=== PATIENT | female | born 1960 | race Caucasian/White ===

== ENCOUNTER 2016-05-14 16:23 | Emergency (ER) | payer OTHER ==
[~2016-05-14] VITALS: Ht 154.9 cm; Wt 83.1 kg
[~2016-05-14 16:23] MED LIST: ALBUAER3 INH; AMLO2.5T PO; CARV12.52 PO; HYDR-3533 PO; LORA-373 PO; MACR100C2 PO; METH750T PO; NAPR220T95 PO; PROZ20CA11 PO
[2016-05-14 16:29] VITALS: BP 173/110; PULSE 90; RESP 16; TEMP 98.1; O2SAT 99
--- NOTE | 2016-05-14 17:26 | PD ---
HPI Chief Complaint: Nosebleed Time Seen by Provider: 16:37 Travel History International Travel<30 days: No Contact w/Intl Traveler<30days: No Traveled to known affect area: No History of Present Illness HPI The patient is a 56-year-old female who presents to the emergency department for nose bleed. The patient states her nose started bleeding earlier today out of the right naris. The patient was unable to control her bleeding with direct pressure and presents emergency department for persistent bleeding. The patient does have a prior history of epistaxis with one previous episode of nasal packing. She also has a history of thrombocytopenia and was followed by a manager furniture, but was never placed on medications. Her last platelet count was approximately 100,000. She denies any bruising elsewhere or bleeding from the gums. She denies any direct trauma to the nose and denies picking the nose prior to the bleeding. She denies any dizziness, lightheadedness, but does note mild anxiety. She also states that elevated blood pressure tends to be a precipitating factor for her nosebleeds. PFSH Past Medical History Hx Anticoagulant Therapy: No Anemia: Yes (Required platelet tx) Arthritis: Yes Asthma: Yes Anxiety: Yes Cancer: Yes (Cervical) Cardiac Catheterization: Yes (2016) Cardiovascular Problems: Yes (htn on meds) High Cholesterol: Yes Chest Pain: Yes COPD: Yes Coronary Artery Disease: Yes Diminished Hearing: No Gastrointestinal Disorders: Yes (recent colonoscopy and endoscopy) GERD: Yes Genitourinary: Yes (hx of kidney infection) Hypertension: Yes Respiratory: Yes (COPD) Immunizations Current: Yes Pneumonia: Yes Sleep Apnea: Yes (NO CPAP USE) Menopausal: Yes : 2 Para: 2 Dilation and Curettage (D&C): Yes Tubal Ligation: Yes Past Surgical History Section: Yes (X's 2) Cholecystectomy: Yes Eye Surgery: Yes (BILATERAL LASIK: 2016) Gynecologic Surgery: Yes (Cervical CA) Hysterectomy: Yes (Partial) Oral Surgery: Yes (fess surgery of the nose) Tonsillectomy: Yes Other Surgery: Yes (Cyst on neck, bone marrow bx, FESS SURGERY OF NOSE) Social History Alcohol Use: Yes (RARELY) Tobacco Use: No (QUIT: 2006) Substance Use: No Allergies-Medications (Allergen,Severity, Reaction): Coded Allergies: Amlodipine (Verified Allergy, Severe, Hives, 05/14/16) Latex (Verified Allergy, Severe, Rash, 05/14/16) Sulfa (Verified Adverse Reaction, Severe, Vomiting, cramps, 05/14/16) Reported Meds & Prescriptions Reported Meds & Active Scripts Active Reported Methocarbamol 750 Mg Tab 750 Mg PO TID Aleve (Naproxen Sodium) 220 Mg Tab 220 Mg PO BID PRN Amlodipine (Amlodipine Besylate) 2.5 Mg Tab 2.5 Mg PO DAILY Proair Hfa 8.5 GM Inh (Albuterol Sulfate) 90 Mcg/Act Aer 2 Puff INH Q4HR PRN 108 mcg/actuation Lortab (Hydrocodone-Acetaminophen) 5-325 Mg Tab 1 Tab PO Q6H PRN Prozac (Fluoxetine HCl) 20 Mg Cap 20 Mg PO DAILY Lorazepam 0.5 Mg Tab 0.5 Mg PO Q6H PRN Carvedilol 12.5 Mg Tab 12.5 Mg PO DAILY Review of Systems Except as stated in HPI: all other systems reviewed are Neg HENT: Positive: Nosebleed, No: Lightheadedness Cardiovascular: No: Palpitations, Tachycardia Respiratory: No: Shortness of Breath Gastrointestinal: No: Nausea, Vomiting Neurologic: No: Dizziness Physical Exam Narrative GENERAL: Awake, alert, nontoxic-appearing 56-year-old female who appears her stated age and is in no acute respiratory distress. SKIN: Warm and dry. HEAD: Atraumatic. Normocephalic. EYES: Pupils equal and round. No scleral icterus. No injection or drainage. ENT: There is bleeding out of the right nostril, unable to identify the area of bleeding. Visible dry blood in the posterior oropharynx but no visible active bleeding in the posterior oropharynx. NECK: Trachea midline. No JVD. CARDIOVASCULAR: Regular rate and rhythm. No murmur appreciated. RESPIRATORY: No accessory muscle use. Clear to auscultation. Breath sounds equal bilaterally. MUSCULOSKELETAL: No obvious deformities. No clubbing. No cyanosis. No edema. NEUROLOGICAL: Awake and alert. No obvious cranial nerve deficits. Motor grossly within normal limits. Normal speech. PSYCHIATRIC: Appropriate mood and affect; insight and judgment normal. Data Data Last Documented VS Vital Signs Date Time Temp Pulse Resp B/P Pulse Ox O2 Delivery O2 Flow Rate FiO2 05/14/16 18:17 78 20 127/78 96 05/14/16 16:29 98.1 Orders Clonidine (Catapres) (05/14/16 17:30) Phenylephrine 1% Diaz Spr (Neosynephrine (05/14/16 17:45) Phenylephrine 0.5% Diaz Spr (Neosynephrin (05/14/16 17:45) MDM Medical Decision Making Medical Screen Exam Complete: Yes Emergency Medical Condition: Yes Medical Record Reviewed: Yes Differential Diagnosis Differential diagnosis includes epistaxis, anterior nosebleed, posterior nosebleed, hypertension, thrombocytopenia, septal perforation, coagulopathy. Narrative Course The patient was advised to blow her nose and then direct pressure was applied for 20 minutes using 2 tongue depressors that were taped together. The patient' s nosebleed was reevaluated 20 minutes later, she had mild bleeding prior to the 20 minutes, however, after the initial pressure 20 minutes, there is no visible bleeding. The patient was then monitored once again in the emergency department. She was advised to apply ice to the roof of the mouth. The patient 's blood pressure was elevated, 170s over 100s, therefore, patient was administered clonidine 0.1 mg orally. The patient's blood pressure came down 127/81. The patient continued to have bleeding, therefore, she blew her nose once again, Jeff-Synephrine was sprayed into the right nostril, direct pressure was held for another 20 minutes. Upon reevaluation there is no further bleeding. The patient was then evaluated for another 20 minutes and there is no further bleeding. The patient be discharged home. She is advised to hold direct pressure for 20 minutes apply ice to the affected area. Bleeding returns and if that is unable to stop the bleeding, to return to the emergency department. The patient agrees and understands. Diagnosis Primary Impression: Anterior epistaxis Patient Instructions: General Instructions Additional Instructions: If bleeding recurs, apply direct pressure for 20 minutes, if that does not stop the bleeding, return to the emergency department. Follow-up with her primary physician. Continue current medications at home as previously directed. Med/Other Pt SpecificInfo: No Change to Meds Disposition: 01 DISCHARGE HOME Condition: Stable Boni Loya MD May 14, 2016 17:26
[2016-05-14 17:29] VITALS: BP 171/112; PULSE 96; RESP 20; O2SAT 96
[2016-05-14] MEDS ORDERED: cloNIDine HCL 0.1 MG TAB PO ONE (17:30)
[2016-05-14] MEDS ORDERED: PHENYLEPHRINE HCL 1% NASAL SPRAY 15 ML BTL NASAL ONE (17:45)
[2016-05-14] MEDS ORDERED: PHENYLEPHRINE HCL 0.5% NASAL SPRAY 15 ML BTL NASAL ONE (17:45)
[2016-05-14 18:17] VITALS: BP 127/78; PULSE 78; RESP 20; O2SAT 96
== END 2016-05-14 18:42 | disposition home or self-care (01) ==
LOC: PHED 16:23
DX: R04.0 Epistaxis (principal); I10 Essential (primary) hypertension; E78.00 Pure hypercholesterolemia, unspecified; J44.9 Chronic obstructive pulmonary disease, unspecified
CPT/HCPCS: 99283

== ENCOUNTER 2016-07-30 02:11 | Emergency (ER) | payer OTHER ==
[~2016-07-30] VITALS: Ht 154.9 cm; Wt 85.3 kg
[~2016-07-30 02:11] MED LIST changes: -MACR100C2 PO
[2016-07-30 02:16] VITALS: BP 142/97; PULSE 82; TEMP 98.3; O2SAT 98
[2016-07-30 03:00] VITALS: BP 138/79; PULSE 65; RESP 20; O2SAT 98
[2016-07-30] MEDS ORDERED: ASPIRIN 81 MG CHEW TAB PO ONE (03:30)
[2016-07-30] MEDS ORDERED: SODIUM CHLORIDE 0.9% FLUSH 10 ML FLUSH IVF PRN (03:30)
[2016-07-30] MEDS ORDERED: PANTOPRAZOLE SODIUM 40 MG VIAL IV PUSH ONE (03:30)
[2016-07-30 03:53] LABS: BASOPHIL % 0.2 % (0.0-2.0); EOSINOPHIL % 0.3 % (0.0-4.0); HEMATOCRIT 28.5 % (35.0-46.0); HEMO FLAGS DIFF FINAL; LYMPH % 30.3 % (9.0-44.0); LYMPHOCYTE # 1.6 TH/MM3 (1.0-4.8); MEAN CELL VOLUME 91.2 FL (80.0-100.0); MEAN CORPUSCULAR HEMOGLOBIN 30.2 PG (27.0-34.0); MEAN CORPUSCULAR HGB CONC 33.1 % (32.0-36.0); MONO % 15.7 % (0.0-8.0); NEUT % 53.5 % (16.0-70.0); PLATELET COUNT 179 TH/MM3 (150-450); RED BLOOD COUNT 3.12 MIL/MM3 (4.00-5.30); RED CELL DISTRIBUTION WIDTH 22.3 % (11.6-17.2); WHITE BLOOD COUNT 5.4 TH/MM3 (4.0-11.0)
--- NOTE | 2016-07-30 03:56 | RADHPO ---
EXAM DATE/TIME: 07/30/2016 03:48 [facility] COMPARISON: CHEST SINGLE AP, April 16, 2016, 6:09. INDICATIONS : Chest pain for 5 hours MEDICAL HISTORY : Chronic obstructive pulmonary disease. SURGICAL HISTORY : None. ENCOUNTER: Initial ACUITY: 1 day PAIN SCORE: 7/10 LOCATION: Left chest FINDINGS: A single view of the chest demonstrates the lungs to be symmetrically aerated without evidence of mas s, infiltrate or effusion. The cardiomediastinal contours are unremarkable. Osseous structures are intact. CONCLUSION: No acute disease. Mt Vance MD on July 30, 2016 at 3:55 Board Certified Radiologist. This report was verified electronically.
[2016-07-30 04:00] VITALS: BP 140/77; PULSE 66; RESP 20; O2SAT 98
[2016-07-30 04:00] LABS: CHLORIDE 104 MEQ/L (98-107); POTASSIUM 3.9 MEQ/L (3.5-5.1); SODIUM (NA) 141 MEQ/L (136-145)
[2016-07-30 04:01] VITALS: BP_SYST 140; BP_DIAS 76; BP_DIAS 77; BP_DIAS 82; PULSE 59; PULSE 82; RESP 20; O2SAT 98
--- NOTE | 2016-07-30 04:01 | PD ---
HPI Chief Complaint: Chest Pain Time Seen by Provider: 03:28 Travel History International Travel<30 days: No Contact w/Intl Traveler<30days: No Traveled to known affect area: No History of Present Illness HPI 56-year-old female presents to the emergency department by private transportation for complaint of 3 hours of chest pain prior to arrival to the emergency department. Patient states at home her pain was 7-8/10 in intensity currently is 5/8 intensity. Patient also noted some referred pain to her left hand. Patient reportedly had an abnormal 12/2015 and underwent cardiac catheterization by Dr. Tello. With reportedly normal coronary vessels. Patient does have hypertension and dyslipidemia as well as history of lupus and thrombocytopenia. Patient is a nonsmoker. No report of diabetes. No report of family history of premature onset heart disease. Patient took no medications prior to arrival to the emergency department. Patient unable to identify exacerbating or alleviating factors. PFSH Past Medical History Narrative Medical Anemia arthritis asthma hypertension dyslipidemia thrombocytopenia and lupus cervical cancer status post cervical ablation sleep apnea tube ligation Hx Anticoagulant Therapy: No Anemia: Yes (Required platelet tx) Arthritis: Yes Asthma: Yes Anxiety: Yes Cancer: Yes (Cervical) Cardiac Catheterization: Yes (2015) Cardiovascular Problems: Yes (htn on meds) High Cholesterol: Yes Chest Pain: Yes COPD: Yes Coronary Artery Disease: Yes Diminished Hearing: No Gastrointestinal Disorders: Yes (recent colonoscopy and endoscopy) GERD: Yes Genitourinary: Yes (hx of kidney infection) Hypertension: Yes Respiratory: Yes (COPD) Immunizations Current: Yes Pneumonia: Yes Sleep Apnea: Yes (NO CPAP USE) Menopausal: Yes : 2 Para: 2 Dilation and Curettage (D&C): Yes Tubal Ligation: Yes Past Surgical History Section: Yes (X's 2) Cholecystectomy: Yes Eye Surgery: Yes (BILATERAL LASIK: 2016) Gynecologic Surgery: Yes (Cervical CA) Hysterectomy: Yes (Partial) Oral Surgery: Yes (fess surgery of the nose) Tonsillectomy: Yes Other Surgery: Yes (Cyst on neck, bone marrow bx, FESS SURGERY OF NOSE) Social History Alcohol Use: Yes (RARELY) Tobacco Use: No (QUIT: 2005) Substance Use: No Allergies-Medications (Allergen,Severity, Reaction): Coded Allergies: Amlodipine (Verified Allergy, Severe, Hives, 07/30/16) PATIENT STATES SHE IS NOT ALLERGIC-TAKES THIS MED DAILY Latex (Verified Allergy, Severe, Rash, 07/30/16) Sulfa (Verified Adverse Reaction, Severe, Vomiting, cramps, 07/30/16) Reported Meds & Prescriptions Reported Meds & Active Scripts Active Reported Melatonin 5 Mg Tab 5 Mg PO HS Folate (Folic Acid) 1 Mg Tab 1 Mg PO DAILY Methotrexate 2.5 Mg Tab 2.5 Mg PO 6 DAYS A WEEK Prednisone 2.5 Mg Tab 2.5 Mg PO BID Losartan-Hydrochlorothiazide 100-25 Mg Tab 1 Tab PO DAILY Methocarbamol 750 Mg Tab 750 Mg PO TID Aleve (Naproxen Sodium) 220 Mg Tab 220 Mg PO BID PRN Amlodipine (Amlodipine Besylate) 2.5 Mg Tab 2.5 Mg PO DAILY Proair Hfa 8.5 GM Inh (Albuterol Sulfate) 90 Mcg/Act Aer 2 Puff INH Q4HR PRN 108 mcg/actuation Carvedilol 12.5 Mg Tab 3.125 Mg PO DAILY Review of Systems Except as stated in HPI: all other systems reviewed are Neg Eyes: No: Visual changes HENT: No: Headaches, Neck Pain Cardiovascular: Positive: Chest Pain or Discomfort Respiratory: No: Shortness of Breath Gastrointestinal: No: Vomiting, Abdominal Pain Genitourinary: No: Dysuria, Flank Pain Musculoskeletal: No: Myalgias, Arthralgias Skin: No Rash Neurologic: No: Weakness Psychiatric: No: Anxiety Hematologic/Lymphatic: No: Easy Bruising Physical Exam Narrative GENERAL: Well-developed well-nourished female in no acute distress no respiratory distress SKIN: Warm and dry. HEAD: Normocephalic. EYES: No scleral icterus. No injection or drainage. NECK: Supple, trachea midline. No JVD or lymphadenopathy. CARDIOVASCULAR: Regular rate and rhythm without murmurs, gallops, or rubs. Chest wall: Tender to palpation, no ecchymosis no induration no erythema no increased warmth no rib point tenderness no vesicular rash. RESPIRATORY: Breath sounds equal bilaterally. No accessory muscle use. GASTROINTESTINAL: Abdomen soft, non-tender, nondistended. MUSCULOSKELETAL: No cyanosis, or edema. BACK: Nontender without obvious deformity. No CVA tenderness. Data Data Last Documented VS Vital Signs Date Time Temp Pulse Resp B/P Pulse Ox O2 Delivery O2 Flow Rate FiO2 07/30/16 04:39 59 20 98 07/30/16 04:01 140/76 2 07/30/16 04:01 Nasal Cannula 07/30/16 02:16 98.3 Orders Basic Metabolic Panel (Bmp) (07/30/16 03:28) Ckmb (Isoenzyme) Profile (07/30/16 03:28) Complete Blood Count With Diff (07/30/16 03:28) Magnesium (Mg) (07/30/16 03:28) Prothrombin Time / Inr (Pt) (07/30/16 03:28) Act Partial Throm Time (Ptt) (07/30/16 03:28) Troponin I (07/30/16 03:28) Chest, Single Ap (07/30/16 03:28) Ecg Monitoring (07/30/16 03:28) Bilateral Bp Monitoring (07/30/16 03:28) Iv Access Insert/Monitor (07/30/16 03:28) Oximetry (07/30/16 03:28) Oxygen Administration (07/30/16 03:28) Aspirin Chew (Aspirin Chew) (07/30/16 03:30) Sodium Chloride 0.9% Flush (Ns Flush) (07/30/16 03:30) Pantoprazole Inj (Protonix Inj) (07/30/16 03:30) D-Dimer (07/30/16 03:45) Ct Pulmonary Angiogram (07/30/16 ) Iohexol 350 Inj (Omnipaque 350 Inj) (07/30/16 05:18) Labs Laboratory Tests Test 07/30/16 03:45 White Blood Count 5.4 TH/MM3 Red Blood Count 3.12 MIL/MM3 Hemoglobin 9.4 GM/DL Hematocrit 28.5 % Mean Corpuscular Volume 91.2 FL Mean Corpuscular Hemoglobin 30.2 PG Mean Corpuscular Hemoglobin 33.1 % Concent Red Cell Distribution Width 22.3 % Platelet Count 179 TH/MM3 Mean Platelet Volume 7.8 FL Neutrophils (%) (Auto) 53.5 % Lymphocytes (%) (Auto) 30.3 % Monocytes (%) (Auto) 15.7 % Eosinophils (%) (Auto) 0.3 % Basophils (%) (Auto) 0.2 % Neutrophils # (Auto) 3.0 TH/MM3 Lymphocytes # (Auto) 1.6 TH/MM3 Monocytes # (Auto) 0.8 TH/MM3 Eosinophils # (Auto) 0.0 TH/MM3 Basophils # (Auto) 0.0 TH/MM3 CBC Comment DIFF FINAL Differential Comment Prothrombin Time 9.7 SEC Prothromb Time International 0.9 RATIO Ratio Activated Partial 22.2 SEC Thromboplast Time D-Dimer Quantitative (PE/DVT) 3.43 MG/L FEU Sodium Level 141 MEQ/L Potassium Level 3.9 MEQ/L Chloride Level 104 MEQ/L Carbon Dioxide Level 29.2 MEQ/L Anion Gap 8 MEQ/L Blood Urea Nitrogen 20 MG/DL Creatinine 0.71 MG/DL Estimat Glomerular Filtration 85 ML/MIN Rate Random Glucose 111 MG/DL Calcium Level 8.6 MG/DL Magnesium Level 2.4 MG/DL Total Creatine Kinase 33 U/L Troponin I LESS THAN 0.02 NG/ML MDM Medical Decision Making Medical Screen Exam Complete: Yes Emergency Medical Condition: Yes Medical Record Reviewed: Yes Interpretation(s) Last Impressions Chest X-Ray 07/30/16 0328 Signed Impressions: Service Date/Time: July 03:48 - CONCLUSION: No acute disease. Mt Vance MD EKG: Normal sinus rhythm rate 67 incomplete right bundle branch block nonspecific anterior septal/septal T wave changes; no ST elevation; EKG unchanged from 04/16/16 Vital Signs Date Time Temp Pulse Resp B/P Pulse Ox O2 Delivery O2 Flow Rate FiO2 07/30/16 04:01 59 20 140/77 98 Nasal Cannula 2 140/82 07/30/16 02:16 98.3 82 142/97 98 CK: 33, not elevated; troponin I: less than 0.02, not elevated CT Pulmonary angiogram: no PE FINDINGS: PULMONARY ARTERIES: No filling defects are seen in the pulmonary arteries through the segmental level. LUNGS: There is no consolidation or pneumothorax . No concerning pulmonary nodule is visualized. PLEURAE: There is no pleural thickening or pleural effusion. MEDIASTINUM: There is good visualization of the great vessels of the middle mediastinum. No evidence of mediastinal or hilar adenopathy/mass. MUSCULOSKELETAL: Within normal limits for patient age. MISCELLANEOUS: The visualized upper abdominal organs demonstrate no acute abnormality. CONCLUSION: Normal examination. Mt Vance MD on July 30, 2016 at 5:41 Board Certified Radiologist. This report was verified electronically. Differential Diagnosis Chest pain, atypical chest pain, ACS, myocardial infarction, esophageal spasm, PE, biliary colic Narrative Course IV access obtained EKG performed which reveals incomplete right bundle branch block no acute ST elevation nonspecific T-wave inversion septally; review of medical records indicates patient underwent 12/16/[address] Tello which revealed no coronary vessel disease. Patient did receive aspirin 162 mg by mouth as well as Protonix 40 mg. Specimens collected and sent for resulting. EKG shows no acute injury pattern change; CBC with automated differential shows anemia hemoglobin 9.4 however patient with history of thrombocytopenia, platelet count is in normal range and total white cell count is also within normal limits; Coagulation studies also within normal limits. At 5:20 AM patient has returned from CT; results pending At 5:56 AM patient feels she feels clinically improved his pain is resolved patient has been ambulatory to the bathroom without symptoms; CT pulmonary injury gram is negative for acute process and negative for pulmonary embolism. Patient is stable at this time for outpatient management and is desirous of being discharged to home. Critical Care Narrative Aggregate critical care time was 35 minutes. Time to perform other separately billable procedures was not included in the critical care time. My time did not include minutes spent treating any other patients simultaneously or on activities that did not directly contribute to the patient's treatment. The services I provided to this patient were to treat and/or prevent clinically significant deterioration that could result in: Myocardial infarction, arrhythmia, cardiogenic shock, failure I provided critical care services requiring my management, as noted below: Chart data review, documentation time, medication orders and management, vital sign assessments/reviewing monitor data, ordering and reviewing lab tests, ordering and interpreting/reviewing x-rays and diagnostic studies, care of the patient and discussion of the patient with the admitting physicians. Diagnosis Primary Impression: Atypical chest pain Referrals: Primary Care Physician call for appointment Patient Instructions: General Instructions Additional Instructions: Increase fluid hydration Take acetaminophen/Tylenol as needed for fever 100.4F or greater or for pain Follow-up with your primary care provider call office in a.m. to schedule follow -up appointment Return to the emergency department for any concerns or change in condition Med/Other Pt SpecificInfo: No Change to Meds Disposition: 01 DISCHARGE HOME Condition: Stable Smitha Leigh MD Jul 30, 2016 04:01
[2016-07-30 04:04] LABS: ANION GAP 8 MEQ/L (5-15); BICARBONATE 29.2 MEQ/L (21.0-32.0); BLOOD UREA NITROGEN 20 MG/DL (7-18); MAGNESIUM 2.4 MG/DL (1.5-2.5)
[2016-07-30 04:05] LABS: APTT (PATIENT) 22.2 SEC (24.3-30.1); INTERNATIONAL NORMALIZED RATIO 0.9 RATIO; PROTHROMBIN TIME - PATIENT 9.7 SEC (9.8-11.6)
[2016-07-30 04:07] LABS: GLOMERULAR FILTRATION RATE 85 ML/MIN (>89)
[2016-07-30 04:17] LABS: CREATINE KINASE 33 U/L (26-192)
[2016-07-30] MEDS ORDERED: METH2.5T PO (04:19)
[2016-07-30] MEDS ORDERED: PRED2.5T PO (04:19)
[2016-07-30] MEDS ORDERED: LOSA100T2 PO (04:19)
[2016-07-30] MEDS ORDERED: MELA5TAB15 PO (04:37)
[2016-07-30] MEDS ORDERED: FOLI1TAB4 PO (04:37)
[2016-07-30 05:00] VITALS: BP 140/81; PULSE 68; RESP 20
[2016-07-30] MEDS ORDERED: IOHEXOL 350 MG/ML 10 ML VIAL (for RAD DIAG) IV ONE (05:18)
--- NOTE | 2016-07-30 05:43 | RADHPO ---
EXAM DATE/TIME: 07/30/2016 05:03 [facility] COMPARISON: CT PULMONARY ANGIOGRAM, December 15, 2015, 18:52. INDICATIONS : Left side chest pain. IV CONTRAST: 65 cc Omnipaque 350 (iohexol) IV RADIATION DOSE: 20.98 CTDIvol (mGy) MEDICAL HISTORY : Hypertension. Chronic obstructive pulmonary disease. Coronary artery disease. SURGICAL HISTORY : None. ENCOUNTER: Initial ACUITY: 1 day PAIN SCALE: 7/10 LOCATION: Left chest TECHNIQUE: Volumetric scanning of the chest was performed using a pulmonary embolism protocol MIP images were re constructed. Using automated exposure control and adjustment of the mA and/or kV according to patien t size, radiation dose was kept as low as reasonably achievable to obtain optimal diagnostic quality images. FINDINGS: PULMONARY ARTERIES: No filling defects are seen in the pulmonary arteries through the segmental level. LUNGS: There is no consolidation or pneumothorax . No concerning pulmonary nodule is visualized. PLEURAE: There is no pleural thickening or pleural effusion. MEDIASTINUM: There is good visualization of the great vessels of the middle mediastinum. No evidence of mediastin al or hilar adenopathy/mass. MUSCULOSKELETAL: Within normal limits for patient age. MISCELLANEOUS: The visualized upper abdominal organs demonstrate no acute abnormality. CONCLUSION: Normal examination. Mt Vance MD on July 30, 2016 at 5:41 Board Certified Radiologist. This report was verified electronically.
[2016-07-30 06:43] VITALS: BP 124/73
--- NOTE | 2016-07-30 14:40 | EKG ---
Date Performed: 07/30/2016 Time Performed: 02:27:10 PTAGE: 56 years EKG: Sinus rhythm . Incomplete RBBB Anteroseptal T wave changes are nonspecific Borderline ECG Compared to prior tracin g no significant change PREVIOUS TRACING : 04/16/2016 05.56 DOCTOR: Al Rawls Interpretating Date/Time 07/30/2016 14:37:52
== END 2016-07-30 06:47 | disposition home or self-care (01) ==
LOC: PHED 02:11
DX: R07.89 Other chest pain (principal); I10 Essential (primary) hypertension; E78.00 Pure hypercholesterolemia, unspecified; J44.9 Chronic obstructive pulmonary disease, unspecified; Z85.41 Personal history of malignant neoplasm of cervix uteri; J45.909 Unspecified asthma, uncomplicated; M19.90 Unspecified osteoarthritis, unspecified site; M32.9 Systemic lupus erythematosus, unspecified
CPT/HCPCS: 71010; 71275; 80048; 82550; 83735; 84484; 85025; 85379; 85610; 85730; 93005; 96374; 99291; C9113; Q9967

== ENCOUNTER 2016-08-15 12:22 | Emergency (ER) | payer OTHER ==
[~2016-08-15] VITALS: Ht 154.9 cm; Wt 84.5 kg
[~2016-08-15 12:22] MED LIST changes: +FOLI1TAB4 PO; -HYDR-3533 PO; -LORA-373 PO; +LOSA100T2 PO; +MELA5TAB15 PO; +METH2.5T PO; +PRED2.5T PO; -PROZ20CA11 PO
[2016-08-15 12:26] VITALS: BP 156/102; PULSE 95; RESP 18; TEMP 97.8; O2SAT 98
[2016-08-15] MEDS ORDERED: AMLO5TAB2 PO (12:44)
[2016-08-15] MEDS ORDERED: DOXY100C PO (12:44)
[2016-08-15] MEDS ORDERED: METH4TAB6 PO (12:44)
[2016-08-15] MEDS ORDERED: [UNRECOGNIZED DRUG - CODE] (12:44)
[2016-08-15] MEDS ORDERED: [UNRECOGNIZED DRUG - OTHER] CHEW (12:44)
--- NOTE | 2016-08-15 12:57 | PD ---
HPI Chief Complaint: Respiratory Symptoms Time Seen by Provider: 12:45 Travel History International Travel<30 days: No Contact w/Intl Traveler<30days: No Traveled to known affect area: No History of Present Illness HPI This patient complains of cough and congestion and wheezing. She has history of COPD and uses inhalers at home. Quit smoking 12 years ago. She has a mild chronic cough but this cough is now producing yellow phlegm. She saw her doctor on Wednesday and is chcf through her doxycycline prescription. She takes prednisone 10 mg chronically for her rheumatoid arthritis. Severity is moderate. No alleviating factors. Duration one week PFSH Past Medical History Hx Anticoagulant Therapy: No Anemia: Yes Arthritis: Yes Asthma: Yes Anxiety: Yes Cancer: Yes Cardiac Catheterization: Yes (2015) Cardiovascular Problems: Yes High Cholesterol: Yes Chest Pain: Yes COPD: Yes Coronary Artery Disease: Yes Diminished Hearing: No Gastrointestinal Disorders: Yes GERD: Yes Genitourinary: Yes Hypertension: Yes Respiratory: Yes (COPD) Immunizations Current: Yes Pneumonia: Yes Sleep Apnea: Yes (NO CPAP USE) Tetanus Vaccination: < 5 Years ?: Not Menopausal: Yes : 2 Para: 2 Dilation and Curettage (D&C): Yes Tubal Ligation: Yes Past Surgical History Section: Yes (X's 2) Cholecystectomy: Yes Eye Surgery: Yes (BILATERAL LASIK: 2015) Gynecologic Surgery: Yes (CERVICAL CA) Hysterectomy: Yes (Partial) Oral Surgery: Yes (NASAL SURGERY) Tonsillectomy: Yes Other Surgery: Yes (CYST ON NECK) Social History Alcohol Use: No Tobacco Use: No (QUIT: 2005) Substance Use: No Allergies-Medications (Allergen,Severity, Reaction): Coded Allergies: Amlodipine (Verified Allergy, Severe, Hives, 08/15/16) PATIENT STATES SHE IS NOT ALLERGIC-TAKES THIS MED DAILY Latex (Verified Allergy, Severe, Rash, 08/15/16) Sulfa (Verified Adverse Reaction, Severe, Vomiting, cramps, 08/15/16) Reported Meds & Prescriptions Reported Meds & Active Scripts Active Reported C 1000 (Ascorbic Acid) 1,000 Mg Tab D3 Kids (Cholecalciferol) 400 Unit Chew 400 Units CHEW DAILY Methylprednisolone 4 Mg Tab 4 Mg PO DAILY Amlodipine (Amlodipine Besylate) 5 Mg Tab 5 Mg PO DAILY Doxycycline Hyclate 100 Mg Cap 100 Mg PO DAILY Melatonin 5 Mg Tab 5 Mg PO HS Folate (Folic Acid) 1 Mg Tab 1 Mg PO DAILY Methotrexate 2.5 Mg Tab 2.5 Mg PO 6 DAYS A WEEK Prednisone 2.5 Mg Tab 2.5 Mg PO BID Losartan-Hydrochlorothiazide 100-25 Mg Tab 1 Tab PO DAILY Aleve (Naproxen Sodium) 220 Mg Tab 220 Mg PO BID PRN Proair Hfa 8.5 GM Inh (Albuterol Sulfate) 90 Mcg/Act Aer 2 Puff INH Q4HR PRN 108 mcg/actuation Carvedilol 12.5 Mg Tab 3.125 Mg PO DAILY Review of Systems General / Constitutional: No: Fever Eyes: No: Visual changes HENT: No: Headaches Cardiovascular: No: Chest Pain or Discomfort Respiratory: Positive: Cough, Wheezing Gastrointestinal: No: Abdominal Pain Genitourinary: No: Dysuria Musculoskeletal: Positive: Arthralgias, No: Pain Skin: No Rash Neurologic: No: Weakness Psychiatric: No: Depression Endocrine: No: Polydipsia Hematologic/Lymphatic: No: Easy Bruising Physical Exam Narrative GENERAL: Well-nourished, well-developed patient in no apparent distress. SKIN: Focused skin assessment reveals no rash and nodules. Skin is Warm and dry. HEAD: Atraumatic. Normocephalic. EYES: Pupils equal and round. No scleral icterus. No injection or drainage. ENT: No nasal bleeding or discharge. Mucous membranes pink and moist. NECK: Trachea midline. No JVD. CARDIOVASCULAR: Regular rate and rhythm. No murmur appreciated. RESPIRATORY: No accessory muscle use. Diffuse expiratory wheezing and rhonchi. Breath sounds equal bilaterally. GASTROINTESTINAL: Abdomen soft, non-tender, nondistended. Hepatic and splenic margins not palpable. MUSCULOSKELETAL: No obvious deformities. No clubbing. No cyanosis. No edema. NEUROLOGICAL: Awake and alert. No obvious cranial nerve deficits. Motor grossly within normal limits. Normal speech. PSYCHIATRIC: Appropriate mood and affect; insight and judgment normal. Data Data Last Documented VS Vital Signs Date Time Temp Pulse Resp B/P Pulse Ox O2 Delivery O2 Flow Rate FiO2 08/15/16 13:05 98 21 08/15/16 12:26 97.8 95 18 156/102 Orders Albuterol-Ipratropium Neb (Duoneb Neb) (08/15/16 13:00) Albuterol-Ipratropium Neb (Duoneb Neb) (08/15/16 13:00) MDM Medical Decision Making Medical Screen Exam Complete: Yes Emergency Medical Condition: Yes Medical Record Reviewed: Yes Differential Diagnosis COPD, bronchitis, pneumonia Narrative Course I have reviewed the patient's electronic medical record. Patient was seen here 2 weeks ago for atypical chest pain This patient's presentation is consistent with an acute viral bronchitis or exacerbation of COPD I gave her 2 nebulizer treatments She is currently on antibiotics and daily prednisone She has inhalers to use and she has quit smoking Her saturations are excellent, 98% on room air. On recheck she feels improved Diagnosis Primary Impression: COPD with exacerbation Additional Instructions: The patient was advised to follow up with their physician and return if they worsen. Med/Other Pt SpecificInfo: Other Disposition: 01 DISCHARGE HOME Condition: Stable Lane Porter MD Aug 15, 2016 12:57
[2016-08-15] MEDS ORDERED: RESP: ALBUTEROL 2.5 MG/IPRATROPIUM 0.5 MG NEB (SCH) NEB ONE ×2 (13:00)
[2016-08-15 13:05] VITALS: O2SAT 98
== END 2016-08-15 13:55 | disposition home or self-care (01) ==
LOC: PHED 12:22
DX: J44.1 Chronic obstructive pulmonary disease with (acute) exacerbation (principal); J45.909 Unspecified asthma, uncomplicated; D64.9 Anemia, unspecified; I25.10 Atherosclerotic heart disease of native coronary artery without angina pectoris; K21.9 Gastro-esophageal reflux disease without esophagitis; M06.9 Rheumatoid arthritis, unspecified; I10 Essential (primary) hypertension; F41.9 Anxiety disorder, unspecified; E78.00 Pure hypercholesterolemia, unspecified
CPT/HCPCS: 94640; 94664; 99283

== ENCOUNTER 2016-11-16 06:51 | Inpatient (IN) | payer OTHER, MEDICARE ==
[~2016-11-16] VITALS: Ht 154.9 cm; Wt 86.5 kg
[~2016-11-16 06:51] MED LIST changes: -AMLO2.5T PO; +AMLO5TAB2 PO; +DOXY100C PO; +METH4TAB6 PO; -METH750T PO; +[UNRECOGNIZED DRUG - CODE]; +[UNRECOGNIZED DRUG - OTHER] CHEW
[2016-11-16 08:00] VITALS: BP 137/84; PULSE 68; RESP 18; TEMP 96.1; O2SAT 97
[2016-11-16] MEDS ORDERED: SODIUM CHLORIDE 0.9% FLUSH 10 ML FLUSH IVF PRN (08:00)
[2016-11-16] MEDS ORDERED: ALTEPLASE RECOMBINANT 2 MG VIAL IVF PRN (08:00)
[2016-11-16] MEDS ORDERED: ONDANSETRON INJ 8 MG in DEXTROSE 5% IN WATER INJ 50 ML IV PRN ×2 (09:00)
[2016-11-16] MEDS ORDERED: FOLI1TAB6 PO (09:04)
[2016-11-16 10:17] LABS: HEMATOCRIT 25.8 % (35.0-46.0); MEAN CELL VOLUME 89.5 FL (80.0-100.0); MEAN CORPUSCULAR HEMOGLOBIN 30.1 PG (27.0-34.0); MEAN CORPUSCULAR HGB CONC 33.7 % (32.0-36.0); PLATELET COUNT 67 TH/MM3 (150-450); RED BLOOD COUNT 2.88 MIL/MM3 (4.00-5.30); RED CELL DISTRIBUTION WIDTH 25.1 % (11.6-17.2); WHITE BLOOD COUNT 5.5 TH/MM3 (4.0-11.0)
[2016-11-16 10:25] LABS: HEMO FLAGS AUTO DIFF
[2016-11-16 10:26] LABS: ANION GAP 9 MEQ/L (5-15); AST (GOT) 39 U/L (15-37); BICARBONATE 26.6 MEQ/L (21.0-32.0); BLOOD UREA NITROGEN 13 MG/DL (7-18); CHLORIDE 104 MEQ/L (98-107); GLOMERULAR FILTRATION RATE 87 ML/MIN (>89); POTASSIUM 3.5 MEQ/L (3.5-5.1); SODIUM (NA) 140 MEQ/L (136-145)
[2016-11-16 10:28] LABS: ALT (GPT) 86 U/L (10-53)
[2016-11-16 10:31] LABS: ALKALINE PHOSPHATASE 75 U/L (45-117); TOTAL BILIRUBIN ADULT 1.2 MG/DL (0.2-1.0)
[2016-11-16 11:03] LABS: BANDS 4 % (0-6); BASOPHILS 1 % (0-2); EOSINOPHILS 2 % (0-4); NEUTROPHIL # MANUAL DIFF 4.7 TH/MM3 (1.8-7.7); POLYS (SEG NEUTROPHILS) 82 % (16-70); WBC DIFF SAMPLE 100
[2016-11-16 11:04] LABS: OVALOCYTES 1+ (NORMAL); PLATELET ESTIMATE SMEAR LOW (NORMAL); PLATELET MORPHOLOGY NORMAL (NORMAL); POLYCHROMASIA 2.7 % (0.0-1.9); SCAN/DIFF FINAL DIFF MANUAL; TEARDROP RBCS 1+ (NORMAL)
[2016-11-16 12:00] VITALS: BP 119/89; PULSE 73; RESP 18; TEMP 97; O2SAT 95
[2016-11-16] MEDS: GRANISETRON INJ 1 MG, DEXAMETHASONE INJ 20 MG in SODIUM CHLORIDE 0.9% INJ 50 ML IV SCH (14:11)
[2016-11-16] MEDS: DEXAMETHASONE SOD PHOS 0.1% OPHT SOLN 5 ML BTL EACH EYE SCH ×3 (14:11→20:42)
[2016-11-16] MEDS: SODIUM CHLORID 0.9% IV SCH (15:57)
[2016-11-16] MEDS: CYTARABINE IV SCH (15:57)
[2016-11-16 16:00] VITALS: BP_SYST 117; BP_SYST 95; BP_DIAS 58; BP_DIAS 62; PULSE 57; PULSE 64; RESP 14; RESP 18; TEMP 96.8; TEMP 97.4; O2SAT 94; O2SAT 96
[2016-11-16 20:00] VITALS: BP 130/71; PULSE 85; RESP 17; TEMP 97.2; O2SAT 95
[2016-11-16] MEDS: ACETAMINOPHEN 325 MG TAB PO PRN (21:56)
--- NOTE | 2016-11-16 22:38 | MH ---
cc: MIKAYLA CASTANEDA M.D. 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 HISTORY OF THE PRESENT ILLNESS Ashley is a pleasant 56-year-old female. In August she was admitted to [facility] for pneumonia. The blood workup showed pancytopenia and she had a bone marrow biopsy. She was diagnosed with acute myeloid leukemia with normal chromosomes. 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 She underwent induction chemotherapy 7+3 with daunorubicin and Zuleyka-C. The patient failed to go into remission. Then she was treated with CLAG and Rydapt. She completed her treatment on October 16 and day 30 bone marrow on October 26 showed that she went into remission. The patient was discharged from [facility] on October 30 after spending 71 days. I recently saw her in the office. I have recommended high-dose Zuleyka-C consolidation chemotherapy. The patient has been referred to [facility] for evaluation of a bone marrow transplant. The patient is complaining of weakness and fatigue. She denies any fever, night sweats or weight loss. Appetite is good. The rest of the review of systems is negative. PAST MEDICAL HISTORY 1. Acute myeloid leukemia. 2. Anxiety disorder. 3. COPD. 4. Depression. 5. Hypercholesterolemia. 6. Hypertension. 7. Irregular heartbeat. 8. Rheumatoid arthritis. PAST SURGICAL HISTORY 1. . 2. Cholecystectomy. 3. Colon resection. 4. Complete hysterectomy. 5. Lsryps-S-Ccva placement. 6. Right foot surgery. 7. Colonoscopy. ALLERGIES ROBAXIN AND SULFA. MEDICATIONS Please see EMR. FAMILY HISTORY Noncontributory. SOCIAL HISTORY Does not smoke cigarettes, does not drink alcohol. PHYSICAL EXAMINATION GENERAL: A well-developed, well-nourished white female in no apparent distress. VITAL SIGNS: Temperature 96.1, heart rate 68, blood pressure 137/84, O2 saturation 97% on room air. HEENT: PERRLA, EOMI, anicteric. No oral lesions are noted. NECK: Is supple. LYMPHATICS: There is no cervical, supraclavicular or axillary lymphadenopathy noted. LUNGS: Clear. No wheezing, rhonchi or rales. CARDIOVASCULAR: Heart is regular rate and rhythm. ABDOMEN: Soft, nontender. No hepatosplenomegaly. EXTREMITIES: No pedal edema. NEUROLOGIC: Awake, alert, oriented times threes. SKIN: No significant lesions are noted. LABORATORY DATA CBC showed white count 5.5, hemoglobin 8.7, hematocrit 25.8, platelet count 67. The comprehensive metabolic profile is normal except GFR is 87, glucose is 111 and total bilirubin is 1.2. AST is 39, ALT is 86. ASSESSMENT Acute myeloid leukemia with a normal chromosome 46XX. FLT3 was positive. NPM was negative. The patient required reinduction chemotherapy with CLAG and Rydapt. Currently she is FLT3 negative and in molecular remission. PLAN I have discussed with the patient regarding the concept of high-dose Zuleyka-C consolidation chemotherapy. She had a bone marrow biopsy a couple of weeks ago which showed no evidence of residual leukemia. The molecular tests also came back negative. We will start her on high-dose Zuleyka-C consolidation chemotherapy today. She will get 3 grams per meter square of high-dose Zuleyka-C every 12 hours on day one, day three and day five. Risks, benefit and alternatives of the chemotherapy were explained to the patient. The patient has agreed and wants to proceed with that. Informed consent has been obtained. Will monitor her CBC daily and give her transfusion support as needed. After completion of five days of chemotherapy she will be discharged to home and follow up in the office very closely. The patient has been referred to [facility] for evaluation of bone marrow transplant. The patient has not received the call for the appointment as yet. Further recommendations based on the hospital stay. MD ABEL Mcginnis/NIRANJAN /9:52 PM /10:27 PM VENKATESH
[2016-11-17] VITALS: BP 111/58; PULSE 67; RESP 17; TEMP 97.2; O2SAT 96
[2016-11-17] MEDS: GRANISETRON INJ 1 MG, DEXAMETHASONE INJ 20 MG in SODIUM CHLORIDE 0.9% INJ 50 ML IV SCH (01:43)
[2016-11-17] MEDS: SODIUM CHLORID 0.9% IV SCH (02:34)
[2016-11-17] MEDS: CYTARABINE IV SCH (02:34)
[2016-11-17 04:00] VITALS: BP 114/60; PULSE 65; RESP 17; TEMP 97.1; O2SAT 96
[2016-11-17 07:30] VITALS: BP 129/65; PULSE 67; RESP 20; TEMP 97.1; O2SAT 97
[2016-11-17 07:42] LABS: AUTOMATED NEUTROPHIL # 3.8 TH/MM3 (1.8-7.7); BASOPHIL % 0.3 % (0.0-2.0); HEMATOCRIT 24.5 % (35.0-46.0); LYMPH % 3.4 % (9.0-44.0); LYMPHOCYTE # 0.1 TH/MM3 (1.0-4.8); MEAN CELL VOLUME 91.1 FL (80.0-100.0); MEAN CORPUSCULAR HEMOGLOBIN 29.8 PG (27.0-34.0); MEAN CORPUSCULAR HGB CONC 32.7 % (32.0-36.0); MONO % 0.7 % (0.0-8.0); NEUT % 95.6 % (16.0-70.0); PLATELET COUNT 60 TH/MM3 (150-450); RED BLOOD COUNT 2.69 MIL/MM3 (4.00-5.30); RED CELL DISTRIBUTION WIDTH 24.3 % (11.6-17.2)
[2016-11-17 07:47] LABS: HEMO FLAGS AUTO DIFF
[2016-11-17 08:02] LABS: POTASSIUM 3.9 MEQ/L (3.5-5.1)
[2016-11-17 08:42] LABS: PLATELET ESTIMATE SMEAR LOW (NORMAL); PLATELET MORPHOLOGY NORMAL (NORMAL); SCAN/DIFF AUTO DIFF CONFIRMED
[2016-11-17] MEDS: HYDROCHLOROTHIAZIDE 25 MG TAB PO SCH (09:15)
[2016-11-17] MEDS: CARVEDILOL 3.125 MG TAB PO SCH (09:15)
[2016-11-17] MEDS: LOSARTAN 50 MG TAB PO SCH (09:15)
[2016-11-17] MEDS: amLODIPine BESYLATE 5 MG TAB PO SCH (09:15)
[2016-11-17] MEDS: DEXAMETHASONE SOD PHOS 0.1% OPHT SOLN 5 ML BTL EACH EYE SCH ×4 (09:15→20:51)
[2016-11-17] MEDS: ACETAMINOPHEN 325 MG TAB PO PRN (09:21)
[2016-11-17 12:00] VITALS: BP 118/67; PULSE 74; RESP 18; TEMP 97.3; O2SAT 96
--- NOTE | 2016-11-17 13:44 | PD.ONC.PN ---
Subjective Subjective Remarks Afebrile overnight. Patient resting in room. tolerated first day of chemo yesterday without difficulty. No side effects. Objective Data Date Time Temp Pulse Resp B/P Pulse Ox O2 Delivery O2 Flow Rate FiO2 11/17/16 12:00 97.3 74 18 118/67 96 11/17/16 10:33 16 11/17/16 07:30 97.1 67 20 129/65 97 11/17/16 04:00 97.1 65 17 114/60 96 11/17/16 00:00 97.2 67 17 111/58 96 11/16/16 20:00 97.2 85 17 130/71 95 11/16/16 16:00 97.4 57 18 117/62 94 11/16/16 16:00 96.8 64 14 95/58 96 Result Diagram: 11/17/16 0645 11/17/16 0645 Laboratory Results Laboratory Tests Test 11/17/16 06:45 White Blood Count 4.0 TH/MM3 Red Blood Count 2.69 MIL/MM3 Hemoglobin 8.0 GM/DL Hematocrit 24.5 % Mean Corpuscular Volume 91.1 FL Mean Corpuscular Hemoglobin 29.8 PG Mean Corpuscular Hemoglobin 32.7 % Concent Red Cell Distribution Width 24.3 % Platelet Count 60 TH/MM3 Mean Platelet Volume 8.7 FL Neutrophils (%) (Auto) 95.6 % Lymphocytes (%) (Auto) 3.4 % Monocytes (%) (Auto) 0.7 % Eosinophils (%) (Auto) 0.0 % Basophils (%) (Auto) 0.3 % Neutrophils # (Auto) 3.8 TH/MM3 Lymphocytes # (Auto) 0.1 TH/MM3 Monocytes # (Auto) 0.0 TH/MM3 Eosinophils # (Auto) 0.0 TH/MM3 Basophils # (Auto) 0.0 TH/MM3 CBC Comment AUTO DIFF Differential Comment AUTO DIFF CONFIRMED Platelet Estimate LOW Platelet Morphology Comment NORMAL Sodium Level 142 MEQ/L Potassium Level 3.9 MEQ/L Chloride Level 109 MEQ/L Carbon Dioxide Level 24.0 MEQ/L Anion Gap 9 MEQ/L Blood Urea Nitrogen 15 MG/DL Creatinine 0.62 MG/DL Estimat Glomerular Filtration 99 ML/MIN Rate Random Glucose 190 MG/DL Calcium Level 9.1 MG/DL Administered Medications Medications (Trade) Dose Ordered Sig/Zeynep Route PRN Reason Start Time Stop Time Status Last Admin Dose Admin Acetaminophen (Tylenol) 650 mg Q4H PRN PO PAIN SCALE 0-3 OR TEMP> 100.5F 11/16/16 08:00 11/17/16 09:21 Dexamethasone Sodium Phosphate (Decadron Opth 0.1% Soln) 2 drop QID EACH EYE 11/16/16 13:00 11/23/16 09:01 11/17/16 09:15 Losartan Potassium (Cozaar) 100 mg DAILY PO 11/17/16 09:00 11/17/16 09:15 Hydrochlorothiazide (Hydrodiuril) 25 mg DAILY PO 11/17/16 09:00 11/17/16 09:15 Carvedilol (Coreg) 3.125 mg DAILY PO 11/17/16 09:00 11/17/16 09:15 Amlodipine Besylate (Norvasc) 5 mg DAILY PO 11/17/16 09:00 11/17/16 09:15 Objective Remarks GENERAL: Middle aged female upright in room in nad. SKIN: Warm and dry. port in place, site clean HEAD: Normocephalic. EYES: No injection or drainage. NECK: Supple, trachea midline. CARDIOVASCULAR: Regular rate and rhythm RESPIRATORY: Breath sounds equal bilaterally. No accessory muscle use. GASTROINTESTINAL: Abdomen soft, non-tender, nondistended. EXTREMITIES: No cyanosis NEUROLOGICAL: No obvious focal deficit. Awake, alert, and oriented x3. Assessment/Plan Problem List: (1) Acute myeloid leukemia Status: Acute Plan: 11/16: D1 HiDAC. 11/17: off day. monitor counts. --FLT3 molecular positive. --underwent induction chemotherapy 7+3 with daunorubicin and Zuleyka-C-->failed to go into remission. Then she was treated with CLAG and Rydapt and went into remission. -- has been referred to [facility] for evaluation of a bone marrow transplant. (2) Normocytic anemia Status: Acute Plan: --d/t leukemia/chemotherapy --monitor and transfuse for hgb<7.5mg/dL (3) Hypertension Status: Acute Plan: --home medications resumed. (4) Thrombocytopenia Status: Acute Plan: --d/t leukemia + chemotherapy --monitor and transfuse if bleeding or platelet count less than 10K Assessment 56y/o female with high-dose Zuleyka-C consolidation chemotherapy for acute myeloid leukemia. h/o Acute myeloid leukemia. Anxiety disorder. COPD. Depression. Hypercholesterolemia. Hypertension. Irregular heartbeat. Rheumatoid arthritis. Attending Statement Denies any nausea and vomiting Tolerating chemotherapy very well Continued the present plan Problem Qualifiers (1) Acute myeloid leukemia: Qualified Code: C92.01 - Acute myeloid leukemia in remission Julianna Mcdaniel Nov 17, 2016 13:44 April Fonseca MD Nov 17, 2016 22:07
[2016-11-17 16:29] VITALS: BP 124/68; PULSE 67; RESP 20; TEMP 97.2; O2SAT 96
[2016-11-17 20:00] VITALS: BP 113/70; PULSE 77; RESP 16; TEMP 96.5; O2SAT 94
[2016-11-18] VITALS (8 sets, daily range): BP systolic 98–160; BP diastolic 55–77; PULSE 54–71; RESP 14–18; TEMP 96–98.1; O2SAT 94–98
[2016-11-18 07:23] LABS: AUTOMATED NEUTROPHIL # 3.6 TH/MM3 (1.8-7.7); BASOPHIL % 0.1 % (0.0-2.0); HEMATOCRIT 22.1 % (35.0-46.0); LYMPH % 3.9 % (9.0-44.0); LYMPHOCYTE # 0.2 TH/MM3 (1.0-4.8); MEAN CELL VOLUME 90.9 FL (80.0-100.0); MEAN CORPUSCULAR HEMOGLOBIN 29.9 PG (27.0-34.0); MEAN CORPUSCULAR HGB CONC 32.9 % (32.0-36.0); MONO % 6.8 % (0.0-8.0); NEUT % 89.2 % (16.0-70.0); PLATELET COUNT 54 TH/MM3 (150-450); RED BLOOD COUNT 2.43 MIL/MM3 (4.00-5.30); RED CELL DISTRIBUTION WIDTH 25.5 % (11.6-17.2)
[2016-11-18 07:30] LABS: HEMO FLAGS AUTO DIFF
[2016-11-18 07:46] LABS: BICARBONATE 29.7 MEQ/L (21.0-32.0); POTASSIUM 3.7 MEQ/L (3.5-5.1)
[2016-11-18] MEDS ORDERED: diphenhydrAMINE HCL 25 MG CAP PO PRN (09:15)
[2016-11-18] MEDS ORDERED: ACETAMINOPHEN 325 MG TAB PO PRN (09:15)
[2016-11-18] MEDS ORDERED: SODIUM CHLOR 0.9% 250 ML INJ 250 ML IV ONE (09:15)
[2016-11-18 09:23] LABS: PLATELET ESTIMATE SMEAR LOW (NORMAL); PLATELET MORPHOLOGY NORMAL (NORMAL); SCAN/DIFF AUTO DIFF CONFIRMED
[2016-11-18] MEDS: DEXAMETHASONE SOD PHOS 0.1% OPHT SOLN 5 ML BTL EACH EYE SCH ×4 (09:57→21:24)
[2016-11-18] MEDS: amLODIPine BESYLATE 5 MG TAB PO SCH (09:57)
[2016-11-18] MEDS: LOSARTAN 50 MG TAB PO SCH (09:57)
[2016-11-18] MEDS: CARVEDILOL 3.125 MG TAB PO SCH (09:57)
[2016-11-18] MEDS: HYDROCHLOROTHIAZIDE 25 MG TAB PO SCH (09:57)
[2016-11-18] MEDS: GRANISETRON INJ 1 MG, DEXAMETHASONE INJ 20 MG in SODIUM CHLORIDE 0.9% INJ 50 ML IV SCH ×2 (11:53→21:25)
--- NOTE | 2016-11-18 12:03 | PD.ONC.PN ---
Subjective Subjective Remarks Afebrile overnight. Patient resting in chair next to bed in [facility]. She is about to receive her chemotherapy infusion. Denies nausea or diarrhea. Had BM this morning. Objective Data Date Time Temp Pulse Resp B/P Pulse Ox O2 Delivery O2 Flow Rate FiO2 11/18/16 11:52 98.0 63 18 110/66 97 11/18/16 08:00 98.1 54 14 111/56 98 11/18/16 06:25 114/61 11/18/16 04:00 96.3 58 16 160/77 94 11/18/16 00:00 96.0 68 16 105/55 98 11/17/16 20:00 96.5 77 16 113/70 94 11/17/16 16:29 97.2 67 20 124/68 96 11/18/16 11/18/16 11/18/16 07:00 15:00 23:00 Intake Total 250 ml Balance 250 ml Result Diagram: 11/18/16 0600 11/18/16 0600 Laboratory Results Laboratory Tests Test 11/18/16 11/18/16 06:00 10:07 White Blood Count 4.0 TH/MM3 Red Blood Count 2.43 MIL/MM3 Hemoglobin 7.3 GM/DL Hematocrit 22.1 % Mean Corpuscular Volume 90.9 FL Mean Corpuscular Hemoglobin 29.9 PG Mean Corpuscular Hemoglobin 32.9 % Concent Red Cell Distribution Width 25.5 % Platelet Count 54 TH/MM3 Mean Platelet Volume 8.7 FL Neutrophils (%) (Auto) 89.2 % Lymphocytes (%) (Auto) 3.9 % Monocytes (%) (Auto) 6.8 % Eosinophils (%) (Auto) 0.0 % Basophils (%) (Auto) 0.1 % Neutrophils # (Auto) 3.6 TH/MM3 Lymphocytes # (Auto) 0.2 TH/MM3 Monocytes # (Auto) 0.3 TH/MM3 Eosinophils # (Auto) 0.0 TH/MM3 Basophils # (Auto) 0.0 TH/MM3 CBC Comment AUTO DIFF Differential Comment AUTO DIFF CONFIRMED Platelet Estimate LOW Platelet Morphology Comment NORMAL Sodium Level 145 MEQ/L Potassium Level 3.7 MEQ/L Chloride Level 109 MEQ/L Carbon Dioxide Level 29.7 MEQ/L Anion Gap 6 MEQ/L Blood Urea Nitrogen 17 MG/DL Creatinine 0.58 MG/DL Estimat Glomerular Filtration 107 ML/MIN Rate Random Glucose 122 MG/DL Calcium Level 8.6 MG/DL Blood Type A POSITIVE Antibody Screen NEGATIVE Crossmatch Leukocyte-Reduced Red Blood Cells Blood Bank Comment Administered Medications Medications (Trade) Dose Ordered Sig/Zeynep Route PRN Reason Start Time Stop Time Status Last Admin Dose Admin Acetaminophen (Tylenol) 650 mg Q4H PRN PO PAIN SCALE 0-3 OR TEMP> 100.5F 11/16/16 08:00 11/17/16 09:21 Dexamethasone Sodium Phosphate (Decadron Opth 0.1% Soln) 2 drop QID EACH EYE 11/16/16 13:00 11/23/16 09:01 11/18/16 09:57 Losartan Potassium (Cozaar) 100 mg DAILY PO 11/17/16 09:00 11/18/16 09:57 Hydrochlorothiazide (Hydrodiuril) 25 mg DAILY PO 11/17/16 09:00 11/18/16 09:57 Carvedilol (Coreg) 3.125 mg DAILY PO 11/17/16 09:00 11/18/16 09:57 Amlodipine Besylate 5 mg 5 mg DAILY PO 11/17/16 09:00 11/18/16 09:57 Granisetron HCl/ Dexamethasone Sodium Phosphate/ Sodium Chloride (Kytril Inj/ Decadron Inj/NS Inj) 56 ml @ 336 mls/hr Q12H IV 11/18/16 09:30 11/18/16 21:39 11/18/16 11:53 Objective Remarks GENERAL: Middle aged female sitting up in chair in nad. SKIN: Warm and dry. port in place, accessed and without bleeding. HEAD: Normocephalic. EYES: No injection or drainage. NECK: Supple, trachea midline. CARDIOVASCULAR: +S1/S2, regular RESPIRATORY: Breath sounds equal bilaterally. No accessory muscle use. GASTROINTESTINAL: Abdomen soft, non-tender, nondistended. EXTREMITIES: No cyanosis NEUROLOGICAL: No obvious focal deficit. Awake, alert, and oriented x3. Assessment/Plan Problem List: (1) Acute myeloid leukemia Status: Acute Plan: 11/16: D1 HiDAC. 11/17: off day. monitor counts. 11/18: D3 HiDAC. give 1 unit pRBC --FLT3 molecular positive. --underwent induction chemotherapy 7+3 with daunorubicin and Zuleyka-C-->failed to go into remission. Then she was treated with CLAG and Rydapt and went into remission. -- has been referred to [facility] for evaluation of a bone marrow transplant. (2) Normocytic anemia Status: Acute Plan: --d/t leukemia/chemotherapy --monitor and transfuse for hgb<7.5mg/dL (3) Hypertension Status: Acute Plan: --home medications resumed. (4) Thrombocytopenia Status: Acute Plan: --d/t leukemia + chemotherapy --monitor and transfuse if bleeding or platelet count less than 10K Assessment 56y/o female with high-dose Zuleyka-C consolidation chemotherapy for acute myeloid leukemia. h/o Acute myeloid leukemia. Anxiety disorder. COPD. Depression. Hypercholesterolemia. Hypertension. Irregular heartbeat. Rheumatoid arthritis. Attending Statement no N/V no c/o offer chemo today d/w RN D/W back up scan coordinator at [facility] Problem Qualifiers (1) Acute myeloid leukemia: Qualified Code: C92.01 - Acute myeloid leukemia in remission Julianna Mcdaniel Nov 18, 2016 12:03 April Fonseca MD Nov 18, 2016 15:27
[2016-11-18] MEDS: SODIUM CHLORID 0.9% IV SCH ×2 (12:56→22:07)
[2016-11-18] MEDS: CYTARABINE IV SCH ×2 (12:56→22:07)
[2016-11-18] MEDS ORDERED: CYTARABINE IV SCH (14:00)
[2016-11-18] MEDS ORDERED: SODIUM CHLORID 0.9% IV SCH (14:00)
[2016-11-19] VITALS (7 sets, daily range): BP systolic 106–140; BP diastolic 53–70; PULSE 53–73; RESP 16–20; TEMP 96.4–97.9; O2SAT 97–98
[2016-11-19 05:55] LABS: AUTOMATED NEUTROPHIL # 3.5 TH/MM3 (1.8-7.7); BASOPHIL % 0.1 % (0.0-2.0); HEMATOCRIT 25.2 % (35.0-46.0); LYMPH % 1.2 % (9.0-44.0); MEAN CORPUSCULAR HEMOGLOBIN 30.6 PG (27.0-34.0); MEAN CORPUSCULAR HGB CONC 34.4 % (32.0-36.0); MONO % 0.3 % (0.0-8.0); NEUT % 98.4 % (16.0-70.0); PLATELET COUNT 51 TH/MM3 (150-450); RED BLOOD COUNT 2.83 MIL/MM3 (4.00-5.30); WHITE BLOOD COUNT 3.6 TH/MM3 (4.0-11.0)
[2016-11-19 06:11] LABS: HEMO FLAGS AUTO DIFF
[2016-11-19 06:15] LABS: BICARBONATE 27.7 MEQ/L (21.0-32.0); POTASSIUM 4.5 MEQ/L (3.5-5.1)
[2016-11-19 08:39] LABS: SCAN/DIFF AUTO DIFF CONFIRMED
[2016-11-19] MEDS: CARVEDILOL 3.125 MG TAB PO SCH (09:15)
[2016-11-19] MEDS: DEXAMETHASONE SOD PHOS 0.1% OPHT SOLN 5 ML BTL EACH EYE SCH ×4 (09:15→20:57)
[2016-11-19] MEDS: LOSARTAN 50 MG TAB PO SCH (09:15)
[2016-11-19] MEDS: amLODIPine BESYLATE 5 MG TAB PO SCH (09:16)
[2016-11-19] MEDS: HYDROCHLOROTHIAZIDE 25 MG TAB PO SCH (09:16)
--- NOTE | 2016-11-19 14:00 | PD.ONC.PN ---
Subjective Subjective Remarks Afebrile overnight. Patient resting in room. Tolerated infusions last night. No nausea or vomiting. No diarrhea. Objective Data Date Time Temp Pulse Resp B/P Pulse Ox O2 Delivery O2 Flow Rate FiO2 11/19/16 12:18 97.9 67 18 111/70 97 11/19/16 09:17 65 11/19/16 08:00 96.6 55 20 115/62 98 11/19/16 04:00 96.6 53 18 140/67 97 11/19/16 00:00 96.4 73 17 119/53 97 11/18/16 20:00 97.3 61 18 98/57 98 11/18/16 17:30 97.8 71 16 106/55 96 11/18/16 16:00 97.9 63 14 113/58 96 11/19/16 11/19/16 11/19/16 07:00 15:00 23:00 Intake Total 500 ml 120 ml Balance 500 ml 120 ml Result Diagram: 11/19/16 0420 11/19/16 0420 Laboratory Results Laboratory Tests Test 11/19/16 04:20 White Blood Count 3.6 TH/MM3 Red Blood Count 2.83 MIL/MM3 Hemoglobin 8.7 GM/DL Hematocrit 25.2 % Mean Corpuscular Volume 89.0 FL Mean Corpuscular Hemoglobin 30.6 PG Mean Corpuscular Hemoglobin 34.4 % Concent Red Cell Distribution Width 23.0 % Platelet Count 51 TH/MM3 Mean Platelet Volume 8.4 FL Neutrophils (%) (Auto) 98.4 % Lymphocytes (%) (Auto) 1.2 % Monocytes (%) (Auto) 0.3 % Eosinophils (%) (Auto) 0.0 % Basophils (%) (Auto) 0.1 % Neutrophils # (Auto) 3.5 TH/MM3 Lymphocytes # (Auto) 0.0 TH/MM3 Monocytes # (Auto) 0.0 TH/MM3 Eosinophils # (Auto) 0.0 TH/MM3 Basophils # (Auto) 0.0 TH/MM3 CBC Comment AUTO DIFF Differential Comment AUTO DIFF CONFIRMED Sodium Level 141 MEQ/L Potassium Level 4.5 MEQ/L Chloride Level 108 MEQ/L Carbon Dioxide Level 27.7 MEQ/L Anion Gap 5 MEQ/L Blood Urea Nitrogen 19 MG/DL Creatinine 0.57 MG/DL Estimat Glomerular Filtration 109 ML/MIN Rate Random Glucose 186 MG/DL Calcium Level 8.8 MG/DL Administered Medications Medications (Trade) Dose Ordered Sig/Zeynep Route PRN Reason Start Time Stop Time Status Last Admin Dose Admin Acetaminophen (Tylenol) 650 mg Q4H PRN PO PAIN SCALE 0-3 OR TEMP> 100.5F 11/16/16 08:00 11/17/16 09:21 Dexamethasone Sodium Phosphate (Decadron Opth 0.1% Soln) 2 drop QID EACH EYE 11/16/16 13:00 11/23/16 09:01 11/19/16 12:31 Losartan Potassium (Cozaar) 100 mg DAILY PO 11/17/16 09:00 11/19/16 09:15 Hydrochlorothiazide (Hydrodiuril) 25 mg DAILY PO 11/17/16 09:00 11/19/16 09:16 Carvedilol (Coreg) 3.125 mg DAILY PO 11/17/16 09:00 11/19/16 09:15 Amlodipine Besylate (Norvasc) 5 mg DAILY PO 11/17/16 09:00 11/19/16 09:16 Objective Remarks GENERAL: Middle aged female sitting up in chair in room in [facility]. SKIN: Warm and dry. port site clean. HEAD: Normocephalic. EYES: No injection or drainage. NECK: Supple, trachea midline. CARDIOVASCULAR: +S1/S2, regular RESPIRATORY: Breath sounds equal bilaterally. No accessory muscle use. GASTROINTESTINAL: Abdomen soft, non-tender, nondistended. EXTREMITIES: No cyanosis NEUROLOGICAL: no focal deficit. Assessment/Plan Problem List: (1) Acute myeloid leukemia Status: Acute Plan: 11/16: D1 HiDAC. 11/17: off day. monitor counts. 11/18: D3 HiDAC. give 1 unit pRBC 11/19: off day. monitor blood counts. --FLT3 molecular positive. --underwent induction chemotherapy 7+3 with daunorubicin and Zuleyka-C-->failed to go into remission. Then she was treated with CLAG and Rydapt and went into remission. -- has been referred to [facility] for evaluation of a bone marrow transplant. (2) Normocytic anemia Status: Acute Plan: --d/t leukemia/chemotherapy --monitor and transfuse for hgb<7.5mg/dL (3) Hypertension Status: Acute Plan: --home medications resumed. (4) Thrombocytopenia Status: Acute Plan: --d/t leukemia + chemotherapy --monitor and transfuse if bleeding or platelet count less than 10K Assessment 56y/o female with high-dose Zuleyka-C consolidation chemotherapy for acute myeloid leukemia. h/o Acute myeloid leukemia. Anxiety disorder. COPD. Depression. Hypercholesterolemia. Hypertension. Irregular heartbeat. Rheumatoid arthritis. Attending Statement no c/o offer No problems with chemo so far. home tomorrow. Problem Qualifiers (1) Acute myeloid leukemia: Qualified Code: C92.01 - Acute myeloid leukemia in remission Julianna Mcdaniel Nov 19, 2016 14:00 April Fonseca MD Nov 19, 2016 22:49
[2016-11-20] VITALS: BP 117/64; PULSE 61; RESP 16; TEMP 96.7; O2SAT 99
[2016-11-20] MEDS: GRANISETRON INJ 1 MG, DEXAMETHASONE INJ 20 MG in SODIUM CHLORIDE 0.9% INJ 50 ML IV SCH ×2 (02:38→14:27)
[2016-11-20] MEDS: SODIUM CHLORID 0.9% IV SCH ×2 (02:56→15:13)
[2016-11-20] MEDS: CYTARABINE IV SCH ×2 (02:56→15:13)
[2016-11-20 04:00] VITALS: BP 127/74; PULSE 51; RESP 15; TEMP 96; O2SAT 98
[2016-11-20 08:00] VITALS: BP 103/59; PULSE 55; RESP 16; TEMP 96.5; O2SAT 97
[2016-11-20] MEDS: LOSARTAN 50 MG TAB PO SCH (09:00)
[2016-11-20] MEDS: HYDROCHLOROTHIAZIDE 25 MG TAB PO SCH (09:00)
[2016-11-20] MEDS: amLODIPine BESYLATE 5 MG TAB PO SCH (09:00)
--- NOTE | 2016-11-20 09:00 | PD.ONC.PN ---
Subjective Subjective Remarks Afebrile overnight. Patient resting in bed. She had a hard time sleeping last night, due to the chemotherapy and a fire alarm. She is glad to be going home today. Objective Data Date Time Temp Pulse Resp B/P Pulse Ox O2 Delivery O2 Flow Rate FiO2 11/20/16 08:00 96.5 55 16 103/59 97 11/20/16 04:00 96.0 51 15 127/74 98 11/20/16 00:00 96.7 61 16 117/64 99 11/19/16 20:00 97.6 60 16 112/66 97 11/19/16 16:00 97.8 55 20 106/65 97 11/19/16 12:18 97.9 67 18 111/70 97 11/19/16 09:17 65 11/20/16 11/20/16 11/20/16 07:00 15:00 23:00 Intake Total 240 ml Balance 240 ml Result Diagram: 11/19/160 11/19/16419 Administered Medications Medications (Trade) Dose Ordered Sig/Zeynep Route PRN Reason Start Time Stop Time Status Last Admin Dose Admin Acetaminophen (Tylenol) 650 mg Q4H PRN PO PAIN SCALE 0-3 OR TEMP> 100.5F 11/16/16 08:00 11/17/16 09:21 Dexamethasone Sodium Phosphate (Decadron Opth 0.1% Soln) 2 drop QID EACH EYE 11/16/16 13:00 11/23/16 09:01 11/19/16 20:57 Losartan Potassium (Cozaar) 100 mg DAILY PO 11/17/16 09:00 11/19/16 09:15 Hydrochlorothiazide (Hydrodiuril) 25 mg DAILY PO 11/17/16 09:00 11/19/16 09:16 Carvedilol (Coreg) 3.125 mg DAILY PO 11/17/16 09:00 11/19/16 09:15 Amlodipine Besylate 5 mg 5 mg DAILY PO 11/17/16 09:00 11/19/16 09:16 Cytarabine 5550 mg/Sodium Chloride 500 ml @ 166.667 mls/hr Q12H IV 11/20/16 03:00 11/20/16 17:59 11/20/16 02:56 Granisetron HCl/ Dexamethasone Sodium Phosphate/ Sodium Chloride (Kytril Inj/ Decadron Inj/NS Inj) 56 ml @ 336 mls/hr Q12H IV 11/20/16 02:30 11/20/16 14:39 11/20/16 02:38 Objective Remarks GENERAL: Chronically ill female upright in bed SKIN: Warm and dry. port in place HEAD: Normocephalic. EYES: No scleral icterus. No injection or drainage. NECK: Supple, trachea midline. CARDIOVASCULAR: Regular rate and rhythm RESPIRATORY: Breath sounds equal bilaterally. No accessory muscle use. GASTROINTESTINAL: Abdomen soft, non-tender, nondistended. EXTREMITIES: No cyanosis NEUROLOGICAL: No obvious focal deficit. Awake, alert, and oriented x3. Assessment/Plan Problem List: (1) Acute myeloid leukemia Status: Acute Plan: 11/16: D1 HiDAC. 11/17: off day. monitor counts. 11/18: D3 HiDAC. give 1 unit pRBC 11/19: off day. monitor blood counts. 11/20: last day of chemotherapy, d/c home today. follow up in clinic on Wednesday --FLT3 molecular positive. --underwent induction chemotherapy 7+3 with daunorubicin and Zuleyka-C-->failed to go into remission. Then she was treated with CLAG and Rydapt and went into remission. -- has been referred to [facility] for evaluation of a bone marrow transplant. (2) Normocytic anemia Status: Acute Plan: --d/t leukemia/chemotherapy --monitor and transfuse for hgb<7.5mg/dL (3) Hypertension Status: Acute Plan: --home medications resumed. (4) Thrombocytopenia Status: Acute Plan: --d/t leukemia + chemotherapy --monitor and transfuse if bleeding or platelet count less than 10K Assessment 56y/o female with high-dose Zuleyka-C consolidation chemotherapy for acute myeloid leukemia. h/o Acute myeloid leukemia. Anxiety disorder. COPD. Depression. Hypercholesterolemia. Hypertension. Irregular heartbeat. Rheumatoid arthritis. Attending Statement no n/v feels better D/C home today after the chemo FU on wednesday Problem Qualifiers (1) Acute myeloid leukemia: Qualified Code: C92.01 - Acute myeloid leukemia in remission Julianna Mcdaniel Nov 20, 2016 09:00 April Fonseca MD Nov 20, 2016 10:30
--- NOTE | 2016-11-20 09:02 | HHI.DCPOC ---
Discharge Care Plan Diagnosis: (1) Acute myeloid leukemia Goals to Promote Your Health * To prevent worsening of your condition and complications * To maintain your health at the optimal level Directions to Meet Your Goals Take your medications as prescribed Follow your dietary instruction Follow activity as directed Keep your appointments as scheduled Take your immunizations and boosters as scheduled If your symptoms worsen call your PCP, if no PCP go to Urgent Care Center or Emergency Room Smoking is Dangerous to Your Health. Avoid second hand smoke Call the 24-hour hour crisis hotline for domestic abuse at Julianna Mcdaniel Nov 20, 2016 09:02
[2016-11-20] MEDS: DEXAMETHASONE SOD PHOS 0.1% OPHT SOLN 5 ML BTL EACH EYE SCH ×3 (09:30→17:16)
[2016-11-20] MEDS ORDERED: GRANISETRON INJ 1 MG, DEXAMETHASONE INJ 20 MG in SODIUM CHLORIDE 0.9% INJ 50 ML IV SCH (09:30)
[2016-11-20] MEDS: CARVEDILOL 3.125 MG TAB PO SCH (09:30)
[2016-11-20] MEDS ORDERED: SODIUM CHLORID 0.9% IV SCH (10:00)
[2016-11-20] MEDS ORDERED: CYTARABINE IV SCH (10:00)
[2016-11-20 10:59] LABS: AUTOMATED NEUTROPHIL # 2.9 TH/MM3 (1.8-7.7); BASOPHIL % 0.1 % (0.0-2.0); EOSINOPHIL % 0.1 % (0.0-4.0); HEMATOCRIT 25.1 % (35.0-46.0); LYMPH % 0.9 % (9.0-44.0); MEAN CELL VOLUME 90.3 FL (80.0-100.0); MEAN CORPUSCULAR HEMOGLOBIN 29.3 PG (27.0-34.0); MEAN CORPUSCULAR HGB CONC 32.5 % (32.0-36.0); MONO % 0.4 % (0.0-8.0); NEUT % 98.5 % (16.0-70.0); PLATELET COUNT 49 TH/MM3 (150-450); RED BLOOD COUNT 2.78 MIL/MM3 (4.00-5.30); RED CELL DISTRIBUTION WIDTH 23.1 % (11.6-17.2); WHITE BLOOD COUNT 2.9 TH/MM3 (4.0-11.0)
[2016-11-20 11:03] LABS: HEMO FLAGS AUTO DIFF
[2016-11-20 12:00] VITALS: BP 114/65; PULSE 57; RESP 16; TEMP 96.5; O2SAT 96
[2016-11-20 12:41] LABS: PLATELET ESTIMATE SMEAR LOW (NORMAL)
[2016-11-20 12:42] LABS: PLATELET MORPHOLOGY NORMAL (NORMAL); SCAN/DIFF AUTO DIFF CONFIRMED
--- NOTE | 2016-11-20 12:52 | HHI.DS ---
Discharge Summary Admission Date Nov 16, 2016 at 07:51 Admitting Diagnosis AML, admitted for consolidation chemotherapy (1) Acute myeloid leukemia Diagnosis: Principal Brief History Ms. Arroyo is a 57y/o female with recent diagnosis of AML. She completed induction therapy and entered into a remission. She is being admitted for her first cycle of consolidation chemotherapy. CBC/BMP: 11/20/16 0640 11/19/16 0420 Significant Findings Laboratory Tests Test 11/18/16 11/19/16 11/20/16 06:00 04:20 06:40 Red Blood Count 2.43 MIL/MM3 2.83 MIL/MM3 2.78 MIL/MM3 (4.00-5.30) (4.00-5.30) (4.00-5.30) Hemoglobin 7.3 GM/DL 8.7 GM/DL 8.2 GM/DL (11.6-15.3) (11.6-15.3) (11.6-15.3) Hematocrit 22.1 % 25.2 % 25.1 % (35.0-46.0) (35.0-46.0) (35.0-46.0) Red Cell Distribution Width 25.5 % 23.0 % 23.1 % (11.6-17.2) (11.6-17.2) (11.6-17.2) Platelet Count 54 TH/MM3 51 TH/MM3 49 TH/MM3 (150-450) (150-450) (150-450) Neutrophils (%) (Auto) 89.2 % 98.4 % 98.5 % (16.0-70.0) (16.0-70.0) (16.0-70.0) Lymphocytes (%) (Auto) 3.9 % 1.2 % 0.9 % (9.0-44.0) (9.0-44.0) (9.0-44.0) Lymphocytes # (Auto) 0.2 TH/MM3 0.0 TH/MM3 0.0 TH/MM3 (1.0-4.8) (1.0-4.8) (1.0-4.8) Platelet Estimate LOW (NORMAL) LOW (NORMAL) Chloride Level 109 MEQ/L 108 MEQ/L (98-107) (98-107) Random Glucose 122 MG/DL 186 MG/DL (74-106) (74-106) White Blood Count 3.6 TH/MM3 2.9 TH/MM3 (4.0-11.0) (4.0-11.0) Blood Urea Nitrogen 19 MG/DL (7-18) Hospital Course 56y/o female was admitted on November 16, 2016 for consolidation chemotherapy. Her home medications were resumed. she was given high dose Zuleyka-C consolidation chemotherapy on days 1, 3, and 5 according to the chemotherapy protocol. She was given a blood transfusion of pRBC on 11/18. She is being discharged in stable condition with instructions for follow up. Discharge Disposition: Discharge Home Discharge Instructions DIET: Follow Instructions for: As Tolerated, No Restrictions Activities you can perform: Regular-No Restrictions Julianna Mcdaniel Nov 20, 2016 12:52
[2016-11-20 16:00] VITALS: BP_SYST 116; BP_SYST 97; BP_DIAS 55; BP_DIAS 72; PULSE 53; PULSE 79; RESP 16; RESP 18; TEMP 97.5; TEMP 97.6; O2SAT 96; O2SAT 99
== END 2016-11-20 19:25 | disposition home or self-care (01) | DRG 839 ==
LOC: HOCA 06:51 → OBSVTOIN 07:51
PROVIDERS: ADMIT Internal Medicine Hematology & Oncology; ATTEND Internal Medicine Hematology & Oncology
PROC: 3E03305 Introduction of Other Antineoplastic into Peripheral Vein, Percutaneous Approach (ICD-10-PCS; principal; 2016-11-16)
PROC: 30233N1 Transfusion of Nonautologous Red Blood Cells into Peripheral Vein, Percutaneous Approach (ICD-10-PCS; 2016-11-18)
DX: Z51.11 Encounter for antineoplastic chemotherapy (principal); C92.01 Acute myeloblastic leukemia, in remission; D69.6 Thrombocytopenia, unspecified; I10 Essential (primary) hypertension; J44.9 Chronic obstructive pulmonary disease, unspecified; E78.00 Pure hypercholesterolemia, unspecified; M06.9 Rheumatoid arthritis, unspecified; I49.9 Cardiac arrhythmia, unspecified
CPT/HCPCS: 36430; 80048; 80053; 85007; 85025; 85027; 86850; 86900; 86901; 86920; J1100; J1626; J7040; J7050; J9100; P9016

== ENCOUNTER 2016-11-28 18:25 | Inpatient (IN) | payer OTHER, MEDICARE ==
[~2016-11-28] VITALS: Ht 154.9 cm; Wt 84.5 kg
[2016-11-28] VITALS (7 sets, daily range): BP systolic 103–148; BP diastolic 58–85; PULSE 93–118; RESP 14–23; TEMP 99.5–99.7; O2SAT 97–100
[~2016-11-28 18:25] MED LIST changes: -ALBUAER3 INH; -AMLO5TAB2 PO; -DOXY100C PO; -FOLI1TAB4 PO; -MELA5TAB15 PO; -METH2.5T PO; -METH4TAB6 PO; -NAPR220T95 PO; -[UNRECOGNIZED DRUG - CODE]; -[UNRECOGNIZED DRUG - OTHER] CHEW
--- NOTE | 2016-11-28 18:43 | PD ---
HPI Chief Complaint: Respiratory Symptoms Time Seen by Provider: 18:33 Travel History International Travel<30 days: No Contact w/Intl Traveler<30days: No History of Present Illness HPI Patient is a 56-year-old female with a history of acute leukemia presents the emergency department for evaluation of fever and cough. States symptoms been going on for 2 days gradually worsening. She states nonproductive cough. Endorses some mild shortness of breath. She is on daily oral chemotherapy at home. She is followed by Dr. Rogers. Patient states her temperature was mildly elevated 99.7. She denies any skin changes diarrhea abdominal pain chest pain nausea or vomiting. PFSH Past Medical History Hx Anticoagulant Therapy: No Anemia: Yes Arthritis: Yes (RA) Asthma: Yes Autoimmune Disease: Yes Anxiety: Yes Depression: No Cancer: Yes Cardiac Catheterization: Yes (2016) Cardiovascular Problems: Yes High Cholesterol: Yes Chemotherapy: Yes (INDUCTION FOR AML) Chest Pain: Yes COPD: Yes Coronary Artery Disease: Yes Diabetes: No Diminished Hearing: No Endocrine: No Gastrointestinal Disorders: Yes GERD: Yes Genitourinary: Yes Hypertension: Yes Immune Disorder: Yes (LUPUS /RA) Psychiatric: Yes Respiratory: Yes (COPD) Immunizations Current: Yes Pneumonia: Yes Sickle Cell Disease: No Sleep Apnea: Yes (NO CPAP USE) Thyroid Disease: No Menopausal: Yes : 2 Para: 2 Dilation and Curettage (D&C): Yes Tubal Ligation: Yes Past Surgical History Section: Yes (X's 2) Cholecystectomy: Yes Eye Surgery: Yes (BILATERAL LASIK: 2016) Gynecologic Surgery: Yes (CERVICAL CA) Hysterectomy: Yes (Partial) Oral Surgery: Yes (NASAL SURGERY) Tonsillectomy: Yes Other Surgery: Yes (CYST ON NECK) Social History Alcohol Use: No Tobacco Use: No (QUIT: 2005) Substance Use: No Allergies-Medications (Allergen,Severity, Reaction): Coded Allergies: Amlodipine (Verified Allergy, Severe, Hives, 08/15/16) PATIENT STATES SHE IS NOT ALLERGIC-TAKES THIS MED DAILY Latex (Verified Allergy, Severe, Rash, 08/15/16) Sulfa (Verified Adverse Reaction, Severe, Vomiting, cramps, 08/15/16) Reported Meds & Prescriptions Reported Meds & Active Scripts Active Reported Prochlorperazine Edisylate 5 Mg/1 Ml Vial 5 Mg PO PRN [Rydapt] 50 Mg PO BID Levofloxacin 500 Mg Tablet 500 Mg PO DAILY Prednisone 2.5 Mg Tab 2.5 Mg PO BID Losartan-Hydrochlorothiazide 100-25 Mg Tab 1 Tab PO DAILY Carvedilol 12.5 Mg Tab 3.125 Mg PO DAILY Review of Systems Except as stated in HPI: all other systems reviewed are Neg Physical Exam Narrative GENERAL: Well-developed well-nourished, scant hair and scalp, quite pleasant in no obvious distress. SKIN: Focused skin assessment warm/dry. HEAD: Atraumatic. Normocephalic. EYES: Pupils equal and round. No scleral icterus. No injection or drainage. ENT: No nasal bleeding or discharge. Mucous membranes pink and moist. NECK: Trachea midline. No JVD. CARDIOVASCULAR: Regular rate and rhythm. No murmur appreciated. 2+ bilateral equal pulses in all 4 extremities. RESPIRATORY: No accessory muscle use. Clear to auscultation. Breath sounds equal bilaterally. No rales no rhonchi appreciated. GASTROINTESTINAL: Abdomen soft, non-tender, nondistended. Hepatic and splenic margins not palpable. MUSCULOSKELETAL: No obvious deformities. No clubbing. No cyanosis. No edema. NEUROLOGICAL: Awake and alert. No obvious cranial nerve deficits. Motor grossly within normal limits. Normal speech. PSYCHIATRIC: Appropriate mood and affect; insight and judgment normal. Data Data Last Documented VS Vital Signs Date Time Temp Pulse Resp B/P Pulse Ox O2 Delivery O2 Flow Rate FiO2 11/28/16 18:47 111 14 99 Room Air 11/28/16 18:42 99.7 148/85 Orders Complete Blood Count With Diff (11/28/16 18:33) Comprehensive Metabolic Panel (11/28/16 18:33) Lipase (11/28/16 18:33) Lactic Acid (11/28/16 18:33) Prothrombin Time / Inr (Pt) (11/28/16 18:33) Act Partial Throm Time (Ptt) (11/28/16 18:33) Iv Access Insert/Monitor (11/28/16 18:33) Ecg Monitoring (11/28/16 18:33) Oximetry (11/28/16 18:33) Sodium Chloride 0.9% Flush (Ns Flush) (11/28/16 18:45) Chest, Pa & Lat (11/28/16 ) Electrocardiogram (11/28/16 18:33) Blood Culture (11/28/16 19:24) Cefepime Inj (Maxipime Inj) (11/28/16 19:30) Labs Laboratory Tests Test 11/28/16 18:40 White Blood Count 0.2 TH/MM3 Red Blood Count 2.08 MIL/MM3 Hemoglobin 6.3 GM/DL Hematocrit 17.7 % Mean Corpuscular Volume 85.5 FL Mean Corpuscular Hemoglobin 30.4 PG Mean Corpuscular Hemoglobin 35.6 % Concent Red Cell Distribution Width 19.0 % Platelet Count 2 TH/MM3 Mean Platelet Volume 11.1 FL Neutrophils (%) (Auto) % Lymphocytes (%) (Auto) % Monocytes (%) (Auto) % Eosinophils (%) (Auto) % Basophils (%) (Auto) % Neutrophils # (Auto) TH/MM3 Lymphocytes # (Auto) TH/MM3 Monocytes # (Auto) TH/MM3 Eosinophils # (Auto) TH/MM3 Basophils # (Auto) TH/MM3 CBC Comment AUTO DIFF MDM Medical Decision Making Medical Screen Exam Complete: Yes Emergency Medical Condition: Yes Differential Diagnosis Fever, neutropenia, pneumonia, sepsis. Narrative Course Patient roomed in the emergency department, laboratory and radiologic workup has been ordered. The patient vital signs are reassuring. Patient was discussed with Dr. Leigh at 1900 shift change to follow-up patient labs and chest x-ray and disposition appropriate. Malcolm Cavanaugh MD Nov 28, 2016 18:43
[2016-11-28] MEDS ORDERED: PROC5INJ PO (18:51)
[2016-11-28] MEDS ORDERED: [UNRECOGNIZED DRUG - OTHER] PO (18:51)
[2016-11-28] MEDS ORDERED: LEVO500T8 PO (18:51)
--- NOTE | 2016-11-28 19:17 | RADRPT ---
EXAM DATE/TIME: 11/28/2016 18:58 [facility] COMPARISON: CHEST SINGLE AP, July 30, 2016, 3:48. INDICATIONS : Cough MEDICAL HISTORY : Hypertension. Chronic obstructive pulmonary disease. Leukemia. Cardiovascular disease SURGICAL HISTORY : Infuse-a port ENCOUNTER: Initial ACUITY: 1 day PAIN SCORE: 3/10 LOCATION: Bilateral chest FINDINGS: PA and lateral views of the chest demonstrate the lungs to be symmetrically aerated without evidence of mass, infiltrate or effusion. Minimal fissural thickening only seen on lateral view. Right-sided portacatheter with tip in the SVC. Mild cardiomegaly. The cardiomediastinal contours are unremarkable . Osseous structures are intact. CONCLUSION: 1. Mild cardiomegaly. 2. No infiltrate. Barrera Turner MD on November 28, 2016 at 19:14 Board Certified Radiologist. This report was verified electronically.
--- NOTE | 2016-11-28 19:24 | PD ---
Physical Exam Date Seen by Provider: Nov 28, 2016 Time Seen by Provider: 19:11 Narrative accepted transfer of care from Dr. Cavanaugh GENERAL: Well-developed well-nourished female in no acute distress or respiratory distress; GCS 15 SKIN: Warm and dry. Multiple isolated petechia no purpura. HEAD: Normocephalic. EYES: No scleral icterus. No injection or drainage. Pupils equal round reactive to light; extraocular muscles intact. ENT: Mucous membranes moist few petechia to soft palate. NECK: Supple, trachea midline. No JVD or lymphadenopathy. No meningismus no nuchal rigidity. CARDIOVASCULAR: Regular rate and rhythm without murmurs, gallops, or rubs. RESPIRATORY: Breath sounds equal bilaterally. No accessory muscle use. Lungs sounds clear to auscultation in all malhotra. GASTROINTESTINAL: Abdomen soft, non-tender, nondistended. MUSCULOSKELETAL: No cyanosis, or edema. Radial and dorsalis pedis pulses 2+ to palpation bilaterally. BACK: Nontender without obvious deformity. No CVA tenderness. Data Data Last Documented VS Vital Signs Date Time Temp Pulse Resp B/P Pulse Ox O2 Delivery O2 Flow Rate FiO2 11/28/16 18:47 111 14 99 Room Air 11/28/16 18:42 99.7 148/85 Orders Complete Blood Count With Diff (11/28/16 18:33) Comprehensive Metabolic Panel (11/28/16 18:33) Lipase (11/28/16 18:33) Lactic Acid (11/28/16 18:33) Prothrombin Time / Inr (Pt) (11/28/16 18:33) Act Partial Throm Time (Ptt) (11/28/16 18:33) Iv Access Insert/Monitor (11/28/16 18:33) Ecg Monitoring (11/28/16 18:33) Oximetry (11/28/16 18:33) Sodium Chloride 0.9% Flush (Ns Flush) (11/28/16 18:45) Chest, Pa & Lat (11/28/16 ) Electrocardiogram (11/28/16 18:33) Blood Culture (11/28/16 19:24) Cefepime Inj (Maxipime Inj) (11/28/16 19:30) Sodium Chlor 0.9% 250 Ml Inj (Ns 250 Ml (11/28/16 19:45) Vancomycin Inj (Vancomycin Inj) (11/28/16 19:45) Red Blood Cells Irradiated (11/28/16 19:53) Platelet Pheresis Irradiated (11/28/16 19:53) Blood Product Administration .UPON TRANSFUSION (11/28/16 19:53) Sodium Chlor 0.9% 250 Ml Inj (Ns 250 Ml (11/28/16 20:00) Isolation 08,20 (11/28/16 19:53) Admit Order (Ed Use Only) (11/28/16 ) ^ Saline Lock (11/28/16 19:55) Resp Oxygen Diaz C Titrat 1-4 L (11/28/16 ) Notify Dr: Other (11/28/16 19:55) Sodium Chloride 0.9% Flush (Ns Flush) (11/28/16 21:00) Sodium Chloride 0.9% Flush (Ns Flush) (11/28/16 20:00) Labs Laboratory Tests Test 11/28/16 11/28/16 18:40 19:56 White Blood Count 0.2 TH/MM3 Red Blood Count 2.08 MIL/MM3 Hemoglobin 6.3 GM/DL Hematocrit 17.7 % Mean Corpuscular Volume 85.5 FL Mean Corpuscular Hemoglobin 30.4 PG Mean Corpuscular Hemoglobin 35.6 % Concent Red Cell Distribution Width 19.0 % Platelet Count 2 TH/MM3 Mean Platelet Volume 11.1 FL Neutrophils (%) (Auto) % Lymphocytes (%) (Auto) % Monocytes (%) (Auto) % Eosinophils (%) (Auto) % Basophils (%) (Auto) % Neutrophils # (Auto) TH/MM3 Lymphocytes # (Auto) TH/MM3 Monocytes # (Auto) TH/MM3 Eosinophils # (Auto) TH/MM3 Basophils # (Auto) TH/MM3 CBC Comment AUTO DIFF Prothrombin Time 9.3 SEC Prothromb Time International 0.8 RATIO Ratio Activated Partial 35.9 SEC Thromboplast Time Sodium Level 138 MEQ/L Potassium Level 3.5 MEQ/L Chloride Level 101 MEQ/L Carbon Dioxide Level 27.8 MEQ/L Anion Gap 9 MEQ/L Blood Urea Nitrogen 18 MG/DL Creatinine 0.75 MG/DL Estimat Glomerular Filtration 79 ML/MIN Rate Random Glucose 137 MG/DL Lactic Acid Level 2.3 mmol/L Calcium Level 9.3 MG/DL Total Bilirubin 2.0 MG/DL Aspartate Amino Transf 34 U/L (AST/SGOT) Alanine Aminotransferase 83 U/L (ALT/SGPT) Alkaline Phosphatase 79 U/L Total Protein 7.0 GM/DL Albumin 3.4 GM/DL Lipase 62 U/L Blood Bank Comment [facility] Medical Record Reviewed: Yes Supervised Visit with RICARDO: No Interpretation(s) lactic: 2.3, elevated Last Impressions Chest X-Ray 11/28/16 0000 Signed Impressions: Service Date/Time: Monday, November 28, 2016 18:58 - CONCLUSION: 1. Mild cardiomegaly. 2. No infiltrate. Barrera Turner MD CBC & BMP Diagram 11/28/16 18:40 Vital Signs Date Time Temp Pulse Resp B/P Pulse Ox O2 Delivery O2 Flow Rate FiO2 11/28/16 18:47 111 14 99 Room Air 11/28/16 18:42 99.7 111 14 148/85 98 11/28/16 18:39 16 100 Room Air EKG sinus tachycardia rate 109 incomplete right bundle branch block and no acute ST elevation or injury pattern Differential Diagnosis accepted transfer of care from Dr. Cavanaugh; please refer to his dictation Narrative Course accepted transfer of care from Dr. Cavanaugh; follow up of pending labs and admission Lab called with marked abnormalities of patient's CBC with anemia hemoglobin 6.3 , platelet count of 2000 and neutropenia white count 200 (ANC 0); blood cultures are retained and patient presumptively placed on cefepime in anticipation of neutropenia however addition of vancomycin for pancytopenia on chemotherapy Case discussed with patient's oncologist who knows the patient well limit patient to his service to the oncology floor Patient informed of plan for admission Critical Care Narrative Aggregate critical care time was 35 minutes. Time to perform other separately billable procedures was not included in the critical care time. My time did not include minutes spent treating any other patients simultaneously or on activities that did not directly contribute to the patient's treatment. The services I provided to this patient were to treat and/or prevent clinically significant deterioration that could result in: Septic shock, I provided critical care services requiring my management, as noted below: Chart data review, documentation time, medication orders and management, vital sign assessments/reviewing monitor data, ordering and reviewing lab tests, ordering and interpreting/reviewing x-rays and diagnostic studies, care of the patient and discussion of the patient with the admitting physicians. Sepsis Criteria SIRS Criteria (2 or more): Heart rate over 90, WBC > 44779, < 4000 or > 10% bands Physician Communication Physician Communication Case discussed with Dr. Pierre regarding pancytopenia and neutropenia on chemotherapy with previous bone marrow transplant with marked thrombocytopenia; patient has had blood cultures obtained and received presumptively cefepime while add vancomycin as well as 2 units packed cells and [address] Fonseca will admit the patient to his service to the oncology floor. Neutropenic isolation precautions have been placed on patient. Diagnosis Primary Impression: Neutropenia Qualified Code: D70.1 - Chemotherapy-induced neutropenia Additional Impressions: Pancytopenia SIRS (systemic inflammatory response syndrome) Admitting Information Admitting Physician Requests: Admit Smitha Leigh MD Nov 28, 2016 19:24
[2016-11-28 19:27] LABS: MEAN CELL VOLUME 85.5 FL (80.0-100.0); MEAN CORPUSCULAR HEMOGLOBIN 30.4 PG (27.0-34.0); MEAN CORPUSCULAR HGB CONC 35.6 % (32.0-36.0); RED BLOOD COUNT 2.08 MIL/MM3 (4.00-5.30); WHITE BLOOD COUNT 0.2 TH/MM3 (4.0-11.0)
[2016-11-28] MEDS ORDERED: CEFEPIME INJ 2,000 MG in SODIUM CHLORIDE 0.9% INJ 100 ML IV ONE (19:30)
[2016-11-28 19:38] LABS: APTT (PATIENT) 35.9 SEC (24.3-30.1); INTERNATIONAL NORMALIZED RATIO 0.8 RATIO; PROTHROMBIN TIME - PATIENT 9.3 SEC (9.8-11.6)
[2016-11-28 19:40] LABS: HEMATOCRIT 17.7 % (35.0-46.0); HEMO FLAGS AUTO DIFF; PLATELET COUNT 2 TH/MM3 (150-450)
[2016-11-28 19:45] LABS: ANION GAP 9 MEQ/L (5-15); AST (GOT) 34 U/L (15-37); BICARBONATE 27.8 MEQ/L (21.0-32.0); BLOOD UREA NITROGEN 18 MG/DL (7-18); CHLORIDE 101 MEQ/L (98-107); GLOMERULAR FILTRATION RATE 79 ML/MIN (>89); POTASSIUM 3.5 MEQ/L (3.5-5.1); SODIUM (NA) 138 MEQ/L (136-145)
[2016-11-28] MEDS ORDERED: VANCOMYCIN INJ 1,250 MG in SODIUM CHLOR 0.9% 250 ML INJ 250 ML IV ONE (19:45)
[2016-11-28] MEDS ORDERED: SODIUM CHLOR 0.9% 250 ML INJ 250 ML IV ONE ×3 (19:45→20:15)
[2016-11-28 19:47] LABS: ALT (GPT) 83 U/L (10-53)
[2016-11-28 19:49] LABS: ALKALINE PHOSPHATASE 79 U/L (45-117)
[2016-11-28] MEDS ORDERED: diphenhydrAMINE HCL 50 MG/ML VIAL IV PRN (20:15)
[2016-11-28] MEDS ORDERED: diphenhydrAMINE HCL 50 MG/ML VIAL IV ONE (20:15)
[2016-11-28 20:58] LABS: POLYS (SEG NEUTROPHILS) 2 % (16-70); WBC DIFF SAMPLE 50
[2016-11-28] MEDS: SODIUM CHLORIDE 0.9% FLUSH 10 ML FLUSH IV FLUSH SCH (21:00)
[2016-11-28 21:02] LABS: OVALOCYTES 1+ (NORMAL); PLATELET ESTIMATE SMEAR RARE (NORMAL); PLATELET MORPHOLOGY NORMAL (NORMAL); SCAN/DIFF FINAL DIFF MANUAL; SPHEROCYTES 1+ (NORMAL)
[2016-11-29] VITALS (15 sets, daily range): BP systolic 114–176; BP diastolic 56–97; PULSE 68–113; RESP 16–20; TEMP 97.2–101.7; O2SAT 20–99
[2016-11-29] MEDS: NYSTAT/DIPHENHY/LIDO MOUTHWASH (Adult) 120ML PO SCH ×5 (01:21→21:00)
[2016-11-29] MEDS: ACETAMINOPHEN 325 MG TAB PO PRN ×4 (01:23→21:15)
--- NOTE | 2016-11-29 06:04 | MH ---
cc: MIKAYLA FONSECA M.D. DATE OF ADMISSION: 11/28/2016 REASON FOR ADMISSION Severe pancytopenia with neutropenic fever in a patient who has acute myeloid leukemia. HISTORY OF PRESENT ILLNESS Ashley is a pleasant 56-year-old female. She was diagnosed with acute myeloid leukemia with normal chromosome and FLT3 positive in August of this year. The patient had CLAG reinduction chemotherapy with Rydapt in September and the patient went into remission. She recently had high-dose Zuleyka-C consolidation chemotherapy first cycle on November 16. The patient tolerated the treatment well and she was discharged to home. I saw her in the office on Wednesday. The patient was started on Levaquin for neutropenia but she did not have any fevers. She was recently evaluated at [facility] for allogeneic bone marrow transplant. She was found to be a suitable candidate and they have started the transplant process. The patient has not been feeling well since yesterday. She has been feeling weak, tired, fatigue, dyspnea on exertion. Today she developed a fever and decided to come to the emergency room. In the emergency room her CBC was 0.2, hemoglobin 6.3, hematocrit 17.7, platelet count is only 2000. ER physician, Dr. Leigh, had called me and we discussed that the patient needs to be admitted for severe myelosuppression and neutropenic fever. I am seeing the patient in the emergency room and she is not feeling well. She is complaining of weakness, fatigue. She denies any bleeding episodes. Her temperature at home was 101.5 and in the ER it is 99.7 when she came in. PAST MEDICAL HISTORY 1. Acute myeloid leukemia, FLT3 positive. 2. Anxiety disorder. 3. COPD. 4. Depression. 5. Hypercholesterolemia. 6. Hypertension. PAST SURGICAL HISTORY 1. 2. Cholecystectomy 3. Colon resection. 4. Complete hysterectomy. 5. Jhdhxn-[id number]-Dsmo placement 6. Right foot surgery. ALLERGIES ROBAXIN AND SULFA. MEDICATIONS: 1. Carvedilol. 2. Amlodipine 3. Losartan 4. Hydrochlorothiazide 5. Prednisone FAMILY HISTORY: Patient's mother at the age of 52 from a stroke. Father at the age of 63 from brain aneurysm. The patient does not have any siblings or any sons. She has two daughters. SOCIAL HISTORY: The patient is , lives by herself. She used to smoke cigarettes. She quit 12 years ago. She used to smoke one pack a day for at least 35 years. She does not drink alcohol. PHYSICAL EXAMINATION: Physical examination reveals a well-developed, well-nourished white female in no apparent distress. Vital signs: Temperature 99.7, heart rate is 100, blood pressure 116/58. O2 saturation 100% on room air. HEENT: PERRLA, EOMI. Facial swelling noted. No oral lesions noted. Neck: No lymphadenopathy. Lungs: Clear. No wheezing, rhonchi or rales. Heart: Tachycardia with no murmur. Abdomen: Soft, nontender. No hepatosplenomegaly. Extremities: No pedal edema. Neurology: Awake, alert, oriented times three. Skin: No significant lesions noted. ASSESSMENT 1. Acute myeloid leukemia status post first cycle of high-dose Zuleyka-C chemotherapy a week ago. 2. Severe myelosuppression from the chemotherapy. 3. Neutropenic fever. 4. Hypertension PLAN: The patient has been admitted to the hospital. She has severe myelosuppression. Severe anemia with hemoglobin 6.3 and severe thrombocytopenia with a platelet count of 2000. We will give her blood and platelet transfusion today. All blood products will be radiated as she is a bone marrow transplant candidate. We will stop the Levaquin and treat her with vancomycin and cefepime. Blood cultures and urine culture have been obtained, chest x-ray has also been done. The patient is on Rydapt. This is non-formulary but the patient does have it at home and I have advised her that she needs to ask her friend to bring in the medication. She is on Rydapt 50 milligrams twice a day. We will monitor her CBC and support her with blood and platelet transfusion. The patient has asked questions and these were answered to her satisfaction. I have discussed the case with ER physician, Dr. Leigh. I have discussed the case with the patient's nurse as well. We will continue her home medications. Sandy Fonseca MD /STEVE /1:06 AM /5:[address] [facility]
[2016-11-29] MEDS: CEFEPIME INJ 2,000 MG in SODIUM CHLORIDE 0.9% INJ 100 ML IV SCH ×3 (06:21→21:14)
[2016-11-29] MEDS: HYDROCHLOROTHIAZIDE 12.5 MG CAP PO SCH (09:00)
[2016-11-29] MEDS: LOSARTAN 50 MG TAB PO SCH (09:00)
--- NOTE | 2016-11-29 10:07 | PD.ONC.PN ---
Subjective Subjective Remarks Tmax 100.9 overnight. "I feel awful." She states she feels very tired, had difficulty sleeping last night due to the interventions of blood draws, abx infusions. +mild cough. + sore throat. Objective Data Date Time Temp Pulse Resp B/P Pulse Ox O2 Delivery O2 Flow Rate FiO2 11/29/16 04:34 98.7 95 19 121/56 98 11/29/16 04:09 99.4 98 20 118/57 97 11/29/16 03:00 19 11/29/16 01:38 101.0 113 20 134/71 97 11/29/16 01:36 100.9 107 20 132/66 20 11/29/16 00:31 100.0 108 20 138/78 97 11/29/16 00:15 100.5 103 20 143/68 98 11/28/16 22:40 99.6 118 23 136/68 97 11/28/16 21:15 99.5 100 16 116/58 100 Room Air 11/28/16 21:00 93 14 133/62 97 Room Air 11/28/16 20:44 98 11/28/16 20:00 98 23 103/61 99 Room Air 11/28/16 18:47 111 14 99 Room Air 11/28/16 18:42 99.7 111 14 148/85 98 11/28/16 18:39 16 100 Room Air Result Diagram: 11/28/16 1840 11/28/16 1840 Laboratory Results Laboratory Tests Test 11/28/16 11/28/16 18:40 19:56 White Blood Count 0.2 TH/MM3 Red Blood Count 2.08 MIL/MM3 Hemoglobin 6.3 GM/DL Hematocrit 17.7 % Mean Corpuscular Volume 85.5 FL Mean Corpuscular Hemoglobin 30.4 PG Mean Corpuscular Hemoglobin 35.6 % Concent Red Cell Distribution Width 19.0 % Platelet Count 2 TH/MM3 Mean Platelet Volume 11.1 FL Neutrophils (%) (Auto) % Lymphocytes (%) (Auto) % Monocytes (%) (Auto) % Eosinophils (%) (Auto) % Basophils (%) (Auto) % Neutrophils # (Auto) TH/MM3 Lymphocytes # (Auto) TH/MM3 Monocytes # (Auto) TH/MM3 Eosinophils # (Auto) TH/MM3 Basophils # (Auto) TH/MM3 CBC Comment AUTO DIFF Differential Total Cells 50 Counted Neutrophils % (Manual) 2 % Lymphocytes % 98 % Neutrophils # (Manual) 0.0 TH/MM3 Differential Comment FINAL DIFF MANUAL Platelet Estimate RARE Platelet Morphology Comment NORMAL Spherocytes 1+ Ovalocytes 1+ Prothrombin Time 9.3 SEC Prothromb Time International 0.8 RATIO Ratio Activated Partial 35.9 SEC Thromboplast Time Sodium Level 138 MEQ/L Potassium Level 3.5 MEQ/L Chloride Level 101 MEQ/L Carbon Dioxide Level 27.8 MEQ/L Anion Gap 9 MEQ/L Blood Urea Nitrogen 18 MG/DL Creatinine 0.75 MG/DL Estimat Glomerular Filtration 79 ML/MIN Rate Random Glucose 137 MG/DL Lactic Acid Level 2.3 mmol/L Calcium Level 9.3 MG/DL Total Bilirubin 2.0 MG/DL Aspartate Amino Transf 34 U/L (AST/SGOT) Alanine Aminotransferase 83 U/L (ALT/SGPT) Alkaline Phosphatase 79 U/L Total Protein 7.0 GM/DL Albumin 3.4 GM/DL Lipase 62 U/L Blood Type A POSITIVE Antibody Screen NEGATIVE Crossmatch Irradiated/Leukocyte-Reduced RBC Blood Bank Comment Culture Results Microbiology Date/Time Procedure Status Source Growth 11/28/16 19:30 Aerobic Blood Culture Received Blood Peripheral Pending 11/28/16 19:30 Anaerobic Blood Culture Received Blood Peripheral Pending 11/28/16 19:40 Aerobic Blood Culture Received Blood Peripheral Pending 11/28/16 19:40 Anaerobic Blood Culture Received Blood Peripheral Pending Administered Medications Medications (Trade) Dose Ordered Sig/Zeynep Route PRN Reason Start Time Stop Time Status Last Admin Dose Admin Sodium Chloride (NS Flush) 2 ml BID IV FLUSH 11/28/16 21:00 11/28/16 21:00 Multi-Ingredient Mouthwash/Gargle 5 ml 5 ml QID PO 11/29/16 01:00 11/29/16 06:38 Cefepime HCl/ Sodium Chloride (Maxipime Inj/NS Inj) 100 ml @ 200 mls/hr Q8H IV 11/29/16 04:00 11/29/16 06:21 Acetaminophen (Tylenol) 650 mg Q4H PRN PO FEVER > 100.5 OR HEADACHE 11/29/16 01:30 11/29/16 06:27 Objective Remarks GENERAL: Middle aged female supine in bed, fatigued appearing. SKIN: Warm and dry. HEAD: Normocephalic. EYES: No injection or drainage. NECK: Supple, trachea midline. CARDIOVASCULAR: Regular rate and rhythm RESPIRATORY: Breath sounds equal bilaterally. No accessory muscle use. GASTROINTESTINAL: Abdomen soft, non-tender, nondistended. EXTREMITIES: No cyanosis NEUROLOGICAL: No obvious focal deficit. Awake, alert, and oriented x3. Assessment/Plan Problem List: (1) Neutropenic fever Status: Acute Plan: --on vancomycin and cefepime. --BC no growth. --CXR: mild cardiomegaly --U/A-pending (2) Acute myeloid leukemia Status: Acute Plan: --in remission, status post C1 consolidation with high-dose Zuleyka-C one week ago. --being evaluated at [facility] for transplant --patient's home medication, Rydapt to be resumed. (3) Hypertension Status: Acute Plan: --on Losartan, HCTZ, Coreg (4) Pancytopenia Status: Acute Plan: --due to chemotherapy --transfuse 2units pRBC for hgb less than 8 --transfuse 1 unit platelets for platelet count less than 15 Assessment 56y/o with severe pancytopenia, neutropenic fever in a patient who has acute myeloid leukemia. h/o Acute myeloid leukemia, FLT3 positive. Anxiety disorder. COPD. Depression. Hypercholesterolemia. Hypertension. Attending Statement Complaining of fever and fatigue cultures are pending Continue antibiotics Continued trans fusion support The exam, history, and the medical decision-making described in the above note were completed with the assistance of the mid-level provider. I reviewed and agree with the findings presented. I attest that I had a [id number] encounter with the patient on the same day, and personally performed and documented my assessment and findings in the medical record. Julianna Mcdaniel Nov 29, 2016 10:07 April Fonseca MD Nov 29, 2016 22:22
[2016-11-29 10:23] LABS: MEAN CELL VOLUME 87.1 FL (80.0-100.0); MEAN CORPUSCULAR HEMOGLOBIN 30.4 PG (27.0-34.0); MEAN CORPUSCULAR HGB CONC 34.9 % (32.0-36.0); PLATELET COUNT 23 TH/MM3 (150-450); RED CELL DISTRIBUTION WIDTH 17.1 % (11.6-17.2); WHITE BLOOD COUNT 0.1 TH/MM3 (4.0-11.0)
[2016-11-29 10:33] LABS: HEMO FLAGS AUTO DIFF
[2016-11-29 10:43] LABS: BICARBONATE 28.6 MEQ/L (21.0-32.0); POTASSIUM 3.5 MEQ/L (3.5-5.1)
[2016-11-29] MEDS: VANCOMYCIN INJ 1,350 MG in SODIUM CHLORID 0.9% 500 ML INJ 500 ML IV SCH ×2 (10:54→22:16)
[2016-11-29] MEDS: SODIUM CHLORIDE 0.9% FLUSH 10 ML FLUSH IV FLUSH SCH ×2 (10:55→22:16)
[2016-11-29 11:32] LABS: PLATELET ESTIMATE SMEAR LOW (NORMAL); PLATELET MORPHOLOGY NORMAL (NORMAL); WBC DIFF SAMPLE 10
[2016-11-29 11:33] LABS: SCAN/DIFF FINAL DIFF MANUAL
[2016-11-29] MEDS ORDERED: FUROSEMIDE 20 MG/2 ML VIAL IV ONE (12:45)
[2016-11-29] MEDS: CARVEDILOL 3.125 MG TAB PO SCH (13:16)
--- NOTE | 2016-11-29 18:29 | EKG ---
Date Performed: 11/28/2016 Time Performed: 18:33:39 PTAGE: 56 years EKG: SINUS TACHYCARDIA INCOMPLETE RIGHT BUNDLE BRANCH BLOCK ST DEVIATION AND MODERATE T-WAVE ABN ORMALITY, CONSIDER ANTERIOR ISCHEMIA ABNORMAL ECG PREVIOUS TRACING : 07/30/2016 02.27 Compared to prior tracing no significant change DOCTOR: Yovanny Odell Interpretating Date/Time 11/29/2016 18:27:25
[2016-11-29 21:09] LABS: MEAN CORPUSCULAR HGB CONC 36.5 % (32.0-36.0)
[2016-11-29] MEDS: RYDAPT 25 MG PO SCH (22:15)
[2016-11-29] MEDS ORDERED: LOSARTAN 50 MG TAB PO ONE (23:15)
[2016-11-29] MEDS ORDERED: HYDROCHLOROTHIAZIDE 12.5 MG CAP PO ONE (23:15)
[2016-11-29] MEDS: PROCHLORPERAZINE MALEATE 10 MG TAB PO SCH (23:15)
[2016-11-29 23:51] LABS: BLOOD, URINE NEG (NEG); COMMENT (UR) CULT NOT INDICATED; CULTURE IF INDICATED CULT NOT INDICATED; GLUCOSE,URINE NEG (NEG); KETONE, URINE NEG (NEG); NITRITE,URINE NEG (NEG); PH, URINE 6.5 (5.0-8.5); RENAL EPITHELIAL CELLS <1 /hpf; SQUAMOUS EPITHELIAL CELL URINE <1 /hpf (0-5); TRANSITIONAL EPI CELLS, URINE <1 /hpf; URINE COLOR YELLOW (YELLW/STRAW)
[2016-11-30] VITALS (7 sets, daily range): BP systolic 114–184; BP diastolic 74–95; PULSE 74–100; RESP 16–18; TEMP 96.2–100.1; O2SAT 95–99
[2016-11-30] MEDS: SODIUM CHLORIDE 0.9% FLUSH 10 ML FLUSH IV FLUSH PRN ×2 (03:55→06:33)
[2016-11-30] MEDS: CEFEPIME INJ 2,000 MG in SODIUM CHLORIDE 0.9% INJ 100 ML IV SCH ×3 (03:55→20:35)
[2016-11-30] MEDS: SODIUM CHLORIDE 0.9% FLUSH 10 ML FLUSH IVF PRN ×2 (03:55→06:33)
[2016-11-30] MEDS: ACETAMINOPHEN 325 MG TAB PO PRN ×3 (04:08→22:25)
[2016-11-30 05:40] LABS: EOSINOPHIL % 0.2 % (0.0-4.0); HEMATOCRIT 27.3 % (35.0-46.0); LYMPHOCYTE # 0.2 TH/MM3 (1.0-4.8); MEAN CELL VOLUME 84.5 FL (80.0-100.0); MEAN CORPUSCULAR HEMOGLOBIN 30.9 PG (27.0-34.0); MONO % 0.7 % (0.0-8.0); NEUT % 1.1 % (16.0-70.0); RED BLOOD COUNT 3.23 MIL/MM3 (4.00-5.30); RED CELL DISTRIBUTION WIDTH 15.9 % (11.6-17.2); WHITE BLOOD COUNT 0.2 TH/MM3 (4.0-11.0)
[2016-11-30 05:48] LABS: HEMO FLAGS AUTO DIFF
[2016-11-30 05:50] LABS: PLATELET COUNT 16 TH/MM3 (150-450)
[2016-11-30 06:05] LABS: POTASSIUM 3.4 MEQ/L (3.5-5.1)
[2016-11-30] MEDS ORDERED: SODIUM CHLORIDE 0.9% FLUSH 10 ML FLUSH IV FLUSH PRN (06:45)
[2016-11-30 06:46] LABS: OVALOCYTES 1+ (NORMAL); TEARDROP RBCS 1+ (NORMAL); WBC DIFF SAMPLE 25
[2016-11-30 06:47] LABS: PLATELET ESTIMATE SMEAR LOW (NORMAL); PLATELET MORPHOLOGY NORMAL (NORMAL); SCAN/DIFF FINAL DIFF MANUAL
[2016-11-30] MEDS: RYDAPT 25 MG PO SCH ×2 (08:27→22:17)
[2016-11-30] MEDS: NYSTAT/DIPHENHY/LIDO MOUTHWASH (Adult) 120ML PO SCH ×4 (08:28→22:25)
[2016-11-30] MEDS: CARVEDILOL 3.125 MG TAB PO SCH (08:29)
[2016-11-30] MEDS: HYDROCHLOROTHIAZIDE 12.5 MG CAP PO SCH (08:29)
[2016-11-30] MEDS: VANCOMYCIN INJ 1,350 MG in SODIUM CHLORID 0.9% 500 ML INJ 500 ML IV SCH ×2 (08:29→22:20)
[2016-11-30] MEDS: SODIUM CHLORIDE 0.9% FLUSH 10 ML FLUSH IV FLUSH SCH ×2 (08:29→21:00)
[2016-11-30] MEDS: LOSARTAN 50 MG TAB PO SCH (08:30)
[2016-11-30] MEDS: PROCHLORPERAZINE MALEATE 10 MG TAB PO SCH ×4 (08:30→22:17)
--- NOTE | 2016-11-30 12:42 | PD.ONC.PN ---
Subjective Subjective Remarks Tmax 101.7 overnight. No chills with fever last night and has not had any fever today. No new symptoms. Difficulty sleeping last night d/t multiple transfusions/infusions. Objective Data Date Time Temp Pulse Resp B/P Pulse Ox O2 Delivery O2 Flow Rate FiO2 11/30/16 12:00 97.7 78 16 114/74 98 11/30/16 08:00 97.7 98 18 145/95 99 11/30/16 04:55 164/78 11/30/16 04:00 96.2 74 18 184/94 95 11/30/16 00:00 98.2 81 16 141/85 95 11/29/16 20:10 101.7 108 16 161/85 96 11/29/16 20:00 99.6 82 16 170/97 98 11/29/16 17:00 98.7 80 16 147/78 99 11/29/16 16:42 99.2 79 16 118/68 95 11/29/16 16:00 98.9 68 18 114/69 96 11/29/16 13:27 99.6 91 16 176/87 98 11/29/16 13:07 98.8 87 16 155/89 99 11/30/16 11/30/16 11/30/16 06:59 14:59 22:59 Intake Total 2140 ml Output Total 300 ml Balance 1840 ml Result Diagram: 11/30/16 0400 11/30/16 0400 Laboratory Results Laboratory Tests Test 11/29/16 11/30/16 22:00 04:00 Urine Color YELLOW Urine Turbidity CLEAR Urine pH 6.5 Urine Specific Mayo 1.016 Urine Protein TRACE mg/dL Urine Glucose (UA) NEG mg/dL Urine Ketones NEG mg/dL Urine Occult Blood NEG Urine Nitrite NEG Urine Bilirubin NEG Urine Urobilinogen LESS THAN 2.0 MG/DL Urine Leukocyte Esterase NEG Urine RBC LESS THAN 1 /hpf Urine WBC 1 /hpf Urine Squamous Epithelial <1 /hpf Cells Urine Transitional Epithelial <1 /hpf Cells Urine Renal Epithelial Cells <1 /hpf Microscopic Urinalysis Comment CULT NOT INDICATED White Blood Count 0.2 TH/MM3 Red Blood Count 3.23 MIL/MM3 Hemoglobin 10.0 GM/DL Hematocrit 27.3 % Mean Corpuscular Volume 84.5 FL Mean Corpuscular Hemoglobin 30.9 PG Mean Corpuscular Hemoglobin 36.5 % Concent Red Cell Distribution Width 15.9 % Platelet Count 16 TH/MM3 Mean Platelet Volume 8.2 FL Neutrophils (%) (Auto) 1.1 % Lymphocytes (%) (Auto) 98.0 % Monocytes (%) (Auto) 0.7 % Eosinophils (%) (Auto) 0.2 % Basophils (%) (Auto) 0.0 % Neutrophils # (Auto) 0.0 TH/MM3 Lymphocytes # (Auto) 0.2 TH/MM3 Monocytes # (Auto) 0.0 TH/MM3 Eosinophils # (Auto) 0.0 TH/MM3 Basophils # (Auto) 0.0 TH/MM3 CBC Comment AUTO DIFF Differential Total Cells 25 Counted Lymphocytes % 100 % Differential Comment FINAL DIFF MANUAL Platelet Estimate LOW Platelet Morphology Comment NORMAL Tear Drop Cells 1+ Ovalocytes 1+ Sodium Level 140 MEQ/L Potassium Level 3.4 MEQ/L Chloride Level 104 MEQ/L Carbon Dioxide Level 29.0 MEQ/L Anion Gap 7 MEQ/L Blood Urea Nitrogen 14 MG/DL Creatinine 0.67 MG/DL Estimat Glomerular Filtration 90 ML/MIN Rate Random Glucose 102 MG/DL Calcium Level 9.0 MG/DL Culture Results Microbiology Date/Time Procedure Status Source Growth 11/28/16 19:30 Aerobic Blood Culture - Preliminary Resulted Blood Peripheral NO GROWTH IN 2 DAYS 11/28/16 19:30 Anaerobic Blood Culture - Preliminary Resulted Blood Peripheral NO GROWTH IN 2 DAYS 11/28/16 19:40 Aerobic Blood Culture - Preliminary Resulted Blood Peripheral NO GROWTH IN 2 DAYS 11/28/16 19:40 Anaerobic Blood Culture - Preliminary Resulted Blood Peripheral NO GROWTH IN 2 DAYS 11/29/16 21:05 Aerobic Blood Culture - Preliminary Resulted Blood Peripheral NO GROWTH IN 1 DAY 11/29/16 21:05 Anaerobic Blood Culture - Preliminary Resulted Blood Peripheral NO GROWTH IN 1 DAY 11/30/16 00:12 Aerobic Blood Culture Received Blood Peripheral Pending 11/30/16 00:12 Anaerobic Blood Culture Received Blood Peripheral Pending Administered Medications Medications (Trade) Dose Ordered Sig/Zeynep Route PRN Reason Start Time Stop Time Status Last Admin Dose Admin Sodium Chloride (NS Flush) 2 ml UNSCH PRN IV FLUSH FLUSH AFTER USING IV ACCESS 11/28/16 18:45 11/30/16 06:33 Sodium Chloride (NS Flush) 2 ml BID IV FLUSH 11/28/16 21:00 11/30/16 08:29 Sodium Chloride (NS Flush) 2 ml UNSCH PRN IVF FLUSH AFTER USING IV ACCESS 11/28/16 20:00 11/30/16 06:33 Multi-Ingredient Mouthwash/Gargle 5 ml 5 ml QID PO 11/29/16 01:00 11/30/16 08:28 Vancomycin HCl 1350 mg/Sodium Chloride 513.5 ml @ 250 mls/hr Q12H IV 11/29/16 09:00 11/30/16 08:29 Cefepime HCl/ Sodium Chloride (Maxipime Inj/NS Inj) 100 ml @ 200 mls/hr Q8H IV 11/29/16 04:00 11/30/16 03:55 Acetaminophen (Tylenol) 650 mg Q4H PRN PO FEVER > 100.5 OR HEADACHE 11/29/16 01:30 11/30/16 08:29 Carvedilol (Coreg) 3.125 mg DAILY PO 11/29/16 09:00 11/30/16 08:29 Losartan Potassium (Cozaar) 50 mg DAILY PO 11/29/16 09:00 11/30/16 08:30 Hydrochlorothiazide (Microzide) 12.5 mg DAILY PO 11/29/16 09:00 11/30/16 08:29 Patient Own Medication PT OWN MED: RYD... BID PO 11/29/16 21:00 11/30/16 08:27 Prochlorperazine Maleate (Compazine) 10 mg QID PO 11/29/16 23:15 11/30/16 08:30 Objective Remarks GENERAL: Middle aged female upright in bed, in nad SKIN: Warm and dry. port in place, right chest wall. HEAD: Normocephalic. EYES: No injection or drainage. NECK: Supple, trachea midline. CARDIOVASCULAR: Regular rate and rhythm RESPIRATORY: Breath sounds equal bilaterally. No accessory muscle use. GASTROINTESTINAL: Abdomen soft, non-tender, nondistended. EXTREMITIES: No cyanosis NEUROLOGICAL: awake and alert, normal speech. Assessment/Plan Problem List: (1) Neutropenic fever Status: Acute Plan: 11/30: spiked another fever last night. blood cultures showing no growth thus far. continue abx. will consult ID if spiking fevers persist. --on vancomycin and cefepime. --BC 7: no growth/pending --BC, 7. no growth. --CXR: mild cardiomegaly --U/A--neg (2) Hypertension Status: Acute Plan: 11/30: increase htn meds back to home doses, blood pressure rising again. --on Losartan, HCTZ, Coreg (3) Pancytopenia Status: Acute Plan: --due to chemotherapy --transfuse 2units pRBC for hgb less than 8 --transfuse 1 unit platelets for platelet count less than 15 (4) Acute myeloid leukemia Status: Acute Plan: --in remission, status post C1 consolidation with high-dose Zuleyka-C one week ago. --being evaluated at [facility] for transplant --patient's home medication, Rydapt to be resumed. Assessment 56y/o with severe pancytopenia, neutropenic fever in a patient who has acute myeloid leukemia. h/o Acute myeloid leukemia, FLT3 positive. Anxiety disorder. COPD. Depression. Hypercholesterolemia. Hypertension. Attending Statement Had fever last night She's a febrile now She's feeling better Continue present Plan The exam, history, and the medical decision-making described in the above note were completed with the assistance of the mid-level provider. I reviewed and agree with the findings presented. I attest that I had a [id number] encounter with the patient on the same day, and personally performed and documented my assessment and findings in the medical record. Julianna Mcdaniel Nov 30, 2016 12:42 April Fonseca MD Nov 30, 2016 23:39
[2016-11-30] MEDS ORDERED: POTASSIUM CHLORIDE 10 MEQ CONTROLLED RELEASE TAB PO ONE (13:00)
[2016-12-01] VITALS (7 sets, daily range): BP systolic 131–171; BP diastolic 70–99; PULSE 77–90; RESP 16–20; TEMP 97.4–103; O2SAT 96–98
[2016-12-01] MEDS: ACETAMINOPHEN 325 MG TAB PO PRN ×3 (04:01→20:36)
[2016-12-01] MEDS: CEFEPIME INJ 2,000 MG in SODIUM CHLORIDE 0.9% INJ 100 ML IV SCH ×3 (04:06→20:37)
[2016-12-01] MEDS: SODIUM CHLORIDE 0.9% FLUSH 10 ML FLUSH IV FLUSH PRN ×2 (04:11→05:46)
[2016-12-01 05:34] LABS: HEMATOCRIT 29.4 % (35.0-46.0); MEAN CELL VOLUME 85.8 FL (80.0-100.0); MEAN CORPUSCULAR HEMOGLOBIN 30.1 PG (27.0-34.0); MEAN CORPUSCULAR HGB CONC 35.1 % (32.0-36.0); RED BLOOD COUNT 3.43 MIL/MM3 (4.00-5.30); RED CELL DISTRIBUTION WIDTH 15.3 % (11.6-17.2); WHITE BLOOD COUNT 0.2 TH/MM3 (4.0-11.0)
[2016-12-01 05:42] LABS: HEMO FLAGS AUTO DIFF
[2016-12-01 05:44] LABS: PLATELET COUNT 14 TH/MM3 (150-450)
[2016-12-01 05:59] LABS: POTASSIUM 3.5 MEQ/L (3.5-5.1)
[2016-12-01 07:07] LABS: WBC DIFF SAMPLE 30
[2016-12-01 07:08] LABS: OVALOCYTES 1+ (NORMAL); PLATELET ESTIMATE SMEAR LOW (NORMAL); PLATELET MORPHOLOGY NORMAL (NORMAL); SCAN/DIFF FINAL DIFF MANUAL
[2016-12-01] MEDS: VANCOMYCIN INJ 1,350 MG in SODIUM CHLORID 0.9% 500 ML INJ 500 ML IV SCH ×2 (08:01→22:27)
[2016-12-01] MEDS: PROCHLORPERAZINE MALEATE 10 MG TAB PO SCH ×2 (08:01→13:51)
[2016-12-01] MEDS: NYSTAT/DIPHENHY/LIDO MOUTHWASH (Adult) 120ML PO SCH (08:01)
[2016-12-01] MEDS: CARVEDILOL 3.125 MG TAB PO SCH (08:01)
[2016-12-01] MEDS: RYDAPT 25 MG PO SCH ×2 (08:02→22:28)
[2016-12-01] MEDS: HYDROCHLOROTHIAZIDE 25 MG TAB PO SCH (08:02)
[2016-12-01] MEDS: LOSARTAN 50 MG TAB PO SCH (08:02)
[2016-12-01] MEDS: SODIUM CHLORIDE 0.9% FLUSH 10 ML FLUSH IV FLUSH SCH ×2 (08:03→22:28)
[2016-12-01] MEDS ORDERED: hydrALAZINE HCL 20 MG/ML VIAL IV PRN (10:30)
[2016-12-01] MEDS ORDERED: Vancomycin Consult Pharmacy 1 EA OTHER SCH (10:45)
--- NOTE | 2016-12-01 10:52 | PD.ONC.PN ---
Subjective Subjective Remarks Tmax 100.1 overnight. Patient complaining of frontal headache present since this morning. No nausea or vomiting. No bleeding. +mouth sore. Objective Data Date Time Temp Pulse Resp B/P Pulse Ox O2 Delivery O2 Flow Rate FiO2 12/01/16 07:50 98.1 84 20 160/81 96 12/01/16 03:55 97.4 85 16 171/99 98 12/01/16 00:00 99.1 90 18 134/79 97 11/30/16 20:30 100.1 100 18 134/83 96 11/30/16 16:00 99.6 83 157/88 96 11/30/16 12:00 97.7 78 16 114/74 98 Result Diagram: 12/01/16 0400 12/01/16 0400 Laboratory Results Laboratory Tests Test 12/01/16 12/01/16 04:00 06:12 White Blood Count 0.2 TH/MM3 Red Blood Count 3.43 MIL/MM3 Hemoglobin 10.3 GM/DL Hematocrit 29.4 % Mean Corpuscular Volume 85.8 FL Mean Corpuscular Hemoglobin 30.1 PG Mean Corpuscular Hemoglobin 35.1 % Concent Red Cell Distribution Width 15.3 % Platelet Count 14 TH/MM3 Mean Platelet Volume 7.9 FL Neutrophils (%) (Auto) % Lymphocytes (%) (Auto) % Monocytes (%) (Auto) % Eosinophils (%) (Auto) % Basophils (%) (Auto) % Neutrophils # (Auto) TH/MM3 Lymphocytes # (Auto) TH/MM3 Monocytes # (Auto) TH/MM3 Eosinophils # (Auto) TH/MM3 Basophils # (Auto) TH/MM3 CBC Comment AUTO DIFF Differential Total Cells 30 Counted Lymphocytes % 100 % Neutrophils # (Manual) 0.0 TH/MM3 Differential Comment FINAL DIFF MANUAL Platelet Estimate LOW Platelet Morphology Comment NORMAL Ovalocytes 1+ Sodium Level 140 MEQ/L Potassium Level 3.5 MEQ/L Chloride Level 105 MEQ/L Carbon Dioxide Level 25.0 MEQ/L Anion Gap 10 MEQ/L Blood Urea Nitrogen 13 MG/DL Creatinine 0.70 MG/DL Estimat Glomerular Filtration 86 ML/MIN Rate Random Glucose 106 MG/DL Calcium Level 9.3 MG/DL Blood Bank Comment Culture Results Microbiology Date/Time Procedure Status Source Growth 11/28/16 19:30 Aerobic Blood Culture - Preliminary Resulted Blood Peripheral NO GROWTH IN 2 DAYS 11/28/16 19:30 Anaerobic Blood Culture - Preliminary Resulted Blood Peripheral NO GROWTH IN 2 DAYS 11/28/16 19:40 Aerobic Blood Culture - Preliminary Resulted Blood Peripheral NO GROWTH IN 2 DAYS 11/28/16 19:40 Anaerobic Blood Culture - Preliminary Resulted Blood Peripheral NO GROWTH IN 2 DAYS 11/29/16 21:05 Aerobic Blood Culture - Preliminary Resulted Blood Peripheral NO GROWTH IN 1 DAY 11/29/16 21:05 Anaerobic Blood Culture - Preliminary Resulted Blood Peripheral NO GROWTH IN 1 DAY 11/30/16 00:12 Aerobic Blood Culture Received Blood Peripheral Pending 11/30/16 00:12 Anaerobic Blood Culture Received Blood Peripheral Pending Administered Medications Medications (Trade) Dose Ordered Sig/Zeynep Route PRN Reason Start Time Stop Time Status Last Admin Dose Admin Sodium Chloride (NS Flush) 2 ml UNSCH PRN IV FLUSH FLUSH AFTER USING IV ACCESS 11/28/16 18:45 11/30/16 06:33 Sodium Chloride (NS Flush) 2 ml BID IV FLUSH 11/28/16 21:00 12/01/16 08:03 Sodium Chloride (NS Flush) 2 ml UNSCH PRN IVF FLUSH AFTER USING IV ACCESS 11/28/16 20:00 11/30/16 06:33 Multi-Ingredient Mouthwash/Gargle 5 ml 5 ml QID PO 11/29/16 01:00 12/01/16 08:01 Vancomycin HCl 1350 mg/Sodium Chloride 513.5 ml @ 250 mls/hr Q12H IV 11/29/16 09:00 12/01/16 08:01 Cefepime HCl/ Sodium Chloride (Maxipime Inj/NS Inj) 100 ml @ 200 mls/hr Q8H IV 11/29/16 04:00 12/01/16 04:06 Acetaminophen (Tylenol) 650 mg Q4H PRN PO FEVER > 100.5 OR HEADACHE 11/29/16 01:30 12/01/16 08:02 Carvedilol (Coreg) 3.125 mg DAILY PO 11/29/16 09:00 12/01/16 08:01 Patient Own Medication PT OWN MED: RYD... BID PO 11/29/16 21:00 12/01/16 08:02 Prochlorperazine Maleate (Compazine) 10 mg QID PO 11/29/16 23:15 12/01/16 08:01 Sodium Chloride (NS Flush) 5 ml UNSCH PRN IV FLUSH SEE PROTOCOL TABLE 11/30/16 06:45 12/01/16 05:46 Sodium Chloride (NS Flush) 5 ml UNSCH PRN IV FLUSH NEEDED 11/30/16 06:45 12/01/16 04:11 Hydrochlorothiazide (Hydrodiuril) 25 mg DAILY PO 12/01/16 09:00 12/01/16 08:02 Losartan Potassium (Cozaar) 100 mg DAILY PO 12/01/16 09:00 12/01/16 08:02 Objective Remarks GENERAL: Middle aged female sitting up in room in [facility]. SKIN: Warm and dry. port in place, right chest wall. HEAD: Normocephalic. EYES: No injection or drainage. MOUTH: herpetic lip lesion, left lip. NECK: Supple, trachea midline. CARDIOVASCULAR: Regular rate and rhythm RESPIRATORY: Breath sounds equal bilaterally. No accessory muscle use. GASTROINTESTINAL: Abdomen soft, non-tender, nondistended. EXTREMITIES: No cyanosis NEUROLOGICAL: awake and alert, normal speech. moving all extremities. no obvious focal deficit. Assessment/Plan Problem List: (1) Neutropenic fever Status: Acute Plan: 12/01: bc no growth. continue Vanco and Cefepime. add valtrex for mouth sore. patient has been receiving tylenol for headache which may have been masking fever. i have changed indication to fever only and will add roxicodone for headache. 11/30: spiked another fever last night. blood cultures showing no growth thus far. continue abx. will consult ID if spiking fevers persist. --on vancomycin and cefepime. --BC : no growth/pending --BC, 11.28 no growth. --CXR: mild cardiomegaly --U/A--neg (2) Hypertension Status: Acute Plan: --on Losartan, HCTZ, Coreg --PRN hydralazine (3) Pancytopenia Status: Acute Plan: --due to chemotherapy --transfuse 2units pRBC for hgb less than 8 --transfuse 1 unit platelets for platelet count less than 15 (4) Acute myeloid leukemia Status: Acute Plan: --in remission, status post C1 consolidation with high-dose Zuleyka-C one week ago. --being evaluated at [facility] for transplant --patient's home medication, Rydapt to be resumed. (5) Headache Status: Acute Plan: --CT brain pending --likely tension headache. Assessment 56y/o with severe pancytopenia, neutropenic fever in a patient who has acute myeloid leukemia. h/o Acute myeloid leukemia, FLT3 positive. Anxiety disorder. COPD. Depression. Hypercholesterolemia. Hypertension. Attending Statement Complaining of Mouth sores Denies any fever Wait for bone marrow recovery Continue present support The exam, history, and the medical decision-making described in the above note were completed with the assistance of the mid-level provider. I reviewed and agree with the findings presented. I attest that I had a [id number] encounter with the patient on the same day, and personally performed and documented my assessment and findings in the medical record. Problem Qualifiers (1) Headache: Qualified Code: G44.209 - Acute non intractable tension-type headache Julianna Mcdaniel Dec 01, 2016 10:52 April Fonseca MD Dec 02, 2016 00:41
[2016-12-01] MEDS: ACYCLOVIR 5% CREAM 5 GM TUBE TOPICAL SCH ×3 (13:51→22:31)
[2016-12-01] MEDS: valACYclovir HCL 500 MG TAB PO SCH ×2 (13:51→22:31)
--- NOTE | 2016-12-01 14:44 | RADRPT ---
EXAM DATE/TIME: 12/01/2016 13:17 [facility] COMPARISON: No previous studies available for comparison. INDICATIONS : Headaches for three days in frontal region. RADIATION DOSE: 56.35 CTDIvol (mGy) MEDICAL HISTORY : Cardiovascular disease. Hypertension. Cervical cancer, Lupus, RA SURGICAL HISTORY : Tubal ligation. Hysterectomy.Recent colonoscopy/endoscopy. ENCOUNTER: Initial ACUITY: 3 days PAIN SCALE: 10/10 LOCATION: Bilateral cranial Frontal and Superior region. TECHNIQUE: Multiple contiguous axial images were obtained of the head. Using automated exposure control and adj ustment of the mA and/or kV according to patient size, radiation dose was kept as low as reasonably a chievable to obtain optimal diagnostic quality images. DICOM format image data is available electro nically for review and comparison. FINDINGS: CEREBRUM: The ventricles are normal for age. No evidence of midline shift, mass lesion, hemorrhage or acute in farction. No extra-axial fluid collections are seen. POSTERIOR FOSSA: The cerebellum and brainstem are intact. The 4th ventricle is midline. The cerebellopontine angle i s unremarkable. EXTRACRANIAL: The visualized portion of the orbits is intact. SKULL: The calvaria is intact. No evidence of skull fracture. CONCLUSION: Negative exam. Cristo Hughes MD on December 01, 2016 at 14:40 Board Certified Radiologist. This report was verified electronically.
--- NOTE | 2016-12-01 20:24 | RADRPT ---
EXAM DATE/TIME: 12/01/2016 19:28 [facility] COMPARISON: CHEST SINGLE AP, July 30, 2016, 3:48. INDICATIONS : Fever, cough. MEDICAL HISTORY : Hypertension. Leukemia. SURGICAL HISTORY : Port placement. ENCOUNTER: Subsequent ACUITY: 2 days PAIN SCORE: 0/10 LOCATION: Bilateral chest FINDINGS: A single view of the chest demonstrates the lungs to be symmetrically aerated without evidence of mas s, infiltrate or effusion. Right sided zoila catheter with tip in the SVC. The cardiomediastinal cont ours are unremarkable. Osseous structures are intact. CONCLUSION: Cardiomegaly. No consolidation. Barrera Turner MD on December 01, 2016 at 20:22 Board Certified Radiologist. This report was verified electronically.
[2016-12-01] MEDS ORDERED: PHARMACY ORDERED LAB ONE (20:45)
[2016-12-01] MEDS: PROCHLORPERAZINE MALEATE 10 MG TAB PO PRN (22:29)
[2016-12-01] MEDS: NYSTAT/DIPHENHY/LIDO MOUTHWASH (Adult) 120ML PO PRN (22:36)
[2016-12-01 23:49] LABS: BLOOD, URINE NEG (NEG); GLUCOSE,URINE NEG (NEG); KETONE, URINE NEG (NEG); MUCUS URINE FEW /lpf (OCC); NITRITE,URINE NEG (NEG); PH, URINE 5.5 (5.0-8.5); SQUAMOUS EPITHELIAL CELL URINE 1 /hpf (0-5); URINE COLOR YELLOW (YELLW/STRAW)
[2016-12-01 23:52] LABS: COMMENT (UR) CULT NOT INDICATED; CULTURE IF INDICATED CULT NOT INDICATED
[2016-12-02] VITALS (7 sets, daily range): BP systolic 117–160; BP diastolic 61–98; PULSE 84–108; RESP 16–20; TEMP 96.8–102.6; O2SAT 93–98
[2016-12-02] MEDS: SODIUM CHLORIDE 0.9% FLUSH 10 ML FLUSH IV FLUSH PRN (01:16)
[2016-12-02] MEDS: ACETAMINOPHEN 325 MG TAB PO PRN ×4 (02:15→22:38)
[2016-12-02] MEDS: CEFEPIME INJ 2,000 MG in SODIUM CHLORIDE 0.9% INJ 100 ML IV SCH (04:44)
[2016-12-02 05:46] LABS: HEMATOCRIT 23.3 % (35.0-46.0); MEAN CELL VOLUME 84.8 FL (80.0-100.0); MEAN CORPUSCULAR HEMOGLOBIN 29.9 PG (27.0-34.0); MEAN CORPUSCULAR HGB CONC 35.3 % (32.0-36.0); PLATELET COUNT 21 TH/MM3 (150-450); RED BLOOD COUNT 2.75 MIL/MM3 (4.00-5.30); RED CELL DISTRIBUTION WIDTH 15.4 % (11.6-17.2); WHITE BLOOD COUNT 0.2 TH/MM3 (4.0-11.0)
[2016-12-02 06:02] LABS: HEMO FLAGS AUTO DIFF
[2016-12-02 06:05] LABS: BICARBONATE 25.9 MEQ/L (21.0-32.0); POTASSIUM 3.4 MEQ/L (3.5-5.1)
[2016-12-02] MEDS: valACYclovir HCL 500 MG TAB PO SCH ×3 (06:45→22:33)
[2016-12-02] MEDS: ACYCLOVIR 5% CREAM 5 GM TUBE TOPICAL SCH ×5 (06:50→22:33)
[2016-12-02] MEDS ORDERED: PHARMACY ORDERED LAB ONE (08:45)
[2016-12-02] MEDS: RYDAPT 25 MG PO SCH ×2 (08:51→22:30)
[2016-12-02] MEDS: CARVEDILOL 3.125 MG TAB PO SCH (08:52)
[2016-12-02] MEDS: HYDROCHLOROTHIAZIDE 25 MG TAB PO SCH (08:52)
[2016-12-02] MEDS: LOSARTAN 50 MG TAB PO SCH (08:52)
[2016-12-02] MEDS: SODIUM CHLORIDE 0.9% FLUSH 10 ML FLUSH IV FLUSH SCH ×2 (08:53→22:32)
[2016-12-02] MEDS ORDERED: VANCOMYCIN INJ 1,200 MG in SODIUM CHLOR 0.9% 250 ML INJ 250 ML IV SCH (09:00)
[2016-12-02 09:05] LABS: WBC DIFF SAMPLE 20
[2016-12-02 09:07] LABS: PLATELET ESTIMATE SMEAR LOW (NORMAL); PLATELET MORPHOLOGY NORMAL (NORMAL); SCAN/DIFF FINAL DIFF MANUAL
--- NOTE | 2016-12-02 12:26 | PD.ONC.PN ---
Subjective Subjective Remarks Tmax 103F overnight. Patient continuing to complain of headache. Objective Data Date Time Temp Pulse Resp B/P Pulse Ox O2 Delivery O2 Flow Rate FiO2 12/02/16 07:50 96.8 88 20 159/98 96 12/02/16 04:00 99.2 92 16 156/74 93 12/02/16 00:00 99.0 96 16 128/89 93 12/01/16 18:56 103.0 12/01/16 15:53 100.1 90 20 163/89 98 12/02/16 12/02/16 12/02/16 07:00 15:00 23:00 Intake Total 1060 ml Balance 1060 ml Result Diagram: 12/02/16 0440 [id number]/16439 Laboratory Results Laboratory Tests Test 12/01/16 12/01/16 12/02/16 12/02/16 20:35 22:25 04:40 09:00 Vancomycin Level Trough 17.4 MCG/ML 16.2 MCG/ML Urine Color YELLOW Urine Turbidity CLEAR Urine pH 5.5 Urine Specific [place] 1.022 Urine Protein 30 mg/dL Urine Glucose (UA) NEG mg/dL Urine Ketones NEG mg/dL Urine Occult Blood NEG Urine Nitrite NEG Urine Bilirubin NEG Urine Urobilinogen LESS THAN 2.0 MG/DL Urine Leukocyte Esterase NEG Urine RBC 1 /hpf Urine WBC 1 /hpf Urine Squamous Epithelial 1 /hpf Cells Urine Mucus FEW /lpf Microscopic Urinalysis Comment CULT NOT INDICATED White Blood Count 0.2 TH/MM3 Red Blood Count 2.75 MIL/MM3 Hemoglobin 8.2 GM/DL Hematocrit 23.3 % Mean Corpuscular Volume 84.8 FL Mean Corpuscular Hemoglobin 29.9 PG Mean Corpuscular Hemoglobin 35.3 % Concent Red Cell Distribution Width 15.4 % Platelet Count 21 TH/MM3 Mean Platelet Volume 7.7 FL Neutrophils (%) (Auto) % Lymphocytes (%) (Auto) % Monocytes (%) (Auto) % Eosinophils (%) (Auto) % Basophils (%) (Auto) % Neutrophils # (Auto) TH/MM3 Lymphocytes # (Auto) TH/MM3 Monocytes # (Auto) TH/MM3 Eosinophils # (Auto) TH/MM3 Basophils # (Auto) TH/MM3 CBC Comment AUTO DIFF Differential Total Cells 20 Counted Lymphocytes % 100 % Neutrophils # (Manual) 0.0 TH/MM3 Differential Comment FINAL DIFF MANUAL Platelet Estimate LOW Platelet Morphology Comment NORMAL Sodium Level 139 MEQ/L Potassium Level 3.4 MEQ/L Chloride Level 104 MEQ/L Carbon Dioxide Level 25.9 MEQ/L Anion Gap 9 MEQ/L Blood Urea Nitrogen 16 MG/DL Creatinine 0.64 MG/DL Estimat Glomerular Filtration 95 ML/MIN Rate Random Glucose 117 MG/DL Calcium Level 8.9 MG/DL Culture Results Microbiology Date/Time Procedure Status Source Growth 11/29/16 21:05 Aerobic Blood Culture - Preliminary Resulted Blood Peripheral NO GROWTH IN 3 DAYS 11/29/16 21:05 Anaerobic Blood Culture - Preliminary Resulted Blood Peripheral NO GROWTH IN 3 DAYS 11/30/16 00:12 Aerobic Blood Culture - Preliminary Resulted Blood Peripheral NO GROWTH IN 2 DAYS 11/30/16 00:12 Anaerobic Blood Culture - Preliminary Resulted Blood Peripheral NO GROWTH IN 2 DAYS 12/01/16 19:10 Aerobic Blood Culture - Preliminary Resulted Blood Other NO GROWTH IN 1 DAY 12/01/16 19:10 Anaerobic Blood Culture - Preliminary Resulted Blood Other NO GROWTH IN 1 DAY 12/01/16 20:09 Aerobic Blood Culture - Preliminary Resulted Blood Peripheral NO GROWTH IN 1 DAY 12/01/16 20:09 Anaerobic Blood Culture - Preliminary Resulted Blood Peripheral NO GROWTH IN 1 DAY Administered Medications Medications (Trade) Dose Ordered Sig/Zeynep Route PRN Reason Start Time Stop Time Status Last Admin Dose Admin Sodium Chloride (NS Flush) 2 ml BID IV FLUSH 11/28/16 21:00 12/02/16 08:53 Sodium Chloride (NS Flush) 2 ml UNSCH PRN IVF FLUSH AFTER USING IV ACCESS 11/28/16 20:00 11/30/16 06:33 Acetaminophen (Tylenol) 650 mg Q4H PRN PO FEVER>100.4 11/29/16 01:30 12/02/16 06:45 Carvedilol (Coreg) 3.125 mg DAILY PO 11/29/16 09:00 12/02/16 08:52 Patient Own Medication PT OWN MED: RYD... BID PO 11/29/16 21:00 12/02/16 08:51 Sodium Chloride (NS Flush) 5 ml UNSCH PRN IV FLUSH SEE PROTOCOL TABLE 11/30/16 06:45 12/02/16 01:16 Sodium Chloride (NS Flush) 5 ml UNSCH PRN IV FLUSH NEEDED 11/30/16 06:45 12/01/16 04:11 Hydrochlorothiazide (Hydrodiuril) 25 mg DAILY PO 12/01/16 09:00 12/02/16 08:52 Losartan Potassium (Cozaar) 100 mg DAILY PO 12/01/16 09:00 12/02/16 08:52 Valacyclovir HCl (Valtrex) 1,000 mg Q8HR PO 12/01/16 14:00 12/02/16 06:45 Multi-Ingredient Mouthwash/Gargle (Magic Mouthwash Adult Liq) 5 ml QID PRN PO sore throat 12/01/16 10:45 12/01/16 22:36 Oxycodone HCl (Roxicodone) 5 mg Q6H PRN PO pain 1-10 12/01/16 11:00 12/02/16 02:15 Prochlorperazine Maleate (Compazine) 10 mg QID PRN PO nausea 12/01/16 14:45 12/01/16 22:29 Objective Remarks GENERAL: Middle aged female lying in bed, complaining of headache. SKIN: Warm and dry. port in place, right chest wall. HEAD: Normocephalic. EYES: No injection or drainage. MOUTH: herpetic lip lesion, left lip. NECK: Supple, trachea midline. CARDIOVASCULAR: Regular rate and rhythm RESPIRATORY: Breath sounds equal bilaterally. No accessory muscle use. GASTROINTESTINAL: Abdomen soft, non-tender, nondistended. EXTREMITIES: No cyanosis NEUROLOGICAL: aox3. normal speech. moving extremities. no obvious focal deficit. Assessment/Plan Problem List: (1) Neutropenic fever Status: Acute Plan: 12/02: stop Cefepime,start Azactam. patient believes cefepime is causing her headache. will also add diflucan and consult infectious disease for recurrent fevers while on abx. 12/01: bc no growth. continue Vanco and Cefepime. add valtrex for mouth sore. patient has been receiving tylenol for headache which may have been masking fever. i have changed indication to fever only and will add roxicodone for headache. 11/30: spiked another fever last night. blood cultures showing no growth thus far. continue abx. will consult ID if spiking fevers persist. --on vancomycin and cefepime. --BC .: no growth/pending --BC, 7.22 no growth. --CXR: mild cardiomegaly --U/A--neg (2) Hypertension Status: Acute Plan: --on Losartan, HCTZ, Coreg (3) Pancytopenia Status: Acute Plan: --due to chemotherapy --transfuse 2units pRBC for hgb less than 8 --transfuse 1 unit platelets for platelet count less than 15 (4) Acute myeloid leukemia Status: Acute Plan: --in remission, status post C1 consolidation with high-dose Zuleyka-C one week ago. --being evaluated at [facility] for transplant --patient's home medication, Rydapt was resumed (5) Headache Status: Acute Plan: --CT brain negative --likely tension headache vs medication side effect, other diff include, infectious etiology, CVA, hematoma, other Assessment 56y/o with severe pancytopenia, neutropenic fever in a patient who has acute myeloid leukemia. h/o Acute myeloid leukemia, FLT3 positive. Anxiety disorder. COPD. Depression. Hypercholesterolemia. Hypertension. Attending Statement Complaining of severe headaches, Patient States that is due to the antibiotic cefepime. Change antibiotic Tx support The exam, history, and the medical decision-making described in the above note were completed with the assistance of the mid-level provider. I reviewed and agree with the findings presented. I attest that I had a [id number] encounter with the patient on the same day, and personally performed and documented my assessment and findings in the medical record. Problem Qualifiers (1) Headache: Qualified Code: G44.209 - Acute non intractable tension-type headache Julianna Mcdaniel Dec 02, 2016 12:26 April Fonseca MD Dec 03, 2016 00:12
--- NOTE | 2016-12-02 13:48 | PD.CONS ---
History of Present Illness Service Infectious disease Consult Requested By Warner Dudley Reason for Consult Evaluate patient with fever and neutropenia Primary Care Physician Non-Staff Diagnoses: History of Present Illness Patient seen and examined. Records reviewed. Patient is a pleasant 56-year-old female diagnosed with acute myeloid leukemia August of this year. She received induction chemotherapy with good response. Recently she was started on consolidation chemotherapy. She tolerated the procedure well, and she was seen in follow-up. At that time she was neutropenic and she was started on Levaquin. Patient also went to [facility] for transplant evaluation. She was found to be suitable candidate. Her problems started about the day prior to admission when she started not feeling well. She has had generalized weakness, fatigue, and was having some dyspnea on exertion. On day of admission she had a fever, and was seen in the emergency room. Her white count was 0.2 and her platelet count was only 2000. Patient has been in the hospital since, and has been running some fevers. Patient has no COPD, and has a chronic dry cough which is no change. Her chest x-ray here have been normal. She developed some sores on her lip on the day she came in, and she had noticed a sore in her palate. Patient denies having any prior history of fever blister. She did have a similar sore in her palate when she had her first chemotherapy. She has not had any nausea or vomiting. Today she had 1 episode of diarrhea. She is voiding okay without any problem. She denies any back pain. She has not had any swallowing difficulty. She's had blood cultures done and they have all been negative. Chest x-ray were negative. She had a CT of the head and I was also negative. She had a headache last night and this morning. It is improving currently. Patient was initially on Vanco and cefepime, and so on Diflucan and Valtrex. Cefepime was stopped and she is now on Azactam. Infectious disease consultation requested to evaluate the patient. Review of Systems Constitutional: COMPLAINS OF: Fever, Chills Eyes: DENIES: Eye pain Ears, nose, mouth, throat: COMPLAINS OF: Oral lesions, Throat pain, DENIES: Nasal discharge, Sinus Pain, Toothache Respiratory: COMPLAINS OF: Shortness of breath, DENIES: Sputum production Cardiovascular: COMPLAINS OF: Dyspnea on Exertion, DENIES: Chest pain, Palpitations Gastrointestinal: COMPLAINS OF: Diarrhea, DENIES: Abdominal pain, Nausea, Vomiting, Difficulty Swallowing Genitourinary: DENIES: Urgency, Dysuria Musculoskeletal: COMPLAINS OF: Muscle aches, DENIES: Joint pain, Joint Swelling, Back pain Integumentary: DENIES: Pruritus Hematologic/lymphatic: COMPLAINS OF: Bruising Neurologic: COMPLAINS OF: Headache, DENIES: Localized weakness Psychiatric: DENIES: Hallucinations Past Family Social History Allergies: Coded Allergies: Amlodipine (Verified Allergy, Severe, Hives, 08/15/16) PATIENT STATES SHE IS NOT ALLERGIC-TAKES THIS MED DAILY Latex (Verified Allergy, Severe, Rash, 08/15/16) Sulfa (Verified Adverse Reaction, Severe, Vomiting, cramps, 08/15/16) Past Medical History Acute myeloid leukemia Anxiety disorder. COPD. Depression. Hypercholesterolemia. Hypertension. Past Surgical History Cholecystectomy ?hysterectomy. Eflams-K-Vxbu placement Right foot surgery. Active Ordered Medications Tylenol Azactam Coreg Benadryl Diflucan Heparin Hydrochlorothiazide Cozaar Oxycodone Magic mouthwash Compazine Valtrex Vancomycin Family History Family history of CVA and brain aneurysm Social History , lives by herself Ex-smoker used to smoke more than one pack per day, quit 12 years ago Denies alcohol abuse Denies illicit drugs Physical Exam Vital Signs Vital Signs Date Time Temp Pulse Resp B/P Pulse Ox O2 Delivery O2 Flow Rate FiO2 12/02/16 11:00 98.6 84 20 143/74 96 12/02/16 07:50 96.8 88 20 159/98 96 12/02/16 04:00 99.2 92 16 156/74 93 12/02/16 00:00 99.0 96 16 128/89 93 12/01/16 18:56 103.0 12/01/16 15:53 100.1 90 20 163/89 98 Physical Exam GENERAL: Patient is an obese, well-developed CF, awake and alert, not in respiratory distress. SKIN: Warm and dry. Has some petechial rash in both legs, some ecchymoses in anterior abdominal wall HEAD: Atraumatic. Normocephalic. No temporal wasting, or tenderness. EYES: Leonard conjunctiva. No petechia or hemorrhage. Pupils equal, round and reactive to light. Extraocular movements full and intact. No scleral icterus. No injection or drainage. EARS, NOSE AND THROAT: Nose without bleeding or purulent nasal discharge. No sinus tenderness. Mucous membranes pink and moist. No oral lesions noted. No exudate. No oral thrush. NECK: Trachea midline. Supple and not tender, no meningeal signs CARDIOVASCULAR: Regular rate and rhythm. No murmurs, rubs or gallops heard RESPIRATORY: Clear to auscultation. Breath sounds equal bilaterally. No rales , wheezing or rhonchi ABDOMEN: Soft, globular, non-tender, nondistended. Bowel sounds present and normoactive. No guarding. No rebound. Scars compatible with surgery. EXTREMITIES: No clubbing, cyanosis, or edema.No joint effusion, has good ROM. No calf tenderness. Well perfused and warm. NEUROLOGICAL: Awake and alert. Cranial nerves grossly intact. Motor grossly within normal limits. PSYCHIATRIC: Normal affect, calm and cooperative. LINE: Port with no evidence of infection Laboratory Laboratory Tests Test 12/01/16 12/01/16 12/02/16 12/02/16 20:35 22:25 04:40 09:00 Vancomycin Level Trough 17.4 16.2 Urine Color YELLOW Urine Turbidity CLEAR Urine pH 5.5 Urine Specific [place] 1.022 Urine Protein 30 Urine Glucose (UA) NEG Urine Ketones NEG Urine Occult Blood NEG Urine Nitrite NEG Urine Bilirubin NEG Urine Urobilinogen LESS THAN 2.0 Urine Leukocyte Esterase NEG Urine RBC 1 Urine WBC 1 Urine Squamous Epithelial 1 Cells Urine Mucus FEW Microscopic Urinalysis Comment CULT NOT INDICATED White Blood Count 0.2 Red Blood Count 2.75 Hemoglobin 8.2 Hematocrit 23.3 Mean Corpuscular Volume 84.8 Mean Corpuscular Hemoglobin 29.9 Mean Corpuscular Hemoglobin 35.3 Concent Red Cell Distribution Width 15.4 Platelet Count 21 Mean Platelet Volume 7.7 Neutrophils (%) (Auto) Lymphocytes (%) (Auto) Monocytes (%) (Auto) Eosinophils (%) (Auto) Basophils (%) (Auto) Neutrophils # (Auto) Lymphocytes # (Auto) Monocytes # (Auto) Eosinophils # (Auto) Basophils # (Auto) CBC Comment AUTO DIFF Differential Total Cells 20 Counted Lymphocytes % 100 Neutrophils # (Manual) 0.0 Differential Comment FINAL DIFF MANUAL Platelet Estimate LOW Platelet Morphology Comment NORMAL Sodium Level 139 Potassium Level 3.4 Chloride Level 104 Carbon Dioxide Level 25.9 Anion Gap 9 Blood Urea Nitrogen 16 Creatinine 0.64 Estimat Glomerular Filtration 95 Rate Random Glucose 117 Calcium Level 8.9 Date/Time Procedure Status Source Growth 12/01/16 20:09 Aerobic Blood Culture - Preliminary Resulted Blood Peripheral NO GROWTH IN 1 DAY 12/01/16 20:09 Anaerobic Blood Culture - Preliminary Resulted Blood Peripheral NO GROWTH IN 1 DAY Result Diagram: 12/02/16 0440 12/02/16 0440 Imaging RADIOLOGY STUDIES/FILMS REVIEWED Last Impressions Head CT 12/01/16 0000 Signed Impressions: Service Date/Time: Thursday, December 01, 2016 13:17 - CONCLUSION: Negative exam. Cristo Hughes MD Chest X-Ray 12/01/16 0000 Signed Impressions: Service Date/Time: Thursday, December 01, 2016 19:28 - CONCLUSION: Cardiomegaly. No consolidation. 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
[2016-12-02] MEDS: FLUCONAZOLE 200 MG PREMIX BAG 100 ML IV SCH (14:10)
[2016-12-02] MEDS: SODIUM CHLOR 0.9% 1000 ML INJ 1,000 ML IV SCH ×2 (14:11→22:34)
[2016-12-02] MEDS: AZTREONAM INJ 1,000 MG in SODIUM CHLORIDE 0.9% INJ 100 ML IV SCH ×2 (15:11→22:31)
[2016-12-02] MEDS: diphenhydrAMINE HCL 50 MG/ML VIAL IV PUSH PRN ×2 (15:16→22:31)
[2016-12-02] MEDS: metroNIDAZOLE 500 MG TAB PO SCH ×2 (16:53→22:33)
[2016-12-02] MEDS: MICAFUNGIN INJ 150 MG in SODIUM CHLORIDE 0.9% INJ 100 ML IV SCH (16:53)
[2016-12-02 17:06] LABS: INDIRECT BILIRUBIN 2.7 MG/DL (0.0-0.8); TOTAL BILIRUBIN ADULT 3.1 MG/DL (0.2-1.0)
[2016-12-02 17:47] LABS: C. DIFF EPI 027 PRESUMPTIVE NEGATIVE (NEGATIVE)
[2016-12-02 18:54] LABS: C. DIFF TOXIN PCR POSITIVE (NEGATIVE)
[2016-12-02 21:10] LABS: MEAN CORPUSCULAR HGB CONC 36.8 % (32.0-36.0)
[2016-12-02] MEDS: VANCOMYCIN INJ 1,250 MG in SODIUM CHLOR 0.9% 250 ML INJ 250 ML IV SCH (22:32)
[2016-12-03] VITALS (8 sets, daily range): BP systolic 109–161; BP diastolic 63–97; PULSE 89–108; RESP 16–20; TEMP 99–101.3; O2SAT 93–98
[2016-12-03 00:02] LABS: BLOOD, URINE NEG (NEG); COMMENT (UR) CULT NOT INDICATED; CULTURE IF INDICATED CULT NOT INDICATED; GLUCOSE,URINE NEG (NEG); KETONE, URINE NEG (NEG); MUCUS URINE FEW /lpf (OCC); NITRITE,URINE NEG (NEG); URINE COLOR YELLOW (YELLW/STRAW)
[2016-12-03] MEDS: NYSTAT/DIPHENHY/LIDO MOUTHWASH (Adult) 120ML PO PRN ×4 (01:15→22:24)
[2016-12-03] MEDS: AZTREONAM INJ 1,000 MG in SODIUM CHLORIDE 0.9% INJ 100 ML IV SCH ×3 (05:44→21:49)
[2016-12-03] MEDS: ACYCLOVIR 5% CREAM 5 GM TUBE TOPICAL SCH ×5 (05:50→22:10)
[2016-12-03] MEDS: valACYclovir HCL 500 MG TAB PO SCH ×3 (05:50→22:00)
[2016-12-03] MEDS: metroNIDAZOLE 500 MG TAB PO SCH ×3 (05:50→21:48)
[2016-12-03 07:33] LABS: MEAN CELL VOLUME 83.1 FL (80.0-100.0); MEAN CORPUSCULAR HEMOGLOBIN 30.6 PG (27.0-34.0); RED BLOOD COUNT 2.29 MIL/MM3 (4.00-5.30); WHITE BLOOD COUNT 0.2 TH/MM3 (4.0-11.0)
[2016-12-03 07:38] LABS: BICARBONATE 26.4 MEQ/L (21.0-32.0); POTASSIUM 3.2 MEQ/L (3.5-5.1)
[2016-12-03 07:40] LABS: INDIRECT BILIRUBIN 2.1 MG/DL (0.0-0.8); TOTAL BILIRUBIN ADULT 2.5 MG/DL (0.2-1.0)
[2016-12-03 08:05] LABS: HEMO FLAGS AUTO DIFF
[2016-12-03 08:10] LABS: PLATELET COUNT 14 TH/MM3 (150-450)
[2016-12-03] MEDS ORDERED: POTASSIUM CHLORIDE 10 MEQ CONTROLLED RELEASE TAB PO ONE (08:15)
[2016-12-03] MEDS ORDERED: diphenhydrAMINE HCL 25 MG CAP PO PRN (08:30)
[2016-12-03] MEDS ORDERED: ACETAMINOPHEN 325 MG TAB PO PRN (08:30)
[2016-12-03] MEDS ORDERED: SODIUM CHLOR 0.9% 250 ML INJ 250 ML IV ONE (08:30)
[2016-12-03] MEDS: PROCHLORPERAZINE MALEATE 10 MG TAB PO PRN (08:43)
[2016-12-03] MEDS: RYDAPT 25 MG PO SCH ×2 (08:43→21:00)
[2016-12-03] MEDS: HYDROCHLOROTHIAZIDE 25 MG TAB PO SCH (08:44)
[2016-12-03] MEDS: LOSARTAN 50 MG TAB PO SCH (08:44)
[2016-12-03] MEDS: CARVEDILOL 3.125 MG TAB PO SCH (08:44)
[2016-12-03] MEDS: SODIUM CHLORIDE 0.9% FLUSH 10 ML FLUSH IV FLUSH SCH ×2 (08:45→21:00)
[2016-12-03] MEDS: amLODIPine BESYLATE 5 MG TAB PO SCH (08:45)
[2016-12-03] MEDS: FLUCONAZOLE 200 MG PREMIX BAG 100 ML IV SCH (08:45)
[2016-12-03] MEDS: VANCOMYCIN INJ 1,250 MG in SODIUM CHLOR 0.9% 250 ML INJ 250 ML IV SCH ×2 (08:54→21:49)
[2016-12-03 10:23] LABS: WBC DIFF SAMPLE 50
[2016-12-03 10:28] LABS: PLATELET ESTIMATE SMEAR RARE (NORMAL); PLATELET MORPHOLOGY NORMAL (NORMAL); SCAN/DIFF FINAL DIFF MANUAL
[2016-12-03] MEDS: SODIUM CHLOR 0.9% 1000 ML INJ 1,000 ML IV SCH (12:20)
[2016-12-03 13:57] LABS: APTT (PATIENT) 29.9 SEC (24.3-30.1); PROTHROMBIN TIME - PATIENT 10.5 SEC (9.8-11.6)
--- NOTE | 2016-12-03 13:58 | PD.ONC.PN ---
Subjective Subjective Remarks Tmax 102.6 yesterday afternoon. Complaining of congestion, headache and LLQ abdominal pain. No diarrhea. c/o nausea but no vomiting. Objective Data Date Time Temp Pulse Resp B/P Pulse Ox O2 Delivery O2 Flow Rate FiO2 12/03/16 12:43 99.2 89 20 143/85 95 12/03/16 08:42 100.2 108 20 150/97 95 12/03/16 04:00 99.4 98 16 145/87 95 12/03/16 00:00 105 18 161/95 98 12/02/16 22:30 100.5 12/02/16 20:00 100.3 101 18 138/86 95 12/02/16 15:50 102.6 108 20 160/78 93 12/03/16 12/03/16 12/03/16 07:00 15:00 23:00 Intake Total 250 ml 1358 ml Output Total 500 ml Balance -250 ml 1358 ml Result Diagram: 12/03/16 0600 12/03/16 0600 Laboratory Results Laboratory Tests Test 12/02/16 12/03/16 17:00 06:00 Urine Color YELLOW Urine Turbidity CLEAR Urine pH 6.0 Urine Specific [place] 1.011 Urine Protein TRACE mg/dL Urine Glucose (UA) NEG mg/dL Urine Ketones NEG mg/dL Urine Occult Blood NEG Urine Nitrite NEG Urine Bilirubin NEG Urine Urobilinogen LESS THAN 2.0 MG/DL Urine Leukocyte Esterase NEG Urine RBC 1 /hpf Urine WBC LESS THAN 1 /hpf Urine Mucus FEW /lpf Microscopic Urinalysis Comment CULT NOT INDICATED White Blood Count 0.2 TH/MM3 Red Blood Count 2.29 MIL/MM3 Hemoglobin 7.0 GM/DL Hematocrit 19.0 % Mean Corpuscular Volume 83.1 FL Mean Corpuscular Hemoglobin 30.6 PG Mean Corpuscular Hemoglobin 36.8 % Concent Red Cell Distribution Width 15.0 % Platelet Count 14 TH/MM3 Mean Platelet Volume 7.3 FL Neutrophils (%) (Auto) % Lymphocytes (%) (Auto) % Monocytes (%) (Auto) % Eosinophils (%) (Auto) % Basophils (%) (Auto) % Neutrophils # (Auto) TH/MM3 Lymphocytes # (Auto) TH/MM3 Monocytes # (Auto) TH/MM3 Eosinophils # (Auto) TH/MM3 Basophils # (Auto) TH/MM3 CBC Comment AUTO DIFF Differential Total Cells 50 Counted Lymphocytes % 80 % Monocytes % 20 % Neutrophils # (Manual) 0.0 TH/MM3 Differential Comment FINAL DIFF MANUAL Platelet Estimate RARE Platelet Morphology Comment NORMAL Haptoglobin 270 MG/DL Sodium Level 139 MEQ/L Potassium Level 3.2 MEQ/L Chloride Level 103 MEQ/L Carbon Dioxide Level 26.4 MEQ/L Anion Gap 10 MEQ/L Blood Urea Nitrogen 11 MG/DL Creatinine 0.62 MG/DL Estimat Glomerular Filtration 99 ML/MIN Rate Random Glucose 115 MG/DL Calcium Level 9.0 MG/DL Total Bilirubin 2.5 MG/DL Direct Bilirubin 0.4 MG/DL Indirect Bilirubin 2.1 MG/DL Aspartate Amino Transf 16 U/L (AST/SGOT) Alanine Aminotransferase 46 U/L (ALT/SGPT) Alkaline Phosphatase 68 U/L Lactate Dehydrogenase 198 U/L Total Protein 6.9 GM/DL Albumin 3.1 GM/DL Culture Results Microbiology Date/Time Procedure Status Source Growth 12/01/16 19:10 Aerobic Blood Culture - Preliminary Resulted Blood Other NO GROWTH IN 2 DAYS 12/01/16 19:10 Anaerobic Blood Culture - Preliminary Resulted Blood Other NO GROWTH IN 2 DAYS 12/01/16 20:09 Aerobic Blood Culture - Preliminary Resulted Blood Peripheral NO GROWTH IN 2 DAYS 12/01/16 20:09 Anaerobic Blood Culture - Preliminary Resulted Blood Peripheral NO GROWTH IN 2 DAYS Administered Medications Medications (Trade) Dose Ordered Sig/Zeynep Route PRN Reason Start Time Stop Time Status Last Admin Dose Admin Sodium Chloride (NS Flush) 2 ml BID IV FLUSH 11/28/16 21:00 12/02/16 22:32 Sodium Chloride (NS Flush) 2 ml UNSCH PRN IVF FLUSH AFTER USING IV ACCESS 11/28/16 20:00 11/30/16 06:33 Acetaminophen (Tylenol) 650 mg Q4H PRN PO FEVER>100.4 11/29/16 01:30 12/02/16 22:38 Carvedilol (Coreg) 3.125 mg DAILY PO 11/29/16 09:00 12/03/16 08:44 Patient Own Medication PT OWN MED: RYD... BID PO 11/29/16 21:00 12/03/16 08:43 Sodium Chloride (NS Flush) 5 ml UNSCH PRN IV FLUSH SEE PROTOCOL TABLE 11/30/16 06:45 12/02/16 01:16 Sodium Chloride (NS Flush) 5 ml UNSCH PRN IV FLUSH NEEDED 11/30/16 06:45 12/01/16 04:11 Hydrochlorothiazide (Hydrodiuril) 25 mg DAILY PO 12/01/16 09:00 12/03/16 08:44 Losartan Potassium (Cozaar) 100 mg DAILY PO 12/01/16 09:00 12/03/16 08:44 Valacyclovir HCl (Valtrex) 1,000 mg Q8HR PO 12/01/16 14:00 12/03/16 12:58 Multi-Ingredient Mouthwash/Gargle (Magic Mouthwash Adult Liq) 5 ml QID PRN PO sore throat 12/01/16 10:45 12/03/16 11:00 Oxycodone HCl (Roxicodone) 5 mg Q6H PRN PO pain 1-10 12/01/16 11:00 12/02/16 02:15 Prochlorperazine Maleate 10 mg 10 mg QID PRN PO nausea 12/01/16 14:45 12/03/16 08:43 Fluconazole/ Sodium Chloride 100 ml @ 100 mls/hr Q24H IV 12/02/16 09:00 12/03/16 08:45 Aztreonam 1000 mg/ Sodium Chloride 100 ml @ 200 mls/hr Q8H IV 12/02/16 13:00 12/03/16 12:01 Vancomycin HCl/ Sodium Chloride (Vancomycin Inj/ NS 250 ml Inj) 262.5 ml @ 250 mls/hr Q12H IV 12/02/16 21:00 12/03/16 08:54 Diphenhydramine HCl 25 mg 25 mg Q4H PRN IV PUSH pre-medicate or itching 12/02/16 12:30 12/02/16 22:31 Sodium Chloride (NS 1000 ml Inj) 1,000 ml @ 84 mls/hr [id number] IV 12/02/16 12:30 12/03/16 12:20 Metronidazole 500 mg 500 mg Q8HR PO 12/02/16 15:00 12/03/16 12:58 Micafungin Sodium/ Sodium Chloride (Mycamine Inj/NS Inj) 100 ml @ 100 mls/hr Q24H IV 12/02/16 18:00 12/02/16 16:53 Amlodipine Besylate (Norvasc) 5 mg DAILY PO 12/03/16 09:00 12/03/16 08:45 Objective Remarks GENERAL: Middle aged female supine in bed, in nad. SKIN: Warm and dry. port in place, right chest wall. HEAD: Normocephalic. EYES: No injection or drainage. MOUTH: left lip with herpetic lesion NECK: Supple, trachea midline. CARDIOVASCULAR: Regular rate and rhythm RESPIRATORY: Breath sounds equal bilaterally. No accessory muscle use. GASTROINTESTINAL: Abdomen soft, non-tender, nondistended. EXTREMITIES: No cyanosis NEUROLOGICAL: awake and alert, normal speech. moving all extremities. Assessment/Plan Problem List: (1) Neutropenic fever Status: Acute Plan: 12/03: ID following. d/w Dr. Haney patient's headache, congestion and abdominal pain. will obtain CT ab/pelvis. 12/02: stop Cefepime,start Azactam. patient believes cefepime is causing her headache. will also add diflucan and consult infectious disease for recurrent fevers while on abx. 12/01: bc no growth. continue Vanco and Cefepime. add valtrex for mouth sore. patient has been receiving tylenol for headache which may have been masking fever. i have changed indication to fever only and will add roxicodone for headache. 11/30: spiked another fever last night. blood cultures showing no growth thus far. continue abx. will consult ID if spiking fevers persist. --on Vancomycin, Azactam, Flagyl, Valtrex, Micafungin --C. Diff positive --BC : no growth/pending --BC, 11.28 no growth. --CXR: mild cardiomegaly --U/A--neg (2) Hypertension Status: Acute Plan: --on Losartan, HCTZ, Coreg, Amlodipine (3) Pancytopenia Status: Acute Plan: --due to chemotherapy --transfuse 2units pRBC for hgb less than 8 --transfuse 1 unit platelets for platelet count less than 15 (4) Acute myeloid leukemia Status: Acute Plan: --in remission, status post C1 consolidation with high-dose Zuleyka-C one week ago. --being evaluated at [facility] for transplant --patient's home medication, Rydapt was resumed (5) Headache Status: Acute Plan: --CT brain negative --also with nasal congestion, ?sinusitis --likely tension headache vs medication side effect, other diff include, infectious etiology, CVA, hematoma, other (6) Abdominal pain Status: Acute Plan: --start Zofran for nausea --C. diff positive --check CT ab/pelvis Assessment 56y/o with severe pancytopenia, neutropenic fever in a patient who has acute myeloid leukemia. h/o Acute myeloid leukemia, FLT3 positive. Anxiety disorder. COPD. Depression. Hypercholesterolemia. Hypertension. Attending Statement Complaining of abdominal pain And fever I D note reviewed Await bone marrow recovery Monitor CBC The exam, history, and the medical decision-making described in the above note were completed with the assistance of the mid-level provider. I reviewed and agree with the findings presented. I attest that I had a [id number] encounter with the patient on the same day, and personally performed and documented my assessment and findings in the medical record. Problem Qualifiers (1) Headache: Qualified Code: G44.209 - Acute non intractable tension-type headache Julianna Mcdaniel Dec 03, 2016 13:58 April Fonseca MD Dec 03, 2016 22:13
[2016-12-03] MEDS ORDERED: IOHEXOL 350 MG/ML 10 ML VIAL (for RAD DIAG) IV ONE (14:15)
--- NOTE | 2016-12-03 14:49 | RADRPT ---
EXAM DATE/TIME: 12/03/2016 14:15 [place] COMPARISON: CT PULMONARY ANGIOGRAM, December 15, 2015, 18:52. CT ABDOMEN & PELVIS W/O CONTRAST, September 01, 2015, 10 :03. INDICATIONS : Left lower quadrant pain. IV CONTRAST: 91 cc Omnipaque 350 (iohexol) IV ORAL CONTRAST: No oral contrast ingested. RADIATION DOSE: 22.11 CTDIvol (mGy) MEDICAL HISTORY : Leukemia. Cardiovascular disease Hypertension. SURGICAL HISTORY : Cholecystectomy. ENCOUNTER: Initial ACUITY: 2 days PAIN SCALE: 6/10 LOCATION: Left lower quadrant TECHNIQUE: Volumetric scanning of the abdomen and pelvis was performed. Using automated exposure control and ad justment of the mA and/or kV according to patient size, radiation dose was kept as low as reasonably achievable to obtain optimal diagnostic quality images. DICOM format image data is available electro nically for review and comparison. FINDINGS: There are 6 and 4 mm noncalcified indeterminate pulmonary nodules within the right lung base. Follow -up CT of the chest in six months is recommended. The liver is enlarged and demonstrates diffuse fat ty infiltration. No focal hepatic mass is noted. No biliary ductal dilatation is noted. The gallbla dder has been resected. The spleen is normal. The pancreas is also normal. the adrenal glands are n ormal bilaterally. There is a large left renal cyst measuring 7.4 cm. There is no solid renal mass or hydronephrosis. The abdominal aorta and inferior vena cava are unremarkable. There is no paraaorti c, retroperitoneal or mesenteric lymphadenopathy. A few scattered uncomplicated colonic diverticula are noted. There is no acute diverticulitis. The appendix is normal. The uterus is unremarkable. T he urinary bladder is unremarkable. No pelvic lymphadenopathy is noted. Degenerative changes and sc oliosis of the thoracolumbar spine are noted. CONCLUSION: 1. 6 and 4 mm noncalcified indeterminate pulmonary nodules within the right lung base. Follow-up CT o f the chest in six months is recommended. 2. Enlarged fatty liver. 3. Few uncomplicated colonic diverticula. 4. 7.4 cm left renal cyst. 5. Degenerative changes and scoliosis of the thoracolumbar spine. Malcolm Coker MD on December 03, 2016 at 14:37 Board Certified Radiologist. This report was verified electronically.
[2016-12-03] MEDS: ACETAMINOPHEN 325 MG TAB PO PRN ×2 (14:59→22:09)
[2016-12-03] MEDS: diphenhydrAMINE HCL 50 MG/ML VIAL IV PUSH PRN ×2 (14:59→22:08)
--- NOTE | 2016-12-03 16:13 | HHI.IDPN ---
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 She received induction chemotherapy with good response. Recently she was started on consolidation chemotherapy. She tolerated the procedure well, and she was seen in follow-up. At that time she was neutropenic and she was started on Levaquin. Patient also went to [facility] [place] for transplant evaluation. She was found to be suitable candidate. Her problems started about the day prior to admission when she started not feeling well. She has had generalized weakness, fatigue, and was having some dyspnea on exertion. On day of admission she had a fever, and was seen in the emergency room. Her white count was 0.2 and her platelet count was only 2000. Patient has been in the hospital since, and has been running some fevers. Patient has no COPD, and has a chronic dry cough which is no change. Her chest x-ray here have been normal. She developed some sores on her lip on the day she came in, and she had noticed a sore in her palate. Patient denies having any prior history of fever blister. She did have a similar sore in her palate when she had her first chemotherapy. She has not had any nausea or vomiting. Today she had 1 episode of diarrhea. She is voiding okay without any problem. She denies any back pain. She has not had any swallowing difficulty. She's had blood cultures done and they have all been negative. Chest x-ray were negative. She had a CT of the head and I was also negative. She had a headache last night and this morning. It is improving currently. Patient was initially on Vanco and cefepime, and so on Diflucan and Valtrex. Cefepime was stopped and she is now on Azactam. Notes reviewed Still with fevers Having diarrhea C diff (+) CT A/P no abscess Nothing on BC Pancytopenic Has some abdominal pain L side Antibiotics Vanco Azactam Micafungin Flagyl Lines Port Past Medical History Acute myeloid leukemia Anxiety disorder. COPD. Depression. Hypercholesterolemia. Hypertension. Past Surgical History Cholecystectomy ?hysterectomy. [id number] placement Right foot surgery. Allergies: Coded Allergies: Latex (Verified Allergy, Severe, Rash, 08/15/16) Sulfa (Verified Adverse Reaction, Severe, Vomiting, cramps, 08/15/16) Objective . Vital Signs Date Time Temp Pulse Resp B/P Pulse Ox O2 Delivery O2 Flow Rate FiO2 12/03/16 15:07 101.3 94 18 121/71 94 12/03/16 12:43 99.2 89 20 143/85 95 12/03/16 08:42 100.2 108 20 150/97 95 12/03/16 04:00 99.4 98 16 145/87 95 12/03/16 00:00 105 18 161/95 98 12/02/16 22:30 100.5 12/02/16 20:00 100.3 101 18 138/86 95 12/02/16 12/02/16 12/03/16 15:00 23:00 07:00 Intake Total 720 ml 1075 ml 250 ml Output Total 700 ml 200 ml 500 ml Balance 20 ml 875 ml -250 ml Intake Oral 720 ml 450 ml 250 ml IV Total 625 ml Output Urine Total 700 ml 200 ml 500 ml # Voids 2 # Bowel Movements 1 0 0 . Laboratory Tests Test 12/02/16 12/03/16 04:40 06:00 White Blood Count 0.2 TH/MM3 0.2 TH/MM3 Red Blood Count 2.75 MIL/MM3 2.29 MIL/MM3 Hemoglobin 8.2 GM/DL 7.0 GM/DL Hematocrit 23.3 % 19.0 % Mean Corpuscular Volume 84.8 FL 83.1 FL Mean Corpuscular Hemoglobin 29.9 PG 30.6 PG Mean Corpuscular Hemoglobin 35.3 % 36.8 % Concent Red Cell Distribution Width 15.4 % 15.0 % Platelet Count 21 TH/MM3 14 TH/MM3 Mean Platelet Volume 7.7 FL 7.3 FL Neutrophils (%) (Auto) % % Lymphocytes (%) (Auto) % % Monocytes (%) (Auto) % % Eosinophils (%) (Auto) % % Basophils (%) (Auto) % % Neutrophils # (Auto) TH/MM3 TH/MM3 Lymphocytes # (Auto) TH/MM3 TH/MM3 Monocytes # (Auto) TH/MM3 TH/MM3 Eosinophils # (Auto) TH/MM3 TH/MM3 Basophils # (Auto) TH/MM3 TH/MM3 CBC Comment AUTO DIFF AUTO DIFF Differential Total Cells 20 50 Counted Lymphocytes % 100 % 80 % Neutrophils # (Manual) 0.0 TH/MM3 0.0 TH/MM3 Differential Comment FINAL DIFF FINAL DIFF MANUAL MANUAL Platelet Estimate LOW RARE Platelet Morphology Comment NORMAL NORMAL Monocytes % 20 % Haptoglobin 270 MG/DL Laboratory Tests Test 12/02/16 12/02/16 12/03/16 04:40 09:00 06:00 Sodium Level 139 MEQ/L 139 MEQ/L Potassium Level 3.4 MEQ/L 3.2 MEQ/L Chloride Level 104 MEQ/L 103 MEQ/L Carbon Dioxide Level 25.9 MEQ/L 26.4 MEQ/L Anion Gap 9 MEQ/L 10 MEQ/L Blood Urea Nitrogen 16 MG/DL 11 MG/DL Creatinine 0.64 MG/DL 0.62 MG/DL Estimat Glomerular Filtration 95 ML/MIN 99 ML/MIN Rate Random Glucose 117 MG/DL 115 MG/DL Calcium Level 8.9 MG/DL 9.0 MG/DL Total Bilirubin 3.1 MG/DL 2.5 MG/DL Direct Bilirubin 0.4 MG/DL 0.4 MG/DL Indirect Bilirubin 2.7 MG/DL 2.1 MG/DL Aspartate Amino Transf 19 U/L 16 U/L (AST/SGOT) Alanine Aminotransferase 54 U/L 46 U/L (ALT/SGPT) Alkaline Phosphatase 67 U/L 68 U/L Total Protein 6.8 GM/DL 6.9 GM/DL Albumin 3.1 GM/DL 3.1 GM/DL Lactate Dehydrogenase 198 U/L Microbiology Date/Time Procedure Status Source Growth 12/01/16 19:10 Aerobic Blood Culture - Preliminary Resulted Blood Other NO GROWTH IN 2 DAYS 12/01/16 19:10 Anaerobic Blood Culture - Preliminary Resulted Blood Other NO GROWTH IN 2 DAYS 12/01/16 20:09 Aerobic Blood Culture - Preliminary Resulted Blood Peripheral NO GROWTH IN 2 DAYS 12/01/16 20:09 Anaerobic Blood Culture - Preliminary Resulted Blood Peripheral NO GROWTH IN 2 DAYS Imaging Abdomen/Pelvis CT 12/03/16 0000 Signed Impressions: Service Date/Time: November 14:15 - CONCLUSION: 1. 6 and 4 mm noncalcified indeterminate pulmonary nodules within the right lung base. Follow-up CT of the chest in six months is recommended. 2. Enlarged fatty liver. 3. Few uncomplicated colonic diverticula. 4. 7.4 cm left renal cyst. 5. Degenerative changes and scoliosis of the thoracolumbar spine. Malcolm Coker MD Head CT 12/01/16 0000 Signed Impressions: Service Date/Time: Thursday, December 01, 2016 13:17 - CONCLUSION: Negative exam. Cristo Hughes MD Chest X-Ray 12/01/16 0000 Signed Impressions: Service Date/Time: Thursday, December 01, 2016 19:28 - CONCLUSION: Cardiomegaly. No consolidation. Barrera Turner MD Physical Exam GENERAL: Awakens easily, NAD SKIN: Warm and dry. Has some petechial rash in both legs, some ecchymoses in anterior abdominal wall HEAD: Atraumatic. Normocephalic. No temporal wasting, or tenderness. EYES: [place] conjunctiva. No petechia or hemorrhage. Pupils equal, round and reactive to light. Extraocular movements full and intact. No scleral icterus. No injection or drainage. EARS, NOSE AND THROAT: Nose without bleeding or purulent nasal discharge. No sinus tenderness. Mucous membranes pink and moist. has HSV lesions on L side of lower lip, and there is an ulcer in her L upper palate. No exudate. No oral thrush. NECK: Trachea midline. Supple and not tender, no meningeal signs CARDIOVASCULAR: Regular rate and rhythm. No murmurs, rubs or gallops heard RESPIRATORY: Clear to auscultation. Breath sounds equal bilaterally. No rales , wheezing or rhonchi ABDOMEN: Soft, globular, nondistended. Bowel sounds present and normoactive. Mild tenderness L side. No guarding. No rebound. Scars compatible with surgery. EXTREMITIES: No clubbing, cyanosis, or edema.No joint effusion, has good ROM. No calf tenderness. Well perfused and warm. NEUROLOGICAL: NOn-focal PSYCHIATRIC: Normal affect, calm and cooperative. 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
[2016-12-03] MEDS: MICAFUNGIN INJ 150 MG in SODIUM CHLORIDE 0.9% INJ 100 ML IV SCH (17:30)
[2016-12-03] MEDS: ONDANSETRON HCL 4 MG/2 ML VIAL IV PUSH PRN (22:24)
[2016-12-04] VITALS (11 sets, daily range): BP systolic 118–180; BP diastolic 70–95; PULSE 76–102; RESP 14–18; TEMP 97–100.3; O2SAT 94–99
[2016-12-04] MEDS: ACETAMINOPHEN 325 MG TAB PO PRN (01:28)
[2016-12-04] MEDS: diphenhydrAMINE HCL 50 MG/ML VIAL IV PUSH PRN ×2 (01:29→12:23)
[2016-12-04] MEDS: SODIUM CHLOR 0.9% 1000 ML INJ 1,000 ML IV SCH ×2 (01:29→11:26)
[2016-12-04] MEDS: ACYCLOVIR 5% CREAM 5 GM TUBE TOPICAL SCH ×5 (05:16→20:57)
[2016-12-04] MEDS: metroNIDAZOLE 500 MG TAB PO SCH ×3 (05:16→20:56)
[2016-12-04] MEDS: AZTREONAM INJ 1,000 MG in SODIUM CHLORIDE 0.9% INJ 100 ML IV SCH ×3 (05:16→20:52)
[2016-12-04] MEDS: valACYclovir HCL 500 MG TAB PO SCH ×3 (05:25→20:56)
[2016-12-04] MEDS: NYSTAT/DIPHENHY/LIDO MOUTHWASH (Adult) 120ML PO PRN ×2 (05:30→20:59)
[2016-12-04 07:53] LABS: HEMATOCRIT 27.6 % (35.0-46.0); MEAN CELL VOLUME 84.1 FL (80.0-100.0); MEAN CORPUSCULAR HEMOGLOBIN 29.6 PG (27.0-34.0); MEAN CORPUSCULAR HGB CONC 35.2 % (32.0-36.0); RED BLOOD COUNT 3.29 MIL/MM3 (4.00-5.30); RED CELL DISTRIBUTION WIDTH 14.4 % (11.6-17.2); WHITE BLOOD COUNT 0.3 TH/MM3 (4.0-11.0)
[2016-12-04 07:58] LABS: HEMO FLAGS AUTO DIFF
[2016-12-04 08:04] LABS: PLATELET COUNT 8 TH/MM3 (150-450)
[2016-12-04 08:10] LABS: POTASSIUM 3.1 MEQ/L (3.5-5.1)
[2016-12-04] MEDS ORDERED: PHARMACY ORDERED LAB ONE ×2 (08:45→20:45)
[2016-12-04] MEDS ORDERED: ACETAMINOPHEN 325 MG TAB PO PRN (08:45)
[2016-12-04] MEDS ORDERED: diphenhydrAMINE HCL 25 MG CAP PO PRN (08:45)
[2016-12-04] MEDS ORDERED: SODIUM CHLOR 0.9% 250 ML INJ 250 ML IV ONE (08:45)
[2016-12-04] MEDS ORDERED: POTASSIUM CHLORIDE 10 MEQ CONTROLLED RELEASE TAB PO ONE (08:45)
[2016-12-04] MEDS: SODIUM CHLORIDE 0.9% FLUSH 10 ML FLUSH IV FLUSH SCH ×2 (09:00→20:57)
[2016-12-04] MEDS: RYDAPT 25 MG PO SCH ×2 (09:00→20:55)
[2016-12-04 09:12] LABS: BANDS 2 % (0-6); POLYS (SEG NEUTROPHILS) 10 % (16-70); WBC DIFF SAMPLE 50
[2016-12-04 09:20] LABS: OVALOCYTES 1+ (NORMAL); PLATELET ESTIMATE SMEAR RARE (NORMAL); PLATELET MORPHOLOGY NORMAL (NORMAL); SCAN/DIFF FINAL DIFF MANUAL; SPHEROCYTES 1+ (NORMAL)
[2016-12-04] MEDS: CARVEDILOL 3.125 MG TAB PO SCH (09:23)
[2016-12-04] MEDS: HYDROCHLOROTHIAZIDE 25 MG TAB PO SCH (09:23)
[2016-12-04] MEDS: amLODIPine BESYLATE 5 MG TAB PO SCH (09:23)
[2016-12-04] MEDS: VANCOMYCIN INJ 1,250 MG in SODIUM CHLOR 0.9% 250 ML INJ 250 ML IV SCH ×2 (09:24→22:28)
[2016-12-04] MEDS: LOSARTAN 50 MG TAB PO SCH (09:24)
[2016-12-04] MEDS: ONDANSETRON HCL 4 MG/2 ML VIAL IV PUSH PRN ×2 (10:42→21:06)
[2016-12-04] MEDS ORDERED: LORATADINE 10 MG TAB PO SCH (12:00)
[2016-12-04] MEDS ORDERED: PILL SPLITTER OTHER PRN (12:00)
[2016-12-04 13:15] LABS: INDIRECT BILIRUBIN 2.3 MG/DL (0.0-0.8); TOTAL BILIRUBIN ADULT 2.7 MG/DL (0.2-1.0)
--- NOTE | 2016-12-04 13:17 | PD.ONC.PN ---
Subjective Subjective Remarks tMAX 100.3 overnight. Patient had hives during platelet transfusion reaction this AM. Hives resolved after IV benadryl was given. she states she had the same rxn when given platelets previously in ED. She is congested and feels miserable. Had about 9 episodes of diarrhea in the last 24 hours. Objective Data Date Time Temp Pulse Resp B/P Pulse Ox O2 Delivery O2 Flow Rate FiO2 12/04/16 11:58 97.7 81 16 158/95 96 12/04/16 11:04 97.0 81 16 158/95 96 12/04/16 08:00 98.1 82 14 151/95 95 12/04/16 03:20 97.6 76 16 149/80 96 12/04/16 01:05 98.2 89 18 142/80 95 12/04/16 00:50 99.3 100 16 145/91 94 12/04/16 00:00 100.3 102 18 118/70 94 12/03/16 20:00 99.0 90 18 160/83 96 12/03/16 16:23 100.6 92 20 109/63 94 12/03/16 15:20 100.1 97 18 112/72 93 12/03/16 15:07 101.3 94 18 121/71 94 12/04/16 12/04/16 12/04/16 07:00 15:00 23:00 Intake Total 150 ml Output Total 300 ml Balance -150 ml Result Diagram: 12/04/16 0530 12/04/16 0530 Laboratory Results Laboratory Tests Test 12/03/16 12/04/16 12/04/16 13:10 05:30 08:43 Prothrombin Time 10.5 SEC Prothromb Time International 1.0 RATIO Ratio Activated Partial 29.9 SEC Thromboplast Time Fibrinogen 600 mg/dL Direct Antiglobulin Test WEAKLY (Iraj) POSITIVE Blood Type A POSITIVE Antibody Screen NEGATIVE Crossmatch Irradiated/Leukocyte-Reduced RBC Blood Bank Comment White Blood Count 0.3 TH/MM3 Red Blood Count 3.29 MIL/MM3 Hemoglobin 9.7 GM/DL Hematocrit 27.6 % Mean Corpuscular Volume 84.1 FL Mean Corpuscular Hemoglobin 29.6 PG Mean Corpuscular Hemoglobin 35.2 % Concent Red Cell Distribution Width 14.4 % Platelet Count 8 TH/MM3 Mean Platelet Volume 7.6 FL Neutrophils (%) (Auto) % Lymphocytes (%) (Auto) % Monocytes (%) (Auto) % Eosinophils (%) (Auto) % Basophils (%) (Auto) % Neutrophils # (Auto) TH/MM3 Lymphocytes # (Auto) TH/MM3 Monocytes # (Auto) TH/MM3 Eosinophils # (Auto) TH/MM3 Basophils # (Auto) TH/MM3 CBC Comment AUTO DIFF Differential Total Cells 50 Counted Neutrophils % (Manual) 10 % Band Neutrophils % 2 % Lymphocytes % 76 % Monocytes % 12 % Neutrophils # (Manual) 0.0 TH/MM3 Differential Comment FINAL DIFF MANUAL Atypical Lymphocytes % Platelet Estimate RARE Platelet Morphology Comment NORMAL Spherocytes 1+ Ovalocytes 1+ Sodium Level 139 MEQ/L Potassium Level 3.1 MEQ/L Chloride Level 104 MEQ/L Carbon Dioxide Level 27.0 MEQ/L Anion Gap 8 MEQ/L Blood Urea Nitrogen 9 MG/DL Creatinine 0.50 MG/DL Estimat Glomerular Filtration 127 ML/MIN Rate Random Glucose 111 MG/DL Calcium Level 9.3 MG/DL Lactate Dehydrogenase 194 U/L Culture Results Microbiology Date/Time Procedure Status Source Growth 12/01/16 19:10 Aerobic Blood Culture - Preliminary Resulted Blood Other NO GROWTH IN 3 DAYS 12/01/16 19:10 Anaerobic Blood Culture - Preliminary Resulted Blood Other NO GROWTH IN 3 DAYS 12/01/16 20:09 Aerobic Blood Culture - Preliminary Resulted Blood Peripheral NO GROWTH IN 3 DAYS 12/01/16 20:09 Anaerobic Blood Culture - Preliminary Resulted Blood Peripheral NO GROWTH IN 3 DAYS 12/03/16 16:08 Aerobic Blood Culture - Preliminary Resulted Blood Peripheral NO GROWTH IN 1 DAY 12/03/16 16:08 Anaerobic Blood Culture - Preliminary Resulted Blood Peripheral NO GROWTH IN 1 DAY 12/03/16 16:10 Aerobic Blood Culture - Preliminary Resulted Blood Line NO GROWTH IN 1 DAY 12/03/16 16:10 Anaerobic Blood Culture - Preliminary Resulted Blood Line NO GROWTH IN 1 DAY Administered Medications Medications (Trade) Dose Ordered Sig/Zeynep Route PRN Reason Start Time Stop Time Status Last Admin Dose Admin Sodium Chloride (NS Flush) 2 ml BID IV FLUSH 11/28/16 21:00 12/02/16 22:32 Sodium Chloride (NS Flush) 2 ml UNSCH PRN IVF FLUSH AFTER USING IV ACCESS 11/28/16 20:00 11/30/16 06:33 Acetaminophen (Tylenol) 650 mg Q4H PRN PO FEVER>100.4 11/29/16 01:30 12/04/16 01:28 Carvedilol (Coreg) 3.125 mg DAILY PO 11/29/16 09:00 12/04/16 09:23 Patient Own Medication PT OWN MED: RYD... BID PO 11/29/16 21:00 12/04/16 09:00 Sodium Chloride (NS Flush) 5 ml UNSCH PRN IV FLUSH SEE PROTOCOL TABLE 11/30/16 06:45 12/02/16 01:16 Sodium Chloride (NS Flush) 5 ml UNSCH PRN IV FLUSH NEEDED 11/30/16 06:45 12/01/16 04:11 Hydrochlorothiazide (Hydrodiuril) 25 mg DAILY PO 12/01/16 09:00 12/04/16 09:23 Losartan Potassium (Cozaar) 100 mg DAILY PO 12/01/16 09:00 12/04/16 09:24 Valacyclovir HCl (Valtrex) 1,000 mg Q8HR PO 12/01/16 14:00 12/04/16 05:25 Multi-Ingredient Mouthwash/Gargle (Magic Mouthwash Adult Liq) 5 ml QID PRN PO sore throat 12/01/16 10:45 12/04/16 05:30 Oxycodone HCl (Roxicodone) 5 mg Q6H PRN PO pain 1-10 12/01/16 11:00 12/02/16 02:15 Prochlorperazine Maleate 10 mg 10 mg QID PRN PO nausea 12/01/16 14:45 12/03/16 08:43 Aztreonam 1000 mg/ Sodium Chloride 100 ml @ 200 mls/hr Q8H IV 12/02/16 13:00 12/04/16 05:16 Vancomycin HCl/ Sodium Chloride (Vancomycin Inj/ NS 250 ml Inj) 262.5 ml @ 250 mls/hr Q12H IV 12/02/16 21:00 12/04/16 09:24 Diphenhydramine HCl 25 mg 25 mg Q4H PRN IV PUSH pre-medicate or itching 12/02/16 12:30 12/04/16 12:23 Sodium Chloride (NS 1000 ml Inj) 1,000 ml @ 84 mls/hr [id number] IV 12/02/16 12:30 12/04/16 11:26 Metronidazole 500 mg 500 mg Q8HR PO 12/02/16 15:00 12/04/16 05:16 Micafungin Sodium/ Sodium Chloride (Mycamine Inj/NS Inj) 100 ml @ 100 mls/hr Q24H IV 12/02/16 18:00 12/03/16 17:30 Amlodipine Besylate (Norvasc) 5 mg DAILY PO 12/03/16 09:00 12/04/16 09:23 Ondansetron HCl 4 mg 4 mg Q6H PRN IV PUSH NAUSEA OR VOMITING 12/03/16 13:15 12/04/16 10:42 Sodium Chloride (NS 250 ml Inj) 250 ml @ 15 mls/hr ONCE ONCE IV 12/04/16 08:45 12/05/16 01:24 12/04/16 08:45 Objective Remarks GENERAL: chronically ill female sitting lying in bed, resting. SKIN: Warm and dry. port in place, right chest wall. HEAD: Normocephalic. EYES: No injection or drainage. MOUTH: herpetic lesion, left lip NECK: Supple, trachea midline. CARDIOVASCULAR: Regular rate and rhythm RESPIRATORY: Breath sounds equal bilaterally. No accessory muscle use. GASTROINTESTINAL: Abdomen soft, non-tender, nondistended. EXTREMITIES: No cyanosis NEUROLOGICAL: awake and alert, normal speech. moving all extremities. Assessment/Plan Problem List: (1) Neutropenic fever Status: Acute Plan: 12/04: having persistent nasal congestion. continue abx per ID. 9 episodes of diarrhea overnight d/t C. diff. continue supportive care. 12/03: ID following. d/w Dr. Haney patient's headache, congestion and abdominal pain. CT ab/pelvis shows no acute diverticulitis. C. diff positive 12/02: stop Cefepime,start Azactam. patient believes cefepime is causing her headache. will also add diflucan and consult infectious disease for recurrent fevers while on abx. 12/01: bc no growth. continue Vanco and Cefepime. add valtrex for mouth sore. patient has been receiving tylenol for headache which may have been masking fever. i have changed indication to fever only and will add roxicodone for headache. 11/30: spiked another fever last night. blood cultures showing no growth thus far. continue abx. will consult ID if spiking fevers persist. --on Vancomycin, Azactam, Flagyl, Valtrex, Micafungin --C. Diff positive --BC 7.27: no growth --BC 7.23/24: no growth/pending --BC, 7.22 no growth. --CXR: mild cardiomegaly --U/A--neg (2) Hypertension Status: Acute Plan: --on Losartan, HCTZ, Coreg, Amlodipine (3) Pancytopenia Status: Acute Plan: 12/04: while receiving 1 unit platelets, she developed hives. Benadryl given, hives resolved and blood bank notified. --due to chemotherapy --transfuse 2units pRBC for hgb less than 8 --transfuse 1 unit platelets for platelet count less than 15 (4) Acute myeloid leukemia Status: Acute Plan: --in remission, status post C1 consolidation with high-dose Zuleyka-C one week ago. --being evaluated at [facility] for transplant --patient's home medication, Rydapt was resumed (5) Headache Status: Acute Plan: --CT brain negative --also with nasal congestion, ?sinusitis --likely tension headache vs medication side effect, other diff include, infectious etiology, CVA, hematoma, other Assessment 56y/o with severe pancytopenia, neutropenic fever in a patient who has acute myeloid leukemia. h/o Acute myeloid leukemia, FLT3 positive. Anxiety disorder. COPD. Depression. Hypercholesterolemia. Hypertension. Attending Statement c/o sinus HOOPER benadryl not working for sinuses try claritin await BM recovery . The exam, history, and the medical decision-making described in the above note were completed with the assistance of the mid-level provider. I reviewed and agree with the findings presented. I attest that I had a [id number] encounter with the patient on the same day, and personally performed and documented my assessment and findings in the medical record. Problem Qualifiers (1) Headache: Qualified Code: G44.209 - Acute non intractable tension-type headache Julianna Mcdaniel Dec 04, 2016 13:17 April Fonseca MD Dec 04, 2016 15:11
[2016-12-04] MEDS: MICAFUNGIN INJ 150 MG in SODIUM CHLORIDE 0.9% INJ 100 ML IV SCH (17:38)
--- NOTE | 2016-12-04 18:56 | HHI.IDPN ---
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 She received induction chemotherapy with good response. Recently she was started on consolidation chemotherapy. She tolerated the procedure well, and she was seen in follow-up. At that time she was neutropenic and she was started on Levaquin. Patient also went to [facility] for transplant evaluation. She was found to be suitable candidate. Her problems started about the day prior to admission when she started not feeling well. She has had generalized weakness, fatigue, and was having some dyspnea on exertion. On day of admission she had a fever, and was seen in the emergency room. Her white count was 0.2 and her platelet count was only 2000. Patient has been in the hospital since, and has been running some fevers. Patient has no COPD, and has a chronic dry cough which is no change. Her chest x-ray here have been normal. She developed some sores on her lip on the day she came in, and she had noticed a sore in her palate. Patient denies having any prior history of fever blister. She did have a similar sore in her palate when she had her first chemotherapy. She has not had any nausea or vomiting. Today she had 1 episode of diarrhea. She is voiding okay without any problem. She denies any back pain. She has not had any swallowing difficulty. She's had blood cultures done and they have all been negative. Chest x-ray were negative. She had a CT of the head and I was also negative. She had a headache last night and this morning. It is improving currently. Patient was initially on Vanco and cefepime, and so on Diflucan and Valtrex. Cefepime was stopped and she is now on Azactam. Notes reviewed Temps better Still having diarrhea LLQ pain is better When her port needle access was changed this afternoon, it had brownish drainage at the site, and has ecchymotic color; also very tender. Port was placed 4 months ago at [facility] Sore in the mouth same Platelets down to 8K today Antibiotics Vanco Azactam Micafungin Flagyl Lines Port Past Medical History Acute myeloid leukemia Anxiety disorder. COPD. Depression. Hypercholesterolemia. Hypertension. Past Surgical History Cholecystectomy ?hysterectomy. [id number] placement Right foot surgery. Allergies: Coded Allergies: Latex (Verified Allergy, Severe, Rash, 08/15/16) Sulfa (Verified Adverse Reaction, Severe, Vomiting, cramps, 08/15/16) Objective . Vital Signs Date Time Temp Pulse Resp B/P Pulse Ox O2 Delivery O2 Flow Rate FiO2 12/04/16 16:00 98.6 84 14 129/93 96 12/04/16 11:58 97.7 81 16 158/95 96 12/04/16 11:30 97.3 85 16 140/88 96 12/04/16 11:04 97.0 81 16 158/95 96 12/04/16 08:00 98.1 82 14 151/95 95 12/04/16 03:20 97.6 76 16 149/80 96 12/04/16 01:05 98.2 89 18 142/80 95 12/04/16 00:50 99.3 100 16 145/91 94 12/04/16 00:00 100.3 102 18 118/70 94 12/03/16 20:00 99.0 90 18 160/83 96 12/03/16 12/03/16 12/04/16 15:00 23:00 07:00 Intake Total 1958 ml 260 ml 150 ml Output Total 400 ml 300 ml Balance 1958 ml -140 ml -150 ml Intake Oral 600 ml 260 ml 150 ml IV Total 1358 ml Output Urine Total 400 ml 300 ml # Voids 4 # Bowel Movements 3 0 0 . Laboratory Tests Test 12/03/16 12/04/16 06:00 05:30 White Blood Count 0.2 TH/MM3 0.3 TH/MM3 Red Blood Count 2.29 MIL/MM3 3.29 MIL/MM3 Hemoglobin 7.0 GM/DL 9.7 GM/DL Hematocrit 19.0 % 27.6 % Mean Corpuscular Volume 83.1 FL 84.1 FL Mean Corpuscular Hemoglobin 30.6 PG 29.6 PG Mean Corpuscular Hemoglobin 36.8 % 35.2 % Concent Red Cell Distribution Width 15.0 % 14.4 % Platelet Count 14 TH/MM3 8 TH/MM3 Mean Platelet Volume 7.3 FL 7.6 FL Neutrophils (%) (Auto) % % Lymphocytes (%) (Auto) % % Monocytes (%) (Auto) % % Eosinophils (%) (Auto) % % Basophils (%) (Auto) % % Neutrophils # (Auto) TH/MM3 TH/MM3 Lymphocytes # (Auto) TH/MM3 TH/MM3 Monocytes # (Auto) TH/MM3 TH/MM3 Eosinophils # (Auto) TH/MM3 TH/MM3 Basophils # (Auto) TH/MM3 TH/MM3 CBC Comment AUTO DIFF AUTO DIFF Differential Total Cells 50 50 Counted Lymphocytes % 80 % 76 % Monocytes % 20 % 12 % Neutrophils # (Manual) 0.0 TH/MM3 0.0 TH/MM3 Differential Comment FINAL DIFF FINAL DIFF MANUAL MANUAL Platelet Estimate RARE RARE Platelet Morphology Comment NORMAL NORMAL Haptoglobin 270 MG/DL Neutrophils % (Manual) 10 % Band Neutrophils % 2 % Atypical Lymphocytes % Spherocytes 1+ Ovalocytes 1+ Laboratory Tests Test 12/03/16 12/04/16 06:00 05:30 Sodium Level 139 MEQ/L 139 MEQ/L Potassium Level 3.2 MEQ/L 3.1 MEQ/L Chloride Level 103 MEQ/L 104 MEQ/L Carbon Dioxide Level 26.4 MEQ/L 27.0 MEQ/L Anion Gap 10 MEQ/L 8 MEQ/L Blood Urea Nitrogen 11 MG/DL 9 MG/DL Creatinine 0.62 MG/DL 0.50 MG/DL Estimat Glomerular Filtration 99 ML/MIN 127 ML/MIN Rate Random Glucose 115 MG/DL 111 MG/DL Calcium Level 9.0 MG/DL 9.3 MG/DL Total Bilirubin 2.5 MG/DL 2.7 MG/DL Direct Bilirubin 0.4 MG/DL 0.4 MG/DL Indirect Bilirubin 2.1 MG/DL 2.3 MG/DL Aspartate Amino Transf 16 U/L 16 U/L (AST/SGOT) Alanine Aminotransferase 46 U/L 38 U/L (ALT/SGPT) Alkaline Phosphatase 68 U/L 67 U/L Lactate Dehydrogenase 198 U/L 194 U/L Total Protein 6.9 GM/DL 6.8 GM/DL Albumin 3.1 GM/DL 3.1 GM/DL Microbiology Date/Time Procedure Status Source Growth 12/01/16 19:10 Aerobic Blood Culture - Preliminary Resulted Blood Other NO GROWTH IN 3 DAYS 12/01/16 19:10 Anaerobic Blood Culture - Preliminary Resulted Blood Other NO GROWTH IN 3 DAYS 12/01/16 20:09 Aerobic Blood Culture - Preliminary Resulted Blood Peripheral NO GROWTH IN 3 DAYS 12/01/16 20:09 Anaerobic Blood Culture - Preliminary Resulted Blood Peripheral NO GROWTH IN 3 DAYS 12/03/16 16:08 Aerobic Blood Culture - Preliminary Resulted Blood Peripheral NO GROWTH IN 1 DAY 12/03/16 16:08 Anaerobic Blood Culture - Preliminary Resulted Blood Peripheral NO GROWTH IN 1 DAY 12/03/16 16:10 Aerobic Blood Culture - Preliminary Resulted Blood Line NO GROWTH IN 1 DAY 12/03/16 16:10 Anaerobic Blood Culture - Preliminary Resulted Blood Line NO GROWTH IN 1 DAY Imaging Abdomen/Pelvis CT 12/03/16 0000 Signed Impressions: Service Date/Time: November 14:15 - CONCLUSION: 1. 6 and 4 mm noncalcified indeterminate pulmonary nodules within the right lung base. Follow-up CT of the chest in six months is recommended. 2. Enlarged fatty liver. 3. Few uncomplicated colonic diverticula. 4. 7.4 cm left renal cyst. 5. Degenerative changes and scoliosis of the thoracolumbar spine. Malcolm Coker MD Head CT 12/01/16 0000 Signed Impressions: Service Date/Time: Thursday, December 01, 2016 13:17 - CONCLUSION: Negative exam. Cristo Hughes MD Chest X-Ray 12/01/16 0000 Signed Impressions: Service Date/Time: Thursday, December 01, 2016 19:28 - CONCLUSION: Cardiomegaly. No consolidation. Barrera Turner MD Physical Exam GENERAL: Awake and alert, NAD SKIN: Warm and dry. Has some petechial rash in both legs stable; improving ecchymoses in anterior abdominal wall HEAD: Atraumatic. Normocephalic. No temporal wasting, or tenderness. EYES: Carson conjunctiva. No petechia or hemorrhage. Pupils equal, round and reactive to light. Extraocular movements full and intact. No scleral icterus. No injection or drainage. EARS, NOSE AND THROAT: Nose without bleeding or purulent nasal discharge. No sinus tenderness. Mucous membranes pink and moist. has HSV lesions on L side of lower lip, and there is an ulcer in her L upper palate. No exudate. No oral thrush. NECK: Trachea midline. Supple and not tender, no meningeal signs CARDIOVASCULAR: Regular rate and rhythm. No murmurs, rubs or gallops heard RESPIRATORY: Clear to auscultation. Breath sounds equal bilaterally. No rales , wheezing or rhonchi ABDOMEN: Soft, globular, nondistended. Bowel sounds present and normoactive. Mild tenderness L side. No guarding. No rebound. Scars compatible with surgery. EXTREMITIES: No clubbing, cyanosis, or edema.No joint effusion, has good ROM. No calf tenderness. Well perfused and warm. NEUROLOGICAL: Non-focal PSYCHIATRIC: Normal affect, calm and cooperative. LINE: Port tender on palpation and ecchymotic with dark bloody drainage at site of needle access. 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
[2016-12-04] MEDS: VANCOMYCIN 500 MG VIAL (FOR ORAL USE ONLY) PO SCH (20:52)
[2016-12-04 21:10] LABS: MEAN CORPUSCULAR HGB CONC 36.7 % (32.0-36.0)
[2016-12-05] VITALS: BP 157/96; PULSE 105; RESP 18; TEMP 100.1; O2SAT 97
[2016-12-05] MEDS: AZTREONAM INJ 1,000 MG in SODIUM CHLORIDE 0.9% INJ 100 ML IV SCH ×3 (05:20→20:39)
[2016-12-05] MEDS: metroNIDAZOLE 500 MG TAB PO SCH ×3 (05:20→20:39)
[2016-12-05] MEDS: valACYclovir HCL 500 MG TAB PO SCH ×3 (05:21→20:40)
[2016-12-05] MEDS: ACYCLOVIR 5% CREAM 5 GM TUBE TOPICAL SCH ×5 (05:22→20:45)
[2016-12-05] MEDS: NYSTAT/DIPHENHY/LIDO MOUTHWASH (Adult) 120ML PO PRN ×3 (05:27→21:00)
[2016-12-05 05:37] VITALS: BP 145/88; PULSE 92; RESP 18; TEMP 97.7; O2SAT 97
[2016-12-05 08:00] VITALS: BP 137/89; PULSE 100; RESP 20; TEMP 99.7; O2SAT 95
[2016-12-05 08:02] LABS: HEMATOCRIT 24.5 % (35.0-46.0); MEAN CELL VOLUME 82.9 FL (80.0-100.0); MEAN CORPUSCULAR HEMOGLOBIN 30.4 PG (27.0-34.0); PLATELET COUNT 23 TH/MM3 (150-450); RED BLOOD COUNT 2.95 MIL/MM3 (4.00-5.30); WHITE BLOOD COUNT 0.5 TH/MM3 (4.0-11.0)
[2016-12-05 08:06] LABS: HEMO FLAGS AUTO DIFF
[2016-12-05 08:17] LABS: ALT (GPT) 30 U/L (10-53); ANION GAP 7 MEQ/L (5-15); AST (GOT) 10 U/L (15-37); BICARBONATE 28.7 MEQ/L (21.0-32.0); BLOOD UREA NITROGEN 10 MG/DL (7-18); CHLORIDE 105 MEQ/L (98-107); GLOMERULAR FILTRATION RATE 101 ML/MIN (>89); POTASSIUM 3.6 MEQ/L (3.5-5.1); SODIUM (NA) 141 MEQ/L (136-145)
[2016-12-05 08:20] LABS: ALKALINE PHOSPHATASE 65 U/L (45-117); TOTAL BILIRUBIN ADULT 1.6 MG/DL (0.2-1.0)
[2016-12-05] MEDS: amLODIPine BESYLATE 5 MG TAB PO SCH (08:37)
[2016-12-05] MEDS: RYDAPT 25 MG PO SCH ×2 (08:37→21:02)
[2016-12-05] MEDS: VANCOMYCIN 500 MG VIAL (FOR ORAL USE ONLY) PO SCH ×4 (08:37→20:39)
[2016-12-05] MEDS: CARVEDILOL 3.125 MG TAB PO SCH (08:37)
[2016-12-05] MEDS: LOSARTAN 50 MG TAB PO SCH (08:38)
[2016-12-05] MEDS: SODIUM CHLORIDE 0.9% FLUSH 10 ML FLUSH IV FLUSH SCH ×2 (08:38→20:41)
[2016-12-05] MEDS: HYDROCHLOROTHIAZIDE 25 MG TAB PO SCH (08:43)
[2016-12-05] MEDS: VANCOMYCIN INJ 1,250 MG in SODIUM CHLOR 0.9% 250 ML INJ 250 ML IV SCH ×2 (08:43→21:29)
[2016-12-05 09:53] LABS: BANDS 7 % (0-6); NEUTROPHIL # MANUAL DIFF 0.1 TH/MM3 (1.8-7.7); POLYS (SEG NEUTROPHILS) 22 % (16-70); WBC DIFF SAMPLE 60
[2016-12-05 09:54] LABS: PLATELET ESTIMATE SMEAR LOW (NORMAL); PLATELET MORPHOLOGY NORMAL (NORMAL); SCAN/DIFF FINAL DIFF MANUAL
[2016-12-05] MEDS ORDERED: NAPHAZOLINE HCL 0.012% OPHT SOLN 15 ML BOTTLE EACH EYE PRN (11:00)
--- NOTE | 2016-12-05 11:14 | PD.ONC.PN ---
Subjective Subjective Remarks MAXIMUM TEMPERATURE 100.1 overnight. Stools are becoming firmer She is having less nasal and sinus congestion when she was yesterday. C/o dry eyes Objective Data Date Time Temp Pulse Resp B/P Pulse Ox O2 Delivery O2 Flow Rate FiO2 12/05/16 08:00 99.7 100 20 137/89 95 12/05/16 05:37 97.7 92 18 145/88 97 12/05/16 00:00 100.1 105 18 157/96 97 12/04/16 21:22 87 160/88 12/04/16 20:00 99.7 94 18 180/92 99 12/04/16 16:00 98.6 84 14 129/93 96 12/04/16 11:58 97.7 81 16 158/95 96 12/04/16 11:30 97.3 85 16 140/88 96 12/04/16 11:04 97.0 81 16 158/95 96 12/05/16 12/05/16 12/05/16 06:59 14:59 22:59 Intake Total 400 ml Balance 400 ml Result Diagram: 12/05/16 0701 12/05/16 07 Laboratory Results Laboratory Tests Test 12/04/16 12/04/16 12/04/16 12/05/16 12:40 18:15 21:00 07:01 Blood Type A POSITIVE Pre-Transfusion Antibody Screen Pre-Transfusion YOLANDA (Direct WEAKLY Iraj) POSITIVE Post-Transfusion Antibody Screen Post-Transfusion YOLANDA (Direct WEAKLY Iraj POSITIVE Nasal Screen MRSA (PCR) MRSA NOT DETECTED Vancomycin Level Trough 13.1 MCG/ML White Blood Count 0.5 TH/MM3 Red Blood Count 2.95 MIL/MM3 Hemoglobin 9.0 GM/DL Hematocrit 24.5 % Mean Corpuscular Volume 82.9 FL Mean Corpuscular Hemoglobin 30.4 PG Mean Corpuscular Hemoglobin 36.7 % Concent Red Cell Distribution Width 14.0 % Platelet Count 23 TH/MM3 Mean Platelet Volume 7.9 FL Neutrophils (%) (Auto) % Lymphocytes (%) (Auto) % Monocytes (%) (Auto) % Eosinophils (%) (Auto) % Basophils (%) (Auto) % Neutrophils # (Auto) TH/MM3 Lymphocytes # (Auto) TH/MM3 Monocytes # (Auto) TH/MM3 Eosinophils # (Auto) TH/MM3 Basophils # (Auto) TH/MM3 CBC Comment AUTO DIFF Differential Total Cells 60 Counted Neutrophils % (Manual) 22 % Band Neutrophils % 7 % Lymphocytes % 58 % Monocytes % 13 % Neutrophils # (Manual) 0.1 TH/MM3 Differential Comment FINAL DIFF MANUAL Platelet Estimate LOW Platelet Morphology Comment NORMAL Sodium Level 141 MEQ/L Potassium Level 3.6 MEQ/L Chloride Level 105 MEQ/L Carbon Dioxide Level 28.7 MEQ/L Anion Gap 7 MEQ/L Blood Urea Nitrogen 10 MG/DL Creatinine 0.61 MG/DL Estimat Glomerular Filtration 101 ML/MIN Rate Random Glucose 110 MG/DL Calcium Level 9.0 MG/DL Total Bilirubin 1.6 MG/DL Aspartate Amino Transf 10 U/L (AST/SGOT) Alanine Aminotransferase 30 U/L (ALT/SGPT) Alkaline Phosphatase 65 U/L Total Protein 6.6 GM/DL Albumin 3.0 GM/DL Culture Results Microbiology Date/Time Procedure Status Source Growth 12/03/16 16:08 Aerobic Blood Culture - Preliminary Resulted Blood Peripheral NO GROWTH IN 1 DAY 12/03/16 16:08 Anaerobic Blood Culture - Preliminary Resulted Blood Peripheral NO GROWTH IN 1 DAY 12/03/16 16:10 Aerobic Blood Culture - Preliminary Resulted Blood Line NO GROWTH IN 1 DAY 12/03/16 16:10 Anaerobic Blood Culture - Preliminary Resulted Blood Line NO GROWTH IN 1 DAY 12/04/16 18:15 Gram Stain - Final Resulted Wound Other 12/04/16 18:15 Wound Culture Resulted Wound Other Pending Administered Medications Medications (Trade) Dose Ordered Sig/Zeynep Route PRN Reason Start Time Stop Time Status Last Admin Dose Admin Sodium Chloride (NS Flush) 2 ml BID IV FLUSH 11/28/16 21:00 12/05/16 08:38 Sodium Chloride (NS Flush) 2 ml UNSCH PRN IVF FLUSH AFTER USING IV ACCESS 11/28/16 20:00 11/30/16 06:33 Acetaminophen (Tylenol) 650 mg Q4H PRN PO FEVER>100.4 11/29/16 01:30 12/04/16 01:28 Carvedilol (Coreg) 3.125 mg DAILY PO 11/29/16 09:00 12/05/16 08:37 Patient Own Medication PT OWN MED: RYD... BID PO 11/29/16 21:00 12/05/16 08:37 Sodium Chloride (NS Flush) 5 ml UNSCH PRN IV FLUSH SEE PROTOCOL TABLE 11/30/16 06:45 12/02/16 01:16 Sodium Chloride (NS Flush) 5 ml UNSCH PRN IV FLUSH NEEDED 11/30/16 06:45 12/01/16 04:11 Hydrochlorothiazide (Hydrodiuril) 25 mg DAILY PO 12/01/16 09:00 12/05/16 08:43 Losartan Potassium (Cozaar) 100 mg DAILY PO 12/01/16 09:00 12/05/16 08:38 Valacyclovir HCl (Valtrex) 1,000 mg Q8HR PO 12/01/16 14:00 12/05/16 05:21 Multi-Ingredient Mouthwash/Gargle (Magic Mouthwash Adult Liq) 5 ml QID PRN PO sore throat 12/01/16 10:45 12/05/16 05:27 Oxycodone HCl (Roxicodone) 5 mg Q6H PRN PO pain 1-10 12/01/16 11:00 12/05/16 00:06 Prochlorperazine Maleate 10 mg 10 mg QID PRN PO nausea 12/01/16 14:45 12/03/16 08:43 Aztreonam 1000 mg/ Sodium Chloride 100 ml @ 200 mls/hr Q8H IV 12/02/16 13:00 12/05/16 05:20 Vancomycin HCl/ Sodium Chloride (Vancomycin Inj/ NS 250 ml Inj) 262.5 ml @ 250 mls/hr Q12H IV 12/02/16 21:00 12/05/16 08:43 Diphenhydramine HCl (Benadryl Inj) 25 mg Q4H PRN IV PUSH pre-medicate or itching 12/02/16 12:30 12/04/16 12:23 Metronidazole 500 mg 500 mg Q8HR PO 12/02/16 15:00 12/05/16 05:20 Micafungin Sodium/ Sodium Chloride (Mycamine Inj/NS Inj) 100 ml @ 100 mls/hr Q24H IV 12/02/16 18:00 12/04/16 17:38 Amlodipine Besylate (Norvasc) 5 mg DAILY PO 12/03/16 09:00 12/05/16 08:37 Ondansetron HCl (Zofran Inj) 4 mg Q6H PRN IV PUSH NAUSEA OR VOMITING 12/03/16 13:15 12/04/16 21:06 Miscellaneous (Pill Splitter) 1 ea UNSCH PRN OTHER SEE LABEL COMMENTS 12/04/16 12:00 12/04/16 20:59 Vancomycin HCl (VANCOMYCIN for oral use only) 500 mg QID PO 12/04/16 21:00 12/05/16 08:37 Objective Remarks GENERAL: Chronically ill appearing female sitting up in chair at bedside watching TV. She does not appear to be in any acute distress. SKIN: Warm and dry. Dressing to right chest wall. Skin appears dark. HEAD: Normocephalic. + Alopecia EYES: No injection or drainage. MOUTH: Small herpetic lesion to the left lip NECK: Supple, trachea midline. CARDIOVASCULAR: + S1/S2 RESPIRATORY: Clear posteriorly. Breathing unlabored. GASTROINTESTINAL: Abdomen soft, non-tender, nondistended. EXTREMITIES: No cyanosis NEUROLOGICAL: Awake and alert, normal speech. Moving all extremities. Assessment/Plan Problem List: (1) Neutropenic fever Status: Acute (2) Hypertension Status: Acute Plan: --on Losartan, Coreg, Amlodipine (3) Pancytopenia Status: Acute Plan: --due to chemotherapy --transfuse 2units pRBC for hgb less than 8 --transfuse 1 unit platelets for platelet count less than 15 (4) Acute myeloid leukemia Status: Acute Plan: --in remission, status post C1 consolidation with high-dose Zuleyka-C one week ago. --being evaluated at [facility] for transplant --patient's home medication, Rydapt was resumed (5) Headache Status: Resolved Plan: -- Improved Assessment 56y/o with severe pancytopenia, neutropenic fever in a patient who has acute myeloid leukemia. h/o Acute myeloid leukemia, FLT3 positive. Anxiety disorder. COPD. Depression. Hypercholesterolemia. Hypertension. Plan 1. Patient continues to have low-grade fevers. She is being followed by infectious disease. 2. We will plan to continue current antibiotics recommended by ID. The patient was recently started vancomycin by mouth for C. difficile. She states that her stools have been somewhat more firm lately. 3. We will continue to monitor her CBC it is noted that her counts look like they are starting to recover. She does not need blood transfusion today. 4. CBC in the a.m. Attending Statement The exam, history, and the medical decision-making described in the above note were completed with the assistance of the mid-level provider. I reviewed and agree with the findings presented. I attest that I had a [id number] encounter with the patient on the same day, and personally performed and documented my assessment and findings in the medical record. she is doing well. sore on lips beginning to heal and will continue supportive care waiting for return of counts. Problem Qualifiers (1) Headache: Qualified Code: G44.209 - Acute non intractable tension-type headache Amina Castellanos Dec 05, 2016 11:13 Jarocho Knight MD Dec 05, 2016 18:04
[2016-12-05 12:00] VITALS: BP 149/84; PULSE 77; RESP 18; TEMP 98.8; O2SAT 97
[2016-12-05 16:00] VITALS: BP 138/88; PULSE 83; RESP 18; TEMP 99.1; O2SAT 94
[2016-12-05] MEDS: MICAFUNGIN INJ 150 MG in SODIUM CHLORIDE 0.9% INJ 100 ML IV SCH (17:38)
[2016-12-05 20:00] VITALS: BP 133/89; PULSE 91; RESP 17; TEMP 99.3; O2SAT 93
[2016-12-05] MEDS: ONDANSETRON HCL 4 MG/2 ML VIAL IV PUSH PRN (21:29)
[2016-12-06] VITALS: BP 132/89; PULSE 95; RESP 17; TEMP 98.6; O2SAT 97
[2016-12-06] MEDS: NYSTAT/DIPHENHY/LIDO MOUTHWASH (Adult) 120ML PO PRN ×2 (02:36→22:00)
[2016-12-06 04:00] VITALS: BP 129/72; PULSE 88; RESP 18; TEMP 97.6; O2SAT 97
[2016-12-06] MEDS: AZTREONAM INJ 1,000 MG in SODIUM CHLORIDE 0.9% INJ 100 ML IV SCH ×3 (05:40→21:09)
[2016-12-06] MEDS: valACYclovir HCL 500 MG TAB PO SCH ×3 (05:41→21:08)
[2016-12-06] MEDS: metroNIDAZOLE 500 MG TAB PO SCH ×3 (05:41→21:08)
[2016-12-06] MEDS: ONDANSETRON HCL 4 MG/2 ML VIAL IV PUSH PRN ×2 (05:46→21:19)
[2016-12-06] MEDS: ACYCLOVIR 5% CREAM 5 GM TUBE TOPICAL SCH ×5 (05:46→21:09)
[2016-12-06 06:51] LABS: AUTOMATED NEUTROPHIL # 0.2 TH/MM3 (1.8-7.7); BASOPHIL % 0.3 % (0.0-2.0); EOSINOPHIL % 0.3 % (0.0-4.0); HEMATOCRIT 25.7 % (35.0-46.0); LYMPH % 32.6 % (9.0-44.0); LYMPHOCYTE # 0.2 TH/MM3 (1.0-4.8); MEAN CELL VOLUME 83.3 FL (80.0-100.0); MEAN CORPUSCULAR HEMOGLOBIN 29.5 PG (27.0-34.0); MEAN CORPUSCULAR HGB CONC 35.4 % (32.0-36.0); MONO % 37.9 % (0.0-8.0); NEUT % 28.9 % (16.0-70.0); PLATELET COUNT 22 TH/MM3 (150-450); RED BLOOD COUNT 3.08 MIL/MM3 (4.00-5.30); RED CELL DISTRIBUTION WIDTH 13.9 % (11.6-17.2); WHITE BLOOD COUNT 0.8 TH/MM3 (4.0-11.0)
[2016-12-06 07:00] LABS: HEMO FLAGS AUTO DIFF
[2016-12-06 07:13] LABS: ALT (GPT) 26 U/L (10-53); ANION GAP 8 MEQ/L (5-15); AST (GOT) 15 U/L (15-37); BICARBONATE 27.8 MEQ/L (21.0-32.0); CHLORIDE 101 MEQ/L (98-107); GLOMERULAR FILTRATION RATE 99 ML/MIN (>89); POTASSIUM 3.2 MEQ/L (3.5-5.1); SODIUM (NA) 137 MEQ/L (136-145)
[2016-12-06 07:20] LABS: ALKALINE PHOSPHATASE 70 U/L (45-117); BLOOD UREA NITROGEN 9 MG/DL (7-18); TOTAL BILIRUBIN ADULT 1.3 MG/DL (0.2-1.0)
[2016-12-06 08:39] LABS: BANDS 1 % (0-6); EOSINOPHILS 6 % (0-4); NEUTROPHIL # MANUAL DIFF 0.2 TH/MM3 (1.8-7.7); POLYS (SEG NEUTROPHILS) 29 % (16-70); WBC DIFF SAMPLE 70
[2016-12-06 08:40] LABS: PLATELET ESTIMATE SMEAR LOW (NORMAL); PLATELET MORPHOLOGY NORMAL (NORMAL); SCAN/DIFF FINAL DIFF MANUAL
[2016-12-06 08:54] VITALS: BP 162/98; PULSE 101; RESP 18; TEMP 97.1; O2SAT 98
[2016-12-06] MEDS: VANCOMYCIN INJ 1,250 MG in SODIUM CHLOR 0.9% 250 ML INJ 250 ML IV SCH ×2 (08:54→21:24)
[2016-12-06] MEDS: VANCOMYCIN 500 MG VIAL (FOR ORAL USE ONLY) PO SCH ×4 (08:54→21:08)
[2016-12-06] MEDS: HYDROCHLOROTHIAZIDE 25 MG TAB PO SCH (08:54)
[2016-12-06] MEDS: amLODIPine BESYLATE 5 MG TAB PO SCH (08:54)
[2016-12-06] MEDS: CARVEDILOL 3.125 MG TAB PO SCH (08:54)
[2016-12-06] MEDS: LOSARTAN 50 MG TAB PO SCH (08:54)
[2016-12-06] MEDS: RYDAPT 25 MG PO SCH ×2 (08:55→21:00)
[2016-12-06] MEDS: SODIUM CHLORIDE 0.9% FLUSH 10 ML FLUSH IV FLUSH SCH ×2 (08:55→21:08)
--- NOTE | 2016-12-06 09:34 | PD.ONC.PN ---
Subjective Subjective Remarks Afebrile overnight Complains of a mild headache Overall feeling much better Objective Data Date Time Temp Pulse Resp B/P Pulse Ox O2 Delivery O2 Flow Rate FiO2 12/06/16 08:54 97.1 101 18 162/98 98 12/06/16 04:00 97.6 88 18 129/72 97 12/06/16 03:27 16 12/06/16 00:00 98.6 95 17 132/89 97 12/05/16 20:00 99.3 91 17 133/89 93 12/05/16 16:00 99.1 83 18 138/88 94 12/05/16 12:00 98.8 77 18 149/84 97 12/06/16 12/06/16 12/06/16 07:00 15:00 23:00 Intake Total 240 ml Balance 240 ml Result Diagram: 12/06/1614 12/06/1614 Laboratory Results Laboratory Tests Test 12/06/16 06:14 White Blood Count 0.8 TH/MM3 Red Blood Count 3.08 MIL/MM3 Hemoglobin 9.1 GM/DL Hematocrit 25.7 % Mean Corpuscular Volume 83.3 FL Mean Corpuscular Hemoglobin 29.5 PG Mean Corpuscular Hemoglobin 35.4 % Concent Red Cell Distribution Width 13.9 % Platelet Count 22 TH/MM3 Mean Platelet Volume 7.2 FL Neutrophils (%) (Auto) 28.9 % Lymphocytes (%) (Auto) 32.6 % Monocytes (%) (Auto) 37.9 % Eosinophils (%) (Auto) 0.3 % Basophils (%) (Auto) 0.3 % Neutrophils # (Auto) 0.2 TH/MM3 Lymphocytes # (Auto) 0.2 TH/MM3 Monocytes # (Auto) 0.3 TH/MM3 Eosinophils # (Auto) 0.0 TH/MM3 Basophils # (Auto) 0.0 TH/MM3 CBC Comment AUTO DIFF Differential Total Cells 70 Counted Neutrophils % (Manual) 29 % Band Neutrophils % 1 % Lymphocytes % 36 % Monocytes % 28 % Eosinophils % 6 % Neutrophils # (Manual) 0.2 TH/MM3 Differential Comment FINAL DIFF MANUAL Platelet Estimate LOW Platelet Morphology Comment NORMAL Red Cell Morphology Comment NORMAL Sodium Level 137 MEQ/L Potassium Level 3.2 MEQ/L Chloride Level 101 MEQ/L Carbon Dioxide Level 27.8 MEQ/L Anion Gap 8 MEQ/L Blood Urea Nitrogen 9 MG/DL Creatinine 0.62 MG/DL Estimat Glomerular Filtration 99 ML/MIN Rate Random Glucose 121 MG/DL Calcium Level 9.3 MG/DL Total Bilirubin 1.3 MG/DL Aspartate Amino Transf 15 U/L (AST/SGOT) Alanine Aminotransferase 26 U/L (ALT/SGPT) Alkaline Phosphatase 70 U/L Total Protein 6.7 GM/DL Albumin 3.0 GM/DL Culture Results Microbiology Date/Time Procedure Status Source Growth 12/03/16 16:08 Aerobic Blood Culture - Preliminary Resulted Blood Peripheral NO GROWTH IN 2 DAYS 12/03/16 16:08 Anaerobic Blood Culture - Preliminary Resulted Blood Peripheral NO GROWTH IN 2 DAYS 12/03/16 16:10 Aerobic Blood Culture - Preliminary Resulted Blood Line NO GROWTH IN 2 DAYS 12/03/16 16:10 Anaerobic Blood Culture - Preliminary Resulted Blood Line NO GROWTH IN 2 DAYS 12/04/16 18:15 Gram Stain - Final Resulted Wound Other 12/04/16 18:15 Wound Culture - Preliminary Resulted Wound Other NO GROWTH IN 24 HOURS. Administered Medications Medications (Trade) Dose Ordered Sig/Zeynep Route PRN Reason Start Time Stop Time Status Last Admin Dose Admin Sodium Chloride (NS Flush) 2 ml BID IV FLUSH 11/28/16 21:00 12/06/16 08:55 Sodium Chloride (NS Flush) 2 ml UNSCH PRN IVF FLUSH AFTER USING IV ACCESS 11/28/16 20:00 11/30/16 06:33 Acetaminophen (Tylenol) 650 mg Q4H PRN PO FEVER>100.4 11/29/16 01:30 12/04/16 01:28 Carvedilol (Coreg) 3.125 mg DAILY PO 11/29/16 09:00 12/06/16 08:54 Patient Own Medication PT OWN MED: RYD... BID PO 11/29/16 21:00 12/06/16 08:55 Sodium Chloride (NS Flush) 5 ml UNSCH PRN IV FLUSH SEE PROTOCOL TABLE 11/30/16 06:45 12/02/16 01:16 Sodium Chloride (NS Flush) 5 ml UNSCH PRN IV FLUSH NEEDED 11/30/16 06:45 12/01/16 04:11 Hydrochlorothiazide (Hydrodiuril) 25 mg DAILY PO 12/01/16 09:00 12/06/16 08:54 Losartan Potassium (Cozaar) 100 mg DAILY PO 12/01/16 09:00 12/06/16 08:54 Valacyclovir HCl (Valtrex) 1,000 mg Q8HR PO 12/01/16 14:00 12/06/16 05:41 Multi-Ingredient Mouthwash/Gargle (Magic Mouthwash Adult Liq) 5 ml QID PRN PO sore throat 12/01/16 10:45 12/06/16 02:36 Oxycodone HCl (Roxicodone) 5 mg Q6H PRN PO pain 1-10 12/01/16 11:00 12/06/16 08:53 Prochlorperazine Maleate 10 mg 10 mg QID PRN PO nausea 12/01/16 14:45 12/03/16 08:43 Aztreonam 1000 mg/ Sodium Chloride 100 ml @ 200 mls/hr Q8H IV 12/02/16 13:00 12/06/16 05:40 Vancomycin HCl/ Sodium Chloride (Vancomycin Inj/ NS 250 ml Inj) 262.5 ml @ 250 mls/hr Q12H IV 12/02/16 21:00 12/06/16 08:54 Diphenhydramine HCl (Benadryl Inj) 25 mg Q4H PRN IV PUSH pre-medicate or itching 12/02/16 12:30 12/04/16 12:23 Metronidazole 500 mg 500 mg Q8HR PO 12/02/16 15:00 12/06/16 05:41 Micafungin Sodium/ Sodium Chloride (Mycamine Inj/NS Inj) 100 ml @ 100 mls/hr Q24H IV 12/02/16 18:00 12/05/16 17:38 Amlodipine Besylate (Norvasc) 5 mg DAILY PO 12/03/16 09:00 12/06/16 08:54 Ondansetron HCl (Zofran Inj) 4 mg Q6H PRN IV PUSH NAUSEA OR VOMITING 12/03/16 13:15 12/06/16 05:46 Miscellaneous (Pill Splitter) 1 ea UNSCH PRN OTHER SEE LABEL COMMENTS 12/04/16 12:00 12/04/16 20:59 Vancomycin HCl (VANCOMYCIN for oral use only) 500 mg QID PO 12/04/16 21:00 12/06/16 08:54 Naphazoline HCl (Clear Eyes Redness Relief 0.012% Opth Soln) 1 drop QID PRN EACH EYE dry eyes 12/05/16 11:00 12/05/16 16:47 Objective Remarks GENERAL: Chronically ill appearing female sitting up on side of bed eating breakfast in no distress. SKIN: Warm and dry. Dressing to right chest wall. Skin appears dark. HEAD: Normocephalic. + Alopecia EYES: No injection or drainage. MOUTH: Small herpetic lesion to the left lip NECK: Supple, trachea midline. CARDIOVASCULAR: + S1/S2 RESPIRATORY: Clear posteriorly. Breathing unlabored. GASTROINTESTINAL: Abdomen soft, non-tender, nondistended. EXTREMITIES: No cyanosis NEUROLOGICAL: Awake and alert, normal speech. Moving all extremities. Assessment/Plan Problem List: (1) Headache Status: Chronic Plan: -- Improved Assessment 56y/o with severe pancytopenia, neutropenic fever in a patient who has acute myeloid leukemia. h/o Acute myeloid leukemia, FLT3 positive. Anxiety disorder. COPD. Depression. Hypercholesterolemia. Hypertension. Plan 1. The patient does not require any blood transfusion today. It appears as though her counts are beginning to recover 2. Continue antibiotics per infectious disease 3. Monitor for fevers 4. CBC in the a.m. Attending Statement The exam, history, and the medical decision-making described in the above note were completed with the assistance of the mid-level provider. I reviewed and agree with the findings presented. I attest that I had a [id number] encounter with the patient on the same day, and personally performed and documented my assessment and findings in the medical record. doing well with negative cultures and afebrile . exam unremarkable and counts improving . nothing further to do and expect count to recover in several days. Problem Qualifiers (1) Headache: Qualified Code: G44.209 - Acute non intractable tension-type headache Amina Castellanos Dec 06, 2016 09:34 Jaorcho Knight MD Dec 06, 2016 15:21
[2016-12-06 12:55] VITALS: BP 122/80; PULSE 86; RESP 18; TEMP 96.7; O2SAT 92
[2016-12-06] MEDS: MICAFUNGIN INJ 150 MG in SODIUM CHLORIDE 0.9% INJ 100 ML IV SCH (17:15)
[2016-12-06 17:21] VITALS: BP 125/80; PULSE 90; RESP 16; TEMP 97.4; O2SAT 98
[2016-12-06 20:00] VITALS: BP 142/79; PULSE 80; RESP 17; TEMP 99.1; O2SAT 98
[2016-12-06 21:08] LABS: MEAN CORPUSCULAR HGB CONC 36.3 % (32.0-36.0)
[2016-12-07] VITALS: BP 138/89; PULSE 94; RESP 17; TEMP 100.6; O2SAT 97
[2016-12-07 04:00] VITALS: BP 139/71; PULSE 88; RESP 17; TEMP 97.7; O2SAT 93
[2016-12-07] MEDS: metroNIDAZOLE 500 MG TAB PO SCH ×2 (04:50→13:12)
[2016-12-07] MEDS: valACYclovir HCL 500 MG TAB PO SCH ×3 (04:50→20:58)
[2016-12-07] MEDS: AZTREONAM INJ 1,000 MG in SODIUM CHLORIDE 0.9% INJ 100 ML IV SCH ×3 (04:51→20:54)
[2016-12-07] MEDS: SODIUM CHLORIDE 0.9% FLUSH 10 ML FLUSH IV FLUSH PRN (04:51)
[2016-12-07] MEDS: ONDANSETRON HCL 4 MG/2 ML VIAL IV PUSH PRN ×3 (04:51→20:58)
[2016-12-07] MEDS: ACYCLOVIR 5% CREAM 5 GM TUBE TOPICAL SCH ×5 (04:52→21:05)
[2016-12-07 08:00] VITALS: BP 123/71; PULSE 85; RESP 12; TEMP 98.3; O2SAT 85
[2016-12-07] MEDS: RYDAPT 25 MG PO SCH ×2 (09:00→21:04)
[2016-12-07] MEDS: VANCOMYCIN 500 MG VIAL (FOR ORAL USE ONLY) PO SCH ×4 (09:07→20:58)
[2016-12-07] MEDS: SODIUM CHLORIDE 0.9% FLUSH 10 ML FLUSH IV FLUSH SCH ×2 (10:12→20:48)
[2016-12-07] MEDS: VANCOMYCIN INJ 1,250 MG in SODIUM CHLOR 0.9% 250 ML INJ 250 ML IV SCH ×2 (10:12→22:05)
[2016-12-07 11:16] LABS: AUTOMATED NEUTROPHIL # 0.6 TH/MM3 (1.8-7.7); BASOPHIL % 0.1 % (0.0-2.0); EOSINOPHIL % 0.1 % (0.0-4.0); HEMATOCRIT 26.8 % (35.0-46.0); LYMPH % 17.8 % (9.0-44.0); LYMPHOCYTE # 0.2 TH/MM3 (1.0-4.8); MEAN CELL VOLUME 82.3 FL (80.0-100.0); MEAN CORPUSCULAR HEMOGLOBIN 29.9 PG (27.0-34.0); RED BLOOD COUNT 3.25 MIL/MM3 (4.00-5.30); RED CELL DISTRIBUTION WIDTH 13.7 % (11.6-17.2); WHITE BLOOD COUNT 1.1 TH/MM3 (4.0-11.0)
[2016-12-07 11:27] LABS: HEMO FLAGS AUTO DIFF
[2016-12-07 11:29] LABS: PLATELET COUNT 17 TH/MM3 (150-450)
[2016-12-07 11:45] LABS: ALT (GPT) 27 U/L (10-53); ANION GAP 12 MEQ/L (5-15); AST (GOT) 19 U/L (15-37); BICARBONATE 26.3 MEQ/L (21.0-32.0); BLOOD UREA NITROGEN 8 MG/DL (7-18); CHLORIDE 97 MEQ/L (98-107); GLOMERULAR FILTRATION RATE 82 ML/MIN (>89); SODIUM (NA) 135 MEQ/L (136-145)
[2016-12-07 11:48] LABS: ALKALINE PHOSPHATASE 76 U/L (45-117); TOTAL BILIRUBIN ADULT 1.3 MG/DL (0.2-1.0)
[2016-12-07 12:00] VITALS: BP 127/89; PULSE 99; RESP 14; TEMP 98.4; O2SAT 93
[2016-12-07] MEDS ORDERED: POTASSIUM CHLORIDE INJ 40 MEQ in SODIUM CHLOR 0.9% 1000 ML INJ 1,000 ML IV SCH (12:00)
[2016-12-07] MEDS ORDERED: POTASSIUM CHLORIDE 10 MEQ CONTROLLED RELEASE TAB PO ONE (12:00)
[2016-12-07] MEDS ORDERED: NS + KCL 40 MEQ INJ 1,000 ML IV SCH (12:30)
--- NOTE | 2016-12-07 12:33 | PD.ONC.PN ---
Subjective Subjective Remarks Tmax 100.6 overnight. Headache and nasal congestion improved. Excited about her visitors today. No new complaints. Objective Data Date Time Temp Pulse Resp B/P Pulse Ox O2 Delivery O2 Flow Rate FiO2 12/07/16 12:00 98.4 99 14 127/89 93 12/07/16 08:00 98.3 85 12 123/71 85 12/07/16 04:00 97.7 88 17 139/71 93 12/07/16 02:22 20 12/07/16 00:00 100.6 94 17 138/89 97 12/06/16 20:00 99.1 80 17 142/79 98 12/06/16 17:21 97.4 90 16 125/80 98 12/06/16 12:55 96.7 86 18 122/80 92 12/07/16 12/07/16 12/07/16 07:00 15:00 23:00 Intake Total 520 ml Balance 520 ml Result Diagram: 12/07/16 1012 12/07/16 1012 Laboratory Results Laboratory Tests Test 12/07/16 10:12 White Blood Count 1.1 TH/MM3 Red Blood Count 3.25 MIL/MM3 Hemoglobin 9.7 GM/DL Hematocrit 26.8 % Mean Corpuscular Volume 82.3 FL Mean Corpuscular Hemoglobin 29.9 PG Mean Corpuscular Hemoglobin 36.3 % Concent Red Cell Distribution Width 13.7 % Platelet Count 17 TH/MM3 Mean Platelet Volume 7.8 FL Neutrophils (%) (Auto) 51.0 % Lymphocytes (%) (Auto) 17.8 % Monocytes (%) (Auto) 31.0 % Eosinophils (%) (Auto) 0.1 % Basophils (%) (Auto) 0.1 % Neutrophils # (Auto) 0.6 TH/MM3 Lymphocytes # (Auto) 0.2 TH/MM3 Monocytes # (Auto) 0.3 TH/MM3 Eosinophils # (Auto) 0.0 TH/MM3 Basophils # (Auto) 0.0 TH/MM3 CBC Comment AUTO DIFF Sodium Level 135 MEQ/L Potassium Level 3.0 MEQ/L Chloride Level 97 MEQ/L Carbon Dioxide Level 26.3 MEQ/L Anion Gap 12 MEQ/L Blood Urea Nitrogen 8 MG/DL Creatinine 0.73 MG/DL Estimat Glomerular Filtration 82 ML/MIN Rate Random Glucose 195 MG/DL Calcium Level 9.4 MG/DL Total Bilirubin 1.3 MG/DL Aspartate Amino Transf 19 U/L (AST/SGOT) Alanine Aminotransferase 27 U/L (ALT/SGPT) Alkaline Phosphatase 76 U/L Total Protein 7.2 GM/DL Albumin 3.1 GM/DL Culture Results Microbiology Date/Time Procedure Status Source Growth 12/04/16 18:15 Gram Stain - Final Complete Wound Other 12/04/16 18:15 Wound Culture - Final Complete Wound Other NO GROWTH IN 72 HRS.--AEROBICALLY OR ... Administered Medications Medications (Trade) Dose Ordered Sig/Zeynep Route PRN Reason Start Time Stop Time Status Last Admin Dose Admin Sodium Chloride (NS Flush) 2 ml BID IV FLUSH 11/28/16 21:00 12/07/16 10:12 Sodium Chloride (NS Flush) 2 ml UNSCH PRN IVF FLUSH AFTER USING IV ACCESS 11/28/16 20:00 11/30/16 06:33 Acetaminophen (Tylenol) 650 mg Q4H PRN PO FEVER>100.4 11/29/16 01:30 12/04/16 01:28 Carvedilol (Coreg) 3.125 mg DAILY PO 11/29/16 09:00 12/06/16 08:54 Patient Own Medication PT OWN MED: RYD... BID PO 11/29/16 21:00 12/07/16 09:00 Sodium Chloride (NS Flush) 5 ml UNSCH PRN IV FLUSH SEE PROTOCOL TABLE 11/30/16 06:45 12/07/16 04:51 Sodium Chloride (NS Flush) 5 ml UNSCH PRN IV FLUSH NEEDED 11/30/16 06:45 12/01/16 04:11 Hydrochlorothiazide (Hydrodiuril) 25 mg DAILY PO 12/01/16 09:00 12/06/16 08:54 Losartan Potassium (Cozaar) 100 mg DAILY PO 12/01/16 09:00 12/06/16 08:54 Valacyclovir HCl (Valtrex) 1,000 mg Q8HR PO 12/01/16 14:00 12/07/16 04:50 Multi-Ingredient Mouthwash/Gargle (Magic Mouthwash Adult Liq) 5 ml QID PRN PO sore throat 12/01/16 10:45 12/06/16 22:00 Oxycodone HCl (Roxicodone) 5 mg Q6H PRN PO pain 1-10 12/01/16 11:00 12/07/16 01:22 Prochlorperazine Maleate 10 mg 10 mg QID PRN PO nausea 12/01/16 14:45 12/03/16 08:43 Aztreonam 1000 mg/ Sodium Chloride 100 ml @ 200 mls/hr Q8H IV 12/02/16 13:00 12/07/16 04:51 Vancomycin HCl/ Sodium Chloride (Vancomycin Inj/ NS 250 ml Inj) 262.5 ml @ 250 mls/hr Q12H IV 12/02/16 21:00 12/07/16 10:12 Diphenhydramine HCl (Benadryl Inj) 25 mg Q4H PRN IV PUSH pre-medicate or itching 12/02/16 12:30 12/04/16 12:23 Metronidazole 500 mg 500 mg Q8HR PO 12/02/16 15:00 12/07/16 04:50 Micafungin Sodium/ Sodium Chloride (Mycamine Inj/NS Inj) 100 ml @ 100 mls/hr Q24H IV 12/02/16 18:00 12/06/16 17:15 Amlodipine Besylate (Norvasc) 5 mg DAILY PO 12/03/16 09:00 12/06/16 08:54 Ondansetron HCl (Zofran Inj) 4 mg Q6H PRN IV PUSH NAUSEA OR VOMITING 12/03/16 13:15 12/07/16 10:24 Miscellaneous (Pill Splitter) 1 ea UNSCH PRN OTHER SEE LABEL COMMENTS 12/04/16 12:00 12/04/16 20:59 Vancomycin HCl (VANCOMYCIN for oral use only) 500 mg QID PO 12/04/16 21:00 12/07/16 09:07 Naphazoline HCl (Clear Eyes Redness Relief 0.012% Opth Soln) 1 drop QID PRN EACH EYE dry eyes 12/05/16 11:00 12/05/16 16:47 Objective Remarks GENERAL: chronically ill female upright in chair next to bed in [facility]. SKIN: Warm and dry. port de-accessed, right chest wall. HEAD: Normocephalic. EYES: No injection or drainage. MOUTH: herpetic lesion, left lip resolving. NECK: Supple, trachea midline. CARDIOVASCULAR: Regular rate and rhythm RESPIRATORY: Breath sounds equal bilaterally. No accessory muscle use. GASTROINTESTINAL: Abdomen soft, non-tender, nondistended. EXTREMITIES: No cyanosis NEUROLOGICAL: aox3. normal speech. moving all extremities. Assessment/Plan Problem List: (1) Neutropenic fever Status: Acute Plan: 12/07: neutrophil count improved to 600 today. line culture came back negative. will have nurse re-access port if another line is needed. continue abx 12/04: having persistent nasal congestion. continue abx per ID. 9 episodes of diarrhea overnight d/t C. diff. continue supportive care. 12/03: ID following. d/w Dr. Haney patient's headache, congestion and abdominal pain. CT ab/pelvis shows no acute diverticulitis. C. diff positive 12/02: stop Cefepime,start Azactam. patient believes cefepime is causing her headache. will also add diflucan and consult infectious disease for recurrent fevers while on abx. 12/01: bc no growth. continue Vanco and Cefepime. add valtrex for mouth sore. patient has been receiving tylenol for headache which may have been masking fever. i have changed indication to fever only and will add roxicodone for headache. 11/30: spiked another fever last night. blood cultures showing no growth thus far. continue abx. will consult ID if spiking fevers persist. --on Vancomycin, Azactam, Flagyl, Valtrex, Micafungin --C. Diff positive --BC 12.03: no growth --BC .: no growth/pending --BC, 7. no growth. --CXR: mild cardiomegaly --U/A--neg (2) Pancytopenia Status: Acute Plan: --due to chemotherapy --transfuse 2units pRBC for hgb less than 8 --transfuse 1 unit platelets for platelet count less than 15 (3) Acute myeloid leukemia Status: Acute Plan: --in remission, status post C1 consolidation with high-dose Zuleyka-C one week ago. --being evaluated at [facility] for transplant --patient's home medication, Rydapt was resumed (4) Hypertension Status: Acute Plan: --on Losartan, Coreg, Amlodipine (5) Headache Status: Chronic Plan: -- Improved Assessment 56y/o with severe pancytopenia, neutropenic fever in a patient who has acute myeloid leukemia. h/o Acute myeloid leukemia, FLT3 positive. Anxiety disorder. COPD. Depression. Hypercholesterolemia. Hypertension. Attending Statement Eating lunch, State she's overall feeling better No more fever ANC is coming up >500 Continue present anabiotic Expect to be discharged by this Wednesday The exam, history, and the medical decision-making described in the above note were completed with the assistance of the mid-level provider. I reviewed and agree with the findings presented. I attest that I had a [id number] encounter with the patient on the same day, and personally performed and documented my assessment and findings in the medical record. Problem Qualifiers (1) Headache: Qualified Code: G44.209 - Acute non intractable tension-type headache Julianna Mcdaniel Dec 07, 2016 12:33 April Fonseca MD Dec 07, 2016 22:41
[2016-12-07 12:36] LABS: BANDS 4 % (0-6); NEUTROPHIL # MANUAL DIFF 0.6 TH/MM3 (1.8-7.7); PLATELET ESTIMATE SMEAR LOW (NORMAL); PLATELET MORPHOLOGY NORMAL (NORMAL); POLYS (SEG NEUTROPHILS) 46 % (16-70); SCAN/DIFF FINAL DIFF MANUAL; WBC DIFF SAMPLE 100
[2016-12-07] MEDS: CARVEDILOL 3.125 MG TAB PO SCH (13:12)
[2016-12-07] MEDS: amLODIPine BESYLATE 5 MG TAB PO SCH (13:13)
[2016-12-07] MEDS: HYDROCHLOROTHIAZIDE 25 MG TAB PO SCH (13:13)
[2016-12-07] MEDS: LOSARTAN 50 MG TAB PO SCH (13:13)
--- NOTE | 2016-12-07 14:20 | HHI.IDPN ---
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 She received induction chemotherapy with good response. Recently she was started on consolidation chemotherapy. She tolerated the procedure well, and she was seen in follow-up. At that time she was neutropenic and she was started on Levaquin. Patient also went to [facility] for transplant evaluation. She was found to be suitable candidate. Her problems started about the day prior to admission when she started not feeling well. She has had generalized weakness, fatigue, and was having some dyspnea on exertion. On day of admission she had a fever, and was seen in the emergency room. Her white count was 0.2 and her platelet count was only 2000. Patient has been in the hospital since, and has been running some fevers. Patient has no COPD, and has a chronic dry cough which is no change. Her chest x-ray here have been normal. She developed some sores on her lip on the day she came in, and she had noticed a sore in her palate. Patient denies having any prior history of fever blister. She did have a similar sore in her palate when she had her first chemotherapy. She has not had any nausea or vomiting. Today she had 1 episode of diarrhea. She is voiding okay without any problem. She denies any back pain. She has not had any swallowing difficulty. She's had blood cultures done and they have all been negative. Chest x-ray were negative. She had a CT of the head and I was also negative. She had a headache last night and this morning. It is improving currently. Patient was initially on Vanco and cefepime, and so on Diflucan and Valtrex. Cefepime was stopped and she is now on Azactam. Notes reviewed Temps occ low grade Stools better, becoming more formed Port stie feel better C/S from port negative WBC up to 1.1 Antibiotics Vanco IV and PO Azactam Micafungin Flagyl Lines Port Past Medical History Acute myeloid leukemia Anxiety disorder. COPD. Depression. Hypercholesterolemia. Hypertension. Past Surgical History Cholecystectomy ?hysterectomy. [id number]-[id number] placement Right foot surgery. Allergies: Coded Allergies: Latex (Verified Allergy, Severe, Rash, 08/15/16) Sulfa (Verified Adverse Reaction, Severe, Vomiting, cramps, 08/15/16) Objective . Vital Signs Date Time Temp Pulse Resp B/P Pulse Ox O2 Delivery O2 Flow Rate FiO2 12/07/16 12:00 98.4 99 14 127/89 93 12/07/16 08:00 98.3 85 12 123/71 85 12/07/16 04:00 97.7 88 17 139/71 93 12/07/16 02:22 20 12/07/16 00:00 100.6 94 17 138/89 97 12/06/16 20:00 99.1 80 17 142/79 98 12/06/16 17:21 97.4 90 16 125/80 98 12/06/16 12/06/16 12/07/16 14:59 22:59 06:59 Intake Total 375 ml 480 ml 520 ml Balance 375 ml 480 ml 520 ml Intake Oral 480 ml 120 ml IV Total 375 ml 400 ml # Voids 2 1 # Bowel Movements 0 0 . Laboratory Tests Test 12/06/16 12/07/16 06:14 10:12 White Blood Count 0.8 TH/MM3 1.1 TH/MM3 Red Blood Count 3.08 MIL/MM3 3.25 MIL/MM3 Hemoglobin 9.1 GM/DL 9.7 GM/DL Hematocrit 25.7 % 26.8 % Mean Corpuscular Volume 83.3 FL 82.3 FL Mean Corpuscular Hemoglobin 29.5 PG 29.9 PG Mean Corpuscular Hemoglobin 35.4 % 36.3 % Concent Red Cell Distribution Width 13.9 % 13.7 % Platelet Count 22 TH/MM3 17 TH/MM3 Mean Platelet Volume 7.2 FL 7.8 FL Neutrophils (%) (Auto) 28.9 % 51.0 % Lymphocytes (%) (Auto) 32.6 % 17.8 % Monocytes (%) (Auto) 37.9 % 31.0 % Eosinophils (%) (Auto) 0.3 % 0.1 % Basophils (%) (Auto) 0.3 % 0.1 % Neutrophils # (Auto) 0.2 TH/MM3 0.6 TH/MM3 Lymphocytes # (Auto) 0.2 TH/MM3 0.2 TH/MM3 Monocytes # (Auto) 0.3 TH/MM3 0.3 TH/MM3 Eosinophils # (Auto) 0.0 TH/MM3 0.0 TH/MM3 Basophils # (Auto) 0.0 TH/MM3 0.0 TH/MM3 CBC Comment AUTO DIFF AUTO DIFF Differential Total Cells 70 100 Counted Neutrophils % (Manual) 29 % 46 % Band Neutrophils % 1 % 4 % Lymphocytes % 36 % 19 % Monocytes % 28 % 31 % Eosinophils % 6 % Neutrophils # (Manual) 0.2 TH/MM3 0.6 TH/MM3 Differential Comment FINAL DIFF FINAL DIFF MANUAL MANUAL Platelet Estimate LOW LOW Platelet Morphology Comment NORMAL NORMAL Red Cell Morphology Comment NORMAL NORMAL Laboratory Tests Test 12/06/16 12/07/16 06:14 10:12 Sodium Level 137 MEQ/L 135 MEQ/L Potassium Level 3.2 MEQ/L 3.0 MEQ/L Chloride Level 101 MEQ/L 97 MEQ/L Carbon Dioxide Level 27.8 MEQ/L 26.3 MEQ/L Anion Gap 8 MEQ/L 12 MEQ/L Blood Urea Nitrogen 9 MG/DL 8 MG/DL Creatinine 0.62 MG/DL 0.73 MG/DL Estimat Glomerular Filtration 99 ML/MIN 82 ML/MIN Rate Random Glucose 121 MG/DL 195 MG/DL Calcium Level 9.3 MG/DL 9.4 MG/DL Total Bilirubin 1.3 MG/DL 1.3 MG/DL Aspartate Amino Transf 15 U/L 19 U/L (AST/SGOT) Alanine Aminotransferase 26 U/L 27 U/L (ALT/SGPT) Alkaline Phosphatase 70 U/L 76 U/L Total Protein 6.7 GM/DL 7.2 GM/DL Albumin 3.0 GM/DL 3.1 GM/DL Microbiology Date/Time Procedure Status Source Growth 12/04/16 18:15 Gram Stain - Final Complete Wound Other 12/04/16 18:15 Wound Culture - Final Complete Wound Other NO GROWTH IN 72 HRS.--AEROBICALLY OR ... 12/07/16 13:19 Aerobic Blood Culture Received Blood Peripheral Pending 12/07/16 13:19 Anaerobic Blood Culture Received Blood Peripheral Pending Imaging Abdomen/Pelvis CT 12/03/16 0000 Signed Impressions: Service Date/Time: November 14:15 - CONCLUSION: 1. 6 and 4 mm noncalcified indeterminate pulmonary nodules within the right lung base. Follow-up CT of the chest in six months is recommended. 2. Enlarged fatty liver. 3. Few uncomplicated colonic diverticula. 4. 7.4 cm left renal cyst. 5. Degenerative changes and scoliosis of the thoracolumbar spine. Malcolm Coker MD Head CT 12/01/16 0000 Signed Impressions: Service Date/Time: Thursday, December 01, 2016 13:17 - CONCLUSION: Negative exam. Cristo Hughes MD Chest X-Ray 12/01/16 0000 Signed Impressions: Service Date/Time: Thursday, December 01, 2016 19:28 - CONCLUSION: Cardiomegaly. No consolidation. Barrera Turner MD Physical Exam GENERAL: Awake and alert, NAD SKIN: Warm and dry. Has some petechial rash in both legs stable; improving ecchymoses in anterior abdominal wall HEAD: Atraumatic. Normocephalic. No temporal wasting, or tenderness. EYES: [place] conjunctiva. No petechia or hemorrhage. Pupils equal, round and reactive to light. Extraocular movements full and intact. No scleral icterus. No injection or drainage. EARS, NOSE AND THROAT: Nose without bleeding or purulent nasal discharge. No sinus tenderness. Mucous membranes pink and moist. 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 No exudate. No oral thrush. NECK: Trachea midline. Supple and not tender, no meningeal signs CARDIOVASCULAR: Regular rate and rhythm. No murmurs, rubs or gallops heard RESPIRATORY: Clear to auscultation. Breath sounds equal bilaterally. No rales , wheezing or rhonchi ABDOMEN: Soft, globular, nondistended. Bowel sounds present and normoactive. Mild tenderness L side. No guarding. No rebound. Scars compatible with surgery. EXTREMITIES: No clubbing, cyanosis, or edema.No joint effusion, has good ROM. No calf tenderness. Well perfused and warm. NEUROLOGICAL: Non-focal PSYCHIATRIC: Normal affect, calm and cooperative. LINE: Port has bluish discoloration, not tender now. Assessment & Plan Remarks IMPRESSION Neutropenic fevers, S/P consolidation chemo for AML - C/S negative - chronic cough related to COPD, CXR ok - no complaints, initial UA ok - has diarrhea now, C diff (+), better - some elevation of LFT on admission, bilirubin elevated - has healing HSV on lip; has lesions also in her palate, ?etiology AML S/P chemo, has pancytopenia COPD LLQ pain, prob related to C diff; CT no abscess, no bowel wall thickening - stool better ?Bled in port site due to very low platelets RECOMMENDATION Continue Vanco Continue Azactam for GNR coverage Also on Valtrex Stop Flagyl for C diff Continue po Vancomycin - she got better quickly when this was added Continue Micafungin for empiric antifungal Follow port site physician oral ulcers Monitor temps Monitor progress D/W H Vijaya Chatterjee MD Dec 07, 2016 14:20
[2016-12-07 16:00] VITALS: BP 139/100; PULSE 101; RESP 14; TEMP 98.4; O2SAT 94
[2016-12-07] MEDS: MICAFUNGIN INJ 150 MG in SODIUM CHLORIDE 0.9% INJ 100 ML IV SCH (17:39)
[2016-12-07 20:00] VITALS: BP 156/95; PULSE 107; RESP 20; TEMP 99.5; O2SAT 94
[2016-12-08] VITALS: BP 100/62; PULSE 93; RESP 17; TEMP 98.8; O2SAT 94
[2016-12-08 04:00] VITALS: BP 105/64; PULSE 98; RESP 17; TEMP 99.1; O2SAT 96
[2016-12-08] MEDS: AZTREONAM INJ 1,000 MG in SODIUM CHLORIDE 0.9% INJ 100 ML IV SCH ×3 (04:20→20:39)
[2016-12-08] MEDS: valACYclovir HCL 500 MG TAB PO SCH ×3 (05:01→21:57)
[2016-12-08] MEDS: ACYCLOVIR 5% CREAM 5 GM TUBE TOPICAL SCH ×5 (05:01→21:58)
[2016-12-08 08:00] VITALS: BP 124/61; PULSE 108; RESP 18; TEMP 100; O2SAT 95
[2016-12-08 08:01] LABS: MEAN CORPUSCULAR HGB CONC 36.5 % (32.0-36.0)
[2016-12-08] MEDS: SODIUM CHLORIDE 0.9% FLUSH 10 ML FLUSH IV FLUSH SCH ×2 (08:55→20:39)
[2016-12-08] MEDS: LOSARTAN 50 MG TAB PO SCH (08:56)
[2016-12-08] MEDS: CARVEDILOL 3.125 MG TAB PO SCH (08:56)
[2016-12-08] MEDS: HYDROCHLOROTHIAZIDE 25 MG TAB PO SCH (08:56)
[2016-12-08] MEDS: amLODIPine BESYLATE 5 MG TAB PO SCH (08:57)
[2016-12-08] MEDS: VANCOMYCIN 500 MG VIAL (FOR ORAL USE ONLY) PO SCH ×4 (08:57→20:38)
[2016-12-08] MEDS: RYDAPT 25 MG PO SCH ×2 (08:57→20:39)
[2016-12-08] MEDS: VANCOMYCIN INJ 1,250 MG in SODIUM CHLOR 0.9% 250 ML INJ 250 ML IV SCH ×2 (08:58→21:57)
[2016-12-08] MEDS: ONDANSETRON HCL 4 MG/2 ML VIAL IV PUSH PRN ×3 (09:57→18:32)
[2016-12-08 12:00] VITALS: BP 134/80; PULSE 86; RESP 18; TEMP 98.4; O2SAT 96
--- NOTE | 2016-12-08 12:07 | PD.ONC.PN ---
Subjective Subjective Remarks Afebrile overnight. Diarrhea improving. Had some nausea from antibiotic this morning and one episode of vomiting. Feeling better now. Objective Data Date Time Temp Pulse Resp B/P Pulse Ox O2 Delivery O2 Flow Rate FiO2 12/08/16 08:00 100.0 108 18 124/61 95 12/08/16 04:00 99.1 98 17 105/64 96 12/08/16 00:00 98.8 93 17 100/62 94 12/07/16 20:00 99.5 107 20 156/95 94 12/07/16 16:00 98.4 101 14 139/100 94 Result Diagram: 12/07/16 1012 12/07/16 1012 Culture Results Microbiology Date/Time Procedure Status Source Growth 12/07/16 13:19 Aerobic Blood Culture - Preliminary Resulted Blood Peripheral NO GROWTH IN 1 DAY 12/07/16 13:19 Anaerobic Blood Culture - Preliminary Resulted Blood Peripheral NO GROWTH IN 1 DAY Administered Medications Medications (Trade) Dose Ordered Sig/Zeynep Route PRN Reason Start Time Stop Time Status Last Admin Dose Admin Sodium Chloride (NS Flush) 2 ml BID IV FLUSH 11/28/16 21:00 12/08/16 08:55 Sodium Chloride (NS Flush) 2 ml UNSCH PRN IVF FLUSH AFTER USING IV ACCESS 11/28/16 20:00 11/30/16 06:33 Acetaminophen (Tylenol) 650 mg Q4H PRN PO FEVER>100.4 11/29/16 01:30 12/04/16 01:28 Carvedilol (Coreg) 3.125 mg DAILY PO 11/29/16 09:00 12/08/16 08:56 Patient Own Medication PT OWN MED: RYD... BID PO 11/29/16 21:00 12/08/16 08:57 Sodium Chloride (NS Flush) 5 ml UNSCH PRN IV FLUSH SEE PROTOCOL TABLE 11/30/16 06:45 12/07/16 04:51 Sodium Chloride (NS Flush) 5 ml UNSCH PRN IV FLUSH NEEDED 11/30/16 06:45 12/01/16 04:11 Hydrochlorothiazide (Hydrodiuril) 25 mg DAILY PO 12/01/16 09:00 12/08/16 08:56 Losartan Potassium (Cozaar) 100 mg DAILY PO 12/01/16 09:00 12/08/16 08:56 Valacyclovir HCl (Valtrex) 1,000 mg Q8HR PO 12/01/16 14:00 12/08/16 05:01 Multi-Ingredient Mouthwash/Gargle (Magic Mouthwash Adult Liq) 5 ml QID PRN PO sore throat 12/01/16 10:45 12/06/16 22:00 Oxycodone HCl (Roxicodone) 5 mg Q6H PRN PO pain 1-10 12/01/16 11:00 12/07/16 22:05 Prochlorperazine Maleate 10 mg 10 mg QID PRN PO nausea 12/01/16 14:45 12/03/16 08:43 Aztreonam 1000 mg/ Sodium Chloride 100 ml @ 200 mls/hr Q8H IV 12/02/16 13:00 12/08/16 04:20 Vancomycin HCl/ Sodium Chloride (Vancomycin Inj/ NS 250 ml Inj) 262.5 ml @ 250 mls/hr Q12H IV 12/02/16 21:00 12/08/16 08:58 Diphenhydramine HCl 25 mg 25 mg Q4H PRN IV PUSH pre-medicate or itching 12/02/16 12:30 12/04/16 12:23 Micafungin Sodium/ Sodium Chloride (Mycamine Inj/NS Inj) 100 ml @ 100 mls/hr Q24H IV 12/02/16 18:00 12/07/16 17:39 Amlodipine Besylate (Norvasc) 5 mg DAILY PO 12/03/16 09:00 12/08/16 08:57 Ondansetron HCl (Zofran Inj) 4 mg Q6H PRN IV PUSH NAUSEA OR VOMITING 12/03/16 13:15 12/08/16 09:57 Miscellaneous (Pill Splitter) 1 ea UNSCH PRN OTHER SEE LABEL COMMENTS 12/04/16 12:00 12/04/16 20:59 Vancomycin HCl (VANCOMYCIN for oral use only) 500 mg QID PO 12/04/16 21:00 12/08/16 08:57 Naphazoline HCl (Clear Eyes Redness Relief 0.012% Opth Soln) 1 drop QID PRN EACH EYE dry eyes 12/05/16 11:00 12/05/16 16:47 Objective Remarks GENERAL: chronically ill female lying in bed in [place]. SKIN: Warm and dry. HEAD: Normocephalic. EYES: No injection or drainage. MOUTH: herpetic lesion, left lip resolving. NECK: Supple, trachea midline. CARDIOVASCULAR: Regular rate and rhythm RESPIRATORY: Breath sounds equal bilaterally. No accessory muscle use. GASTROINTESTINAL: Abdomen soft, non-tender, nondistended. EXTREMITIES: No cyanosis NEUROLOGICAL: awake and alert, normal speech. Assessment/Plan Problem List: (1) Neutropenic fever Status: Acute Plan: 12/08: d/c neutropenic precautions. continue abx per ID. 12/07: neutrophil count improved to 600 today. line culture came back negative. will have nurse re-access port if another line is needed. continue abx 12/04: having persistent nasal congestion. continue abx per ID. 9 episodes of diarrhea overnight d/t C. diff. continue supportive care. 12/03: ID following. d/w Dr. Haney patient's headache, congestion and abdominal pain. CT ab/pelvis shows no acute diverticulitis. C. diff positive 12/02: stop Cefepime,start Azactam. patient believes cefepime is causing her headache. will also add diflucan and consult infectious disease for recurrent fevers while on abx. 12/01: bc no growth. continue Vanco and Cefepime. add valtrex for mouth sore. patient has been receiving tylenol for headache which may have been masking fever. i have changed indication to fever only and will add roxicodone for headache. 11/30: spiked another fever last night. blood cultures showing no growth thus far. continue abx. will consult ID if spiking fevers persist. --on Vancomycin, Azactam, Flagyl, Valtrex, Micafungin --C. Diff positive --BC 12.03: no growth --BC : no growth/pending --BC, 7. no growth. --CXR: mild cardiomegaly --U/A--neg (2) Pancytopenia Status: Acute Plan: --due to chemotherapy --transfuse 2units pRBC for hgb less than 8 --transfuse 1 unit platelets for platelet count less than 15 (3) Acute myeloid leukemia Status: Acute Plan: --in remission, status post C1 consolidation with high-dose Zuleyka-C one week ago. --being evaluated at [facility] for transplant --patient's home medication, Rydapt was resumed (4) Hypertension Status: Acute Plan: --on Losartan, Coreg, Amlodipine (5) Headache Status: Chronic Plan: -- Improved Assessment 56y/o with severe pancytopenia, neutropenic fever in a patient who has acute myeloid leukemia. h/o Acute myeloid leukemia, FLT3 positive. Anxiety disorder. COPD. Depression. Hypercholesterolemia. Hypertension. Attending Statement c/o N/Vno more fevers. ANC 1,000. D/c Neutropenic precautions. The exam, history, and the medical decision-making described in the above note were completed with the assistance of the mid-level provider. I reviewed and agree with the findings presented. I attest that I had a [id number] encounter with the patient on the same day, and personally performed and documented my assessment and findings in the medical record. Problem Qualifiers (1) Headache: Qualified Code: G44.209 - Acute non intractable tension-type headache Julianna Mcdaniel Dec 08, 2016 12:07 April Fonseca MD Dec 08, 2016 21:26
[2016-12-08 13:39] LABS: AUTOMATED NEUTROPHIL # 0.8 TH/MM3 (1.8-7.7); BASOPHIL % 0.1 % (0.0-2.0); HEMATOCRIT 22.5 % (35.0-46.0); LYMPH % 15.3 % (9.0-44.0); LYMPHOCYTE # 0.2 TH/MM3 (1.0-4.8); MEAN CELL VOLUME 82.7 FL (80.0-100.0); MEAN CORPUSCULAR HEMOGLOBIN 30.1 PG (27.0-34.0); MONO % 32.3 % (0.0-8.0); NEUT % 52.3 % (16.0-70.0); RED BLOOD COUNT 2.72 MIL/MM3 (4.00-5.30); RED CELL DISTRIBUTION WIDTH 13.5 % (11.6-17.2); WHITE BLOOD COUNT 1.6 TH/MM3 (4.0-11.0)
[2016-12-08 13:44] LABS: HEMO FLAGS AUTO DIFF
[2016-12-08 13:46] LABS: PLATELET COUNT 14 TH/MM3 (150-450)
[2016-12-08 14:01] LABS: BICARBONATE 31.7 MEQ/L (21.0-32.0); POTASSIUM 3.8 MEQ/L (3.5-5.1)
[2016-12-08 14:04] LABS: INDIRECT BILIRUBIN 0.9 MG/DL (0.0-0.8); TOTAL BILIRUBIN ADULT 1.1 MG/DL (0.2-1.0)
[2016-12-08] MEDS ORDERED: AMLO5 PO (14:09)
[2016-12-08 14:40] LABS: BANDS 2 % (0-6); POLYS (SEG NEUTROPHILS) 61 % (16-70); WBC DIFF SAMPLE 100
[2016-12-08 14:41] LABS: PLATELET ESTIMATE SMEAR LOW (NORMAL); PLATELET MORPHOLOGY NORMAL (NORMAL); SCAN/DIFF FINAL DIFF MANUAL
[2016-12-08 16:00] VITALS: BP 137/76; PULSE 94; RESP 18; TEMP 98.8; O2SAT 94
[2016-12-08] MEDS: MICAFUNGIN INJ 150 MG in SODIUM CHLORIDE 0.9% INJ 100 ML IV SCH (19:10)
[2016-12-08 20:00] VITALS: BP 134/83; PULSE 96; RESP 18; TEMP 98.8; O2SAT 93
[2016-12-08] MEDS: PROCHLORPERAZINE MALEATE 10 MG TAB PO PRN (20:38)
[2016-12-08 21:12] LABS: MEAN CORPUSCULAR HGB CONC 36.7 % (32.0-36.0)
[2016-12-09] VITALS (10 sets, daily range): BP systolic 110–150; BP diastolic 65–93; PULSE 84–104; RESP 17–20; TEMP 97.4–100.4; O2SAT 93–99
[2016-12-09] MEDS: ACYCLOVIR 5% CREAM 5 GM TUBE TOPICAL SCH ×5 (05:12→22:56)
[2016-12-09] MEDS: AZTREONAM INJ 1,000 MG in SODIUM CHLORIDE 0.9% INJ 100 ML IV SCH ×3 (05:13→21:49)
[2016-12-09] MEDS: valACYclovir HCL 500 MG TAB PO SCH ×3 (05:13→22:49)
[2016-12-09 08:01] LABS: HEMATOCRIT 21.1 % (35.0-46.0); MEAN CELL VOLUME 81.7 FL (80.0-100.0); RED BLOOD COUNT 2.58 MIL/MM3 (4.00-5.30); RED CELL DISTRIBUTION WIDTH 13.4 % (11.6-17.2); WHITE BLOOD COUNT 1.9 TH/MM3 (4.0-11.0)
[2016-12-09 08:14] LABS: HEMO FLAGS AUTO DIFF
[2016-12-09 08:16] LABS: BICARBONATE 30.9 MEQ/L (21.0-32.0); POTASSIUM 3.5 MEQ/L (3.5-5.1)
[2016-12-09 08:18] LABS: PLATELET COUNT 12 TH/MM3 (150-450)
[2016-12-09] MEDS: SODIUM CHLORIDE 0.9% FLUSH 10 ML FLUSH IV FLUSH SCH ×2 (09:00→21:00)
[2016-12-09] MEDS: amLODIPine BESYLATE 5 MG TAB PO SCH (09:22)
[2016-12-09] MEDS: VANCOMYCIN 500 MG VIAL (FOR ORAL USE ONLY) PO SCH ×4 (09:22→22:49)
[2016-12-09] MEDS: CARVEDILOL 3.125 MG TAB PO SCH (09:22)
[2016-12-09] MEDS: HYDROCHLOROTHIAZIDE 25 MG TAB PO SCH (09:22)
[2016-12-09] MEDS: LOSARTAN 50 MG TAB PO SCH (09:22)
[2016-12-09] MEDS: VANCOMYCIN INJ 1,250 MG in SODIUM CHLOR 0.9% 250 ML INJ 250 ML IV SCH ×2 (09:22→22:49)
[2016-12-09] MEDS: RYDAPT 25 MG PO SCH ×2 (09:23→21:00)
[2016-12-09] MEDS: ONDANSETRON HCL 4 MG/2 ML VIAL IV PUSH PRN ×2 (09:25→16:44)
[2016-12-09 10:23] LABS: BANDS 8 % (0-6); NEUTROPHIL # MANUAL DIFF 1.2 TH/MM3 (1.8-7.7); PLATELET ESTIMATE SMEAR RARE (NORMAL); PLATELET MORPHOLOGY NORMAL (NORMAL); POLYS (SEG NEUTROPHILS) 57 % (16-70); TOXIC GRANULATION 1+ (NORMAL); WBC DIFF SAMPLE 100
[2016-12-09 10:24] LABS: SCAN/DIFF FINAL DIFF MANUAL
--- NOTE | 2016-12-09 13:25 | PD.ONC.PN ---
Subjective Subjective Remarks Afebrile overnight Patient sitting up on side of bed in no distress She states she wants to go home Diarrhea improving Objective Data Date Time Temp Pulse Resp B/P Pulse Ox O2 Delivery O2 Flow Rate FiO2 12/09/16 07:50 98.4 93 20 118/73 95 12/09/16 04:00 98.0 104 18 134/93 96 12/09/16 00:00 99.1 102 18 133/68 93 12/08/16 20:00 98.8 96 18 134/83 93 12/08/16 16:00 98.8 94 18 137/76 94 Result Diagram: 12/09/16 0643 12/09/16 0643 Laboratory Results Laboratory Tests Test 12/09/16 12/09/16 06:43 11:26 White Blood Count 1.9 TH/MM3 Red Blood Count 2.58 MIL/MM3 Hemoglobin 7.7 GM/DL Hematocrit 21.1 % Mean Corpuscular Volume 81.7 FL Mean Corpuscular Hemoglobin 30.0 PG Mean Corpuscular Hemoglobin 36.7 % Concent Red Cell Distribution Width 13.4 % Platelet Count 12 TH/MM3 Mean Platelet Volume 7.9 FL Neutrophils (%) (Auto) % Lymphocytes (%) (Auto) % Monocytes (%) (Auto) % Eosinophils (%) (Auto) % Basophils (%) (Auto) % Neutrophils # (Auto) TH/MM3 Lymphocytes # (Auto) TH/MM3 Monocytes # (Auto) TH/MM3 Eosinophils # (Auto) TH/MM3 Basophils # (Auto) TH/MM3 CBC Comment AUTO DIFF Differential Total Cells 100 Counted Neutrophils % (Manual) 57 % Band Neutrophils % 8 % Lymphocytes % 19 % Monocytes % 16 % Neutrophils # (Manual) 1.2 TH/MM3 Differential Comment FINAL DIFF MANUAL Toxic Granulation 1+ Platelet Estimate RARE Platelet Morphology Comment NORMAL Sodium Level 138 MEQ/L Potassium Level 3.5 MEQ/L Chloride Level 99 MEQ/L Carbon Dioxide Level 30.9 MEQ/L Anion Gap 8 MEQ/L Blood Urea Nitrogen 6 MG/DL Creatinine 0.52 MG/DL Estimat Glomerular Filtration 121 ML/MIN Rate Random Glucose 121 MG/DL Calcium Level 9.1 MG/DL Blood Type A POSITIVE Antibody Screen NEGATIVE Crossmatch Leukocyte-Reduced Red Blood Cells Blood Bank Comment Culture Results Microbiology Date/Time Procedure Status Source Growth 12/07/16 13:19 Aerobic Blood Culture - Preliminary Resulted Blood Peripheral NO GROWTH IN 2 DAYS 12/07/16 13:19 Anaerobic Blood Culture - Preliminary Resulted Blood Peripheral NO GROWTH IN 2 DAYS Administered Medications Medications (Trade) Dose Ordered Sig/Zeynep Route PRN Reason Start Time Stop Time Status Last Admin Dose Admin Sodium Chloride (NS Flush) 2 ml BID IV FLUSH 11/28/16 21:00 12/08/16 20:39 Sodium Chloride (NS Flush) 2 ml UNSCH PRN IVF FLUSH AFTER USING IV ACCESS 11/28/16 20:00 11/30/16 06:33 Acetaminophen (Tylenol) 650 mg Q4H PRN PO FEVER>100.4 11/29/16 01:30 12/04/16 01:28 Carvedilol (Coreg) 3.125 mg DAILY PO 11/29/16 09:00 12/09/16 09:22 Patient Own Medication PT OWN MED: RYD... BID PO 11/29/16 21:00 12/09/16 09:23 Sodium Chloride (NS Flush) 5 ml UNSCH PRN IV FLUSH SEE PROTOCOL TABLE 11/30/16 06:45 12/07/16 04:51 Sodium Chloride (NS Flush) 5 ml UNSCH PRN IV FLUSH NEEDED 11/30/16 06:45 12/01/16 04:11 Hydrochlorothiazide (Hydrodiuril) 25 mg DAILY PO 12/01/16 09:00 12/09/16 09:22 Losartan Potassium (Cozaar) 100 mg DAILY PO 12/01/16 09:00 12/09/16 09:22 Valacyclovir HCl (Valtrex) 1,000 mg Q8HR PO 12/01/16 14:00 12/09/16 05:13 Multi-Ingredient Mouthwash/Gargle (Magic Mouthwash Adult Liq) 5 ml QID PRN PO sore throat 12/01/16 10:45 12/06/16 22:00 Oxycodone HCl (Roxicodone) 5 mg Q6H PRN PO pain 1-10 12/01/16 11:00 12/08/16 23:58 Prochlorperazine Maleate 10 mg 10 mg QID PRN PO nausea 12/01/16 14:45 12/08/16 20:38 Aztreonam 1000 mg/ Sodium Chloride 100 ml @ 200 mls/hr Q8H IV 12/02/16 13:00 12/09/16 05:13 Vancomycin HCl/ Sodium Chloride (Vancomycin Inj/ NS 250 ml Inj) 262.5 ml @ 250 mls/hr Q12H IV 12/02/16 21:00 12/09/16 09:22 Diphenhydramine HCl 25 mg 25 mg Q4H PRN IV PUSH pre-medicate or itching 12/02/16 12:30 12/04/16 12:23 Micafungin Sodium/ Sodium Chloride (Mycamine Inj/NS Inj) 100 ml @ 100 mls/hr Q24H IV 12/02/16 18:00 12/08/16 19:10 Amlodipine Besylate (Norvasc) 5 mg DAILY PO 12/03/16 09:00 12/09/16 09:22 Ondansetron HCl (Zofran Inj) 4 mg Q6H PRN IV PUSH NAUSEA OR VOMITING 12/03/16 13:15 12/09/16 09:25 Miscellaneous (Pill Splitter) 1 ea UNSCH PRN OTHER SEE LABEL COMMENTS 12/04/16 12:00 12/04/16 20:59 Vancomycin HCl (VANCOMYCIN for oral use only) 500 mg QID PO 12/04/16 21:00 12/09/16 09:22 Naphazoline HCl (Clear Eyes Redness Relief 0.012% Opth Soln) 1 drop QID PRN EACH EYE dry eyes 12/05/16 11:00 12/05/16 16:47 Objective Remarks GENERAL: Chronically ill-appearing female sitting up on side of bed in no acute distress SKIN: Warm and dry. HEAD: Normocephalic. EYES: No injection or drainage. MOUTH: Left lip lesion much improved NECK: Supple, trachea midline. CARDIOVASCULAR: Regular rate and rhythm RESPIRATORY: Clear posteriorly. Breathing unlabored. GASTROINTESTINAL: Abdomen soft, non-tender, nondistended. EXTREMITIES: No cyanosis. No edema NEUROLOGICAL: Patient moving all extremities. Normal speech. No obvious focal deficit. Assessment/Plan Problem List: (1) Neutropenic fever Status: Acute Plan: 12/09: Patient remains afebrile. She will likely be able to go home later this week if her counts continue to improve 12/08: d/c neutropenic precautions. continue abx per ID. 12/07: neutrophil count improved to 600 today. line culture came back negative. will have nurse re-access port if another line is needed. continue abx 12/04: having persistent nasal congestion. continue abx per ID. 9 episodes of diarrhea overnight d/t C. diff. continue supportive care. 12/03: ID following. d/w Dr. Haney patient's headache, congestion and abdominal pain. CT ab/pelvis shows no acute diverticulitis. C. diff positive 12/02: stop Cefepime,start Azactam. patient believes cefepime is causing her headache. will also add diflucan and consult infectious disease for recurrent fevers while on abx. 12/01: bc no growth. continue Vanco and Cefepime. add valtrex for mouth sore. patient has been receiving tylenol for headache which may have been masking fever. i have changed indication to fever only and will add roxicodone for headache. 11/30: spiked another fever last night. blood cultures showing no growth thus far. continue abx. will consult ID if spiking fevers persist. --on Vancomycin, Azactam, Flagyl, Valtrex, Micafungin --C. Diff positive --BC .: no growth --BC .: no growth/pending --BC, 7. no growth. --CXR: mild cardiomegaly --U/A--neg (2) Pancytopenia Status: Acute Plan: --due to chemotherapy --transfuse 2units pRBC for hgb less than 8 --transfuse 1 unit platelets for platelet count less than 15 (3) Acute myeloid leukemia Status: Acute Plan: --in remission, status post C1 consolidation with high-dose Zuleyka-C one week ago. --being evaluated at [facility] for [facility] --patient's home medication, Rydapt was resumed (4) Hypertension Status: Acute Plan: --on Losartan, Coreg, Amlodipine (5) Headache Status: Chronic Plan: -- Improved Assessment 56y/o with severe pancytopenia, neutropenic fever in a patient who has acute myeloid leukemia. h/o Acute myeloid leukemia, FLT3 positive. Anxiety disorder. COPD. Depression. Hypercholesterolemia. Hypertension. Attending Statement Patient is feeling better Able to walk in the room I encourage to walk in the hallway with the mask on Crunchy antibiotic Home by Wednesday The exam, history, and the medical decision-making described in the above note were completed with the assistance of the mid-level provider. I reviewed and agree with the findings presented. I attest that I had a [id number] encounter with the patient on the same day, and personally performed and documented my assessment and findings in the medical record. Problem Qualifiers (1) Headache: Qualified Code: G44.209 - Acute non intractable tension-type headache Amina Castellanos Dec 09, 2016 13:24 April Fonseca MD Dec 09, 2016 21:04
[2016-12-09] MEDS: diphenhydrAMINE HCL 50 MG/ML VIAL IV PUSH PRN ×2 (13:27→17:58)
[2016-12-09] MEDS: ACETAMINOPHEN 325 MG TAB PO PRN (17:58)
[2016-12-09] MEDS: MICAFUNGIN INJ 150 MG in SODIUM CHLORIDE 0.9% INJ 100 ML IV SCH (20:22)
[2016-12-09 21:09] LABS: MEAN CORPUSCULAR HGB CONC 36.4 % (32.0-36.0)
[2016-12-10] VITALS (8 sets, daily range): BP systolic 109–147; BP diastolic 58–93; PULSE 85–108; RESP 18–20; TEMP 97.7–100; O2SAT 91–98
[2016-12-10] MEDS: diphenhydrAMINE HCL 50 MG/ML VIAL IV PUSH PRN (03:32)
[2016-12-10] MEDS: valACYclovir HCL 500 MG TAB PO SCH ×3 (06:05→21:53)
[2016-12-10] MEDS: AZTREONAM INJ 1,000 MG in SODIUM CHLORIDE 0.9% INJ 100 ML IV SCH ×3 (06:06→21:53)
[2016-12-10] MEDS: ACYCLOVIR 5% CREAM 5 GM TUBE TOPICAL SCH ×5 (06:08→21:54)
[2016-12-10] MEDS: VANCOMYCIN INJ 1,250 MG in SODIUM CHLOR 0.9% 250 ML INJ 250 ML IV SCH (08:04)
[2016-12-10] MEDS: VANCOMYCIN 500 MG VIAL (FOR ORAL USE ONLY) PO SCH ×4 (08:04→21:53)
[2016-12-10] MEDS: SODIUM CHLORIDE 0.9% FLUSH 10 ML FLUSH IV FLUSH SCH ×2 (08:05→21:53)
[2016-12-10] MEDS: RYDAPT 25 MG PO SCH ×2 (08:05→21:54)
[2016-12-10] MEDS ORDERED: PHARMACY ORDERED LAB ONE (08:45)
[2016-12-10] MEDS: ONDANSETRON HCL 4 MG/2 ML VIAL IV PUSH PRN ×2 (08:54→17:20)
[2016-12-10] MEDS: LOSARTAN 50 MG TAB PO SCH (11:59)
[2016-12-10] MEDS: CARVEDILOL 3.125 MG TAB PO SCH (11:59)
[2016-12-10] MEDS: amLODIPine BESYLATE 5 MG TAB PO SCH (11:59)
[2016-12-10] MEDS: HYDROCHLOROTHIAZIDE 25 MG TAB PO SCH (11:59)
[2016-12-10 12:09] LABS: AUTOMATED NEUTROPHIL # 1.7 TH/MM3 (1.8-7.7); BASOPHIL % 0.2 % (0.0-2.0); HEMATOCRIT 31.4 % (35.0-46.0); LYMPHOCYTE # 0.4 TH/MM3 (1.0-4.8); MEAN CORPUSCULAR HEMOGLOBIN 30.2 PG (27.0-34.0); MONO % 26.6 % (0.0-8.0); NEUT % 59.2 % (16.0-70.0); PLATELET COUNT 37 TH/MM3 (150-450); RED BLOOD COUNT 3.78 MIL/MM3 (4.00-5.30); RED CELL DISTRIBUTION WIDTH 13.7 % (11.6-17.2); WHITE BLOOD COUNT 2.8 TH/MM3 (4.0-11.0)
[2016-12-10 12:13] LABS: HEMO FLAGS AUTO DIFF
[2016-12-10 13:04] LABS: TOXIC GRANULATION 1+ (NORMAL)
[2016-12-10 13:05] LABS: PLATELET ESTIMATE SMEAR LOW (NORMAL); PLATELET MORPHOLOGY NORMAL (NORMAL); SCAN/DIFF AUTO DIFF CONFIRMED
[2016-12-10 14:44] LABS: BICARBONATE 30.8 MEQ/L (21.0-32.0); POTASSIUM 3.4 MEQ/L (3.5-5.1)
[2016-12-10 14:45] LABS: VANCOMYCIN TROUGH 31.5 MCG/ML (5.0-10.0)
--- NOTE | 2016-12-10 16:03 | HHI.IDPN ---
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 She received induction chemotherapy with good response. Recently she was started on consolidation chemotherapy. She tolerated the procedure well, and she was seen in follow-up. At that time she was neutropenic and she was started on Levaquin. Patient also went to [facility] [place] for transplant evaluation. She was found to be suitable candidate. Her problems started about the day prior to admission when she started not feeling well. She has had generalized weakness, fatigue, and was having some dyspnea on exertion. On day of admission she had a fever, and was seen in the emergency room. Her white count was 0.2 and her platelet count was only 2000. Patient has been in the hospital since, and has been running some fevers. Patient has no COPD, and has a chronic dry cough which is no change. Her chest x-ray here have been normal. She developed some sores on her lip on the day she came in, and she had noticed a sore in her palate. Patient denies having any prior history of fever blister. She did have a similar sore in her palate when she had her first chemotherapy. She has not had any nausea or vomiting. Today she had 1 episode of diarrhea. She is voiding okay without any problem. She denies any back pain. She has not had any swallowing difficulty. She's had blood cultures done and they have all been negative. Chest x-ray were negative. She had a CT of the head and I was also negative. She had a headache last night and this morning. It is improving currently. Patient was initially on Vanco and cefepime, and so on Diflucan and Valtrex. Cefepime was stopped and she is now on Azactam. Notes reviewed Temps ok. Stools better, becoming more formed Port site feel better C/O pain on her PIV L forearm WBC up to 2.8 Antibiotics Vanco IV and PO Azactam Micafungin Flagyl Lines Port Past Medical History Acute myeloid leukemia Anxiety disorder. COPD. Depression. Hypercholesterolemia. Hypertension. Past Surgical History Cholecystectomy ?hysterectomy. [id number] placement Right foot surgery. Allergies: Coded Allergies: Latex (Verified Allergy, Severe, Rash, 08/15/16) Sulfa (Verified Adverse Reaction, Severe, Vomiting, cramps, 08/15/16) Objective . Vital Signs Date Time Temp Pulse Resp B/P Pulse Ox O2 Delivery O2 Flow Rate FiO2 12/10/16 11:29 97.7 108 20 147/91 94 12/10/16 07:50 98.1 86 20 113/58 91 12/10/16 06:15 98.1 85 18 109/75 94 12/10/16 03:50 99.2 91 18 117/66 97 12/10/16 03:26 98.4 101 18 135/71 96 12/10/16 00:00 97.8 104 18 120/93 98 12/09/16 17:25 100.4 12/09/16 17:10 99.9 100 20 150/86 99 12/09/16 16:48 97.5 84 20 114/69 95 12/09/16 16:38 97.5 84 20 114/69 95 12/09/16 12/09/16 12/10/16 14:59 22:59 06:59 Intake Total 640 ml 800 ml Balance 640 ml 800 ml Intake Oral 640 ml IV Total 475 ml Packed Cells 325 ml # Voids 3 # Bowel Movements 1 . Laboratory Tests Test 12/09/16 12/10/16 06:43 10:50 White Blood Count 1.9 TH/MM3 2.8 TH/MM3 Red Blood Count 2.58 MIL/MM3 3.78 MIL/MM3 Hemoglobin 7.7 GM/DL 11.4 GM/DL Hematocrit 21.1 % 31.4 % Mean Corpuscular Volume 81.7 FL 83.0 FL Mean Corpuscular Hemoglobin 30.0 PG 30.2 PG Mean Corpuscular Hemoglobin 36.7 % 36.4 % Concent Red Cell Distribution Width 13.4 % 13.7 % Platelet Count 12 TH/MM3 37 TH/MM3 Mean Platelet Volume 7.9 FL 8.5 FL Neutrophils (%) (Auto) % 59.2 % Lymphocytes (%) (Auto) % 14.0 % Monocytes (%) (Auto) % 26.6 % Eosinophils (%) (Auto) % 0.0 % Basophils (%) (Auto) % 0.2 % Neutrophils # (Auto) TH/MM3 1.7 TH/MM3 Lymphocytes # (Auto) TH/MM3 0.4 TH/MM3 Monocytes # (Auto) TH/MM3 0.7 TH/MM3 Eosinophils # (Auto) TH/MM3 0.0 TH/MM3 Basophils # (Auto) TH/MM3 0.0 TH/MM3 CBC Comment AUTO DIFF AUTO DIFF Differential Total Cells 100 Counted Neutrophils % (Manual) 57 % Band Neutrophils % 8 % Lymphocytes % 19 % Monocytes % 16 % Neutrophils # (Manual) 1.2 TH/MM3 Differential Comment FINAL DIFF AUTO DIFF MANUAL CONFIRMED Toxic Granulation 1+ 1+ Platelet Estimate RARE LOW Platelet Morphology Comment NORMAL NORMAL Laboratory Tests Test 12/09/16 12/10/16 06:43 10:50 Sodium Level 138 MEQ/L 138 MEQ/L Potassium Level 3.5 MEQ/L 3.4 MEQ/L Chloride Level 99 MEQ/L 99 MEQ/L Carbon Dioxide Level 30.9 MEQ/L 30.8 MEQ/L Anion Gap 8 MEQ/L 8 MEQ/L Blood Urea Nitrogen 6 MG/DL 9 MG/DL Creatinine 0.52 MG/DL 0.64 MG/DL Estimat Glomerular Filtration 121 ML/MIN 95 ML/MIN Rate Random Glucose 121 MG/DL 162 MG/DL Calcium Level 9.1 MG/DL 9.4 MG/DL Imaging Abdomen/Pelvis CT 12/03/16 0000 Signed Impressions: Service Date/Time: November 14:15 - CONCLUSION: 1. 6 and 4 mm noncalcified indeterminate pulmonary nodules within the right lung base. Follow-up CT of the chest in six months is recommended. 2. Enlarged fatty liver. 3. Few uncomplicated colonic diverticula. 4. 7.4 cm left renal cyst. 5. Degenerative changes and scoliosis of the thoracolumbar spine. Malcolm Coker MD Head CT 12/01/16 0000 Signed Impressions: Service Date/Time: Thursday, December 01, 2016 13:17 - CONCLUSION: Negative exam. Cristo Hughes MD Chest X-Ray 12/01/16 0000 Signed Impressions: Service Date/Time: Thursday, December 01, 2016 19:28 - CONCLUSION: Cardiomegaly. No consolidation. Barrera Turner MD Physical Exam GENERAL: Awake and alert, NAD SKIN: Warm and dry. No generalized rash HEAD: Atraumatic. Normocephalic. No temporal wasting, or tenderness. EYES: Ayr conjunctiva. No petechia or hemorrhage. . No scleral icterus. No injection or drainage. EARS, NOSE AND THROAT: Nose without bleeding or purulent nasal discharge. No sinus tenderness. Mucous membranes pink and moist. NECK: Trachea midline. Supple and not tender, no meningeal signs CARDIOVASCULAR: Regular rate and rhythm. No murmurs, rubs or gallops heard RESPIRATORY: Clear to auscultation. Breath sounds equal bilaterally. No rales , wheezing or rhonchi ABDOMEN: Soft, globular, nondistended. Bowel sounds present and normoactive. No guarding. No rebound. Scars compatible with surgery. EXTREMITIES: No clubbing, cyanosis, or edema. PIV L forearm red and tender, no drainage. No calf tenderness. Well perfused and warm. NEUROLOGICAL: Non-focal PSYCHIATRIC: Normal affect, calm and cooperative. 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
--- NOTE | 2016-12-10 17:54 | PD.ONC.PN ---
Subjective Subjective Remarks Patient sitting up in chair at bedside She is anxious to go home States overall she feels much better Objective Data Date Time Temp Pulse Resp B/P Pulse Ox O2 Delivery O2 Flow Rate FiO2 12/10/16 11:29 97.7 108 20 147/91 94 12/10/16 07:50 98.1 86 20 113/58 91 12/10/16 06:15 98.1 85 18 109/75 94 12/10/16 03:50 99.2 91 18 117/66 97 12/10/16 03:26 98.4 101 18 135/71 96 12/10/16 00:00 97.8 104 18 120/93 98 12/10/16 12/10/16 12/10/16 07:00 15:00 23:00 Intake Total 800 ml 400 ml Balance 800 ml 400 ml Result Diagram: 12/10/16 1050 12/10/16 1050 Laboratory Results Laboratory Tests Test 12/10/16 10:50 White Blood Count 2.8 TH/MM3 Red Blood Count 3.78 MIL/MM3 Hemoglobin 11.4 GM/DL Hematocrit 31.4 % Mean Corpuscular Volume 83.0 FL Mean Corpuscular Hemoglobin 30.2 PG Mean Corpuscular Hemoglobin 36.4 % Concent Red Cell Distribution Width 13.7 % Platelet Count 37 TH/MM3 Mean Platelet Volume 8.5 FL Neutrophils (%) (Auto) 59.2 % Lymphocytes (%) (Auto) 14.0 % Monocytes (%) (Auto) 26.6 % Eosinophils (%) (Auto) 0.0 % Basophils (%) (Auto) 0.2 % Neutrophils # (Auto) 1.7 TH/MM3 Lymphocytes # (Auto) 0.4 TH/MM3 Monocytes # (Auto) 0.7 TH/MM3 Eosinophils # (Auto) 0.0 TH/MM3 Basophils # (Auto) 0.0 TH/MM3 CBC Comment AUTO DIFF Differential Comment AUTO DIFF CONFIRMED Toxic Granulation 1+ Platelet Estimate LOW Platelet Morphology Comment NORMAL Sodium Level 138 MEQ/L Potassium Level 3.4 MEQ/L Chloride Level 99 MEQ/L Carbon Dioxide Level 30.8 MEQ/L Anion Gap 8 MEQ/L Blood Urea Nitrogen 9 MG/DL Creatinine 0.64 MG/DL Estimat Glomerular Filtration 95 ML/MIN Rate Random Glucose 162 MG/DL Calcium Level 9.4 MG/DL Vancomycin Level Trough 31.5 MCG/ML Administered Medications Medications (Trade) Dose Ordered Sig/Zeynep Route PRN Reason Start Time Stop Time Status Last Admin Dose Admin Sodium Chloride (NS Flush) 2 ml BID IV FLUSH 11/28/16 21:00 12/10/16 08:05 Sodium Chloride (NS Flush) 2 ml UNSCH PRN IVF FLUSH AFTER USING IV ACCESS 11/28/16 20:00 11/30/16 06:33 Acetaminophen (Tylenol) 650 mg Q4H PRN PO FEVER>100.4 11/29/16 01:30 12/09/16 17:58 Carvedilol (Coreg) 3.125 mg DAILY PO 11/29/16 09:00 12/10/16 11:59 Patient Own Medication PT OWN MED: RYD... BID PO 11/29/16 21:00 12/10/16 08:05 Sodium Chloride (NS Flush) 5 ml UNSCH PRN IV FLUSH SEE PROTOCOL TABLE 11/30/16 06:45 12/07/16 04:51 Sodium Chloride (NS Flush) 5 ml UNSCH PRN IV FLUSH NEEDED 11/30/16 06:45 12/01/16 04:11 Hydrochlorothiazide (Hydrodiuril) 25 mg DAILY PO 12/01/16 09:00 12/10/16 11:59 Losartan Potassium (Cozaar) 100 mg DAILY PO 12/01/16 09:00 12/10/16 11:59 Valacyclovir HCl (Valtrex) 1,000 mg Q8HR PO 12/01/16 14:00 12/10/16 13:00 Multi-Ingredient Mouthwash/Gargle (Magic Mouthwash Adult Liq) 5 ml QID PRN PO sore throat 12/01/16 10:45 12/06/16 22:00 Oxycodone HCl (Roxicodone) 5 mg Q6H PRN PO pain 1-10 12/01/16 11:00 12/09/16 23:52 Prochlorperazine Maleate 10 mg 10 mg QID PRN PO nausea 12/01/16 14:45 12/08/16 20:38 Aztreonam/Sodium Chloride (Azactam Inj/NS Inj) 100 ml @ 200 mls/hr Q8H IV 12/02/16 13:00 12/10/16 13:00 Diphenhydramine HCl (Benadryl Inj) 25 mg Q4H PRN IV PUSH pre-medicate or itching 12/02/16 12:30 12/10/16 03:32 Amlodipine Besylate (Norvasc) 5 mg DAILY PO 12/03/16 09:00 12/10/16 11:59 Ondansetron HCl (Zofran Inj) 4 mg Q6H PRN IV PUSH NAUSEA OR VOMITING 12/03/16 13:15 12/10/16 17:20 Miscellaneous (Pill Splitter) 1 ea UNSCH PRN OTHER SEE LABEL COMMENTS 12/04/16 12:00 12/04/16 20:59 Vancomycin HCl (VANCOMYCIN for oral use only) 500 mg QID PO 12/04/16 21:00 12/10/16 16:56 Naphazoline HCl 1 drop 1 drop QID PRN EACH EYE dry eyes 12/05/16 11:00 12/05/16 16:47 Micafungin Sodium/ Sodium Chloride (Mycamine Inj/NS Inj) 100 ml @ 100 mls/hr Q24H IV 12/09/16 20:00 12/09/16 20:22 Objective Remarks GENERAL: Older female sitting up in chair at bedside in no distress SKIN: Warm and dry. HEAD: Normocephalic. + Alopecia EYES: No injection or drainage. NECK: Supple, trachea midline. CARDIOVASCULAR: Regular rate and rhythm RESPIRATORY: Clear posteriorly. Breathing unlabored. GASTROINTESTINAL: Abdomen soft, non-tender, nondistended. EXTREMITIES: No cyanosis. No edema NEUROLOGICAL: Patient moving all extremities. Normal speech. No obvious focal deficit. Assessment/Plan Problem List: (1) Neutropenic fever Status: Acute Plan: 12/10: Counts recovering nicely. She will likely be discharged tomorrow. CBC in a.m. 12/09: Patient remains afebrile. She will likely be able to go home later this week if her counts continue to improve 12/08: d/c neutropenic precautions. continue abx per ID. 12/07: neutrophil count improved to 600 today. line culture came back negative. will have nurse re-access port if another line is needed. continue abx 12/04: having persistent nasal congestion. continue abx per ID. 9 episodes of diarrhea overnight d/t C. diff. continue supportive care. 12/03: ID following. d/w Dr. Haney patient's headache, congestion and abdominal pain. CT ab/pelvis shows no acute diverticulitis. C. diff positive 12/02: stop Cefepime,start Azactam. patient believes cefepime is causing her headache. will also add diflucan and consult infectious disease for recurrent fevers while on abx. 12/01: bc no growth. continue Vanco and Cefepime. add valtrex for mouth sore. patient has been receiving tylenol for headache which may have been masking fever. i have changed indication to fever only and will add roxicodone for headache. 11/30: spiked another fever last night. blood cultures showing no growth thus far. continue abx. will consult ID if spiking fevers persist. --BC 12.03: no growth --BC : no growth/pending --BC, 11.28 no growth. --CXR: mild cardiomegaly --U/A--neg (2) Pancytopenia Status: Acute Plan: --due to chemotherapy --transfuse 2units pRBC for hgb less than 8 --transfuse 1 unit platelets for platelet count less than 15 (3) Acute myeloid leukemia Status: Acute Plan: --in remission, status post C1 consolidation with high-dose Zuleyka-C one week ago. --being evaluated at [facility] for transplant --patient's home medication, Rydapt was resumed (4) Hypertension Status: Acute Plan: --on Losartan, Coreg, Amlodipine (5) Headache Status: Chronic Plan: -- Improved Assessment 56y/o with severe pancytopenia, neutropenic fever in a patient who has acute myeloid leukemia. h/o Acute myeloid leukemia, FLT3 positive. Anxiety disorder. COPD. Depression. Hypercholesterolemia. Hypertension. Attending Statement Patient feels better Ambulating Blood counts are improving Home tomorrow If remains stable Problem Qualifiers (1) Headache: Qualified Code: G44.209 - Acute non intractable tension-type headache Amina Castellanos Dec 10, 2016 17:54 April Fonseca MD Dec 10, 2016 21:31
[2016-12-10] MEDS: MICAFUNGIN INJ 150 MG in SODIUM CHLORIDE 0.9% INJ 100 ML IV SCH (19:56)
[2016-12-10] MEDS ORDERED: VANCOMYCIN 1,500 MG/NS 500 ML IV SCH ×2 (21:00)
[2016-12-10] MEDS: NYSTAT/DIPHENHY/LIDO MOUTHWASH (Adult) 120ML PO PRN (21:59)
[2016-12-11] VITALS: BP 117/65; PULSE 103; RESP 18; TEMP 99.4; O2SAT 94
[2016-12-11 04:00] VITALS: BP 142/80; PULSE 97; RESP 17; TEMP 97.8; O2SAT 96
[2016-12-11] MEDS: AZTREONAM INJ 1,000 MG in SODIUM CHLORIDE 0.9% INJ 100 ML IV SCH (05:23)
[2016-12-11] MEDS: valACYclovir HCL 500 MG TAB PO SCH ×2 (05:23→13:53)
[2016-12-11] MEDS: ACYCLOVIR 5% CREAM 5 GM TUBE TOPICAL SCH ×3 (05:26→13:56)
[2016-12-11 06:23] LABS: AUTOMATED NEUTROPHIL # 1.7 TH/MM3 (1.8-7.7); BASOPHIL % 0.2 % (0.0-2.0); HEMATOCRIT 30.8 % (35.0-46.0); LYMPH % 16.3 % (9.0-44.0); LYMPHOCYTE # 0.5 TH/MM3 (1.0-4.8); MEAN CELL VOLUME 84.2 FL (80.0-100.0); MEAN CORPUSCULAR HEMOGLOBIN 29.4 PG (27.0-34.0); MEAN CORPUSCULAR HGB CONC 34.9 % (32.0-36.0); MONO % 23.2 % (0.0-8.0); NEUT % 60.3 % (16.0-70.0); PLATELET COUNT 32 TH/MM3 (150-450); RED BLOOD COUNT 3.66 MIL/MM3 (4.00-5.30); RED CELL DISTRIBUTION WIDTH 13.5 % (11.6-17.2); WHITE BLOOD COUNT 2.9 TH/MM3 (4.0-11.0)
[2016-12-11 06:26] LABS: HEMO FLAGS AUTO DIFF
[2016-12-11 06:43] LABS: BICARBONATE 32.3 MEQ/L (21.0-32.0); POTASSIUM 3.2 MEQ/L (3.5-5.1)
[2016-12-11 07:12] LABS: TOXIC GRANULATION 1+ (NORMAL)
[2016-12-11 07:13] LABS: PLATELET ESTIMATE SMEAR LOW (NORMAL); PLATELET MORPHOLOGY NORMAL (NORMAL); SCAN/DIFF AUTO DIFF CONFIRMED
[2016-12-11 08:00] VITALS: BP 121/80; PULSE 100; RESP 18; TEMP 97.6; O2SAT 97
[2016-12-11] MEDS ORDERED: POTASSIUM CHLORIDE 10 MEQ CONTROLLED RELEASE TAB PO ONE (09:00)
[2016-12-11] MEDS: HYDROCHLOROTHIAZIDE 25 MG TAB PO SCH (09:55)
[2016-12-11] MEDS: CARVEDILOL 3.125 MG TAB PO SCH (09:55)
[2016-12-11] MEDS: amLODIPine BESYLATE 5 MG TAB PO SCH (09:55)
[2016-12-11] MEDS: VANCOMYCIN 500 MG VIAL (FOR ORAL USE ONLY) PO SCH ×2 (09:55→13:53)
[2016-12-11] MEDS: SODIUM CHLORIDE 0.9% FLUSH 10 ML FLUSH IV FLUSH SCH (09:56)
[2016-12-11] MEDS: RYDAPT 25 MG PO SCH (10:01)
[2016-12-11] MEDS: ONDANSETRON HCL 4 MG/2 ML VIAL IV PUSH PRN (10:02)
[2016-12-11] MEDS ORDERED: VANC1CAP7 PO (11:00)
--- NOTE | 2016-12-11 11:00 | HHI.DCPOC ---
Discharge Care Plan Diagnosis: (1) Acute myeloid leukemia (2) Neutropenic fever Goals to Promote Your Health * To prevent worsening of your condition and complications * To maintain your health at the optimal level Directions to Meet Your Goals Take your medications as prescribed Follow your dietary instruction Follow activity as directed Keep your appointments as scheduled Take your immunizations and boosters as scheduled If your symptoms worsen call your PCP, if no PCP go to Urgent Care Center or Emergency Room Smoking is Dangerous to Your Health. Avoid second hand smoke Call the 24-hour hour crisis hotline for domestic abuse at Julianna Mcdaniel Dec 11, 2016 11:00
--- NOTE | 2016-12-11 11:08 | HHI.DS ---
Discharge Summary Admission Date Nov 28, 2016 at 19:59 Discharge Date: Dec 11, 2016 Admitting Diagnosis pancytopenia/neutropenia w/ chemo; SIRS (1) Neutropenic fever Diagnosis: Principal (2) Acute myeloid leukemia Diagnosis: Principal Brief History Ms. Arroyo is a 56 y/o female with AML in remission. She recently completed her first consolidation therapy with [facility]. She is admitted for neutropenic fever. CBC/BMP: 12/11/16 0510 12/11/16 0510 Significant Findings Laboratory Tests Test 12/08/16 12/08/16 12/09/16 12/10/16 12:32 12:33 06:43 10:50 Random Glucose 154 MG/DL 121 MG/DL 162 MG/DL (74-106) (74-106) (74-106) Total Bilirubin 1.1 MG/DL (0.2-1.0) Indirect Bilirubin 0.9 MG/DL (0.0-0.8) Aspartate Amino Transf 12 U/L (15-37) (AST/SGOT) Albumin 2.8 GM/DL (3.4-5.0) White Blood Count 1.6 TH/MM3 1.9 TH/MM3 2.8 TH/MM3 (4.0-11.0) (4.0-11.0) (4.0-11.0) Red Blood Count 2.72 MIL/MM3 2.58 MIL/MM3 3.78 MIL/MM3 (4.00-5.30) (4.00-5.30) (4.00-5.30) Hemoglobin 8.2 GM/DL 7.7 GM/DL 11.4 GM/DL (11.6-15.3) (11.6-15.3) (11.6-15.3) Hematocrit 22.5 % 21.1 % 31.4 % (35.0-46.0) (35.0-46.0) (35.0-46.0) Mean Corpuscular Hemoglobin 36.5 % 36.7 % 36.4 % Concent (32.0-36.0) (32.0-36.0) (32.0-36.0) Platelet Count 14 TH/MM3 12 TH/MM3 37 TH/MM3 (150-450) (150-450) (150-450) Monocytes (%) (Auto) 32.3 % 26.6 % (0.0-8.0) (0.0-8.0) Neutrophils # (Auto) 0.8 TH/MM3 1.7 TH/MM3 (1.8-7.7) (1.8-7.7) Lymphocytes # (Auto) 0.2 TH/MM3 0.4 TH/MM3 (1.0-4.8) (1.0-4.8) Monocytes % 21 % (0-8) 16 % (0-8) Neutrophils # (Manual) 1.0 TH/MM3 1.2 TH/MM3 (1.8-7.7) (1.8-7.7) Platelet Estimate LOW (NORMAL) RARE (NORMAL) LOW (NORMAL) Band Neutrophils % 8 % (0-6) Toxic Granulation 1+ (NORMAL) 1+ (NORMAL) Blood Urea Nitrogen 6 MG/DL (7-18) Potassium Level 3.4 MEQ/L (3.5-5.1) Vancomycin Level Trough 31.5 MCG/ML (5.0-10.0) Test 12/11/16 05:10 White Blood Count 2.9 TH/MM3 (4.0-11.0) Red Blood Count 3.66 MIL/MM3 (4.00-5.30) Hemoglobin 10.7 GM/DL (11.6-15.3) Hematocrit 30.8 % (35.0-46.0) Platelet Count 32 TH/MM3 (150-450) Monocytes (%) (Auto) 23.2 % (0.0-8.0) Neutrophils # (Auto) 1.7 TH/MM3 (1.8-7.7) Lymphocytes # (Auto) 0.5 TH/MM3 (1.0-4.8) Toxic Granulation 1+ (NORMAL) Platelet Estimate LOW (NORMAL) Potassium Level 3.2 MEQ/L (3.5-5.1) Carbon Dioxide Level 32.3 MEQ/L (21.0-32.0) Imaging Last Impressions Abdomen/Pelvis CT 12/03/16 0000 Signed Impressions: Service Date/Time: November 14:15 - CONCLUSION: 1. 6 and 4 mm noncalcified indeterminate pulmonary nodules within the right lung base. Follow-up CT of the chest in six months is recommended. 2. Enlarged fatty liver. 3. Few uncomplicated colonic diverticula. 4. 7.4 cm left renal cyst. 5. Degenerative changes and scoliosis of the thoracolumbar spine. Malcolm Coker MD Head CT 12/01/16 0000 Signed Impressions: Service Date/Time: Thursday, December 01, 2016 13:17 - CONCLUSION: Negative exam. Cristo Hughes MD Chest X-Ray 12/01/16 0000 Signed Impressions: Service Date/Time: Thursday, December 01, 2016 19:28 - CONCLUSION: Cardiomegaly. No consolidation. Barrera Turner MD PE at Discharge please see physical exam from progress note on date of discharge Hospital Course Ms. Arroyo was admitted on 11/28/16 after presenting to the ED with fever, cough and neutropenia. Blood cultures were obtained, routine chest x-ray and urinalysis were also obtained and the patient was started on broad-spectrum antibiotics. The patient's home medications were resumed. The patient's blood cultures returned with no growth. On 12/02 infectious disease was consulted as the patient was continuing to spike fevers while on antibiotics. During the course of her hospitalization Ms. Arroyo received irradiated pRBC and platelets. On 12/09/16 Ms. Arroyo's neutrophil counts recovered to greater than 1K. She is being discharged in good condition with instructions for follow up in clinic next week. Pt Condition on Discharge: Good Discharge Disposition: Discharge Home Discharge Instructions DIET: Follow Instructions for: As Tolerated, No Restrictions Activities you can perform: Regular-No Restrictions Julianna Mcdaniel Dec 11, 2016 11:08
[2016-12-11 12:00] VITALS: BP 127/85; PULSE 89; RESP 16; TEMP 98.7; O2SAT 95
--- NOTE | 2016-12-11 12:05 | PD.ONC.PN ---
Subjective Subjective Remarks Tmax 100F. Patient resting in bed in nad. Eager to go home. Objective Data Date Time Temp Pulse Resp B/P Pulse Ox O2 Delivery O2 Flow Rate FiO2 12/11/16 08:00 97.6 100 18 121/80 97 12/11/16 04:00 97.8 97 17 142/80 96 12/11/16 00:00 99.4 103 18 117/65 94 12/10/16 20:00 100.0 101 18 125/66 96 12/10/16 15:00 99.3 98 20 133/87 94 Result Diagram: 12/11/16 0510 12/11/16 0510 Laboratory Results Laboratory Tests Test 12/11/16 05:10 White Blood Count 2.9 TH/MM3 Red Blood Count 3.66 MIL/MM3 Hemoglobin 10.7 GM/DL Hematocrit 30.8 % Mean Corpuscular Volume 84.2 FL Mean Corpuscular Hemoglobin 29.4 PG Mean Corpuscular Hemoglobin 34.9 % Concent Red Cell Distribution Width 13.5 % Platelet Count 32 TH/MM3 Mean Platelet Volume 7.6 FL Neutrophils (%) (Auto) 60.3 % Lymphocytes (%) (Auto) 16.3 % Monocytes (%) (Auto) 23.2 % Eosinophils (%) (Auto) 0.0 % Basophils (%) (Auto) 0.2 % Neutrophils # (Auto) 1.7 TH/MM3 Lymphocytes # (Auto) 0.5 TH/MM3 Monocytes # (Auto) 0.7 TH/MM3 Eosinophils # (Auto) 0.0 TH/MM3 Basophils # (Auto) 0.0 TH/MM3 CBC Comment AUTO DIFF Differential Comment AUTO DIFF CONFIRMED Toxic Granulation 1+ Platelet Estimate LOW Platelet Morphology Comment NORMAL Red Cell Morphology Comment NORMAL Sodium Level 139 MEQ/L Potassium Level 3.2 MEQ/L Chloride Level 98 MEQ/L Carbon Dioxide Level 32.3 MEQ/L Anion Gap 9 MEQ/L Blood Urea Nitrogen 7 MG/DL Creatinine 0.58 MG/DL Estimat Glomerular Filtration 107 ML/MIN Rate Random Glucose 106 MG/DL Calcium Level 9.3 MG/DL Administered Medications Medications (Trade) Dose Ordered Sig/Zeynep Route PRN Reason Start Time Stop Time Status Last Admin Dose Admin Sodium Chloride (NS Flush) 2 ml BID IV FLUSH 11/28/16 21:00 12/11/16 09:56 Sodium Chloride (NS Flush) 2 ml UNSCH PRN IVF FLUSH AFTER USING IV ACCESS 11/28/16 20:00 11/30/16 06:33 Acetaminophen (Tylenol) 650 mg Q4H PRN PO FEVER>100.4 11/29/16 01:30 12/09/16 17:58 Carvedilol (Coreg) 3.125 mg DAILY PO 11/29/16 09:00 12/11/16 09:55 Patient Own Medication PT OWN MED: RYD... BID PO 11/29/16 21:00 12/10/16 08:05 Sodium Chloride (NS Flush) 5 ml UNSCH PRN IV FLUSH SEE PROTOCOL TABLE 11/30/16 06:45 12/07/16 04:51 Sodium Chloride (NS Flush) 5 ml UNSCH PRN IV FLUSH NEEDED 11/30/16 06:45 12/01/16 04:11 Hydrochlorothiazide (Hydrodiuril) 25 mg DAILY PO 12/01/16 09:00 12/11/16 09:55 Losartan Potassium (Cozaar) 100 mg DAILY PO 12/01/16 09:00 12/10/16 11:59 Valacyclovir HCl (Valtrex) 1,000 mg Q8HR PO 12/01/16 14:00 12/11/16 05:23 Multi-Ingredient Mouthwash/Gargle (Magic Mouthwash Adult Liq) 5 ml QID PRN PO sore throat 12/01/16 10:45 12/10/16 21:59 Oxycodone HCl (Roxicodone) 5 mg Q6H PRN PO pain 1-10 12/01/16 11:00 12/11/16 00:14 Prochlorperazine Maleate (Compazine) 10 mg QID PRN PO nausea 12/01/16 14:45 12/08/16 20:38 Diphenhydramine HCl (Benadryl Inj) 25 mg Q4H PRN IV PUSH pre-medicate or itching 12/02/16 12:30 12/10/16 03:32 Amlodipine Besylate (Norvasc) 5 mg DAILY PO 12/03/16 09:00 12/11/16 09:55 Ondansetron HCl (Zofran Inj) 4 mg Q6H PRN IV PUSH NAUSEA OR VOMITING 12/03/16 13:15 12/11/16 10:02 Miscellaneous (Pill Splitter) 1 ea UNSCH PRN OTHER SEE LABEL COMMENTS 12/04/16 12:00 12/04/16 20:59 Vancomycin HCl (VANCOMYCIN for oral use only) 500 mg QID PO 12/04/16 21:00 12/11/16 09:55 Naphazoline HCl (Clear Eyes Redness Relief 0.012% Opth Soln) 1 drop QID PRN EACH EYE dry eyes 12/05/16 11:00 12/05/16 16:47 Objective Remarks GENERAL: pleasant female upright in bed in nad. SKIN: Warm and dry. HEAD: Normocephalic. EYES: No injection or drainage. NECK: Supple, trachea midline. CARDIOVASCULAR: Regular rate and rhythm RESPIRATORY: Breath sounds equal bilaterally. No accessory muscle use. GASTROINTESTINAL: Abdomen soft, non-tender, nondistended. EXTREMITIES: No cyanosis NEUROLOGICAL: awake and alert, normal speech. moving all extremities. Assessment/Plan Problem List: (1) Neutropenic fever Status: Acute Plan: 12/11: WBC improved. will d/c today. advised to present to clinic Wednesday and Wednesday for CBC. has appointment with MD on 12.18: Counts recovering nicely. She will likely be discharged tomorrow. CBC in a.m. 12/09: Patient remains afebrile. She will likely be able to go home later this week if her counts continue to improve 12/08: d/c neutropenic precautions. continue abx per ID. 12/07: neutrophil count improved to 600 today. line culture came back negative. will have nurse re-access port if another line is needed. continue abx 12/04: having persistent nasal congestion. continue abx per ID. 9 episodes of diarrhea overnight d/t C. diff. continue supportive care. 12/03: ID following. d/w Dr. Haney patient's headache, congestion and abdominal pain. CT ab/pelvis shows no acute diverticulitis. C. diff positive 12/02: stop Cefepime,start Azactam. patient believes cefepime is causing her headache. will also add diflucan and consult infectious disease for recurrent fevers while on abx. 12/01: bc no growth. continue Vanco and Cefepime. add valtrex for mouth sore. patient has been receiving tylenol for headache which may have been masking fever. i have changed indication to fever only and will add roxicodone for headache. 11/30: spiked another fever last night. blood cultures showing no growth thus far. continue abx. will consult ID if spiking fevers persist. --BC 7.: no growth --BC 7.: no growth/pending --BC, 7. no growth. --CXR: mild cardiomegaly --U/A--neg (2) Pancytopenia Status: Acute Plan: --due to chemotherapy --transfuse 2units pRBC for hgb less than 8 --transfuse 1 unit platelets for platelet count less than 15 (3) Acute myeloid leukemia Status: Acute Plan: --in remission, status post C1 consolidation with high-dose Zuleyka-C one week ago. --being evaluated at [facility] for transplant --patient's home medication, Rydapt was resumed (4) Hypertension Status: Acute Plan: --on Losartan, Coreg, Amlodipine, HCTZ Assessment 56y/o with severe pancytopenia, neutropenic fever in a patient who has acute myeloid leukemia. h/o Acute myeloid leukemia, FLT3 positive. Anxiety disorder. COPD. Depression. Hypercholesterolemia. Hypertension. Attending Statement feels better stable no tx d/c home fu next week Julianna Mcdaniel Dec 11, 2016 12:05 April Fonseca MD Dec 11, 2016 16:03
[2016-12-11] MEDS: PROCHLORPERAZINE MALEATE 10 MG TAB PO PRN (13:53)
== END 2016-12-11 15:39 | disposition home or self-care (01) | DRG 809 ==
LOC: NEPC 18:25 → NEDA 19:59 → HOCA 22:22
PROVIDERS: ADMIT Internal Medicine Hematology & Oncology; ATTEND Internal Medicine Hematology & Oncology
PROC: 30233N1 Transfusion of Nonautologous Red Blood Cells into Peripheral Vein, Percutaneous Approach (ICD-10-PCS; principal; 2016-11-28)
PROC: 6A551Z2 Pheresis of Platelets, Multiple (ICD-10-PCS; 2016-11-28)
DX: D70.1 Agranulocytosis secondary to cancer chemotherapy (principal); Z94.81 Bone marrow transplant status; B00.9 Herpesviral infection, unspecified; A04.7 Enterocolitis due to Clostridium difficile; C92.01 Acute myeloblastic leukemia, in remission; I11.9 Hypertensive heart disease without heart failure; T45.1X5A Adverse effect of antineoplastic and immunosuppressive drugs, initial encounter; F41.9 Anxiety disorder, unspecified; M06.9 Rheumatoid arthritis, unspecified; J44.9 Chronic obstructive pulmonary disease, unspecified; I51.7 Cardiomegaly; G47.30 Sleep apnea, unspecified; Z85.41 Personal history of malignant neoplasm of cervix uteri; I45.10 Unspecified right bundle-branch block; R50.81 Fever presenting with conditions classified elsewhere; E78.00 Pure hypercholesterolemia, unspecified; F32.9 Major depressive disorder, single episode, unspecified; Z87.891 Personal history of nicotine dependence; Z82.3 Family history of stroke; G44.209 Tension-type headache, unspecified, not intractable; T80.92XA Unspecified transfusion reaction, initial encounter; Y84.8 Other medical procedures as the cause of abnormal reaction of the patient, or of later complication, without mention of misadventure at the time of the procedure; R09.81 Nasal congestion
CPT/HCPCS: 36430; 70450; 71010; 71020; 74177; 76937; 80048; 80053; 80076; 80202; 81001; 83010; 83605; 83615; 83690; 85007; 85025; 85027; 85384; 85610; 85730; 86078; 86850; 86880; 86900; 86901; 86920; 87040; 87070; 87205; 87493; 87641; 93005; J0692; J1200; J1450; J1940; J2248; J2405; J3370; J3480; J7030; J7040; J7050; P9037; P9040; Q0164; Q9967

== ENCOUNTER 2017-04-18 15:52 | Inpatient (IN) | payer OTHER, MEDICARE ==
[~2017-04-18] VITALS: Ht 154.9 cm; Wt 90.0 kg
[~2017-04-18 15:52] MED LIST changes: +AMLO5 PO; +LEVO500T8 PO; +PROC5INJ PO; +VANC1CAP7 PO; +[UNRECOGNIZED DRUG - OTHER] PO
[2017-04-18 16:02] VITALS: BP 185/114; PULSE 106; RESP 19; TEMP 99.3; O2SAT 100
[2017-04-18 16:08] VITALS: BP 185/114; PULSE 106; RESP 19; TEMP 99.9; O2SAT 100
[2017-04-18] MEDS ORDERED: ZOFR4TAB PO (16:13)
--- NOTE | 2017-04-18 16:23 | PD ---
HPI . Fever, neutropenic Chief Complaint: Fever Time Seen by Provider: 16:02 Travel History International Travel<30 days: No Contact w/Intl Traveler<30days: No Traveled to known affect area: No History of Present Illness HPI 56-year-old female presents emergency department via EMS for evaluation of a fever that initially started today. Her fever was 101.3 per EMS. PIV and and is bolus given prior to arrival. Upon arrival her fever had decreased to 99.9. Patient has leukemia that she was initially diagnosed with last August. She is currently on chemotherapy treatments. Her last IV chemotherapy treatment was last week. She is now on oral chemotherapy. Patient has a history of COPD and is stating she is short of breath associated with activity. She denies chest pain, abdominal pain, nausea, vomiting, diarrhea, lightheadedness. PFSH Past Medical History Hx Anticoagulant Therapy: No Anemia: Yes Arthritis: Yes (RA) Asthma: Yes Autoimmune Disease: Yes Anxiety: Yes Depression: No Heart Rhythm Problems: No Cancer: Yes Cardiac Catheterization: Yes (2016) Cardiovascular Problems: Yes High Cholesterol: Yes Chemotherapy: Yes Chest Pain: Yes Congestive Heart Failure: No COPD: Yes Coronary Artery Disease: Yes Diabetes: No Diminished Hearing: No Endocrine: No Gastrointestinal Disorders: Yes GERD: Yes Genitourinary: Yes Hypertension: Yes Immune Disorder: Yes (LUPUS /RA) Implanted Vascular Access Dvce: Yes Neurologic: No Psychiatric: Yes Respiratory: Yes Immunizations Current: Yes Pneumonia: Yes Seizures: No Sickle Cell Disease: No Sleep Apnea: Yes Thyroid Disease: No Influenza Vaccination: No Menopausal: Yes : 2 Para: 2 Dilation and Curettage (D&C): Yes Tubal Ligation: Yes Past Surgical History Section: Yes (X's 2) Cholecystectomy: Yes Eye Surgery: Yes (BILATERAL LASIK: 2016) Gynecologic Surgery: Yes (CERVICAL CA) Hysterectomy: Yes (Partial) Oral Surgery: Yes (NASAL SURGERY) Tonsillectomy: Yes Other Surgery: Yes (CYST ON NECK) Social History Alcohol Use: Yes (OCC) Tobacco Use: No (QUIT: 2005) Substance Use: No Allergies-Medications (Allergen,Severity, Reaction): Coded Allergies: cefepime (Verified Allergy, Severe, HIVES, 04/18/17) latex (Unverified Allergy, Severe, Rash, 04/18/17) Sulfa (Sulfonamide Antibiotics) (Unverified Adverse Reaction, Severe, Vomiting, cramps, 04/18/17) Reported Meds & Prescriptions Reported Meds & Active Scripts Active Vancocin (Vancomycin HCl) 250 Mg Cap 250 Mg PO QID 10 Days Norvasc (Amlodipine Besylate) 5 Mg Tab 5 Mg PO DAILY Reported Zofran (Ondansetron HCl) 4 Mg Tab 4 Mg PO Q6HR PRN Prochlorperazine Edisylate 5 Mg/1 Ml Vial 5 Mg PO PRN [Rydapt] 50 Mg PO BID Levofloxacin 500 Mg Tablet 500 Mg PO DAILY Prednisone 2.5 Mg Tab 2.5 Mg PO BID Losartan-Hydrochlorothiazide 100-25 Mg Tab 1 Tab PO DAILY Carvedilol 12.5 Mg Tab 3.125 Mg PO DAILY Review of Systems Except as stated in HPI: all other systems reviewed are Neg Physical Exam Narrative GENERAL: 56-year-old female patient that appears older than stated age wearing mask. No acute distress noted. SKIN: Focused skin assessment warm/dry. HEAD: Normocephalic. Atraumatic. EYES: No scleral icterus. No injection or drainage. MOUTH: Mucous membranes moist, very small lesion noted to the right lateral aspect of the mouth of the lower gums, tongue appears normal. NECK: Supple, trachea midline. No JVD or lymphadenopathy. CARDIOVASCULAR: Regular rate and rhythm, murmur appreciated. No gallops or rubs noted. RESPIRATORY: Breath sounds equal bilaterally. No accessory muscle use. GASTROINTESTINAL: Abdomen soft, non-tender, nondistended. MUSCULOSKELETAL: No cyanosis, or edema. BACK: Nontender without obvious deformity. No CVA tenderness. Data Data Last Documented VS Vital Signs Date Time Temp Pulse Resp B/P (MAP) Pulse Ox O2 Delivery O2 Flow Rate FiO2 04/18/17 17:23 103 21 161/89 (113) 97 Room Air 04/18/17 16:08 99.9 2.00 Orders Orders Electrocardiogram (04/18/17 16:14) Complete Blood Count With Diff (04/18/17 16:14) Comprehensive Metabolic Panel (04/18/17 16:14) Prothrombin Time / Inr (Pt) (04/18/17 16:14) Act Partial Throm Time (Ptt) (04/18/17 16:14) Lactic Acid Sepsis Protocol (04/18/17 16:14) Magnesium (Mg) (04/18/17 16:14) Ckmb (Isoenzyme) Profile (04/18/17 16:14) Troponin I (04/18/17 16:14) Urinalysis - C+S If Indicated (04/18/17 16:14) Influenzae A/B Antigen (04/18/17 16:14) Blood Culture (04/18/17 16:14) Chest, Single Ap (04/18/17 16:14) Cefepime Inj (Maxipime Inj) (04/18/17 16:52) Vancomycin Inj (Vancomycin Inj) (04/18/17 16:52) Diphenhydramine Inj (Benadryl Inj) (04/18/17 17:30) Methylprednisolone So Succ Inj (Solumedr (04/18/17 17:45) Piperacil-Tazo 4.5 Gm Premix (Zosyn 4.5 (04/18/17 17:35) Admit Order (Ed Use Only) (04/18/17 ) [employer]er / Telemetry PETER.Q8H (04/18/17 18:11) Vital Signs (Adult) Q4H (04/18/17 18:11) Diet Heart Healthy (04/18/17 Dinner) Activity Bed Rest (04/18/17 18:11) Labs Laboratory Tests Test 04/18/17 16:20 White Blood Count 0.8 TH/MM3 Red Blood Count 2.65 MIL/MM3 Hemoglobin 8.5 GM/DL Hematocrit 25.2 % Mean Corpuscular Volume 95.2 FL Mean Corpuscular Hemoglobin 32.0 PG Mean Corpuscular Hemoglobin Concent 33.6 % Red Cell Distribution Width 17.6 % Platelet Count 57 TH/MM3 Mean Platelet Volume 10.2 FL Neutrophils (%) (Auto) 23.8 % Lymphocytes (%) (Auto) 52.9 % Monocytes (%) (Auto) 8.9 % Eosinophils (%) (Auto) 13.5 % Basophils (%) (Auto) 0.9 % Neutrophils # (Auto) 0.2 TH/MM3 Lymphocytes # (Auto) 0.4 TH/MM3 Monocytes # (Auto) 0.1 TH/MM3 Eosinophils # (Auto) 0.1 TH/MM3 Basophils # (Auto) 0.0 TH/MM3 CBC Comment AUTO DIFF Differential Total Cells Counted 100 Neutrophils % (Manual) 24 % Band Neutrophils % 3 % Lymphocytes % 63 % Monocytes % 4 % Eosinophils % 2 % Neutrophils # (Manual) 0.2 TH/MM3 Nucleated Red Blood Cells 3 /100 WBC Differential Comment FINAL DIFF MANUAL Blastocytes 4 % Platelet Estimate LOW Platelet Morphology Comment NORMAL Prothrombin Time 9.8 SEC Prothromb Time International Ratio 1.0 RATIO Activated Partial Thromboplast Time 26.2 SEC Urine Color YELLOW Urine Turbidity CLEAR Urine pH 7.0 Urine Specific [place] 1.015 Urine Protein TRACE mg/dL Urine Glucose (UA) NEG mg/dL Urine Ketones NEG mg/dL Urine Occult Blood NEG Urine Nitrite NEG Urine Bilirubin NEG Urine Urobilinogen 2.0 MG/DL Urine Leukocyte Esterase NEG Urine RBC 1 /hpf Urine WBC 3 /hpf Urine Squamous Epithelial Cells 1 /hpf Urine Transitional Epithelial Cells 1 /hpf Microscopic Urinalysis Comment CATH-CULT NOT IND Blood Urea Nitrogen 10 MG/DL Creatinine 0.80 MG/DL Random Glucose 107 MG/DL Total Protein 6.5 GM/DL Albumin 3.2 GM/DL Calcium Level 8.3 MG/DL Magnesium Level 1.9 MG/DL Alkaline Phosphatase 65 U/L Aspartate Amino Transf (AST/SGOT) 11 U/L Alanine Aminotransferase (ALT/SGPT) 28 U/L Total Bilirubin 1.1 MG/DL Sodium Level 142 MEQ/L Potassium Level 3.6 MEQ/L Chloride Level 107 MEQ/L Carbon Dioxide Level 27.4 MEQ/L Anion Gap 8 MEQ/L Estimat Glomerular Filtration Rate 74 ML/MIN Lactic Acid Level 1.4 mmol/L Total Creatine Kinase 48 U/L Troponin I LESS THAN 0.02 NG/ML MDM Medical Decision Making Medical Screen Exam Complete: Yes Emergency Medical Condition: Yes Differential Diagnosis Different diagnosis includes but not limited to sepsis, pneumonia, influenza, opportunistic infection, neutropenic fever Narrative Course 56 year old female presents to emergency room for evaluation of fever. Patient is neutropenic and chemotherapy. Last IV chemotherapy was week ago. Patient is on oral chemotherapy now. Patient's fever was 101.3 per EMS by the time she arrived after the IV saline bolus was 99.9. Chest x-ray ordered and pending. Patient placed on a monitor and IV obtained. Blood works in the lab. CBC, CMP , PT/INR, lactic acid, magnesium, troponin and CK, urinalysis, influenza, blood cultures ordered and pending. EKG ordered and pending. IV cefepime and vancomycin given. Patient developed hives. Benadryl and Solu-Medrol ordered. IV antibiotics is discontinued and changed to Zosyn per Dr. Reynaga's suggestion. Patient received IV Zosyn. Patient admitted to the hospital for neutropenic fever and sepsis. Patient case discussed with Dr Hinojosa. Dr. Reynaga documented admission details. Maria A Wells Apr 18, 2017 16:23
[2017-04-18 16:50] LABS: BLOOD, URINE NEG (NEG); COMMENT (UR) CATH-CULT NOT IND; CULTURE IF INDICATED CATH CULTURE NOT IND; GLUCOSE,URINE NEG (NEG); KETONE, URINE NEG (NEG); NITRITE,URINE NEG (NEG); SQUAMOUS EPITHELIAL CELL URINE 1 /hpf (0-5); TRANSITIONAL EPI CELLS, URINE 1 /hpf; URINE COLOR YELLOW (YELLW/STRAW)
[2017-04-18] MEDS ORDERED: VANCOMYCIN INJ 1,000 MG in SODIUM CHLOR 0.9% 250 ML INJ 250 ML IV STA (16:52)
[2017-04-18] MEDS ORDERED: CEFEPIME INJ 2,000 MG in SODIUM CHLORIDE 0.9% INJ 100 ML IV STA (16:52)
--- NOTE | 2017-04-18 17:05 | RADRPT ---
EXAM DATE/TIME: 04/18/2017 16:38 [facility] COMPARISON: CHEST SINGLE AP, December 01, 2016, 19:28. INDICATIONS : Fever. Weakness. MEDICAL HISTORY : Leukemia. SURGICAL HISTORY : None. ENCOUNTER: Initial ACUITY: 2 days PAIN SCORE: 5/10 LOCATION: Bilateral chest FINDINGS: A single view of the chest demonstrates the lungs to be symmetrically aerated without evidence of mas s, infiltrate or effusion. The cardiomediastinal contours are unremarkable. Osseous structures are intact. There is a right-sided central line in place. There is no pneumothorax. No significant change s compared to the prior study. CONCLUSION: No acute disease. No significant change has occurred. Alcides Longoria MD on April 18, 2017 at 17:03 Board Certified Radiologist. This report was verified electronically.
[2017-04-18 17:15] LABS: BASOPHIL % 0.9 % (0.0-2.0); EOSINOPHIL # 0.1 TH/MM3 (0-0.4); EOSINOPHIL % 13.5 % (0.0-4.0); HEMATOCRIT 25.2 % (35.0-46.0); LYMPH % 52.9 % (9.0-44.0); LYMPHOCYTE # 0.4 TH/MM3 (1.0-4.8); MEAN CELL VOLUME 95.2 FL (80.0-100.0); MEAN CORPUSCULAR HGB CONC 33.6 % (32.0-36.0); MONO % 8.9 % (0.0-8.0); NEUT % 23.8 % (16.0-70.0); PLATELET COUNT 57 TH/MM3 (150-450); RED BLOOD COUNT 2.65 MIL/MM3 (4.00-5.30); RED CELL DISTRIBUTION WIDTH 17.6 % (11.6-17.2); WHITE BLOOD COUNT 0.8 TH/MM3 (4.0-11.0)
[2017-04-18 17:23] VITALS: BP 161/89; PULSE 103; RESP 21; O2SAT 97
[2017-04-18 17:23] LABS: HEMO FLAGS AUTO DIFF
[2017-04-18 17:25] LABS: AUTOMATED NEUTROPHIL # 0.2 TH/MM3 (1.8-7.7)
[2017-04-18 17:27] LABS: APTT (PATIENT) 26.2 SEC (24.3-30.1); PROTHROMBIN TIME - PATIENT 9.8 SEC (9.8-11.6)
[2017-04-18] MEDS ORDERED: diphenhydrAMINE HCL 50 MG/ML VIAL IV PUSH ONE (17:30)
[2017-04-18] MEDS ORDERED: PIPERACIL-TAZO 4.5 GM PREMIX 100 ML IV STA (17:35)
--- NOTE | 2017-04-18 17:39 | PD ---
Data Data Last Documented VS Vital Signs Date Time Temp Pulse Resp B/P (MAP) Pulse Ox O2 Delivery O2 Flow Rate FiO2 04/18/17 17:23 103 21 161/89 (113) 97 Room Air 04/18/17 16:08 99.9 2.00 Orders Orders Electrocardiogram (04/18/17 16:14) Complete Blood Count With Diff (04/18/17 16:14) Comprehensive Metabolic Panel (04/18/17 16:14) Prothrombin Time / Inr (Pt) (04/18/17 16:14) Act Partial Throm Time (Ptt) (04/18/17 16:14) Lactic Acid Sepsis Protocol (04/18/17 16:14) Magnesium (Mg) (04/18/17 16:14) Ckmb (Isoenzyme) Profile (04/18/17 16:14) Troponin I (04/18/17 16:14) Urinalysis - C+S If Indicated (04/18/17 16:14) Influenzae A/B Antigen (04/18/17 16:14) Blood Culture (04/18/17 16:14) Chest, Single Ap (04/18/17 16:14) Cefepime Inj (Maxipime Inj) (04/18/17 16:52) Vancomycin Inj (Vancomycin Inj) (04/18/17 16:52) Diphenhydramine Inj (Benadryl Inj) (04/18/17 17:30) Methylprednisolone So Succ Inj (Solumedr (04/18/17 17:45) Piperacil-Tazo 4.5 Gm Premix (Zosyn 4.5 (04/18/17 17:35) Labs Laboratory Tests Test 04/18/17 16:20 White Blood Count 0.8 TH/MM3 Red Blood Count 2.65 MIL/MM3 Hemoglobin 8.5 GM/DL Hematocrit 25.2 % Mean Corpuscular Volume 95.2 FL Mean Corpuscular Hemoglobin 32.0 PG Mean Corpuscular Hemoglobin Concent 33.6 % Red Cell Distribution Width 17.6 % Platelet Count 57 TH/MM3 Mean Platelet Volume 10.2 FL Neutrophils (%) (Auto) 23.8 % Lymphocytes (%) (Auto) 52.9 % Monocytes (%) (Auto) 8.9 % Eosinophils (%) (Auto) 13.5 % Basophils (%) (Auto) 0.9 % Neutrophils # (Auto) 0.2 TH/MM3 Lymphocytes # (Auto) 0.4 TH/MM3 Monocytes # (Auto) 0.1 TH/MM3 Eosinophils # (Auto) 0.1 TH/MM3 Basophils # (Auto) 0.0 TH/MM3 CBC Comment AUTO DIFF Differential Total Cells Counted 100 Neutrophils % (Manual) 24 % Band Neutrophils % 3 % Lymphocytes % 63 % Monocytes % 4 % Eosinophils % 2 % Neutrophils # (Manual) 0.2 TH/MM3 Nucleated Red Blood Cells 3 /100 WBC Differential Comment FINAL DIFF MANUAL Blastocytes 4 % Platelet Estimate LOW Platelet Morphology Comment NORMAL Prothrombin Time 9.8 SEC Prothromb Time International Ratio 1.0 RATIO Activated Partial Thromboplast Time 26.2 SEC Urine Color YELLOW Urine Turbidity CLEAR Urine pH 7.0 Urine Specific [place] 1.015 Urine Protein TRACE mg/dL Urine Glucose (UA) NEG mg/dL Urine Ketones NEG mg/dL Urine Occult Blood NEG Urine Nitrite NEG Urine Bilirubin NEG Urine Urobilinogen 2.0 MG/DL Urine Leukocyte Esterase NEG Urine RBC 1 /hpf Urine WBC 3 /hpf Urine Squamous Epithelial Cells 1 /hpf Urine Transitional Epithelial Cells 1 /hpf Microscopic Urinalysis Comment CATH-CULT NOT IND Blood Urea Nitrogen 10 MG/DL Creatinine 0.80 MG/DL Random Glucose 107 MG/DL Total Protein 6.5 GM/DL Albumin 3.2 GM/DL Calcium Level 8.3 MG/DL Magnesium Level 1.9 MG/DL Alkaline Phosphatase 65 U/L Aspartate Amino Transf (AST/SGOT) 11 U/L Alanine Aminotransferase (ALT/SGPT) 28 U/L Total Bilirubin 1.1 MG/DL Sodium Level 142 MEQ/L Potassium Level 3.6 MEQ/L Chloride Level 107 MEQ/L Carbon Dioxide Level 27.4 MEQ/L Anion Gap 8 MEQ/L Estimat Glomerular Filtration Rate 74 ML/MIN Lactic Acid Level 1.4 mmol/L Total Creatine Kinase 48 U/L Troponin I LESS THAN 0.02 NG/ML MDM Medical Record Reviewed: Yes Supervised Visit with RICARDO: Yes Narrative Course I, Dr. Reynaga, have reviewed the advance practice practitioner's documentation and am in agreement, met with the patient face to face, made the diagnosis, and the medical decision making was done by me. *My assessment and Findings: Patient has neutropenic fever. She'll be admitted for IV antibiotics. Urticaria after IV abx, cefepime or Vanco. They were discontinued and the patient was started on Zosyn. Etiology unclear at time of admission. case d/w Dr Armijo by BRETT Wells. Diagnosis Primary Impression: Neutropenic fever Reinier Reynaga MD Apr 18, 2017 17:39
[2017-04-18 17:44] LABS: ALT (GPT) 28 U/L (10-53); ANION GAP 8 MEQ/L (5-15); AST (GOT) 11 U/L (15-37); BICARBONATE 27.4 MEQ/L (21.0-32.0); BLOOD UREA NITROGEN 10 MG/DL (7-18); CHLORIDE 107 MEQ/L (98-107); GLOMERULAR FILTRATION RATE 74 ML/MIN (>89); MAGNESIUM 1.9 MG/DL (1.5-2.5); POTASSIUM 3.6 MEQ/L (3.5-5.1); SODIUM (NA) 142 MEQ/L (136-145)
[2017-04-18] MEDS ORDERED: methylPREDNISolone SOD SUCC 125 MG/2 ML VIAL IV PUSH ONE (17:45)
[2017-04-18 17:48] LABS: ALKALINE PHOSPHATASE 65 U/L (45-117); TOTAL BILIRUBIN ADULT 1.1 MG/DL (0.2-1.0)
[2017-04-18 17:51] LABS: BANDS 3 % (0-6); BLASTS 4 % (0-0); CORRECTED NUCLEATED RBC 3 /100 WBC (0-0); EOSINOPHILS 2 % (0-4); NEUTROPHIL # MANUAL DIFF 0.2 TH/MM3 (1.8-7.7); POLYS (SEG NEUTROPHILS) 24 % (16-70); WBC DIFF SAMPLE 100
[2017-04-18 17:52] LABS: PLATELET ESTIMATE SMEAR LOW (NORMAL); PLATELET MORPHOLOGY NORMAL (NORMAL); SCAN/DIFF FINAL DIFF MANUAL
[2017-04-18 17:55] LABS: CREATINE KINASE 48 U/L (26-192)
[2017-04-18 18:58] VITALS: BP 137/71; PULSE 98; RESP 20; TEMP 100.3; O2SAT 96
[2017-04-18] MEDS ORDERED: Vancomycin Consult Pharmacy 1 EA OTHER SCH (19:00)
[2017-04-18] MEDS ORDERED: diphenhydrAMINE HCL 50 MG/ML VIAL IM PRN (19:00)
[2017-04-18] MEDS ORDERED: LACTULOSE SYRUP 20 GM/30 ML CUP PO PRN (19:00)
[2017-04-18] MEDS ORDERED: SODIUM CHLORIDE 0.9% FLUSH 10 ML FLUSH IV FLUSH PRN (19:00)
[2017-04-18] MEDS ORDERED: SENNOSIDES 8.6 MG TAB PO PRN (19:00)
[2017-04-18] MEDS ORDERED: BISACODYL 10 MG SUPP RECTAL PRN (19:00)
[2017-04-18] MEDS ORDERED: ENOXAPARIN SODIUM 40 MG/0.4 ML SYRINGE SQ SCH (19:00)
[2017-04-18] MEDS ORDERED: MAGNESIUM HYDROXIDE SUSP 30 ML CUP PO PRN (19:00)
[2017-04-18] MEDS ORDERED: NALOXONE HCL 0.4 MG/ML AMP IV PUSH PRN (19:00)
[2017-04-18] MEDS ORDERED: RESP: ALBUTEROL 2.5 MG/IPRATROPIUM 0.5 MG NEB (PRN) NEB (20:00)
--- NOTE | 2017-04-18 20:04 | HHI.HP ---
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 Per EMS, her fever was 101.3. She complains of associated shortness of breath with exertion 3 days. Denies cough or other systemic symptoms. WBC count is 0.8. Oncologist is Dr. Fonseca. Review of Systems Denies fever or chills Denies blurry vision, otorrhea, rhinorrhea Denies sore throat and cough No chest pain, palpitations, positive shortness of breath No abdominal pain Denies constipation/diarrhea/nausea/vomiting Denies muscle pain/weakness No rashes Past Family Social History Past Medical History AML Lupus RA COPD Past Surgical History Cholecystectomy Tonsillectomy Right bunion surgery Unspecified nasal surgery Reported Medications Reported Meds & Active Scripts Active Vancocin (Vancomycin HCl) 250 Mg Cap 250 Mg PO QID 10 Days Norvasc (Amlodipine Besylate) 5 Mg Tab 5 Mg PO DAILY Reported Zofran (Ondansetron HCl) 4 Mg Tab 4 Mg PO Q6HR PRN Prochlorperazine Edisylate 5 Mg/1 Ml Vial 5 Mg PO PRN [Rydapt] 50 Mg PO BID Levofloxacin 500 Mg Tablet 500 Mg PO DAILY Prednisone 2.5 Mg Tab 2.5 Mg PO BID Losartan-Hydrochlorothiazide 100-25 Mg Tab 1 Tab PO DAILY Carvedilol 12.5 Mg Tab 3.125 Mg PO DAILY Allergies: Coded Allergies: cefepime (Verified Allergy, Severe, HIVES, 04/18/17) latex (Unverified Allergy, Severe, Rash, 04/18/17) Sulfa (Sulfonamide Antibiotics) (Unverified Adverse Reaction, Severe, Vomiting, cramps, 04/18/17) Family History No family history of CAD or DM Social History Quit tobacco 13 years ago. Rare alcohol. Denies marijuana or illicit drugs. Physical Exam Vital Signs Vital Signs Date Time Temp Pulse Resp B/P (MAP) Pulse Ox O2 Delivery O2 Flow Rate FiO2 04/18/17 19:02 98 17 98 Room Air 04/18/17 18:58 100.3 98 20 137/71 (93) 96 Room Air 04/18/17 17:23 103 21 161/89 (113) 97 Room Air 04/18/17 16:10 112 19 98 Room Air 04/18/17 16:08 99.9 106 19 185/114 (137) 100 Nasal Cannula 2.00 04/18/17 16:02 99.3 106 19 185/114 (137) 100 Physical Exam GENERAL: female lying in bed SKIN: No rashes, ecchymoses or lesions. Cool and dry. HEAD: Atraumatic. Normocephalic. No temporal or scalp tenderness. EYES: Pupils equal round and reactive. Extraocular motions intact. No scleral icterus. No injection or drainage. ENT: Nose without bleeding, purulent drainage or septal hematoma. Throat without erythema, tonsillar hypertrophy or exudate. Uvula midline. Airway patent. NECK: Trachea midline. No JVD or lymphadenopathy. Supple, nontender, no meningeal signs. CARDIOVASCULAR: Regular rate and rhythm without murmurs, gallops, or rubs. RESPIRATORY: Clear to auscultation. Breath sounds equal bilaterally. No wheezes , rales, or rhonchi. GASTROINTESTINAL: Abdomen soft, non-tender, nondistended. No hepato-splenomegaly , or palpable masses. No guarding. MUSCULOSKELETAL: Extremities without clubbing, cyanosis, or edema. No joint tenderness, effusion, or edema noted. No calf tenderness. NEUROLOGICAL: Awake and alert. Cranial nerves II through XII intact. Motor and sensory grossly within normal limits. Normal speech. Laboratory Laboratory Tests Test 04/18/17 16:20 White Blood Count 0.8 Red Blood Count 2.65 Hemoglobin 8.5 Hematocrit 25.2 Mean Corpuscular Volume 95.2 Mean Corpuscular Hemoglobin 32.0 Mean Corpuscular Hemoglobin Concent 33.6 Red Cell Distribution Width 17.6 Platelet Count 57 Mean Platelet Volume 10.2 Neutrophils (%) (Auto) 23.8 Lymphocytes (%) (Auto) 52.9 Monocytes (%) (Auto) 8.9 Eosinophils (%) (Auto) 13.5 Basophils (%) (Auto) 0.9 Neutrophils # (Auto) 0.2 Lymphocytes # (Auto) 0.4 Monocytes # (Auto) 0.1 Eosinophils # (Auto) 0.1 Basophils # (Auto) 0.0 CBC Comment AUTO DIFF Differential Total Cells Counted 100 Neutrophils % (Manual) 24 Band Neutrophils % 3 Lymphocytes % 63 Monocytes % 4 Eosinophils % 2 Neutrophils # (Manual) 0.2 Nucleated Red Blood Cells 3 Differential Comment FINAL DIFF MANUAL Blastocytes 4 Platelet Estimate LOW Platelet Morphology Comment NORMAL Prothrombin Time 9.8 Prothromb Time International Ratio 1.0 Activated Partial Thromboplast Time 26.2 Urine Color YELLOW Urine Turbidity CLEAR Urine pH 7.0 Urine Specific [place] 1.015 Urine Protein TRACE Urine Glucose (UA) NEG Urine Ketones NEG Urine Occult Blood NEG Urine Nitrite NEG Urine Bilirubin NEG Urine Urobilinogen 2.0 Urine Leukocyte Esterase NEG Urine RBC 1 Urine WBC 3 Urine Squamous Epithelial Cells 1 Urine Transitional Epithelial Cells 1 Microscopic Urinalysis Comment CATH-CULT NOT IND Blood Urea Nitrogen 10 Creatinine 0.80 Random Glucose 107 Total Protein 6.5 Albumin 3.2 Calcium Level 8.3 Magnesium Level 1.9 Alkaline Phosphatase 65 Aspartate Amino Transf (AST/SGOT) 11 Alanine Aminotransferase (ALT/SGPT) 28 Total Bilirubin 1.1 Sodium Level 142 Potassium Level 3.6 Chloride Level 107 Carbon Dioxide Level 27.4 Anion Gap 8 Estimat Glomerular Filtration Rate 74 Lactic Acid Level 1.4 Total Creatine Kinase 48 Troponin I LESS THAN 0.02 Date/Time Source Procedure Growth Status 04/18/17 16:30 Blood Peripheral Aerobic Blood Culture Pending Received 04/18/17 16:30 Blood Peripheral Anaerobic Blood Culture Pending Received 04/18/17 16:20 Nasal Washing Influenza Types A,B Antigen (LAMAR) - Final NEGATIVE FOR FLU A AND B ANTIGEN.... Complete Result Diagram: 04/18/17 1620 04/18/17 1620 Caprini VTE Risk Assessment Caprini VTE Risk Assessment: Mod/High Risk (score >= 2) Caprini Risk Assessment Model Point Value = 1 Point Value = 2 Point Value = 3 Point Value = 5 Age 41-60 Minor surgery BMI > 25 kg/m2 Swollen legs Varicose veins or History of unexplained or recurrent spontaneous Oral contraceptives or hormone replacement Sepsis (< 1 month) Serious lung disease, including pneumonia (< 1 month) Abnormal pulmonary function Acute myocardial infarction Congestive heart failure (< 1 month) History of inflammatory bowel disease Medical patient at bed rest Age 61-74 Arthroscopic surgery Major open surgery (> 45 min) Laparoscopic surgery (> 45 min) Malignancy Confined to bed (> 72 hours) Immobilizing plaster cast Central venous access Age >= 75 History of VTE Family history of VTE Factor V Leiden Prothrombin [id number] Lupus anticoagulant Anticardiolipin antibodies Elevated serum homocysteine Heparin-induced thrombocytopenia Other congenital or acquired thrombophilia Stroke (< 1 month) Elective arthroplasty Hip, pelvis, or leg fracture Acute spinal cord injury (< 1 month) Prophylaxis Regimen Total Risk Factor Score Risk Level Prophylaxis Regimen 0-1 Low Early ambulation 2 Moderate Order ONE of the following: *Sequential Compression Device (SCD) *Heparin 5000 units SQ BID 3-4 Higher Order ONE of the following medications: *Heparin 5000 units SQ TID *Enoxaparin/Lovenox 40 mg SQ daily (WT < 150 kg, CrCl > 30 mL/min) *Enoxaparin/Lovenox 30 mg SQ daily (WT < 150 kg, CrCl > 10-29 mL/min) *Enoxaparin/Lovenox 30 mg SQ BID (WT < 150 kg, CrCl > 30 mL/min) AND/OR *Sequential Compression Device (SCD) 5 or more Highest Order ONE of the following medications: *Heparin 5000 units SQ TID (Preferred with Epidurals) *Enoxaparin/Lovenox 40 mg SQ daily (WT < 150 kg, CrCl > 30 mL/min) *Enoxaparin/Lovenox 30 mg SQ daily (WT < 150 kg, CrCl > 10-29 mL/min) *Enoxaparin/Lovenox 30 mg SQ BID (WT < 150 kg, CrCl > 30 mL/min) AND *Sequential Compression Device (SCD) Assessment and Plan Assessment and Plan Assessment/plan: 1. Neutropenic fever/Tachycardia MAXIMUM TEMPERATURE 101.3, WBC 0.8 Pulse 106 Cefepime and vancomycin with Benadryl for premedication prior to vancomycin administration as patient developed hives with previous dosing (now resolved) IVFs Consults oncology, appreciate recommendations Consult infectious disease, appreciate recommendations Monitor for signs of sepsis 2. AML Continue Rydapt Per Oncology recommendations 3. COPD Duo nebs when necessary FEN Heart healthy diet Electrolytes: monitor and replete prn NS at 100 cc/hr Lovenox Physician Certification 2 Midnight Certification Type: Admission for Inpatient Services Order for Inpatient Services The services are ordered in accordance with Medicare regulations or non- Medicare payer requirements, as applicable. In the case of services not specified as inpatient-only, they are appropriately provided as inpatient services in accordance with the 2-midnight benchmark. Estimated LOS (days): 2 2 days is the estimated time the patient will need to remain in the hospital, assuming treatment plan goals are met and no additional complications. Post-Hospital Plan: Not yet determined Ivis Junior MD Apr 18, 2017 20:04
[2017-04-18 20:55] VITALS: BP 118/78; PULSE 107; RESP 17; TEMP 99.3; O2SAT 97
[2017-04-18] MEDS ORDERED: MIDOSTAURIN 50 MG PO SCH (21:00)
[2017-04-18] MEDS ORDERED: DOCUSATE SODIUM 50 MG/SENNA 8.6 MG TAB PO SCH (21:00)
[2017-04-18] MEDS ORDERED: VANCOMYCIN INJ 1,000 MG in SODIUM CHLOR 0.9% 250 ML INJ 250 ML IV ONE (21:17)
[2017-04-18 22:02] VITALS: PULSE 90
[2017-04-18] MEDS ORDERED: diphenhydrAMINE HCL 50 MG/ML VIAL IM SCH (22:15)
[2017-04-19] VITALS (9 sets, daily range): BP systolic 100–127; BP diastolic 65–86; PULSE 68–98; RESP 17–18; TEMP 95.9–98.4; O2SAT 93–99
[2017-04-19] MEDS ORDERED: CEFEPIME INJ 2,000 MG in SODIUM CHLORIDE 0.9% INJ 100 ML IV SCH (01:00)
[2017-04-19] MEDS: CEFEPIME INJ 2,000 MG in SODIUM CHLORIDE 0.9% INJ 100 ML IV SCH ×3 (01:02→17:00)
[2017-04-19] MEDS: SODIUM CHLOR 0.9% 1000 ML INJ 1,000 ML IV SCH ×3 (01:02→17:08)
[2017-04-19] MEDS ORDERED: diphenhydrAMINE HCL 50 MG/ML VIAL IM SCH (06:00)
[2017-04-19] MEDS ORDERED: VANCOMYCIN 1,000 MG/NS 250 ML IV SCH ×2 (06:00)
[2017-04-19 07:12] LABS: AUTOMATED NEUTROPHIL # 0.1 TH/MM3 (1.8-7.7); BASOPHIL % 1.6 % (0.0-2.0); EOSINOPHIL % 7.5 % (0.0-4.0); HEMATOCRIT 25.3 % (35.0-46.0); LYMPH % 57.1 % (9.0-44.0); LYMPHOCYTE # 0.2 TH/MM3 (1.0-4.8); MEAN CELL VOLUME 95.4 FL (80.0-100.0); MEAN CORPUSCULAR HEMOGLOBIN 31.7 PG (27.0-34.0); MEAN CORPUSCULAR HGB CONC 33.2 % (32.0-36.0); MONO % 1.3 % (0.0-8.0); NEUT % 32.5 % (16.0-70.0); PLATELET COUNT 51 TH/MM3 (150-450); RED BLOOD COUNT 2.65 MIL/MM3 (4.00-5.30); RED CELL DISTRIBUTION WIDTH 17.5 % (11.6-17.2); WHITE BLOOD COUNT 0.4 TH/MM3 (4.0-11.0)
[2017-04-19 07:13] LABS: HEMO FLAGS AUTO DIFF
[2017-04-19 07:27] LABS: BICARBONATE 24.3 MEQ/L (21.0-32.0); POTASSIUM 4.1 MEQ/L (3.5-5.1)
[2017-04-19 08:13] LABS: BANDS 2 % (0-6); BLASTS 5 % (0-0); EOSINOPHILS 2 % (0-4); POLYS (SEG NEUTROPHILS) 29 % (16-70); WBC DIFF SAMPLE 42
[2017-04-19 08:15] LABS: NEUTROPHIL # MANUAL DIFF 0.1 TH/MM3 (1.8-7.7); PLATELET ESTIMATE SMEAR LOW (NORMAL)
[2017-04-19 08:16] LABS: PLATELET MORPHOLOGY ENLARGED (NORMAL); SCAN/DIFF FINAL DIFF MANUAL
[2017-04-19] MEDS ORDERED: NON-FORMULARY DRUG (Losartan-Hydrochlorothiazide 1 TAB) PO SCH (09:00)
--- NOTE | 2017-04-19 09:40 | HHI.PR ---
Subjective Remarks Follow-up neutropenic fever 04/19/17-patient seen and examined, currently afebrile and denies any chest pain or shortness of breath. No acute event overnight. Tolerated by mouth without any complication of nausea and vomiting. Objective Vitals Vital Signs Date Time Temp Pulse Resp B/P (MAP) Pulse Ox O2 Delivery O2 Flow Rate FiO2 04/19/17 08:00 95.9 68 18 114/77 (89) 96 04/19/17 04:13 98.4 72 17 100/72 (81) 99 04/19/17 00:23 98.0 98 17 127/83 (98) 97 04/18/17 22:02 90 04/18/17 21:03 04/18/17 20:55 99.3 107 17 118/78 (91) 97 04/18/17 19:02 98 17 98 Room Air 04/18/17 18:58 100.3 98 20 137/71 (93) 96 Room Air 04/18/17 17:23 103 21 161/89 (113) 97 Room Air 04/18/17 16:10 112 19 98 Room Air 04/18/17 16:08 99.9 106 19 185/114 (137) 100 Nasal Cannula 2.00 04/18/17 16:02 99.3 106 19 185/114 (137) 100 I/O 04/18/17 04/18/17 04/18/17 04/19/17 04/19/17 04/19/17 07:00 15:00 23:00 07:00 15:00 23:00 Intake Total 515 ml 590 ml Balance 515 ml 590 ml Intake Oral 240 ml 240 ml IV Total 275 ml 350 ml # Voids 1 2 # Bowel Movements 0 0 Result Diagram: 04/19/17 0457 04/19/17 0457 Imaging Last Impressions Chest X-Ray 04/18/17 1614 Signed Impressions: Service Date/Time: Tuesday, April 18, 2017 16:38 - CONCLUSION: No acute disease. No significant change has occurred. Alcides Longoria MD Objective Remarks GENERAL: NAD SKIN: Warm and dry. HEAD: Normocephalic. EYES: No scleral icterus. No injection or drainage. NECK: Supple, trachea midline. No JVD or lymphadenopathy. CARDIOVASCULAR: Regular rate and rhythm without murmurs, gallops, or rubs. RESPIRATORY: Breath sounds equal bilaterally. No accessory muscle use. GASTROINTESTINAL: Abdomen soft, non-tender, nondistended. MUSCULOSKELETAL: No cyanosis, or edema. BACK: Nontender without obvious deformity. No CVA tenderness. A/P Problem List: (1) Neutropenic fever ICD Code: D70.9 - Neutropenia, unspecified; R50.81 - Fever presenting with conditions classified elsewhere Status: Acute (2) Acute myeloid leukemia ICD Code: C92.00 - Acute myeloblastic leukemia, not having achieved remission Status: Acute (3) Pancytopenia ICD Code: D61.818 - Other pancytopenia Status: Acute Assessment and Plan 56-year-old female with 1. Neutropenic fever Consultation pending for oncology and infectious disease specialist Currently on Cefepime and vancomycin pending culture reports Continue with neutropenic precautions 2. AML Continue Rydapt Per Oncology recommendations 3. Pancytopenia Management per oncology 4. COPD No current exacerbation Duo nebs when necessary 5. History of hypertension Currently normotensive on Coreg, Norvasc, hydrochlorothiazide, Cozaar DVT prophylaxis: Bilateral SCDs Barrera Wren MD Apr 19, 2017 09:40
[2017-04-19] MEDS: CARVEDILOL 3.125 MG TAB PO SCH (09:54)
[2017-04-19] MEDS: amLODIPine BESYLATE 5 MG TAB PO SCH (09:54)
[2017-04-19] MEDS: HYDROCHLOROTHIAZIDE 25 MG TAB PO SCH (09:55)
[2017-04-19] MEDS: LOSARTAN 50 MG TAB PO SCH (10:03)
[2017-04-19] MEDS: SODIUM CHLORIDE 0.9% FLUSH 10 ML FLUSH IV FLUSH SCH ×2 (10:07→21:00)
--- NOTE | 2017-04-19 13:07 | MB ---
cc: MARELY HASSAN MD DATE OF CONSULTATION 04/19/[address] Junior REASON Neutropenic fever. HISTORY OF PRESENT ILLNESS This is a 56-year-old white female who has a history of AML. The patient was diagnosed with AML in August of 2016. She underwent chemotherapy treatment and she was found to be in remission and then subsequently had relapse. She is followed by the oncologist, Dr. Fonseca. The patient was started on chemotherapy in the form of RYDAPT one week ago. She noted that she started to get nausea one week ago and subsequently she felt decreased energy and some dyspnea with exertion and later on she developed low-grade fever which she felt was minor but the fever recurred two days ago and she was also having some chills and alerted medical services and she was brought to the emergency department for evaluation. In the emergency room she was noted to have a temperature of 99.9. EMS reported the temperature before that was 101.3 with the heart rate mildly elevated at 103 and the white count was decreased at 0.8 and platelet count decreased at 57. The patient was admitted. She received IV antibiotics. Blood cultures were taken and there was no growth in one day. Urinalysis was unremarkable. Chest x-ray was performed and showed no acute disease. The patient has no cough or sputum production. The white blood cell count today is lower. It is 0.4. PAST MEDICAL HISTORY 1. Acute myelogenous leukemia. 2. Lupus. 3. Rheumatoid arthritis. 4. COPD. 5. Port placement. 6. Cholecystectomy. 7. Tonsillectomy. 8. Cervical cancer. 9. Bunion of the right foot. 10. History of C. Difficile in November 2016. ALLERGIES CEFEPIME. SULFA. MEDICATIONS 1. Cefepime. 2. Vancomycin. 3. Coreg. 4. Norvasc. 5. Cozaar. 6. Hydrochlorothiazide. 7. Albuterol nebs. SOCIAL HISTORY No tobacco. The patient is a former smoker. No alcohol. No illicit drugs. FAMILY HISTORY Non-contributory. REVIEW OF SYSTEMS CONSTITUTIONAL: Significant for fever and chills. HEENT: No visual blurring or diplopia. No difficult swallowing. No soreness of the throat. NECK: No neck pain or selling. CARDIOVASCULAR: No chest pain or palpitation. RESPIRATORY: Complains of dyspnea on exertion. Denies cough or sputum production. GASTROINTESTINAL: Complains of nausea. No vomiting or abdominal pain or diarrhea. GENITOURINARY: Denies urgency, frequency or dysuria. HEMATOPOIETIC: Denies any bruising or bleeding. ENDOCRINE: Denies polyuria or polydipsia. INTEGUMENTARY: Denies skin rash or itching. NEUROLOGIC: Denies problems with coordination. PSYCHIATRIC: Denies mood changes. PHYSICAL EXAMINATION GENERAL: This is a moderately obese female in no acute distress. She is awake, alert and oriented. VITAL SIGNS: Temperature 97.9, BP 112/77, respirations 18, heart rate 68. HEENT: Head atraumatic. Extraocular movements grossly intact. Pupils reactive to light. No icterus. No conjunctival erythema. Oropharynx reveals moist mucosa without lesions. NECK: Supple. No adenopathy. LUNGS: Clear breath sounds bilaterally. HEART: Regular S1 and S2. No murmurs, no rubs, no gallops. ABDOMEN: Bowel sounds present. Soft. No tenderness appreciated. RECTAL: Not performed. EXTREMITIES: No clubbing, cyanosis or edema. SKIN: No rash. NEUROLOGIC: No gross focal findings. PSYCHIATRIC: Patient calm and cooperative. LABS WBCs 0.4, platelets 51, hemoglobin 8.4, 57% lymphocytes, 32% neutrophils. Creatinine 0.65, BUN 10. Estimated GFR was 94. Sodium 141. IMPRESSION 1. Neutropenic fever. 2. Pancytopenia. 3. AML. ASSESSMENT The patient's fever and neutropenia could be related to the chemotherapeutic agent that she is receiving. However, given her underlying severe neutropenia we definitely need to keep her on broad spectrum antibiotics and follow cultures to make sure she does not have underlying sepsis or infection causing the fevers. RECOMMENDATIONS 1. Continue cefepime. The patient's complaint about reaction to cefepime was a headache which appeared back in November. I do not think that was true allergy. 2. Continue vancomycin for gram-positive coverage. 3. Monitor her cultures. Thank you for this consultation. The patient's progress will be monitored and further recommendations will be given upon followup if necessary. Marely Hassan MD FD/JENNIFER /12:22 PM /12:38 PM
[2017-04-19] MEDS: VANCOMYCIN INJ 1,250 MG in SODIUM CHLOR 0.9% 250 ML INJ 250 ML IV SCH (13:10)
--- NOTE | 2017-04-19 18:18 | EKG ---
Date Performed: 04/18/2017 Time Performed: 16:46:54 PTAGE: 56 years EKG: Sinus rhythm INCOMPLETE RIGHT BUNDLE BRANCH BLOCK NONSPECIFIC T-WAVE ABNORMALITY Compared to previous tracing, si nus rate is slower BORDERLINE ECG PREVIOUS TRACING : 11/28/2016 18.33 DOCTOR: Al Rawls Interpretating Date/Time 04/19/2017 18:16:00
--- NOTE | 2017-04-19 19:49 | MB ---
cc: MIKAYLA CASTANEDA M.D. DATE OF CONSULTATION 04/19/2017 REASON FOR CONSULTATION Consult requested by hospitalist for evaluation of severe pancytopenia with profound neutropenia and associated fever. HISTORY OF PRESENT ILLNESS Ashley is a pleasant 56-year-old female. She was diagnosed with acute myeloid leukemia last August. She was treated with two induction chemotherapy and she went into remission. The first induction was idarubicin and tonio-C and the second induction was CLAG chemotherapy. The patient then had high-dose Tonio-C consolidation chemotherapy with RYDAPT on November 16. She was referred to [facility] for a bone marrow transplant. Prior to the transplant the bone marrow biopsy showed that she has a relapse of the leukemia. Now she is on Dacogen plus RYDAPT therapy. She so far had two cycles. The second cycle was 2 weeks ago and she on the second week of RYDAPT. The patient noticed low grade fever on . She did not feel good on Wednesday and an over the weekend. She decided to come to the emergency room for fever. The CBC showed severe pancytopenia with a white count is 0.8, hemoglobin 8.5, platelet count 57. Absolute neutrophil count is only 200. The patient is now admitted to the hospital. She was started on antibiotics and I have been asked to see her for further evaluation. The patient has been complaining of extreme weakness, fatigue. She does not have any more fevers since she has been in the hospital. In the emergency room her temperature was 100.3 and now her temperature is 97.7. Blood cultures have been done. She denies any headaches. She has been complaining of nausea and abdominal discomfort. She denies any diarrhea or constipation. The rest of the review of systems is negative. PAST MEDICAL HISTORY 1. Anxiety disorder. 2. COPD. 3. Depression. 4. Hypercholesterolemia. 5. Hypertension. 6. Irregular heartbeat. PAST SURGICAL HISTORY 1. C section. 2. Cholecystectomy. 3. Colon resection. 4. Complete hysterectomy. 5. [id number] placement. 6. Right foot surgery. 7. Colonoscopy. ALLERGIES ROBAXIN AND SULFA. MEDICATIONS 1. Amlodipine. 2. Carvedilol. 3. Hydrochlorothiazide. 4. Losartan. 5. RYDAPT. FAMILY HISTORY No history of malignancy. SOCIAL HISTORY The patient does not smoke cigarettes, does not drink alcohol. PHYSICAL EXAMINATION GENERAL: This is a well-developed, well-nourished white female in no apparent distress. VITAL SIGNS: Temperature 97.7, heart rate 77, blood pressure 112/72, O2 saturation 97% on room air. HEENT: PERRLA, EOMI, anicteric. No oral lesions are noted. NECK: No lymphadenopathy noted. LUNGS: Lungs are clear. No wheezing, rhonchi or rales. CARDIOVASCULAR: Heart is regular rate and rhythm. ABDOMEN: Soft, nontender. No hepatosplenomegaly. EXTREMITIES: No pedal edema. NEUROLOGIC: Awake, alert, oriented times three. SKIN: No significant lesions noted. ASSESSMENT 1. Profound neutropenia with fever and possible sepsis. 2. Severe pancytopenia from the chemotherapy. 3. Acute myeloid leukemia in relapse on Dacogen and RYDAPT therapy. PLAN I have reviewed her available records and I have discussed with the patient regarding the severe pancytopenia with profound neutropenia and fever. She is at a very high risk for sepsis and its complications. She was started on vancomycin and cefepime. The patient's fever has resolved. The blood cultures have been done. Results of that are still pending. Chest x-ray does not show any acute findings. The urinalysis is negative. Culture is not indicated. ID has been consulted for antibiotic management. The patient does not require any blood or platelet transfusion today. My recommendation is to monitor her CBC daily and if the hemoglobin is less than 8 then will give her blood transfusion and if the platelet count is less than 15, then we will give her platelet transfusion. My recommendation is to continue with the RYDAPT. Thank you for asking my opinion. MD ABEL Mcginnis/NIRANJAN /6:20 PM /7:23 PM VENKATESH
[2017-04-19] MEDS ORDERED: PATIENT OWN MEDICATION PO SCH (21:00)
[2017-04-20] VITALS (15 sets, daily range): BP systolic 95–145; BP diastolic 58–76; PULSE 62–77; RESP 16–18; TEMP 97.8–99.3; O2SAT 95–100
[2017-04-20] MEDS: diphenhydrAMINE HCL 50 MG/ML VIAL IM SCH ×2 (00:20→11:00)
[2017-04-20] MEDS: VANCOMYCIN INJ 1,250 MG in SODIUM CHLOR 0.9% 250 ML INJ 250 ML IV SCH ×3 (00:27→23:21)
[2017-04-20] MEDS: CEFEPIME INJ 2,000 MG in SODIUM CHLORIDE 0.9% INJ 100 ML IV SCH ×3 (01:55→17:57)
[2017-04-20] MEDS: SODIUM CHLOR 0.9% 1000 ML INJ 1,000 ML IV SCH ×2 (06:26→22:54)
[2017-04-20 06:54] LABS: HEMATOCRIT 22.8 % (35.0-46.0); MEAN CELL VOLUME 95.7 FL (80.0-100.0); MEAN CORPUSCULAR HEMOGLOBIN 32.4 PG (27.0-34.0); MEAN CORPUSCULAR HGB CONC 33.8 % (32.0-36.0); PLATELET COUNT 45 TH/MM3 (150-450); RED BLOOD COUNT 2.38 MIL/MM3 (4.00-5.30); RED CELL DISTRIBUTION WIDTH 17.8 % (11.6-17.2); WHITE BLOOD COUNT 0.8 TH/MM3 (4.0-11.0)
[2017-04-20 07:00] LABS: HEMO FLAGS AUTO DIFF
[2017-04-20 07:22] LABS: BICARBONATE 27.8 MEQ/L (21.0-32.0); POTASSIUM 3.7 MEQ/L (3.5-5.1)
[2017-04-20 08:17] LABS: BANDS 2 % (0-6); BASOPHILS 1 % (0-2); BLASTS 4 % (0-0); CORRECTED NUCLEATED RBC 1 /100 WBC (0-0); EOSINOPHILS 3 % (0-4); NEUTROPHIL # MANUAL DIFF 0.1 TH/MM3 (1.8-7.7); POLYS (SEG NEUTROPHILS) 7 % (16-70); WBC DIFF SAMPLE 100
[2017-04-20 08:18] LABS: PLATELET ESTIMATE SMEAR LOW (NORMAL); PLATELET MORPHOLOGY NORMAL (NORMAL); SCAN/DIFF FINAL DIFF MANUAL
[2017-04-20] MEDS: LOSARTAN 50 MG TAB PO SCH (08:18)
[2017-04-20] MEDS: amLODIPine BESYLATE 5 MG TAB PO SCH (08:18)
[2017-04-20] MEDS: HYDROCHLOROTHIAZIDE 25 MG TAB PO SCH (08:19)
[2017-04-20] MEDS: CARVEDILOL 3.125 MG TAB PO SCH (08:21)
[2017-04-20] MEDS ORDERED: SODIUM CHLOR 0.9% 250 ML INJ 250 ML IV ONE (09:00)
[2017-04-20] MEDS ORDERED: ACETAMINOPHEN 325 MG TAB PO PRN (09:00)
--- NOTE | 2017-04-20 10:57 | PD.ONC.PN ---
Subjective Subjective Remarks Afebrile overnight. Patient resting in room. No overnight events. Denies cough, sore throat. Denies chest pain. Denies diarrhea. Objective Data Date Time Temp Pulse Resp B/P (MAP) Pulse Ox O2 Delivery O2 Flow Rate FiO2 04/20/17 07:51 69 04/20/17 07:45 98.1 70 18 104/72 (83) 98 04/20/17 04:38 98.0 63 16 95/58 (70) 99 04/20/17 00:27 98.3 62 122/75 (91) 100 04/20/17 00:07 62 04/19/17 23:00 98.2 69 18 127/86 (100) 96 04/19/17 22:40 82 04/19/17 16:00 97.5 73 18 111/65 (80) 96 04/19/17 15:00 73 04/19/17 12:00 97.7 77 18 112/72 (85) 97 04/20/17 04/20/17 04/20/17 07:00 15:00 23:00 Intake Total 365 ml Balance 365 ml Result Diagram: 04/20/17 0625 04/20/17 0625 Laboratory Results Laboratory Tests Test 04/20/17 06:25 White Blood Count 0.8 TH/MM3 Red Blood Count 2.38 MIL/MM3 Hemoglobin 7.7 GM/DL Hematocrit 22.8 % Mean Corpuscular Volume 95.7 FL Mean Corpuscular Hemoglobin 32.4 PG Mean Corpuscular Hemoglobin Concent 33.8 % Red Cell Distribution Width 17.8 % Platelet Count 45 TH/MM3 Mean Platelet Volume 10.1 FL CBC Comment AUTO DIFF Differential Total Cells Counted 100 Neutrophils % (Manual) 7 % Band Neutrophils % 2 % Lymphocytes % 81 % Monocytes % 2 % Eosinophils % 3 % Basophils % 1 % Neutrophils # (Manual) 0.1 TH/MM3 Nucleated Red Blood Cells 1 /100 WBC Differential Comment FINAL DIFF MANUAL Blastocytes 4 % Platelet Estimate LOW Platelet Morphology Comment NORMAL Blood Urea Nitrogen 14 MG/DL Creatinine 0.62 MG/DL Random Glucose 89 MG/DL Calcium Level 8.6 MG/DL Sodium Level 144 MEQ/L Potassium Level 3.7 MEQ/L Chloride Level 109 MEQ/L Carbon Dioxide Level 27.8 MEQ/L Anion Gap 7 MEQ/L Estimat Glomerular Filtration Rate 99 ML/MIN Culture Results Microbiology Date/Time Source Procedure Growth Status 04/18/17 16:30 Blood Peripheral Aerobic Blood Culture - Preliminary NO GROWTH IN 1 DAY Resulted 04/18/17 16:30 Blood Peripheral Anaerobic Blood Culture - Preliminary NO GROWTH IN 1 DAY Resulted 04/18/17 16:20 Blood Peripheral Aerobic Blood Culture - Preliminary NO GROWTH IN 1 DAY Resulted 04/18/17 16:20 Blood Peripheral Anaerobic Blood Culture - Preliminary NO GROWTH IN 1 DAY Resulted 04/18/17 16:20 Nasal Washing Influenza Types A,B Antigen (LAMAR) - Final NEGATIVE FOR FLU A AND B ANTIGEN.... Complete Administered Medications Medications (Trade) Dose Ordered Sig/Zeynep Route PRN Reason Start Time Stop Time Status Last Admin Dose Admin Sodium Chloride 1,000 ml @ 70 mls/hr [id number] IV 04/18/17 18:55 04/20/17 06:26 Sodium Chloride (NS Flush) 2 ml BID IV FLUSH 04/18/17 21:00 04/19/17 10:07 Amlodipine Besylate (Norvasc) 5 mg DAILY PO 04/19/17 09:00 04/20/17 08:18 Carvedilol (Coreg) 3.125 mg DAILY PO 04/19/17 09:00 04/20/17 08:21 Losartan Potassium (Cozaar) 100 mg DAILY PO 04/19/17 09:00 04/20/17 08:18 Hydrochlorothiazide (Hydrodiuril) 25 mg DAILY PO 04/19/17 09:00 04/20/17 08:19 Cefepime HCl 2000 mg/Sodium Chloride 100 ml @ 200 mls/hr Q8H IV 04/19/17 01:00 04/20/17 08:18 Vancomycin HCl 1250 mg/Sodium Chloride 262.5 ml @ 250 mls/hr Q12H IV 04/19/17 11:00 04/20/17 00:27 Diphenhydramine HCl (Benadryl Inj) 25 mg Q12H IM 04/19/17 23:00 04/20/17 00:20 Objective Remarks GENERAL: Pleasant middle aged female sitting up in bed in nad. SKIN: Warm and dry. HEAD: Normocephalic. EYES: No injection or drainage. NECK: Supple, trachea midline. CARDIOVASCULAR: Regular rate and rhythm RESPIRATORY: Breath sounds equal bilaterally. No accessory muscle use. GASTROINTESTINAL: Abdomen soft, non-tender, nondistended. EXTREMITIES: No cyanosis NEUROLOGICAL: awake and alert, normal speech. moving all extremities. Assessment/Plan Problem List: (1) Neutropenic fever ICD Codes: D70.9 - Neutropenia, unspecified; R50.81 - Fever presenting with conditions classified elsewhere Status: Acute Plan: 04/20: monitor blood cultures. continue antibiotics. give 1 unit pRBC --BC no growth --U/A negative --CXR no acute findings --on Cefepime + Vanco (2) Acute myeloid leukemia ICD Codes: C92.00 - Acute myeloblastic leukemia, not having achieved remission Status: Acute Plan: --on Dacogen + Rydapt. Disease course: August 2016: diagnosed with AML. induction chemo with Lary/Zuleyka-C, then CLAG chemo , then entered remission November 2016: consolidation chemotherapy with hidac and Rydapt. Fall 2016: referred to [facility] for bone marrow transplant. Prior to the transplant the bone marrow biopsy showed that she has a relapse of the leukemia. Now she is on Dacogen plus RYDAPT therapy. She so far had two cycles. The second cycle was 2 weeks ago and she on the second week of RYDAPT. (3) Pancytopenia ICD Codes: D61.818 - Other pancytopenia Status: Acute Plan: --transfuse if the hemoglobin is less than 8 and if the platelet count is less than 15 Assessment 56y/o female with relapsed AML, currently on Dacogen + Rydapt therapy, admitted for neutropenic fever. h/o COPD. Hypercholesterolemia. Hypertension. Irregular heartbeat. Cholecystectomy. Colon resection. Complete hysterectomy. Zocozu-W-Aoso placement. Right foot surgery.. Colonoscopy. Attending Statement The exam, history, and the medical decision-making described in the above note were completed with the assistance of the mid-level provider. I reviewed and agree with the findings presented. I attest that I had a [id number] encounter with the patient on the same day, and personally performed and documented my assessment and findings in the medical record. No more fever PRBC today as hg <8 bc are neg so far. continue A/B and Rydapt Problem Qualifiers (1) Acute myeloid leukemia: Qualified Codes: C92.02 - Acute myeloblastic leukemia, in relapse Julianna Mcdaniel Apr 20, 2017 10:57 April Fonseca MD Apr 20, 2017 19:51
[2017-04-20] MEDS: SODIUM CHLORIDE 0.9% FLUSH 10 ML FLUSH IV FLUSH SCH ×2 (11:50→20:06)
--- NOTE | 2017-04-20 12:52 | HHI.IDPN ---
Note Infectious Disease Note Patient says she feels tired. No other complaints. Afebrile. Denies chills, cough, SOB. Patient noted that she started to get nausea one week ago and subsequently she felt decreased energy and some dyspnea with exertion and later on she developed low-grade fever. PAST MEDICAL HISTORY 1. Acute myelogenous leukemia. 2. Lupus. 3. Rheumatoid arthritis. 4. COPD. 5. Port placement. 6. Cholecystectomy. 7. Tonsillectomy. 8. Cervical cancer. 9. Bunion of the right foot. 10. History of C. Difficile in November 2016. ALLERGIES CEFEPIME. SULFA. MEDICATIONS 1. Cefepime. 2. Vancomycin. Current Medications Medications (Trade) Dose Ordered Sig/Zeynep Route PRN Reason Start Time Stop Time Status Last Admin Dose Admin Sodium Chloride 1,000 ml @ 70 mls/hr [id number] IV 04/18/17 18:55 04/20/17 06:26 Sodium Chloride (NS Flush) 2 ml UNSCH PRN IV FLUSH FLUSH AFTER USING IV ACCESS 04/18/17 19:00 Sodium Chloride (NS Flush) 2 ml BID IV FLUSH 04/18/17 21:00 04/20/17 11:50 Acetaminophen (Tylenol) 650 mg Q4H PRN PO TEMP > 100.4 04/18/17 19:00 Ondansetron HCl (Zofran Inj) 4 mg Q6H PRN IVP NAUSEA OR VOMITING 04/18/17 19:00 Naloxone HCl (Narcan Inj) 0.4 mg UNSCH PRN IV PUSH SEE LABEL COMMENTS 04/18/17 19:00 Magnesium Hydroxide (Milk Of Tia Liwei) 30 ml Q12H PRN PO Mild constipation 04/18/17 19:00 Pharmacy Profile Note 0 ml @ 0 mls/hr UNSCH OTHER 04/18/17 19:00 Amlodipine Besylate (Norvasc) 5 mg DAILY PO 04/19/17 09:00 04/20/17 08:18 Carvedilol (Coreg) 3.125 mg DAILY PO 04/19/17 09:00 04/20/17 08:21 Patient Own Medication PATIENT OWN MED: [place]... BID PO 04/18/17 21:00 Future Hold Albuterol/ Ipratropium (Duoneb Neb) 1 ampule Q4HR NEB PRN NEB SOB/Wheezing 04/18/17 20:00 Losartan Potassium (Cozaar) 100 mg DAILY PO 04/19/17 09:00 04/20/17 08:18 Hydrochlorothiazide (Hydrodiuril) 25 mg DAILY PO 04/19/17 09:00 04/20/17 08:19 Miscellaneous Information SPECIFIC LAB TO BE LASHAY... ONCE ONCE .XX 04/20/17 22:45 04/20/17 22:46 Cefepime HCl 2000 mg/Sodium Chloride 100 ml @ 200 mls/hr Q8H IV 04/19/17 01:00 04/20/17 08:18 Vancomycin HCl 1250 mg/Sodium Chloride 262.5 ml @ 250 mls/hr Q12H IV 04/19/17 11:00 04/20/17 11:43 Miscellaneous Information SPECIFIC LAB TO BE LASHAY... ONCE ONCE .XX 04/20/17 22:45 04/20/17 22:46 Diphenhydramine HCl (Benadryl Inj) 25 mg Q12H IM 04/19/17 23:00 04/20/17 11:00 Sodium Chloride 250 ml @ 15 mls/hr ONCE ONCE IV 04/20/17 09:00 04/21/17 01:39 Acetaminophen (Tylenol) 650 mg Q4H PRN PO SEE LABEL COMMENTS 04/20/17 09:00 Diphenhydramine HCl (Benadryl) 25 mg Q4H PRN PO SEE LABEL COMMENTS 04/20/17 09:00 OBJECTIVE: Vital Signs Date Time Temp Pulse Resp B/P (MAP) Pulse Ox O2 Delivery O2 Flow Rate FiO2 04/20/17 11:51 98.6 76 18 105/58 (74) 96 04/20/17 07:51 69 04/20/17 07:45 98.1 70 18 104/72 (83) 98 04/20/17 04:38 98.0 63 16 95/58 (70) 99 04/20/17 00:27 98.3 62 122/75 (91) 100 04/20/17 00:07 62 04/19/17 23:00 98.2 69 18 127/86 (100) 96 04/19/17 22:40 82 04/19/17 16:00 97.5 73 18 111/65 (80) 96 04/19/17 15:00 73 Laboratory Tests Test 04/18/17 16:20 04/19/17 04:57 04/20/17 06:25 White Blood Count 0.8 TH/MM3 0.4 TH/MM3 0.8 TH/MM3 Red Blood Count 2.65 MIL/MM3 2.65 MIL/MM3 2.38 MIL/MM3 Hemoglobin 8.5 GM/DL 8.4 GM/DL 7.7 GM/DL Hematocrit 25.2 % 25.3 % 22.8 % Mean Corpuscular Volume 95.2 FL 95.4 FL 95.7 FL Mean Corpuscular Hemoglobin 32.0 PG 31.7 PG 32.4 PG Mean Corpuscular Hemoglobin Concent 33.6 % 33.2 % 33.8 % Red Cell Distribution Width 17.6 % 17.5 % 17.8 % Platelet Count 57 TH/MM3 51 TH/MM3 45 TH/MM3 Mean Platelet Volume 10.2 FL 10.2 FL 10.1 FL Neutrophils (%) (Auto) 23.8 % 32.5 % Lymphocytes (%) (Auto) 52.9 % 57.1 % Monocytes (%) (Auto) 8.9 % 1.3 % Eosinophils (%) (Auto) 13.5 % 7.5 % Basophils (%) (Auto) 0.9 % 1.6 % Neutrophils # (Auto) 0.2 TH/MM3 0.1 TH/MM3 Lymphocytes # (Auto) 0.4 TH/MM3 0.2 TH/MM3 Monocytes # (Auto) 0.1 TH/MM3 0.0 TH/MM3 Eosinophils # (Auto) 0.1 TH/MM3 0.0 TH/MM3 Basophils # (Auto) 0.0 TH/MM3 0.0 TH/MM3 CBC Comment AUTO DIFF AUTO DIFF AUTO DIFF Differential Total Cells Counted 100 42 100 Neutrophils % (Manual) 24 % 29 % 7 % Band Neutrophils % 3 % 2 % 2 % Lymphocytes % 63 % 60 % 81 % Monocytes % 4 % 2 % 2 % Eosinophils % 2 % 2 % 3 % Neutrophils # (Manual) 0.2 TH/MM3 0.1 TH/MM3 0.1 TH/MM3 Nucleated Red Blood Cells 3 /100 WBC 1 /100 WBC Differential Comment FINAL DIFF MANUAL FINAL DIFF MANUAL FINAL DIFF MANUAL Blastocytes 4 % 5 % 4 % Platelet Estimate LOW LOW LOW Platelet Morphology Comment NORMAL ENLARGED NORMAL Basophils % 1 % Laboratory Tests Test 04/18/17 16:20 04/19/17 04:57 04/20/17 06:25 Blood Urea Nitrogen 10 MG/DL 10 MG/DL 14 MG/DL Creatinine 0.80 MG/DL 0.65 MG/DL 0.62 MG/DL Random Glucose 107 MG/DL 196 MG/DL 89 MG/DL Total Protein 6.5 GM/DL Albumin 3.2 GM/DL Calcium Level 8.3 MG/DL 8.7 MG/DL 8.6 MG/DL Magnesium Level 1.9 MG/DL Alkaline Phosphatase 65 U/L Aspartate Amino Transf (AST/SGOT) 11 U/L Alanine Aminotransferase (ALT/SGPT) 28 U/L Total Bilirubin 1.1 MG/DL Sodium Level 142 MEQ/L 141 MEQ/L 144 MEQ/L Potassium Level 3.6 MEQ/L 4.1 MEQ/L 3.7 MEQ/L Chloride Level 107 MEQ/L 108 MEQ/L 109 MEQ/L Carbon Dioxide Level 27.4 MEQ/L 24.3 MEQ/L 27.8 MEQ/L Anion Gap 8 MEQ/L 9 MEQ/L 7 MEQ/L Estimat Glomerular Filtration Rate 74 ML/MIN 94 ML/MIN 99 ML/MIN Lactic Acid Level 1.4 mmol/L Total Creatine Kinase 48 U/L Troponin I LESS THAN 0.02 NG/ML Microbiology Date/Time Source Procedure Growth Status 04/18/17 16:30 Blood Peripheral Aerobic Blood Culture - Preliminary NO GROWTH IN 2 DAYS Resulted 04/18/17 16:30 Blood Peripheral Anaerobic Blood Culture - Preliminary NO GROWTH IN 2 DAYS Resulted 04/18/17 16:20 Blood Peripheral Aerobic Blood Culture - Preliminary NO GROWTH IN 2 DAYS Resulted 04/18/17 16:20 Blood Peripheral Anaerobic Blood Culture - Preliminary NO GROWTH IN 2 DAYS Resulted 04/18/17 16:20 Nasal Washing Influenza Types A,B Antigen (LAMAR) - Final NEGATIVE FOR FLU A AND B ANTIGEN.... Complete PHYSICAL EXAMINATION GENERAL: No acute distress. She is awake, alert and oriented. HEENT: No icterus. No conjunctival erythema. Oropharynx reveals moist mucosa without lesions. NECK: Supple. No adenopathy. LUNGS: Clear breath sounds. HEART: Regular S1 and S2. No murmurs, no rubs, no gallops. ABDOMEN: Bowel sounds present. Soft. No tenderness appreciated. EXTREMITIES: No clubbing, cyanosis or edema. SKIN: No rash. NEUROLOGIC: No gross focal findings. PSYCHIATRIC: Patient calm and cooperative. IMPRESSION 1. Neutropenic fever. Cultures negative. 2. Pancytopenia. 3. AML. RECOMMENDATIONS 1. Continue cefepime. The patient's complaint about reaction to cefepime was a headache which appeared back in November. I do not think that was true allergy. 2. Continue vancomycin for gram-positive coverage. 3. Monitor cultures. 4. Monitor clinical status. Jim Grande MD Apr 20, 2017 12:52
[2017-04-20] MEDS: diphenhydrAMINE HCL 25 MG CAP PO PRN (15:40)
[2017-04-20] MEDS: MIDOSTAURIN 25 MG PO SCH (18:25)
[2017-04-20] MEDS: ONDANSETRON HCL 4 MG/2 ML VIAL IVP PRN (18:28)
--- NOTE | 2017-04-20 20:03 | HHI.PR ---
Subjective Remarks No complaints today. No fevers overnight. No nausea, no vomiting, no chest pain. No cough or dyspnea. Objective Vital Signs Date Time Temp Pulse Resp B/P (MAP) Pulse Ox O2 Delivery O2 Flow Rate FiO2 04/20/17 16:06 97.8 73 18 97 04/20/17 15:46 98.1 77 18 107/60 97 04/20/17 14:16 98.6 04/20/17 11:51 98.6 76 18 105/58 (74) 96 04/20/17 07:51 69 04/20/17 07:45 98.1 70 18 104/72 (83) 98 04/20/17 04:38 98.0 63 16 95/58 (70) 99 04/20/17 00:27 98.3 62 122/75 (91) 100 04/20/17 00:07 62 04/19/17 23:00 98.2 69 18 127/86 (100) 96 04/19/17 22:40 82 I/O 04/19/17 04/19/17 04/19/17 04/20/17 04/20/17 04/20/17 07:00 15:00 23:00 07:00 15:00 23:00 Intake Total 590 ml 600 ml 365 ml 1440 ml Balance 590 ml 600 ml 365 ml 1440 ml Intake Oral 240 ml 600 ml 1440 ml IV Total 350 ml 365 ml # Voids 2 4 4 # Bowel Movements 0 2 Result Diagram: 04/20/1762404/20/17 0625 Objective Remarks GENERAL: A&Ox3 SKIN: Warm and dry. HEAD: Normocephalic. EYES: No scleral icterus. No injection or drainage. NECK: Supple, trachea midline. No JVD or lymphadenopathy. CARDIOVASCULAR: Regular rate and rhythm without murmurs, gallops, or rubs. RESPIRATORY: Breath sounds equal bilaterally. No accessory muscle use. GASTROINTESTINAL: Abdomen soft, non-tender, nondistended. MUSCULOSKELETAL: No cyanosis, or edema. BACK: Nontender without obvious deformity. No CVA tenderness. A/P Problem List: (1) Pancytopenia ICD Code: D61.818 - Other pancytopenia Status: Acute (2) Acute myeloid leukemia ICD Code: C92.00 - Acute myeloblastic leukemia, not having achieved remission Status: Acute (3) Neutropenic fever ICD Code: D70.9 - Neutropenia, unspecified; R50.81 - Fever presenting with conditions classified elsewhere Status: Acute Assessment and Plan Assessment and Plan 56-year-old female admitted due to neutropenic fevers and pancytopenia related to AML and Chemotherapy. Neutropenic fever Pancytopenia ID and Oncology following Continue cefepime Continue vancomycin Follow for fever pattern Thus far she has improvement in her fevers on antibiotics Neutropenic precautions Anemia Transfussion of 1 unit PRBC 04/20/17 Follow H/H AML Continue Rydapt Oncology following COPD No exacerbation PRN DuoNebs continued HTN Continue Norvasc Continue Coreg Continue Cozaar Continue Hydrochlorothiazide DVT Prophylaxis SCDs (due to degree of anemia, no anticoagulation at this time) Problem Qualifiers (1) Acute myeloid leukemia: Qualified Codes: C92.02 - Acute myeloblastic leukemia, in relapse Reinier Campos MD Apr 20, 2017 20:03
[2017-04-20] MEDS ORDERED: PHARMACY ORDERED LAB ONE ×2 (22:45)
[2017-04-20] MEDS: diphenhydrAMINE HCL 50 MG/ML VIAL IV PUSH SCH (23:18)
[2017-04-20 23:45] LABS: ALT (GPT) 27 U/L (10-53); ANION GAP 6 MEQ/L (5-15); AST (GOT) 12 U/L (15-37); BICARBONATE 28.1 MEQ/L (21.0-32.0); BLOOD UREA NITROGEN 15 MG/DL (7-18); CHLORIDE 107 MEQ/L (98-107); GLOMERULAR FILTRATION RATE 97 ML/MIN (>89); POTASSIUM 3.8 MEQ/L (3.5-5.1); SODIUM (NA) 141 MEQ/L (136-145)
[2017-04-20 23:50] LABS: ALKALINE PHOSPHATASE 50 U/L (45-117); TOTAL BILIRUBIN ADULT 1.3 MG/DL (0.2-1.0)
[2017-04-21] VITALS (8 sets, daily range): BP systolic 112–135; BP diastolic 71–82; PULSE 77–102; RESP 16–20; TEMP 97.8–99.4; O2SAT 92–97
[2017-04-21] MEDS: CEFEPIME INJ 2,000 MG in SODIUM CHLORIDE 0.9% INJ 100 ML IV SCH ×3 (01:11→16:17)
[2017-04-21 05:11] LABS: MEAN CELL VOLUME 91.7 FL (80.0-100.0); MEAN CORPUSCULAR HGB CONC 33.8 % (32.0-36.0); PLATELET COUNT 38 TH/MM3 (150-450); RED BLOOD COUNT 2.72 MIL/MM3 (4.00-5.30); RED CELL DISTRIBUTION WIDTH 20.9 % (11.6-17.2); WHITE BLOOD COUNT 0.5 TH/MM3 (4.0-11.0)
[2017-04-21 05:20] LABS: HEMO FLAGS AUTO DIFF
[2017-04-21 07:49] LABS: EOSINOPHILS 6 % (0-4); POLYS (SEG NEUTROPHILS) 7 % (16-70); WBC DIFF SAMPLE 100
[2017-04-21 07:51] LABS: PLATELET ESTIMATE SMEAR LOW (NORMAL); PLATELET MORPHOLOGY ENLARGED (NORMAL); SCAN/DIFF FINAL DIFF MANUAL
[2017-04-21] MEDS: MIDOSTAURIN 25 MG PO SCH ×2 (08:57→21:00)
[2017-04-21] MEDS: LOSARTAN 50 MG TAB PO SCH (08:57)
[2017-04-21] MEDS: CARVEDILOL 3.125 MG TAB PO SCH (08:57)
[2017-04-21] MEDS: HYDROCHLOROTHIAZIDE 25 MG TAB PO SCH (08:57)
[2017-04-21] MEDS: amLODIPine BESYLATE 5 MG TAB PO SCH (08:57)
[2017-04-21] MEDS: SODIUM CHLORIDE 0.9% FLUSH 10 ML FLUSH IV FLUSH SCH ×2 (09:00→21:38)
[2017-04-21] MEDS: ONDANSETRON HCL 4 MG/2 ML VIAL IVP PRN ×2 (09:05→21:36)
[2017-04-21] MEDS: VANCOMYCIN INJ 1,250 MG in SODIUM CHLOR 0.9% 250 ML INJ 250 ML IV SCH ×2 (11:10→21:38)
[2017-04-21] MEDS: SODIUM CHLOR 0.9% 1000 ML INJ 1,000 ML IV SCH (11:11)
[2017-04-21] MEDS: diphenhydrAMINE HCL 50 MG/ML VIAL IV PUSH SCH ×2 (11:11→21:36)
--- NOTE | 2017-04-21 14:21 | HHI.IDPN ---
Note Infectious Disease Note Patient says she feels better and not as tired as yesterday. No other complaints. Afebrile. Denies chills, cough, SOB. Tolerating Cefepime without difficulty. Patient noted that she started to get nausea one week ago and subsequently she felt decreased energy and some dyspnea with exertion and later on she developed low-grade fever. PAST MEDICAL HISTORY 1. Acute myelogenous leukemia. 2. Lupus. 3. Rheumatoid arthritis. 4. COPD. 5. Port placement. 6. Cholecystectomy. 7. Tonsillectomy. 8. Cervical cancer. 9. Bunion of the right foot. 10. History of C. Difficile in November 2016. ALLERGIES CEFEPIME. SULFA. MEDICATIONS 1. Cefepime. 2. Vancomycin. Current Medications Medications (Trade) Dose Ordered Sig/Zeynep Route PRN Reason Start Time Stop Time Status Last Admin Dose Admin Sodium Chloride 1,000 ml @ 70 mls/hr [id number] IV 04/18/17 18:55 04/21/17 11:11 Sodium Chloride (NS Flush) 2 ml UNSCH PRN IV FLUSH FLUSH AFTER USING IV ACCESS 04/18/17 19:00 04/20/17 23:21 Sodium Chloride (NS Flush) 2 ml BID IV FLUSH 04/18/17 21:00 04/20/17 11:50 Acetaminophen (Tylenol) 650 mg Q4H PRN PO TEMP > 100.4 04/18/17 19:00 Ondansetron HCl (Zofran Inj) 4 mg Q6H PRN IVP NAUSEA OR VOMITING 04/18/17 19:00 04/21/17 09:05 Naloxone HCl (Narcan Inj) 0.4 mg UNSCH PRN IV PUSH SEE LABEL COMMENTS 04/18/17 19:00 Magnesium Hydroxide (Milk Of Magnesia Liq) 30 ml Q12H PRN PO Mild constipation 04/18/17 19:00 Pharmacy Profile Note 0 ml @ 0 mls/hr UNSCH OTHER 04/18/17 19:00 Amlodipine Besylate (Norvasc) 5 mg DAILY PO 04/19/17 09:00 04/21/17 08:57 Carvedilol (Coreg) 3.125 mg DAILY PO 04/19/17 09:00 04/21/17 08:57 Albuterol/ Ipratropium (Duoneb Neb) 1 ampule Q4HR NEB PRN NEB SOB/Wheezing 04/18/17 20:00 Losartan Potassium (Cozaar) 100 mg DAILY PO 04/19/17 09:00 04/21/17 08:57 Hydrochlorothiazide (Hydrodiuril) 25 mg DAILY PO 04/19/17 09:00 04/21/17 08:57 Cefepime HCl 2000 mg/Sodium Chloride 100 ml @ 200 mls/hr Q8H IV 04/19/17 01:00 04/21/17 09:22 Vancomycin HCl 1250 mg/Sodium Chloride 262.5 ml @ 250 mls/hr Q12H IV 04/19/17 11:00 04/21/17 11:10 Acetaminophen (Tylenol) 650 mg Q4H PRN PO SEE LABEL COMMENTS 04/20/17 09:00 04/20/17 14:15 Diphenhydramine HCl (Benadryl) 25 mg Q4H PRN PO SEE LABEL COMMENTS 04/20/17 09:00 04/20/17 15:40 Patient Own Medication PATIENT OWN MED: Riteshau... BID PO 04/20/17 21:00 04/21/17 08:57 Diphenhydramine HCl (Benadryl Inj) 25 mg Q12H IV PUSH 04/20/17 23:00 04/21/17 11:11 OBJECTIVE: Vital Signs Date Time Temp Pulse Resp B/P (MAP) Pulse Ox O2 Delivery O2 Flow Rate FiO2 04/21/17 11:37 98.6 77 18 135/72 (93) 96 04/21/17 08:00 99.1 96 20 126/71 (89) 97 04/21/17 04:46 99.2 89 18 125/81 (96) 94 04/21/17 04:44 97.8 04/21/17 00:13 81 04/20/17 23:46 98.5 04/20/17 23:43 98.7 76 16 145/76 (99) 99 04/20/17 20:43 76 04/20/17 20:06 99.3 73 16 105/63 (77) 95 04/20/17 20:06 98.7 04/20/17 18:30 98.6 75 18 107/68 98 04/20/17 16:06 97.8 73 18 97 04/20/17 15:46 98.1 77 18 107/60 97 Laboratory Tests Test 04/20/17 06:25 04/21/17 04:50 White Blood Count 0.8 TH/MM3 0.5 TH/MM3 Red Blood Count 2.38 MIL/MM3 2.72 MIL/MM3 Hemoglobin 7.7 GM/DL 8.5 GM/DL Hematocrit 22.8 % 25.0 % Mean Corpuscular Volume 95.7 FL 91.7 FL Mean Corpuscular Hemoglobin 32.4 PG 31.0 PG Mean Corpuscular Hemoglobin Concent 33.8 % 33.8 % Red Cell Distribution Width 17.8 % 20.9 % Platelet Count 45 TH/MM3 38 TH/MM3 Mean Platelet Volume 10.1 FL 8.3 FL CBC Comment AUTO DIFF AUTO DIFF Differential Total Cells Counted 100 100 Neutrophils % (Manual) 7 % 7 % Band Neutrophils % 2 % Lymphocytes % 81 % 73 % Monocytes % 2 % 14 % Eosinophils % 3 % 6 % Basophils % 1 % Neutrophils # (Manual) 0.1 TH/MM3 0.0 TH/MM3 Nucleated Red Blood Cells 1 /100 WBC Differential Comment FINAL DIFF MANUAL FINAL DIFF MANUAL Blastocytes 4 % Platelet Estimate LOW LOW Platelet Morphology Comment NORMAL ENLARGED Basophilic Stippling FAINT Laboratory Tests Test 04/20/17 06:25 04/20/17 22:50 Blood Urea Nitrogen 14 MG/DL 15 MG/DL Creatinine 0.62 MG/DL 0.63 MG/DL Random Glucose 89 MG/DL 80 MG/DL Calcium Level 8.6 MG/DL 8.2 MG/DL Sodium Level 144 MEQ/L 141 MEQ/L Potassium Level 3.7 MEQ/L 3.8 MEQ/L Chloride Level 109 MEQ/L 107 MEQ/L Carbon Dioxide Level 27.8 MEQ/L 28.1 MEQ/L Anion Gap 7 MEQ/L 6 MEQ/L Estimat Glomerular Filtration Rate 99 ML/MIN 97 ML/MIN Total Protein 5.9 GM/DL Albumin 2.8 GM/DL Alkaline Phosphatase 50 U/L Aspartate Amino Transf (AST/SGOT) 12 U/L Alanine Aminotransferase (ALT/SGPT) 27 U/L Total Bilirubin 1.3 MG/DL Microbiology Date/Time Source Procedure Growth Status 04/18/17 16:30 Blood Peripheral Aerobic Blood Culture - Preliminary NO GROWTH IN 3 DAYS Resulted 04/18/17 16:30 Blood Peripheral Anaerobic Blood Culture - Preliminary NO GROWTH IN 3 DAYS Resulted 04/18/17 16:20 Blood Peripheral Aerobic Blood Culture - Preliminary NO GROWTH IN 3 DAYS Resulted 04/18/17 16:20 Blood Peripheral Anaerobic Blood Culture - Preliminary NO GROWTH IN 3 DAYS Resulted 04/18/17 16:20 Nasal Washing Influenza Types A,B Antigen (LAMAR) - Final NEGATIVE FOR FLU A AND B ANTIGEN.... Complete PHYSICAL EXAMINATION GENERAL: No acute distress. Awake, alert and oriented. HEENT: No icterus. No conjunctival erythema. Oropharynx reveals moist mucosa without lesions. NECK: Supple. No adenopathy. LUNGS: Clear breath sounds. HEART: Regular S1 and S2. No murmurs, no rubs, no gallops. ABDOMEN: Bowel sounds present. Soft. No tenderness. EXTREMITIES: No clubbing, cyanosis or edema. SKIN: No rash. NEUROLOGIC: No gross focal findings. PSYCHIATRIC: Calm and cooperative. IMPRESSION 1. Neutropenic fever. Cultures negative. 2. Pancytopenia. 3. AML. RECOMMENDATIONS 1. Continue cefepime. The patient's complaint about reaction to cefepime was a headache which appeared back in November. I do not think that was true allergy. 2. Continue vancomycin for gram-positive coverage. 3. Monitor temperature. 4. Monitor clinical status. Jim Grande MD Apr 21, 2017 14:21
--- NOTE | 2017-04-21 14:39 | HHI.PR ---
Subjective Remarks Patient remains fever free. She does have a downward trending white blood cell count and platelets. Hemoglobin has an upper trend but she did have a transfusion yesterday. Pancytopenia not yet stable. Objective Vital Signs Date Time Temp Pulse Resp B/P (MAP) Pulse Ox O2 Delivery O2 Flow Rate FiO2 04/21/17 11:37 98.6 77 18 135/72 (93) 96 04/21/17 08:00 99.1 96 20 126/71 (89) 97 04/21/17 04:46 99.2 89 18 125/81 (96) 94 04/21/17 04:44 97.8 04/21/17 00:13 81 04/20/17 23:46 98.5 04/20/17 23:43 98.7 76 16 145/76 (99) 99 04/20/17 20:43 76 04/20/17 20:06 99.3 73 16 105/63 (77) 95 04/20/17 20:06 98.7 04/20/17 18:30 98.6 75 18 107/68 98 04/20/17 16:06 97.8 73 18 97 04/20/17 15:46 98.1 77 18 107/60 97 I/O 04/20/17 04/20/17 04/20/17 04/21/17 04/21/17 04/21/17 07:00 15:00 23:00 07:00 15:00 23:00 Intake Total 365 ml 2860 ml 620 ml Balance 365 ml 2860 ml 620 ml Intake Oral 1440 ml 240 ml IV Total 365 ml 1000 ml 380 ml Packed Cells 400 ml Blood Product IV Normal Saline Flush 20 ml # Voids 4 2 Result Diagram: 04/21/17 0450 04/20/17 2250 Objective Remarks GENERAL: A&Ox3 SKIN: Warm and dry. HEAD: Normocephalic. EYES: No scleral icterus. No injection or drainage. NECK: Supple, trachea midline. No JVD or lymphadenopathy. CARDIOVASCULAR: Regular rate and rhythm without murmurs, gallops, or rubs. RESPIRATORY: Breath sounds equal bilaterally. No accessory muscle use. GASTROINTESTINAL: Abdomen soft, non-tender, nondistended. MUSCULOSKELETAL: No cyanosis, or edema. BACK: Nontender without obvious deformity. No CVA tenderness. A/P Problem List: (1) Pancytopenia ICD Code: D61.818 - Other pancytopenia Status: Acute (2) Acute myeloid leukemia ICD Code: C92.00 - Acute myeloblastic leukemia, not having achieved remission Status: Acute (3) Neutropenic fever ICD Code: D70.9 - Neutropenia, unspecified; R50.81 - Fever presenting with conditions classified elsewhere Status: Acute Assessment and Plan Assessment and Plan 56-year-old female admitted due to neutropenic fevers and pancytopenia related to AML and Chemotherapy. She needs improvement of the degree of her pancytopenia and needs to demonstrate stability of pancytopenia prior to consideration for discharge. Labs reviewed Currently pancytopenia is her primary problem. Continue to monitor labs. Labs ordered for further monitoring. Neutropenic fever Pancytopenia ID and Oncology following Continue cefepime Continue vancomycin Follow for fever pattern Thus far she has improvement in her fevers on antibiotics Neutropenic precautions Anemia Transfussion of 1 unit PRBC 04/20/17 Follow H/H AML Continue Rydapt Oncology following COPD No exacerbation PRN DuoNebs continued HTN Continue Norvasc Continue Coreg Continue Cozaar Continue Hydrochlorothiazide DVT Prophylaxis SCDs (due to degree of anemia, no anticoagulation at this time) Problem Qualifiers (1) Acute myeloid leukemia: Qualified Codes: C92.02 - Acute myeloblastic leukemia, in relapse Reinier Campos MD Apr 21, 2017 14:39
--- NOTE | 2017-04-21 15:04 | PD.ONC.PN ---
Subjective Subjective Remarks Afebrile overnight. patient resting in bed in nad. No complaints. Rested well overnight. Objective Data Date Time Temp Pulse Resp B/P (MAP) Pulse Ox O2 Delivery O2 Flow Rate FiO2 04/21/17 11:37 98.6 77 18 135/72 (93) 96 04/21/17 08:00 99.1 96 20 126/71 (89) 97 04/21/17 04:46 99.2 89 18 125/81 (96) 94 04/21/17 04:44 97.8 04/21/17 00:13 81 04/20/17 23:46 98.5 04/20/17 23:43 98.7 76 16 145/76 (99) 99 04/20/17 20:43 76 04/20/17 20:06 99.3 73 16 105/63 (77) 95 04/20/17 20:06 98.7 04/20/17 18:30 98.6 75 18 107/68 98 04/20/17 16:06 97.8 73 18 97 04/20/17 15:46 98.1 77 18 107/60 97 04/21/17 04/21/17 04/21/17 07:00 15:00 23:00 Intake Total 620 ml Balance 620 ml Result Diagram: 04/21/17 0450 04/20/17 2130 Laboratory Results Laboratory Tests Test 04/20/17 22:50 04/21/17 04:50 Blood Urea Nitrogen 15 MG/DL Creatinine 0.63 MG/DL Random Glucose 80 MG/DL Total Protein 5.9 GM/DL Albumin 2.8 GM/DL Calcium Level 8.2 MG/DL Alkaline Phosphatase 50 U/L Aspartate Amino Transf (AST/SGOT) 12 U/L Alanine Aminotransferase (ALT/SGPT) 27 U/L Total Bilirubin 1.3 MG/DL Sodium Level 141 MEQ/L Potassium Level 3.8 MEQ/L Chloride Level 107 MEQ/L Carbon Dioxide Level 28.1 MEQ/L Anion Gap 6 MEQ/L Estimat Glomerular Filtration Rate 97 ML/MIN Vancomycin Level Trough 17.0 MCG/ML White Blood Count 0.5 TH/MM3 Red Blood Count 2.72 MIL/MM3 Hemoglobin 8.5 GM/DL Hematocrit 25.0 % Mean Corpuscular Volume 91.7 FL Mean Corpuscular Hemoglobin 31.0 PG Mean Corpuscular Hemoglobin Concent 33.8 % Red Cell Distribution Width 20.9 % Platelet Count 38 TH/MM3 Mean Platelet Volume 8.3 FL CBC Comment AUTO DIFF Differential Total Cells Counted 100 Neutrophils % (Manual) 7 % Lymphocytes % 73 % Monocytes % 14 % Eosinophils % 6 % Neutrophils # (Manual) 0.0 TH/MM3 Differential Comment FINAL DIFF MANUAL Platelet Estimate LOW Platelet Morphology Comment ENLARGED Basophilic Stippling FAINT Culture Results Microbiology Date/Time Source Procedure Growth Status 04/18/17 16:30 Blood Peripheral Aerobic Blood Culture - Preliminary NO GROWTH IN 3 DAYS Resulted 04/18/17 16:30 Blood Peripheral Anaerobic Blood Culture - Preliminary NO GROWTH IN 3 DAYS Resulted 04/18/17 16:20 Blood Peripheral Aerobic Blood Culture - Preliminary NO GROWTH IN 3 DAYS Resulted 04/18/17 16:20 Blood Peripheral Anaerobic Blood Culture - Preliminary NO GROWTH IN 3 DAYS Resulted 04/18/17 16:20 Nasal Washing Influenza Types A,B Antigen (LAMAR) - Final NEGATIVE FOR FLU A AND B ANTIGEN.... Complete Administered Medications Medications (Trade) Dose Ordered Sig/Zeynep Route PRN Reason Start Time Stop Time Status Last Admin Dose Admin Sodium Chloride 1,000 ml @ 70 mls/hr [id number] IV 04/18/17 18:55 04/21/17 11:11 Sodium Chloride (NS Flush) 2 ml UNSCH PRN IV FLUSH FLUSH AFTER USING IV ACCESS 04/18/17 19:00 04/20/17 23:21 Sodium Chloride (NS Flush) 2 ml BID IV FLUSH 04/18/17 21:00 04/20/17 11:50 Ondansetron HCl (Zofran Inj) 4 mg Q6H PRN IVP NAUSEA OR VOMITING 04/18/17 19:00 04/21/17 09:05 Amlodipine Besylate (Norvasc) 5 mg DAILY PO 04/19/17 09:00 04/21/17 08:57 Carvedilol (Coreg) 3.125 mg DAILY PO 04/19/17 09:00 04/21/17 08:57 Losartan Potassium (Cozaar) 100 mg DAILY PO 04/19/17 09:00 04/21/17 08:57 Hydrochlorothiazide (Hydrodiuril) 25 mg DAILY PO 04/19/17 09:00 04/21/17 08:57 Cefepime HCl 2000 mg/Sodium Chloride 100 ml @ 200 mls/hr Q8H IV 04/19/17 01:00 04/21/17 09:22 Vancomycin HCl 1250 mg/Sodium Chloride 262.5 ml @ 250 mls/hr Q12H IV 04/19/17 11:00 04/21/17 11:10 Acetaminophen (Tylenol) 650 mg Q4H PRN PO SEE LABEL COMMENTS 04/20/17 09:00 04/20/17 14:15 Diphenhydramine HCl (Benadryl) 25 mg Q4H PRN PO SEE LABEL COMMENTS 04/20/17 09:00 04/20/17 15:40 Patient Own Medication PATIENT OWN MED: Midostau... BID PO 04/20/17 21:00 04/21/17 08:57 Diphenhydramine HCl (Benadryl Inj) 25 mg Q12H IV PUSH 04/20/17 23:00 04/21/17 11:11 Objective Remarks GENERAL: Pleasant middle aged female lying in bed resting. SKIN: Warm and dry. HEAD: Normocephalic. EYES: No injection or drainage. NECK: Supple, trachea midline. CARDIOVASCULAR: Regular rate and rhythm RESPIRATORY: Breath sounds equal bilaterally. No accessory muscle use. GASTROINTESTINAL: Abdomen soft, non-tender, nondistended. EXTREMITIES: No cyanosis NEUROLOGICAL: aox3. normal speech. moving all extremities. Assessment/Plan Problem List: (1) Neutropenic fever ICD Codes: D70.9 - Neutropenia, unspecified; R50.81 - Fever presenting with conditions classified elsewhere Status: Acute Plan: 04/21: continue antibiotics. await improvement of blood counts. --BC no growth --U/A negative --CXR no acute findings --on Cefepime + Vanco (2) Acute myeloid leukemia ICD Codes: C92.00 - Acute myeloblastic leukemia, not having achieved remission Status: Acute Plan: --on Dacogen + Rydapt. Disease course: August 2016: diagnosed with AML. induction chemo with Lary/Zuleyka-C, then CLAG chemo , then entered remission November 2016: consolidation chemotherapy with hidac and Rydapt. Fall 2016: referred to [facility] for bone marrow transplant. Prior to the transplant the bone marrow biopsy showed that she has a relapse of the leukemia. Now she is on Dacogen plus RYDAPT therapy. She so far had two cycles. The second cycle was 2 weeks ago and she on the second week of RYDAPT. (3) Pancytopenia ICD Codes: D61.818 - Other pancytopenia Status: Acute Plan: --transfuse if the hemoglobin is less than 8 and if the platelet count is less than 15 Assessment 56y/o female with relapsed AML, currently on Dacogen + Rydapt therapy, admitted for neutropenic fever. h/o COPD. Hypercholesterolemia. Hypertension. Irregular heartbeat. Cholecystectomy. Colon resection. Complete hysterectomy. Mzfcxa-G-Byer placement. Right foot surgery.. Colonoscopy. Attending Statement The exam, history, and the medical decision-making described in the above note were completed with the assistance of the mid-level provider. I reviewed and agree with the findings presented. I attest that I had a [id number] encounter with the patient on the same day, and personally performed and documented my assessment and findings in the medical record. No more fevers feels very tired BC neg home by wednesday Problem Qualifiers (1) Acute myeloid leukemia: Qualified Codes: C92.02 - Acute myeloblastic leukemia, in relapse Julianna Mcdaniel Apr 21, 2017 15:04 April Fonseca MD Apr 21, 2017 17:39
[2017-04-21] MEDS: ACETAMINOPHEN 325 MG TAB PO PRN (21:37)
[2017-04-22] VITALS (11 sets, daily range): BP systolic 97–140; BP diastolic 60–84; PULSE 68–105; RESP 16–18; TEMP 97.8–99.4; O2SAT 95–97
[2017-04-22] MEDS: CEFEPIME INJ 2,000 MG in SODIUM CHLORIDE 0.9% INJ 100 ML IV SCH ×3 (02:11→17:35)
[2017-04-22] MEDS: SODIUM CHLOR 0.9% 1000 ML INJ 1,000 ML IV SCH ×2 (02:11→17:35)
[2017-04-22 04:56] LABS: MEAN CELL VOLUME 91.6 FL (80.0-100.0); MEAN CORPUSCULAR HEMOGLOBIN 30.4 PG (27.0-34.0); MEAN CORPUSCULAR HGB CONC 33.2 % (32.0-36.0); PLATELET COUNT 41 TH/MM3 (150-450); RED BLOOD COUNT 2.84 MIL/MM3 (4.00-5.30); RED CELL DISTRIBUTION WIDTH 20.3 % (11.6-17.2); WHITE BLOOD COUNT 0.6 TH/MM3 (4.0-11.0)
[2017-04-22 05:00] LABS: HEMO FLAGS AUTO DIFF
[2017-04-22 05:17] LABS: ANION GAP 7 MEQ/L (5-15); AST (GOT) 11 U/L (15-37); BICARBONATE 28.8 MEQ/L (21.0-32.0); BLOOD UREA NITROGEN 11 MG/DL (7-18); CHLORIDE 105 MEQ/L (98-107); GLOMERULAR FILTRATION RATE 99 ML/MIN (>89); POTASSIUM 3.4 MEQ/L (3.5-5.1); SODIUM (NA) 141 MEQ/L (136-145)
[2017-04-22 05:20] LABS: ALKALINE PHOSPHATASE 54 U/L (45-117); ALT (GPT) 24 U/L (10-53); TOTAL BILIRUBIN ADULT 1.6 MG/DL (0.2-1.0)
[2017-04-22 08:04] LABS: POLYS (SEG NEUTROPHILS) 6 % (16-70); SCAN/DIFF FINAL DIFF MANUAL; WBC DIFF SAMPLE 33
[2017-04-22 08:05] LABS: PLATELET ESTIMATE SMEAR LOW (NORMAL); PLATELET MORPHOLOGY NORMAL (NORMAL)
[2017-04-22] MEDS: MIDOSTAURIN 25 MG PO SCH ×2 (08:43→21:05)
[2017-04-22] MEDS: SODIUM CHLORIDE 0.9% FLUSH 10 ML FLUSH IV FLUSH SCH ×2 (08:44→20:27)
[2017-04-22] MEDS: HYDROCHLOROTHIAZIDE 25 MG TAB PO SCH (08:44)
[2017-04-22] MEDS: CARVEDILOL 3.125 MG TAB PO SCH (08:44)
[2017-04-22] MEDS: amLODIPine BESYLATE 5 MG TAB PO SCH (08:45)
[2017-04-22] MEDS: LOSARTAN 50 MG TAB PO SCH (08:45)
[2017-04-22] MEDS: ONDANSETRON HCL 4 MG/2 ML VIAL IVP PRN ×2 (08:45→20:27)
[2017-04-22] MEDS ORDERED: ACETAMINOPHEN 325 MG TAB PO ONE (09:30)
--- NOTE | 2017-04-22 10:20 | PD.ONC.PN ---
Subjective Subjective Remarks Tmax 99.4 overnight. Patient resting in bed. Had headache last night and feels generally unwell today. Mild nausea Objective Data Date Time Temp Pulse Resp B/P (MAP) Pulse Ox O2 Delivery O2 Flow Rate FiO2 04/22/17 08:30 98.7 04/22/17 08:00 99.4 84 16 138/84 (102) 96 04/22/17 05:10 99.2 04/22/17 04:00 79 04/22/17 00:09 16 04/22/17 00:00 105 04/21/17 22:46 16 04/21/17 21:38 93 04/21/17 21:00 99.4 102 20 131/71 (91) 92 04/21/17 16:19 98.3 88 16 112/82 (92) 92 04/21/17 11:37 98.6 77 18 135/72 (93) 96 04/22/17 04/22/17 04/22/17 07:00 15:00 23:00 Intake Total 976 ml Balance 976 ml Result Diagram: 04/22/17 0433 04/22/17 0433 Laboratory Results Laboratory Tests Test 04/22/17 04:33 White Blood Count 0.6 TH/MM3 Red Blood Count 2.84 MIL/MM3 Hemoglobin 8.6 GM/DL Hematocrit 26.0 % Mean Corpuscular Volume 91.6 FL Mean Corpuscular Hemoglobin 30.4 PG Mean Corpuscular Hemoglobin Concent 33.2 % Red Cell Distribution Width 20.3 % Platelet Count 41 TH/MM3 Mean Platelet Volume 9.6 FL CBC Comment AUTO DIFF Differential Total Cells Counted 33 Neutrophils % (Manual) 6 % Lymphocytes % 91 % Monocytes % 3 % Neutrophils # (Manual) 0.0 TH/MM3 Differential Comment FINAL DIFF MANUAL Platelet Estimate LOW Platelet Morphology Comment NORMAL Blood Urea Nitrogen 11 MG/DL Creatinine 0.62 MG/DL Random Glucose 94 MG/DL Total Protein 6.3 GM/DL Albumin 3.0 GM/DL Calcium Level 8.8 MG/DL Alkaline Phosphatase 54 U/L Aspartate Amino Transf (AST/SGOT) 11 U/L Alanine Aminotransferase (ALT/SGPT) 24 U/L Total Bilirubin 1.6 MG/DL Sodium Level 141 MEQ/L Potassium Level 3.4 MEQ/L Chloride Level 105 MEQ/L Carbon Dioxide Level 28.8 MEQ/L Anion Gap 7 MEQ/L Estimat Glomerular Filtration Rate 99 ML/MIN Administered Medications Medications (Trade) Dose Ordered Sig/Zeynep Route PRN Reason Start Time Stop Time Status Last Admin Dose Admin Sodium Chloride 1,000 ml @ 70 mls/hr [id number] IV 04/18/17 18:55 04/21/17 11:11 Sodium Chloride (NS Flush) 2 ml UNSCH PRN IV FLUSH FLUSH AFTER USING IV ACCESS 04/18/17 19:00 04/20/17 23:21 Sodium Chloride (NS Flush) 2 ml BID IV FLUSH 04/18/17 21:00 04/21/17 21:38 Acetaminophen (Tylenol) 650 mg Q4H PRN PO TEMP > 100.4 04/18/17 19:00 04/21/17 21:37 Ondansetron HCl (Zofran Inj) 4 mg Q6H PRN IVP NAUSEA OR VOMITING 04/18/17 19:00 04/22/17 08:45 Amlodipine Besylate (Norvasc) 5 mg DAILY PO 04/19/17 09:00 04/22/17 08:45 Carvedilol (Coreg) 3.125 mg DAILY PO 04/19/17 09:00 04/22/17 08:44 Losartan Potassium (Cozaar) 100 mg DAILY PO 04/19/17 09:00 04/22/17 08:45 Hydrochlorothiazide (Hydrodiuril) 25 mg DAILY PO 04/19/17 09:00 04/22/17 08:44 Cefepime HCl 2000 mg/Sodium Chloride 100 ml @ 200 mls/hr Q8H IV 04/19/17 01:00 04/22/17 08:44 Vancomycin HCl 1250 mg/Sodium Chloride 262.5 ml @ 250 mls/hr Q12H IV 04/19/17 11:00 04/21/17 21:38 Acetaminophen (Tylenol) 650 mg Q4H PRN PO SEE LABEL COMMENTS 04/20/17 09:00 04/20/17 14:15 Diphenhydramine HCl (Benadryl) 25 mg Q4H PRN PO SEE LABEL COMMENTS 04/20/17 09:00 04/20/17 15:40 Patient Own Medication PATIENT OWN MED: Riteshau... BID PO 04/20/17 21:00 04/22/17 08:43 Diphenhydramine HCl (Benadryl Inj) 25 mg Q12H IV PUSH 04/20/17 23:00 04/21/17 21:36 Objective Remarks GENERAL: Middle aged female lying in bed in nad. SKIN: Warm and dry. HEAD: Normocephalic. EYES: No injection or drainage. NECK: Supple, trachea midline. CARDIOVASCULAR: Regular rate and rhythm RESPIRATORY: Breath sounds equal bilaterally. No accessory muscle use. GASTROINTESTINAL: Abdomen soft, non-tender, nondistended. EXTREMITIES: No cyanosis NEUROLOGICAL: awake and alert, normal speech Assessment/Plan Problem List: (1) Neutropenic fever ICD Codes: D70.9 - Neutropenia, unspecified; R50.81 - Fever presenting with conditions classified elsewhere Status: Acute Plan: 04/22: obtain repeat blood cultures for fever. give Tylenol. obtain u/a. --BC no growth --U/A negative --CXR no acute findings --on Cefepime + Vanco (2) Acute myeloid leukemia ICD Codes: C92.00 - Acute myeloblastic leukemia, not having achieved remission Status: Acute Plan: --on Dacogen + Rydapt. Disease course: August 2016: diagnosed with AML. induction chemo with Lary/Zuleyka-C, then CLAG chemo , then entered remission November 2016: consolidation chemotherapy with hidac and Rydapt. Fall 2016: referred to [facility] for bone marrow transplant. Prior to the transplant the bone marrow biopsy showed that she has a relapse of the leukemia. Now she is on Dacogen plus RYDAPT therapy. She so far had two cycles. The second cycle was 2 weeks ago and she on the second week of RYDAPT. (3) Pancytopenia ICD Codes: D61.818 - Other pancytopenia Status: Acute Plan: --transfuse if the hemoglobin is less than 8 and if the platelet count is less than 15 Assessment 56y/o female with relapsed AML, currently on Dacogen + Rydapt therapy, admitted for neutropenic fever. h/o COPD. Hypercholesterolemia. Hypertension. Irregular heartbeat. Cholecystectomy. Colon resection. Complete hysterectomy. Lubsyq-X-Naox placement. Right foot surgery.. Colonoscopy. Attending Statement The exam, history, and the medical decision-making described in the above note were completed with the assistance of the mid-level provider. I reviewed and agree with the findings presented. I attest that I had a [id number] encounter with the patient on the same day, and personally performed and documented my assessment and findings in the medical record. c/o low grade fever , nausea and fatigue. ANC 0 continue a/b Problem Qualifiers (1) Acute myeloid leukemia: Qualified Codes: C92.02 - Acute myeloblastic leukemia, in relapse Julianna Mcdaniel Apr 22, 2017 10:20 April Fonseca MD Apr 22, 2017 19:51
[2017-04-22] MEDS: VANCOMYCIN INJ 1,250 MG in SODIUM CHLOR 0.9% 250 ML INJ 250 ML IV SCH ×2 (10:30→22:05)
[2017-04-22] MEDS: diphenhydrAMINE HCL 50 MG/ML VIAL IV PUSH SCH ×2 (10:30→22:57)
[2017-04-22 11:58] LABS: BACTERIA, URINE RARE /hpf; BLOOD, URINE NEG (NEG); COMMENT (UR) CULT NOT INDICATED; CULTURE IF INDICATED CULT NOT INDICATED; GLUCOSE,URINE NEG (NEG); KETONE, URINE NEG (NEG); MUCUS URINE FEW /lpf (OCC); NITRITE,URINE NEG (NEG); PH, URINE 6.5 (5.0-8.5); SQUAMOUS EPITHELIAL CELL URINE <1 /hpf (0-5); URINE COLOR YELLOW (YELLW/STRAW)
--- NOTE | 2017-04-22 12:06 | HHI.IDPN ---
Note Infectious Disease Note Patient notes HOOPER and nausea last evening. Says she feels better now. sitting on side of the bed. Afebrile. Denies chills, cough, SOB. No visual changes. No throat soreness. Patient noted that she started to get nausea one week ago and subsequently she felt decreased energy and some dyspnea with exertion and later on she developed low-grade fever. PAST MEDICAL HISTORY 1. Acute myelogenous leukemia. 2. Lupus. 3. Rheumatoid arthritis. 4. COPD. 5. Port placement. 6. Cholecystectomy. 7. Tonsillectomy. 8. Cervical cancer. 9. Bunion of the right foot. 10. History of C. Difficile in November 2016. ALLERGIES CEFEPIME. SULFA. MEDICATIONS 1. Cefepime. 2. Vancomycin. Current Medications Medications (Trade) Dose Ordered Sig/Zeynep Route PRN Reason Start Time Stop Time Status Last Admin Dose Admin Sodium Chloride 1,000 ml @ 70 mls/hr [id number] IV 04/18/17 18:55 04/21/17 11:11 Sodium Chloride (NS Flush) 2 ml UNSCH PRN IV FLUSH FLUSH AFTER USING IV ACCESS 04/18/17 19:00 04/20/17 23:21 Sodium Chloride (NS Flush) 2 ml BID IV FLUSH 04/18/17 21:00 04/21/17 21:38 Acetaminophen (Tylenol) 650 mg Q4H PRN PO TEMP > 100.4 04/18/17 19:00 04/21/17 21:37 Ondansetron HCl (Zofran Inj) 4 mg Q6H PRN IVP NAUSEA OR VOMITING 04/18/17 19:00 04/22/17 08:45 Naloxone HCl (Narcan Inj) 0.4 mg UNSCH PRN IV PUSH SEE LABEL COMMENTS 04/18/17 19:00 Magnesium Hydroxide (Milk Of Magnesia Liq) 30 ml Q12H PRN PO Mild constipation 04/18/17 19:00 Pharmacy Profile Note 0 ml @ 0 mls/hr UNSCH OTHER 04/18/17 19:00 Amlodipine Besylate (Norvasc) 5 mg DAILY PO 04/19/17 09:00 04/22/17 08:45 Carvedilol (Coreg) 3.125 mg DAILY PO 04/19/17 09:00 04/22/17 08:44 Albuterol/ Ipratropium (Duoneb Neb) 1 ampule Q4HR NEB PRN NEB SOB/Wheezing 04/18/17 20:00 Losartan Potassium (Cozaar) 100 mg DAILY PO 04/19/17 09:00 04/22/17 08:45 Hydrochlorothiazide (Hydrodiuril) 25 mg DAILY PO 04/19/17 09:00 04/22/17 08:44 Cefepime HCl 2000 mg/Sodium Chloride 100 ml @ 200 mls/hr Q8H IV 04/19/17 01:00 04/22/17 08:44 Vancomycin HCl 1250 mg/Sodium Chloride 262.5 ml @ 250 mls/hr Q12H IV 04/19/17 11:00 04/22/17 10:30 Acetaminophen (Tylenol) 650 mg Q4H PRN PO SEE LABEL COMMENTS 04/20/17 09:00 04/20/17 14:15 Diphenhydramine HCl (Benadryl) 25 mg Q4H PRN PO SEE LABEL COMMENTS 04/20/17 09:00 04/20/17 15:40 Patient Own Medication PATIENT OWN MED: Midostau... BID PO 04/20/17 21:00 04/22/17 08:43 Diphenhydramine HCl (Benadryl Inj) 25 mg Q12H IV PUSH 04/20/17 23:00 04/22/17 10:30 OBJECTIVE: Vital Signs Date Time Temp Pulse Resp B/P (MAP) Pulse Ox O2 Delivery O2 Flow Rate FiO2 04/22/17 08:30 98.7 04/22/17 08:00 99.4 84 16 138/84 (102) 96 04/22/17 05:10 99.2 04/22/17 04:00 79 04/22/17 00:09 16 04/22/17 00:00 105 04/21/17 22:46 16 04/21/17 21:38 93 04/21/17 21:00 99.4 102 20 131/71 (91) 92 04/21/17 16:19 98.3 88 16 112/82 (92) 92 Laboratory Tests Test 04/21/17 04:50 04/22/17 04:33 White Blood Count 0.5 TH/MM3 0.6 TH/MM3 Red Blood Count 2.72 MIL/MM3 2.84 MIL/MM3 Hemoglobin 8.5 GM/DL 8.6 GM/DL Hematocrit 25.0 % 26.0 % Mean Corpuscular Volume 91.7 FL 91.6 FL Mean Corpuscular Hemoglobin 31.0 PG 30.4 PG Mean Corpuscular Hemoglobin Concent 33.8 % 33.2 % Red Cell Distribution Width 20.9 % 20.3 % Platelet Count 38 TH/MM3 41 TH/MM3 Mean Platelet Volume 8.3 FL 9.6 FL CBC Comment AUTO DIFF AUTO DIFF Differential Total Cells Counted 100 33 Neutrophils % (Manual) 7 % 6 % Lymphocytes % 73 % 91 % Monocytes % 14 % 3 % Eosinophils % 6 % Neutrophils # (Manual) 0.0 TH/MM3 0.0 TH/MM3 Differential Comment FINAL DIFF MANUAL FINAL DIFF MANUAL Platelet Estimate LOW LOW Platelet Morphology Comment ENLARGED NORMAL Basophilic Stippling FAINT Laboratory Tests Test 04/20/17 22:50 04/22/17 04:33 Blood Urea Nitrogen 15 MG/DL 11 MG/DL Creatinine 0.63 MG/DL 0.62 MG/DL Random Glucose 80 MG/DL 94 MG/DL Total Protein 5.9 GM/DL 6.3 GM/DL Albumin 2.8 GM/DL 3.0 GM/DL Calcium Level 8.2 MG/DL 8.8 MG/DL Alkaline Phosphatase 50 U/L 54 U/L Aspartate Amino Transf (AST/SGOT) 12 U/L 11 U/L Alanine Aminotransferase (ALT/SGPT) 27 U/L 24 U/L Total Bilirubin 1.3 MG/DL 1.6 MG/DL Sodium Level 141 MEQ/L 141 MEQ/L Potassium Level 3.8 MEQ/L 3.4 MEQ/L Chloride Level 107 MEQ/L 105 MEQ/L Carbon Dioxide Level 28.1 MEQ/L 28.8 MEQ/L Anion Gap 6 MEQ/L 7 MEQ/L Estimat Glomerular Filtration Rate 97 ML/MIN 99 ML/MIN Microbiology Date/Time Source Procedure Growth Status 04/22/17 10:50 Blood Peripheral Aerobic Blood Culture Pending Received 04/22/17 10:50 Blood Peripheral Anaerobic Blood Culture Pending Received 04/22/17 10:45 Blood Line Aerobic Blood Culture Pending Received 04/22/17 10:45 Blood Line Anaerobic Blood Culture Pending Received PHYSICAL EXAMINATION GENERAL: No acute distress. Awake, alert and oriented. HEENT: No icterus. No conjunctival erythema. Oropharynx: moist mucosa without lesions. NECK: Supple. No adenopathy. LUNGS: Clear. HEART: Regular S1 and S2. No murmurs, no rubs, no gallops. ABDOMEN: Bowel sounds present. Soft. No tenderness. EXTREMITIES: No clubbing, cyanosis or edema. SKIN: No rash. NEUROLOGIC: No gross focal findings. PSYCHIATRIC: Calm and cooperative. IMPRESSION 1. Neutropenic fever. Cultures negative. 2. Pancytopenia persistent. 3. AML. RECOMMENDATIONS 1. Continue cefepime. 2. Continue vancomycin. 3. Monitor temperature and blood counts. 4. Monitor clinical status. Jim Grande MD Apr 22, 2017 12:06
--- NOTE | 2017-04-22 16:42 | HHI.PR ---
Subjective Remarks Patient continues to have fevers. However she denies cough, shortness of breath , dysuria. She states she feels at her baseline "my normal feisty self." Objective Vitals Vital Signs Date Time Temp Pulse Resp B/P (MAP) Pulse Ox O2 Delivery O2 Flow Rate FiO2 04/22/17 12:00 97.8 79 16 97/64 (75) 96 04/22/17 08:30 98.7 04/22/17 08:00 99.4 84 16 138/84 (102) 96 04/22/17 05:10 99.2 04/22/17 04:00 79 04/22/17 00:09 16 04/22/17 00:00 105 04/21/17 22:46 16 04/21/17 21:38 93 04/21/17 21:00 99.4 102 20 131/71 (91) 92 I/O 04/21/17 04/21/17 04/21/17 04/22/17 04/22/17 04/22/17 07:00 15:00 23:00 07:00 15:00 23:00 Intake Total 620 ml 1200 ml 976 ml Balance 620 ml 1200 ml 976 ml Intake Oral 240 ml 1200 ml IV Total 380 ml 976 ml # Voids 2 7 # Bowel Movements 2 Result Diagram: 04/22/17 04304/22/17 0433 A/P Problem List: (1) Neutropenic fever ICD Code: D70.9 - Neutropenia, unspecified; R50.81 - Fever presenting with conditions classified elsewhere Status: Acute (2) Acute myeloid leukemia ICD Code: C92.00 - Acute myeloblastic leukemia, not having achieved remission Status: Acute (3) Pancytopenia ICD Code: D61.818 - Other pancytopenia Status: Acute Assessment and Plan 56-year-old female admitted due to neutropenic fevers and pancytopenia related to AML and Chemotherapy. She needs improvement of the degree of her pancytopenia and needs to demonstrate stability of pancytopenia prior to consideration for discharge. Labs reviewed Currently pancytopenia is her primary problem. Continue to monitor labs. Labs ordered for further monitoring. Neutropenic fever Pancytopenia ID and Oncology following Continue cefepime Continue vancomycin Follow for fever pattern Neutropenic precautions Anemia Transfussion of 1 unit PRBC 04/20/17 Follow H/H AML Continue Rydapt Oncology following COPD No exacerbation PRN DuoNebs continued HTN Continue Norvasc Continue Coreg Continue Cozaar Continue Hydrochlorothiazide DVT Prophylaxis SCDs Problem Qualifiers (1) Acute myeloid leukemia: Qualified Codes: C92.02 - Acute myeloblastic leukemia, in relapse Maggie Whitney MD Apr 22, 2017 16:42
[2017-04-22] MEDS: ACETAMINOPHEN 325 MG TAB PO PRN (22:04)
[2017-04-22] MEDS: diphenhydrAMINE HCL 25 MG CAP PO PRN (22:05)
[2017-04-23] VITALS: PULSE 87
[2017-04-23 01:43] VITALS: TEMP 98.6
[2017-04-23] MEDS: CEFEPIME INJ 2,000 MG in SODIUM CHLORIDE 0.9% INJ 100 ML IV SCH ×2 (01:44→09:34)
[2017-04-23] MEDS: SODIUM CHLOR 0.9% 1000 ML INJ 1,000 ML IV SCH (03:11)
[2017-04-23 04:26] VITALS: BP 121/73; PULSE 88; RESP 20; TEMP 99.1; O2SAT 94
[2017-04-23 06:15] LABS: HEMATOCRIT 24.9 % (35.0-46.0); MEAN CELL VOLUME 91.4 FL (80.0-100.0); MEAN CORPUSCULAR HEMOGLOBIN 30.4 PG (27.0-34.0); MEAN CORPUSCULAR HGB CONC 33.2 % (32.0-36.0); PLATELET COUNT 39 TH/MM3 (150-450); RED BLOOD COUNT 2.73 MIL/MM3 (4.00-5.30); RED CELL DISTRIBUTION WIDTH 19.8 % (11.6-17.2); WHITE BLOOD COUNT 0.7 TH/MM3 (4.0-11.0)
[2017-04-23 06:20] LABS: HEMO FLAGS AUTO DIFF
[2017-04-23 06:29] LABS: BICARBONATE 27.9 MEQ/L (21.0-32.0); POTASSIUM 3.3 MEQ/L (3.5-5.1)
[2017-04-23 07:18] LABS: BASOPHILS 1 % (0-2); BLASTS 2 % (0-0); CORRECTED NUCLEATED RBC 2 /100 WBC (0-0); EOSINOPHILS 7 % (0-4); NEUTROPHIL # MANUAL DIFF 0.1 TH/MM3 (1.8-7.7); PLATELET ESTIMATE SMEAR LOW (NORMAL); PLATELET MORPHOLOGY NORMAL (NORMAL); POLYS (SEG NEUTROPHILS) 9 % (16-70); SCAN/DIFF FINAL DIFF MANUAL; WBC DIFF SAMPLE 100
[2017-04-23] MEDS: SODIUM CHLORIDE 0.9% FLUSH 10 ML FLUSH IV FLUSH SCH (09:00)
[2017-04-23 09:15] VITALS: BP 132/87; PULSE 87; RESP 18; TEMP 98.5; O2SAT 99
[2017-04-23] MEDS: HYDROCHLOROTHIAZIDE 25 MG TAB PO SCH (09:30)
[2017-04-23] MEDS: MIDOSTAURIN 25 MG PO SCH (09:30)
[2017-04-23] MEDS: CARVEDILOL 3.125 MG TAB PO SCH (09:30)
[2017-04-23] MEDS: LOSARTAN 50 MG TAB PO SCH (09:30)
--- NOTE | 2017-04-23 09:33 | PD.ONC.PN ---
Subjective Subjective Remarks Afebrile overnight. Patient resting in bed. Eager to go home. Feels much better today. Objective Data Date Time Temp Pulse Resp B/P (MAP) Pulse Ox O2 Delivery O2 Flow Rate FiO2 04/23/17 09:15 98.5 87 18 132/87 (102) 99 04/23/17 04:26 99.1 88 20 121/73 (89) 94 04/23/17 01:43 98.6 04/23/17 00:00 87 04/22/17 23:53 16 04/22/17 20:38 97.9 68 16 121/74 (90) 95 04/22/17 20:27 88 04/22/17 20:26 99.2 87 16 134/60 (84) 95 04/22/17 17:33 98.8 84 18 140/73 (95) 97 04/22/17 12:00 97.8 79 16 97/64 (75) 96 04/23/17 04/23/17 04/23/17 07:00 15:00 23:00 Intake Total 1580 ml Balance 1580 ml Result Diagram: 04/23/17 0440 04/23/17 0440 Laboratory Results Laboratory Tests Test 04/22/17 11:47 04/23/17 04:40 Urine Color YELLOW Urine Turbidity CLEAR Urine pH 6.5 Urine Specific [place] 1.011 Urine Protein NEG mg/dL Urine Glucose (UA) NEG mg/dL Urine Ketones NEG mg/dL Urine Occult Blood NEG Urine Nitrite NEG Urine Bilirubin NEG Urine Urobilinogen LESS THAN 2.0 MG/DL Urine Leukocyte Esterase NEG Urine RBC LESS THAN 1 /hpf Urine WBC 3 /hpf Urine Squamous Epithelial Cells <1 /hpf Urine Bacteria RARE /hpf Urine Mucus FEW /lpf Microscopic Urinalysis Comment CULT NOT INDICATED White Blood Count 0.7 TH/MM3 Red Blood Count 2.73 MIL/MM3 Hemoglobin 8.3 GM/DL Hematocrit 24.9 % Mean Corpuscular Volume 91.4 FL Mean Corpuscular Hemoglobin 30.4 PG Mean Corpuscular Hemoglobin Concent 33.2 % Red Cell Distribution Width 19.8 % Platelet Count 39 TH/MM3 Mean Platelet Volume 9.1 FL CBC Comment AUTO DIFF Differential Total Cells Counted 100 Neutrophils % (Manual) 9 % Lymphocytes % 72 % Monocytes % 9 % Eosinophils % 7 % Basophils % 1 % Neutrophils # (Manual) 0.1 TH/MM3 Nucleated Red Blood Cells 2 /100 WBC Differential Comment FINAL DIFF MANUAL Blastocytes 2 % Platelet Estimate LOW Platelet Morphology Comment NORMAL Blood Urea Nitrogen 9 MG/DL Creatinine 0.57 MG/DL Random Glucose 93 MG/DL Calcium Level 8.8 MG/DL Sodium Level 140 MEQ/L Potassium Level 3.3 MEQ/L Chloride Level 105 MEQ/L Carbon Dioxide Level 27.9 MEQ/L Anion Gap 7 MEQ/L Estimat Glomerular Filtration Rate 109 ML/MIN Culture Results Microbiology Date/Time Source Procedure Growth Status 04/22/17 10:50 Blood Peripheral Aerobic Blood Culture Pending Received 04/22/17 10:50 Blood Peripheral Anaerobic Blood Culture Pending Received 04/22/17 10:45 Blood Line Aerobic Blood Culture Pending Received 04/22/17 10:45 Blood Line Anaerobic Blood Culture Pending Received Administered Medications Medications (Trade) Dose Ordered Sig/Zeynep Route PRN Reason Start Time Stop Time Status Last Admin Dose Admin Sodium Chloride 1,000 ml @ 70 mls/hr [id number] IV 04/18/17 18:55 04/23/17 03:11 Sodium Chloride (NS Flush) 2 ml UNSCH PRN IV FLUSH FLUSH AFTER USING IV ACCESS 04/18/17 19:00 04/20/17 23:21 Sodium Chloride (NS Flush) 2 ml BID IV FLUSH 04/18/17 21:00 04/22/17 20:27 Acetaminophen (Tylenol) 650 mg Q4H PRN PO TEMP > 100.4 04/18/17 19:00 04/22/17 22:04 Ondansetron HCl (Zofran Inj) 4 mg Q6H PRN IVP NAUSEA OR VOMITING 04/18/17 19:00 04/22/17 20:27 Amlodipine Besylate (Norvasc) 5 mg DAILY PO 04/19/17 09:00 04/22/17 08:45 Carvedilol (Coreg) 3.125 mg DAILY PO 04/19/17 09:00 04/22/17 08:44 Losartan Potassium (Cozaar) 100 mg DAILY PO 04/19/17 09:00 04/22/17 08:45 Hydrochlorothiazide (Hydrodiuril) 25 mg DAILY PO 04/19/17 09:00 04/22/17 08:44 Cefepime HCl 2000 mg/Sodium Chloride 100 ml @ 200 mls/hr Q8H IV 04/19/17 01:00 04/23/17 01:44 Vancomycin HCl 1250 mg/Sodium Chloride 262.5 ml @ 250 mls/hr Q12H IV 04/19/17 11:00 04/22/17 22:05 Acetaminophen (Tylenol) 650 mg Q4H PRN PO SEE LABEL COMMENTS 04/20/17 09:00 04/20/17 14:15 Patient Own Medication PATIENT OWN MED: Midostau... BID PO 04/20/17 21:00 04/22/17 21:05 Diphenhydramine HCl (Benadryl Inj) 25 mg Q12H IV PUSH 04/20/17 23:00 04/22/17 10:30 Objective Remarks GENERAL: Middle aged female sitting up in chair next to bed in [facility]. SKIN: Warm and dry. HEAD: Normocephalic. EYES: No injection or drainage. NECK: Supple, trachea midline. CARDIOVASCULAR: Regular rate and rhythm RESPIRATORY: Breath sounds equal bilaterally. No accessory muscle use. GASTROINTESTINAL: Abdomen soft, non-tender, nondistended. EXTREMITIES: No cyanosis NEUROLOGICAL: awake and alert, normal speech. moving all extremities. Assessment/Plan Problem List: (1) Neutropenic fever ICD Codes: D70.9 - Neutropenia, unspecified; R50.81 - Fever presenting with conditions classified elsewhere Status: Acute Plan: 04/23: patient neutrophil count remains zero and we do not expect this to recover. patient would like to go home for [place]. would recommend discharging on Levaquin. She will return to the hospital immediately for fever. we will obtain weekly CBC on outpatient basis. --BC no growth --U/A negative --CXR no acute findings --on Cefepime + Vanco (2) Acute myeloid leukemia ICD Codes: C92.00 - Acute myeloblastic leukemia, not having achieved remission Status: Acute Plan: --on Dacogen + Rydapt. Disease course: August 2016: diagnosed with AML. induction chemo with Lary/Zuleyka-C, then CLAG chemo , then entered remission November 2016: consolidation chemotherapy with hidac and Rydapt. Fall 2016: referred to [facility] for bone marrow transplant. Prior to the transplant the bone marrow biopsy showed that she has a relapse of the leukemia. Now she is on Dacogen plus RYDAPT therapy. She so far had two cycles. The second cycle was 2 weeks ago and she on the second week of RYDAPT. (3) Pancytopenia ICD Codes: D61.818 - Other pancytopenia Status: Acute Plan: --transfuse if the hemoglobin is less than 8 and if the platelet count is less than 15 Assessment 56y/o female with relapsed AML, currently on Dacogen + Rydapt therapy, admitted for neutropenic fever. h/o COPD. Hypercholesterolemia. Hypertension. Irregular heartbeat. Cholecystectomy. Colon resection. Complete hysterectomy. Wulytm-M-Leka placement. Right foot surgery.. Colonoscopy. Attending Statement The exam, history, and the medical decision-making described in the above note were completed with the assistance of the mid-level provider. I reviewed and agree with the findings presented. I attest that I had a [id number] encounter with the patient on the same day, and personally performed and documented my assessment and findings in the medical record. Feels better wants to go home afebrile. BC neg ok to d/c monitor labs weekly at office. pt will have repeat [facility] at [facility] after sudha. If she is in remission then will have BMT otherwise will need reinduction chemo CLAG-M / Rydapt Problem Qualifiers (1) Acute myeloid leukemia: Qualified Codes: C92.02 - Acute myeloblastic leukemia, in relapse Julianna Mcdaniel Apr 23, 2017 09:33 April Fonseca MD Apr 23, 2017 10:12
[2017-04-23] MEDS: amLODIPine BESYLATE 5 MG TAB PO SCH (09:34)
[2017-04-23] MEDS: ONDANSETRON HCL 4 MG/2 ML VIAL IVP PRN (09:46)
--- NOTE | 2017-04-23 10:34 | HHI.IDPN ---
Note Infectious Disease Note Patient says she feels well. No complaints. Afebrile. Denies chills, cough, SOB. Patient noted that she started to get nausea one week ago and subsequently she felt decreased energy and some dyspnea with exertion and later on she developed low-grade fever. PAST MEDICAL HISTORY 1. Acute myelogenous leukemia. 2. Lupus. 3. Rheumatoid arthritis. 4. COPD. 5. Port placement. 6. Cholecystectomy. 7. Tonsillectomy. 8. Cervical cancer. 9. Bunion of the right foot. 10. History of C. Difficile in November 2016. ALLERGIES CEFEPIME. caused HOOPER. SULFA. MEDICATIONS 1. Cefepime. 2. Vancomycin. Current Medications Medications (Trade) Dose Ordered Sig/Zeynep Route PRN Reason Start Time Stop Time Status Last Admin Dose Admin Sodium Chloride 1,000 ml @ 70 mls/hr [id number] IV 04/18/17 18:55 04/23/17 03:11 Sodium Chloride (NS Flush) 2 ml UNSCH PRN IV FLUSH FLUSH AFTER USING IV ACCESS 04/18/17 19:00 04/20/17 23:21 Sodium Chloride (NS Flush) 2 ml BID IV FLUSH 04/18/17 21:00 04/22/17 20:27 Acetaminophen (Tylenol) 650 mg Q4H PRN PO TEMP > 100.4 04/18/17 19:00 04/22/17 22:04 Ondansetron HCl (Zofran Inj) 4 mg Q6H PRN IVP NAUSEA OR VOMITING 04/18/17 19:00 04/23/17 09:46 Naloxone HCl (Narcan Inj) 0.4 mg UNSCH PRN IV PUSH SEE LABEL COMMENTS 04/18/17 19:00 Magnesium Hydroxide (Milk Of Magnjamie Liq) 30 ml Q12H PRN PO Mild constipation 04/18/17 19:00 Pharmacy Profile Note 0 ml @ 0 mls/hr UNSCH OTHER 04/18/17 19:00 Amlodipine Besylate (Norvasc) 5 mg DAILY PO 04/19/17 09:00 04/23/17 09:34 Carvedilol (Coreg) 3.125 mg DAILY PO 04/19/17 09:00 04/23/17 09:30 Albuterol/ Ipratropium (Duoneb Neb) 1 ampule Q4HR NEB PRN NEB SOB/Wheezing 04/18/17 20:00 Losartan Potassium (Cozaar) 100 mg DAILY PO 04/19/17 09:00 04/23/17 09:30 Hydrochlorothiazide (Hydrodiuril) 25 mg DAILY PO 04/19/17 09:00 04/23/17 09:30 Cefepime HCl 2000 mg/Sodium Chloride 100 ml @ 200 mls/hr Q8H IV 04/19/17 01:00 04/23/17 09:34 Vancomycin HCl 1250 mg/Sodium Chloride 262.5 ml @ 250 mls/hr Q12H IV 04/19/17 11:00 04/22/17 22:05 Acetaminophen (Tylenol) 650 mg Q4H PRN PO SEE LABEL COMMENTS 04/20/17 09:00 04/20/17 14:15 Patient Own Medication PATIENT OWN MED: Midostau... BID PO 04/20/17 21:00 04/23/17 09:30 Diphenhydramine HCl (Benadryl Inj) 25 mg Q12H IV PUSH 04/20/17 23:00 04/22/17 10:30 OBJECTIVE: Vital Signs Date Time Temp Pulse Resp B/P (MAP) Pulse Ox O2 Delivery O2 Flow Rate FiO2 04/23/17 09:15 98.5 87 18 132/87 (102) 99 04/23/17 04:26 99.1 88 20 121/73 (89) 94 04/23/17 01:43 98.6 04/23/17 00:00 87 04/22/17 23:53 16 04/22/17 20:38 97.9 68 16 121/74 (90) 95 04/22/17 20:27 88 04/22/17 20:26 99.2 87 16 134/60 (84) 95 04/22/17 17:33 98.8 84 18 140/73 (95) 97 04/22/17 12:00 97.8 79 16 97/64 (75) 96 Laboratory Tests Test 04/22/17 04:33 04/23/17 04:40 White Blood Count 0.6 TH/MM3 0.7 TH/MM3 Red Blood Count 2.84 MIL/MM3 2.73 MIL/MM3 Hemoglobin 8.6 GM/DL 8.3 GM/DL Hematocrit 26.0 % 24.9 % Mean Corpuscular Volume 91.6 FL 91.4 FL Mean Corpuscular Hemoglobin 30.4 PG 30.4 PG Mean Corpuscular Hemoglobin Concent 33.2 % 33.2 % Red Cell Distribution Width 20.3 % 19.8 % Platelet Count 41 TH/MM3 39 TH/MM3 Mean Platelet Volume 9.6 FL 9.1 FL CBC Comment AUTO DIFF AUTO DIFF Differential Total Cells Counted 33 100 Neutrophils % (Manual) 6 % 9 % Lymphocytes % 91 % 72 % Monocytes % 3 % 9 % Neutrophils # (Manual) 0.0 TH/MM3 0.1 TH/MM3 Differential Comment FINAL DIFF MANUAL FINAL DIFF MANUAL Platelet Estimate LOW LOW Platelet Morphology Comment NORMAL NORMAL Eosinophils % 7 % Basophils % 1 % Nucleated Red Blood Cells 2 /100 WBC Blastocytes 2 % Laboratory Tests Test 04/22/17 04:33 04/23/17 04:40 Blood Urea Nitrogen 11 MG/DL 9 MG/DL Creatinine 0.62 MG/DL 0.57 MG/DL Random Glucose 94 MG/DL 93 MG/DL Total Protein 6.3 GM/DL Albumin 3.0 GM/DL Calcium Level 8.8 MG/DL 8.8 MG/DL Alkaline Phosphatase 54 U/L Aspartate Amino Transf (AST/SGOT) 11 U/L Alanine Aminotransferase (ALT/SGPT) 24 U/L Total Bilirubin 1.6 MG/DL Sodium Level 141 MEQ/L 140 MEQ/L Potassium Level 3.4 MEQ/L 3.3 MEQ/L Chloride Level 105 MEQ/L 105 MEQ/L Carbon Dioxide Level 28.8 MEQ/L 27.9 MEQ/L Anion Gap 7 MEQ/L 7 MEQ/L Estimat Glomerular Filtration Rate 99 ML/MIN 109 ML/MIN Microbiology Date/Time Source Procedure Growth Status 04/22/17 10:50 Blood Peripheral Aerobic Blood Culture Pending Received 04/22/17 10:50 Blood Peripheral Anaerobic Blood Culture Pending Received 04/22/17 10:45 Blood Line Aerobic Blood Culture Pending Received 04/22/17 10:45 Blood Line Anaerobic Blood Culture Pending Received IMAGING: Chest X-Ray 04/18/17 1614 Signed Impressions: Service Date/Time: Tuesday, April 18, 2017 16:38 - CONCLUSION: No acute disease. No significant change has occurred. Alcides Longoria MD PHYSICAL EXAMINATION GENERAL: Awake, alert and oriented. HEENT: No icterus. No conjunctival erythema. Oropharynx reveals moist mucosa. No lesions. NECK: Supple. No adenopathy. LUNGS: Clear breath sounds. HEART: Regular S1 and S2. No murmurs, no rubs, no gallops. ABDOMEN: Bowel sounds present. Soft. No tenderness. EXTREMITIES: No clubbing, cyanosis or edema. SKIN: No rash. NEUROLOGIC: No gross focal findings. PSYCHIATRIC: Calm and cooperative. IMPRESSION 1. Neutropenic fever. Cultures negative. 2. Pancytopenia. 3. AML. RECOMMENDATIONS Patient is clinically stable and cultures are negative. Okay to discharge on PO Levaquin from ID standpoint. Jim Grande MD Apr 23, 2017 10:34
[2017-04-23 10:36] VITALS: PULSE 58
[2017-04-23] MEDS ORDERED: LACTCHW3 CHEW (11:12)
[2017-04-23] MEDS ORDERED: LEVO500T8 PO (11:12)
--- NOTE | 2017-04-23 11:13 | HHI.DS ---
Discharge Summary Admission Date Apr 18, 2017 at 18:13 Discharge Date: Apr 23, 2017 Admitting Diagnosis Neutropenic Fever (1) Neutropenic fever ICD Code: D70.9 - Neutropenia, unspecified; R50.81 - Fever presenting with conditions classified elsewhere Status: Acute (2) Acute myeloid leukemia ICD Code: C92.00 - Acute myeloblastic leukemia, not having achieved remission Status: Acute (3) Pancytopenia ICD Code: D61.818 - Other pancytopenia Status: Acute Procedures None Brief History - From Admission 56-year-old female with a past medical history significant for AML, currently on Rydapt, lupus, rheumatoid arthritis and COPD presents with a 1 day history of a fever to 100.3 at home. Per EMS, her fever was 101.3. She complains of associated shortness of breath with exertion 3 days. Denies cough or other systemic symptoms. WBC count is 0.8. Oncologist is Dr. Fonseca. CBC/BMP: 04/23/17 0440 04/23/17 0440 Significant Findings Laboratory Tests Test 04/20/17 22:50 04/21/17 04:50 04/22/17 04:33 04/22/17 11:47 Total Protein 5.9 GM/DL (6.4-8.2) 6.3 GM/DL (6.4-8.2) Albumin 2.8 GM/DL (3.4-5.0) 3.0 GM/DL (3.4-5.0) Calcium Level 8.2 MG/DL (8.5-10.1) Aspartate Amino Transf (AST/SGOT) 12 U/L (15-37) 11 U/L (15-37) Total Bilirubin 1.3 MG/DL (0.2-1.0) 1.6 MG/DL (0.2-1.0) Vancomycin Level Trough 17.0 MCG/ML (5.0-10.0) White Blood Count 0.5 TH/MM3 (4.0-11.0) 0.6 TH/MM3 (4.0-11.0) Red Blood Count 2.72 MIL/MM3 (4.00-5.30) 2.84 MIL/MM3 (4.00-5.30) Hemoglobin 8.5 GM/DL (11.6-15.3) 8.6 GM/DL (11.6-15.3) Hematocrit 25.0 % (35.0-46.0) 26.0 % (35.0-46.0) Red Cell Distribution Width 20.9 % (11.6-17.2) 20.3 % (11.6-17.2) Platelet Count 38 TH/MM3 (150-450) 41 TH/MM3 (150-450) Neutrophils % (Manual) 7 % (16-70) 6 % (16-70) Lymphocytes % 73 % (9-44) 91 % (9-44) Monocytes % 14 % (0-8) Eosinophils % 6 % (0-4) Neutrophils # (Manual) 0.0 TH/MM3 (1.8-7.7) 0.0 TH/MM3 (1.8-7.7) Platelet Estimate LOW (NORMAL) LOW (NORMAL) Platelet Morphology Comment ENLARGED (NORMAL) Basophilic Stippling FAINT (NORMAL) Potassium Level 3.4 MEQ/L (3.5-5.1) Urine Bacteria RARE /hpf (NONE) Urine Mucus FEW /lpf (OCC) Test 04/23/17 04:40 White Blood Count 0.7 TH/MM3 (4.0-11.0) Red Blood Count 2.73 MIL/MM3 (4.00-5.30) Hemoglobin 8.3 GM/DL (11.6-15.3) Hematocrit 24.9 % (35.0-46.0) Red Cell Distribution Width 19.8 % (11.6-17.2) Platelet Count 39 TH/MM3 (150-450) Neutrophils % (Manual) 9 % (16-70) Lymphocytes % 72 % (9-44) Monocytes % 9 % (0-8) Eosinophils % 7 % (0-4) Neutrophils # (Manual) 0.1 TH/MM3 (1.8-7.7) Nucleated Red Blood Cells 2 /100 WBC (0-0) Blastocytes 2 % (0-0) Platelet Estimate LOW (NORMAL) Potassium Level 3.3 MEQ/L (3.5-5.1) Imaging Last Impressions Chest X-Ray 04/18/17 1614 Signed Impressions: Service Date/Time: Tuesday, April 18, 2017 16:38 - CONCLUSION: No acute disease. No significant change has occurred. Alcides Longoria MD PE at Discharge GENERAL: NAD SKIN: Warm and dry. HEAD: Normocephalic. EYES: No scleral icterus. No injection or drainage. NECK: Supple, trachea midline. No JVD or lymphadenopathy. CARDIOVASCULAR: Regular rate and rhythm without murmurs, gallops, or rubs. RESPIRATORY: Breath sounds equal bilaterally. No accessory muscle use. GASTROINTESTINAL: Abdomen soft, non-tender, nondistended. MUSCULOSKELETAL: No cyanosis, or edema. BACK: Nontender without obvious deformity. No CVA tenderness. Hospital Course Patient was admitted to the hospital and treated with broad-spectrum antibiotics for neutropenic fever. Oncology and infectious disease were consulted. Fortunately all of her cultures returned back negative. Patient has not had fever overnight. I discussed with Dr. Grande of infectious disease and he'll require a of oncology. Patient is cleared for discharge home. She will be discharged on Levaquin by mouth. I've also prescribed her lactic neck. Patient will follow-up with oncology next week and will have weekly CBCs. Pt Condition on Discharge: Stable Discharge Disposition: Discharge Home Discharge Time: > 30 minutes Discharge Instructions DIET: Follow Instructions for: Heart Healthy Diet Activities you can perform: Regular-No Restrictions Follow up Referrals: Oncology New Medications: Lactobacillus Acidophilus (Lactinex) 1 Chew 1 TAB CHEW BID for Nutritional Supplement, #60 TAB 0 Refills Continued Medications: Amlodipine (Norvasc) 5 Mg Tab 5 MG PO DAILY for hypertension, #30 TAB Carvedilol (Carvedilol) 12.5 Mg Tab 3.125 MG PO DAILY, #60 TAB 0 Refills Levofloxacin (Levofloxacin) 500 Mg Tablet 500 MG PO DAILY for Infection, #30 TAB 0 Refills (This prescription has been renewed) Losartan-Hydrochlorothiazide (Losartan-Hydrochlorothiazide) 100-25 Mg Tab 1 TAB PO DAILY for Blood Pressure Management, #30 TAB 0 Refills Ondansetron (Zofran) 4 Mg Tab 4 MG PO Q6HR PRN for NAUSEA OR VOMITING, TAB 0 Refills Prednisone (Prednisone) 2.5 Mg Tab 2.5 MG PO BID, TAB 0 Refills Prochlorperazine Edisylate (Prochlorperazine Edisylate) 5 Mg/1 Ml Vial 5 MG PO PRN for NAUSEA [Rydapt] () 50 MG PO BID Discontinued Medications: Vancomycin (Vancocin) 250 Mg Cap 250 MG PO QID for Infection for 10 Days, CAP 0 Refills Maggie Whitney MD Apr 23, 2017 11:13
[2017-04-23] MEDS ORDERED: POTASSIUM CHLORIDE 10 MEQ CONTROLLED RELEASE TAB PO ONE (12:15)
[2017-04-24] MEDS ORDERED: PHARMACY ORDERED LAB ONE (10:45)
== END 2017-04-23 12:10 | disposition home or self-care (01) | DRG 809 ==
LOC: NEPC 15:52 → NEDA 18:13 → N06B 21:00 → HCIN 04-19 22:35
PROVIDERS: ADMIT Family Medicine; ATTEND Family Medicine
PROC: 30233N1 Transfusion of Nonautologous Red Blood Cells into Peripheral Vein, Percutaneous Approach (ICD-10-PCS; principal; 2017-04-20)
DX: D70.1 Agranulocytosis secondary to cancer chemotherapy (principal); C92.02 Acute myeloblastic leukemia, in relapse; D69.59 Other secondary thrombocytopenia; M32.9 Systemic lupus erythematosus, unspecified; D64.81 Anemia due to antineoplastic chemotherapy; R50.81 Fever presenting with conditions classified elsewhere; I25.10 Atherosclerotic heart disease of native coronary artery without angina pectoris; J44.9 Chronic obstructive pulmonary disease, unspecified; K21.9 Gastro-esophageal reflux disease without esophagitis; I10 Essential (primary) hypertension; L50.0 Allergic urticaria; T45.1X5A Adverse effect of antineoplastic and immunosuppressive drugs, initial encounter; T36.1X5A Adverse effect of cephalosporins and other beta-lactam antibiotics, initial encounter; M06.9 Rheumatoid arthritis, unspecified; G47.30 Sleep apnea, unspecified; F32.9 Major depressive disorder, single episode, unspecified; F41.9 Anxiety disorder, unspecified; E78.00 Pure hypercholesterolemia, unspecified; Y92.238 Other place in hospital as the place of occurrence of the external cause; Z85.41 Personal history of malignant neoplasm of cervix uteri; Z87.891 Personal history of nicotine dependence; Z88.1 Allergy status to other antibiotic agents; Z88.2 Allergy status to sulfonamides; Z91.040 Latex allergy status
CPT/HCPCS: 36430; 71010; 80048; 80053; 80202; 81001; 82550; 82948; 83605; 83735; 84484; 85007; 85027; 85610; 85730; 86850; 86900; 86901; 86920; 87040; 87804; 93005; 96374; 96375; J0692; J1200; J1650; J2405; J2543; J2930; J3370; J7030; J7050; P9040

== ENCOUNTER 2017-04-28 11:08 | Inpatient (IN) | payer OTHER, MEDICARE ==
[~2017-04-28] VITALS: Ht 154.9 cm; Wt 84.4 kg
[~2017-04-28 11:08] MED LIST changes: +LACTCHW3 CHEW; -VANC1CAP7 PO; +ZOFR4TAB PO
[2017-04-28 14:40] VITALS: BP 146/96; PULSE 112; RESP 20; TEMP 102; O2SAT 96
[2017-04-28] MEDS: ACETAMINOPHEN 325 MG TAB PO PRN ×2 (14:55→21:58)
[2017-04-28] MEDS ORDERED: ALUMINUM/MAGNESIUM/SIMETH 30 ML CUP PO PRN (15:00)
[2017-04-28] MEDS ORDERED: LOPERAMIDE HCL 2 MG CAP PO PRN (15:00)
[2017-04-28] MEDS ORDERED: PROCHLORPERAZINE INJ 10 MG/2 ML VIAL IV PUSH PRN (15:00)
[2017-04-28] MEDS ORDERED: MAGNESIUM HYDROXIDE SUSP 30 ML CUP PO PRN (15:00)
[2017-04-28] MEDS ORDERED: ALTEPLASE RECOMBINANT 2 MG VIAL IVF PRN (15:00)
[2017-04-28 16:56] LABS: BILIRUBIN, URINE NEG (NEG); BLOOD, URINE NEG (NEG); GLUCOSE,URINE NEG (NEG); HYALINE CAST, URINE 1 /lpf (RARE); KETONE, URINE NEG (NEG); NITRITE,URINE NEG (NEG); SQUAMOUS EPITHELIAL CELL URINE <1 /hpf (0-5); URINE COLOR YELLOW (YELLW/STRAW); URINE LEUKOCYTE ESTERASE NEG (NEG)
[2017-04-28 17:16] VITALS: BP 123/80; PULSE 104; RESP 18; TEMP 98.7; O2SAT 96
[2017-04-28] MEDS ORDERED: DIAZEPAM 5 MG TAB PO ONE ×2 (17:45→19:30)
[2017-04-28] MEDS: metroNIDAZOLE 500 MG TAB PO SCH ×2 (18:19→21:58)
[2017-04-28] MEDS: AZTREONAM INJ 2,000 MG in SODIUM CHLORIDE 0.9% INJ 100 ML IV SCH (18:21)
[2017-04-28] MEDS: SODIUM CHLOR 0.9% 1000 ML INJ 1,000 ML IV SCH (18:21)
--- NOTE | 2017-04-28 19:19 | MB ---
cc: MARELY HASSAN MD DATE OF CONSULTATION 04/28/[address] Levin REASON FOR CONSULTATION Neutropenic fever. HISTORY OF THE PRESENT ILLNESS This is a 57-year-old white female who has AML which is refractory. The patient was just discharged from the hospital on April 23 after she was managed for neutropenic fever. During this hospitalization cultures were negative. She was discharged home because she felt a little better. She was sent home on p.o. Levaquin. The patient awakened earlier today with high fever and shaking chills. She went for her oncology appointment and was also noted to have fever at the office and she was sent here to [place] to be admitted for further management. Her temperature was 102 degrees after she arrived at [place] and heart rate was elevated at 112. Her white count remains low at 0.6 and also platelet count is low at 14. Blood cultures have been taken. The patient notes that she has very poor appetite. She notes feeling extremely fatigued and she also states that she has mild headache and right-sided jaw pain. 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 She denies sputum production but does note that she has cough which is dry. She denies dysuria or back pain. During the last hospitalization the patient had negative cultures upon workup. The patient has been receiving chemotherapy in the form of RYDAPT. PAST MEDICAL HISTORY 1. Acute myelogenous leukemia. 2. Rheumatoid arthritis. 3. Lupus. 4. Chronic obstructive pulmonary disease. 5. Cholecystectomy. 6. Tonsillectomy. 7. Cervical cancer. 8. Port placement. 9. History of C-difficile in November 2016. ALLERGIES CEFEPIME, SULFA, LATEX. MEDICATIONS 1. Neupogen. 2. Vancomycin. SOCIAL HISTORY No tobacco. Occasional alcohol. No illicit drugs. FAMILY HISTORY Noncontributory. REVIEW OF SYSTEMS CONSTITUTIONAL: Positive for fever and chills. Decreased appetite. HEENT: Positive for headache. No blurring or diplopia. No soreness of the throat. NECK: No pain or swelling. CARDIOVASCULAR: Denies palpitation or chest pain. RESPIRATORY: Notes coughs. No dyspnea. No sputum production. GASTROINTESTINAL: Denies nausea, vomiting, abdominal pain or diarrhea. GENITOURINARY: Denies urgency or frequency. HEMATOPOETIC: Denies easy bruising or bleeding. ENDOCRINE: Denies polyuria or polydipsia. INTEGUMENTARY: Denies skin rash or itching. NEUROLOGIC: Denies problems with coordination or tremors. PSYCHIATRIC: Denies depression or mood changes. PHYSICAL EXAMINATION GENERAL: This is a moderately obese female who is in no acute distress but appears chronically ill. VITAL SIGNS: Includes temperature of 102, BP 146/96, respirations 20, heart rate 112. HEENT: Right side of the face has swelling and is mildly warm but has no significant erythema. There is tenderness on palpation of the lower aspect of the jaw. Extraocular movements grossly intact. Pupils reactive to light. No icterus. Oropharynx moist mucosa without lesion. NECK: Supple without adenopathy. LUNGS: Decreased. Clear breath sounds. HEART: Regular S1-S2 without murmurs, rubs, or gallops. ABDOMEN: Bowel sounds present. Soft. Obese. Nontender. RECTAL: Not performed. EXTREMITIES: No clubbing, cyanosis or edema. SKIN: No rash. NEUROLOGIC: No gross focal findings. PSYCHIATRIC: The patient is calm and cooperative. LABORATORY DATA WBC 0.6, platelets 40, hemoglobin 9.0. Differential includes 15% neutrophils and 2% bands. IMPRESSION 1. Neutropenic fever. Patient with profound neutropenia. 2. Acute myeloblastic leukemia. The patient has been receiving chemotherapy. 3. Right jaw pain. RECOMMENDATIONS 1. Continue vancomycin. 2. Begin aztreonam. 3. Add metronidazole. 4. Add micafungin. 5. Obtain MRI of the face to evaluate the right jaw pain. Rule out abscess. 6. Obtain blood cultures. 7. Monitor temperature and white blood cell count and cultures and also results of the MRI. Thank you this consultation. The patient's progress will be monitored and further recommendations will be given upon followup. Marely Hassan MD FD/NIRANJAN /3:48 PM /6:40 PM MTDD
[2017-04-28] MEDS: MICAFUNGIN INJ 150 MG in SODIUM CHLORIDE 0.9% INJ 100 ML IV SCH (19:37)
--- NOTE | 2017-04-28 19:47 | MH ---
cc: CEE MCCULLOUGH M.D. DATE OF ADMISSION 04/28/2017 New patient consultative summary DATE OF 1960 ADMISSION DIAGNOSIS Neutropenic fever. SECONDARY DIAGNOSIS Acute myeloid leukemia. CHIEF COMPLAINT I do not feel good. HISTORY OF THE PRESENT ILLNESS Ms. Arroyo is a 57-year-old woman, well-known patient to Dr. 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 She was given her last dose of Dacogen about 2 weeks ago. Course was complicated by neutropenic fever for which she was admitted to the hospital on April 18, 2017. Evaluation for infectious etiology was negative. She was ultimately discharged home on April 23, 2017. She was sent home on antibiotic therapy Levaquin once a day. She reports being afebrile at home but feeling weak and tired. She developed fever 102 the night prior. She was advised to come into the clinic the following morning. During her clinic evaluation she was neutropenic with ANC of 100. Her white blood cell count is 0.6, hemoglobin of 9, platelet count of 40,000. She was being transfused per parameters for Dr. Fonseca. Because of fever which was documented in clinic of 102 she was offered admission to the hospital. REVIEW OF SYSTEMS She denies any sore throat. She has generalized achiness. She is tearful and upset. She apparently has no family in the area. Denies any bleeding. No headaches. No vision changes. No urinary complaints. No diarrhea. Admission was coordinated from the clinic to the hospital because of the febrile neutropenia. PAST MEDICAL HISTORY 1. Thrombocytopenia. 2. Acute myeloid leukemia. 3. Epistaxis. 4. Anxiety. 5. COPD. 6. Depression. 7. Hypercholesterolemia. 8. Hypertension. 9. Irregular heart beat. 10. Rheumatoid arthritis. 11. History of cervical cancer. PAST SURGICAL HISTORY 1. section x2. 2. Cholecystectomy. 3. Colon resection. 4. Hysterectomy. 5. Port placement. 6. Right foot surgery. 7. Colonoscopy. FAMILY HISTORY Mother of stroke. Father of aneurysm age 63. SOCIAL HISTORY She is , retired. She never drank. Denies any illicit drug use. Quit smoking 12 years ago but has a 35 pack-year smoking history. ALLERGIES SULFA, CEFEPIME AND LATEX. RECENTLY EXPOSED TO CEFEPIME AND DEVELOPED A RASH. PHYSICAL EXAMINATION VITAL SIGNS: Temperature 102.0, heart rate 104, respiratory rate 18, blood pressure 123/80, saturation 96%. GENERAL: Ms. Arroyo is a well-developed, well-nourished woman who is anxious. HEENT: She has a roundish face. She has pallor. Her conjunctivae is pale. Oropharynx is clear. NECK: Supple. LUNGS: Are clear. CARDIOVASCULAR: Exam reveals tachycardia. ABDOMEN: Benign. EXTREMITIES: Lower extremity with no edema. NEUROLOGIC: Exam is nonfocal. LABORATORY DATA As described above. ASSESSMENT/PLAN Mrs. Arroyo is a 57-year-old woman well-known patient to Dr. Sandy Fonseca with multiple medical problems. She has a history of AML initially diagnosed in August of 2016. 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 She had induction with 7 + 3 and went in to remission ultimately in October of 2016. She had a high-dose Zuleyka-C with RYDAPT. She was evaluated at [facility] for a bone marrow transplant. 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 She was started on Dacogen and RYDAPT. She continues on Dacogen and is requiring transfusion support. Her last dose of Dacogen was April 09, 2017. She is due for another cycle next week. She is readmitted to the hospital because of neutropenic fever. She is having fever despite Levaquin. There is no overt source of fever. In light of the recurrent fever and chronic neutropenia she is being admitted and evaluated. Infectious disease will be consulted. Furthermore she has a complex antibiotic regimen in light of her multiple allergies. The case was discussed with Dr. Grande who is coordinating her antibiotic therapy. Transfusion support is offered. Her questions were answered to his satisfaction. Treatment for AML continued with Dacogen on an outpatient basis. MD GEOFF Enriquez/NIRANJAN /6:36 PM /7:10 PM
[2017-04-28 19:54] VITALS: BP 149/80; PULSE 96; RESP 20; TEMP 100; O2SAT 95
[2017-04-28 20:01] VITALS: PULSE 98
[2017-04-28] MEDS ORDERED: GADODIAMIDE PF 287 MG/ML 5 ML VIAL (for RAD MRI) IVCONTRAST ONE (21:31)
[2017-04-28] MEDS: VANCOMYCIN INJ 1,000 MG in SODIUM CHLOR 0.9% 250 ML INJ 250 ML IV SCH (21:59)
[2017-04-28] MEDS: ONDANSETRON HCL 4 MG/2 ML VIAL IV PUSH PRN (21:59)
[2017-04-28 23:15] VITALS: BP 117/66; PULSE 99; RESP 17; TEMP 100.7; O2SAT 95
--- NOTE | 2017-04-28 23:44 | RADRPT ---
EXAM DATE/TIME: 04/28/2017 21:04 [facility] COMPARISON: No previous studies available for comparison. INDICATIONS : Right sided upper and lower jaw pain. CONTRAST: 17 cc Omniscan (gadodiamide) IV MEDICAL HISTORY : Leukemia. Hypertension. Cervical cancer SURGICAL HISTORY : Cholecystectomy. Tonsillectomy. section. Leep procedure on nose. ENCOUNTER: Initial ACUITY: 3 day PAIN SCORE: 8/10 LOCATION: Right upper and lower jaw. TECHNIQUE: Multi-weighted, multi-axial MR images of the facial soft tissue both before and after the administrat ion of intravenous contrast. FINDINGS: Examination demonstrates enhancing soft tissue along the right lateral body of the mandible which ext ends along the posterior inferior margin into the right submandibular space. There is also enhancing soft tissue tracking along the medial and lateral right mandibular ramus. The signal within the rig ht body and ramus of the mandible is similar to the contralateral side and no definite abnormal marro w enhancement seen. There is some extension of enhancing soft tissue along the inner curvature of th e right mandible as well. There is a focal fluid collection located inferior to the posterior body o f the mandible which measures 1.4 x 1.2 cm. This fluid collection also demonstrate enhancement.. Th ere is some thickening of the platysmas muscle and some induration of the subcutaneous soft tissues s uperficial to the vertebral body. The submandibular glands are symmetric in size. CONCLUSION: Evidence of right perimandibular cellulitis and abscess with enhancement both medial and lateral to t he body and ramus of the mandible. Focal 1.4 cm fluid collection inferior to the posterior body of t he mandible. No abnormal enhancement with the marrow of the mandible. Troy Clarke MD on April 28, 2017 at 23:34 Board Certified Radiologist. This report was verified electronically.
[2017-04-29] VITALS (11 sets, daily range): BP systolic 106–159; BP diastolic 54–90; PULSE 86–126; RESP 12–23; TEMP 98.4–99.8; O2SAT 92–98
[2017-04-29] MEDS: AZTREONAM INJ 2,000 MG in SODIUM CHLORIDE 0.9% INJ 100 ML IV SCH ×3 (00:55→16:44)
[2017-04-29] MEDS: metroNIDAZOLE 500 MG TAB PO SCH ×3 (04:45→21:23)
[2017-04-29] MEDS: ACETAMINOPHEN 325 MG TAB PO PRN ×3 (04:46→18:56)
[2017-04-29] MEDS: SODIUM CHLOR 0.9% 1000 ML INJ 1,000 ML IV SCH ×2 (05:40→14:42)
[2017-04-29] MEDS: VANCOMYCIN INJ 1,000 MG in SODIUM CHLOR 0.9% 250 ML INJ 250 ML IV SCH ×2 (08:38→21:22)
[2017-04-29] MEDS ORDERED: IOHEXOL 350 MG/ML 10 ML VIAL (for RAD DIAG) IVCONTRAST ONE (10:49)
--- NOTE | 2017-04-29 11:12 | PD.CONS ---
HPI Service [facility] Hospitalists Consult Requested By Primary Care Physician Unknown Diagnoses: History of Present Illness fever of 102 on wednesday night small cough, but is getting worse , no sputum no nausea. no vomiting , no diarrhea only last night after MRI had vomiting once right madibular swelling and pain- which started wednesday night a little bit but now getting worse gurgled with salt water at home, but got worse had trouble swallowing food had 2 teeth taken out from this right lower teeth in february- did not have complication- had it done with Dr Wyatt oral surgeon no burnign or pain or freq urination does have headaches when she had fever at home- but now getting worse, NO photophobia, NO neck pain no skin tears or sores no other symptoms Review of Systems Except as stated in HPI: all other systems reviewed are Neg Past Family Social History Allergies: Coded Allergies: cefepime (Verified Allergy, Severe, HIVES, 04/18/17) latex (Unverified Allergy, Severe, Rash, 04/18/17) Sulfa (Sulfonamide Antibiotics) (Unverified Adverse Reaction, Severe, Vomiting, cramps, 04/18/17) Past Medical History AML- decogen last dose 04/09/17; no radiation- diagnosed in August 2016 Lupus RA chronic immunosuppessant therapy with prednisone 2.5mg po bid for long time- by certified pharmacist assistant - Dr Sinclair htn was told she had heart murmur by ER provider last admission- but thinks it happened once or twice copd - not on oxygen at home cervical cancer- 6 yrs ago, s/p LEEP procedure , no chemo no radiation Past Surgical History 2 c section bunionectomy cholecystectomy tonsilectomy LEEP procedure Family History mother- stroke dad- aneursym rupture, brain Social History quit smoking 15yrs ago drink etoh once every blue wilkes no drugs lives with your boyfriend, still driving, drove here yesterday Physical Exam Vital Signs Vital Signs Date Time Temp Pulse Resp B/P (MAP) Pulse Ox O2 Delivery O2 Flow Rate FiO2 04/29/17 08:48 98.4 94 16 129/82 (98) 95 04/29/17 05:46 16 04/29/17 04:41 99.6 111 23 159/90 (113) 95 04/29/17 04:06 86 04/29/17 00:12 96 04/28/17 23:15 100.7 99 17 117/66 (83) 95 04/28/17 20:01 98 04/28/17 19:54 100.0 96 20 149/80 (103) 95 04/28/17 17:16 98.7 104 18 123/80 (94) 96 04/28/17 14:40 102.0 112 20 146/96 (113) 96 Physical Exam GENERAL: This is a well-nourished, well-developed patient, in mild distress from fever and chills at the time of exam. SKIN: No rashes, ecchymoses or lesions. Cool and dry. Tactile fever HEAD: Atraumatic. Normocephalic. No temporal or scalp tenderness. EYES: No scleral icterus. No injection or drainage. ENT: Nose without bleeding, purulent drainage or septal hematoma. Airway patent. right mandibular area swelling and pain NECK: Trachea midline. No JVD. Supple, nontender, no meningeal signs. CARDIOVASCULAR: Regular rate and rhythm without murmurs, gallops, or rubs. RESPIRATORY: Clear to auscultation. Breath sounds equal bilaterally. No wheezes , rales, or rhonchi. GASTROINTESTINAL: Abdomen soft, non-tender, nondistended. . No guarding. MUSCULOSKELETAL: Extremities without clubbing, cyanosis, or edema. No calf tenderness. NEUROLOGICAL: Awake and alert. Motor and sensory grossly within normal limits. Normal speech. Laboratory Laboratory Tests Test 04/28/17 14:45 Urine Color YELLOW Urine Turbidity CLEAR Urine pH 7.0 Urine Specific [place] 1.018 Urine Protein TRACE Urine Glucose (UA) NEG Urine Ketones NEG Urine Occult Blood NEG Urine Nitrite NEG Urine Bilirubin NEG Urine Urobilinogen 2.0 Urine Leukocyte Esterase NEG Urine RBC 1 Urine WBC 1 Urine Squamous Epithelial Cells <1 Urine Hyaline Casts 1 Microscopic Urinalysis Comment CULT NOT INDICATED Date/Time Source Procedure Growth Status 04/28/17 17:57 Blood Peripheral Aerobic Blood Culture - Preliminary NO GROWTH IN 1 DAY Resulted 04/28/17 17:57 Blood Peripheral Anaerobic Blood Culture - Preliminary NO GROWTH IN 1 DAY Resulted Imaging Last 48 hours Impressions Face MRI 04/28/17 0000 Signed Impressions: Service Date/Time: Friday, April 28, 2017 21:04 - CONCLUSION: Evidence of right perimandibular cellulitis and abscess with enhancement both medial and lateral to the body and ramus of the mandible. Focal 1.4 cm fluid collection inferior to the posterior body of the mandible. No abnormal enhancement with the marrow of the mandible. Troy Clarke MD Assessment and Plan Assessment and Plan Impression: neutropenic fever right mandibular abscess recent tooth extraction in february 2017 report of heart murmur recent negative workup for fever and was on levofloxacin outpatient family hx of cerebal aneurysm in dad with rupture - pt with headaches at present - however, likely from fever. AML- decogen last dose 04/09/17; no radiation- diagnosed in August 2016 Lupus RA chronic immunosuppessant therapy with prednisone 2.5mg po bid for long time- by certified pharmacist assistant - Dr Sinclair htn was told she had heart murmur by ER provider last admission- but thinks it happened once or twice copd - not on oxygen at home cervical cancer- 6 yrs ago, s/p LEEP procedure , no chemo no radiation Plan: echo MRA of brain to r/o cerebral aneursym ID following - antibotics per ID Maxilofacial on the case MRI face reviewed Neck CT pending resume home meds for htn dvt prophylaxis with lovenox Discussed Condition With patient , nursing staff Brisa Glasgow MD Apr 29, 2017 11:12
--- NOTE | 2017-04-29 11:38 | RADRPT ---
EXAM DATE/TIME: 04/29/2017 10:31 [facility] COMPARISON: MRI FACIAL SOFT TISSUE W & W/O CONTRAST, April 28, 2017, 21:04. INDICATIONS : Evaluate possible abscess right face/mandible. IV CONTRAST: 75 cc Omnipaque 350 (iohexol) IV RADIATION DOSE: 23.03 CTDIvol (mGy) MEDICAL HISTORY : Cardiovascular disease. Hypertension. Chronic obstructive pulmonary disease.Cervical cancer, lupus SURGICAL HISTORY : Hysterectomy. ENCOUNTER: Initial ACUITY: 2 days PAIN SCALE: 3/10 LOCATION: Right facial TECHNIQUE: Volumetric scanning of the neck was performed. Using automated exposure control and adjustment of th e mA and/or kV according to patient size, radiation dose was kept as low as reasonably achievable to obtain optimal diagnostic quality images. DICOM format image data is available electronically for r eview and comparison. FINDINGS: There is a 1.3 x 1.0 cm enhancing nodule consistent with a lymph node just inferior to the body of th e mandible on the right. This is just anterior to the facial vein. No other adenopathy observed. No m ass appreciated within the visualized portions of the upper aerodigestive tract. There is mild strand ing of the fat adjacent to the body of the mandible along its lateral margin. This correlates to the abnormal signal seen on MRI. No abscess. No fluid collection. Several right mandibular teeth are abse nt. Orthodontic hardware is seen involving several maxillary teeth bilaterally generating beam harden ing artifact. No cortical destruction or lucency observed. Major vascular structures are unremarkable . Incidental note is made of an azygos lobe within the right apex. Right-sided Port-A-Cath observed. CONCLUSION: 1. Solitary mildly enlarged right submandibular lymph node. Mild inflammatory change seen directly ad jacent to the body of the mandible. This would suggest an infectious or inflammatory process with amanda ctive adenopathy. No abscess or CT evidence to suggest osteomyelitis. No mass. Troy Pacheco Jr., MD on April 29, 2017 at 11:22 Board Certified Radiologist. This report was verified electronically.
[2017-04-29] MEDS ORDERED: LORazepam 2 MG/ML VIAL IV PUSH PRN (11:45)
[2017-04-29] MEDS ORDERED: Vancomycin Consult Pharmacy 1 EA OTHER SCH (13:00)
--- NOTE | 2017-04-29 13:00 | RADRPT ---
EXAM DATE/TIME: 04/29/2017 12:31 [facility] COMPARISON: No previous studies available for comparison. INDICATIONS : Aneurysm. Cephalgia and family history of aneurysm. MEDICAL HISTORY : Hypertension. Leukemia. SURGICAL HISTORY : section. Cholecystectomy. Tonsillectomy. ENCOUNTER: Subsequent ACUITY: 2 day PAIN SCORE: 2/10 LOCATION: head. Please note a normal MRA of the brain does not entirely exclude the possibility of a small aneurysm, nor the possibility of distal intracranial vessel disease. TECHNIQUE: 3D time of flight MRA was performed. Source images, multiplanar STS MIP, and 3D volume MIP reconstru ctions were reviewed. FINDINGS: There is excellent visualization of the major intracranial arteries out to the second-order branch ve ssels. There is no evidence for aneurysm, vessel truncation or stenosis, and no evidence for vascula r malformation. CONCLUSION: Normal examination for a patient of this age. Jacinto Tello MD on April 29, 2017 at 12:56 Board Certified Radiologist. This report was verified electronically.
--- NOTE | 2017-04-29 13:02 | HHI.IDPN ---
Note Infectious Disease Note Patient has HOOPER and right jaw pain. febrile. No SOB. Going for MRI of the head. PAST MEDICAL HISTORY 1. Acute myelogenous leukemia. 2. Rheumatoid arthritis. 3. Lupus. 4. Chronic obstructive pulmonary disease. 5. Cholecystectomy. 6. Tonsillectomy. 7. Cervical cancer. 8. Port placement. 9. History of C-difficile in November 2016. ALLERGIES CEFEPIME, SULFA, LATEX. MEDICATIONS Current Medications Medications (Trade) Dose Ordered Sig/Zeynep Route PRN Reason Start Time Stop Time Status Last Admin Dose Admin Magnesium Hydroxide (Milk Of Magnesia Liq) 15 ml DAILY PRN PO CONSTIPATION 04/28/17 15:00 Prochlorperazine Edisylate (Compazine Inj) 10 mg Q4H PRN IV PUSH NAUSEA OR VOMITING 04/28/17 15:00 Loperamide HCl (Imodium) 2 mg UNSCH PRN PO DIARRHEA 04/28/17 15:00 Al Hydrox/Mg Hydrox/Simethicone (Mag-Al Plus Susp Liq) 30 ml Q4H PRN PO INDIGESTION 04/28/17 15:00 Alteplase, Recombinant (Cathflo Activase Inj) 2 mg UNSCH PRN IVF SEE LABEL COMMENTS 04/28/17 15:00 Acetaminophen (Tylenol) 650 mg Q4H PRN PO PAIN SCALE 1-3 OR TEMP> 100.5F 04/28/17 15:00 04/29/17 11:39 Ondansetron HCl (Zofran Inj) 4 mg Q6H PRN IV PUSH nausea 04/28/17 15:00 04/28/17 21:59 Filgrastim (Neupogen Inj) 300 mcg DAILY@14 SQ 04/29/17 14:00 Vancomycin HCl 1000 mg/Sodium Chloride 250 ml @ 250 mls/hr Q12H IV 04/28/17 20:00 04/29/17 08:38 Aztreonam 2000 mg/ Sodium Chloride 100 ml @ 200 mls/hr Q8H IV 04/28/17 17:00 04/29/17 12:17 Metronidazole (Flagyl) 500 mg Q8HR PO 04/28/17 17:00 04/29/17 04:45 Micafungin Sodium 150 mg/Sodium Chloride 100 ml @ 100 mls/hr Q24H IV 04/28/17 18:00 04/28/17 19:37 Sodium Chloride 1,000 ml @ 84 mls/hr [id number] IV 04/28/17 17:45 04/28/17 18:21 Amlodipine Besylate (Norvasc) 5 mg DAILY PO 04/30/17 09:00 Carvedilol (Coreg) 3.125 mg DAILY PO 04/30/17 09:00 Lactobacillus Acidophilus (Lactinex) 1 tab BID PO 04/29/17 21:00 Prednisone (Deltasone) 2.5 mg BID PO 04/29/17 21:00 Morphine Sulfate (Morphine Inj) 2 mg Q3H PRN IV PUSH pain>5 04/29/17 11:30 Lorazepam (Ativan Inj) 1 mg UNSCH X1 PRN IV PUSH claustrophobia with morphine 04/29/17 11:45 04/29/17 23:59 04/29/17 12:10 Losartan Potassium (Cozaar) 100 mg DAILY PO 04/30/17 09:00 Hydrochlorothiazide (Hydrodiuril) 25 mg DAILY PO 04/30/17 09:00 SOCIAL HISTORY No tobacco. Occasional alcohol. No illicit drugs. OBJECTIVE: Vital Signs Date Time Temp Pulse Resp B/P (MAP) Pulse Ox O2 Delivery O2 Flow Rate FiO2 04/29/17 08:48 98.4 94 16 129/82 (98) 95 04/29/17 05:46 16 04/29/17 04:41 99.6 111 23 159/90 (113) 95 04/29/17 04:06 86 04/29/17 00:12 96 04/28/17 23:15 100.7 99 17 117/66 (83) 95 04/28/17 20:01 98 04/28/17 19:54 100.0 96 20 149/80 (103) 95 04/28/17 17:16 98.7 104 18 123/80 (94) 96 04/28/17 14:40 102.0 112 20 146/96 (113) 96 Microbiology Date/Time Source Procedure Growth Status 04/28/17 17:57 Blood Peripheral Aerobic Blood Culture - Preliminary NO GROWTH IN 1 DAY Resulted 04/28/17 17:57 Blood Peripheral Anaerobic Blood Culture - Preliminary NO GROWTH IN 1 DAY Resulted 04/28/17 16:35 Blood Peripheral Aerobic Blood Culture - Preliminary NO GROWTH IN 1 DAY Resulted 04/28/17 16:35 Blood Peripheral Anaerobic Blood Culture - Preliminary NO GROWTH IN 1 DAY Resulted IMAGING: Neck CT 04/29/17 0000 Signed Impressions: Service Date/Time: April 10:31 - CONCLUSION: 1. Solitary mildly enlarged right submandibular lymph node. Mild inflammatory change seen directly adjacent to the body of the mandible. This would suggest an infectious or inflammatory process with reactive adenopathy. No abscess or CT evidence to suggest osteomyelitis. No mass. Troy Pacheco Jr., MD Face MRI 04/28/17 0000 Signed Impressions: Service Date/Time: Friday, April 28, 2017 21:04 - CONCLUSION: Evidence of right perimandibular cellulitis and abscess with enhancement both medial and lateral to the body and ramus of the mandible. Focal 1.4 cm fluid collection inferior to the posterior body of the mandible. No abnormal enhancement with the marrow of the mandible. Troy Calrke MD OBJECTIVE: Vital Signs Date Time Temp Pulse Resp B/P (MAP) Pulse Ox O2 Delivery O2 Flow Rate FiO2 04/29/17 08:48 98.4 94 16 129/82 (98) 95 04/29/17 05:46 16 04/29/17 04:41 99.6 111 23 159/90 (113) 95 04/29/17 04:06 86 04/29/17 00:12 96 04/28/17 23:15 100.7 99 17 117/66 (83) 95 04/28/17 20:01 98 04/28/17 19:54 100.0 96 20 149/80 (103) 95 04/28/17 17:16 98.7 104 18 123/80 (94) 96 04/28/17 14:40 102.0 112 20 146/96 (113) 96 Microbiology Date/Time Source Procedure Growth Status 04/28/17 17:57 Blood Peripheral Aerobic Blood Culture - Preliminary NO GROWTH IN 1 DAY Resulted 04/28/17 17:57 Blood Peripheral Anaerobic Blood Culture - Preliminary NO GROWTH IN 1 DAY Resulted 04/28/17 16:35 Blood Peripheral Aerobic Blood Culture - Preliminary NO GROWTH IN 1 DAY Resulted 04/28/17 16:35 Blood Peripheral Anaerobic Blood Culture - Preliminary NO GROWTH IN 1 DAY Resulted IMAGING: Neck CT 04/29/17 0000 Signed Impressions: Service Date/Time: April 10:31 - CONCLUSION: 1. Solitary mildly enlarged right submandibular lymph node. Mild inflammatory change seen directly adjacent to the body of the mandible. This would suggest an infectious or inflammatory process with reactive adenopathy. No abscess or CT evidence to suggest osteomyelitis. No mass. Troy Pacheco Jr., MD Face MRI 04/28/17 0000 Signed Impressions: Service Date/Time: Friday, April 28, 2017 21:04 - CONCLUSION: Evidence of right perimandibular cellulitis and abscess with enhancement both medial and lateral to the body and ramus of the mandible. Focal 1.4 cm fluid collection inferior to the posterior body of the mandible. No abnormal enhancement with the marrow of the mandible. Troy Clarke MD PHYSICAL EXAMINATION GENERAL: No acute distress but appears chronically ill. HEENT: Right side of the face has swelling and is warm. Mild erythema at both cheeks. There is tenderness on palpation of the right face. Extraocular movements grossly intact. Pupils reactive to light. No icterus. Oropharynx moist mucosa without lesion. NECK: Supple without adenopathy. LUNGS: Clear breath sounds. HEART: Regular S1-S2 without murmurs, rubs, or gallops. ABDOMEN: Bowel sounds present. Soft. Obese. Nontender. EXTREMITIES: No clubbing, cyanosis or edema. SKIN: No rash. NEUROLOGIC: No gross focal findings. PSYCHIATRIC: Calm and cooperative. IMPRESSION 1. Neutropenic fever. Patient with profound neutropenia. 2. Acute myeloblastic leukemia. 3. Perimandibular cellulitis and abscess. RECOMMENDATIONS 1. Continue vancomycin. 2. Cont aztreonam. 3. Cont metronidazole. 4. Cont micafungin. 5. Monitor blood cultures. 6. Monitor temperature. Jim Grande MD Apr 29, 2017 13:02
[2017-04-29 13:30] LABS: AUTOMATED NEUTROPHIL # 0.8 TH/MM3 (1.8-7.7); BASOPHIL % 1.4 % (0.0-2.0); EOSINOPHIL % 2.2 % (0.0-4.0); HEMATOCRIT 25.1 % (35.0-46.0); HEMOGLOBIN 8.5 GM/DL (11.6-15.3); LYMPH % 32.8 % (9.0-44.0); LYMPHOCYTE # 0.5 TH/MM3 (1.0-4.8); MEAN CELL VOLUME 90.7 FL (80.0-100.0); MEAN CORPUSCULAR HEMOGLOBIN 30.6 PG (27.0-34.0); MEAN CORPUSCULAR HGB CONC 33.7 % (32.0-36.0); MEAN PLATELET VOLUME 9.1 FL (7.0-11.0); MONO % 5.9 % (0.0-8.0); MONOCYTE # 0.1 TH/MM3 (0-0.9); NEUT % 57.7 % (16.0-70.0); PLATELET COUNT 36 TH/MM3 (150-450); RED BLOOD COUNT 2.76 MIL/MM3 (4.00-5.30); RED CELL DISTRIBUTION WIDTH 20.3 % (11.6-17.2); WHITE BLOOD COUNT 1.5 TH/MM3 (4.0-11.0)
--- NOTE | 2017-04-29 13:35 | PD.ONC.PN ---
Subjective Subjective Remarks My jaw still hurts. Objective Data Date Time Temp Pulse Resp B/P (MAP) Pulse Ox O2 Delivery O2 Flow Rate FiO2 04/29/17 08:48 98.4 94 16 129/82 (98) 95 04/29/17 05:46 16 04/29/17 04:41 99.6 111 23 159/90 (113) 95 04/29/17 04:06 86 04/29/17 00:12 96 04/28/17 23:15 100.7 99 17 117/66 (83) 95 04/28/17 20:01 98 04/28/17 19:54 100.0 96 20 149/80 (103) 95 04/28/17 17:16 98.7 104 18 123/80 (94) 96 04/28/17 14:40 102.0 112 20 146/96 (113) 96 04/29/17 04/29/17 04/29/17 07:00 15:00 23:00 Intake Total 456 ml Balance 456 ml Laboratory Results Laboratory Tests Test 04/28/17 14:45 04/29/17 13:04 Urine Color YELLOW Urine Turbidity CLEAR Urine pH 7.0 Urine Specific [place] 1.018 Urine Protein TRACE mg/dL Urine Glucose (UA) NEG mg/dL Urine Ketones NEG mg/dL Urine Occult Blood NEG Urine Nitrite NEG Urine Bilirubin NEG Urine Urobilinogen 2.0 MG/DL Urine Leukocyte Esterase NEG Urine RBC 1 /hpf Urine WBC 1 /hpf Urine Squamous Epithelial Cells <1 /hpf Urine Hyaline Casts 1 /lpf Microscopic Urinalysis Comment CULT NOT INDICATED Culture Results Microbiology Date/Time Source Procedure Growth Status 04/28/17 17:57 Blood Peripheral Aerobic Blood Culture - Preliminary NO GROWTH IN 1 DAY Resulted 04/28/17 17:57 Blood Peripheral Anaerobic Blood Culture - Preliminary NO GROWTH IN 1 DAY Resulted 04/28/17 16:35 Blood Peripheral Aerobic Blood Culture - Preliminary NO GROWTH IN 1 DAY Resulted 04/28/17 16:35 Blood Peripheral Anaerobic Blood Culture - Preliminary NO GROWTH IN 1 DAY Resulted Imaging Studies Last [address] 04/29/17 0000 Signed Impressions: Service Date/Time: April 10:31 - CONCLUSION: 1. Solitary mildly enlarged right submandibular lymph node. Mild inflammatory change seen directly adjacent to the body of the mandible. This would suggest an infectious or inflammatory process with reactive adenopathy. No abscess or CT evidence to suggest osteomyelitis. No mass. Troy Pacheco Jr., MD Head Magnetic Resonance Angiography 04/29/17 0000 Signed Impressions: Service Date/Time: April 12:31 - CONCLUSION: Normal examination for a patient of this age. Jacinto Tello MD Administered Medications Medications (Trade) Dose Ordered Sig/Zeynep Route PRN Reason Start Time Stop Time Status Last Admin Dose Admin Acetaminophen (Tylenol) 650 mg Q4H PRN PO PAIN SCALE 1-3 OR TEMP> 100.5F 04/28/17 15:00 04/29/17 11:39 Ondansetron HCl (Zofran Inj) 4 mg Q6H PRN IV PUSH nausea 04/28/17 15:00 04/28/17 21:59 Vancomycin HCl 1000 mg/Sodium Chloride 250 ml @ 250 mls/hr Q12H IV 04/28/17 20:00 04/29/17 08:38 Aztreonam 2000 mg/ Sodium Chloride 100 ml @ 200 mls/hr Q8H IV 04/28/17 17:00 04/29/17 12:17 Metronidazole (Flagyl) 500 mg Q8HR PO 04/28/17 17:00 04/29/17 04:45 Micafungin Sodium 150 mg/Sodium Chloride 100 ml @ 100 mls/hr Q24H IV 04/28/17 18:00 04/28/17 19:37 Sodium Chloride 1,000 ml @ 84 mls/hr [id number] IV 04/28/17 17:45 04/28/17 18:21 Lorazepam (Ativan Inj) 1 mg UNSCH X1 PRN IV PUSH claustrophobia with morphine 04/29/17 11:45 04/29/17 23:59 04/29/17 12:10 Objective Remarks GENERAL: Round faced, well-developed patient. Anxious. SKIN: Soft palate with mild erythema on the right. HEAD: Normocephalic. EYES: No scleral icterus. No injection or drainage. NECK: Supple, trachea midline. No JVD or lymphadenopathy. LYMPHATIC: No adenopathy. CARDIOVASCULAR: Regular rate and rhythm without murmurs. RESPIRATORY: Breath sounds equal bilaterally. No accessory muscle use. GASTROINTESTINAL: Abdomen soft, non-tender, nondistended. EXTREMITIES: No cyanosis, or edema. MUSCULOSKELETAL: Adequate muscle tone. NEUROLOGICAL: No obvious focal deficit. Awake, alert, and oriented x3. Assessment/Plan Problem List: (1) Acute myeloid leukemia ICD Codes: C92.00 - Acute myeloblastic leukemia, not having achieved remission Status: Acute Plan: h/o AML went into remission, recurred pending BMT. Current on Dacogen and Rydapt (d8-21) Admitted with neutropenic fever and pancytopenia. Noted R jaw swelling, MRI reveal abscess/fluid collection. ID consulted pt on abx therapy. 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 Plan 1. Consult Oral surgery 2. Consult Hepas to assist in medical management 3. Cont Ab per ID 4. Supportive transfusion. Problem Qualifiers (1) Acute myeloid leukemia: Qualified Codes: C92.02 - Acute myeloblastic leukemia, in relapse Elsi Levin MD Apr 29, 2017 13:35
[2017-04-29 13:54] LABS: AST (GOT) 12 U/L (15-37); BICARBONATE 27.2 MEQ/L (21.0-32.0); BLOOD UREA NITROGEN 8 MG/DL (7-18); CALCIUM 8.8 MG/DL (8.5-10.1); CHLORIDE 104 MEQ/L (98-107); CREATININE 0.68 MG/DL (0.50-1.00); GLOMERULAR FILTRATION RATE 89 ML/MIN (>89); GLUCOSE,RANDOM 109 MG/DL (74-106); SODIUM (NA) 140 MEQ/L (136-145)
[2017-04-29 13:55] LABS: ALT (GPT) 19 U/L (10-53)
[2017-04-29 13:57] LABS: ALKALINE PHOSPHATASE 59 U/L (45-117); TOTAL PROTEIN 7.1 GM/DL (6.4-8.2)
[2017-04-29 14:26] LABS: BANDS 2 % (0-6); BASOPHILS 1 % (0-2); CORRECTED NUCLEATED RBC 5 /100 WBC (0-0); LYMPHOCYTES 33 % (9-44); MONOCYTES 4 % (0-8); NEUTROPHIL # MANUAL DIFF 0.9 TH/MM3 (1.8-7.7); NUCLEATED RED BLOOD CELL 5 (0-0); POLYS (SEG NEUTROPHILS) 56 % (16-70)
[2017-04-29] MEDS: FILGRASTIM 300 MCG/ML VIAL SQ SCH (14:35)
--- NOTE | 2017-04-29 15:50 | ECHRPT ---
Indication: R/O vegetations CONCLUSIONS The left ventricular systolic function is normal with an estimated ejection fraction in the range of 60-65% Normal left ventricular size. Mild concentric LVH No regional wall motion abnormalities are present. Moderate thickening of the mitral valve leaflets. BP: 129 / 82 HR: 94 Rhythm: MEASUREMENTS (Male / Female) Normal Values Technical Quality: 2D ECHO LV Diastolic Diameter PLAX 4.1 cm 4.2 - 5.9 / 3.9 - 5.3 cm LV Systolic Diameter PLAX 2.7 cm IVS Diastolic Thickness 1.3 cm 0.6 - 1.0 / 0.6 - 0.9 cm LVPW Diastolic Thickness 1.3 cm 0.6 - 1.0 / 0.6 - 0.9 cm LV Relative Wall Thickness 0.6 RV Internal Dim ED PLAX 2.7 cm LVOT Diameter 1.7 cm M-MODE Aortic Root Diameter MM 4.0 cm AV Cusp Separation MM 2.0 cm DOPPLER AV Peak Velocity 240.0 cm/s AV Peak Gradient 23.0 mmHg AV Mean Gradient 9.5 mmHg AV Velocity Time Integral 31.6 cm LVOT Peak Velocity 186.0 cm/s LVOT Peak Gradient 13.8 mmHg LVOT Velocity Time Integral 23.4 cm AV Area Cont Eq vti 1.7 cm AV Area Cont Eq pk 1.8 cm MV Area PHT 3.3 cm Mitral E Point Velocity 117.0 cm/s Mitral A Point Velocity 115.0 cm/s Mitral E to A Ratio 1.0 LV E' Lateral Velocity 9.0 cm/s Mitral E to LV E' Lateral Ratio 13.0 LV E' Septal Velocity 8.4 cm/s Mitral E to LV E' Septal Ratio 14.0 PV Peak Velocity 129.0 cm/s PV Peak Gradient 6.7 mmHg FINDINGS LEFT VENTRICLE The left ventricular systolic function is normal with an estimated ejection fraction in the range of 60-65%. Normal left ventricular size. Mild concentric left ventricular hypertrophy. No regional wall motion abnormalities are present. RIGHT VENTRICLE Normal right ventricular size and systolic function. LEFT ATRIUM The left atrial size is normal. RIGHT ATRIUM The right atrial size is normal. ATRIAL SEPTUM Normal atrial septal thickness without atrial level shunting by limited color doppler interrogation. AORTA The aortic root and proximal ascending aorta are normal in size on limited imaging. MITRAL VALVE Moderate thickening of the mitral valve leaflets. AORTIC VALVE Trileaflet aortic valve. No aortic valve stenosis or regurgitation. TRICUSPID VALVE Structurally normal tricuspid valve. No tricuspid valve stenosis or regurgitation. PULMONARY VALVE The pulmonary valve is not well visualized. VESSELS The inferior vena cava is normal in size. PERICARDIUM No pericardial effusion. Al Rawls MD (Electronically Signed) Final Date:29 April 2017 15:49
[2017-04-29] MEDS ORDERED: POTASSIUM CHLORIDE 20 MEQ CONTROLLED RELEASE TAB PO ONE (17:45)
[2017-04-29] MEDS ORDERED: CODEINE SULFATE 15 MG TAB PO ONE (17:45)
[2017-04-29] MEDS: MICAFUNGIN INJ 150 MG in SODIUM CHLORIDE 0.9% INJ 100 ML IV SCH (18:00)
[2017-04-29] MEDS: ONDANSETRON HCL 4 MG/2 ML VIAL IV PUSH PRN (18:55)
[2017-04-29] MEDS ORDERED: RESP: ALBUTEROL 2.5 MG/IPRATROPIUM 0.5 MG NEB (SCH) NEB ONE (20:00)
[2017-04-29] MEDS: predniSONE 5 MG TAB PO SCH (21:23)
[2017-04-29] MEDS: LACTOBACILLUS ACIDOPHILUS TAB PO SCH (21:23)
[2017-04-29] MEDS: MORPHINE SULFATE 2 MG/ML INJ IV PUSH PRN (22:51)
[2017-04-30] VITALS (10 sets, daily range): BP systolic 114–161; BP diastolic 63–89; PULSE 78–105; RESP 18–23; TEMP 98.8–102; O2SAT 94–97
[2017-04-30] MEDS: guaiFENesin/DEXTROMETHORPHAN 200 MG/20 MG/10 ML CUP PO PRN ×5 (00:48→21:30)
[2017-04-30] MEDS: AZTREONAM INJ 2,000 MG in SODIUM CHLORIDE 0.9% INJ 100 ML IV SCH ×3 (00:48→17:00)
[2017-04-30] MEDS ORDERED: RESP: ALBUTEROL 2.5 MG/IPRATROPIUM 0.5 MG NEB (PRN) NEB (02:00)
[2017-04-30] MEDS: ACETAMINOPHEN 325 MG TAB PO PRN ×3 (04:06→22:50)
[2017-04-30] MEDS: metroNIDAZOLE 500 MG TAB PO SCH ×3 (04:07→21:21)
--- NOTE | 2017-04-30 06:35 | HHI.PR ---
Subjective Remarks pt seen and examined this morning reports feeling better, less pain right face tolerating po, Objective Vital Signs Date Time Temp Pulse Resp B/P (MAP) Pulse Ox O2 Delivery O2 Flow Rate FiO2 04/30/17 05:05 18 04/30/17 04:09 99.0 105 23 161/81 (107) 95 04/30/17 04:01 103 04/30/17 00:10 92 04/29/17 22:56 16 04/29/17 22:46 99.1 105 17 106/54 (71) 98 04/29/17 21:20 99.2 98 21 126/78 (94) 96 04/29/17 20:34 104 04/29/17 17:15 126 04/29/17 16:53 99.8 104 16 142/85 (104) 92 04/29/17 14:41 99.5 97 12 130/82 (98) 04/29/17 08:48 98.4 94 16 129/82 (98) 95 04/29/17 08:00 92 I/O 04/29/17 04/29/17 04/29/17 04/30/17 04/30/17 04/30/17 07:00 15:00 23:00 07:00 15:00 23:00 Intake Total 456 ml 250 ml 1500 ml 838 ml Balance 456 ml 250 ml 1500 ml 838 ml Intake Oral 1400 ml IV Total 456 ml 250 ml 100 ml 838 ml # Voids 6 Result Diagram: 04/29/17 1304 04/29/17 1304 Objective Remarks right facial edema - no erythema, soft mild tenderness to palpation no neck edema opening wide, no elevation fom/tongue, no deviation of uvula no dental complaints, no edema right mandible/maxilla - areas involving dentition no palpable/drainable collection noted Assessment and Plan Assessment and Plan AML,neutropenic,fevers low wbc/plt/neutrophil counts right facial edema mri/ct scan reviewed no drainable collection noted clinically continue antibiotics warm compress c/w xerostomia --> right parotid duct blockage - sialadenitis monitor if drainable collection occurs or if symptomatic dentally Adair Fortune DMD Apr 30, 2017 06:35
[2017-04-30] MEDS: SODIUM CHLOR 0.9% 1000 ML INJ 1,000 ML IV SCH ×2 (06:48→17:25)
--- NOTE | 2017-04-30 07:04 | MB ---
cc: SAMM FORTUNE DMD DATE OF CONSULTATION April 30, 2017. REASON FOR CONSULTATION The patient has right facial edema. HISTORY OF PRESENT ILLNESS This is a 57-year-old female with a past history of thrombocytopenia, neutropenia with acute myelogenous leukemia who was admitted with fever and cough. OMFS is consulted for right facial edema. I have seen and examined the patient this afternoon. The nurse is at bedside. She is alert, awake and oriented x3, in no acute distress, tolerating p.o. Denies any fever, chills, nausea, vomiting, any shortness of breath or any difficulty breathing now. PAST MEDICAL HISTORY 1. Acute myelogenous leukemia. 2. Rheumatoid arthritis. 3. Cervical cancer. 4. C. difficile. 5. COPD. PAST SURGICAL HISTORY 1. Tonsillectomy. 2. Cholecystectomy. 3. Port placement. ALLERGIES CEFEPIME. LATEX. SULFA. SOCIAL HISTORY Denies alcohol, tobacco and any illicit drug use. She quit smoking 15 years ago. PHYSICAL EXAMINATION VITAL SIGNS: Temperature 99.8, pulse is 97, respiratory rate 12, blood pressure 130/82. GENERAL: A well-groomed female in no acute distress. HEENT: Palpation of the right side of the face lateral to the right side of the mandible has some tenderness but no erythema that is noted. It is soft. No drainable collection that is noted there. No neck edema that is noted. NECK: Trachea is midline. INTRAORAL EXAM: No trismus noted. The patient opens up wide. No elevation of floor of the mouth or the tongue. There is no deviation of the uvula. Palpation of the floor of the mandible going all the down to the posterior medial aspect of the mandible - no tenderness. No collection noted. Palpation on the buccal vestibule of the mandible on the lateral aspect again with no edema that is noted. No tenderness to palpation or percussion on the two remaining molar teeth in the back, #30 and 31. She has got some tenderness to palpation of the right soft tissue lateral on the mandible/cheek region. I tried to milk the parotid duct. I get some minimal amount of saliva but not a lot. She has some tenderness on trying to milk the parotid gland. IMAGING STUDIES CT scan of the facial bones shows some edema on the right side of the soft tissue of the mandible but I do not see any drainable collection noted. A large lymph node is noted. LABORATORY DATA White count is 1.5 with an H&H of 8.5, 25.1 with platelets of 36. IMPRESSION AND PLAN This is a 57-year female admitted for neutropenia management fever, acute myelogenous leukemia and now with right-sided facial swelling lateral to the right side of the mandible on the soft tissue. At this point I do not see any drainable collection. The CT scan of the neck/face does not appear to have any dental origin at this point. Would suspect sialadenitis as she has some dry mouth. The dry mouth could be secondary to decreased salivary function of the right parotid gland versus parotiditis. So possible infection/inflammation of the right parotid Stensen's duct secondary to xerostomia. We will recommend to continue the antibiotics, warm compress, sugar-free lemon candy if it is available. We ill continue to follow. She is already on vancomycin, azithromycin, metronidazole, Micafungin. Samm Fortune DMD FLOOR COVERING INSTALLER/SSB /4:41 PM /6:37 AM
[2017-04-30] MEDS ORDERED: PHARMACY ORDERED LAB ONE (07:45)
[2017-04-30] MEDS: HYDROCHLOROTHIAZIDE 25 MG TAB PO SCH (08:27)
[2017-04-30] MEDS: amLODIPine BESYLATE 5 MG TAB PO SCH (08:27)
[2017-04-30] MEDS: CARVEDILOL 3.125 MG TAB PO SCH (08:27)
[2017-04-30] MEDS: predniSONE 5 MG TAB PO SCH ×2 (08:28→21:21)
[2017-04-30] MEDS: VANCOMYCIN INJ 1,000 MG in SODIUM CHLOR 0.9% 250 ML INJ 250 ML IV SCH (08:28)
[2017-04-30] MEDS: LACTOBACILLUS ACIDOPHILUS TAB PO SCH ×2 (08:28→21:22)
[2017-04-30] MEDS: LOSARTAN 50 MG TAB PO SCH (08:28)
[2017-04-30] MEDS ORDERED: NON-FORMULARY DRUG (Losartan-Hydrochlorothiazide 1 TAB) PO SCH (09:00)
--- NOTE | 2017-04-30 09:10 | RADRPT ---
EXAM DATE/TIME: 04/30/2017 08:41 [facility] COMPARISON: CT ABDOMEN & PELVIS W CONTRAST, December 03, 2016, 14:15. CHEST SINGLE AP, December 01, 2016, 19:28. CHEST SINGLE AP, April 18, 2017, 16:38. INDICATIONS : Fever and cough. MEDICAL HISTORY : Leukemia. SURGICAL HISTORY : Infusaport ENCOUNTER: Initial ACUITY: 1 week PAIN SCORE: 3/10 LOCATION: Right chest FINDINGS: Stable right IJ [id number]. No new focal pleural-parenchymal opacities. Cardiomediastinal contours are stable. Bony thorax is intact. CONCLUSION: 1. No acute abnormality or significant interval change. Jim Pink MD on April 30, 2017 at 9:06 Board Certified Radiologist. This report was verified electronically.
[2017-04-30] MEDS: MORPHINE SULFATE 2 MG/ML INJ IV PUSH PRN ×4 (10:37→21:21)
[2017-04-30 13:25] LABS: HEMATOCRIT 24.1 % (35.0-46.0); HEMOGLOBIN 7.9 GM/DL (11.6-15.3); MEAN CORPUSCULAR HEMOGLOBIN 30.2 PG (27.0-34.0); MEAN CORPUSCULAR HGB CONC 32.8 % (32.0-36.0); MEAN PLATELET VOLUME 9.3 FL (7.0-11.0); PLATELET COUNT 41 TH/MM3 (150-450); RED BLOOD COUNT 2.62 MIL/MM3 (4.00-5.30); RED CELL DISTRIBUTION WIDTH 20.3 % (11.6-17.2); WHITE BLOOD COUNT 2.3 TH/MM3 (4.0-11.0)
--- NOTE | 2017-04-30 13:37 | PD.ONC.PN ---
Subjective Subjective Remarks Tmax 99.7 overnight. Patient continuing to have pain in her right jaw. She bit down on a cracker earlier today and had a sharp pain which quickly subsided. She has been trying the lemon drops suggested by Dr. Fortune. She reports, "yeah , I guess they've helped a little." Reports she has a worsening cough. Objective Data Date Time Temp Pulse Resp B/P (MAP) Pulse Ox O2 Delivery O2 Flow Rate FiO2 04/30/17 13:02 98.8 86 18 119/73 (88) 94 04/30/17 08:01 99.7 81 18 119/76 (90) 97 04/30/17 07:45 78 04/30/17 05:05 18 04/30/17 04:09 99.0 105 23 161/81 (107) 95 04/30/17 04:01 103 04/30/17 00:10 92 04/29/17 22:56 16 04/29/17 22:46 99.1 105 17 106/54 (71) 98 04/29/17 21:20 99.2 98 21 126/78 (94) 96 04/29/17 20:34 104 04/29/17 17:15 126 04/29/17 16:53 99.8 104 16 142/85 (104) 92 04/29/17 14:41 99.5 97 12 130/82 (98) 04/30/17 04/30/17 04/30/17 07:00 15:00 23:00 Intake Total 1318 ml Output Total 500 ml Balance 818 ml Result Diagram: 04/30/17 1300 04/29/17 1304 Laboratory Results Laboratory Tests Test 04/30/17 08:00 04/30/17 13:00 Vancomycin Level Trough 7.4 MCG/ML White Blood Count 2.3 TH/MM3 Red Blood Count 2.62 MIL/MM3 Hemoglobin 7.9 GM/DL Hematocrit 24.1 % Mean Corpuscular Volume 92.0 FL Mean Corpuscular Hemoglobin 30.2 PG Mean Corpuscular Hemoglobin Concent 32.8 % Red Cell Distribution Width 20.3 % Platelet Count 41 TH/MM3 Mean Platelet Volume 9.3 FL CBC Comment AUTO DIFF Culture Results Microbiology Date/Time Source Procedure Growth Status 04/28/17 17:57 Blood Peripheral Aerobic Blood Culture - Preliminary NO GROWTH IN 2 DAYS Resulted 04/28/17 17:57 Blood Peripheral Anaerobic Blood Culture - Preliminary NO GROWTH IN 2 DAYS Resulted 04/28/17 16:35 Blood Peripheral Aerobic Blood Culture - Preliminary NO GROWTH IN 2 DAYS Resulted 04/28/17 16:35 Blood Peripheral Anaerobic Blood Culture - Preliminary NO GROWTH IN 2 DAYS Resulted Imaging Studies Last 24 hours Impressions Chest X-Ray 04/30/17 0000 Signed Impressions: Service Date/Time: Sunday, April 30, 2017 08:41 - CONCLUSION: 1. No acute abnormality or significant interval change. Jim Pink MD Administered Medications Medications (Trade) Dose Ordered Sig/Zeynep Route PRN Reason Start Time Stop Time Status Last Admin Dose Admin Al Hydrox/Mg Hydrox/Simethicone (Mag-Al Plus Susp Liq) 30 ml Q4H PRN PO INDIGESTION 04/28/17 15:00 04/30/17 08:38 Acetaminophen (Tylenol) 650 mg Q4H PRN PO TEMP> 100.5F 04/28/17 15:00 04/30/17 04:06 Ondansetron HCl (Zofran Inj) 4 mg Q6H PRN IV PUSH nausea 04/28/17 15:00 04/29/17 18:55 Filgrastim (Neupogen Inj) 300 mcg DAILY@14 SQ 04/29/17 14:00 04/29/17 14:35 Aztreonam 2000 mg/ Sodium Chloride 100 ml @ 200 mls/hr Q8H IV 04/28/17 17:00 04/30/17 10:37 Metronidazole (Flagyl) 500 mg Q8HR PO 04/28/17 17:00 04/30/17 04:07 Micafungin Sodium 150 mg/Sodium Chloride 100 ml @ 100 mls/hr Q24H IV 04/28/17 18:00 04/29/17 18:00 Sodium Chloride 1,000 ml @ 84 mls/hr [id number] IV 04/28/17 17:45 04/30/17 06:48 Amlodipine Besylate (Norvasc) 5 mg DAILY PO 04/30/17 09:00 04/30/17 08:27 Carvedilol (Coreg) 3.125 mg DAILY PO 04/30/17 09:00 04/30/17 08:27 Lactobacillus Acidophilus (Lactinex) 1 tab BID PO 04/29/17 21:00 04/30/17 08:28 Prednisone (Deltasone) 2.5 mg BID PO 04/29/17 21:00 04/30/17 08:28 Morphine Sulfate (Morphine Inj) 2 mg Q3H PRN IV PUSH pain>5 04/29/17 11:30 04/30/17 10:37 Losartan Potassium (Cozaar) 100 mg DAILY PO 04/30/17 09:00 04/30/17 08:28 Hydrochlorothiazide (Hydrodiuril) 25 mg DAILY PO 04/30/17 09:00 04/30/17 08:27 Guaifenesin/ Dextromethorphan (Robitussin Dm 200-20 Mg/10 ml Liq) 10 ml Q4H PRN PO COUGH 04/30/17 00:45 04/30/17 08:38 Objective Remarks GENERAL: Middle aged female sitting up in bed in [facility]. SKIN: Warm and dry. HEAD: Normocephalic. EYES: No injection or drainage. NECK: Supple, trachea midline. CARDIOVASCULAR: Regular rate and rhythm. RESPIRATORY: Breath sounds equal bilaterally. No accessory muscle use. GASTROINTESTINAL: Abdomen soft, non-tender, nondistended. EXTREMITIES: No cyanosis NEUROLOGICAL: awake and alert, normal speech. moving all extremities. Assessment/Plan Problem List: (1) Acute myeloid leukemia ICD Codes: C92.00 - Acute myeloblastic leukemia, not having achieved remission Status: Acute Plan: h/o AML went into remission, recurred pending BMT. Current on Dacogen and Rydapt (d8-21) Admitted with neutropenic fever and pancytopenia. (2) Neutropenic fever ICD Codes: D70.9 - Neutropenia, unspecified; R50.81 - Fever presenting with conditions classified elsewhere Status: Acute Plan: -- R jaw swelling, MRI reveal abscess/fluid collection. --on Azactam, Flagyl, Micafungin Assessment 57y/o woman with relapse AML on Dacogen and Rydapt with pancytopenia admitted w / neutropenic fever, jaw source of fever. Plan 1. consult ENT re: pain right jaw, d/t ?abscess 2. continue antibiotics per infectious disease. 3. continue supportive care. Attending Statement The exam, history, and the medical decision-making described in the above note were completed with the assistance of the mid-level provider. I reviewed and agree with the findings presented. I attest that I had a [id number] encounter with the patient on the same day, and personally performed and documented my assessment and findings in the medical record. Pt seen and examined. Discussed w/Dr. Fortune, appreciate consult from Dr. Lopes. Needed help to determine source of fever/infection. Pt using sugar free lemon drop candy and is helping. Continue to monitor fever and cultures. Hopes to DC with a plan once ANC recover for next cycle Dacogen as out pt. Problem Qualifiers (1) Acute myeloid leukemia: Qualified Codes: C92.02 - Acute myeloblastic leukemia, in relapse Julianna Mcdaniel Apr 30, 2017 13:37 Elsi Levin MD Apr 30, 2017 18:12
[2017-04-30] MEDS ORDERED: SODIUM CHLOR 0.9% 250 ML INJ 250 ML IV ONE (13:45)
[2017-04-30 13:51] LABS: ALBUMIN 2.8 GM/DL (3.4-5.0); ALT (GPT) 17 U/L (10-53); AST (GOT) 11 U/L (15-37); BICARBONATE 27.6 MEQ/L (21.0-32.0); BLOOD UREA NITROGEN 8 MG/DL (7-18); CALCIUM 8.6 MG/DL (8.5-10.1); CHLORIDE 107 MEQ/L (98-107); CREATININE 0.67 MG/DL (0.50-1.00); GLOMERULAR FILTRATION RATE 90 ML/MIN (>89); GLUCOSE,RANDOM 140 MG/DL (74-106); SODIUM (NA) 142 MEQ/L (136-145)
[2017-04-30 13:54] LABS: ALKALINE PHOSPHATASE 60 U/L (45-117); TOTAL BILIRUBIN ADULT 0.9 MG/DL (0.2-1.0); TOTAL PROTEIN 6.4 GM/DL (6.4-8.2)
[2017-04-30] MEDS ORDERED: diphenhydrAMINE HCL 25 MG CAP PO PRN (14:00)
[2017-04-30 14:02] LABS: BANDS 12 % (0-6); BLASTS 2 % (0-0); CORRECTED NUCLEATED RBC 3 /100 WBC (0-0); DOHLE BODIES PRESENT (NONE SEEN); LYMPHOCYTES 26 % (9-44); METAMYELOCYTES 12 % (0-1); MONOCYTES 3 % (0-8); NEUTROPHIL # MANUAL DIFF 1.5 TH/MM3 (1.8-7.7); NUCLEATED RED BLOOD CELL 3 (0-0); POLYS (SEG NEUTROPHILS) 42 % (16-70); TOXIC GRANULATION 1+ (NORMAL); TOXIC VACUOLATION PRESENT (NONE SEEN)
[2017-04-30] MEDS: FILGRASTIM 300 MCG/ML VIAL SQ SCH (14:02)
--- NOTE | 2017-04-30 15:46 | HHI.IDPN ---
Note Infectious Disease Note Patient still has pain in the r. jaw. Afebrile. No HOOPER currently. No SOB. PAST MEDICAL HISTORY 1. Acute myelogenous leukemia. 2. Rheumatoid arthritis. 3. Lupus. 4. Chronic obstructive pulmonary disease. 5. Cholecystectomy. 6. Tonsillectomy. 7. Cervical cancer. 8. Port placement. 9. History of C-difficile in November 2016. ALLERGIES CEFEPIME, SULFA, LATEX. MEDICATIONS Current Medications Medications (Trade) Dose Ordered Sig/Zeynep Route PRN Reason Start Time Stop Time Status Last Admin Dose Admin Magnesium Hydroxide (Milk Of Magnesia Liq) 15 ml DAILY PRN PO CONSTIPATION 04/28/17 15:00 Prochlorperazine Edisylate (Compazine Inj) 10 mg Q4H PRN IV PUSH NAUSEA OR VOMITING 04/28/17 15:00 Loperamide HCl (Imodium) 2 mg UNSCH PRN PO DIARRHEA 04/28/17 15:00 Al Hydrox/Mg Hydrox/Simethicone (Mag-Al Plus Susp Liq) 30 ml Q4H PRN PO INDIGESTION 04/28/17 15:00 Alteplase, Recombinant (Cathflo Activase Inj) 2 mg UNSCH PRN IVF SEE LABEL COMMENTS 04/28/17 15:00 Acetaminophen (Tylenol) 650 mg Q4H PRN PO PAIN SCALE 1-3 OR TEMP> 100.5F 04/28/17 15:00 04/29/17 11:39 Ondansetron HCl (Zofran Inj) 4 mg Q6H PRN IV PUSH nausea 04/28/17 15:00 04/28/17 21:59 Filgrastim (Neupogen Inj) 300 mcg DAILY@14 SQ 04/29/17 14:00 Vancomycin HCl 1000 mg/Sodium Chloride 250 ml @ 250 mls/hr Q12H IV 04/28/17 20:00 04/29/17 08:38 Aztreonam 2000 mg/ Sodium Chloride 100 ml @ 200 mls/hr Q8H IV 04/28/17 17:00 04/29/17 12:17 Metronidazole (Flagyl) 500 mg Q8HR PO 04/28/17 17:00 04/29/17 04:45 Micafungin Sodium 150 mg/Sodium Chloride 100 ml @ 100 mls/hr Q24H IV 04/28/17 18:00 04/28/17 19:37 Sodium Chloride 1,000 ml @ 84 mls/hr [id number] IV 04/28/17 17:45 04/28/17 18:21 Amlodipine Besylate (Norvasc) 5 mg DAILY PO 04/30/17 09:00 Carvedilol (Coreg) 3.125 mg DAILY PO 04/30/17 09:00 Lactobacillus Acidophilus (Lactinex) 1 tab BID PO 04/29/17 21:00 Prednisone (Deltasone) 2.5 mg BID PO 04/29/17 21:00 Morphine Sulfate (Morphine Inj) 2 mg Q3H PRN IV PUSH pain>5 04/29/17 11:30 Lorazepam (Ativan Inj) 1 mg UNSCH X1 PRN IV PUSH claustrophobia with morphine 04/29/17 11:45 04/29/17 23:59 04/29/17 12:10 Losartan Potassium (Cozaar) 100 mg DAILY PO 04/30/17 09:00 Hydrochlorothiazide (Hydrodiuril) 25 mg DAILY PO 04/30/17 09:00 SOCIAL HISTORY No tobacco. Occasional alcohol. No illicit drugs. OBJECTIVE: Vital Signs Date Time Temp Pulse Resp B/P (MAP) Pulse Ox O2 Delivery O2 Flow Rate FiO2 04/29/17 08:48 98.4 94 16 129/82 (98) 95 04/29/17 05:46 16 04/29/17 04:41 99.6 111 23 159/90 (113) 95 04/29/17 04:06 86 04/29/17 00:12 96 04/28/17 23:15 100.7 99 17 117/66 (83) 95 04/28/17 20:01 98 04/28/17 19:54 100.0 96 20 149/80 (103) 95 04/28/17 17:16 98.7 104 18 123/80 (94) 96 04/28/17 14:40 102.0 112 20 146/96 (113) 96 Microbiology Date/Time Source Procedure Growth Status 04/28/17 17:57 Blood Peripheral Aerobic Blood Culture - Preliminary NO GROWTH IN 1 DAY Resulted 04/28/17 17:57 Blood Peripheral Anaerobic Blood Culture - Preliminary NO GROWTH IN 1 DAY Resulted 04/28/17 16:35 Blood Peripheral Aerobic Blood Culture - Preliminary NO GROWTH IN 1 DAY Resulted 04/28/17 16:35 Blood Peripheral Anaerobic Blood Culture - Preliminary NO GROWTH IN 1 DAY Resulted IMAGING: Neck CT 04/29/17 0000 Signed Impressions: Service Date/Time: April 10:31 - CONCLUSION: 1. Solitary mildly enlarged right submandibular lymph node. Mild inflammatory change seen directly adjacent to the body of the mandible. This would suggest an infectious or inflammatory process with reactive adenopathy. No abscess or CT evidence to suggest osteomyelitis. No mass. Troy Pacheco Jr., MD Face MRI 04/28/17 0000 Signed Impressions: Service Date/Time: Friday, April 28, 2017 21:04 - CONCLUSION: Evidence of right perimandibular cellulitis and abscess with enhancement both medial and lateral to the body and ramus of the mandible. Focal 1.4 cm fluid collection inferior to the posterior body of the mandible. No abnormal enhancement with the marrow of the mandible. Troy Clarke MD OBJECTIVE: Vital Signs Date Time Temp Pulse Resp B/P (MAP) Pulse Ox O2 Delivery O2 Flow Rate FiO2 04/29/17 08:48 98.4 94 16 129/82 (98) 95 04/29/17 05:46 16 04/29/17 04:41 99.6 111 23 159/90 (113) 95 04/29/17 04:06 86 04/29/17 00:12 96 04/28/17 23:15 100.7 99 17 117/66 (83) 95 04/28/17 20:01 98 04/28/17 19:54 100.0 96 20 149/80 (103) 95 04/28/17 17:16 98.7 104 18 123/80 (94) 96 04/28/17 14:40 102.0 112 20 146/96 (113) 96 Microbiology Date/Time Source Procedure Growth Status 04/28/17 17:57 Blood Peripheral Aerobic Blood Culture - Preliminary NO GROWTH IN 1 DAY Resulted 04/28/17 17:57 Blood Peripheral Anaerobic Blood Culture - Preliminary NO GROWTH IN 1 DAY Resulted 04/28/17 16:35 Blood Peripheral Aerobic Blood Culture - Preliminary NO GROWTH IN 1 DAY Resulted 04/28/17 16:35 Blood Peripheral Anaerobic Blood Culture - Preliminary NO GROWTH IN 1 DAY Resulted IMAGING: Neck CT 04/29/17 0000 Signed Impressions: Service Date/Time: April 10:31 - CONCLUSION: 1. Solitary mildly enlarged right submandibular lymph node. Mild inflammatory change seen directly adjacent to the body of the mandible. This would suggest an infectious or inflammatory process with reactive adenopathy. No abscess or CT evidence to suggest osteomyelitis. No mass. Troy Pacheco Jr., MD Face MRI 04/28/17 0000 Signed Impressions: Service Date/Time: Friday, April 28, 2017 21:04 - CONCLUSION: Evidence of right perimandibular cellulitis and abscess with enhancement both medial and lateral to the body and ramus of the mandible. Focal 1.4 cm fluid collection inferior to the posterior body of the mandible. No abnormal enhancement with the marrow of the mandible. Troy Clarke MD PHYSICAL EXAMINATION GENERAL: No acute distress but appears chronically ill. HEENT: Right side of the face has swelling and is warm. Mild erythema at both cheeks. There is tenderness on palpation of the right face. Extraocular movements grossly intact. Pupils reactive to light. No icterus. Oropharynx moist mucosa without lesion. NECK: Supple without adenopathy. LUNGS: Clear breath sounds. HEART: Regular S1-S2 without murmurs, rubs, or gallops. ABDOMEN: Bowel sounds present. Soft. Obese. Nontender. EXTREMITIES: No clubbing, cyanosis or edema. SKIN: No rash. NEUROLOGIC: No gross focal findings. PSYCHIATRIC: Calm and cooperative. IMPRESSION 1. Neutropenic fever. Patient with profound neutropenia. 2. Acute myeloblastic leukemia. 3. Perimandibular cellulitis. RECOMMENDATIONS 1. Continue vancomycin. 2. Cont aztreonam. 3. Cont metronidazole. 4. Cont micafungin. 5. Monitor blood cultures. 6. Monitor temperature. Jim Grande MD Apr 30, 2017 15:46
--- NOTE | 2017-04-30 16:00 | HHI.IDPN ---
Note Infectious Disease Note Patient still has pain in the r. jaw. No other complaints. Afebrile. No HOOPER currently. No SOB. PAST MEDICAL HISTORY 1. Acute myelogenous leukemia. 2. Rheumatoid arthritis. 3. Lupus. 4. Chronic obstructive pulmonary disease. 5. Cholecystectomy. 6. Tonsillectomy. 7. Cervical cancer. 8. Port placement. 9. History of C-difficile in November 2016. ALLERGIES CEFEPIME, SULFA, LATEX. OBJECTIVE: Vital Signs Date Time Temp Pulse Resp B/P (MAP) Pulse Ox O2 Delivery O2 Flow Rate FiO2 04/30/17 13:02 98.8 86 18 119/73 (88) 94 04/30/17 08:01 99.7 81 18 119/76 (90) 97 04/30/17 07:45 78 04/30/17 05:05 18 04/30/17 04:09 99.0 105 23 161/81 (107) 95 04/30/17 04:01 103 04/30/17 00:10 92 04/29/17 22:56 16 04/29/17 22:46 99.1 105 17 106/54 (71) 98 04/29/17 21:20 99.2 98 21 126/78 (94) 96 04/29/17 20:34 104 04/29/17 17:15 126 04/29/17 16:53 99.8 104 16 142/85 (104) 92 Laboratory Tests Test 04/29/17 13:04 04/30/17 13:00 White Blood Count 1.5 TH/MM3 2.3 TH/MM3 Red Blood Count 2.76 MIL/MM3 2.62 MIL/MM3 Hemoglobin 8.5 GM/DL 7.9 GM/DL Hematocrit 25.1 % 24.1 % Mean Corpuscular Volume 90.7 FL 92.0 FL Mean Corpuscular Hemoglobin 30.6 PG 30.2 PG Mean Corpuscular Hemoglobin Concent 33.7 % 32.8 % Red Cell Distribution Width 20.3 % 20.3 % Platelet Count 36 TH/MM3 41 TH/MM3 Mean Platelet Volume 9.1 FL 9.3 FL Neutrophils (%) (Auto) 57.7 % Lymphocytes (%) (Auto) 32.8 % Monocytes (%) (Auto) 5.9 % Eosinophils (%) (Auto) 2.2 % Basophils (%) (Auto) 1.4 % Neutrophils # (Auto) 0.8 TH/MM3 Lymphocytes # (Auto) 0.5 TH/MM3 Monocytes # (Auto) 0.1 TH/MM3 Eosinophils # (Auto) 0.0 TH/MM3 Basophils # (Auto) 0.0 TH/MM3 CBC Comment AUTO DIFF AUTO DIFF Differential Total Cells Counted 100 100 Neutrophils % (Manual) 56 % 42 % Band Neutrophils % 2 % 12 % Lymphocytes % 33 % 26 % Monocytes % 4 % 3 % Eosinophils % 4 % 3 % Basophils % 1 % Neutrophils # (Manual) 0.9 TH/MM3 1.5 TH/MM3 Nucleated Red Blood Cells 5 /100 WBC 3 /100 WBC Differential Comment FINAL DIFF MANUAL FINAL DIFF MANUAL Platelet Estimate LOW LOW Platelet Morphology Comment NORMAL ENLARGED Basophilic Stippling FAINT Metamyelocytes 12 % Blastocytes 2 % Toxic Granulation 1+ Toxic Vacuolation PRESENT Dohle Bodies PRESENT Laboratory Tests Test 04/29/17 13:04 04/30/17 13:00 Blood Urea Nitrogen 8 MG/DL 8 MG/DL Creatinine 0.68 MG/DL 0.67 MG/DL Random Glucose 109 MG/DL 140 MG/DL Total Protein 7.1 GM/DL 6.4 GM/DL Albumin 3.0 GM/DL 2.8 GM/DL Calcium Level 8.8 MG/DL 8.6 MG/DL Alkaline Phosphatase 59 U/L 60 U/L Aspartate Amino Transf (AST/SGOT) 12 U/L 11 U/L Alanine Aminotransferase (ALT/SGPT) 19 U/L 17 U/L Total Bilirubin 1.0 MG/DL 0.9 MG/DL Sodium Level 140 MEQ/L 142 MEQ/L Potassium Level 3.7 MEQ/L 3.7 MEQ/L Chloride Level 104 MEQ/L 107 MEQ/L Carbon Dioxide Level 27.2 MEQ/L 27.6 MEQ/L Anion Gap 9 MEQ/L 7 MEQ/L Estimat Glomerular Filtration Rate 89 ML/MIN 90 ML/MIN Microbiology Date/Time Source Procedure Growth Status 04/28/17 17:57 Blood Peripheral Aerobic Blood Culture - Preliminary NO GROWTH IN 2 DAYS Resulted 04/28/17 17:57 Blood Peripheral Anaerobic Blood Culture - Preliminary NO GROWTH IN 2 DAYS Resulted 04/28/17 16:35 Blood Peripheral Aerobic Blood Culture - Preliminary NO GROWTH IN 2 DAYS Resulted 04/28/17 16:35 Blood Peripheral Anaerobic Blood Culture - Preliminary NO GROWTH IN 2 DAYS Resulted IMAGING: Neck CT 04/29/17 0000 Signed Impressions: Service Date/Time: April 10:31 - CONCLUSION: 1. Solitary mildly enlarged right submandibular lymph node. Mild inflammatory change seen directly adjacent to the body of the mandible. This would suggest an infectious or inflammatory process with reactive adenopathy. No abscess or CT evidence to suggest osteomyelitis. No mass. Troy Pacheco Jr., MD Face MRI 04/28/17 0000 Signed Impressions: Service Date/Time: Friday, April 28, 2017 21:04 - CONCLUSION: Evidence of right perimandibular cellulitis and abscess with enhancement both medial and lateral to the body and ramus of the mandible. Focal 1.4 cm fluid collection inferior to the posterior body of the mandible. No abnormal enhancement with the marrow of the mandible. Troy Clarke MD PHYSICAL EXAMINATION GENERAL: No acute distress. HEENT: Right side of the face has swelling and is warm. Mild erythema at both cheeks. There is tenderness on palpation of the right face. Extraocular movements grossly intact. Pupils reactive to light. No icterus. Oropharynx moist mucosa without lesion. NECK: Supple without adenopathy. LUNGS: Clear breath sounds. HEART: Regular S1-S2 without murmurs, rubs, or gallops. ABDOMEN: Bowel sounds present. Soft. Obese. Nontender. EXTREMITIES: No clubbing, cyanosis or edema. SKIN: No rash. NEUROLOGIC: No gross focal findings. PSYCHIATRIC: Calm and cooperative. IMPRESSION 1. Neutropenic fever. Neutropenia improved. Cultures negative. 2. Acute myeloblastic leukemia. 3. Perimandibular cellulitis. ? sialoadenitis. No drainable abscess per MFS. RECOMMENDATIONS 1. Continue vancomycin. 2. Cont aztreonam. 3. Cont metronidazole. 4. Cont micafungin. 5. Monitor blood cultures. 6. Monitor temperature. If blood culture remain negative and she remains afebrile, can transition to PO Augmentin 825mg bid x 7 days and Diflucan 100 mg PO daily X 7 DAYS. I will be off next 2 days. Please call ID if input needed in next 2 days. Jim Grande MD Apr 30, 2017 16:00
[2017-04-30] MEDS: MICAFUNGIN INJ 150 MG in SODIUM CHLORIDE 0.9% INJ 100 ML IV SCH (17:30)
--- NOTE | 2017-04-30 19:24 | HHI.PR ---
Subjective Remarks c/o pain in the right jaw. Afebrile. Objective Vitals Vital Signs Date Time Temp Pulse Resp B/P (MAP) Pulse Ox O2 Delivery O2 Flow Rate FiO2 04/30/17 19:04 99.4 92 18 123/71 94 04/30/17 18:17 99.4 96 18 114/63 94 04/30/17 13:02 98.8 86 18 119/73 (88) 94 04/30/17 08:01 99.7 81 18 119/76 (90) 97 04/30/17 07:45 78 04/30/17 05:05 18 04/30/17 04:09 99.0 105 23 161/81 (107) 95 04/30/17 04:01 103 04/30/17 00:10 92 04/29/17 22:56 16 04/29/17 22:46 99.1 105 17 106/54 (71) 98 04/29/17 21:20 99.2 98 21 126/78 (94) 96 04/29/17 20:34 104 I/O 04/29/17 04/29/17 04/29/17 04/30/17 04/30/17 04/30/17 07:00 15:00 23:00 07:00 15:00 23:00 Intake Total 456 ml 250 ml 1500 ml 1318 ml 350 ml Output Total 500 ml Balance 456 ml 250 ml 1500 ml 818 ml 350 ml Intake Oral 1400 ml 480 ml IV Total 456 ml 250 ml 100 ml 838 ml 350 ml Output Urine Total 500 ml # Voids 6 Result Diagram: 04/30/17 1300 04/30/17 1300 Imaging Last Impressions Chest X-Ray 04/30/17 0000 Signed Impressions: Service Date/Time: Sunday, April 30, 2017 08:41 - CONCLUSION: 1. No acute abnormality or significant interval change. Jim Pink MD Neck CT 04/29/17 0000 Signed Impressions: Service Date/Time: April 10:31 - CONCLUSION: 1. Solitary mildly enlarged right submandibular lymph node. Mild inflammatory change seen directly adjacent to the body of the mandible. This would suggest an infectious or inflammatory process with reactive adenopathy. No abscess or CT evidence to suggest osteomyelitis. No mass. Troy Pacheco Jr., MD Head Magnetic Resonance Angiography 04/29/17 0000 Signed Impressions: Service Date/Time: April 12:31 - CONCLUSION: Normal examination for a patient of this age. Jacinto Tello MD Face MRI 04/28/17 0000 Signed Impressions: Service Date/Time: Friday, April 28, 2017 21:04 - CONCLUSION: Evidence of right perimandibular cellulitis and abscess with enhancement both medial and lateral to the body and ramus of the mandible. Focal 1.4 cm fluid collection inferior to the posterior body of the mandible. No abnormal enhancement with the marrow of the mandible. Troy Clarke MD Objective Remarks GENERAL: This is a well-nourished, well-developed patient, nad.. SKIN: No rashes, ecchymoses or lesions. Cool and dry. Tactile fever HEAD: Atraumatic. Normocephalic. No temporal or scalp tenderness. EYES: No scleral icterus. No injection or drainage. ENT: Nose without bleeding, purulent drainage or septal hematoma. Airway patent. right mandibular area swelling and pain NECK: Trachea midline. No JVD. Supple, nontender, no meningeal signs. CARDIOVASCULAR: Regular rate and rhythm without murmurs, gallops, or rubs. RESPIRATORY: Clear to auscultation. Breath sounds equal bilaterally. No wheezes , rales, or rhonchi. GASTROINTESTINAL: Abdomen soft, non-tender, nondistended. . No guarding. MUSCULOSKELETAL: Extremities without clubbing, cyanosis, or edema. No calf tenderness. NEUROLOGICAL: Awake and alert. Motor and sensory grossly within normal limits. Normal speech. Medications and IVs Current Medications Medications (Trade) Dose Ordered Sig/Zeynep Route Start Time Stop Time Status Last Admin (Milk Of Magnesia Liq) 15 ml DAILY PRN PO 04/28/17 15:00 (Compazine Inj) 10 mg Q4H PRN IV PUSH 04/28/17 15:00 (Imodium) 2 mg UNSCH PRN PO 04/28/17 15:00 (Mag-Al Plus Susp Liq) 30 ml Q4H PRN PO 04/28/17 15:00 04/30/17 08:38 (Cathflo Activase Inj) 2 mg UNSCH PRN IVF 04/28/17 15:00 (Tylenol) 650 mg Q4H PRN PO 04/28/17 15:00 04/30/17 22:50 (Zofran Inj) 4 mg Q6H PRN IV PUSH 04/28/17 15:00 04/29/17 18:55 (Neupogen Inj) 300 mcg DAILY@14 SQ 04/29/17 14:00 04/30/17 14:02 Aztreonam 2000 mg/ Sodium Chloride 100 ml @ 200 mls/hr Q8H IV 04/28/17 17:00 04/30/17 17:00 (Flagyl) 500 mg Q8HR PO 04/28/17 17:00 04/30/17 21:21 Micafungin Sodium 150 mg/Sodium Chloride 100 ml @ 100 mls/hr Q24H IV 04/28/17 18:00 04/30/17 17:30 Sodium Chloride 1,000 ml @ 84 mls/hr [id number] IV 04/28/17 17:45 04/30/17 06:48 (Norvasc) 5 mg DAILY PO 04/30/17 09:00 04/30/17 08:27 (Coreg) 3.125 mg DAILY PO 04/30/17 09:00 04/30/17 08:27 (Lactinex) 1 tab BID PO 04/29/17 21:00 04/30/17 08:28 (Deltasone) 2.5 mg BID PO 04/29/17 21:00 04/30/17 21:21 (Morphine Inj) 2 mg Q3H PRN IV PUSH 04/29/17 11:30 04/30/17 21:21 (Cozaar) 100 mg DAILY PO 04/30/17 09:00 04/30/17 08:28 (Hydrodiuril) 25 mg DAILY PO 04/30/17 09:00 04/30/17 08:27 Pharmacy Profile Note 0 ml @ 0 mls/hr UNSCH OTHER 04/29/17 13:00 (Duoneb Neb) 1 ampule Q6HR NEB PRN NEB 04/30/17 02:00 (Robitussin Dm 200-20 Mg/10 ml Liq) 10 ml Q4H PRN PO 04/30/17 00:45 04/30/17 21:30 Vancomycin HCl 1250 mg/Sodium Chloride 262.5 ml @ 250 mls/hr Q12H IV 04/30/17 20:00 04/30/17 21:20 Miscellaneous Information SPECIFIC LAB TO BE LASH[facility]... ONCE ONCE .XX 05/02/17 07:45 05/02/17 07:46 Sodium Chloride 250 ml @ 15 mls/hr ONCE ONCE IV 04/30/17 13:45 05/01/17 06:24 (Tylenol) 650 mg Q4H PRN PO 04/30/17 14:00 05/01/17 13:59 04/30/17 16:51 (Benadryl) 25 mg Q4H PRN PO 04/30/17 14:00 05/01/17 13:59 04/30/17 16:51 A/P Problem List: (1) Sepsis ICD Code: A41.9 - Sepsis, unspecified organism Plan: Present on admission. Patient with fever and tachycardia. Due to neutropenic fevers. Mandibular abscess vs cellulitis, ? sialadenitis. Continue IV antibiotics as per ID - Currently on IV Vancomycin, Atreonam, Metronidazole and Micafungin. Blood cultures negative x 2 days. CXR negative, UA negative. (2) Neutropenic fever ICD Code: D70.9 - Neutropenia, unspecified; R50.81 - Fever presenting with conditions classified elsewhere Status: Acute Plan: IV antibiotics as above. ID following. CT of the neck shows solitary mildly enlarged right submandibular lymph node. Face MRI shows evidence of right submandibular cellulitis and absces. As per OMF no drainable collection and likely not abscess. As per OMFS patient has sialadenitis. (3) Acute myeloid leukemia ICD Code: C92.00 - Acute myeloblastic leukemia, not having achieved remission Status: Acute Plan: Medical oncology consulted. PAtient is pancytopenic currently on neupogen. Monitor cbc. (4) Pancytopenia ICD Code: D61.818 - Other pancytopenia Status: Acute Plan: On neupogen. counts trending up. monitor cbc. (5) Hypertension ICD Code: I10 - Essential (primary) hypertension Status: Chronic Plan: BP seems to be stable. Continue antihypertensive medications. (6) Hyperglycemia ICD Code: R73.9 - Hyperglycemia, unspecified Plan: Possibly steroid induced - patient is on prednisone. Check hemoglobin A1c. Problem Qualifiers (1) Acute myeloid leukemia: Qualified Codes: C92.02 - Acute myeloblastic leukemia, in relapse (2) Hypertension: Qualified Codes: I10 - Essential (primary) hypertension Devon Cain MD Apr 30, 2017 19:24
[2017-04-30] MEDS: VANCOMYCIN INJ 1,250 MG in SODIUM CHLOR 0.9% 250 ML INJ 250 ML IV SCH (21:20)
[2017-05-01] VITALS (10 sets, daily range): BP systolic 131–138; BP diastolic 72–89; PULSE 74–105; RESP 14–20; TEMP 97.3–101.7; O2SAT 95–98
[2017-05-01] MEDS: AZTREONAM INJ 2,000 MG in SODIUM CHLORIDE 0.9% INJ 100 ML IV SCH ×4 (01:00→23:50)
[2017-05-01 04:08] LABS: HEMATOCRIT 25.1 % (35.0-46.0); HEMOGLOBIN 8.2 GM/DL (11.6-15.3); MEAN CORPUSCULAR HGB CONC 32.6 % (32.0-36.0); MEAN PLATELET VOLUME 8.9 FL (7.0-11.0); PLATELET COUNT 41 TH/MM3 (150-450); RED BLOOD COUNT 2.82 MIL/MM3 (4.00-5.30); RED CELL DISTRIBUTION WIDTH 20.5 % (11.6-17.2); WHITE BLOOD COUNT 4.1 TH/MM3 (4.0-11.0)
[2017-05-01 04:38] LABS: BICARBONATE 26.2 MEQ/L (21.0-32.0); CALCIUM 8.4 MG/DL (8.5-10.1); CREATININE 0.7 MG/DL (0.50-1.00)
[2017-05-01 04:40] LABS: BANDS 7 % (0-6); BASOPHILS 2 % (0-2); CORRECTED NUCLEATED RBC 3 /100 WBC (0-0); DOHLE BODIES PRESENT (NONE SEEN); LYMPHOCYTES 27 % (9-44); METAMYELOCYTES 3 % (0-1); MONOCYTES 7 % (0-8); MYELOCYTES 1 % (0-0); NEUTROPHIL # MANUAL DIFF 2.4 TH/MM3 (1.8-7.7); NUCLEATED RED BLOOD CELL 3 (0-0); POLYS (SEG NEUTROPHILS) 48 % (16-70); TOXIC VACUOLATION PRESENT (NONE SEEN)
[2017-05-01] MEDS: metroNIDAZOLE 500 MG TAB PO SCH ×3 (05:44→21:03)
[2017-05-01] MEDS: SODIUM CHLOR 0.9% 1000 ML INJ 1,000 ML IV SCH ×3 (05:44→23:41)
[2017-05-01] MEDS: ACETAMINOPHEN 325 MG TAB PO PRN ×2 (05:45→21:03)
[2017-05-01] MEDS: VANCOMYCIN INJ 1,250 MG in SODIUM CHLOR 0.9% 250 ML INJ 250 ML IV SCH ×2 (08:00→21:04)
--- NOTE | 2017-05-01 08:11 | HHI.PR ---
Subjective Remarks pt seen and examined this morning reports feeling much better, no pain right face tolerating po well reports feeling better after chewing lemon candy smiling today Objective Vital Signs Date Time Temp Pulse Resp B/P (MAP) Pulse Ox O2 Delivery O2 Flow Rate FiO2 05/01/17 04:36 81 05/01/17 00:36 104 04/30/17 23:55 16 04/30/17 22:49 102.0 104 20 157/89 (111) 94 04/30/17 20:05 85 04/30/17 19:04 99.4 92 18 123/71 94 04/30/17 18:17 99.4 96 18 114/63 94 04/30/17 13:02 98.8 86 18 119/73 (88) 94 04/30/17 08:01 99.7 81 18 119/76 (90) 97 I/O 04/30/17 04/30/17 04/30/17 05/01/17 05/01/17 05/01/17 07:00 15:00 23:00 07:00 15:00 23:00 Intake Total 1318 ml 350 ml 400 ml 502.5 ml Output Total 500 ml 900 ml Balance 818 ml 350 ml 400 ml -397.5 ml Intake Oral 480 ml 240 ml IV Total 838 ml 350 ml 262.5 ml Packed Cells 400 ml Output Urine Total 500 ml 900 ml Result Diagram: 05/01/17 0354 05/01/17 0354 Objective Remarks right facial edema - significantly decreased, softer, no erythema no tenderness to palpation to right face/neck/parotid gland no neck edema opening wide, no elevation fom/tongue, no deviation of uvula no dental complaints, no edema right mandible/maxilla - areas involving dentition no palpable/drainable collection noted neutrophils/wbc count increased to normal levels no dental discomfort reviewed pt's dental panorex xray when seen in our office jan 2017 no decay/ abscess noted on remaining teeth in pt's mouth, bad dentition extracted Assessment and Plan Assessment and Plan AML,neutropenic,fevers low wbc/neutrophil counts - normalizing right facial edema significantly decreased, no tenderness no drainable collection noted clinically continue antibiotics warm compress c/w xerostomia --> right parotid duct blockage - sialadenitis/ verses parotiditis due to low wbc/neutrophiles/ aml d/w dr deveras yesterday appears resolving with abx/lemon drops pt much more comfortable.happier today no surgical intervention form oms standpoint f/up dr fortune when discharged - [phone] OMS signing off, recall as required Adair Fortune DMD May 01, 2017 08:11
--- NOTE | 2017-05-01 10:03 | PD.ONC.PN ---
Subjective Subjective Remarks 102F overnight. Patient feels much better today. states her swelling in her face has improved and her pain has improved. continues to have persistent cough. Objective Data Date Time Temp Pulse Resp B/P (MAP) Pulse Ox O2 Delivery O2 Flow Rate FiO2 05/01/17 08:00 79 05/01/17 07:15 97.3 89 14 131/74 (93) 96 05/01/17 04:36 81 05/01/17 00:36 104 04/30/17 23:55 16 04/30/17 22:49 102.0 104 20 157/89 (111) 94 04/30/17 20:05 85 04/30/17 19:04 99.4 92 18 123/71 94 04/30/17 18:17 99.4 96 18 114/63 94 04/30/17 13:02 98.8 86 18 119/73 (88) 94 05/01/17 05/01/17 05/01/17 07:00 15:00 23:00 Intake Total 502.5 ml Output Total 900 ml Balance -397.5 ml Result Diagram: 05/01/17 0354 05/01/17 0354 Laboratory Results Laboratory Tests Test 04/30/17 13:00 05/01/17 03:54 White Blood Count 2.3 TH/MM3 4.1 TH/MM3 Red Blood Count 2.62 MIL/MM3 2.82 MIL/MM3 Hemoglobin 7.9 GM/DL 8.2 GM/DL Hematocrit 24.1 % 25.1 % Mean Corpuscular Volume 92.0 FL 89.0 FL Mean Corpuscular Hemoglobin 30.2 PG 29.0 PG Mean Corpuscular Hemoglobin Concent 32.8 % 32.6 % Red Cell Distribution Width 20.3 % 20.5 % Platelet Count 41 TH/MM3 41 TH/MM3 Mean Platelet Volume 9.3 FL 8.9 FL CBC Comment AUTO DIFF AUTO DIFF Differential Total Cells Counted 100 100 Neutrophils % (Manual) 42 % 48 % Band Neutrophils % 12 % 7 % Lymphocytes % 26 % 27 % Monocytes % 3 % 7 % Eosinophils % 3 % 5 % Neutrophils # (Manual) 1.5 TH/MM3 2.4 TH/MM3 Metamyelocytes 12 % 3 % Nucleated Red Blood Cells 3 /100 WBC 3 /100 WBC Differential Comment FINAL DIFF MANUAL FINAL DIFF MANUAL Blastocytes 2 % Toxic Granulation 1+ Toxic Vacuolation PRESENT PRESENT Dohle Bodies PRESENT PRESENT Platelet Estimate LOW LOW Platelet Morphology Comment ENLARGED NORMAL Blood Urea Nitrogen 8 MG/DL 8 MG/DL Creatinine 0.67 MG/DL 0.70 MG/DL Random Glucose 140 MG/DL 130 MG/DL Total Protein 6.4 GM/DL Albumin 2.8 GM/DL Calcium Level 8.6 MG/DL 8.4 MG/DL Alkaline Phosphatase 60 U/L Aspartate Amino Transf (AST/SGOT) 11 U/L Alanine Aminotransferase (ALT/SGPT) 17 U/L Total Bilirubin 0.9 MG/DL Sodium Level 142 MEQ/L 141 MEQ/L Potassium Level 3.7 MEQ/L 3.7 MEQ/L Chloride Level 107 MEQ/L 106 MEQ/L Carbon Dioxide Level 27.6 MEQ/L 26.2 MEQ/L Anion Gap 7 MEQ/L 9 MEQ/L Estimat Glomerular Filtration Rate 90 ML/MIN 86 ML/MIN Basophils % 2 % Myelocytes 1 % Basophilic Stippling FAINT Culture Results Microbiology Date/Time Source Procedure Growth Status 05/01/17 03:54 Blood Peripheral Aerobic Blood Culture Pending Received 05/01/17 03:54 Blood Peripheral Anaerobic Blood Culture Pending Received 04/30/17 23:39 Blood Peripheral Aerobic Blood Culture Pending Received 04/30/17 23:39 Blood Peripheral Anaerobic Blood Culture Pending Received 04/28/17 17:57 Blood Peripheral Aerobic Blood Culture - Preliminary NO GROWTH IN 2 DAYS Resulted 04/28/17 17:57 Blood Peripheral Anaerobic Blood Culture - Preliminary NO GROWTH IN 2 DAYS Resulted 04/28/17 16:35 Blood Peripheral Aerobic Blood Culture - Preliminary NO GROWTH IN 2 DAYS Resulted 04/28/17 16:35 Blood Peripheral Anaerobic Blood Culture - Preliminary NO GROWTH IN 2 DAYS Resulted Administered Medications Medications (Trade) Dose Ordered Sig/Zeynep Route PRN Reason Start Time Stop Time Status Last Admin Dose Admin Al Hydrox/Mg Hydrox/Simethicone (Mag-Al Plus Susp Liq) 30 ml Q4H PRN PO INDIGESTION 04/28/17 15:00 04/30/17 08:38 Acetaminophen (Tylenol) 650 mg Q4H PRN PO TEMP> 100.5F 04/28/17 15:00 04/30/17 22:50 Ondansetron HCl (Zofran Inj) 4 mg Q6H PRN IV PUSH nausea 04/28/17 15:00 04/29/17 18:55 Filgrastim (Neupogen Inj) 300 mcg DAILY@14 SQ 04/29/17 14:00 04/30/17 14:02 Aztreonam 2000 mg/ Sodium Chloride 100 ml @ 200 mls/hr Q8H IV 04/28/17 17:00 05/01/17 01:00 Metronidazole (Flagyl) 500 mg Q8HR PO 04/28/17 17:00 05/01/17 05:44 Micafungin Sodium 150 mg/Sodium Chloride 100 ml @ 100 mls/hr Q24H IV 04/28/17 18:00 04/30/17 17:30 Sodium Chloride 1,000 ml @ 84 mls/hr [id number] IV 04/28/17 17:45 05/01/17 05:44 Amlodipine Besylate (Norvasc) 5 mg DAILY PO 04/30/17 09:00 04/30/17 08:27 Carvedilol (Coreg) 3.125 mg DAILY PO 04/30/17 09:00 04/30/17 08:27 Lactobacillus Acidophilus (Lactinex) 1 tab BID PO 04/29/17 21:00 04/30/17 08:28 Prednisone (Deltasone) 2.5 mg BID PO 04/29/17 21:00 04/30/17 21:21 Morphine Sulfate (Morphine Inj) 2 mg Q3H PRN IV PUSH pain>5 04/29/17 11:30 04/30/17 21:21 Losartan Potassium (Cozaar) 100 mg DAILY PO 04/30/17 09:00 04/30/17 08:28 Hydrochlorothiazide (Hydrodiuril) 25 mg DAILY PO 04/30/17 09:00 04/30/17 08:27 Guaifenesin/ Dextromethorphan (Robitussin Dm 200-20 Mg/10 ml Liq) 10 ml Q4H PRN PO COUGH 04/30/17 00:45 04/30/17 21:30 Vancomycin HCl 1250 mg/Sodium Chloride 262.5 ml @ 250 mls/hr Q12H IV 04/30/17 20:00 04/30/17 21:20 Diphenhydramine HCl (Benadryl) 25 mg Q4H PRN PO SEE LABEL COMMENTS 04/30/17 14:00 05/01/17 13:59 04/30/17 16:51 Objective Remarks GENERAL: Middle aged female sitting up in bed in nad. SKIN: Warm and dry. HEAD: Normocephalic. EYES: No injection or drainage. NECK: Supple, trachea midline. CARDIOVASCULAR: Regular rate and rhythm. RESPIRATORY: Breath sounds equal bilaterally. No accessory muscle use. GASTROINTESTINAL: Abdomen soft, non-tender, nondistended. EXTREMITIES: No cyanosis NEUROLOGICAL: aox3. normal speech. moving all extremities. Assessment/Plan Problem List: (1) Acute myeloid leukemia ICD Codes: C92.00 - Acute myeloblastic leukemia, not having achieved remission Status: Acute Plan: h/o AML went into remission, then recurred. awaiting repeat bone marrow biopsy Current on Dacogen and Rydapt (d8-21) Admitted with neutropenic fever and pancytopenia. (2) Neutropenic fever ICD Codes: D70.9 - Neutropenia, unspecified; R50.81 - Fever presenting with conditions classified elsewhere Status: Acute Plan: -- R jaw swelling, MRI reveal abscess/fluid collection. 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 Plan 1. continue antibiotics 2. monitor cbc Attending Statement The exam, history, and the medical decision-making described in the above note were completed with the assistance of the mid-level provider. I reviewed and agree with the findings presented. I attest that I had a [id number] encounter with the patient on the same day, and personally performed and documented my assessment and findings in the medical record. patient having worsening cough and continued fevers. lungs are clear. No obvious source for fever. will do ct of thorax without contrast as more sensitive then chest film. Problem Qualifiers (1) Acute myeloid leukemia: Qualified Codes: C92.02 - Acute myeloblastic leukemia, in relapse Julianna Mcdaniel May 01, 2017 10:02 Jarocho Knight MD May 01, 2017 11:59
[2017-05-01] MEDS: HYDROCHLOROTHIAZIDE 25 MG TAB PO SCH (10:13)
[2017-05-01] MEDS: CARVEDILOL 3.125 MG TAB PO SCH (10:13)
[2017-05-01] MEDS: amLODIPine BESYLATE 5 MG TAB PO SCH (10:13)
[2017-05-01] MEDS: LACTOBACILLUS ACIDOPHILUS TAB PO SCH ×2 (10:13→21:03)
[2017-05-01] MEDS: LOSARTAN 50 MG TAB PO SCH (10:13)
[2017-05-01] MEDS: predniSONE 5 MG TAB PO SCH ×2 (10:14→21:03)
--- NOTE | 2017-05-01 14:57 | HHI.PR ---
Subjective Remarks Follow-up neutropenic fever/AML/right parotid duct blockage 05/01/17-patient seen and examined, Tmax 102 however currently afebrile. Patient denies any more right jaw/facial pain however not much of an appetite Objective Vitals Vital Signs Date Time Temp Pulse Resp B/P (MAP) Pulse Ox O2 Delivery O2 Flow Rate FiO2 05/01/17 14:31 97.3 85 16 133/85 (101) 96 05/01/17 11:00 98.3 74 16 136/72 (93) 98 05/01/17 08:00 79 05/01/17 07:15 97.3 89 14 131/74 (93) 96 05/01/17 04:36 81 05/01/17 00:36 104 04/30/17 23:55 16 04/30/17 22:49 102.0 104 20 157/89 (111) 94 04/30/17 20:05 85 04/30/17 19:04 99.4 92 18 123/71 94 04/30/17 18:17 99.4 96 18 114/63 94 I/O 04/30/17 04/30/17 04/30/17 05/01/17 05/01/17 05/01/17 07:00 15:00 23:00 07:00 15:00 23:00 Intake Total 1318 ml 350 ml 400 ml 502.5 ml Output Total 500 ml 900 ml Balance 818 ml 350 ml 400 ml -397.5 ml Intake Oral 480 ml 240 ml IV Total 838 ml 350 ml 262.5 ml Packed Cells 400 ml Output Urine Total 500 ml 900 ml Result Diagram: 05/01/17 0354 05/01/17 0354 Imaging Last Impressions Chest X-Ray 04/30/17 0000 Signed Impressions: Service Date/Time: Sunday, April 30, 2017 08:41 - CONCLUSION: 1. No acute abnormality or significant interval change. Jim Pink MD Neck CT 04/29/17 0000 Signed Impressions: Service Date/Time: April 10:31 - CONCLUSION: 1. Solitary mildly enlarged right submandibular lymph node. Mild inflammatory change seen directly adjacent to the body of the mandible. This would suggest an infectious or inflammatory process with reactive adenopathy. No abscess or CT evidence to suggest osteomyelitis. No mass. Troy Pacheco Jr., MD Head Magnetic Resonance Angiography 04/29/17 0000 Signed Impressions: Service Date/Time: April 12:31 - CONCLUSION: Normal examination for a patient of this age. Jacinto Tello MD Face MRI 04/28/17 0000 Signed Impressions: Service Date/Time: Friday, April 28, 2017 21:04 - CONCLUSION: Evidence of right perimandibular cellulitis and abscess with enhancement both medial and lateral to the body and ramus of the mandible. Focal 1.4 cm fluid collection inferior to the posterior body of the mandible. No abnormal enhancement with the marrow of the mandible. Troy Clarke MD Objective Remarks GENERAL: NAD SKIN: Warm and dry. HEAD: Normocephalic. EYES: No scleral icterus. No injection or drainage. NECK: Supple, trachea midline. No JVD or lymphadenopathy. CARDIOVASCULAR: Regular rate and rhythm without murmurs, gallops, or rubs. RESPIRATORY: Breath sounds equal bilaterally. No accessory muscle use. GASTROINTESTINAL: Abdomen soft, non-tender, nondistended. MUSCULOSKELETAL: No cyanosis, or edema. BACK: Nontender without obvious deformity. No CVA tenderness. A/P Problem List: (1) Sepsis ICD Code: A41.9 - Sepsis, unspecified organism (2) Neutropenic fever ICD Code: D70.9 - Neutropenia, unspecified; R50.81 - Fever presenting with conditions classified elsewhere Status: Acute (3) Acute myeloid leukemia ICD Code: C92.00 - Acute myeloblastic leukemia, not having achieved remission Status: Acute (4) Pancytopenia ICD Code: D61.818 - Other pancytopenia Status: Acute (5) Hypertension ICD Code: I10 - Essential (primary) hypertension Status: Chronic (6) Hyperglycemia ICD Code: R73.9 - Hyperglycemia, unspecified Assessment and Plan 57 year-old female with Sepsis Currently on IV Vancomycin, Atreonam, Metronidazole and Micafungin. Management per infectious disease specialist Although repeat blood culture negative to date, blood culture 05/01/17 pending secondary to fever Neutropenic fever Currently on IV Vancomycin, Atreonam, Metronidazole and Micafungin. Management per infectious disease specialist Acute myeloid leukemia Currently on Dacogen and Rydapt Management per oncology Pancytopenia On Neupogen. Management per oncology, continue to monitor WBC Hypertension Continue antihypertensive medications. Hyperglycemia 2/2 steroid induced - patient is on prednisone. Right artery duct blockage Appreciate input from OMS will sign off Problem Qualifiers (1) Acute myeloid leukemia: Qualified Codes: C92.02 - Acute myeloblastic leukemia, in relapse (2) Hypertension: Qualified Codes: I10 - Essential (primary) hypertension Barrera Wren MD May 01, 2017 14:57
[2017-05-01] MEDS: guaiFENesin/DEXTROMETHORPHAN 200 MG/20 MG/10 ML CUP PO PRN (21:05)
[2017-05-01] MEDS: diphenhydrAMINE HCL 25 MG CAP PO PRN (23:41)
[2017-05-02] VITALS (12 sets, daily range): BP systolic 98–130; BP diastolic 18–92; PULSE 69–92; RESP 16–18; TEMP 98–100.4; O2SAT 93–96
[2017-05-02] MEDS: metroNIDAZOLE 500 MG TAB PO SCH ×3 (04:33→20:29)
[2017-05-02] MEDS ORDERED: PHARMACY ORDERED LAB ONE (07:45)
[2017-05-02] MEDS: VANCOMYCIN INJ 1,250 MG in SODIUM CHLOR 0.9% 250 ML INJ 250 ML IV SCH ×2 (08:50→20:29)
[2017-05-02] MEDS: predniSONE 5 MG TAB PO SCH ×2 (08:50→20:29)
[2017-05-02] MEDS: HYDROCHLOROTHIAZIDE 25 MG TAB PO SCH (08:50)
[2017-05-02] MEDS: LOSARTAN 50 MG TAB PO SCH (08:50)
[2017-05-02] MEDS: CARVEDILOL 3.125 MG TAB PO SCH (08:50)
[2017-05-02] MEDS: amLODIPine BESYLATE 5 MG TAB PO SCH (08:50)
[2017-05-02] MEDS: AZTREONAM INJ 2,000 MG in SODIUM CHLORIDE 0.9% INJ 100 ML IV SCH ×2 (08:51→17:26)
[2017-05-02] MEDS: LACTOBACILLUS ACIDOPHILUS TAB PO SCH ×2 (09:04→20:29)
--- NOTE | 2017-05-02 10:27 | PD.ONC.PN ---
Subjective Subjective Remarks Tmax 101.7 overnight. Continues to have persistent cough. Resting in bed in nad. Pain in right jaw improved. Objective Data Date Time Temp Pulse Resp B/P (MAP) Pulse Ox O2 Delivery O2 Flow Rate FiO2 05/02/17 06:00 88 05/02/17 05:00 76 05/02/17 04:00 98.0 83 18 128/92 (104) 93 05/02/17 04:00 69 05/02/17 03:00 76 05/02/17 02:00 78 05/02/17 01:00 88 05/02/17 00:00 86 05/02/17 00:00 98.5 85 18 117/18 (51) 95 05/01/17 23:00 86 05/01/17 22:00 92 05/01/17 21:00 102 05/01/17 20:00 95 05/01/17 20:00 101.7 105 20 138/89 (105) 95 05/01/17 14:31 97.3 85 16 133/85 (101) 96 05/01/17 11:00 98.3 74 16 136/72 (93) 98 05/02/17 05/02/17 05/02/17 07:00 15:00 23:00 Intake Total 480 ml Balance 480 ml Result Diagram: 05/01/17 0354 05/01/17 0354 Laboratory Results Laboratory Tests Test 05/02/17 04:30 Vancomycin Level Trough 13.1 MCG/ML Culture Results Microbiology Date/Time Source Procedure Growth Status 05/01/17 03:54 Blood Peripheral Aerobic Blood Culture Pending Received 05/01/17 03:54 Blood Peripheral Anaerobic Blood Culture Pending Received 04/30/17 23:39 Blood Peripheral Aerobic Blood Culture Pending Received 04/30/17 23:39 Blood Peripheral Anaerobic Blood Culture Pending Received Administered Medications Medications (Trade) Dose Ordered Sig/Zeynep Route PRN Reason Start Time Stop Time Status Last Admin Dose Admin Al Hydrox/Mg Hydrox/Simethicone (Mag-Al Plus Susp Liq) 30 ml Q4H PRN PO INDIGESTION 04/28/17 15:00 04/30/17 08:38 Acetaminophen (Tylenol) 650 mg Q4H PRN PO TEMP> 100.5F 04/28/17 15:00 05/01/17 21:03 Ondansetron HCl (Zofran Inj) 4 mg Q6H PRN IV PUSH nausea 04/28/17 15:00 04/29/17 18:55 Aztreonam 2000 mg/ Sodium Chloride 100 ml @ 200 mls/hr Q8H IV 04/28/17 17:00 05/02/17 08:51 Metronidazole (Flagyl) 500 mg Q8HR PO 04/28/17 17:00 05/02/17 04:33 Micafungin Sodium 150 mg/Sodium Chloride 100 ml @ 100 mls/hr Q24H IV 04/28/17 18:00 04/30/17 17:30 Sodium Chloride 1,000 ml @ 84 mls/hr [id number] IV 04/28/17 17:45 05/01/17 23:41 Amlodipine Besylate (Norvasc) 5 mg DAILY PO 04/30/17 09:00 05/02/17 08:50 Carvedilol (Coreg) 3.125 mg DAILY PO 04/30/17 09:00 05/02/17 08:50 Lactobacillus Acidophilus (Lactinex) 1 tab BID PO 04/29/17 21:00 05/02/17 09:04 Prednisone (Deltasone) 2.5 mg BID PO 04/29/17 21:00 05/02/17 08:50 Morphine Sulfate (Morphine Inj) 2 mg Q3H PRN IV PUSH pain>5 04/29/17 11:30 04/30/17 21:21 Losartan Potassium (Cozaar) 100 mg DAILY PO 04/30/17 09:00 05/02/17 08:50 Hydrochlorothiazide (Hydrodiuril) 25 mg DAILY PO 04/30/17 09:00 05/02/17 08:50 Guaifenesin/ Dextromethorphan (Robitussin Dm 200-20 Mg/10 ml Liq) 10 ml Q4H PRN PO COUGH 04/30/17 00:45 05/01/17 21:05 Vancomycin HCl 1250 mg/Sodium Chloride 262.5 ml @ 250 mls/hr Q12H IV 04/30/17 20:00 05/02/17 08:50 Diphenhydramine HCl (Benadryl) 25 mg Q6H PRN PO ALLERGIC REACTION 05/01/17 23:45 05/01/17 23:41 Objective Remarks GENERAL: Middle aged female lying in bed in nad SKIN: Warm and dry. HEAD: Normocephalic. mild swelling right jaw. EYES: No injection or drainage. NECK: Supple, trachea midline. CARDIOVASCULAR: Regular rate and rhythm. RESPIRATORY: Breath sounds equal bilaterally. No accessory muscle use. GASTROINTESTINAL: Abdomen soft, non-tender, nondistended. EXTREMITIES: No cyanosis NEUROLOGICAL: awake and alert, normal speech. moving all extremities. Assessment/Plan Problem List: (1) Neutropenic fever ICD Codes: D70.9 - Neutropenia, unspecified; R50.81 - Fever presenting with conditions classified elsewhere Status: Acute Plan: -- R jaw swelling, MRI reveal abscess/fluid collection. 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 Plan 1. continue abx per ID 2. monitor CBC 3. monitor blood cultures. 4. await CT thorax today. Attending Statement The exam, history, and the medical decision-making described in the above note were completed with the assistance of the mid-level provider. I reviewed and agree with the findings presented. I attest that I had a [id number] encounter with the patient on the same day, and personally performed and documented my assessment and findings in the medical record. ct of thorax- no evidence of pneumonia or infiltrate. fever persistent and exam is unrevealing. Unusual to see tumor related fever in AML with low volume of disease but this may be a possibilty. ? a trial of a NSAID for several day. Julianna Mcdaniel May 02, 2017 10:27 Jarocho Knight MD May 02, 2017 11:21
--- NOTE | 2017-05-02 10:59 | RADRPT ---
EXAM DATE/TIME: 05/02/2017 10:33 [facility] COMPARISON: No previous studies available for comparison. INDICATIONS : Shortness of breath. RADIATION DOSE: 9.59 CTDIvol (mGy) MEDICAL HISTORY : Cardiovascular disease. Hernia. Carcinoma, not otherwise specified. RA. Lupus. SURGICAL HISTORY : Cholecystectomy. ENCOUNTER: Initial ACUITY: 1 day PAIN SCALE: 0/10 LOCATION: chest TECHNIQUE: Volumetric scanning of the chest was performed. Using automated exposure control and adjustment of t he mA and/or kV according to patient size, radiation dose was kept as low as reasonably achievable to obtain optimal diagnostic quality images. DICOM format image data is available electronically for r eview and comparison. Follow-up recommendations for detected pulmonary nodules are based at a minimum on nodule size and pa tient risk factors according to Fleischner Society Guidelines. FINDINGS: LUNGS: There is no consolidation or pneumothorax. No concerning pulmonary nodule is visualized. PLEURAE: There is no pleural thickening or pleural effusion. MEDIASTINUM: The heart and great vessels demonstrate no acute abnormality. There is no mediastinal or hilar lymph adenopathy. Prominent azygos lobe. AXILLAE: Within normal limits. No lymphadenopathy. MUSCULOSKELETAL: Within normal limits for patient age. MISCELLANEOUS: The visualized upper abdominal organs demonstrate no acute abnormality. CONCLUSION: Negative for failure or parenchymal inflammatory process. Charles Castro MD FACR on May 02, 2017 at 10:57 Board Certified Radiologist. This report was verified electronically.
--- NOTE | 2017-05-02 12:13 | HHI.PR ---
Subjective Remarks Follow-up neutropenic fever/AML/right parotid duct blockage 05/01/17-patient seen and examined, Tmax 102 however currently afebrile. Patient denies any more right jaw/facial pain however not much of an appetite 05/02/17-patient seen and examined, Tmax of 101.7@8PM however currently afebrile.complains of dry cough Objective Vitals Vital Signs Date Time Temp Pulse Resp B/P (MAP) Pulse Ox O2 Delivery O2 Flow Rate FiO2 05/02/17 06:00 88 05/02/17 05:00 76 05/02/17 04:00 98.0 83 18 128/92 (104) 93 05/02/17 04:00 69 05/02/17 03:00 76 05/02/17 02:00 78 05/02/17 01:00 88 05/02/17 00:00 86 05/02/17 00:00 98.5 85 18 117/18 (51) 95 05/01/17 23:00 86 05/01/17 22:00 92 05/01/17 21:00 102 05/01/17 20:00 95 05/01/17 20:00 101.7 105 20 138/89 (105) 95 05/01/17 14:31 97.3 85 16 133/85 (101) 96 I/O 05/01/17 05/01/17 05/01/17 05/02/17 05/02/17 05/02/17 07:00 15:00 23:00 07:00 15:00 23:00 Intake Total 502.5 ml 540 ml 480 ml Output Total 900 ml Balance -397.5 ml 540 ml 480 ml Intake Oral 240 ml 540 ml 480 ml IV Total 262.5 ml Output Urine Total 900 ml # Voids 6 5 Result Diagram: 05/01/17 0354 05/01/17 0354 Imaging Last Impressions Chest CT 05/01/17 0000 Signed Impressions: Service Date/Time: Tuesday, May 02, 2017 10:33 - CONCLUSION: Negative for failure or parenchymal inflammatory process. Charles Castro MD FACR Chest X-Ray 04/30/17 0000 Signed Impressions: Service Date/Time: Sunday, April 30, 2017 08:41 - CONCLUSION: 1. No acute abnormality or significant interval change. Jim Pink MD Neck CT 04/29/17 0000 Signed Impressions: Service Date/Time: April 10:31 - CONCLUSION: 1. Solitary mildly enlarged right submandibular lymph node. Mild inflammatory change seen directly adjacent to the body of the mandible. This would suggest an infectious or inflammatory process with reactive adenopathy. No abscess or CT evidence to suggest osteomyelitis. No mass. Troy Pacheco Jr., MD Head Magnetic Resonance Angiography 04/29/17 0000 Signed Impressions: Service Date/Time: April 12:31 - CONCLUSION: Normal examination for a patient of this age. Jacinto Tello MD Face MRI 04/28/17 0000 Signed Impressions: Service Date/Time: Friday, April 28, 2017 21:04 - CONCLUSION: Evidence of right perimandibular cellulitis and abscess with enhancement both medial and lateral to the body and ramus of the mandible. Focal 1.4 cm fluid collection inferior to the posterior body of the mandible. No abnormal enhancement with the marrow of the mandible. Troy Clarke MD Objective Remarks GENERAL: NAD SKIN: Warm and dry. HEAD: Normocephalic. EYES: No scleral icterus. No injection or drainage. NECK: Supple, trachea midline. No JVD or lymphadenopathy. CARDIOVASCULAR: Regular rate and rhythm without murmurs, gallops, or rubs. RESPIRATORY: Breath sounds equal bilaterally. No accessory muscle use. GASTROINTESTINAL: Abdomen soft, non-tender, nondistended. MUSCULOSKELETAL: No cyanosis, or edema. BACK: Nontender without obvious deformity. No CVA tenderness. A/P Problem List: (1) Sepsis ICD Code: A41.9 - Sepsis, unspecified organism (2) Neutropenic fever ICD Code: D70.9 - Neutropenia, unspecified; R50.81 - Fever presenting with conditions classified elsewhere Status: Acute (3) Acute myeloid leukemia ICD Code: C92.00 - Acute myeloblastic leukemia, not having achieved remission Status: Acute (4) Pancytopenia ICD Code: D61.818 - Other pancytopenia Status: Acute (5) Hypertension ICD Code: I10 - Essential (primary) hypertension Status: Chronic (6) Hyperglycemia ICD Code: R73.9 - Hyperglycemia, unspecified Assessment and Plan 57 year-old female with Sepsis Currently on IV Vancomycin, Atreonam, Metronidazole and Micafungin. Management per infectious disease specialist Repeat blood culture negative to date Neutropenic fever Currently on IV Vancomycin, Atreonam, Metronidazole and Micafungin. Management per infectious disease specialist Per ID, if patient remains afebrile and repeat blood culture negative can transition to PO Augmentin 825mg bid x 7 days and Diflucan 100 mg PO daily X 7 DAYS. Acute myeloid leukemia Currently on Dacogen and Rydapt Management per oncology Pancytopenia On Neupogen. Management per oncology, continue to monitor WBC Hypertension Continue antihypertensive medications. Hyperglycemia 2/2 steroid induced - patient is on prednisone. Right artery duct blockage Appreciate input from OMS will sign off Problem Qualifiers (1) Acute myeloid leukemia: Qualified Codes: C92.02 - Acute myeloblastic leukemia, in relapse (2) Hypertension: Qualified Codes: I10 - Essential (primary) hypertension Barrera Wren MD May 02, 2017 12:13
[2017-05-02 12:30] LABS: HEMATOCRIT 28.7 % (35.0-46.0); HEMOGLOBIN 9.4 GM/DL (11.6-15.3); MEAN CELL VOLUME 89.5 FL (80.0-100.0); MEAN CORPUSCULAR HEMOGLOBIN 29.3 PG (27.0-34.0); MEAN CORPUSCULAR HGB CONC 32.8 % (32.0-36.0); MEAN PLATELET VOLUME 9.7 FL (7.0-11.0); PLATELET COUNT 52 TH/MM3 (150-450); RED CELL DISTRIBUTION WIDTH 20.6 % (11.6-17.2)
[2017-05-02 12:41] LABS: BICARBONATE 27.2 MEQ/L (21.0-32.0); BLOOD UREA NITROGEN 7 MG/DL (7-18); CALCIUM 8.7 MG/DL (8.5-10.1); CHLORIDE 102 MEQ/L (98-107); CREATININE 0.63 MG/DL (0.50-1.00); GLOMERULAR FILTRATION RATE 97 ML/MIN (>89); GLUCOSE,RANDOM 122 MG/DL (74-106); SODIUM (NA) 138 MEQ/L (136-145)
[2017-05-02 13:01] LABS: BANDS 6 % (0-6); BASOPHILS 2 % (0-2); BLASTS 16 % (0-0); CORRECTED NUCLEATED RBC 9 /100 WBC (0-0); LYMPHOCYTES 16 % (9-44); METAMYELOCYTES 1 % (0-1); MONOCYTES 7 % (0-8); MYELOCYTES 1 % (0-0); NEUTROPHIL # MANUAL DIFF 1.2 TH/MM3 (1.8-7.7); NUCLEATED RED BLOOD CELL 9 (0-0); POLYS (SEG NEUTROPHILS) 51 % (16-70)
[2017-05-02 13:02] LABS: TOXIC GRANULATION 1+ (NORMAL); TOXIC VACUOLATION PRESENT (NONE SEEN)
[2017-05-02] MEDS: SODIUM CHLOR 0.9% 1000 ML INJ 1,000 ML IV SCH (17:05)
[2017-05-02] MEDS: MICAFUNGIN INJ 150 MG in SODIUM CHLORIDE 0.9% INJ 100 ML IV SCH (17:31)
[2017-05-02] MEDS: ACETAMINOPHEN 325 MG TAB PO PRN (20:45)
[2017-05-02] MEDS: diphenhydrAMINE HCL 25 MG CAP PO PRN (20:45)
[2017-05-03] MEDS: AZTREONAM INJ 2,000 MG in SODIUM CHLORIDE 0.9% INJ 100 ML IV SCH ×3 (01:08→17:11)
[2017-05-03 01:09] VITALS: TEMP 98.7
[2017-05-03] MEDS: guaiFENesin/DEXTROMETHORPHAN 200 MG/20 MG/10 ML CUP PO PRN ×3 (03:56→21:17)
[2017-05-03] MEDS: metroNIDAZOLE 500 MG TAB PO SCH ×3 (04:03→22:26)
[2017-05-03] MEDS: SODIUM CHLOR 0.9% 1000 ML INJ 1,000 ML IV SCH ×2 (04:04→16:55)
[2017-05-03 04:07] VITALS: BP 132/85; PULSE 84; RESP 18; TEMP 98.8; O2SAT 97
[2017-05-03 05:12] LABS: HEMATOCRIT 27.9 % (35.0-46.0); MEAN CELL VOLUME 89.4 FL (80.0-100.0); MEAN CORPUSCULAR HEMOGLOBIN 28.8 PG (27.0-34.0); MEAN CORPUSCULAR HGB CONC 32.3 % (32.0-36.0); MEAN PLATELET VOLUME 9.7 FL (7.0-11.0); PLATELET COUNT 53 TH/MM3 (150-450); RED BLOOD COUNT 3.12 MIL/MM3 (4.00-5.30); RED CELL DISTRIBUTION WIDTH 20.3 % (11.6-17.2); WHITE BLOOD COUNT 1.5 TH/MM3 (4.0-11.0)
[2017-05-03 05:42] LABS: BICARBONATE 29.9 MEQ/L (21.0-32.0); CREATININE 0.59 MG/DL (0.50-1.00)
[2017-05-03 07:25] LABS: BANDS 3 % (0-6); BASOPHILS 1 % (0-2); BLASTS 10 % (0-0); CORRECTED NUCLEATED RBC 9 /100 WBC (0-0); LYMPHOCYTES 39 % (9-44); METAMYELOCYTES 3 % (0-1); MONOCYTES 9 % (0-8); MYELOCYTES 4 % (0-0); NEUTROPHIL # MANUAL DIFF 0.6 TH/MM3 (1.8-7.7); NUCLEATED RED BLOOD CELL 9 (0-0); POLYS (SEG NEUTROPHILS) 28 % (16-70)
[2017-05-03 08:05] VITALS: BP 126/75; PULSE 86; RESP 18; TEMP 99.9; O2SAT 94
[2017-05-03] MEDS: VANCOMYCIN INJ 1,250 MG in SODIUM CHLOR 0.9% 250 ML INJ 250 ML IV SCH ×2 (08:08→20:07)
[2017-05-03] MEDS: diphenhydrAMINE HCL 25 MG CAP PO PRN ×2 (08:22→22:26)
[2017-05-03] MEDS: LACTOBACILLUS ACIDOPHILUS TAB PO SCH ×2 (09:26→20:07)
[2017-05-03] MEDS: amLODIPine BESYLATE 5 MG TAB PO SCH (09:26)
[2017-05-03] MEDS: CARVEDILOL 3.125 MG TAB PO SCH (09:26)
[2017-05-03] MEDS: predniSONE 5 MG TAB PO SCH ×2 (09:27→20:07)
[2017-05-03] MEDS: LOSARTAN 50 MG TAB PO SCH (09:27)
[2017-05-03] MEDS: HYDROCHLOROTHIAZIDE 25 MG TAB PO SCH (09:27)
[2017-05-03 11:30] VITALS: BP 129/86; PULSE 91; RESP 18; TEMP 99.2; O2SAT 92
--- NOTE | 2017-05-03 11:31 | PD.ONC.PN ---
Subjective Subjective Remarks Patient seen and examined, vital signs, labs and medications reviewed. Subjectively; she tells me she continues to have fevers albeit lower grade, she currently feels as if a fever is breaking. She denies other localizing symptoms other than a dry cough. Objective Data Date Time Temp Pulse Resp B/P (MAP) Pulse Ox O2 Delivery O2 Flow Rate FiO2 05/03/17 08:05 99.9 86 18 126/75 (92) 94 05/03/17 04:07 98.8 84 18 132/85 (101) 97 05/03/17 01:09 98.7 05/02/17 20:22 100.4 88 16 129/91 (104) 94 05/02/17 15:16 99.5 84 16 98/58 (71) 93 05/02/17 11:38 100.3 92 16 122/78 (93) 96 05/03/17 05/03/17 05/03/17 07:00 15:00 23:00 Intake Total 720 ml Balance 720 ml Result Diagram: 05/03/17 0419 05/03/17 0419 Laboratory Results Laboratory Tests Test 05/02/17 12:15 05/03/17 04:19 White Blood Count 2.0 TH/MM3 1.5 TH/MM3 Red Blood Count 3.20 MIL/MM3 3.12 MIL/MM3 Hemoglobin 9.4 GM/DL 9.0 GM/DL Hematocrit 28.7 % 27.9 % Mean Corpuscular Volume 89.5 FL 89.4 FL Mean Corpuscular Hemoglobin 29.3 PG 28.8 PG Mean Corpuscular Hemoglobin Concent 32.8 % 32.3 % Red Cell Distribution Width 20.6 % 20.3 % Platelet Count 52 TH/MM3 53 TH/MM3 Mean Platelet Volume 9.7 FL 9.7 FL CBC Comment AUTO DIFF AUTO DIFF Differential Total Cells Counted 100 100 Neutrophils % (Manual) 51 % 28 % Band Neutrophils % 6 % 3 % Lymphocytes % 16 % 39 % Monocytes % 7 % 9 % Basophils % 2 % 1 % Neutrophils # (Manual) 1.2 TH/MM3 0.6 TH/MM3 Metamyelocytes 1 % 3 % Myelocytes 1 % 4 % Nucleated Red Blood Cells 9 /100 WBC 9 /100 WBC Differential Comment FINAL DIFF MANUAL FINAL DIFF MANUAL Blastocytes 16 % 10 % Toxic Granulation 1+ Toxic Vacuolation PRESENT Platelet Estimate LOW LOW Platelet Morphology Comment NORMAL NORMAL Basophilic Stippling MOD Blood Urea Nitrogen 7 MG/DL 9 MG/DL Creatinine 0.63 MG/DL 0.59 MG/DL Random Glucose 122 MG/DL 145 MG/DL Calcium Level 8.7 MG/DL 9.0 MG/DL Sodium Level 138 MEQ/L 141 MEQ/L Potassium Level 3.4 MEQ/L 3.0 MEQ/L Chloride Level 102 MEQ/L 103 MEQ/L Carbon Dioxide Level 27.2 MEQ/L 29.9 MEQ/L Anion Gap 9 MEQ/L 8 MEQ/L Estimat Glomerular Filtration Rate 97 ML/MIN 104 ML/MIN Eosinophils % 3 % Culture Results Microbiology Date/Time Source Procedure Growth Status 05/01/17 03:54 Blood Peripheral Aerobic Blood Culture - Preliminary NO GROWTH IN 2 DAYS Resulted 05/01/17 03:54 Blood Peripheral Anaerobic Blood Culture - Preliminary NO GROWTH IN 2 DAYS Resulted 04/30/17 23:39 Blood Peripheral Aerobic Blood Culture - Preliminary NO GROWTH IN 2 DAYS Resulted 04/30/17 23:39 Blood Peripheral Anaerobic Blood Culture - Preliminary NO GROWTH IN 2 DAYS Resulted Administered Medications Medications (Trade) Dose Ordered Sig/Zeynep Route PRN Reason Start Time Stop Time Status Last Admin Dose Admin Al Hydrox/Mg Hydrox/Simethicone (Mag-Al Plus Susp Liq) 30 ml Q4H PRN PO INDIGESTION 04/28/17 15:00 04/30/17 08:38 Acetaminophen (Tylenol) 650 mg Q4H PRN PO TEMP> 100.5F 04/28/17 15:00 05/02/17 20:45 Ondansetron HCl (Zofran Inj) 4 mg Q6H PRN IV PUSH nausea 04/28/17 15:00 04/29/17 18:55 Aztreonam 2000 mg/ Sodium Chloride 100 ml @ 200 mls/hr Q8H IV 04/28/17 17:00 05/03/17 09:27 Metronidazole (Flagyl) 500 mg Q8HR PO 04/28/17 17:00 05/03/17 04:03 Micafungin Sodium 150 mg/Sodium Chloride 100 ml @ 100 mls/hr Q24H IV 04/28/17 18:00 05/02/17 17:31 Sodium Chloride 1,000 ml @ 84 mls/hr [id number] IV 04/28/17 17:45 05/02/17 17:05 Amlodipine Besylate (Norvasc) 5 mg DAILY PO 04/30/17 09:00 05/03/17 09:26 Carvedilol (Coreg) 3.125 mg DAILY PO 04/30/17 09:00 05/03/17 09:26 Lactobacillus Acidophilus (Lactinex) 1 tab BID PO 04/29/17 21:00 05/03/17 09:26 Prednisone (Deltasone) 2.5 mg BID PO 04/29/17 21:00 05/03/17 09:27 Morphine Sulfate (Morphine Inj) 2 mg Q3H PRN IV PUSH pain>5 04/29/17 11:30 04/30/17 21:21 Losartan Potassium (Cozaar) 100 mg DAILY PO 04/30/17 09:00 05/03/17 09:27 Hydrochlorothiazide (Hydrodiuril) 25 mg DAILY PO 04/30/17 09:00 05/03/17 09:27 Guaifenesin/ Dextromethorphan (Robitussin Dm 200-20 Mg/10 ml Liq) 10 ml Q4H PRN PO COUGH 04/30/17 00:45 05/03/17 10:26 Vancomycin HCl 1250 mg/Sodium Chloride 262.5 ml @ 250 mls/hr Q12H IV 04/30/17 20:00 05/03/17 08:08 Diphenhydramine HCl (Benadryl) 25 mg Q6H PRN PO ALLERGIC REACTION 05/01/17 23:45 05/03/17 08:22 Objective Remarks GENERAL: Middle aged female lying in bed in [facility]. SKIN: Warm and dry. HEAD: Normocephalic. mild swelling right jaw. EYES: No injection or drainage. NECK: Supple, trachea midline. CARDIOVASCULAR: Regular rate and rhythm. RESPIRATORY: Breath sounds equal bilaterally. No accessory muscle use. GASTROINTESTINAL: Abdomen soft, non-tender, nondistended. EXTREMITIES: No cyanosis NEUROLOGICAL: awake and alert, normal speech. moving all extremities. Assessment/Plan Problem List: (1) Neutropenic fever ICD Codes: D70.9 - Neutropenia, unspecified; R50.81 - Fever presenting with conditions classified elsewhere Status: Acute Plan: -- R jaw swelling, MRI reveal abscess/fluid collection. 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 She has been on systemic therapy with Midostaurin and Dacogen. Currently in the hospital with fevers. Blood cultures drawn on 04/28/2017, and 05/01/2017 are all negative for growth. She is on empiric antibiotic therapy with vancomycin, micafungin, aztreonam. Tumor fever was suspected i.e. related to AML and she was initiated on low-dose prednisone 2.5 mg twice daily on 04/29/2017. She is no longer having high spiking fevers which she was 3 days ago, MAXIMUM TEMPERATURE with a past 24 hours was 100.4F. Continue ongoing care with empiric antibiotic therapy. Continue best supportive care. Oncology will continue following. Appreciate infectious diseases input. Gordon Edmond MD May 03, 2017 11:31
--- NOTE | 2017-05-03 11:37 | HHI.PR ---
Subjective Remarks Follow-up neutropenic fever/AML/right parotid duct blockage 05/01/17-patient seen and examined, Tmax 102 however currently afebrile. Patient denies any more right jaw/facial pain however not much of an appetite 05/02/17-patient seen and examined, Tmax of 101.7@8PM however currently afebrile.complains of dry cough 05/03/17-patient seen and examined, continue to spike fevers. Complains of dry cough Objective Vitals Vital Signs Date Time Temp Pulse Resp B/P (MAP) Pulse Ox O2 Delivery O2 Flow Rate FiO2 05/03/17 11:30 99.2 91 18 129/86 (100) 92 05/03/17 08:05 99.9 86 18 126/75 (92) 94 05/03/17 04:07 98.8 84 18 132/85 (101) 97 05/03/17 01:09 98.7 05/02/17 20:22 100.4 88 16 129/91 (104) 94 05/02/17 15:16 99.5 84 16 98/58 (71) 93 05/02/17 11:38 100.3 92 16 122/78 (93) 96 I/O 05/02/17 05/02/17 05/02/17 05/03/17 05/03/17 05/03/17 07:00 15:00 23:00 07:00 15:00 23:00 Intake Total 480 ml 840 ml 720 ml Balance 480 ml 840 ml 720 ml Intake Oral 480 ml 840 ml 720 ml # Voids 5 4 3 Result Diagram: 05/03/17 0419 05/03/17 0419 Imaging Last Impressions Chest CT 05/01/17 0000 Signed Impressions: Service Date/Time: Tuesday, May 02, 2017 10:33 - CONCLUSION: Negative for failure or parenchymal inflammatory process. Charles Castro MD FACR Chest X-Ray 04/30/17 0000 Signed Impressions: Service Date/Time: Sunday, April 30, 2017 08:41 - CONCLUSION: 1. No acute abnormality or significant interval change. Jim Pink MD Neck CT 04/29/17 0000 Signed Impressions: Service Date/Time: April 10:31 - CONCLUSION: 1. Solitary mildly enlarged right submandibular lymph node. Mild inflammatory change seen directly adjacent to the body of the mandible. This would suggest an infectious or inflammatory process with reactive adenopathy. No abscess or CT evidence to suggest osteomyelitis. No mass. Troy Pacheco Jr., MD Head Magnetic Resonance Angiography 04/29/17 0000 Signed Impressions: Service Date/Time: April 12:31 - CONCLUSION: Normal examination for a patient of this age. Jacinto Tello MD Face MRI 04/28/17 0000 Signed Impressions: Service Date/Time: Friday, April 28, 2017 21:04 - CONCLUSION: Evidence of right perimandibular cellulitis and abscess with enhancement both medial and lateral to the body and ramus of the mandible. Focal 1.4 cm fluid collection inferior to the posterior body of the mandible. No abnormal enhancement with the marrow of the mandible. Troy Clarke MD Objective Remarks GENERAL: NAD SKIN: Warm and dry. HEAD: Normocephalic. EYES: No scleral icterus. No injection or drainage. NECK: Supple, trachea midline. No JVD or lymphadenopathy. CARDIOVASCULAR: Regular rate and rhythm without murmurs, gallops, or rubs. RESPIRATORY: Breath sounds equal bilaterally. No accessory muscle use. GASTROINTESTINAL: Abdomen soft, non-tender, nondistended. MUSCULOSKELETAL: No cyanosis, or edema. BACK: Nontender without obvious deformity. No CVA tenderness. A/P Problem List: (1) Sepsis ICD Code: A41.9 - Sepsis, unspecified organism (2) Neutropenic fever ICD Code: D70.9 - Neutropenia, unspecified; R50.81 - Fever presenting with conditions classified elsewhere Status: Acute (3) Acute myeloid leukemia ICD Code: C92.00 - Acute myeloblastic leukemia, not having achieved remission Status: Acute (4) Pancytopenia ICD Code: D61.818 - Other pancytopenia Status: Acute (5) Hypertension ICD Code: I10 - Essential (primary) hypertension Status: Chronic (6) Hyperglycemia ICD Code: R73.9 - Hyperglycemia, unspecified Assessment and Plan 57 year-old female with Sepsis Currently on IV Vancomycin, Atreonam, Metronidazole and Micafungin. Management per infectious disease specialist Repeat blood culture negative to date Neutropenic fever Currently on IV Vancomycin, Atreonam, Metronidazole and Micafungin. Management per infectious disease specialist Per ID, if patient remains afebrile and repeat blood culture negative can transition to PO Augmentin 825mg bid x 7 days and Diflucan 100 mg PO daily X 7 DAYS. Acute myeloid leukemia Currently on Dacogen and Rydapt Management per oncology Pancytopenia On Neupogen. Management per oncology, continue to monitor WBC Hypertension Continue antihypertensive medications. Hyperglycemia 2/2 steroid induced - patient is on prednisone. Right artery duct blockage Appreciate input from OMS who signed off Problem Qualifiers (1) Acute myeloid leukemia: Qualified Codes: C92.02 - Acute myeloblastic leukemia, in relapse (2) Hypertension: Qualified Codes: I10 - Essential (primary) hypertension Barrera Wren MD May 03, 2017 11:37
[2017-05-03] MEDS ORDERED: POTASSIUM CHLORIDE 10 MEQ CAP PO ONE (11:45)
[2017-05-03 14:06] LABS: HEMOGLOBIN A1C 5.2 % (4.3-6.0)
--- NOTE | 2017-05-03 15:37 | HHI.IDPN ---
Note Infectious Disease Note Patient has less pain in the r. jaw. Low grade fever. Non productive cough. No HOOPER. No SOB. PAST MEDICAL HISTORY 1. Acute myelogenous leukemia. 2. Rheumatoid arthritis. 3. Lupus. 4. Chronic obstructive pulmonary disease. 5. Cholecystectomy. 6. Tonsillectomy. 7. Cervical cancer. 8. Port placement. 9. History of C-difficile in November 2016. ALLERGIES CEFEPIME, SULFA, LATEX. OBJECTIVE: Vital Signs Date Time Temp Pulse Resp B/P (MAP) Pulse Ox O2 Delivery O2 Flow Rate FiO2 05/03/17 11:30 99.2 91 18 129/86 (100) 92 05/03/17 08:05 99.9 86 18 126/75 (92) 94 05/03/17 04:07 98.8 84 18 132/85 (101) 97 05/03/17 01:09 98.7 05/02/17 20:22 100.4 88 16 129/91 (104) 94 Laboratory Tests Test 05/02/17 12:15 05/03/17 04:19 White Blood Count 2.0 TH/MM3 1.5 TH/MM3 Red Blood Count 3.20 MIL/MM3 3.12 MIL/MM3 Hemoglobin 9.4 GM/DL 9.0 GM/DL Hematocrit 28.7 % 27.9 % Mean Corpuscular Volume 89.5 FL 89.4 FL Mean Corpuscular Hemoglobin 29.3 PG 28.8 PG Mean Corpuscular Hemoglobin Concent 32.8 % 32.3 % Red Cell Distribution Width 20.6 % 20.3 % Platelet Count 52 TH/MM3 53 TH/MM3 Mean Platelet Volume 9.7 FL 9.7 FL CBC Comment AUTO DIFF AUTO DIFF Differential Total Cells Counted 100 100 Neutrophils % (Manual) 51 % 28 % Band Neutrophils % 6 % 3 % Lymphocytes % 16 % 39 % Monocytes % 7 % 9 % Basophils % 2 % 1 % Neutrophils # (Manual) 1.2 TH/MM3 0.6 TH/MM3 Metamyelocytes 1 % 3 % Myelocytes 1 % 4 % Nucleated Red Blood Cells 9 /100 WBC 9 /100 WBC Differential Comment FINAL DIFF MANUAL FINAL DIFF MANUAL Blastocytes 16 % 10 % Toxic Granulation 1+ Toxic Vacuolation PRESENT Platelet Estimate LOW LOW Platelet Morphology Comment NORMAL NORMAL Basophilic Stippling MOD Eosinophils % 3 % Laboratory Tests Test 05/02/17 12:15 05/03/17 04:19 Blood Urea Nitrogen 7 MG/DL 9 MG/DL Creatinine 0.63 MG/DL 0.59 MG/DL Random Glucose 122 MG/DL 145 MG/DL Calcium Level 8.7 MG/DL 9.0 MG/DL Sodium Level 138 MEQ/L 141 MEQ/L Potassium Level 3.4 MEQ/L 3.0 MEQ/L Chloride Level 102 MEQ/L 103 MEQ/L Carbon Dioxide Level 27.2 MEQ/L 29.9 MEQ/L Anion Gap 9 MEQ/L 8 MEQ/L Estimat Glomerular Filtration Rate 97 ML/MIN 104 ML/MIN Hemoglobin A1c 5.2 % Microbiology Date/Time Source Procedure Growth Status 05/01/17 03:54 Blood Peripheral Aerobic Blood Culture - Preliminary NO GROWTH IN 2 DAYS Resulted 05/01/17 03:54 Blood Peripheral Anaerobic Blood Culture - Preliminary NO GROWTH IN 2 DAYS Resulted 04/30/17 23:39 Blood Peripheral Aerobic Blood Culture - Preliminary NO GROWTH IN 2 DAYS Resulted 04/30/17 23:39 Blood Peripheral Anaerobic Blood Culture - Preliminary NO GROWTH IN 2 DAYS Resulted IMAGING: Chest CT 05/01/17 0000 Signed Impressions: Service Date/Time: Tuesday, May 02, 2017 10:33 - CONCLUSION: Negative for failure or parenchymal inflammatory process. Charles Castro MD FACR Neck CT 04/29/17 0000 Signed Impressions: Service Date/Time: April 10:31 - CONCLUSION: 1. Solitary mildly enlarged right submandibular lymph node. Mild inflammatory change seen directly adjacent to the body of the mandible. This would suggest an infectious or inflammatory process with reactive adenopathy. No abscess or CT evidence to suggest osteomyelitis. No mass. Troy Pacheco Jr., MD Face MRI 04/28/17 0000 Signed Impressions: Service Date/Time: Friday, April 28, 2017 21:04 - CONCLUSION: Evidence of right perimandibular cellulitis and abscess with enhancement both medial and lateral to the body and ramus of the mandible. Focal 1.4 cm fluid collection inferior to the posterior body of the mandible. No abnormal enhancement with the marrow of the mandible. Troy Clarke MD PHYSICAL EXAMINATION GENERAL: No acute distress. HEENT: Right side of the face swelling has decreased and now mildly tender. Extraocular movements grossly intact. Pupils reactive to light. No icterus. Oropharynx moist mucosa without lesion. NECK: Supple without adenopathy. LUNGS: Clear breath sounds. HEART: Regular S1-S2 without murmurs, rubs, or gallops. ABDOMEN: Bowel sounds present. Soft. Obese. Nontender. EXTREMITIES: No clubbing, cyanosis or edema. SKIN: No rash. NEUROLOGIC: No gross focal findings. PSYCHIATRIC: Calm and cooperative. IMPRESSION 1. Neutropenic fever. 2. Acute myeloblastic leukemia. 3. Perimandibular cellulitis. ? sialoadenitis. RECOMMENDATIONS 1. Continue vancomycin. 2. Cont aztreonam. 3. Cont metronidazole. 4. Cont micafungin. 5. Monitor temperature. Jim Grande MD May 03, 2017 15:37
[2017-05-03 16:02] VITALS: BP 126/82; PULSE 89; RESP 18; TEMP 98.5; O2SAT 92
[2017-05-03] MEDS: MICAFUNGIN INJ 150 MG in SODIUM CHLORIDE 0.9% INJ 100 ML IV SCH (18:16)
[2017-05-03] MEDS ORDERED: PHARMACY ORDERED LAB ONE (19:45)
[2017-05-03 20:04] VITALS: BP 128/89; PULSE 94; RESP 18; TEMP 99.1; O2SAT 95
[2017-05-04 01:21] VITALS: BP 114/73; PULSE 91; RESP 18; TEMP 99.5; O2SAT 96
[2017-05-04] MEDS: AZTREONAM INJ 2,000 MG in SODIUM CHLORIDE 0.9% INJ 100 ML IV SCH ×2 (01:24→12:31)
[2017-05-04] MEDS: ACETAMINOPHEN 325 MG TAB PO PRN (03:32)
[2017-05-04 05:42] VITALS: BP 126/72; PULSE 84; RESP 19; TEMP 98.2; O2SAT 93
[2017-05-04] MEDS: diphenhydrAMINE HCL 25 MG CAP PO PRN (05:46)
[2017-05-04] MEDS: SODIUM CHLOR 0.9% 1000 ML INJ 1,000 ML IV SCH (05:46)
[2017-05-04] MEDS: metroNIDAZOLE 500 MG TAB PO SCH ×2 (05:46→14:09)
[2017-05-04] MEDS ORDERED: VANCOMYCIN INJ 1,500 MG in SODIUM CHLORID 0.9% 500 ML INJ 500 ML IV SCH (08:00)
[2017-05-04 08:54] VITALS: BP 124/77; PULSE 77; RESP 18; TEMP 98.3; O2SAT 94
[2017-05-04] MEDS: LOSARTAN 50 MG TAB PO SCH (09:55)
[2017-05-04] MEDS: amLODIPine BESYLATE 5 MG TAB PO SCH (09:56)
[2017-05-04] MEDS: LACTOBACILLUS ACIDOPHILUS TAB PO SCH (09:56)
[2017-05-04] MEDS: HYDROCHLOROTHIAZIDE 25 MG TAB PO SCH (09:56)
[2017-05-04] MEDS: CARVEDILOL 3.125 MG TAB PO SCH (09:56)
[2017-05-04] MEDS: predniSONE 5 MG TAB PO SCH (09:57)
--- NOTE | 2017-05-04 10:01 | HHI.PR ---
Subjective Remarks Follow-up neutropenic fever/AML/right parotid duct blockage 05/01/17-patient seen and examined, Tmax 102 however currently afebrile. Patient denies any more right jaw/facial pain however not much of an appetite 05/02/17-patient seen and examined, Tmax of 101.7@8PM however currently afebrile.complains of dry cough 05/03/17-patient seen and examined, continue to spike fevers. Complains of dry cough 05/04/17-patient seen and examined, currently afebrile 24 hours. Reported improvement of for cough. No acute event overnight. Daughter by the bedside. Objective Vitals Vital Signs Date Time Temp Pulse Resp B/P (MAP) Pulse Ox O2 Delivery O2 Flow Rate FiO2 05/04/17 08:54 98.3 77 18 124/77 (93) 94 05/04/17 05:42 98.2 84 19 126/72 (90) 93 05/04/17 04:32 16 05/04/17 01:21 99.5 91 18 114/73 (87) 96 05/03/17 20:04 99.1 94 18 128/89 (102) 95 05/03/17 16:02 98.5 89 18 126/82 (97) 92 05/03/17 11:30 99.2 91 18 129/86 (100) 92 I/O 05/03/17 05/03/17 05/03/17 05/04/17 05/04/17 05/04/17 07:00 15:00 23:00 07:00 15:00 23:00 Intake Total 720 ml 362.5 ml 2800 ml 480 ml Balance 720 ml 362.5 ml 2800 ml 480 ml Intake Oral 720 ml 1800 ml 480 ml IV Total 362.5 ml 1000 ml # Voids 3 5 2 # Bowel Movements 1 Result Diagram: 05/03/17 0419 05/03/17418 Objective Remarks GENERAL: NAD SKIN: Warm and dry. HEAD: Normocephalic. EYES: No scleral icterus. No injection or drainage. NECK: Supple, trachea midline. No JVD or lymphadenopathy. CARDIOVASCULAR: Regular rate and rhythm without murmurs, gallops, or rubs. RESPIRATORY: Breath sounds equal bilaterally. No accessory muscle use. GASTROINTESTINAL: Abdomen soft, non-tender, nondistended. MUSCULOSKELETAL: No cyanosis, or edema. BACK: Nontender without obvious deformity. No CVA tenderness. A/P Problem List: (1) Sepsis ICD Code: A41.9 - Sepsis, unspecified organism (2) Neutropenic fever ICD Code: D70.9 - Neutropenia, unspecified; R50.81 - Fever presenting with conditions classified elsewhere Status: Acute (3) Acute myeloid leukemia ICD Code: C92.00 - Acute myeloblastic leukemia, not having achieved remission Status: Acute (4) Pancytopenia ICD Code: D61.818 - Other pancytopenia Status: Acute (5) Hypertension ICD Code: I10 - Essential (primary) hypertension Status: Chronic (6) Hyperglycemia ICD Code: R73.9 - Hyperglycemia, unspecified Assessment and Plan 57 year-old female with Sepsis Currently on IV Vancomycin, Atreonam, Metronidazole and Micafungin. Management per infectious disease specialist Repeat blood culture negative to date Neutropenic fever Currently on IV Vancomycin, Atreonam, Metronidazole and Micafungin. Management per infectious disease specialist Acute myeloid leukemia Currently on Dacogen and Rydapt Management per oncology Pancytopenia On Neupogen. Management per oncology, continue to monitor WBC Hypertension Continue antihypertensive medications. Hyperglycemia 2/2 steroid induced - patient is on prednisone. Right artery duct blockage Appreciate input from OMS who signed off Problem Qualifiers (1) Acute myeloid leukemia: Qualified Codes: C92.02 - Acute myeloblastic leukemia, in relapse (2) Hypertension: Qualified Codes: I10 - Essential (primary) hypertension Barrera Wren MD May 04, 2017 10:01
--- NOTE | 2017-05-04 10:03 | PD.ONC.PN ---
Subjective Subjective Remarks Afebrile overnight. Patient resting in bed in nad. Wants to go home. Feeling well. Objective Data Date Time Temp Pulse Resp B/P (MAP) Pulse Ox O2 Delivery O2 Flow Rate FiO2 05/04/17 08:54 98.3 77 18 124/77 (93) 94 05/04/17 05:42 98.2 84 19 126/72 (90) 93 05/04/17 04:32 16 05/04/17 01:21 99.5 91 18 114/73 (87) 96 05/03/17 20:04 99.1 94 18 128/89 (102) 95 05/03/17 16:02 98.5 89 18 126/82 (97) 92 05/03/17 11:30 99.2 91 18 129/86 (100) 92 05/04/17 05/04/17 05/04/17 07:00 15:00 23:00 Intake Total 480 ml Balance 480 ml Result Diagram: 05/03/17 0419 05/03/17 0419 Laboratory Results Laboratory Tests Test 05/03/17 19:52 Vancomycin Level Trough 9.6 MCG/ML Administered Medications Medications (Trade) Dose Ordered Sig/Zeynep Route PRN Reason Start Time Stop Time Status Last Admin Dose Admin Al Hydrox/Mg Hydrox/Simethicone (Mag-Al Plus Susp Liq) 30 ml Q4H PRN PO INDIGESTION 04/28/17 15:00 04/30/17 08:38 Acetaminophen (Tylenol) 650 mg Q4H PRN PO TEMP> 100.5F 04/28/17 15:00 05/04/17 03:32 Ondansetron HCl (Zofran Inj) 4 mg Q6H PRN IV PUSH nausea 04/28/17 15:00 04/29/17 18:55 Aztreonam 2000 mg/ Sodium Chloride 100 ml @ 200 mls/hr Q8H IV 04/28/17 17:00 05/04/17 01:24 Metronidazole (Flagyl) 500 mg Q8HR PO 04/28/17 17:00 05/04/17 05:46 Micafungin Sodium 150 mg/Sodium Chloride 100 ml @ 100 mls/hr Q24H IV 04/28/17 18:00 05/03/17 18:16 Sodium Chloride 1,000 ml @ 84 mls/hr [id number] IV 04/28/17 17:45 05/04/17 05:46 Amlodipine Besylate (Norvasc) 5 mg DAILY PO 04/30/17 09:00 05/03/17 09:26 Carvedilol (Coreg) 3.125 mg DAILY PO 04/30/17 09:00 05/03/17 09:26 Lactobacillus Acidophilus (Lactinex) 1 tab BID PO 04/29/17 21:00 05/03/17 20:07 Prednisone (Deltasone) 2.5 mg BID PO 04/29/17 21:00 05/03/17 20:07 Morphine Sulfate (Morphine Inj) 2 mg Q3H PRN IV PUSH pain>5 04/29/17 11:30 04/30/17 21:21 Losartan Potassium (Cozaar) 100 mg DAILY PO 04/30/17 09:00 05/03/17 09:27 Hydrochlorothiazide (Hydrodiuril) 25 mg DAILY PO 04/30/17 09:00 05/03/17 09:27 Guaifenesin/ Dextromethorphan (Robitussin Dm 200-20 Mg/10 ml Liq) 10 ml Q4H PRN PO COUGH 04/30/17 00:45 05/03/17 21:17 Diphenhydramine HCl (Benadryl) 25 mg Q6H PRN PO ALLERGIC REACTION 05/01/17 23:45 05/04/17 05:46 Objective Remarks GENERAL: Middle aged female sitting up in bed in [facility]. SKIN: Warm and dry. HEAD: Normocephalic. EYES: No injection or drainage. NECK: Supple, trachea midline. CARDIOVASCULAR: Regular rate and rhythm RESPIRATORY: Breath sounds equal bilaterally. No accessory muscle use. GASTROINTESTINAL: Abdomen soft, non-tender, nondistended. EXTREMITIES: No cyanosis NEUROLOGICAL: awake and alert, normal speech. moving all extremities. Assessment/Plan Problem List: (1) Neutropenic fever ICD Codes: D70.9 - Neutropenia, unspecified; R50.81 - Fever presenting with conditions classified elsewhere Status: Acute Plan: --on empiric antibiotic therapy with vancomycin, micafungin, aztreonam. --Tumor fever was suspected i.e. related to AML and she was initiated on low- dose prednisone 2.5 mg twice daily on 04/29/2017. --She is no longer having high spiking fevers which she was 3 days ago, MAXIMUM TEMPERATURE with a past 48 hours was 100.4F. 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 Plan 1. will ask ID to make home antibiotic recommendations. patient's blood cultures have remained negative and she has remained afebrile for 48 hours. 2. once discharged, will arrange follow up in clinic. Julianna Mcdaniel May 04, 2017 10:02
[2017-05-04 12:31] VITALS: BP 125/88; PULSE 87; RESP 18; TEMP 98.6; O2SAT 98
--- NOTE | 2017-05-04 13:04 | HHI.IDPN ---
Note Infectious Disease Note Patient has no pain in r. jaw. Afebrile. feels fine. Cough is less. No HOOPER, chills, SOB. PAST MEDICAL HISTORY 1. Acute myelogenous leukemia. 2. Rheumatoid arthritis. 3. Lupus. 4. Chronic obstructive pulmonary disease. 5. Cholecystectomy. 6. Tonsillectomy. 7. Cervical cancer. 8. Port placement. 9. History of C-difficile in November 2016. ALLERGIES CEFEPIME, SULFA, LATEX. OBJECTIVE: Vital Signs Date Time Temp Pulse Resp B/P (MAP) Pulse Ox O2 Delivery O2 Flow Rate FiO2 05/04/17 12:31 98.6 87 18 125/88 (100) 98 05/04/17 08:54 98.3 77 18 124/77 (93) 94 05/04/17 05:42 98.2 84 19 126/72 (90) 93 05/04/17 04:32 16 05/04/17 01:21 99.5 91 18 114/73 (87) 96 05/03/17 20:04 99.1 94 18 128/89 (102) 95 05/03/17 16:02 98.5 89 18 126/82 (97) 92 Laboratory Tests Test 05/03/17 04:19 White Blood Count 1.5 TH/MM3 Red Blood Count 3.12 MIL/MM3 Hemoglobin 9.0 GM/DL Hematocrit 27.9 % Mean Corpuscular Volume 89.4 FL Mean Corpuscular Hemoglobin 28.8 PG Mean Corpuscular Hemoglobin Concent 32.3 % Red Cell Distribution Width 20.3 % Platelet Count 53 TH/MM3 Mean Platelet Volume 9.7 FL CBC Comment AUTO DIFF Differential Total Cells Counted 100 Neutrophils % (Manual) 28 % Band Neutrophils % 3 % Lymphocytes % 39 % Monocytes % 9 % Eosinophils % 3 % Basophils % 1 % Neutrophils # (Manual) 0.6 TH/MM3 Metamyelocytes 3 % Myelocytes 4 % Nucleated Red Blood Cells 9 /100 WBC Differential Comment FINAL DIFF MANUAL Blastocytes 10 % Platelet Estimate LOW Platelet Morphology Comment NORMAL Laboratory Tests Test 05/03/17 04:19 Blood Urea Nitrogen 9 MG/DL Creatinine 0.59 MG/DL Random Glucose 145 MG/DL Calcium Level 9.0 MG/DL Sodium Level 141 MEQ/L Potassium Level 3.0 MEQ/L Chloride Level 103 MEQ/L Carbon Dioxide Level 29.9 MEQ/L Anion Gap 8 MEQ/L Estimat Glomerular Filtration Rate 104 ML/MIN IMAGING: Chest CT 05/01/17 0000 Signed Impressions: Service Date/Time: Tuesday, May 02, 2017 10:33 - CONCLUSION: Negative for failure or parenchymal inflammatory process. Charles Castro MD FACR Neck CT 04/29/17 0000 Signed Impressions: Service Date/Time: April 10:31 - CONCLUSION: 1. Solitary mildly enlarged right submandibular lymph node. Mild inflammatory change seen directly adjacent to the body of the mandible. This would suggest an infectious or inflammatory process with reactive adenopathy. No abscess or CT evidence to suggest osteomyelitis. No mass. Troy Pacheco Jr., MD Face MRI 04/28/17 0000 Signed Impressions: Service Date/Time: Friday, April 28, 2017 21:04 - CONCLUSION: Evidence of right perimandibular cellulitis and abscess with enhancement both medial and lateral to the body and ramus of the mandible. Focal 1.4 cm fluid collection inferior to the posterior body of the mandible. No abnormal enhancement with the marrow of the mandible. Troy Clarke MD PHYSICAL EXAMINATION GENERAL: No acute distress. HEENT: Right side of the face swelling has decreased significantly. No pain. Extraocular movements grossly intact. Pupils reactive to light. No icterus. Oropharynx moist mucosa without lesion. NECK: Supple without adenopathy. LUNGS: Clear breath sounds. HEART: Regular S1-S2 without murmurs, rubs, or gallops. ABDOMEN: Bowel sounds present. Soft. Nontender. EXTREMITIES: No clubbing, cyanosis or edema. SKIN: No rash. NEUROLOGIC: No gross focal findings. PSYCHIATRIC: Calm and cooperative. IMPRESSION 1. Neutropenic fever. Negative culture. Fever improved. 2. Acute myeloblastic leukemia. 3. Perimandibular cellulitis/Small fluid collection on MRI not seen on CT scan. ? sialoadenitis. Clinically stable. RECOMMENDATIONS 1. Stop vancomycin. 2. Stop aztreonam. 3. Stop metronidazole. 4. Stop micafungin. Okay to discharge on PO Doxycycline 100mg x 7 days. D/W RN and PA. Jim Grande MD May 04, 2017 13:04
[2017-05-04] MEDS ORDERED: DOXY100C PO (13:12)
--- NOTE | 2017-05-04 13:13 | HHI.DCPOC ---
Discharge Care Plan Diagnosis: (1) Pancytopenia (2) Acute myeloid leukemia Goals to Promote Your Health * To prevent worsening of your condition and complications * To maintain your health at the optimal level Directions to Meet Your Goals Take your medications as prescribed Follow your dietary instruction Follow activity as directed Keep your appointments as scheduled Take your immunizations and boosters as scheduled If your symptoms worsen call your PCP, if no PCP go to Urgent Care Center or Emergency Room Smoking is Dangerous to Your Health. Avoid second hand smoke Call the 24-hour hour crisis hotline for domestic abuse at Julianna Mcdaniel May 04, 2017 13:13
--- NOTE | 2017-05-04 13:21 | HHI.DS ---
Discharge Summary Admission Date Apr 28, 2017 at 14:18 Discharge Date: May 04, 2017 Admitting Diagnosis Neutropenic fever. AML (1) Acute myeloid leukemia Diagnosis: Principal ICD Codes: C92.00 - Acute myeloblastic leukemia, not having achieved remission Status: Acute (2) Pancytopenia Diagnosis: Principal ICD Codes: D61.818 - Other pancytopenia Status: Acute (3) Hypertension Diagnosis: Principal ICD Codes: I10 - Essential (primary) hypertension Status: Chronic Brief History 57-year-old woman with replased acute myeloid leukemia on Dacogen plus RYDAPT therapy. She came to the clinic on April 28, 2017 and was complaining of weakness fatigue and fever. She was admitted for neutropenic fever. CBC/BMP: 05/03/17 0419 05/03/17 0419 Significant Findings Laboratory Tests Test 05/02/17 04:30 05/02/17 12:15 05/03/17 04:19 05/03/17 19:52 Vancomycin Level Trough 13.1 MCG/ML (5.0-10.0) White Blood Count 2.0 TH/MM3 (4.0-11.0) 1.5 TH/MM3 (4.0-11.0) Red Blood Count 3.20 MIL/MM3 (4.00-5.30) 3.12 MIL/MM3 (4.00-5.30) Hemoglobin 9.4 GM/DL (11.6-15.3) 9.0 GM/DL (11.6-15.3) Hematocrit 28.7 % (35.0-46.0) 27.9 % (35.0-46.0) Red Cell Distribution Width 20.6 % (11.6-17.2) 20.3 % (11.6-17.2) Platelet Count 52 TH/MM3 (150-450) 53 TH/MM3 (150-450) Neutrophils # (Manual) 1.2 TH/MM3 (1.8-7.7) 0.6 TH/MM3 (1.8-7.7) Myelocytes 1 % (0-0) 4 % (0-0) Nucleated Red Blood Cells 9 /100 WBC (0-0) 9 /100 WBC (0-0) Blastocytes 16 % (0-0) 10 % (0-0) Toxic Granulation 1+ (NORMAL) Toxic Vacuolation PRESENT (NONE SEEN) Platelet Estimate LOW (NORMAL) LOW (NORMAL) Basophilic Stippling MOD (NORMAL) Random Glucose 122 MG/DL (74-106) 145 MG/DL (74-106) Potassium Level 3.4 MEQ/L (3.5-5.1) 3.0 MEQ/L (3.5-5.1) Monocytes % 9 % (0-8) Metamyelocytes 3 % (0-1) Imaging Last Impressions Chest CT 05/01/17 0000 Signed Impressions: Service Date/Time: Tuesday, May 02, 2017 10:33 - CONCLUSION: Negative for failure or parenchymal inflammatory process. Charles Castro MD FACR Chest X-Ray 04/30/17 0000 Signed Impressions: Service Date/Time: Sunday, April 30, 2017 08:41 - CONCLUSION: 1. No acute abnormality or significant interval change. Jim Pink MD Neck CT 04/29/17 0000 Signed Impressions: Service Date/Time: April 10:31 - CONCLUSION: 1. Solitary mildly enlarged right submandibular lymph node. Mild inflammatory change seen directly adjacent to the body of the mandible. This would suggest an infectious or inflammatory process with reactive adenopathy. No abscess or CT evidence to suggest osteomyelitis. No mass. Troy Pacheco Jr., MD Head Magnetic Resonance Angiography 04/29/17 0000 Signed Impressions: Service Date/Time: , April 29, 2017 12:31 - CONCLUSION: Normal examination for a patient of this age. Jacinto Tello MD Face MRI 04/28/17 0000 Signed Impressions: Service Date/Time: Friday, April 28, 2017 21:04 - CONCLUSION: Evidence of right perimandibular cellulitis and abscess with enhancement both medial and lateral to the body and ramus of the mandible. Focal 1.4 cm fluid collection inferior to the posterior body of the mandible. No abnormal enhancement with the marrow of the mandible. Troy Clarke MD PE at Discharge please see physical exam from progress note on date of discharge Hospital Course Ms. Arroyo was admitted on April 28, 2017 for neutropenic fever. Blood cultures were obtained, home medications were resumed and antibiotics started. Infectious disease was consulted for antibiotic recommendations. Maxillofacial surgery and ENT were consulted for recommendations as well. The patient had blood cultures drawn on 04/28/17, 04/30/17 and 05/01/17. All blood cultures remained negative. On 05/04/17 she was discharged on Doxycycline 100mg PO BID x 7 days with instructions for follow up tomorrow with Dr. Levin. Pt Condition on Discharge: Good Discharge Disposition: Discharge Home Discharge Instructions DIET: Follow Instructions for: As Tolerated, No Restrictions Activities you can perform: Regular-No Restrictions Julianna Mcdaniel May 04, 2017 13:21
[2017-05-04] MEDS ORDERED: PRED2.5T PO (13:24)
[2017-05-05] MEDS ORDERED: PHARMACY ORDERED LAB ONE ×2 (07:45→19:45)
== END 2017-05-04 15:28 | disposition home or self-care (01) | DRG 809 ==
LOC: HCIN 14:18
PROVIDERS: ADMIT Internal Medicine Hematology & Oncology; ATTEND Internal Medicine Hematology & Oncology
PROC: 30233N1 Transfusion of Nonautologous Red Blood Cells into Peripheral Vein, Percutaneous Approach (ICD-10-PCS; principal; 2017-04-30)
DX: D70.9 Neutropenia, unspecified (principal); C92.02 Acute myeloblastic leukemia, in relapse; R50.81 Fever presenting with conditions classified elsewhere; I10 Essential (primary) hypertension; J44.9 Chronic obstructive pulmonary disease, unspecified; F32.9 Major depressive disorder, single episode, unspecified; F41.9 Anxiety disorder, unspecified; E78.00 Pure hypercholesterolemia, unspecified; M06.9 Rheumatoid arthritis, unspecified; R01.1 Cardiac murmur, unspecified; K11.20 Sialoadenitis, unspecified; T38.0X5A Adverse effect of glucocorticoids and synthetic analogues, initial encounter; R73.9 Hyperglycemia, unspecified; R51 Headache; R00.0 Tachycardia, unspecified; Z87.891 Personal history of nicotine dependence; Z85.41 Personal history of malignant neoplasm of cervix uteri
CPT/HCPCS: 36430; 70492; 70543; 70544; 71010; 71250; 80048; 80053; 80202; 81001; 83036; 85007; 85027; 86850; 86900; 86901; 86920; 87040; 93306; 94664; 96365; 96372; A9579; J1442; J1642; J2060; J2248; J2270; J2405; J3370; J7030; J7040; J7050; J7512; P9040; Q9967

== ENCOUNTER 2017-05-14 09:38 | Day surgery (SDC) | payer OTHER ==
[~2017-05-14] VITALS: Ht 154.9 cm; Wt 83.6 kg
[~2017-05-14 09:38] MED LIST changes: +DOXY100C PO; -LEVO500T8 PO
[2017-05-14 09:57] VITALS: BP 142/95; PULSE 96; RESP 20; TEMP 98.2; O2SAT 94
[2017-05-14 10:27] LABS: HEMATOCRIT 28.6 % (35.0-46.0); HEMOGLOBIN 9.3 GM/DL (11.6-15.3); MEAN CELL VOLUME 88.3 FL (80.0-100.0); MEAN CORPUSCULAR HEMOGLOBIN 28.6 PG (27.0-34.0); MEAN CORPUSCULAR HGB CONC 32.4 % (32.0-36.0); MEAN PLATELET VOLUME 9.4 FL (7.0-11.0); PLATELET COUNT 67 TH/MM3 (150-450); RED BLOOD COUNT 3.24 MIL/MM3 (4.00-5.30); RED CELL DISTRIBUTION WIDTH 20.2 % (11.6-17.2); WHITE BLOOD COUNT 0.5 TH/MM3 (4.0-11.0)
[2017-05-14] MEDS ORDERED: SODIUM CHLOR 0.9% 1000 ML IV SCH (10:30)
[2017-05-14] MEDS ORDERED: IMPLANTED VASCULAR ACCESS DEVICE/PORT - SODIUM CHLORIDE FLUSH PRN IV FLUSH (11:00)
[2017-05-14] MEDS ORDERED: IMPLANTED VASCULAR ACCESS DEVICE/PORT - SODIUM CHLORIDE FLUSH IV FLUSH SCH (11:00)
[2017-05-14 11:26] LABS: BASOPHILS 1 % (0-2); BLASTS 4 % (0-0); LYMPHOCYTES 59 % (9-44); MONOCYTES 21 % (0-8); POLYS (SEG NEUTROPHILS) 2 % (16-70)
[2017-05-14] MEDS ORDERED: LIDOCAINE HCL 1% 20 ML VIAL ONE (11:54)
[2017-05-14] MEDS ORDERED: MIDAZOLAM HCL 2 MG/2 ML VIAL ONE (11:58)
[2017-05-14 12:55] VITALS: BP 135/87; PULSE 89; RESP 20; TEMP 98.8; O2SAT 94
[2017-05-14 13:15] VITALS: BP 136/92; PULSE 94; RESP 20; O2SAT 93
[2017-05-14 14:00] VITALS: BP 127/78; PULSE 96; RESP 20; O2SAT 95
--- NOTE | 2017-05-14 16:01 | RADRPT ---
EXAM DATE/TIME: 05/14/2017 12:16 [place] COMPARISON: No previous studies available for comparison. INDICATIONS : Acute myeloid leukemia. SEDATION TIME: 15 minutes BIOPSY SITE: Right ilium MEDICATION(S): 1.) 3 mg midazolam (Versed) IV 2.) 175 mcg fentanyl (Sublimaze) IV DEVICE(S): 1.) 11 gauge Bone marrow biopsy needle MEDICAL HISTORY : Chronic obstructive pulmonary disease. Hypertension. Lupus. Cervical cancer, rheumatoid arthritis. SURGICAL HISTORY : Hysterectomy. Cholecystectomy. Colon resection. ENCOUNTER: Initial ACUITY: 1 day PAIN SCORE: 0/10 LOCATION: Right iliac bone A total of one core specimen(s) were obtained and sent to the laboratory for pathologic evaluation. PROCEDURE: 1. CT guided bone marrow biopsy. Prior to the procedure informed consent was obtained. Any appropriate prior imaging studies were rev iewed. Using automated exposure control and adjustment of the mA and/or kV according to patient size , radiation dose was kept as low as reasonably achievable to obtain optimal diagnostic quality images . DICOM format image data is available electronically for review and comparison. The site was prepped in a sterile fashion. Full sterile technique was used, including cap, mask, darren rile gloves and gown and a large sterile sheet. Hand hygiene and 2% chlorhexidine and/or betadine/al cohol prep was utilized per protocol for cutaneous antisepsis. The skin and subcutaneous tissues wer e infiltrated with local anesthetic solution. With CT guidance the previously identified target was localized. Biopsy was performed using the presc ribed needle as above. Following biopsy marrow aspiration was performed with repeat puncture. Adequa te hemostasis was obtained with compression at the puncture site. Follow-up CT scan reveals no hemorrhage. Conscious sedation was performed with the prescribed dosages and duration as above in the presence of an independent trained radiology nurse to assist in the monitoring of the patient. EKG and oximetry remained stable throughout the procedure. The patient tolerated the procedure well and there were no complications. The patient was sent to Radiology Outpatient Unit in stable condition. CONCLUSION: 1. Uncomplicated CT guided bone marrow aspirate. 2. Uncomplicated CT guided bone marrow biopsy. Malcolm Coker MD on May 14, 2017 at 15:58 Board Certified Radiologist. This report was verified electronically.
== END 2017-05-14 15:00 | disposition home or self-care (01) ==
LOC: HRAD 09:38 → HRIP 09:44 → HRAD 15:00
PROVIDERS: ATTEND Internal Medicine Hematology & Oncology
DX: C92.00 Acute myeloblastic leukemia, not having achieved remission (principal); D61.818 Other pancytopenia
CPT/HCPCS: 38222; 77012; 85007; 85027; 85097; 88184; 88185; 88237; 88264; 88305; 88311; 88313; 99152; C1830; J2250; J3010; J7030; 38221

== ENCOUNTER 2017-05-24 06:30 | Inpatient (IN) | payer OTHER, MEDICARE ==
[~2017-05-24] VITALS: Ht 154.9 cm; Wt 80.2 kg
[2017-05-24 08:01] VITALS: BP 123/85; PULSE 77; RESP 16; TEMP 98.8; O2SAT 96
[2017-05-24] MEDS ORDERED: MELA5 PO (08:12)
[2017-05-24 08:47] LABS: HEMATOCRIT 27.9 % (35.0-46.0); HEMOGLOBIN 9.1 GM/DL (11.6-15.3); MEAN CELL VOLUME 88.9 FL (80.0-100.0); MEAN CORPUSCULAR HEMOGLOBIN 29.2 PG (27.0-34.0); MEAN CORPUSCULAR HGB CONC 32.8 % (32.0-36.0); MEAN PLATELET VOLUME 9.3 FL (7.0-11.0); PLATELET COUNT 165 TH/MM3 (150-450); RED BLOOD COUNT 3.13 MIL/MM3 (4.00-5.30); RED CELL DISTRIBUTION WIDTH 20.8 % (11.6-17.2)
[2017-05-24 09:00] LABS: ALBUMIN 3.4 GM/DL (3.4-5.0); ALT (GPT) 43 U/L (10-53); AST (GOT) 18 U/L (15-37); BLOOD UREA NITROGEN 11 MG/DL (7-18); CALCIUM 9.2 MG/DL (8.5-10.1); CHLORIDE 105 MEQ/L (98-107); CREATININE 0.57 MG/DL (0.50-1.00); GLOMERULAR FILTRATION RATE 109 ML/MIN (>89); GLUCOSE,RANDOM 96 MG/DL (74-106); SODIUM (NA) 139 MEQ/L (136-145)
[2017-05-24 09:02] LABS: ALKALINE PHOSPHATASE 69 U/L (45-117); TOTAL BILIRUBIN ADULT 0.9 MG/DL (0.2-1.0)
[2017-05-24] MEDS: CARVEDILOL 3.125 MG TAB PO SCH (10:03)
[2017-05-24] MEDS: amLODIPine BESYLATE 5 MG TAB PO SCH (10:03)
[2017-05-24] MEDS: LOSARTAN 50 MG TAB PO SCH (10:03)
[2017-05-24] MEDS: HYDROCHLOROTHIAZIDE 25 MG TAB PO SCH (10:03)
[2017-05-24 10:43] LABS: BLASTS 22 % (0-0); CORRECTED NUCLEATED RBC 3 /100 WBC (0-0); LYMPHOCYTES 44 % (9-44); METAMYELOCYTES 1 % (0-1); MONOCYTES 31 % (0-8); NUCLEATED RED BLOOD CELL 3 (0-0); POLYS (SEG NEUTROPHILS) 1 % (16-70)
[2017-05-24 12:40] VITALS: BP 129/84; PULSE 77; RESP 16; TEMP 98.1; O2SAT 94
[2017-05-24] MEDS: NYSTAT/DIPHENHY/LIDO MOUTHWASH (Adult) 120ML SWISH-SWAL SCH ×3 (13:00→20:18)
[2017-05-24] MEDS: GRANISETRON HCL 1 MG/ML VIAL IV PUSH SCH (15:30)
[2017-05-24] MEDS: DEXAMETHASONE INJ 20 MG in SODIUM CHLORIDE 0.9% INJ 50 ML IV SCH (15:43)
[2017-05-24 15:48] VITALS: BP 121/80; PULSE 76; RESP 16; TEMP 98.5; O2SAT 99
[2017-05-24] MEDS: CLADRIBINE IV SCH (16:52)
[2017-05-24] MEDS: SODIUM CHLORID 0.9% IV SCH ×2 (16:52→21:44)
[2017-05-24 20:12] VITALS: BP 127/80; PULSE 92; RESP 16; TEMP 99.6; O2SAT 97
[2017-05-24] MEDS: FILGRASTIM 300 MCG/ML VIAL SQ SCH (20:18)
[2017-05-24] MEDS: CYTARABINE IV SCH (21:44)
--- NOTE | 2017-05-24 21:53 | MH ---
cc: MIKAYLA CASTANEDA M.D. 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 HISTORY OF PRESENT ILLNESS Ashley is a pleasant unfortunate 57 year-old female. She was diagnosed with acute myeloid leukemia in August of last year. She had a normal chromosome 46 XX, but the FLT3 was positive and NPM1 was negative. She was treated with induction chemotherapy with cytarabine and daunorubicin 7+3, which failed to put her into remission. Subsequently she was treated with CLAG chemotherapy with Rydapt and she finally went into remission. The patient subsequently had first dose of high dose Zuleyka-C consolidation chemotherapy last November. She was referred to [facility] for bone marrow transplant. Prior to the transplant, she had a repeat bone marrow biopsy in February. This showed that she had relapse. It was recommended for the patient to have Dacogen chemotherapy for two cycles and repeat the bone marrow biopsy. The patient had the repeat bone marrow biopsy on May 14 which showed persistent leukemia with 37% blasts. The chromosomes came back normal at 46 XX but the FLT3 is still positive. I have discussed with the patient regarding the salvage chemotherapy with CLAG-M chemotherapy. The patient has agreed. She wanted to have one week off before coming in today for the salvage chemotherapy. The patient is overall feeling better. She does not have any fevers. She denies any nausea or vomiting. She had shaved her head in preparation for the chemotherapy as she knows that she will lose her hair. She denies any fever. She denies any shortness of breath. Her appetite is good. PAST MEDICAL HISTORY: 1. Rheumatoid arthritis. 2. Anxiety disorder. 3. COPD. 4. Depression. 5. Hypercholesterolemia. 6. Hypertension. 7. Irregular heart beat. PAST SURGICAL HISTORY: 1. . 2. Cholecystectomy. 3. Colon resection. 4. Complete hysterectomy. 5. [id number]-[id number] placement. 6. Right foot surgery. 7. Colonoscopy. ALLERGIES: CEFEPIME ROBAXIN SULFA MEDICATIONS: 1. Amlodipine. 2. Carvedilol. 3. Hydrochlorothiazide. 4. Losartan. FAMILY HISTORY: Mother from a stroke. Father from aneurysm. The patient does not have any siblings or any sons. She has two daughters both are alive and well. SOCIAL HISTORY: The patient is . She quit smoking 12 years ago. She used to smoke one pack a day for 35 years. She does not drink alcohol. PHYSICAL EXAMINATION: The patient is a well-developed, well-nourished white female in no apparent distress. Vital signs: Temperature 98.8, heart rate 77, blood pressure 123/85, O2 saturation 96% on room air. HEENT: PERRLA, EOMI, anicteric. No oral lesions are noted. Neck: No lymphadenopathy noted. Lungs: Lungs are clear. No wheezing, rhonchi or rales. Heart: Heart is regular rate and rhythm. Abdomen: Soft, nontender. No hepatosplenomegaly. Extremities: No pedal edema. Neurology: Awake, alert, oriented times three. Skin: No significant lesions noted. ASSESSMENT 1. Relapse acute myeloid leukemia with normal chromosome 46 XX but FLT3 is still positive. 2. Hypertension. 3. Depression. PLAN I have discussed with the patient regarding further treatment plan for her relapsed acute myeloid leukemia. The recent bone marrow biopsy showed that she still has significant blasts of 37% in the bone marrow. The CBC today showed white count of 1, hemoglobin 9.1, platelet count is 165. The differential count is significant for 22% peripheral blasts. I have recommended salvage chemotherapy with CLAG-M. The risks, benefits and alternatives of the chemotherapy were discussed with the patient. I have discussed the side effects of the CLAG-M and chemotherapy as well. The patient has agreed and wants to proceed with that. She will have cladribine, Zuleyka-C and G-CSF for five days. She will also get mitoxantrone chemotherapy for three days. She will be on right Rydapt 50 mg twice a day starting the 8th and then she will take it for 14 days. Will monitor her blood count daily and will give her transfusion support as needed. If the hemoglobin is less than 7, then she will get two units of blood transfusion. If the platelet count is less than 15, then will give her platelet transfusion. All blood products would be irradiated as she is a candidate for bone marrow transplant. She had a comprehensive metabolic profile today which came back normal except that the potassium is mildly low at 3.4 and she does not need any supplement for that. The patient has asked questions and these were answered to her satisfaction. MD ABEL Mcginnis/STEVE /8:45 PM /9:25 PM
[2017-05-24 22:30] VITALS: PULSE 80
[2017-05-25] VITALS (7 sets, daily range): BP systolic 116–165; BP diastolic 68–92; PULSE 77–95; RESP 16–20; TEMP 97.6–98.1; O2SAT 96–99
[2017-05-25] MEDS: [UNRECOGNIZED DRUG - OTHER] IV SCH (02:39)
[2017-05-25] MEDS: SODIUM CHLORIDE 0.9% IV SCH (02:39)
[2017-05-25 05:20] LABS: HEMATOCRIT 27.3 % (35.0-46.0); HEMOGLOBIN 8.7 GM/DL (11.6-15.3); MEAN CELL VOLUME 89.7 FL (80.0-100.0); MEAN CORPUSCULAR HEMOGLOBIN 28.7 PG (27.0-34.0); MEAN PLATELET VOLUME 9.7 FL (7.0-11.0); PLATELET COUNT 166 TH/MM3 (150-450); RED BLOOD COUNT 3.04 MIL/MM3 (4.00-5.30); RED CELL DISTRIBUTION WIDTH 21.6 % (11.6-17.2); WHITE BLOOD COUNT 1.1 TH/MM3 (4.0-11.0)
[2017-05-25 05:43] LABS: BICARBONATE 27.7 MEQ/L (21.0-32.0); CALCIUM 9.1 MG/DL (8.5-10.1); CREATININE 0.54 MG/DL (0.50-1.00)
[2017-05-25 07:07] LABS: BANDS 4 % (0-6); BLASTS 12 % (0-0); CORRECTED NUCLEATED RBC 6 /100 WBC (0-0); LYMPHOCYTES 37 % (9-44); MONOCYTES 3 % (0-8); NEUTROPHIL # MANUAL DIFF 0.5 TH/MM3 (1.8-7.7); NUCLEATED RED BLOOD CELL 6 (0-0); POLYS (SEG NEUTROPHILS) 44 % (16-70)
[2017-05-25 07:09] LABS: OVALOCYTES 1+ (NORMAL)
[2017-05-25] MEDS: NYSTAT/DIPHENHY/LIDO MOUTHWASH (Adult) 120ML SWISH-SWAL SCH ×4 (08:47→20:43)
[2017-05-25] MEDS: CARVEDILOL 3.125 MG TAB PO SCH (08:48)
[2017-05-25] MEDS: HYDROCHLOROTHIAZIDE 25 MG TAB PO SCH (08:48)
[2017-05-25] MEDS: LOSARTAN 50 MG TAB PO SCH (08:48)
[2017-05-25] MEDS: amLODIPine BESYLATE 5 MG TAB PO SCH (08:48)
--- NOTE | 2017-05-25 09:10 | PD.ONC.PN ---
Subjective Subjective Remarks Afebrile overnight. Patient resting in bed in nad. Jaw feeling a bit better today. Patient feels the magic mouthwash is helping. Tolerated day one of chemotherapy without difficulty yesterday. Objective Data Date Time Temp Pulse Resp B/P (MAP) Pulse Ox O2 Delivery O2 Flow Rate FiO2 05/25/17 04:21 97.9 82 16 118/78 (91) 97 05/25/17 00:50 97.6 77 17 123/92 (102) 97 05/24/17 22:30 80 05/24/17 20:12 99.6 92 16 127/80 (96) 97 05/24/17 15:48 98.5 76 16 121/80 (94) 99 05/24/17 12:40 98.1 77 16 129/84 (99) 94 05/25/17 05/25/17 05/25/17 07:00 15:00 23:00 Output Total 1200 ml Balance -1200 ml Result Diagram: 05/25/17 0425 05/25/17 0425 Laboratory Results Laboratory Tests Test 05/25/17 04:25 White Blood Count 1.1 TH/MM3 Red Blood Count 3.04 MIL/MM3 Hemoglobin 8.7 GM/DL Hematocrit 27.3 % Mean Corpuscular Volume 89.7 FL Mean Corpuscular Hemoglobin 28.7 PG Mean Corpuscular Hemoglobin Concent 32.0 % Red Cell Distribution Width 21.6 % Platelet Count 166 TH/MM3 Mean Platelet Volume 9.7 FL CBC Comment AUTO DIFF Differential Total Cells Counted 100 Neutrophils % (Manual) 44 % Band Neutrophils % 4 % Lymphocytes % 37 % Monocytes % 3 % Neutrophils # (Manual) 0.5 TH/MM3 Nucleated Red Blood Cells 6 /100 WBC Differential Comment FINAL DIFF MANUAL Blastocytes 12 % Platelet Estimate NORMAL Platelet Morphology Comment ENLARGED Basophilic Stippling MOD Tear Drop Cells Ovalocytes 1+ Prothrombin Time 10.0 SEC Prothromb Time International Ratio 1.0 RATIO Activated Partial Thromboplast Time 23.1 SEC Blood Urea Nitrogen 10 MG/DL Creatinine 0.54 MG/DL Random Glucose 156 MG/DL Calcium Level 9.1 MG/DL Sodium Level 140 MEQ/L Potassium Level 4.1 MEQ/L Chloride Level 106 MEQ/L Carbon Dioxide Level 27.7 MEQ/L Anion Gap 6 MEQ/L Estimat Glomerular Filtration Rate 116 ML/MIN Administered Medications Medications (Trade) Dose Ordered Sig/Zeynep Route PRN Reason Start Time Stop Time Status Last Admin Dose Admin Carvedilol (Coreg) 3.125 mg DAILY PO 05/24/17 09:00 05/25/17 08:48 Amlodipine Besylate (Norvasc) 5 mg DAILY PO 05/24/17 09:00 05/25/17 08:48 Losartan Potassium (Cozaar) 100 mg DAILY PO 05/24/17 09:00 05/25/17 08:48 Hydrochlorothiazide (Hydrodiuril) 25 mg DAILY PO 05/24/17 09:00 05/25/17 08:48 Oxycodone HCl (Roxicodone) 5 mg Q4H PRN PO pain>5 05/24/17 12:15 05/24/17 20:34 Granisetron HCl (Kytril Inj) 1 mg DAILY@1530 IV PUSH 05/24/17 15:30 05/28/17 15:31 05/24/17 15:30 Dexamethasone Sodium Phosphate 20 mg/Sodium Chloride 55 ml @ 330 mls/hr DAILY@1530 IV 05/24/17 15:30 05/28/17 15:39 05/24/17 15:43 Cladribine 9.2 mg/ Sodium Chloride 509.2 ml @ 254.6 mls/ hr DAILY@1600 IV 05/24/17 16:00 05/28/17 17:59 05/24/17 16:52 Cytarabine 3680 mg/Sodium Chloride 500 ml @ 125 mls/hr DAILY@1800 IV 05/24/17 18:00 05/28/17 21:59 05/24/17 21:44 Filgrastim (Neupogen Inj) 300 mcg DAILY@2200 SQ 05/24/17 22:00 05/28/17 22:01 05/24/17 20:18 Mitoxantrone HCl 18.4 mg/Sodium Chloride 109.2 ml @ 655.2 mls/ hr DAILY@2200 IV 05/24/17 22:00 05/26/17 22:09 05/25/17 02:39 Multi-Ingredient Mouthwash/Gargle (Magic Mouthwash Adult Liq) 5 ml QID SWISH-SWAL 05/24/17 13:00 05/25/17 08:47 Objective Remarks GENERAL: Pleasant chronically ill appearing female, sitting up in bed eating breakfast. SKIN: Warm and dry. HEAD: Normocephalic. mild swelling, left jaw. EYES: No injection or drainage. NECK: Supple, trachea midline. CARDIOVASCULAR: Regular rate and rhythm RESPIRATORY: Breath sounds equal bilaterally. No accessory muscle use. GASTROINTESTINAL: Abdomen soft, non-tender, nondistended. EXTREMITIES: No cyanosis, NEUROLOGICAL: No obvious focal deficit. Awake, alert, and oriented x3. 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 tolerated D1 05/25: D2. monitor CBC, bilirubin. (2) Hypertension ICD Codes: I10 - Essential (primary) hypertension Status: Chronic Plan: --on home medications. Assessment 57y/o female admitted for salvage chemotherapy for relapse of acute myeloid leukemia, FLT3 positive. h/o Rheumatoid arthritis. Anxiety disorder. COPD. Depression. Hypercholesterolemia. Hypertension. Irregular heart beat. History of AML (brought forward from initial consult for continuity of care): diagnosed with acute myeloid leukemia in August of last year. She had a normal chromosome 46 XX, but the FLT3 was positive and NPM1 was negative. She was treated with induction chemotherapy with cytarabine and daunorubicin 7+3, which failed to put her into remission. Subsequently she was treated with CLAG chemotherapy with Rydapt and she finally went into remission. The patient subsequently had first dose of high dose Zuleyka-C consolidation chemotherapy last November. She was referred to [facility] for bone marrow transplant. Prior to the transplant, she had a repeat bone marrow biopsy in February. This showed that she had relapsed. It was recommended for the patient to have Dacogen chemotherapy for two cycles and repeat the bone marrow biopsy. The patient had the repeat bone marrow biopsy on May 14 which showed persistent leukemia with 37% blasts. The chromosomes came back normal at 46 XX but the FLT3 is still positive Attending Statement The exam, history, and the medical decision-making described in the above note were completed with the assistance of the mid-level provider. I reviewed and agree with the findings presented. I attest that I had a [id number] encounter with the patient on the same day, and personally performed and documented my assessment and findings in the medical record. No N/V Feels better day 2 of CLAG-M chemo. Tolerating well. Monitor labs with tx support Problem Qualifiers (1) Hypertension: Qualified Codes: I10 - Essential (primary) hypertension Julianna Mcdaniel May 25, 2017 09:09 April Fonseca MD May 25, 2017 18:28
[2017-05-25] MEDS: PANTOPRAZOLE SOD 40 MG DELAYED RELEASE TAB PO SCH (10:59)
[2017-05-25] MEDS: DEXAMETHASONE INJ 20 MG in SODIUM CHLORIDE 0.9% INJ 50 ML IV SCH (15:54)
[2017-05-25] MEDS: GRANISETRON HCL 1 MG/ML VIAL IV PUSH SCH (15:54)
[2017-05-25] MEDS: CLADRIBINE IV SCH (17:04)
[2017-05-25] MEDS: SODIUM CHLORID 0.9% IV SCH ×2 (17:04→21:22)
[2017-05-25] MEDS: FILGRASTIM 300 MCG/ML VIAL SQ SCH (20:43)
[2017-05-25] MEDS: CYTARABINE IV SCH (21:22)
[2017-05-26] VITALS (7 sets, daily range): BP systolic 105–144; BP diastolic 69–91; PULSE 49–98; RESP 16–20; TEMP 97.9–98.4; O2SAT 95–98
[2017-05-26] MEDS: SODIUM CHLORIDE 0.9% IV SCH (02:38)
[2017-05-26] MEDS: [UNRECOGNIZED DRUG - OTHER] IV SCH (02:38)
[2017-05-26 05:45] LABS: HEMATOCRIT 25.9 % (35.0-46.0); HEMOGLOBIN 8.3 GM/DL (11.6-15.3); MEAN CELL VOLUME 88.9 FL (80.0-100.0); MEAN CORPUSCULAR HEMOGLOBIN 28.5 PG (27.0-34.0); MEAN PLATELET VOLUME 9.7 FL (7.0-11.0); PLATELET COUNT 158 TH/MM3 (150-450); RED BLOOD COUNT 2.91 MIL/MM3 (4.00-5.30); RED CELL DISTRIBUTION WIDTH 21.2 % (11.6-17.2); WHITE BLOOD COUNT 1.3 TH/MM3 (4.0-11.0)
[2017-05-26 06:01] LABS: BICARBONATE 27.5 MEQ/L (21.0-32.0); CALCIUM 8.4 MG/DL (8.5-10.1); CREATININE 0.64 MG/DL (0.50-1.00); DIRECT BILIRUBIN ADULT 0.1 MG/DL (0.0-0.2)
[2017-05-26 06:03] LABS: INDIRECT BILIRUBIN 0.2 MG/DL (0.0-0.8); TOTAL BILIRUBIN ADULT 0.3 MG/DL (0.2-1.0); TOTAL PROTEIN 6.3 GM/DL (6.4-8.2)
[2017-05-26 07:07] LABS: BANDS 2 % (0-6); BLASTS 3 % (0-0); LYMPHOCYTES 15 % (9-44); MONOCYTES 17 % (0-8); NEUTROPHIL # MANUAL DIFF 0.8 TH/MM3 (1.8-7.7); POLYS (SEG NEUTROPHILS) 63 % (16-70)
--- NOTE | 2017-05-26 09:58 | PD.ONC.PN ---
Subjective Subjective Remarks Afebrile VITAL signs stable Patient reports she has not had a bowel movement in 3 days and feels somewhat bloated Otherwise no acute complaints Objective Data Date Time Temp Pulse Resp B/P (MAP) Pulse Ox O2 Delivery O2 Flow Rate FiO2 05/26/17 05:20 49 05/26/17 04:00 98.2 60 17 116/75 (89) 96 05/26/17 00:31 98.4 66 16 113/69 (84) 98 05/25/17 21:25 125/71 (89) 05/25/17 20:00 83 05/25/17 20:00 98.1 84 16 165/84 (111) 98 05/25/17 15:53 97.8 82 20 135/79 (97) 97 05/25/17 12:14 97.9 85 16 119/68 (85) 99 05/26/17 05/26/17 05/26/17 07:00 15:00 23:00 Output Total 1200 ml Balance -1200 ml Result Diagram: 05/26/17 0520 05/26/17 0520 Laboratory Results Laboratory Tests Test 05/26/17 05:20 White Blood Count 1.3 TH/MM3 Red Blood Count 2.91 MIL/MM3 Hemoglobin 8.3 GM/DL Hematocrit 25.9 % Mean Corpuscular Volume 88.9 FL Mean Corpuscular Hemoglobin 28.5 PG Mean Corpuscular Hemoglobin Concent 32.0 % Red Cell Distribution Width 21.2 % Platelet Count 158 TH/MM3 Mean Platelet Volume 9.7 FL CBC Comment AUTO DIFF Differential Total Cells Counted 100 Neutrophils % (Manual) 63 % Band Neutrophils % 2 % Lymphocytes % 15 % Monocytes % 17 % Neutrophils # (Manual) 0.8 TH/MM3 Differential Comment FINAL DIFF MANUAL Blastocytes 3 % Platelet Estimate NORMAL Platelet Morphology Comment ENLARGED Blood Urea Nitrogen 17 MG/DL Creatinine 0.64 MG/DL Random Glucose 145 MG/DL Total Protein 6.3 GM/DL Albumin 3.0 GM/DL Calcium Level 8.4 MG/DL Alkaline Phosphatase 62 U/L Aspartate Amino Transf (AST/SGOT) 10 U/L Alanine Aminotransferase (ALT/SGPT) 36 U/L Total Bilirubin 0.3 MG/DL Direct Bilirubin 0.1 MG/DL Sodium Level 142 MEQ/L Potassium Level 4.3 MEQ/L Chloride Level 108 MEQ/L Carbon Dioxide Level 27.5 MEQ/L Anion Gap 7 MEQ/L Estimat Glomerular Filtration Rate 95 ML/MIN Indirect Bilirubin 0.2 MG/DL Administered Medications Medications (Trade) Dose Ordered Sig/Zeynep Route PRN Reason Start Time Stop Time Status Last Admin Dose Admin Carvedilol (Coreg) 3.125 mg DAILY PO 05/24/17 09:00 05/25/17 08:48 Amlodipine Besylate (Norvasc) 5 mg DAILY PO 05/24/17 09:00 05/25/17 08:48 Losartan Potassium (Cozaar) 100 mg DAILY PO 05/24/17 09:00 05/25/17 08:48 Hydrochlorothiazide (Hydrodiuril) 25 mg DAILY PO 05/24/17 09:00 05/25/17 08:48 Oxycodone HCl (Roxicodone) 5 mg Q4H PRN PO pain>5 05/24/17 12:15 05/24/17 20:34 Granisetron HCl (Kytril Inj) 1 mg DAILY@1530 IV PUSH 05/24/17 15:30 05/28/17 15:31 05/25/17 15:54 Dexamethasone Sodium Phosphate 20 mg/Sodium Chloride 55 ml @ 330 mls/hr DAILY@1530 IV 05/24/17 15:30 05/28/17 15:39 05/25/17 15:54 Cladribine 9.2 mg/ Sodium Chloride 509.2 ml @ 254.6 mls/ hr DAILY@1600 IV 05/24/17 16:00 05/28/17 17:59 05/25/17 17:04 Cytarabine 3680 mg/Sodium Chloride 500 ml @ 125 mls/hr DAILY@1800 IV 05/24/17 18:00 05/28/17 21:59 05/25/17 21:22 Filgrastim (Neupogen Inj) 300 mcg DAILY@2200 SQ 05/24/17 22:00 05/28/17 22:01 05/25/17 20:43 Mitoxantrone HCl 18.4 mg/Sodium Chloride 109.2 ml @ 655.2 mls/ hr DAILY@2200 IV 05/24/17 22:00 05/26/17 22:09 05/26/17 02:38 Multi-Ingredient Mouthwash/Gargle (Magic Mouthwash Adult Liq) 5 ml QID SWISH-SWAL 05/24/17 13:00 05/25/17 20:43 Pantoprazole Sodium (Protonix) 40 mg DAILY PO 05/25/17 09:15 05/29/17 09:01 05/25/17 10:59 Objective Remarks GENERAL: Older female sitting up in chair eating breakfast in no acute distress SKIN: Warm and dry. Few scattered bruises noted to arms HEAD: Normocephalic. EYES: No injection or drainage. NECK: Supple, trachea midline. CARDIOVASCULAR: Regular rate and rhythm without murmurs. RESPIRATORY: Clear posteriorly. Breathing unlabored at rest. GASTROINTESTINAL: Abdomen soft, non-tender, nondistended. EXTREMITIES: No cyanosis, or edema. MUSCULOSKELETAL: Adequate muscle tone. NEUROLOGICAL: No obvious focal deficit. Awake, alert, and oriented x3. 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 tolerated D1 05/25: D2. monitor CBC, bilirubin. 05/26: D3. Tolerating chemotherapy. Add on daily stool softener with prn milk of magnesia for constipation. Monitor CBC. (2) Hypertension ICD Codes: I10 - Essential (primary) hypertension Status: Chronic Plan: --on home medications. -- Stable Assessment 57y/o female admitted for salvage chemotherapy for relapse of acute myeloid leukemia, FLT3 positive. h/o Rheumatoid arthritis. Anxiety disorder. COPD. Depression. Hypercholesterolemia. Hypertension. Irregular heart beat. History of AML (brought forward from initial consult for continuity of care): diagnosed with acute myeloid leukemia in August of last year. She had a normal chromosome 46 XX, but the FLT3 was positive and NPM1 was negative. She was treated with induction chemotherapy with cytarabine and daunorubicin 7+3, which failed to put her into remission. Subsequently she was treated with CLAG chemotherapy with Rydapt and she finally went into remission. The patient subsequently had first dose of high dose Zuleyka-C consolidation chemotherapy last November. She was referred to [facility] for bone marrow transplant. Prior to the transplant, she had a repeat bone marrow biopsy in February. This showed that she had relapsed. It was recommended for the patient to have Dacogen chemotherapy for two cycles and repeat the bone marrow biopsy. The patient had the repeat bone marrow biopsy on May 14 which showed persistent leukemia with 37% blasts. The chromosomes came back normal at 46 XX but the FLT3 is still positive Attending Statement The exam, history, and the medical decision-making described in the above note were completed with the assistance of the mid-level provider. I reviewed and agree with the findings presented. I attest that I had a [id number] encounter with the patient on the same day, and personally performed and documented my assessment and findings in the medical record. No c/o Feels fine. day 3 of chemo CLAG-M Tolerating chemo well. monitor cbc Problem Qualifiers (1) Hypertension: Qualified Codes: I10 - Essential (primary) hypertension Amina Castellanos May 26, 2017 09:58 April Fonseca MD May 26, 2017 11:53
[2017-05-26] MEDS: NYSTAT/DIPHENHY/LIDO MOUTHWASH (Adult) 120ML SWISH-SWAL SCH ×4 (10:28→20:49)
[2017-05-26] MEDS: PANTOPRAZOLE SOD 40 MG DELAYED RELEASE TAB PO SCH (10:29)
[2017-05-26] MEDS: CARVEDILOL 3.125 MG TAB PO SCH (10:29)
[2017-05-26] MEDS: LOSARTAN 50 MG TAB PO SCH (10:29)
[2017-05-26] MEDS: HYDROCHLOROTHIAZIDE 25 MG TAB PO SCH (10:29)
[2017-05-26] MEDS: amLODIPine BESYLATE 5 MG TAB PO SCH (10:29)
[2017-05-26] MEDS ORDERED: MAGNESIUM HYDROXIDE SUSP 30 ML CUP PO PRN (11:00)
[2017-05-26] MEDS: DOCUSATE SODIUM 100 MG CAP PO SCH (11:23)
[2017-05-26] MEDS: DEXAMETHASONE INJ 20 MG in SODIUM CHLORIDE 0.9% INJ 50 ML IV SCH (16:54)
[2017-05-26] MEDS: GRANISETRON HCL 1 MG/ML VIAL IV PUSH SCH (16:54)
[2017-05-26] MEDS: CLADRIBINE IV SCH (17:41)
[2017-05-26] MEDS: SODIUM CHLORID 0.9% IV SCH ×2 (17:41→20:35)
[2017-05-26] MEDS: CYTARABINE IV SCH (20:35)
[2017-05-26] MEDS: FILGRASTIM 300 MCG/ML VIAL SQ SCH (20:52)
[2017-05-27] VITALS (8 sets, daily range): BP systolic 100–137; BP diastolic 52–81; PULSE 58–83; RESP 16–18; TEMP 97.7–98.4; O2SAT 97–100
[2017-05-27] MEDS: SODIUM CHLORIDE 0.9% IV SCH (01:23)
[2017-05-27] MEDS: [UNRECOGNIZED DRUG - OTHER] IV SCH (01:23)
[2017-05-27 06:10] LABS: HEMATOCRIT 22.9 % (35.0-46.0); HEMOGLOBIN 7.5 GM/DL (11.6-15.3); MEAN CELL VOLUME 89.2 FL (80.0-100.0); MEAN CORPUSCULAR HEMOGLOBIN 29.2 PG (27.0-34.0); MEAN CORPUSCULAR HGB CONC 32.7 % (32.0-36.0); MEAN PLATELET VOLUME 10.8 FL (7.0-11.0); PLATELET COUNT 130 TH/MM3 (150-450); RED BLOOD COUNT 2.57 MIL/MM3 (4.00-5.30); RED CELL DISTRIBUTION WIDTH 20.8 % (11.6-17.2); WHITE BLOOD COUNT 0.8 TH/MM3 (4.0-11.0)
[2017-05-27 06:32] LABS: BICARBONATE 27.2 MEQ/L (21.0-32.0); CALCIUM 8.3 MG/DL (8.5-10.1); CREATININE 0.46 MG/DL (0.50-1.00)
[2017-05-27 08:22] LABS: BANDS 4 % (0-6); LYMPHOCYTES 8 % (9-44); METAMYELOCYTES 2 % (0-1); MONOCYTES 8 % (0-8); NEUTROPHIL # MANUAL DIFF 0.7 TH/MM3 (1.8-7.7)
[2017-05-27 08:25] LABS: BLASTS 1 % (0-0); POLYS (SEG NEUTROPHILS) 77 % (16-70)
[2017-05-27] MEDS ORDERED: diphenhydrAMINE HCL 25 MG CAP PO PRN (09:45)
[2017-05-27] MEDS ORDERED: ACETAMINOPHEN 325 MG TAB PO PRN (09:45)
[2017-05-27] MEDS ORDERED: SODIUM CHLOR 0.9% 250 ML INJ 250 ML IV ONE (09:45)
--- NOTE | 2017-05-27 09:50 | PD.ONC.PN ---
Subjective Subjective Remarks Afebrile Patient tolerating chemotherapy Denies nausea Requesting to shower Reports she had a bowel movement last night and feels less bloated No other acute complaints Objective Data Date Time Temp Pulse Resp B/P (MAP) Pulse Ox O2 Delivery O2 Flow Rate FiO2 05/27/17 05:45 97.7 58 16 111/64 (80) 100 05/27/17 00:00 97.7 82 16 137/81 (99) 97 05/26/17 20:05 97.9 84 16 105/77 (86) 98 05/26/17 20:05 78 05/26/17 18:03 98.2 77 20 117/74 (88) 98 05/26/17 12:38 98.0 86 18 144/91 (108) 97 05/27/17 05/27/17 05/27/17 06:59 14:59 22:59 Intake Total 625 ml Output Total 900 ml Balance -275 ml Result Diagram: 05/27/17 0550 05/27/17 0550 Laboratory Results Laboratory Tests Test 05/27/17 05:50 White Blood Count 0.8 TH/MM3 Red Blood Count 2.57 MIL/MM3 Hemoglobin 7.5 GM/DL Hematocrit 22.9 % Mean Corpuscular Volume 89.2 FL Mean Corpuscular Hemoglobin 29.2 PG Mean Corpuscular Hemoglobin Concent 32.7 % Red Cell Distribution Width 20.8 % Platelet Count 130 TH/MM3 Mean Platelet Volume 10.8 FL CBC Comment AUTO DIFF Differential Total Cells Counted 50 Neutrophils % (Manual) 77 % Band Neutrophils % 4 % Lymphocytes % 8 % Monocytes % 8 % Neutrophils # (Manual) 0.7 TH/MM3 Metamyelocytes 2 % Differential Comment FINAL DIFF MANUAL Blastocytes 1 % Platelet Estimate LOW Platelet Morphology Comment ENLARGED Basophilic Stippling FAINT Blood Urea Nitrogen 17 MG/DL Creatinine 0.46 MG/DL Random Glucose 155 MG/DL Calcium Level 8.3 MG/DL Sodium Level 141 MEQ/L Potassium Level 4.2 MEQ/L Chloride Level 108 MEQ/L Carbon Dioxide Level 27.2 MEQ/L Anion Gap 6 MEQ/L Estimat Glomerular Filtration Rate 139 ML/MIN Administered Medications Medications (Trade) Dose Ordered Sig/Zeynep Route PRN Reason Start Time Stop Time Status Last Admin Dose Admin Carvedilol (Coreg) 3.125 mg DAILY PO 05/24/17 09:00 05/26/17 10:29 Amlodipine Besylate (Norvasc) 5 mg DAILY PO 05/24/17 09:00 05/26/17 10:29 Losartan Potassium (Cozaar) 100 mg DAILY PO 05/24/17 09:00 05/26/17 10:29 Hydrochlorothiazide (Hydrodiuril) 25 mg DAILY PO 05/24/17 09:00 05/26/17 10:29 Oxycodone HCl (Roxicodone) 5 mg Q4H PRN PO pain>5 05/24/17 12:15 05/24/17 20:34 Granisetron HCl (Kytril Inj) 1 mg DAILY@1530 IV PUSH 05/24/17 15:30 05/28/17 15:31 05/26/17 16:54 Dexamethasone Sodium Phosphate 20 mg/Sodium Chloride 55 ml @ 330 mls/hr DAILY@1530 IV 05/24/17 15:30 05/28/17 15:39 05/26/17 16:54 Cladribine 9.2 mg/ Sodium Chloride 509.2 ml @ 254.6 mls/ hr DAILY@1600 IV 05/24/17 16:00 05/28/17 17:59 05/26/17 17:41 Cytarabine 3680 mg/Sodium Chloride 500 ml @ 125 mls/hr DAILY@1800 IV 05/24/17 18:00 05/28/17 21:59 05/26/17 20:35 Filgrastim (Neupogen Inj) 300 mcg DAILY@2200 SQ 05/24/17 22:00 05/28/17 22:01 05/26/17 20:52 Multi-Ingredient Mouthwash/Gargle (Magic Mouthwash Adult Liq) 5 ml QID SWISH-SWAL 05/24/17 13:00 05/26/17 20:49 Pantoprazole Sodium (Protonix) 40 mg DAILY PO 05/25/17 09:15 05/29/17 09:01 05/26/17 10:29 Docusate Sodium (Colace) 100 mg DAILY PO 05/26/17 11:00 05/26/17 11:23 Magnesium Hydroxide (Milk Of Magnesia Liq) 30 ml DAILY PRN PO MILD - MODERATE CONSTIPATION 05/26/17 11:00 05/26/17 11:22 Objective Remarks GENERAL: Older female sitting up in chair watching TV. She appears comfortable SKIN: Warm and dry. Few scattered bruises noted to arms. HEAD: Normocephalic. EYES: No injection or drainage. NECK: Supple, trachea midline. CARDIOVASCULAR: Regular rate and rhythm without murmurs. RESPIRATORY: Clear posteriorly. Breathing unlabored at rest. GASTROINTESTINAL: Abdomen soft, non-tender, nondistended. EXTREMITIES: No cyanosis, or edema. MUSCULOSKELETAL: Adequate muscle tone. NEUROLOGICAL: No obvious focal deficit. Awake, alert, and oriented x3. 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 tolerated D1 05/25: D2. monitor CBC, bilirubin. 05/26: D3. Tolerating chemotherapy. Add on daily stool softener with prn milk of magnesia for constipation. Monitor CBC. 05/27: D4. Continue chemotherapy. Transfuse 1 unit irradiated packed red blood cells for hemoglobin of 7.5 as her counts are trending down. Monitor CBC, CMP. (2) Hypertension ICD Codes: I10 - Essential (primary) hypertension Status: Chronic Plan: --on home medications. -- Stable Assessment 57y/o female admitted for salvage chemotherapy for relapse of acute myeloid leukemia, FLT3 positive. h/o Rheumatoid arthritis. Anxiety disorder. COPD. Depression. Hypercholesterolemia. Hypertension. Irregular heart beat. History of AML (brought forward from initial consult for continuity of care): diagnosed with acute myeloid leukemia in August of last year. She had a normal chromosome 46 XX, but the FLT3 was positive and NPM1 was negative. She was treated with induction chemotherapy with cytarabine and daunorubicin 7+3, which failed to put her into remission. Subsequently she was treated with CLAG chemotherapy with Rydapt and she finally went into remission. The patient subsequently had first dose of high dose Zuleyka-C consolidation chemotherapy last November. She was referred to [facility] [place] for bone marrow transplant. Prior to the transplant, she had a repeat bone marrow biopsy in February. This showed that she had relapsed. It was recommended for the patient to have Dacogen chemotherapy for two cycles and repeat the bone marrow biopsy. The patient had the repeat bone marrow biopsy on May 14 which showed persistent leukemia with 37% blasts. The chromosomes came back normal at 46 XX but the FLT3 is still positive Attending Statement The exam, history, and the medical decision-making described in the above note were completed with the assistance of the mid-level provider. I reviewed and agree with the findings presented. I attest that I had a [id number] encounter with the patient on the same day, and personally performed and documented my assessment and findings in the medical record. No c/o offer No N/V/D No abd pain day 4 of chemo Tolerating well. continue present plan Prbc today. Problem Qualifiers (1) Hypertension: Qualified Codes: I10 - Essential (primary) hypertension Amina Castellanos May 27, 2017 09:50 April Fonseca MD May 27, 2017 23:30
[2017-05-27] MEDS: CARVEDILOL 3.125 MG TAB PO SCH (09:53)
[2017-05-27] MEDS: DOCUSATE SODIUM 100 MG CAP PO SCH (09:53)
[2017-05-27] MEDS: NYSTAT/DIPHENHY/LIDO MOUTHWASH (Adult) 120ML SWISH-SWAL SCH ×4 (09:53→20:12)
[2017-05-27] MEDS: PANTOPRAZOLE SOD 40 MG DELAYED RELEASE TAB PO SCH (09:54)
[2017-05-27] MEDS: amLODIPine BESYLATE 5 MG TAB PO SCH (09:54)
[2017-05-27] MEDS: HYDROCHLOROTHIAZIDE 25 MG TAB PO SCH (09:54)
[2017-05-27] MEDS: LOSARTAN 50 MG TAB PO SCH (09:54)
[2017-05-27] MEDS: ACETAMINOPHEN 325 MG TAB PO PRN (14:01)
[2017-05-27] MEDS: DEXAMETHASONE INJ 20 MG in SODIUM CHLORIDE 0.9% INJ 50 ML IV SCH (16:58)
[2017-05-27] MEDS: GRANISETRON HCL 1 MG/ML VIAL IV PUSH SCH (16:59)
[2017-05-27] MEDS: CLADRIBINE IV SCH (18:28)
[2017-05-27] MEDS: SODIUM CHLORID 0.9% IV SCH ×2 (18:28→20:50)
[2017-05-27] MEDS: CYTARABINE IV SCH (20:50)
[2017-05-27] MEDS: FILGRASTIM 300 MCG/ML VIAL SQ SCH (20:57)
[2017-05-28] VITALS (9 sets, daily range): BP systolic 102–135; BP diastolic 57–85; PULSE 55–88; RESP 16–18; TEMP 97.7–98.3; O2SAT 95–100
[2017-05-28 06:31] LABS: HEMATOCRIT 27.5 % (35.0-46.0); MEAN CELL VOLUME 88.7 FL (80.0-100.0); MEAN CORPUSCULAR HEMOGLOBIN 29.2 PG (27.0-34.0); MEAN CORPUSCULAR HGB CONC 32.9 % (32.0-36.0); MEAN PLATELET VOLUME 10.8 FL (7.0-11.0); PLATELET COUNT 118 TH/MM3 (150-450); RED CELL DISTRIBUTION WIDTH 20.3 % (11.6-17.2); WHITE BLOOD COUNT 0.6 TH/MM3 (4.0-11.0)
[2017-05-28 06:57] LABS: ALBUMIN 3.1 GM/DL (3.4-5.0); ALT (GPT) 40 U/L (10-53); AST (GOT) 11 U/L (15-37); BICARBONATE 29.4 MEQ/L (21.0-32.0); BLOOD UREA NITROGEN 15 MG/DL (7-18); CALCIUM 8.2 MG/DL (8.5-10.1); CHLORIDE 108 MEQ/L (98-107); CREATININE 0.53 MG/DL (0.50-1.00); GLOMERULAR FILTRATION RATE 118 ML/MIN (>89); GLUCOSE,RANDOM 144 MG/DL (74-106); SODIUM (NA) 142 MEQ/L (136-145)
[2017-05-28 07:00] LABS: ALKALINE PHOSPHATASE 52 U/L (45-117); TOTAL BILIRUBIN ADULT 1.7 MG/DL (0.2-1.0); TOTAL PROTEIN 5.9 GM/DL (6.4-8.2)
[2017-05-28 07:52] LABS: BANDS 9 % (0-6); BLASTS 5 % (0-0); LYMPHOCYTES 9 % (9-44); MONOCYTES 2 % (0-8); MYELOCYTES 2 % (0-0); NEUTROPHIL # MANUAL DIFF 0.5 TH/MM3 (1.8-7.7); POLYS (SEG NEUTROPHILS) 73 % (16-70)
--- NOTE | 2017-05-28 09:10 | PD.ONC.PN ---
Subjective Subjective Remarks Afebrile overnight. Patient feeling good. She states she slept well overnight. Tolerating chemotherapy. No complaints. Objective Data Date Time Temp Pulse Resp B/P (MAP) Pulse Ox O2 Delivery O2 Flow Rate FiO2 05/28/17 06:05 97.9 70 16 128/85 (99) 100 05/28/17 01:00 76 05/28/17 01:00 98.2 55 16 116/62 (80) 95 05/27/17 20:09 97.9 63 18 117/69 (85) 97 05/27/17 16:00 97.9 72 18 110/59 (76) 99 05/27/17 15:04 97.7 59 18 100/52 99 05/27/17 14:47 97.9 72 18 110/59 99 05/27/17 12:00 97.9 62 18 108/67 (81) 98 05/27/17 09:49 98.4 83 18 123/75 (91) 97 05/28/17 05/28/17 05/28/17 06:59 14:59 22:59 Intake Total 600 ml Output Total 2100 ml Balance -1500 ml Result Diagram: 05/28/17 0550 05/28/17 0550 Laboratory Results Laboratory Tests Test 05/28/17 05:50 White Blood Count 0.6 TH/MM3 Red Blood Count 3.10 MIL/MM3 Hemoglobin 9.0 GM/DL Hematocrit 27.5 % Mean Corpuscular Volume 88.7 FL Mean Corpuscular Hemoglobin 29.2 PG Mean Corpuscular Hemoglobin Concent 32.9 % Red Cell Distribution Width 20.3 % Platelet Count 118 TH/MM3 Mean Platelet Volume 10.8 FL CBC Comment AUTO DIFF Differential Total Cells Counted 44 Neutrophils % (Manual) 73 % Band Neutrophils % 9 % Lymphocytes % 9 % Monocytes % 2 % Neutrophils # (Manual) 0.5 TH/MM3 Myelocytes 2 % Differential Comment FINAL DIFF MANUAL Blastocytes 5 % Platelet Estimate LOW Platelet Morphology Comment ENLARGED Blood Urea Nitrogen 15 MG/DL Creatinine 0.53 MG/DL Random Glucose 144 MG/DL Total Protein 5.9 GM/DL Albumin 3.1 GM/DL Calcium Level 8.2 MG/DL Alkaline Phosphatase 52 U/L Aspartate Amino Transf (AST/SGOT) 11 U/L Alanine Aminotransferase (ALT/SGPT) 40 U/L Total Bilirubin 1.7 MG/DL Sodium Level 142 MEQ/L Potassium Level 4.0 MEQ/L Chloride Level 108 MEQ/L Carbon Dioxide Level 29.4 MEQ/L Anion Gap 5 MEQ/L Estimat Glomerular Filtration Rate 118 ML/MIN Administered Medications Medications (Trade) Dose Ordered Sig/Zeynep Route PRN Reason Start Time Stop Time Status Last Admin Dose Admin Carvedilol (Coreg) 3.125 mg DAILY PO 05/24/17 09:00 05/27/17 09:53 Amlodipine Besylate (Norvasc) 5 mg DAILY PO 05/24/17 09:00 05/27/17 09:54 Losartan Potassium (Cozaar) 100 mg DAILY PO 05/24/17 09:00 05/27/17 09:54 Hydrochlorothiazide (Hydrodiuril) 25 mg DAILY PO 05/24/17 09:00 05/27/17 09:54 Acetaminophen (Tylenol) 650 mg Q4H PRN PO fever>100.4 05/24/17 08:45 05/27/17 14:01 Oxycodone HCl (Roxicodone) 5 mg Q4H PRN PO pain>5 05/24/17 12:15 05/24/17 20:34 Granisetron HCl (Kytril Inj) 1 mg DAILY@1530 IV PUSH 05/24/17 15:30 05/28/17 15:31 05/27/17 16:59 Dexamethasone Sodium Phosphate 20 mg/Sodium Chloride 55 ml @ 330 mls/hr DAILY@1530 IV 05/24/17 15:30 05/28/17 15:39 05/27/17 16:58 Cladribine 9.2 mg/ Sodium Chloride 509.2 ml @ 254.6 mls/ hr DAILY@1600 IV 05/24/17 16:00 05/28/17 17:59 05/27/17 18:28 Cytarabine 3680 mg/Sodium Chloride 500 ml @ 125 mls/hr DAILY@1800 IV 05/24/17 18:00 05/28/17 21:59 05/27/17 20:50 Filgrastim (Neupogen Inj) 300 mcg DAILY@2200 SQ 05/24/17 22:00 05/28/17 22:01 05/27/17 20:57 Multi-Ingredient Mouthwash/Gargle (Magic Mouthwash Adult Liq) 5 ml QID SWISH-SWAL 05/24/17 13:00 05/27/17 20:12 Pantoprazole Sodium (Protonix) 40 mg DAILY PO 05/25/17 09:15 05/29/17 09:01 05/27/17 09:54 Docusate Sodium (Colace) 100 mg DAILY PO 05/26/17 11:00 05/27/17 09:53 Magnesium Hydroxide (Milk Of Magnesia Liq) 30 ml DAILY PRN PO MILD - MODERATE CONSTIPATION 05/26/17 11:00 05/26/17 11:22 Objective Remarks GENERAL: Middle aged female, sitting up in bed in [facility]. SKIN: Warm and dry. HEAD: Normocephalic. EYES: No injection or drainage. NECK: Supple, trachea midline. CARDIOVASCULAR: Regular rate and rhythm RESPIRATORY: clear to auscultation all lung malhotra GASTROINTESTINAL: Abdomen soft, non-tender, nondistended. EXTREMITIES: No cyanosis NEUROLOGICAL: awake and alert, normal speech. moving all extremities. 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 tolerated D1 05/25: D2. monitor CBC, bilirubin. 05/26: D3. Tolerating chemotherapy. Add on daily stool softener with prn milk of magnesia for constipation. Monitor CBC. 05/27: D4. Continue chemotherapy. Transfuse 1 unit irradiated packed red blood cells for hemoglobin of 7.5 as her counts are trending down. Monitor CBC, CMP. .19: D5. tolerating chemo. no transfusion needed at present. (2) Hypertension ICD Codes: I10 - Essential (primary) hypertension Status: Chronic Plan: --on home medications. -- Stable Assessment 57y/o female admitted for salvage chemotherapy for relapse of acute myeloid leukemia, FLT3 positive. h/o Rheumatoid arthritis. Anxiety disorder. COPD. Depression. Hypercholesterolemia. Hypertension. Irregular heart beat. History of AML (brought forward from initial consult for continuity of care): diagnosed with acute myeloid leukemia in August of last year. She had a normal chromosome 46 XX, but the FLT3 was positive and NPM1 was negative. She was treated with induction chemotherapy with cytarabine and daunorubicin 7+3, which failed to put her into remission. Subsequently she was treated with CLAG chemotherapy with Rydapt and she finally went into remission. The patient subsequently had first dose of high dose Zuleyka-C consolidation chemotherapy last November. She was referred to [facility] for bone marrow transplant. Prior to the transplant, she had a repeat bone marrow biopsy in February. This showed that she had relapsed. It was recommended for the patient to have Dacogen chemotherapy for two cycles and repeat the bone marrow biopsy. The patient had the repeat bone marrow biopsy on May 14 which showed persistent leukemia with 37% blasts. The chromosomes came back normal at 46 XX but the FLT3 is still positive Attending Statement The exam, history, and the medical decision-making described in the above note were completed with the assistance of the mid-level provider. I reviewed and agree with the findings presented. I attest that I had a [id number] encounter with the patient on the same day, and personally performed and documented my assessment and findings in the medical record. No c/o susu no more constipation. No N/V No fever/chills No rash/ itching day 5 of chemo. Last day of chemo. start Rydapt on wednesday (Day8) for 2 weeks I will be OOT starting tomorrow and will be back on 06/07. Dr Levin will follow the pt in my absence. D/W Pt Problem Qualifiers (1) Hypertension: Qualified Codes: I10 - Essential (primary) hypertension Julianna Mcdaniel May 28, 2017 09:10 April Fonseca MD May 28, 2017 10:08
[2017-05-28] MEDS: NYSTAT/DIPHENHY/LIDO MOUTHWASH (Adult) 120ML SWISH-SWAL SCH ×4 (09:39→21:53)
[2017-05-28] MEDS: PANTOPRAZOLE SOD 40 MG DELAYED RELEASE TAB PO SCH (09:41)
[2017-05-28] MEDS: LOSARTAN 50 MG TAB PO SCH (09:41)
[2017-05-28] MEDS: HYDROCHLOROTHIAZIDE 25 MG TAB PO SCH (09:42)
[2017-05-28] MEDS: CARVEDILOL 3.125 MG TAB PO SCH (09:42)
[2017-05-28] MEDS: amLODIPine BESYLATE 5 MG TAB PO SCH (09:42)
[2017-05-28] MEDS: DOCUSATE SODIUM 100 MG CAP PO SCH (09:43)
[2017-05-28] MEDS: DEXAMETHASONE INJ 20 MG in SODIUM CHLORIDE 0.9% INJ 50 ML IV SCH (17:27)
[2017-05-28] MEDS: SODIUM CHLORIDE 0.9% FLUSH 10 ML FLUSH IV FLUSH PRN (17:28)
[2017-05-28] MEDS: GRANISETRON HCL 1 MG/ML VIAL IV PUSH SCH (17:28)
[2017-05-28] MEDS: SODIUM CHLORID 0.9% IV SCH ×2 (18:37→21:52)
[2017-05-28] MEDS: CLADRIBINE IV SCH (18:37)
[2017-05-28] MEDS: CYTARABINE IV SCH (21:52)
[2017-05-28] MEDS: FILGRASTIM 300 MCG/ML VIAL SQ SCH (23:27)
[2017-05-29] VITALS (10 sets, daily range): BP systolic 101–144; BP diastolic 56–91; PULSE 56–79; RESP 16–18; TEMP 97.9–98.8; O2SAT 97–100
[2017-05-29 05:13] LABS: AUTOMATED NEUTROPHIL # 0.1 TH/MM3 (1.8-7.7); EOSINOPHIL % 11.9 % (0.0-4.0); HEMATOCRIT 23.3 % (35.0-46.0); HEMOGLOBIN 7.8 GM/DL (11.6-15.3); LYMPH % 18.2 % (9.0-44.0); MEAN CELL VOLUME 87.5 FL (80.0-100.0); MEAN CORPUSCULAR HEMOGLOBIN 29.2 PG (27.0-34.0); MEAN CORPUSCULAR HGB CONC 33.4 % (32.0-36.0); MEAN PLATELET VOLUME 10.5 FL (7.0-11.0); MONO % 41.9 % (0.0-8.0); MONOCYTE # 0.1 TH/MM3 (0-0.9); PLATELET COUNT 78 TH/MM3 (150-450); RED BLOOD COUNT 2.66 MIL/MM3 (4.00-5.30); RED CELL DISTRIBUTION WIDTH 19.4 % (11.6-17.2); WHITE BLOOD COUNT 0.2 TH/MM3 (4.0-11.0)
[2017-05-29 05:30] LABS: ALT (GPT) 37 U/L (10-53); AST (GOT) 10 U/L (15-37); BICARBONATE 30.3 MEQ/L (21.0-32.0); BLOOD UREA NITROGEN 14 MG/DL (7-18); CALCIUM 8.3 MG/DL (8.5-10.1); CHLORIDE 106 MEQ/L (98-107); CREATININE 0.57 MG/DL (0.50-1.00); GLOMERULAR FILTRATION RATE 109 ML/MIN (>89); GLUCOSE,RANDOM 198 MG/DL (74-106); SODIUM (NA) 142 MEQ/L (136-145)
[2017-05-29 05:32] LABS: ALKALINE PHOSPHATASE 49 U/L (45-117); TOTAL BILIRUBIN ADULT 1.1 MG/DL (0.2-1.0); TOTAL PROTEIN 5.6 GM/DL (6.4-8.2)
[2017-05-29 07:20] LABS: BANDS 10 % (0-6); LYMPHOCYTES 20 % (9-44); MONOCYTES 5 % (0-8); POLYS (SEG NEUTROPHILS) 65 % (16-70)
[2017-05-29 07:21] LABS: NEUTROPHIL # MANUAL DIFF 0.2 TH/MM3 (1.8-7.7); OVALOCYTES 1+ (NORMAL)
[2017-05-29] MEDS ORDERED: SODIUM CHLOR 0.9% 250 ML INJ 250 ML IV ONE (07:45)
[2017-05-29] MEDS: NYSTAT/DIPHENHY/LIDO MOUTHWASH (Adult) 120ML SWISH-SWAL SCH ×4 (08:58→20:06)
[2017-05-29] MEDS: HYDROCHLOROTHIAZIDE 25 MG TAB PO SCH (08:59)
[2017-05-29] MEDS: LOSARTAN 50 MG TAB PO SCH (08:59)
[2017-05-29] MEDS: amLODIPine BESYLATE 5 MG TAB PO SCH (08:59)
[2017-05-29] MEDS: CARVEDILOL 3.125 MG TAB PO SCH (09:00)
[2017-05-29] MEDS: PANTOPRAZOLE SOD 40 MG DELAYED RELEASE TAB PO SCH (09:00)
[2017-05-29] MEDS: DOCUSATE SODIUM 100 MG CAP PO SCH (09:00)
[2017-05-29] MEDS: SODIUM CHLORIDE 0.9% FLUSH 10 ML FLUSH IV FLUSH PRN (09:00)
--- NOTE | 2017-05-29 09:08 | PD.ONC.PN ---
Subjective Subjective Remarks Afebrile overnight. Patient finished chemotherapy yesterday and has had no adverse effects. She denies any fever or chills. Eating well. No diarrhea. Objective Data Date Time Temp Pulse Resp B/P (MAP) Pulse Ox O2 Delivery O2 Flow Rate FiO2 05/29/17 04:46 98.0 63 16 115/69 (84) 97 05/28/17 23:30 98.1 70 16 102/57 (72) 97 05/28/17 20:07 63 05/28/17 20:00 98.1 75 18 135/78 (97) 98 05/28/17 17:45 98.3 73 18 110/74 (86) 99 05/28/17 13:05 97.9 66 16 126/79 (95) 99 05/28/17 10:46 88 05/29/17 05/29/17 05/29/17 07:00 15:00 23:00 Intake Total 980 ml Balance 980 ml Result Diagram: 05/29/17 0450 05/29/17 0450 Laboratory Results Laboratory Tests Test 05/29/17 04:50 White Blood Count 0.2 TH/MM3 Red Blood Count 2.66 MIL/MM3 Hemoglobin 7.8 GM/DL Hematocrit 23.3 % Mean Corpuscular Volume 87.5 FL Mean Corpuscular Hemoglobin 29.2 PG Mean Corpuscular Hemoglobin Concent 33.4 % Red Cell Distribution Width 19.4 % Platelet Count 78 TH/MM3 Mean Platelet Volume 10.5 FL Neutrophils (%) (Auto) 28.0 % Lymphocytes (%) (Auto) 18.2 % Monocytes (%) (Auto) 41.9 % Eosinophils (%) (Auto) 11.9 % Basophils (%) (Auto) 0.0 % Neutrophils # (Auto) 0.1 TH/MM3 Lymphocytes # (Auto) 0.0 TH/MM3 Monocytes # (Auto) 0.1 TH/MM3 Eosinophils # (Auto) 0.0 TH/MM3 Basophils # (Auto) 0.0 TH/MM3 CBC Comment AUTO DIFF Differential Total Cells Counted 20 Neutrophils % (Manual) 65 % Band Neutrophils % 10 % Lymphocytes % 20 % Monocytes % 5 % Neutrophils # (Manual) 0.2 TH/MM3 Differential Comment FINAL DIFF MANUAL Platelet Estimate LOW Platelet Morphology Comment NORMAL Ovalocytes 1+ Blood Urea Nitrogen 14 MG/DL Creatinine 0.57 MG/DL Random Glucose 198 MG/DL Total Protein 5.6 GM/DL Albumin 3.0 GM/DL Calcium Level 8.3 MG/DL Alkaline Phosphatase 49 U/L Aspartate Amino Transf (AST/SGOT) 10 U/L Alanine Aminotransferase (ALT/SGPT) 37 U/L Total Bilirubin 1.1 MG/DL Sodium Level 142 MEQ/L Potassium Level 4.3 MEQ/L Chloride Level 106 MEQ/L Carbon Dioxide Level 30.3 MEQ/L Anion Gap 6 MEQ/L Estimat Glomerular Filtration Rate 109 ML/MIN Administered Medications Medications (Trade) Dose Ordered Sig/Zeynep Route PRN Reason Start Time Stop Time Status Last Admin Dose Admin Carvedilol (Coreg) 3.125 mg DAILY PO 05/24/17 09:00 05/28/17 09:42 Amlodipine Besylate (Norvasc) 5 mg DAILY PO 05/24/17 09:00 05/28/17 09:42 Losartan Potassium (Cozaar) 100 mg DAILY PO 05/24/17 09:00 05/28/17 09:41 Hydrochlorothiazide (Hydrodiuril) 25 mg DAILY PO 05/24/17 09:00 05/28/17 09:42 Acetaminophen (Tylenol) 650 mg Q4H PRN PO fever>100.4 05/24/17 08:45 05/27/17 14:01 Oxycodone HCl (Roxicodone) 5 mg Q4H PRN PO pain>5 05/24/17 12:15 05/24/17 20:34 Multi-Ingredient Mouthwash/Gargle (Magic Mouthwash Adult Liq) 5 ml QID SWISH-SWAL 05/24/17 13:00 05/28/17 21:53 Docusate Sodium (Colace) 100 mg DAILY PO 05/26/17 11:00 05/28/17 09:43 Magnesium Hydroxide (Milk Of Magnesia Liq) 30 ml DAILY PRN PO MILD - MODERATE CONSTIPATION 05/26/17 11:00 05/26/17 11:22 Sodium Chloride (NS Flush) 5 ml UNSCH PRN IV FLUSH SEE PROTOCOL TABLE 05/28/17 14:00 05/28/17 17:28 Heparin Sodium (Porcine) (Heparin Central Flush) 250 units UNSCH PRN IV FLUSH SEE PROTOCOL TABLE 05/28/17 14:00 05/29/17 04:51 Objective Remarks GENERAL: Middle aged female, sitting up in bed in nad. SKIN: Warm and dry. port in place, right chest wall. HEAD: Normocephalic. EYES: No injection or drainage. NECK: Supple, trachea midline. CARDIOVASCULAR: Regular rate and rhythm RESPIRATORY: Breath sounds equal bilaterally. No accessory muscle use. GASTROINTESTINAL: Abdomen soft, non-tender, nondistended. EXTREMITIES: No cyanosis, or edema. NEUROLOGICAL: awake and alert, normal speech. 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 tolerated D1 05/25: D2. monitor CBC, bilirubin. 05/26: D3. Tolerating chemotherapy. Add on daily stool softener with prn milk of magnesia for constipation. Monitor CBC. 05/27: D4. Continue chemotherapy. Transfuse 1 unit irradiated packed red blood cells for hemoglobin of 7.5 as her counts are trending down. Monitor CBC, CMP. .: D5. tolerating chemo. no transfusion needed at present. 05/29: D6 chemo complete yesterday. give 2 units pRBC today (2) Hypertension ICD Codes: I10 - Essential (primary) hypertension Status: Chronic Plan: --on home medications. -- Stable Assessment 57y/o female admitted for salvage chemotherapy for relapse of acute myeloid leukemia, FLT3 positive. h/o Rheumatoid arthritis. Anxiety disorder. COPD. Depression. Hypercholesterolemia. Hypertension. Irregular heart beat. History of AML (brought forward from initial consult for continuity of care): diagnosed with acute myeloid leukemia in August of last year. She had a normal chromosome 46 XX, but the FLT3 was positive and NPM1 was negative. She was treated with induction chemotherapy with cytarabine and daunorubicin 7+3, which failed to put her into remission. Subsequently she was treated with CLAG chemotherapy with Rydapt and she finally went into remission. The patient subsequently had first dose of high dose Zuleyka-C consolidation chemotherapy last November. She was referred to [facility] [place] for bone marrow transplant. Prior to the transplant, she had a repeat bone marrow biopsy in February. This showed that she had relapsed. It was recommended for the patient to have Dacogen chemotherapy for two cycles and repeat the bone marrow biopsy. The patient had the repeat bone marrow biopsy on May 14 which showed persistent leukemia with 37% blasts. The chromosomes came back normal at 46 XX but the FLT3 is still positive Plan 1. monitor CBC, CMP 2. monitor closely for fever. 3. give 2 units pRBC Attending Statement The exam, history, and the medical decision-making described in the above note were completed with the assistance of the mid-level provider. I reviewed and agree with the findings presented. I attest that I had a [id number] encounter with the patient on the same day, and personally performed and documented my assessment and findings in the medical record. 57 yoF with AML admiteed for CLAG-M chemotherapy for reinduction after relapse. She is doing well, has completed chemothearpy and tolerated well. Continue to monitor counts transfuse as needed. Will montior vital signs and temperature. Afebrile currently. Problem Qualifiers (1) Hypertension: Qualified Codes: I10 - Essential (primary) hypertension Julianna Mcdaniel May 29, 2017 09:08 Valeria Emmanuel MD May 29, 2017 12:33
[2017-05-29] MEDS: ACETAMINOPHEN 325 MG TAB PO PRN ×3 (11:34→16:09)
[2017-05-29] MEDS: diphenhydrAMINE HCL 25 MG CAP PO PRN ×2 (11:34→16:09)
[2017-05-30] VITALS (7 sets, daily range): BP systolic 92–121; BP diastolic 51–80; PULSE 57–96; RESP 16; TEMP 97.4–99; O2SAT 96–99
[2017-05-30 05:30] LABS: HEMOGLOBIN 9.2 GM/DL (11.6-15.3); MEAN CORPUSCULAR HEMOGLOBIN 29.4 PG (27.0-34.0); MEAN CORPUSCULAR HGB CONC 34.2 % (32.0-36.0); MEAN PLATELET VOLUME 10.3 FL (7.0-11.0); PLATELET COUNT 45 TH/MM3 (150-450); RED BLOOD COUNT 3.14 MIL/MM3 (4.00-5.30); WHITE BLOOD COUNT 0.1 TH/MM3 (4.0-11.0)
[2017-05-30 05:46] LABS: ALBUMIN 2.9 GM/DL (3.4-5.0); AST (GOT) 8 U/L (15-37); BICARBONATE 31.4 MEQ/L (21.0-32.0); BLOOD UREA NITROGEN 19 MG/DL (7-18); CALCIUM 8.2 MG/DL (8.5-10.1); CHLORIDE 103 MEQ/L (98-107); CREATININE 0.55 MG/DL (0.50-1.00); GLOMERULAR FILTRATION RATE 113 ML/MIN (>89); GLUCOSE,RANDOM 107 MG/DL (74-106); SODIUM (NA) 140 MEQ/L (136-145)
[2017-05-30 05:48] LABS: ALT (GPT) 35 U/L (10-53)
[2017-05-30 05:50] LABS: ALKALINE PHOSPHATASE 46 U/L (45-117); TOTAL BILIRUBIN ADULT 3.5 MG/DL (0.2-1.0); TOTAL PROTEIN 5.4 GM/DL (6.4-8.2)
[2017-05-30] MEDS: DOCUSATE SODIUM 100 MG CAP PO SCH (08:30)
[2017-05-30] MEDS: LOSARTAN 50 MG TAB PO SCH (08:30)
[2017-05-30] MEDS: NYSTAT/DIPHENHY/LIDO MOUTHWASH (Adult) 120ML SWISH-SWAL SCH ×4 (08:30→20:43)
[2017-05-30] MEDS: HYDROCHLOROTHIAZIDE 25 MG TAB PO SCH (08:30)
[2017-05-30] MEDS: amLODIPine BESYLATE 5 MG TAB PO SCH (08:30)
--- NOTE | 2017-05-30 09:12 | PD.ONC.PN ---
Subjective Subjective Remarks Afebrile overnight. Patient states she is feeling bored. Denies abdominal pain. Still having mouth pain d/t sores. Magic mouthwash helps. No chills or fever. Objective Data Date Time Temp Pulse Resp B/P (MAP) Pulse Ox O2 Delivery O2 Flow Rate FiO2 05/30/17 08:30 97.4 87 16 121/80 (94) 96 05/30/17 05:02 97.9 57 16 105/62 (76) 98 05/30/17 00:20 98.2 57 16 104/60 (75) 99 05/29/17 21:25 59 05/29/17 20:00 98.1 69 16 144/83 (103) 99 05/29/17 17:52 97.9 79 16 123/70 98 05/29/17 17:25 97.9 61 18 136/83 99 05/29/17 16:16 98.8 62 16 124/82 (96) 100 05/29/17 13:02 98.5 56 16 111/63 99 05/29/17 12:39 98.4 62 18 101/56 100 05/29/17 11:36 98.7 59 16 106/63 (77) 98 05/30/17 05/30/17 05/30/17 07:00 15:00 23:00 Intake Total 480 ml Balance 480 ml Result Diagram: 05/30/17 0430 05/30/17 0450 Laboratory Results Laboratory Tests Test 05/30/17 04:30 05/30/17 04:50 White Blood Count 0.1 TH/MM3 Red Blood Count 3.14 MIL/MM3 Hemoglobin 9.2 GM/DL Hematocrit 27.0 % Mean Corpuscular Volume 86.0 FL Mean Corpuscular Hemoglobin 29.4 PG Mean Corpuscular Hemoglobin Concent 34.2 % Red Cell Distribution Width 19.0 % Platelet Count 45 TH/MM3 Mean Platelet Volume 10.3 FL CBC Comment AUTO DIFF Blood Urea Nitrogen 19 MG/DL Creatinine 0.55 MG/DL Random Glucose 107 MG/DL Total Protein 5.4 GM/DL Albumin 2.9 GM/DL Calcium Level 8.2 MG/DL Alkaline Phosphatase 46 U/L Aspartate Amino Transf (AST/SGOT) 8 U/L Alanine Aminotransferase (ALT/SGPT) 35 U/L Total Bilirubin 3.5 MG/DL Sodium Level 140 MEQ/L Potassium Level 3.8 MEQ/L Chloride Level 103 MEQ/L Carbon Dioxide Level 31.4 MEQ/L Anion Gap 6 MEQ/L Estimat Glomerular Filtration Rate 113 ML/MIN Administered Medications Medications (Trade) Dose Ordered Sig/Zeynep Route PRN Reason Start Time Stop Time Status Last Admin Dose Admin Carvedilol (Coreg) 3.125 mg DAILY PO 05/24/17 09:00 Future Hold 05/29/17 09:00 Amlodipine Besylate (Norvasc) 5 mg DAILY PO 05/24/17 09:00 05/30/17 08:30 Losartan Potassium (Cozaar) 100 mg DAILY PO 05/24/17 09:00 05/30/17 08:30 Hydrochlorothiazide (Hydrodiuril) 25 mg DAILY PO 05/24/17 09:00 05/30/17 08:30 Acetaminophen (Tylenol) 650 mg Q4H PRN PO fever>100.4 05/24/17 08:45 05/27/17 14:01 Oxycodone HCl (Roxicodone) 5 mg Q4H PRN PO pain>5 05/24/17 12:15 05/24/17 20:34 Multi-Ingredient Mouthwash/Gargle (Magic Mouthwash Adult Liq) 5 ml QID SWISH-SWAL 05/24/17 13:00 05/30/17 08:30 Docusate Sodium (Colace) 100 mg DAILY PO 05/26/17 11:00 05/30/17 08:30 Magnesium Hydroxide (Milk Of Magnesia Liq) 30 ml DAILY PRN PO MILD - MODERATE CONSTIPATION 05/26/17 11:00 05/26/17 11:22 Sodium Chloride (NS Flush) 5 ml UNSCH PRN IV FLUSH SEE PROTOCOL TABLE 05/28/17 14:00 05/29/17 09:00 Heparin Sodium (Porcine) (Heparin Central Flush) 250 units UNSCH PRN IV FLUSH SEE PROTOCOL TABLE 05/28/17 14:00 05/29/17 04:51 Objective Remarks GENERAL: Middle aged female, sitting up in chair in nad. SKIN: Warm and dry. no rash. port in place, right chest wall. HEAD: Normocephalic. EYES: No injection or drainage. NECK: Supple, trachea midline. CARDIOVASCULAR: Regular rate and rhythm. a few extra beats heard. RESPIRATORY: Breath sounds equal bilaterally. No accessory muscle use. GASTROINTESTINAL: Abdomen soft, non-tender, nondistended. EXTREMITIES: No cyanosis NEUROLOGICAL: awake and alert, normal speech. 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 tolerated D1 05/25: D2. monitor CBC, bilirubin. 05/26: D3. Tolerating chemotherapy. Add on daily stool softener with prn milk of magnesia for constipation. Monitor CBC. 05/27: D4. Continue chemotherapy. Transfuse 1 unit irradiated packed red blood cells for hemoglobin of 7.5 as her counts are trending down. Monitor CBC, CMP. .: D5. tolerating chemo. no transfusion needed at present. 05/29: D6. chemo complete yesterday. give 2 units pRBC today 05/30. D7. no blood transfusion. monitor. (2) Hypertension ICD Codes: I10 - Essential (primary) hypertension Status: Chronic Plan: --on home medications. -- Stable Assessment 57y/o female admitted for salvage chemotherapy for relapse of acute myeloid leukemia, FLT3 positive. h/o Rheumatoid arthritis. Anxiety disorder. COPD. Depression. Hypercholesterolemia. Hypertension. Irregular heart beat. History of AML (brought forward from initial consult for continuity of care): diagnosed with acute myeloid leukemia in August of last year. She had a normal chromosome 46 XX, but the FLT3 was positive and NPM1 was negative. She was treated with induction chemotherapy with cytarabine and daunorubicin 7+3, which failed to put her into remission. Subsequently she was treated with CLAG chemotherapy with Rydapt and she finally went into remission. The patient subsequently had first dose of high dose Zuleyka-C consolidation chemotherapy last November. She was referred to [facility] [place] for bone marrow transplant. Prior to the transplant, she had a repeat bone marrow biopsy in February. This showed that she had relapsed. It was recommended for the patient to have Dacogen chemotherapy for two cycles and repeat the bone marrow biopsy. The patient had the repeat bone marrow biopsy on May 14 which showed persistent leukemia with 37% blasts. The chromosomes came back normal at 46 XX but the FLT3 is still positive Plan 1. monitor CBC, CMP 2. hold Coreg. 3. obtain EKG for extra beats heard on exam. Attending Statement The exam, history, and the medical decision-making described in the above note were completed with the assistance of the mid-level provider. I reviewed and agree with the findings presented. I attest that I had a [id number] encounter with the patient on the same day, and personally performed and documented my assessment and findings in the medical record. The exam, history, and the medical decision-making described in the above note were completed with the assistance of the mid-level provider. I reviewed and agree with the findings presented. I attest that I had a [id number] encounter with the patient on the same day, and personally performed and documented my assessment and findings in the medical record. 57 yoF with relapsed AML s/p reinduction with CLAG. Counts falling as expected. Labs significant for indirect bilirubinemia. Hemoglobin stable after transfusion. Will continue to trend. Possibly due to mild hemolysis after transfusion. Problem Qualifiers (1) Hypertension: Qualified Codes: I10 - Essential (primary) hypertension Julianna Mcdaniel May 30, 2017 09:12 Valeria Emmanuel MD May 30, 2017 12:54
[2017-05-30 09:55] LABS: LYMPHOCYTES 70 % (9-44); MONOCYTES 10 % (0-8); POLYS (SEG NEUTROPHILS) 20 % (16-70)
[2017-05-30 10:11] LABS: DIRECT BILIRUBIN ADULT 0.2 MG/DL (0.0-0.2); INDIRECT BILIRUBIN 3.3 MG/DL (0.0-0.8); TOTAL BILIRUBIN ADULT 3.5 MG/DL (0.2-1.0)
--- NOTE | 2017-05-30 12:39 | EKG ---
Date Performed: 05/30/2017 Time Performed: 10:45:00 PTAGE: 57 years EKG: Sinus rhythm INCOMPLETE RIGHT BUNDLE BRANCH BLOCK NONSPECIFIC ST & T-WAVE ABNORMALITY BORDERLINE ECG Since PREVIOUS TRACING , no significant change noted PREVIOUS TRACIN04/18/2017 16.46 DOCTOR: Al Rawls Interpretating Date/Time 05/30/2017 12:38:44
[2017-05-30] MEDS: MELATONIN 5 MG TAB PO PRN (20:48)
[2017-05-31] VITALS (18 sets, daily range): BP systolic 91–146; BP diastolic 52–83; PULSE 80–128; RESP 18; TEMP 98.4–102.6; O2SAT 93–99
[2017-05-31] MEDS: ONDANSETRON HCL 4 MG/2 ML VIAL IV PUSH PRN ×3 (00:17→14:24)
[2017-05-31 04:44] LABS: HEMATOCRIT 30.9 % (35.0-46.0); HEMOGLOBIN 10.5 GM/DL (11.6-15.3); MEAN CELL VOLUME 85.3 FL (80.0-100.0); MEAN CORPUSCULAR HEMOGLOBIN 28.9 PG (27.0-34.0); MEAN CORPUSCULAR HGB CONC 33.9 % (32.0-36.0); MEAN PLATELET VOLUME 11.1 FL (7.0-11.0); PLATELET COUNT 40 TH/MM3 (150-450); RED BLOOD COUNT 3.62 MIL/MM3 (4.00-5.30); RED CELL DISTRIBUTION WIDTH 19.2 % (11.6-17.2); WHITE BLOOD COUNT 0.1 TH/MM3 (4.0-11.0)
[2017-05-31 05:11] LABS: ALBUMIN 3.3 GM/DL (3.4-5.0); AST (GOT) 11 U/L (15-37); BICARBONATE 30.2 MEQ/L (21.0-32.0); BLOOD UREA NITROGEN 18 MG/DL (7-18); CALCIUM 8.6 MG/DL (8.5-10.1); CHLORIDE 98 MEQ/L (98-107); GLOMERULAR FILTRATION RATE 86 ML/MIN (>89); GLUCOSE,RANDOM 148 MG/DL (74-106); SODIUM (NA) 135 MEQ/L (136-145)
[2017-05-31 05:15] LABS: ALKALINE PHOSPHATASE 56 U/L (45-117); ALT (GPT) 40 U/L (10-53); TOTAL PROTEIN 6.4 GM/DL (6.4-8.2)
[2017-05-31 05:18] LABS: BILIRUBIN, URINE NEG (NEG); BLOOD, URINE NEG (NEG); GLUCOSE,URINE NEG (NEG); KETONE, URINE NEG (NEG); NITRITE,URINE NEG (NEG); URINE COLOR YELLOW (YELLW/STRAW); URINE LEUKOCYTE ESTERASE NEG (NEG)
[2017-05-31] MEDS ORDERED: VANCOMYCIN 1,000 MG/NS 250 ML IV SCH ×2 (05:45)
--- NOTE | 2017-05-31 05:45 | RADRPT ---
EXAM DATE/TIME: 05/31/2017 05:09 [place] COMPARISON: CHEST SINGLE AP, April 30, 2017, 8:41. INDICATIONS : Fever. MEDICAL HISTORY : Leukemia. SURGICAL HISTORY : [id number] ENCOUNTER: Initial ACUITY: 1 day PAIN SCORE: 0/10 LOCATION: Bilateral chest FINDINGS: A single view of the chest demonstrates the lungs to be symmetrically aerated without evidence of mas s, infiltrate or effusion. The cardiomediastinal contours are unremarkable. Osseous structures are intact. Right central line tip projects over the distal superior vena cava. CONCLUSION: The lungs are clear. Troy Clarke MD on May 31, 2017 at 5:43 Board Certified Radiologist. This report was verified electronically.
[2017-05-31] MEDS: ACETAMINOPHEN 325 MG TAB PO PRN ×2 (05:52→18:19)
[2017-05-31] MEDS: AZTREONAM 1,000 MG/NS 100 ML IV SCH ×6 (05:53→23:51)
[2017-05-31 07:13] LABS: LYMPHOCYTES 100 % (9-44)
[2017-05-31] MEDS: VANCOMYCIN 1,000 MG/NS 250 ML IV SCH ×4 (07:28→20:38)
[2017-05-31] MEDS: HYDROCHLOROTHIAZIDE 25 MG TAB PO SCH (08:07)
[2017-05-31] MEDS: amLODIPine BESYLATE 5 MG TAB PO SCH (08:07)
[2017-05-31] MEDS: LOSARTAN 50 MG TAB PO SCH (08:07)
[2017-05-31] MEDS: SODIUM CHLORIDE 0.9% FLUSH 10 ML FLUSH IV FLUSH PRN (08:07)
[2017-05-31] MEDS: [UNRECOGNIZED DRUG - OTHER] PO SCH ×2 (08:08→20:52)
[2017-05-31] MEDS: NYSTAT/DIPHENHY/LIDO MOUTHWASH (Adult) 120ML SWISH-SWAL SCH ×4 (08:08→20:38)
[2017-05-31] MEDS: DOCUSATE SODIUM 100 MG CAP PO SCH (08:08)
--- NOTE | 2017-05-31 09:26 | PD.ONC.PN ---
Subjective Subjective Remarks Tmax 100.4 overnight. Patient resting in bed. She vomited once this morning. She feels achy and nauseated. Has no appetite for breakfast this AM. Denies abdominal pain at present. Had abdominal pain earlier which improved after a bowel movement. Objective Data Date Time Temp Pulse Resp B/P (MAP) Pulse Ox O2 Delivery O2 Flow Rate FiO2 05/31/17 08:04 99.0 84 18 112/72 (85) 98 05/31/17 04:33 101 05/31/17 04:00 100.4 100 18 110/72 (85) 97 05/31/17 00:20 99.3 94 18 118/76 (90) 95 05/31/17 00:02 89 05/30/17 20:43 99.0 96 16 107/69 (82) 98 05/30/17 20:10 84 05/30/17 16:12 98.9 80 16 102/51 (68) 96 05/30/17 11:51 98.8 76 16 92/53 (66) 97 05/31/17 05/31/17 05/31/17 07:00 15:00 23:00 Intake Total 540 ml Output Total 100 ml Balance 440 ml Result Diagram: 05/31/17 0415 05/31/17 0415 Laboratory Results Laboratory Tests Test 05/31/17 04:15 05/31/17 04:50 White Blood Count 0.1 TH/MM3 Red Blood Count 3.62 MIL/MM3 Hemoglobin 10.5 GM/DL Hematocrit 30.9 % Mean Corpuscular Volume 85.3 FL Mean Corpuscular Hemoglobin 28.9 PG Mean Corpuscular Hemoglobin Concent 33.9 % Red Cell Distribution Width 19.2 % Platelet Count 40 TH/MM3 Mean Platelet Volume 11.1 FL CBC Comment AUTO DIFF Differential Total Cells Counted 3 Lymphocytes % 100 % Neutrophils # (Manual) 0.0 TH/MM3 Differential Comment FINAL DIFF MANUAL Platelet Estimate LOW Platelet Morphology Comment NORMAL Blood Urea Nitrogen 18 MG/DL Creatinine 0.70 MG/DL Random Glucose 148 MG/DL Total Protein 6.4 GM/DL Albumin 3.3 GM/DL Calcium Level 8.6 MG/DL Alkaline Phosphatase 56 U/L Aspartate Amino Transf (AST/SGOT) 11 U/L Alanine Aminotransferase (ALT/SGPT) 40 U/L Total Bilirubin 3.0 MG/DL Sodium Level 135 MEQ/L Potassium Level 3.9 MEQ/L Chloride Level 98 MEQ/L Carbon Dioxide Level 30.2 MEQ/L Anion Gap 7 MEQ/L Estimat Glomerular Filtration Rate 86 ML/MIN Urine Color YELLOW Urine Turbidity CLEAR Urine pH 8.0 Urine Specific [place] 1.019 Urine Protein TRACE mg/dL Urine Glucose (UA) NEG mg/dL Urine Ketones NEG mg/dL Urine Occult Blood NEG Urine Nitrite NEG Urine Bilirubin NEG Urine Urobilinogen LESS THAN 2.0 MG/DL Urine Leukocyte Esterase NEG Culture Results Microbiology Date/Time Source Procedure Growth Status 05/31/17 05:20 Blood Peripheral Aerobic Blood Culture Pending Received 05/31/17 05:20 Blood Peripheral Anaerobic Blood Culture Pending Received 05/31/17 04:15 Blood Line Aerobic Blood Culture Pending Received 05/31/17 04:15 Blood Line Anaerobic Blood Culture Pending Received 05/31/17 04:50 Urine Clean Catch Urine Culture Pending Received Imaging Studies Last 24 hours Impressions Chest X-Ray 05/31/17 0441 Signed Impressions: Service Date/Time: Wednesday, May 31, 2017 05:09 - CONCLUSION: The lungs are clear. Troy Clarke MD Administered Medications Medications (Trade) Dose Ordered Sig/Zeynep Route PRN Reason Start Time Stop Time Status Last Admin Dose Admin Amlodipine Besylate (Norvasc) 5 mg DAILY PO 05/24/17 09:00 05/31/17 08:07 Losartan Potassium (Cozaar) 100 mg DAILY PO 05/24/17 09:00 05/31/17 08:07 Ondansetron HCl (Zofran Inj) 4 mg Q6HR PRN IV PUSH nausea 05/24/17 08:30 05/31/17 08:11 Melatonin (Melatonin) 5 mg HS PRN PO insomnia 05/24/17 08:30 05/30/17 20:48 Hydrochlorothiazide (Hydrodiuril) 25 mg DAILY PO 05/24/17 09:00 05/31/17 08:07 Acetaminophen (Tylenol) 650 mg Q4H PRN PO fever>100.4 05/24/17 08:45 05/31/17 05:52 Oxycodone HCl (Roxicodone) 5 mg Q4H PRN PO pain>5 05/24/17 12:15 05/24/17 20:34 Patient Own Medication PT OWN MED: RYDAPT (MIDOSTAUR... BID PO 05/31/17 09:00 06/13/17 21:01 05/31/17 08:08 Multi-Ingredient Mouthwash/Gargle (Magic Mouthwash Adult Liq) 5 ml QID SWISH-SWAL 05/24/17 13:00 05/31/17 08:08 Docusate Sodium (Colace) 100 mg DAILY PO 05/26/17 11:00 05/30/17 08:30 Magnesium Hydroxide (Milk Of Magnesia Liq) 30 ml DAILY PRN PO MILD - MODERATE CONSTIPATION 05/26/17 11:00 05/26/17 11:22 Sodium Chloride (NS Flush) 5 ml UNSCH PRN IV FLUSH SEE PROTOCOL TABLE 05/28/17 14:00 05/31/17 08:07 Heparin Sodium (Porcine) (Heparin Central Flush) 250 units UNSCH PRN IV FLUSH SEE PROTOCOL TABLE 05/28/17 14:00 05/29/17 04:51 Aztreonam 1000 mg/ Sodium Chloride 100 ml @ 200 mls/hr Q8H IV 05/31/17 06:00 05/31/17 05:53 Vancomycin HCl 1000 mg/Sodium Chloride 250 ml @ 250 mls/hr Q12H IV 05/31/17 08:00 05/31/17 07:28 Objective Remarks GENERAL: Middle aged female, lying in bed, appears fatigued, but non-toxic. SKIN: Warm and dry. HEAD: Normocephalic. EYES: No injection or drainage. NECK: Supple, trachea midline. CARDIOVASCULAR: Regular rate and rhythm RESPIRATORY: Breath sounds equal bilaterally. No accessory muscle use. GASTROINTESTINAL: Abdomen soft, non-tender, nondistended. +TTP, RUQ EXTREMITIES: No cyanosis NEUROLOGICAL: awake and alert. normal speech. moving all extremities. Assessment/Plan Problem List: (1) Neutropenic fever ICD Codes: D70.9 - Neutropenia, unspecified; R50.81 - Fever presenting with conditions classified elsewhere Status: Acute Plan: --On Vanco + Cefepime. --BC pending --obtain CT chest for cough --obtain CT ab/pelvis for abdominal pain. 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 tolerated D1 116: D2. monitor CBC, bilirubin. 05/26: D3. Tolerating chemotherapy. Add on daily stool softener with prn milk of magnesia for constipation. Monitor CBC. 05/27: D4. Continue chemotherapy. Transfuse 1 unit irradiated packed red blood cells for hemoglobin of 7.5 as her counts are trending down. Monitor CBC, CMP. 05.28: D5. tolerating chemo. no transfusion needed at present. 05/29: D6. chemo complete yesterday. give 2 units pRBC today 05/30. D7. no blood transfusion. monitor. 05/31. D8. +fever. start Vanco/Azactam. obtain BC. obtain CT. (3) Hypertension ICD Codes: I10 - Essential (primary) hypertension Status: Chronic Plan: --on home medications. -- Stable Assessment 57y/o female admitted for salvage chemotherapy for relapse of acute myeloid leukemia, FLT3 positive. h/o Rheumatoid arthritis. Anxiety disorder. COPD. Depression. Hypercholesterolemia. Hypertension. Irregular heart beat. History of AML (brought forward from initial consult for continuity of care): diagnosed with acute myeloid leukemia in August of last year. She had a normal chromosome 46 XX, but the FLT3 was positive and NPM1 was negative. She was treated with induction chemotherapy with cytarabine and daunorubicin 7+3, which failed to put her into remission. Subsequently she was treated with CLAG chemotherapy with Rydapt and she finally went into remission. The patient subsequently had first dose of high dose Zuleyka-C consolidation chemotherapy last November. She was referred to [facility] for [facility] marrow [facility]. Prior to the transplant, she had a repeat bone marrow biopsy in February. This showed that she had relapsed. It was recommended for the patient to have Dacogen chemotherapy for two cycles and repeat the bone marrow biopsy. The patient had the repeat bone marrow biopsy on May 14 which showed persistent leukemia with 37% blasts. The chromosomes came back normal at 46 XX but the FLT3 is still positive Plan 1. continue antibiotics. 2. hold Coreg d/t hypotension 3. obtain CT Chest for neutropenic fever + cough. obtain CT ab/pelvis for abdominal pain in neutropenic fever. Attending Statement The exam, history, and the medical decision-making described in the above note were completed with the assistance of the mid-level provider. I reviewed and agree with the findings presented. I attest that I had a [id number] encounter with the patient on the same day, and personally performed and documented my assessment and findings in the medical record. Neutropenic fever, chills and rigors. Started Vancomycin and Aztreonam. Abx continue- still fevers throughout the day, cultures neg. Consult infectious disease. No localizing symptoms, bone pain with chills. s/p induction cont support during the cytopenia. Problem Qualifiers (1) Hypertension: Qualified Codes: I10 - Essential (primary) hypertension Julianna Mcdaniel May 31, 2017 09:26 Elsi Levin MD May 31, 2017 18:33
[2017-05-31] MEDS ORDERED: MEPERIDINE HCL 25 MG/ML VIAL IV PUSH ONE ×2 (09:30→18:45)
[2017-05-31] MEDS ORDERED: ACETAMINOPHEN 1000 MG/100 ML 65 ML IV ONE (10:00)
[2017-05-31] MEDS ORDERED: SODIUM CHLORID 0.9% 500 ML INJ 500 ML IV ONE (10:00)
[2017-05-31] MEDS: PROMETHAZINE INJ 25 MG/ML VIAL IV-CENTRAL PRN ×2 (10:06→20:42)
[2017-05-31] MEDS: SODIUM CHLOR 0.9% 1000 ML INJ 1,000 ML IV SCH ×2 (10:07→18:19)
[2017-05-31] MEDS ORDERED: DIATRIZOATE MEGLUM/DIATRIZOATE SOD 9 ML CUP PO ONE (11:30)
[2017-05-31] MEDS ORDERED: IOHEXOL 350 MG/ML 10 ML VIAL (for RAD DIAG) IVCONTRAST ONE (17:48)
--- NOTE | 2017-05-31 18:34 | RADRPT ---
EXAM DATE/TIME: 05/31/2017 17:30 [facility] COMPARISON: No previous studies available for comparison. INDICATIONS : Patient has history of leukemia, patient has fever. IV CONTRAST: cc Omnipaque 350 (iohexol) IV ; Cumulative dose for multiple exams. RADIATION DOSE: CTDIvol (mGy) ; Combined studies - Thorax/Abdomen/Pelvis MEDICAL HISTORY : Cardiovascular disease. Chronic obstructive pulmonary disease. Leukemia. SURGICAL HISTORY : Cholecystectomy. Hysterectomy. ENCOUNTER: Initial ACUITY: 1 day PAIN SCALE: 0/10 LOCATION: chest TECHNIQUE: Volumetric scanning of the chest was performed. Using automated exposure control and adjustment of t he mA and/or kV according to patient size, radiation dose was kept as low as reasonably achievable to obtain optimal diagnostic quality images. DICOM format image data is available electronically for review and comparison. Follow-up recommendations for detected pulmonary nodules are based at a minimum on nodule size and pa tient risk factors according to Fleischner Society Guidelines. FINDINGS: There is no focal consolidation in the lungs to suggest pneumonia. No pleural pericardial effusion. T here is no hilar, mediastinal axillary adenopathy. See abdomen CT for findings in the upper abdomen. Right [id number]-[id number] in superior vena cava. Incident al azygos vein. CONCLUSION: 1. No focal consolidation or effusion to suggest infection. No adenopathy. [id number] in superior vena cava. Jacinto Tello MD on May 31, 2017 at 18:27 Board Certified Radiologist. This report was verified electronically.
[2017-05-31] MEDS ORDERED: MEPERIDINE HCL 25 MG/ML VIAL IV PUSH PRN (18:45)
--- NOTE | 2017-05-31 20:57 | RADRPT ---
EXAM DATE/TIME: 05/31/2017 17:30 [facility] COMPARISON: CT ABDOMEN & PELVIS W CONTRAST, December 03, 2016, 14:15. INDICATIONS : Patient has history of leukemia, fever. IV CONTRAST: 80 cc Omnipaque 350 (iohexol) IV ; Cumulative dose for multiple exams. ORAL CONTRAST: No oral contrast ingested. RADIATION DOSE: 5.64 CTDIvol (mGy) ; Combined studies - Thorax/Abdomen/Pelvis MEDICAL HISTORY : Cardiovascular disease. Chronic obstructive pulmonary disease. Leukemia. SURGICAL HISTORY : Cholecystectomy. Hysterectomy. ENCOUNTER: Initial ACUITY: 1 day PAIN SCALE: 0/10 LOCATION: abdomen TECHNIQUE: Volumetric scanning of the abdomen and pelvis was performed. Using automated exposure control and ad justment of the mA and/or kV according to patient size, radiation dose was kept as low as reasonably achievable to obtain optimal diagnostic quality images. DICOM format image data is available electro nically for review and comparison. FINDINGS: LOWER LUNGS: The visualized lower lungs are clear. LIVER: Homogeneous, but decreased density without lesion. There is no dilation of the biliary tree. Patient is status post cholecystectomy. SPLEEN: Normal size without lesion. PANCREAS: Diffuse pancreatic atrophy/fatty infiltration, unchanged. KIDNEYS: Normal in size and shape. There is no mass, stone or hydronephrosis. Large, 7.6 cm cyst laterally in the left kidney. ADRENAL GLANDS: Within normal limits. VASCULAR: There is no aortic aneurysm. BOWEL/MESENTERY: The stomach, small bowel, and colon demonstrate no acute abnormality. There is no free intraperitone al air or fluid. ABDOMINAL WALL: Within normal limits. RETROPERITONEUM: There is no lymphadenopathy. BLADDER: No wall thickening or mass. REPRODUCTIVE: Within normal limits. INGUINAL: There is no lymphadenopathy or hernia. MUSCULOSKELETAL: Within normal limits for patient age. CONCLUSION: 1. Diffuse hepatic fatty infiltration. 2. Similarly, diffuse fatty infiltration/atrophy of the pancreas. 3. 7.6 cm cyst laterally in the left renal cortex. 4. No acute intraperitoneal or pelvic process to explain current clinical symptoms. No significant ch codie from prior. Cristo Hughes MD on May 31, 2017 at 20:46 Board Certified Radiologist. This report was verified electronically.
[2017-06-01] VITALS (33 sets, daily range): BP systolic 95–122; BP diastolic 59–76; PULSE 76–100; RESP 16–20; TEMP 98.3–99.8; O2SAT 96–99
[2017-06-01 06:08] LABS: CREATININE 0.55 MG/DL (0.50-1.00)
[2017-06-01] MEDS: SODIUM CHLOR 0.9% 1000 ML INJ 1,000 ML IV SCH ×2 (06:43→21:00)
[2017-06-01] MEDS: AZTREONAM 1,000 MG/NS 100 ML IV SCH ×2 (06:43)
[2017-06-01] MEDS: VANCOMYCIN 1,000 MG/NS 250 ML IV SCH ×4 (08:02→20:50)
[2017-06-01] MEDS: DOCUSATE SODIUM 100 MG CAP PO SCH (08:03)
[2017-06-01] MEDS: HYDROCHLOROTHIAZIDE 25 MG TAB PO SCH (08:03)
[2017-06-01] MEDS: amLODIPine BESYLATE 5 MG TAB PO SCH (08:03)
[2017-06-01] MEDS: LOSARTAN 50 MG TAB PO SCH (08:03)
[2017-06-01] MEDS: NYSTAT/DIPHENHY/LIDO MOUTHWASH (Adult) 120ML SWISH-SWAL SCH ×4 (08:03→21:09)
[2017-06-01] MEDS: [UNRECOGNIZED DRUG - OTHER] PO SCH ×2 (08:04→21:09)
[2017-06-01 09:05] LABS: HEMATOCRIT 23.8 % (35.0-46.0); HEMOGLOBIN 7.9 GM/DL (11.6-15.3); MEAN CELL VOLUME 86.3 FL (80.0-100.0); MEAN CORPUSCULAR HEMOGLOBIN 28.6 PG (27.0-34.0); MEAN CORPUSCULAR HGB CONC 33.2 % (32.0-36.0); MEAN PLATELET VOLUME 9.6 FL (7.0-11.0); RED BLOOD COUNT 2.76 MIL/MM3 (4.00-5.30); RED CELL DISTRIBUTION WIDTH 18.5 % (11.6-17.2); WHITE BLOOD COUNT 0.1 TH/MM3 (4.0-11.0)
--- NOTE | 2017-06-01 09:09 | PD.ONC.PN ---
Subjective Subjective Remarks Tmax 99.8 overnight. Patient resting in bed in nad. Feeling much better today then she did yesterday. No further abdominal pain, nausea or vomiting. Objective Data Date Time Temp Pulse Resp B/P (MAP) Pulse Ox O2 Delivery O2 Flow Rate FiO2 06/01/17 08:07 99.3 95 20 122/76 (91) 98 06/01/17 07:03 86 06/01/17 05:06 84 06/01/17 04:25 99.8 06/01/17 04:25 99.5 84 16 115/73 (87) 96 06/01/17 04:02 83 06/01/17 03:02 92 06/01/17 02:03 91 06/01/17 01:16 99.4 06/01/17 01:00 82 06/01/17 00:01 77 06/01/17 00:00 98.3 79 16 95/64 (74) 98 06/01/17 00:00 98.6 05/31/17 23:06 90 05/31/17 22:05 80 05/31/17 21:00 110 05/31/17 20:26 99.4 105 18 101/70 (80) 99 05/31/17 20:26 99.4 05/31/17 20:06 97 05/31/17 19:08 112 05/31/17 16:01 100.0 90 18 91/52 (65) 99 05/31/17 11:34 100.1 109 18 114/75 (88) 97 05/31/17 10:45 102.5 116 18 91/56 (68) 93 05/31/17 10:10 102.6 05/31/17 09:45 128 146/83 (104) 05/31/17 09:35 98.4 06/01/17 06/01/17 06/01/17 07:00 15:00 23:00 Intake Total 1800 ml Output Total 1100 ml Balance 700 ml Result Diagram: 05/31/17 0415 06/01/17 0410 Laboratory Results Laboratory Tests Test 06/01/17 04:10 Creatinine 0.55 MG/DL Estimat Glomerular Filtration Rate 113 ML/MIN Culture Results Microbiology Date/Time Source Procedure Growth Status 05/31/17 05:20 Blood Peripheral Aerobic Blood Culture Pending Received 05/31/17 05:20 Blood Peripheral Anaerobic Blood Culture Pending Received 05/31/17 04:15 Blood Line Aerobic Blood Culture Pending Received 05/31/17 04:15 Blood Line Anaerobic Blood Culture Pending Received 05/31/17 04:50 Urine Clean Catch Urine Culture Pending Received Administered Medications Medications (Trade) Dose Ordered Sig/Zeynep Route PRN Reason Start Time Stop Time Status Last Admin Dose Admin Amlodipine Besylate (Norvasc) 5 mg DAILY PO 05/24/17 09:00 06/01/17 08:03 Losartan Potassium (Cozaar) 100 mg DAILY PO 05/24/17 09:00 06/01/17 08:03 Ondansetron HCl (Zofran Inj) 4 mg Q6HR PRN IV PUSH nausea 05/24/17 08:30 05/31/17 14:24 Melatonin (Melatonin) 5 mg HS PRN PO insomnia 05/24/17 08:30 05/30/17 20:48 Hydrochlorothiazide (Hydrodiuril) 25 mg DAILY PO 05/24/17 09:00 06/01/17 08:03 Acetaminophen (Tylenol) 650 mg Q4H PRN PO fever>100.4 05/24/17 08:45 05/31/17 18:19 Oxycodone HCl (Roxicodone) 5 mg Q4H PRN PO pain>5 05/24/17 12:15 05/24/17 20:34 Patient Own Medication PT OWN MED: RYDAPT (MIDOSTAUR... BID PO 05/31/17 09:00 06/13/17 21:01 06/01/17 08:04 Multi-Ingredient Mouthwash/Gargle (Magic Mouthwash Adult Liq) 5 ml QID SWISH-SWAL 05/24/17 13:00 05/31/17 20:38 Docusate Sodium (Colace) 100 mg DAILY PO 05/26/17 11:00 05/30/17 08:30 Magnesium Hydroxide (Milk Of Magnesia Liq) 30 ml DAILY PRN PO MILD - MODERATE CONSTIPATION 05/26/17 11:00 05/26/17 11:22 Sodium Chloride (NS Flush) 5 ml UNSCH PRN IV FLUSH SEE PROTOCOL TABLE 05/28/17 14:00 05/31/17 08:07 Heparin Sodium (Porcine) (Heparin Central Flush) 250 units UNSCH PRN IV FLUSH SEE PROTOCOL TABLE 05/28/17 14:00 05/29/17 04:51 Aztreonam 1000 mg/ Sodium Chloride 100 ml @ 200 mls/hr Q8H IV 05/31/17 06:00 06/01/17 06:43 Vancomycin HCl 1000 mg/Sodium Chloride 250 ml @ 250 mls/hr Q12H IV 05/31/17 08:00 06/01/17 08:02 Sodium Chloride 1,000 ml @ 84 mls/hr [id number] IV 05/31/17 09:15 06/01/17 06:43 Promethazine HCl (Phenergan Inj) 12.5 mg Q4H PRN IV-CENTRAL nausea/vomiting 05/31/17 09:30 05/31/17 20:42 Meperidine HCl (Demerol Inj) 12.5 mg Q6H PRN IV PUSH RIGORS 05/31/17 18:45 06/01/17 18:44 06/01/17 01:37 Objective Remarks GENERAL: Middle aged female, sitting up in bed in nad. SKIN: Warm and dry. HEAD: Normocephalic. EYES: No injection or drainage. NECK: Supple, trachea midline. CARDIOVASCULAR: Regular rate and rhythm RESPIRATORY: Breath sounds equal bilaterally. No accessory muscle use. GASTROINTESTINAL: Abdomen soft, non-tender, nondistended. EXTREMITIES: No cyanosis NEUROLOGICAL: awake and alert, normal speech. moving all extremities. Assessment/Plan Problem List: (1) Neutropenic fever ICD Codes: D70.9 - Neutropenia, unspecified; R50.81 - Fever presenting with conditions classified elsewhere Status: Acute Plan: --On Vanco + Azactam --BC +GNR CT chest/abdomen pelvis show no nidus for infection. 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 tolerated D1 05/25: D2. monitor CBC, bilirubin. 05/26: D3. Tolerating chemotherapy. Add on daily stool softener with prn milk of magnesia for constipation. Monitor CBC. 05/27: D4. Continue chemotherapy. Transfuse 1 unit irradiated packed red blood cells for hemoglobin of 7.5 as her counts are trending down. Monitor CBC, CMP. 1.19: D5. tolerating chemo. no transfusion needed at present. 05/29: D6. chemo complete yesterday. give 2 units pRBC today 05/30. D7. no blood transfusion. monitor. 05/31. D8. +fever. start Vanco/Azactam. obtain BC. obtain CT. 06/01: D9. continue Vanco/Azactam. resume Coreg. (3) Hypertension ICD Codes: I10 - Essential (primary) hypertension Status: Chronic Plan: --on home medications. -- Stable Assessment 57y/o female admitted for salvage chemotherapy for relapse of acute myeloid leukemia, FLT3 positive. h/o Rheumatoid arthritis. Anxiety disorder. COPD. Depression. Hypercholesterolemia. Hypertension. Irregular heart beat. History of AML (brought forward from initial consult for continuity of care): diagnosed with acute myeloid leukemia in August of last year. She had a normal chromosome 46 XX, but the FLT3 was positive and NPM1 was negative. She was treated with induction chemotherapy with cytarabine and daunorubicin 7+3, which failed to put her into remission. Subsequently she was treated with CLAG chemotherapy with Rydapt and she finally went into remission. The patient subsequently had first dose of high dose Zuleyka-C consolidation chemotherapy last November. She was referred to [facility] for bone marrow transplant. Prior to the transplant, she had a repeat bone marrow biopsy in February. This showed that she had relapsed. It was recommended for the patient to have Dacogen chemotherapy for two cycles and repeat the bone marrow biopsy. The patient had the repeat bone marrow biopsy on May 14 which showed persistent leukemia with 37% blasts. The chromosomes came back normal at 46 XX but the FLT3 is still positive Plan 1. continue antibiotics. 2. resume coreg 3. ok to shower today Attending Statement The exam, history, and the medical decision-making described in the above note were completed with the assistance of the mid-level provider. I reviewed and agree with the findings presented. I attest that I had a [id number] encounter with the patient on the same day, and personally performed and documented my assessment and findings in the medical record. Discussed w/ pt during nursing rounds. Events during day noted, appreciate ID consult, however developed diarrhea late in evening. Discussed check C-diff if positive plan to initiate tx live, oral Vancomycin. Monitor for fevers, repeat culture if fever over night. Cont abx support. Tucks for anal care. Problem Qualifiers (1) Hypertension: Qualified Codes: I10 - Essential (primary) hypertension Julianna Mcdaniel Jun 01, 2017 09:09 Elsi Levin MD Jun 01, 2017 19:17
[2017-06-01 09:10] LABS: PLATELET COUNT 16 TH/MM3 (150-450)
[2017-06-01] MEDS ORDERED: diphenhydrAMINE HCL 25 MG CAP PO PRN (09:15)
[2017-06-01] MEDS ORDERED: ACETAMINOPHEN 325 MG TAB PO PRN (09:15)
[2017-06-01] MEDS ORDERED: SODIUM CHLOR 0.9% 250 ML INJ 250 ML IV ONE (09:15)
[2017-06-01 09:43] LABS: LYMPHOCYTES 100 % (9-44)
[2017-06-01] MEDS: PROMETHAZINE INJ 25 MG/ML VIAL IV-CENTRAL PRN ×2 (10:31→21:05)
[2017-06-01] MEDS: CARVEDILOL 3.125 MG TAB PO SCH (10:32)
--- NOTE | 2017-06-01 12:01 | MB ---
cc: MARELY HASSAN MD,MARICEL Chun M.D. DATE OF CONSULTATION 06/01/[address] Fonseca. REASON FOR CONSULTATION Febrile neutropenia. HISTORY OF PRESENT ILLNESS This is a 57-year-old white female who has a history of acute myeloid leukemia, FLT3 positive. She was admitted for salvage chemotherapy on 05/24/2017. Her admission white count was 1.0. She has received the chemotherapy and today her white count is 0.1. She has had intermittent fevers beginning yesterday when she spiked up to 102.6 degrees. Blood cultures were drawn and the blood culture has gram-negative pola in three of four bottles. Urinalysis was unremarkable. Chest x-ray showed no acute infiltrates. A CT scan of the abdomen showed diffuse hepatic fatty infiltration and diffuse fatty infiltration/atrophy of the pancreas. A 7.6 cm cyst was seen laterally in the left renal cortex. The patient at one point had abdominal pain prior to the abdomen CT scan. Currently she denies abdominal pain. She denies diarrhea. She notes that she had chills last evening. She is currently sitting up in a chair. She reports to me that she received Phenergan prior to her chemotherapy this morning and this has made her drowsy. She also has a low platelet count. She has been started on aztreonam. PAST MEDICAL HISTORY 1. Hypertension. 2. Hypercholesteremia. 3. COPD. 4. Rheumatoid arthritis. 5. Depression. 6. Anxiety disorder. PAST SURGICAL HISTORY 1. Cholecystectomy. 2. Rusevx-X-Zfdw placement. 3. Complete hysterectomy. 4. Colon resection. ALLERGIES 1. SULFA. 2. CEFEPIME. 3. LATEX. MEDICATIONS 1. Aztreonam. 2. Vancomycin. 3. Coreg. 4. Colace. 5. Milk of magnesia. 6. Oxycodone 5 mg. 7. Norvasc. 8. Cozaar. 9. Hydrochlorothiazide. 10.Melatonin 5 mg p.o. at night. 11.Tylenol p.r.n. SOCIAL HISTORY No tobacco. Occasional alcohol. No substance abuse. FAMILY HISTORY Noncontributory. REVIEW OF SYSTEMS CONSTITUTIONAL: No fever or chills. HEAD, EYES, EARS, NOSE, AND THROAT: No visual problems. Denies difficulty swallowing. CARDIOVASCULAR: Denies chest pain or palpitations. RESPIRATORY: Denies shortness of breath or cough. GASTROINTESTINAL: Denies abdominal pain. Admits to nausea. Denies diarrhea. GENITOURINARY: Denies dysuria. HEMOPOIETIC: Denies easy bruising or bleeding. INTEGUMENTARY: Denies itching. No skin rash. ENDOCRINE: No polyuria or polydipsia. NEUROLOGIC: No problems with coordination. PSYCHIATRIC: Significant for depressed mood. PHYSICAL EXAMINATION GENERAL: This is a well-developed female in no acute distress. She is awake and alert but drowsy. VITAL SIGNS: Temperature 99.3, BP 122/76, respirations 20, heart rate 93. HEENT: The head is atraumatic. Extraocular movements grossly intact. Pupils reactive to light. No icterus. No lesions. The mucosa is moist. NECK: Supple without adenopathy or swelling. LUNGS: Clear breath sounds bilateral. HEART: Regular S1 and S2 without murmurs, rubs or gallops. ABDOMEN: Bowel sounds present. Soft, obese, nontender. No masses palpable. RECTAL: Not performed. EXTREMITIES: No clubbing, cyanosis or edema. SKIN: No rash. NEUROLOGIC: No gross focal findings. PSYCHIATRIC: Patient is calm and cooperative. LABORATORY WBCs 0.1, platelet count 16, hemoglobin 7.9, 100% lymphocytes. Creatinine 0.55, estimated GFR 113. Liver function tests normal. IMPRESSION 1. Gram-negative bacteremia. 2. Febrile neutropenia/pancytopenia. 3. Acute myeloid leukemia. The patient has received cytarabine, mitoxantrone and cladribine. She has an Hphevb-A-Ykic in place. Currently no clear source of the gram-negative sepsis at this time. RECOMMENDATIONS 1. Continue the aztreonam but increase the dose to 2 grams IV every 8 hours. 2. Continue vancomycin. 3. Monitor the blood culture identity and sensitivity. 4. Monitor the temperature. 5. Monitor blood counts. 6. Monitor clinical status. Thank you for this consultation. The patient's progress will be monitored and further recommendations depending on the clinical status and culture results. Marely Hassan MD FD/RANDEE /11:03 AM /11:37 AM
[2017-06-01] MEDS: AZTREONAM INJ 2,000 MG in SODIUM CHLORIDE 0.9% INJ 100 ML IV SCH ×2 (13:17→22:37)
[2017-06-01] MEDS ORDERED: WITCH HAZEL 50%/GLYCERIN 12.5% 40 PAD JAR TOPICAL PRN (19:30)
[2017-06-01] MEDS: SODIUM CHLORIDE 0.9% FLUSH 10 ML FLUSH IV FLUSH PRN (20:51)
[2017-06-01 21:28] LABS: ALBUMIN 2.9 GM/DL (3.4-5.0); BICARBONATE 26.8 MEQ/L (21.0-32.0); CALCIUM 8.7 MG/DL (8.5-10.1); CREATININE 0.63 MG/DL (0.50-1.00)
[2017-06-01 21:30] LABS: DIRECT BILIRUBIN ADULT 0.4 MG/DL (0.0-0.2)
[2017-06-01 21:33] LABS: INDIRECT BILIRUBIN 2.8 MG/DL (0.0-0.8); TOTAL BILIRUBIN ADULT 3.2 MG/DL (0.2-1.0); TOTAL PROTEIN 6.5 GM/DL (6.4-8.2); VANCOMYCIN TROUGH 7.7 MCG/ML (5.0-10.0)
[2017-06-02] VITALS (27 sets, daily range): BP systolic 92–139; BP diastolic 45–94; PULSE 71–112; RESP 16–20; TEMP 98.4–100.9; O2SAT 95–100
[2017-06-02] MEDS: SODIUM CHLOR 0.9% 1000 ML INJ 1,000 ML IV SCH ×2 (03:15→17:01)
[2017-06-02 04:05] LABS: HEMATOCRIT 27.3 % (35.0-46.0); MEAN CELL VOLUME 85.9 FL (80.0-100.0); MEAN CORPUSCULAR HEMOGLOBIN 28.4 PG (27.0-34.0); MEAN CORPUSCULAR HGB CONC 33.1 % (32.0-36.0); MEAN PLATELET VOLUME 9.2 FL (7.0-11.0); RED BLOOD COUNT 3.18 MIL/MM3 (4.00-5.30); RED CELL DISTRIBUTION WIDTH 17.3 % (11.6-17.2); WHITE BLOOD COUNT 0.1 TH/MM3 (4.0-11.0)
[2017-06-02 04:21] LABS: PLATELET COUNT 13 TH/MM3 (150-450)
[2017-06-02 04:37] LABS: ALT (GPT) 27 U/L (10-53); AST (GOT) 5 U/L (15-37); BLOOD UREA NITROGEN 12 MG/DL (7-18); CALCIUM 8.1 MG/DL (8.5-10.1); CHLORIDE 105 MEQ/L (98-107); CREATININE 0.59 MG/DL (0.50-1.00); GLOMERULAR FILTRATION RATE 104 ML/MIN (>89); GLUCOSE,RANDOM 146 MG/DL (74-106); SODIUM (NA) 140 MEQ/L (136-145)
[2017-06-02 04:39] LABS: ALKALINE PHOSPHATASE 51 U/L (45-117); TOTAL BILIRUBIN ADULT 1.8 MG/DL (0.2-1.0); TOTAL PROTEIN 6.5 GM/DL (6.4-8.2)
[2017-06-02 05:12] LABS: LYMPHOCYTES 100 % (9-44)
[2017-06-02] MEDS: AZTREONAM INJ 2,000 MG in SODIUM CHLORIDE 0.9% INJ 100 ML IV SCH ×3 (05:29→21:30)
[2017-06-02] MEDS: DOCUSATE SODIUM 100 MG CAP PO SCH (09:00)
[2017-06-02] MEDS: [UNRECOGNIZED DRUG - OTHER] PO SCH ×2 (09:30→19:54)
[2017-06-02] MEDS: amLODIPine BESYLATE 5 MG TAB PO SCH (09:31)
[2017-06-02] MEDS: PROMETHAZINE INJ 25 MG/ML VIAL IV-CENTRAL PRN ×2 (09:31→19:56)
[2017-06-02] MEDS: CARVEDILOL 3.125 MG TAB PO SCH (09:32)
[2017-06-02] MEDS: LOSARTAN 50 MG TAB PO SCH (09:32)
[2017-06-02] MEDS: HYDROCHLOROTHIAZIDE 25 MG TAB PO SCH (09:32)
[2017-06-02] MEDS: NYSTAT/DIPHENHY/LIDO MOUTHWASH (Adult) 120ML SWISH-SWAL SCH ×4 (09:44→20:00)
[2017-06-02] MEDS ORDERED: POTASSIUM CHLORIDE 10 MEQ CONTROLLED RELEASE TAB PO ONE (09:45)
[2017-06-02] MEDS: VANCOMYCIN 1,000 MG/NS 250 ML IV SCH ×4 (09:45→19:54)
--- NOTE | 2017-06-02 09:56 | PD.ONC.PN ---
Subjective Subjective Remarks Afebrile overnight. Resting in bed in nad. No complaints. Tired of being in the hospital. Has nausea with Rydapt, but no vomiting. Tolerating a regular diet again. No no symptoms. Objective Data Date Time Temp Pulse Resp B/P (MAP) Pulse Ox O2 Delivery O2 Flow Rate FiO2 06/02/17 08:00 99.2 103 20 120/80 (93) 98 06/02/17 08:00 86 06/02/17 07:04 88 06/02/17 06:03 97 06/02/17 05:00 82 06/02/17 04:32 99 06/02/17 03:44 99.6 06/02/17 03:40 99.7 97 122/77 (92) 98 06/02/17 03:00 104 06/02/17 02:00 91 06/02/17 01:07 94 06/02/17 00:30 99.4 90 16 103/60 (74) 97 06/01/17 23:39 93 06/01/17 23:07 95 06/01/17 22:03 76 06/01/17 21:07 84 06/01/17 20:45 98.8 85 18 105/71 (82) 97 06/01/17 20:12 97 06/01/17 19:05 84 06/01/17 18:00 88 06/01/17 17:10 98.4 89 20 107/75 97 06/01/17 17:00 81 06/01/17 15:55 82 06/01/17 15:00 76 06/01/17 14:10 99.0 80 20 103/60 98 06/01/17 14:00 93 06/01/17 13:59 99.0 90 18 97/59 98 06/01/17 13:00 96 06/01/17 12:54 99.5 88 20 112/71 (85) 99 06/01/17 12:00 81 06/01/17 11:00 100 06/01/17 10:00 99 06/02/17 06/02/17 06/02/17 07:00 15:00 23:00 Intake Total 915 ml Output Total 1250 ml Balance -335 ml Result Diagram: 06/02/17 0340 06/02/17 0340 Laboratory Results Laboratory Tests Test 06/01/17 17:42 06/01/17 20:40 06/02/17 03:40 Stool C. difficile Toxin (PCR) NEGATIVE Stl C. difficile Toxin Epiderm 027 PRESUMPTIVE NEGATIVE Blood Urea Nitrogen 15 MG/DL 12 MG/DL Creatinine 0.63 MG/DL 0.59 MG/DL Random Glucose 106 MG/DL 146 MG/DL Total Protein 6.5 GM/DL 6.5 GM/DL Albumin 2.9 GM/DL 3.0 GM/DL Calcium Level 8.7 MG/DL 8.1 MG/DL Alkaline Phosphatase 54 U/L 51 U/L Aspartate Amino Transf (AST/SGOT) 6 U/L 5 U/L Alanine Aminotransferase (ALT/SGPT) 28 U/L 27 U/L Total Bilirubin 3.2 MG/DL 1.8 MG/DL Direct Bilirubin 0.4 MG/DL Sodium Level 137 MEQ/L 140 MEQ/L Potassium Level 3.5 MEQ/L 3.2 MEQ/L Chloride Level 103 MEQ/L 105 MEQ/L Carbon Dioxide Level 26.8 MEQ/L 26.0 MEQ/L Anion Gap 7 MEQ/L 9 MEQ/L Estimat Glomerular Filtration Rate 97 ML/MIN 104 ML/MIN Indirect Bilirubin 2.8 MG/DL Vancomycin Level Trough 7.7 MCG/ML White Blood Count 0.1 TH/MM3 Red Blood Count 3.18 MIL/MM3 Hemoglobin 9.0 GM/DL Hematocrit 27.3 % Mean Corpuscular Volume 85.9 FL Mean Corpuscular Hemoglobin 28.4 PG Mean Corpuscular Hemoglobin Concent 33.1 % Red Cell Distribution Width 17.3 % Platelet Count 13 TH/MM3 Mean Platelet Volume 9.2 FL CBC Comment AUTO DIFF Differential Total Cells Counted 25 Lymphocytes % 100 % Differential Comment FINAL DIFF MANUAL Platelet Estimate RARE Platelet Morphology Comment NORMAL Red Cell Morphology Comment NORMAL Culture Results Microbiology Date/Time Source Procedure Growth Status 05/31/17 05:20 Blood Peripheral Aerobic Blood Culture - Preliminary Gram Negative Taz Resulted 05/31/17 05:20 Blood Peripheral Anaerobic Blood Culture - Preliminary NO GROWTH IN 1 DAY Resulted 05/31/17 04:15 Blood Line Aerobic Blood Culture - Preliminary Gram Negative Taz Resulted 05/31/17 04:15 Anaerobic Blood Culture - Preliminary Gram Negative Taz Resulted 05/31/17 04:50 Urine Clean Catch Urine Culture - Final 50-100,000 CFU/ML MIXED SHANTE... Complete Administered Medications Medications (Trade) Dose Ordered Sig/Zeynep Route PRN Reason Start Time Stop Time Status Last Admin Dose Admin Amlodipine Besylate (Norvasc) 5 mg DAILY PO 05/24/17 09:00 06/02/17 09:31 Losartan Potassium (Cozaar) 100 mg DAILY PO 05/24/17 09:00 06/02/17 09:32 Ondansetron HCl (Zofran Inj) 4 mg Q6HR PRN IV PUSH nausea 05/24/17 08:30 05/31/17 14:24 Melatonin (Melatonin) 5 mg HS PRN PO insomnia 05/24/17 08:30 05/30/17 20:48 Hydrochlorothiazide (Hydrodiuril) 25 mg DAILY PO 05/24/17 09:00 06/02/17 09:32 Acetaminophen (Tylenol) 650 mg Q4H PRN PO fever>100.4 05/24/17 08:45 05/31/17 18:19 Oxycodone HCl (Roxicodone) 5 mg Q4H PRN PO pain>5 05/24/17 12:15 06/02/17 06:53 Patient Own Medication PT OWN MED: RYDAPT (MIDOSTAUR... BID PO 05/31/17 09:00 06/13/17 21:01 06/02/17 09:30 Multi-Ingredient Mouthwash/Gargle (Magic Mouthwash Adult Liq) 5 ml QID SWISH-SWAL 05/24/17 13:00 06/02/17 09:44 Docusate Sodium (Colace) 100 mg DAILY PO 05/26/17 11:00 05/30/17 08:30 Magnesium Hydroxide (Milk Of Magnesia Liq) 30 ml DAILY PRN PO MILD - MODERATE CONSTIPATION 05/26/17 11:00 05/26/17 11:22 Sodium Chloride (NS Flush) 5 ml UNSCH PRN IV FLUSH SEE PROTOCOL TABLE 05/28/17 14:00 06/01/17 20:51 Heparin Sodium (Porcine) (Heparin Central Flush) 250 units UNSCH PRN IV FLUSH SEE PROTOCOL TABLE 05/28/17 14:00 05/29/17 04:51 Vancomycin HCl 1000 mg/Sodium Chloride 250 ml @ 250 mls/hr Q12H IV 05/31/17 08:00 06/02/17 09:45 Sodium Chloride 1,000 ml @ 84 mls/hr [id number] IV 05/31/17 09:15 06/02/17 03:15 Promethazine HCl (Phenergan Inj) 12.5 mg Q4H PRN IV-CENTRAL nausea/vomiting 05/31/17 09:30 06/02/17 09:31 Carvedilol (Coreg) 3.125 mg DAILY PO 06/01/17 09:00 06/02/17 09:32 Aztreonam 2000 mg/ Sodium Chloride 100 ml @ 200 mls/hr Q8H IV 06/01/17 14:00 06/02/17 05:29 Objective Remarks GENERAL: Middle aged female, sitting up in chair, relaxing. SKIN: Warm and dry. HEAD: Normocephalic. EYES: No injection or drainage. NECK: Supple, trachea midline. CARDIOVASCULAR: Regular rate and rhythm RESPIRATORY: Breath sounds equal bilaterally. No accessory muscle use. GASTROINTESTINAL: Abdomen soft, non-tender, nondistended. EXTREMITIES: No cyanosis NEUROLOGICAL: aox3. normal speech. no obvious focal deficit. Assessment/Plan Problem List: (1) Neutropenic fever ICD Codes: D70.9 - Neutropenia, unspecified; R50.81 - Fever presenting with conditions classified elsewhere Status: Acute Plan: --On Vanco + Azactam --BC +GNR CT chest/abdomen pelvis show no nidus for infection. 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 tolerated D1 05/25: D2. monitor CBC, bilirubin. 05/26: D3. Tolerating chemotherapy. Add on daily stool softener with prn milk of magnesia for constipation. Monitor CBC. 05/27: D4. Continue chemotherapy. Transfuse 1 unit irradiated packed red blood cells for hemoglobin of 7.5 as her counts are trending down. Monitor CBC, CMP. .: D5. tolerating chemo. no transfusion needed at present. 05/29: D6. chemo complete yesterday. give 2 units pRBC today 05/30. D7. no blood transfusion. monitor. 05/31. D8. +fever. start Vanco/Azactam. obtain BC. obtain CT. 06/01: D9. continue Vanco/Azactam. resume Coreg. (3) Hypertension ICD Codes: I10 - Essential (primary) hypertension Status: Chronic Plan: --on home medications. -- Stable (4) Stomatitis ICD Codes: K12.1 - Other forms of stomatitis Plan: --d/t chemotherapy --on magic mouthwash. Assessment 57y/o female admitted for salvage chemotherapy for relapse of acute myeloid leukemia, FLT3 positive. h/o Rheumatoid arthritis. Anxiety disorder. COPD. Depression. Hypercholesterolemia. Hypertension. Irregular heart beat. History of AML (brought forward from initial consult for continuity of care): diagnosed with acute myeloid leukemia in August of last year. She had a normal chromosome 46 XX, but the FLT3 was positive and NPM1 was negative. She was treated with induction chemotherapy with cytarabine and daunorubicin 7+3, which failed to put her into remission. Subsequently she was treated with CLAG chemotherapy with Rydapt and she finally went into remission. The patient subsequently had first dose of high dose Zuleyka-C consolidation chemotherapy last November. She was referred to [facility] for bone marrow transplant. Prior to the transplant, she had a repeat bone marrow biopsy in February. This showed that she had relapsed. It was recommended for the patient to have Dacogen chemotherapy for two cycles and repeat the bone marrow biopsy. The patient had the repeat bone marrow biopsy on May 14 which showed persistent leukemia with 37% blasts. The chromosomes came back normal at 46 XX but the FLT3 is still positive Plan 1. continue antibiotics. 2. ok to shower if desired. 3. d/c zofran, patient states only phenergan works. Attending Statement The exam, history, and the medical decision-making described in the above note were completed with the assistance of the mid-level provider. I reviewed and agree with the findings presented. I attest that I had a [id number] encounter with the patient on the same day, and personally performed and documented my assessment and findings in the medical record. PT seen and examined, sitting up in bed, tired from eating and walking to BR. Denies any bleeding. Noted C-diff neg. Fever improve. Cont empiric abx. Will likely need platelet transfusion tomorrow. Continue support. Emotional support provided. Rydapt cont. Problem Qualifiers (1) Hypertension: Qualified Codes: I10 - Essential (primary) hypertension Julianna Mcdaniel Jun 02, 2017 09:55 Elsi Levin MD Jun 02, 2017 18:42
--- NOTE | 2017-06-02 12:12 | HHI.IDPN ---
Note Infectious Disease Note Patient feels drowsy. Otherwise she says she feels okay. Just received Phenergan. Low grade fever overnight. Blood culture has Klebsiella. Had diarrhea yesterday. C. dif negative. Patient with acute myeloid leukemia, FLT3 positive. She was admitted for salvage chemotherapy on 05/24/2017. PAST MEDICAL HISTORY 1. Hypertension. 2. Hypercholesteremia. 3. COPD. 4. Rheumatoid arthritis. 5. Depression. 6. Anxiety disorder. PAST SURGICAL HISTORY 1. Cholecystectomy. 2. [id number] placement. 3. Complete hysterectomy. 4. Colon resection. ALLERGIES 1. SULFA. 2. CEFEPIME. 3. LATEX. ANTIBIOTICS 1. Aztreonam. 2. Vancomycin. Current Medications Medications (Trade) Dose Ordered Sig/Zeynep Route PRN Reason Start Time Stop Time Status Last Admin Dose Admin Amlodipine Besylate (Norvasc) 5 mg DAILY PO 05/24/17 09:00 06/02/17 09:31 Losartan Potassium (Cozaar) 100 mg DAILY PO 05/24/17 09:00 06/02/17 09:32 Melatonin (Melatonin) 5 mg HS PRN PO insomnia 05/24/17 08:30 05/30/17 20:48 Hydrochlorothiazide (Hydrodiuril) 25 mg DAILY PO 05/24/17 09:00 06/02/17 09:32 Acetaminophen (Tylenol) 650 mg Q4H PRN PO fever>100.4 05/24/17 08:45 05/31/17 18:19 Oxycodone HCl (Roxicodone) 5 mg Q4H PRN PO pain>5 05/24/17 12:15 06/02/17 06:53 Patient Own Medication PT OWN MED: RYDAPT (MIDOSTAUR... BID PO 05/31/17 09:00 06/13/17 21:01 06/02/17 09:30 Multi-Ingredient Mouthwash/Gargle (Magic Mouthwash Adult Liq) 5 ml QID SWISH-SWAL 05/24/17 13:00 06/02/17 09:44 Docusate Sodium (Colace) 100 mg DAILY PO 05/26/17 11:00 05/30/17 08:30 Magnesium Hydroxide (Milk Of Magnesia Liq) 30 ml DAILY PRN PO MILD - MODERATE CONSTIPATION 05/26/17 11:00 05/26/17 11:22 Sodium Chloride (NS Flush) 5 ml UNSCH PRN IV FLUSH SEE PROTOCOL TABLE 05/28/17 14:00 06/01/17 20:51 Heparin Sodium (Porcine) (Heparin Central Flush) 250 units UNSCH PRN IV FLUSH SEE PROTOCOL TABLE 05/28/17 14:00 05/29/17 04:51 Heparin Sodium (Porcine) (Heparin Central Flush) 500 units UNSCH IV FLUSH 05/28/17 14:00 Vancomycin HCl 1000 mg/Sodium Chloride 250 ml @ 250 mls/hr Q12H IV 05/31/17 08:00 06/02/17 09:45 Sodium Chloride 1,000 ml @ 84 mls/hr [id number] IV 05/31/17 09:15 06/02/17 03:15 Promethazine HCl (Phenergan Inj) 12.5 mg Q4H PRN IV-CENTRAL nausea/vomiting 05/31/17 09:30 06/02/17 09:31 Carvedilol (Coreg) 3.125 mg DAILY PO 06/01/17 09:00 06/02/17 09:32 Aztreonam 2000 mg/ Sodium Chloride 100 ml @ 200 mls/hr Q8H IV 06/01/17 14:00 06/02/17 05:29 Witch [place]/ Glycerin (Tucks Pads) 1 applic UNSCH PRN TOPICAL HEMORRHOIDS 06/01/17 19:30 OBJECTIVE: Vital Signs Date Time Temp Pulse Resp B/P (MAP) Pulse Ox O2 Delivery O2 Flow Rate FiO2 06/02/17 11:53 98.4 71 18 92/45 (61) 99 06/02/17 11:00 74 06/02/17 10:00 104 06/02/17 09:00 112 06/02/17 08:00 99.2 103 20 120/80 (93) 98 06/02/17 08:00 86 06/02/17 07:04 88 06/02/17 06:03 97 06/02/17 05:00 82 06/02/17 04:32 99 06/02/17 03:44 99.6 06/02/17 03:40 99.7 97 122/77 (92) 98 06/02/17 03:00 104 06/02/17 02:00 91 06/02/17 01:07 94 06/02/17 00:30 99.4 90 16 103/60 (74) 97 06/01/17 23:39 93 06/01/17 23:07 95 06/01/17 22:03 76 06/01/17 21:07 84 06/01/17 20:45 98.8 85 18 105/71 (82) 97 06/01/17 20:12 97 06/01/17 19:05 84 06/01/17 18:00 88 06/01/17 17:10 98.4 89 20 107/75 97 06/01/17 17:00 81 06/01/17 15:55 82 06/01/17 15:00 76 06/01/17 14:10 99.0 80 20 103/60 98 06/01/17 14:00 93 06/01/17 13:59 99.0 90 18 97/59 98 06/01/17 13:00 96 06/01/17 12:54 99.5 88 20 112/71 (85) 99 Laboratory Tests Test 06/01/17 04:10 06/02/17 03:40 White Blood Count 0.1 TH/MM3 0.1 TH/MM3 Red Blood Count 2.76 MIL/MM3 3.18 MIL/MM3 Hemoglobin 7.9 GM/DL 9.0 GM/DL Hematocrit 23.8 % 27.3 % Mean Corpuscular Volume 86.3 FL 85.9 FL Mean Corpuscular Hemoglobin 28.6 PG 28.4 PG Mean Corpuscular Hemoglobin Concent 33.2 % 33.1 % Red Cell Distribution Width 18.5 % 17.3 % Platelet Count 16 TH/MM3 13 TH/MM3 Mean Platelet Volume 9.6 FL 9.2 FL CBC Comment AUTO DIFF AUTO DIFF Differential Total Cells Counted 10 25 Lymphocytes % 100 % 100 % Neutrophils # (Manual) 0.0 TH/MM3 Differential Comment FINAL DIFF MANUAL FINAL DIFF MANUAL Platelet Estimate RARE RARE Platelet Morphology Comment NORMAL NORMAL Red Cell Morphology Comment NORMAL Laboratory Tests Test 06/01/17 04:10 06/01/17 20:40 06/02/17 03:40 Creatinine 0.55 MG/DL 0.63 MG/DL 0.59 MG/DL Estimat Glomerular Filtration Rate 113 ML/MIN 97 ML/MIN 104 ML/MIN Blood Urea Nitrogen 15 MG/DL 12 MG/DL Random Glucose 106 MG/DL 146 MG/DL Total Protein 6.5 GM/DL 6.5 GM/DL Albumin 2.9 GM/DL 3.0 GM/DL Calcium Level 8.7 MG/DL 8.1 MG/DL Alkaline Phosphatase 54 U/L 51 U/L Aspartate Amino Transf (AST/SGOT) 6 U/L 5 U/L Alanine Aminotransferase (ALT/SGPT) 28 U/L 27 U/L Total Bilirubin 3.2 MG/DL 1.8 MG/DL Direct Bilirubin 0.4 MG/DL Sodium Level 137 MEQ/L 140 MEQ/L Potassium Level 3.5 MEQ/L 3.2 MEQ/L Chloride Level 103 MEQ/L 105 MEQ/L Carbon Dioxide Level 26.8 MEQ/L 26.0 MEQ/L Anion Gap 7 MEQ/L 9 MEQ/L Indirect Bilirubin 2.8 MG/DL Microbiology Date/Time Source Procedure Growth Status 05/31/17 05:20 Blood Peripheral Aerobic Blood Culture - Final Klebsiella Pneumoniae Resulted 05/31/17 05:20 Blood Peripheral Anaerobic Blood Culture - Preliminary NO GROWTH IN 2 DAYS Resulted 05/31/17 04:15 Blood Line Aerobic Blood Culture - Final Citrobacter Youngae Complete 05/31/17 04:15 Anaerobic Blood Culture - Final Klebsiella Pneumoniae Complete 05/31/17 04:50 Urine Clean Catch Urine Culture - Final 50-100,000 CFU/ML MIXED SHANTE... Complete PHYSICAL EXAMINATION GENERAL: No acute distress. She is awake and alert but drowsy. HEENT: The head is atraumatic. Extraocular movements grossly intact. Pupils reactive to light. No icterus. No lesions. The mucosa is moist. NECK: Supple without adenopathy or swelling. LUNGS: Clear breath sounds. HEART: Regular S1 and S2 without murmurs, rubs or gallops. ABDOMEN: Bowel sounds present. Soft, obese, nontender. EXTREMITIES: No clubbing, cyanosis or edema. SKIN: No rash. NEUROLOGIC: No gross focal findings. PSYCHIATRIC: Calm and cooperative. IMPRESSION 1. Gram-negative bacteremia. Klebsiella. 2. Febrile neutropenia/pancytopenia. 3. Acute myeloid leukemia. RECOMMENDATIONS 1. Continue Aztreonam. 2. Continue vancomycin. 3. Monitor temperature. 4. Repeat blood culture. Ordered. 5. Monitor blood counts. 6. Monitor clinical status. Jim Grande MD Jun 02, 2017 12:12
[2017-06-02] MEDS ORDERED: POTASSIUM CHLOR 40 MEQ PREMIX 100 ML IV ONE (18:15)
[2017-06-02] MEDS: ACETAMINOPHEN 325 MG TAB PO PRN (21:30)
[2017-06-03] VITALS (8 sets, daily range): BP systolic 99–173; BP diastolic 52–87; PULSE 86–110; RESP 16–18; TEMP 98.2–101.2; O2SAT 95–99
[2017-06-03] MEDS ORDERED: MEPERIDINE HCL 25 MG/ML VIAL IV ONE (05:15)
[2017-06-03] MEDS: AZTREONAM INJ 2,000 MG in SODIUM CHLORIDE 0.9% INJ 100 ML IV SCH ×3 (05:39→23:04)
[2017-06-03] MEDS ORDERED: SODIUM CHLOR 0.9% 250 ML INJ 250 ML IV ONE (06:00)
[2017-06-03] MEDS ORDERED: ACETAMINOPHEN 325 MG TAB PO PRN (06:00)
[2017-06-03] MEDS ORDERED: diphenhydrAMINE HCL 25 MG CAP PO PRN (06:00)
[2017-06-03 06:13] LABS: HEMATOCRIT 24.6 % (35.0-46.0); HEMOGLOBIN 8.2 GM/DL (11.6-15.3); MEAN CELL VOLUME 85.2 FL (80.0-100.0); MEAN CORPUSCULAR HEMOGLOBIN 28.5 PG (27.0-34.0); MEAN CORPUSCULAR HGB CONC 33.4 % (32.0-36.0); MEAN PLATELET VOLUME 9.9 FL (7.0-11.0); RED BLOOD COUNT 2.88 MIL/MM3 (4.00-5.30); RED CELL DISTRIBUTION WIDTH 16.5 % (11.6-17.2); WHITE BLOOD COUNT 0.1 TH/MM3 (4.0-11.0)
[2017-06-03 06:28] LABS: PLATELET COUNT 6 TH/MM3 (150-450)
[2017-06-03 06:29] LABS: ALBUMIN 2.7 GM/DL (3.4-5.0); ALKALINE PHOSPHATASE 52 U/L (45-117); ALT (GPT) 24 U/L (10-53); AST (GOT) 7 U/L (15-37); BICARBONATE 23.8 MEQ/L (21.0-32.0); BLOOD UREA NITROGEN 8 MG/DL (7-18); CALCIUM 8.6 MG/DL (8.5-10.1); CHLORIDE 106 MEQ/L (98-107); GLOMERULAR FILTRATION RATE 126 ML/MIN (>89); GLUCOSE,RANDOM 88 MG/DL (74-106); SODIUM (NA) 139 MEQ/L (136-145); TOTAL PROTEIN 6.4 GM/DL (6.4-8.2)
[2017-06-03] MEDS: VANCOMYCIN 1,000 MG/NS 250 ML IV SCH ×4 (08:00→20:00)
[2017-06-03] MEDS: SODIUM CHLOR 0.9% 1000 ML INJ 1,000 ML IV SCH ×2 (08:00→23:06)
[2017-06-03] MEDS: NYSTAT/DIPHENHY/LIDO MOUTHWASH (Adult) 120ML SWISH-SWAL SCH ×4 (08:46→20:20)
[2017-06-03] MEDS: SODIUM CHLORIDE 0.9% FLUSH 10 ML FLUSH IV FLUSH PRN (08:47)
[2017-06-03] MEDS: PROMETHAZINE INJ 25 MG/ML VIAL IV-CENTRAL PRN ×2 (08:47→20:20)
[2017-06-03] MEDS: diphenhydrAMINE HCL 50 MG/ML VIAL IV PUSH PRN (08:47)
[2017-06-03] MEDS: [UNRECOGNIZED DRUG - OTHER] PO SCH ×2 (08:48→20:22)
[2017-06-03] MEDS: LOSARTAN 50 MG TAB PO SCH (08:48)
[2017-06-03] MEDS: CARVEDILOL 3.125 MG TAB PO SCH (08:48)
[2017-06-03] MEDS: HYDROCHLOROTHIAZIDE 25 MG TAB PO SCH (08:48)
[2017-06-03] MEDS: amLODIPine BESYLATE 5 MG TAB PO SCH (08:48)
[2017-06-03 08:51] LABS: LYMPHOCYTES 100 % (9-44)
[2017-06-03] MEDS: DOCUSATE SODIUM 100 MG CAP PO SCH (08:57)
--- NOTE | 2017-06-03 10:06 | PD.ONC.PN ---
Subjective Subjective Remarks Tmax 100.9 overnight. Patient resting in bed. Complaining of sore throat and overall malaise. Ate a little breakfast this morning. Objective Data Date Time Temp Pulse Resp B/P (MAP) Pulse Ox O2 Delivery O2 Flow Rate FiO2 06/03/17 04:45 100.1 110 18 173/87 (115) 96 06/02/17 22:33 99.5 76 16 108/57 (74) 95 06/02/17 21:32 100.5 89 18 139/94 (109) 98 06/02/17 21:15 100.9 06/02/17 20:00 84 06/02/17 19:40 100.4 92 16 129/78 (95) 100 06/02/17 17:58 97 06/02/17 17:00 93 06/02/17 16:00 94 06/02/17 16:00 99.4 97 18 116/77 (90) 99 06/02/17 15:00 89 06/02/17 14:00 97 06/02/17 13:00 88 06/02/17 12:00 72 06/02/17 11:53 98.4 71 18 92/45 (61) 99 06/02/17 11:00 74 06/02/17 10:00 104 06/03/17 06/03/17 06/03/17 07:00 15:00 23:00 Intake Total 400 ml Output Total 900 ml Balance -500 ml Result Diagram: 06/03/17 0550 06/03/17 0550 Laboratory Results Laboratory Tests Test 06/03/17 05:50 White Blood Count 0.1 TH/MM3 Red Blood Count 2.88 MIL/MM3 Hemoglobin 8.2 GM/DL Hematocrit 24.6 % Mean Corpuscular Volume 85.2 FL Mean Corpuscular Hemoglobin 28.5 PG Mean Corpuscular Hemoglobin Concent 33.4 % Red Cell Distribution Width 16.5 % Platelet Count 6 TH/MM3 Mean Platelet Volume 9.9 FL CBC Comment AUTO DIFF Differential Total Cells Counted 10 Lymphocytes % 100 % Neutrophils # (Manual) 0.0 TH/MM3 Differential Comment FINAL DIFF MANUAL Platelet Estimate RARE Platelet Morphology Comment NORMAL Red Cell Morphology Comment NORMAL Blood Urea Nitrogen 8 MG/DL Creatinine 0.50 MG/DL Random Glucose 88 MG/DL Total Protein 6.4 GM/DL Albumin 2.7 GM/DL Calcium Level 8.6 MG/DL Alkaline Phosphatase 52 U/L Aspartate Amino Transf (AST/SGOT) 7 U/L Alanine Aminotransferase (ALT/SGPT) 24 U/L Total Bilirubin 1.0 MG/DL Sodium Level 139 MEQ/L Potassium Level 4.4 MEQ/L Chloride Level 106 MEQ/L Carbon Dioxide Level 23.8 MEQ/L Anion Gap 9 MEQ/L Estimat Glomerular Filtration Rate 126 ML/MIN Culture Results Microbiology Date/Time Source Procedure Growth Status 06/02/17 21:47 Blood Peripheral Aerobic Blood Culture Pending Received 06/02/17 21:47 Blood Peripheral Anaerobic Blood Culture Pending Received 06/02/17 21:44 Blood Peripheral Aerobic Blood Culture Pending Received 06/02/17 21:44 Blood Peripheral Anaerobic Blood Culture Pending Received Administered Medications Medications (Trade) Dose Ordered Sig/Zeynep Route PRN Reason Start Time Stop Time Status Last Admin Dose Admin Amlodipine Besylate (Norvasc) 5 mg DAILY PO 05/24/17 09:00 06/03/17 08:48 Losartan Potassium (Cozaar) 100 mg DAILY PO 05/24/17 09:00 06/03/17 08:48 Melatonin (Melatonin) 5 mg HS PRN PO insomnia 05/24/17 08:30 05/30/17 20:48 Hydrochlorothiazide (Hydrodiuril) 25 mg DAILY PO 05/24/17 09:00 06/03/17 08:48 Acetaminophen (Tylenol) 650 mg Q4H PRN PO fever>100.4 05/24/17 08:45 06/02/17 21:30 Oxycodone HCl (Roxicodone) 5 mg Q4H PRN PO pain>5 05/24/17 12:15 06/02/17 19:52 Patient Own Medication PT OWN MED: RYDAPT (MIDOSTAUR... BID PO 05/31/17 09:00 06/13/17 21:01 06/03/17 08:48 Multi-Ingredient Mouthwash/Gargle (Magic Mouthwash Adult Liq) 5 ml QID SWISH-SWAL 05/24/17 13:00 06/03/17 08:46 Docusate Sodium (Colace) 100 mg DAILY PO 05/26/17 11:00 05/30/17 08:30 Magnesium Hydroxide (Milk Of Magnesia Liq) 30 ml DAILY PRN PO MILD - MODERATE CONSTIPATION 05/26/17 11:00 05/26/17 11:22 Sodium Chloride (NS Flush) 5 ml UNSCH PRN IV FLUSH SEE PROTOCOL TABLE 05/28/17 14:00 06/03/17 08:47 Heparin Sodium (Porcine) (Heparin Central Flush) 250 units UNSCH PRN IV FLUSH SEE PROTOCOL TABLE 05/28/17 14:00 05/29/17 04:51 Vancomycin HCl 1000 mg/Sodium Chloride 250 ml @ 250 mls/hr Q12H IV 05/31/17 08:00 06/02/17 19:54 Sodium Chloride 1,000 ml @ 84 mls/hr [id number] IV 05/31/17 09:15 06/02/17 17:01 Promethazine HCl (Phenergan Inj) 12.5 mg Q4H PRN IV-CENTRAL nausea/vomiting 05/31/17 09:30 06/03/17 08:47 Carvedilol (Coreg) 3.125 mg DAILY PO 06/01/17 09:00 06/03/17 08:48 Aztreonam 2000 mg/ Sodium Chloride 100 ml @ 200 mls/hr Q8H IV 06/01/17 14:00 06/03/17 05:39 Acetaminophen (Tylenol) 650 mg Q4H PRN PO SEE LABEL COMMENTS 06/03/17 06:00 06/03/17 08:48 Diphenhydramine HCl (Benadryl Inj) 25 mg Q4H PRN IV PUSH SEE LABEL COMMENTS 06/02/17 22:30 06/03/17 08:47 Objective Remarks GENERAL: Fatigued, chronically ill appearing female, lying in bed on right side in [facility]. SKIN: Warm and dry. HEAD: Normocephalic. EYES: No injection or drainage. NECK: Supple, trachea midline. CARDIOVASCULAR: Regular rate and rhythm RESPIRATORY: Breath sounds equal bilaterally. No accessory muscle use. GASTROINTESTINAL: Abdomen soft, non-tender, nondistended. EXTREMITIES: No cyanosis NEUROLOGICAL: awake and alert, normal speech. moving all extremities. Assessment/Plan Problem List: (1) Neutropenic fever ICD Codes: D70.9 - Neutropenia, unspecified; R50.81 - Fever presenting with conditions classified elsewhere Status: Acute Plan: --On Vanco + Azactam --BC + Klebsiella pneumoniae CT chest/abdomen pelvis show no nidus for infection. 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 tolerated D1 16: D2. monitor CBC, bilirubin. 05/26: D3. Tolerating chemotherapy. Add on daily stool softener with prn milk of magnesia for constipation. Monitor CBC. 05/27: D4. Continue chemotherapy. Transfuse 1 unit irradiated packed red blood cells for hemoglobin of 7.5 as her counts are trending down. Monitor CBC, CMP. .: D5. tolerating chemo. no transfusion needed at present. 05/29: D6. chemo complete yesterday. give 2 units pRBC today 05/30. D7. no blood transfusion. monitor. 05/31. D8. +fever. start Vanco/Azactam. obtain BC. obtain CT. 06/01: D9. continue Vanco/Azactam. resume Coreg. 06/03: D11: continue antibiotics. supportive care (3) Hypertension ICD Codes: I10 - Essential (primary) hypertension Status: Chronic Plan: --on home medications. -- Stable (4) Stomatitis ICD Codes: K12.1 - Other forms of stomatitis Plan: --d/t chemotherapy --on magic mouthwash. Assessment 57y/o female admitted for salvage chemotherapy for relapse of acute myeloid leukemia, FLT3 positive. h/o Rheumatoid arthritis. Anxiety disorder. COPD. Depression. Hypercholesterolemia. Hypertension. Irregular heart beat. History of AML (brought forward from initial consult for continuity of care): diagnosed with acute myeloid leukemia in August of last year. She had a normal chromosome 46 XX, but the FLT3 was positive and NPM1 was negative. She was treated with induction chemotherapy with cytarabine and daunorubicin 7+3, which failed to put her into remission. Subsequently she was treated with CLAG chemotherapy with Rydapt and she finally went into remission. The patient subsequently had first dose of high dose Zuleyka-C consolidation chemotherapy last November. She was referred to [facility] for bone marrow transplant. Prior to the transplant, she had a repeat bone marrow biopsy in February. This showed that she had relapsed. It was recommended for the patient to have Dacogen chemotherapy for two cycles and repeat the bone marrow biopsy. The patient had the repeat bone marrow biopsy on May 14 which showed persistent leukemia with 37% blasts. The chromosomes came back normal at 46 XX but the FLT3 is still positive Plan 1. continue antibiotics. add Acyclovir for throat/mouth sores. add PRN viscous lidocaine. 2. continue supportive care 3. start IVF, monitor fevers, blood pressure. Attending Statement The exam, history, and the medical decision-making described in the above note were completed with the assistance of the mid-level provider. I reviewed and agree with the findings presented. I attest that I had a [id number] encounter with the patient on the same day, and personally performed and documented my assessment and findings in the medical record. Tired early in evening. Epistaxis this AM before platelet transfusion. Currently no wet purpura, no other bleeding. Temp resume, plan repeat culture. Cont support, transfusion continue, anticipate continue cytopenia until next week. Abx continue. Problem Qualifiers (1) Hypertension: Qualified Codes: I10 - Essential (primary) hypertension Julianna Mcdaniel Jun 03, 2017 10:06 Elsi Levin MD Jun 03, 2017 18:55
--- NOTE | 2017-06-03 12:46 | HHI.IDPN ---
Note Infectious Disease Note Patient having elevated temps. Notes chills and sore throat this am. Did not sleep well. Poor appetite. No diarrhea. No SOB. Received chemo yesterday. pill form. Patient with acute myeloid leukemia, FLT3 positive. She was admitted for salvage chemotherapy on 05/24/2017. PAST MEDICAL HISTORY 1. Hypertension. 2. Hypercholesteremia. 3. COPD. 4. Rheumatoid arthritis. 5. Depression. 6. Anxiety disorder. PAST SURGICAL HISTORY 1. Cholecystectomy. 2. Fgarbz-F-Cfat placement. 3. Complete hysterectomy. 4. Colon resection. ALLERGIES 1. SULFA. 2. CEFEPIME. 3. LATEX. ANTIBIOTICS 1. Aztreonam. 2. Vancomycin. Current Medications Medications (Trade) Dose Ordered Sig/Zeynep Route PRN Reason Start Time Stop Time Status Last Admin Dose Admin Amlodipine Besylate (Norvasc) 5 mg DAILY PO 05/24/17 09:00 06/03/17 08:48 Losartan Potassium (Cozaar) 100 mg DAILY PO 05/24/17 09:00 06/03/17 08:48 Melatonin (Melatonin) 5 mg HS PRN PO insomnia 05/24/17 08:30 05/30/17 20:48 Hydrochlorothiazide (Hydrodiuril) 25 mg DAILY PO 05/24/17 09:00 06/03/17 08:48 Acetaminophen (Tylenol) 650 mg Q4H PRN PO fever>100.4 05/24/17 08:45 06/02/17 21:30 Oxycodone HCl (Roxicodone) 5 mg Q4H PRN PO pain>5 05/24/17 12:15 06/02/17 19:52 Patient Own Medication PT OWN MED: RYDAPT (MIDOSTAUR... BID PO 05/31/17 09:00 06/13/17 21:01 06/03/17 08:48 Multi-Ingredient Mouthwash/Gargle (Magic Mouthwash Adult Liq) 5 ml QID SWISH-SWAL 05/24/17 13:00 06/03/17 08:46 Docusate Sodium (Colace) 100 mg DAILY PO 05/26/17 11:00 05/30/17 08:30 Magnesium Hydroxide (Milk Of Magnesia Liq) 30 ml DAILY PRN PO MILD - MODERATE CONSTIPATION 05/26/17 11:00 05/26/17 11:22 Sodium Chloride (NS Flush) 5 ml UNSCH PRN IV FLUSH SEE PROTOCOL TABLE 05/28/17 14:00 06/03/17 08:47 Heparin Sodium (Porcine) (Heparin Central Flush) 250 units UNSCH PRN IV FLUSH SEE PROTOCOL TABLE 05/28/17 14:00 05/29/17 04:51 Heparin Sodium (Porcine) (Heparin Central Flush) 500 units UNSCH IV FLUSH 05/28/17 14:00 Vancomycin HCl 1000 mg/Sodium Chloride 250 ml @ 250 mls/hr Q12H IV 05/31/17 08:00 06/03/17 08:00 Promethazine HCl (Phenergan Inj) 12.5 mg Q4H PRN IV-CENTRAL nausea/vomiting 05/31/17 09:30 06/03/17 08:47 Carvedilol (Coreg) 3.125 mg DAILY PO 06/01/17 09:00 06/03/17 08:48 Aztreonam 2000 mg/ Sodium Chloride 100 ml @ 200 mls/hr Q8H IV 06/01/17 14:00 06/03/17 05:39 Witch [place]/ Glycerin (Tucks Pads) 1 applic UNSCH PRN TOPICAL HEMORRHOIDS 06/01/17 19:30 Sodium Chloride 250 ml @ 15 mls/hr ONCE ONCE IV 06/03/17 06:00 06/03/17 22:39 06/03/17 11:00 Acetaminophen (Tylenol) 650 mg Q4H PRN PO SEE LABEL COMMENTS 06/03/17 06:00 06/03/17 08:48 Diphenhydramine HCl (Benadryl) 25 mg Q4H PRN PO SEE LABEL COMMENTS 06/03/17 06:00 Diphenhydramine HCl (Benadryl Inj) 25 mg Q4H PRN IV PUSH SEE LABEL COMMENTS 06/02/17 22:30 06/03/17 08:47 Sodium Chloride 1,000 ml @ 84 mls/hr [id number] IV 06/03/17 10:00 06/03/17 08:00 OBJECTIVE: Vital Signs Date Time Temp Pulse Resp B/P (MAP) Pulse Ox O2 Delivery O2 Flow Rate FiO2 06/03/17 11:11 98.8 95 16 99/52 95 06/03/17 10:46 98.2 86 16 112/75 95 06/03/17 08:40 101.0 101 16 117/75 (89) 96 06/03/17 04:45 100.1 110 18 173/87 (115) 96 06/02/17 22:33 99.5 76 16 108/57 (74) 95 06/02/17 21:32 100.5 89 18 139/94 (109) 98 06/02/17 21:15 100.9 06/02/17 20:00 84 06/02/17 19:40 100.4 92 16 129/78 (95) 100 06/02/17 17:58 97 06/02/17 17:00 93 06/02/17 16:00 94 06/02/17 16:00 99.4 97 18 116/77 (90) 99 06/02/17 15:00 89 06/02/17 14:00 97 06/02/17 13:00 88 Laboratory Tests Test 06/02/17 03:40 06/03/17 05:50 White Blood Count 0.1 TH/MM3 0.1 TH/MM3 Red Blood Count 3.18 MIL/MM3 2.88 MIL/MM3 Hemoglobin 9.0 GM/DL 8.2 GM/DL Hematocrit 27.3 % 24.6 % Mean Corpuscular Volume 85.9 FL 85.2 FL Mean Corpuscular Hemoglobin 28.4 PG 28.5 PG Mean Corpuscular Hemoglobin Concent 33.1 % 33.4 % Red Cell Distribution Width 17.3 % 16.5 % Platelet Count 13 TH/MM3 6 TH/MM3 Mean Platelet Volume 9.2 FL 9.9 FL CBC Comment AUTO DIFF AUTO DIFF Differential Total Cells Counted 25 10 Lymphocytes % 100 % 100 % Differential Comment FINAL DIFF MANUAL FINAL DIFF MANUAL Platelet Estimate RARE RARE Platelet Morphology Comment NORMAL NORMAL Red Cell Morphology Comment NORMAL NORMAL Neutrophils # (Manual) 0.0 TH/MM3 Laboratory Tests Test 06/01/17 20:40 06/02/17 03:40 06/03/17 05:50 Blood Urea Nitrogen 15 MG/DL 12 MG/DL 8 MG/DL Creatinine 0.63 MG/DL 0.59 MG/DL 0.50 MG/DL Random Glucose 106 MG/DL 146 MG/DL 88 MG/DL Total Protein 6.5 GM/DL 6.5 GM/DL 6.4 GM/DL Albumin 2.9 GM/DL 3.0 GM/DL 2.7 GM/DL Calcium Level 8.7 MG/DL 8.1 MG/DL 8.6 MG/DL Alkaline Phosphatase 54 U/L 51 U/L 52 U/L Aspartate Amino Transf (AST/SGOT) 6 U/L 5 U/L 7 U/L Alanine Aminotransferase (ALT/SGPT) 28 U/L 27 U/L 24 U/L Total Bilirubin 3.2 MG/DL 1.8 MG/DL 1.0 MG/DL Direct Bilirubin 0.4 MG/DL Sodium Level 137 MEQ/L 140 MEQ/L 139 MEQ/L Potassium Level 3.5 MEQ/L 3.2 MEQ/L 4.4 MEQ/L Chloride Level 103 MEQ/L 105 MEQ/L 106 MEQ/L Carbon Dioxide Level 26.8 MEQ/L 26.0 MEQ/L 23.8 MEQ/L Anion Gap 7 MEQ/L 9 MEQ/L 9 MEQ/L Estimat Glomerular Filtration Rate 97 ML/MIN 104 ML/MIN 126 ML/MIN Indirect Bilirubin 2.8 MG/DL Microbiology Date/Time Source Procedure Growth Status 06/02/17 21:47 Blood Peripheral Aerobic Blood Culture - Preliminary NO GROWTH IN 1 DAY Resulted 06/02/17 21:47 Blood Peripheral Anaerobic Blood Culture - Preliminary NO GROWTH IN 1 DAY Resulted 06/02/17 21:44 Blood Peripheral Aerobic Blood Culture - Preliminary NO GROWTH IN 1 DAY Resulted 06/02/17 21:44 Blood Peripheral Anaerobic Blood Culture - Preliminary NO GROWTH IN 1 DAY Resulted Microbiology Date/Time Source Procedure Growth Status 05/31/17 05:20 Blood Peripheral Aerobic Blood Culture - Final Klebsiella Pneumoniae Resulted 05/31/17 05:20 Blood Peripheral Anaerobic Blood Culture - Preliminary NO GROWTH IN 2 DAYS Resulted 05/31/17 04:15 Blood Line Aerobic Blood Culture - Final Citrobacter Youngae Complete 05/31/17 04:15 Anaerobic Blood Culture - Final Klebsiella Pneumoniae Complete 05/31/17 04:50 Urine Clean Catch Urine Culture - Final 50-100,000 CFU/ML MIXED SHANTE... Complete Last Impressions Chest X-Ray 05/31/17 0441 Signed Impressions: Service Date/Time: Wednesday, May 31, 2017 05:09 - CONCLUSION: The lungs are clear. Troy Clarke MD Chest CT 05/31/17 0000 Signed Impressions: Service Date/Time: Wednesday, May 31, 2017 17:30 - CONCLUSION: 1. No focal consolidation or effusion to suggest infection. No adenopathy. [id number] in superior vena cava. Jacinto Tello MD Abdomen/Pelvis CT 05/31/17 0000 Signed Impressions: Service Date/Time: Wednesday, May 31, 2017 17:30 - CONCLUSION: 1. Diffuse hepatic fatty infiltration. 2. Similarly, diffuse fatty infiltration/atrophy of the pancreas. 3. 7.6 cm cyst laterally in the left renal cortex. 4. No acute intraperitoneal or pelvic process to explain current clinical symptoms. No significant change from prior. Cristo Hughes MD PHYSICAL EXAMINATION GENERAL: No acute distress. Looks a little lethargic. HEENT: The head is atraumatic. Extraocular movements grossly intact. Pupils reactive to light. No icterus. No lesions. The mucosa is moist. No thrush. NECK: Supple without adenopathy or swelling. LUNGS: Clear. HEART: Regular S1 and S2 without murmurs, rubs or gallops. ABDOMEN: Bowel sounds present. Soft, obese, nontender. EXTREMITIES: No clubbing, cyanosis or edema. SKIN: No rash. NEUROLOGIC: No gross focal findings. PSYCHIATRIC: Calm and cooperative. IMPRESSION 1. Gram-negative bacteremia. Klebsiella. 2. Febrile neutropenia/pancytopenia. Recurring fever. 3. Acute myeloid leukemia. RECOMMENDATIONS 1. Continue Aztreonam. 2. Continue vancomycin. 3. Add Diflucan in light of persistent fever. 4. Monitor temperature. 5. Monitor blood counts. 6. Monitor clinical status. Jim Grande MD Jun 03, 2017 12:46
[2017-06-03] MEDS: ACETAMINOPHEN 325 MG TAB PO PRN ×2 (14:39→20:21)
[2017-06-03] MEDS ORDERED: ACETAMINOPHEN 325 MG TAB PO ONE (14:45)
[2017-06-03] MEDS: ACYCLOVIR 200 MG CAP PO SCH ×2 (15:15→20:21)
[2017-06-03] MEDS: FLUCONAZOLE 400 MG PREMIX BAG 200 ML IV SCH (17:20)
[2017-06-03] MEDS: LIDOCAINE VISCOUS 2% SOLN 15 ML UDC SWISH-SPIT PRN (20:21)
[2017-06-03] MEDS: MELATONIN 5 MG TAB PO PRN (23:04)
[2017-06-04] VITALS (13 sets, daily range): BP systolic 109–165; BP diastolic 45–94; PULSE 61–110; RESP 16–20; TEMP 97.3–99.5; O2SAT 93–98
[2017-06-04] MEDS: ACETAMINOPHEN 325 MG TAB PO PRN ×4 (03:24→19:19)
[2017-06-04 04:12] LABS: HEMATOCRIT 22.1 % (35.0-46.0); HEMOGLOBIN 7.6 GM/DL (11.6-15.3); MEAN CELL VOLUME 84.7 FL (80.0-100.0); MEAN CORPUSCULAR HGB CONC 34.2 % (32.0-36.0); MEAN PLATELET VOLUME 7.5 FL (7.0-11.0); RED BLOOD COUNT 2.61 MIL/MM3 (4.00-5.30); RED CELL DISTRIBUTION WIDTH 16.1 % (11.6-17.2); WHITE BLOOD COUNT 0.1 TH/MM3 (4.0-11.0)
[2017-06-04 04:20] LABS: PLATELET COUNT 9 TH/MM3 (150-450)
[2017-06-04 04:39] LABS: ALBUMIN 2.8 GM/DL (3.4-5.0); ALT (GPT) 21 U/L (10-53); AST (GOT) 7 U/L (15-37); BICARBONATE 25.8 MEQ/L (21.0-32.0); BLOOD UREA NITROGEN 8 MG/DL (7-18); CALCIUM 8.4 MG/DL (8.5-10.1); CHLORIDE 103 MEQ/L (98-107); CREATININE 0.48 MG/DL (0.50-1.00); GLOMERULAR FILTRATION RATE 132 ML/MIN (>89); GLUCOSE,RANDOM 114 MG/DL (74-106); SODIUM (NA) 137 MEQ/L (136-145)
[2017-06-04 04:40] LABS: ALKALINE PHOSPHATASE 56 U/L (45-117); TOTAL BILIRUBIN ADULT 1.1 MG/DL (0.2-1.0); TOTAL PROTEIN 6.5 GM/DL (6.4-8.2)
[2017-06-04] MEDS: diphenhydrAMINE HCL 50 MG/ML VIAL IV PUSH PRN ×2 (05:39→09:33)
[2017-06-04] MEDS: AZTREONAM INJ 2,000 MG in SODIUM CHLORIDE 0.9% INJ 100 ML IV SCH ×3 (05:39→23:03)
[2017-06-04] MEDS: ACYCLOVIR 200 MG CAP PO SCH ×3 (05:39→22:55)
[2017-06-04] MEDS ORDERED: diphenhydrAMINE HCL 25 MG CAP PO PRN (07:30)
[2017-06-04] MEDS ORDERED: SODIUM CHLOR 0.9% 250 ML INJ 250 ML IV ONE (07:30)
[2017-06-04 07:51] LABS: LYMPHOCYTES 90 % (9-44); MONOCYTES 10 % (0-8)
[2017-06-04] MEDS: NYSTAT/DIPHENHY/LIDO MOUTHWASH (Adult) 120ML SWISH-SWAL SCH ×4 (08:04→20:50)
[2017-06-04] MEDS: LOSARTAN 50 MG TAB PO SCH (08:05)
[2017-06-04] MEDS: CARVEDILOL 3.125 MG TAB PO SCH (08:05)
[2017-06-04] MEDS: [UNRECOGNIZED DRUG - OTHER] PO SCH ×2 (08:05→21:00)
[2017-06-04] MEDS: amLODIPine BESYLATE 5 MG TAB PO SCH (08:05)
[2017-06-04] MEDS: HYDROCHLOROTHIAZIDE 25 MG TAB PO SCH (08:05)
[2017-06-04] MEDS: SODIUM CHLORIDE 0.9% FLUSH 10 ML FLUSH IV FLUSH PRN (08:09)
[2017-06-04] MEDS: DOCUSATE SODIUM 100 MG CAP PO SCH (09:00)
--- NOTE | 2017-06-04 09:29 | PD.ONC.PN ---
Subjective Subjective Remarks Tmax 101.2 overnight. Patient resting in bed. Complaining of headache since taking benadryl this AM. still has sore throat. Objective Data Date Time Temp Pulse Resp B/P (MAP) Pulse Ox O2 Delivery O2 Flow Rate FiO2 06/04/17 09:16 98.4 86 16 111/72 (85) 94 06/04/17 06:00 98.6 06/04/17 03:19 99.0 110 18 165/94 (117) 95 06/03/17 23:03 98.2 88 16 108/66 (80) 96 06/03/17 20:25 94 06/03/17 19:45 101.2 92 16 115/66 (82) 99 06/03/17 16:13 99.3 90 16 112/72 (85) 96 06/03/17 11:11 98.8 95 16 99/52 95 06/03/17 10:46 98.2 86 16 112/75 95 06/04/17 06/04/17 06/04/17 07:00 15:00 23:00 Intake Total 1251 ml Output Total 2000 ml Balance -749 ml Result Diagram: 06/04/17 0320 06/04/17 0320 Laboratory Results Laboratory Tests Test 06/04/17 03:20 White Blood Count 0.1 TH/MM3 Red Blood Count 2.61 MIL/MM3 Hemoglobin 7.6 GM/DL Hematocrit 22.1 % Mean Corpuscular Volume 84.7 FL Mean Corpuscular Hemoglobin 29.0 PG Mean Corpuscular Hemoglobin Concent 34.2 % Red Cell Distribution Width 16.1 % Platelet Count 9 TH/MM3 Mean Platelet Volume 7.5 FL CBC Comment AUTO DIFF Differential Total Cells Counted 10 Lymphocytes % 90 % Monocytes % 10 % Neutrophils # (Manual) 0.0 TH/MM3 Differential Comment FINAL DIFF MANUAL Platelet Estimate RARE Platelet Morphology Comment NORMAL Blood Urea Nitrogen 8 MG/DL Creatinine 0.48 MG/DL Random Glucose 114 MG/DL Total Protein 6.5 GM/DL Albumin 2.8 GM/DL Calcium Level 8.4 MG/DL Alkaline Phosphatase 56 U/L Aspartate Amino Transf (AST/SGOT) 7 U/L Alanine Aminotransferase (ALT/SGPT) 21 U/L Total Bilirubin 1.1 MG/DL Sodium Level 137 MEQ/L Potassium Level 3.8 MEQ/L Chloride Level 103 MEQ/L Carbon Dioxide Level 25.8 MEQ/L Anion Gap 8 MEQ/L Estimat Glomerular Filtration Rate 132 ML/MIN Culture Results Microbiology Date/Time Source Procedure Growth Status 06/02/17 21:47 Blood Peripheral Aerobic Blood Culture - Preliminary NO GROWTH IN 1 DAY Resulted 06/02/17 21:47 Blood Peripheral Anaerobic Blood Culture - Preliminary NO GROWTH IN 1 DAY Resulted 06/02/17 21:44 Blood Peripheral Aerobic Blood Culture - Preliminary NO GROWTH IN 1 DAY Resulted 06/02/17 21:44 Blood Peripheral Anaerobic Blood Culture - Preliminary NO GROWTH IN 1 DAY Resulted Administered Medications Medications (Trade) Dose Ordered Sig/Zeynep Route PRN Reason Start Time Stop Time Status Last Admin Dose Admin Amlodipine Besylate (Norvasc) 5 mg DAILY PO 05/24/17 09:00 06/04/17 08:05 Losartan Potassium (Cozaar) 100 mg DAILY PO 05/24/17 09:00 06/04/17 08:05 Melatonin (Melatonin) 5 mg HS PRN PO insomnia 05/24/17 08:30 06/03/17 23:04 Hydrochlorothiazide (Hydrodiuril) 25 mg DAILY PO 05/24/17 09:00 06/04/17 08:05 Acetaminophen (Tylenol) 650 mg Q4H PRN PO fever>100.4 05/24/17 08:45 06/04/17 03:24 Oxycodone HCl (Roxicodone) 5 mg Q4H PRN PO pain>5 05/24/17 12:15 06/03/17 20:41 Patient Own Medication PT OWN MED: RYDAPT (MIDOSTAUR... BID PO 05/31/17 09:00 06/13/17 21:01 06/04/17 08:05 Multi-Ingredient Mouthwash/Gargle (Magic Mouthwash Adult Liq) 5 ml QID SWISH-SWAL 05/24/17 13:00 06/04/17 08:04 Docusate Sodium (Colace) 100 mg DAILY PO 05/26/17 11:00 05/30/17 08:30 Magnesium Hydroxide (Milk Of Magnesia Liq) 30 ml DAILY PRN PO MILD - MODERATE CONSTIPATION 05/26/17 11:00 05/26/17 11:22 Sodium Chloride (NS Flush) 5 ml UNSCH PRN IV FLUSH SEE PROTOCOL TABLE 05/28/17 14:00 06/04/17 08:09 Heparin Sodium (Porcine) (Heparin Central Flush) 250 units UNSCH PRN IV FLUSH SEE PROTOCOL TABLE 05/28/17 14:00 05/29/17 04:51 Vancomycin HCl 1000 mg/Sodium Chloride 250 ml @ 250 mls/hr Q12H IV 05/31/17 08:00 06/03/17 20:00 Promethazine HCl (Phenergan Inj) 12.5 mg Q4H PRN IV-CENTRAL nausea/vomiting 05/31/17 09:30 06/03/17 20:20 Carvedilol (Coreg) 3.125 mg DAILY PO 06/01/17 09:00 06/04/17 08:05 Aztreonam 2000 mg/ Sodium Chloride 100 ml @ 200 mls/hr Q8H IV 06/01/17 14:00 06/04/17 05:39 Diphenhydramine HCl (Benadryl Inj) 25 mg Q4H PRN IV PUSH SEE LABEL COMMENTS 06/02/17 22:30 06/04/17 05:39 Sodium Chloride 1,000 ml @ 100 mls/hr Q10H IV 06/03/17 10:00 06/03/17 23:06 Fluconazole/ Sodium Chloride 200 ml @ 100 mls/hr Q24H IV 06/03/17 15:00 06/03/17 17:20 Lidocaine HCl (Xylocaine 2% Viscous) 15 ml Q4H PRN SWISH-SPIT mouth pain 06/03/17 15:00 06/03/17 20:21 Acyclovir (Zovirax) 400 mg Q8HR PO 06/03/17 15:15 06/04/17 05:39 Sodium Chloride 250 ml @ 15 mls/hr ONCE ONCE IV 06/04/17 07:30 06/05/17 00:09 06/04/17 08:09 Objective Remarks GENERAL: Fatigued, ill female, lying supine in bed with eyes closed. SKIN: Warm and dry. HEAD: Normocephalic. EYES: No injection or drainage. MOUTH: multiple oral ulcers. NECK: Supple, trachea midline. CARDIOVASCULAR: Regular rate and rhythm RESPIRATORY: Breath sounds equal bilaterally. No accessory muscle use. GASTROINTESTINAL: Abdomen soft, non-tender, nondistended. EXTREMITIES: No cyanosis. no edema. NEUROLOGICAL: awake and alert. able to move all extremities. normal speech. Assessment/Plan Problem List: (1) Neutropenic fever ICD Codes: D70.9 - Neutropenia, unspecified; R50.81 - Fever presenting with conditions classified elsewhere Status: Acute Plan: --On Vanco + Azactam + Diflucan + Acyclovir. --BC + Klebsiella pneumoniae CT chest/abdomen pelvis show no nidus for infection. 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 tolerated D1 05/25: D2. monitor CBC, bilirubin. 05/26: D3. Tolerating chemotherapy. Add on daily stool softener with prn milk of magnesia for constipation. Monitor CBC. 05/27: D4. Continue chemotherapy. Transfuse 1 unit irradiated packed red blood cells for hemoglobin of 7.5 as her counts are trending down. Monitor CBC, CMP. 05.28: D5. tolerating chemo. no transfusion needed at present. 05/29: D6. chemo complete yesterday. give 2 units pRBC today 05/30. D7. no blood transfusion. monitor. 05/31. D8. +fever. start Vanco/Azactam. obtain BC. obtain CT. 06/01: D9. continue Vanco/Azactam. resume Coreg. 06/03: D11: continue antibiotics. supportive care (3) Hypertension ICD Codes: I10 - Essential (primary) hypertension Status: Chronic Plan: --on home medications. -- Stable (4) Stomatitis ICD Codes: K12.1 - Other forms of stomatitis Plan: --d/t chemotherapy --on magic mouthwash. Assessment 57y/o female admitted for salvage chemotherapy for relapse of acute myeloid leukemia, FLT3 positive. h/o Rheumatoid arthritis. Anxiety disorder. COPD. Depression. Hypercholesterolemia. Hypertension. Irregular heart beat. History of AML (brought forward from initial consult for continuity of care): diagnosed with acute myeloid leukemia in August of last year. She had a normal chromosome 46 XX, but the FLT3 was positive and NPM1 was negative. She was treated with induction chemotherapy with cytarabine and daunorubicin 7+3, which failed to put her into remission. Subsequently she was treated with CLAG chemotherapy with Rydapt and she finally went into remission. The patient subsequently had first dose of high dose Zuleyka-C consolidation chemotherapy last November. She was referred to [facility] for bone marrow transplant. Prior to the transplant, she had a repeat bone marrow biopsy in February. This showed that she had relapsed. It was recommended for the patient to have Dacogen chemotherapy for two cycles and repeat the bone marrow biopsy. The patient had the repeat bone marrow biopsy on May 14 which showed persistent leukemia with 37% blasts. The chromosomes came back normal at 46 XX but the FLT3 is still positive Plan 1. continue antibiotics + diflucan and acyclovir 2. continue IV fluids, tylenol, anti-emetics, oxycodone for pain. Attending Statement The exam, history, and the medical decision-making described in the above note were completed with the assistance of the mid-level provider. I reviewed and agree with the findings presented. I attest that I had a [id number] encounter with the patient on the same day, and personally performed and documented my assessment and findings in the medical record. Pancytopenic, febrile over night. Feels tired this AM. Denies any bleeding. Transfuse RBC and platelets. Cont Rydapt. Continue support expect cytopenia until next week. Problem Qualifiers (1) Hypertension: Qualified Codes: I10 - Essential (primary) hypertension Julianna Mcdaniel Jun 04, 2017 09:29 Elsi Levin MD Jun 04, 2017 22:19
[2017-06-04] MEDS: PROMETHAZINE INJ 25 MG/ML VIAL IV-CENTRAL PRN ×2 (09:33→20:50)
[2017-06-04] MEDS: VANCOMYCIN 1,000 MG/NS 250 ML IV SCH ×4 (11:19→23:00)
--- NOTE | 2017-06-04 12:40 | HHI.IDPN ---
Note Infectious Disease Note Patient states that she has severe HOOPER at the top of the head. Also notes nausea. No appetite. No diarrhea. No SOB. Low grade temps. Repeat blood culture has no growth in 2 days. Patient with acute myeloid leukemia, FLT3 positive. She was admitted for salvage chemotherapy on 05/24/2017. PAST MEDICAL HISTORY 1. Hypertension. 2. Hypercholesteremia. 3. COPD. 4. Rheumatoid arthritis. 5. Depression. 6. Anxiety disorder. PAST SURGICAL HISTORY 1. Cholecystectomy. 2. Nvajvr-H-Hnvj placement. 3. Complete hysterectomy. 4. Colon resection. ALLERGIES 1. SULFA. 2. CEFEPIME. 3. LATEX. ANTIBIOTICS 1. Aztreonam. 2. Vancomycin. 3. Diflucan. Current Medications Medications (Trade) Dose Ordered Sig/Zeynep Route PRN Reason Start Time Stop Time Status Last Admin Dose Admin Amlodipine Besylate (Norvasc) 5 mg DAILY PO 05/24/17 09:00 06/04/17 08:05 Losartan Potassium (Cozaar) 100 mg DAILY PO 05/24/17 09:00 06/04/17 08:05 Melatonin (Melatonin) 5 mg HS PRN PO insomnia 05/24/17 08:30 06/03/17 23:04 Hydrochlorothiazide (Hydrodiuril) 25 mg DAILY PO 05/24/17 09:00 06/04/17 08:05 Acetaminophen (Tylenol) 650 mg Q4H PRN PO fever>100.4 05/24/17 08:45 06/04/17 03:24 Oxycodone HCl (Roxicodone) 5 mg Q4H PRN PO pain>5 05/24/17 12:15 06/03/17 20:41 Patient Own Medication PT OWN MED: RYDAPT (MIDOSTAUR... BID PO 05/31/17 09:00 06/13/17 21:01 06/04/17 08:05 Multi-Ingredient Mouthwash/Gargle (Magic Mouthwash Adult Liq) 5 ml QID SWISH-SWAL 05/24/17 13:00 06/04/17 08:04 Docusate Sodium (Colace) 100 mg DAILY PO 05/26/17 11:00 05/30/17 08:30 Magnesium Hydroxide (Milk Of Magnesia Liq) 30 ml DAILY PRN PO MILD - MODERATE CONSTIPATION 05/26/17 11:00 05/26/17 11:22 Sodium Chloride (NS Flush) 5 ml UNSCH PRN IV FLUSH SEE PROTOCOL TABLE 05/28/17 14:00 06/04/17 08:09 Heparin Sodium (Porcine) (Heparin Central Flush) 250 units UNSCH PRN IV FLUSH SEE PROTOCOL TABLE 05/28/17 14:00 05/29/17 04:51 Heparin Sodium (Porcine) (Heparin Central Flush) 500 units UNSCH IV FLUSH 05/28/17 14:00 Vancomycin HCl 1000 mg/Sodium Chloride 250 ml @ 250 mls/hr Q12H IV 05/31/17 08:00 06/04/17 11:19 Promethazine HCl (Phenergan Inj) 12.5 mg Q4H PRN IV-CENTRAL nausea/vomiting 05/31/17 09:30 06/04/17 09:33 Carvedilol (Coreg) 3.125 mg DAILY PO 06/01/17 09:00 06/04/17 08:05 Aztreonam 2000 mg/ Sodium Chloride 100 ml @ 200 mls/hr Q8H IV 06/01/17 14:00 06/04/17 05:39 [place]/ Glycerin (Tucks Pads) 1 applic UNSCH PRN TOPICAL HEMORRHOIDS 06/01/17 19:30 Diphenhydramine HCl (Benadryl Inj) 25 mg Q4H PRN IV PUSH SEE LABEL COMMENTS 06/02/17 22:30 06/04/17 09:33 Sodium Chloride 1,000 ml @ 100 mls/hr Q10H IV 06/03/17 10:00 06/03/17 23:06 Fluconazole/ Sodium Chloride 200 ml @ 100 mls/hr Q24H IV 06/03/17 15:00 06/03/17 17:20 Lidocaine HCl (Xylocaine 2% Viscous) 15 ml Q4H PRN SWISH-SPIT mouth pain 06/03/17 15:00 06/03/17 20:21 Acyclovir (Zovirax) 400 mg Q8HR PO 06/03/17 15:15 06/04/17 05:39 Sodium Chloride 250 ml @ 15 mls/hr ONCE ONCE IV 06/04/17 07:30 06/05/17 00:09 06/04/17 08:09 Acetaminophen (Tylenol) 650 mg Q4H PRN PO SEE LABEL COMMENTS 06/04/17 07:30 06/04/17 23:59 06/04/17 09:34 Diphenhydramine HCl (Benadryl) 25 mg Q4H PRN PO SEE LABEL COMMENTS 06/04/17 07:30 06/04/17 23:59 OBJECTIVE: Vital Signs Date Time Temp Pulse Resp B/P (MAP) Pulse Ox O2 Delivery O2 Flow Rate FiO2 06/04/17 10:30 99.4 88 16 113/59 93 06/04/17 10:08 99.5 91 16 142/81 96 06/04/17 09:16 98.4 86 16 111/72 (85) 94 06/04/17 07:58 98.4 86 16 111/72 (85) 94 06/04/17 06:00 98.6 06/04/17 03:19 99.0 110 18 165/94 (117) 95 06/03/17 23:03 98.2 88 16 108/66 (80) 96 06/03/17 20:25 94 06/03/17 19:45 101.2 92 16 115/66 (82) 99 06/03/17 16:13 99.3 90 16 112/72 (85) 96 Laboratory Tests Test 06/03/17 05:50 06/04/17 03:20 White Blood Count 0.1 TH/MM3 0.1 TH/MM3 Red Blood Count 2.88 MIL/MM3 2.61 MIL/MM3 Hemoglobin 8.2 GM/DL 7.6 GM/DL Hematocrit 24.6 % 22.1 % Mean Corpuscular Volume 85.2 FL 84.7 FL Mean Corpuscular Hemoglobin 28.5 PG 29.0 PG Mean Corpuscular Hemoglobin Concent 33.4 % 34.2 % Red Cell Distribution Width 16.5 % 16.1 % Platelet Count 6 TH/MM3 9 TH/MM3 Mean Platelet Volume 9.9 FL 7.5 FL CBC Comment AUTO DIFF AUTO DIFF Differential Total Cells Counted 10 10 Lymphocytes % 100 % 90 % Neutrophils # (Manual) 0.0 TH/MM3 0.0 TH/MM3 Differential Comment FINAL DIFF MANUAL FINAL DIFF MANUAL Platelet Estimate RARE RARE Platelet Morphology Comment NORMAL NORMAL Red Cell Morphology Comment NORMAL Monocytes % 10 % Laboratory Tests Test 06/03/17 05:50 06/04/17 03:20 Blood Urea Nitrogen 8 MG/DL 8 MG/DL Creatinine 0.50 MG/DL 0.48 MG/DL Random Glucose 88 MG/DL 114 MG/DL Total Protein 6.4 GM/DL 6.5 GM/DL Albumin 2.7 GM/DL 2.8 GM/DL Calcium Level 8.6 MG/DL 8.4 MG/DL Alkaline Phosphatase 52 U/L 56 U/L Aspartate Amino Transf (AST/SGOT) 7 U/L 7 U/L Alanine Aminotransferase (ALT/SGPT) 24 U/L 21 U/L Total Bilirubin 1.0 MG/DL 1.1 MG/DL Sodium Level 139 MEQ/L 137 MEQ/L Potassium Level 4.4 MEQ/L 3.8 MEQ/L Chloride Level 106 MEQ/L 103 MEQ/L Carbon Dioxide Level 23.8 MEQ/L 25.8 MEQ/L Anion Gap 9 MEQ/L 8 MEQ/L Estimat Glomerular Filtration Rate 126 ML/MIN 132 ML/MIN Microbiology Date/Time Source Procedure Growth Status 06/02/17 21:47 Blood Peripheral Aerobic Blood Culture - Preliminary NO GROWTH IN 2 DAYS Resulted 06/02/17 21:47 Blood Peripheral Anaerobic Blood Culture - Preliminary NO GROWTH IN 2 DAYS Resulted 06/02/17 21:44 Blood Peripheral Aerobic Blood Culture - Preliminary NO GROWTH IN 2 DAYS Resulted 06/02/17 21:44 Blood Peripheral Anaerobic Blood Culture - Preliminary NO GROWTH IN 2 DAYS Resulted Microbiology Date/Time Source Procedure Growth Status 05/31/17 05:20 Blood Peripheral Aerobic Blood Culture - Final Klebsiella Pneumoniae Resulted 05/31/17 05:20 Blood Peripheral Anaerobic Blood Culture - Preliminary NO GROWTH IN 2 DAYS Resulted 05/31/17 04:15 Blood Line Aerobic Blood Culture - Final Citrobacter Youngae Complete 05/31/17 04:15 Anaerobic Blood Culture - Final Klebsiella Pneumoniae Complete 05/31/17 04:50 Urine Clean Catch Urine Culture - Final 50-100,000 CFU/ML MIXED SHANTE... Complete IMAGING: Chest X-Ray 05/31/17 0441 Signed Impressions: Service Date/Time: Wednesday, May 31, 2017 05:09 - CONCLUSION: The lungs are clear. Troy Clarke MD Chest CT 05/31/17 0000 Signed Impressions: Service Date/Time: Wednesday, May 31, 2017 17:30 - CONCLUSION: 1. No focal consolidation or effusion to suggest infection. No adenopathy. [id number] in superior vena cava. Jacinto Tello MD Abdomen/Pelvis CT 05/31/17 0000 Signed Impressions: Service Date/Time: Wednesday, May 31, 2017 17:30 - CONCLUSION: 1. Diffuse hepatic fatty infiltration. 2. Similarly, diffuse fatty infiltration/atrophy of the pancreas. 3. 7.6 cm cyst laterally in the left renal cortex. 4. No acute intraperitoneal or pelvic process to explain current clinical symptoms. No significant change from prior. Cristo Hughes MD PHYSICAL EXAMINATION GENERAL: Distressed by HOOPER. Looks a little lethargic. HEENT: The head is atraumatic. Extraocular movements grossly intact. Pupils reactive to light. No icterus. No lesions. The mucosa is moist. No thrush. NECK: Supple without adenopathy or swelling. LUNGS: Clear. HEART: Regular S1 and S2 without murmurs, rubs or gallops. ABDOMEN: Bowel sounds present. Soft, obese, nontender. EXTREMITIES: No clubbing, cyanosis or edema. SKIN: No rash. NEUROLOGIC: Non focal. PSYCHIATRIC: Calm and cooperative. IMPRESSION 1. Bacteremia. Klebsiella. 2. Febrile neutropenia/pancytopenia. Recurring fever. 3. Acute myeloid leukemia. Receiving chemo yesterday. pill form. RECOMMENDATIONS 1. Continue Aztreonam. 2. Continue vancomycin. 3. Continue Diflucan in light of persistent fever. 4. Monitor temperature and the repeat blood cultures. 5. Monitor blood counts. 6. Monitor clinical status. Jim Grande MD Jun 04, 2017 12:40
[2017-06-04] MEDS: SODIUM CHLOR 0.9% 1000 ML INJ 1,000 ML IV SCH ×2 (12:47→19:03)
[2017-06-04] MEDS: FLUCONAZOLE 400 MG PREMIX BAG 200 ML IV SCH (15:19)
[2017-06-04] MEDS ORDERED: CARVEDILOL 3.125 MG TAB PO ONE (15:45)
--- NOTE | 2017-06-04 16:14 | RADRPT ---
EXAM DATE/TIME: 06/04/2017 16:02 [facility] COMPARISON: CT BRAIN W/O CONTRAST, December 01, 2016, 13:17. INDICATIONS : Headache with thrombocytopenia. RADIATION DOSE: 41.26 CTDIvol (mGy) ; Tabletop CT Head MEDICAL HISTORY : Cardiovascular disease. Hypertension. Gastroesophageal reflux disease.Lupus, RA,Leukenia, on chemo SURGICAL HISTORY : Cholecystectomy. Tubal ligation.Hysterectomy. ENCOUNTER: Initial ACUITY: 1 day PAIN SCALE: 9/10 LOCATION: Bilateral cranial TECHNIQUE: Multiple contiguous axial images were obtained of the head. Using automated exposure control and adj ustment of the mA and/or kV according to patient size, radiation dose was kept as low as reasonably a chievable to obtain optimal diagnostic quality images. DICOM format image data is available electro nically for review and comparison. FINDINGS: CEREBRUM: The ventricles are normal for age. No evidence of midline shift, mass lesion, hemorrhage or acute in farction. No extra-axial fluid collections are seen. POSTERIOR FOSSA: The cerebellum and brainstem are intact. The 4th ventricle is midline. The cerebellopontine angle i s unremarkable. EXTRACRANIAL: The visualized portion of the orbits is intact. SKULL: The calvaria is intact. No evidence of skull fracture. CONCLUSION: Normal examination for a patient of this age. No significant change has occurred. Alcides Longoria MD on June 04, 2017 at 16:11 Board Certified Radiologist. This report was verified electronically.
[2017-06-04] MEDS: diphenhydrAMINE HCL 25 MG CAP PO PRN (17:57)
[2017-06-05] VITALS (9 sets, daily range): BP systolic 104–148; BP diastolic 63–85; PULSE 85–100; RESP 16–20; TEMP 98.4–101.8; O2SAT 96–99
[2017-06-05] MEDS: ACETAMINOPHEN 325 MG TAB PO PRN ×5 (00:05→23:11)
[2017-06-05] MEDS: NYSTAT/DIPHENHY/LIDO MOUTHWASH (Adult) 120ML SWISH-SWAL SCH ×4 (04:31→20:23)
[2017-06-05] MEDS: SODIUM CHLOR 0.9% 1000 ML INJ 1,000 ML IV SCH ×3 (05:03→23:11)
[2017-06-05] MEDS: AZTREONAM INJ 2,000 MG in SODIUM CHLORIDE 0.9% INJ 100 ML IV SCH ×3 (05:28→21:39)
[2017-06-05] MEDS: ACYCLOVIR 200 MG CAP PO SCH ×3 (05:28→21:38)
[2017-06-05 07:11] LABS: HEMATOCRIT 22.5 % (35.0-46.0); HEMOGLOBIN 7.8 GM/DL (11.6-15.3); MEAN CELL VOLUME 83.5 FL (80.0-100.0); MEAN CORPUSCULAR HEMOGLOBIN 28.9 PG (27.0-34.0); MEAN CORPUSCULAR HGB CONC 34.6 % (32.0-36.0); MEAN PLATELET VOLUME 8.1 FL (7.0-11.0); PLATELET COUNT 22 TH/MM3 (150-450); RED CELL DISTRIBUTION WIDTH 15.7 % (11.6-17.2); WHITE BLOOD COUNT 0.1 TH/MM3 (4.0-11.0)
[2017-06-05 07:37] LABS: ALBUMIN 2.8 GM/DL (3.4-5.0); AST (GOT) 8 U/L (15-37); BICARBONATE 26.8 MEQ/L (21.0-32.0); BLOOD UREA NITROGEN 8 MG/DL (7-18); CALCIUM 9.2 MG/DL (8.5-10.1); CHLORIDE 102 MEQ/L (98-107); CREATININE 0.37 MG/DL (0.50-1.00); GLOMERULAR FILTRATION RATE 179 ML/MIN (>89); GLUCOSE,RANDOM 110 MG/DL (74-106); SODIUM (NA) 138 MEQ/L (136-145)
[2017-06-05 07:38] LABS: ALT (GPT) 22 U/L (10-53)
[2017-06-05 07:40] LABS: ALKALINE PHOSPHATASE 61 U/L (45-117); TOTAL BILIRUBIN ADULT 2.2 MG/DL (0.2-1.0); TOTAL PROTEIN 6.5 GM/DL (6.4-8.2)
[2017-06-05 08:07] LABS: LYMPHOCYTES 90 % (9-44); POLYS (SEG NEUTROPHILS) 10 % (16-70)
[2017-06-05] MEDS: LIDOCAINE VISCOUS 2% SOLN 15 ML UDC SWISH-SPIT PRN (09:09)
[2017-06-05] MEDS: DOCUSATE SODIUM 100 MG CAP PO SCH (09:10)
[2017-06-05] MEDS: VANCOMYCIN 1,000 MG/NS 250 ML IV SCH ×4 (09:11→20:24)
[2017-06-05] MEDS: CARVEDILOL 6.25 MG TAB PO SCH (09:13)
[2017-06-05] MEDS: amLODIPine BESYLATE 5 MG TAB PO SCH (09:13)
[2017-06-05] MEDS: LOSARTAN 50 MG TAB PO SCH (09:13)
[2017-06-05] MEDS: HYDROCHLOROTHIAZIDE 25 MG TAB PO SCH (09:13)
[2017-06-05] MEDS: [UNRECOGNIZED DRUG - OTHER] PO SCH ×2 (09:14→20:23)
--- NOTE | 2017-06-05 10:02 | PD.ONC.PN ---
Subjective Subjective Remarks Tmax 100.1 overnight Patient reports her headache is mildly improved Reports that she had horrible nausea last night Asking for a salve to put on her lip lesion Objective Data Date Time Temp Pulse Resp B/P (MAP) Pulse Ox O2 Delivery O2 Flow Rate FiO2 06/05/17 06:28 16 06/05/17 05:00 100.1 98 20 146/75 (98) 96 06/05/17 04:01 85 06/05/17 00:08 91 06/04/17 23:13 98.5 94 17 131/93 (106) 96 06/04/17 20:45 98.5 87 20 132/94 (107) 98 06/04/17 20:09 83 06/04/17 19:15 99.1 85 16 118/ 97 06/04/17 18:56 99.1 85 16 109/65 96 06/04/17 17:00 97.3 88 18 116/66 (83) 95 06/04/17 15:38 98.2 61 20 113/45 (67) 96 06/04/17 10:30 99.4 88 16 113/59 93 06/04/17 10:08 99.5 91 16 142/81 96 06/05/17 06/05/17 06/05/17 07:00 15:00 23:00 Intake Total 720 ml Output Total 725 ml Balance -5 ml Result Diagram: 06/05/1745 06/05/17 0645 Laboratory Results Laboratory Tests Test 06/05/17 06:45 White Blood Count 0.1 TH/MM3 Red Blood Count 2.70 MIL/MM3 Hemoglobin 7.8 GM/DL Hematocrit 22.5 % Mean Corpuscular Volume 83.5 FL Mean Corpuscular Hemoglobin 28.9 PG Mean Corpuscular Hemoglobin Concent 34.6 % Red Cell Distribution Width 15.7 % Platelet Count 22 TH/MM3 Mean Platelet Volume 8.1 FL CBC Comment AUTO DIFF Differential Total Cells Counted 10 Neutrophils % (Manual) 10 % Lymphocytes % 90 % Neutrophils # (Manual) 0.0 TH/MM3 Differential Comment FINAL DIFF MANUAL Platelet Estimate LOW Platelet Morphology Comment NORMAL Blood Urea Nitrogen 8 MG/DL Creatinine 0.37 MG/DL Random Glucose 110 MG/DL Total Protein 6.5 GM/DL Albumin 2.8 GM/DL Calcium Level 9.2 MG/DL Alkaline Phosphatase 61 U/L Aspartate Amino Transf (AST/SGOT) 8 U/L Alanine Aminotransferase (ALT/SGPT) 22 U/L Total Bilirubin 2.2 MG/DL Sodium Level 138 MEQ/L Potassium Level 3.2 MEQ/L Chloride Level 102 MEQ/L Carbon Dioxide Level 26.8 MEQ/L Anion Gap 9 MEQ/L Estimat Glomerular Filtration Rate 179 ML/MIN Culture Results Microbiology Date/Time Source Procedure Growth Status 06/02/17 21:47 Blood Peripheral Aerobic Blood Culture - Preliminary NO GROWTH IN 2 DAYS Resulted 06/02/17 21:47 Blood Peripheral Anaerobic Blood Culture - Preliminary NO GROWTH IN 2 DAYS Resulted 06/02/17 21:44 Blood Peripheral Aerobic Blood Culture - Preliminary NO GROWTH IN 2 DAYS Resulted 06/02/17 21:44 Blood Peripheral Anaerobic Blood Culture - Preliminary NO GROWTH IN 2 DAYS Resulted Administered Medications Medications (Trade) Dose Ordered Sig/Zeynep Route PRN Reason Start Time Stop Time Status Last Admin Dose Admin Amlodipine Besylate (Norvasc) 5 mg DAILY PO 05/24/17 09:00 06/05/17 09:13 Losartan Potassium (Cozaar) 100 mg DAILY PO 05/24/17 09:00 06/05/17 09:13 Melatonin (Melatonin) 5 mg HS PRN PO insomnia 05/24/17 08:30 06/03/17 23:04 Hydrochlorothiazide (Hydrodiuril) 25 mg DAILY PO 05/24/17 09:00 06/05/17 09:13 Acetaminophen (Tylenol) 650 mg Q4H PRN PO fever>100.4 or premedication 05/24/17 08:45 06/05/17 05:28 Oxycodone HCl (Roxicodone) 5 mg Q4H PRN PO pain>5 05/24/17 12:15 06/03/17 20:41 Patient Own Medication PT OWN MED: RYDAPT (MIDOSTAUR... BID PO 05/31/17 09:00 06/13/17 21:01 06/05/17 09:14 Multi-Ingredient Mouthwash/Gargle (Magic Mouthwash Adult Liq) 5 ml QID SWISH-SWAL 05/24/17 13:00 06/05/17 09:09 Docusate Sodium (Colace) 100 mg DAILY PO 05/26/17 11:00 06/05/17 09:10 Magnesium Hydroxide (Milk Of Magnesia Liq) 30 ml DAILY PRN PO MILD - MODERATE CONSTIPATION 05/26/17 11:00 05/26/17 11:22 Sodium Chloride (NS Flush) 5 ml UNSCH PRN IV FLUSH SEE PROTOCOL TABLE 05/28/17 14:00 06/04/17 08:09 Heparin Sodium (Porcine) (Heparin Central Flush) 250 units UNSCH PRN IV FLUSH SEE PROTOCOL TABLE 05/28/17 14:00 05/29/17 04:51 Vancomycin HCl 1000 mg/Sodium Chloride 250 ml @ 250 mls/hr Q12H IV 05/31/17 08:00 06/05/17 09:11 Promethazine HCl (Phenergan Inj) 12.5 mg Q4H PRN IV-CENTRAL nausea/vomiting 05/31/17 09:30 06/04/17 20:50 Aztreonam 2000 mg/ Sodium Chloride 100 ml @ 200 mls/hr Q8H IV 06/01/17 14:00 06/05/17 05:28 Sodium Chloride 1,000 ml @ 100 mls/hr Q10H IV 06/03/17 10:00 06/04/17 12:47 Fluconazole/ Sodium Chloride 200 ml @ 100 mls/hr Q24H IV 06/03/17 15:00 06/04/17 15:19 Lidocaine HCl (Xylocaine 2% Viscous) 15 ml Q4H PRN SWISH-SPIT mouth pain 06/03/17 15:00 06/05/17 09:09 Acyclovir (Zovirax) 400 mg Q8HR PO 06/03/17 15:15 06/04/17 22:55 Carvedilol (Coreg) 6.25 mg DAILY PO 06/05/17 09:00 06/05/17 09:13 Diphenhydramine HCl (Benadryl) 25 mg Q4H PRN PO premedication for blood produc 06/04/17 16:00 06/04/17 17:57 Objective Remarks GENERAL: Older ill appearing female resting in bed. She has a wash rag over her head. SKIN: Warm and dry. HEAD: Normocephalic. EYES: No injection or drainage. MOUTH: Multiple oral ulcers. NECK: Supple, trachea midline. CARDIOVASCULAR: Regular rate and rhythm RESPIRATORY: Breath sounds equal bilaterally. No accessory muscle use. GASTROINTESTINAL: Abdomen soft, non-tender, nondistended. EXTREMITIES: No cyanosis. no edema. NEUROLOGICAL: Awake and alert. Able to move all extremities. Normal speech. Assessment/Plan Assessment 57y/o female admitted for salvage chemotherapy for relapse of acute myeloid leukemia, FLT3 positive. Plan 1. Patient is status post completion of chemotherapy on 05/28. 2. CT of the brain ordered yesterday for complaints of headache negative for bleed 3. Add on IV Compazine for persistent nausea and vomiting 4. Continue Rydapt 5. Most recent blood cultures show no growth 2 days. Continue antibiotics per infectious disease 6. Monitor CBC and transfuse as needed Attending Statement The exam, history, and the medical decision-making described in the above note were completed with the assistance of the mid-level provider. I reviewed and agree with the findings presented. I attest that I had a [id number] encounter with the patient on the same day, and personally performed and documented my assessment and findings in the medical record. currently afebrile and tired. exam is unremarkable and awaiting for recovery of counts. situation discussed with patient and there is little she does not understand. Amina Castellanos Jun 05, 2017 10:02 Jarocho Knight MD Jun 05, 2017 16:59
[2017-06-05] MEDS ORDERED: OXYMETAZOLINE HCL 0.05% 15 ML NASAL SPRAY NASAL PRN (11:00)
--- NOTE | 2017-06-05 11:01 | HHI.IDPN ---
Note Infectious Disease Note Patient no longer has HOOPER at the top of the head but notes pain at left maxilla sinus area. Left eye tears. Vomited x 1. No appetite. No diarrhea. No SOB. Low grade temps. Repeat blood culture negative. Patient with acute myeloid leukemia, FLT3 positive. She was admitted for salvage chemotherapy on 05/24/2017. PAST MEDICAL HISTORY 1. Hypertension. 2. Hypercholesteremia. 3. COPD. 4. Rheumatoid arthritis. 5. Depression. 6. Anxiety disorder. PAST SURGICAL HISTORY 1. Cholecystectomy. 2. Xoqfyi-X-Ravl placement. 3. Complete hysterectomy. 4. Colon resection. ALLERGIES 1. SULFA. 2. CEFEPIME. 3. LATEX. ANTIBIOTICS 1. Aztreonam. 2. Vancomycin. 3. Diflucan. Current Medications Medications (Trade) Dose Ordered Sig/Zeynep Route PRN Reason Start Time Stop Time Status Last Admin Dose Admin Amlodipine Besylate (Norvasc) 5 mg DAILY PO 05/24/17 09:00 06/05/17 09:13 Losartan Potassium (Cozaar) 100 mg DAILY PO 05/24/17 09:00 06/05/17 09:13 Melatonin (Melatonin) 5 mg HS PRN PO insomnia 05/24/17 08:30 06/03/17 23:04 Hydrochlorothiazide (Hydrodiuril) 25 mg DAILY PO 05/24/17 09:00 06/05/17 09:13 Acetaminophen (Tylenol) 650 mg Q4H PRN PO fever>100.4 or premedication 05/24/17 08:45 06/05/17 05:28 Oxycodone HCl (Roxicodone) 5 mg Q4H PRN PO pain>5 05/24/17 12:15 06/03/17 20:41 Patient Own Medication PT OWN MED: RYDAPT (MIDOSTAUR... BID PO 05/31/17 09:00 06/13/17 21:01 06/05/17 09:14 Multi-Ingredient Mouthwash/Gargle (Magic Mouthwash Adult Liq) 5 ml QID SWISH-SWAL 05/24/17 13:00 06/05/17 09:09 Docusate Sodium (Colace) 100 mg DAILY PO 05/26/17 11:00 06/05/17 09:10 Magnesium Hydroxide (Milk Of Magnesia Liq) 30 ml DAILY PRN PO MILD - MODERATE CONSTIPATION 05/26/17 11:00 05/26/17 11:22 Sodium Chloride (NS Flush) 5 ml UNSCH PRN IV FLUSH SEE PROTOCOL TABLE 05/28/17 14:00 06/04/17 08:09 Heparin Sodium (Porcine) (Heparin Central Flush) 250 units UNSCH PRN IV FLUSH SEE PROTOCOL TABLE 05/28/17 14:00 05/29/17 04:51 Heparin Sodium (Porcine) (Heparin Central Flush) 500 units UNSCH IV FLUSH 05/28/17 14:00 Vancomycin HCl 1000 mg/Sodium Chloride 250 ml @ 250 mls/hr Q12H IV 05/31/17 08:00 06/05/17 09:11 Promethazine HCl (Phenergan Inj) 12.5 mg Q4H PRN IV-CENTRAL nausea/vomiting 05/31/17 09:30 06/04/17 20:50 Aztreonam 2000 mg/ Sodium Chloride 100 ml @ 200 mls/hr Q8H IV 06/01/17 14:00 06/05/17 05:28 [place]/ Glycerin (Tucks Pads) 1 applic UNSCH PRN TOPICAL HEMORRHOIDS 06/01/17 19:30 Sodium Chloride 1,000 ml @ 100 mls/hr Q10H IV 06/03/17 10:00 06/04/17 12:47 Fluconazole/ Sodium Chloride 200 ml @ 100 mls/hr Q24H IV 06/03/17 15:00 06/04/17 15:19 Lidocaine HCl (Xylocaine 2% Viscous) 15 ml Q4H PRN SWISH-SPIT mouth pain 06/03/17 15:00 06/05/17 09:09 Acyclovir (Zovirax) 400 mg Q8HR PO 06/03/17 15:15 06/04/17 22:55 Carvedilol (Coreg) 6.25 mg DAILY PO 06/05/17 09:00 06/05/17 09:13 Diphenhydramine HCl (Benadryl) 25 mg Q4H PRN PO premedication for blood produc 06/04/17 16:00 06/04/17 17:57 Prochlorperazine Edisylate (Compazine Inj) 10 mg Q8H PRN IV PUSH nausea 06/05/17 10:00 OBJECTIVE: Vital Signs Date Time Temp Pulse Resp B/P (MAP) Pulse Ox O2 Delivery O2 Flow Rate FiO2 06/05/17 06:28 16 06/05/17 05:00 100.1 98 20 146/75 (98) 96 06/05/17 04:01 85 06/05/17 00:08 91 06/04/17 23:13 98.5 94 17 131/93 (106) 96 06/04/17 20:45 98.5 87 20 132/94 (107) 98 06/04/17 20:09 83 06/04/17 19:15 99.1 85 16 118/ 97 06/04/17 18:56 99.1 85 16 109/65 96 06/04/17 17:00 97.3 88 18 116/66 (83) 95 06/04/17 15:38 98.2 61 20 113/45 (67) 96 Laboratory Tests Test 06/04/17 03:20 06/05/17 06:45 White Blood Count 0.1 TH/MM3 0.1 TH/MM3 Red Blood Count 2.61 MIL/MM3 2.70 MIL/MM3 Hemoglobin 7.6 GM/DL 7.8 GM/DL Hematocrit 22.1 % 22.5 % Mean Corpuscular Volume 84.7 FL 83.5 FL Mean Corpuscular Hemoglobin 29.0 PG 28.9 PG Mean Corpuscular Hemoglobin Concent 34.2 % 34.6 % Red Cell Distribution Width 16.1 % 15.7 % Platelet Count 9 TH/MM3 22 TH/MM3 Mean Platelet Volume 7.5 FL 8.1 FL CBC Comment AUTO DIFF AUTO DIFF Differential Total Cells Counted 10 10 Lymphocytes % 90 % 90 % Monocytes % 10 % Neutrophils # (Manual) 0.0 TH/MM3 0.0 TH/MM3 Differential Comment FINAL DIFF MANUAL FINAL DIFF MANUAL Platelet Estimate RARE LOW Platelet Morphology Comment NORMAL NORMAL Neutrophils % (Manual) 10 % Laboratory Tests Test 06/04/17 03:20 06/05/17 06:45 Blood Urea Nitrogen 8 MG/DL 8 MG/DL Creatinine 0.48 MG/DL 0.37 MG/DL Random Glucose 114 MG/DL 110 MG/DL Total Protein 6.5 GM/DL 6.5 GM/DL Albumin 2.8 GM/DL 2.8 GM/DL Calcium Level 8.4 MG/DL 9.2 MG/DL Alkaline Phosphatase 56 U/L 61 U/L Aspartate Amino Transf (AST/SGOT) 7 U/L 8 U/L Alanine Aminotransferase (ALT/SGPT) 21 U/L 22 U/L Total Bilirubin 1.1 MG/DL 2.2 MG/DL Sodium Level 137 MEQ/L 138 MEQ/L Potassium Level 3.8 MEQ/L 3.2 MEQ/L Chloride Level 103 MEQ/L 102 MEQ/L Carbon Dioxide Level 25.8 MEQ/L 26.8 MEQ/L Anion Gap 8 MEQ/L 9 MEQ/L Estimat Glomerular Filtration Rate 132 ML/MIN 179 ML/MIN Microbiology Date/Time Source Procedure Growth Status 06/02/17 21:47 Blood Peripheral Aerobic Blood Culture - Preliminary NO GROWTH IN 2 DAYS Resulted 06/02/17 21:47 Blood Peripheral Anaerobic Blood Culture - Preliminary NO GROWTH IN 2 DAYS Resulted 06/02/17 21:44 Blood Peripheral Aerobic Blood Culture - Preliminary NO GROWTH IN 2 DAYS Resulted 06/02/17 21:44 Blood Peripheral Anaerobic Blood Culture - Preliminary NO GROWTH IN 2 DAYS Resulted IMAGING: Head CT 06/04/17 0000 Signed Impressions: Service Date/Time: Sunday, June 04, 2017 16:02 - CONCLUSION: Normal examination for a patient of this age. No significant change has occurred. Alcides Longoria MD Chest X-Ray 05/31/17 0441 Signed Impressions: Service Date/Time: Wednesday, May 31, 2017 05:09 - CONCLUSION: The lungs are clear. Troy Clarke MD Chest CT 05/31/17 0000 Signed Impressions: Service Date/Time: Wednesday, May 31, 2017 17:30 - CONCLUSION: 1. No focal consolidation or effusion to suggest infection. No adenopathy. [id number] in superior vena cava. Jacinto Tello MD Abdomen/Pelvis CT 05/31/17 0000 Signed Impressions: Service Date/Time: Wednesday, May 31, 2017 17:30 - CONCLUSION: 1. Diffuse hepatic fatty infiltration. 2. Similarly, diffuse fatty infiltration/atrophy of the pancreas. 3. 7.6 cm cyst laterally in the left renal cortex. 4. No acute intraperitoneal or pelvic process to explain current clinical symptoms. No significant change from prior. Cristo Hughes MD PHYSICAL EXAMINATION GENERAL: No acute distress. Alert HEENT: The head is atraumatic. Extraocular movements grossly intact. Pupils reactive to light. No icterus. No erythema. No lesions. The mucosa is moist. Tenderness at the left submaxilla and left submandibular. NECK: Supple without adenopathy or swelling. LUNGS: Clear. HEART: Regular S1 and S2 without murmurs, rubs or gallops. ABDOMEN: Bowel sounds present. Soft, obese, nontender. EXTREMITIES: No clubbing, cyanosis or edema. SKIN: No rash. NEUROLOGIC: Non focal. PSYCHIATRIC: Calm and cooperative. IMPRESSION 1. Bacteremia. Klebsiella. 2. Febrile neutropenia/pancytopenia. Recurring fever. 3. Acute myeloid leukemia. Receiving Rydapt. 4. ? sinusitis. RECOMMENDATIONS 1. Continue Aztreonam. 2. Continue vancomycin. 3. Continue Diflucan. 4. Afrin nasal decongestant spray. 5. Monitor blood counts. 6. Monitor temp and clinical status. Jim Grande MD Jun 05, 2017 11:01
[2017-06-05] MEDS: PROCHLORPERAZINE INJ 10 MG/2 ML VIAL IV PUSH PRN ×2 (11:14→20:23)
[2017-06-05] MEDS: FLUCONAZOLE 400 MG PREMIX BAG 200 ML IV SCH (14:55)
[2017-06-06] VITALS (10 sets, daily range): BP systolic 118–136; BP diastolic 70–88; PULSE 84–103; RESP 16–18; TEMP 98.1–101.4; O2SAT 95–98
[2017-06-06] MEDS: MELATONIN 5 MG TAB PO PRN (00:07)
[2017-06-06] MEDS: AZTREONAM INJ 2,000 MG in SODIUM CHLORIDE 0.9% INJ 100 ML IV SCH ×3 (04:52→21:50)
[2017-06-06] MEDS: ACETAMINOPHEN 325 MG TAB PO PRN ×4 (04:52→23:42)
[2017-06-06] MEDS: ACYCLOVIR 200 MG CAP PO SCH ×3 (04:59→21:50)
[2017-06-06 05:39] LABS: HEMATOCRIT 22.5 % (35.0-46.0); HEMOGLOBIN 7.7 GM/DL (11.6-15.3); MEAN CELL VOLUME 84.9 FL (80.0-100.0); MEAN CORPUSCULAR HEMOGLOBIN 28.9 PG (27.0-34.0); MEAN CORPUSCULAR HGB CONC 34.1 % (32.0-36.0); MEAN PLATELET VOLUME 7.9 FL (7.0-11.0); RED BLOOD COUNT 2.65 MIL/MM3 (4.00-5.30); RED CELL DISTRIBUTION WIDTH 15.7 % (11.6-17.2); WHITE BLOOD COUNT 0.1 TH/MM3 (4.0-11.0)
[2017-06-06 05:46] LABS: BICARBONATE 26.5 MEQ/L (21.0-32.0); CALCIUM 8.5 MG/DL (8.5-10.1); CREATININE 0.41 MG/DL (0.50-1.00)
[2017-06-06 05:56] LABS: PLATELET COUNT 15 TH/MM3 (150-450)
[2017-06-06 07:10] LABS: LYMPHOCYTES 100 % (9-44)
[2017-06-06] MEDS: PROCHLORPERAZINE INJ 10 MG/2 ML VIAL IV PUSH PRN ×2 (08:38→20:39)
[2017-06-06] MEDS: SODIUM CHLORIDE 0.9% FLUSH 10 ML FLUSH IV FLUSH PRN (08:38)
[2017-06-06] MEDS: VANCOMYCIN 1,000 MG/NS 250 ML IV SCH ×4 (08:38→20:39)
[2017-06-06] MEDS: DOCUSATE SODIUM 100 MG CAP PO SCH (09:00)
[2017-06-06] MEDS: NYSTAT/DIPHENHY/LIDO MOUTHWASH (Adult) 120ML SWISH-SWAL SCH ×4 (09:29→20:39)
[2017-06-06] MEDS: LOSARTAN 50 MG TAB PO SCH (09:29)
[2017-06-06] MEDS: CARVEDILOL 6.25 MG TAB PO SCH (09:29)
[2017-06-06] MEDS: amLODIPine BESYLATE 5 MG TAB PO SCH (09:29)
[2017-06-06] MEDS: LIDOCAINE VISCOUS 2% SOLN 15 ML UDC SWISH-SPIT PRN (09:29)
[2017-06-06] MEDS: HYDROCHLOROTHIAZIDE 25 MG TAB PO SCH (09:30)
[2017-06-06] MEDS: [UNRECOGNIZED DRUG - OTHER] PO SCH ×2 (09:31→20:39)
--- NOTE | 2017-06-06 09:37 | PD.ONC.PN ---
Subjective Subjective Remarks Tmax 101.8 overnight Reports she has a mild headache that is improved with Tylenol Overall feeling better today No bleeding Objective Data Date Time Temp Pulse Resp B/P (MAP) Pulse Ox O2 Delivery O2 Flow Rate FiO2 06/06/17 05:05 99.3 84 16 136/73 (94) 98 06/06/17 00:00 99.5 06/05/17 23:12 101.8 100 16 148/77 (100) 98 06/05/17 20:16 99.9 98 16 136/85 (102) 98 06/05/17 20:05 99 06/05/17 17:07 100.0 89 16 104/63 (77) 97 06/05/17 14:04 98.4 85 18 148/83 (104) 99 06/06/17 06/06/17 06/06/17 07:00 15:00 23:00 Intake Total 1480 ml Output Total 1500 ml Balance -20 ml Result Diagram: 06/06/17 0500 06/06/17 0500 Laboratory Results Laboratory Tests Test 06/06/17 05:00 White Blood Count 0.1 TH/MM3 Red Blood Count 2.65 MIL/MM3 Hemoglobin 7.7 GM/DL Hematocrit 22.5 % Mean Corpuscular Volume 84.9 FL Mean Corpuscular Hemoglobin 28.9 PG Mean Corpuscular Hemoglobin Concent 34.1 % Red Cell Distribution Width 15.7 % Platelet Count 15 TH/MM3 Mean Platelet Volume 7.9 FL CBC Comment AUTO DIFF Differential Total Cells Counted 8 Lymphocytes % 100 % Neutrophils # (Manual) 0.0 TH/MM3 Differential Comment FINAL DIFF MANUAL Platelet Estimate RARE Platelet Morphology Comment NORMAL Red Cell Morphology Comment NORMAL Blood Urea Nitrogen 8 MG/DL Creatinine 0.41 MG/DL Random Glucose 111 MG/DL Calcium Level 8.5 MG/DL Sodium Level 139 MEQ/L Potassium Level 3.0 MEQ/L Chloride Level 105 MEQ/L Carbon Dioxide Level 26.5 MEQ/L Anion Gap 8 MEQ/L Estimat Glomerular Filtration Rate 159 ML/MIN Culture Results Microbiology Date/Time Source Procedure Growth Status 06/06/17 00:45 Blood Peripheral Aerobic Blood Culture Pending Received 06/06/17 00:45 Blood Peripheral Anaerobic Blood Culture Pending Received 06/05/17 23:55 Blood Line Aerobic Blood Culture Pending Received 06/05/17 23:55 Blood Line Anaerobic Blood Culture Pending Received Administered Medications Medications (Trade) Dose Ordered Sig/Zeynep Route PRN Reason Start Time Stop Time Status Last Admin Dose Admin Amlodipine Besylate (Norvasc) 5 mg DAILY PO 05/24/17 09:00 06/05/17 09:13 Losartan Potassium (Cozaar) 100 mg DAILY PO 05/24/17 09:00 06/05/17 09:13 Melatonin (Melatonin) 5 mg HS PRN PO insomnia 05/24/17 08:30 06/06/17 00:07 Hydrochlorothiazide (Hydrodiuril) 25 mg DAILY PO 05/24/17 09:00 06/05/17 09:13 Acetaminophen (Tylenol) 650 mg Q4H PRN PO fever>100.4 or premedication 05/24/17 08:45 06/06/17 04:52 Oxycodone HCl (Roxicodone) 5 mg Q4H PRN PO pain>5 05/24/17 12:15 06/03/17 20:41 Patient Own Medication PT OWN MED: RYDAPT (MIDOSTAUR... BID PO 05/31/17 09:00 06/13/17 21:01 06/05/17 20:23 Multi-Ingredient Mouthwash/Gargle (Magic Mouthwash Adult Liq) 5 ml QID SWISH-SWAL 05/24/17 13:00 06/05/17 20:23 Docusate Sodium (Colace) 100 mg DAILY PO 05/26/17 11:00 06/05/17 09:10 Magnesium Hydroxide (Milk Of Magnesia Liq) 30 ml DAILY PRN PO MILD - MODERATE CONSTIPATION 05/26/17 11:00 05/26/17 11:22 Sodium Chloride (NS Flush) 5 ml UNSCH PRN IV FLUSH SEE PROTOCOL TABLE 05/28/17 14:00 06/06/17 08:38 Heparin Sodium (Porcine) (Heparin Central Flush) 250 units UNSCH PRN IV FLUSH SEE PROTOCOL TABLE 05/28/17 14:00 05/29/17 04:51 Vancomycin HCl 1000 mg/Sodium Chloride 250 ml @ 250 mls/hr Q12H IV 05/31/17 08:00 06/06/17 08:38 Promethazine HCl (Phenergan Inj) 12.5 mg Q4H PRN IV-CENTRAL nausea/vomiting 05/31/17 09:30 06/04/17 20:50 Aztreonam 2000 mg/ Sodium Chloride 100 ml @ 200 mls/hr Q8H IV 06/01/17 14:00 06/06/17 04:52 Sodium Chloride 1,000 ml @ 100 mls/hr Q10H IV 06/03/17 10:00 06/05/17 23:11 Fluconazole/ Sodium Chloride 200 ml @ 100 mls/hr Q24H IV 06/03/17 15:00 06/05/17 14:55 Lidocaine HCl (Xylocaine 2% Viscous) 15 ml Q4H PRN SWISH-SPIT mouth pain 06/03/17 15:00 06/05/17 09:09 Acyclovir (Zovirax) 400 mg Q8HR PO 06/03/17 15:15 06/06/17 04:59 Carvedilol (Coreg) 6.25 mg DAILY PO 06/05/17 09:00 06/05/17 09:13 Diphenhydramine HCl (Benadryl) 25 mg Q4H PRN PO premedication for blood produc 06/04/17 16:00 06/04/17 17:57 Prochlorperazine Edisylate (Compazine Inj) 10 mg Q8H PRN IV PUSH nausea 06/05/17 10:00 06/06/17 08:38 Oxymetazoline HCl (Afrin 0.05% Diaz [place]) 2 spray Q12H PRN NASAL NASAL CONGESTION 06/05/17 11:00 06/05/17 14:01 Objective Remarks GENERAL: Older female sitting up on side of bed conversing with visitor in no obvious distress SKIN: Warm and dry. HEAD: Normocephalic. EYES: No injection or drainage. MOUTH: Multiple oral ulcers. Thrush improved NECK: Supple, trachea midline. CARDIOVASCULAR: Regular rate and rhythm RESPIRATORY: Breath sounds equal bilaterally. No accessory muscle use. GASTROINTESTINAL: Abdomen soft, non-tender, nondistended. EXTREMITIES: No cyanosis. no edema. NEUROLOGICAL: Awake and alert. Able to move all extremities. Normal speech. Assessment/Plan Assessment 57y/o female admitted for salvage chemotherapy for relapse of acute myeloid leukemia, FLT3 positive. Plan 1. Pt is at day 13 into [facility] salvage chemotherapy. She reports she feels overall improved today. We discussed that we will continue to monitor her blood counts and transfuse as necessary while we await bone marrow recovery. 2. Unfortunately she continues to have fevers. I have ordered a chest x-ray as well as a UA to evaluate for source of infection. Defer to infectious disease for choice of antibiotics. 3. No transfusion today. Continue to monitor CBC. Attending Statement The exam, history, and the medical decision-making described in the above note were completed with the assistance of the mid-level provider. I reviewed and agree with the findings presented. I attest that I had a [id number] encounter with the patient on the same day, and personally performed and documented my assessment and findings in the medical record. reviewed chest film and there may be effusion at left base. fluid balance positive and possibly excessive. will stop IV fluids. continue support. Amina Castellanos Jun 06, 2017 09:37 Jarocho Knight MD Jun 06, 2017 16:22
--- NOTE | 2017-06-06 09:51 | RADRPT ---
EXAM DATE/TIME: 06/06/2017 09:26 [facility] COMPARISON: CHEST SINGLE AP, May 31, 2017, 5:09. INDICATIONS : Evaluate for pneumonia. MEDICAL HISTORY : Cardiovascular disease. Chronic obstructive pulmonary disease. Leukemia. Hypertension. Asthma. Em physema. SURGICAL HISTORY : Cholecystectomy. Hysterectomy. Port. ENCOUNTER: Subsequent ACUITY: 2 days PAIN SCORE: 0/10 LOCATION: Bilateral chest FINDINGS: Stable appearance of a right-sided central line with the tip overlying the mid SVC. The heart size is normal with normal pulmonary vasculature. There is new hazy air space opacities involving the bilate ral lower lobes, left greater than right. Concern is for pleural effusion. CONCLUSION: Concern for pleural fluid bilaterally, left greater than right. Recommend repeat exam with upright PA and lateral views when clinically able. Jess Jay MD on June 06, 2017 at 9:48 Board Certified Radiologist. This report was verified electronically.
[2017-06-06] MEDS: SODIUM CHLOR 0.9% 1000 ML INJ 1,000 ML IV SCH (10:35)
--- NOTE | 2017-06-06 11:31 | HHI.IDPN ---
Note Infectious Disease Note Patient feels a little better. Had temp spike of 101. Slight chill last night. pain at left maxilla sinus area is better. No diarrhea. No SOB. Repeat blood culture negative. Patient with acute myeloid leukemia, FLT3 positive. Admitted for salvage chemotherapy on 05/24/2017. PAST MEDICAL HISTORY 1. Hypertension. 2. Hypercholesteremia. 3. COPD. 4. Rheumatoid arthritis. 5. Depression. 6. Anxiety disorder. PAST SURGICAL HISTORY 1. Cholecystectomy. 2. [id number]-O-[id number] placement. 3. Complete hysterectomy. 4. Colon resection. ALLERGIES 1. SULFA. 2. CEFEPIME. 3. LATEX. ANTIBIOTICS 1. Aztreonam. 2. Vancomycin. 3. Diflucan. Current Medications Medications (Trade) Dose Ordered Sig/Zeynep Route PRN Reason Start Time Stop Time Status Last Admin Dose Admin Amlodipine Besylate (Norvasc) 5 mg DAILY PO 05/24/17 09:00 06/06/17 09:29 Losartan Potassium (Cozaar) 100 mg DAILY PO 05/24/17 09:00 06/06/17 09:29 Melatonin (Melatonin) 5 mg HS PRN PO insomnia 05/24/17 08:30 06/06/17 00:07 Hydrochlorothiazide (Hydrodiuril) 25 mg DAILY PO 05/24/17 09:00 06/06/17 09:30 Acetaminophen (Tylenol) 650 mg Q4H PRN PO fever>100.4 or premedication 05/24/17 08:45 06/06/17 09:28 Oxycodone HCl (Roxicodone) 5 mg Q4H PRN PO pain>5 05/24/17 12:15 06/03/17 20:41 Patient Own Medication PT OWN MED: RYDAPT (MIDOSTAUR... BID PO 05/31/17 09:00 06/13/17 21:01 06/06/17 09:31 Multi-Ingredient Mouthwash/Gargle (Magic Mouthwash Adult Liq) 5 ml QID SWISH-SWAL 05/24/17 13:00 06/06/17 09:29 Docusate Sodium (Colace) 100 mg DAILY PO 05/26/17 11:00 06/05/17 09:10 Magnesium Hydroxide (Milk Of Magnesia Liq) 30 ml DAILY PRN PO MILD - MODERATE CONSTIPATION 05/26/17 11:00 05/26/17 11:22 Sodium Chloride (NS Flush) 5 ml UNSCH PRN IV FLUSH SEE PROTOCOL TABLE 05/28/17 14:00 06/06/17 08:38 Heparin Sodium (Porcine) (Heparin Central Flush) 250 units UNSCH PRN IV FLUSH SEE PROTOCOL TABLE 05/28/17 14:00 05/29/17 04:51 Heparin Sodium (Porcine) (Heparin Central Flush) 500 units UNSCH IV FLUSH 05/28/17 14:00 Vancomycin HCl 1000 mg/Sodium Chloride 250 ml @ 250 mls/hr Q12H IV 05/31/17 08:00 06/06/17 08:38 Promethazine HCl (Phenergan Inj) 12.5 mg Q4H PRN IV-CENTRAL nausea/vomiting 05/31/17 09:30 06/04/17 20:50 Aztreonam 2000 mg/ Sodium Chloride 100 ml @ 200 mls/hr Q8H IV 06/01/17 14:00 06/06/17 04:52 [place]/ Glycerin (Tucks Pads) 1 applic UNSCH PRN TOPICAL HEMORRHOIDS 06/01/17 19:30 Sodium Chloride 1,000 ml @ 100 mls/hr Q10H IV 06/03/17 10:00 06/06/17 10:35 Fluconazole/ Sodium Chloride 200 ml @ 100 mls/hr Q24H IV 06/03/17 15:00 06/05/17 14:55 Lidocaine HCl (Xylocaine 2% Viscous) 15 ml Q4H PRN SWISH-SPIT mouth pain 06/03/17 15:00 06/06/17 09:29 Acyclovir (Zovirax) 400 mg Q8HR PO 06/03/17 15:15 06/06/17 04:59 Carvedilol (Coreg) 6.25 mg DAILY PO 06/05/17 09:00 06/06/17 09:29 Diphenhydramine HCl (Benadryl) 25 mg Q4H PRN PO premedication for blood produc 06/04/17 16:00 06/04/17 17:57 Prochlorperazine Edisylate (Compazine Inj) 10 mg Q8H PRN IV PUSH nausea 06/05/17 10:00 06/06/17 08:38 Oxymetazoline HCl (Afrin 0.05% Diaz [place]) 2 spray Q12H PRN NASAL NASAL CONGESTION 06/05/17 11:00 06/05/17 14:01 OBJECTIVE: Vital Signs Date Time Temp Pulse Resp B/P (MAP) Pulse Ox O2 Delivery O2 Flow Rate FiO2 06/06/17 05:05 99.3 84 16 136/73 (94) 98 06/06/17 00:00 99.5 06/05/17 23:12 101.8 100 16 148/77 (100) 98 06/05/17 20:16 99.9 98 16 136/85 (102) 98 06/05/17 20:05 99 06/05/17 17:07 100.0 89 16 104/63 (77) 97 06/05/17 14:04 98.4 85 18 148/83 (104) 99 Laboratory Tests Test 06/05/17 06:45 06/06/17 05:00 White Blood Count 0.1 TH/MM3 0.1 TH/MM3 Red Blood Count 2.70 MIL/MM3 2.65 MIL/MM3 Hemoglobin 7.8 GM/DL 7.7 GM/DL Hematocrit 22.5 % 22.5 % Mean Corpuscular Volume 83.5 FL 84.9 FL Mean Corpuscular Hemoglobin 28.9 PG 28.9 PG Mean Corpuscular Hemoglobin Concent 34.6 % 34.1 % Red Cell Distribution Width 15.7 % 15.7 % Platelet Count 22 TH/MM3 15 TH/MM3 Mean Platelet Volume 8.1 FL 7.9 FL CBC Comment AUTO DIFF AUTO DIFF Differential Total Cells Counted 10 8 Neutrophils % (Manual) 10 % Lymphocytes % 90 % 100 % Neutrophils # (Manual) 0.0 TH/MM3 0.0 TH/MM3 Differential Comment FINAL DIFF MANUAL FINAL DIFF MANUAL Platelet Estimate LOW RARE Platelet Morphology Comment NORMAL NORMAL Red Cell Morphology Comment NORMAL Laboratory Tests Test 06/05/17 06:45 06/06/17 05:00 Blood Urea Nitrogen 8 MG/DL 8 MG/DL Creatinine 0.37 MG/DL 0.41 MG/DL Random Glucose 110 MG/DL 111 MG/DL Total Protein 6.5 GM/DL Albumin 2.8 GM/DL Calcium Level 9.2 MG/DL 8.5 MG/DL Alkaline Phosphatase 61 U/L Aspartate Amino Transf (AST/SGOT) 8 U/L Alanine Aminotransferase (ALT/SGPT) 22 U/L Total Bilirubin 2.2 MG/DL Sodium Level 138 MEQ/L 139 MEQ/L Potassium Level 3.2 MEQ/L 3.0 MEQ/L Chloride Level 102 MEQ/L 105 MEQ/L Carbon Dioxide Level 26.8 MEQ/L 26.5 MEQ/L Anion Gap 9 MEQ/L 8 MEQ/L Estimat Glomerular Filtration Rate 179 ML/MIN 159 ML/MIN Microbiology Date/Time Source Procedure Growth Status 06/06/17 00:45 Blood Peripheral Aerobic Blood Culture Pending Received 06/06/17 00:45 Blood Peripheral Anaerobic Blood Culture Pending Received 06/05/17 23:55 Blood Line Aerobic Blood Culture Pending Received 06/05/17 23:55 Blood Line Anaerobic Blood Culture Pending Received IMAGING: Chest X-Ray 06/06/17 0000 Signed Impressions: Service Date/Time: Tuesday, June 06, 2017 09:26 - CONCLUSION: Concern for pleural fluid bilaterally, left greater than right. Recommend repeat exam with upright PA and lateral views when clinically able. Jess Jay MD Head CT 06/04/17 0000 Signed Impressions: Service Date/Time: Sunday, June 04, 2017 16:02 - CONCLUSION: Normal examination for a patient of this age. No significant change has occurred. Alcides Longoria MD Chest X-Ray 05/31/17 0441 Signed Impressions: Service Date/Time: Wednesday, May 31, 2017 05:09 - CONCLUSION: The lungs are clear. Troy Clarke MD Chest CT 05/31/17 0000 Signed Impressions: Service Date/Time: Wednesday, May 31, 2017 17:30 - CONCLUSION: 1. No focal consolidation or effusion to suggest infection. No adenopathy. [id number] in superior vena cava. Jacinto Tello MD Abdomen/Pelvis CT 05/31/17 0000 Signed Impressions: Service Date/Time: Wednesday, May 31, 2017 17:30 - CONCLUSION: 1. Diffuse hepatic fatty infiltration. 2. Similarly, diffuse fatty infiltration/atrophy of the pancreas. 3. 7.6 cm cyst laterally in the left renal cortex. 4. No acute intraperitoneal or pelvic process to explain current clinical symptoms. No significant change from prior. Cristo Hughes MD PHYSICAL EXAMINATION GENERAL: No acute distress. Alert HEENT: The head is atraumatic. Extraocular movements grossly intact. Pupils reactive to light. No icterus. No erythema. No lesions. The mucosa is moist. NECK: Supple without adenopathy or swelling. LUNGS: Clear breath sounds. HEART: Regular S1 and S2 without murmurs, rubs or gallops. ABDOMEN: Bowel sounds present. Soft, obese, nontender. EXTREMITIES: No clubbing, cyanosis or edema. SKIN: No rash. NEUROLOGIC: Non focal. PSYCHIATRIC: Calm and cooperative. IMPRESSION 1. Bacteremia. Klebsiella. 2. Febrile neutropenia/pancytopenia. Recurring fever. CXR shows pleural effusions, Blood cultures has no growth. 3. Acute myeloid leukemia. Receiving Rydapt. 4. ? sinusitis. RECOMMENDATIONS 1. Continue Aztreonam. 2. Continue vancomycin. 3. Continue Diflucan. 4. Monitor blood counts. 5. Monitor temp. 6. Monitor clinical status. Jim Grande MD Jun 06, 2017 11:31
[2017-06-06] MEDS: FLUCONAZOLE 400 MG PREMIX BAG 200 ML IV SCH (15:41)
[2017-06-06 15:57] LABS: BILIRUBIN, URINE NEG (NEG); BLOOD, URINE NEG (NEG); GLUCOSE,URINE NEG (NEG); KETONE, URINE NEG (NEG); MUCUS URINE FEW /lpf (OCC); NITRITE,URINE NEG (NEG); SQUAMOUS EPITHELIAL CELL URINE 1 /hpf (0-5); TRANSITIONAL EPI CELLS, URINE 1 /hpf; URINE COLOR LIGHT-YELLOW (YELLW/STRAW); URINE LEUKOCYTE ESTERASE NEG (NEG)
[2017-06-07] VITALS (12 sets, daily range): BP systolic 95–132; BP diastolic 59–85; PULSE 77–106; RESP 16–17; TEMP 98.2–101.6; O2SAT 91–98
[2017-06-07] MEDS: MELATONIN 5 MG TAB PO PRN ×2 (00:15→20:05)
[2017-06-07] MEDS: ACETAMINOPHEN 325 MG TAB PO PRN ×4 (05:33→21:53)
[2017-06-07] MEDS: ACYCLOVIR 200 MG CAP PO SCH ×3 (05:34→21:54)
[2017-06-07] MEDS: AZTREONAM INJ 2,000 MG in SODIUM CHLORIDE 0.9% INJ 100 ML IV SCH ×3 (05:34→22:12)
[2017-06-07 06:13] LABS: EOSINOPHIL % 3.9 % (0.0-4.0); HEMATOCRIT 21.2 % (35.0-46.0); HEMOGLOBIN 7.4 GM/DL (11.6-15.3); LYMPH % 89.8 % (9.0-44.0); LYMPHOCYTE # 0.1 TH/MM3 (1.0-4.8); MEAN CELL VOLUME 83.4 FL (80.0-100.0); MEAN CORPUSCULAR HEMOGLOBIN 28.9 PG (27.0-34.0); MEAN CORPUSCULAR HGB CONC 34.7 % (32.0-36.0); MEAN PLATELET VOLUME 8.1 FL (7.0-11.0); MONO % 2.4 % (0.0-8.0); NEUT % 3.9 % (16.0-70.0); RED BLOOD COUNT 2.54 MIL/MM3 (4.00-5.30); RED CELL DISTRIBUTION WIDTH 15.5 % (11.6-17.2); WHITE BLOOD COUNT 0.1 TH/MM3 (4.0-11.0)
[2017-06-07 06:17] LABS: PLATELET COUNT 12 TH/MM3 (150-450)
[2017-06-07 06:38] LABS: BICARBONATE 28.9 MEQ/L (21.0-32.0); CREATININE 0.51 MG/DL (0.50-1.00)
[2017-06-07] MEDS ORDERED: SODIUM CHLOR 0.9% 250 ML INJ 250 ML IV ONE (07:30)
[2017-06-07] MEDS: [UNRECOGNIZED DRUG - OTHER] PO SCH ×2 (09:00→20:06)
[2017-06-07] MEDS: DOCUSATE SODIUM 100 MG CAP PO SCH (09:00)
[2017-06-07] MEDS: VANCOMYCIN 1,000 MG/NS 250 ML IV SCH ×4 (09:10→20:04)
[2017-06-07] MEDS: amLODIPine BESYLATE 5 MG TAB PO SCH (09:11)
[2017-06-07] MEDS: LOSARTAN 50 MG TAB PO SCH (09:11)
[2017-06-07] MEDS: HYDROCHLOROTHIAZIDE 25 MG TAB PO SCH (09:11)
[2017-06-07] MEDS: CARVEDILOL 6.25 MG TAB PO SCH (09:11)
[2017-06-07] MEDS: PROCHLORPERAZINE INJ 10 MG/2 ML VIAL IV PUSH PRN ×2 (09:12→20:04)
[2017-06-07] MEDS: NYSTAT/DIPHENHY/LIDO MOUTHWASH (Adult) 120ML SWISH-SWAL SCH ×4 (09:12→20:03)
--- NOTE | 2017-06-07 09:30 | PD.ONC.PN ---
Subjective Subjective Remarks Tmax 101.2 overnight. Patient resting in room. Eating breakfast. reporting she feels better. Headache improved. Mouth sores improved. overall malaise improved. Objective Data Date Time Temp Pulse Resp B/P (MAP) Pulse Ox O2 Delivery O2 Flow Rate FiO2 06/07/17 05:00 100.1 85 17 132/85 (101) 98 06/07/17 00:00 98.2 06/06/17 23:25 101.2 06/06/17 23:07 99.2 100 18 123/70 (87) 98 06/06/17 20:38 98.7 103 16 133/88 (103) 96 06/06/17 20:00 94 06/06/17 17:45 101.0 06/06/17 16:45 101.4 06/06/17 15:49 100.0 89 16 134/88 (103) 98 06/07/17 06/07/17 06/07/17 07:00 15:00 23:00 Intake Total 720 ml Output Total 2300 ml Balance -1580 ml Result Diagram: 06/07/17 0535 06/07/17 0535 Laboratory Results Laboratory Tests Test 06/06/17 15:05 06/07/17 05:35 Urine Color LIGHT-YELLOW Urine Turbidity CLEAR Urine pH 7.0 Urine Specific [place] 1.009 Urine Protein NEG mg/dL Urine Glucose (UA) NEG mg/dL Urine Ketones NEG mg/dL Urine Occult Blood NEG Urine Nitrite NEG Urine Bilirubin NEG Urine Urobilinogen LESS THAN 2.0 MG/DL Urine Leukocyte Esterase NEG Urine RBC LESS THAN 1 /hpf Urine WBC 1 /hpf Urine Squamous Epithelial Cells 1 /hpf Urine Transitional Epithelial Cells 1 /hpf Urine Mucus FEW /lpf Microscopic Urinalysis Comment CULT NOT INDICATED White Blood Count 0.1 TH/MM3 Red Blood Count 2.54 MIL/MM3 Hemoglobin 7.4 GM/DL Hematocrit 21.2 % Mean Corpuscular Volume 83.4 FL Mean Corpuscular Hemoglobin 28.9 PG Mean Corpuscular Hemoglobin Concent 34.7 % Red Cell Distribution Width 15.5 % Platelet Count 12 TH/MM3 Mean Platelet Volume 8.1 FL Neutrophils (%) (Auto) 3.9 % Lymphocytes (%) (Auto) 89.8 % Monocytes (%) (Auto) 2.4 % Eosinophils (%) (Auto) 3.9 % Basophils (%) (Auto) 0.0 % Neutrophils # (Auto) 0.0 TH/MM3 Lymphocytes # (Auto) 0.1 TH/MM3 Monocytes # (Auto) 0.0 TH/MM3 Eosinophils # (Auto) 0.0 TH/MM3 Basophils # (Auto) 0.0 TH/MM3 CBC Comment AUTO DIFF Blood Urea Nitrogen 6 MG/DL Creatinine 0.51 MG/DL Random Glucose 114 MG/DL Calcium Level 9.0 MG/DL Sodium Level 138 MEQ/L Potassium Level 2.9 MEQ/L Chloride Level 101 MEQ/L Carbon Dioxide Level 28.9 MEQ/L Anion Gap 8 MEQ/L Estimat Glomerular Filtration Rate 123 ML/MIN Culture Results Microbiology Date/Time Source Procedure Growth Status 06/06/17 00:45 Blood Peripheral Aerobic Blood Culture Pending Received 06/06/17 00:45 Blood Peripheral Anaerobic Blood Culture Pending Received 06/05/17 23:55 Blood Line Aerobic Blood Culture Pending Received 06/05/17 23:55 Blood Line Anaerobic Blood Culture Pending Received Administered Medications Medications (Trade) Dose Ordered Sig/Zeynep Route PRN Reason Start Time Stop Time Status Last Admin Dose Admin Amlodipine Besylate (Norvasc) 5 mg DAILY PO 05/24/17 09:00 06/07/17 09:11 Losartan Potassium (Cozaar) 100 mg DAILY PO 05/24/17 09:00 06/07/17 09:11 Melatonin (Melatonin) 5 mg HS PRN PO insomnia 05/24/17 08:30 06/07/17 00:15 Hydrochlorothiazide (Hydrodiuril) 25 mg DAILY PO 05/24/17 09:00 06/07/17 09:11 Acetaminophen (Tylenol) 650 mg Q4H PRN PO fever>100.4 or premedication 05/24/17 08:45 06/07/17 05:33 Oxycodone HCl (Roxicodone) 5 mg Q4H PRN PO pain>5 05/24/17 12:15 06/03/17 20:41 Patient Own Medication PT OWN MED: RYDAPT (MIDOSTAUR... BID PO 05/31/17 09:00 06/13/17 21:01 06/07/17 09:00 Multi-Ingredient Mouthwash/Gargle (Magic Mouthwash Adult Liq) 5 ml QID SWISH-SWAL 05/24/17 13:00 06/07/17 09:12 Docusate Sodium (Colace) 100 mg DAILY PO 05/26/17 11:00 06/05/17 09:10 Magnesium Hydroxide (Milk Of Magnesia Liq) 30 ml DAILY PRN PO MILD - MODERATE CONSTIPATION 05/26/17 11:00 05/26/17 11:22 Sodium Chloride (NS Flush) 5 ml UNSCH PRN IV FLUSH SEE PROTOCOL TABLE 05/28/17 14:00 06/06/17 08:38 Heparin Sodium (Porcine) (Heparin Central Flush) 250 units UNSCH PRN IV FLUSH SEE PROTOCOL TABLE 05/28/17 14:00 05/29/17 04:51 Vancomycin HCl 1000 mg/Sodium Chloride 250 ml @ 250 mls/hr Q12H IV 05/31/17 08:00 06/07/17 09:10 Promethazine HCl (Phenergan Inj) 12.5 mg Q4H PRN IV-CENTRAL nausea/vomiting 05/31/17 09:30 06/04/17 20:50 Aztreonam 2000 mg/ Sodium Chloride 100 ml @ 200 mls/hr Q8H IV 06/01/17 14:00 06/07/17 05:34 Fluconazole/ Sodium Chloride 200 ml @ 100 mls/hr Q24H IV 06/03/17 15:00 06/06/17 15:41 Lidocaine HCl (Xylocaine 2% Viscous) 15 ml Q4H PRN SWISH-SPIT mouth pain 06/03/17 15:00 06/06/17 09:29 Acyclovir (Zovirax) 400 mg Q8HR PO 06/03/17 15:15 06/07/17 05:34 Carvedilol (Coreg) 6.25 mg DAILY PO 06/05/17 09:00 06/07/17 09:11 Diphenhydramine HCl (Benadryl) 25 mg Q4H PRN PO premedication for blood produc 06/04/17 16:00 06/04/17 17:57 Prochlorperazine Edisylate (Compazine Inj) 10 mg Q8H PRN IV PUSH nausea 06/05/17 10:00 06/07/17 09:12 Oxymetazoline HCl (Afrin 0.05% Diaz [place]) 2 spray Q12H PRN NASAL NASAL CONGESTION 06/05/17 11:00 06/05/17 14:01 Objective Remarks GENERAL: Middle aged female, sitting up in bed in nad SKIN: Warm and dry. port in place, no bleeding or sign of infection. + alopecia. HEAD: Normocephalic. EYES: No injection or drainage. MOUTH: a few oral ulcers noted NECK: Supple, trachea midline. CARDIOVASCULAR: Regular rate and rhythm RESPIRATORY: Breath sounds equal bilaterally. No accessory muscle use. GASTROINTESTINAL: Abdomen soft, non-tender, nondistended. EXTREMITIES: No cyanosis NEUROLOGICAL: awake and alert, normal speech. moving all extremities. Assessment/Plan Problem List: (1) Neutropenic fever ICD Codes: D70.9 - Neutropenia, unspecified; R50.81 - Fever presenting with conditions classified elsewhere Status: Acute Plan: --On Vanco + Azactam + Diflucan + Acyclovir. --BC + Klebsiella pneumoniae --most recent blood cultures negative. CT chest/abdomen pelvis show no nidus for infection. 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 tolerated D1 16: D2. monitor CBC, bilirubin. 05/26: D3. Tolerating chemotherapy. Add on daily stool softener with prn milk of magnesia for constipation. Monitor CBC. 05/27: D4. Continue chemotherapy. Transfuse 1 unit irradiated packed red blood cells for hemoglobin of 7.5 as her counts are trending down. Monitor CBC, CMP. 05.28: D5. tolerating chemo. no transfusion needed at present. 05/29: D6. chemo complete yesterday. give 2 units pRBC today 05/30. D7. no blood transfusion. monitor. 05/31. D8. +fever. start Vanco/Azactam. obtain BC. obtain CT. 06/01: D9. continue Vanco/Azactam. resume Coreg. 06/03: D11: continue antibiotics. supportive care 06/07: D15: feeling a bit improved. continue antibiotics. 1 unit pRBC (3) Hypertension ICD Codes: I10 - Essential (primary) hypertension Status: Chronic Plan: --on home medications. -- Stable (4) Stomatitis ICD Codes: K12.1 - Other forms of stomatitis Plan: --d/t chemotherapy --on magic mouthwash. Assessment 57y/o female admitted for salvage chemotherapy for relapse of acute myeloid leukemia, FLT3 positive. Attending Statement The exam, history, and the medical decision-making described in the above note were completed with the assistance of the mid-level provider. I reviewed and agree with the findings presented. I attest that I had a [id number] encounter with the patient on the same day, and personally performed and documented my assessment and findings in the medical record. Denies any fevre/chills c/o weakness No more N/V PRBC 2 units today. continue Rydapt BMbx on coming wednesday. events of last week reviewed and d/w pt. Problem Qualifiers (1) Hypertension: Qualified Codes: I10 - Essential (primary) hypertension Julianna Mcdaniel Jun 07, 2017 09:30 April Fonseca MD Jun 07, 2017 18:21
[2017-06-07 10:12] LABS: LYMPHOCYTES 100 % (9-44)
[2017-06-07] MEDS: diphenhydrAMINE HCL 25 MG CAP PO PRN (12:05)
--- NOTE | 2017-06-07 15:06 | HHI.IDPN ---
Note Infectious Disease Note Patient feels well. Had temp spike of 101 last evening. No pain currently. Receiving blood transfusion. Moving bowels. No diarrhea. No SOB. Repeat blood cultures negative. Patient with acute myeloid leukemia, FLT3 positive. Admitted for salvage chemotherapy on 05/24/2017. PAST MEDICAL HISTORY 1. Hypertension. 2. Hypercholesteremia. 3. COPD. 4. Rheumatoid arthritis. 5. Depression. 6. Anxiety disorder. PAST SURGICAL HISTORY 1. Cholecystectomy. 2. [id number] placement. 3. Complete hysterectomy. 4. Colon resection. ALLERGIES 1. SULFA. 2. CEFEPIME. 3. LATEX. ANTIBIOTICS 1. Aztreonam. 2. Vancomycin. 3. Diflucan. Current Medications Medications (Trade) Dose Ordered Sig/Zeynep Route PRN Reason Start Time Stop Time Status Last Admin Dose Admin Amlodipine Besylate (Norvasc) 5 mg DAILY PO 05/24/17 09:00 06/07/17 09:11 Losartan Potassium (Cozaar) 100 mg DAILY PO 05/24/17 09:00 06/07/17 09:11 Melatonin (Melatonin) 5 mg HS PRN PO insomnia 05/24/17 08:30 06/07/17 00:15 Hydrochlorothiazide (Hydrodiuril) 25 mg DAILY PO 05/24/17 09:00 06/07/17 09:11 Acetaminophen (Tylenol) 650 mg Q4H PRN PO fever>100.4 or premedication 05/24/17 08:45 06/07/17 12:05 Oxycodone HCl (Roxicodone) 5 mg Q4H PRN PO pain>5 05/24/17 12:15 06/03/17 20:41 Patient Own Medication PT OWN MED: RYDAPT (MIDOSTAUR... BID PO 05/31/17 09:00 06/13/17 21:01 06/07/17 09:00 Multi-Ingredient Mouthwash/Gargle (Magic Mouthwash Adult Liq) 5 ml QID SWISH-SWAL 05/24/17 13:00 06/07/17 09:12 Docusate Sodium (Colace) 100 mg DAILY PO 05/26/17 11:00 06/05/17 09:10 Magnesium Hydroxide (Milk Of Magnesia Liq) 30 ml DAILY PRN PO MILD - MODERATE CONSTIPATION 05/26/17 11:00 05/26/17 11:22 Sodium Chloride (NS Flush) 5 ml UNSCH PRN IV FLUSH SEE PROTOCOL TABLE 05/28/17 14:00 06/06/17 08:38 Heparin Sodium (Porcine) (Heparin Central Flush) 250 units UNSCH PRN IV FLUSH SEE PROTOCOL TABLE 05/28/17 14:00 05/29/17 04:51 Heparin Sodium (Porcine) (Heparin Central Flush) 500 units UNSCH IV FLUSH 05/28/17 14:00 Vancomycin HCl 1000 mg/Sodium Chloride 250 ml @ 250 mls/hr Q12H IV 05/31/17 08:00 06/07/17 09:10 Promethazine HCl (Phenergan Inj) 12.5 mg Q4H PRN IV-CENTRAL nausea/vomiting 05/31/17 09:30 06/04/17 20:50 Aztreonam 2000 mg/ Sodium Chloride 100 ml @ 200 mls/hr Q8H IV 06/01/17 14:00 06/07/17 05:34 [place]/ Glycerin (Tucks Pads) 1 applic UNSCH PRN TOPICAL HEMORRHOIDS 06/01/17 19:30 Fluconazole/ Sodium Chloride 200 ml @ 100 mls/hr Q24H IV 06/03/17 15:00 06/06/17 15:41 Lidocaine HCl (Xylocaine 2% Viscous) 15 ml Q4H PRN SWISH-SPIT mouth pain 06/03/17 15:00 06/06/17 09:29 Acyclovir (Zovirax) 400 mg Q8HR PO 06/03/17 15:15 06/07/17 05:34 Carvedilol (Coreg) 6.25 mg DAILY PO 06/05/17 09:00 06/07/17 09:11 Diphenhydramine HCl (Benadryl) 25 mg Q4H PRN PO premedication for blood produc 06/04/17 16:00 06/07/17 12:05 Prochlorperazine Edisylate (Compazine Inj) 10 mg Q8H PRN IV PUSH nausea 06/05/17 10:00 06/07/17 09:12 Oxymetazoline HCl (Afrin 0.05% Diaz [place]) 2 spray Q12H PRN NASAL NASAL CONGESTION 06/05/17 11:00 06/05/17 14:01 Sodium Chloride 250 ml @ 15 mls/hr ONCE ONCE IV 06/07/17 07:30 06/08/17 00:09 06/07/17 07:30 OBJECTIVE: Vital Signs Date Time Temp Pulse Resp B/P (MAP) Pulse Ox O2 Delivery O2 Flow Rate FiO2 06/07/17 13:41 99.1 77 16 95/59 92 06/07/17 13:39 99.1 77 16 95/59 92 06/07/17 13:17 99.2 89 16 96/66 95 06/07/17 13:07 99.2 89 16 96/66 (76) 95 06/07/17 09:12 98.4 96 16 127/85 (99) 93 06/07/17 05:00 100.1 85 17 132/85 (101) 98 06/07/17 00:00 98.2 06/06/17 23:25 101.2 06/06/17 23:07 99.2 100 18 123/70 (87) 98 06/06/17 20:38 98.7 103 16 133/88 (103) 96 06/06/17 20:00 94 06/06/17 17:45 101.0 06/06/17 16:45 101.4 06/06/17 15:49 100.0 89 16 134/88 (103) 98 Laboratory Tests Test 06/06/17 05:00 06/07/17 05:35 White Blood Count 0.1 TH/MM3 0.1 TH/MM3 Red Blood Count 2.65 MIL/MM3 2.54 MIL/MM3 Hemoglobin 7.7 GM/DL 7.4 GM/DL Hematocrit 22.5 % 21.2 % Mean Corpuscular Volume 84.9 FL 83.4 FL Mean Corpuscular Hemoglobin 28.9 PG 28.9 PG Mean Corpuscular Hemoglobin Concent 34.1 % 34.7 % Red Cell Distribution Width 15.7 % 15.5 % Platelet Count 15 TH/MM3 12 TH/MM3 Mean Platelet Volume 7.9 FL 8.1 FL CBC Comment AUTO DIFF AUTO DIFF Differential Total Cells Counted 8 10 Lymphocytes % 100 % 100 % Neutrophils # (Manual) 0.0 TH/MM3 0.0 TH/MM3 Differential Comment FINAL DIFF MANUAL FINAL DIFF MANUAL Platelet Estimate RARE RARE Platelet Morphology Comment NORMAL NORMAL Red Cell Morphology Comment NORMAL Neutrophils (%) (Auto) 3.9 % Lymphocytes (%) (Auto) 89.8 % Monocytes (%) (Auto) 2.4 % Eosinophils (%) (Auto) 3.9 % Basophils (%) (Auto) 0.0 % Neutrophils # (Auto) 0.0 TH/MM3 Lymphocytes # (Auto) 0.1 TH/MM3 Monocytes # (Auto) 0.0 TH/MM3 Eosinophils # (Auto) 0.0 TH/MM3 Basophils # (Auto) 0.0 TH/MM3 Laboratory Tests Test 06/06/17 05:00 06/07/17 05:35 Blood Urea Nitrogen 8 MG/DL 6 MG/DL Creatinine 0.41 MG/DL 0.51 MG/DL Random Glucose 111 MG/DL 114 MG/DL Calcium Level 8.5 MG/DL 9.0 MG/DL Sodium Level 139 MEQ/L 138 MEQ/L Potassium Level 3.0 MEQ/L 2.9 MEQ/L Chloride Level 105 MEQ/L 101 MEQ/L Carbon Dioxide Level 26.5 MEQ/L 28.9 MEQ/L Anion Gap 8 MEQ/L 8 MEQ/L Estimat Glomerular Filtration Rate 159 ML/MIN 123 ML/MIN Microbiology Date/Time Source Procedure Growth Status 06/06/17 00:45 Blood Peripheral Aerobic Blood Culture - Preliminary NO GROWTH IN 1 DAY Resulted 06/06/17 00:45 Blood Peripheral Anaerobic Blood Culture - Preliminary NO GROWTH IN 1 DAY Resulted 06/05/17 23:55 Blood Line Aerobic Blood Culture - Preliminary NO GROWTH IN 1 DAY Resulted 06/05/17 23:55 Blood Line Anaerobic Blood Culture - Preliminary NO GROWTH IN 1 DAY Resulted IMAGING: Chest X-Ray 06/06/17 0000 Signed Impressions: Service Date/Time: Tuesday, June 06, 2017 09:26 - CONCLUSION: Concern for pleural fluid bilaterally, left greater than right. Recommend repeat exam with upright PA and lateral views when clinically able. Jess Jay MD Head CT 06/04/17 0000 Signed Impressions: Service Date/Time: Sunday, June 04, 2017 16:02 - CONCLUSION: Normal examination for a patient of this age. No significant change has occurred. Alcides Longoria MD Chest X-Ray 05/31/17 0441 Signed Impressions: Service Date/Time: Wednesday, May 31, 2017 05:09 - CONCLUSION: The lungs are clear. Troy Clarke MD Chest CT 05/31/17 0000 Signed Impressions: Service Date/Time: Wednesday, May 31, 2017 17:30 - CONCLUSION: 1. No focal consolidation or effusion to suggest infection. No adenopathy. [id number] in superior vena cava. Jacinto Tello MD Abdomen/Pelvis CT 05/31/17 0000 Signed Impressions: Service Date/Time: Wednesday, May 31, 2017 17:30 - CONCLUSION: 1. Diffuse hepatic fatty infiltration. 2. Similarly, diffuse fatty infiltration/atrophy of the pancreas. 3. 7.6 cm cyst laterally in the left renal cortex. 4. No acute intraperitoneal or pelvic process to explain current clinical symptoms. No significant change from prior. Cristo Hughes MD PHYSICAL EXAMINATION GENERAL: No acute distress. Alert HEENT: The head is atraumatic. Extraocular movements grossly intact. Pupils reactive to light. No icterus. No erythema. No lesions. The mucosa is moist. NECK: Supple without adenopathy or swelling. LUNGS: Clear decreased breath sounds. HEART: Regular S1 and S2 without murmurs, rubs or gallops. ABDOMEN: Bowel sounds present. Soft, obese, nontender. EXTREMITIES: No clubbing, cyanosis or edema. SKIN: No rash. NEUROLOGIC: Non focal. PSYCHIATRIC: Calm and cooperative. IMPRESSION 1. Bacteremia. Klebsiella. 2. Febrile neutropenia/pancytopenia. Recurring fever. CXR shows pleural effusions, Blood cultures has no growth. 3. Acute myeloid leukemia. Receiving Rydapt. 4. ? sinusitis. clinically appears stable. RECOMMENDATIONS 1. Continue Aztreonam. 2. Continue vancomycin. 3. Continue Diflucan. 4. Monitor blood counts. 5. Monitor temp. 6. Monitor clinical status. Jim Grande MD Jun 07, 2017 15:06
[2017-06-07] MEDS: FLUCONAZOLE 400 MG PREMIX BAG 200 ML IV SCH (17:20)
[2017-06-08] VITALS (17 sets, daily range): BP systolic 96–134; BP diastolic 60–89; PULSE 84–124; RESP 16–18; TEMP 98.6–102.9; O2SAT 84–98
[2017-06-08] MEDS: ACETAMINOPHEN 325 MG TAB PO PRN ×5 (02:42→22:59)
[2017-06-08 05:26] LABS: HEMOGLOBIN 7.2 GM/DL (11.6-15.3); MEAN CELL VOLUME 82.6 FL (80.0-100.0); MEAN CORPUSCULAR HEMOGLOBIN 28.9 PG (27.0-34.0); MEAN PLATELET VOLUME 9.7 FL (7.0-11.0); RED CELL DISTRIBUTION WIDTH 14.7 % (11.6-17.2); WHITE BLOOD COUNT 0.1 TH/MM3 (4.0-11.0)
[2017-06-08] MEDS: AZTREONAM INJ 2,000 MG in SODIUM CHLORIDE 0.9% INJ 100 ML IV SCH (05:47)
[2017-06-08] MEDS: ACYCLOVIR 200 MG CAP PO SCH ×3 (05:47→22:05)
[2017-06-08 06:04] LABS: HEMATOCRIT 20.6 % (35.0-46.0)
[2017-06-08 06:05] LABS: PLATELET COUNT 6 TH/MM3 (150-450)
[2017-06-08 06:16] LABS: BICARBONATE 30.8 MEQ/L (21.0-32.0); CALCIUM 8.2 MG/DL (8.5-10.1); CREATININE 0.5 MG/DL (0.50-1.00)
[2017-06-08] MEDS ORDERED: SODIUM CHLOR 0.9% 250 ML INJ 250 ML IV ONE (07:45)
[2017-06-08] MEDS: NYSTAT/DIPHENHY/LIDO MOUTHWASH (Adult) 120ML SWISH-SWAL SCH ×4 (09:00→21:00)
[2017-06-08] MEDS: DOCUSATE SODIUM 100 MG CAP PO SCH (09:00)
[2017-06-08] MEDS: [UNRECOGNIZED DRUG - OTHER] PO SCH ×2 (09:00→22:04)
--- NOTE | 2017-06-08 09:30 | PD.ONC.PN ---
Subjective Subjective Remarks Tmax 101.6 overnight. Patient became hypoxic overnight, was started on O2 via NC. She is feeling better this morning. Objective Data Date Time Temp Pulse Resp B/P (MAP) Pulse Ox O2 Delivery O2 Flow Rate FiO2 06/08/17 04:08 98.6 87 16 112/70 (84) 98 06/08/17 02:43 101.1 06/08/17 00:18 93 06/08/17 00:16 96 06/08/17 00:15 99.8 85 16 121/67 (85) 88 06/07/17 21:56 101.6 06/07/17 20:03 106 06/07/17 19:56 100.0 100 16 130/80 (97) 95 06/07/17 16:07 99.1 79 16 116/70 (85) 91 06/07/17 13:39 99.1 77 16 95/59 92 06/07/17 13:17 99.2 89 16 96/66 95 06/07/17 13:07 99.2 89 16 96/66 (76) 95 06/08/17 06/08/17 06/08/17 07:00 15:00 23:00 Intake Total 800 ml Output Total 800 ml Balance 0 ml Result Diagram: 06/08/17 0440 06/08/17 0440 Laboratory Results Laboratory Tests Test 06/08/17 04:40 White Blood Count 0.1 TH/MM3 Red Blood Count 2.50 MIL/MM3 Hemoglobin 7.2 GM/DL Hematocrit 20.6 % Mean Corpuscular Volume 82.6 FL Mean Corpuscular Hemoglobin 28.9 PG Mean Corpuscular Hemoglobin Concent 35.0 % Red Cell Distribution Width 14.7 % Platelet Count 6 TH/MM3 Mean Platelet Volume 9.7 FL CBC Comment AUTO DIFF Blood Urea Nitrogen 10 MG/DL Creatinine 0.50 MG/DL Random Glucose 131 MG/DL Calcium Level 8.2 MG/DL Sodium Level 138 MEQ/L Potassium Level 2.5 MEQ/L Chloride Level 99 MEQ/L Carbon Dioxide Level 30.8 MEQ/L Anion Gap 8 MEQ/L Estimat Glomerular Filtration Rate 126 ML/MIN Magnesium Level 1.9 MG/DL Culture Results Microbiology Date/Time Source Procedure Growth Status 06/07/17 22:40 Blood Peripheral Aerobic Blood Culture Pending Received 06/07/17 22:40 Blood Peripheral Anaerobic Blood Culture Pending Received 06/07/17 22:00 Blood Line Aerobic Blood Culture Pending Received 06/07/17 22:00 Blood Line Anaerobic Blood Culture Pending Received 06/06/17 00:45 Blood Peripheral Aerobic Blood Culture - Preliminary NO GROWTH IN 1 DAY Resulted 06/06/17 00:45 Blood Peripheral Anaerobic Blood Culture - Preliminary NO GROWTH IN 1 DAY Resulted 06/05/17 23:55 Blood Line Aerobic Blood Culture - Preliminary NO GROWTH IN 1 DAY Resulted 06/05/17 23:55 Blood Line Anaerobic Blood Culture - Preliminary NO GROWTH IN 1 DAY Resulted Administered Medications Medications (Trade) Dose Ordered Sig/Zeynep Route PRN Reason Start Time Stop Time Status Last Admin Dose Admin Amlodipine Besylate (Norvasc) 5 mg DAILY PO 05/24/17 09:00 06/07/17 09:11 Losartan Potassium (Cozaar) 100 mg DAILY PO 05/24/17 09:00 06/07/17 09:11 Melatonin (Melatonin) 5 mg HS PRN PO insomnia 05/24/17 08:30 06/07/17 20:05 Hydrochlorothiazide (Hydrodiuril) 25 mg DAILY PO 05/24/17 09:00 06/07/17 09:11 Acetaminophen (Tylenol) 650 mg Q4H PRN PO fever>100.4 or premedication 05/24/17 08:45 06/08/17 02:42 Oxycodone HCl (Roxicodone) 5 mg Q4H PRN PO pain>5 05/24/17 12:15 06/03/17 20:41 Patient Own Medication PT OWN MED: RYDAPT (MIDOSTAUR... BID PO 05/31/17 09:00 06/13/17 21:01 06/07/17 20:06 Multi-Ingredient Mouthwash/Gargle (Magic Mouthwash Adult Liq) 5 ml QID SWISH-SWAL 05/24/17 13:00 06/07/17 20:03 Docusate Sodium (Colace) 100 mg DAILY PO 05/26/17 11:00 06/05/17 09:10 Magnesium Hydroxide (Milk Of Magnesia Liq) 30 ml DAILY PRN PO MILD - MODERATE CONSTIPATION 05/26/17 11:00 05/26/17 11:22 Sodium Chloride (NS Flush) 5 ml UNSCH PRN IV FLUSH SEE PROTOCOL TABLE 1/19/18 14:00 06/06/17 08:38 Heparin Sodium (Porcine) (Heparin Central Flush) 250 units UNSCH PRN IV FLUSH SEE PROTOCOL TABLE 05/28/17 14:00 05/29/17 04:51 Vancomycin HCl 1000 mg/Sodium Chloride 250 ml @ 250 mls/hr Q12H IV 05/31/17 08:00 06/07/17 20:04 Promethazine HCl (Phenergan Inj) 12.5 mg Q4H PRN IV-CENTRAL nausea/vomiting 05/31/17 09:30 06/04/17 20:50 Aztreonam 2000 mg/ Sodium Chloride 100 ml @ 200 mls/hr Q8H IV 06/01/17 14:00 06/08/17 05:47 Fluconazole/ Sodium Chloride 200 ml @ 100 mls/hr Q24H IV 06/03/17 15:00 06/07/17 17:20 Lidocaine HCl (Xylocaine 2% Viscous) 15 ml Q4H PRN SWISH-SPIT mouth pain 06/03/17 15:00 06/06/17 09:29 Acyclovir (Zovirax) 400 mg Q8HR PO 06/03/17 15:15 06/08/17 05:47 Carvedilol (Coreg) 6.25 mg DAILY PO 06/05/17 09:00 06/07/17 09:11 Diphenhydramine HCl (Benadryl) 25 mg Q4H PRN PO premedication for blood produc 06/04/17 16:00 06/07/17 12:05 Prochlorperazine Edisylate (Compazine Inj) 10 mg Q8H PRN IV PUSH nausea 06/05/17 10:00 06/07/17 20:04 Oxymetazoline HCl (Afrin 0.05% Diaz [place]) 2 spray Q12H PRN NASAL NASAL CONGESTION 06/05/17 11:00 06/05/17 14:01 Objective Remarks GENERAL: Pleasant female, lying supine in bed in nad. SKIN: Warm and dry. HEAD: Normocephalic. EYES: No injection or drainage. NECK: Supple, trachea midline. CARDIOVASCULAR: Regular rate and rhythm RESPIRATORY: diminished at bases, anterior malhotra clear. on O2 via NC GASTROINTESTINAL: Abdomen soft, non-tender, nondistended. EXTREMITIES: No cyanosis NEUROLOGICAL: awake and alert, normal speech. moving all extremities. Assessment/Plan Problem List: (1) Neutropenic fever ICD Codes: D70.9 - Neutropenia, unspecified; R50.81 - Fever presenting with conditions classified elsewhere Status: Acute Plan: --On Vanco + Azactam + Diflucan + Acyclovir. --BC + Klebsiella pneumoniae --most recent blood cultures negative. CT chest/abdomen pelvis show no nidus for infection. 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 tolerated D1 05/25: D2. monitor CBC, bilirubin. 05/26: D3. Tolerating chemotherapy. Add on daily stool softener with prn milk of magnesia for constipation. Monitor CBC. 05/27: D4. Continue chemotherapy. Transfuse 1 unit irradiated packed red blood cells for hemoglobin of 7.5 as her counts are trending down. Monitor CBC, CMP. 05.28: D5. tolerating chemo. no transfusion needed at present. 05/29: D6. chemo complete yesterday. give 2 units pRBC today 05/30. D7. no blood transfusion. monitor. 05/31. D8. +fever. start Vanco/Azactam. obtain BC. obtain CT. 06/01: D9. continue Vanco/Azactam. resume Coreg. 06/03: D11: continue antibiotics. supportive care 06/07: D15: feeling a bit improved. continue antibiotics. 1 unit pRBC 06/08: D16: continue antibiotics. 1 unit pRBC, 1 unit platelets. repeat BC (3) Hypertension ICD Codes: I10 - Essential (primary) hypertension Status: Chronic Plan: --on home medications. -- Stable (4) Stomatitis ICD Codes: K12.1 - Other forms of stomatitis Plan: --d/t chemotherapy --on magic mouthwash. Assessment 57y/o female admitted for salvage chemotherapy for relapse of acute myeloid leukemia, FLT3 positive. Attending Statement The exam, history, and the medical decision-making described in the above note were completed with the assistance of the mid-level provider. I reviewed and agree with the findings presented. I attest that I had a [id number] encounter with the patient on the same day, and personally performed and documented my assessment and findings in the medical record. fever with chills. repeat BC are negative so far A/B per ID Prbc and plat today. Problem Qualifiers (1) Hypertension: Qualified Codes: I10 - Essential (primary) hypertension Julianna Mcdaniel Jun 08, 2017 09:30 April Fonseca MD Jun 08, 2017 22:55
[2017-06-08 09:33] LABS: LYMPHOCYTES 100 % (9-44)
[2017-06-08] MEDS: amLODIPine BESYLATE 5 MG TAB PO SCH (09:37)
[2017-06-08] MEDS: POTASSIUM CHLORIDE 10 MEQ CONTROLLED RELEASE TAB PO SCH ×2 (09:37→22:05)
[2017-06-08] MEDS: PROCHLORPERAZINE INJ 10 MG/2 ML VIAL IV PUSH PRN ×2 (09:38→22:04)
[2017-06-08] MEDS: CARVEDILOL 6.25 MG TAB PO SCH (09:38)
[2017-06-08] MEDS: SODIUM CHLORIDE 0.9% FLUSH 10 ML FLUSH IV FLUSH PRN (09:38)
[2017-06-08] MEDS: LOSARTAN 50 MG TAB PO SCH (09:38)
[2017-06-08] MEDS: HYDROCHLOROTHIAZIDE 25 MG TAB PO SCH (09:38)
[2017-06-08] MEDS: POTASSIUM CHLOR 40 MEQ PREMIX 100 ML IV SCH ×2 (09:41→14:51)
--- NOTE | 2017-06-08 11:23 | HHI.IDPN ---
Note Infectious Disease Note Patient feels well. Her only complaint is tiredness and dry mouth. Having temp spikes. Coughing. No sputum production. Not SOB. No chills. Moving bowels. No diarrhea. No HOOPER. Receiving blood and platelet transfusions. Blood cultures are negative. Patient with acute myeloid leukemia, FLT3 positive. Admitted for salvage chemotherapy on 05/24/2017. PAST MEDICAL HISTORY 1. Hypertension. 2. Hypercholesteremia. 3. COPD. 4. Rheumatoid arthritis. 5. Depression. 6. Anxiety disorder. PAST SURGICAL HISTORY 1. Cholecystectomy. 2. Svqglp-E-Apth placement. 3. Complete hysterectomy. 4. Colon resection. ALLERGIES 1. SULFA. 2. CEFEPIME. 3. LATEX. ANTIBIOTICS 1. Aztreonam. 2. Vancomycin. 3. Diflucan. Current Medications Medications (Trade) Dose Ordered Sig/Zeynep Route PRN Reason Start Time Stop Time Status Last Admin Dose Admin Amlodipine Besylate (Norvasc) 5 mg DAILY PO 05/24/17 09:00 06/08/17 09:37 Losartan Potassium (Cozaar) 100 mg DAILY PO 05/24/17 09:00 06/08/17 09:38 Melatonin (Melatonin) 5 mg HS PRN PO insomnia 05/24/17 08:30 06/07/17 20:05 Hydrochlorothiazide (Hydrodiuril) 25 mg DAILY PO 05/24/17 09:00 06/08/17 09:38 Acetaminophen (Tylenol) 650 mg Q4H PRN PO fever>100.4 or premedication 05/24/17 08:45 06/08/17 09:37 Oxycodone HCl (Roxicodone) 5 mg Q4H PRN PO pain>5 05/24/17 12:15 06/03/17 20:41 Patient Own Medication PT OWN MED: RYDAPT (MIDOSTAUR... BID PO 05/31/17 09:00 06/13/17 21:01 06/08/17 09:00 Multi-Ingredient Mouthwash/Gargle (Magic Mouthwash Adult Liq) 5 ml QID SWISH-SWAL 05/24/17 13:00 06/08/17 09:00 Docusate Sodium (Colace) 100 mg DAILY PO 05/26/17 11:00 06/05/17 09:10 Magnesium Hydroxide (Milk Of Magnesia Liq) 30 ml DAILY PRN PO MILD - MODERATE CONSTIPATION 05/26/17 11:00 05/26/17 11:22 Sodium Chloride (NS Flush) 5 ml UNSCH PRN IV FLUSH SEE PROTOCOL TABLE 05/28/17 14:00 06/08/17 09:38 Heparin Sodium (Porcine) (Heparin Central Flush) 250 units UNSCH PRN IV FLUSH SEE PROTOCOL TABLE 05/28/17 14:00 05/29/17 04:51 Heparin Sodium (Porcine) (Heparin Central Flush) 500 units UNSCH IV FLUSH 05/28/17 14:00 Vancomycin HCl 1000 mg/Sodium Chloride 250 ml @ 250 mls/hr Q12H IV 05/31/17 08:00 06/07/17 20:04 Promethazine HCl (Phenergan Inj) 12.5 mg Q4H PRN IV-CENTRAL nausea/vomiting 05/31/17 09:30 06/04/17 20:50 Aztreonam 2000 mg/ Sodium Chloride 100 ml @ 200 mls/hr Q8H IV 06/01/17 14:00 06/08/17 05:47 [place]/ Glycerin (Tucks Pads) 1 applic UNSCH PRN TOPICAL HEMORRHOIDS 06/01/17 19:30 Lidocaine HCl (Xylocaine 2% Viscous) 15 ml Q4H PRN SWISH-SPIT mouth pain 06/03/17 15:00 06/06/17 09:29 Acyclovir (Zovirax) 400 mg Q8HR PO 06/03/17 15:15 06/08/17 05:47 Carvedilol (Coreg) 6.25 mg DAILY PO 06/05/17 09:00 06/08/17 09:38 Diphenhydramine HCl (Benadryl) 25 mg Q4H PRN PO premedication for blood produc 06/04/17 16:00 06/07/17 12:05 Prochlorperazine Edisylate (Compazine Inj) 10 mg Q8H PRN IV PUSH nausea 06/05/17 10:00 06/08/17 09:38 Oxymetazoline HCl (Afrin 0.05% Diaz [place]) 2 spray Q12H PRN NASAL NASAL CONGESTION 06/05/17 11:00 06/05/17 14:01 Sodium Chloride 250 ml @ 15 mls/hr ONCE ONCE IV 06/08/17 07:45 06/09/17 00:24 Potassium Chloride 100 ml @ 25 mls/hr Q4H IV 06/08/17 07:45 06/08/17 15:44 06/08/17 09:41 Potassium Chloride (KCl) 20 meq Q12HR PO 06/08/17 09:00 06/08/17 09:37 Micafungin Sodium 150 mg/Sodium Chloride 100 ml @ 100 mls/hr Q24H IV 06/08/17 11:00 OBJECTIVE: Vital Signs Date Time Temp Pulse Resp B/P (MAP) Pulse Ox O2 Delivery O2 Flow Rate FiO2 06/08/17 09:28 100.5 98 16 132/89 (103) 96 06/08/17 04:08 98.6 87 16 112/70 (84) 98 06/08/17 02:43 101.1 06/08/17 00:18 93 06/08/17 00:16 96 06/08/17 00:15 99.8 85 16 121/67 (85) 88 06/07/17 21:56 101.6 06/07/17 20:03 106 06/07/17 19:56 100.0 100 16 130/80 (97) 95 06/07/17 16:07 99.1 79 16 116/70 (85) 91 06/07/17 13:39 99.1 77 16 95/59 92 06/07/17 13:17 99.2 89 16 96/66 95 06/07/17 13:07 99.2 89 16 96/66 (76) 95 Laboratory Tests Test 06/07/17 05:35 06/08/17 04:40 White Blood Count 0.1 TH/MM3 0.1 TH/MM3 Red Blood Count 2.54 MIL/MM3 2.50 MIL/MM3 Hemoglobin 7.4 GM/DL 7.2 GM/DL Hematocrit 21.2 % 20.6 % Mean Corpuscular Volume 83.4 FL 82.6 FL Mean Corpuscular Hemoglobin 28.9 PG 28.9 PG Mean Corpuscular Hemoglobin Concent 34.7 % 35.0 % Red Cell Distribution Width 15.5 % 14.7 % Platelet Count 12 TH/MM3 6 TH/MM3 Mean Platelet Volume 8.1 FL 9.7 FL Neutrophils (%) (Auto) 3.9 % Lymphocytes (%) (Auto) 89.8 % Monocytes (%) (Auto) 2.4 % Eosinophils (%) (Auto) 3.9 % Basophils (%) (Auto) 0.0 % Neutrophils # (Auto) 0.0 TH/MM3 Lymphocytes # (Auto) 0.1 TH/MM3 Monocytes # (Auto) 0.0 TH/MM3 Eosinophils # (Auto) 0.0 TH/MM3 Basophils # (Auto) 0.0 TH/MM3 CBC Comment AUTO DIFF AUTO DIFF Differential Total Cells Counted 10 10 Lymphocytes % 100 % 100 % Neutrophils # (Manual) 0.0 TH/MM3 0.0 TH/MM3 Differential Comment FINAL DIFF MANUAL FINAL DIFF MANUAL Platelet Estimate RARE RARE Platelet Morphology Comment NORMAL NORMAL Laboratory Tests Test 06/07/17 05:35 06/08/17 04:40 Blood Urea Nitrogen 6 MG/DL 10 MG/DL Creatinine 0.51 MG/DL 0.50 MG/DL Random Glucose 114 MG/DL 131 MG/DL Calcium Level 9.0 MG/DL 8.2 MG/DL Sodium Level 138 MEQ/L 138 MEQ/L Potassium Level 2.9 MEQ/L 2.5 MEQ/L Chloride Level 101 MEQ/L 99 MEQ/L Carbon Dioxide Level 28.9 MEQ/L 30.8 MEQ/L Anion Gap 8 MEQ/L 8 MEQ/L Estimat Glomerular Filtration Rate 123 ML/MIN 126 ML/MIN Magnesium Level 1.9 MG/DL Microbiology Date/Time Source Procedure Growth Status 06/07/17 22:40 Blood Peripheral Aerobic Blood Culture - Preliminary NO GROWTH IN 1 DAY Resulted 06/07/17 22:40 Blood Peripheral Anaerobic Blood Culture - Preliminary NO GROWTH IN 1 DAY Resulted 06/07/17 22:00 Blood Line Aerobic Blood Culture - Preliminary NO GROWTH IN 1 DAY Resulted 06/07/17 22:00 Blood Line Anaerobic Blood Culture - Preliminary NO GROWTH IN 1 DAY Resulted 06/06/17 00:45 Blood Peripheral Aerobic Blood Culture - Preliminary NO GROWTH IN 2 DAYS Resulted 06/06/17 00:45 Blood Peripheral Anaerobic Blood Culture - Preliminary NO GROWTH IN 2 DAYS Resulted 06/05/17 23:55 Blood Line Aerobic Blood Culture - Preliminary NO GROWTH IN 2 DAYS Resulted 06/05/17 23:55 Blood Line Anaerobic Blood Culture - Preliminary NO GROWTH IN 2 DAYS Resulted IMAGING: Chest X-Ray 06/06/17 0000 Signed Impressions: Service Date/Time: Tuesday, June 06, 2017 09:26 - CONCLUSION: Concern for pleural fluid bilaterally, left greater than right. Recommend repeat exam with upright PA and lateral views when clinically able. Jess Jay MD Head CT 06/04/17 0000 Signed Impressions: Service Date/Time: Sunday, June 04, 2017 16:02 - CONCLUSION: Normal examination for a patient of this age. No significant change has occurred. Alcides Longoria MD Chest X-Ray 05/31/17 0441 Signed Impressions: Service Date/Time: Wednesday, May 31, 2017 05:09 - CONCLUSION: The lungs are clear. Troy Clarke MD Chest CT 05/31/17 0000 Signed Impressions: Service Date/Time: Wednesday, May 31, 2017 17:30 - CONCLUSION: 1. No focal consolidation or effusion to suggest infection. No adenopathy. Vmrfjx-b-Jfcy in superior vena cava. Jacinto Tello MD Abdomen/Pelvis CT 05/31/17 0000 Signed Impressions: Service Date/Time: Wednesday, May 31, 2017 17:30 - CONCLUSION: 1. Diffuse hepatic fatty infiltration. 2. Similarly, diffuse fatty infiltration/atrophy of the pancreas. 3. 7.6 cm cyst laterally in the left renal cortex. 4. No acute intraperitoneal or pelvic process to explain current clinical symptoms. No significant change from prior. Cristo Hughes MD PHYSICAL EXAMINATION GENERAL: No acute distress. Alert and oriented. HEENT: The head is atraumatic. Extraocular movements grossly intact. Pupils reactive to light. No icterus. No erythema. No lesions. The mucosa is moist. No thrush. NECK: Supple without adenopathy or swelling. LUNGS: Slight rhonchi diffusely. Good air movement. CHEST: Xfsxg-O-hfpt site without signs of infection. HEART: Regular S1 and S2 without murmurs, rubs or gallops. ABDOMEN: Bowel sounds present. Soft, obese, nontender. EXTREMITIES: No clubbing, cyanosis or edema. SKIN: No rash. Few ecchymoses at arms at blood draw sites. NEUROLOGIC: Non focal. PSYCHIATRIC: Calm and cooperative. IMPRESSION 1. Bacteremia. Klebsiella. Treated 2. Febrile neutropenia/pancytopenia. Recurring fever, now more persistent. Blood cultures has no growth. 3. Acute myeloid leukemia. Receiving Rydapt. 4. ? sinusitis. symptomatically better. clinically appears stable. RECOMMENDATIONS 1. Change Aztreonam to Imipenem in light of the persisting fever. 2. Continue vancomycin. 3. Change Diflucan to Micafungin. 4. Follow CXR. 5. Follow blood counts. 6. Monitor clinical status. 7. Monitor temps. Jim Grande MD Jun 08, 2017 11:23
--- NOTE | 2017-06-08 11:25 | RADRPT ---
EXAM DATE/TIME: 06/08/2017 11:10 [facility] COMPARISON: CT THORAX W CONTRAST, May 31, 2017, 17:30. CHEST SINGLE AP, June 06, 2017, 9:26. INDICATIONS : Evaluate for pleural effusion. MEDICAL HISTORY : Hypertension. Leukemia. Cardiovascular disease. Gastroesophageal reflux disease.Lupus, SURGICAL HISTORY : Infus a port. Cholecystectomy. Tubal ligation.Hysterectomy. ENCOUNTER: Subsequent ACUITY: 1 week PAIN SCORE: 0/10 LOCATION: Bilateral chest FINDINGS: PA and lateral views of the chest demonstrate the lungs to be symmetrically aerated without evidence of mass, infiltrate or effusion. The cardiomediastinal contours are unremarkable. Osseous structure s are intact. There is mild prominence of the mid and basilar pulmonary perivascular interstitium. No consolidating infiltrates. Right indwelling subclavian catheter are appreciated. CONCLUSION: Indwelling right Kgjzef-b-Kshb catheter. Minimal prominence of perivascular interstitium. No consolid ating infiltrates and no evidence of effusion. Melvin Castillo MD on June 08, 2017 at 11:21 Board Certified Radiologist. This report was verified electronically.
[2017-06-08] MEDS ORDERED: ASP: Documented allergy to Penicillins or Cephalosporins PRN (11:30)
[2017-06-08] MEDS ORDERED: MISCELLANEOUS PHARMACY INFORMATION XX PRN ×2 (11:30)
[2017-06-08] MEDS: VANCOMYCIN 1,000 MG/NS 250 ML IV SCH ×4 (12:45→13:00)
[2017-06-08] MEDS ORDERED: IMIPENEM/CILASTATIN INJ 500 MG in SODIUM CHLORIDE 0.9% INJ 100 ML IV SCH (13:00)
[2017-06-08] MEDS: MICAFUNGIN INJ 150 MG in SODIUM CHLORIDE 0.9% INJ 100 ML IV SCH (13:59)
[2017-06-08] MEDS: diphenhydrAMINE HCL 25 MG CAP PO PRN ×2 (14:51→18:51)
[2017-06-08 16:17] LABS: ALBUMIN 2.6 GM/DL (3.4-5.0); DIRECT BILIRUBIN ADULT 0.2 MG/DL (0.0-0.2)
[2017-06-08 16:19] LABS: INDIRECT BILIRUBIN 0.9 MG/DL (0.0-0.8); TOTAL BILIRUBIN ADULT 1.1 MG/DL (0.2-1.0); TOTAL PROTEIN 6.2 GM/DL (6.4-8.2)
[2017-06-08] MEDS: IMIPENEM/CILASTATIN INJ 500 MG in SODIUM CHLORIDE 0.9% INJ 100 ML IV SCH (22:06)
[2017-06-08] MEDS: guaiFENesin/DEXTROMETHORPHAN 200 MG/20 MG/10 ML CUP PO PRN (23:53)
[2017-06-09] VITALS (22 sets, daily range): BP systolic 118–130; BP diastolic 67–85; PULSE 74–117; RESP 16–20; TEMP 98.6–101.5; O2SAT 95–97
[2017-06-09] MEDS: VANCOMYCIN 1,000 MG/NS 250 ML IV SCH ×4 (01:11→13:23)
[2017-06-09] MEDS: IMIPENEM/CILASTATIN INJ 500 MG in SODIUM CHLORIDE 0.9% INJ 100 ML IV SCH ×4 (04:05→21:00)
[2017-06-09] MEDS: ACYCLOVIR 200 MG CAP PO SCH ×3 (05:54→20:59)
[2017-06-09] MEDS: ACETAMINOPHEN 325 MG TAB PO PRN ×4 (05:58→21:51)
[2017-06-09] MEDS: guaiFENesin/DEXTROMETHORPHAN 200 MG/20 MG/10 ML CUP PO PRN ×2 (05:59→17:47)
[2017-06-09 07:16] LABS: BICARBONATE 28.9 MEQ/L (21.0-32.0); CREATININE 0.56 MG/DL (0.50-1.00)
[2017-06-09 07:22] LABS: HEMATOCRIT 25.9 % (35.0-46.0); MEAN CELL VOLUME 82.5 FL (80.0-100.0); MEAN CORPUSCULAR HEMOGLOBIN 28.7 PG (27.0-34.0); MEAN CORPUSCULAR HGB CONC 34.7 % (32.0-36.0); MEAN PLATELET VOLUME 7.6 FL (7.0-11.0); RED BLOOD COUNT 3.14 MIL/MM3 (4.00-5.30); RED CELL DISTRIBUTION WIDTH 14.6 % (11.6-17.2); WHITE BLOOD COUNT 0.1 TH/MM3 (4.0-11.0)
[2017-06-09 07:28] LABS: PLATELET COUNT 13 TH/MM3 (150-450)
--- NOTE | 2017-06-09 08:42 | PD.ONC.PN ---
Subjective Subjective Remarks c/o cough, wheexing and white phlegm fever persists appetite is down no N/V Objective Data Date Time Temp Pulse Resp B/P (MAP) Pulse Ox O2 Delivery O2 Flow Rate FiO2 06/09/17 06:00 100.9 06/09/17 06:00 116 06/09/17 05:00 90 06/09/17 04:14 98 06/09/17 04:09 99.5 96 20 123/67 (85) 95 06/09/17 03:00 90 06/09/17 02:00 84 06/09/17 01:11 99.9 06/09/17 01:00 88 06/09/17 00:05 102 06/08/17 23:51 102.9 118 18 134/81 (98) 94 06/08/17 23:00 124 06/08/17 22:00 88 06/08/17 21:00 86 06/08/17 20:33 100.0 95 16 129/83 (98) 95 06/08/17 20:06 84 06/08/17 18:20 99.5 89 16 128/75 96 06/08/17 17:51 99.3 90 16 113/73 95 06/08/17 17:05 98.9 87 16 108/71 94 06/08/17 16:34 99.9 84 16 96/60 84 06/08/17 12:53 98.6 85 16 107/74 (85) 94 06/08/17 09:28 100.5 98 16 132/89 (103) 96 06/09/17 06/09/17 06/09/17 07:00 15:00 23:00 Intake Total 240 ml Output Total 400 ml Balance -160 ml Result Diagram: 06/09/17 0600 06/09/17 0600 Laboratory Results Laboratory Tests Test 06/09/17 06:00 White Blood Count 0.1 TH/MM3 Red Blood Count 3.14 MIL/MM3 Hemoglobin 9.0 GM/DL Hematocrit 25.9 % Mean Corpuscular Volume 82.5 FL Mean Corpuscular Hemoglobin 28.7 PG Mean Corpuscular Hemoglobin Concent 34.7 % Red Cell Distribution Width 14.6 % Platelet Count 13 TH/MM3 Mean Platelet Volume 7.6 FL CBC Comment AUTO DIFF Blood Urea Nitrogen 9 MG/DL Creatinine 0.56 MG/DL Random Glucose 105 MG/DL Calcium Level 9.0 MG/DL Sodium Level 137 MEQ/L Potassium Level 3.6 MEQ/L Chloride Level 102 MEQ/L Carbon Dioxide Level 28.9 MEQ/L Anion Gap 6 MEQ/L Estimat Glomerular Filtration Rate 111 ML/MIN Culture Results Microbiology Date/Time Source Procedure Growth Status 06/07/17 22:40 Blood Peripheral Aerobic Blood Culture - Preliminary NO GROWTH IN 1 DAY Resulted 06/07/17 22:40 Blood Peripheral Anaerobic Blood Culture - Preliminary NO GROWTH IN 1 DAY Resulted 06/07/17 22:00 Blood Line Aerobic Blood Culture - Preliminary NO GROWTH IN 1 DAY Resulted 06/07/17 22:00 Blood Line Anaerobic Blood Culture - Preliminary NO GROWTH IN 1 DAY Resulted Administered Medications Medications (Trade) Dose Ordered Sig/Zeynep Route PRN Reason Start Time Stop Time Status Last Admin Dose Admin Amlodipine Besylate (Norvasc) 5 mg DAILY PO 05/24/17 09:00 06/08/17 09:37 Losartan Potassium (Cozaar) 100 mg DAILY PO 05/24/17 09:00 06/08/17 09:38 Melatonin (Melatonin) 5 mg HS PRN PO insomnia 05/24/17 08:30 06/07/17 20:05 Hydrochlorothiazide (Hydrodiuril) 25 mg DAILY PO 05/24/17 09:00 06/08/17 09:38 Acetaminophen (Tylenol) 650 mg Q4H PRN PO fever>100.4 or premedication 05/24/17 08:45 06/09/17 05:58 Oxycodone HCl (Roxicodone) 5 mg Q4H PRN PO pain>5 05/24/17 12:15 06/03/17 20:41 Patient Own Medication PT OWN MED: RYDAPT (MIDOSTAUR... BID PO 05/31/17 09:00 06/13/17 21:01 06/08/17 22:04 Multi-Ingredient Mouthwash/Gargle (Magic Mouthwash Adult Liq) 5 ml QID SWISH-SWAL 05/24/17 13:00 06/08/17 18:00 Docusate Sodium (Colace) 100 mg DAILY PO 05/26/17 11:00 06/05/17 09:10 Magnesium Hydroxide (Milk Of Magnesia Liq) 30 ml DAILY PRN PO MILD - MODERATE CONSTIPATION 05/26/17 11:00 05/26/17 11:22 Sodium Chloride (NS Flush) 5 ml UNSCH PRN IV FLUSH SEE PROTOCOL TABLE 05/28/17 14:00 06/08/17 09:38 Heparin Sodium (Porcine) (Heparin Central Flush) 250 units UNSCH PRN IV FLUSH SEE PROTOCOL TABLE 05/28/17 14:00 05/29/17 04:51 Promethazine HCl (Phenergan Inj) 12.5 mg Q4H PRN IV-CENTRAL nausea/vomiting 05/31/17 09:30 06/04/17 20:50 Lidocaine HCl (Xylocaine 2% Viscous) 15 ml Q4H PRN SWISH-SPIT mouth pain 06/03/17 15:00 06/06/17 09:29 Acyclovir (Zovirax) 400 mg Q8HR PO 06/03/17 15:15 06/09/17 05:54 Carvedilol (Coreg) 6.25 mg DAILY PO 06/05/17 09:00 06/08/17 09:38 Diphenhydramine HCl (Benadryl) 25 mg Q4H PRN PO premedication for blood produc 06/04/17 16:00 06/08/17 18:51 Prochlorperazine Edisylate (Compazine Inj) 10 mg Q8H PRN IV PUSH nausea 06/05/17 10:00 06/08/17 22:04 Oxymetazoline HCl (Afrin 0.05% Diaz [place]) 2 spray Q12H PRN NASAL NASAL CONGESTION 06/05/17 11:00 06/05/17 14:01 Potassium Chloride (KCl) 20 meq Q12HR PO 06/08/17 09:00 06/08/17 22:05 Micafungin Sodium 150 mg/Sodium Chloride 100 ml @ 100 mls/hr Q24H IV 06/08/17 11:00 06/08/17 13:59 Vancomycin HCl 1000 mg/Sodium Chloride 250 ml @ 250 mls/hr Q12H IV 06/08/17 13:00 06/09/17 01:11 Imipenem/ Cilastatin Sodium 500 mg/Sodium Chloride 100 ml @ 200 mls/hr Q6H IV 06/08/17 21:00 06/09/17 04:05 Guaifenesin/ Dextromethorphan (Robitussin Dm 200-20 Mg/10 ml Liq) 10 ml Q6H PRN PO COUGH 06/08/17 23:45 06/09/17 05:59 Objective Remarks GENERAL: Well-nourished, well-developed patient. SKIN: Warm and dry. HEAD: Normocephalic. EYES: No scleral icterus. No injection or drainage. NECK: Supple, trachea midline. No JVD or lymphadenopathy. LYMPHATIC: No adenopathy. CARDIOVASCULAR: Regular rate and rhythm without murmurs. RESPIRATORY: Breath sounds equal bilaterally. No accessory muscle use. GASTROINTESTINAL: Abdomen soft, non-tender, nondistended. EXTREMITIES: No cyanosis, or edema. MUSCULOSKELETAL: Adequate muscle tone. NEUROLOGICAL: No obvious focal deficit. Awake, alert, and oriented x3. PSYCHIATRIC: Appropriate mood and affect; insight and judgment normal. Assessment/Plan Problem List: (1) Neutropenic fever ICD Codes: D70.9 - Neutropenia, unspecified; R50.81 - Fever presenting with conditions classified elsewhere Status: Acute Plan: --On Vanco + Azactam + Diflucan + Acyclovir. --BC + Klebsiella pneumoniae --most recent blood cultures negative. CT chest/abdomen pelvis show no nidus for infection. 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 tolerated D1 16: D2. monitor CBC, bilirubin. 05/26: D3. Tolerating chemotherapy. Add on daily stool softener with prn milk of magnesia for constipation. Monitor CBC. 05/27: D4. Continue chemotherapy. Transfuse 1 unit irradiated packed red blood cells for hemoglobin of 7.5 as her counts are trending down. Monitor CBC, CMP. .: D5. tolerating chemo. no transfusion needed at present. 05/29: D6. chemo complete yesterday. give 2 units pRBC today 05/30. D7. no blood transfusion. monitor. 05/31. D8. +fever. start Vanco/Azactam. obtain BC. obtain CT. 06/01: D9. continue Vanco/Azactam. resume Coreg. 06/03: D11: continue antibiotics. supportive care 06/07: D15: feeling a bit improved. continue antibiotics. 1 unit pRBC 06/08: D16: continue antibiotics. 1 unit pRBC, 1 unit platelets. repeat BC 06/09: D 17 No Tx today. Await BM recovery. Repeat BM bx on wednesday (3) Hypertension ICD Codes: I10 - Essential (primary) hypertension Status: Chronic Plan: --on home medications. -- Stable (4) Stomatitis ICD Codes: K12.1 - Other forms of stomatitis Plan: --d/t chemotherapy --on magic mouthwash. (5) Cough ICD Codes: R05 - Cough Plan: CXR last night negative start Duoneb and hycodon Assessment 57y/o female admitted for salvage chemotherapy for relapse of acute myeloid leukemia, FLT3 positive. Problem Qualifiers (1) Hypertension: Qualified Codes: I10 - Essential (primary) hypertension April Fonseca MD Jun 09, 2017 08:42
[2017-06-09 08:43] LABS: LYMPHOCYTES 93 % (9-44); MONOCYTES 7 % (0-8)
[2017-06-09] MEDS: PROCHLORPERAZINE INJ 10 MG/2 ML VIAL IV PUSH PRN ×2 (08:56→21:00)
[2017-06-09] MEDS: DOCUSATE SODIUM 100 MG CAP PO SCH (09:00)
[2017-06-09] MEDS: CARVEDILOL 6.25 MG TAB PO SCH (09:04)
[2017-06-09] MEDS: NYSTAT/DIPHENHY/LIDO MOUTHWASH (Adult) 120ML SWISH-SWAL SCH ×4 (09:04→21:09)
[2017-06-09] MEDS: POTASSIUM CHLORIDE 10 MEQ CONTROLLED RELEASE TAB PO SCH ×2 (09:04→20:59)
[2017-06-09] MEDS: amLODIPine BESYLATE 5 MG TAB PO SCH (09:05)
[2017-06-09] MEDS: LOSARTAN 50 MG TAB PO SCH (09:05)
[2017-06-09] MEDS: HYDROCHLOROTHIAZIDE 25 MG TAB PO SCH (09:05)
[2017-06-09] MEDS: [UNRECOGNIZED DRUG - OTHER] PO SCH ×2 (09:10→21:00)
[2017-06-09] MEDS: MICAFUNGIN INJ 150 MG in SODIUM CHLORIDE 0.9% INJ 100 ML IV SCH (12:20)
[2017-06-09] MEDS: HYDROcodone 5 MG/HOMATROPINE 1.5 MG SYRUP 5 ML CUP PO SCH ×2 (12:20→21:00)
--- NOTE | 2017-06-09 12:23 | HHI.IDPN ---
Note Infectious Disease Note Patient had episode of vomiting and diarrhea this am. Feels tired. Having temp spikes. Occasional coughing. No sputum production. Not SOB. No chills. Has mild HOOPER now. Receiving blood and platelet transfusions. Blood cultures are negative. Patient with acute myeloid leukemia, FLT3 positive. Admitted for salvage chemotherapy on 05/24/2017. PAST MEDICAL HISTORY 1. Hypertension. 2. Hypercholesteremia. 3. COPD. 4. Rheumatoid arthritis. 5. Depression. 6. Anxiety disorder. PAST SURGICAL HISTORY 1. Cholecystectomy. 2. Wapjdq-S-Sbis placement. 3. Complete hysterectomy. 4. Colon resection. ALLERGIES 1. SULFA. 2. CEFEPIME. 3. LATEX. ANTIBIOTICS 1. Imipenem. 2. Vancomycin. 3. Micafungin. 4. Acyclovir. OBJECTIVE: Vital Signs Date Time Temp Pulse Resp B/P (MAP) Pulse Ox O2 Delivery O2 Flow Rate FiO2 06/09/17 10:58 74 06/09/17 08:47 98.6 92 20 122/85 (97) 96 06/09/17 08:00 84 06/09/17 06:00 100.9 06/09/17 06:00 116 06/09/17 05:00 90 06/09/17 04:14 98 06/09/17 04:09 99.5 96 20 123/67 (85) 95 06/09/17 03:00 90 06/09/17 02:00 84 06/09/17 01:11 99.9 06/09/17 01:00 88 06/09/17 00:05 102 06/08/17 23:51 102.9 118 18 134/81 (98) 94 06/08/17 23:00 124 06/08/17 22:00 88 06/08/17 21:00 86 06/08/17 20:33 100.0 95 16 129/83 (98) 95 06/08/17 20:06 84 06/08/17 18:20 99.5 89 16 128/75 96 06/08/17 17:51 99.3 90 16 113/73 95 06/08/17 17:05 98.9 87 16 108/71 94 06/08/17 16:34 99.9 84 16 96/60 84 06/08/17 12:53 98.6 85 16 107/74 (85) 94 Laboratory Tests Test 06/08/17 04:40 06/09/17 06:00 White Blood Count 0.1 TH/MM3 0.1 TH/MM3 Red Blood Count 2.50 MIL/MM3 3.14 MIL/MM3 Hemoglobin 7.2 GM/DL 9.0 GM/DL Hematocrit 20.6 % 25.9 % Mean Corpuscular Volume 82.6 FL 82.5 FL Mean Corpuscular Hemoglobin 28.9 PG 28.7 PG Mean Corpuscular Hemoglobin Concent 35.0 % 34.7 % Red Cell Distribution Width 14.7 % 14.6 % Platelet Count 6 TH/MM3 13 TH/MM3 Mean Platelet Volume 9.7 FL 7.6 FL CBC Comment AUTO DIFF AUTO DIFF Differential Total Cells Counted 10 15 Lymphocytes % 100 % 93 % Neutrophils # (Manual) 0.0 TH/MM3 0.0 TH/MM3 Differential Comment FINAL DIFF MANUAL FINAL DIFF MANUAL Platelet Estimate RARE RARE Platelet Morphology Comment NORMAL NORMAL Haptoglobin 377 MG/DL Monocytes % 7 % Laboratory Tests Test 06/08/17 04:40 06/09/17 06:00 Blood Urea Nitrogen 10 MG/DL 9 MG/DL Creatinine 0.50 MG/DL 0.56 MG/DL Random Glucose 131 MG/DL 105 MG/DL Calcium Level 8.2 MG/DL 9.0 MG/DL Sodium Level 138 MEQ/L 137 MEQ/L Potassium Level 2.5 MEQ/L 3.6 MEQ/L Chloride Level 99 MEQ/L 102 MEQ/L Carbon Dioxide Level 30.8 MEQ/L 28.9 MEQ/L Anion Gap 8 MEQ/L 6 MEQ/L Estimat Glomerular Filtration Rate 126 ML/MIN 111 ML/MIN Magnesium Level 1.9 MG/DL Total Bilirubin 1.1 MG/DL Direct Bilirubin 0.2 MG/DL Indirect Bilirubin 0.9 MG/DL Aspartate Amino Transf (AST/SGOT) 9 U/L Alanine Aminotransferase (ALT/SGPT) 16 U/L Alkaline Phosphatase 62 U/L Lactate Dehydrogenase 123 U/L Total Protein 6.2 GM/DL Albumin 2.6 GM/DL Microbiology Date/Time Source Procedure Growth Status 06/07/17 22:40 Blood Peripheral Aerobic Blood Culture - Preliminary NO GROWTH IN 2 DAYS Resulted 06/07/17 22:40 Blood Peripheral Anaerobic Blood Culture - Preliminary NO GROWTH IN 2 DAYS Resulted 06/07/17 22:00 Blood Line Aerobic Blood Culture - Preliminary NO GROWTH IN 2 DAYS Resulted 06/07/17 22:00 Blood Line Anaerobic Blood Culture - Preliminary NO GROWTH IN 2 DAYS Resulted IMAGING: Chest X-Ray 06/06/17 0000 Signed Impressions: Service Date/Time: Tuesday, June 06, 2017 09:26 - CONCLUSION: Concern for pleural fluid bilaterally, left greater than right. Recommend repeat exam with upright PA and lateral views when clinically able. Jess Jay MD Head CT 06/04/17 0000 Signed Impressions: Service Date/Time: Sunday, June 04, 2017 16:02 - CONCLUSION: Normal examination for a patient of this age. No significant change has occurred. Alcides Longoria MD Chest X-Ray 05/31/17 0441 Signed Impressions: Service Date/Time: Wednesday, May 31, 2017 05:09 - CONCLUSION: The lungs are clear. Troy Clarke MD Chest CT 05/31/17 0000 Signed Impressions: Service Date/Time: Wednesday, May 31, 2017 17:30 - CONCLUSION: 1. No focal consolidation or effusion to suggest infection. No adenopathy. Cylwug-p-Pebp in superior vena cava. Jacinto Tello MD Abdomen/Pelvis CT 05/31/17 0000 Signed Impressions: Service Date/Time: Wednesday, May 31, 2017 17:30 - CONCLUSION: 1. Diffuse hepatic fatty infiltration. 2. Similarly, diffuse fatty infiltration/atrophy of the pancreas. 3. 7.6 cm cyst laterally in the left renal cortex. 4. No acute intraperitoneal or pelvic process to explain current clinical symptoms. No significant change from prior. Cristo Hughes MD PHYSICAL EXAMINATION GENERAL: No acute distress. Alert and oriented. HEENT: The head is atraumatic. Extraocular movements grossly intact. Pupils reactive to light. No icterus. No erythema. No lesions. The mucosa is moist. No thrush. NECK: Supple without adenopathy or swelling. LUNGS: Clear. CHEST: Utkxe-I-zsdk site without signs of infection. HEART: Regular S1 and S2 without murmurs, rubs or gallops. ABDOMEN: Bowel sounds present. Soft, obese, nontender. EXTREMITIES: No clubbing, cyanosis or edema. SKIN: No rash. Few ecchymoses at arms at blood draw sites. NEUROLOGIC: Non focal. PSYCHIATRIC: Calm and cooperative. IMPRESSION 1. Bacteremia. Klebsiella. Treated 2. Febrile neutropenia/pancytopenia. Recurring fever. Blood cultures has no growth. CXR without signs of pneumonia. 3. Acute myeloid leukemia. Receiving Rydapt. 4. ? sinusitis. symptomatically better. The Rydapt also has side effects which could explain some of the symptoms. RECOMMENDATIONS 1. Continue Imipenem. 2. Continue vancomycin. 3. Continue Micafungin. 4. Follow blood counts. 5. Follow blood cultures. 6. Monitor clinical status. 7. Monitor temps. Jim Grande MD Jun 09, 2017 12:23
[2017-06-09] MEDS: RESP: ALBUTEROL 2.5 MG/IPRATROPIUM 0.5 MG NEB (SCH) NEB ×2 (13:54→19:06)
[2017-06-10] VITALS (26 sets, daily range): BP systolic 105–155; BP diastolic 66–82; PULSE 84–122; RESP 16–23; TEMP 99–102.4; O2SAT 93–97
[2017-06-10] MEDS: VANCOMYCIN 1,000 MG/NS 250 ML IV SCH ×4 (02:04→13:43)
[2017-06-10] MEDS: IMIPENEM/CILASTATIN INJ 500 MG in SODIUM CHLORIDE 0.9% INJ 100 ML IV SCH ×4 (03:27→21:09)
[2017-06-10] MEDS: ACETAMINOPHEN 325 MG TAB PO PRN ×4 (04:17→21:00)
[2017-06-10] MEDS: guaiFENesin/DEXTROMETHORPHAN 200 MG/20 MG/10 ML CUP PO PRN ×2 (04:19→14:09)
[2017-06-10] MEDS: ACYCLOVIR 200 MG CAP PO SCH ×3 (05:31→20:57)
[2017-06-10 06:23] LABS: HEMATOCRIT 23.9 % (35.0-46.0); HEMOGLOBIN 8.3 GM/DL (11.6-15.3); MEAN CELL VOLUME 82.6 FL (80.0-100.0); MEAN CORPUSCULAR HEMOGLOBIN 28.8 PG (27.0-34.0); MEAN CORPUSCULAR HGB CONC 34.9 % (32.0-36.0); RED BLOOD COUNT 2.89 MIL/MM3 (4.00-5.30); WHITE BLOOD COUNT 0.1 TH/MM3 (4.0-11.0)
[2017-06-10 06:47] LABS: BICARBONATE 28.1 MEQ/L (21.0-32.0); CALCIUM 8.8 MG/DL (8.5-10.1); CREATININE 0.5 MG/DL (0.50-1.00)
[2017-06-10 06:48] LABS: PLATELET COUNT 9 TH/MM3 (150-450)
[2017-06-10] MEDS ORDERED: POTASSIUM CHLOR 20 MEQ PREMIX 100 ML IV ONE (07:45)
[2017-06-10] MEDS: RESP: ALBUTEROL 2.5 MG/IPRATROPIUM 0.5 MG NEB (SCH) NEB ×3 (08:22→19:28)
[2017-06-10] MEDS: DOCUSATE SODIUM 100 MG CAP PO SCH (08:56)
[2017-06-10] MEDS: HYDROCHLOROTHIAZIDE 25 MG TAB PO SCH (09:01)
[2017-06-10] MEDS: POTASSIUM CHLORIDE 10 MEQ CONTROLLED RELEASE TAB PO SCH ×2 (09:01→20:56)
[2017-06-10] MEDS: diphenhydrAMINE HCL 25 MG CAP PO PRN (09:01)
[2017-06-10] MEDS: amLODIPine BESYLATE 5 MG TAB PO SCH (09:01)
[2017-06-10] MEDS: LOSARTAN 50 MG TAB PO SCH (09:02)
[2017-06-10] MEDS: HYDROcodone 5 MG/HOMATROPINE 1.5 MG SYRUP 5 ML CUP PO SCH ×2 (09:02→20:55)
[2017-06-10] MEDS: CARVEDILOL 6.25 MG TAB PO SCH (09:02)
[2017-06-10] MEDS: PROCHLORPERAZINE INJ 10 MG/2 ML VIAL IV PUSH PRN ×2 (09:03→18:51)
[2017-06-10] MEDS: NYSTAT/DIPHENHY/LIDO MOUTHWASH (Adult) 120ML SWISH-SWAL SCH ×4 (09:03→20:55)
[2017-06-10] MEDS: SODIUM CHLORIDE 0.9% FLUSH 10 ML FLUSH IV FLUSH PRN (09:03)
--- NOTE | 2017-06-10 09:28 | PD.ONC.PN ---
Subjective Subjective Remarks Tmax 101.5 overnight. Patient not feeling well today. Continues to have cough, productive of mucous. When she coughed last night she had some nosebleed which spontaneously stopped. Nausea improving. Objective Data Date Time Temp Pulse Resp B/P (MAP) Pulse Ox O2 Delivery O2 Flow Rate FiO2 06/10/17 06:00 92 06/10/17 05:00 100 06/10/17 04:26 Nasal Cannula 2.00 06/10/17 04:19 100.9 122 23 155/82 (106) 95 06/10/17 04:03 94 06/10/17 03:00 94 06/10/17 02:00 96 06/10/17 01:00 96 06/10/17 00:06 100.4 97 22 105/68 (80) 97 06/10/17 00:06 97 06/09/17 23:06 102 06/09/17 22:09 117 06/09/17 21:00 104 06/09/17 20:56 100.4 105 20 130/82 (98) 97 06/09/17 19:43 104 06/09/17 18:48 16 06/09/17 17:54 101.5 06/09/17 16:23 98.9 85 18 118/78 (91) 96 06/09/17 16:00 85 06/09/17 12:22 99.4 90 16 125/72 (89) 96 06/09/17 12:00 86 06/09/17 10:58 74 06/10/17 06/10/17 06/10/17 07:00 15:00 23:00 Output Total 600 ml Balance -600 ml Result Diagram: 06/10/17 0538 06/10/17 0538 Laboratory Results Laboratory Tests Test 06/10/17 05:38 White Blood Count 0.1 TH/MM3 Red Blood Count 2.89 MIL/MM3 Hemoglobin 8.3 GM/DL Hematocrit 23.9 % Mean Corpuscular Volume 82.6 FL Mean Corpuscular Hemoglobin 28.8 PG Mean Corpuscular Hemoglobin Concent 34.9 % Red Cell Distribution Width 14.0 % Platelet Count 9 TH/MM3 Mean Platelet Volume 8.0 FL CBC Comment AUTO DIFF Blood Urea Nitrogen 8 MG/DL Creatinine 0.50 MG/DL Random Glucose 119 MG/DL Calcium Level 8.8 MG/DL Sodium Level 137 MEQ/L Potassium Level 3.2 MEQ/L Chloride Level 101 MEQ/L Carbon Dioxide Level 28.1 MEQ/L Anion Gap 8 MEQ/L Estimat Glomerular Filtration Rate 126 ML/MIN Culture Results Microbiology Date/Time Source Procedure Growth Status 06/09/17 19:42 Blood Peripheral Aerobic Blood Culture Pending Received 06/09/17 19:42 Blood Peripheral Anaerobic Blood Culture Pending Received 06/09/17 19:37 Blood Peripheral Aerobic Blood Culture Pending Received 06/09/17 19:37 Blood Peripheral Anaerobic Blood Culture Pending Received 06/09/17 19:25 Blood Line Aerobic Blood Culture Pending Received 06/09/17 19:25 Blood Line Anaerobic Blood Culture Pending Received 06/07/17 22:40 Blood Peripheral Aerobic Blood Culture - Preliminary NO GROWTH IN 2 DAYS Resulted 06/07/17 22:40 Blood Peripheral Anaerobic Blood Culture - Preliminary NO GROWTH IN 2 DAYS Resulted 06/07/17 22:00 Blood Line Aerobic Blood Culture - Preliminary NO GROWTH IN 2 DAYS Resulted 06/07/17 22:00 Blood Line Anaerobic Blood Culture - Preliminary NO GROWTH IN 2 DAYS Resulted Administered Medications Medications (Trade) Dose Ordered Sig/Zeynep Route PRN Reason Start Time Stop Time Status Last Admin Dose Admin Amlodipine Besylate (Norvasc) 5 mg DAILY PO 05/24/17 09:00 06/10/17 09:01 Losartan Potassium (Cozaar) 100 mg DAILY PO 05/24/17 09:00 06/10/17 09:02 Melatonin (Melatonin) 5 mg HS PRN PO insomnia 05/24/17 08:30 06/07/17 20:05 Hydrochlorothiazide (Hydrodiuril) 25 mg DAILY PO 05/24/17 09:00 06/10/17 09:01 Acetaminophen (Tylenol) 650 mg Q4H PRN PO fever>100.4 or premedication 05/24/17 08:45 06/10/17 09:01 Oxycodone HCl (Roxicodone) 5 mg Q4H PRN PO pain>5 05/24/17 12:15 06/03/17 20:41 Patient Own Medication PT OWN MED: RYDAPT (MIDOSTAUR... BID PO 05/31/17 09:00 06/13/17 21:01 06/09/17 21:00 Multi-Ingredient Mouthwash/Gargle (Magic Mouthwash Adult Liq) 5 ml QID SWISH-SWAL 05/24/17 13:00 06/10/17 09:03 Docusate Sodium (Colace) 100 mg DAILY PO 05/26/17 11:00 06/05/17 09:10 Magnesium Hydroxide (Milk Of Magnesia Liq) 30 ml DAILY PRN PO MILD - MODERATE CONSTIPATION 05/26/17 11:00 05/26/17 11:22 Sodium Chloride (NS Flush) 5 ml UNSCH PRN IV FLUSH SEE PROTOCOL TABLE 05/28/17 14:00 06/10/17 09:03 Heparin Sodium (Porcine) (Heparin Central Flush) 250 units UNSCH PRN IV FLUSH SEE PROTOCOL TABLE 05/28/17 14:00 05/29/17 04:51 Promethazine HCl (Phenergan Inj) 12.5 mg Q4H PRN IV-CENTRAL nausea/vomiting 05/31/17 09:30 06/04/17 20:50 Lidocaine HCl (Xylocaine 2% Viscous) 15 ml Q4H PRN SWISH-SPIT mouth pain 06/03/17 15:00 06/06/17 09:29 Acyclovir (Zovirax) 400 mg Q8HR PO 06/03/17 15:15 06/10/17 05:31 Carvedilol (Coreg) 6.25 mg DAILY PO 06/05/17 09:00 06/10/17 09:02 Diphenhydramine HCl (Benadryl) 25 mg Q4H PRN PO premedication for blood produc 06/04/17 16:00 06/10/17 09:01 Prochlorperazine Edisylate (Compazine Inj) 10 mg Q8H PRN IV PUSH nausea 06/05/17 10:00 06/10/17 09:03 Oxymetazoline HCl (Afrin 0.05% Diaz [place]) 2 spray Q12H PRN NASAL NASAL CONGESTION 06/05/17 11:00 06/05/17 14:01 Potassium Chloride (KCl) 20 meq Q12HR PO 06/08/17 09:00 06/10/17 09:01 Micafungin Sodium 150 mg/Sodium Chloride 100 ml @ 100 mls/hr Q24H IV 06/08/17 11:00 06/09/17 12:20 Vancomycin HCl 1000 mg/Sodium Chloride 250 ml @ 250 mls/hr Q12H IV 06/08/17 13:00 06/10/17 02:04 Imipenem/ Cilastatin Sodium 500 mg/Sodium Chloride 100 ml @ 200 mls/hr Q6H IV 06/08/17 21:00 06/10/17 09:02 Guaifenesin/ Dextromethorphan (Robitussin Dm 200-20 Mg/10 ml Liq) 10 ml Q6H PRN PO COUGH 06/08/17 23:45 06/10/17 04:19 Albuterol/ Ipratropium (Duoneb Neb) 1 ampule Q6HR WHILE AWAKE NEB NEB 06/09/17 14:00 06/10/17 08:22 Hydrocodone Bit/ Homatropine Methylb (Hycodan Liq) 5 ml BID PO 06/09/17 09:00 06/10/17 09:02 Objective Remarks GENERAL: Middle aged female, lying in bed, chronically ill appearing. SKIN: Warm and dry. HEAD: Normocephalic. EYES: No injection or drainage. NECK: Supple, trachea midline. CARDIOVASCULAR: Regular rate and rhythm RESPIRATORY: Breath sounds equal bilaterally. No accessory muscle use. GASTROINTESTINAL: Abdomen soft, non-tender, nondistended. EXTREMITIES: No cyanosis NEUROLOGICAL: awake and alert, normal speech. moving all extremities. Assessment/Plan Problem List: (1) Neutropenic fever ICD Codes: D70.9 - Neutropenia, unspecified; R50.81 - Fever presenting with conditions classified elsewhere Status: Acute Plan: --On Vanco + Imipenem + Diflucan + Acyclovir. --BC + Klebsiella pneumoniae --most recent blood cultures negative. CT chest/abdomen pelvis show no nidus for infection. 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 tolerated D1 116: D2. monitor CBC, bilirubin. 05/26: D3. Tolerating chemotherapy. Add on daily stool softener with prn milk of magnesia for constipation. Monitor CBC. 18: D4. Continue chemotherapy. Transfuse 1 unit irradiated packed red blood cells for hemoglobin of 7.5 as her counts are trending down. Monitor CBC, CMP. 1.19: D5. tolerating chemo. no transfusion needed at present. 05/29: D6. chemo complete yesterday. give 2 units pRBC today 05/30. D7. no blood transfusion. monitor. 05/31. D8. +fever. start Vanco/Azactam. obtain BC. obtain CT. 06/01: D9. continue Vanco/Azactam. resume Coreg. 06/03: D11: continue antibiotics. supportive care 06/07: D15: feeling a bit improved. continue antibiotics. 1 unit pRBC 06/08: D16: continue antibiotics. 1 unit pRBC, 1 unit platelets. repeat BC 06/09: D 17 No Tx today. Await BM recovery. Repeat BM bx on saturday 06/10: D 18: 1 unit platelets. continue antibiotics. (3) Hypertension ICD Codes: I10 - Essential (primary) hypertension Status: Chronic Plan: --on home medications. -- Stable (4) Stomatitis ICD Codes: K12.1 - Other forms of stomatitis Plan: --d/t chemotherapy --on magic mouthwash. (5) Cough ICD Codes: R05 - Cough Plan: CXR last night negative continue Duoneb and hycodon Assessment 57y/o female admitted for salvage chemotherapy for relapse of acute myeloid leukemia, FLT3 positive. Problem Qualifiers (1) Hypertension: Qualified Codes: I10 - Essential (primary) hypertension Julianna Mcdaniel Jun 10, 2017 09:28 April Fonseca MD Jun 11, 2017 18:21
[2017-06-10 09:59] LABS: LYMPHOCYTES 100 % (9-44); ROULEAUX PRESENT (NORMAL)
[2017-06-10] MEDS: [UNRECOGNIZED DRUG - OTHER] PO SCH ×2 (10:18→20:56)
--- NOTE | 2017-06-10 10:53 | HHI.IDPN ---
Note Infectious Disease Note Patient continues to feel tired. Blood counts remain profoundly low. Having temp spikes. Had nosebleed earlier. Coughing. says she is bringing up stringy white phlegm. Not SOB. No chills. Stools not loose. Receiving blood and platelet transfusions. Blood cultures are negative. Patient with acute myeloid leukemia, FLT3 positive. Admitted for salvage chemotherapy on 05/24/2017. PAST MEDICAL HISTORY 1. Hypertension. 2. Hypercholesteremia. 3. COPD. 4. Rheumatoid arthritis. 5. Depression. 6. Anxiety disorder. PAST SURGICAL HISTORY 1. Cholecystectomy. 2. Exacpg-[id number]-Mwls placement. 3. Complete hysterectomy. 4. Colon resection. ALLERGIES 1. SULFA. 2. CEFEPIME. 3. LATEX. ANTIBIOTICS 1. Imipenem. 2. Vancomycin. 3. Micafungin. 4. Acyclovir. OBJECTIVE: Vital Signs Date Time Temp Pulse Resp B/P (MAP) Pulse Ox O2 Delivery O2 Flow Rate FiO2 06/10/17 10:15 99.0 104 16 127/70 93 06/10/17 08:00 99.0 98 18 136/70 (92) 97 06/10/17 08:00 95 Room Air 06/10/17 06:00 92 06/10/17 05:00 100 06/10/17 04:26 Nasal Cannula 2.00 06/10/17 04:19 100.9 122 23 155/82 (106) 95 06/10/17 04:03 94 06/10/17 03:00 94 06/10/17 02:00 96 06/10/17 01:00 96 06/10/17 00:06 100.4 97 22 105/68 (80) 97 06/10/17 00:06 97 06/09/17 23:06 102 06/09/17 22:09 117 06/09/17 21:00 104 06/09/17 20:56 100.4 105 20 130/82 (98) 97 06/09/17 19:43 104 06/09/17 18:48 16 06/09/17 17:54 101.5 06/09/17 16:23 98.9 85 18 118/78 (91) 96 06/09/17 16:00 85 06/09/17 12:22 99.4 90 16 125/72 (89) 96 06/09/17 12:00 86 06/09/17 10:58 74 Laboratory Tests Test 06/09/17 06:00 06/10/17 05:38 White Blood Count 0.1 TH/MM3 0.1 TH/MM3 Red Blood Count 3.14 MIL/MM3 2.89 MIL/MM3 Hemoglobin 9.0 GM/DL 8.3 GM/DL Hematocrit 25.9 % 23.9 % Mean Corpuscular Volume 82.5 FL 82.6 FL Mean Corpuscular Hemoglobin 28.7 PG 28.8 PG Mean Corpuscular Hemoglobin Concent 34.7 % 34.9 % Red Cell Distribution Width 14.6 % 14.0 % Platelet Count 13 TH/MM3 9 TH/MM3 Mean Platelet Volume 7.6 FL 8.0 FL CBC Comment AUTO DIFF AUTO DIFF Differential Total Cells Counted 15 10 Lymphocytes % 93 % 100 % Monocytes % 7 % Neutrophils # (Manual) 0.0 TH/MM3 0.0 TH/MM3 Differential Comment FINAL DIFF MANUAL FINAL DIFF MANUAL Platelet Estimate RARE RARE Platelet Morphology Comment NORMAL NORMAL [facility] PRESENT Laboratory Tests Test 06/09/17 06:00 06/10/17 05:38 Blood Urea Nitrogen 9 MG/DL 8 MG/DL Creatinine 0.56 MG/DL 0.50 MG/DL Random Glucose 105 MG/DL 119 MG/DL Calcium Level 9.0 MG/DL 8.8 MG/DL Sodium Level 137 MEQ/L 137 MEQ/L Potassium Level 3.6 MEQ/L 3.2 MEQ/L Chloride Level 102 MEQ/L 101 MEQ/L Carbon Dioxide Level 28.9 MEQ/L 28.1 MEQ/L Anion Gap 6 MEQ/L 8 MEQ/L Estimat Glomerular Filtration Rate 111 ML/MIN 126 ML/MIN Microbiology Date/Time Source Procedure Growth Status 06/09/17 19:42 Blood Peripheral Aerobic Blood Culture Pending Received 06/09/17 19:42 Blood Peripheral Anaerobic Blood Culture Pending Received 06/09/17 19:37 Blood Peripheral Aerobic Blood Culture Pending Received 06/09/17 19:37 Blood Peripheral Anaerobic Blood Culture Pending Received 06/09/17 19:25 Blood Line Aerobic Blood Culture Pending Received 06/09/17 19:25 Blood Line Anaerobic Blood Culture Pending Received 06/07/17 22:40 Blood Peripheral Aerobic Blood Culture - Preliminary NO GROWTH IN 2 DAYS Resulted 06/07/17 22:40 Blood Peripheral Anaerobic Blood Culture - Preliminary NO GROWTH IN 2 DAYS Resulted 06/07/17 22:00 Blood Line Aerobic Blood Culture - Preliminary NO GROWTH IN 2 DAYS Resulted 06/07/17 22:00 Blood Line Anaerobic Blood Culture - Preliminary NO GROWTH IN 2 DAYS Resulted IMAGING: Chest X-Ray 06/06/17 0000 Signed Impressions: Service Date/Time: Tuesday, June 06, 2017 09:26 - CONCLUSION: Concern for pleural fluid bilaterally, left greater than right. Recommend repeat exam with upright PA and lateral views when clinically able. Jess Jay MD Head CT 06/04/17 0000 Signed Impressions: Service Date/Time: Sunday, June 04, 2017 16:02 - CONCLUSION: Normal examination for a patient of this age. No significant change has occurred. Alcides Longoria MD Chest X-Ray 05/31/17 0441 Signed Impressions: Service Date/Time: Wednesday, May 31, 2017 05:09 - CONCLUSION: The lungs are clear. Troy Clarke MD Chest CT 05/31/17 0000 Signed Impressions: Service Date/Time: Wednesday, May 31, 2017 17:30 - CONCLUSION: 1. No focal consolidation or effusion to suggest infection. No adenopathy. Czutvb-v-Rmpw in superior vena cava. Jacinto Tello MD Abdomen/Pelvis CT 05/31/17 0000 Signed Impressions: Service Date/Time: Wednesday, May 31, 2017 17:30 - CONCLUSION: 1. Diffuse hepatic fatty infiltration. 2. Similarly, diffuse fatty infiltration/atrophy of the pancreas. 3. 7.6 cm cyst laterally in the left renal cortex. 4. No acute intraperitoneal or pelvic process to explain current clinical symptoms. No significant change from prior. Cristo Hughes MD PHYSICAL EXAMINATION GENERAL: No acute distress. Looks fatigued. HEENT: The head is atraumatic. Extraocular movements grossly intact. Pupils reactive to light. No icterus. No erythema. No lesions. The mucosa is moist. No thrush. NECK: Supple without adenopathy or swelling. LUNGS: Clear breath sounds. CHEST: Mgqeo-F-kfhg site without signs of infection. HEART: Regular S1 and S2 without murmurs, rubs or gallops. ABDOMEN: Bowel sounds present. Soft, obese, nontender. EXTREMITIES: No clubbing, cyanosis or edema. SKIN: No rash. NEUROLOGIC: Non focal. PSYCHIATRIC: Calm and cooperative. IMPRESSION 1. Bacteremia. Klebsiella. Treated 2. Febrile neutropenia/pancytopenia. Recurring fever. Blood cultures has no growth. CXR without signs of pneumonia. 3. Acute myeloid leukemia. Receiving Rydapt. 4. ? sinusitis. The Rydapt also has side effects which could explain some of the symptoms. RECOMMENDATIONS 1. Continue Imipenem. 2. Continue vancomycin. 3. Continue Micafungin. 4. Continue Acyclovir. 5. Follow blood counts. 6. Follow blood cultures. 7. Monitor temps. 8. Sputum culture. Ordered. Jim Grande MD Jun 10, 2017 10:52
[2017-06-10] MEDS: MICAFUNGIN INJ 150 MG in SODIUM CHLORIDE 0.9% INJ 100 ML IV SCH (12:26)
[2017-06-10] MEDS: MELATONIN 5 MG TAB PO PRN (20:55)
[2017-06-11] VITALS (32 sets, daily range): BP systolic 94–129; BP diastolic 49–88; PULSE 84–110; RESP 16–18; TEMP 98.2–101.7; O2SAT 93–99
[2017-06-11] MEDS: VANCOMYCIN 1,000 MG/NS 250 ML IV SCH ×2 (01:55)
[2017-06-11] MEDS: guaiFENesin/DEXTROMETHORPHAN 200 MG/20 MG/10 ML CUP PO PRN (01:56)
[2017-06-11] MEDS: ACETAMINOPHEN 325 MG TAB PO PRN ×3 (02:04→21:12)
[2017-06-11] MEDS: IMIPENEM/CILASTATIN INJ 500 MG in SODIUM CHLORIDE 0.9% INJ 100 ML IV SCH ×3 (03:43→20:59)
[2017-06-11] MEDS: ACYCLOVIR 200 MG CAP PO SCH ×3 (05:21→20:41)
[2017-06-11 05:49] LABS: HEMOGLOBIN 7.2 GM/DL (11.6-15.3); MEAN CELL VOLUME 82.3 FL (80.0-100.0); MEAN CORPUSCULAR HEMOGLOBIN 28.9 PG (27.0-34.0); MEAN CORPUSCULAR HGB CONC 35.1 % (32.0-36.0); MEAN PLATELET VOLUME 7.5 FL (7.0-11.0); RED CELL DISTRIBUTION WIDTH 13.8 % (11.6-17.2); WHITE BLOOD COUNT 0.1 TH/MM3 (4.0-11.0)
[2017-06-11 06:02] LABS: HEMATOCRIT 20.5 % (35.0-46.0)
[2017-06-11 06:03] LABS: PLATELET COUNT 18 TH/MM3 (150-450)
[2017-06-11 06:12] LABS: CALCIUM 8.6 MG/DL (8.5-10.1); CREATININE 0.43 MG/DL (0.50-1.00)
[2017-06-11] MEDS: RESP: ALBUTEROL 2.5 MG/IPRATROPIUM 0.5 MG NEB (SCH) NEB ×3 (08:00→19:19)
[2017-06-11 08:23] LABS: LYMPHOCYTES 80 % (9-44); MONOCYTES 20 % (0-8)
[2017-06-11] MEDS: DOCUSATE SODIUM 100 MG CAP PO SCH (09:00)
[2017-06-11] MEDS: PROCHLORPERAZINE INJ 10 MG/2 ML VIAL IV PUSH PRN ×2 (09:06→20:59)
[2017-06-11] MEDS: NYSTAT/DIPHENHY/LIDO MOUTHWASH (Adult) 120ML SWISH-SWAL SCH ×4 (09:06→20:43)
[2017-06-11] MEDS: HYDROCHLOROTHIAZIDE 25 MG TAB PO SCH (09:06)
[2017-06-11] MEDS: POTASSIUM CHLORIDE 10 MEQ CONTROLLED RELEASE TAB PO SCH ×2 (09:07→20:41)
[2017-06-11] MEDS: CARVEDILOL 6.25 MG TAB PO SCH (09:07)
[2017-06-11] MEDS: SODIUM CHLORIDE 0.9% FLUSH 10 ML FLUSH IV FLUSH PRN (09:07)
[2017-06-11] MEDS: HYDROcodone 5 MG/HOMATROPINE 1.5 MG SYRUP 5 ML CUP PO SCH ×2 (09:07→20:40)
[2017-06-11] MEDS: amLODIPine BESYLATE 5 MG TAB PO SCH (09:07)
[2017-06-11] MEDS: LOSARTAN 50 MG TAB PO SCH (09:07)
[2017-06-11] MEDS ORDERED: SODIUM CHLOR 0.9% 250 ML INJ 250 ML IV ONE (09:30)
[2017-06-11] MEDS: [UNRECOGNIZED DRUG - OTHER] PO SCH ×2 (10:11→20:43)
[2017-06-11] MEDS: MICAFUNGIN INJ 150 MG in SODIUM CHLORIDE 0.9% INJ 100 ML IV SCH (10:11)
--- NOTE | 2017-06-11 10:54 | HHI.IDPN ---
Note Infectious Disease Note Patient having nausea and vomiting. White better after vomiting. Denies abdominal pain. Having temp spikes. No nose bleed Coughing white phlegm. No SOB. No chills. Stools pasty not loose. Receiving blood and platelet transfusions. Blood cultures are negative. Patient with acute myeloid leukemia, FLT3 positive. Admitted for salvage chemotherapy on 05/24/2017. PAST MEDICAL HISTORY 1. Hypertension. 2. Hypercholesteremia. 3. COPD. 4. Rheumatoid arthritis. 5. Depression. 6. Anxiety disorder. PAST SURGICAL HISTORY 1. Cholecystectomy. 2. Eatslf-O-Bjyi placement. 3. Complete hysterectomy. 4. Colon resection. ALLERGIES 1. SULFA. 2. CEFEPIME. 3. LATEX. ANTIBIOTICS 1. Imipenem. 2. Vancomycin. 3. Micafungin. 4. Acyclovir. OBJECTIVE: Vital Signs Date Time Temp Pulse Resp B/P (MAP) Pulse Ox O2 Delivery O2 Flow Rate FiO2 06/11/17 09:01 99.9 108 18 129/88 (102) 93 06/11/17 04:00 92 06/11/17 03:48 99.6 98 16 121/64 (83) 97 06/11/17 03:00 86 06/11/17 02:05 100.6 06/11/17 02:00 88 06/11/17 01:00 90 06/11/17 00:16 100.2 90 16 123/69 (87) 94 06/11/17 00:01 84 06/10/17 23:00 90 06/10/17 22:00 84 06/10/17 21:09 101.4 108 18 114/78 (90) 96 06/10/17 21:00 98 06/10/17 20:57 96 Nasal Cannula 1.50 06/10/17 20:07 105 06/10/17 19:32 93 06/10/17 16:10 102.4 06/10/17 16:00 104 18 136/80 (98) 93 06/10/17 15:00 108 06/10/17 14:00 110 06/10/17 13:00 106 06/10/17 12:00 99.2 100 18 128/74 (92) 96 06/10/17 11:00 86 Laboratory Tests Test 06/10/17 05:38 06/11/17 04:00 White Blood Count 0.1 TH/MM3 0.1 TH/MM3 Red Blood Count 2.89 MIL/MM3 2.50 MIL/MM3 Hemoglobin 8.3 GM/DL 7.2 GM/DL Hematocrit 23.9 % 20.5 % Mean Corpuscular Volume 82.6 FL 82.3 FL Mean Corpuscular Hemoglobin 28.8 PG 28.9 PG Mean Corpuscular Hemoglobin Concent 34.9 % 35.1 % Red Cell Distribution Width 14.0 % 13.8 % Platelet Count 9 TH/MM3 18 TH/MM3 Mean Platelet Volume 8.0 FL 7.5 FL CBC Comment AUTO DIFF AUTO DIFF Differential Total Cells Counted 10 10 Lymphocytes % 100 % 80 % Neutrophils # (Manual) 0.0 TH/MM3 0.0 TH/MM3 Differential Comment FINAL DIFF MANUAL FINAL DIFF MANUAL Platelet Estimate RARE RARE Platelet Morphology Comment NORMAL NORMAL [place] PRESENT Monocytes % 20 % Laboratory Tests Test 06/10/17 05:38 06/11/17 04:00 Blood Urea Nitrogen 8 MG/DL 8 MG/DL Creatinine 0.50 MG/DL 0.43 MG/DL Random Glucose 119 MG/DL 132 MG/DL Calcium Level 8.8 MG/DL 8.6 MG/DL Sodium Level 137 MEQ/L 137 MEQ/L Potassium Level 3.2 MEQ/L 3.2 MEQ/L Chloride Level 101 MEQ/L 99 MEQ/L Carbon Dioxide Level 28.1 MEQ/L 29.0 MEQ/L Anion Gap 8 MEQ/L 9 MEQ/L Estimat Glomerular Filtration Rate 126 ML/MIN 150 ML/MIN Microbiology Date/Time Source Procedure Growth Status 06/11/17 03:08 Blood Peripheral Aerobic Blood Culture Pending Received 06/11/17 03:08 Blood Peripheral Anaerobic Blood Culture Pending Received 06/11/17 02:20 Blood Line Aerobic Blood Culture Pending Received 06/11/17 02:20 Blood Line Anaerobic Blood Culture Pending Received 06/09/17 19:42 Blood Peripheral Aerobic Blood Culture - Preliminary NO GROWTH IN 1 DAY Resulted 06/09/17 19:42 Blood Peripheral Anaerobic Blood Culture - Preliminary NO GROWTH IN 1 DAY Resulted 06/09/17 19:37 Blood Peripheral Aerobic Blood Culture - Preliminary NO GROWTH IN 1 DAY Resulted 06/09/17 19:37 Blood Peripheral Anaerobic Blood Culture - Preliminary NO GROWTH IN 1 DAY Resulted 06/09/17 19:25 Blood Line Aerobic Blood Culture - Preliminary NO GROWTH IN 1 DAY Resulted 06/09/17 19:25 Blood Line Anaerobic Blood Culture - Preliminary NO GROWTH IN 1 DAY Resulted IMAGING: Chest X-Ray 06/06/17 0000 Signed Impressions: Service Date/Time: Tuesday, June 06, 2017 09:26 - CONCLUSION: Concern for pleural fluid bilaterally, left greater than right. Recommend repeat exam with upright PA and lateral views when clinically able. Jess Jay MD Head CT 06/04/17 0000 Signed Impressions: Service Date/Time: Sunday, June 04, 2017 16:02 - CONCLUSION: Normal examination for a patient of this age. No significant change has occurred. Alcides Longoria MD Chest X-Ray 05/31/17 0441 Signed Impressions: Service Date/Time: Wednesday, May 31, 2017 05:09 - CONCLUSION: The lungs are clear. Troy Clarke MD Chest CT 05/31/17 0000 Signed Impressions: Service Date/Time: Wednesday, May 31, 2017 17:30 - CONCLUSION: 1. No focal consolidation or effusion to suggest infection. No adenopathy. Wyygfn-i-Byym in superior vena cava. Jacinto Tello MD Abdomen/Pelvis CT 05/31/17 0000 Signed Impressions: Service Date/Time: Wednesday, May 31, 2017 17:30 - CONCLUSION: 1. Diffuse hepatic fatty infiltration. 2. Similarly, diffuse fatty infiltration/atrophy of the pancreas. 3. 7.6 cm cyst laterally in the left renal cortex. 4. No acute intraperitoneal or pelvic process to explain current clinical symptoms. No significant change from prior. Cristo Hughes MD PHYSICAL EXAMINATION GENERAL: No acute distress. HEENT: The head is atraumatic. Extraocular movements grossly intact. Pupils reactive to light. No icterus. No erythema. ulcerative lesion at side of tongue. The mucosa is moist. No thrush. NECK: Supple without adenopathy or swelling. LUNGS: Clear breath sounds. CHEST: Nfpwd-T-wzmc site without signs of infection. HEART: Regular S1 and S2 without murmurs, rubs or gallops. ABDOMEN: Bowel sounds present. Soft, obese, nontender. EXTREMITIES: No clubbing, cyanosis or edema. SKIN: No rash. NEUROLOGIC: Non focal. PSYCHIATRIC: Calm and cooperative. IMPRESSION 1. Bacteremia. Klebsiella. Treated 2. Febrile neutropenia/pancytopenia. Recurring fever. Blood cultures has no growth. CXR without signs of pneumonia. 3. Acute myeloid leukemia. Receiving Rydapt. 4. ? sinusitis. Previous pain at the left face resolved. The Rydapt also has side effects which could explain some of the symptoms. RECOMMENDATIONS 1. Continue Imipenem. 2. Continue vancomycin. 3. Continue Micafungin. 4. Continue Acyclovir. 5. Follow blood counts. 6. Follow blood cultures. 7. Monitor temps. 8. Sputum culture. Ordered. 9. Monitor clinical status. Jim Grande MD Jun 11, 2017 10:54
[2017-06-11] MEDS ORDERED: ONDANSETRON HCL 4 MG/2 ML VIAL IV PUSH ONE (11:00)
--- NOTE | 2017-06-11 11:09 | PD.ONC.PN ---
Subjective Subjective Remarks Tmax 100.6 overnight. patient seen [id number] Patient feeling nauseated this morning. She is actively vomiting while i'm in the room. states she took compazine about an hour and a half ago but still feels nauseated. she still has cough and has post-tussive vomiting. reports the hycodan makes her cough feel better. Objective Data Date Time Temp Pulse Resp B/P (MAP) Pulse Ox O2 Delivery O2 Flow Rate FiO2 06/11/17 09:01 99.9 108 18 129/88 (102) 93 06/11/17 04:00 92 06/11/17 03:48 99.6 98 16 121/64 (83) 97 06/11/17 03:00 86 06/11/17 02:05 100.6 06/11/17 02:00 88 06/11/17 01:00 90 06/11/17 00:16 100.2 90 16 123/69 (87) 94 06/11/17 00:01 84 06/10/17 23:00 90 06/10/17 22:00 84 06/10/17 21:09 101.4 108 18 114/78 (90) 96 06/10/17 21:00 98 06/10/17 20:57 96 Nasal Cannula 1.50 06/10/17 20:07 105 06/10/17 19:32 93 06/10/17 16:10 102.4 06/10/17 16:00 104 18 136/80 (98) 93 06/10/17 15:00 108 06/10/17 14:00 110 06/10/17 13:00 106 06/10/17 12:00 99.2 100 18 128/74 (92) 96 06/11/17 06/11/17 06/11/17 07:00 15:00 23:00 Intake Total 1070 ml Output Total 700 ml Balance 370 ml Result Diagram: 06/11/17 0400 06/11/17 0400 Laboratory Results Laboratory Tests Test 06/11/17 04:00 White Blood Count 0.1 TH/MM3 Red Blood Count 2.50 MIL/MM3 Hemoglobin 7.2 GM/DL Hematocrit 20.5 % Mean Corpuscular Volume 82.3 FL Mean Corpuscular Hemoglobin 28.9 PG Mean Corpuscular Hemoglobin Concent 35.1 % Red Cell Distribution Width 13.8 % Platelet Count 18 TH/MM3 Mean Platelet Volume 7.5 FL CBC Comment AUTO DIFF Differential Total Cells Counted 10 Lymphocytes % 80 % Monocytes % 20 % Neutrophils # (Manual) 0.0 TH/MM3 Differential Comment FINAL DIFF MANUAL Platelet Estimate RARE Platelet Morphology Comment NORMAL Blood Urea Nitrogen 8 MG/DL Creatinine 0.43 MG/DL Random Glucose 132 MG/DL Calcium Level 8.6 MG/DL Sodium Level 137 MEQ/L Potassium Level 3.2 MEQ/L Chloride Level 99 MEQ/L Carbon Dioxide Level 29.0 MEQ/L Anion Gap 9 MEQ/L Estimat Glomerular Filtration Rate 150 ML/MIN Culture Results Microbiology Date/Time Source Procedure Growth Status 06/11/17 03:08 Blood Peripheral Aerobic Blood Culture Pending Received 06/11/17 03:08 Blood Peripheral Anaerobic Blood Culture Pending Received 06/11/17 02:20 Blood Line Aerobic Blood Culture Pending Received 06/11/17 02:20 Blood Line Anaerobic Blood Culture Pending Received 06/09/17 19:42 Blood Peripheral Aerobic Blood Culture - Preliminary NO GROWTH IN 1 DAY Resulted 06/09/17 19:42 Blood Peripheral Anaerobic Blood Culture - Preliminary NO GROWTH IN 1 DAY Resulted 06/09/17 19:37 Blood Peripheral Aerobic Blood Culture - Preliminary NO GROWTH IN 1 DAY Resulted 06/09/17 19:37 Blood Peripheral Anaerobic Blood Culture - Preliminary NO GROWTH IN 1 DAY Resulted 06/09/17 19:25 Blood Line Aerobic Blood Culture - Preliminary NO GROWTH IN 1 DAY Resulted 06/09/17 19:25 Blood Line Anaerobic Blood Culture - Preliminary NO GROWTH IN 1 DAY Resulted Administered Medications Medications (Trade) Dose Ordered Sig/Zeynep Route PRN Reason Start Time Stop Time Status Last Admin Dose Admin Amlodipine Besylate (Norvasc) 5 mg DAILY PO 05/24/17 09:00 06/11/17 09:07 Losartan Potassium (Cozaar) 100 mg DAILY PO 05/24/17 09:00 06/11/17 09:07 Melatonin (Melatonin) 5 mg HS PRN PO insomnia 05/24/17 08:30 06/10/17 20:55 Hydrochlorothiazide (Hydrodiuril) 25 mg DAILY PO 05/24/17 09:00 06/11/17 09:06 Acetaminophen (Tylenol) 650 mg Q4H PRN PO fever>100.4 or premedication 05/24/17 08:45 06/11/17 02:04 Oxycodone HCl (Roxicodone) 5 mg Q4H PRN PO pain>5 05/24/17 12:15 06/03/17 20:41 Patient Own Medication PT OWN MED: RYDAPT (MIDOSTAUR... BID PO 05/31/17 09:00 06/13/17 21:01 06/11/17 10:11 Multi-Ingredient Mouthwash/Gargle (Magic Mouthwash Adult Liq) 5 ml QID SWISH-SWAL 05/24/17 13:00 06/11/17 09:06 Docusate Sodium (Colace) 100 mg DAILY PO 05/26/17 11:00 06/05/17 09:10 Magnesium Hydroxide (Milk Of Magnesia Liq) 30 ml DAILY PRN PO MILD - MODERATE CONSTIPATION 05/26/17 11:00 05/26/17 11:22 Sodium Chloride (NS Flush) 5 ml UNSCH PRN IV FLUSH SEE PROTOCOL TABLE 05/28/17 14:00 06/11/17 09:07 Heparin Sodium (Porcine) (Heparin Central Flush) 250 units UNSCH PRN IV FLUSH SEE PROTOCOL TABLE 05/28/17 14:00 05/29/17 04:51 Promethazine HCl (Phenergan Inj) 12.5 mg Q4H PRN IV-CENTRAL nausea/vomiting 05/31/17 09:30 06/04/17 20:50 Lidocaine HCl (Xylocaine 2% Viscous) 15 ml Q4H PRN SWISH-SPIT mouth pain 06/03/17 15:00 06/06/17 09:29 Acyclovir (Zovirax) 400 mg Q8HR PO 06/03/17 15:15 06/11/17 05:21 Carvedilol (Coreg) 6.25 mg DAILY PO 06/05/17 09:00 06/11/17 09:07 Diphenhydramine HCl (Benadryl) 25 mg Q4H PRN PO premedication for blood produc 06/04/17 16:00 06/10/17 09:01 Prochlorperazine Edisylate (Compazine Inj) 10 mg Q8H PRN IV PUSH nausea 06/05/17 10:00 06/11/17 09:06 Oxymetazoline HCl (Afrin 0.05% Diaz [place]) 2 spray Q12H PRN NASAL NASAL CONGESTION 06/05/17 11:00 06/05/17 14:01 Potassium Chloride (KCl) 20 meq Q12HR PO 06/08/17 09:00 06/11/17 09:07 Micafungin Sodium 150 mg/Sodium Chloride 100 ml @ 100 mls/hr Q24H IV 06/08/17 11:00 06/11/17 10:11 Vancomycin HCl 1000 mg/Sodium Chloride 250 ml @ 250 mls/hr Q12H IV 06/08/17 13:00 06/11/17 01:55 Imipenem/ Cilastatin Sodium 500 mg/Sodium Chloride 100 ml @ 200 mls/hr Q6H IV 06/08/17 21:00 06/11/17 09:06 Guaifenesin/ Dextromethorphan (Robitussin Dm 200-20 Mg/10 ml Liq) 10 ml Q6H PRN PO COUGH 06/08/17 23:45 06/11/17 01:56 Albuterol/ Ipratropium (Duoneb Neb) 1 ampule Q6HR WHILE AWAKE NEB NEB 06/09/17 14:00 06/10/17 19:28 Hydrocodone Bit/ Homatropine Methylb (Hycodan Liq) 5 ml BID PO 06/09/17 09:00 06/11/17 09:07 Objective Remarks GENERAL: Middle aged female, lying in bed on approach. then sits up and starts vomiting. SKIN: Warm and dry. HEAD: Normocephalic. EYES: No injection or drainage. NECK: Supple, trachea midline. CARDIOVASCULAR: Regular rate and rhythm RESPIRATORY: Breath sounds equal bilaterally. No accessory muscle use. GASTROINTESTINAL: Abdomen soft, non-tender, nondistended. EXTREMITIES: No cyanosis NEUROLOGICAL: aox3. normal speech. moving all extremities. Assessment/Plan Problem List: (1) Neutropenic fever ICD Codes: D70.9 - Neutropenia, unspecified; R50.81 - Fever presenting with conditions classified elsewhere Status: Acute Plan: --On Vanco + Imipenem + Diflucan + Acyclovir. --BC + Klebsiella pneumoniae --most recent blood cultures negative. CT chest/abdomen pelvis show no nidus for infection. 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 tolerated D1 05/25: D2. monitor CBC, bilirubin. 05/26: D3. Tolerating chemotherapy. Add on daily stool softener with prn milk of magnesia for constipation. Monitor CBC. 05/27: D4. Continue chemotherapy. Transfuse 1 unit irradiated packed red blood cells for hemoglobin of 7.5 as her counts are trending down. Monitor CBC, CMP. 05.28: D5. tolerating chemo. no transfusion needed at present. 05/29: D6. chemo complete yesterday. give 2 units pRBC today 05/30. D7. no blood transfusion. monitor. 05/31. D8. +fever. start Vanco/Azactam. obtain BC. obtain CT. 06/01: D9. continue Vanco/Azactam. resume Coreg. 06/03: D11: continue antibiotics. supportive care 06/07: D15: feeling a bit improved. continue antibiotics. 1 unit pRBC 06/08: D16: continue antibiotics. 1 unit pRBC, 1 unit platelets. repeat BC 06/09: D 17 No Tx today. Await BM recovery. Repeat BM bx on saturday 06/10: D 18: 1 unit platelets. continue antibiotics. 06/11: D19: add zofran for nausea. give 2 units pRBC await BM Recovery. (3) Hypertension ICD Codes: I10 - Essential (primary) hypertension Status: Chronic Plan: --on home medications. -- Stable (4) Stomatitis ICD Codes: K12.1 - Other forms of stomatitis Plan: --d/t chemotherapy --on magic mouthwash. (5) Cough ICD Codes: R05 - Cough Plan: continue Duonebs, cough suppressants (6) Nausea & vomiting ICD Codes: R11.2 - Nausea with vomiting, unspecified Plan: --likely d/t Rydapt or other medications --on PRN Compazine + Zofran. --states phenergan not working, will d/c Assessment 57y/o female admitted for salvage chemotherapy for relapse of acute myeloid leukemia, FLT3 positive. Attending Statement The exam, history, and the medical decision-making described in the above note were completed with the assistance of the mid-level provider. I reviewed and agree with the findings presented. I attest that I had a [id number] encounter with the patient on the same day, and personally performed and documented my assessment and findings in the medical record. Cough is better. Just woke up from sleep. fever with no chills Decrease appetite BC are neg. continue Vanco/ primaxin / micofungin / acyclovir. PRBC today. BM bx on wednesday Problem Qualifiers (1) Hypertension: Qualified Codes: I10 - Essential (primary) hypertension (2) Nausea & vomiting: Qualified Codes: R11.2 - Nausea with vomiting, unspecified Julianna Mcdaniel Jun 11, 2017 11:09 Apirl Fonseca MD Jun 11, 2017 18:24
[2017-06-11] MEDS: diphenhydrAMINE HCL 25 MG CAP PO PRN (13:23)
[2017-06-11] MEDS: ONDANSETRON HCL 4 MG/2 ML VIAL IV PUSH SCH ×2 (14:00→20:43)
[2017-06-12] VITALS (31 sets, daily range): BP systolic 106–140; BP diastolic 68–97; PULSE 76–118; RESP 18; TEMP 98.7–100.9; O2SAT 91–96
[2017-06-12] MEDS: VANCOMYCIN 1,000 MG/NS 250 ML IV SCH ×4 (00:24→12:18)
[2017-06-12] MEDS: ACETAMINOPHEN 325 MG TAB PO PRN ×3 (02:32→19:37)
[2017-06-12] MEDS: IMIPENEM/CILASTATIN INJ 500 MG in SODIUM CHLORIDE 0.9% INJ 100 ML IV SCH ×4 (02:33→19:38)
[2017-06-12] MEDS: guaiFENesin/DEXTROMETHORPHAN 200 MG/20 MG/10 ML CUP PO PRN (02:41)
[2017-06-12] MEDS: ACYCLOVIR 200 MG CAP PO SCH ×3 (05:20→22:00)
[2017-06-12] MEDS: ONDANSETRON HCL 4 MG/2 ML VIAL IV PUSH SCH ×3 (05:23→21:44)
[2017-06-12] MEDS: RESP: ALBUTEROL 2.5 MG/IPRATROPIUM 0.5 MG NEB (SCH) NEB ×3 (08:00→19:16)
[2017-06-12 08:05] LABS: HEMOGLOBIN 9.6 GM/DL (11.6-15.3); MEAN CELL VOLUME 83.7 FL (80.0-100.0); MEAN CORPUSCULAR HEMOGLOBIN 28.9 PG (27.0-34.0); MEAN CORPUSCULAR HGB CONC 34.5 % (32.0-36.0); MEAN PLATELET VOLUME 7.9 FL (7.0-11.0); RED BLOOD COUNT 3.34 MIL/MM3 (4.00-5.30); RED CELL DISTRIBUTION WIDTH 14.3 % (11.6-17.2); WHITE BLOOD COUNT 0.1 TH/MM3 (4.0-11.0)
[2017-06-12 08:17] LABS: PLATELET COUNT 12 TH/MM3 (150-450)
[2017-06-12 08:25] LABS: BICARBONATE 30.6 MEQ/L (21.0-32.0); CALCIUM 9.1 MG/DL (8.5-10.1); CREATININE 0.52 MG/DL (0.50-1.00)
[2017-06-12] MEDS: HYDROcodone 5 MG/HOMATROPINE 1.5 MG SYRUP 5 ML CUP PO SCH ×2 (08:54→19:38)
[2017-06-12] MEDS: amLODIPine BESYLATE 5 MG TAB PO SCH (08:54)
[2017-06-12] MEDS: LOSARTAN 50 MG TAB PO SCH (08:54)
[2017-06-12] MEDS: CARVEDILOL 6.25 MG TAB PO SCH (08:54)
[2017-06-12] MEDS: NYSTAT/DIPHENHY/LIDO MOUTHWASH (Adult) 120ML SWISH-SWAL SCH ×4 (08:55→19:38)
[2017-06-12] MEDS: POTASSIUM CHLORIDE 10 MEQ CONTROLLED RELEASE TAB PO SCH ×2 (08:55→19:37)
[2017-06-12] MEDS: HYDROCHLOROTHIAZIDE 25 MG TAB PO SCH (08:55)
[2017-06-12] MEDS: DOCUSATE SODIUM 100 MG CAP PO SCH (09:00)
[2017-06-12] MEDS: [UNRECOGNIZED DRUG - OTHER] PO SCH ×2 (09:11→19:38)
[2017-06-12] MEDS: PROCHLORPERAZINE INJ 10 MG/2 ML VIAL IV PUSH PRN ×2 (09:11→19:37)
[2017-06-12 09:23] LABS: BANDS 17 % (0-6); LYMPHOCYTES 42 % (9-44); MONOCYTES 8 % (0-8); NEUTROPHIL # MANUAL DIFF 0.1 TH/MM3 (1.8-7.7); POLYS (SEG NEUTROPHILS) 33 % (16-70)
[2017-06-12] MEDS: MICAFUNGIN INJ 150 MG in SODIUM CHLORIDE 0.9% INJ 100 ML IV SCH (10:22)
--- NOTE | 2017-06-12 12:12 | PD.ONC.PN ---
Subjective Subjective Remarks Tmax 100.9 overnight. Patient states cough is improved. Still feeling nauseated. Feeling fatigued. would like to have telemetry removed. Objective Data Date Time Temp Pulse Resp B/P (MAP) Pulse Ox O2 Delivery O2 Flow Rate FiO2 06/12/17 11:49 99.1 81 18 106/68 (81) 94 06/12/17 11:00 87 06/12/17 10:24 100.9 06/12/17 10:00 90 06/12/17 09:00 118 06/12/17 08:00 118 06/12/17 07:47 94 Room Air 06/12/17 07:44 98.7 116 18 132/97 (109) 94 06/12/17 07:00 100 06/12/17 06:00 88 06/12/17 05:00 88 06/12/17 04:02 95 06/12/17 04:00 99.9 94 18 125/70 (88) 92 06/12/17 03:00 100 06/12/17 02:31 99.9 06/12/17 01:00 80 06/12/17 00:19 100.2 83 18 130/77 (94) 96 06/12/17 00:00 79 06/12/17 00:00 78 06/11/17 23:00 110 06/11/17 22:00 86 06/11/17 21:12 101.0 06/11/17 21:00 90 06/11/17 20:45 98.8 88 18 123/86 (98) 99 06/11/17 20:40 99 Nasal Cannula 1.50 06/11/17 20:19 88 06/11/17 18:06 89 06/11/17 18:04 99.7 89 16 116/77 (90) 96 06/11/17 17:02 99.7 89 16 116/77 96 06/11/17 17:00 94 06/11/17 16:49 98.2 86 18 114/70 93 06/11/17 16:00 88 06/11/17 15:00 104 06/11/17 14:21 101.5 105 18 94/49 96 06/11/17 14:05 101.7 101 18 108/70 94 06/11/17 14:00 86 06/11/17 13:35 Room Air 06/11/17 13:30 101.7 101 18 108/70 (83) 94 06/11/17 13:00 100 06/12/17 06/12/17 06/12/17 07:00 15:00 23:00 Intake Total 830 ml Balance 830 ml Result Diagram: 06/12/17 0530 06/12/17 0530 Laboratory Results Laboratory Tests Test 06/12/17 05:30 White Blood Count 0.1 TH/MM3 Red Blood Count 3.34 MIL/MM3 Hemoglobin 9.6 GM/DL Hematocrit 28.0 % Mean Corpuscular Volume 83.7 FL Mean Corpuscular Hemoglobin 28.9 PG Mean Corpuscular Hemoglobin Concent 34.5 % Red Cell Distribution Width 14.3 % Platelet Count 12 TH/MM3 Mean Platelet Volume 7.9 FL CBC Comment AUTO DIFF Differential Total Cells Counted 12 Neutrophils % (Manual) 33 % Band Neutrophils % 17 % Lymphocytes % 42 % Monocytes % 8 % Neutrophils # (Manual) 0.1 TH/MM3 Differential Comment FINAL DIFF MANUAL Platelet Estimate RARE Platelet Morphology Comment NORMAL Red Cell Morphology Comment NORMAL Blood Urea Nitrogen 10 MG/DL Creatinine 0.52 MG/DL Random Glucose 120 MG/DL Calcium Level 9.1 MG/DL Sodium Level 137 MEQ/L Potassium Level 3.2 MEQ/L Chloride Level 98 MEQ/L Carbon Dioxide Level 30.6 MEQ/L Anion Gap 8 MEQ/L Estimat Glomerular Filtration Rate 121 ML/MIN Culture Results Microbiology Date/Time Source Procedure Growth Status 06/11/17 03:08 Blood Peripheral Aerobic Blood Culture - Preliminary NO GROWTH IN 1 DAY Resulted 06/11/17 03:08 Blood Peripheral Anaerobic Blood Culture - Preliminary NO GROWTH IN 1 DAY Resulted 06/11/17 02:20 Blood Line Aerobic Blood Culture - Preliminary NO GROWTH IN 1 DAY Resulted 06/11/17 02:20 Blood Line Anaerobic Blood Culture - Preliminary NO GROWTH IN 1 DAY Resulted 06/09/17 19:42 Blood Peripheral Aerobic Blood Culture - Preliminary NO GROWTH IN 3 DAYS Resulted 06/09/17 19:42 Blood Peripheral Anaerobic Blood Culture - Preliminary NO GROWTH IN 3 DAYS Resulted 06/09/17 19:37 Blood Peripheral Aerobic Blood Culture - Preliminary NO GROWTH IN 3 DAYS Resulted 06/09/17 19:37 Blood Peripheral Anaerobic Blood Culture - Preliminary NO GROWTH IN 3 DAYS Resulted 06/09/17 19:25 Blood Line Aerobic Blood Culture - Preliminary NO GROWTH IN 3 DAYS Resulted 06/09/17 19:25 Blood Line Anaerobic Blood Culture - Preliminary NO GROWTH IN 3 DAYS Resulted Administered Medications Medications (Trade) Dose Ordered Sig/Zeynep Route PRN Reason Start Time Stop Time Status Last Admin Dose Admin Amlodipine Besylate (Norvasc) 5 mg DAILY PO 05/24/17 09:00 06/12/17 08:54 Losartan Potassium (Cozaar) 100 mg DAILY PO 05/24/17 09:00 06/12/17 08:54 Melatonin (Melatonin) 5 mg HS PRN PO insomnia 05/24/17 08:30 06/10/17 20:55 Hydrochlorothiazide (Hydrodiuril) 25 mg DAILY PO 05/24/17 09:00 06/12/17 08:55 Acetaminophen (Tylenol) 650 mg Q4H PRN PO fever>100.4 or premedication 05/24/17 08:45 06/12/17 10:26 Oxycodone HCl (Roxicodone) 5 mg Q4H PRN PO pain>5 05/24/17 12:15 06/03/17 20:41 Patient Own Medication PT OWN MED: RYDAPT (MIDOSTAUR... BID PO 05/31/17 09:00 06/13/17 21:01 06/12/17 09:11 Multi-Ingredient Mouthwash/Gargle (Magic Mouthwash Adult Liq) 5 ml QID SWISH-SWAL 05/24/17 13:00 06/12/17 08:55 Docusate Sodium (Colace) 100 mg DAILY PO 05/26/17 11:00 06/05/17 09:10 Magnesium Hydroxide (Milk Of Magnesia Liq) 30 ml DAILY PRN PO MILD - MODERATE CONSTIPATION 05/26/17 11:00 05/26/17 11:22 Sodium Chloride (NS Flush) 5 ml UNSCH PRN IV FLUSH SEE PROTOCOL TABLE 05/28/17 14:00 06/11/17 09:07 Heparin Sodium (Porcine) (Heparin Central Flush) 250 units UNSCH PRN IV FLUSH SEE PROTOCOL TABLE 05/28/17 14:00 05/29/17 04:51 Lidocaine HCl (Xylocaine 2% Viscous) 15 ml Q4H PRN SWISH-SPIT mouth pain 06/03/17 15:00 06/06/17 09:29 Acyclovir (Zovirax) 400 mg Q8HR PO 06/03/17 15:15 06/12/17 05:20 Carvedilol (Coreg) 6.25 mg DAILY PO 06/05/17 09:00 06/12/17 08:54 Diphenhydramine HCl (Benadryl) 25 mg Q4H PRN PO premedication for blood produc 06/04/17 16:00 06/11/17 13:23 Prochlorperazine Edisylate (Compazine Inj) 10 mg Q8H PRN IV PUSH nausea 06/05/17 10:00 06/12/17 09:11 Oxymetazoline HCl (Afrin 0.05% Diaz [place]) 2 spray Q12H PRN NASAL NASAL CONGESTION 06/05/17 11:00 06/05/17 14:01 Potassium Chloride (KCl) 20 meq Q12HR PO 06/08/17 09:00 06/12/17 08:55 Micafungin Sodium 150 mg/Sodium Chloride 100 ml @ 100 mls/hr Q24H IV 06/08/17 11:00 06/12/17 10:22 Vancomycin HCl 1000 mg/Sodium Chloride 250 ml @ 250 mls/hr Q12H IV 06/08/17 13:00 06/12/17 00:24 Imipenem/ Cilastatin Sodium 500 mg/Sodium Chloride 100 ml @ 200 mls/hr Q6H IV 06/08/17 21:00 06/12/17 08:55 Guaifenesin/ Dextromethorphan (Robitussin Dm 200-20 Mg/10 ml Liq) 10 ml Q6H PRN PO COUGH 06/08/17 23:45 06/12/17 02:41 Albuterol/ Ipratropium (Duoneb Neb) 1 ampule Q6HR WHILE AWAKE NEB NEB 06/09/17 14:00 06/10/17 19:28 Hydrocodone Bit/ Homatropine Methylb (Hycodan Liq) 5 ml BID PO 06/09/17 09:00 06/12/17 08:54 Objective Remarks GENERAL: Middle aged female, lying on right side in bed, appears fatigued. SKIN: Warm and dry. +alopecia. HEAD: Normocephalic. EYES: No injection or drainage. NECK: Supple, trachea midline. CARDIOVASCULAR: Regular rate and rhythm RESPIRATORY: Breath sounds equal bilaterally. No accessory muscle use. GASTROINTESTINAL: Abdomen soft, non-tender, nondistended. EXTREMITIES: No cyanosis NEUROLOGICAL: awake and alert, normal speech. moving extremities. Assessment/Plan Problem List: (1) Neutropenic fever ICD Codes: D70.9 - Neutropenia, unspecified; R50.81 - Fever presenting with conditions classified elsewhere Status: Acute Plan: --On Vanco + Imipenem + Diflucan + Acyclovir. --BC + Klebsiella pneumoniae --most recent blood cultures negative. CT chest/abdomen pelvis show no nidus for infection. 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 tolerated D1 05/25: D2. monitor CBC, bilirubin. 05/26: D3. Tolerating chemotherapy. Add on daily stool softener with prn milk of magnesia for constipation. Monitor CBC. 05/27: D4. Continue chemotherapy. Transfuse 1 unit irradiated packed red blood cells for hemoglobin of 7.5 as her counts are trending down. Monitor CBC, CMP. .: D5. tolerating chemo. no transfusion needed at present. 05/29: D6. chemo complete yesterday. give 2 units pRBC today 05/30. D7. no blood transfusion. monitor. 05/31. D8. +fever. start Vanco/Azactam. obtain BC. obtain CT. 06/01: D9. continue Vanco/Azactam. resume Coreg. 06/03: D11: continue antibiotics. supportive care 06/07: D15: feeling a bit improved. continue antibiotics. 1 unit pRBC 06/08: D16: continue antibiotics. 1 unit pRBC, 1 unit platelets. repeat BC 06/09: D 17 No Tx today. Await BM recovery. Repeat BM bx on saturday 06/10: D 18: 1 unit platelets. continue antibiotics. 06/11: D19: add zofran for nausea. give 2 units pRBC await BM Recovery. 06/12: D20: continue supportive care and antibiotics. no transfusion today. (3) Hypertension ICD Codes: I10 - Essential (primary) hypertension Status: Chronic Plan: --on home medications. -- Stable (4) Stomatitis ICD Codes: K12.1 - Other forms of stomatitis Plan: --d/t chemotherapy --on magic mouthwash. (5) Cough ICD Codes: R05 - Cough Plan: continue Duonebs, cough suppressants (6) Nausea & vomiting ICD Codes: R11.2 - Nausea with vomiting, unspecified Plan: --likely d/t Rydapt or other medications --on PRN Compazine + Zofran. Assessment 57y/o female admitted for salvage chemotherapy for relapse of acute myeloid leukemia, FLT3 positive. Attending Statement The exam, history, and the medical decision-making described in the above note were completed with the assistance of the mid-level provider. I reviewed and agree with the findings presented. I attest that I had a [id number] encounter with the patient on the same day, and personally performed and documented my assessment and findings in the medical record. c/o Nausea. decrease appetite. low grade fever BC are Neg. d/w pt. Problem Qualifiers (1) Hypertension: Qualified Codes: I10 - Essential (primary) hypertension (2) Nausea & vomiting: Qualified Codes: R11.2 - Nausea with vomiting, unspecified Julianna Mcdaniel Jun 12, 2017 12:12 April Fonseca MD Jun 12, 2017 18:19
--- NOTE | 2017-06-12 13:10 | HHI.IDPN ---
Note Infectious Disease Note ID Coverage Patient with acute myeloid leukemia, FLT3 positive. Admitted for salvage chemotherapy on 05/24/2017. Notes reviewed Has low-grade temps Poor appetite No vomiting No diarrhea Abdominal pain No complaints No respiratory complaints Some mild sores in the mouth, but denies any swallowing difficulty WBC 0.1, making some neutrophils All blood cultures are negative. PAST MEDICAL HISTORY 1. Hypertension. 2. Hypercholesteremia. 3. COPD. 4. Rheumatoid arthritis. 5. Depression. 6. Anxiety disorder. PAST SURGICAL HISTORY 1. Cholecystectomy. 2. Erojjk-A-Htah placement. 3. Complete hysterectomy. 4. Colon resection. ALLERGIES 1. SULFA. 2. CEFEPIME. 3. LATEX. Current Medications Primaxin Vancomycin Micafungin Acyclovir Medications (Trade) Dose Ordered Sig/Zeynep Route Start Time Stop Time Status Last Admin (Norvasc) 5 mg DAILY PO 05/24/17 09:00 06/12/17 08:54 (Cozaar) 100 mg DAILY PO 05/24/17 09:00 06/12/17 08:54 (Melatonin) 5 mg HS PRN PO 05/24/17 08:30 06/10/17 20:55 (Hydrodiuril) 25 mg DAILY PO 05/24/17 09:00 06/12/17 08:55 (Tylenol) 650 mg Q4H PRN PO 05/24/17 08:45 06/12/17 10:26 (Roxicodone) 5 mg Q4H PRN PO 05/24/17 12:15 06/03/17 20:41 Patient Own Medication PT OWN MED: RYDAPT (MIDOSTAUR... BID PO 05/31/17 09:00 06/13/17 21:01 06/12/17 09:11 (Magic Mouthwash Adult Liq) 5 ml QID SWISH-SWAL 05/24/17 13:00 06/12/17 12:18 (Colace) 100 mg DAILY PO 05/26/17 11:00 06/05/17 09:10 (Milk Of Magnesia Liq) 30 ml DAILY PRN PO 05/26/17 11:00 05/26/17 11:22 (NS Flush) 5 ml UNSCH PRN IV FLUSH 05/28/17 14:00 06/11/17 09:07 (Heparin Central Flush) 250 units UNSCH PRN IV FLUSH 05/28/17 14:00 05/29/17 04:51 (Heparin Central Flush) 500 units UNSCH IV FLUSH 05/28/17 14:00 (Tucks Pads) 1 applic UNSCH PRN TOPICAL 06/01/17 19:30 (Xylocaine 2% Viscous) 15 ml Q4H PRN SWISH-SPIT 06/03/17 15:00 06/06/17 09:29 (Zovirax) 400 mg Q8HR PO 06/03/17 15:15 06/12/17 05:20 (Coreg) 6.25 mg DAILY PO 06/05/17 09:00 06/12/17 08:54 (Benadryl) 25 mg Q4H PRN PO 06/04/17 16:00 06/11/17 13:23 (Compazine Inj) 10 mg Q8H PRN IV PUSH 06/05/17 10:00 06/12/17 09:11 (Afrin 0.05% Diaz [place]) 2 spray Q12H PRN NASAL 06/05/17 11:00 06/05/17 14:01 (KCl) 20 meq Q12HR PO 06/08/17 09:00 06/12/17 08:55 Micafungin Sodium 150 mg/Sodium Chloride 100 ml @ 100 mls/hr Q24H IV 06/08/17 11:00 06/12/17 10:22 Vancomycin HCl 1000 mg/Sodium Chloride 250 ml @ 250 mls/hr Q12H IV 06/08/17 13:00 06/12/17 12:18 Imipenem/ Cilastatin Sodium 500 mg/Sodium Chloride 100 ml @ 200 mls/hr Q6H IV 06/08/17 21:00 06/12/17 08:55 (Robitussin Dm 200-20 Mg/10 ml Liq) 10 ml Q6H PRN PO 06/08/17 23:45 06/12/17 02:41 (Duoneb Neb) 1 ampule Q6HR WHILE AWAKE NEB NEB 06/09/17 14:00 06/10/17 19:28 (Hycodan Liq) 5 ml BID PO 06/09/17 09:00 06/12/17 08:54 (Zofran Inj) 4 mg Q8HR IV PUSH 06/11/17 14:00 OBJECTIVE: Vital Signs Date Time Temp Pulse Resp B/P (MAP) Pulse Ox O2 Delivery O2 Flow Rate FiO2 06/12/17 13:00 84 06/12/17 12:00 82 06/12/17 11:49 99.1 81 18 106/68 (81) 94 06/12/17 11:00 87 06/12/17 10:24 100.9 06/12/17 10:00 90 06/12/17 09:00 118 06/12/17 08:00 118 06/12/17 07:47 94 Room Air 06/12/17 07:44 98.7 116 18 132/97 (109) 94 06/12/17 07:00 100 06/12/17 06:00 88 06/12/17 05:00 88 06/12/17 04:02 95 06/12/17 04:00 99.9 94 18 125/70 (88) 92 06/12/17 03:00 100 06/12/17 02:31 99.9 06/12/17 01:00 80 06/12/17 00:19 100.2 83 18 130/77 (94) 96 06/12/17 00:00 79 06/12/17 00:00 78 06/11/17 23:00 110 06/11/17 22:00 86 06/11/17 21:12 101.0 06/11/17 21:00 90 06/11/17 20:45 98.8 88 18 123/86 (98) 99 06/11/17 20:40 99 Nasal Cannula 1.50 06/11/17 20:19 88 06/11/17 18:06 89 06/11/17 18:04 99.7 89 16 116/77 (90) 96 06/11/17 17:02 99.7 89 16 116/77 96 06/11/17 17:00 94 06/11/17 16:49 98.2 86 18 114/70 93 06/11/17 16:00 88 06/11/17 15:00 104 06/11/17 14:21 101.5 105 18 94/49 96 06/11/17 14:05 101.7 101 18 108/70 94 06/11/17 14:00 86 06/11/17 13:35 Room Air 06/11/17 13:30 101.7 101 18 108/70 (83) 94 Vital Signs Date Time Temp Pulse Resp B/P (MAP) Pulse Ox O2 Delivery O2 Flow Rate FiO2 06/11/17 09:01 99.9 108 18 129/88 (102) 93 06/11/17 04:00 92 06/11/17 03:48 99.6 98 16 121/64 (83) 97 06/11/17 03:00 86 06/11/17 02:05 100.6 06/11/17 02:00 88 06/11/17 01:00 90 06/11/17 00:16 100.2 90 16 123/69 (87) 94 06/11/17 00:01 84 06/10/17 23:00 90 06/10/17 22:00 84 06/10/17 21:09 101.4 108 18 114/78 (90) 96 06/10/17 21:00 98 06/10/17 20:57 96 Nasal Cannula 1.50 06/10/17 20:07 105 06/10/17 19:32 93 06/10/17 16:10 102.4 06/10/17 16:00 104 18 136/80 (98) 93 06/10/17 15:00 108 06/10/17 14:00 110 06/10/17 13:00 106 06/10/17 12:00 99.2 100 18 128/74 (92) 96 06/10/17 11:00 86 Laboratory Tests Test 06/11/17 04:00 06/12/17 05:30 White Blood Count 0.1 TH/MM3 0.1 TH/MM3 Red Blood Count 2.50 MIL/MM3 3.34 MIL/MM3 Hemoglobin 7.2 GM/DL 9.6 GM/DL Hematocrit 20.5 % 28.0 % Mean Corpuscular Volume 82.3 FL 83.7 FL Mean Corpuscular Hemoglobin 28.9 PG 28.9 PG Mean Corpuscular Hemoglobin Concent 35.1 % 34.5 % Red Cell Distribution Width 13.8 % 14.3 % Platelet Count 18 TH/MM3 12 TH/MM3 Mean Platelet Volume 7.5 FL 7.9 FL CBC Comment AUTO DIFF AUTO DIFF Differential Total Cells Counted 10 12 Lymphocytes % 80 % 42 % Monocytes % 20 % 8 % Neutrophils # (Manual) 0.0 TH/MM3 0.1 TH/MM3 Differential Comment FINAL DIFF MANUAL FINAL DIFF MANUAL Platelet Estimate RARE RARE Platelet Morphology Comment NORMAL NORMAL Neutrophils % (Manual) 33 % Band Neutrophils % 17 % Red Cell Morphology Comment NORMAL Laboratory Tests Test 06/11/17 04:00 06/12/17 05:30 Blood Urea Nitrogen 8 MG/DL 10 MG/DL Creatinine 0.43 MG/DL 0.52 MG/DL Random Glucose 132 MG/DL 120 MG/DL Calcium Level 8.6 MG/DL 9.1 MG/DL Sodium Level 137 MEQ/L 137 MEQ/L Potassium Level 3.2 MEQ/L 3.2 MEQ/L Chloride Level 99 MEQ/L 98 MEQ/L Carbon Dioxide Level 29.0 MEQ/L 30.6 MEQ/L Anion Gap 9 MEQ/L 8 MEQ/L Estimat Glomerular Filtration Rate 150 ML/MIN 121 ML/MIN Microbiology Date/Time Source Procedure Growth Status 06/11/17 03:08 Blood Peripheral Aerobic Blood Culture - Preliminary NO GROWTH IN 1 DAY Resulted 06/11/17 03:08 Blood Peripheral Anaerobic Blood Culture - Preliminary NO GROWTH IN 1 DAY Resulted 06/11/17 02:20 Blood Line Aerobic Blood Culture - Preliminary NO GROWTH IN 1 DAY Resulted 06/11/17 02:20 Blood Line Anaerobic Blood Culture - Preliminary NO GROWTH IN 1 DAY Resulted 06/09/17 19:42 Blood Peripheral Aerobic Blood Culture - Preliminary NO GROWTH IN 3 DAYS Resulted 06/09/17 19:42 Blood Peripheral Anaerobic Blood Culture - Preliminary NO GROWTH IN 3 DAYS Resulted 06/09/17 19:37 Blood Peripheral Aerobic Blood Culture - Preliminary NO GROWTH IN 3 DAYS Resulted 06/09/17 19:37 Blood Peripheral Anaerobic Blood Culture - Preliminary NO GROWTH IN 3 DAYS Resulted 06/09/17 19:25 Blood Line Aerobic Blood Culture - Preliminary NO GROWTH IN 3 DAYS Resulted 06/09/17 19:25 Blood Line Anaerobic Blood Culture - Preliminary NO GROWTH IN 3 DAYS Resulted IMAGING: Chest X-Ray 06/06/17 0000 Signed Impressions: Service Date/Time: Tuesday, June 06, 2017 09:26 - CONCLUSION: Concern for pleural fluid bilaterally, left greater than right. Recommend repeat exam with upright PA and lateral views when clinically able. Jess Jay MD Head CT 06/04/17 0000 Signed Impressions: Service Date/Time: Sunday, June 04, 2017 16:02 - CONCLUSION: Normal examination for a patient of this age. No significant change has occurred. Alcides Longoria MD Chest X-Ray 05/31/17 [id number] Signed Impressions: Service Date/Time: Wednesday, May 31, 2017 05:09 - CONCLUSION: The lungs are clear. Troy Clarke MD Chest CT 05/31/17 0000 Signed Impressions: Service Date/Time: Wednesday, May 31, 2017 17:30 - CONCLUSION: 1. No focal consolidation or effusion to suggest infection. No adenopathy. [id number]-Tweo in superior vena cava. Jacinto Tello MD Abdomen/Pelvis CT 05/31/17 0000 Signed Impressions: Service Date/Time: Wednesday, May 31, 2017 17:30 - CONCLUSION: 1. Diffuse hepatic fatty infiltration. 2. Similarly, diffuse fatty infiltration/atrophy of the pancreas. 3. 7.6 cm cyst laterally in the left renal cortex. 4. No acute intraperitoneal or pelvic process to explain current clinical symptoms. No significant change from prior. Cristo Hughes MD PHYSICAL EXAMINATION GENERAL: Awake and alert, nontoxic appearing No acute distress. HEENT: The head is atraumatic. Extraocular movements grossly intact. Pupils reactive to light. No icterus. No erythema. ulcerative lesion at side of tongue. The mucosa is moist. No thrush. NECK: Supple without adenopathy or swelling. LUNGS: Clear breath sounds. CHEST: [id number] site without signs of infection. HEART: Regular S1 and S2 without murmurs, rubs or gallops. ABDOMEN: Bowel sounds present. Soft, obese, nontender. EXTREMITIES: No clubbing, cyanosis or edema. SKIN: No rash. NEUROLOGIC: Non focal. PSYCHIATRIC: Calm and cooperative. IMPRESSION Bacteremia. Klebsiella. Treated Febrile neutropenia/pancytopenia. Recurring fever. - Blood cultures has no growth. - CXR without signs of pneumonia. Acute myeloid leukemia. Receiving Rydapt. ? sinusitis. Previous pain at the left face resolved. The Rydapt also has side effects which could explain some of the symptoms. RECOMMENDATIONS Continue Imipenem. Continue vancomycin. Continue Micafungin. Continue Acyclovir. Follow temps Follow cultures Monitor progress Await covering of the bone marrow Explained plan to the patient Vijaya Haney MD Jun 12, 2017 13:10
[2017-06-12] MEDS: MELATONIN 5 MG TAB PO PRN (19:37)
[2017-06-13] VITALS (31 sets, daily range): BP systolic 108–144; BP diastolic 62–92; PULSE 78–110; RESP 18–20; TEMP 98.1–101.5; O2SAT 90–94
[2017-06-13] MEDS: VANCOMYCIN 1,000 MG/NS 250 ML IV SCH ×4 (00:04→12:24)
[2017-06-13] MEDS: ACETAMINOPHEN 325 MG TAB PO PRN ×3 (03:56→19:33)
[2017-06-13] MEDS: IMIPENEM/CILASTATIN INJ 500 MG in SODIUM CHLORIDE 0.9% INJ 100 ML IV SCH ×4 (03:56→20:33)
[2017-06-13 06:07] LABS: HEMATOCRIT 27.7 % (35.0-46.0); HEMOGLOBIN 9.6 GM/DL (11.6-15.3); MEAN CELL VOLUME 84.5 FL (80.0-100.0); MEAN CORPUSCULAR HEMOGLOBIN 29.2 PG (27.0-34.0); MEAN CORPUSCULAR HGB CONC 34.6 % (32.0-36.0); MEAN PLATELET VOLUME 8.8 FL (7.0-11.0); RED BLOOD COUNT 3.27 MIL/MM3 (4.00-5.30); RED CELL DISTRIBUTION WIDTH 13.8 % (11.6-17.2); WHITE BLOOD COUNT 0.1 TH/MM3 (4.0-11.0)
[2017-06-13] MEDS: ONDANSETRON HCL 4 MG/2 ML VIAL IV PUSH SCH ×3 (06:07→21:09)
[2017-06-13] MEDS: ACYCLOVIR 200 MG CAP PO SCH ×3 (06:07→21:09)
[2017-06-13 06:16] LABS: ALBUMIN 2.4 GM/DL (3.4-5.0); ALT (GPT) 13 U/L (10-53); AST (GOT) 8 U/L (15-37); BICARBONATE 29.1 MEQ/L (21.0-32.0); BLOOD UREA NITROGEN 7 MG/DL (7-18); CALCIUM 8.5 MG/DL (8.5-10.1); CHLORIDE 99 MEQ/L (98-107); CREATININE 0.41 MG/DL (0.50-1.00); GLOMERULAR FILTRATION RATE 159 ML/MIN (>89); GLUCOSE,RANDOM 105 MG/DL (74-106); SODIUM (NA) 138 MEQ/L (136-145)
[2017-06-13 06:18] LABS: ALKALINE PHOSPHATASE 85 U/L (45-117); TOTAL BILIRUBIN ADULT 0.8 MG/DL (0.2-1.0); TOTAL PROTEIN 6.6 GM/DL (6.4-8.2)
[2017-06-13 06:20] LABS: PLATELET COUNT 8 TH/MM3 (150-450)
[2017-06-13] MEDS: [UNRECOGNIZED DRUG - OTHER] PO SCH ×2 (08:16→21:09)
[2017-06-13] MEDS: PROCHLORPERAZINE INJ 10 MG/2 ML VIAL IV PUSH PRN ×2 (08:16→20:29)
[2017-06-13] MEDS: guaiFENesin/DEXTROMETHORPHAN 200 MG/20 MG/10 ML CUP PO PRN ×2 (08:16→17:14)
[2017-06-13] MEDS: amLODIPine BESYLATE 5 MG TAB PO SCH (08:17)
[2017-06-13] MEDS: CARVEDILOL 6.25 MG TAB PO SCH (08:17)
[2017-06-13] MEDS: HYDROCHLOROTHIAZIDE 25 MG TAB PO SCH (08:17)
[2017-06-13] MEDS: POTASSIUM CHLORIDE 10 MEQ CONTROLLED RELEASE TAB PO SCH ×2 (08:24→21:08)
[2017-06-13] MEDS: NYSTAT/DIPHENHY/LIDO MOUTHWASH (Adult) 120ML SWISH-SWAL SCH ×4 (08:24→21:09)
[2017-06-13] MEDS: LOSARTAN 50 MG TAB PO SCH (08:24)
[2017-06-13] MEDS: HYDROcodone 5 MG/HOMATROPINE 1.5 MG SYRUP 5 ML CUP PO SCH ×2 (08:28→21:00)
[2017-06-13] MEDS: DOCUSATE SODIUM 100 MG CAP PO SCH (08:28)
[2017-06-13] MEDS: RESP: ALBUTEROL 2.5 MG/IPRATROPIUM 0.5 MG NEB (SCH) NEB ×2 (08:46→10:49)
[2017-06-13] MEDS ORDERED: PROMETHAZINE INJ 25 MG/ML VIAL IV-CENTRAL ONE (09:30)
[2017-06-13 09:34] LABS: BANDS 13 % (0-6); LYMPHOCYTES 27 % (9-44); NEUTROPHIL # MANUAL DIFF 0.1 TH/MM3 (1.8-7.7); POLYS (SEG NEUTROPHILS) 60 % (16-70)
--- NOTE | 2017-06-13 09:55 | PD.ONC.PN ---
Subjective Subjective Remarks Tmax 100.3 overnight. Patient fatigued today. No overnight events. states scheduled zofran improved her nausea. however, she wants to try phenergan again before her Rydapt today as she anticipates further nausea after the Rydapt. Objective Data Date Time Temp Pulse Resp B/P (MAP) Pulse Ox O2 Delivery O2 Flow Rate FiO2 06/13/17 08:13 91 Room Air 06/13/17 08:08 98.5 92 18 116/72 (87) 91 06/13/17 07:00 90 06/13/17 05:00 104 06/13/17 04:01 103 06/13/17 04:00 100 06/13/17 03:54 98.8 101 136/70 (92) 90 06/13/17 03:00 88 06/13/17 02:00 88 06/13/17 01:00 88 06/13/17 00:07 94 Room Air 06/13/17 00:03 94 06/13/17 00:00 99.3 92 18 110/73 (85) 94 06/12/17 23:00 94 06/12/17 22:00 92 06/12/17 21:00 106 06/12/17 20:02 112 06/12/17 19:50 100.3 112 18 140/90 (107) 91 06/12/17 19:00 88 06/12/17 18:00 94 06/12/17 17:00 76 06/12/17 16:00 82 06/12/17 15:35 99.3 87 18 118/85 (96) 93 06/12/17 15:00 89 06/12/17 14:00 78 06/12/17 13:00 84 06/12/17 12:00 82 06/12/17 11:49 99.1 81 18 106/68 (81) 94 06/12/17 11:00 87 06/12/17 10:24 100.9 06/12/17 10:00 90 06/13/17 06/13/17 06/13/17 07:00 15:00 23:00 Intake Total 630 ml Output Total 1500 ml Balance -870 ml Result Diagram: 06/13/17 0400 06/13/17 0400 Laboratory Results Laboratory Tests Test 06/13/17 04:00 White Blood Count 0.1 TH/MM3 Red Blood Count 3.27 MIL/MM3 Hemoglobin 9.6 GM/DL Hematocrit 27.7 % Mean Corpuscular Volume 84.5 FL Mean Corpuscular Hemoglobin 29.2 PG Mean Corpuscular Hemoglobin Concent 34.6 % Red Cell Distribution Width 13.8 % Platelet Count 8 TH/MM3 Mean Platelet Volume 8.8 FL CBC Comment AUTO DIFF Differential Total Cells Counted 15 Neutrophils % (Manual) 60 % Band Neutrophils % 13 % Lymphocytes % 27 % Neutrophils # (Manual) 0.1 TH/MM3 Differential Comment FINAL DIFF MANUAL Platelet Estimate RARE Platelet Morphology Comment NORMAL Red Cell Morphology Comment NORMAL Blood Urea Nitrogen 7 MG/DL Creatinine 0.41 MG/DL Random Glucose 105 MG/DL Total Protein 6.6 GM/DL Albumin 2.4 GM/DL Calcium Level 8.5 MG/DL Alkaline Phosphatase 85 U/L Aspartate Amino Transf (AST/SGOT) 8 U/L Alanine Aminotransferase (ALT/SGPT) 13 U/L Total Bilirubin 0.8 MG/DL Sodium Level 138 MEQ/L Potassium Level 3.3 MEQ/L Chloride Level 99 MEQ/L Carbon Dioxide Level 29.1 MEQ/L Anion Gap 10 MEQ/L Estimat Glomerular Filtration Rate 159 ML/MIN Culture Results Microbiology Date/Time Source Procedure Growth Status 06/11/17 03:08 Blood Peripheral Aerobic Blood Culture - Preliminary NO GROWTH IN 1 DAY Resulted 06/11/17 03:08 Blood Peripheral Anaerobic Blood Culture - Preliminary NO GROWTH IN 1 DAY Resulted 06/11/17 02:20 Blood Line Aerobic Blood Culture - Preliminary NO GROWTH IN 1 DAY Resulted 06/11/17 02:20 Blood Line Anaerobic Blood Culture - Preliminary NO GROWTH IN 1 DAY Resulted Administered Medications Medications (Trade) Dose Ordered Sig/Zeynep Route PRN Reason Start Time Stop Time Status Last Admin Dose Admin Amlodipine Besylate (Norvasc) 5 mg DAILY PO 05/24/17 09:00 06/13/17 08:17 Losartan Potassium (Cozaar) 100 mg DAILY PO 05/24/17 09:00 06/13/17 08:24 Melatonin (Melatonin) 5 mg HS PRN PO insomnia 05/24/17 08:30 06/12/17 19:37 Hydrochlorothiazide (Hydrodiuril) 25 mg DAILY PO 05/24/17 09:00 06/13/17 08:17 Acetaminophen (Tylenol) 650 mg Q4H PRN PO fever>100.4 or premedication 05/24/17 08:45 06/13/17 03:56 Oxycodone HCl (Roxicodone) 5 mg Q4H PRN PO pain>5 05/24/17 12:15 06/03/17 20:41 Patient Own Medication PT OWN MED: RYDAPT (MIDOSTAUR... BID PO 05/31/17 09:00 06/13/17 21:01 06/13/17 08:16 Multi-Ingredient Mouthwash/Gargle (Magic Mouthwash Adult Liq) 5 ml QID SWISH-SWAL 05/24/17 13:00 06/13/17 08:24 Docusate Sodium (Colace) 100 mg DAILY PO 05/26/17 11:00 06/05/17 09:10 Magnesium Hydroxide (Milk Of Magnesia Liq) 30 ml DAILY PRN PO MILD - MODERATE CONSTIPATION 05/26/17 11:00 05/26/17 11:22 Sodium Chloride (NS Flush) 5 ml UNSCH PRN IV FLUSH SEE PROTOCOL TABLE 05/28/17 14:00 06/11/17 09:07 Heparin Sodium (Porcine) (Heparin Central Flush) 250 units UNSCH PRN IV FLUSH SEE PROTOCOL TABLE 05/28/17 14:00 05/29/17 04:51 Lidocaine HCl (Xylocaine 2% Viscous) 15 ml Q4H PRN SWISH-SPIT mouth pain 06/03/17 15:00 06/06/17 09:29 Acyclovir (Zovirax) 400 mg Q8HR PO 06/03/17 15:15 06/13/17 06:07 Carvedilol (Coreg) 6.25 mg DAILY PO 06/05/17 09:00 06/13/17 08:17 Diphenhydramine HCl (Benadryl) 25 mg Q4H PRN PO premedication for blood produc 06/04/17 16:00 06/11/17 13:23 Prochlorperazine Edisylate (Compazine Inj) 10 mg Q8H PRN IV PUSH nausea 06/05/17 10:00 06/13/17 08:16 Oxymetazoline HCl (Afrin 0.05% Diaz [place]) 2 spray Q12H PRN NASAL NASAL CONGESTION 06/05/17 11:00 06/05/17 14:01 Potassium Chloride (KCl) 20 meq Q12HR PO 06/08/17 09:00 06/13/17 08:24 Micafungin Sodium 150 mg/Sodium Chloride 100 ml @ 100 mls/hr Q24H IV 06/08/17 11:00 06/12/17 10:22 Vancomycin HCl 1000 mg/Sodium Chloride 250 ml @ 250 mls/hr Q12H IV 06/08/17 13:00 06/13/17 00:04 Imipenem/ Cilastatin Sodium 500 mg/Sodium Chloride 100 ml @ 200 mls/hr Q6H IV 06/08/17 21:00 06/13/17 09:14 Guaifenesin/ Dextromethorphan (Robitussin Dm 200-20 Mg/10 ml Liq) 10 ml Q6H PRN PO COUGH 06/08/17 23:45 06/13/17 08:16 Albuterol/ Ipratropium (Duoneb Neb) 1 ampule Q6HR WHILE AWAKE NEB NEB 06/09/17 14:00 06/10/17 19:28 Hydrocodone Bit/ Homatropine Methylb (Hycodan Liq) 5 ml BID PO 06/09/17 09:00 06/12/17 08:54 Ondansetron HCl (Zofran Inj) 4 mg Q8HR IV PUSH 06/11/17 14:00 06/13/17 06:07 Objective Remarks GENERAL: Middle aged female, supine in bed resting. SKIN: Warm and dry. +port accessed, right chest wall. HEAD: Normocephalic. EYES: No injection or drainage. NECK: Supple, trachea midline. CARDIOVASCULAR: Regular rate and rhythm RESPIRATORY: Breath sounds equal bilaterally. No accessory muscle use. GASTROINTESTINAL: Abdomen soft, non-tender, nondistended. EXTREMITIES: No cyanosis NEUROLOGICAL: awake. no obvious focal deficit. Assessment/Plan Problem List: (1) Neutropenic fever ICD Codes: D70.9 - Neutropenia, unspecified; R50.81 - Fever presenting with conditions classified elsewhere Status: Acute Plan: --On Vanco + Imipenem + Diflucan + Acyclovir. --BC, 05/31 + Klebsiella pneumoniae --most recent blood cultures negative. CT chest/abdomen pelvis show no nidus for infection. 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 tolerated D1 05/25: D2. monitor CBC, bilirubin. 05/26: D3. Tolerating chemotherapy. Add on daily stool softener with prn milk of magnesia for constipation. Monitor CBC. 05/27: D4. Continue chemotherapy. Transfuse 1 unit irradiated packed red blood cells for hemoglobin of 7.5 as her counts are trending down. Monitor CBC, CMP. 05.28: D5. tolerating chemo. no transfusion needed at present. 05/29: D6. chemo complete yesterday. give 2 units pRBC today 05/30. D7. no blood transfusion. monitor. 05/31. D8. +fever. start Vanco/Azactam. obtain BC. obtain CT. 06/01: D9. continue Vanco/Azactam. resume Coreg. 06/03: D11: continue antibiotics. supportive care 06/07: D15: feeling a bit improved. continue antibiotics. 1 unit pRBC 06/08: D16: continue antibiotics. 1 unit pRBC, 1 unit platelets. repeat BC 06/09: D 17 No Tx today. Await BM recovery. Repeat BM bx on saturday 06/10: D 18: 1 unit platelets. continue antibiotics. 06/11: D19: add zofran for nausea. give 2 units pRBC await BM Recovery. 06/12: D20: continue supportive care and antibiotics. no transfusion today. 06/13: D21: 1 unit platelets today. continue antibiotics. (3) Hypertension ICD Codes: I10 - Essential (primary) hypertension Status: Chronic Plan: --on home medications. -- Stable (4) Stomatitis ICD Codes: K12.1 - Other forms of stomatitis Plan: --d/t chemotherapy --on magic mouthwash. (5) Cough ICD Codes: R05 - Cough Plan: continue Duonebs, cough suppressants (6) Nausea & vomiting ICD Codes: R11.2 - Nausea with vomiting, unspecified Plan: --likely d/t Rydapt or other medications --on PRN Compazine + Zofran. Assessment 57y/o female admitted for salvage chemotherapy for relapse of acute myeloid leukemia, FLT3 positive. Attending Statement The exam, history, and the medical decision-making described in the above note were completed with the assistance of the mid-level provider. I reviewed and agree with the findings presented. I attest that I had a [id number] encounter with the patient on the same day, and personally performed and documented my assessment and findings in the medical record. C/O nausea and weakness. will finish Rydapt today Repeat BM bx tomorrow. Plat tx today. d/w RN Problem Qualifiers (1) Hypertension: Qualified Codes: I10 - Essential (primary) hypertension (2) Nausea & vomiting: Qualified Codes: R11.2 - Nausea with vomiting, unspecified Julianna Mcdaniel Jun 13, 2017 09:55 April Fonseca MD Jun 13, 2017 15:28
[2017-06-13] MEDS: MICAFUNGIN INJ 150 MG in SODIUM CHLORIDE 0.9% INJ 100 ML IV SCH (10:30)
--- NOTE | 2017-06-13 10:53 | HHI.IDPN ---
Note Infectious Disease Note ID Coverage Patient with acute myeloid leukemia, FLT3 positive. Admitted for salvage chemotherapy on 05/24/2017. Notes reviewed Has low-grade temps Tired Poor appetite No vomiting No diarrhea Abdominal pain No complaints No respiratory complaints WBC 0.1, making some neutrophils All blood cultures are negative. PAST MEDICAL HISTORY 1. Hypertension. 2. Hypercholesteremia. 3. COPD. 4. Rheumatoid arthritis. 5. Depression. 6. Anxiety disorder. PAST SURGICAL HISTORY 1. Cholecystectomy. 2. Etngmh-U-Smkt placement. 3. Complete hysterectomy. 4. Colon resection. ALLERGIES 1. SULFA. 2. CEFEPIME. 3. LATEX. Current Medications Primaxin Vancomycin Micafungin Acyclovir Medications (Trade) Dose Ordered Sig/Zeynep Route Start Time Stop Time Status Last Admin (Norvasc) 5 mg DAILY PO 05/24/17 09:00 06/13/17 08:17 (Cozaar) 100 mg DAILY PO 05/24/17 09:00 06/13/17 08:24 (Melatonin) 5 mg HS PRN PO 05/24/17 08:30 06/12/17 19:37 (Hydrodiuril) 25 mg DAILY PO 05/24/17 09:00 06/13/17 08:17 (Tylenol) 650 mg Q4H PRN PO 05/24/17 08:45 06/13/17 03:56 (Roxicodone) 5 mg Q4H PRN PO 05/24/17 12:15 06/03/17 20:41 Patient Own Medication PT OWN MED: RYDAPT (MIDOSTAUR... BID PO 05/31/17 09:00 06/13/17 21:01 06/13/17 08:16 (Magic Mouthwash Adult Liq) 5 ml QID SWISH-SWAL 05/24/17 13:00 06/13/17 08:24 (Colace) 100 mg DAILY PO 05/26/17 11:00 06/05/17 09:10 (Milk Of Magnesia Liq) 30 ml DAILY PRN PO 05/26/17 11:00 05/26/17 11:22 (NS Flush) 5 ml UNSCH PRN IV FLUSH 05/28/17 14:00 06/11/17 09:07 (Heparin Central Flush) 250 units UNSCH PRN IV FLUSH 05/28/17 14:00 05/29/17 04:51 (Heparin Central Flush) 500 units UNSCH IV FLUSH 05/28/17 14:00 (Tucks Pads) 1 applic UNSCH PRN TOPICAL 06/01/17 19:30 (Xylocaine 2% Viscous) 15 ml Q4H PRN SWISH-SPIT 06/03/17 15:00 06/06/17 09:29 (Zovirax) 400 mg Q8HR PO 06/03/17 15:15 06/13/17 06:07 (Coreg) 6.25 mg DAILY PO 06/05/17 09:00 06/13/17 08:17 (Benadryl) 25 mg Q4H PRN PO 06/04/17 16:00 06/11/17 13:23 (Compazine Inj) 10 mg Q8H PRN IV PUSH 06/05/17 10:00 06/13/17 08:16 (Afrin 0.05% Diaz [place]) 2 spray Q12H PRN NASAL 06/05/17 11:00 06/05/17 14:01 (KCl) 20 meq Q12HR PO 06/08/17 09:00 06/13/17 08:24 Micafungin Sodium 150 mg/Sodium Chloride 100 ml @ 100 mls/hr Q24H IV 06/08/17 11:00 06/13/17 10:30 Vancomycin HCl 1000 mg/Sodium Chloride 250 ml @ 250 mls/hr Q12H IV 06/08/17 13:00 06/13/17 00:04 Imipenem/ Cilastatin Sodium 500 mg/Sodium Chloride 100 ml @ 200 mls/hr Q6H IV 06/08/17 21:00 06/13/17 09:14 (Robitussin Dm 200-20 Mg/10 ml Liq) 10 ml Q6H PRN PO 06/08/17 23:45 06/13/17 08:16 (Duoneb Neb) 1 ampule Q6HR WHILE AWAKE NEB NEB 06/09/17 14:00 06/10/17 19:28 (Hycodan Liq) 5 ml BID PO 06/09/17 09:00 06/12/17 08:54 (Zofran Inj) 4 mg Q8HR IV PUSH 06/11/17 14:00 06/13/17 06:07 OBJECTIVE: Vital Signs Date Time Temp Pulse Resp B/P (MAP) Pulse Ox O2 Delivery O2 Flow Rate FiO2 06/13/17 10:00 86 06/13/17 09:00 88 06/13/17 08:13 91 Room Air 06/13/17 08:08 98.5 92 18 116/72 (87) 91 06/13/17 08:00 86 06/13/17 07:00 90 06/13/17 05:00 104 06/13/17 04:01 103 06/13/17 04:00 100 06/13/17 03:54 98.8 101 136/70 (92) 90 06/13/17 03:00 88 06/13/17 02:00 88 06/13/17 01:00 88 06/13/17 00:07 94 Room Air 06/13/17 00:03 94 06/13/17 00:00 99.3 92 18 110/73 (85) 94 06/12/17 23:00 94 06/12/17 22:00 92 06/12/17 21:00 106 06/12/17 20:02 112 06/12/17 19:50 100.3 112 18 140/90 (107) 91 06/12/17 19:00 88 06/12/17 18:00 94 06/12/17 17:00 76 06/12/17 16:00 82 06/12/17 15:35 99.3 87 18 118/85 (96) 93 06/12/17 15:00 89 06/12/17 14:00 78 06/12/17 13:00 84 06/12/17 12:00 82 06/12/17 11:49 99.1 81 18 106/68 (81) 94 06/12/17 11:00 87 Vital Signs Date Time Temp Pulse Resp B/P (MAP) Pulse Ox O2 Delivery O2 Flow Rate FiO2 06/12/17 13:00 84 06/12/17 12:00 82 06/12/17 11:49 99.1 81 18 106/68 (81) 94 06/12/17 11:00 87 06/12/17 10:24 100.9 06/12/17 10:00 90 06/12/17 09:00 118 06/12/17 08:00 118 2/3/18 07:47 94 Room Air 06/12/17 07:44 98.7 116 18 132/97 (109) 94 06/12/17 07:00 100 06/12/17 06:00 88 06/12/17 05:00 88 06/12/17 04:02 95 06/12/17 04:00 99.9 94 18 125/70 (88) 92 06/12/17 03:00 100 06/12/17 02:31 99.9 06/12/17 01:00 80 06/12/17 00:19 100.2 83 18 130/77 (94) 96 06/12/17 00:00 79 06/12/17 00:00 78 06/11/17 23:00 110 06/11/17 22:00 86 06/11/17 21:12 101.0 06/11/17 21:00 90 06/11/17 20:45 98.8 88 18 123/86 (98) 99 06/11/17 20:40 99 Nasal Cannula 1.50 06/11/17 20:19 88 06/11/17 18:06 89 06/11/17 18:04 99.7 89 16 116/77 (90) 96 06/11/17 17:02 99.7 89 16 116/77 96 06/11/17 17:00 94 06/11/17 16:49 98.2 86 18 114/70 93 06/11/17 16:00 88 06/11/17 15:00 104 06/11/17 14:21 101.5 105 18 94/49 96 06/11/17 14:05 101.7 101 18 108/70 94 06/11/17 14:00 86 06/11/17 13:35 Room Air 06/11/17 13:30 101.7 101 18 108/70 (83) 94 Laboratory Tests Test 06/12/17 05:30 06/13/17 04:00 White Blood Count 0.1 TH/MM3 0.1 TH/MM3 Red Blood Count 3.34 MIL/MM3 3.27 MIL/MM3 Hemoglobin 9.6 GM/DL 9.6 GM/DL Hematocrit 28.0 % 27.7 % Mean Corpuscular Volume 83.7 FL 84.5 FL Mean Corpuscular Hemoglobin 28.9 PG 29.2 PG Mean Corpuscular Hemoglobin Concent 34.5 % 34.6 % Red Cell Distribution Width 14.3 % 13.8 % Platelet Count 12 TH/MM3 8 TH/MM3 Mean Platelet Volume 7.9 FL 8.8 FL CBC Comment AUTO DIFF AUTO DIFF Differential Total Cells Counted 12 15 Neutrophils % (Manual) 33 % 60 % Band Neutrophils % 17 % 13 % Lymphocytes % 42 % 27 % Monocytes % 8 % Neutrophils # (Manual) 0.1 TH/MM3 0.1 TH/MM3 Differential Comment FINAL DIFF MANUAL FINAL DIFF MANUAL Platelet Estimate RARE RARE Platelet Morphology Comment NORMAL NORMAL Red Cell Morphology Comment NORMAL NORMAL Laboratory Tests Test 06/12/17 05:30 06/13/17 04:00 Blood Urea Nitrogen 10 MG/DL 7 MG/DL Creatinine 0.52 MG/DL 0.41 MG/DL Random Glucose 120 MG/DL 105 MG/DL Calcium Level 9.1 MG/DL 8.5 MG/DL Sodium Level 137 MEQ/L 138 MEQ/L Potassium Level 3.2 MEQ/L 3.3 MEQ/L Chloride Level 98 MEQ/L 99 MEQ/L Carbon Dioxide Level 30.6 MEQ/L 29.1 MEQ/L Anion Gap 8 MEQ/L 10 MEQ/L Estimat Glomerular Filtration Rate 121 ML/MIN 159 ML/MIN Total Protein 6.6 GM/DL Albumin 2.4 GM/DL Alkaline Phosphatase 85 U/L Aspartate Amino Transf (AST/SGOT) 8 U/L Alanine Aminotransferase (ALT/SGPT) 13 U/L Total Bilirubin 0.8 MG/DL Microbiology Date/Time Source Procedure Growth Status 06/11/17 03:08 Blood Peripheral Aerobic Blood Culture - Preliminary NO GROWTH IN 1 DAY Resulted 06/11/17 03:08 Blood Peripheral Anaerobic Blood Culture - Preliminary NO GROWTH IN 1 DAY Resulted 06/11/17 02:20 Blood Line Aerobic Blood Culture - Preliminary NO GROWTH IN 1 DAY Resulted 06/11/17 02:20 Blood Line Anaerobic Blood Culture - Preliminary NO GROWTH IN 1 DAY Resulted IMAGING: Chest X-Ray 06/06/17 0000 Signed Impressions: Service Date/Time: Tuesday, June 06, 2017 09:26 - CONCLUSION: Concern for pleural fluid bilaterally, left greater than right. Recommend repeat exam with upright PA and lateral views when clinically able. Jess Jay MD Head CT 06/04/17 0000 Signed Impressions: Service Date/Time: Sunday, June 04, 2017 16:02 - CONCLUSION: Normal examination for a patient of this age. No significant change has occurred. Alcides Longoria MD Chest X-Ray 05/31/17 0441 Signed Impressions: Service Date/Time: Wednesday, May 31, 2017 05:09 - CONCLUSION: The lungs are clear. Troy Clarke MD Chest CT 05/31/17 0000 Signed Impressions: Service Date/Time: Wednesday, May 31, 2017 17:30 - CONCLUSION: 1. No focal consolidation or effusion to suggest infection. No adenopathy. [id number]-[id number] in superior vena cava. Jacinto Tello MD Abdomen/Pelvis CT 05/31/17 0000 Signed Impressions: Service Date/Time: Wednesday, May 31, 2017 17:30 - CONCLUSION: 1. Diffuse hepatic fatty infiltration. 2. Similarly, diffuse fatty infiltration/atrophy of the pancreas. 3. 7.6 cm cyst laterally in the left renal cortex. 4. No acute intraperitoneal or pelvic process to explain current clinical symptoms. No significant change from prior. Cristo Hughes MD PHYSICAL EXAMINATION GENERAL: Awake and alert, nontoxic appearing No acute distress. HEENT: The head is atraumatic. Extraocular movements grossly intact. Pupils reactive to light. No icterus. No erythema. ulcerative lesion at side of tongue. The mucosa is moist. No thrush. NECK: Supple without adenopathy or swelling. LUNGS: Clear breath sounds. CHEST: Ibvxl-Q-fndl site without signs of infection. HEART: Regular S1 and S2 without murmurs, rubs or gallops. ABDOMEN: Bowel sounds present. Soft, obese, nontender. EXTREMITIES: No clubbing, cyanosis or edema. SKIN: No rash. NEUROLOGIC: Non focal. PSYCHIATRIC: Calm and cooperative. IMPRESSION Bacteremia. Klebsiella. Treated Febrile neutropenia/pancytopenia. Recurring fever. - Blood cultures has no growth. - CXR without signs of pneumonia. Acute myeloid leukemia. Receiving Rydapt. ? sinusitis. Previous pain at the left face resolved. The Rydapt also has side effects which could explain some of the symptoms. RECOMMENDATIONS Continue Imipenem. Continue vancomycin. Continue Micafungin. Continue Acyclovir. Follow temps Follow cultures Monitor progress Await covering of the bone marrow D/W H Vijaya Chatterjee MD Jun 13, 2017 10:53
[2017-06-13] MEDS: diphenhydrAMINE HCL 25 MG CAP PO PRN (11:05)
[2017-06-14] VITALS (23 sets, daily range): BP systolic 113–155; BP diastolic 72–98; PULSE 76–111; RESP 16–22; TEMP 97.1–100.1; O2SAT 92–98
[2017-06-14] MEDS: VANCOMYCIN 1,000 MG/NS 250 ML IV SCH ×4 (00:19→13:00)
[2017-06-14] MEDS: IMIPENEM/CILASTATIN INJ 500 MG in SODIUM CHLORIDE 0.9% INJ 100 ML IV SCH ×4 (03:22→20:50)
[2017-06-14] MEDS: guaiFENesin/DEXTROMETHORPHAN 200 MG/20 MG/10 ML CUP PO PRN ×2 (03:56→20:57)
[2017-06-14] MEDS: ACYCLOVIR 200 MG CAP PO SCH ×3 (05:56→20:51)
[2017-06-14] MEDS: ONDANSETRON HCL 4 MG/2 ML VIAL IV PUSH SCH ×3 (05:57→20:53)
[2017-06-14 06:46] LABS: HEMATOCRIT 28.9 % (35.0-46.0); HEMOGLOBIN 9.8 GM/DL (11.6-15.3); MEAN CELL VOLUME 84.4 FL (80.0-100.0); MEAN CORPUSCULAR HEMOGLOBIN 28.7 PG (27.0-34.0); MEAN PLATELET VOLUME 7.3 FL (7.0-11.0); PLATELET COUNT 26 TH/MM3 (150-450); RED BLOOD COUNT 3.43 MIL/MM3 (4.00-5.30); RED CELL DISTRIBUTION WIDTH 14.2 % (11.6-17.2); WHITE BLOOD COUNT 0.1 TH/MM3 (4.0-11.0)
[2017-06-14 06:56] LABS: ALBUMIN 2.8 GM/DL (3.4-5.0); ALT (GPT) 13 U/L (10-53); AST (GOT) 12 U/L (15-37); BICARBONATE 28.2 MEQ/L (21.0-32.0); BLOOD UREA NITROGEN 6 MG/DL (7-18); CALCIUM 9.1 MG/DL (8.5-10.1); CHLORIDE 100 MEQ/L (98-107); CREATININE 0.48 MG/DL (0.50-1.00); GLOMERULAR FILTRATION RATE 132 ML/MIN (>89); GLUCOSE,RANDOM 111 MG/DL (74-106); SODIUM (NA) 136 MEQ/L (136-145)
[2017-06-14 06:59] LABS: ALKALINE PHOSPHATASE 92 U/L (45-117); TOTAL BILIRUBIN ADULT 0.8 MG/DL (0.2-1.0); TOTAL PROTEIN 7.2 GM/DL (6.4-8.2)
[2017-06-14 07:50] LABS: LYMPHOCYTES 80 % (9-44); POLYS (SEG NEUTROPHILS) 20 % (16-70)
[2017-06-14] MEDS: DOCUSATE SODIUM 100 MG CAP PO SCH (09:00)
[2017-06-14] MEDS: HYDROcodone 5 MG/HOMATROPINE 1.5 MG SYRUP 5 ML CUP PO SCH ×2 (09:00→21:00)
[2017-06-14] MEDS: NYSTAT/DIPHENHY/LIDO MOUTHWASH (Adult) 120ML SWISH-SWAL SCH ×4 (09:00→21:01)
[2017-06-14] MEDS: CARVEDILOL 6.25 MG TAB PO SCH ×2 (09:33→16:53)
[2017-06-14] MEDS: LOSARTAN 50 MG TAB PO SCH ×2 (09:33→16:53)
[2017-06-14] MEDS: LORazepam 2 MG/ML VIAL IV PUSH PRN (11:11)
[2017-06-14] MEDS: MICAFUNGIN INJ 150 MG in SODIUM CHLORIDE 0.9% INJ 100 ML IV SCH (11:11)
[2017-06-14] MEDS: ACETAMINOPHEN 325 MG TAB PO PRN ×2 (12:15→20:50)
[2017-06-14] MEDS: diphenhydrAMINE HCL 25 MG CAP PO PRN (12:15)
--- NOTE | 2017-06-14 12:48 | HHI.IDPN ---
Note Infectious Disease Note Patient feels okay. Having temp spikes. Anxious about the potential result of Bone Marrow biopsy to be done today. No nose bleed Coughing white phlegm. No SOB. No chills. Blood cultures are negative. Patient with acute myeloid leukemia, FLT3 positive. Admitted for salvage chemotherapy on 05/24/2017. PAST MEDICAL HISTORY 1. Hypertension. 2. Hypercholesteremia. 3. COPD. 4. Rheumatoid arthritis. 5. Depression. 6. Anxiety disorder. PAST SURGICAL HISTORY 1. Cholecystectomy. 2. Rtmmue-C-Czio placement. 3. Complete hysterectomy. 4. Colon resection. ALLERGIES 1. SULFA. 2. CEFEPIME. 3. LATEX. ANTIBIOTICS 1. Imipenem. 2. Vancomycin. 3. Micafungin. 4. Acyclovir. OBJECTIVE: Vital Signs Date Time Temp Pulse Resp B/P (MAP) Pulse Ox O2 Delivery O2 Flow Rate FiO2 06/14/17 10:20 Room Air 06/14/17 09:06 99.5 111 20 150/86 (107) 94 06/14/17 08:00 92 06/14/17 06:00 106 06/14/17 05:02 87 06/14/17 04:13 93 06/14/17 04:01 100.1 106 18 138/85 (102) 93 06/14/17 03:00 82 06/14/17 02:00 80 06/14/17 01:00 82 06/14/17 00:26 95 Nasal Cannula 2.00 06/14/17 00:25 87 Room Air 06/14/17 00:15 98.9 87 18 120/75 (90) 95 06/14/17 00:05 88 06/13/17 23:00 78 06/13/17 22:00 106 06/13/17 21:00 102 06/13/17 20:30 Room Air 06/13/17 20:08 102 06/13/17 19:33 101.5 110 20 144/92 (109) 94 06/13/17 19:00 88 06/13/17 18:00 84 06/13/17 17:00 86 06/13/17 16:00 84 06/13/17 15:18 99.0 87 18 119/79 (92) 94 06/13/17 14:00 88 06/13/17 13:00 84 Laboratory Tests Test 06/13/17 04:00 06/14/17 06:00 White Blood Count 0.1 TH/MM3 0.1 TH/MM3 Red Blood Count 3.27 MIL/MM3 3.43 MIL/MM3 Hemoglobin 9.6 GM/DL 9.8 GM/DL Hematocrit 27.7 % 28.9 % Mean Corpuscular Volume 84.5 FL 84.4 FL Mean Corpuscular Hemoglobin 29.2 PG 28.7 PG Mean Corpuscular Hemoglobin Concent 34.6 % 34.0 % Red Cell Distribution Width 13.8 % 14.2 % Platelet Count 8 TH/MM3 26 TH/MM3 Mean Platelet Volume 8.8 FL 7.3 FL CBC Comment AUTO DIFF AUTO DIFF Differential Total Cells Counted 15 10 Neutrophils % (Manual) 60 % 20 % Band Neutrophils % 13 % Lymphocytes % 27 % 80 % Neutrophils # (Manual) 0.1 TH/MM3 0.0 TH/MM3 Differential Comment FINAL DIFF MANUAL FINAL DIFF MANUAL Platelet Estimate RARE LOW Platelet Morphology Comment NORMAL NORMAL Red Cell Morphology Comment NORMAL Laboratory Tests Test 06/13/17 04:00 06/14/17 06:00 Blood Urea Nitrogen 7 MG/DL 6 MG/DL Creatinine 0.41 MG/DL 0.48 MG/DL Random Glucose 105 MG/DL 111 MG/DL Total Protein 6.6 GM/DL 7.2 GM/DL Albumin 2.4 GM/DL 2.8 GM/DL Calcium Level 8.5 MG/DL 9.1 MG/DL Alkaline Phosphatase 85 U/L 92 U/L Aspartate Amino Transf (AST/SGOT) 8 U/L 12 U/L Alanine Aminotransferase (ALT/SGPT) 13 U/L 13 U/L Total Bilirubin 0.8 MG/DL 0.8 MG/DL Sodium Level 138 MEQ/L 136 MEQ/L Potassium Level 3.3 MEQ/L 3.5 MEQ/L Chloride Level 99 MEQ/L 100 MEQ/L Carbon Dioxide Level 29.1 MEQ/L 28.2 MEQ/L Anion Gap 10 MEQ/L 8 MEQ/L Estimat Glomerular Filtration Rate 159 ML/MIN 132 ML/MIN IMAGING: Chest X-Ray 06/06/17 0000 Signed Impressions: Service Date/Time: Tuesday, June 06, 2017 09:26 - CONCLUSION: Concern for pleural fluid bilaterally, left greater than right. Recommend repeat exam with upright PA and lateral views when clinically able. Jess Jay MD Head CT 06/04/17 0000 Signed Impressions: Service Date/Time: Sunday, June 04, 2017 16:02 - CONCLUSION: Normal examination for a patient of this age. No significant change has occurred. Alcides Longoria MD Chest X-Ray 05/31/17 0441 Signed Impressions: Service Date/Time: Wednesday, May 31, 2017 05:09 - CONCLUSION: The lungs are clear. Troy Clarke MD Chest CT 05/31/17 0000 Signed Impressions: Service Date/Time: Wednesday, May 31, 2017 17:30 - CONCLUSION: 1. No focal consolidation or effusion to suggest infection. No adenopathy. Kmzdpc-[id number]-[id number] in superior vena cava. Jacinto Tello MD Abdomen/Pelvis CT 05/31/17 0000 Signed Impressions: Service Date/Time: Wednesday, May 31, 2017 17:30 - CONCLUSION: 1. Diffuse hepatic fatty infiltration. 2. Similarly, diffuse fatty infiltration/atrophy of the pancreas. 3. 7.6 cm cyst laterally in the left renal cortex. 4. No acute intraperitoneal or pelvic process to explain current clinical symptoms. No significant change from prior. Cristo Hughes MD PHYSICAL EXAMINATION GENERAL: No acute distress. HEENT: Head atraumatic. Extraocular movements grossly intact. Pupils reactive to light. No icterus. No erythema. ulcerative lesion at side of tongue. The mucosa is moist. No thrush. NECK: Supple without adenopathy or swelling. LUNGS: Clear. CHEST: Euopy-W-awnm site without signs of infection. HEART: Regular S1 and S2 without murmurs, rubs or gallops. ABDOMEN: Bowel sounds present. Soft, obese, nontender. EXTREMITIES: No clubbing, cyanosis or edema. SKIN: No rash. NEUROLOGIC: Non focal. PSYCHIATRIC: Calm and cooperative. IMPRESSION 1. Bacteremia. Klebsiella. Treated 2. Febrile neutropenia/pancytopenia. Recurring fever. Blood cultures has no growth. CXR without signs of pneumonia. 3. Acute myeloid leukemia. Receiving Rydapt. 4. ? sinusitis. Previous pain at the left face resolved. The Rydapt also has side effects which could explain some of the symptoms. RECOMMENDATIONS 1. Continue Imipenem. 2. Continue vancomycin. 3. Continue Micafungin. 4. Continue Acyclovir. 5. Follow blood counts. 6. Monitor blood cultures. 7. Monitor temps. 8. Monitor clinical status. Jim Grande MD Jun 14, 2017 12:48
--- NOTE | 2017-06-14 14:43 | PD.ONC.PN ---
Subjective Subjective Remarks very anxious to BM BX today. still has fever on and off. Objective Data Date Time Temp Pulse Resp B/P (MAP) Pulse Ox O2 Delivery O2 Flow Rate FiO2 06/14/17 13:05 99.8 101 18 129/72 97 06/14/17 10:20 Room Air 06/14/17 09:06 99.5 111 20 150/86 (107) 94 06/14/17 08:00 92 06/14/17 06:00 106 06/14/17 05:02 87 06/14/17 04:13 93 06/14/17 04:01 100.1 106 18 138/85 (102) 93 06/14/17 03:00 82 06/14/17 02:00 80 06/14/17 01:00 82 06/14/17 00:26 95 Nasal Cannula 2.00 06/14/17 00:25 87 Room Air 06/14/17 00:15 98.9 87 18 120/75 (90) 95 06/14/17 00:05 88 06/13/17 23:00 78 06/13/17 22:00 106 06/13/17 21:00 102 06/13/17 20:30 Room Air 06/13/17 20:08 102 06/13/17 19:33 101.5 110 20 144/92 (109) 94 06/13/17 19:00 88 06/13/17 18:00 84 06/13/17 17:00 86 06/13/17 16:00 84 06/13/17 15:18 99.0 87 18 119/79 (92) 94 06/14/17 06/14/17 06/14/17 07:00 15:00 23:00 Intake Total 240 ml Output Total 900 ml Balance -660 ml Result Diagram: 06/14/17 0600 06/14/17 0600 Laboratory Results Laboratory Tests Test 06/14/17 06:00 White Blood Count 0.1 TH/MM3 Red Blood Count 3.43 MIL/MM3 Hemoglobin 9.8 GM/DL Hematocrit 28.9 % Mean Corpuscular Volume 84.4 FL Mean Corpuscular Hemoglobin 28.7 PG Mean Corpuscular Hemoglobin Concent 34.0 % Red Cell Distribution Width 14.2 % Platelet Count 26 TH/MM3 Mean Platelet Volume 7.3 FL CBC Comment AUTO DIFF Differential Total Cells Counted 10 Neutrophils % (Manual) 20 % Lymphocytes % 80 % Neutrophils # (Manual) 0.0 TH/MM3 Differential Comment FINAL DIFF MANUAL Platelet Estimate LOW Platelet Morphology Comment NORMAL Blood Urea Nitrogen 6 MG/DL Creatinine 0.48 MG/DL Random Glucose 111 MG/DL Total Protein 7.2 GM/DL Albumin 2.8 GM/DL Calcium Level 9.1 MG/DL Alkaline Phosphatase 92 U/L Aspartate Amino Transf (AST/SGOT) 12 U/L Alanine Aminotransferase (ALT/SGPT) 13 U/L Total Bilirubin 0.8 MG/DL Sodium Level 136 MEQ/L Potassium Level 3.5 MEQ/L Chloride Level 100 MEQ/L Carbon Dioxide Level 28.2 MEQ/L Anion Gap 8 MEQ/L Estimat Glomerular Filtration Rate 132 ML/MIN Administered Medications Medications (Trade) Dose Ordered Sig/Zeynep Route PRN Reason Start Time Stop Time Status Last Admin Dose Admin Amlodipine Besylate (Norvasc) 5 mg DAILY PO 05/24/17 09:00 06/13/17 08:17 Losartan Potassium (Cozaar) 100 mg DAILY PO 05/24/17 09:00 06/13/17 08:24 Melatonin (Melatonin) 5 mg HS PRN PO insomnia 05/24/17 08:30 06/12/17 19:37 Hydrochlorothiazide (Hydrodiuril) 25 mg DAILY PO 05/24/17 09:00 06/13/17 08:17 Acetaminophen (Tylenol) 650 mg Q4H PRN PO fever>100.4 or premedication 05/24/17 08:45 06/14/17 12:15 Oxycodone HCl (Roxicodone) 5 mg Q4H PRN PO pain>5 05/24/17 12:15 06/03/17 20:41 Multi-Ingredient Mouthwash/Gargle (Magic Mouthwash Adult Liq) 5 ml QID SWISH-SWAL 05/24/17 13:00 06/13/17 08:24 Docusate Sodium (Colace) 100 mg DAILY PO 05/26/17 11:00 06/05/17 09:10 Magnesium Hydroxide (Milk Of Magnesia Liq) 30 ml DAILY PRN PO MILD - MODERATE CONSTIPATION 05/26/17 11:00 05/26/17 11:22 Sodium Chloride (NS Flush) 5 ml UNSCH PRN IV FLUSH SEE PROTOCOL TABLE 05/28/17 14:00 06/11/17 09:07 Heparin Sodium (Porcine) (Heparin Central Flush) 250 units UNSCH PRN IV FLUSH SEE PROTOCOL TABLE 05/28/17 14:00 06/13/17 16:30 Heparin Sodium (Porcine) (Heparin Central Flush) 500 units UNSCH IV FLUSH 05/28/17 14:00 06/14/17 05:57 Lidocaine HCl (Xylocaine 2% Viscous) 15 ml Q4H PRN SWISH-SPIT mouth pain 06/03/17 15:00 06/06/17 09:29 Acyclovir (Zovirax) 400 mg Q8HR PO 06/03/17 15:15 06/14/17 05:56 Carvedilol (Coreg) 6.25 mg DAILY PO 06/05/17 09:00 06/13/17 08:17 Diphenhydramine HCl (Benadryl) 25 mg Q4H PRN PO premedication for blood produc 06/04/17 16:00 06/14/17 12:15 Prochlorperazine Edisylate (Compazine Inj) 10 mg Q8H PRN IV PUSH nausea 06/05/17 10:00 06/13/17 20:29 Oxymetazoline HCl (Afrin 0.05% Diaz [place]) 2 spray Q12H PRN NASAL NASAL CONGESTION 06/05/17 11:00 06/05/17 14:01 Potassium Chloride (KCl) 20 meq Q12HR PO 06/08/17 09:00 06/13/17 21:08 Micafungin Sodium 150 mg/Sodium Chloride 100 ml @ 100 mls/hr Q24H IV 06/08/17 11:00 06/14/17 11:11 Vancomycin HCl 1000 mg/Sodium Chloride 250 ml @ 250 mls/hr Q12H IV 06/08/17 13:00 06/14/17 00:19 Imipenem/ Cilastatin Sodium 500 mg/Sodium Chloride 100 ml @ 200 mls/hr Q6H IV 06/08/17 21:00 06/14/17 09:33 Guaifenesin/ Dextromethorphan (Robitussin Dm 200-20 Mg/10 ml Liq) 10 ml Q6H PRN PO COUGH 06/08/17 23:45 06/14/17 03:56 Hydrocodone Bit/ Homatropine Methylb (Hycodan Liq) 5 ml BID PO 06/09/17 09:00 06/12/17 08:54 Ondansetron HCl (Zofran Inj) 4 mg Q8HR IV PUSH 06/11/17 14:00 06/14/17 05:57 Lorazepam (Ativan Inj) 1 mg Q4H PRN IV PUSH ANXIETY 06/14/17 11:15 06/14/17 11:11 Objective Remarks GENERAL: Well-nourished, well-developed patient. SKIN: Warm and dry. HEAD: Normocephalic. EYES: No scleral icterus. No injection or drainage. NECK: Supple, trachea midline. No JVD or lymphadenopathy. LYMPHATIC: No adenopathy. CARDIOVASCULAR: Regular rate and rhythm without murmurs. RESPIRATORY: Breath sounds equal bilaterally. No accessory muscle use. GASTROINTESTINAL: Abdomen soft, non-tender, nondistended. EXTREMITIES: No cyanosis, or edema. NEUROLOGICAL: No obvious focal deficit. Awake, alert, and oriented x3. Assessment/Plan Problem List: (1) Neutropenic fever ICD Codes: D70.9 - Neutropenia, unspecified; R50.81 - Fever presenting with conditions classified elsewhere Status: Acute Plan: --On Vanco + Imipenem + Diflucan + Acyclovir. --BC, 05/31 + Klebsiella pneumoniae --most recent blood cultures negative. CT chest/abdomen pelvis show no nidus for infection. 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 tolerated D1 16: D2. monitor CBC, bilirubin. 05/26: D3. Tolerating chemotherapy. Add on daily stool softener with prn milk of magnesia for constipation. Monitor CBC. 05/27: D4. Continue chemotherapy. Transfuse 1 unit irradiated packed red blood cells for hemoglobin of 7.5 as her counts are trending down. Monitor CBC, CMP. .: D5. tolerating chemo. no transfusion needed at present. 05/29: D6. chemo complete yesterday. give 2 units pRBC today 05/30. D7. no blood transfusion. monitor. 05/31. D8. +fever. start Vanco/Azactam. obtain BC. obtain CT. 06/01: D9. continue Vanco/Azactam. resume Coreg. 06/03: D11: continue antibiotics. supportive care 06/07: D15: feeling a bit improved. continue antibiotics. 1 unit pRBC 06/08: D16: continue antibiotics. 1 unit pRBC, 1 unit platelets. repeat BC 06/09: D 17 No Tx today. Await BM recovery. Repeat BM bx on saturday 06/10: D 18: 1 unit platelets. continue antibiotics. 06/11: D19: add zofran for nausea. give 2 units pRBC await BM Recovery. 06/12: D20: continue supportive care and antibiotics. no transfusion today. 06/13: D21: 1 unit platelets today. continue antibiotics. 06/14 D 22 1 units plat tx for the bm bx today by PACO Baum for anxiety (3) Hypertension ICD Codes: I10 - Essential (primary) hypertension Status: Chronic Plan: --on home medications. -- Stable (4) Stomatitis ICD Codes: K12.1 - Other forms of stomatitis Plan: --d/t chemotherapy --on magic mouthwash. (5) Cough ICD Codes: R05 - Cough Plan: continue Duonebs, cough suppressants (6) Nausea & vomiting ICD Codes: R11.2 - Nausea with vomiting, unspecified Plan: --likely d/t Rydapt or other medications --on PRN Compazine + Zofran. Assessment 57y/o female admitted for salvage chemotherapy for relapse of acute myeloid leukemia, FLT3 positive. Problem Qualifiers (1) Hypertension: Qualified Codes: I10 - Essential (primary) hypertension (2) Nausea & vomiting: Qualified Codes: R11.2 - Nausea with vomiting, unspecified Sorathia,Sandy Chun MD Jun 14, 2017 14:43
--- NOTE | 2017-06-14 16:28 | RADRPT ---
EXAM DATE/TIME: 06/14/2017 14:28 [place] COMPARISON: CT NEEDLE BIOPSY BONE MARROW, May 14, 2017, 12:16. INDICATIONS : Acute myeloid leukemia. SEDATION TIME: 30 minutes BIOPSY SITE: Right MEDICATION(S): 1.) 4 mg midazolam (Versed) IV 2.) 200 mcg fentanyl (Sublimaze) IV DEVICE(S): 1.) 11 gauge Bone marrow biopsy needle MEDICAL HISTORY : Leukemia. Cardiovascular disease. SURGICAL HISTORY : Hysterectomy. ENCOUNTER: Initial ACUITY: 1 day PAIN SCORE: 0/10 LOCATION: Right iliac bone A total of one core specimen(s) were obtained and sent to the laboratory for pathologic evaluation. PROCEDURE: 1. CT guided bone marrow biopsy. 2. Conscious sedation with continuous EKG and oximetry monitoring. 3. EKG and oximetry remained stable throughout the procedure. Prior to the procedure informed consent was obtained. Any appropriate prior imaging studies were rev iewed. Using automated exposure control and adjustment of the mA and/or kV according to patient size , radiation dose was kept as low as reasonably achievable to obtain optimal diagnostic quality images . DICOM format image data is available electronically for review and comparison. The site was prepped in a sterile fashion. Full sterile technique was used, including cap, mask, darren rile gloves and gown and a large sterile sheet. Hand hygiene and 2% chlorhexidine and/or betadine/al cohol prep was utilized per protocol for cutaneous antisepsis. The skin and subcutaneous tissues wer e infiltrated with local anesthetic solution. With CT guidance the previously identified target was localized. Biopsy was performed using the presc ribed needle as above. Following biopsy marrow aspiration was performed with repeat puncture. Adequa te hemostasis was obtained with compression at the puncture site. Follow-up CT scan reveals no hemorrhage. Conscious sedation was performed with the prescribed dosages and duration as above in the presence of an independent trained radiology nurse to assist in the monitoring of the patient. EKG and oximetry remained stable throughout the procedure. The patient tolerated the procedure well and there were no complications. The patient was sent to Radiology Outpatient Unit in stable condition. CONCLUSION: 1. Uncomplicated CT guided bone marrow aspirate. 2. Uncomplicated CT guided bone marrow biopsy. Malcolm Coker MD on June 14, 2017 at 16:25 Board Certified Radiologist. This report was verified electronically.
[2017-06-14] MEDS: amLODIPine BESYLATE 5 MG TAB PO SCH (16:53)
[2017-06-14] MEDS: POTASSIUM CHLORIDE 10 MEQ CONTROLLED RELEASE TAB PO SCH ×2 (16:53→20:51)
[2017-06-14] MEDS: HYDROCHLOROTHIAZIDE 25 MG TAB PO SCH (17:01)
[2017-06-15] VITALS (28 sets, daily range): BP systolic 102–124; BP diastolic 72–93; PULSE 73–112; RESP 18–20; TEMP 97.8–99.2; O2SAT 92–98
[2017-06-15] MEDS: VANCOMYCIN 1,000 MG/NS 250 ML IV SCH ×4 (00:38→13:53)
[2017-06-15] MEDS: IMIPENEM/CILASTATIN INJ 500 MG in SODIUM CHLORIDE 0.9% INJ 100 ML IV SCH ×4 (03:38→20:16)
[2017-06-15] MEDS: ACETAMINOPHEN 325 MG TAB PO PRN (03:39)
[2017-06-15] MEDS: ACYCLOVIR 200 MG CAP PO SCH ×3 (06:14→20:23)
[2017-06-15] MEDS: ONDANSETRON HCL 4 MG/2 ML VIAL IV PUSH SCH ×3 (06:14→20:17)
[2017-06-15 06:59] LABS: HEMATOCRIT 29.8 % (35.0-46.0); HEMOGLOBIN 10.1 GM/DL (11.6-15.3); MEAN CELL VOLUME 84.5 FL (80.0-100.0); MEAN CORPUSCULAR HEMOGLOBIN 28.6 PG (27.0-34.0); MEAN CORPUSCULAR HGB CONC 33.8 % (32.0-36.0); MEAN PLATELET VOLUME 7.7 FL (7.0-11.0); PLATELET COUNT 37 TH/MM3 (150-450); RED BLOOD COUNT 3.53 MIL/MM3 (4.00-5.30); RED CELL DISTRIBUTION WIDTH 13.7 % (11.6-17.2); WHITE BLOOD COUNT 0.1 TH/MM3 (4.0-11.0)
[2017-06-15 07:14] LABS: ALBUMIN 2.8 GM/DL (3.4-5.0); ALT (GPT) 12 U/L (10-53); AST (GOT) 9 U/L (15-37); BICARBONATE 29.4 MEQ/L (21.0-32.0); BLOOD UREA NITROGEN 7 MG/DL (7-18); CALCIUM 9.6 MG/DL (8.5-10.1); CHLORIDE 100 MEQ/L (98-107); CREATININE 0.49 MG/DL (0.50-1.00); GLOMERULAR FILTRATION RATE 129 ML/MIN (>89); GLUCOSE,RANDOM 102 MG/DL (74-106); SODIUM (NA) 136 MEQ/L (136-145)
[2017-06-15 07:17] LABS: ALKALINE PHOSPHATASE 95 U/L (45-117); TOTAL BILIRUBIN ADULT 0.7 MG/DL (0.2-1.0); TOTAL PROTEIN 7.3 GM/DL (6.4-8.2)
[2017-06-15] MEDS: CARVEDILOL 6.25 MG TAB PO SCH (07:35)
[2017-06-15] MEDS: HYDROCHLOROTHIAZIDE 25 MG TAB PO SCH (07:36)
[2017-06-15] MEDS: POTASSIUM CHLORIDE 10 MEQ CONTROLLED RELEASE TAB PO SCH ×2 (07:45→20:14)
[2017-06-15] MEDS: HYDROcodone 5 MG/HOMATROPINE 1.5 MG SYRUP 5 ML CUP PO SCH ×2 (07:45→20:11)
[2017-06-15] MEDS: NYSTAT/DIPHENHY/LIDO MOUTHWASH (Adult) 120ML SWISH-SWAL SCH ×4 (07:45→20:16)
[2017-06-15] MEDS: DOCUSATE SODIUM 100 MG CAP PO SCH (07:46)
[2017-06-15 07:53] LABS: LYMPHOCYTES 70 % (9-44); POLYS (SEG NEUTROPHILS) 30 % (16-70)
[2017-06-15 07:54] LABS: OVALOCYTES 1+ (NORMAL)
--- NOTE | 2017-06-15 09:58 | PD.ONC.PN ---
Subjective Subjective Remarks Afebrile overnight. Patient resting in bed. Tired of being in the hospital. Nausea improving some. Able to eat certain foods. would like some cream for her dry legs. Objective Data Date Time Temp Pulse Resp B/P (MAP) Pulse Ox O2 Delivery O2 Flow Rate FiO2 06/15/17 08:00 90 06/15/17 07:46 97.8 82 18 102/72 (82) 96 06/15/17 06:00 82 06/15/17 05:00 78 06/15/17 04:39 16 06/15/17 04:04 78 06/15/17 04:01 98.8 88 20 120/73 (89) 97 06/15/17 03:00 73 06/15/17 02:00 74 06/15/17 01:26 88 06/15/17 00:52 Nasal Cannula 2.00 06/15/17 00:36 99.2 90 116/73 (87) 92 06/15/17 00:03 88 06/14/17 23:00 90 06/14/17 22:01 95 06/14/17 21:00 110 06/14/17 20:50 99.4 101 22 155/98 (117) 92 06/14/17 20:50 Nasal Cannula 2.00 06/14/17 20:49 87 Room Air 06/14/17 20:07 76 06/14/17 19:00 82 06/14/17 17:18 88 06/14/17 16:17 84 16 113/87 (96) 98 06/14/17 16:00 97.1 90 18 126/93 (104) 95 06/14/17 15:47 97 16 120/96 (104) 98 06/14/17 15:25 98.3 97 16 131/88 (102) 98 06/14/17 13:05 99.8 101 18 129/72 97 06/14/17 10:20 Room Air 06/15/17 06/15/17 06/15/17 07:00 15:00 23:00 Intake Total 600 ml Output Total 1700 ml Balance -1100 ml Result Diagram: 06/15/17 0620 06/15/17 0620 Laboratory Results Laboratory Tests Test 06/14/17 14:52 06/15/17 06:20 White Blood Count 0.1 TH/MM3 Red Blood Count 3.53 MIL/MM3 Hemoglobin 10.1 GM/DL Hematocrit 29.8 % Mean Corpuscular Volume 84.5 FL Mean Corpuscular Hemoglobin 28.6 PG Mean Corpuscular Hemoglobin Concent 33.8 % Red Cell Distribution Width 13.7 % Platelet Count 37 TH/MM3 Mean Platelet Volume 7.7 FL CBC Comment AUTO DIFF Differential Total Cells Counted 10 Neutrophils % (Manual) 30 % Lymphocytes % 70 % Neutrophils # (Manual) 0.0 TH/MM3 Differential Comment FINAL DIFF MANUAL Platelet Estimate LOW Platelet Morphology Comment NORMAL Ovalocytes 1+ Blood Urea Nitrogen 7 MG/DL Creatinine 0.49 MG/DL Random Glucose 102 MG/DL Total Protein 7.3 GM/DL Albumin 2.8 GM/DL Calcium Level 9.6 MG/DL Alkaline Phosphatase 95 U/L Aspartate Amino Transf (AST/SGOT) 9 U/L Alanine Aminotransferase (ALT/SGPT) 12 U/L Total Bilirubin 0.7 MG/DL Sodium Level 136 MEQ/L Potassium Level 4.0 MEQ/L Chloride Level 100 MEQ/L Carbon Dioxide Level 29.4 MEQ/L Anion Gap 7 MEQ/L Estimat Glomerular Filtration Rate 129 ML/MIN Administered Medications Medications (Trade) Dose Ordered Sig/Zeynep Route PRN Reason Start Time Stop Time Status Last Admin Dose Admin Amlodipine Besylate (Norvasc) 5 mg DAILY PO 05/24/17 09:00 06/14/17 16:53 Losartan Potassium (Cozaar) 100 mg DAILY PO 05/24/17 09:00 06/14/17 16:53 Melatonin (Melatonin) 5 mg HS PRN PO insomnia 05/24/17 08:30 06/12/17 19:37 Hydrochlorothiazide (Hydrodiuril) 25 mg DAILY PO 05/24/17 09:00 06/15/17 07:36 Acetaminophen (Tylenol) 650 mg Q4H PRN PO fever>100.4 or premedication 05/24/17 08:45 06/15/17 03:39 Oxycodone HCl (Roxicodone) 5 mg Q4H PRN PO pain>5 05/24/17 12:15 06/03/17 20:41 Multi-Ingredient Mouthwash/Gargle (Magic Mouthwash Adult Liq) 5 ml QID SWISH-SWAL 05/24/17 13:00 06/13/17 08:24 Docusate Sodium (Colace) 100 mg DAILY PO 05/26/17 11:00 06/05/17 09:10 Magnesium Hydroxide (Milk Of Magnjamie Liq) 30 ml DAILY PRN PO MILD - MODERATE CONSTIPATION 05/26/17 11:00 05/26/17 11:22 Sodium Chloride (NS Flush) 5 ml UNSCH PRN IV FLUSH SEE PROTOCOL TABLE 05/28/17 14:00 06/11/17 09:07 Heparin Sodium (Porcine) (Heparin Central Flush) 250 units UNSCH PRN IV FLUSH SEE PROTOCOL TABLE 05/28/17 14:00 06/15/17 06:14 Heparin Sodium (Porcine) (Heparin Central Flush) 500 units UNSCH IV FLUSH 05/28/17 14:00 06/14/17 05:57 Lidocaine HCl (Xylocaine 2% Viscous) 15 ml Q4H PRN SWISH-SPIT mouth pain 06/03/17 15:00 06/06/17 09:29 Acyclovir (Zovirax) 400 mg Q8HR PO 06/03/17 15:15 06/15/17 06:14 Carvedilol (Coreg) 6.25 mg DAILY PO 06/05/17 09:00 06/15/17 07:35 Diphenhydramine HCl (Benadryl) 25 mg Q4H PRN PO premedication for blood produc 06/04/17 16:00 06/14/17 12:15 Prochlorperazine Edisylate (Compazine Inj) 10 mg Q8H PRN IV PUSH nausea 06/05/17 10:00 06/13/17 20:29 Oxymetazoline HCl (Afrin 0.05% Diaz [place]) 2 spray Q12H PRN NASAL NASAL CONGESTION 06/05/17 11:00 06/05/17 14:01 Potassium Chloride (KCl) 20 meq Q12HR PO 06/08/17 09:00 06/14/17 20:51 Micafungin Sodium 150 mg/Sodium Chloride 100 ml @ 100 mls/hr Q24H IV 06/08/17 11:00 06/14/17 11:11 Vancomycin HCl 1000 mg/Sodium Chloride 250 ml @ 250 mls/hr Q12H IV 06/08/17 13:00 06/15/17 00:38 Imipenem/ Cilastatin Sodium 500 mg/Sodium Chloride 100 ml @ 200 mls/hr Q6H IV 06/08/17 21:00 06/15/17 07:35 Guaifenesin/ Dextromethorphan (Robitussin Dm 200-20 Mg/10 ml Liq) 10 ml Q6H PRN PO COUGH 06/08/17 23:45 06/14/17 20:57 Hydrocodone Bit/ Homatropine Methylb (Hycodan Liq) 5 ml BID PO 06/09/17 09:00 06/12/17 08:54 Ondansetron HCl (Zofran Inj) 4 mg Q8HR IV PUSH 06/11/17 14:00 06/15/17 06:14 Lorazepam (Ativan Inj) 1 mg Q4H PRN IV PUSH ANXIETY 06/14/17 11:15 06/14/17 11:11 Objective Remarks GENERAL: Middle aged female, chronically ill appearing, sitting up on side of bed in [facility]. SKIN: Warm and dry. +port right chest wall. HEAD: Normocephalic. EYES: No injection or drainage. MOUTH: a few small oral sores NECK: Supple, trachea midline. CARDIOVASCULAR: Regular rate and rhythm RESPIRATORY: Breath sounds equal bilaterally. No accessory muscle use. GASTROINTESTINAL: Abdomen soft, non-tender, nondistended. EXTREMITIES: No cyanosis NEUROLOGICAL: no obvious focal deficit. Assessment/Plan Problem List: (1) Neutropenic fever ICD Codes: D70.9 - Neutropenia, unspecified; R50.81 - Fever presenting with conditions classified elsewhere Status: Acute Plan: --On Vanco + Imipenem + Diflucan + Acyclovir. --BC, 05/31 + Klebsiella pneumoniae --most recent blood cultures negative. CT chest/abdomen pelvis show no nidus for infection. 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 tolerated D1 05/25: D2. monitor CBC, bilirubin. 05/26: D3. Tolerating chemotherapy. Add on daily stool softener with prn milk of magnesia for constipation. Monitor CBC. 05/27: D4. Continue chemotherapy. Transfuse 1 unit irradiated packed red blood cells for hemoglobin of 7.5 as her counts are trending down. Monitor CBC, CMP. 1.: D5. tolerating chemo. no transfusion needed at present. 05/29: D6. chemo complete yesterday. give 2 units pRBC today 05/30. D7. no blood transfusion. monitor. 05/31. D8. +fever. start Vanco/Azactam. obtain BC. obtain CT. 06/01: D9. continue Vanco/Azactam. resume Coreg. 06/03: D11: continue antibiotics. supportive care 06/07: D15: feeling a bit improved. continue antibiotics. 1 unit pRBC 06/08: D16: continue antibiotics. 1 unit pRBC, 1 unit platelets. repeat BC 06/09: D 17 No Tx today. Await BM recovery. Repeat BM bx on saturday 06/10: D 18: 1 unit platelets. continue antibiotics. 06/11: D19: add zofran for nausea. give 2 units pRBC await BM Recovery. 06/12: D20: continue supportive care and antibiotics. no transfusion today. 06/13: D21: 1 unit platelets today. continue antibiotics. 06/14 D 22 1 units plat tx for the bm bx today by IR. Baum for anxiety 06/15: D23. no transfusion. await BMB (3) Hypertension ICD Codes: I10 - Essential (primary) hypertension Status: Chronic Plan: --on home medications. -- Stable (4) Stomatitis ICD Codes: K12.1 - Other forms of stomatitis Plan: --d/t chemotherapy --on magic mouthwash. (5) Cough ICD Codes: R05 - Cough Plan: continue Duonebs, cough suppressants (6) Nausea & vomiting ICD Codes: R11.2 - Nausea with vomiting, unspecified Plan: --likely d/t Rydapt or other medications --on PRN Compazine + Zofran. Assessment 57y/o female admitted for salvage chemotherapy for relapse of acute myeloid leukemia, FLT3 positive. Attending Statement The exam, history, and the medical decision-making described in the above note were completed with the assistance of the mid-level provider. I reviewed and agree with the findings presented. I attest that I had a [id number] encounter with the patient on the same day, and personally performed and documented my assessment and findings in the medical record. Patient denies any complain Anxious to know the results of bone marrow biopsy Patient has been afebrile Blood cultures are negative so far Continue present anabiotic Await bone marrow recovery Problem Qualifiers (1) Hypertension: Qualified Codes: I10 - Essential (primary) hypertension (2) Nausea & vomiting: Qualified Codes: R11.2 - Nausea with vomiting, unspecified Julianna Mcdaniel Jun 15, 2017 09:58 April Fonseca MD Jun 15, 2017 21:28
[2017-06-15] MEDS: MICAFUNGIN INJ 150 MG in SODIUM CHLORIDE 0.9% INJ 100 ML IV SCH (10:04)
[2017-06-15] MEDS: amLODIPine BESYLATE 5 MG TAB PO SCH (10:05)
[2017-06-15] MEDS: LOSARTAN 50 MG TAB PO SCH (10:05)
[2017-06-15] MEDS ORDERED: EUCERIN CREAM 120 GM JAR TOPICAL PRN (11:00)
--- NOTE | 2017-06-15 11:22 | HHI.IDPN ---
Note Infectious Disease Note Patient feels okay. Temp lower. Afebrile. Had night sweats last night. Occasional coughing, white phlegm. No SOB. No chills. Blood cultures are negative. Patient with acute myeloid leukemia, FLT3 positive. Admitted for salvage chemotherapy on 05/24/2017. PAST MEDICAL HISTORY 1. Hypertension. 2. Hypercholesteremia. 3. COPD. 4. Rheumatoid arthritis. 5. Depression. 6. Anxiety disorder. PAST SURGICAL HISTORY 1. Cholecystectomy. 2. Orbwxh-N-Ffmj placement. 3. Complete hysterectomy. 4. Colon resection. ALLERGIES 1. SULFA. 2. CEFEPIME. 3. LATEX. ANTIBIOTICS 1. Imipenem. 2. Vancomycin. 3. Micafungin. 4. Acyclovir. OBJECTIVE: Vital Signs Date Time Temp Pulse Resp B/P (MAP) Pulse Ox O2 Delivery O2 Flow Rate FiO2 06/15/17 10:54 77 06/15/17 10:53 Room Air 06/15/17 10:05 120/93 (102) 06/15/17 10:00 91 06/15/17 09:00 94 06/15/17 08:00 90 06/15/17 07:46 97.8 82 18 102/72 (82) 96 06/15/17 06:00 82 06/15/17 05:00 78 06/15/17 04:39 16 06/15/17 04:04 78 06/15/17 04:01 98.8 88 20 120/73 (89) 97 06/15/17 03:00 73 06/15/17 02:00 74 06/15/17 01:26 88 06/15/17 00:52 Nasal Cannula 2.00 06/15/17 00:36 99.2 90 116/73 (87) 92 06/15/17 00:03 88 06/14/17 23:00 90 06/14/17 22:01 95 06/14/17 21:00 110 06/14/17 20:50 99.4 101 22 155/98 (117) 92 06/14/17 20:50 Nasal Cannula 2.00 06/14/17 20:49 87 Room Air 06/14/17 20:07 76 06/14/17 19:00 82 06/14/17 17:18 88 06/14/17 16:17 84 16 113/87 (96) 98 06/14/17 16:00 97.1 90 18 126/93 (104) 95 06/14/17 15:47 97 16 120/96 (104) 98 06/14/17 15:25 98.3 97 16 131/88 (102) 98 06/14/17 13:05 99.8 101 18 129/72 97 Laboratory Tests Test 06/14/17 06:00 06/15/17 06:20 White Blood Count 0.1 TH/MM3 0.1 TH/MM3 Red Blood Count 3.43 MIL/MM3 3.53 MIL/MM3 Hemoglobin 9.8 GM/DL 10.1 GM/DL Hematocrit 28.9 % 29.8 % Mean Corpuscular Volume 84.4 FL 84.5 FL Mean Corpuscular Hemoglobin 28.7 PG 28.6 PG Mean Corpuscular Hemoglobin Concent 34.0 % 33.8 % Red Cell Distribution Width 14.2 % 13.7 % Platelet Count 26 TH/MM3 37 TH/MM3 Mean Platelet Volume 7.3 FL 7.7 FL CBC Comment AUTO DIFF AUTO DIFF Differential Total Cells Counted 10 10 Neutrophils % (Manual) 20 % 30 % Lymphocytes % 80 % 70 % Neutrophils # (Manual) 0.0 TH/MM3 0.0 TH/MM3 Differential Comment FINAL DIFF MANUAL FINAL DIFF MANUAL Platelet Estimate LOW LOW Platelet Morphology Comment NORMAL NORMAL Ovalocytes 1+ Laboratory Tests Test 06/14/17 06:00 06/15/17 06:20 Blood Urea Nitrogen 6 MG/DL 7 MG/DL Creatinine 0.48 MG/DL 0.49 MG/DL Random Glucose 111 MG/DL 102 MG/DL Total Protein 7.2 GM/DL 7.3 GM/DL Albumin 2.8 GM/DL 2.8 GM/DL Calcium Level 9.1 MG/DL 9.6 MG/DL Alkaline Phosphatase 92 U/L 95 U/L Aspartate Amino Transf (AST/SGOT) 12 U/L 9 U/L Alanine Aminotransferase (ALT/SGPT) 13 U/L 12 U/L Total Bilirubin 0.8 MG/DL 0.7 MG/DL Sodium Level 136 MEQ/L 136 MEQ/L Potassium Level 3.5 MEQ/L 4.0 MEQ/L Chloride Level 100 MEQ/L 100 MEQ/L Carbon Dioxide Level 28.2 MEQ/L 29.4 MEQ/L Anion Gap 8 MEQ/L 7 MEQ/L Estimat Glomerular Filtration Rate 132 ML/MIN 129 ML/MIN IMAGING: Chest X-Ray 06/06/17 0000 Signed Impressions: Service Date/Time: Tuesday, June 06, 2017 09:26 - CONCLUSION: Concern for pleural fluid bilaterally, left greater than right. Recommend repeat exam with upright PA and lateral views when clinically able. Jess Jay MD Head CT 06/04/17 0000 Signed Impressions: Service Date/Time: Sunday, June 04, 2017 16:02 - CONCLUSION: Normal examination for a patient of this age. No significant change has occurred. Alcides Longoria MD Chest X-Ray 05/31/17 0441 Signed Impressions: Service Date/Time: Wednesday, May 31, 2017 05:09 - CONCLUSION: The lungs are clear. Troy Clarke MD Chest CT 05/31/17 0000 Signed Impressions: Service Date/Time: Wednesday, May 31, 2017 17:30 - CONCLUSION: 1. No focal consolidation or effusion to suggest infection. No adenopathy. [id number] in superior vena cava. Jacinto Tello MD Abdomen/Pelvis CT 05/31/17 0000 Signed Impressions: Service Date/Time: Wednesday, May 31, 2017 17:30 - CONCLUSION: 1. Diffuse hepatic fatty infiltration. 2. Similarly, diffuse fatty infiltration/atrophy of the pancreas. 3. 7.6 cm cyst laterally in the left renal cortex. 4. No acute intraperitoneal or pelvic process to explain current clinical symptoms. No significant change from prior. Cristo Hughes MD PHYSICAL EXAMINATION GENERAL: No acute distress. HEENT: Head atraumatic. Extraocular movements grossly intact. Pupils reactive to light. No icterus. No erythema. Moist mucosa. No thrush. NECK: Supple without adenopathy or swelling. LUNGS: Clear breath sounds. CHEST: Xyjqm-L-hxny site without signs of infection. HEART: Regular S1 and S2 without murmurs, rubs or gallops. ABDOMEN: Bowel sounds present. Soft, obese, nontender. EXTREMITIES: No clubbing, cyanosis or edema. SKIN: No rash. NEUROLOGIC: Non focal. PSYCHIATRIC: Calm and cooperative. IMPRESSION 1. Bacteremia. Klebsiella. Treated 2. Febrile neutropenia/pancytopenia. Recurring fever. Temp lower last 24 hours. Blood cultures has no growth. CXR without signs of pneumonia. 3. Acute myeloid leukemia. Receiving Rydapt. 4. ? sinusitis. Previous pain at the left face resolved. The Rydapt also has side effects which could explain some of the symptoms. RECOMMENDATIONS 1. Continue Imipenem. 2. Continue vancomycin. 3. Continue Micafungin. 4. Continue Acyclovir. 5. Follow blood counts. Hopefully will start recovering. 6. Monitor blood cultures. 7. Monitor temps. 8. Monitor clinical status. Jim Grande MD Jun 15, 2017 11:22
[2017-06-15] MEDS: guaiFENesin/DEXTROMETHORPHAN 200 MG/20 MG/10 ML CUP PO PRN (17:06)
[2017-06-15] MEDS: MELATONIN 5 MG TAB PO PRN (21:48)
[2017-06-16] VITALS (14 sets, daily range): BP systolic 101–136; BP diastolic 56–94; PULSE 76–103; RESP 15–18; TEMP 98.4–99.6; O2SAT 93–98
[2017-06-16] MEDS: LORazepam 2 MG/ML VIAL IV PUSH PRN ×2 (00:04→04:28)
[2017-06-16] MEDS: VANCOMYCIN 1,000 MG/NS 250 ML IV SCH ×4 (00:05→12:51)
[2017-06-16] MEDS: ACETAMINOPHEN 325 MG TAB PO PRN (03:38)
[2017-06-16] MEDS: IMIPENEM/CILASTATIN INJ 500 MG in SODIUM CHLORIDE 0.9% INJ 100 ML IV SCH ×4 (03:39→20:41)
[2017-06-16] MEDS: ACYCLOVIR 200 MG CAP PO SCH ×3 (04:27→20:34)
[2017-06-16] MEDS: ONDANSETRON HCL 4 MG/2 ML VIAL IV PUSH SCH ×3 (04:28→20:35)
[2017-06-16 05:32] LABS: HEMATOCRIT 24.4 % (35.0-46.0); HEMOGLOBIN 8.4 GM/DL (11.6-15.3); MEAN CELL VOLUME 83.9 FL (80.0-100.0); MEAN CORPUSCULAR HEMOGLOBIN 28.7 PG (27.0-34.0); MEAN CORPUSCULAR HGB CONC 34.2 % (32.0-36.0); MEAN PLATELET VOLUME 8.3 FL (7.0-11.0); PLATELET COUNT 21 TH/MM3 (150-450); RED BLOOD COUNT 2.91 MIL/MM3 (4.00-5.30); RED CELL DISTRIBUTION WIDTH 13.7 % (11.6-17.2); WHITE BLOOD COUNT 0.1 TH/MM3 (4.0-11.0)
[2017-06-16 08:37] LABS: LYMPHOCYTES 60 % (9-44); MONOCYTES 20 % (0-8); POLYS (SEG NEUTROPHILS) 20 % (16-70)
[2017-06-16] MEDS: HYDROcodone 5 MG/HOMATROPINE 1.5 MG SYRUP 5 ML CUP PO SCH ×2 (09:00→20:36)
[2017-06-16] MEDS: NYSTAT/DIPHENHY/LIDO MOUTHWASH (Adult) 120ML SWISH-SWAL SCH ×4 (09:00→20:41)
[2017-06-16] MEDS: DOCUSATE SODIUM 100 MG CAP PO SCH (09:00)
[2017-06-16] MEDS: CARVEDILOL 6.25 MG TAB PO SCH (09:12)
[2017-06-16] MEDS: amLODIPine BESYLATE 5 MG TAB PO SCH (09:12)
[2017-06-16] MEDS: LOSARTAN 50 MG TAB PO SCH (09:12)
[2017-06-16] MEDS: POTASSIUM CHLORIDE 10 MEQ CONTROLLED RELEASE TAB PO SCH ×2 (09:12→20:34)
[2017-06-16] MEDS: HYDROCHLOROTHIAZIDE 25 MG TAB PO SCH (09:12)
--- NOTE | 2017-06-16 11:11 | PD.ONC.PN ---
Subjective Subjective Remarks Afebrile overnight. Patient sad after being told she is not in remission this AM. Wanted her telemetry removed this AM, tired of having it on. No nausea at present. Objective Data Date Time Temp Pulse Resp B/P (MAP) Pulse Ox O2 Delivery O2 Flow Rate FiO2 06/16/17 09:41 94 Room Air 06/16/17 09:09 99.6 103 18 135/94 (108) 94 06/16/17 09:00 102 06/16/17 08:00 96 06/16/17 07:00 86 06/16/17 06:00 86 06/16/17 05:00 88 06/16/17 04:00 98.7 88 17 131/91 (104) 93 06/16/17 04:00 89 06/16/17 03:00 78 06/16/17 02:00 80 06/16/17 01:00 76 06/16/17 00:00 77 06/16/17 00:00 98.4 100 18 136/94 (108) 94 06/15/17 23:00 80 06/15/17 22:00 88 06/15/17 21:00 84 06/15/17 20:00 104 06/15/17 20:00 98.4 80 18 124/87 (99) 98 06/15/17 20:00 Room Air 06/15/17 19:00 112 06/15/17 17:58 101 06/15/17 17:00 100 06/15/17 16:00 99 06/15/17 15:18 98.5 96 18 116/81 (93) 95 06/15/17 14:00 100 06/15/17 13:00 96 06/15/17 12:01 86 06/15/17 11:54 98.1 98 18 106/75 (85) 98 06/16/17 06/16/17 06/16/17 07:00 15:00 23:00 Output Total 800 ml Balance -800 ml Result Diagram: 06/16/17 0430 06/15/17 0620 Laboratory Results Laboratory Tests Test 06/16/17 04:30 White Blood Count 0.1 TH/MM3 Red Blood Count 2.91 MIL/MM3 Hemoglobin 8.4 GM/DL Hematocrit 24.4 % Mean Corpuscular Volume 83.9 FL Mean Corpuscular Hemoglobin 28.7 PG Mean Corpuscular Hemoglobin Concent 34.2 % Red Cell Distribution Width 13.7 % Platelet Count 21 TH/MM3 Mean Platelet Volume 8.3 FL CBC Comment AUTO DIFF Differential Total Cells Counted 10 Neutrophils % (Manual) 20 % Lymphocytes % 60 % Monocytes % 20 % Neutrophils # (Manual) 0.0 TH/MM3 Differential Comment FINAL DIFF MANUAL Platelet Estimate LOW Platelet Morphology Comment NORMAL Administered Medications Medications (Trade) Dose Ordered Sig/Zeynep Route PRN Reason Start Time Stop Time Status Last Admin Dose Admin Amlodipine Besylate (Norvasc) 5 mg DAILY PO 05/24/17 09:00 06/16/17 09:12 Losartan Potassium (Cozaar) 100 mg DAILY PO 05/24/17 09:00 06/16/17 09:12 Melatonin (Melatonin) 5 mg HS PRN PO insomnia 05/24/17 08:30 06/15/17 21:48 Hydrochlorothiazide (Hydrodiuril) 25 mg DAILY PO 05/24/17 09:00 06/16/17 09:12 Acetaminophen (Tylenol) 650 mg Q4H PRN PO fever>100.4 or premedication 05/24/17 08:45 06/16/17 03:38 Oxycodone HCl (Roxicodone) 5 mg Q4H PRN PO pain>5 05/24/17 12:15 06/03/17 20:41 Multi-Ingredient Mouthwash/Gargle (Magic Mouthwash Adult Liq) 5 ml QID SWISH-SWAL 05/24/17 13:00 06/15/17 20:16 Docusate Sodium (Colace) 100 mg DAILY PO 05/26/17 11:00 06/05/17 09:10 Magnesium Hydroxide (Milk Of Magnesia Liq) 30 ml DAILY PRN PO MILD - MODERATE CONSTIPATION 05/26/17 11:00 05/26/17 11:22 Sodium Chloride (NS Flush) 5 ml UNSCH PRN IV FLUSH SEE PROTOCOL TABLE 05/28/17 14:00 06/11/17 09:07 Heparin Sodium (Porcine) (Heparin Central Flush) 250 units UNSCH PRN IV FLUSH SEE PROTOCOL TABLE 05/28/17 14:00 06/15/17 06:14 Heparin Sodium (Porcine) (Heparin Central Flush) 500 units UNSCH IV FLUSH 05/28/17 14:00 06/14/17 05:57 Lidocaine HCl (Xylocaine 2% Viscous) 15 ml Q4H PRN SWISH-SPIT mouth pain 06/03/17 15:00 06/06/17 09:29 Acyclovir (Zovirax) 400 mg Q8HR PO 06/03/17 15:15 06/16/17 04:27 Carvedilol (Coreg) 6.25 mg DAILY PO 06/05/17 09:00 06/16/17 09:12 Diphenhydramine HCl (Benadryl) 25 mg Q4H PRN PO premedication for blood produc 06/04/17 16:00 06/14/17 12:15 Prochlorperazine Edisylate (Compazine Inj) 10 mg Q8H PRN IV PUSH nausea 06/05/17 10:00 06/13/17 20:29 Oxymetazoline HCl (Afrin 0.05% Diaz [place]) 2 spray Q12H PRN NASAL NASAL CONGESTION 06/05/17 11:00 06/05/17 14:01 Potassium Chloride (KCl) 20 meq Q12HR PO 06/08/17 09:00 06/16/17 09:12 Micafungin Sodium 150 mg/Sodium Chloride 100 ml @ 100 mls/hr Q24H IV 06/08/17 11:00 06/15/17 10:04 Vancomycin HCl 1000 mg/Sodium Chloride 250 ml @ 250 mls/hr Q12H IV 06/08/17 13:00 06/16/17 00:05 Imipenem/ Cilastatin Sodium 500 mg/Sodium Chloride 100 ml @ 200 mls/hr Q6H IV 06/08/17 21:00 06/16/17 09:12 Guaifenesin/ Dextromethorphan (Robitussin Dm 200-20 Mg/10 ml Liq) 10 ml Q6H PRN PO COUGH 06/08/17 23:45 06/15/17 17:06 Hydrocodone Bit/ Homatropine Methylb (Hycodan Liq) 5 ml BID PO 06/09/17 09:00 06/15/17 20:11 Ondansetron HCl (Zofran Inj) 4 mg Q8HR IV PUSH 06/11/17 14:00 06/16/17 04:28 Lorazepam (Ativan Inj) 1 mg Q4H PRN IV PUSH ANXIETY 06/14/17 11:15 06/16/17 04:28 Multi-Ingredient Ointment (Eucerin Cream) 1 applic Q6H PRN TOPICAL itching 06/15/17 11:00 06/15/17 13:54 Objective Remarks GENERAL: Middle aged female,upright on side of bed. appears sad, but in nad. SKIN: Warm and dry. +alopecia HEAD: Normocephalic. EYES: No injection or drainage. MOUTH: a few small oral sores NECK: Supple, trachea midline. CARDIOVASCULAR: Regular rate and rhythm RESPIRATORY: Breath sounds equal bilaterally. No accessory muscle use. GASTROINTESTINAL: Abdomen soft, non-tender, nondistended. EXTREMITIES: No cyanosis NEUROLOGICAL: no focal deficit. Assessment/Plan Problem List: (1) Neutropenic fever ICD Codes: D70.9 - Neutropenia, unspecified; R50.81 - Fever presenting with conditions classified elsewhere Status: Acute Plan: --On Vanco + Imipenem + Diflucan + Acyclovir. --BC, 05/31 + Klebsiella pneumoniae --most recent blood cultures negative. CT chest/abdomen pelvis show no nidus for infection. 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 tolerated D1 05/25: D2. monitor CBC, bilirubin. 05/26: D3. Tolerating chemotherapy. Add on daily stool softener with prn milk of magnesia for constipation. Monitor CBC. 05/27: D4. Continue chemotherapy. Transfuse 1 unit irradiated packed red blood cells for hemoglobin of 7.5 as her counts are trending down. Monitor CBC, CMP. .: D5. tolerating chemo. no transfusion needed at present. 05/29: D6. chemo complete yesterday. give 2 units pRBC today 05/30. D7. no blood transfusion. monitor. 05/31. D8. +fever. start Vanco/Azactam. obtain BC. obtain CT. 06/01: D9. continue Vanco/Azactam. resume Coreg. 06/03: D11: continue antibiotics. supportive care 06/07: D15: feeling a bit improved. continue antibiotics. 1 unit pRBC 06/08: D16: continue antibiotics. 1 unit pRBC, 1 unit platelets. repeat BC 06/09: D 17 No Tx today. Await BM recovery. Repeat BM bx on saturday 06/10: D 18: 1 unit platelets. continue antibiotics. 06/11: D19: add zofran for nausea. give 2 units pRBC await BM Recovery. 06/12: D20: continue supportive care and antibiotics. no transfusion today. 06/13: D21: 1 unit platelets today. continue antibiotics. 06/14 D 22 1 units plat tx for the bm bx today by IR. Baum for anxiety 06/15: D23. no transfusion. await BMB 06/16: D24: preliminary BMB results indicate patient has minimal residual disease. will plan to d/c Wednesday, give patient a week off, then readmit for reinduction. (3) Hypertension ICD Codes: I10 - Essential (primary) hypertension Status: Chronic Plan: --on home medications. -- Stable (4) Stomatitis ICD Codes: K12.1 - Other forms of stomatitis Plan: --d/t chemotherapy --on magic mouthwash. (5) Cough ICD Codes: R05 - Cough Plan: continue Duonebs, cough suppressants (6) Nausea & vomiting ICD Codes: R11.2 - Nausea with vomiting, unspecified Plan: --likely d/t Rydapt or other medications --on PRN Compazine + Zofran. Assessment 57y/o female admitted for salvage chemotherapy for relapse of acute myeloid leukemia, FLT3 positive. Attending Statement The exam, history, and the medical decision-making described in the above note were completed with the assistance of the mid-level provider. I reviewed and agree with the findings presented. I attest that I had a [id number] encounter with the patient on the same day, and personally performed and documented my assessment and findings in the medical record. Feels weak, no more fevers Nausea better. Flow cyto = 6 % Blasts c/w minimal residual disease. Discuss following options 1) Supportive care with hospice 2) Reinduce with chemo now 3) D/C home for 1 week and readmit for reinduction chemo. Pt will think about options and will lets us know. Problem Qualifiers (1) Hypertension: Qualified Codes: I10 - Essential (primary) hypertension (2) Nausea & vomiting: Qualified Codes: R11.2 - Nausea with vomiting, unspecified Julianna Mcdaniel Jun 16, 2017 11:11 April Fonseca MD Jun 16, 2017 17:09
[2017-06-16] MEDS: MICAFUNGIN INJ 150 MG in SODIUM CHLORIDE 0.9% INJ 100 ML IV SCH (11:14)
--- NOTE | 2017-06-16 16:05 | HHI.IDPN ---
Note Infectious Disease Note Patient feels okay. Distraught over bone marrow report. Temp lower. Afebrile. No complaints. No SOB. No chills. Blood cultures are negative. Patient with acute myeloid leukemia, FLT3 positive. Admitted for salvage chemotherapy on 05/24/2017. PAST MEDICAL HISTORY 1. Hypertension. 2. Hypercholesteremia. 3. COPD. 4. Rheumatoid arthritis. 5. Depression. 6. Anxiety disorder. PAST SURGICAL HISTORY 1. Cholecystectomy. 2. Ddyxum-P-Mpqp placement. 3. Complete hysterectomy. 4. Colon resection. ALLERGIES 1. SULFA. 2. CEFEPIME. 3. LATEX. ANTIBIOTICS 1. Imipenem. 2. Vancomycin. 3. Micafungin. 4. Acyclovir. OBJECTIVE: Vital Signs Date Time Temp Pulse Resp B/P (MAP) Pulse Ox O2 Delivery O2 Flow Rate FiO2 06/16/17 15:23 97 Room Air 06/16/17 15:15 99.4 98 18 109/77 (88) 97 06/16/17 11:18 94 Room Air 06/16/17 11:10 99.6 82 18 101/56 (71) 94 06/16/17 09:41 94 Room Air 06/16/17 09:09 99.6 103 18 135/94 (108) 94 06/16/17 09:00 102 06/16/17 08:00 96 06/16/17 07:00 86 06/16/17 06:00 86 06/16/17 05:00 88 06/16/17 04:00 98.7 88 17 131/91 (104) 93 06/16/17 04:00 89 06/16/17 03:00 78 06/16/17 02:00 80 06/16/17 01:00 76 06/16/17 00:00 77 06/16/17 00:00 98.4 100 18 136/94 (108) 94 06/15/17 23:00 80 06/15/17 22:00 88 06/15/17 21:00 84 06/15/17 20:00 104 06/15/17 20:00 98.4 80 18 124/87 (99) 98 06/15/17 20:00 Room Air 06/15/17 19:00 112 06/15/17 17:58 101 06/15/17 17:00 100 Laboratory Tests Test 06/15/17 06:20 06/16/17 04:30 White Blood Count 0.1 TH/MM3 0.1 TH/MM3 Red Blood Count 3.53 MIL/MM3 2.91 MIL/MM3 Hemoglobin 10.1 GM/DL 8.4 GM/DL Hematocrit 29.8 % 24.4 % Mean Corpuscular Volume 84.5 FL 83.9 FL Mean Corpuscular Hemoglobin 28.6 PG 28.7 PG Mean Corpuscular Hemoglobin Concent 33.8 % 34.2 % Red Cell Distribution Width 13.7 % 13.7 % Platelet Count 37 TH/MM3 21 TH/MM3 Mean Platelet Volume 7.7 FL 8.3 FL CBC Comment AUTO DIFF AUTO DIFF Differential Total Cells Counted 10 10 Neutrophils % (Manual) 30 % 20 % Lymphocytes % 70 % 60 % Neutrophils # (Manual) 0.0 TH/MM3 0.0 TH/MM3 Differential Comment FINAL DIFF MANUAL FINAL DIFF MANUAL Platelet Estimate LOW LOW Platelet Morphology Comment NORMAL NORMAL Ovalocytes 1+ Monocytes % 20 % Laboratory Tests Test 06/15/17 06:20 Blood Urea Nitrogen 7 MG/DL Creatinine 0.49 MG/DL Random Glucose 102 MG/DL Total Protein 7.3 GM/DL Albumin 2.8 GM/DL Calcium Level 9.6 MG/DL Alkaline Phosphatase 95 U/L Aspartate Amino Transf (AST/SGOT) 9 U/L Alanine Aminotransferase (ALT/SGPT) 12 U/L Total Bilirubin 0.7 MG/DL Sodium Level 136 MEQ/L Potassium Level 4.0 MEQ/L Chloride Level 100 MEQ/L Carbon Dioxide Level 29.4 MEQ/L Anion Gap 7 MEQ/L Estimat Glomerular Filtration Rate 129 ML/MIN IMAGING: Chest X-Ray 06/06/17 0000 Signed Impressions: Service Date/Time: Tuesday, June 06, 2017 09:26 - CONCLUSION: Concern for pleural fluid bilaterally, left greater than right. Recommend repeat exam with upright PA and lateral views when clinically able. Jess Jay MD Head CT 06/04/17 0000 Signed Impressions: Service Date/Time: Sunday, June 04, 2017 16:02 - CONCLUSION: Normal examination for a patient of this age. No significant change has occurred. Alcides Longoria MD Chest X-Ray 05/31/17 0441 Signed Impressions: Service Date/Time: Wednesday, May 31, 2017 05:09 - CONCLUSION: The lungs are clear. Troy Clarke MD Chest CT 05/31/17 0000 Signed Impressions: Service Date/Time: Wednesday, May 31, 2017 17:30 - CONCLUSION: 1. No focal consolidation or effusion to suggest infection. No adenopathy. [id number] in superior vena cava. Jacinto Tello MD Abdomen/Pelvis CT 05/31/17 0000 Signed Impressions: Service Date/Time: Wednesday, May 31, 2017 17:30 - CONCLUSION: 1. Diffuse hepatic fatty infiltration. 2. Similarly, diffuse fatty infiltration/atrophy of the pancreas. 3. 7.6 cm cyst laterally in the left renal cortex. 4. No acute intraperitoneal or pelvic process to explain current clinical symptoms. No significant change from prior. Cristo uHghes MD PHYSICAL EXAMINATION GENERAL: No acute distress. HEENT: Head atraumatic. Extraocular movements grossly intact. Pupils reactive to light. No icterus. No erythema. Moist mucosa. No thrush. NECK: Supple. No adenopathy or swelling. LUNGS: Clear breath sounds. CHEST: [id number]-[id number] site without signs of infection. HEART: Regular S1 and S2 without murmurs, rubs or gallops. ABDOMEN: Bowel sounds present. Soft, obese, nontender. EXTREMITIES: No clubbing, cyanosis or edema. SKIN: No rash. NEUROLOGIC: Non focal. PSYCHIATRIC: Calm and cooperative. IMPRESSION 1. Bacteremia. Klebsiella. Treated 2. Febrile neutropenia/pancytopenia. Recurring fever. Temp lower. Blood cultures has no growth. CXR without signs of pneumonia. 3. Acute myeloid leukemia. Receiving Rydapt. 4. ? sinusitis. Previous pain at the left face resolved. The Rydapt also has side effects which could explain some of the symptoms. RECOMMENDATIONS 1. Continue Imipenem. 2. Continue vancomycin. 3. Continue Micafungin. 4. Continue Acyclovir. 5. Follow blood counts. 6. Monitor blood cultures. 7. Monitor temps. 8. Monitor clinical status. Continue to monitor closely for signs of infection. Jim Grande MD Jun 16, 2017 16:05
[2017-06-16] MEDS: PROCHLORPERAZINE INJ 10 MG/2 ML VIAL IV PUSH PRN (18:10)
[2017-06-16] MEDS: MELATONIN 5 MG TAB PO PRN (20:34)
[2017-06-17] VITALS: BP 131/89; PULSE 96; RESP 16; TEMP 98.5; O2SAT 93
[2017-06-17] MEDS: VANCOMYCIN 1,000 MG/NS 250 ML IV SCH ×4 (01:10→12:43)
[2017-06-17] MEDS: LORazepam 2 MG/ML VIAL IV PUSH PRN ×2 (01:14→21:43)
[2017-06-17] MEDS: IMIPENEM/CILASTATIN INJ 500 MG in SODIUM CHLORIDE 0.9% INJ 100 ML IV SCH ×4 (02:17→21:04)
[2017-06-17 04:00] VITALS: BP 135/83; PULSE 90; RESP 16; TEMP 99.5; O2SAT 94
[2017-06-17] MEDS: guaiFENesin/DEXTROMETHORPHAN 200 MG/20 MG/10 ML CUP PO PRN (05:40)
[2017-06-17] MEDS: ONDANSETRON HCL 4 MG/2 ML VIAL IV PUSH SCH ×3 (05:40→20:57)
[2017-06-17] MEDS: ACYCLOVIR 200 MG CAP PO SCH ×3 (05:40→20:58)
[2017-06-17 07:04] LABS: HEMATOCRIT 27.8 % (35.0-46.0); HEMOGLOBIN 9.5 GM/DL (11.6-15.3); MEAN CELL VOLUME 84.2 FL (80.0-100.0); MEAN CORPUSCULAR HEMOGLOBIN 28.7 PG (27.0-34.0); MEAN CORPUSCULAR HGB CONC 34.1 % (32.0-36.0); MEAN PLATELET VOLUME 7.6 FL (7.0-11.0); PLATELET COUNT 21 TH/MM3 (150-450); WHITE BLOOD COUNT 0.2 TH/MM3 (4.0-11.0)
[2017-06-17 07:26] LABS: CREATININE 0.53 MG/DL (0.50-1.00)
[2017-06-17] MEDS: NYSTAT/DIPHENHY/LIDO MOUTHWASH (Adult) 120ML SWISH-SWAL SCH ×4 (08:20→21:00)
[2017-06-17 08:23] VITALS: BP 114/83; PULSE 113; RESP 18; TEMP 100.4; O2SAT 93
[2017-06-17] MEDS: LOSARTAN 50 MG TAB PO SCH (08:38)
[2017-06-17] MEDS: amLODIPine BESYLATE 5 MG TAB PO SCH (08:38)
[2017-06-17] MEDS: CARVEDILOL 6.25 MG TAB PO SCH (08:38)
[2017-06-17] MEDS: POTASSIUM CHLORIDE 10 MEQ CONTROLLED RELEASE TAB PO SCH ×2 (08:39→20:57)
[2017-06-17] MEDS: HYDROCHLOROTHIAZIDE 25 MG TAB PO SCH (08:39)
[2017-06-17] MEDS: DOCUSATE SODIUM 100 MG CAP PO SCH (08:42)
[2017-06-17] MEDS: HYDROcodone 5 MG/HOMATROPINE 1.5 MG SYRUP 5 ML CUP PO SCH ×2 (08:42→20:57)
--- NOTE | 2017-06-17 09:22 | PD.ONC.PN ---
Subjective Subjective Remarks Tmax 100.4 this AM. Patient feeling fatigued today. She states she has a cough in the morning which improves by the afternoon. No other complaints. still wants to take a week off when possible. Objective Data Date Time Temp Pulse Resp B/P (MAP) Pulse Ox O2 Delivery O2 Flow Rate FiO2 06/17/17 08:30 94 Room Air 06/17/17 08:23 100.4 113 18 114/83 (93) 93 06/17/17 04:00 99.5 90 16 135/83 (100) 94 06/17/17 00:00 98.5 96 16 131/89 (103) 93 06/16/17 20:00 2.00 06/16/17 20:00 98.4 80 15 115/72 (86) 98 06/16/17 15:23 97 Room Air 06/16/17 15:15 99.4 98 18 109/77 (88) 97 06/16/17 11:18 94 Room Air 06/16/17 11:10 99.6 82 18 101/56 (71) 94 06/16/17 09:41 94 Room Air 06/17/17 06/17/17 06/17/17 06:59 14:59 22:59 Intake Total 800 ml Output Total 950 ml 200 ml Balance -150 ml -200 ml Result Diagram: 06/17/17 0540 06/17/17 0540 Laboratory Results Laboratory Tests Test 06/17/17 05:40 White Blood Count 0.2 TH/MM3 Red Blood Count 3.30 MIL/MM3 Hemoglobin 9.5 GM/DL Hematocrit 27.8 % Mean Corpuscular Volume 84.2 FL Mean Corpuscular Hemoglobin 28.7 PG Mean Corpuscular Hemoglobin Concent 34.1 % Red Cell Distribution Width 14.0 % Platelet Count 21 TH/MM3 Mean Platelet Volume 7.6 FL CBC Comment AUTO DIFF Creatinine 0.53 MG/DL Estimat Glomerular Filtration Rate 118 ML/MIN Administered Medications Medications (Trade) Dose Ordered Sig/Zeynep Route PRN Reason Start Time Stop Time Status Last Admin Dose Admin Amlodipine Besylate (Norvasc) 5 mg DAILY PO 05/24/17 09:00 06/17/17 08:38 Losartan Potassium (Cozaar) 100 mg DAILY PO 05/24/17 09:00 06/17/17 08:38 Melatonin (Melatonin) 5 mg HS PRN PO insomnia 1/15/18 08:30 06/16/17 20:34 Hydrochlorothiazide (Hydrodiuril) 25 mg DAILY PO 05/24/17 09:00 06/17/17 08:39 Acetaminophen (Tylenol) 650 mg Q4H PRN PO fever>100.4 or premedication 05/24/17 08:45 06/16/17 03:38 Oxycodone HCl (Roxicodone) 5 mg Q4H PRN PO pain>5 05/24/17 12:15 06/03/17 20:41 Multi-Ingredient Mouthwash/Gargle (Magic Mouthwash Adult Liq) 5 ml QID SWISH-SWAL 05/24/17 13:00 06/15/17 20:16 Docusate Sodium (Colace) 100 mg DAILY PO 05/26/17 11:00 06/05/17 09:10 Magnesium Hydroxide (Milk Of Magnesia Liq) 30 ml DAILY PRN PO MILD - MODERATE CONSTIPATION 05/26/17 11:00 05/26/17 11:22 Sodium Chloride (NS Flush) 5 ml UNSCH PRN IV FLUSH SEE PROTOCOL TABLE 05/28/17 14:00 06/11/17 09:07 Heparin Sodium (Porcine) (Heparin Central Flush) 250 units UNSCH PRN IV FLUSH SEE PROTOCOL TABLE 05/28/17 14:00 06/15/17 06:14 Heparin Sodium (Porcine) (Heparin Central Flush) 500 units UNSCH IV FLUSH 05/28/17 14:00 06/14/17 05:57 Lidocaine HCl (Xylocaine 2% Viscous) 15 ml Q4H PRN SWISH-SPIT mouth pain 06/03/17 15:00 06/06/17 09:29 Acyclovir (Zovirax) 400 mg Q8HR PO 06/03/17 15:15 06/17/17 05:40 Carvedilol (Coreg) 6.25 mg DAILY PO 06/05/17 09:00 06/17/17 08:38 Diphenhydramine HCl (Benadryl) 25 mg Q4H PRN PO premedication for blood produc 06/04/17 16:00 06/14/17 12:15 Prochlorperazine Edisylate (Compazine Inj) 10 mg Q8H PRN IV PUSH nausea 06/05/17 10:00 06/16/17 18:10 Oxymetazoline HCl (Afrin 0.05% Diaz [place]) 2 spray Q12H PRN NASAL NASAL CONGESTION 06/05/17 11:00 06/05/17 14:01 Potassium Chloride (KCl) 20 meq Q12HR PO 06/08/17 09:00 06/17/17 08:39 Micafungin Sodium 150 mg/Sodium Chloride 100 ml @ 100 mls/hr Q24H IV 06/08/17 11:00 06/16/17 11:14 Vancomycin HCl 1000 mg/Sodium Chloride 250 ml @ 250 mls/hr Q12H IV 06/08/17 13:00 06/17/17 01:10 Imipenem/ Cilastatin Sodium 500 mg/Sodium Chloride 100 ml @ 200 mls/hr Q6H IV 06/08/17 21:00 06/17/17 08:38 Guaifenesin/ Dextromethorphan (Robitussin Dm 200-20 Mg/10 ml Liq) 10 ml Q6H PRN PO COUGH 06/08/17 23:45 06/17/17 05:40 Hydrocodone Bit/ Homatropine Methylb (Hycodan Liq) 5 ml BID PO 06/09/17 09:00 06/16/17 20:36 Ondansetron HCl (Zofran Inj) 4 mg Q8HR IV PUSH 06/11/17 14:00 06/17/17 05:40 Lorazepam (Ativan Inj) 1 mg Q4H PRN IV PUSH ANXIETY 06/14/17 11:15 06/17/17 01:14 Multi-Ingredient Ointment (Eucerin Cream) 1 applic Q6H PRN TOPICAL itching 06/15/17 11:00 06/15/17 13:54 Objective Remarks GENERAL: Middle aged female, lying in bed resting. SKIN: Warm and dry. HEAD: Normocephalic. EYES: No injection or drainage. NECK: Supple, trachea midline. CARDIOVASCULAR: Regular rate and rhythm RESPIRATORY: Breath sounds equal bilaterally. No accessory muscle use. GASTROINTESTINAL: Abdomen soft, non-tender, nondistended. EXTREMITIES: No cyanosis NEUROLOGICAL: No obvious focal deficit. Awake, alert, and oriented x3. Assessment/Plan Problem List: (1) Neutropenic fever ICD Codes: D70.9 - Neutropenia, unspecified; R50.81 - Fever presenting with conditions classified elsewhere Status: Acute Plan: --On Vanco + Imipenem + Diflucan + Acyclovir. --BC, 05/31 + Klebsiella pneumoniae --most recent blood cultures negative. CT chest/abdomen pelvis show no nidus for infection. 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 tolerated D1 05/25: D2. monitor CBC, bilirubin. 05/26: D3. Tolerating chemotherapy. Add on daily stool softener with prn milk of magnesia for constipation. Monitor CBC. 05/27: D4. Continue chemotherapy. Transfuse 1 unit irradiated packed red blood cells for hemoglobin of 7.5 as her counts are trending down. Monitor CBC, CMP. .: D5. tolerating chemo. no transfusion needed at present. 05/29: D6. chemo complete yesterday. give 2 units pRBC today 05/30. D7. no blood transfusion. monitor. 05/31. D8. +fever. start Vanco/Azactam. obtain BC. obtain CT. 06/01: D9. continue Vanco/Azactam. resume Coreg. 06/03: D11: continue antibiotics. supportive care 06/07: D15: feeling a bit improved. continue antibiotics. 1 unit pRBC 06/08: D16: continue antibiotics. 1 unit pRBC, 1 unit platelets. repeat BC 06/09: D 17 No Tx today. Await BM recovery. Repeat BM bx on saturday 06/10: D 18: 1 unit platelets. continue antibiotics. 06/11: D19: add zofran for nausea. give 2 units pRBC await BM Recovery. 06/12: D20: continue supportive care and antibiotics. no transfusion today. 06/13: D21: 1 unit platelets today. continue antibiotics. 06/14 D 22 1 units plat tx for the bm bx today by IR. Baum for anxiety 06/15: D23. no transfusion. await BMB 06/16: D24: preliminary BMB results indicate patient has minimal residual disease. will plan to d/c Wednesday, give patient a week off, then readmit for reinduction. 2/8: D25: waiting for counts to recover. patient spiked fever this AM, may need to wait 48 hours before discharge. continue antibiotics. (3) Hypertension ICD Codes: I10 - Essential (primary) hypertension Status: Chronic Plan: --on home medications. -- Stable (4) Stomatitis ICD Codes: K12.1 - Other forms of stomatitis Plan: --d/t chemotherapy --on magic mouthwash. (5) Cough ICD Codes: R05 - Cough Plan: continue Duonebs, cough suppressants (6) Nausea & vomiting ICD Codes: R11.2 - Nausea with vomiting, unspecified Plan: --likely d/t Rydapt or other medications --on PRN Compazine + Zofran. Assessment 57y/o female admitted for salvage chemotherapy for relapse of acute myeloid leukemia, FLT3 positive. Attending Statement The exam, history, and the medical decision-making described in the above note were completed with the assistance of the mid-level provider. I reviewed and agree with the findings presented. I attest that I had a [id number] encounter with the patient on the same day, and personally performed and documented my assessment and findings in the medical record. No new c/o Low grade temp. continue present A/B No Tx today. Home tomorrow. Problem Qualifiers (1) Hypertension: Qualified Codes: I10 - Essential (primary) hypertension (2) Nausea & vomiting: Qualified Codes: R11.2 - Nausea with vomiting, unspecified Julianna Mcdaniel Jun 17, 2017 09:21 April Fonseca MD Jun 17, 2017 18:31
[2017-06-17 09:58] LABS: LYMPHOCYTES 100 % (9-44)
--- NOTE | 2017-06-17 10:52 | RADRPT ---
EXAM DATE/TIME: 06/17/2017 10:01 [facility] COMPARISON: CHEST SINGLE AP, May 31, 2017, 5:09. CT THORAX W CONTRAST, May 31, 2017, 17:30. CHEST PA & LAT, June 08, 2017, 11:10. INDICATIONS : Productive cough, fever, and short of breath since this morning. MEDICAL HISTORY : Cardiovascular disease. Hypertension. Gastroesophageal reflux disease.Lupus, RA,Leukenia, on chemo SURGICAL HISTORY : Cholecystectomy. Tubal ligation.Hysterectomy. ENCOUNTER: Subsequent ACUITY: 1 week PAIN SCORE: 0/10 LOCATION: Bilateral chest FINDINGS: Patchy bilateral parenchymal opacities appear grossly unchanged. Cardiac contours are stable. Port ca theter is present in stable position. CONCLUSION: Patchy bilateral infiltrates are grossly unchanged Milad Becerril MD on June 17, 2017 at 10:48 Board Certified Radiologist. This report was verified electronically.
[2017-06-17 11:18] VITALS: BP 115/79; PULSE 94; RESP 18; TEMP 99.8; O2SAT 96
[2017-06-17] MEDS: MICAFUNGIN INJ 150 MG in SODIUM CHLORIDE 0.9% INJ 100 ML IV SCH (11:20)
--- NOTE | 2017-06-17 15:10 | HHI.IDPN ---
Note Infectious Disease Note Patient feels okay. Feels well after eating. Low grade fever this am. No complaints. No SOB. No chills. Patient with acute myeloid leukemia, FLT3 positive. Admitted for salvage chemotherapy on 05/24/2017. PAST MEDICAL HISTORY 1. Hypertension. 2. Hypercholesteremia. 3. COPD. 4. Rheumatoid arthritis. 5. Depression. 6. Anxiety disorder. PAST SURGICAL HISTORY 1. Cholecystectomy. 2. Nglsei-K-Iqqr placement. 3. Complete hysterectomy. 4. Colon resection. ALLERGIES 1. SULFA. 2. CEFEPIME. 3. LATEX. ANTIBIOTICS 1. Imipenem. 2. Vancomycin. 3. Micafungin. 4. Acyclovir. OBJECTIVE: Vital Signs Date Time Temp Pulse Resp B/P (MAP) Pulse Ox O2 Delivery O2 Flow Rate FiO2 06/17/17 11:18 99.8 94 18 115/79 (91) 96 06/17/17 08:30 94 Room Air 06/17/17 08:23 100.4 113 18 114/83 (93) 93 06/17/17 04:00 99.5 90 16 135/83 (100) 94 06/17/17 00:00 98.5 96 16 131/89 (103) 93 06/16/17 20:00 2.00 06/16/17 20:00 98.4 80 15 115/72 (86) 98 06/16/17 15:23 97 Room Air 06/16/17 15:15 99.4 98 18 109/77 (88) 97 Laboratory Tests Test 06/16/17 04:30 06/17/17 05:40 White Blood Count 0.1 TH/MM3 0.2 TH/MM3 Red Blood Count 2.91 MIL/MM3 3.30 MIL/MM3 Hemoglobin 8.4 GM/DL 9.5 GM/DL Hematocrit 24.4 % 27.8 % Mean Corpuscular Volume 83.9 FL 84.2 FL Mean Corpuscular Hemoglobin 28.7 PG 28.7 PG Mean Corpuscular Hemoglobin Concent 34.2 % 34.1 % Red Cell Distribution Width 13.7 % 14.0 % Platelet Count 21 TH/MM3 21 TH/MM3 Mean Platelet Volume 8.3 FL 7.6 FL CBC Comment AUTO DIFF AUTO DIFF Differential Total Cells Counted 10 10 Neutrophils % (Manual) 20 % Lymphocytes % 60 % 100 % Monocytes % 20 % Neutrophils # (Manual) 0.0 TH/MM3 0.0 TH/MM3 Differential Comment FINAL DIFF MANUAL FINAL DIFF MANUAL Platelet Estimate LOW RARE Platelet Morphology Comment NORMAL NORMAL Laboratory Tests Test 06/17/17 05:40 Creatinine 0.53 MG/DL Estimat Glomerular Filtration Rate 118 ML/MIN IMAGING: Chest X-Ray 06/06/17 0000 Signed Impressions: Service Date/Time: Tuesday, June 06, 2017 09:26 - CONCLUSION: Concern for pleural fluid bilaterally, left greater than right. Recommend repeat exam with upright PA and lateral views when clinically able. Jess Jay MD Head CT 06/04/17 0000 Signed Impressions: Service Date/Time: Sunday, June 04, 2017 16:02 - CONCLUSION: Normal examination for a patient of this age. No significant change has occurred. Alcides Longoria MD Chest X-Ray 05/31/17 0441 Signed Impressions: Service Date/Time: Wednesday, May 31, 2017 05:09 - CONCLUSION: The lungs are clear. Troy Clarke MD Chest CT 05/31/17 0000 Signed Impressions: Service Date/Time: Wednesday, May 31, 2017 17:30 - CONCLUSION: 1. No focal consolidation or effusion to suggest infection. No adenopathy. Gukwbe-s-Hsio in superior vena cava. Jacinto Tello MD Abdomen/Pelvis CT 05/31/17 0000 Signed Impressions: Service Date/Time: Wednesday, May 31, 2017 17:30 - CONCLUSION: 1. Diffuse hepatic fatty infiltration. 2. Similarly, diffuse fatty infiltration/atrophy of the pancreas. 3. 7.6 cm cyst laterally in the left renal cortex. 4. No acute intraperitoneal or pelvic process to explain current clinical symptoms. No significant change from prior. Cristo Hughes MD PHYSICAL EXAMINATION GENERAL: No acute distress. HEENT: Head atraumatic. Extraocular movements grossly intact. Pupils reactive to light. No icterus. No erythema. Moist mucosa. No thrush. NECK: Supple. No adenopathy or swelling. LUNGS: Breath sounds slight diminished at the r. base. CHEST: Mdoml-Z-ygso site without signs of infection. HEART: Regular S1 and S2 without murmurs, rubs or gallops. ABDOMEN: Bowel sounds present. Soft, obese, nontender. EXTREMITIES: No clubbing, cyanosis or edema. SKIN: No rash. NEUROLOGIC: Non focal. PSYCHIATRIC: Calm and cooperative. IMPRESSION 1. Bacteremia. Klebsiella. Treated 2. Febrile neutropenia/pancytopenia. Now low grade temp. Blood cultures has no growth. CXR without signs of pneumonia. 3. Acute myeloid leukemia. Receiving Rydapt. 4. ? sinusitis. Previous pain at the left face resolved. The Rydapt also has side effects which could explain some of the symptoms. Plans for discharge to home for a week before giving next round of chemo. RECOMMENDATIONS 1. Continue Imipenem. 2. Continue vancomycin. 3. Continue Micafungin. 4. Continue Acyclovir. 5. Follow blood counts. 6. Monitor temps. 7. Monitor clinical status. If stable and no high temps can discharge home with Doxycycline 100mg bid and Levaquin 750mg qd for the interim prior to the next chemotherapy. Jim Grande MD Jun 17, 2017 15:10
[2017-06-17 15:25] VITALS: BP 117/80; PULSE 94; RESP 18; TEMP 98.5; O2SAT 96
[2017-06-17 20:00] VITALS: BP 129/89; PULSE 100; RESP 16; TEMP 99; O2SAT 95
[2017-06-17] MEDS: MELATONIN 5 MG TAB PO PRN (20:57)
[2017-06-18] VITALS: BP 120/89; PULSE 99; RESP 16; TEMP 98.1; O2SAT 97
[2017-06-18] MEDS: guaiFENesin/DEXTROMETHORPHAN 200 MG/20 MG/10 ML CUP PO PRN ×2 (00:11→05:48)
[2017-06-18] MEDS: VANCOMYCIN 1,000 MG/NS 250 ML IV SCH ×2 (00:12)
[2017-06-18] MEDS: IMIPENEM/CILASTATIN INJ 500 MG in SODIUM CHLORIDE 0.9% INJ 100 ML IV SCH (03:00)
[2017-06-18 04:00] VITALS: BP 120/82; PULSE 99; RESP 16; TEMP 99.3; O2SAT 94
[2017-06-18] MEDS: ONDANSETRON HCL 4 MG/2 ML VIAL IV PUSH SCH (05:48)
[2017-06-18] MEDS: ACYCLOVIR 200 MG CAP PO SCH (05:49)
[2017-06-18 06:43] LABS: HEMATOCRIT 25.4 % (35.0-46.0); HEMOGLOBIN 8.8 GM/DL (11.6-15.3); MEAN CORPUSCULAR HEMOGLOBIN 29.1 PG (27.0-34.0); MEAN CORPUSCULAR HGB CONC 34.7 % (32.0-36.0); MEAN PLATELET VOLUME 7.8 FL (7.0-11.0); RED BLOOD COUNT 3.03 MIL/MM3 (4.00-5.30); RED CELL DISTRIBUTION WIDTH 13.6 % (11.6-17.2); WHITE BLOOD COUNT 0.1 TH/MM3 (4.0-11.0)
[2017-06-18 06:50] LABS: PLATELET COUNT 13 TH/MM3 (150-450)
[2017-06-18] MEDS ORDERED: LEVA750T9 PO (07:20)
[2017-06-18] MEDS ORDERED: DOXY100C PO (07:20)
--- NOTE | 2017-06-18 07:21 | HHI.DCPOC ---
Discharge Care Plan Diagnosis: (1) Neutropenic fever (2) Pancytopenia (3) Acute myeloid leukemia Goals to Promote Your Health * To prevent worsening of your condition and complications * To maintain your health at the optimal level Directions to Meet Your Goals Take your medications as prescribed Follow your dietary instruction Follow activity as directed Keep your appointments as scheduled Take your immunizations and boosters as scheduled If your symptoms worsen call your PCP, if no PCP go to Urgent Care Center or Emergency Room Smoking is Dangerous to Your Health. Avoid second hand smoke Call the 24-hour hour crisis hotline for domestic abuse at Julianna Mcdaniel Jun 18, 2017 07:21
--- NOTE | 2017-06-18 07:22 | HHI.FF ---
Face to Face Verification Diagnosis: (1) Generalized weakness (2) AML (acute myeloid leukemia) in relapse (3) Pancytopenia Home Health Nursing Order: Nursing assessment with vital signs I have seen patient Ashley Arroyo on 06/18/17. My clinical findings support the need for the requested home health care services because: Ltd mobility - disease progression I certify that my clinical findings support that this patient is homebound because: Need for psychosocial assistance Julianna Mcdaniel Jun 18, 2017 07:22
--- NOTE | 2017-06-18 07:24 | HHI.DS ---
Discharge Summary Admission Date May 24, 2017 at 06:30 Discharge Date: Jun 18, 2017 Admitting Diagnosis AML, admitted for salvage chemotherapy Brief History Ms. Arroyo is a 57 y/o female diagnosed with AML in August of 2016. She was treated with Zuleyka-C/Daunorubicin, which failed to achieve a remission. She was then treated with CLAG + Rydapt and achieved complete remission. She was referred to [facility] for bone marrow transplant. During her workup for transplant, she had a bone marrow which showed she had relapsed. The patient received two cycles of Dacogen and repeat bone marrow biopsy showed persistent leukemia. The patient was then recommended reinduction chemotherapy with CLAG- M and was admitted to [place]. CBC/BMP: 06/18/17 0550 06/17/17 0540 Significant Findings Laboratory Tests Test 06/16/17 04:30 06/17/17 05:40 06/18/17 05:50 White Blood Count 0.1 TH/MM3 (4.0-11.0) 0.2 TH/MM3 (4.0-11.0) 0.1 TH/MM3 (4.0-11.0) Red Blood Count 2.91 MIL/MM3 (4.00-5.30) 3.30 MIL/MM3 (4.00-5.30) 3.03 MIL/MM3 (4.00-5.30) Hemoglobin 8.4 GM/DL (11.6-15.3) 9.5 GM/DL (11.6-15.3) 8.8 GM/DL (11.6-15.3) Hematocrit 24.4 % (35.0-46.0) 27.8 % (35.0-46.0) 25.4 % (35.0-46.0) Platelet Count 21 TH/MM3 (150-450) 21 TH/MM3 (150-450) 13 TH/MM3 (150-450) Lymphocytes % 60 % (9-44) 100 % (9-44) Monocytes % 20 % (0-8) Neutrophils # (Manual) 0.0 TH/MM3 (1.8-7.7) 0.0 TH/MM3 (1.8-7.7) Platelet Estimate LOW (NORMAL) RARE (NORMAL) Imaging Last Impressions Chest X-Ray 06/17/17 0000 Signed Impressions: Service Date/Time: June 10:01 - CONCLUSION: Patchy bilateral infiltrates are grossly unchanged Milad Becerril MD Bone Biopsy CT 06/14/17 0000 Signed Impressions: Service Date/Time: Wednesday, June 14, 2017 14:28 - CONCLUSION: 1. Uncomplicated CT guided bone marrow aspirate. 2. Uncomplicated CT guided bone marrow biopsy. Malcolm Coker MD Head CT 06/04/17 0000 Signed Impressions: Service Date/Time: Sunday, June 04, 2017 16:02 - CONCLUSION: Normal examination for a patient of this age. No significant change has occurred. Alcides Longoria MD Chest CT 05/31/17 0000 Signed Impressions: Service Date/Time: Wednesday, May 31, 2017 17:30 - CONCLUSION: 1. No focal consolidation or effusion to suggest infection. No adenopathy. Xbiaat-u-Zhve in superior vena cava. Jacitno Tello MD Abdomen/Pelvis CT 05/31/17 0000 Signed Impressions: Service Date/Time: Wednesday, May 31, 2017 17:30 - CONCLUSION: 1. Diffuse hepatic fatty infiltration. 2. Similarly, diffuse fatty infiltration/atrophy of the pancreas. 3. 7.6 cm cyst laterally in the left renal cortex. 4. No acute intraperitoneal or pelvic process to explain current clinical symptoms. No significant change from prior. Cristo Hughes MD PE at Discharge please see physical exam from progress note on date of discharge. Hospital Course 05/24:--Admitted for salvage chemotherapy with CLAG-M. tolerated D1 16: D2. monitor CBC, bilirubin. 05/26: D3. Tolerating chemotherapy. Add on daily stool softener with prn milk of magnesia for constipation. Monitor CBC. 05/27: D4. Continue chemotherapy. Transfuse 1 unit irradiated packed red blood cells for hemoglobin of 7.5 as her counts are trending down. Monitor CBC, CMP. 1.: D5. tolerating chemo. no transfusion needed at present. 05/29: D6. chemo complete yesterday. give 2 units pRBC today 05/30. D7. no blood transfusion. monitor. 05/31. D8. +fever. start Vanco/Azactam. obtain BC. obtain CT. 06/01: D9. continue Vanco/Azactam. resume Coreg. 06/03: D11: continue antibiotics. supportive care 1/29: D15: feeling a bit improved. continue antibiotics. 1 unit pRBC 06/08: D16: continue antibiotics. 1 unit pRBC, 1 unit platelets. repeat BC 06/09: D 17 No Tx today. Await BM recovery. Repeat BM bx on saturday 06/10: D 18: 1 unit platelets. continue antibiotics. 06/11: D19: add zofran for nausea. give 2 units pRBC await BM Recovery. 06/12: D20: continue supportive care and antibiotics. no transfusion today. 06/13: D21: 1 unit platelets today. continue antibiotics. 06/14 D 22 1 units plat tx for the bm bx today by IRBrittney Baum for anxiety 06/15: D23. no transfusion. await BMB 06/16: D24: preliminary BMB results indicate patient has minimal residual disease. will plan to d/c Wednesday, give patient a week off, then readmit for reinduction. 06/17: D25: waiting for counts to recover. low grade fever of 100.4 but no spiked temps. 06/18: D26. discharge home on antibiotics recommended by infectious disease: Doxycycline + Levaquin. Pt Condition on Discharge: Fair Discharge Disposition: Discharge Home Discharge Instructions DIET: Follow Instructions for: As Tolerated, No Restrictions Activities you can perform: Regular-No Restrictions Julianna Mcdaniel Jun 18, 2017 07:23
[2017-06-18] MEDS ORDERED: SODIUM CHLOR 0.9% 250 ML INJ 250 ML IV ONE (07:45)
[2017-06-18] MEDS ORDERED: ZOFR4TAB3 SL (08:00)
[2017-06-18] MEDS: NYSTAT/DIPHENHY/LIDO MOUTHWASH (Adult) 120ML SWISH-SWAL SCH (09:00)
[2017-06-18] MEDS ORDERED: LEVOFLOXACIN 750 MG TAB PO SCH (09:00)
[2017-06-18] MEDS ORDERED: DOXYCYCLINE HYCLATE 100 MG CAP PO SCH (09:00)
[2017-06-18 09:18] LABS: LYMPHOCYTES 40 % (9-44); NEUTROPHIL # MANUAL DIFF 0.1 TH/MM3 (1.8-7.7); POLYS (SEG NEUTROPHILS) 60 % (16-70)
[2017-06-18] MEDS: POTASSIUM CHLORIDE 10 MEQ CONTROLLED RELEASE TAB PO SCH (09:39)
[2017-06-18] MEDS: CARVEDILOL 6.25 MG TAB PO SCH (09:39)
[2017-06-18] MEDS: DOCUSATE SODIUM 100 MG CAP PO SCH (09:39)
[2017-06-18] MEDS: HYDROCHLOROTHIAZIDE 25 MG TAB PO SCH (09:39)
[2017-06-18] MEDS: amLODIPine BESYLATE 5 MG TAB PO SCH (09:39)
[2017-06-18] MEDS: LOSARTAN 50 MG TAB PO SCH (09:39)
[2017-06-18 09:40] VITALS: BP 130/93; PULSE 105; RESP 18; TEMP 99.9; O2SAT 95
[2017-06-18] MEDS: HYDROcodone 5 MG/HOMATROPINE 1.5 MG SYRUP 5 ML CUP PO SCH (09:54)
--- NOTE | 2017-06-18 09:57 | PD.ONC.PN ---
Subjective Subjective Remarks Tmax 99.8 overnight. Patient resting in bed in nad. Excited that she is going home today. Feeling better. No overnight events. Objective Data Date Time Temp Pulse Resp B/P (MAP) Pulse Ox O2 Delivery O2 Flow Rate FiO2 06/18/17 09:40 99.9 105 18 130/93 (105) 95 06/18/17 04:00 99.3 99 16 120/82 (95) 94 06/18/17 00:00 98.1 99 16 120/89 (99) 97 06/17/17 20:00 99.0 100 16 129/89 (102) 95 06/17/17 20:00 Nasal Cannula 2.00 06/17/17 15:25 98.5 94 18 117/80 (92) 96 06/17/17 11:18 99.8 94 18 115/79 (91) 96 06/18/17 06/18/17 06/18/17 07:00 15:00 23:00 Intake Total 600 ml Output Total 950 ml Balance -350 ml Result Diagram: 06/18/17 0550 06/17/17 0540 Laboratory Results Laboratory Tests Test 06/18/17 05:50 White Blood Count 0.1 TH/MM3 Red Blood Count 3.03 MIL/MM3 Hemoglobin 8.8 GM/DL Hematocrit 25.4 % Mean Corpuscular Volume 84.0 FL Mean Corpuscular Hemoglobin 29.1 PG Mean Corpuscular Hemoglobin Concent 34.7 % Red Cell Distribution Width 13.6 % Platelet Count 13 TH/MM3 Mean Platelet Volume 7.8 FL CBC Comment AUTO DIFF Differential Total Cells Counted 10 Neutrophils % (Manual) 60 % Lymphocytes % 40 % Neutrophils # (Manual) 0.1 TH/MM3 Differential Comment FINAL DIFF MANUAL Platelet Estimate RARE Platelet Morphology Comment NORMAL Administered Medications Medications (Trade) Dose Ordered Sig/Zeynep Route PRN Reason Start Time Stop Time Status Last Admin Dose Admin Amlodipine Besylate (Norvasc) 5 mg DAILY PO 05/24/17 09:00 06/18/17 09:39 Losartan Potassium (Cozaar) 100 mg DAILY PO 05/24/17 09:00 06/18/17 09:39 Melatonin (Melatonin) 5 mg HS PRN PO insomnia 05/24/17 08:30 06/17/17 20:57 Hydrochlorothiazide (Hydrodiuril) 25 mg DAILY PO 05/24/17 09:00 06/18/17 09:39 Acetaminophen (Tylenol) 650 mg Q4H PRN PO fever>100.4 or premedication 05/24/17 08:45 06/16/17 03:38 Oxycodone HCl (Roxicodone) 5 mg Q4H PRN PO pain>5 05/24/17 12:15 06/03/17 20:41 Multi-Ingredient Mouthwash/Gargle (Magic Mouthwash Adult Liq) 5 ml QID SWISH-SWAL 05/24/17 13:00 06/15/17 20:16 Docusate Sodium (Colace) 100 mg DAILY PO 05/26/17 11:00 06/18/17 09:39 Magnesium Hydroxide (Milk Of Magnesia Liq) 30 ml DAILY PRN PO MILD - MODERATE CONSTIPATION 05/26/17 11:00 05/26/17 11:22 Sodium Chloride (NS Flush) 5 ml UNSCH PRN IV FLUSH SEE PROTOCOL TABLE 05/28/17 14:00 06/11/17 09:07 Heparin Sodium (Porcine) (Heparin Central Flush) 250 units UNSCH PRN IV FLUSH SEE PROTOCOL TABLE 05/28/17 14:00 06/15/17 06:14 Heparin Sodium (Porcine) (Heparin Central Flush) 500 units UNSCH IV FLUSH 05/28/17 14:00 06/14/17 05:57 Lidocaine HCl (Xylocaine 2% Viscous) 15 ml Q4H PRN SWISH-SPIT mouth pain 06/03/17 15:00 06/06/17 09:29 Carvedilol (Coreg) 6.25 mg DAILY PO 06/05/17 09:00 06/18/17 09:39 Diphenhydramine HCl (Benadryl) 25 mg Q4H PRN PO premedication for blood produc 06/04/17 16:00 06/14/17 12:15 Prochlorperazine Edisylate (Compazine Inj) 10 mg Q8H PRN IV PUSH nausea 06/05/17 10:00 06/16/17 18:10 Oxymetazoline HCl (Afrin 0.05% Diaz Roscoe) 2 spray Q12H PRN NASAL NASAL CONGESTION 06/05/17 11:00 06/05/17 14:01 Potassium Chloride (KCl) 20 meq Q12HR PO 06/08/17 09:00 06/18/17 09:39 Guaifenesin/ Dextromethorphan (Robitussin Dm 200-20 Mg/10 ml Liq) 10 ml Q6H PRN PO COUGH 06/08/17 23:45 06/18/17 05:48 Hydrocodone Bit/ Homatropine Methylb (Hycodan Liq) 5 ml BID PO 06/09/17 09:00 06/17/17 20:57 Ondansetron HCl (Zofran Inj) 4 mg Q8HR IV PUSH 06/11/17 14:00 06/18/17 05:48 Lorazepam (Ativan Inj) 1 mg Q4H PRN IV PUSH ANXIETY 06/14/17 11:15 06/17/17 21:43 Multi-Ingredient Ointment (Eucerin Cream) 1 applic Q6H PRN TOPICAL itching 06/15/17 11:00 06/15/17 13:54 Levofloxacin (Levaquin) 750 mg DAILY PO 06/18/17 09:00 06/18/17 09:39 Objective Remarks GENERAL: Middle aged female, upright in bed in NAD. SKIN: Warm and dry. HEAD: Normocephalic. EYES: No injection or drainage. NECK: Supple, trachea midline. CARDIOVASCULAR: Regular rate and rhythm RESPIRATORY: Breath sounds equal bilaterally. No accessory muscle use. GASTROINTESTINAL: Abdomen soft, non-tender, nondistended. EXTREMITIES: No cyanosis NEUROLOGICAL: awake and alert, normal speech. moving all extremities. Assessment/Plan Problem List: (1) Neutropenic fever ICD Codes: D70.9 - Neutropenia, unspecified; R50.81 - Fever presenting with conditions classified elsewhere Status: Acute Plan: --On Levaquin + Doxycycline. --BC, 05/31 + Klebsiella pneumoniae --most recent blood cultures negative. CT chest/abdomen pelvis show no nidus for infection. 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 tolerated D1 16: D2. monitor CBC, bilirubin. 05/26: D3. Tolerating chemotherapy. Add on daily stool softener with prn milk of magnesia for constipation. Monitor CBC. 05/27: D4. Continue chemotherapy. Transfuse 1 unit irradiated packed red blood cells for hemoglobin of 7.5 as her counts are trending down. Monitor CBC, CMP. 05.28: D5. tolerating chemo. no transfusion needed at present. 05/29: D6. chemo complete yesterday. give 2 units pRBC today 05/30. D7. no blood transfusion. monitor. 05/31. D8. +fever. start Vanco/Azactam. obtain BC. obtain CT. 06/01: D9. continue Vanco/Azactam. resume Coreg. 06/03: D11: continue antibiotics. supportive care 06/07: D15: feeling a bit improved. continue antibiotics. 1 unit pRBC 06/08: D16: continue antibiotics. 1 unit pRBC, 1 unit platelets. repeat BC 06/09: D 17 No Tx today. Await BM recovery. Repeat BM bx on saturday 06/10: D 18: 1 unit platelets. continue antibiotics. 06/11: D19: add zofran for nausea. give 2 units pRBC await BM Recovery. 06/12: D20: continue supportive care and antibiotics. no transfusion today. 06/13: D21: 1 unit platelets today. continue antibiotics. 06/14 D 22 1 units plat tx for the bm bx today by IR. Baum for anxiety 06/15: D23. no transfusion. await BMB 06/16: D24: preliminary BMB results indicate patient has minimal residual disease. will plan to d/c Wednesday, give patient a week off, then readmit for reinduction. 06/17: D25: waiting for counts to recover. patient had elevated temp of 100.4, but no spiked temp. will monitor. 06/18: D26. discharge home. (3) Hypertension ICD Codes: I10 - Essential (primary) hypertension Status: Chronic Plan: --on home medications. -- Stable (4) Cough ICD Codes: R05 - Cough Plan: continue Duonebs, cough suppressants Assessment 57y/o female admitted for salvage chemotherapy for relapse of acute myeloid leukemia, FLT3 positive. Attending Statement The exam, history, and the medical decision-making described in the above note were completed with the assistance of the mid-level provider. I reviewed and agree with the findings presented. I attest that I had a puqa-kj-gdin encounter with the patient on the same day, and personally performed and documented my assessment and findings in the medical record. ecited to go home. wants to wait for atleast 1 wk before another round of chemo. Repeat BM bx next week wed. ok to d/c home. Problem Qualifiers (1) Hypertension: Qualified Codes: I10 - Essential (primary) hypertension Julianna Mcdaniel Jun 18, 2017 09:57 April Fonseca MD Jun 18, 2017 15:03
[2017-06-18] MEDS: ACETAMINOPHEN 325 MG TAB PO PRN (10:44)
[2017-06-18] MEDS: diphenhydrAMINE HCL 25 MG CAP PO PRN (10:44)
[2017-06-18 11:40] VITALS: BP 96/63; PULSE 88; RESP 18; TEMP 98.4; O2SAT 98
[2017-06-18 12:28] VITALS: BP 114/83; PULSE 80; TEMP 98.2; O2SAT 98
[2017-06-18 12:31] VITALS: BP 114/63; PULSE 80; RESP 18; TEMP 98.2; O2SAT 98
== END 2017-06-18 12:56 | disposition home health service (06) | DRG 838 ==
LOC: HCIN 06:30 → OBSVTOIN 06:30
PROVIDERS: ADMIT Internal Medicine Hematology & Oncology; ATTEND Internal Medicine Hematology & Oncology
PROC: XW043B3 Introduction of Cytarabine and Daunorubicin Liposome Antineoplastic into Central Vein, Percutaneous Approach, New Technology Group 3 (ICD-10-PCS; principal; 2017-05-24)
PROC: 30233N1 Transfusion of Nonautologous Red Blood Cells into Peripheral Vein, Percutaneous Approach (ICD-10-PCS; 2017-05-27)
PROC: 30233R1 Transfusion of Nonautologous Platelets into Peripheral Vein, Percutaneous Approach (ICD-10-PCS; 2017-06-03)
PROC: 07DR3ZX Extraction of Iliac Bone Marrow, Percutaneous Approach, Diagnostic (ICD-10-PCS; 2017-06-14)
DX: Z51.11 Encounter for antineoplastic chemotherapy (principal); C92.02 Acute myeloblastic leukemia, in relapse; D61.818 Other pancytopenia; R78.81 Bacteremia; D70.9 Neutropenia, unspecified; K86.89 Other specified diseases of pancreas; M06.9 Rheumatoid arthritis, unspecified; J44.9 Chronic obstructive pulmonary disease, unspecified; E78.00 Pure hypercholesterolemia, unspecified; I10 Essential (primary) hypertension; F32.9 Major depressive disorder, single episode, unspecified; F41.9 Anxiety disorder, unspecified; I49.9 Cardiac arrhythmia, unspecified; R50.81 Fever presenting with conditions classified elsewhere; K12.1 Other forms of stomatitis; R11.2 Nausea with vomiting, unspecified; K59.00 Constipation, unspecified; R05 Cough; R51 Headache; R19.7 Diarrhea, unspecified; R04.0 Epistaxis; R09.02 Hypoxemia; J02.9 Acute pharyngitis, unspecified; B96.1 Klebsiella pneumoniae [K. pneumoniae] as the cause of diseases classified elsewhere; Z90.710 Acquired absence of both cervix and uterus; Z87.891 Personal history of nicotine dependence
CPT/HCPCS: 36430; 38222; 70450; 71045; 71046; 71260; 74177; 77012; 80048; 80053; 80076; 80202; 81001; 81003; 82247; 82248; 82565; 83010; 83615; 83735; 85007; 85027; 85097; 85610; 85730; 86644; 86850; 86900; 86901; 86920; 87040; 87077; 87086; 87186; 87205; 87493; 87497; 88184; 88185; 88237; 88264; 88280; 88305; 88311; 88313; 93005; 94618; 94640; 94664; 99152; 99153; C1830; J0131; J0743; J0780; J1100; J1200; J1442; J1450; J1626; J1642; J2060; J2175; J2248; J2405; J2550; J3370; J3480; J7030; J7040; J7050; J9065; J9100; J9293; P9037; P9040; Q9967

== ENCOUNTER 2017-06-25 08:49 | Day surgery (SDC) | payer OTHER ==
[~2017-06-25] VITALS: Ht 154.9 cm; Wt 80.5 kg
[~2017-06-25 08:49] MED LIST changes: -LACTCHW3 CHEW; +LEVA750T9 PO; +MELA5 PO; -PRED2.5T PO; -PROC5INJ PO; +ZOFR4TAB3 SL; -[UNRECOGNIZED DRUG - OTHER] PO
[2017-06-25 08:59] VITALS: BP 137/90; PULSE 112; RESP 20; TEMP 99; O2SAT 99
[2017-06-25] MEDS: SODIUM CHLOR 0.9% 1000 ML IV SCH ×2 (10:00→11:07)
[2017-06-25 10:17] LABS: HEMATOCRIT 23.9 % (35.0-46.0); HEMOGLOBIN 8.2 GM/DL (11.6-15.3); MEAN CELL VOLUME 81.8 FL (80.0-100.0); MEAN CORPUSCULAR HEMOGLOBIN 28.1 PG (27.0-34.0); MEAN CORPUSCULAR HGB CONC 34.4 % (32.0-36.0); MEAN PLATELET VOLUME 7.8 FL (7.0-11.0); RED BLOOD COUNT 2.93 MIL/MM3 (4.00-5.30); RED CELL DISTRIBUTION WIDTH 13.6 % (11.6-17.2); WHITE BLOOD COUNT 0.2 TH/MM3 (4.0-11.0)
[2017-06-25 10:23] LABS: PLATELET COUNT 16 TH/MM3 (150-450)
[2017-06-25 11:02] LABS: ATYPICAL LYMPHOCYTES 7 % (0-0); BANDS 7 % (0-6); LYMPHOCYTES 73 % (9-44); MONOCYTES 7 % (0-8)
[2017-06-25] MEDS ORDERED: LIDOCAINE HCL 1% 20 ML VIAL ONE (11:14)
[2017-06-25] MEDS ORDERED: MIDAZOLAM HCL 2 MG/2 ML VIAL ONE (11:36)
--- NOTE | 2017-06-25 12:13 | PD.RAD ---
Post CT Procedure Prog Note Pre Procedure Diagnosis: (1) Acute myeloid leukemia Post Procedure Diagnosis: (1) Acute myeloid leukemia Procedure Date: Jun 25, 2017 Supervising Radiologist: Jim Pink Anesthesia: Conscious Sedation Plan of Activity Patient to Unit: ROPU Patient Condition: Good See PACS Report for procedural detail/treatment Jim Pink MD Jun 25, 2017 12:13
[2017-06-25 12:30] VITALS: BP 124/79; PULSE 106; RESP 20; TEMP 97.8; O2SAT 97
[2017-06-25 12:45] VITALS: BP 127/87; PULSE 101; RESP 20; O2SAT 94
[2017-06-25 13:15] VITALS: BP 127/87; PULSE 104; RESP 20; O2SAT 96
--- NOTE | 2017-06-25 13:30 | RADRPT ---
EXAM DATE/TIME: 06/25/2017 11:52 [facility] COMPARISON: CT NEEDLE BIOPSY BONE MARROW, June 14, 2017, 14:28. INDICATIONS : Leukemia. SEDATION TIME: 30 minutes BIOPSY SITE: Left iliac MEDICATION(S): 1.) 4 mg midazolam (Versed) IV 2.) 200 mcg fentanyl (Sublimaze) IV DEVICE(S): 1.) 11 gauge Bone marrow biopsy needle MEDICAL HISTORY : Leukemia. Cervical cancer SURGICAL HISTORY : Hysterectomy. Cholecystectomy. Colon resection ENCOUNTER: Initial ACUITY: 1 day PAIN SCORE: 0/10 LOCATION: Left pelvis A total of one core specimen(s) were obtained and sent to the laboratory for pathologic evaluation. PROCEDURE: 1. CT guided bone marrow biopsy. 2. Conscious sedation with continuous EKG and oximetry monitoring. Prior to the procedure informed consent was obtained. Any appropriate prior imaging studies were rev iewed. Using automated exposure control and adjustment of the mA and/or kV according to patient size , radiation dose was kept as low as reasonably achievable to obtain optimal diagnostic quality images . DICOM format image data is available electronically for review and comparison. The site was prepped in a sterile fashion. Full sterile technique was used, including cap, mask, darren rile gloves and gown and a large sterile sheet. Hand hygiene and 2% chlorhexidine and/or betadine/al cohol prep was utilized per protocol for cutaneous antisepsis. The skin and subcutaneous tissues wer e infiltrated with local anesthetic solution. With CT guidance the previously identified target was localized. Biopsy was performed using the presc ribed needle as above. Following biopsy marrow aspiration was performed with repeat puncture. Adequa te hemostasis was obtained with compression at the puncture site. Follow-up CT scan reveals no hemorrhage. Conscious sedation was performed with the prescribed dosages and duration as above in the presence of an independent trained radiology nurse to assist in the monitoring of the patient. EKG and oximetry remained stable throughout the procedure. The patient tolerated the procedure well and there were no complications. The patient was sent to Radiology Outpatient Unit in stable condition. CONCLUSION: 1. Uncomplicated CT guided bone marrow aspirate. 2. Uncomplicated CT guided bone marrow biopsy. Jim Pink MD on June 25, 2017 at 13:29 Board Certified Radiologist. This report was verified electronically.
[2017-06-25 13:45] VITALS: BP 120/88; PULSE 98; RESP 20; O2SAT 96
[2017-06-25 14:15] VITALS: BP 117/80; PULSE 86; RESP 20; O2SAT 99
[2017-06-25] MEDS ORDERED: SODIUM CHLORIDE 0.9% FLUSH 10 ML FLUSH IV FLUSH PRN (14:30)
== END 2017-06-25 14:25 | disposition home or self-care (01) ==
LOC: HRAD 08:49 → HRIP 08:52 → HRAD 14:25
PROVIDERS: ATTEND Internal Medicine Hematology & Oncology
DX: C92.00 Acute myeloblastic leukemia, not having achieved remission (principal); C53.9 Malignant neoplasm of cervix uteri, unspecified; D61.818 Other pancytopenia
CPT/HCPCS: 38222; 77012; 85007; 85027; 85097; 88184; 88185; 88237; 88264; 88280; 88305; 88311; 88313; 99152; 99153; C1830; J1642; J2250; J3010; J7030; 38221

== ENCOUNTER 2017-06-28 12:59 | Inpatient (IN) | payer OTHER, MEDICAID, MEDICARE ==
[~2017-06-28] VITALS: Ht 154.9 cm; Wt 73.5 kg
[~2017-06-28 12:59] MED LIST changes: -ZOFR4TAB3 SL
[2017-06-28] MEDS ORDERED: FILGRASTIM 300 MCG/ML VIAL SQ SCH (14:00)
[2017-06-28] MEDS ORDERED: diphenhydrAMINE HCL 25 MG CAP PO PRN (14:15)
[2017-06-28] MEDS ORDERED: ACETAMINOPHEN 325 MG TAB PO PRN (14:15)
--- NOTE | 2017-06-28 15:17 | RADRPT ---
EXAM DATE/TIME: 06/28/2017 14:05 [facility] COMPARISON: CHEST PA & LAT, June 08, 2017, 11:10. CHEST SINGLE AP, June 17, 2017, 10:01. INDICATIONS : Shortness of breath. MEDICAL HISTORY : Cardiovascular disease. Hypertension. Gastroesophageal refluxdisease.Lupus, RA,Leukenia, on chemo. SURGICAL HISTORY : Cholecystectomy. Tubal ligation.Hysterectomy. ENCOUNTER: Initial ACUITY: 1 day PAIN SCORE: 0/10 LOCATION: Bilateral chest FINDINGS: A single portable frontal view of the chest shows patchy areas of consolidation within the peripheral lower lobes bilaterally. More pronounced on the left. These are unchanged dating back to June 08, 2017. No effusions. Moderate cardiomegaly. No pulmonary vascular engorgement. Port-A-Cath overlies t he right chest. A mildly scoliotic spine. CONCLUSION: Unchanged patchy areas of consolidation within each lung base. Cardiomegaly. Troy Pacheco Jr., MD on June 28, 2017 at 15:14 Board Certified Radiologist. This report was verified electronically.
[2017-06-28 15:53] LABS: HEMOGLOBIN 7.4 GM/DL (11.6-15.3); MEAN CELL VOLUME 80.9 FL (80.0-100.0); MEAN CORPUSCULAR HEMOGLOBIN 28.5 PG (27.0-34.0); MEAN CORPUSCULAR HGB CONC 35.2 % (32.0-36.0); MEAN PLATELET VOLUME 12.3 FL (7.0-11.0); RED CELL DISTRIBUTION WIDTH 13.1 % (11.6-17.2); WHITE BLOOD COUNT 0.3 TH/MM3 (4.0-11.0)
[2017-06-28 16:00] VITALS: BP 133/81; PULSE 86; RESP 20; TEMP 98.1; O2SAT 98
[2017-06-28 16:11] LABS: BICARBONATE 28.7 MEQ/L (21.0-32.0); CALCIUM 8.9 MG/DL (8.5-10.1); CREATININE 0.49 MG/DL (0.50-1.00)
[2017-06-28 16:19] LABS: PLATELET COUNT 4 TH/MM3 (150-450)
[2017-06-28 17:08] LABS: BANDS 1 % (0-6); METAMYELOCYTES 3 % (0-1); MONOCYTES 6 % (0-8); POLYS (SEG NEUTROPHILS) 9 % (16-70)
[2017-06-28 17:09] LABS: LYMPHOCYTES 81 % (9-44); OVALOCYTES 1+ (NORMAL)
[2017-06-28] MEDS: DEXT 5%-NACL 0.45% 1000 ML INJ 1,000 ML IV SCH (19:02)
[2017-06-28 20:42] VITALS: BP 101/58; PULSE 88; RESP 16; TEMP 99; O2SAT 94
[2017-06-28 21:48] VITALS: BP 109/72; PULSE 101; RESP 16; TEMP 98.8; O2SAT 99
[2017-06-28] MEDS: ALUMINUM/MAGNESIUM/SIMETH 30 ML CUP PO PRN (21:50)
[2017-06-29] VITALS (26 sets, daily range): BP systolic 98–145; BP diastolic 54–87; PULSE 18–94; RESP 16–18; TEMP 97.5–99; O2SAT 95–98
[2017-06-29] MEDS: DEXT 5%-NACL 0.45% 1000 ML INJ 1,000 ML IV SCH ×3 (06:17→21:59)
--- NOTE | 2017-06-29 08:34 | MH ---
cc: MIKAYLA CASTANEDA M.D. 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 HISTORY OF PRESENT ILLNESS This is a 57-year-old female. In August of 2016, she was diagnosed with acute myeloid leukemia. She had a normal chromosome 46XX. Her molecular test showed FLT3 positive and NPM1 negative. She was treated with induction chemotherapy with cytarabine and daunarubicin. However, she did not go into remission. She was then treated with a CLAG chemotherapy with RYDAPT and she went into remission. She then had high-dose Zuleyka-C consolidation chemotherapy in November of 2016. She was referred to [facility] for bone marrow transplant. She was found to have unrelated donor. The patient was ready for the unrelated bone marrow transplant, however, the bone marrow biopsy prior to the transplant in February 2017 showed that she had relapse. The patient then was treated with Dacogen chemotherapy for two cycles with progressive disease. She had 37% blasts in the marrow. The chromosomes again came back normal 46XX. FLT3 was still positive. Subsequently, the patient was treated with CLAG-M chemotherapy about five weeks ago. She had a bone marrow biopsy day 21 which showed minimal residual disease. The marrow blasts were 6%. I have discussed with the patient at that time for best supportive care with Hospice versus another salvage chemotherapy. The patient wanted to try another chemotherapy, but she wanted to go home for one week. The patient was discharged to home ten days ago. She had a repeat bone marrow biopsy last week Wednesday by interventional radiologist. I got the result this morning that she still has residual leukemia and her marrow blast count has gone up from 6% to 17%. I have discussed with the patient again regarding further treatment. My recommendation is best supportive care. However, she is adamant about trying salvage chemotherapy. Therefore, she is now admitted to the hospital to start FLAG-AKASH salvage chemotherapy. The patient has been complaining of depression, anorexia, weakness, fatigue. She denies any bleeding. She denies any fevers. She is also complaining of shortness of breath on minimal exertion. She denies any cough. The rest of the review of systems is negative. PAST MEDICAL HISTORY 1. Rheumatoid arthritis 2. Anxiety disorder 3. COPD 4. Depression 5. Hypercholesterolemia 6. Hypertension 7. Irregular heartbeat PAST SURGICAL HISTORY 1. 2. Cholecystectomy 3. Colon resection 4. Complete hysterectomy 5. Gohkgi-V-Jzvg placement 6. Right foot surgery 7. Colonoscopy ALLERGIES CEFEPIME, ROBAXIN AND SULFA. MEDICATIONS 1. Amlodipine 2. Carvedilol 3. Hydrochlorothiazide 4. Losartan FAMILY HISTORY Mother from stroke. Father from aneurysm. The patient does not have any siblings or any sons. She has two daughters, both are alive and well. SOCIAL HISTORY The patient is . She quit smoking 12 years ago. She used to smoke one pack a day for 30 years. No alcohol history. PHYSICAL EXAM This is a well-developed, well-nourished white female in no apparent distress. VITAL SIGNS: Temperature 98.1, heart rate is 86, blood pressure is 133/81, O2 saturation 98%. HEENT: PERRLA, EOMI, anicteric. No oral lesions noted. NECK: No lymphadenopathy noted. LUNGS: Clear. No wheezing, rhonchi or rales. HEART: Regular rate and rhythm. ABDOMEN: Soft, nontender. No hepatosplenomegaly. EXTREMITIES: No pedal edema. NEUROLOGIC: Awake, alert, oriented times three. SKIN: No significant lesions noted. ASSESSMENT 1. Refractory acute myeloid leukemia, 46 XX normal chromosome but FLT3 positive. 2. Hypertension 3. Depression PLAN I have discussed with the patient regarding the repeat bone marrow biopsy which was done by interventional radiologist last week Wednesday. I received the results today when I called the [facility] who does our flow cytometry. The patient had 6% marrow blasts on day 21 which now has increased to 17%. She has refractory acute myeloid leukemia. My recommendation is best supportive care. However, patient wants to try another salvage chemotherapy. I told her this will be the last ditch effort. I am not sure whether she is going to respond to the salvage chemotherapy given that she has refractory leukemia. However, she is willing to take the risk and toxicity of another salvage chemotherapy. I have reviewed the literature and I have recommended FLAG-AKASH salvage chemotherapy. This consists of G-CSF a day prior and then fludarabine at 30 mg/m2 over 30 minutes daily for five days. Four hours after the fludarabine, she will get Zuleyka-C chemotherapy at 2000 mg/m2 over four hours daily for five days. She will also get idarubicin 10 mg/m2 over 15 mins daily for three days. The patient will be premedicated with Kytril, Decadron and hydration. We will continue her regular medications. After completion of the chemotherapy, we will start her on the RYDAPT 50 mg twice a day from day 8 through 21 and then we will repeat the bone marrow biopsy to assess response to the chemotherapy. I will monitor her CBC daily and transfuse irradiated platelets if the platelet count is less than 15 and if the hemoglobin is less than 7, then she will get packed red cell transfusion. I will order a chest x-ray and also echocardiogram prior to giving her further anthracycline chemotherapy. The risks, benefits and alternates of the salvage chemotherapy were discussed with the patient. She is adamant about having further chemotherapy. This will be the last ditch effort. If this salvage chemotherapy does not put her into remission, then I strongly recommend best supportive care with hospice. Further recommendations will be based on her hospital stay. MD ABEL Mcginnis/MARLENE /9:56 PM /2:18 PM VENKATESH
[2017-06-29] MEDS: predniSONE 5 MG TAB PO SCH (09:05)
[2017-06-29] MEDS: CARVEDILOL 3.125 MG TAB PO SCH (09:06)
[2017-06-29] MEDS: LOSARTAN 50 MG TAB PO SCH (09:06)
[2017-06-29] MEDS: amLODIPine BESYLATE 5 MG TAB PO SCH (09:06)
--- NOTE | 2017-06-29 09:20 | PD.ONC.PN ---
Subjective Subjective Remarks Afebrile overnight. Patient is sad and tired. she doesn't understand why she didn't achieve a remission with her last chemotherapy. she is scared about the possible outcomes of this hospitalization. Objective Data Date Time Temp Pulse Resp B/P (MAP) Pulse Ox O2 Delivery O2 Flow Rate FiO2 06/29/17 04:27 99.0 91 16 109/67 (81) 98 06/29/17 04:00 82 06/29/17 01:23 90 06/29/17 00:16 99.0 75 16 127/68 (87) 97 06/29/17 00:00 73 06/28/17 21:48 98.8 101 16 109/72 (84) 99 06/28/17 20:42 99.0 88 16 101/58 94 06/28/17 16:00 98.1 86 20 133/81 (98) 98 Result Diagram: 06/28/17 1505 06/28/17 1505 Laboratory Results Laboratory Tests Test 06/28/17 15:05 White Blood Count 0.3 TH/MM3 Red Blood Count 2.60 MIL/MM3 Hemoglobin 7.4 GM/DL Hematocrit 21.0 % Mean Corpuscular Volume 80.9 FL Mean Corpuscular Hemoglobin 28.5 PG Mean Corpuscular Hemoglobin Concent 35.2 % Red Cell Distribution Width 13.1 % Platelet Count 4 TH/MM3 Mean Platelet Volume 12.3 FL CBC Comment AUTO DIFF Differential Total Cells Counted 80 Neutrophils % (Manual) 9 % Band Neutrophils % 1 % Lymphocytes % 81 % Monocytes % 6 % Neutrophils # (Manual) 0.0 TH/MM3 Metamyelocytes 3 % Differential Comment FINAL DIFF MANUAL Atypical Lymphocytes % Platelet Estimate RARE Platelet Morphology Comment NORMAL Ovalocytes 1+ Blood Urea Nitrogen 11 MG/DL Creatinine 0.49 MG/DL Random Glucose 96 MG/DL Calcium Level 8.9 MG/DL Sodium Level 139 MEQ/L Potassium Level 3.1 MEQ/L Chloride Level 102 MEQ/L Carbon Dioxide Level 28.7 MEQ/L Anion Gap 8 MEQ/L Estimat Glomerular Filtration Rate 129 ML/MIN Administered Medications Medications (Trade) Dose Ordered Sig/Zeynep Route PRN Reason Start Time Stop Time Status Last Admin Dose Admin Dextrose/Sodium Chloride 1,000 ml @ 100 mls/hr Q10H IV 06/28/17 14:00 06/29/17 06:17 Acetaminophen (Tylenol) 650 mg UNSCH PRN PO PRIOR TO BLOOD PRODUCTS 06/28/17 14:15 06/28/17 18:53 Diphenhydramine HCl (Benadryl) 25 mg UNSCH PRN PO PRIOR TO BLOOD PRODUCTS 06/28/17 14:15 06/28/17 18:53 Al Hydrox/Mg Hydrox/Simethicone (Mag-Al Plus Susp Liq) 15 ml Q6H PRN PO INDIGESTION 06/28/17 20:45 06/28/17 21:50 Objective Remarks GENERAL: Middle aged female, sitting up in bed in nad. SKIN: Warm and dry. HEAD: Normocephalic. EYES: No injection or drainage. NECK: Supple, trachea midline. CARDIOVASCULAR: Regular rate and rhythm RESPIRATORY: Breath sounds equal bilaterally. No accessory muscle use. GASTROINTESTINAL: Abdomen soft, non-tender, nondistended. EXTREMITIES: No cyanosis NEUROLOGICAL: awake and alert, normal speech. moving all extremities. Assessment/Plan Problem List: (1) AML (acute myeloid leukemia) in relapse ICD Codes: C92.02 - Acute myeloblastic leukemia, in relapse Plan: 06/29/17: D2, give 2 units pRBC this AM. start chemotherapy this afternoon. 06/28/17: admission, D1 Assessment 57y/o female admitted for salvage chemotherapy with FLAG-AKASH for refractory acute myeloid leukemia. h/o Rheumatoid arthritis. Anxiety disorder. COPD. Depression. Hypercholesterolemia. Hypertension. Irregular heartbeat Attending Statement The exam, history, and the medical decision-making described in the above note were completed with the assistance of the mid-level provider. I reviewed and agree with the findings presented. I attest that I had a [id number] encounter with the patient on the same day, and personally performed and documented my assessment and findings in the medical record. anxious to start chemo today. C/O weakness No bleeding. PRBC today NO Plat today start FLAG-AKASH today. d/w pt. Julianna Mcdaniel Jun 29, 2017 09:20 April Fonseca MD Jun 29, 2017 22:31
[2017-06-29 09:29] LABS: MEAN CELL VOLUME 80.4 FL (80.0-100.0); MEAN CORPUSCULAR HEMOGLOBIN 28.2 PG (27.0-34.0); MEAN CORPUSCULAR HGB CONC 35.1 % (32.0-36.0); MEAN PLATELET VOLUME 6.6 FL (7.0-11.0); PLATELET COUNT 32 TH/MM3 (150-450); RED BLOOD COUNT 2.32 MIL/MM3 (4.00-5.30); RED CELL DISTRIBUTION WIDTH 13.4 % (11.6-17.2); WHITE BLOOD COUNT 0.3 TH/MM3 (4.0-11.0)
[2017-06-29 09:32] LABS: HEMATOCRIT 18.6 % (35.0-46.0); HEMOGLOBIN 6.5 GM/DL (11.6-15.3)
[2017-06-29] MEDS ORDERED: SODIUM CHLOR 0.9% 250 ML INJ 250 ML IV ONE (10:15)
[2017-06-29 10:47] LABS: LYMPHOCYTES 80 % (9-44); MONOCYTES 15 % (0-8); MYELOCYTES 5 % (0-0)
[2017-06-29 10:48] LABS: OVALOCYTES 1+ (NORMAL)
[2017-06-29 11:33] LABS: ALT (GPT) 47 U/L (10-53); AST (GOT) 29 U/L (15-37); BICARBONATE 28.6 MEQ/L (21.0-32.0); BLOOD UREA NITROGEN 8 MG/DL (7-18); CALCIUM 8.5 MG/DL (8.5-10.1); CHLORIDE 105 MEQ/L (98-107); CREATININE 0.48 MG/DL (0.50-1.00); GLOMERULAR FILTRATION RATE 132 ML/MIN (>89); GLUCOSE,RANDOM 152 MG/DL (74-106); SODIUM (NA) 140 MEQ/L (136-145)
[2017-06-29 11:35] LABS: ALKALINE PHOSPHATASE 76 U/L (45-117); TOTAL BILIRUBIN ADULT 0.9 MG/DL (0.2-1.0); TOTAL PROTEIN 6.5 GM/DL (6.4-8.2)
[2017-06-29] MEDS: NYSTAT/DIPHENHY/LIDO MOUTHWASH (Adult) 120ML SWISH-SWAL SCH ×2 (13:00→21:00)
[2017-06-29] MEDS: diphenhydrAMINE HCL 25 MG CAP PO PRN ×2 (13:11→16:52)
[2017-06-29] MEDS: ACETAMINOPHEN 325 MG TAB PO PRN ×2 (13:12→16:52)
[2017-06-29] MEDS ORDERED: SODIUM CHLOR 0.9% 250 ML INJ 250 ML IV SCH (15:00)
[2017-06-29] MEDS: DEXAMETHASONE IV SCH (20:40)
[2017-06-29] MEDS: SODIUM CHLORIDE 0.9% IV SCH (20:40)
[2017-06-29] MEDS: GRANISETRON IV SCH (20:40)
[2017-06-29] MEDS: SODIUM CHLOR 0.9% 1000 ML INJ 1,000 ML IV SCH (20:49)
[2017-06-29] MEDS: WATER IV SCH ×2 (21:54)
[2017-06-29] MEDS: FILGRASTIM IV SCH ×2 (21:54)
[2017-06-29] MEDS: DEXTROSE 5% IV SCH ×2 (21:54)
[2017-06-30] VITALS (14 sets, daily range): BP systolic 110–139; BP diastolic 56–78; PULSE 50–93; RESP 16–18; TEMP 96.7–98; O2SAT 96–100
[2017-06-30] MEDS: SODIUM CHLORIDE 0.9% IV SCH ×3 (00:07→19:43)
[2017-06-30] MEDS: [UNRECOGNIZED DRUG - OTHER] IV SCH ×2 (00:07→19:43)
[2017-06-30] MEDS: SODIUM CHLOR 0.9% 1000 ML INJ 1,000 ML IV SCH (00:30)
[2017-06-30] MEDS: SODIUM CHLORID 0.9% IV SCH (04:19)
[2017-06-30] MEDS: CYTARABINE IV SCH (04:19)
[2017-06-30 05:16] LABS: HEMATOCRIT 29.4 % (35.0-46.0); HEMOGLOBIN 10.2 GM/DL (11.6-15.3); MEAN CELL VOLUME 83.1 FL (80.0-100.0); MEAN CORPUSCULAR HEMOGLOBIN 28.8 PG (27.0-34.0); MEAN CORPUSCULAR HGB CONC 34.6 % (32.0-36.0); MEAN PLATELET VOLUME 7.6 FL (7.0-11.0); PLATELET COUNT 25 TH/MM3 (150-450); RED BLOOD COUNT 3.54 MIL/MM3 (4.00-5.30); RED CELL DISTRIBUTION WIDTH 13.6 % (11.6-17.2); WHITE BLOOD COUNT 0.5 TH/MM3 (4.0-11.0)
[2017-06-30 05:41] LABS: ALBUMIN 3.3 GM/DL (3.4-5.0); ALT (GPT) 52 U/L (10-53); AST (GOT) 31 U/L (15-37); BICARBONATE 25.8 MEQ/L (21.0-32.0); BLOOD UREA NITROGEN 9 MG/DL (7-18); CALCIUM 8.9 MG/DL (8.5-10.1); CHLORIDE 108 MEQ/L (98-107); CREATININE 0.68 MG/DL (0.50-1.00); GLOMERULAR FILTRATION RATE 89 ML/MIN (>89); GLUCOSE,RANDOM 184 MG/DL (74-106); SODIUM (NA) 141 MEQ/L (136-145)
[2017-06-30 05:42] LABS: ALKALINE PHOSPHATASE 87 U/L (45-117); TOTAL BILIRUBIN ADULT 1.6 MG/DL (0.2-1.0); TOTAL PROTEIN 7.2 GM/DL (6.4-8.2)
[2017-06-30 08:33] LABS: BANDS 8 % (0-6); CORRECTED NUCLEATED RBC 4 /100 WBC (0-0); LYMPHOCYTES 28 % (9-44); MONOCYTES 20 % (0-8); NEUTROPHIL # MANUAL DIFF 0.3 TH/MM3 (1.8-7.7); NUCLEATED RED BLOOD CELL 1 (0-0); POLYS (SEG NEUTROPHILS) 44 % (16-70)
[2017-06-30 08:34] LABS: OVALOCYTES 1+ (NORMAL)
[2017-06-30] MEDS: LOSARTAN 50 MG TAB PO SCH (08:53)
[2017-06-30] MEDS: amLODIPine BESYLATE 5 MG TAB PO SCH (08:53)
[2017-06-30] MEDS: CARVEDILOL 3.125 MG TAB PO SCH (08:53)
[2017-06-30] MEDS: predniSONE 5 MG TAB PO SCH (08:53)
[2017-06-30] MEDS: NYSTAT/DIPHENHY/LIDO MOUTHWASH (Adult) 120ML SWISH-SWAL SCH ×4 (09:00→22:16)
[2017-06-30] MEDS: IDARUBICIN IV SCH (11:01)
--- NOTE | 2017-06-30 14:05 | PD.ONC.PN ---
Subjective Subjective Remarks Afebrile Pt reports she is trying to eat a lot before the "nausea and mouth problems kick in" Tolerating chemotherapy Denies pain Objective Data Date Time Temp Pulse Resp B/P (MAP) Pulse Ox O2 Delivery O2 Flow Rate FiO2 06/30/17 12:38 78 06/30/17 08:00 96.9 91 18 139/78 (98) 98 06/30/17 08:00 93 06/30/17 06:00 74 06/30/17 04:06 97.0 80 16 133/75 (94) 98 06/30/17 04:00 77 06/30/17 03:00 66 06/30/17 02:00 74 06/30/17 01:00 50 06/30/17 00:00 96.7 54 16 110/56 (74) 100 06/30/17 00:00 58 06/29/17 23:00 74 06/29/17 22:00 58 06/29/17 20:35 97.5 77 18 145/78 (100) 98 06/29/17 20:00 71 06/29/17 20:00 72 06/29/17 19:00 70 06/29/17 18:00 70 06/29/17 17:20 98.1 80 18 122/70 98 06/29/17 17:04 97.8 91 18 130/78 96 06/29/17 17:00 74 06/29/17 16:00 72 06/29/17 15:00 72 06/29/17 14:38 97.9 18 18 98/54 97 06/29/17 14:17 97.6 90 18 137/83 95 06/30/17 06/30/17 06/30/17 07:00 15:00 23:00 Intake Total 625 ml Balance 625 ml Result Diagram: 06/30/17 0400 06/30/17 0400 Laboratory Results Laboratory Tests Test 06/30/17 04:00 White Blood Count 0.5 TH/MM3 Red Blood Count 3.54 MIL/MM3 Hemoglobin 10.2 GM/DL Hematocrit 29.4 % Mean Corpuscular Volume 83.1 FL Mean Corpuscular Hemoglobin 28.8 PG Mean Corpuscular Hemoglobin Concent 34.6 % Red Cell Distribution Width 13.6 % Platelet Count 25 TH/MM3 Mean Platelet Volume 7.6 FL CBC Comment AUTO DIFF Differential Total Cells Counted 25 Neutrophils % (Manual) 44 % Band Neutrophils % 8 % Lymphocytes % 28 % Monocytes % 20 % Neutrophils # (Manual) 0.3 TH/MM3 Nucleated Red Blood Cells 4 /100 WBC Differential Comment FINAL DIFF MANUAL Platelet Estimate LOW Platelet Morphology Comment NORMAL Ovalocytes 1+ Blood Urea Nitrogen 9 MG/DL Creatinine 0.68 MG/DL Random Glucose 184 MG/DL Total Protein 7.2 GM/DL Albumin 3.3 GM/DL Calcium Level 8.9 MG/DL Alkaline Phosphatase 87 U/L Aspartate Amino Transf (AST/SGOT) 31 U/L Alanine Aminotransferase (ALT/SGPT) 52 U/L Total Bilirubin 1.6 MG/DL Sodium Level 141 MEQ/L Potassium Level 4.2 MEQ/L Chloride Level 108 MEQ/L Carbon Dioxide Level 25.8 MEQ/L Anion Gap 7 MEQ/L Estimat Glomerular Filtration Rate 89 ML/MIN Administered Medications Medications (Trade) Dose Ordered Sig/Zeynep Route PRN Reason Start Time Stop Time Status Last Admin Dose Admin Dextrose/Sodium Chloride 1,000 ml @ 100 mls/hr Q10H IV 06/28/17 14:00 06/29/17 06:17 Carvedilol (Coreg) 3.125 mg DAILY PO 06/29/17 09:00 06/30/17 08:53 Amlodipine Besylate (Norvasc) 5 mg DAILY PO 06/29/17 09:00 06/30/17 08:53 Prednisone (Deltasone) 5 mg DAILY PO 06/29/17 09:00 06/30/17 08:53 Losartan Potassium (Cozaar) 100 mg DAILY PO 06/29/17 09:00 06/30/17 08:53 Al Hydrox/Mg Hydrox/Simethicone (Mag-Al Plus Susp Liq) 15 ml Q6H PRN PO INDIGESTION 06/28/17 20:45 06/28/17 21:50 Granisetron HCl 1 mg/Dexamethasone Sodium Phosphate 20 mg/Sodium Chloride 106 ml @ 424 mls/hr Q24H IV 06/29/17 14:30 06/29/17 20:40 Filgrastim 543 mcg/Dextrose 51.81 ml @ 25.905 mls/ hr Q24H IV 06/29/17 15:00 07/03/17 16:59 06/29/17 21:54 Fludarabine Phosphate 54.3 mg/ Sodium Chloride 100 ml @ 200 mls/hr Q24H IV 06/29/17 17:00 06/30/17 00:07 Cytarabine 3620 mg/Sodium Chloride 500 ml @ 125 mls/hr Q24H IV 06/29/17 21:00 07/04/17 00:59 06/30/17 04:19 Idarubicin HCl 18.1 mg/Sodium Chloride 118.1 ml @ 472.4 mls/ hr Q24H IV 06/30/17 01:00 07/02/17 01:14 06/30/17 11:01 Sodium Chloride 1,000 ml @ 100 mls/hr Q10H IV 06/29/17 14:30 06/29/17 20:49 Objective Remarks GENERAL: Middle aged female, sitting up on side of bed eating lunch in no obvious distress. SKIN: Warm and dry. HEAD: Normocephalic. +Alopecia EYES: No injection or drainage. NECK: Supple, trachea midline. CARDIOVASCULAR: Regular rate and rhythm RESPIRATORY: Breath sounds equal bilaterally. No accessory muscle use. GASTROINTESTINAL: Abdomen soft, non-tender, nondistended. EXTREMITIES: No cyanosis NEUROLOGICAL: Awake and alert, normal speech. Moving all extremities. Assessment/Plan Problem List: (1) AML (acute myeloid leukemia) in relapse ICD Codes: C92.02 - Acute myeloblastic leukemia, in relapse Plan: 06/30/17: D3. Tolerating chemo. No transfusion today. 06/29/17: D2, give 2 units pRBC this AM. start chemotherapy this afternoon. 06/28/17: admission, D1 Assessment 57y/o female admitted for salvage chemotherapy with FLAG-AKASH for refractory acute myeloid leukemia. h/o Rheumatoid arthritis. Anxiety disorder. COPD. Depression. Hypercholesterolemia. Hypertension. Irregular heartbeat Attending Statement The exam, history, and the medical decision-making described in the above note were completed with the assistance of the mid-level provider. I reviewed and agree with the findings presented. I attest that I had a [id number] encounter with the patient on the same day, and personally performed and documented my assessment and findings in the medical record. Less fatigue after PRBC yesterday Feels better. NO N/V No problems with chemo so far. Day 3 of FLAG-AKASH No TX today. Pt has H/O depression and anxiety. Does not want to take meds at thsi time. d/w Amina Cha Jun 30, 2017 14:05 April Fonseca MD Jun 30, 2017 17:21
[2017-06-30] MEDS: DEXT 5%-NACL 0.45% 1000 ML INJ 1,000 ML IV SCH (16:00)
[2017-06-30] MEDS: WATER IV SCH ×2 (16:59)
[2017-06-30] MEDS: DEXTROSE 5% IV SCH ×2 (16:59)
[2017-06-30] MEDS: FILGRASTIM IV SCH ×2 (16:59)
[2017-07-01] VITALS (21 sets, daily range): BP systolic 112–147; BP diastolic 61–88; PULSE 50–87; RESP 16–20; TEMP 96.6–98.3; O2SAT 97–100
[2017-07-01] MEDS: SODIUM CHLORIDE 0.9% IV SCH ×3 (00:07→19:46)
[2017-07-01] MEDS: GRANISETRON IV SCH (00:07)
[2017-07-01] MEDS: DEXAMETHASONE IV SCH (00:07)
[2017-07-01] MEDS: SODIUM CHLORID 0.9% IV SCH (00:41)
[2017-07-01] MEDS: CYTARABINE IV SCH (00:41)
[2017-07-01] MEDS: IDARUBICIN IV SCH (05:37)
[2017-07-01 06:00] LABS: HEMATOCRIT 23.6 % (35.0-46.0); HEMOGLOBIN 8.2 GM/DL (11.6-15.3); MEAN CELL VOLUME 82.9 FL (80.0-100.0); MEAN CORPUSCULAR HGB CONC 34.9 % (32.0-36.0); MEAN PLATELET VOLUME 7.9 FL (7.0-11.0); RED BLOOD COUNT 2.84 MIL/MM3 (4.00-5.30); RED CELL DISTRIBUTION WIDTH 13.5 % (11.6-17.2); WHITE BLOOD COUNT 0.6 TH/MM3 (4.0-11.0)
[2017-07-01 06:14] LABS: PLATELET COUNT 11 TH/MM3 (150-450)
[2017-07-01 06:23] LABS: ALBUMIN 2.8 GM/DL (3.4-5.0); AST (GOT) 23 U/L (15-37); BICARBONATE 26.4 MEQ/L (21.0-32.0); BLOOD UREA NITROGEN 10 MG/DL (7-18); CALCIUM 8.3 MG/DL (8.5-10.1); CHLORIDE 111 MEQ/L (98-107); CREATININE 0.54 MG/DL (0.50-1.00); GLOMERULAR FILTRATION RATE 116 ML/MIN (>89); GLUCOSE,RANDOM 194 MG/DL (74-106); SODIUM (NA) 143 MEQ/L (136-145)
[2017-07-01 06:24] LABS: ALT (GPT) 47 U/L (10-53)
[2017-07-01 06:26] LABS: ALKALINE PHOSPHATASE 70 U/L (45-117); TOTAL BILIRUBIN ADULT 0.8 MG/DL (0.2-1.0)
[2017-07-01 08:10] LABS: BANDS 18 % (0-6); CORRECTED NUCLEATED RBC 1 /100 WBC (0-0); DOHLE BODIES PRESENT (NONE SEEN); LYMPHOCYTES 13 % (9-44); MONOCYTES 28 % (0-8); NEUTROPHIL # MANUAL DIFF 0.4 TH/MM3 (1.8-7.7); NUCLEATED RED BLOOD CELL 1 (0-0); POLYS (SEG NEUTROPHILS) 41 % (16-70)
[2017-07-01] MEDS: predniSONE 5 MG TAB PO SCH (09:01)
[2017-07-01] MEDS: amLODIPine BESYLATE 5 MG TAB PO SCH (09:01)
[2017-07-01] MEDS: CARVEDILOL 3.125 MG TAB PO SCH (09:01)
[2017-07-01] MEDS: NYSTAT/DIPHENHY/LIDO MOUTHWASH (Adult) 120ML SWISH-SWAL SCH ×4 (09:01→20:43)
[2017-07-01] MEDS: LOSARTAN 50 MG TAB PO SCH (09:01)
--- NOTE | 2017-07-01 09:26 | PD.ONC.PN ---
Subjective Subjective Remarks Afebrile overnight. In better spirits today. tolerating chemotherapy. no sores in mouth. denies nausea or vomiting. Objective Data Date Time Temp Pulse Resp B/P (MAP) Pulse Ox O2 Delivery O2 Flow Rate FiO2 07/01/17 08:48 97.7 79 20 135/88 (104) 100 07/01/17 05:24 97.7 76 16 115/62 (79) 97 07/01/17 05:00 66 07/01/17 04:20 66 07/01/17 03:00 68 07/01/17 02:00 62 07/01/17 01:00 64 07/01/17 00:06 96.6 72 16 147/74 (98) 99 07/01/17 00:00 63 06/30/17 23:00 70 06/30/17 22:00 64 06/30/17 20:00 81 06/30/17 19:43 98.0 72 18 132/60 (84) 96 06/30/17 19:00 74 06/30/17 12:38 78 Result Diagram: 07/01/17 0530 07/01/17 0530 Laboratory Results Laboratory Tests Test 07/01/17 05:30 White Blood Count 0.6 TH/MM3 Red Blood Count 2.84 MIL/MM3 Hemoglobin 8.2 GM/DL Hematocrit 23.6 % Mean Corpuscular Volume 82.9 FL Mean Corpuscular Hemoglobin 29.0 PG Mean Corpuscular Hemoglobin Concent 34.9 % Red Cell Distribution Width 13.5 % Platelet Count 11 TH/MM3 Mean Platelet Volume 7.9 FL CBC Comment AUTO DIFF Differential Total Cells Counted 100 Neutrophils % (Manual) 41 % Band Neutrophils % 18 % Lymphocytes % 13 % Monocytes % 28 % Neutrophils # (Manual) 0.4 TH/MM3 Nucleated Red Blood Cells 1 /100 WBC Differential Comment FINAL DIFF MANUAL Atypical Lymphocytes % Dohle Bodies PRESENT Platelet Estimate RARE Platelet Morphology Comment NORMAL Blood Urea Nitrogen 10 MG/DL Creatinine 0.54 MG/DL Random Glucose 194 MG/DL Total Protein 6.0 GM/DL Albumin 2.8 GM/DL Calcium Level 8.3 MG/DL Alkaline Phosphatase 70 U/L Aspartate Amino Transf (AST/SGOT) 23 U/L Alanine Aminotransferase (ALT/SGPT) 47 U/L Total Bilirubin 0.8 MG/DL Sodium Level 143 MEQ/L Potassium Level 4.6 MEQ/L Chloride Level 111 MEQ/L Carbon Dioxide Level 26.4 MEQ/L Anion Gap 6 MEQ/L Estimat Glomerular Filtration Rate 116 ML/MIN Administered Medications Medications (Trade) Dose Ordered Sig/Zeynep Route PRN Reason Start Time Stop Time Status Last Admin Dose Admin Dextrose/Sodium Chloride 1,000 ml @ 100 mls/hr Q10H IV 06/28/17 14:00 06/29/17 06:17 Carvedilol (Coreg) 3.125 mg DAILY PO 06/29/17 09:00 07/01/17 09:01 Amlodipine Besylate (Norvasc) 5 mg DAILY PO 06/29/17 09:00 07/01/17 09:01 Prednisone (Deltasone) 5 mg DAILY PO 06/29/17 09:00 07/01/17 09:01 Losartan Potassium (Cozaar) 100 mg DAILY PO 06/29/17 09:00 07/01/17 09:01 Al Hydrox/Mg Hydrox/Simethicone (Mag-Al Plus Susp Liq) 15 ml Q6H PRN PO INDIGESTION 06/28/17 20:45 06/28/17 21:50 Granisetron HCl 1 mg/Dexamethasone Sodium Phosphate 20 mg/Sodium Chloride 106 ml @ 424 mls/hr Q24H IV 06/29/17 14:30 07/01/17 00:07 Fludarabine Phosphate 54.3 mg/ Sodium Chloride 100 ml @ 200 mls/hr Q24H IV 06/29/17 17:00 06/30/17 19:43 Cytarabine 3620 mg/Sodium Chloride 500 ml @ 125 mls/hr Q24H IV 06/29/17 21:00 07/04/17 00:59 07/01/17 00:41 Idarubicin HCl 18.1 mg/Sodium Chloride 118.1 ml @ 472.4 mls/ hr Q24H IV 06/30/17 01:00 07/02/17 01:14 07/01/17 05:37 Sodium Chloride 1,000 ml @ 100 mls/hr Q10H IV 06/29/17 14:30 06/29/17 20:49 Multi-Ingredient Mouthwash/Gargle (Magic Mouthwash Adult Liq) 5 ml QID SWISH-SWAL 06/29/17 13:00 07/01/17 09:01 Objective Remarks GENERAL: chronically ill appearing pleasant middle aged female, sitting up on side of bed in nad SKIN: Warm and dry. HEAD: Normocephalic. +alopecia. EYES: No injection or drainage. NECK: Supple, trachea midline. CARDIOVASCULAR: Regular rate and rhythm RESPIRATORY: Breath sounds equal bilaterally. No accessory muscle use. GASTROINTESTINAL: Abdomen soft, non-tender, nondistended. EXTREMITIES: No cyanosis NEUROLOGICAL: No obvious focal deficit. Awake, alert, and oriented x3. Assessment/Plan Problem List: (1) AML (acute myeloid leukemia) in relapse ICD Codes: C92.02 - Acute myeloblastic leukemia, in relapse Plan: 07/01/17: D4. 1 unit platelets. continue chemotherapy. 06/30/17: D3. Tolerating chemo. No transfusion today. 06/29/17: D2, give 2 units pRBC this AM. start chemotherapy this afternoon. 06/28/17: admission, D1 Assessment 57y/o female admitted for salvage chemotherapy with FLAG-AKASH for refractory acute myeloid leukemia. h/o Rheumatoid arthritis. Anxiety disorder. COPD. Depression. Hypercholesterolemia. Hypertension. Irregular heartbeat Attending Statement The exam, history, and the medical decision-making described in the above note were completed with the assistance of the mid-level provider. I reviewed and agree with the findings presented. I attest that I had a [id number] encounter with the patient on the same day, and personally performed and documented my assessment and findings in the medical record. Denies any nausea and vomiting No bleeding No diarrhea No fever She's feeling better than yesterday Day four of chemotherapy. So far tolerating chemotherapy well plat Tx one unit today Julianna Mcdaniel Jul 01, 2017 09:26 April Fonseca MD Jul 01, 2017 22:51
--- NOTE | 2017-07-01 11:34 | ECHRPT ---
Indication: LVEF CONCLUSIONS Normal left ventricular size. Mild concentric left ventricular hypertrophy. The left ventricular systolic function is low normal with an estimated ejection fraction in the rang e of 50%. technically limited study BP: 133 / 75 HR: 80 Rhythm: MEASUREMENTS (Male / Female) Normal Values Technical Quality:Fair 2D ECHO LV Diastolic Diameter PLAX 4.4 cm 4.2 - 5.9 / 3.9 - 5.3 cm LV Systolic Diameter PLAX 3.4 cm IVS Diastolic Thickness 1.4 cm 0.6 - 1.0 / 0.6 - 0.9 cm LVPW Diastolic Thickness 0.7 cm 0.6 - 1.0 / 0.6 - 0.9 cm LV Relative Wall Thickness 0.5 RV Internal Dim ED PLAX 2.3 cm LA Systolic Diameter LX 2.6 cm 3.0 - 4.0 / 2.7 - 3.8 cm DOPPLER Mitral E Point Velocity 86.1 cm/s Mitral A Point Velocity 94.9 cm/s Mitral E to A Ratio 0.9 TR Peak Velocity 162.0 cm/s TR Peak Gradient 10.5 mmHg FINDINGS LEFT VENTRICLE Normal left ventricular size. Mild concentric left ventricular hypertrophy. The left ventricular systolic function is low normal with an estimated ejection fraction in the rang e of 50%. RIGHT VENTRICLE Normal right ventricular size and systolic function. LEFT ATRIUM The left atrial size is normal. RIGHT ATRIUM The right atrial size is normal. ATRIAL SEPTUM Normal atrial septal thickness without atrial level shunting by limited color doppler interrogation. AORTA The aortic root and proximal ascending aorta are normal in size on limited imaging. MITRAL VALVE Structurally normal mitral valve. No mitral valve stenosis or regurgitation. AORTIC VALVE Trileaflet aortic valve. No aortic valve stenosis or regurgitation. TRICUSPID VALVE Structurally normal tricuspid valve. No tricuspid valve stenosis or regurgitation. PULMONARY VALVE The pulmonary valve is not well visualized. VESSELS The inferior vena cava is normal in size. PERICARDIUM No pericardial effusion. Yovanny Odell MD, FACC, [facility] [place] (Electronically Signed) Final Date:01 July 2017 11:33
[2017-07-01] MEDS: diphenhydrAMINE HCL 25 MG CAP PO PRN (11:43)
[2017-07-01] MEDS: DEXT 5%-NACL 0.45% 1000 ML INJ 1,000 ML IV SCH ×2 (11:43→20:44)
[2017-07-01] MEDS: ACETAMINOPHEN 325 MG TAB PO PRN (11:43)
[2017-07-01] MEDS: FILGRASTIM INJ 480 MCG in DEXTROSE 5% IN WATER INJ 50 ML IV SCH ×2 (17:42)
[2017-07-01] MEDS: [UNRECOGNIZED DRUG - OTHER] IV SCH (19:46)
[2017-07-02] VITALS (22 sets, daily range): BP systolic 108–165; BP diastolic 57–93; PULSE 42–65; RESP 16–20; TEMP 97.6–98.7; O2SAT 97–99
[2017-07-02] MEDS: diphenhydrAMINE HCL 25 MG CAP PO PRN ×2 (00:20→12:08)
[2017-07-02] MEDS: SODIUM CHLORIDE 0.9% IV SCH ×4 (00:20→23:59)
[2017-07-02] MEDS: GRANISETRON IV SCH ×2 (00:20→23:59)
[2017-07-02] MEDS: DEXAMETHASONE IV SCH ×2 (00:20→23:59)
[2017-07-02] MEDS: CYTARABINE IV SCH (01:17)
[2017-07-02] MEDS: SODIUM CHLORID 0.9% IV SCH (01:17)
[2017-07-02 05:43] LABS: HEMATOCRIT 22.5 % (35.0-46.0); HEMOGLOBIN 7.8 GM/DL (11.6-15.3); MEAN CELL VOLUME 83.6 FL (80.0-100.0); MEAN CORPUSCULAR HEMOGLOBIN 29.1 PG (27.0-34.0); MEAN CORPUSCULAR HGB CONC 34.8 % (32.0-36.0); MEAN PLATELET VOLUME 7.7 FL (7.0-11.0); RED BLOOD COUNT 2.69 MIL/MM3 (4.00-5.30); RED CELL DISTRIBUTION WIDTH 13.7 % (11.6-17.2); WHITE BLOOD COUNT 0.4 TH/MM3 (4.0-11.0)
[2017-07-02 05:56] LABS: PLATELET COUNT 12 TH/MM3 (150-450)
[2017-07-02] MEDS: IDARUBICIN IV SCH (06:08)
[2017-07-02 06:09] LABS: ALBUMIN 1.9 GM/DL (3.4-5.0); BICARBONATE 20.5 MEQ/L (21.0-32.0); CALCIUM 5.8 MG/DL (8.5-10.1); CREATININE 0.26 MG/DL (0.50-1.00); TOTAL BILIRUBIN ADULT 0.8 MG/DL (0.2-1.0); TOTAL PROTEIN 3.9 GM/DL (6.4-8.2)
[2017-07-02 06:18] LABS: CALCIUM-PROTEIN CORRECTED 7.3 MG/DL (8.5-10.1)
[2017-07-02] MEDS ORDERED: POTASSIUM CHLOR 40 MEQ PREMIX 100 ML IV ONE (08:30)
[2017-07-02] MEDS: LOSARTAN 50 MG TAB PO SCH (08:39)
[2017-07-02] MEDS: CARVEDILOL 3.125 MG TAB PO SCH (08:39)
[2017-07-02] MEDS: predniSONE 5 MG TAB PO SCH (08:39)
[2017-07-02] MEDS: amLODIPine BESYLATE 5 MG TAB PO SCH (08:39)
[2017-07-02] MEDS: NYSTAT/DIPHENHY/LIDO MOUTHWASH (Adult) 120ML SWISH-SWAL SCH ×4 (08:40→21:00)
[2017-07-02 09:10] LABS: BANDS 20 % (0-6); LYMPHOCYTES 6 % (9-44); MONOCYTES 26 % (0-8); NEUTROPHIL # MANUAL DIFF 0.3 TH/MM3 (1.8-7.7); POLYS (SEG NEUTROPHILS) 48 % (16-70)
[2017-07-02 09:11] LABS: OVALOCYTES 1+ (NORMAL)
--- NOTE | 2017-07-02 09:57 | PD.ONC.PN ---
Subjective Subjective Remarks Afebrile overnight. Patient resting in bed in nad. had a difficult time sleeping last night. would like to try melatonin again. denies pain. no mouth sores. Objective Data Date Time Temp Pulse Resp B/P (MAP) Pulse Ox O2 Delivery O2 Flow Rate FiO2 07/02/17 08:43 98.1 65 20 165/93 (117) 98 07/02/17 05:04 98.5 56 18 119/57 (77) 98 07/02/17 05:00 58 07/02/17 04:04 58 07/02/17 03:00 54 07/02/17 02:00 54 07/02/17 01:00 55 07/02/17 00:33 97.6 60 18 115/60 (78) 97 07/02/17 00:00 60 07/01/17 23:00 50 07/01/17 22:00 50 07/01/17 21:00 62 07/01/17 20:01 87 07/01/17 19:55 98.3 83 20 141/84 (103) 98 07/01/17 19:00 64 07/01/17 17:48 97.9 66 20 122/66 (84) 98 07/01/17 16:00 66 07/01/17 13:07 97.6 55 18 123/61 97 07/01/17 12:48 98.2 55 20 112/67 99 07/01/17 12:00 54 07/02/17 07/02/17 07/02/17 07:00 15:00 23:00 Intake Total 1699.1 ml Output Total 1550 ml Balance 149.1 ml Result Diagram: 07/02/1715 07/02/17 0515 Laboratory Results Laboratory Tests Test 07/02/17 05:15 White Blood Count 0.4 TH/MM3 Red Blood Count 2.69 MIL/MM3 Hemoglobin 7.8 GM/DL Hematocrit 22.5 % Mean Corpuscular Volume 83.6 FL Mean Corpuscular Hemoglobin 29.1 PG Mean Corpuscular Hemoglobin Concent 34.8 % Red Cell Distribution Width 13.7 % Platelet Count 12 TH/MM3 Mean Platelet Volume 7.7 FL CBC Comment AUTO DIFF Differential Total Cells Counted 50 Neutrophils % (Manual) 48 % Band Neutrophils % 20 % Lymphocytes % 6 % Monocytes % 26 % Neutrophils # (Manual) 0.3 TH/MM3 Differential Comment FINAL DIFF MANUAL Platelet Estimate RARE Platelet Morphology Comment NORMAL Ovalocytes 1+ Blood Urea Nitrogen 9 MG/DL Creatinine 0.26 MG/DL Random Glucose 145 MG/DL Total Protein 3.9 GM/DL Albumin 1.9 GM/DL Calcium Level 5.8 MG/DL Alkaline Phosphatase 49 U/L Aspartate Amino Transf (AST/SGOT) 11 U/L Alanine Aminotransferase (ALT/SGPT) 34 U/L Total Bilirubin 0.8 MG/DL Sodium Level 149 MEQ/L Potassium Level 3.0 MEQ/L Chloride Level 121 MEQ/L Carbon Dioxide Level 20.5 MEQ/L Anion Gap 8 MEQ/L Estimat Glomerular Filtration Rate 269 ML/MIN Protein Corrected Calcium 7.3 MG/DL Administered Medications Medications (Trade) Dose Ordered Sig/Zeynep Route PRN Reason Start Time Stop Time Status Last Admin Dose Admin Dextrose/Sodium Chloride 1,000 ml @ 100 mls/hr Q10H IV 06/28/17 14:00 07/01/17 20:44 Carvedilol (Coreg) 3.125 mg DAILY PO 06/29/17 09:00 07/02/17 08:39 Amlodipine Besylate (Norvasc) 5 mg DAILY PO 06/29/17 09:00 07/02/17 08:39 Prednisone (Deltasone) 5 mg DAILY PO 06/29/17 09:00 07/02/17 08:39 Losartan Potassium (Cozaar) 100 mg DAILY PO 06/29/17 09:00 07/02/17 08:39 Al Hydrox/Mg Hydrox/Simethicone (Mag-Al Plus Susp Liq) 15 ml Q6H PRN PO INDIGESTION 06/28/17 20:45 06/28/17 21:50 Granisetron HCl 1 mg/Dexamethasone Sodium Phosphate 20 mg/Sodium Chloride 106 ml @ 424 mls/hr Q24H IV 06/29/17 14:30 07/02/17 00:20 Fludarabine Phosphate 54.3 mg/ Sodium Chloride 100 ml @ 200 mls/hr Q24H IV 06/29/17 17:00 07/01/17 19:46 Cytarabine 3620 mg/Sodium Chloride 500 ml @ 125 mls/hr Q24H IV 06/29/17 21:00 07/04/17 00:59 07/02/17 01:17 Sodium Chloride 1,000 ml @ 100 mls/hr Q10H IV 06/29/17 14:30 Future Hold 06/29/17 20:49 Multi-Ingredient Mouthwash/Gargle (Magic Mouthwash Adult Liq) 5 ml QID SWISH-SWAL 06/29/17 13:00 07/01/17 11:43 Diphenhydramine HCl (Benadryl) 25 mg Q6H PRN PO itching 06/30/17 10:45 07/02/17 00:20 Filgrastim 480 mcg/Dextrose 51.6 ml @ 25.905 mls/ hr Q24H IV 07/01/17 18:00 07/03/17 20:00 07/01/17 17:42 Acetaminophen (Tylenol) 650 mg Q4H PRN PO PREMED FOR BLOOD PRODUCTS 07/01/17 10:45 07/01/17 11:43 Diphenhydramine HCl (Benadryl) 25 mg Q4H PRN PO PREMED FOR BLOOD PRODUCTS 07/01/17 10:45 07/01/17 11:43 Potassium Chloride 100 ml @ 25 mls/hr ONCE ONCE IV 07/02/17 08:30 07/02/17 12:29 07/02/17 08:38 Objective Remarks GENERAL: pleasant female, sitting up in bed, talking on the phone, ordering breakfast. SKIN: Warm and dry. HEAD: Normocephalic. +alopecia. EYES: No injection or drainage. NECK: Supple, trachea midline. CARDIOVASCULAR: Regular rate and rhythm RESPIRATORY: Breath sounds equal bilaterally. No accessory muscle use. GASTROINTESTINAL: Abdomen soft, non-tender, nondistended. EXTREMITIES: No cyanosis NEUROLOGICAL: awake and alert, normal speech. moving all extremities. 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 1 unit platelets. continue chemotherapy. 07/01/17: D4. 1 unit platelets. continue chemotherapy. 06/30/17: D3. Tolerating chemo. No transfusion today. 06/29/17: D2, give 2 units pRBC this AM. start chemotherapy this afternoon. 06/28/17: admission, D1 Assessment 57y/o female admitted for salvage chemotherapy with FLAG-AKASH for refractory acute myeloid leukemia. h/o Rheumatoid arthritis. Anxiety disorder. COPD. Depression. Hypercholesterolemia. Hypertension. Irregular heartbeat Attending Statement The exam, history, and the medical decision-making described in the above note were completed with the assistance of the mid-level provider. I reviewed and agree with the findings presented. I attest that I had a [id number] encounter with the patient on the same day, and personally performed and documented my assessment and findings in the medical record. Patient has problems sleeping last night She denies any nausea vomiting diarrhea Day five of chemotherapy plat tx todayThe exam, history, and the medical decision-making described in the above note were completed with the assistance of the mid-level provider. I reviewed and agree with the findings presented. I attest that I had a face-to- face encounter with the patient on the same day, and personally performed and documented my assessment and findings in the medical record. Julianna Mcdaniel Jul 02, 2017 09:57 April Fonseca MD Jul 02, 2017 22:49
[2017-07-02] MEDS: ACETAMINOPHEN 325 MG TAB PO PRN (12:08)
[2017-07-02] MEDS: CALCIUM CARBONATE 1.25 GM (CA 500 MG) TAB PO SCH ×3 (13:19→20:27)
[2017-07-02 14:36] LABS: MAGNESIUM 1.5 MG/DL (1.5-2.5)
[2017-07-02] MEDS: FILGRASTIM INJ 480 MCG in DEXTROSE 5% IN WATER INJ 50 ML IV SCH ×2 (17:18)
[2017-07-02] MEDS: [UNRECOGNIZED DRUG - OTHER] IV SCH (19:50)
[2017-07-02] MEDS: POTASSIUM PHOSPHATE MONOBASIC 500 MG TAB PO SCH (20:27)
[2017-07-02] MEDS: MELATONIN 5 MG TAB PO PRN (20:28)
[2017-07-03] VITALS (23 sets, daily range): BP systolic 96–168; BP diastolic 53–98; PULSE 46–82; RESP 16–18; TEMP 97.8–98.8; O2SAT 96–100
[2017-07-03] MEDS: SODIUM CHLORID 0.9% IV SCH (00:48)
[2017-07-03] MEDS: CYTARABINE IV SCH (00:48)
[2017-07-03] MEDS: DEXT 5%-NACL 0.45% 1000 ML INJ 1,000 ML IV SCH ×3 (04:00→14:00)
[2017-07-03 05:49] LABS: MEAN CELL VOLUME 83.7 FL (80.0-100.0); MEAN CORPUSCULAR HEMOGLOBIN 28.9 PG (27.0-34.0); MEAN CORPUSCULAR HGB CONC 34.6 % (32.0-36.0); MEAN PLATELET VOLUME 7.9 FL (7.0-11.0); RED BLOOD COUNT 2.35 MIL/MM3 (4.00-5.30); RED CELL DISTRIBUTION WIDTH 13.3 % (11.6-17.2); WHITE BLOOD COUNT 0.2 TH/MM3 (4.0-11.0)
[2017-07-03 06:14] LABS: HEMOGLOBIN 6.8 GM/DL (11.6-15.3)
[2017-07-03 06:15] LABS: HEMATOCRIT 19.6 % (35.0-46.0); PLATELET COUNT 17 TH/MM3 (150-450)
[2017-07-03 06:18] LABS: ALBUMIN 2.8 GM/DL (3.4-5.0); BICARBONATE 27.8 MEQ/L (21.0-32.0); CALCIUM 8.6 MG/DL (8.5-10.1); CREATININE 0.52 MG/DL (0.50-1.00); DIRECT BILIRUBIN ADULT 0.3 MG/DL (0.0-0.2); INDIRECT BILIRUBIN 1.1 MG/DL (0.0-0.8); MAGNESIUM 1.9 MG/DL (1.5-2.5); PHOSPHORUS 3.8 MG/DL (2.5-4.9); TOTAL BILIRUBIN ADULT 1.4 MG/DL (0.2-1.0); TOTAL PROTEIN 5.4 GM/DL (6.4-8.2)
[2017-07-03] MEDS ORDERED: SODIUM CHLOR 0.9% 250 ML INJ 250 ML IV ONE (07:45)
[2017-07-03 08:13] LABS: LYMPHOCYTES 31 % (9-44); NEUTROPHIL # MANUAL DIFF 0.1 TH/MM3 (1.8-7.7); POLYS (SEG NEUTROPHILS) 69 % (16-70)
[2017-07-03] MEDS: predniSONE 5 MG TAB PO SCH (08:37)
[2017-07-03] MEDS: ACETAMINOPHEN 325 MG TAB PO PRN (08:37)
[2017-07-03] MEDS: LOSARTAN 50 MG TAB PO SCH (08:37)
[2017-07-03] MEDS: diphenhydrAMINE HCL 25 MG CAP PO PRN (08:37)
[2017-07-03] MEDS: POTASSIUM PHOSPHATE MONOBASIC 500 MG TAB PO SCH (08:37)
[2017-07-03] MEDS: NYSTAT/DIPHENHY/LIDO MOUTHWASH (Adult) 120ML SWISH-SWAL SCH ×4 (08:39→19:50)
--- NOTE | 2017-07-03 10:14 | PD.ONC.PN ---
Subjective Subjective Remarks Afebrile overnight. Patient resting in bed. no complaints today. ate breakfast without problems. Objective Data Date Time Temp Pulse Resp B/P (MAP) Pulse Ox O2 Delivery O2 Flow Rate FiO2 07/03/17 09:47 98.4 70 18 109/55 98 07/03/17 06:00 50 07/03/17 05:00 54 07/03/17 04:14 97.8 53 18 107/53 (71) 96 07/03/17 04:00 48 07/03/17 03:00 60 07/03/17 02:00 48 07/03/17 01:00 46 07/03/17 00:20 46 07/03/17 00:05 97.9 49 18 155/68 (97) 100 07/02/17 23:00 52 07/02/17 22:00 52 07/02/17 21:00 42 07/02/17 20:07 60 07/02/17 19:42 97.6 50 18 147/69 (95) 99 07/02/17 19:00 50 07/02/17 18:21 98.7 52 16 134/72 (92) 99 07/02/17 16:00 57 07/02/17 14:15 97.6 55 18 108/57 99 07/02/17 13:25 97.9 58 20 125/68 98 07/02/17 13:04 97.8 55 20 112/58 99 07/02/17 12:39 49 07/03/17 07/03/17 07/03/17 07:00 15:00 23:00 Intake Total 106 ml Output Total 1300 ml Balance -1194 ml Result Diagram: 07/03/178 07/03/17 0408 Laboratory Results Laboratory Tests Test 07/03/17 04:08 White Blood Count 0.2 TH/MM3 Red Blood Count 2.35 MIL/MM3 Hemoglobin 6.8 GM/DL Hematocrit 19.6 % Mean Corpuscular Volume 83.7 FL Mean Corpuscular Hemoglobin 28.9 PG Mean Corpuscular Hemoglobin Concent 34.6 % Red Cell Distribution Width 13.3 % Platelet Count 17 TH/MM3 Mean Platelet Volume 7.9 FL CBC Comment AUTO DIFF Differential Total Cells Counted 13 Neutrophils % (Manual) 69 % Lymphocytes % 31 % Neutrophils # (Manual) 0.1 TH/MM3 Differential Comment FINAL DIFF MANUAL Platelet Estimate RARE Platelet Morphology Comment NORMAL Blood Urea Nitrogen 13 MG/DL Creatinine 0.52 MG/DL Random Glucose 214 MG/DL Total Protein 5.4 GM/DL Albumin 2.8 GM/DL Calcium Level 8.6 MG/DL Phosphorus Level 3.8 MG/DL Magnesium Level 1.9 MG/DL Alkaline Phosphatase 60 U/L Aspartate Amino Transf (AST/SGOT) 12 U/L Alanine Aminotransferase (ALT/SGPT) 42 U/L Total Bilirubin 1.4 MG/DL Direct Bilirubin 0.3 MG/DL Sodium Level 141 MEQ/L Potassium Level 4.6 MEQ/L Chloride Level 107 MEQ/L Carbon Dioxide Level 27.8 MEQ/L Anion Gap 6 MEQ/L Estimat Glomerular Filtration Rate 121 ML/MIN Indirect Bilirubin 1.1 MG/DL Administered Medications Medications (Trade) Dose Ordered Sig/Zeynep Route PRN Reason Start Time Stop Time Status Last Admin Dose Admin Dextrose/Sodium Chloride 1,000 ml @ 100 mls/hr Q10H IV 06/28/17 14:00 07/03/17 00:00 Carvedilol (Coreg) 3.125 mg DAILY PO 06/29/17 09:00 Future Hold 07/02/17 08:39 Amlodipine Besylate (Norvasc) 5 mg DAILY PO 06/29/17 09:00 Future Hold 07/02/17 08:39 Prednisone (Deltasone) 5 mg DAILY PO 06/29/17 09:00 07/03/17 08:37 Losartan Potassium (Cozaar) 100 mg DAILY PO 06/29/17 09:00 07/03/17 08:37 Al Hydrox/Mg Hydrox/Simethicone (Mag-Al Plus Susp Liq) 15 ml Q6H PRN PO INDIGESTION 06/28/17 20:45 06/28/17 21:50 Granisetron HCl 1 mg/Dexamethasone Sodium Phosphate 20 mg/Sodium Chloride 106 ml @ 424 mls/hr Q24H IV 06/29/17 14:30 07/02/17 23:59 Fludarabine Phosphate 54.3 mg/ Sodium Chloride 100 ml @ 200 mls/hr Q24H IV 06/29/17 17:00 07/02/17 19:50 Cytarabine 3620 mg/Sodium Chloride 500 ml @ 125 mls/hr Q24H IV 06/29/17 21:00 07/04/17 00:59 07/03/17 00:48 Sodium Chloride 1,000 ml @ 100 mls/hr Q10H IV 06/29/17 14:30 Future Hold 06/29/17 20:49 Multi-Ingredient Mouthwash/Gargle (Magic Mouthwash Adult Liq) 5 ml QID SWISH-SWAL 06/29/17 13:00 07/03/17 08:39 Diphenhydramine HCl (Benadryl) 25 mg Q6H PRN PO itching 06/30/17 10:45 07/03/17 08:37 Filgrastim 480 mcg/Dextrose 51.6 ml @ 25.905 mls/ hr Q24H IV 07/01/17 18:00 07/03/17 20:00 07/02/17 17:18 Acetaminophen (Tylenol) 650 mg Q4H PRN PO PREMED FOR BLOOD PRODUCTS 07/01/17 10:45 07/03/17 08:37 Melatonin (Melatonin) 5 mg HS PRN PO insomnia 07/02/17 21:00 07/02/17 20:28 Potassium Phosphate (K-Phos) 1,000 mg Q12HR PO 07/02/17 21:00 07/03/17 20:59 07/03/17 08:37 Sodium Chloride 250 ml @ 15 mls/hr ONCE ONCE IV 07/03/17 07:45 07/04/17 00:24 07/03/17 08:39 Objective Remarks GENERAL: pleasant female, lying in bed resting in nad. SKIN: Warm and dry. HEAD: Normocephalic. +alopecia. EYES: No injection or drainage. NECK: Supple, trachea midline. CARDIOVASCULAR: Regular rate and rhythm RESPIRATORY: Breath sounds equal bilaterally. No accessory muscle use. GASTROINTESTINAL: Abdomen soft, non-tender, nondistended. EXTREMITIES: No cyanosis NEUROLOGICAL: no obvious focal deficit. awake, alert. normal speech. Assessment/Plan Problem List: (1) AML (acute myeloid leukemia) in relapse ICD Codes: C92.02 - Acute myeloblastic leukemia, in relapse Plan: 07/03/17: D6. 2 units pRBC. 07/02/17: D5. 1 unit platelets. continue chemotherapy. 07/01/17: D4. 1 unit platelets. continue chemotherapy. 06/30/17: D3. Tolerating chemo. No transfusion today. 06/29/17: D2, give 2 units pRBC this AM. start chemotherapy this afternoon. 06/28/17: admission, D1 Assessment 57y/o female admitted for salvage chemotherapy with FLAG-AKASH for refractory acute myeloid leukemia. h/o Rheumatoid arthritis. Anxiety disorder. COPD. Depression. Hypercholesterolemia. Hypertension. Irregular heartbeat Plan 1. give 2 units pRBC 2. monitor CBC Attending Statement The exam, history, and the medical decision-making described in the above note were completed with the assistance of the mid-level provider. I reviewed and agree with the findings presented. I attest that I had a [id number] encounter with the patient on the same day, and personally performed and documented my assessment and findings in the medical record. AML --S/P CLAG -M with relapse getting FLAG Hb low today. will transfuse 1 unit of pRBC no fevers Low BP overnight BP meds held IVF Severe thrombocytopenia-transfuse to keep PLT > 10 Neutropenia --monitor closely--if any fevers or chills ---> draw blood cx and initiate abx coverage with IV cefepime supportive care d/w rn o/n events reviewed Julianna Mcdaniel Jul 03, 2017 10:14 Godwin Hahn MD Jul 03, 2017 11:51
[2017-07-03] MEDS: FILGRASTIM INJ 480 MCG in DEXTROSE 5% IN WATER INJ 50 ML IV SCH ×2 (17:45)
[2017-07-03] MEDS: MELATONIN 5 MG TAB PO PRN (19:50)
[2017-07-03] MEDS ORDERED: SODIUM CHLORIDE 0.9% IV SCH (21:00)
[2017-07-03] MEDS: ALUMINUM/MAGNESIUM/SIMETH 30 ML CUP PO PRN (21:00)
[2017-07-03] MEDS ORDERED: [UNRECOGNIZED DRUG - OTHER] IV SCH (21:00)
[2017-07-04] VITALS (16 sets, daily range): BP systolic 117–169; BP diastolic 62–93; PULSE 50–88; RESP 15–18; TEMP 97.4–98.5; O2SAT 95–98
[2017-07-04] MEDS: DEXT 5%-NACL 0.45% 1000 ML INJ 1,000 ML IV SCH (00:41)
[2017-07-04] MEDS: DEXAMETHASONE IV SCH (00:41)
[2017-07-04] MEDS: GRANISETRON IV SCH (00:41)
[2017-07-04] MEDS: SODIUM CHLORIDE 0.9% IV SCH (00:41)
[2017-07-04] MEDS: CYTARABINE IV SCH (01:30)
[2017-07-04] MEDS: SODIUM CHLORID 0.9% IV SCH (01:30)
[2017-07-04 06:47] LABS: HEMATOCRIT 27.1 % (35.0-46.0); HEMOGLOBIN 9.6 GM/DL (11.6-15.3); MEAN CELL VOLUME 85.1 FL (80.0-100.0); MEAN CORPUSCULAR HEMOGLOBIN 30.1 PG (27.0-34.0); MEAN CORPUSCULAR HGB CONC 35.4 % (32.0-36.0); MEAN PLATELET VOLUME 8.2 FL (7.0-11.0); RED BLOOD COUNT 3.18 MIL/MM3 (4.00-5.30); RED CELL DISTRIBUTION WIDTH 13.7 % (11.6-17.2); WHITE BLOOD COUNT 0.1 TH/MM3 (4.0-11.0)
[2017-07-04 06:57] LABS: PLATELET COUNT 13 TH/MM3 (150-450)
[2017-07-04 07:35] LABS: BICARBONATE 28.3 MEQ/L (21.0-32.0); CALCIUM 8.1 MG/DL (8.5-10.1); CREATININE 0.49 MG/DL (0.50-1.00); MAGNESIUM 2.2 MG/DL (1.5-2.5); PHOSPHORUS 3.5 MG/DL (2.5-4.9)
[2017-07-04] MEDS: predniSONE 5 MG TAB PO SCH (08:33)
[2017-07-04] MEDS: LOSARTAN 50 MG TAB PO SCH (08:33)
[2017-07-04] MEDS: NYSTAT/DIPHENHY/LIDO MOUTHWASH (Adult) 120ML SWISH-SWAL SCH ×4 (08:34→19:43)
--- NOTE | 2017-07-04 09:16 | PD.ONC.PN ---
Subjective Subjective Remarks Afebrile overnight. Patient resting in bed in nad. Feels a bit bloated. states she ate pizza and cheesecake for dinner last night. Objective Data Date Time Temp Pulse Resp B/P (MAP) Pulse Ox O2 Delivery O2 Flow Rate FiO2 07/04/17 08:01 98.5 68 18 117/74 (88) 96 07/04/17 06:00 88 07/04/17 05:00 68 07/04/17 04:00 51 07/04/17 04:00 97.4 62 15 169/79 (109) 97 07/04/17 03:00 56 07/04/17 02:00 56 07/04/17 01:00 60 07/04/17 00:00 98.4 68 16 132/62 (85) 95 07/04/17 00:00 58 07/03/17 23:00 62 07/03/17 22:00 64 07/03/17 21:00 62 07/03/17 20:00 98.8 63 16 130/75 (93) 98 07/03/17 20:00 59 07/03/17 19:00 82 07/03/17 16:55 98.3 63 18 168/98 98 07/03/17 16:55 98.3 63 18 168/88 (114) 98 07/03/17 16:19 48 07/03/17 15:58 59 07/03/17 14:18 98.2 64 18 120/61 98 07/03/17 12:23 98.3 58 18 154/73 97 07/03/17 12:22 98.3 56 18 154/79 (104) 97 07/03/17 11:43 62 07/03/17 10:11 98.0 70 16 96/55 98 07/03/17 09:47 98.4 70 18 109/55 98 07/04/17 07/04/17 07/04/17 07:00 15:00 23:00 Intake Total 1356 ml Output Total 1300 ml Balance 56 ml Result Diagram: 07/04/1760407/04/17 06 Laboratory Results Laboratory Tests Test 07/04/17 06:00 07/04/17 06:05 Blood Urea Nitrogen 16 MG/DL Creatinine 0.49 MG/DL Random Glucose 224 MG/DL Calcium Level 8.1 MG/DL Phosphorus Level 3.5 MG/DL Magnesium Level 2.2 MG/DL Lactate Dehydrogenase 195 U/L Sodium Level 141 MEQ/L Potassium Level 4.4 MEQ/L Chloride Level 108 MEQ/L Carbon Dioxide Level 28.3 MEQ/L Anion Gap 5 MEQ/L Estimat Glomerular Filtration Rate 129 ML/MIN White Blood Count 0.1 TH/MM3 Red Blood Count 3.18 MIL/MM3 Hemoglobin 9.6 GM/DL Hematocrit 27.1 % Mean Corpuscular Volume 85.1 FL Mean Corpuscular Hemoglobin 30.1 PG Mean Corpuscular Hemoglobin Concent 35.4 % Red Cell Distribution Width 13.7 % Platelet Count 13 TH/MM3 Mean Platelet Volume 8.2 FL CBC Comment AUTO DIFF Administered Medications Medications (Trade) Dose Ordered Sig/Zeynep Route PRN Reason Start Time Stop Time Status Last Admin Dose Admin Dextrose/Sodium Chloride 1,000 ml @ 100 mls/hr Q10H IV 06/28/17 14:00 07/04/17 00:41 Carvedilol (Coreg) 3.125 mg DAILY PO 06/29/17 09:00 Future Hold 07/02/17 08:39 Amlodipine Besylate (Norvasc) 5 mg DAILY PO 06/29/17 09:00 Future Hold 07/02/17 08:39 Prednisone (Deltasone) 5 mg DAILY PO 06/29/17 09:00 07/04/17 08:33 Losartan Potassium (Cozaar) 100 mg DAILY PO 06/29/17 09:00 07/04/17 08:33 Al Hydrox/Mg Hydrox/Simethicone (Mag-Al Plus Susp Liq) 15 ml Q6H PRN PO INDIGESTION 06/28/17 20:45 07/03/17 21:00 Sodium Chloride 1,000 ml @ 100 mls/hr Q10H IV 06/29/17 14:30 Future Hold 06/29/17 20:49 Multi-Ingredient Mouthwash/Gargle (Magic Mouthwash Adult Liq) 5 ml QID SWISH-SWAL 06/29/17 13:00 07/04/17 08:34 Diphenhydramine HCl (Benadryl) 25 mg Q6H PRN PO itching 06/30/17 10:45 07/03/17 08:37 Acetaminophen (Tylenol) 650 mg Q4H PRN PO PREMED FOR BLOOD PRODUCTS 07/01/17 10:45 07/03/17 08:37 Melatonin (Melatonin) 5 mg HS PRN PO insomnia 07/02/17 21:00 07/03/17 19:50 Objective Remarks GENERAL: pleasant female, supine in bed resting in nad. SKIN: Warm and dry. HEAD: Normocephalic. +alopecia. EYES: No injection or drainage. NECK: Supple, trachea midline. CARDIOVASCULAR: Regular rate and rhythm RESPIRATORY: Breath sounds equal bilaterally. No accessory muscle use. GASTROINTESTINAL: Abdomen mildly distended, non-tender, +BS EXTREMITIES: No cyanosis NEUROLOGICAL: awake and alert, normal speech. moving extremities. 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 no transfusion. monitor for fever 07/03/17: D6. 2 units pRBC. last day of chemotherapy 07/02/17: D5. 1 unit platelets. continue chemotherapy. 07/01/17: D4. 1 unit platelets. continue chemotherapy. 06/30/17: D3. Tolerating chemo. No transfusion today. 06/29/17: D2, give 2 units pRBC this AM. start chemotherapy this afternoon. 06/28/17: admission, D1 Assessment 57y/o female admitted for salvage chemotherapy with FLAG-AKASH for refractory acute myeloid leukemia. h/o Rheumatoid arthritis. Anxiety disorder. COPD. Depression. Hypercholesterolemia. Hypertension. Irregular heartbeat Plan 1. no transfusion 2. monitor CBC Attending Statement The exam, history, and the medical decision-making described in the above note were completed with the assistance of the mid-level provider. I reviewed and agree with the findings presented. I attest that I had a [id number] encounter with the patient on the same day, and personally performed and documented my assessment and findings in the medical record. relapsed leukemia s/p reinduction with FLAG pancytopenic no blood products today afebrile supportive care d/w rn o/n events reviewed Julianna Mcdaniel Jul 04, 2017 09:16 Godwin Hahn MD Jul 04, 2017 11:38
[2017-07-04 10:26] LABS: LYMPHOCYTES 10 % (9-44); MONOCYTES 20 % (0-8); NEUTROPHIL # MANUAL DIFF 0.1 TH/MM3 (1.8-7.7); POLYS (SEG NEUTROPHILS) 70 % (16-70)
[2017-07-04] MEDS ORDERED: CARBOXYMETHYLCELL SOD 0.5% OPTH SOLN 15 ML BTL EACH EYE PRN (11:30)
[2017-07-04] MEDS: MELATONIN 5 MG TAB PO PRN (19:43)
[2017-07-04] MEDS: ALUMINUM/MAGNESIUM/SIMETH 30 ML CUP PO PRN (19:43)
[2017-07-05] VITALS (28 sets, daily range): BP systolic 118–169; BP diastolic 64–96; PULSE 50–88; RESP 15–18; TEMP 98.1–98.9; O2SAT 16–100
[2017-07-05 04:57] LABS: HEMATOCRIT 22.7 % (35.0-46.0); MEAN CELL VOLUME 84.6 FL (80.0-100.0); MEAN CORPUSCULAR HEMOGLOBIN 29.9 PG (27.0-34.0); MEAN CORPUSCULAR HGB CONC 35.3 % (32.0-36.0); MEAN PLATELET VOLUME 8.4 FL (7.0-11.0); RED BLOOD COUNT 2.68 MIL/MM3 (4.00-5.30); RED CELL DISTRIBUTION WIDTH 13.9 % (11.6-17.2)
[2017-07-05 05:12] LABS: PLATELET COUNT 7 TH/MM3 (150-450)
[2017-07-05 05:21] LABS: BICARBONATE 29.3 MEQ/L (21.0-32.0); CREATININE 0.46 MG/DL (0.50-1.00); MAGNESIUM 2.2 MG/DL (1.5-2.5); PHOSPHORUS 3.6 MG/DL (2.5-4.9)
[2017-07-05] MEDS: LOSARTAN 50 MG TAB PO SCH (08:36)
[2017-07-05] MEDS: predniSONE 5 MG TAB PO SCH (08:36)
[2017-07-05] MEDS: NYSTAT/DIPHENHY/LIDO MOUTHWASH (Adult) 120ML SWISH-SWAL SCH ×4 (08:36→20:51)
[2017-07-05 09:22] LABS: WHITE BLOOD COUNT 0.1 TH/MM3 (4.0-11.0)
[2017-07-05 09:37] LABS: LYMPHOCYTES 50 % (9-44); MONOCYTES 30 % (0-8); POLYS (SEG NEUTROPHILS) 20 % (16-70)
[2017-07-05] MEDS: ONDANSETRON HCL 4 MG/2 ML VIAL IV PUSH PRN (09:55)
--- NOTE | 2017-07-05 10:17 | PD.ONC.PN ---
Subjective Subjective Remarks Afebrile Pt looking forward to taking a shower this am Still has good appetite Some pain at her fingertips but otherwise no acute complaints Objective Data Date Time Temp Pulse Resp B/P (MAP) Pulse Ox O2 Delivery O2 Flow Rate FiO2 07/05/17 08:31 98.1 81 18 169/96 (120) 95 07/05/17 07:00 59 07/05/17 06:00 56 07/05/17 05:00 58 07/05/17 04:00 52 07/05/17 04:00 98.1 63 15 118/64 (82) 16 07/05/17 03:00 50 07/05/17 02:00 56 07/05/17 01:00 62 07/05/17 00:00 98.5 62 16 139/67 (91) 100 07/05/17 00:00 64 07/04/17 23:00 52 07/04/17 22:00 50 07/04/17 21:00 66 07/04/17 20:00 98.2 63 16 130/78 (95) 98 07/04/17 20:00 53 07/04/17 19:00 64 07/04/17 18:19 98.3 73 18 144/93 (110) 97 07/04/17 18:08 60 07/05/17 07/05/17 07/05/17 07:00 15:00 23:00 Intake Total 480 ml Output Total 1100 ml Balance -620 ml Result Diagram: 07/05/17 0415 07/05/17 0415 Laboratory Results Laboratory Tests Test 07/05/17 04:15 White Blood Count 0.1 TH/MM3 Red Blood Count 2.68 MIL/MM3 Hemoglobin 8.0 GM/DL Hematocrit 22.7 % Mean Corpuscular Volume 84.6 FL Mean Corpuscular Hemoglobin 29.9 PG Mean Corpuscular Hemoglobin Concent 35.3 % Red Cell Distribution Width 13.9 % Platelet Count 7 TH/MM3 Mean Platelet Volume 8.4 FL CBC Comment AUTO DIFF Differential Total Cells Counted 10 Neutrophils % (Manual) 20 % Lymphocytes % 50 % Monocytes % 30 % Neutrophils # (Manual) 0.0 TH/MM3 Differential Comment FINAL DIFF MANUAL Platelet Estimate RARE Platelet Morphology Comment NORMAL Ovalocytes Blood Urea Nitrogen 17 MG/DL Creatinine 0.46 MG/DL Random Glucose 111 MG/DL Calcium Level 8.0 MG/DL Phosphorus Level 3.6 MG/DL Magnesium Level 2.2 MG/DL Lactate Dehydrogenase 178 U/L Sodium Level 141 MEQ/L Potassium Level 3.8 MEQ/L Chloride Level 106 MEQ/L Carbon Dioxide Level 29.3 MEQ/L Anion Gap 6 MEQ/L Estimat Glomerular Filtration Rate 139 ML/MIN Administered Medications Medications (Trade) Dose Ordered Sig/Zeynep Route PRN Reason Start Time Stop Time Status Last Admin Dose Admin Carvedilol (Coreg) 3.125 mg DAILY PO 06/29/17 09:00 Future Hold 07/02/17 08:39 Amlodipine Besylate (Norvasc) 5 mg DAILY PO 06/29/17 09:00 Future Hold 07/02/17 08:39 Prednisone (Deltasone) 5 mg DAILY PO 06/29/17 09:00 07/05/17 08:36 Losartan Potassium (Cozaar) 100 mg DAILY PO 06/29/17 09:00 07/05/17 08:36 Al Hydrox/Mg Hydrox/Simethicone (Mag-Al Plus Susp Liq) 15 ml Q6H PRN PO INDIGESTION 06/28/17 20:45 07/04/17 19:43 Multi-Ingredient Mouthwash/Gargle (Magic Mouthwash Adult Liq) 5 ml QID SWISH-SWAL 06/29/17 13:00 07/05/17 08:36 Ondansetron HCl (Zofran Inj) 4 mg Q6HR PRN IV PUSH nausea 06/29/17 10:15 07/05/17 09:55 Diphenhydramine HCl (Benadryl) 25 mg Q6H PRN PO itching 06/30/17 10:45 07/03/17 08:37 Acetaminophen (Tylenol) 650 mg Q4H PRN PO PREMED FOR BLOOD PRODUCTS 07/01/17 10:45 07/03/17 08:37 Melatonin (Melatonin) 5 mg HS PRN PO insomnia 07/02/17 21:00 07/04/17 19:43 Carboxymethylcellulose Sodium (Refresh Tears 0.5% Opth Soln) 1 drop Q6H PRN EACH EYE dry eyes 07/04/17 11:30 07/04/17 19:44 Objective Remarks GENERAL: Middle aged female, resting in bed in no obvious distress. SKIN: Warm and dry. HEAD: Normocephalic. +Alopecia EYES: No injection or drainage. NECK: Supple, trachea midline. CARDIOVASCULAR: Regular rate and rhythm RESPIRATORY: Breath sounds equal bilaterally. No accessory muscle use. GASTROINTESTINAL: Abdomen soft, non-tender, nondistended. EXTREMITIES: No cyanosis NEUROLOGICAL: Awake and alert, normal speech. Moving all extremities. 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 Transfuse 1 unit irradiated platelets today. Start Rydapt 50mg po BID x 14 days. 07/04/17: D7. no transfusion. monitor for fever 07/03/17: D6. 2 units pRBC. last day of chemotherapy 07/02/17: D5. 1 unit platelets. continue chemotherapy. 07/01/17: D4. 1 unit platelets. continue chemotherapy. 06/30/17: D3. Tolerating chemo. No transfusion today. 06/29/17: D2, give 2 units pRBC this AM. start chemotherapy this afternoon. 06/28/17: admission, D1 Assessment 57y/o female admitted for salvage chemotherapy with FLAG-AKASH for refractory acute myeloid leukemia. h/o Rheumatoid arthritis. Anxiety disorder. COPD. Depression. Hypercholesterolemia. Hypertension. Irregular heartbeat Attending Statement The exam, history, and the medical decision-making described in the above note were completed with the assistance of the mid-level provider. I reviewed and agree with the findings presented. I attest that I had a [id number] encounter with the patient on the same day, and personally performed and documented my assessment and findings in the medical record. Pt Is very emotional and crying Feels depressed as her family is arranging end of [facility]. Start Xanax and remeron Plat tx today Start Rydapt today for 2 weeks. Repeat BM bx in 2 weeks. pt has completed chemo on last wednesday. Already bone marrow recovery Amina Castellanos Jul 05, 2017 10:17 April Fonseca MD Jul 05, 2017 21:53
[2017-07-05] MEDS: [UNRECOGNIZED DRUG - OTHER] PO SCH ×2 (11:30→20:51)
[2017-07-05] MEDS: diphenhydrAMINE HCL 25 MG CAP PO PRN (12:21)
[2017-07-05] MEDS: ACETAMINOPHEN 325 MG TAB PO PRN (12:21)
[2017-07-05] MEDS: ALUMINUM/MAGNESIUM/SIMETH 30 ML CUP PO PRN (13:52)
[2017-07-05] MEDS: PROCHLORPERAZINE INJ 10 MG/2 ML VIAL IV PUSH PRN (20:20)
[2017-07-05] MEDS: MELATONIN 5 MG TAB PO PRN (20:51)
[2017-07-05] MEDS ORDERED: MIRTAZAPINE 15 MG TAB PO SCH (22:00)
[2017-07-05] MEDS: ALPRAZolam 0.5 MG TAB PO SCH (22:20)
[2017-07-06] VITALS (33 sets, daily range): BP systolic 94–156; BP diastolic 48–106; PULSE 73–152; RESP 16–22; TEMP 98.7–104; O2SAT 95–99
[2017-07-06] MEDS: ACETAMINOPHEN 325 MG TAB PO PRN ×4 (03:42→20:36)
[2017-07-06] MEDS: ALPRAZolam 0.5 MG TAB PO SCH (05:15)
[2017-07-06] MEDS: PROCHLORPERAZINE INJ 10 MG/2 ML VIAL IV PUSH PRN ×2 (05:55→19:59)
[2017-07-06 06:19] LABS: HEMATOCRIT 27.9 % (35.0-46.0); HEMOGLOBIN 9.9 GM/DL (11.6-15.3); MEAN CELL VOLUME 84.3 FL (80.0-100.0); MEAN CORPUSCULAR HGB CONC 35.6 % (32.0-36.0); MEAN PLATELET VOLUME 6.9 FL (7.0-11.0); PLATELET COUNT 24 TH/MM3 (150-450); RED BLOOD COUNT 3.31 MIL/MM3 (4.00-5.30)
[2017-07-06 06:45] LABS: ALBUMIN 3.2 GM/DL (3.4-5.0); AST (GOT) 31 U/L (15-37); BLOOD UREA NITROGEN 17 MG/DL (7-18); CALCIUM 8.5 MG/DL (8.5-10.1); CHLORIDE 105 MEQ/L (98-107); CREATININE 0.66 MG/DL (0.50-1.00); GLOMERULAR FILTRATION RATE 92 ML/MIN (>89); GLUCOSE,RANDOM 106 MG/DL (74-106); SODIUM (NA) 140 MEQ/L (136-145)
[2017-07-06 06:56] LABS: ALKALINE PHOSPHATASE 68 U/L (45-117); ALT (GPT) 65 U/L (10-53); TOTAL BILIRUBIN ADULT 1.7 MG/DL (0.2-1.0); TOTAL PROTEIN 6.7 GM/DL (6.4-8.2)
[2017-07-06] MEDS: LOSARTAN 50 MG TAB PO SCH (08:29)
[2017-07-06] MEDS: NYSTAT/DIPHENHY/LIDO MOUTHWASH (Adult) 120ML SWISH-SWAL SCH ×4 (08:29→20:40)
[2017-07-06] MEDS: [UNRECOGNIZED DRUG - OTHER] PO SCH ×2 (08:29→20:36)
[2017-07-06] MEDS: predniSONE 5 MG TAB PO SCH (08:29)
[2017-07-06] MEDS: ONDANSETRON HCL 4 MG/2 ML VIAL IV PUSH PRN (08:29)
[2017-07-06] MEDS ORDERED: PIPERACIL-TAZO 4.5 GM PREMIX 100 ML IV SCH (08:30)
[2017-07-06] MEDS: CARVEDILOL 3.125 MG TAB PO SCH (10:01)
[2017-07-06] MEDS: AZTREONAM INJ 2,000 MG in SODIUM CHLORIDE 0.9% INJ 100 ML IV SCH ×2 (10:02→18:12)
--- NOTE | 2017-07-06 10:12 | RADRPT ---
EXAM DATE/TIME: 07/06/2017 09:34 [facility] COMPARISON: CHEST SINGLE AP, June 28, 2017, 14:05. INDICATIONS : Fever. MEDICAL HISTORY : Leukemia. Cervical cancer. SURGICAL HISTORY : Hysterectomy. Cholecystectomy. Colon resection. ENCOUNTER: Subsequent ACUITY: 2 days PAIN SCORE: 2/10 LOCATION: Bilateral chest FINDINGS: Portable AP view of the chest demonstrates cardiac silhouette size at the upper limits for normal. Ri ght chest wall [id number] is present. EKG lines overlie the patient. There is a left basilar pleur al-parenchymal opacity obscuring the peripheral hemidiaphragm. There is mild atelectasis at the right lung base. No pneumothorax is identified. Bones demonstrate no acute finding. CONCLUSION: Stable chest x-ray with nonspecific left basilar pleural-parenchymal opacity. Milad Sanchez MD on July 06, 2017 at 10:10 Board Certified Radiologist. This report was verified electronically.
[2017-07-06 10:25] LABS: LYMPHOCYTES 100 % (9-44)
[2017-07-06 11:03] LABS: BILIRUBIN, URINE NEG (NEG); BLOOD, URINE NEG (NEG); GLUCOSE,URINE NEG (NEG); KETONE, URINE NEG (NEG); MUCUS URINE FEW /lpf (OCC); NITRITE,URINE NEG (NEG); PH, URINE 6.5 (5.0-8.5); SQUAMOUS EPITHELIAL CELL URINE <1 /hpf (0-5); URINE COLOR YELLOW (YELLW/STRAW); URINE LEUKOCYTE ESTERASE NEG (NEG)
[2017-07-06] MEDS: SODIUM CHLOR 0.9% 1000 ML INJ 1,000 ML IV SCH ×2 (12:04→20:41)
--- NOTE | 2017-07-06 13:24 | PD.ONC.PN ---
Subjective Subjective Remarks Tmax 89F this AM. patient doesn't feel well today. she feels short of breath and anxious. she thinks it is the new medicine she started last night. Objective Data Date Time Temp Pulse Resp B/P (MAP) Pulse Ox O2 Delivery O2 Flow Rate FiO2 07/06/17 12:58 101.0 07/06/17 12:00 103.0 114 18 117/60 (79) 98 07/06/17 08:27 99.7 133 18 132/74 (93) 95 07/06/17 07:00 119 07/06/17 06:16 128 07/06/17 05:51 100.7 130 22 132/74 (93) 07/06/17 04:42 16 07/06/17 04:00 93 07/06/17 04:00 100.1 92 20 147/99 (115) 99 07/06/17 03:00 78 07/06/17 02:00 86 07/06/17 01:00 76 07/06/17 00:17 98.7 73 16 110/59 (76) 99 07/06/17 00:02 75 07/05/17 23:15 76 07/05/17 22:00 74 07/05/17 21:00 74 07/05/17 20:00 98.9 70 18 129/77 (94) 95 07/05/17 19:57 76 07/05/17 19:00 74 07/05/17 18:00 88 07/05/17 17:00 60 07/05/17 16:00 68 07/05/17 15:00 74 07/05/17 14:15 98.3 53 18 156/87 98 07/05/17 14:00 52 07/05/17 13:51 98.8 59 18 145/93 98 07/06/17 07/06/17 07/06/17 07:00 15:00 23:00 Intake Total 300 ml Output Total 1100 ml Balance -800 ml Result Diagram: 07/06/17 0550 07/06/17 0550 Laboratory Results Laboratory Tests Test 07/06/17 05:50 07/06/17 06:50 07/06/17 10:15 White Blood Count 0.0 TH/MM3 Red Blood Count 3.31 MIL/MM3 Hemoglobin 9.9 GM/DL Hematocrit 27.9 % Mean Corpuscular Volume 84.3 FL Mean Corpuscular Hemoglobin 30.0 PG Mean Corpuscular Hemoglobin Concent 35.6 % Red Cell Distribution Width 14.0 % Platelet Count 24 TH/MM3 Mean Platelet Volume 6.9 FL CBC Comment AUTO DIFF Differential Total Cells Counted 1 Lymphocytes % 100 % Neutrophils # (Manual) 0.0 TH/MM3 Differential Comment FINAL DIFF MANUAL Platelet Estimate LOW Platelet Morphology Comment NORMAL Blood Urea Nitrogen 17 MG/DL Creatinine 0.66 MG/DL Random Glucose 106 MG/DL Total Protein 6.7 GM/DL Albumin 3.2 GM/DL Calcium Level 8.5 MG/DL Alkaline Phosphatase 68 U/L Aspartate Amino Transf (AST/SGOT) 31 U/L Alanine Aminotransferase (ALT/SGPT) 65 U/L Lactate Dehydrogenase 209 U/L Total Bilirubin 1.7 MG/DL Sodium Level 140 MEQ/L Potassium Level 3.8 MEQ/L Chloride Level 105 MEQ/L Carbon Dioxide Level 27.0 MEQ/L Anion Gap 8 MEQ/L Estimat Glomerular Filtration Rate 92 ML/MIN Lactic Acid Level 2.5 mmol/L Urine Color YELLOW Urine Turbidity CLEAR Urine pH 6.5 Urine Specific [place] 1.017 Urine Protein NEG mg/dL Urine Glucose (UA) NEG mg/dL Urine Ketones NEG mg/dL Urine Occult Blood NEG Urine Nitrite NEG Urine Bilirubin NEG Urine Urobilinogen 2.0 MG/DL Urine Leukocyte Esterase NEG Urine RBC 2 /hpf Urine WBC 1 /hpf Urine Squamous Epithelial Cells <1 /hpf Urine Mucus FEW /lpf Microscopic Urinalysis Comment CULT NOT INDICATED Culture Results Microbiology Date/Time Source Procedure Growth Status 07/06/17 07:51 Blood Peripheral Aerobic Blood Culture Pending Received 07/06/17 07:51 Blood Peripheral Anaerobic Blood Culture Pending Received 07/06/17 06:50 Blood Line Aerobic Blood Culture Pending Received 07/06/17 06:50 Blood Line Anaerobic Blood Culture Pending Received Imaging Studies Last 24 hours Impressions Chest X-Ray 07/06/17 0000 Signed Impressions: Service Date/Time: Thursday, July 06, 2017 09:34 - CONCLUSION: Stable chest x-ray with nonspecific left basilar pleural-parenchymal opacity. Milad Sanchez MD Administered Medications Medications (Trade) Dose Ordered Sig/Zeynep Route PRN Reason Start Time Stop Time Status Last Admin Dose Admin Carvedilol (Coreg) 3.125 mg DAILY PO 06/29/17 09:00 Future hold 07/06/17 10:01 Amlodipine Besylate (Norvasc) 5 mg DAILY PO 06/29/17 09:00 Future Hold 07/02/17 08:39 Prednisone (Deltasone) 5 mg DAILY PO 06/29/17 09:00 07/06/17 08:29 Losartan Potassium (Cozaar) 100 mg DAILY PO 06/29/17 09:00 07/06/17 08:29 Al Hydrox/Mg Hydrox/Simethicone (Mag-Al Plus Susp Liq) 15 ml Q6H PRN PO INDIGESTION 06/28/17 20:45 07/05/17 13:52 Multi-Ingredient Mouthwash/Gargle (Magic Mouthwash Adult Liq) 5 ml QID SWISH-SWAL 06/29/17 13:00 07/06/17 08:29 Ondansetron HCl (Zofran Inj) 4 mg Q6HR PRN IV PUSH nausea 06/29/17 10:15 07/06/17 08:29 Diphenhydramine HCl (Benadryl) 25 mg Q6H PRN PO itching 06/30/17 10:45 07/03/17 08:37 Acetaminophen (Tylenol) 650 mg Q4H PRN PO PREMED FOR BLOOD PRODUCTS 07/01/17 10:45 07/05/17 12:21 Melatonin (Melatonin) 5 mg HS PRN PO insomnia 07/02/17 21:00 07/05/17 20:51 Diphenhydramine HCl (Benadryl) 25 mg Q4H PRN PO SEE LABEL COMMENTS 07/03/17 07:45 07/05/17 12:21 Carboxymethylcellulose Sodium (Refresh Tears 0.5% Opth Soln) 1 drop Q6H PRN EACH EYE dry eyes 07/04/17 11:30 07/04/17 19:44 Patient Own Medication PT OWN MED: RYD... BID PO 07/05/17 11:30 07/18/17 21:01 07/06/17 08:29 Prochlorperazine Edisylate (Compazine Inj) 10 mg Q8H PRN IV PUSH nausea 07/05/17 10:15 07/06/17 05:55 Mirtazapine (Remeron) 15 mg HS PO 07/05/17 22:00 07/05/17 22:20 Aztreonam 2000 mg/ Sodium Chloride 100 ml @ 200 mls/hr Q8H IV 07/06/17 10:00 07/06/17 10:02 Sodium Chloride 1,000 ml @ 100 mls/hr Q10H IV 07/06/17 11:00 07/06/17 12:04 Objective Remarks GENERAL: chronically ill appearing female, sitting up on the side of bed, anxious, tachypneic. SKIN: Warm and dry. HEAD: Normocephalic. +alopecia. EYES: No injection or drainage. NECK: Supple, trachea midline. CARDIOVASCULAR: Regular rate and rhythm RESPIRATORY: Breath sounds equal bilaterally. No accessory muscle use. GASTROINTESTINAL: Abdomen soft, non-tender, non-distended. EXTREMITIES: No cyanosis NEUROLOGICAL: awake, alert. normal speech. 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 no transfusion, spiked fever. start antibiotics, obtain cultures, u/a and chest x-ray. 07/05/17: D8. Transfuse 1 unit irradiated platelets today. Start Rydapt 50mg po BID x 14 days. 07/04/17: D7. no transfusion. monitor for fever 07/03/17: D6. 2 units pRBC. last day of chemotherapy 07/02/17: D5. 1 unit platelets. continue chemotherapy. 07/01/17: D4. 1 unit platelets. continue chemotherapy. 06/30/17: D3. Tolerating chemo. No transfusion today. 06/29/17: D2, give 2 units pRBC this AM. start chemotherapy this afternoon. 06/28/17: admission, D1 (2) Neutropenic fever ICD Codes: D70.9 - Neutropenia, unspecified; R50.81 - Fever presenting with conditions classified elsewhere Status: Acute Plan: --BC pending. --CXR shows left basilar pleural parenchymal density --U/A neg --start Azactam, Vancomycin and Flagyl Assessment 57y/o female admitted for salvage chemotherapy with FLAG-AKASH for refractory acute myeloid leukemia. h/o Rheumatoid arthritis. Anxiety disorder. COPD. Depression. Hypercholesterolemia. Hypertension. Irregular heartbeat Attending Statement The exam, history, and the medical decision-making described in the above note were completed with the assistance of the mid-level provider. I reviewed and agree with the findings presented. I attest that I had a [id number] encounter with the patient on the same day, and personally performed and documented my assessment and findings in the medical record. Does not feel well. Thinks new med ( xanax and remeron) last night was too much. Fever with chills early this morning. Not feeling well at all. BC, UC today. Start empiric A/B Vanco, azactam and flagyl. Change xanax to 0.25 prn Hold Remeron for now. Monitor CBC Julianna Mcdaniel Jul 06, 2017 13:24 April Fonseca MD Jul 06, 2017 14:15
[2017-07-06] MEDS ORDERED: VANCOMYCIN INJ 1,000 MG in SODIUM CHLOR 0.9% 250 ML INJ 250 ML IV ONE (13:30)
[2017-07-06] MEDS ORDERED: Vancomycin Consult Pharmacy 1 EA OTHER SCH (13:30)
[2017-07-06] MEDS: MEPERIDINE HCL 25 MG/ML VIAL IV PUSH PRN (15:07)
[2017-07-06] MEDS: metroNIDAZOLE 500 MG INJ 100 ML IV SCH ×2 (15:08→22:10)
[2017-07-06] MEDS ORDERED: SODIUM CHLOR 0.9% 1000 ML INJ 1,000 ML IV ONE (16:15)
[2017-07-06] MEDS ORDERED: RESP: ALBUTEROL 2.5 MG/IPRATROPIUM 0.5 MG NEB (PRN) NEB (18:00)
[2017-07-07] VITALS (28 sets, daily range): BP systolic 101–144; BP diastolic 51–87; PULSE 62–108; RESP 18–22; TEMP 98.4–99.8; O2SAT 95–98
[2017-07-07] MEDS: AZTREONAM INJ 2,000 MG in SODIUM CHLORIDE 0.9% INJ 100 ML IV SCH ×4 (01:37→21:48)
[2017-07-07] MEDS ORDERED: VANCOMYCIN INJ 1,250 MG in SODIUM CHLOR 0.9% 250 ML INJ 250 ML IV SCH (02:00)
[2017-07-07] MEDS: SODIUM CHLOR 0.9% 1000 ML INJ 1,000 ML IV SCH ×2 (02:20→20:00)
[2017-07-07] MEDS: MEPERIDINE HCL 25 MG/ML VIAL IV PUSH PRN (04:01)
[2017-07-07] MEDS: ACETAMINOPHEN 325 MG TAB PO PRN ×3 (04:01→21:47)
[2017-07-07] MEDS: metroNIDAZOLE 500 MG INJ 100 ML IV SCH (05:35)
[2017-07-07 06:25] LABS: HEMATOCRIT 22.2 % (35.0-46.0); HEMOGLOBIN 7.9 GM/DL (11.6-15.3); MEAN CELL VOLUME 83.5 FL (80.0-100.0); MEAN CORPUSCULAR HEMOGLOBIN 29.6 PG (27.0-34.0); MEAN CORPUSCULAR HGB CONC 35.5 % (32.0-36.0); MEAN PLATELET VOLUME 7.5 FL (7.0-11.0); RED BLOOD COUNT 2.65 MIL/MM3 (4.00-5.30)
[2017-07-07 06:52] LABS: PLATELET COUNT 8 TH/MM3 (150-450)
[2017-07-07 06:57] LABS: ALBUMIN 2.5 GM/DL (3.4-5.0); ALKALINE PHOSPHATASE 56 U/L (45-117); ALT (GPT) 62 U/L (10-53); AST (GOT) 27 U/L (15-37); BICARBONATE 24.7 MEQ/L (21.0-32.0); BLOOD UREA NITROGEN 12 MG/DL (7-18); CALCIUM 7.7 MG/DL (8.5-10.1); CHLORIDE 111 MEQ/L (98-107); GLOMERULAR FILTRATION RATE 126 ML/MIN (>89); GLUCOSE,RANDOM 104 MG/DL (74-106); SODIUM (NA) 142 MEQ/L (136-145); TOTAL BILIRUBIN ADULT 1.5 MG/DL (0.2-1.0); TOTAL PROTEIN 5.5 GM/DL (6.4-8.2)
[2017-07-07] MEDS ORDERED: SODIUM CHLOR 0.9% 250 ML INJ 250 ML IV ONE (08:00)
[2017-07-07 08:06] LABS: LYMPHOCYTES 100 % (9-44)
[2017-07-07] MEDS: PROCHLORPERAZINE INJ 10 MG/2 ML VIAL IV PUSH PRN ×2 (08:27→21:47)
--- NOTE | 2017-07-07 08:43 | PD.ONC.PN ---
Subjective Subjective Remarks tMAX 99.8 overnight. Patient feeling much better today. still achy and with cough, but less sick than yesterday. No vomiting. back feeling better with new eggfoam for bed. Objective Data Date Time Temp Pulse Resp B/P (MAP) Pulse Ox O2 Delivery O2 Flow Rate FiO2 07/07/17 08:19 98.7 87 18 120/87 (98) 96 07/07/17 06:00 108 07/07/17 05:00 98 07/07/17 05:00 18 07/07/17 05:00 18 07/07/17 04:04 99.8 94 22 111/51 (71) 98 07/07/17 04:00 100 07/07/17 03:00 82 07/07/17 02:00 84 07/07/17 01:00 84 07/07/17 00:44 98.6 88 20 101/56 (71) 95 07/06/17 23:03 99 07/06/17 22:00 124 07/06/17 21:00 128 07/06/17 20:01 100.4 110 19 94/55 (68) 97 07/06/17 20:00 104 07/06/17 19:00 92 07/06/17 18:00 96 07/06/17 17:17 100.5 07/06/17 17:00 116 07/06/17 16:24 103.8 07/06/17 16:00 136 07/06/17 15:38 100/48 (65) 07/06/17 15:26 104.0 152 18 156/106 (123) 98 07/06/17 15:00 148 07/06/17 14:45 99.9 143 98 07/06/17 14:00 102 07/06/17 13:00 104 07/06/17 12:58 101.0 07/06/17 12:00 103.0 114 18 117/60 (79) 98 07/06/17 12:00 110 07/06/17 11:00 115 07/06/17 10:00 122 07/06/17 09:00 138 07/07/17 07/07/17 07/07/17 07:00 15:00 23:00 Intake Total 680 ml Output Total 1300 ml Balance -620 ml Result Diagram: 07/07/17 0540 07/07/17 0540 Laboratory Results Laboratory Tests Test 07/06/17 10:15 07/07/17 05:40 Urine Color YELLOW Urine Turbidity CLEAR Urine pH 6.5 Urine Specific [place] 1.017 Urine Protein NEG mg/dL Urine Glucose (UA) NEG mg/dL Urine Ketones NEG mg/dL Urine Occult Blood NEG Urine Nitrite NEG Urine Bilirubin NEG Urine Urobilinogen 2.0 MG/DL Urine Leukocyte Esterase NEG Urine RBC 2 /hpf Urine WBC 1 /hpf Urine Squamous Epithelial Cells <1 /hpf Urine Mucus FEW /lpf Microscopic Urinalysis Comment CULT NOT INDICATED White Blood Count 0.0 TH/MM3 Red Blood Count 2.65 MIL/MM3 Hemoglobin 7.9 GM/DL Hematocrit 22.2 % Mean Corpuscular Volume 83.5 FL Mean Corpuscular Hemoglobin 29.6 PG Mean Corpuscular Hemoglobin Concent 35.5 % Red Cell Distribution Width 14.0 % Platelet Count 8 TH/MM3 Mean Platelet Volume 7.5 FL CBC Comment AUTO DIFF Differential Total Cells Counted 1 Lymphocytes % 100 % Neutrophils # (Manual) 0.0 TH/MM3 Differential Comment FINAL DIFF MANUAL Platelet Estimate RARE Platelet Morphology Comment NORMAL Blood Urea Nitrogen 12 MG/DL Creatinine 0.50 MG/DL Random Glucose 104 MG/DL Total Protein 5.5 GM/DL Albumin 2.5 GM/DL Calcium Level 7.7 MG/DL Alkaline Phosphatase 56 U/L Aspartate Amino Transf (AST/SGOT) 27 U/L Alanine Aminotransferase (ALT/SGPT) 62 U/L Total Bilirubin 1.5 MG/DL Sodium Level 142 MEQ/L Potassium Level 3.8 MEQ/L Chloride Level 111 MEQ/L Carbon Dioxide Level 24.7 MEQ/L Anion Gap 6 MEQ/L Estimat Glomerular Filtration Rate 126 ML/MIN Culture Results Microbiology Date/Time Source Procedure Growth Status 07/06/17 07:51 Blood Peripheral Aerobic Blood Culture Pending Received 07/06/17 07:51 Blood Peripheral Anaerobic Blood Culture Pending Received 07/06/17 06:50 Blood Line Aerobic Blood Culture Pending Received 07/06/17 06:50 Blood Line Anaerobic Blood Culture Pending Received 07/06/17 15:50 Nasal Washing Influenza Types A,B Antigen (LAMAR) - Final NEGATIVE FOR FLU A AND B ANTIGEN.... Complete Administered Medications Medications (Trade) Dose Ordered Sig/Zeynep Route PRN Reason Start Time Stop Time Status Last Admin Dose Admin Carvedilol (Coreg) 3.125 mg DAILY PO 06/29/17 09:00 Future hold 07/06/17 10:01 Amlodipine Besylate (Norvasc) 5 mg DAILY PO 06/29/17 09:00 Future Hold 07/02/17 08:39 Prednisone (Deltasone) 5 mg DAILY PO 06/29/17 09:00 07/06/17 08:29 Losartan Potassium (Cozaar) 100 mg DAILY PO 06/29/17 09:00 07/06/17 08:29 Al Hydrox/Mg Hydrox/Simethicone (Mag-Al Plus Susp Liq) 15 ml Q6H PRN PO INDIGESTION 06/28/17 20:45 07/05/17 13:52 Multi-Ingredient Mouthwash/Gargle (Magic Mouthwash Adult Liq) 5 ml QID SWISH-SWAL 06/29/17 13:00 07/06/17 18:12 Ondansetron HCl (Zofran Inj) 4 mg Q6HR PRN IV PUSH nausea 06/29/17 10:15 07/06/17 08:29 Diphenhydramine HCl (Benadryl) 25 mg Q6H PRN PO itching 06/30/17 10:45 07/03/17 08:37 Acetaminophen (Tylenol) 650 mg Q4H PRN PO fever>100.4 or PREMED 07/01/17 10:45 07/07/17 04:01 Melatonin (Melatonin) 5 mg HS PRN PO insomnia 07/02/17 21:00 07/05/17 20:51 Diphenhydramine HCl (Benadryl) 25 mg Q4H PRN PO SEE LABEL COMMENTS 07/03/17 07:45 07/05/17 12:21 Carboxymethylcellulose Sodium (Refresh Tears 0.5% Opth Soln) 1 drop Q6H PRN EACH EYE dry eyes 07/04/17 11:30 07/04/17 19:44 Patient Own Medication PT OWN MED: RYD... BID PO 07/05/17 11:30 07/18/17 21:01 07/06/17 20:36 Prochlorperazine Edisylate (Compazine Inj) 10 mg Q8H PRN IV PUSH nausea 07/05/17 10:15 07/07/17 08:27 Mirtazapine (Remeron) 15 mg HS PO 07/05/17 22:00 Future Hold 07/05/17 22:20 Aztreonam 2000 mg/ Sodium Chloride 100 ml @ 200 mls/hr Q8H IV 07/06/17 10:00 07/07/17 01:37 Sodium Chloride 1,000 ml @ 100 mls/hr Q10H IV 07/06/17 11:00 07/07/17 02:20 Metronidazole 100 ml @ 100 mls/hr Q8H IV 07/06/17 14:00 07/07/17 05:35 Meperidine HCl (Demerol Inj) 12.5 mg Q3H PRN IV PUSH rigors 07/06/17 14:30 07/08/17 14:29 07/07/17 04:01 Vancomycin HCl 1250 mg/Sodium Chloride 262.5 ml @ 250 mls/hr Q12H IV 07/07/17 02:00 07/07/17 02:19 Objective Remarks GENERAL: chronically ill appearing female, upright on side of bed, appears much more comfortable today and in nad during the interview. SKIN: Warm and dry. HEAD: Normocephalic. +alopecia. EYES: No injection or drainage. NECK: Supple, trachea midline. CARDIOVASCULAR: Regular rate and rhythm RESPIRATORY: Breath sounds equal bilaterally. No accessory muscle use. GASTROINTESTINAL: Abdomen soft, non-tender, non-distended. EXTREMITIES: No cyanosis NEUROLOGICAL: awake and alert. normal speech. moving extremities. 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 give 1 unit pRBC and 1 unit platelets. continue antibiotics. 07/06/17: D9. no transfusion, spiked fever. start antibiotics, obtain cultures, u /a and chest x-ray. 07/05/17: D8. Transfuse 1 unit irradiated platelets today. Start Rydapt 50mg po BID x 14 days. 07/04/17: D7. no transfusion. monitor for fever 07/03/17: D6. 2 units pRBC. last day of chemotherapy 07/02/17: D5. 1 unit platelets. continue chemotherapy. 07/01/17: D4. 1 unit platelets. continue chemotherapy. 06/30/17: D3. Tolerating chemo. No transfusion today. 06/29/17: D2, give 2 units pRBC this AM. start chemotherapy this afternoon. 06/28/17: admission, D1 (2) Neutropenic fever ICD Codes: D70.9 - Neutropenia, unspecified; R50.81 - Fever presenting with conditions classified elsewhere Status: Acute Plan: --BC gram negative rods, Klebsiella Pneumoniae --CXR shows left basilar pleural parenchymal density --U/A neg --ID following, recommends Azactam only. Assessment 57y/o female admitted for salvage chemotherapy with FLAG-AKASH for refractory acute myeloid leukemia. h/o Rheumatoid arthritis. Anxiety disorder. COPD. Depression. Hypercholesterolemia. Hypertension. Irregular heartbeat Attending Statement The exam, history, and the medical decision-making described in the above note were completed with the assistance of the mid-level provider. I reviewed and agree with the findings presented. I attest that I had a [id number]-[id number] encounter with the patient on the same day, and personally performed and documented my assessment and findings in the medical record. Feels better than yesterday. Fever has resolved. BC =++ klebsiella A/B per ID. plat and prbc tx today. await BM recovery. Julianna Mcdaniel Jul 07, 2017 08:43 April Fonseca MD Jul 07, 2017 16:58
[2017-07-07] MEDS: [UNRECOGNIZED DRUG - OTHER] PO SCH ×3 (10:17→21:48)
[2017-07-07] MEDS: NYSTAT/DIPHENHY/LIDO MOUTHWASH (Adult) 120ML SWISH-SWAL SCH ×4 (10:17→21:00)
[2017-07-07] MEDS: CARVEDILOL 3.125 MG TAB PO SCH (10:17)
[2017-07-07] MEDS: predniSONE 5 MG TAB PO SCH (10:18)
[2017-07-07] MEDS: LOSARTAN 50 MG TAB PO SCH (10:18)
[2017-07-07] MEDS: diphenhydrAMINE HCL 25 MG CAP PO PRN (12:55)
--- NOTE | 2017-07-07 12:58 | PD.ID.CON ---
History of Present Illness Service ID Consult Requested By Malissa WEST Reason for Consult bacteremia Primary Care Physician Unknown Diagnoses: History of Present Illness 57 yo female with h/o AML on salvage chemo ANC 100 started to have chills and fevers 3-4 days ago fever 104 on presentation Non localising, denies any abdominal pain, urinary smx Has her baseline dry cough no expectoration PORT was put in 1 yr ago She is on broad sepctrum abx (vanco, azactam, flagyul) and her blood clx are growing 4/4 GNR Sydni reports cefepime allergiy (hives) that happened recently - 2 mos ago she is no longer febrile Review of Systems Except as stated in HPI: all other systems reviewed are Neg Past Family Social History Allergies: Coded Allergies: cefepime (Verified Allergy, Severe, HIVES, 06/25/17) latex (Unverified Allergy, Severe, Rash, 06/25/17) Sulfa (Sulfonamide Antibiotics) (Unverified Adverse Reaction, Severe, Vomiting, cramps, 06/25/17) Past Medical History 1. Rheumatoid arthritis 2. Anxiety disorder 3. COPD 4. Depression 5. Hypercholesterolemia 6. Hypertension 7. Irregular heartbeat Past Surgical History 1. 2. Cholecystectomy 3. Colon resection 4. Complete hysterectomy 5. Spznep-L-[id number] placement 6. Right foot surgery 7. Colonoscopy Active Ordered Medications Medications where reviewed in EMR Antibiotics Include: flagyl azactam vanco - stopped Family History Mother from stroke. Father from aneurysm. The patient does not have any siblings or any sons. She has two daughters, both are alive and well. Social History The patient is . She quit smoking 12 years ago. She used to smoke one pack a day for 30 years. No alcohol history. Physical Exam Vital Signs Vital Signs Date Time Temp Pulse Resp B/P (MAP) Pulse Ox O2 Delivery O2 Flow Rate FiO2 07/07/17 08:19 98.7 87 18 120/87 (98) 96 07/07/17 06:00 108 07/07/17 05:00 98 07/07/17 05:00 18 07/07/17 05:00 18 07/07/17 04:04 99.8 94 22 111/51 (71) 98 07/07/17 04:00 100 07/07/17 03:00 82 07/07/17 02:00 84 07/07/17 01:00 84 07/07/17 00:44 98.6 88 20 101/56 (71) 95 07/06/17 23:03 99 07/06/17 22:00 124 07/06/17 21:00 128 07/06/17 20:01 100.4 110 19 94/55 (68) 97 07/06/17 20:00 104 07/06/17 19:00 92 07/06/17 18:00 96 07/06/17 17:17 100.5 07/06/17 17:00 116 07/06/17 16:24 103.8 07/06/17 16:00 136 07/06/17 15:38 100/48 (65) 07/06/17 15:26 104.0 152 18 156/106 (123) 98 07/06/17 15:00 148 07/06/17 14:45 99.9 143 98 07/06/17 14:00 102 07/06/17 13:00 104 07/06/17 12:58 101.0 Physical Exam CONSTITUTIONAL/GENERAL: This is an adequately nourished patient, in no apparent distress. TUBES/LINES/DRAINS: PORT in place R chest w/o e/o infection SKIN: No jaundice, rashes, or lesions. Skin temperature appropriate. Not diaphoretic. Alopecia HEAD: Atraumatic. Normocephalic. EYES: Pupils equal and round and reactive. Extraocular motions intact. No scleral icterus. No injection or drainage. Fundi not examined. ENT: Hearing grossly normal. Nose without bleeding or purulent drainage. Throat without visible erythema, exudates, masses, or lesions. NECK: Trachea midline. Supple, nontender. CARDIOVASCULAR: Regular rate and rhythm without murmurs, gallops, or rubs. No JVD. Peripheral pulses symmetric. RESPIRATORY/CHEST: Symmetric, unlabored respirations. Clear to auscultation. Breath sounds equal bilaterally. No wheezes, rales, or rhonchi. GASTROINTESTINAL: Abdomen soft, non-tender, nondistended. No hepato-splenomegaly , or palpable masses. No guarding. Bowel sounds present. GENITOURINARY: Without palpable bladder distension. MUSCULOSKELETAL: Extremities without clubbing, cyanosis, or edema. No joint tenderness or effusion noted. No calf tenderness. No mottling or clubbing. NEUROLOGICAL: Awake and alert. Motor and sensory grossly within normal limits. Follows commands. Clear speech . Moves all extremities. PSYCHIATRIC: No obvious anxiety/depression. no apparent hallucinations or other psychotic thought process. Laboratory Laboratory Tests Test 07/07/17 05:40 White Blood Count 0.0 Red Blood Count 2.65 Hemoglobin 7.9 Hematocrit 22.2 Mean Corpuscular Volume 83.5 Mean Corpuscular Hemoglobin 29.6 Mean Corpuscular Hemoglobin Concent 35.5 Red Cell Distribution Width 14.0 Platelet Count 8 Mean Platelet Volume 7.5 CBC Comment AUTO DIFF Differential Total Cells Counted 1 Lymphocytes % 100 Neutrophils # (Manual) 0.0 Differential Comment FINAL DIFF MANUAL Platelet Estimate RARE Platelet Morphology Comment NORMAL Blood Urea Nitrogen 12 Creatinine 0.50 Random Glucose 104 Total Protein 5.5 Albumin 2.5 Calcium Level 7.7 Alkaline Phosphatase 56 Aspartate Amino Transf (AST/SGOT) 27 Alanine Aminotransferase (ALT/SGPT) 62 Total Bilirubin 1.5 Sodium Level 142 Potassium Level 3.8 Chloride Level 111 Carbon Dioxide Level 24.7 Anion Gap 6 Estimat Glomerular Filtration Rate 126 Date/Time Source Procedure Growth Status 07/06/17 07:51 Blood Peripheral Aerobic Blood Culture - Preliminary Gram Negative Taz Resulted 07/06/17 07:51 Anaerobic Blood Culture - Preliminary Gram Negative Taz Resulted 07/06/17 15:50 Nasal Washing Influenza Types A,B Antigen (LAMAR) - Final NEGATIVE FOR FLU A AND B ANTIGEN.... Complete Result Diagram: 07/07/17 0540 07/07/17 0540 Imaging Last Impressions Chest X-Ray 07/06/17 0000 Signed Impressions: Service Date/Time: Thursday, July 06, 2017 09:34 - CONCLUSION: Stable chest x-ray with nonspecific left basilar pleural-parenchymal opacity. Milad Sanchez MD Assessment and Plan Assessment and Plan GNB bacteremia ? source (PORT?) Severely immunocompromised AML sp chemo Neutropennia, neuptropenic fever cont azactam dc vancomycin and flagyl repeat blood clx Discussed Condition With Brittney Shah MD Jul 07, 2017 12:58
[2017-07-07] MEDS: MELATONIN 5 MG TAB PO PRN (21:47)
[2017-07-07] MEDS: guaiFENesin/CODEINE SYRUP 200 MG/20 MG/10 ML CUP PO PRN (21:47)
[2017-07-08] VITALS (12 sets, daily range): BP systolic 108–174; BP diastolic 55–109; PULSE 72–88; RESP 16–20; TEMP 97.7–100.1; O2SAT 94–98
[2017-07-08] MEDS ORDERED: PHARMACY ORDERED LAB ONE (01:45)
[2017-07-08] MEDS: SODIUM CHLOR 0.9% 1000 ML INJ 1,000 ML IV SCH ×2 (03:00→11:12)
[2017-07-08] MEDS: ACETAMINOPHEN 325 MG TAB PO PRN ×2 (04:01→18:29)
[2017-07-08] MEDS: AZTREONAM INJ 2,000 MG in SODIUM CHLORIDE 0.9% INJ 100 ML IV SCH ×4 (04:08→21:37)
[2017-07-08 06:18] LABS: HEMATOCRIT 22.5 % (35.0-46.0); MEAN CELL VOLUME 84.3 FL (80.0-100.0); MEAN CORPUSCULAR HGB CONC 35.5 % (32.0-36.0); MEAN PLATELET VOLUME 7.9 FL (7.0-11.0); RED BLOOD COUNT 2.67 MIL/MM3 (4.00-5.30); RED CELL DISTRIBUTION WIDTH 14.1 % (11.6-17.2)
[2017-07-08 06:26] LABS: PLATELET COUNT 11 TH/MM3 (150-450)
[2017-07-08 06:37] LABS: ALBUMIN 2.6 GM/DL (3.4-5.0); ALT (GPT) 41 U/L (10-53); AST (GOT) 13 U/L (15-37); BICARBONATE 23.4 MEQ/L (21.0-32.0); BLOOD UREA NITROGEN 9 MG/DL (7-18); CHLORIDE 112 MEQ/L (98-107); GLOMERULAR FILTRATION RATE 163 ML/MIN (>89); GLUCOSE,RANDOM 81 MG/DL (74-106); SODIUM (NA) 143 MEQ/L (136-145)
[2017-07-08 06:39] LABS: ALKALINE PHOSPHATASE 57 U/L (45-117); TOTAL BILIRUBIN ADULT 0.9 MG/DL (0.2-1.0); TOTAL PROTEIN 5.7 GM/DL (6.4-8.2)
[2017-07-08] MEDS ORDERED: POTASSIUM CHLORIDE 10 MEQ CONTROLLED RELEASE TAB PO ONE (07:45)
--- NOTE | 2017-07-08 09:17 | PD.ONC.PN ---
Subjective Subjective Remarks Afebrile overnight. Patient resting in bed in nad. Has some watering eyes, nasal congestion and mild headache. No nausea or vomiting. Had three bowel movements yesterday. Objective Data Date Time Temp Pulse Resp B/P (MAP) Pulse Ox O2 Delivery O2 Flow Rate FiO2 07/08/17 08:00 97.7 74 16 142/90 (107) 95 07/08/17 04:11 98.0 88 18 148/84 (105) 94 07/08/17 00:50 98.0 84 18 108/55 (72) 98 07/08/17 00:07 85 07/07/17 20:00 78 07/07/17 19:58 98.5 78 18 144/84 (104) 97 07/07/17 18:00 70 07/07/17 17:00 84 07/07/17 16:00 100 07/07/17 15:45 98.7 83 18 114/62 97 07/07/17 15:35 98.4 76 18 120/68 97 07/07/17 15:00 102 07/07/17 14:20 99.0 07/07/17 14:19 91 18 112/72 96 07/07/17 14:12 98.4 80 18 122/71 (88) 95 07/07/17 14:07 98.4 80 18 122/71 95 07/07/17 14:00 100 07/07/17 13:00 92 07/07/17 12:00 84 07/07/17 11:00 86 07/07/17 10:00 90 07/08/17 07/08/17 07/08/17 07:00 15:00 23:00 Intake Total 100 ml Output Total 400 ml Balance -300 ml Result Diagram: 07/08/17 0400 07/08/17 0400 Laboratory Results Laboratory Tests Test 07/08/17 04:00 White Blood Count 0.0 TH/MM3 Red Blood Count 2.67 MIL/MM3 Hemoglobin 8.0 GM/DL Hematocrit 22.5 % Mean Corpuscular Volume 84.3 FL Mean Corpuscular Hemoglobin 30.0 PG Mean Corpuscular Hemoglobin Concent 35.5 % Red Cell Distribution Width 14.1 % Platelet Count 11 TH/MM3 Mean Platelet Volume 7.9 FL CBC Comment AUTO DIFF Blood Urea Nitrogen 9 MG/DL Creatinine 0.40 MG/DL Random Glucose 81 MG/DL Total Protein 5.7 GM/DL Albumin 2.6 GM/DL Calcium Level 8.0 MG/DL Alkaline Phosphatase 57 U/L Aspartate Amino Transf (AST/SGOT) 13 U/L Alanine Aminotransferase (ALT/SGPT) 41 U/L Total Bilirubin 0.9 MG/DL Sodium Level 143 MEQ/L Potassium Level 3.3 MEQ/L Chloride Level 112 MEQ/L Carbon Dioxide Level 23.4 MEQ/L Anion Gap 8 MEQ/L Estimat Glomerular Filtration Rate 163 ML/MIN Culture Results Microbiology Date/Time Source Procedure Growth Status 07/06/17 07:51 Blood Peripheral Aerobic Blood Culture - Preliminary Gram Negative Taz Resulted 07/06/17 07:51 Anaerobic Blood Culture - Preliminary Gram Negative Taz Resulted 07/06/17 06:50 Blood Line Aerobic Blood Culture - Preliminary Klebsiella Pneumoniae Resulted 07/06/17 06:50 Anaerobic Blood Culture - Preliminary Gram Negative Taz Resulted 07/06/17 15:50 Nasal Washing Influenza Types A,B Antigen (LAMAR) - Final NEGATIVE FOR FLU A AND B ANTIGEN.... Complete Administered Medications Medications (Trade) Dose Ordered Sig/Zeynep Route PRN Reason Start Time Stop Time Status Last Admin Dose Admin Carvedilol (Coreg) 3.125 mg DAILY PO 06/29/17 09:00 Future hold 07/07/17 10:17 Amlodipine Besylate (Norvasc) 5 mg DAILY PO 06/29/17 09:00 Future Hold 07/02/17 08:39 Prednisone (Deltasone) 5 mg DAILY PO 06/29/17 09:00 07/07/17 10:18 Losartan Potassium (Cozaar) 100 mg DAILY PO 06/29/17 09:00 07/07/17 10:18 Al Hydrox/Mg Hydrox/Simethicone (Mag-Al Plus Susp Liq) 15 ml Q6H PRN PO INDIGESTION 06/28/17 20:45 07/05/17 13:52 Multi-Ingredient Mouthwash/Gargle (Magic Mouthwash Adult Liq) 5 ml QID SWISH-SWAL 06/29/17 13:00 07/07/17 18:00 Ondansetron HCl (Zofran Inj) 4 mg Q6HR PRN IV PUSH nausea 06/29/17 10:15 07/06/17 08:29 Diphenhydramine HCl (Benadryl) 25 mg Q6H PRN PO itching 06/30/17 10:45 07/07/17 12:55 Acetaminophen (Tylenol) 650 mg Q4H PRN PO fever>100.4 or PREMED 07/01/17 10:45 07/08/17 04:01 Melatonin (Melatonin) 5 mg HS PRN PO insomnia 07/02/17 21:00 07/07/17 21:47 Diphenhydramine HCl (Benadryl) 25 mg Q4H PRN PO SEE LABEL COMMENTS 07/03/17 07:45 07/05/17 12:21 Carboxymethylcellulose Sodium (Refresh Tears 0.5% Opth Soln) 1 drop Q6H PRN EACH EYE dry eyes 07/04/17 11:30 07/04/17 19:44 Patient Own Medication PT OWN MED: RYD... BID PO 07/05/17 11:30 07/18/17 21:01 07/07/17 21:48 Prochlorperazine Edisylate (Compazine Inj) 10 mg Q8H PRN IV PUSH nausea 07/05/17 10:15 07/07/17 21:47 Mirtazapine (Remeron) 15 mg HS PO 07/05/17 22:00 Future Hold 07/05/17 22:20 Sodium Chloride 1,000 ml @ 100 mls/hr Q10H IV 07/06/17 11:00 07/07/17 20:00 Albuterol/ Ipratropium (Duoneb Neb) 1 ampule Q6HR NEB PRN NEB SHORTNESS OF BREATH 07/06/17 18:00 07/07/17 20:44 Aztreonam 2000 mg/ Sodium Chloride 100 ml @ 200 mls/hr Q6H IV 07/07/17 16:00 07/08/17 04:08 Guaifenesin/ Codeine Phosphate (Robitussin Ac 200-20 Mg/10 ml Liq) 10 ml Q4H PRN PO cough 07/07/17 13:30 07/07/17 21:47 Objective Remarks GENERAL: Middle aged female, sitting up in bed in [facility]. SKIN: Warm and dry. HEAD: Normocephalic. EYES: No injection or drainage. NECK: Supple, trachea midline. CARDIOVASCULAR: Regular rate and rhythm RESPIRATORY: Breath sounds equal bilaterally. No accessory muscle use. GASTROINTESTINAL: Abdomen soft, non-tender, nondistended. EXTREMITIES: No cyanosis, or edema. NEUROLOGICAL: awake and alert, normal speech. moving all extremities. 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 continue antibiotics. monitor for fever 07/07/27: D10. give 1 unit pRBC and 1 unit platelets. continue antibiotics. 07/06/17: D9. no transfusion, spiked fever. start antibiotics, obtain cultures, u /a and chest x-ray. 07/05/17: D8. Transfuse 1 unit irradiated platelets today. Start Rydapt 50mg po BID x 14 days. 07/04/17: D7. no transfusion. monitor for fever 07/03/17: D6. 2 units pRBC. last day of chemotherapy 07/02/17: D5. 1 unit platelets. continue chemotherapy. 07/01/17: D4. 1 unit platelets. continue chemotherapy. 06/30/17: D3. Tolerating chemo. No transfusion today. 06/29/17: D2, give 2 units pRBC this AM. start chemotherapy this afternoon. 06/28/17: admission, D1 (2) Neutropenic fever ICD Codes: D70.9 - Neutropenia, unspecified; R50.81 - Fever presenting with conditions classified elsewhere Status: Acute Plan: --BC gram negative rods, Klebsiella Pneumoniae --CXR shows left basilar pleural parenchymal density --U/A neg --ID following, recommends Azactam only. (3) C. difficile diarrhea ICD Codes: A04.72 - Enterocolitis due to Clostridium difficile, not specified as recurrent Plan: --IV Flagyl started 07/08/17. Assessment 57y/o female admitted for salvage chemotherapy with FLAG-AKASH for refractory acute myeloid leukemia. h/o Rheumatoid arthritis. Anxiety disorder. COPD. Depression. Hypercholesterolemia. Hypertension. Irregular heartbeat Attending Statement The exam, history, and the medical decision-making described in the above note were completed with the assistance of the mid-level provider. I reviewed and agree with the findings presented. I attest that I had a [id number] encounter with the patient on the same day, and personally performed and documented my assessment and findings in the medical record. No more fevers. Feels better. Plat TX today. Continue azactam. Julianna Mcdaniel Jul 08, 2017 09:17 April Fonseca MD Jul 08, 2017 23:32
[2017-07-08] MEDS: predniSONE 5 MG TAB PO SCH (09:30)
[2017-07-08] MEDS: CARVEDILOL 3.125 MG TAB PO SCH (09:31)
[2017-07-08] MEDS: LOSARTAN 50 MG TAB PO SCH (09:31)
[2017-07-08] MEDS: NYSTAT/DIPHENHY/LIDO MOUTHWASH (Adult) 120ML SWISH-SWAL SCH ×4 (09:31→20:44)
[2017-07-08] MEDS: [UNRECOGNIZED DRUG - OTHER] PO SCH ×2 (09:31→20:44)
[2017-07-08] MEDS: PROCHLORPERAZINE INJ 10 MG/2 ML VIAL IV PUSH PRN ×2 (10:15→20:53)
[2017-07-08 10:29] LABS: LYMPHOCYTES 100 % (9-44)
[2017-07-08] MEDS ORDERED: metroNIDAZOLE 500 MG INJ 100 ML IV SCH (14:00)
--- NOTE | 2017-07-08 15:27 | HHI.IDPN ---
Subjective Subjective Remarks pt is c/o diarrhea x 2 days C.diff + , non viruletn strain Noo fever denies abdomen pain Pt was started on Flagyl Antibiotics azactam flagyl Allergies: Coded Allergies: cefepime (Verified Allergy, Severe, HIVES, 06/25/17) latex (Unverified Allergy, Severe, Rash, 06/25/17) Sulfa (Sulfonamide Antibiotics) (Unverified Adverse Reaction, Severe, Vomiting, cramps, 06/25/17) Objective . Vital Signs Date Time Temp Pulse Resp B/P (MAP) Pulse Ox O2 Delivery O2 Flow Rate FiO2 07/08/17 11:18 84 07/08/17 11:11 98.7 84 20 165/96 (119) 96 07/08/17 08:00 97.7 74 16 142/90 (107) 95 07/08/17 04:11 98.0 88 18 148/84 (105) 94 07/08/17 00:50 98.0 84 18 108/55 (72) 98 07/08/17 00:07 85 07/07/17 20:00 78 07/07/17 19:58 98.5 78 18 144/84 (104) 97 07/07/17 18:00 70 07/07/17 17:00 84 07/07/17 16:00 100 07/07/17 15:45 98.7 83 18 114/62 97 07/07/17 15:35 98.4 76 18 120/68 97 07/08/17 07/08/17 07/09/17 15:00 23:00 07:00 Intake Total 1100 ml Balance 1100 ml IV Total 1100 ml . Laboratory Tests Test 07/07/17 05:40 07/08/17 04:00 White Blood Count 0.0 TH/MM3 0.0 TH/MM3 Red Blood Count 2.65 MIL/MM3 2.67 MIL/MM3 Hemoglobin 7.9 GM/DL 8.0 GM/DL Hematocrit 22.2 % 22.5 % Mean Corpuscular Volume 83.5 FL 84.3 FL Mean Corpuscular Hemoglobin 29.6 PG 30.0 PG Mean Corpuscular Hemoglobin Concent 35.5 % 35.5 % Red Cell Distribution Width 14.0 % 14.1 % Platelet Count 8 TH/MM3 11 TH/MM3 Mean Platelet Volume 7.5 FL 7.9 FL CBC Comment AUTO DIFF AUTO DIFF Differential Total Cells Counted 1 1 Lymphocytes % 100 % 100 % Neutrophils # (Manual) 0.0 TH/MM3 0.0 TH/MM3 Differential Comment FINAL DIFF MANUAL FINAL DIFF MANUAL Platelet Estimate RARE RARE Platelet Morphology Comment NORMAL NORMAL Laboratory Tests Test 07/07/17 05:40 07/08/17 04:00 Blood Urea Nitrogen 12 MG/DL 9 MG/DL Creatinine 0.50 MG/DL 0.40 MG/DL Random Glucose 104 MG/DL 81 MG/DL Total Protein 5.5 GM/DL 5.7 GM/DL Albumin 2.5 GM/DL 2.6 GM/DL Calcium Level 7.7 MG/DL 8.0 MG/DL Alkaline Phosphatase 56 U/L 57 U/L Aspartate Amino Transf (AST/SGOT) 27 U/L 13 U/L Alanine Aminotransferase (ALT/SGPT) 62 U/L 41 U/L Total Bilirubin 1.5 MG/DL 0.9 MG/DL Sodium Level 142 MEQ/L 143 MEQ/L Potassium Level 3.8 MEQ/L 3.3 MEQ/L Chloride Level 111 MEQ/L 112 MEQ/L Carbon Dioxide Level 24.7 MEQ/L 23.4 MEQ/L Anion Gap 6 MEQ/L 8 MEQ/L Estimat Glomerular Filtration Rate 126 ML/MIN 163 ML/MIN Microbiology Date/Time Source Procedure Growth Status 07/06/17 07:51 Blood Peripheral Aerobic Blood Culture - Preliminary Gram Negative Taz Resulted 07/06/17 07:51 Anaerobic Blood Culture - Preliminary Gram Negative Taz Resulted 07/06/17 06:50 Blood Line Aerobic Blood Culture - Preliminary Klebsiella Pneumoniae Resulted 07/06/17 06:50 Anaerobic Blood Culture - Preliminary Gram Negative Taz Resulted 07/06/17 15:50 Nasal Washing Influenza Types A,B Antigen (LAMAR) - Final NEGATIVE FOR FLU A AND B ANTIGEN.... Complete Imaging Last Impressions Chest X-Ray 07/06/17 0000 Signed Impressions: Service Date/Time: Thursday, July 06, 2017 09:34 - CONCLUSION: Stable chest x-ray with nonspecific left basilar pleural-parenchymal opacity. Milad Sanchez MD Physical Exam CONSTITUTIONAL/GENERAL: This is an adequately nourished patient, in no apparent distress. TUBES/LINES/DRAINS: PORT in place R chest w/o e/o infection SKIN: No jaundice, rashes, or lesions. Alopecia EYES: Pupils equal and round and reactive. Extraocular motions intact. No scleral icterus. No injection or drainage. Fundi not examined. CARDIOVASCULAR: Regular rate and rhythm without murmurs, gallops, or rubs. No JVD. Peripheral pulses symmetric. RESPIRATORY/CHEST: Symmetric, unlabored respirations. Clear to auscultation. Breath sounds equal bilaterally. No wheezes, rales, or rhonchi. GASTROINTESTINAL: Abdomen soft, non-tender, nondistended. No hepato-splenomegaly , or palpable masses. No guarding. Bowel sounds present. GENITOURINARY: Without palpable bladder distension. MUSCULOSKELETAL: Extremities without clubbing, cyanosis, or edema. No joint tenderness or effusion noted. No calf tenderness. No mottling or clubbing. NEUROLOGICAL: Awake and alert. Motor and sensory grossly within normal limits. Follows commands. Clear speech . Moves all extremities. PSYCHIATRIC: No obvious anxiety/depression. no apparent hallucinations or other psychotic thought process. Kleb pneumo bacteremia ? source (PORT?) Severely immunocompromised AML sp chemo Neutropennia, neuptropenic fever - resolved New issue : C.diff cont azactam start PO vancomycin dc flagyl fu repeat blood clx Assessment & Plan Remarks Kleb pneumo bacteremia ? source (PORT?) Severely immunocompromised AML sp chemo Neutropennia, neuptropenic fever - resolved New issue : C.diff cont azactam start PO vancomycin dc flagyl fu repeat blood clx Brittney Odell MD Jul 08, 2017 15:27
[2017-07-08] MEDS: VANCOMYCIN 25 MG/ML SOLN 100 ML BOTTLE PO SCH ×2 (17:24→21:37)
--- NOTE | 2017-07-08 20:04 | RADRPT ---
EXAM DATE/TIME: 07/08/2017 19:55 [facility] COMPARISON: CT BRAIN W/O CONTRAST, June 04, 2017, 16:02. INDICATIONS : Cephalgia with low platelets. RADIATION DOSE: 38.89 CTDIvol (mGy) MEDICAL HISTORY : Cardiovascular disease. Leukemia. Lupus. SURGICAL HISTORY : None. ENCOUNTER: Initial ACUITY: 1 day PAIN SCALE: 5/10 LOCATION: cranial TECHNIQUE: Multiple contiguous axial images were obtained of the head. Using automated exposure control and adj ustment of the mA and/or kV according to patient size, radiation dose was kept as low as reasonably a chievable to obtain optimal diagnostic quality images. DICOM format image data is available electro nically for review and comparison. FINDINGS: CEREBRUM: The ventricles are normal for age. No evidence of midline shift, mass lesion, hemorrhage or acute in farction. No extra-axial fluid collections are seen. POSTERIOR FOSSA: The cerebellum and brainstem are intact. The 4th ventricle is midline. The cerebellopontine angle i s unremarkable. EXTRACRANIAL: The visualized portion of the orbits is intact. SKULL: The calvaria is intact. No evidence of skull fracture. CONCLUSION: No acute disease. Malcolm Coker MD on July 08, 2017 at 20:02 Board Certified Radiologist. This report was verified electronically.
[2017-07-08] MEDS: amLODIPine BESYLATE 5 MG TAB PO SCH (20:43)
[2017-07-08] MEDS: guaiFENesin/CODEINE SYRUP 200 MG/20 MG/10 ML CUP PO PRN (21:44)
[2017-07-09] VITALS (20 sets, daily range): BP systolic 109–186; BP diastolic 60–95; PULSE 75–96; RESP 16–20; TEMP 98.5–99.7; O2SAT 93–99
[2017-07-09] MEDS: SODIUM CHLOR 0.9% 1000 ML INJ 1,000 ML IV SCH ×3 (01:45→22:09)
[2017-07-09] MEDS: ACETAMINOPHEN 325 MG TAB PO PRN ×2 (02:52→13:36)
[2017-07-09] MEDS: guaiFENesin/CODEINE SYRUP 200 MG/20 MG/10 ML CUP PO PRN ×3 (03:35→22:03)
[2017-07-09] MEDS: VANCOMYCIN 25 MG/ML SOLN 100 ML BOTTLE PO SCH ×4 (03:36→22:06)
[2017-07-09] MEDS: AZTREONAM INJ 2,000 MG in SODIUM CHLORIDE 0.9% INJ 100 ML IV SCH ×4 (03:36→21:57)
[2017-07-09 06:14] LABS: CALCIUM 8.3 MG/DL (8.5-10.1); CREATININE 0.34 MG/DL (0.50-1.00)
[2017-07-09] MEDS: amLODIPine BESYLATE 5 MG TAB PO SCH (09:00)
[2017-07-09] MEDS: NYSTAT/DIPHENHY/LIDO MOUTHWASH (Adult) 120ML SWISH-SWAL SCH ×4 (09:00→22:05)
[2017-07-09] MEDS: predniSONE 5 MG TAB PO SCH (09:00)
[2017-07-09] MEDS: LOSARTAN 50 MG TAB PO SCH (09:00)
[2017-07-09] MEDS: CARVEDILOL 3.125 MG TAB PO SCH (09:00)
[2017-07-09] MEDS: [UNRECOGNIZED DRUG - OTHER] PO SCH ×2 (09:00→22:11)
--- NOTE | 2017-07-09 09:26 | PD.ONC.PN ---
Subjective Subjective Remarks Afebrile overnight. she had an approximately 8-beat run of v-tach overnight. she did not notice any symptoms. back in sinus rhythm today. Patient resting in bed. Had a few loose stools overnight. No other complaints. Feeling well today. Objective Data Date Time Temp Pulse Resp B/P (MAP) Pulse Ox O2 Delivery O2 Flow Rate FiO2 07/09/17 08:06 98.6 80 20 154/87 (109) 95 07/09/17 05:24 76 07/09/17 04:48 75 07/09/17 04:00 99.4 84 18 132/62 (85) 93 07/09/17 01:49 98.5 85 16 109/68 (82) 97 07/09/17 00:45 78 07/09/17 00:00 78 07/08/17 23:45 77 07/08/17 22:45 82 07/08/17 21:45 79 07/08/17 20:45 72 07/08/17 20:45 98.8 72 16 141/84 (103) 96 07/08/17 19:30 76 07/08/17 18:00 100.1 85 18 174/109 (130) 95 167/103 (124) 07/08/17 11:18 84 07/08/17 11:11 98.7 84 20 165/96 (119) 96 07/09/17 07/09/17 07/09/17 07:00 15:00 23:00 Intake Total 1340 ml Output Total 900 ml Balance 440 ml Result Diagram: 07/08/17 0400 07/09/17 0515 Laboratory Results Laboratory Tests Test 07/08/17 10:10 07/09/17 05:15 Stool C. difficile Toxin (PCR) POSITIVE Stl C. difficile Toxin Epiderm 027 PRESUMPTIVE NEGATIVE Blood Urea Nitrogen 9 MG/DL Creatinine 0.34 MG/DL Random Glucose 93 MG/DL Calcium Level 8.3 MG/DL Sodium Level 145 MEQ/L Potassium Level 3.4 MEQ/L Chloride Level 111 MEQ/L Carbon Dioxide Level 25.0 MEQ/L Anion Gap 9 MEQ/L Estimat Glomerular Filtration Rate 197 ML/MIN Culture Results Microbiology Date/Time Source Procedure Growth Status 07/06/17 15:50 Nasal Washing Influenza Types A,B Antigen (LAMAR) - Final NEGATIVE FOR FLU A AND B ANTIGEN.... Complete Administered Medications Medications (Trade) Dose Ordered Sig/Zeynep Route PRN Reason Start Time Stop Time Status Last Admin Dose Admin Carvedilol (Coreg) 3.125 mg DAILY PO 06/29/17 09:00 Future hold 07/08/17 09:31 Prednisone (Deltasone) 5 mg DAILY PO 06/29/17 09:00 07/08/17 09:30 Losartan Potassium (Cozaar) 100 mg DAILY PO 06/29/17 09:00 07/08/17 09:31 Al Hydrox/Mg Hydrox/Simethicone (Mag-Al Plus Susp Liq) 15 ml Q6H PRN PO INDIGESTION 06/28/17 20:45 07/05/17 13:52 Multi-Ingredient Mouthwash/Gargle (Magic Mouthwash Adult Liq) 5 ml QID SWISH-SWAL 06/29/17 13:00 07/08/17 20:44 Ondansetron HCl (Zofran Inj) 4 mg Q6HR PRN IV PUSH nausea 06/29/17 10:15 07/06/17 08:29 Diphenhydramine HCl (Benadryl) 25 mg Q6H PRN PO itching 06/30/17 10:45 07/07/17 12:55 Acetaminophen (Tylenol) 650 mg Q4H PRN PO fever>100.4 or PREMED 07/01/17 10:45 07/09/17 02:52 Melatonin (Melatonin) 5 mg HS PRN PO insomnia 07/02/17 21:00 07/07/17 21:47 Diphenhydramine HCl (Benadryl) 25 mg Q4H PRN PO SEE LABEL COMMENTS 07/03/17 07:45 07/05/17 12:21 Carboxymethylcellulose Sodium (Refresh Tears 0.5% Opth Soln) 1 drop Q6H PRN EACH EYE dry eyes 07/04/17 11:30 07/04/17 19:44 Patient Own Medication PT OWN MED: RYD... BID PO 07/05/17 11:30 07/18/17 21:01 07/08/17 20:44 Prochlorperazine Edisylate (Compazine Inj) 10 mg Q8H PRN IV PUSH nausea 07/05/17 10:15 07/08/17 20:53 Mirtazapine (Remeron) 15 mg HS PO 07/05/17 22:00 Future Hold 07/05/17 22:20 Sodium Chloride 1,000 ml @ 100 mls/hr Q10H IV 07/06/17 11:00 07/09/17 01:45 Albuterol/ Ipratropium (Duoneb Neb) 1 ampule Q6HR NEB PRN NEB SHORTNESS OF BREATH 07/06/17 18:00 07/07/17 20:44 Aztreonam 2000 mg/ Sodium Chloride 100 ml @ 200 mls/hr Q6H IV 07/07/17 16:00 07/09/17 03:36 Guaifenesin/ Codeine Phosphate (Robitussin Ac 200-20 Mg/10 ml Liq) 10 ml Q4H PRN PO cough 07/07/17 13:30 07/09/17 03:35 Vancomycin HCl (Vancomycin 25 Mg/ml Liq) 125 mg Q6H PO 07/08/17 16:00 07/09/17 03:36 Amlodipine Besylate (Norvasc) 5 mg DAILY PO 07/08/17 19:00 07/08/17 20:43 Objective Remarks GENERAL: Middle aged female, upright in bed in [facility]. SKIN: Warm and dry. HEAD: Normocephalic. EYES: No injection or drainage. NECK: Supple, trachea midline. CARDIOVASCULAR: Regular rate and rhythm RESPIRATORY: Breath sounds equal bilaterally. No accessory muscle use. GASTROINTESTINAL: Abdomen soft, non-tender, nondistended. EXTREMITIES: No cyanosis, or edema. NEUROLOGICAL: aox3. normal speech. no obvious focal deficit. 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 hgb 8, platelet count of 7, will transfuse blood and platelets. 07/08/17: D11. continue antibiotics. monitor for fever 07/07/27: D10. give 1 unit pRBC and 1 unit platelets. continue antibiotics. 07/06/17: D9. no transfusion, spiked fever. start antibiotics, obtain cultures, u /a and chest x-ray. 07/05/17: D8. Transfuse 1 unit irradiated platelets today. Start Rydapt 50mg po BID x 14 days. 07/04/17: D7. no transfusion. monitor for fever 07/03/17: D6. 2 units pRBC. last day of chemotherapy 07/02/17: D5. 1 unit platelets. continue chemotherapy. 07/01/17: D4. 1 unit platelets. continue chemotherapy. 06/30/17: D3. Tolerating chemo. No transfusion today. 06/29/17: D2, give 2 units pRBC this AM. start chemotherapy this afternoon. 06/28/17: admission, D1 (2) Neutropenic fever ICD Codes: D70.9 - Neutropenia, unspecified; R50.81 - Fever presenting with conditions classified elsewhere Status: Acute Plan: --BC gram negative rods, Klebsiella Pneumoniae --CXR shows left basilar pleural parenchymal density --U/A neg --ID following, recommends Azactam only. (3) C. difficile diarrhea ICD Codes: A04.72 - Enterocolitis due to Clostridium difficile, not specified as recurrent Plan: --on PO Vanco Assessment 57y/o female admitted for salvage chemotherapy with FLAG-AKASH for refractory acute myeloid leukemia. h/o Rheumatoid arthritis. Anxiety disorder. COPD. Depression. Hypercholesterolemia. Hypertension. Irregular heartbeat Attending Statement The exam, history, and the medical decision-making described in the above note were completed with the assistance of the mid-level provider. I reviewed and agree with the findings presented. I attest that I had a [id number] encounter with the patient on the same day, and personally performed and documented my assessment and findings in the medical record. C/O stiff knees Had good sleep last night Loose BM. Run of V tach last night, Consult cardiology. Plat TX and Prbc tx today. afebrile on Azactam. await BM recovery. Julianna Mcdaniel Jul 09, 2017 09:26 April Fonseca MD Jul 09, 2017 16:17
[2017-07-09 11:02] LABS: EOSINOPHIL % 12.5 % (0.0-4.0); HEMATOCRIT 22.5 % (35.0-46.0); MEAN CELL VOLUME 83.8 FL (80.0-100.0); MEAN CORPUSCULAR HGB CONC 35.8 % (32.0-36.0); MEAN PLATELET VOLUME 7.8 FL (7.0-11.0); MONO % 3.1 % (0.0-8.0); NEUT % 9.4 % (16.0-70.0); RED BLOOD COUNT 2.68 MIL/MM3 (4.00-5.30); RED CELL DISTRIBUTION WIDTH 14.1 % (11.6-17.2)
[2017-07-09 11:18] LABS: CALCIUM 8.5 MG/DL (8.5-10.1); CREATININE 0.35 MG/DL (0.50-1.00)
[2017-07-09 11:26] LABS: PLATELET COUNT 7 TH/MM3 (150-450)
[2017-07-09] MEDS ORDERED: SODIUM CHLOR 0.9% 250 ML INJ 250 ML IV ONE (12:15)
[2017-07-09] MEDS ORDERED: POTASSIUM CHLOR 40 MEQ PREMIX 100 ML IV ONE (12:30)
[2017-07-09 12:50] LABS: LYMPHOCYTES 100 % (9-44)
[2017-07-09] MEDS: diphenhydrAMINE HCL 25 MG CAP PO PRN (13:36)
--- NOTE | 2017-07-09 18:01 | EKG ---
Date Performed: 07/09/2017 Time Performed: 10:37:24 PTAGE: 57 years EKG: Sinus rhythm INCOMPLETE RIGHT BUNDLE BRANCH BLOCK POSSIBLE ANTERIOR MYOCARDIAL INFARCTION , OF INDETERMINATE AGE ABNORMAL ECG PREVIOUS TRACING : 05/30/2017 10.45 Since the prior tracing, there has been no significant lewis DOCTOR: Danika Garrison Interpretating Date/Time 07/09/2017 17:58:56
[2017-07-09] MEDS ORDERED: MAGNESIUM SULFATE 1 GM PREMIX 100 ML IV PRN (19:15)
--- NOTE | 2017-07-09 20:06 | HHI.IDPN ---
Subjective Subjective Remarks Pt seen earlier today - around 3 pm denies abdominal pain, diarrhea improved no fever Antibiotics azactam vanco po Allergies: Coded Allergies: cefepime (Verified Allergy, Severe, HIVES, 06/25/17) latex (Unverified Allergy, Severe, Rash, 06/25/17) Sulfa (Sulfonamide Antibiotics) (Unverified Adverse Reaction, Severe, Vomiting, cramps, 06/25/17) Objective . Vital Signs Date Time Temp Pulse Resp B/P (MAP) Pulse Ox O2 Delivery O2 Flow Rate FiO2 07/09/17 18:14 75 07/09/17 17:12 99.3 82 20 118/81 95 07/09/17 16:46 99.0 79 20 129/79 97 07/09/17 16:00 98.9 84 16 134/60 (84) 93 07/09/17 14:35 99.6 85 20 121/60 95 07/09/17 12:30 94 171/89 (116) 07/09/17 12:03 99.7 96 20 186/95 (125) 99 07/09/17 08:06 98.6 80 20 154/87 (109) 95 07/09/17 05:24 76 07/09/17 04:48 75 07/09/17 04:00 99.4 84 18 132/62 (85) 93 07/09/17 01:49 98.5 85 16 109/68 (82) 97 07/09/17 00:45 78 07/09/17 00:00 78 07/08/17 23:45 77 07/08/17 22:45 82 07/08/17 21:45 79 07/08/17 20:45 72 07/08/17 20:45 98.8 72 16 141/84 (103) 96 07/09/17 07/09/17 07/10/17 15:00 23:00 07:00 Intake Total 1276 ml Balance 1276 ml Intake Oral 980 ml Platelets 296 ml # Voids 4 # Bowel Movements 4 . Laboratory Tests Test 07/08/17 04:00 07/09/17 09:30 White Blood Count 0.0 TH/MM3 0.0 TH/MM3 Red Blood Count 2.67 MIL/MM3 2.68 MIL/MM3 Hemoglobin 8.0 GM/DL 8.0 GM/DL Hematocrit 22.5 % 22.5 % Mean Corpuscular Volume 84.3 FL 83.8 FL Mean Corpuscular Hemoglobin 30.0 PG 30.0 PG Mean Corpuscular Hemoglobin Concent 35.5 % 35.8 % Red Cell Distribution Width 14.1 % 14.1 % Platelet Count 11 TH/MM3 7 TH/MM3 Mean Platelet Volume 7.9 FL 7.8 FL CBC Comment AUTO DIFF AUTO DIFF Differential Total Cells Counted 1 1 Lymphocytes % 100 % 100 % Neutrophils # (Manual) 0.0 TH/MM3 0.0 TH/MM3 Differential Comment FINAL DIFF MANUAL FINAL DIFF MANUAL Platelet Estimate RARE RARE Platelet Morphology Comment NORMAL NORMAL Neutrophils (%) (Auto) 9.4 % Lymphocytes (%) (Auto) 75.0 % Monocytes (%) (Auto) 3.1 % Eosinophils (%) (Auto) 12.5 % Basophils (%) (Auto) 0.0 % Neutrophils # (Auto) 0.0 TH/MM3 Lymphocytes # (Auto) 0.0 TH/MM3 Monocytes # (Auto) 0.0 TH/MM3 Eosinophils # (Auto) 0.0 TH/MM3 Basophils # (Auto) 0.0 TH/MM3 Red Cell Morphology Comment Laboratory Tests Test 07/08/17 04:00 07/09/17 05:15 07/09/17 09:30 Blood Urea Nitrogen 9 MG/DL 9 MG/DL 7 MG/DL Creatinine 0.40 MG/DL 0.34 MG/DL 0.35 MG/DL Random Glucose 81 MG/DL 93 MG/DL 110 MG/DL Total Protein 5.7 GM/DL Albumin 2.6 GM/DL Calcium Level 8.0 MG/DL 8.3 MG/DL 8.5 MG/DL Alkaline Phosphatase 57 U/L Aspartate Amino Transf (AST/SGOT) 13 U/L Alanine Aminotransferase (ALT/SGPT) 41 U/L Total Bilirubin 0.9 MG/DL Sodium Level 143 MEQ/L 145 MEQ/L 144 MEQ/L Potassium Level 3.3 MEQ/L 3.4 MEQ/L 3.2 MEQ/L Chloride Level 112 MEQ/L 111 MEQ/L 110 MEQ/L Carbon Dioxide Level 23.4 MEQ/L 25.0 MEQ/L 25.0 MEQ/L Anion Gap 8 MEQ/L 9 MEQ/L 9 MEQ/L Estimat Glomerular Filtration Rate 163 ML/MIN 197 ML/MIN 191 ML/MIN Microbiology Date/Time Source Procedure Growth Status 07/09/17 10:49 Blood Peripheral Aerobic Blood Culture Pending Received 07/09/17 10:49 Blood Peripheral Anaerobic Blood Culture Pending Received 07/09/17 09:30 Blood Line Aerobic Blood Culture Pending Received 07/09/17 09:30 Blood Line Anaerobic Blood Culture Pending Received Imaging Last Impressions Head CT 07/08/17 0000 Signed Impressions: Service Date/Time: July 19:55 - CONCLUSION: No acute disease. Malcolm Coker MD Chest X-Ray 07/06/17 0000 Signed Impressions: Service Date/Time: Thursday, July 06, 2017 09:34 - CONCLUSION: Stable chest x-ray with nonspecific left basilar pleural-parenchymal opacity. Milad Sanchez MD Physical Exam CONSTITUTIONAL/GENERAL: This is an adequately nourished patient, in no apparent distress. TUBES/LINES/DRAINS: PORT in place R chest w/o e/o infection SKIN: No jaundice, rashes, or lesions. Alopecia EYES: Pupils equal and round and reactive. Extraocular motions intact. No scleral icterus. No injection or drainage. Fundi not examined. CARDIOVASCULAR: Regular rate and rhythm without murmurs, gallops, or rubs. No JVD. Peripheral pulses symmetric. RESPIRATORY/CHEST: Symmetric, unlabored respirations. Clear to auscultation. Breath sounds equal bilaterally. No wheezes, rales, or rhonchi. GASTROINTESTINAL: Abdomen soft, non-tender, nondistended. No hepato-splenomegaly , or palpable masses. No guarding. Bowel sounds present. GENITOURINARY: Without palpable bladder distension. MUSCULOSKELETAL: Extremities without clubbing, cyanosis, or edema. No joint tenderness or effusion noted. No calf tenderness. No mottling or clubbing. NEUROLOGICAL: Awake and alert. Motor and sensory grossly within normal limits. Follows commands. Clear speech . Moves all extremities. PSYCHIATRIC: No obvious anxiety/depression. no apparent hallucinations or other psychotic thought process. Assessment & Plan Remarks Kleb pneumo bacteremia ? source (PORT?) Severely immunocompromised AML sp chemo Neutropennia, neuptropenic fever - resolved - persistent absolute neutropenia C.diff - imprved diarrhea cont azactam x 14 days cont PO vancomycin x 14 days will follow Brittney Odell MD Jul 09, 2017 20:06
[2017-07-09] MEDS: PROCHLORPERAZINE INJ 10 MG/2 ML VIAL IV PUSH PRN (21:56)
--- NOTE | 2017-07-09 23:28 | MB ---
cc: Corby Barker MD DATE OF CONSULT: REASON FOR CONSULTATION: Evaluation of run of V-tach. HISTORY OF PRESENT ILLNESS: I have been consulted on Ashley Arroyo because she had a run of ventricular tachycardia on her telemetry. This was an 8 beat run 07/08 at 2145. 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 The patient has already now had a previous cardiac catheterization by Dr. Tello that did not show any significant coronary artery disease. This catheterization was performed 12/16/2015. The patient does not have any anginal symptoms either. She has also had assessment of her LV function with an echocardiogram 06/30 showing an EF of about 50%. There was mild left ventricular hypertrophy and absence of any valvular heart disease. She has now been in the hospital for some time being treated for leukemia and I was consulted for the arrhythmia. PAST MEDICAL HISTORY: She has a past history of rheumatoid arthritis, anxiety, COPD, hypertension, hyperlipidemia, depression. PAST SURGICAL HISTORY: , cholecystectomy, colon surgery, hysterectomy, Infusaport, right foot surgery, colonoscopy. ALLERGIES: CEFEPIME, ROBAXIN, SULFA. MEDICATIONS: Lists are charted. SOCIAL HISTORY: She is an ex-smoker. FAMILY HISTORY: Positive for father dying of aneurysm, mother dying of stroke. PHYSICAL EXAMINATION: GENERAL: Reveals an obese, pleasant, well-developed white female, alert and oriented in no acute distress. VITAL SIGNS: Blood pressure is 134/60, pulse is 75. HEENT: Unremarkable. NECK: Shows no JVD, no bruits. CHEST: Clear to auscultation. CARDIAC: Shows distant S1, S2, regular rate and rhythm, no murmurs, gallops. ABDOMEN: Soft, nontender. EXTREMITIES: Reveal no peripheral edema. Pulses are intact. LABORATORY DATA: The potassium has been low and she is being repleted. Magnesium level has not been checked. EKG shows sinus rhythm with and incomplete right bundle branch block and poor R wave progression. Poor R wave progression could easily be explained by her obesity. IMPRESSION: Nonsustained episode of ventricular tachycardia that was asymptomatic in the setting of preserved left ventricle function and no evidence of any coronary disease or ischemia. She is at low risk for life threatening ventricular arrhythmias. RECOMMENDATIONS: Try to keep her potassium levels above 4. Try to keep her magnesium levels near 2 or above. I have ordered a magnesium level for tomorrow. I will be available on a p.r.n. basis. If there are any questions, please call me. Corby Barker MD VEW/rt , 07:18 PM , 11:26 PM
[2017-07-10] VITALS (19 sets, daily range): BP systolic 135–170; BP diastolic 72–103; PULSE 75–100; RESP 16; TEMP 98.9–99.8; O2SAT 94–97
[2017-07-10] MEDS: ACETAMINOPHEN 325 MG TAB PO PRN ×2 (00:07→13:55)
[2017-07-10] MEDS: AZTREONAM INJ 2,000 MG in SODIUM CHLORIDE 0.9% INJ 100 ML IV SCH ×3 (03:43→18:05)
[2017-07-10] MEDS: PROCHLORPERAZINE INJ 10 MG/2 ML VIAL IV PUSH PRN ×2 (04:33→20:57)
[2017-07-10] MEDS: VANCOMYCIN 25 MG/ML SOLN 100 ML BOTTLE PO SCH ×4 (04:36→20:53)
[2017-07-10 05:53] LABS: HEMATOCRIT 22.7 % (35.0-46.0); HEMOGLOBIN 7.9 GM/DL (11.6-15.3); MEAN CELL VOLUME 84.4 FL (80.0-100.0); MEAN CORPUSCULAR HEMOGLOBIN 29.5 PG (27.0-34.0); MEAN PLATELET VOLUME 7.5 FL (7.0-11.0); PLATELET COUNT 34 TH/MM3 (150-450); RED BLOOD COUNT 2.69 MIL/MM3 (4.00-5.30); RED CELL DISTRIBUTION WIDTH 13.8 % (11.6-17.2)
[2017-07-10 05:56] LABS: ALBUMIN 2.6 GM/DL (3.4-5.0); BICARBONATE 24.8 MEQ/L (21.0-32.0); CALCIUM 8.6 MG/DL (8.5-10.1); CREATININE 0.43 MG/DL (0.50-1.00); MAGNESIUM 1.9 MG/DL (1.5-2.5)
[2017-07-10 06:01] LABS: DIRECT BILIRUBIN ADULT 0.3 MG/DL (0.0-0.2); INDIRECT BILIRUBIN 0.9 MG/DL (0.0-0.8); TOTAL BILIRUBIN ADULT 1.2 MG/DL (0.2-1.0); TOTAL PROTEIN 5.8 GM/DL (6.4-8.2)
[2017-07-10 07:43] LABS: WHITE BLOOD COUNT 0.1 TH/MM3 (4.0-11.0)
[2017-07-10 07:45] LABS: LYMPHOCYTES 80 % (9-44); POLYS (SEG NEUTROPHILS) 20 % (16-70)
[2017-07-10] MEDS ORDERED: SODIUM CHLOR 0.9% 250 ML INJ 250 ML IV ONE (08:45)
--- NOTE | 2017-07-10 08:56 | PD.ONC.PN ---
Subjective Subjective Remarks Afebrile overnight Reports she slept well Pt reports she has some sores on her tongue Denies chest pain, palpitations or shortness of breath Diarrhea improved Per RN, no new cardiac events overnight Objective Data Date Time Temp Pulse Resp B/P (MAP) Pulse Ox O2 Delivery O2 Flow Rate FiO2 07/10/17 06:00 100 07/10/17 05:00 88 07/10/17 04:16 99.0 87 16 149/72 (97) 96 07/10/17 04:00 82 07/10/17 03:00 81 07/10/17 02:00 88 07/10/17 01:00 96 07/10/17 00:10 99.2 93 16 135/84 (101) 97 07/10/17 00:00 88 07/09/17 23:00 86 07/09/17 22:00 90 07/09/17 21:00 80 07/09/17 20:10 99.0 81 16 156/76 97 07/09/17 20:00 78 07/09/17 19:00 86 07/09/17 18:14 75 07/09/17 17:12 99.3 82 20 118/81 95 07/09/17 16:46 99.0 79 20 129/79 97 07/09/17 16:00 98.9 84 16 134/60 (84) 93 07/09/17 14:35 99.6 85 20 121/60 95 07/09/17 12:30 94 171/89 (116) 07/09/17 12:03 99.7 96 20 186/95 (125) 99 07/10/17 07/10/17 07/10/17 06:59 14:59 22:59 Intake Total 580 ml Balance 580 ml Result Diagram: 07/10/17 0520 07/10/17 0520 Laboratory Results Laboratory Tests Test 07/09/17 09:30 07/10/17 05:20 White Blood Count 0.0 TH/MM3 0.1 TH/MM3 Red Blood Count 2.68 MIL/MM3 2.69 MIL/MM3 Hemoglobin 8.0 GM/DL 7.9 GM/DL Hematocrit 22.5 % 22.7 % Mean Corpuscular Volume 83.8 FL 84.4 FL Mean Corpuscular Hemoglobin 30.0 PG 29.5 PG Mean Corpuscular Hemoglobin Concent 35.8 % 35.0 % Red Cell Distribution Width 14.1 % 13.8 % Platelet Count 7 TH/MM3 34 TH/MM3 Mean Platelet Volume 7.8 FL 7.5 FL Neutrophils (%) (Auto) 9.4 % Lymphocytes (%) (Auto) 75.0 % Monocytes (%) (Auto) 3.1 % Eosinophils (%) (Auto) 12.5 % Basophils (%) (Auto) 0.0 % Neutrophils # (Auto) 0.0 TH/MM3 Lymphocytes # (Auto) 0.0 TH/MM3 Monocytes # (Auto) 0.0 TH/MM3 Eosinophils # (Auto) 0.0 TH/MM3 Basophils # (Auto) 0.0 TH/MM3 CBC Comment AUTO DIFF AUTO DIFF Differential Total Cells Counted 1 10 Lymphocytes % 100 % 80 % Neutrophils # (Manual) 0.0 TH/MM3 0.0 TH/MM3 Differential Comment FINAL DIFF MANUAL FINAL DIFF MANUAL Platelet Estimate RARE LOW Platelet Morphology Comment NORMAL NORMAL Red Cell Morphology Comment Blood Urea Nitrogen 7 MG/DL 9 MG/DL Creatinine 0.35 MG/DL 0.43 MG/DL Random Glucose 110 MG/DL 96 MG/DL Calcium Level 8.5 MG/DL 8.6 MG/DL Sodium Level 144 MEQ/L 142 MEQ/L Potassium Level 3.2 MEQ/L 3.1 MEQ/L Chloride Level 110 MEQ/L 108 MEQ/L Carbon Dioxide Level 25.0 MEQ/L 24.8 MEQ/L Anion Gap 9 MEQ/L 9 MEQ/L Estimat Glomerular Filtration Rate 191 ML/MIN 150 ML/MIN Neutrophils % (Manual) 20 % Total Protein 5.8 GM/DL Albumin 2.6 GM/DL Magnesium Level 1.9 MG/DL Alkaline Phosphatase 61 U/L Aspartate Amino Transf (AST/SGOT) 7 U/L Alanine Aminotransferase (ALT/SGPT) 23 U/L Total Bilirubin 1.2 MG/DL Direct Bilirubin 0.3 MG/DL Indirect Bilirubin 0.9 MG/DL Culture Results Microbiology Date/Time Source Procedure Growth Status 07/09/17 10:49 Blood Peripheral Aerobic Blood Culture Pending Received 07/09/17 10:49 Blood Peripheral Anaerobic Blood Culture Pending Received 07/09/17 09:30 Blood Line Aerobic Blood Culture Pending Received 07/09/17 09:30 Blood Line Anaerobic Blood Culture Pending Received Administered Medications Medications (Trade) Dose Ordered Sig/Zeynep Route PRN Reason Start Time Stop Time Status Last Admin Dose Admin Carvedilol (Coreg) 3.125 mg DAILY PO 06/29/17 09:00 Future hold 07/09/17 09:00 Prednisone (Deltasone) 5 mg DAILY PO 06/29/17 09:00 07/09/17 09:00 Losartan Potassium (Cozaar) 100 mg DAILY PO 06/29/17 09:00 07/09/17 09:00 Al Hydrox/Mg Hydrox/Simethicone (Mag-Al Plus Susp Liq) 15 ml Q6H PRN PO INDIGESTION 06/28/17 20:45 07/05/17 13:52 Multi-Ingredient Mouthwash/Gargle (Magic Mouthwash Adult Liq) 5 ml QID SWISH-SWAL 06/29/17 13:00 07/09/17 22:05 Ondansetron HCl (Zofran Inj) 4 mg Q6HR PRN IV PUSH nausea 06/29/17 10:15 07/06/17 08:29 Diphenhydramine HCl (Benadryl) 25 mg Q6H PRN PO itching 06/30/17 10:45 07/07/17 12:55 Acetaminophen (Tylenol) 650 mg Q4H PRN PO fever>100.4 or PREMED 07/01/17 10:45 07/10/17 00:07 Melatonin (Melatonin) 5 mg HS PRN PO insomnia 07/02/17 21:00 07/07/17 21:47 Carboxymethylcellulose Sodium (Refresh Tears 0.5% Opth Soln) 1 drop Q6H PRN EACH EYE dry eyes 07/04/17 11:30 07/04/17 19:44 Patient Own Medication PT OWN MED: RYD... BID PO 07/05/17 11:30 07/18/17 21:01 07/09/17 22:11 Prochlorperazine Edisylate (Compazine Inj) 10 mg Q8H PRN IV PUSH nausea 07/05/17 10:15 07/10/17 04:33 Mirtazapine (Remeron) 15 mg HS PO 07/05/17 22:00 Future Hold 07/05/17 22:20 Sodium Chloride 1,000 ml @ 100 mls/hr Q10H IV 07/06/17 11:00 07/09/17 22:09 Albuterol/ Ipratropium (Duoneb Neb) 1 ampule Q6HR NEB PRN NEB SHORTNESS OF BREATH 07/06/17 18:00 07/07/17 20:44 Aztreonam 2000 mg/ Sodium Chloride 100 ml @ 200 mls/hr Q6H IV 07/07/17 16:00 07/10/17 03:43 Guaifenesin/ Codeine Phosphate (Robitussin Ac 200-20 Mg/10 ml Liq) 10 ml Q4H PRN PO cough 07/07/17 13:30 07/09/17 22:03 Vancomycin HCl (Vancomycin 25 Mg/ml Liq) 125 mg Q6H PO 07/08/17 16:00 07/10/17 04:36 Amlodipine Besylate (Norvasc) 5 mg DAILY PO 07/08/17 19:00 07/09/17 09:00 Objective Remarks GENERAL: Middle aged female, asleep in bed on approach in no obvious distress SKIN: Warm and dry. Aphthous ulcer noted to tip of tongue HEAD: Normocephalic. +Alopecia EYES: No injection or drainage. NECK: Supple, trachea midline. CARDIOVASCULAR: Regular rate and rhythm RESPIRATORY: Breath sounds equal bilaterally. No accessory muscle use. GASTROINTESTINAL: Abdomen soft, non-tender, nondistended. EXTREMITIES: No cyanosis. No edema NEUROLOGICAL: Awake and alert, normal speech. 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 Transfuse 1 unit irradiated PRBC's. K3.1. Transfuse total of 80 meq's to keep K greater than 4.0 per cardiology recs. Give 400mg magnesium oxide 4 mag level of 1.9 07/09/17: D12. hgb 8, platelet count of 7, will transfuse blood and platelets. 07/08/17: D11. continue antibiotics. monitor for fever 07/07/27: D10. give 1 unit pRBC and 1 unit platelets. continue antibiotics. 07/06/17: D9. no transfusion, spiked fever. start antibiotics, obtain cultures, u /a and chest x-ray. 07/05/17: D8. Transfuse 1 unit irradiated platelets today. Start Rydapt 50mg po BID x 14 days. 07/04/17: D7. no transfusion. monitor for fever 07/03/17: D6. 2 units pRBC. last day of chemotherapy 07/02/17: D5. 1 unit platelets. continue chemotherapy. 07/01/17: D4. 1 unit platelets. continue chemotherapy. 06/30/17: D3. Tolerating chemo. No transfusion today. 06/29/17: D2, give 2 units pRBC this AM. start chemotherapy this afternoon. 06/28/17: admission, D1 (2) Neutropenic fever ICD Codes: D70.9 - Neutropenia, unspecified; R50.81 - Fever presenting with conditions classified elsewhere Status: Acute Plan: --BC gram negative rods, Klebsiella Pneumoniae --CXR shows left basilar pleural parenchymal density --U/A neg --ID following, recommends Azactam only. (3) C. difficile diarrhea ICD Codes: A04.72 - Enterocolitis due to Clostridium difficile, not specified as recurrent Plan: --on PO Vanco Assessment 57y/o female admitted for salvage chemotherapy with FLAG-AKASH for refractory acute myeloid leukemia. h/o Rheumatoid arthritis. Anxiety disorder. COPD. Depression. Hypercholesterolemia. Hypertension. Irregular heartbeat Plan 1. Transfuse packed red blood cells today 2. Per cardiology recommendations to keep potassium greater than 4 and magnesium around 2, will give 80 mEq potassium for level of 3.1. Also give 400 mg magnesium oxide 1 dose for mag level of 1.9. 3. Monitor CBC 4. Continue antibiotics per infectious disease Attending Statement The exam, history, and the medical decision-making described in the above note were completed with the assistance of the mid-level provider. I reviewed and agree with the findings presented. I attest that I had a [id number] encounter with the patient on the same day, and personally performed and documented my assessment and findings in the medical record. Patient seen and examined, vital signs, labs, medications, chemotherapy administration record, microbiology, imaging studies were reviewed. 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 She was initiated on FL AG-AKASH on 06/29/2017. She is on Rydapt the oral FLT-3 inhibitor. She is currently at her lj. She has C. difficile colitis and has been febrile. Blood cultures positive for Klebsiella pneumoniae 4 sets; the organism was pansensitive. Presently on broad-spectrum antibiotics with aztreonam and oral vancomycin. Tmax with past 48 hours was 99.8F. Subjectively; the patient reports feeling reasonably well, she denies chills, difficulty breathing, chest pain, diarrhea or overt bleeding. Her daughters are at bedside, they are visiting from [place]. She is receiving 1 unit packed red blood cells today for hemoglobin of 7.9 g/dL. Disposition: Continue ongoing care. Await count recovery before repeating bone marrow biopsy to assess for residual AML. If her remission is achieved to will be referred back to the [facility] [place] in [place] for evaluation for an allogeneic stem cell transplant. If she has persistent disease she would be candidate for a possible clinical trial versus best supportive care versus additional standard of care palliative treatment interventions. Today she does appear stable. Amina Castellanos Jul 10, 2017 08:56 Gordon Edmond MD Jul 10, 2017 17:22
[2017-07-10] MEDS ORDERED: MAGNESIUM OXIDE 400 MG TAB PO ONE (09:00)
[2017-07-10] MEDS: [UNRECOGNIZED DRUG - OTHER] PO SCH ×2 (09:00→21:17)
[2017-07-10] MEDS: predniSONE 5 MG TAB PO SCH (09:02)
[2017-07-10] MEDS: amLODIPine BESYLATE 5 MG TAB PO SCH (09:02)
[2017-07-10] MEDS: LOSARTAN 50 MG TAB PO SCH (09:02)
[2017-07-10] MEDS: NYSTAT/DIPHENHY/LIDO MOUTHWASH (Adult) 120ML SWISH-SWAL SCH ×4 (09:03→20:56)
[2017-07-10] MEDS: CARVEDILOL 3.125 MG TAB PO SCH (09:04)
[2017-07-10] MEDS: POTASSIUM CHLOR 40 MEQ PREMIX 100 ML IV SCH ×2 (09:18→13:56)
[2017-07-10] MEDS: ONDANSETRON HCL 4 MG/2 ML VIAL IV PUSH PRN (09:33)
[2017-07-10] MEDS: SODIUM CHLOR 0.9% 1000 ML INJ 1,000 ML IV SCH (09:35)
--- NOTE | 2017-07-10 12:07 | HHI.PR ---
Addendum to Inpatient Note Addendum Reason: Additional Documentation Additional Information K+ 3.1 - I have ordered KCL 20meq PO now and BID. Prefer K+ at least 4 to lesaracely arrythCorby Thapa MD Jul 10, 2017 12:07
[2017-07-10] MEDS: POTASSIUM CHLORIDE 20 MEQ CONTROLLED RELEASE TAB PO SCH ×2 (13:55→20:58)
[2017-07-10] MEDS: diphenhydrAMINE HCL 25 MG CAP PO PRN (13:55)
[2017-07-10] MEDS: guaiFENesin/CODEINE SYRUP 200 MG/20 MG/10 ML CUP PO PRN (20:57)
[2017-07-10] MEDS: MELATONIN 5 MG TAB PO PRN (21:00)
[2017-07-11] VITALS (26 sets, daily range): BP systolic 142–177; BP diastolic 76–105; PULSE 84–114; RESP 16–18; TEMP 98.3–100.8; O2SAT 94–96
[2017-07-11] MEDS: SODIUM CHLOR 0.9% 1000 ML INJ 1,000 ML IV SCH ×3 (00:49→14:41)
[2017-07-11] MEDS: AZTREONAM INJ 2,000 MG in SODIUM CHLORIDE 0.9% INJ 100 ML IV SCH ×4 (00:49→17:51)
[2017-07-11] MEDS: ACETAMINOPHEN 325 MG TAB PO PRN ×3 (00:54→16:05)
[2017-07-11] MEDS: VANCOMYCIN 25 MG/ML SOLN 100 ML BOTTLE PO SCH ×4 (04:45→21:05)
[2017-07-11 05:56] LABS: HEMATOCRIT 25.1 % (35.0-46.0); MEAN CELL VOLUME 83.9 FL (80.0-100.0); MEAN CORPUSCULAR HGB CONC 35.7 % (32.0-36.0); MEAN PLATELET VOLUME 7.3 FL (7.0-11.0); PLATELET COUNT 22 TH/MM3 (150-450); RED BLOOD COUNT 2.98 MIL/MM3 (4.00-5.30); RED CELL DISTRIBUTION WIDTH 13.7 % (11.6-17.2)
[2017-07-11 06:18] LABS: ALBUMIN 2.6 GM/DL (3.4-5.0); CALCIUM 8.4 MG/DL (8.5-10.1); CREATININE 0.4 MG/DL (0.50-1.00); DIRECT BILIRUBIN ADULT 0.2 MG/DL (0.0-0.2)
[2017-07-11 06:21] LABS: INDIRECT BILIRUBIN 0.7 MG/DL (0.0-0.8); TOTAL BILIRUBIN ADULT 0.9 MG/DL (0.2-1.0)
[2017-07-11 08:03] LABS: MAGNESIUM 1.9 MG/DL (1.5-2.5)
[2017-07-11 08:15] LABS: LYMPHOCYTES 100 % (9-44)
[2017-07-11] MEDS: predniSONE 5 MG TAB PO SCH (08:49)
[2017-07-11] MEDS: [UNRECOGNIZED DRUG - OTHER] PO SCH ×2 (08:50→21:05)
[2017-07-11] MEDS: CARVEDILOL 3.125 MG TAB PO SCH (08:50)
[2017-07-11] MEDS: LOSARTAN 50 MG TAB PO SCH (08:50)
[2017-07-11] MEDS: amLODIPine BESYLATE 5 MG TAB PO SCH (08:50)
[2017-07-11] MEDS: POTASSIUM CHLORIDE 20 MEQ CONTROLLED RELEASE TAB PO SCH ×2 (08:50→21:04)
[2017-07-11] MEDS: NYSTAT/DIPHENHY/LIDO MOUTHWASH (Adult) 120ML SWISH-SWAL SCH ×4 (08:51→21:05)
[2017-07-11] MEDS: PROCHLORPERAZINE INJ 10 MG/2 ML VIAL IV PUSH PRN ×2 (08:52→21:10)
--- NOTE | 2017-07-11 12:23 | PD.ONC.PN ---
Subjective Subjective Remarks T-max 99.7 overnight Patient reports she developed right sided facial swelling last night She reports this happened in the past and she was instructed to suck on lemon drops Reports her stools are firming No bleeding Had a headache earlier but this is now improved Objective Data Date Time Temp Pulse Resp B/P (MAP) Pulse Ox O2 Delivery O2 Flow Rate FiO2 07/11/17 11:50 98.7 87 16 162/98 (119) 95 07/11/17 08:45 98.7 93 16 142/76 (98) 96 07/11/17 04:41 98.3 95 18 158/81 (106) 94 07/11/17 02:00 96 07/11/17 01:00 98 07/11/17 00:43 99.7 98 142/76 (98) 95 07/11/17 00:08 93 07/10/17 23:00 86 07/10/17 22:00 80 07/10/17 21:09 99.2 87 16 170/89 (116) 94 07/10/17 21:00 78 07/10/17 20:14 75 07/10/17 19:00 82 07/10/17 15:36 98.9 83 16 139/92 (108) 95 07/10/17 15:04 99.3 91 16 144/95 96 07/11/17 07/11/17 07/11/17 07:00 15:00 23:00 Intake Total 1220 ml Balance 1220 ml Result Diagram: 07/11/17 0450 07/11/17 0450 Laboratory Results Laboratory Tests Test 07/10/17 21:18 07/11/17 04:50 Potassium Level 4.0 MEQ/L 3.9 MEQ/L White Blood Count 0.0 TH/MM3 Red Blood Count 2.98 MIL/MM3 Hemoglobin 9.0 GM/DL Hematocrit 25.1 % Mean Corpuscular Volume 83.9 FL Mean Corpuscular Hemoglobin 30.0 PG Mean Corpuscular Hemoglobin Concent 35.7 % Red Cell Distribution Width 13.7 % Platelet Count 22 TH/MM3 Mean Platelet Volume 7.3 FL CBC Comment AUTO DIFF Differential Total Cells Counted 4 Lymphocytes % 100 % Neutrophils # (Manual) 0.0 TH/MM3 Differential Comment FINAL DIFF MANUAL Platelet Estimate RARE Platelet Morphology Comment NORMAL Red Cell Morphology Comment NORMAL Blood Urea Nitrogen 9 MG/DL Creatinine 0.40 MG/DL Random Glucose 108 MG/DL Total Protein 6.0 GM/DL Albumin 2.6 GM/DL Calcium Level 8.4 MG/DL Magnesium Level 1.9 MG/DL Alkaline Phosphatase 56 U/L Aspartate Amino Transf (AST/SGOT) 10 U/L Alanine Aminotransferase (ALT/SGPT) 19 U/L Total Bilirubin 0.9 MG/DL Direct Bilirubin 0.2 MG/DL Sodium Level 142 MEQ/L Chloride Level 108 MEQ/L Carbon Dioxide Level 27.0 MEQ/L Anion Gap 7 MEQ/L Estimat Glomerular Filtration Rate 163 ML/MIN Indirect Bilirubin 0.7 MG/DL Culture Results Microbiology Date/Time Source Procedure Growth Status 07/09/17 10:49 Blood Peripheral Aerobic Blood Culture - Preliminary NO GROWTH IN 2 DAYS Resulted 07/09/17 10:49 Blood Peripheral Anaerobic Blood Culture - Preliminary NO GROWTH IN 2 DAYS Resulted 07/09/17 09:30 Blood Line Aerobic Blood Culture - Preliminary NO GROWTH IN 2 DAYS Resulted 07/09/17 09:30 Blood Line Anaerobic Blood Culture - Preliminary NO GROWTH IN 2 DAYS Resulted Administered Medications Medications (Trade) Dose Ordered Sig/Zeynep Route PRN Reason Start Time Stop Time Status Last Admin Dose Admin Carvedilol (Coreg) 3.125 mg DAILY PO 06/29/17 09:00 Future hold 07/11/17 08:50 Prednisone (Deltasone) 5 mg DAILY PO 06/29/17 09:00 07/11/17 08:49 Losartan Potassium (Cozaar) 100 mg DAILY PO 06/29/17 09:00 07/11/17 08:50 Al Hydrox/Mg Hydrox/Simethicone (Mag-Al Plus Susp Liq) 15 ml Q6H PRN PO INDIGESTION 06/28/17 20:45 07/05/17 13:52 Multi-Ingredient Mouthwash/Gargle (Magic Mouthwash Adult Liq) 5 ml QID SWISH-SWAL 06/29/17 13:00 07/11/17 08:51 Ondansetron HCl (Zofran Inj) 4 mg Q6HR PRN IV PUSH nausea 06/29/17 10:15 07/10/17 09:33 Diphenhydramine HCl (Benadryl) 25 mg Q6H PRN PO itching 06/30/17 10:45 07/07/17 12:55 Acetaminophen (Tylenol) 650 mg Q4H PRN PO fever>100.4 or PREMED 07/01/17 10:45 07/11/17 07:22 Melatonin (Melatonin) 5 mg HS PRN PO insomnia 07/02/17 21:00 07/10/17 21:00 Carboxymethylcellulose Sodium (Refresh Tears 0.5% Opth Soln) 1 drop Q6H PRN EACH EYE dry eyes 07/04/17 11:30 07/04/17 19:44 Patient Own Medication PT OWN MED: RYD... BID PO 07/05/17 11:30 07/18/17 21:01 07/11/17 08:50 Prochlorperazine Edisylate (Compazine Inj) 10 mg Q8H PRN IV PUSH nausea 07/05/17 10:15 07/11/17 08:52 Mirtazapine (Remeron) 15 mg HS PO 07/05/17 22:00 Future Hold 07/05/17 22:20 Sodium Chloride 1,000 ml @ 100 mls/hr Q10H IV 07/06/17 11:00 07/11/17 00:49 Albuterol/ Ipratropium (Duoneb Neb) 1 ampule Q6HR NEB PRN NEB SHORTNESS OF BREATH 07/06/17 18:00 07/07/17 20:44 Guaifenesin/ Codeine Phosphate (Robitussin Ac 200-20 Mg/10 ml Liq) 10 ml Q4H PRN PO cough 07/07/17 13:30 07/10/17 20:57 Vancomycin HCl (Vancomycin 25 Mg/ml Liq) 125 mg Q6H PO 07/08/17 16:00 07/11/17 11:28 Amlodipine Besylate (Norvasc) 5 mg DAILY PO 07/08/17 19:00 07/11/17 08:50 Diphenhydramine HCl (Benadryl) 25 mg Q4H PRN PO SEE LABEL COMMENTS 07/10/17 08:45 07/10/17 13:55 Potassium Chloride (KCl) 20 meq Q12HR PO 07/10/17 12:15 07/11/17 08:50 Aztreonam 2000 mg/ Sodium Chloride 100 ml @ 200 mls/hr Q6H IV 07/11/17 00:00 07/11/17 11:28 Objective Remarks GENERAL: Middle aged female upright in bed in no distress SKIN: Warm and dry. Aphthous ulcer noted to tip of tongue HEAD: Normocephalic. +Alopecia. Right-sided facial swelling EYES: No injection or drainage. NECK: Supple, trachea midline. CARDIOVASCULAR: Regular rate and rhythm RESPIRATORY: Breath sounds equal bilaterally. No accessory muscle use. GASTROINTESTINAL: Abdomen soft, non-tender, nondistended. EXTREMITIES: No cyanosis. No edema NEUROLOGICAL: Awake and alert, normal speech. 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 Patient with right-sided facial swelling 07/10/17: D13 Hgb 7.9. Transfuse 1 unit irradiated PRBC's. K3.1. Transfuse total of 80 meq's to keep K greater than 4.0 per cardiology recs. Give 400mg magnesium oxide 4 mag level of 1.9 07/09/17: D12. hgb 8, platelet count of 7, will transfuse blood and platelets. 07/08/17: D11. continue antibiotics. monitor for fever 07/07/27: D10. give 1 unit pRBC and 1 unit platelets. continue antibiotics. 07/06/17: D9. no transfusion, spiked fever. start antibiotics, obtain cultures, u /a and chest x-ray. 07/05/17: D8. Transfuse 1 unit irradiated platelets today. Start Rydapt 50mg po BID x 14 days. 07/04/17: D7. no transfusion. monitor for fever 07/03/17: D6. 2 units pRBC. last day of chemotherapy 07/02/17: D5. 1 unit platelets. continue chemotherapy. 07/01/17: D4. 1 unit platelets. continue chemotherapy. 06/30/17: D3. Tolerating chemo. No transfusion today. 06/29/17: D2, give 2 units pRBC this AM. start chemotherapy this afternoon. 06/28/17: admission, D1 (2) Neutropenic fever ICD Codes: D70.9 - Neutropenia, unspecified; R50.81 - Fever presenting with conditions classified elsewhere Status: Acute Plan: --BC gram negative rods, Klebsiella Pneumoniae --CXR shows left basilar pleural parenchymal density --U/A neg --ID following, recommends Azactam only. (3) C. difficile diarrhea ICD Codes: A04.72 - Enterocolitis due to Clostridium difficile, not specified as recurrent Plan: --on PO Vanco Assessment 57y/o female admitted for salvage chemotherapy with FLAG-AKASH for refractory acute myeloid leukemia. h/o Rheumatoid arthritis. Anxiety disorder. COPD. Depression. Hypercholesterolemia. Hypertension. Irregular heartbeat Plan 1. Patient with right-sided facial swelling; obtain facial MRI to evaluate for infectious process; discussed with Dr. Amador 2. Monitor CBC and electrolytes; no transfusion needed today Attending Statement The exam, history, and the medical decision-making described in the above note were completed with the assistance of the mid-level provider. I reviewed and agree with the findings presented. I attest that I had a [id number] encounter with the patient on the same day, and personally performed and documented my assessment and findings in the medical record. Patient seen and examined, vital signs, labs, medications reviewed. At present she has a temperature of 100.8F. Patient reports swelling and pain along the right side of her face. She declines MRI because of claustrophobia. She tells me she is using lemon drops candy and massaging the right side of her face, she will also use ice packs. The fever was reported to infectious diseases. Stat blood cultures have been ordered, 1 set from the port and 1 set peripheral draw. The patient will be dosed with intravenous antibiotics immediately after the cultures are drawn. Urine cultures also been ordered. Patient reports new sore along the angle of her jaw/lip. This is new from this morning. She will be started on acyclovir for possible herpes reactivation. Continue ongoing care and close monitoring. Amina Castellanos Jul 11, 2017 12:23 Gordon Edmond MD Jul 11, 2017 16:25
--- NOTE | 2017-07-11 12:43 | HHI.IDPN ---
Subjective Subjective Remarks ID Xcover for . 57 yo female with h/o AML on salvage chemo ANC 100 started to have chills and fevers 3-4 days ago fever 104 on presentation Non localizing, denies any abdominal pain, urinary smx Has her baseline dry cough no expectoration PORT was put in 1 yr ago She is on broad spectrum abx (vanco, azactam, flagyl) and her blood clx are growing 4/4 GNR she reports cefepime allergy (hives) that happened recently - 2 mos ago denies abdominal pain, diarrhea improved no fever No rash Cdiff positive, stool more formed. Reports right side facial swelling: has h/o prior episode. Reports feels better with sucking on lemon drops. Antibiotics azactam vanco po Lines Line sites with no e.o infection Port site ok. Past Medical History Past h/o Kleb pneumo bacteremia in May 2017. Allergies: Coded Allergies: cefepime (Verified Allergy, Severe, HIVES, 06/25/17) latex (Unverified Allergy, Severe, Rash, 06/25/17) Sulfa (Sulfonamide Antibiotics) (Unverified Adverse Reaction, Severe, Vomiting, cramps, 06/25/17) Objective . Vital Signs Date Time Temp Pulse Resp B/P (MAP) Pulse Ox O2 Delivery O2 Flow Rate FiO2 07/11/17 11:50 98.7 87 16 162/98 (119) 95 07/11/17 08:45 98.7 93 16 142/76 (98) 96 07/11/17 04:41 98.3 95 18 158/81 (106) 94 07/11/17 02:00 96 07/11/17 01:00 98 07/11/17 00:43 99.7 98 142/76 (98) 95 07/11/17 00:08 93 07/10/17 23:00 86 07/10/17 22:00 80 07/10/17 21:09 99.2 87 16 170/89 (116) 94 07/10/17 21:00 78 07/10/17 20:14 75 07/10/17 19:00 82 07/10/17 15:36 98.9 83 16 139/92 (108) 95 07/10/17 15:04 99.3 91 16 144/95 96 . Laboratory Tests Test 07/10/17 05:20 07/11/17 04:50 White Blood Count 0.1 TH/MM3 0.0 TH/MM3 Red Blood Count 2.69 MIL/MM3 2.98 MIL/MM3 Hemoglobin 7.9 GM/DL 9.0 GM/DL Hematocrit 22.7 % 25.1 % Mean Corpuscular Volume 84.4 FL 83.9 FL Mean Corpuscular Hemoglobin 29.5 PG 30.0 PG Mean Corpuscular Hemoglobin Concent 35.0 % 35.7 % Red Cell Distribution Width 13.8 % 13.7 % Platelet Count 34 TH/MM3 22 TH/MM3 Mean Platelet Volume 7.5 FL 7.3 FL CBC Comment AUTO DIFF AUTO DIFF Differential Total Cells Counted 10 4 Neutrophils % (Manual) 20 % Lymphocytes % 80 % 100 % Neutrophils # (Manual) 0.0 TH/MM3 0.0 TH/MM3 Differential Comment FINAL DIFF MANUAL FINAL DIFF MANUAL Platelet Estimate LOW RARE Platelet Morphology Comment NORMAL NORMAL Red Cell Morphology Comment NORMAL Laboratory Tests Test 07/10/17 05:20 07/10/17 21:18 07/11/17 04:50 Blood Urea Nitrogen 9 MG/DL 9 MG/DL Creatinine 0.43 MG/DL 0.40 MG/DL Random Glucose 96 MG/DL 108 MG/DL Total Protein 5.8 GM/DL 6.0 GM/DL Albumin 2.6 GM/DL 2.6 GM/DL Calcium Level 8.6 MG/DL 8.4 MG/DL Magnesium Level 1.9 MG/DL 1.9 MG/DL Alkaline Phosphatase 61 U/L 56 U/L Aspartate Amino Transf (AST/SGOT) 7 U/L 10 U/L Alanine Aminotransferase (ALT/SGPT) 23 U/L 19 U/L Total Bilirubin 1.2 MG/DL 0.9 MG/DL Direct Bilirubin 0.3 MG/DL 0.2 MG/DL Sodium Level 142 MEQ/L 142 MEQ/L Potassium Level 3.1 MEQ/L 4.0 MEQ/L 3.9 MEQ/L Chloride Level 108 MEQ/L 108 MEQ/L Carbon Dioxide Level 24.8 MEQ/L 27.0 MEQ/L Anion Gap 9 MEQ/L 7 MEQ/L Estimat Glomerular Filtration Rate 150 ML/MIN 163 ML/MIN Indirect Bilirubin 0.9 MG/DL 0.7 MG/DL Microbiology Date/Time Source Procedure Growth Status 07/09/17 10:49 Blood Peripheral Aerobic Blood Culture - Preliminary NO GROWTH IN 2 DAYS Resulted 07/09/17 10:49 Blood Peripheral Anaerobic Blood Culture - Preliminary NO GROWTH IN 2 DAYS Resulted 07/09/17 09:30 Blood Line Aerobic Blood Culture - Preliminary NO GROWTH IN 2 DAYS Resulted 07/09/17 09:30 Blood Line Anaerobic Blood Culture - Preliminary NO GROWTH IN 2 DAYS Resulted Imaging Last Impressions Head CT 07/08/17 0000 Signed Impressions: Service Date/Time: July 19:55 - CONCLUSION: No acute disease. Malcolm Coker MD Chest X-Ray 07/06/17 0000 Signed Impressions: Service Date/Time: Thursday, July 06, 2017 09:34 - CONCLUSION: Stable chest x-ray with nonspecific left basilar pleural-parenchymal opacity. Milad Sanchez MD Physical Exam CONSTITUTIONAL/GENERAL: This is an adequately nourished patient, in no apparent distress. TUBES/LINES/DRAINS: PORT in place R chest w/o e/o infection SKIN: No jaundice, rashes, or lesions. Alopecia EYES: Pupils equal and round and reactive. Extraocular motions intact. No scleral icterus. No injection or drainage. Fundi not examined. CARDIOVASCULAR: Regular rate and rhythm without murmurs, gallops, or rubs. No JVD. Peripheral pulses symmetric. RESPIRATORY/CHEST: Symmetric, unlabored respirations. Clear to auscultation. Breath sounds equal bilaterally. No wheezes, rales, or rhonchi. GASTROINTESTINAL: Abdomen soft, non-tender, nondistended. GENITOURINARY: Without palpable bladder distension. MUSCULOSKELETAL: Extremities without clubbing, cyanosis, or edema. NEUROLOGICAL: Awake and alert. Motor and sensory grossly within normal limits. Follows commands. Clear speech . Moves all extremities. PSYCHIATRIC: Cooperative Port site ok. Assessment & Plan Remarks Sepsis in an Immune compromised host. New fevers ? new infection. Kleb pneumo bacteremia ? source (PORT?) This appears recurrent similar Kleb pneumo bacteremia in May 2017. Sialoadenitis/Parotitis. Cold sore ? HSV Possible line infection Severely immunocompromised, neutropenic. AML sp chemo Neutropenia, neutropenic fever - resolved - persistent absolute neutropenia C.diff - improved diarrhea Recs: cont azactam IV (for Kleb pneumo) cont PO vancomycin (for Cdiff) start flagyl oral (for anaerobes for mouth jeromy given concern for sialoadenitis ) One time Vanco IV dose for possible new bacteremia given new fevers. Start oral acyclovir. Consider Pilocarpine for anticholinergic effect of increasing salivary secretions if parotid swelling does not go down. Also consider ENT consult and imaging if fevers and swelling persist. Further dosing to be decided by on follow up. 2D ECHO no vegetations Blood cultures x 2 Doppler UE neck to look for e/o septic thrombophlebitis. Kleb pneumo appears to be recurrent: May 2017 kleb pneumo. Consider port removal if persistent fevers and or evidence of septic thrombophlebitis. melvi Isabel: concern for port infection, sialoadenitis and parotitis as possible sources of infection. to resume care in . Barbara Amador MD Jul 11, 2017 12:43
[2017-07-11] MEDS: MAGNESIUM OXIDE 400 MG TAB PO SCH (13:06)
[2017-07-11] MEDS ORDERED: VANCOMYCIN INJ 1,300 MG in SODIUM CHLORID 0.9% 500 ML INJ 500 ML IV ONE (16:15)
--- NOTE | 2017-07-11 16:49 | RADRPT ---
EXAM DATE/TIME: 07/11/2017 16:26 [facility] COMPARISON: CHEST SINGLE AP, July 06, 2017, 9:34. INDICATIONS : Pneumonia MEDICAL HISTORY : Leukemia. Cervical cancer SURGICAL HISTORY : Hysterectomy. Cholecystectomy. Colon resection ENCOUNTER: Subsequent ACUITY: 4 - 6 days PAIN SCORE: 0/10 LOCATION: chest FINDINGS: A single view of the chest demonstrates a right [id number]-[id number] in superior vena cava. Cardiomegaly. Mi ld basilar airspace disease improved on the left from July 06. No significant effusion. No pneumo thorax. CONCLUSION: 1. Improvement in left basilar airspace disease since July 06. Cardiomegaly. No significant effus ion. Jacinto Tello MD on July 11, 2017 at 16:45 Board Certified Radiologist. This report was verified electronically.
[2017-07-11] MEDS ORDERED: ACYCLOVIR 200 MG CAP PO SCH (17:00)
--- NOTE | 2017-07-11 17:32 | RADRPT ---
EXAM DATE/TIME: 07/11/2017 16:40 [facility] COMPARISON: No previous studies available for comparison. INDICATIONS : Septic thrombophlebitis MEDICAL HISTORY : Hypercholesterolemia. Hypertension. Chronic obstructive pulmonary disease. Glasses. Coronary artery d isease. Chest pain. Asthma. Sleep apnea. Dyspnea. Gastroesophageal reflux disease. Cervical cancer. A rthritis. Anxiety. Leukemia. SURGICAL HISTORY : Tonsillectomy. Cholecystectomy. Tubal ligation. Bilateral lasik surgery. Nasal surgery. Cardiac cath eterization. Leep procedure. Hysterectomy. ENCOUNTER: Initial ACUITY: 1 day PAIN SCORE: 2/10 LOCATION: Right arm. FINDINGS: There is spontaneous flow documented in the brachial, basilic, cephalic, axillary, and subclavian vei ns. The vessels are compressible and augmentation response is documented. No filling defects are se en. The flow is phasic with respiration. Direction of flow in the jugular vein is caudal. CONCLUSION: Normal examination. Mt Vance MD on July 11, 2017 at 17:30 Board Certified Radiologist. This report was verified electronically.
[2017-07-11] MEDS: metroNIDAZOLE 500 MG TAB PO SCH (21:04)
[2017-07-11] MEDS: guaiFENesin/CODEINE SYRUP 200 MG/20 MG/10 ML CUP PO PRN (21:05)
[2017-07-11] MEDS: MELATONIN 5 MG TAB PO PRN (21:05)
[2017-07-12] VITALS (30 sets, daily range): BP systolic 136–169; BP diastolic 76–93; PULSE 87–116; RESP 16–20; TEMP 98.6–99.6; O2SAT 95–97
[2017-07-12] MEDS: AZTREONAM INJ 2,000 MG in SODIUM CHLORIDE 0.9% INJ 100 ML IV SCH ×4 (00:32→17:50)
[2017-07-12] MEDS: ACYCLOVIR 200 MG CAP PO SCH ×3 (03:50→18:28)
[2017-07-12] MEDS: VANCOMYCIN 25 MG/ML SOLN 100 ML BOTTLE PO SCH ×4 (03:50→21:28)
[2017-07-12] MEDS: SODIUM CHLOR 0.9% 1000 ML INJ 1,000 ML IV SCH ×3 (03:51→17:00)
[2017-07-12 04:54] LABS: HEMATOCRIT 27.1 % (35.0-46.0); HEMOGLOBIN 9.8 GM/DL (11.6-15.3); MEAN CELL VOLUME 83.5 FL (80.0-100.0); MEAN CORPUSCULAR HEMOGLOBIN 30.3 PG (27.0-34.0); RED BLOOD COUNT 3.24 MIL/MM3 (4.00-5.30); RED CELL DISTRIBUTION WIDTH 13.8 % (11.6-17.2)
[2017-07-12 05:04] LABS: MEAN CORPUSCULAR HGB CONC 36.3 % (32.0-36.0)
[2017-07-12 05:07] LABS: PLATELET COUNT 15 TH/MM3 (150-450)
[2017-07-12 05:25] LABS: ALBUMIN 2.8 GM/DL (3.4-5.0); DIRECT BILIRUBIN ADULT 0.3 MG/DL (0.0-0.2); MAGNESIUM 1.8 MG/DL (1.5-2.5)
[2017-07-12 05:28] LABS: INDIRECT BILIRUBIN 0.8 MG/DL (0.0-0.8); TOTAL BILIRUBIN ADULT 1.1 MG/DL (0.2-1.0); TOTAL PROTEIN 6.8 GM/DL (6.4-8.2)
[2017-07-12] MEDS: metroNIDAZOLE 500 MG TAB PO SCH ×3 (05:50→21:29)
[2017-07-12 08:23] LABS: LYMPHOCYTES 100 % (9-44)
[2017-07-12] MEDS: PROCHLORPERAZINE INJ 10 MG/2 ML VIAL IV PUSH PRN ×2 (10:20→21:21)
[2017-07-12] MEDS: LOSARTAN 50 MG TAB PO SCH (10:21)
[2017-07-12] MEDS: NYSTAT/DIPHENHY/LIDO MOUTHWASH (Adult) 120ML SWISH-SWAL SCH ×4 (10:21→21:30)
[2017-07-12] MEDS: amLODIPine BESYLATE 5 MG TAB PO SCH (10:22)
[2017-07-12] MEDS: CITALOPRAM HYDROBROMIDE 20 MG TAB PO SCH (10:22)
[2017-07-12] MEDS: predniSONE 5 MG TAB PO SCH (10:22)
[2017-07-12] MEDS: MAGNESIUM OXIDE 400 MG TAB PO SCH (10:22)
[2017-07-12] MEDS: CARVEDILOL 3.125 MG TAB PO SCH (10:22)
[2017-07-12] MEDS: POTASSIUM CHLORIDE 20 MEQ CONTROLLED RELEASE TAB PO SCH ×2 (10:23→21:28)
[2017-07-12] MEDS: [UNRECOGNIZED DRUG - OTHER] PO SCH ×2 (10:27→21:29)
--- NOTE | 2017-07-12 10:52 | PD.ONC.PN ---
Subjective Subjective Remarks Tmax 100F overnight. Patient feels ok today. still having swelling in left jaw. refusing MRI. wants to try lemon lozenges first. Objective Data Date Time Temp Pulse Resp B/P (MAP) Pulse Ox O2 Delivery O2 Flow Rate FiO2 07/12/17 09:14 99.4 109 20 136/93 (107) 97 07/12/17 08:00 113 07/12/17 06:00 112 07/12/17 05:00 98 07/12/17 04:10 106 07/12/17 04:04 99.5 104 16 169/89 (115) 96 07/12/17 03:00 102 07/12/17 02:00 98 07/12/17 01:00 94 07/12/17 00:33 99.5 92 16 139/80 (99) 95 07/12/17 00:03 87 07/11/17 23:00 100 07/11/17 22:00 114 07/11/17 21:15 100.0 105 16 151/86 (107) 95 07/11/17 21:00 100 07/11/17 20:02 99 07/11/17 19:00 106 07/11/17 19:00 106 07/11/17 18:02 99.4 89 16 147/99 (115) 96 07/11/17 17:00 84 07/11/17 16:03 100.8 109 16 177/105 (129) 95 07/11/17 16:00 108 07/11/17 15:00 92 07/11/17 14:00 106 07/11/17 13:00 88 07/11/17 12:00 90 07/11/17 11:50 98.7 87 16 162/98 (119) 95 07/11/17 11:00 86 07/12/17 07/12/17 07/12/17 07:00 15:00 23:00 Intake Total 1340 ml Balance 1340 ml Result Diagram: 07/12/17 0400 07/11/17 0450 Laboratory Results Laboratory Tests Test 07/12/17 04:00 White Blood Count 0.0 TH/MM3 Red Blood Count 3.24 MIL/MM3 Hemoglobin 9.8 GM/DL Hematocrit 27.1 % Mean Corpuscular Volume 83.5 FL Mean Corpuscular Hemoglobin 30.3 PG Mean Corpuscular Hemoglobin Concent 36.3 % Red Cell Distribution Width 13.8 % Platelet Count 15 TH/MM3 Mean Platelet Volume 7.0 FL CBC Comment AUTO DIFF Differential Total Cells Counted 5 Lymphocytes % 100 % Neutrophils # (Manual) 0.0 TH/MM3 Differential Comment FINAL DIFF MANUAL Platelet Estimate RARE Platelet Morphology Comment NORMAL Magnesium Level 1.8 MG/DL Total Bilirubin 1.1 MG/DL Direct Bilirubin 0.3 MG/DL Indirect Bilirubin 0.8 MG/DL Aspartate Amino Transf (AST/SGOT) 11 U/L Alanine Aminotransferase (ALT/SGPT) 20 U/L Alkaline Phosphatase 62 U/L Total Protein 6.8 GM/DL Albumin 2.8 GM/DL Culture Results Microbiology Date/Time Source Procedure Growth Status 07/11/17 17:50 Blood Peripheral Aerobic Blood Culture Pending Received 07/11/17 17:50 Blood Peripheral Anaerobic Blood Culture Pending Received 07/11/17 16:28 Blood Line Aerobic Blood Culture Pending Received 07/11/17 16:28 Blood Line Anaerobic Blood Culture Pending Received 07/09/17 10:49 Blood Peripheral Aerobic Blood Culture - Preliminary NO GROWTH IN 2 DAYS Resulted 07/09/17 10:49 Blood Peripheral Anaerobic Blood Culture - Preliminary NO GROWTH IN 2 DAYS Resulted 07/11/17 18:47 Urine Clean Catch Urine Culture Pending Received Administered Medications Medications (Trade) Dose Ordered Sig/Zeynep Route PRN Reason Start Time Stop Time Status Last Admin Dose Admin Carvedilol (Coreg) 3.125 mg DAILY PO 06/29/17 09:00 Future hold 07/12/17 10:22 Prednisone (Deltasone) 5 mg DAILY PO 06/29/17 09:00 07/12/17 10:22 Losartan Potassium (Cozaar) 100 mg DAILY PO 06/29/17 09:00 07/12/17 10:21 Al Hydrox/Mg Hydrox/Simethicone (Mag-Al Plus Susp Liq) 15 ml Q6H PRN PO INDIGESTION 06/28/17 20:45 07/05/17 13:52 Multi-Ingredient Mouthwash/Gargle (Magic Mouthwash Adult Liq) 5 ml QID SWISH-SWAL 06/29/17 13:00 07/12/17 10:21 Ondansetron HCl (Zofran Inj) 4 mg Q6HR PRN IV PUSH nausea 06/29/17 10:15 07/10/17 09:33 Diphenhydramine HCl (Benadryl) 25 mg Q6H PRN PO itching 06/30/17 10:45 07/07/17 12:55 Acetaminophen (Tylenol) 650 mg Q4H PRN PO fever>100.4 or PREMED 07/01/17 10:45 07/11/17 16:05 Melatonin (Melatonin) 5 mg HS PRN PO insomnia 07/02/17 21:00 07/11/17 21:05 Carboxymethylcellulose Sodium (Refresh Tears 0.5% Opth Soln) 1 drop Q6H PRN EACH EYE dry eyes 07/04/17 11:30 07/04/17 19:44 Patient Own Medication PT OWN MED: RYD... BID PO 07/05/17 11:30 07/18/17 21:01 07/12/17 10:27 Prochlorperazine Edisylate (Compazine Inj) 10 mg Q8H PRN IV PUSH nausea 07/05/17 10:15 07/12/17 10:20 Mirtazapine (Remeron) 15 mg HS PO 07/05/17 22:00 Future Hold 07/05/17 22:20 Sodium Chloride 1,000 ml @ 100 mls/hr Q10H IV 07/06/17 11:00 07/12/17 03:51 Albuterol/ Ipratropium (Duoneb Neb) 1 ampule Q6HR NEB PRN NEB SHORTNESS OF BREATH 07/06/17 18:00 07/07/17 20:44 Guaifenesin/ Codeine Phosphate (Robitussin Ac 200-20 Mg/10 ml Liq) 10 ml Q4H PRN PO cough 07/07/17 13:30 07/11/17 21:05 Vancomycin HCl (Vancomycin 25 Mg/ml Liq) 125 mg Q6H PO 07/08/17 16:00 07/12/17 10:25 Amlodipine Besylate (Norvasc) 5 mg DAILY PO 07/08/17 19:00 07/12/17 10:22 Diphenhydramine HCl (Benadryl) 25 mg Q4H PRN PO SEE LABEL COMMENTS 07/10/17 08:45 07/10/17 13:55 Potassium Chloride (KCl) 20 meq Q12HR PO 07/10/17 12:15 07/12/17 10:23 Aztreonam 2000 mg/ Sodium Chloride 100 ml @ 200 mls/hr Q6H IV 07/11/17 00:00 07/12/17 05:50 Magnesium Oxide (Mag-Ox) 400 mg DAILY PO 07/11/17 12:30 07/12/17 10:22 Metronidazole (Flagyl) 500 mg Q8HR PO 07/11/17 22:00 07/12/17 05:50 Citalopram Hydrobromide (CeleXA) 20 mg DAILY PO 07/12/17 09:00 07/12/17 10:22 Acyclovir (Zovirax) 400 mg Q8H PO 07/12/17 02:00 07/12/17 10:21 Objective Remarks GENERAL: Middle aged female, lying in bed resting SKIN: Warm and dry. +alopecia. HEAD: Normocephalic. EYES: No injection or drainage. NECK: Supple, trachea midline. CARDIOVASCULAR: Regular rate and rhythm RESPIRATORY: Breath sounds equal bilaterally. No accessory muscle use. GASTROINTESTINAL: Abdomen soft, non-tender, nondistended. EXTREMITIES: No cyanosis, or edema. NEUROLOGICAL: awake and alert, normal speech. moving all extremities. 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 monitor right-sided facial swelling. refusing MRI. continue antibiotics and lemon lozenges. 07/11/17: D14 No transfusion. Patient with right-sided facial swelling 07/10/17: D13 Hgb 7.9. Transfuse 1 unit irradiated PRBC's. K3.1. Transfuse total of 80 meq's to keep K greater than 4.0 per cardiology recs. Give 400mg magnesium oxide 4 mag level of 1.9 07/09/17: D12. hgb 8, platelet count of 7, will transfuse blood and platelets. 07/08/17: D11. continue antibiotics. monitor for fever 07/07/27: D10. give 1 unit pRBC and 1 unit platelets. continue antibiotics. 07/06/17: D9. no transfusion, spiked fever. start antibiotics, obtain cultures, u /a and chest x-ray. 07/05/17: D8. Transfuse 1 unit irradiated platelets today. Start Rydapt 50mg po BID x 14 days. 07/04/17: D7. no transfusion. monitor for fever 07/03/17: D6. 2 units pRBC. last day of chemotherapy 07/02/17: D5. 1 unit platelets. continue chemotherapy. 07/01/17: D4. 1 unit platelets. continue chemotherapy. 06/30/17: D3. Tolerating chemo. No transfusion today. 06/29/17: D2, give 2 units pRBC this AM. start chemotherapy this afternoon. 06/28/17: admission, D1 (2) Neutropenic fever ICD Codes: D70.9 - Neutropenia, unspecified; R50.81 - Fever presenting with conditions classified elsewhere Status: Acute Plan: --BC gram negative rods, Klebsiella Pneumoniae --CXR shows left basilar pleural parenchymal density --U/A neg --on Azactam, Flagyl, Zovirax, PO Vanco (3) C. difficile diarrhea ICD Codes: A04.72 - Enterocolitis due to Clostridium difficile, not specified as recurrent Plan: --on PO Vanco Assessment 57y/o female admitted for salvage chemotherapy with FLAG-AKASH for refractory acute myeloid leukemia. h/o Rheumatoid arthritis. Anxiety disorder. COPD. Depression. Hypercholesterolemia. Hypertension. Irregular heartbeat Attending Statement The exam, history, and the medical decision-making described in the above note were completed with the assistance of the mid-level provider. I reviewed and agree with the findings presented. I attest that I had a [id number] encounter with the patient on the same day, and personally performed and documented my assessment and findings in the medical record. C/O swelling Right Jaw. (Parotitis) low grade fever. repeat BC neg. continue with present plan. Julianna Mcdaniel Jul 12, 2017 10:52 April Fonseca MD Jul 12, 2017 15:00
--- NOTE | 2017-07-12 17:34 | HHI.IDPN ---
Subjective Subjective Remarks notes reviewed Events noted pt cont to co R chick pain and also noted that diarrhea got worse, more watery + low grade fever Remains profoundly neutropenic Antibiotics azactam flagyl po vanco po acyclovir ' Lines Line sites with no e.o infection Port site ok. Past Medical History Past h/o Kleb pneumo bacteremia in May 2017. Allergies: Coded Allergies: cefepime (Verified Allergy, Severe, HIVES, 06/25/17) latex (Unverified Allergy, Severe, Rash, 06/25/17) Sulfa (Sulfonamide Antibiotics) (Unverified Adverse Reaction, Severe, Vomiting, cramps, 06/25/17) Objective . Vital Signs Date Time Temp Pulse Resp B/P (MAP) Pulse Ox O2 Delivery O2 Flow Rate FiO2 07/12/17 17:00 108 07/12/17 16:00 90 07/12/17 15:00 108 07/12/17 14:16 99.6 91 18 143/90 (107) 95 07/12/17 14:00 92 07/12/17 13:00 93 07/12/17 12:00 102 07/12/17 09:14 99.4 109 20 136/93 (107) 97 07/12/17 08:00 113 07/12/17 06:00 112 07/12/17 05:00 98 07/12/17 04:10 106 07/12/17 04:04 99.5 104 16 169/89 (115) 96 07/12/17 03:00 102 07/12/17 02:00 98 07/12/17 01:00 94 07/12/17 00:33 99.5 92 16 139/80 (99) 95 07/12/17 00:03 87 07/11/17 23:00 100 07/11/17 22:00 114 07/11/17 21:15 100.0 105 16 151/86 (107) 95 07/11/17 21:00 100 07/11/17 20:02 99 07/11/17 19:00 106 07/11/17 19:00 106 07/11/17 18:02 99.4 89 16 147/99 (115) 96 . Laboratory Tests Test 07/11/17 04:50 07/12/17 04:00 White Blood Count 0.0 TH/MM3 0.0 TH/MM3 Red Blood Count 2.98 MIL/MM3 3.24 MIL/MM3 Hemoglobin 9.0 GM/DL 9.8 GM/DL Hematocrit 25.1 % 27.1 % Mean Corpuscular Volume 83.9 FL 83.5 FL Mean Corpuscular Hemoglobin 30.0 PG 30.3 PG Mean Corpuscular Hemoglobin Concent 35.7 % 36.3 % Red Cell Distribution Width 13.7 % 13.8 % Platelet Count 22 TH/MM3 15 TH/MM3 Mean Platelet Volume 7.3 FL 7.0 FL CBC Comment AUTO DIFF AUTO DIFF Differential Total Cells Counted 4 5 Lymphocytes % 100 % 100 % Neutrophils # (Manual) 0.0 TH/MM3 0.0 TH/MM3 Differential Comment FINAL DIFF MANUAL FINAL DIFF MANUAL Platelet Estimate RARE RARE Platelet Morphology Comment NORMAL NORMAL Red Cell Morphology Comment NORMAL Laboratory Tests Test 07/10/17 21:18 07/11/17 04:50 07/12/17 04:00 Potassium Level 4.0 MEQ/L 3.9 MEQ/L Blood Urea Nitrogen 9 MG/DL Creatinine 0.40 MG/DL Random Glucose 108 MG/DL Total Protein 6.0 GM/DL 6.8 GM/DL Albumin 2.6 GM/DL 2.8 GM/DL Calcium Level 8.4 MG/DL Magnesium Level 1.9 MG/DL 1.8 MG/DL Alkaline Phosphatase 56 U/L 62 U/L Aspartate Amino Transf (AST/SGOT) 10 U/L 11 U/L Alanine Aminotransferase (ALT/SGPT) 19 U/L 20 U/L Total Bilirubin 0.9 MG/DL 1.1 MG/DL Direct Bilirubin 0.2 MG/DL 0.3 MG/DL Sodium Level 142 MEQ/L Chloride Level 108 MEQ/L Carbon Dioxide Level 27.0 MEQ/L Anion Gap 7 MEQ/L Estimat Glomerular Filtration Rate 163 ML/MIN Indirect Bilirubin 0.7 MG/DL 0.8 MG/DL Microbiology Date/Time Source Procedure Growth Status 07/11/17 17:50 Blood Peripheral Aerobic Blood Culture - Preliminary NO GROWTH IN 1 DAY Resulted 07/11/17 17:50 Blood Peripheral Anaerobic Blood Culture - Preliminary NO GROWTH IN 1 DAY Resulted 07/11/17 16:28 Blood Line Aerobic Blood Culture - Preliminary NO GROWTH IN 1 DAY Resulted 07/11/17 16:28 Blood Line Anaerobic Blood Culture - Preliminary NO GROWTH IN 1 DAY Resulted 07/11/17 18:47 Urine Clean Catch Urine Culture - Preliminary NO GROWTH IN 24 HOURS. Resulted Imaging Last Impressions Upper Extremity Ultrasound 07/11/17 0000 Signed Impressions: Service Date/Time: Tuesday, July 11, 2017 16:40 - CONCLUSION: Normal examination. Mt Vance MD Chest X-Ray 07/11/17 0000 Signed Impressions: Service Date/Time: Tuesday, July 11, 2017 16:26 - CONCLUSION: 1. Improvement in left basilar airspace disease since July 06. Cardiomegaly. No significant effusion. Jacinto Tello MD Head CT 07/08/17 0000 Signed Impressions: Service Date/Time: July 19:55 - CONCLUSION: No acute disease. Malcolm Coker MD Physical Exam CONSTITUTIONAL/GENERAL: This is an adequately nourished patient, in no apparent distress. TUBES/LINES/DRAINS: PORT in place R chest w/o e/o infection SKIN: No jaundice, rashes, or lesions. Alopecia EYES: Pupils equal and round and reactive. Extraocular motions intact. No scleral icterus. No injection or drainage. Fundi not examined. HEENT: mucositis, tongue ulcer (very shallow) Firm tender induration and milsd edema of R chick CARDIOVASCULAR: Regular rate and rhythm without murmurs, gallops, or rubs. No JVD. Peripheral pulses symmetric. RESPIRATORY/CHEST: Symmetric, unlabored respirations. Clear to auscultation. Breath sounds equal bilaterally. No wheezes, rales, or rhonchi. GASTROINTESTINAL: Abdomen soft, non-tender, nondistended. GENITOURINARY: Without palpable bladder distension. MUSCULOSKELETAL: Extremities without clubbing, cyanosis, or edema. NEUROLOGICAL: Awake and alert. Motor and sensory grossly within normal limits. Follows commands. Clear speech . Moves all extremities. PSYCHIATRIC: Cooperative Port site ok. Assessment & Plan Remarks Sepsis in an Immune compromised host. New fevers ? new infection. Kleb pneumo bacteremia ? source (PORT?) This appears recurrent similar Kleb pneumo bacteremia in May 2017. 2 D echo negative from 06/30 US negative for thrombosys Sialoadenitis/Parotitis. Cold sore ? HSV Possible line infection Severely immunocompromised, neutropenic. AML sp chemo Neutropenia, neutropenic fever - resolved - persistent absolute neutropenia C.diff - improved diarrhea R sided parotitis, Staph including MRSA is primary consideration Recs: cont azactam IV (for Kleb pneumo) cont PO vancomycin (for Cdiff) start flagyl oral (for anaerobes for mouth jeromy given concern for sialoadenitis ) One time Vanco IV dose for possible new bacteremia given new fevers. Cont vancomycin cont oral acyclovir. Consider [place] for anticholinergic effect of increasing salivary secretions if parotid swelling does not go down. Also consider ENT consult and imaging if fevers and swelling persist. fu blood clx Doppler UE neck to look for e/o septic thrombophlebitis. Consider port removal if persistent fevers and or evidence of septic thrombophlebitis. PORT needs to be removed if recurrent Kleb pneumo bacteremia during or after treatment Brittney Odell MD Jul 12, 2017 17:34
[2017-07-12] MEDS ORDERED: Vancomycin Consult Pharmacy 1 EA OTHER SCH (17:45)
[2017-07-12] MEDS: VANCOMYCIN INJ 1,250 MG in SODIUM CHLOR 0.9% 250 ML INJ 250 ML IV SCH ×2 (21:07→21:21)
[2017-07-12] MEDS: ONDANSETRON HCL 4 MG/2 ML VIAL IV PUSH PRN (22:57)
[2017-07-13] VITALS (32 sets, daily range): BP systolic 119–165; BP diastolic 65–93; PULSE 75–117; RESP 16–18; TEMP 97.7–100.5; O2SAT 94–96
[2017-07-13] MEDS: AZTREONAM INJ 2,000 MG in SODIUM CHLORIDE 0.9% INJ 100 ML IV SCH ×4 (00:34→18:14)
[2017-07-13] MEDS: ACYCLOVIR 200 MG CAP PO SCH ×3 (00:41→18:15)
[2017-07-13] MEDS: SODIUM CHLOR 0.9% 1000 ML INJ 1,000 ML IV SCH ×2 (01:16→03:56)
[2017-07-13] MEDS: VANCOMYCIN 25 MG/ML SOLN 100 ML BOTTLE PO SCH ×4 (03:57→21:38)
[2017-07-13 05:17] LABS: ALBUMIN 2.5 GM/DL (3.4-5.0); AST (GOT) 9 U/L (15-37); BICARBONATE 26.2 MEQ/L (21.0-32.0); BLOOD UREA NITROGEN 9 MG/DL (7-18); CALCIUM 8.5 MG/DL (8.5-10.1); CHLORIDE 106 MEQ/L (98-107); CREATININE 0.37 MG/DL (0.50-1.00); GLOMERULAR FILTRATION RATE 179 ML/MIN (>89); GLUCOSE,RANDOM 105 MG/DL (74-106); MAGNESIUM 1.8 MG/DL (1.5-2.5); SODIUM (NA) 141 MEQ/L (136-145)
[2017-07-13 05:20] LABS: ALKALINE PHOSPHATASE 53 U/L (45-117); ALT (GPT) 16 U/L (10-53); TOTAL PROTEIN 6.2 GM/DL (6.4-8.2)
[2017-07-13] MEDS: metroNIDAZOLE 500 MG TAB PO SCH ×3 (06:30→21:43)
[2017-07-13] MEDS: ONDANSETRON HCL 4 MG/2 ML VIAL IV PUSH PRN ×3 (07:56→23:03)
[2017-07-13] MEDS: NYSTAT/DIPHENHY/LIDO MOUTHWASH (Adult) 120ML SWISH-SWAL SCH ×4 (07:56→21:43)
[2017-07-13] MEDS: CARVEDILOL 3.125 MG TAB PO SCH (07:57)
[2017-07-13] MEDS: MAGNESIUM OXIDE 400 MG TAB PO SCH (07:57)
[2017-07-13] MEDS: CITALOPRAM HYDROBROMIDE 20 MG TAB PO SCH (07:57)
[2017-07-13] MEDS: LOSARTAN 50 MG TAB PO SCH (07:57)
[2017-07-13] MEDS: ACETAMINOPHEN 325 MG TAB PO PRN ×3 (07:57→22:15)
[2017-07-13] MEDS: predniSONE 5 MG TAB PO SCH (07:57)
[2017-07-13] MEDS: amLODIPine BESYLATE 5 MG TAB PO SCH (07:58)
[2017-07-13] MEDS: POTASSIUM CHLORIDE 20 MEQ CONTROLLED RELEASE TAB PO SCH (07:58)
[2017-07-13] MEDS: VANCOMYCIN INJ 1,250 MG in SODIUM CHLOR 0.9% 250 ML INJ 250 ML IV SCH ×2 (07:58→20:30)
[2017-07-13] MEDS: [UNRECOGNIZED DRUG - OTHER] PO SCH ×2 (07:58→21:38)
[2017-07-13 08:00] LABS: HEMATOCRIT 21.8 % (35.0-46.0); HEMOGLOBIN 7.9 GM/DL (11.6-15.3); MEAN CELL VOLUME 83.3 FL (80.0-100.0); MEAN CORPUSCULAR HEMOGLOBIN 30.1 PG (27.0-34.0); MEAN PLATELET VOLUME 7.6 FL (7.0-11.0); RED BLOOD COUNT 2.61 MIL/MM3 (4.00-5.30); RED CELL DISTRIBUTION WIDTH 13.2 % (11.6-17.2)
[2017-07-13 08:09] LABS: MEAN CORPUSCULAR HGB CONC 36.2 % (32.0-36.0)
[2017-07-13 08:12] LABS: PLATELET COUNT 9 TH/MM3 (150-450)
[2017-07-13 08:44] LABS: LYMPHOCYTES 100 % (9-44)
[2017-07-13] MEDS ORDERED: SODIUM CHLOR 0.9% 250 ML INJ 250 ML IV ONE (08:45)
--- NOTE | 2017-07-13 09:31 | PD.ONC.PN ---
Subjective Subjective Remarks Afebrile overnight. Patient resting in room. she felt a bit nauseated overnight d/t the Rydapt. still has an occasional cough. had a mild headache this AM, which improved with tylenol. she is otherwise doing well. Objective Data Date Time Temp Pulse Resp B/P (MAP) Pulse Ox O2 Delivery O2 Flow Rate FiO2 07/13/17 07:45 98.8 107 18 165/93 (117) 96 07/13/17 06:32 99.2 07/13/17 06:05 100 07/13/17 05:00 90 07/13/17 04:00 100 07/13/17 03:50 98.8 86 16 119/65 (83) 94 07/13/17 03:00 101 07/13/17 02:04 102 07/13/17 01:02 100 07/13/17 00:31 99.5 110 18 138/83 (101) 96 07/13/17 00:11 99 07/12/17 23:02 101 07/12/17 22:02 89 07/12/17 21:01 93 07/12/17 20:50 98.6 111 141/87 (105) 96 07/12/17 20:02 97 07/12/17 19:05 102 07/12/17 18:00 98.6 102 18 149/76 (100) 95 07/12/17 17:00 108 07/12/17 16:00 90 07/12/17 15:00 108 07/12/17 14:16 99.6 91 18 143/90 (107) 95 07/12/17 14:00 92 07/12/17 13:00 93 07/12/17 12:00 102 07/12/17 11:00 94 07/12/17 10:00 96 07/13/17 07/13/17 07/13/17 06:59 14:59 22:59 Intake Total 1140 ml Output Total 1550 ml Balance -410 ml Result Diagram: 07/13/1740907/13/17 0410 Laboratory Results Laboratory Tests Test 07/13/17 04:10 White Blood Count 0.0 TH/MM3 Red Blood Count 2.61 MIL/MM3 Hemoglobin 7.9 GM/DL Hematocrit 21.8 % Mean Corpuscular Volume 83.3 FL Mean Corpuscular Hemoglobin 30.1 PG Mean Corpuscular Hemoglobin Concent 36.2 % Red Cell Distribution Width 13.2 % Platelet Count 9 TH/MM3 Mean Platelet Volume 7.6 FL CBC Comment AUTO DIFF Differential Total Cells Counted 1 Lymphocytes % 100 % Differential Comment FINAL DIFF MANUAL Platelet Estimate RARE Platelet Morphology Comment NORMAL Blood Urea Nitrogen 9 MG/DL Creatinine 0.37 MG/DL Random Glucose 105 MG/DL Total Protein 6.2 GM/DL Albumin 2.5 GM/DL Calcium Level 8.5 MG/DL Magnesium Level 1.8 MG/DL Alkaline Phosphatase 53 U/L Aspartate Amino Transf (AST/SGOT) 9 U/L Alanine Aminotransferase (ALT/SGPT) 16 U/L Total Bilirubin 1.0 MG/DL Sodium Level 141 MEQ/L Potassium Level 3.5 MEQ/L Chloride Level 106 MEQ/L Carbon Dioxide Level 26.2 MEQ/L Anion Gap 9 MEQ/L Estimat Glomerular Filtration Rate 179 ML/MIN Culture Results Microbiology Date/Time Source Procedure Growth Status 07/11/17 17:50 Blood Peripheral Aerobic Blood Culture - Preliminary NO GROWTH IN 1 DAY Resulted 07/11/17 17:50 Blood Peripheral Anaerobic Blood Culture - Preliminary NO GROWTH IN 1 DAY Resulted 07/11/17 16:28 Blood Line Aerobic Blood Culture - Preliminary NO GROWTH IN 1 DAY Resulted 07/11/17 16:28 Blood Line Anaerobic Blood Culture - Preliminary NO GROWTH IN 1 DAY Resulted 07/11/17 18:47 Urine Clean Catch Urine Culture - Preliminary NO GROWTH IN 24 HOURS. Resulted Administered Medications Medications (Trade) Dose Ordered Sig/Zeynep Route PRN Reason Start Time Stop Time Status Last Admin Dose Admin Carvedilol (Coreg) 3.125 mg DAILY PO 06/29/17 09:00 Future hold 07/13/17 07:57 Prednisone (Deltasone) 5 mg DAILY PO 06/29/17 09:00 07/13/17 07:57 Losartan Potassium (Cozaar) 100 mg DAILY PO 06/29/17 09:00 07/13/17 07:57 Al Hydrox/Mg Hydrox/Simethicone (Mag-Al Plus Susp Liq) 15 ml Q6H PRN PO INDIGESTION 06/28/17 20:45 07/05/17 13:52 Multi-Ingredient Mouthwash/Gargle (Magic Mouthwash Adult Liq) 5 ml QID SWISH-SWAL 06/29/17 13:00 07/13/17 07:56 Ondansetron HCl (Zofran Inj) 4 mg Q6HR PRN IV PUSH nausea 06/29/17 10:15 07/13/17 07:56 Diphenhydramine HCl (Benadryl) 25 mg Q6H PRN PO itching 06/30/17 10:45 07/07/17 12:55 Acetaminophen (Tylenol) 650 mg Q4H PRN PO fever>100.4 or PREMED 07/01/17 10:45 07/13/17 07:57 Melatonin (Melatonin) 5 mg HS PRN PO insomnia 07/02/17 21:00 07/11/17 21:05 Carboxymethylcellulose Sodium (Refresh Tears 0.5% Opth Soln) 1 drop Q6H PRN EACH EYE dry eyes 07/04/17 11:30 07/04/17 19:44 Patient Own Medication PT OWN MED: RYD... BID PO 07/05/17 11:30 07/18/17 21:01 07/13/17 07:58 Prochlorperazine Edisylate (Compazine Inj) 10 mg Q8H PRN IV PUSH nausea 07/05/17 10:15 07/12/17 21:21 Mirtazapine (Remeron) 15 mg HS PO 07/05/17 22:00 Future Hold 07/05/17 22:20 Sodium Chloride 1,000 ml @ 100 mls/hr Q10H IV 07/06/17 11:00 07/13/17 03:56 Albuterol/ Ipratropium (Duoneb Neb) 1 ampule Q6HR NEB PRN NEB SHORTNESS OF BREATH 07/06/17 18:00 07/07/17 20:44 Guaifenesin/ Codeine Phosphate (Robitussin Ac 200-20 Mg/10 ml Liq) 10 ml Q4H PRN PO cough 07/07/17 13:30 07/11/17 21:05 Vancomycin HCl (Vancomycin 25 Mg/ml Liq) 125 mg Q6H PO 07/08/17 16:00 07/13/17 03:57 Amlodipine Besylate (Norvasc) 5 mg DAILY PO 07/08/17 19:00 07/13/17 07:58 Diphenhydramine HCl (Benadryl) 25 mg Q4H PRN PO SEE LABEL COMMENTS 07/10/17 08:45 07/10/17 13:55 Aztreonam 2000 mg/ Sodium Chloride 100 ml @ 200 mls/hr Q6H IV 07/11/17 00:00 07/13/17 06:31 Magnesium Oxide (Mag-Ox) 400 mg DAILY PO 07/11/17 12:30 07/13/17 07:57 Metronidazole (Flagyl) 500 mg Q8HR PO 07/11/17 22:00 07/13/17 06:30 Citalopram Hydrobromide (CeleXA) 20 mg DAILY PO 07/12/17 09:00 07/13/17 07:57 Acyclovir (Zovirax) 400 mg Q8H PO 07/12/17 02:00 07/13/17 00:41 Vancomycin HCl 1250 mg/Sodium Chloride 262.5 ml @ 250 mls/hr Q12H IV 07/12/17 20:00 07/13/17 07:58 Objective Remarks GENERAL: Middle aged female, sitting up in bed in [facility]. SKIN: Warm and dry. +alopecia. HEAD: Normocephalic. EYES: No injection or drainage. MOUTH: + thrush NECK: Supple, trachea midline. CARDIOVASCULAR: Regular rate and rhythm RESPIRATORY: Breath sounds equal bilaterally. No accessory muscle use. GASTROINTESTINAL: Abdomen soft, non-tender, nondistended. EXTREMITIES: No cyanosis, or edema. NEUROLOGICAL: awake, alert. normal speech. 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 give 1unit pRBC, 1 unit platelets. facial swelling improved. start diflucan for thrush. 07/12/17: D15: no transfusion. monitor right-sided facial swelling. refusing MRI. continue antibiotics and lemon lozenges. 07/11/17: D14 No transfusion. Patient with right-sided facial swelling 07/10/17: D13 Hgb 7.9. Transfuse 1 unit irradiated PRBC's. K3.1. Transfuse total of 80 meq's to keep K greater than 4.0 per cardiology recs. Give 400mg magnesium oxide 4 mag level of 1.9 07/09/17: D12. hgb 8, platelet count of 7, will transfuse blood and platelets. 07/08/17: D11. continue antibiotics. monitor for fever 07/07/27: D10. give 1 unit pRBC and 1 unit platelets. continue antibiotics. 07/06/17: D9. no transfusion, spiked fever. start antibiotics, obtain cultures, u /a and chest x-ray. 07/05/17: D8. Transfuse 1 unit irradiated platelets today. Start Rydapt 50mg po BID x 14 days. 07/04/17: D7. no transfusion. monitor for fever 07/03/17: D6. 2 units pRBC. last day of chemotherapy 07/02/17: D5. 1 unit platelets. continue chemotherapy. 07/01/17: D4. 1 unit platelets. continue chemotherapy. 06/30/17: D3. Tolerating chemo. No transfusion today. 06/29/17: D2, give 2 units pRBC this AM. start chemotherapy this afternoon. 06/28/17: admission, D1 (2) Neutropenic fever ICD Codes: D70.9 - Neutropenia, unspecified; R50.81 - Fever presenting with conditions classified elsewhere Status: Acute Plan: --BC gram negative rods, Klebsiella Pneumoniae --CXR shows left basilar pleural parenchymal density --U/A neg --on Azactam, Flagyl, Zovirax, PO Vanco (3) C. difficile diarrhea ICD Codes: A04.72 - Enterocolitis due to Clostridium difficile, not specified as recurrent Plan: --on PO Vanco (4) Thrush ICD Codes: B37.0 - Candidal stomatitis Plan: --start diflucan --continue magic mouthwash. Assessment 57y/o female admitted for salvage chemotherapy with FLAG-AKASH for refractory acute myeloid leukemia. h/o Rheumatoid arthritis. Anxiety disorder. COPD. Depression. Hypercholesterolemia. Hypertension. Irregular heartbeat Attending Statement The exam, history, and the medical decision-making described in the above note were completed with the assistance of the mid-level provider. I reviewed and agree with the findings presented. I attest that I had a [id number] encounter with the patient on the same day, and personally performed and documented my assessment and findings in the medical record. Less facial swelling Had one episode of vomiting last night after rydapt. Recommend to take zofran atleast 1 hr before rydapt. PRBC and plat today. afebrile on present a/b. Julianna Mcdaniel Jul 13, 2017 09:31 April Fonseca MD Jul 13, 2017 14:16
[2017-07-13] MEDS: diphenhydrAMINE HCL 25 MG CAP PO PRN (11:13)
[2017-07-13] MEDS: FLUCONAZOLE 200 MG TAB PO SCH (16:49)
[2017-07-13] MEDS: PROCHLORPERAZINE INJ 10 MG/2 ML VIAL IV PUSH PRN (20:20)
[2017-07-14] VITALS (31 sets, daily range): BP systolic 105–161; BP diastolic 63–92; PULSE 76–114; RESP 16–18; TEMP 97.9–98.7; O2SAT 94–95
[2017-07-14] MEDS: AZTREONAM INJ 2,000 MG in SODIUM CHLORIDE 0.9% INJ 100 ML IV SCH ×5 (00:26→23:14)
[2017-07-14] MEDS: ACYCLOVIR 200 MG CAP PO SCH ×3 (00:29→18:25)
[2017-07-14] MEDS: VANCOMYCIN 25 MG/ML SOLN 100 ML BOTTLE PO SCH (04:37)
[2017-07-14 05:12] LABS: HEMATOCRIT 25.4 % (35.0-46.0); HEMOGLOBIN 9.1 GM/DL (11.6-15.3); MEAN CELL VOLUME 82.1 FL (80.0-100.0); MEAN CORPUSCULAR HEMOGLOBIN 29.4 PG (27.0-34.0); MEAN CORPUSCULAR HGB CONC 35.8 % (32.0-36.0); MEAN PLATELET VOLUME 7.5 FL (7.0-11.0); RED CELL DISTRIBUTION WIDTH 13.2 % (11.6-17.2)
[2017-07-14 05:21] LABS: PLATELET COUNT 17 TH/MM3 (150-450)
[2017-07-14] MEDS: metroNIDAZOLE 500 MG TAB PO SCH ×3 (05:26→20:21)
[2017-07-14 05:45] LABS: ALBUMIN 2.6 GM/DL (3.4-5.0); ALT (GPT) 17 U/L (10-53); AST (GOT) 11 U/L (15-37); BICARBONATE 28.5 MEQ/L (21.0-32.0); BLOOD UREA NITROGEN 11 MG/DL (7-18); CALCIUM 8.9 MG/DL (8.5-10.1); CHLORIDE 105 MEQ/L (98-107); GLOMERULAR FILTRATION RATE 163 ML/MIN (>89); GLUCOSE,RANDOM 101 MG/DL (74-106); MAGNESIUM 2.1 MG/DL (1.5-2.5); SODIUM (NA) 142 MEQ/L (136-145)
[2017-07-14 05:47] LABS: ALKALINE PHOSPHATASE 59 U/L (45-117); TOTAL PROTEIN 6.7 GM/DL (6.4-8.2)
[2017-07-14] MEDS ORDERED: POTASSIUM CHLOR 40 MEQ PREMIX 100 ML IV ONE (07:30)
--- NOTE | 2017-07-14 07:31 | PD.ONC.PN ---
Subjective Subjective Remarks Tmax 100.5 overnight. Patient had a 6 beat run of V-tach again overnight. Objective Data Date Time Temp Pulse Resp B/P (MAP) Pulse Ox O2 Delivery O2 Flow Rate FiO2 07/14/17 07:00 114 07/14/17 06:09 103 07/14/17 05:03 90 07/14/17 04:29 98.7 94 16 137/79 (98) 94 07/14/17 04:03 96 07/14/17 03:05 89 07/14/17 02:04 95 07/14/17 01:03 94 07/14/17 00:20 98.6 94 16 120/77 (91) 94 07/14/17 00:19 88 07/14/17 00:00 101 07/13/17 23:04 117 07/13/17 22:16 100.5 07/13/17 22:03 107 07/13/17 21:02 105 07/13/17 20:17 99.0 96 18 143/71 (95) 94 07/13/17 20:14 104 07/13/17 19:07 95 07/13/17 16:11 98.7 86 18 133/93 95 07/13/17 15:00 81 07/13/17 14:00 84 07/13/17 13:31 98.4 85 18 122/72 95 07/13/17 13:00 86 07/13/17 12:58 98.3 91 18 126/69 95 07/13/17 12:00 84 07/13/17 11:57 97.7 88 18 121/77 95 07/13/17 11:17 98.1 88 18 142/86 (104) 94 07/13/17 11:00 75 07/13/17 10:00 76 07/13/17 09:00 94 07/13/17 08:00 110 07/13/17 07:45 98.8 107 18 165/93 (117) 96 07/14/17 07/14/17 07/14/17 07:00 15:00 23:00 Intake Total 450 ml Output Total 550 ml Balance -100 ml Result Diagram: 07/14/17 0430 07/14/17 0430 Laboratory Results Laboratory Tests Test 07/14/17 04:30 White Blood Count 0.0 TH/MM3 Red Blood Count 3.10 MIL/MM3 Hemoglobin 9.1 GM/DL Hematocrit 25.4 % Mean Corpuscular Volume 82.1 FL Mean Corpuscular Hemoglobin 29.4 PG Mean Corpuscular Hemoglobin Concent 35.8 % Red Cell Distribution Width 13.2 % Platelet Count 17 TH/MM3 Mean Platelet Volume 7.5 FL CBC Comment AUTO DIFF Blood Urea Nitrogen 11 MG/DL Creatinine 0.40 MG/DL Random Glucose 101 MG/DL Total Protein 6.7 GM/DL Albumin 2.6 GM/DL Calcium Level 8.9 MG/DL Magnesium Level 2.1 MG/DL Alkaline Phosphatase 59 U/L Aspartate Amino Transf (AST/SGOT) 11 U/L Alanine Aminotransferase (ALT/SGPT) 17 U/L Total Bilirubin 1.0 MG/DL Sodium Level 142 MEQ/L Potassium Level 3.4 MEQ/L Chloride Level 105 MEQ/L Carbon Dioxide Level 28.5 MEQ/L Anion Gap 9 MEQ/L Estimat Glomerular Filtration Rate 163 ML/MIN Culture Results Microbiology Date/Time Source Procedure Growth Status 07/13/17 22:50 Blood Peripheral Aerobic Blood Culture Pending Received 07/13/17 22:50 Blood Peripheral Anaerobic Blood Culture Pending Received 07/13/17 22:50 Blood Line Aerobic Blood Culture Pending Received 07/13/17 22:50 Blood Line Anaerobic Blood Culture Pending Received 07/11/17 17:50 Blood Peripheral Aerobic Blood Culture - Preliminary NO GROWTH IN 2 DAYS Resulted 07/11/17 17:50 Blood Peripheral Anaerobic Blood Culture - Preliminary NO GROWTH IN 2 DAYS Resulted 07/11/17 16:28 Blood Line Aerobic Blood Culture - Preliminary NO GROWTH IN 2 DAYS Resulted 07/11/17 16:28 Blood Line Anaerobic Blood Culture - Preliminary NO GROWTH IN 2 DAYS Resulted 07/11/17 18:47 Urine Clean Catch Urine Culture - Final NO GROWTH IN 48 HOURS. Complete Administered Medications Medications (Trade) Dose Ordered Sig/Zeynep Route PRN Reason Start Time Stop Time Status Last Admin Dose Admin Carvedilol (Coreg) 3.125 mg DAILY PO 06/29/17 09:00 Future hold 07/13/17 07:57 Prednisone (Deltasone) 5 mg DAILY PO 06/29/17 09:00 07/13/17 07:57 Losartan Potassium (Cozaar) 100 mg DAILY PO 06/29/17 09:00 07/13/17 07:57 Al Hydrox/Mg Hydrox/Simethicone (Mag-Al Plus Susp Liq) 15 ml Q6H PRN PO INDIGESTION 06/28/17 20:45 07/05/17 13:52 Multi-Ingredient Mouthwash/Gargle (Magic Mouthwash Adult Liq) 5 ml QID SWISH-SWAL 06/29/17 13:00 07/13/17 21:43 Ondansetron HCl (Zofran Inj) 4 mg Q6HR PRN IV PUSH nausea 06/29/17 10:15 07/13/17 23:03 Diphenhydramine HCl (Benadryl) 25 mg Q6H PRN PO itching 06/30/17 10:45 07/07/17 12:55 Acetaminophen (Tylenol) 650 mg Q4H PRN PO fever>100.4 or PREMED 07/01/17 10:45 07/13/17 13:02 Melatonin (Melatonin) 5 mg HS PRN PO insomnia 07/02/17 21:00 07/11/17 21:05 Carboxymethylcellulose Sodium (Refresh Tears 0.5% Opth Soln) 1 drop Q6H PRN EACH EYE dry eyes 07/04/17 11:30 07/04/17 19:44 Patient Own Medication PT OWN MED: RYD... BID PO 07/05/17 11:30 07/18/17 21:01 07/13/17 21:38 Prochlorperazine Edisylate (Compazine Inj) 10 mg Q8H PRN IV PUSH nausea 07/05/17 10:15 07/13/17 20:20 Mirtazapine (Remeron) 15 mg HS PO 07/05/17 22:00 Future Hold 07/05/17 22:20 Albuterol/ Ipratropium (Duoneb Neb) 1 ampule Q6HR NEB PRN NEB SHORTNESS OF BREATH 07/06/17 18:00 07/07/17 20:44 Guaifenesin/ Codeine Phosphate (Robitussin Ac 200-20 Mg/10 ml Liq) 10 ml Q4H PRN PO cough 07/07/17 13:30 07/11/17 21:05 Vancomycin HCl (Vancomycin 25 Mg/ml Liq) 125 mg Q6H PO 07/08/17 16:00 07/14/17 04:37 Amlodipine Besylate (Norvasc) 5 mg DAILY PO 07/08/17 19:00 07/13/17 07:58 Acetaminophen (Tylenol) 650 mg Q4H PRN PO SEE LABEL COMMENTS 07/10/17 08:45 07/13/17 22:15 Aztreonam 2000 mg/ Sodium Chloride 100 ml @ 200 mls/hr Q6H IV 07/11/17 00:00 07/14/17 05:26 Magnesium Oxide (Mag-Ox) 400 mg DAILY PO 07/11/17 12:30 07/13/17 07:57 Metronidazole (Flagyl) 500 mg Q8HR PO 07/11/17 22:00 07/14/17 05:26 Citalopram Hydrobromide (CeleXA) 20 mg DAILY PO 07/12/17 09:00 07/13/17 07:57 Acyclovir (Zovirax) 400 mg Q8H PO 07/12/17 02:00 07/14/17 00:29 Vancomycin HCl 1250 mg/Sodium Chloride 262.5 ml @ 250 mls/hr Q12H IV 07/12/17 20:00 07/13/17 20:30 Fluconazole (Diflucan) 200 mg Q24H PO 07/13/17 11:00 07/13/17 16:49 Objective Remarks GENERAL: Middle aged female, lying in bed, looks nauseated. SKIN: Warm and dry. +alopecia. HEAD: Normocephalic. EYES: No injection or drainage. NECK: Supple, trachea midline. CARDIOVASCULAR: Regular rate and rhythm RESPIRATORY: Breath sounds equal bilaterally. No accessory muscle use. GASTROINTESTINAL: Abdomen soft, non-tender, nondistended. EXTREMITIES: No cyanosis, or edema. NEUROLOGICAL: awake, alert. no obvious focal deficit. 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 no transfusion. give IV potassium. notify cardiology of 6 beat run of V-tach overnight 07/13/17: D16. give 1unit pRBC, 1 unit platelets. facial swelling improved. start diflucan for thrush. 07/12/17: D15: no transfusion. monitor right-sided facial swelling. refusing MRI. continue antibiotics and lemon lozenges. 07/11/17: D14 No transfusion. Patient with right-sided facial swelling 07/10/17: D13 Hgb 7.9. Transfuse 1 unit irradiated PRBC's. K3.1. Transfuse total of 80 meq's to keep K greater than 4.0 per cardiology recs. Give 400mg magnesium oxide 4 mag level of 1.9 07/09/17: D12. hgb 8, platelet count of 7, will transfuse blood and platelets. 07/08/17: D11. continue antibiotics. monitor for fever 07/07/27: D10. give 1 unit pRBC and 1 unit platelets. continue antibiotics. 07/06/17: D9. no transfusion, spiked fever. start antibiotics, obtain cultures, u /a and chest x-ray. 07/05/17: D8. Transfuse 1 unit irradiated platelets today. Start Rydapt 50mg po BID x 14 days. 07/04/17: D7. no transfusion. monitor for fever 07/03/17: D6. 2 units pRBC. last day of chemotherapy 07/02/17: D5. 1 unit platelets. continue chemotherapy. 07/01/17: D4. 1 unit platelets. continue chemotherapy. 06/30/17: D3. Tolerating chemo. No transfusion today. 06/29/17: D2, give 2 units pRBC this AM. start chemotherapy this afternoon. 06/28/17: admission, D1 (2) Neutropenic fever ICD Codes: D70.9 - Neutropenia, unspecified; R50.81 - Fever presenting with conditions classified elsewhere Status: Acute Plan: --BC gram negative rods, Klebsiella Pneumoniae --CXR shows left basilar pleural parenchymal density --U/A neg --on Azactam, Flagyl, Zovirax, PO Vanco (3) C. difficile diarrhea ICD Codes: A04.72 - Enterocolitis due to Clostridium difficile, not specified as recurrent Plan: --on PO Vanco (4) Thrush ICD Codes: B37.0 - Candidal stomatitis Plan: --start diflucan --continue magic mouthwash. (5) Ventricular tachycardia (paroxysmal) ICD Codes: I47.2 - Ventricular tachycardia Plan: --seen by Dr. Barker, advises: keep her potassium levels above 4. Try to keep her magnesium levels near 2 or above. Assessment 57y/o female admitted for salvage chemotherapy with FLAG-AKASH for refractory acute myeloid leukemia. h/o Rheumatoid arthritis. Anxiety disorder. COPD. Depression. Hypercholesterolemia. Hypertension. Irregular heartbeat Attending Statement The exam, history, and the medical decision-making described in the above note were completed with the assistance of the mid-level provider. I reviewed and agree with the findings presented. I attest that I had a [id number] encounter with the patient on the same day, and personally performed and documented my assessment and findings in the medical record. Vomited twice last night. Stop PO vanco as she is on IV flagyl. stop oral K and start oral Protonix ( IV is not available). Regaln 10 mg q 8PM ( gets vomiting at night time) KCL 40 meq IV daily to keep K >4.0. Had second episode of asymptomatic 6 beats V tach last night. Dr Barker to follow. Mg >2.0 Continue IV vanco, azactam, flagyl, diflucan and acyclovir. BC are neg. await BM recovery from chemo. Julianna Mcdaniel Jul 14, 2017 07:30 April Fonseca MD Jul 14, 2017 16:02
[2017-07-14] MEDS ORDERED: PHARMACY ORDERED LAB ONE (07:45)
[2017-07-14] MEDS: VANCOMYCIN INJ 1,250 MG in SODIUM CHLOR 0.9% 250 ML INJ 250 ML IV SCH (07:55)
[2017-07-14] MEDS: NYSTAT/DIPHENHY/LIDO MOUTHWASH (Adult) 120ML SWISH-SWAL SCH ×4 (07:55→20:21)
[2017-07-14] MEDS: [UNRECOGNIZED DRUG - OTHER] PO SCH ×2 (07:55→20:20)
[2017-07-14] MEDS: predniSONE 5 MG TAB PO SCH (07:57)
[2017-07-14] MEDS: CITALOPRAM HYDROBROMIDE 20 MG TAB PO SCH (07:57)
[2017-07-14] MEDS: CARVEDILOL 3.125 MG TAB PO SCH (07:57)
[2017-07-14] MEDS: LOSARTAN 50 MG TAB PO SCH (07:57)
[2017-07-14] MEDS: ONDANSETRON HCL 4 MG/2 ML VIAL IV PUSH PRN ×2 (07:57→19:31)
[2017-07-14] MEDS: amLODIPine BESYLATE 5 MG TAB PO SCH (07:57)
[2017-07-14] MEDS: MAGNESIUM OXIDE 400 MG TAB PO SCH (07:57)
[2017-07-14 07:58] LABS: LYMPHOCYTES 67 % (9-44); POLYS (SEG NEUTROPHILS) 33 % (16-70)
[2017-07-14] MEDS: PROCHLORPERAZINE INJ 10 MG/2 ML VIAL IV PUSH PRN ×2 (10:03→20:18)
[2017-07-14] MEDS: FLUCONAZOLE 200 MG TAB PO SCH (10:27)
[2017-07-14] MEDS: ACETAMINOPHEN 325 MG TAB PO PRN ×2 (10:27→20:17)
[2017-07-14] MEDS: PANTOPRAZOLE SOD 40 MG DELAYED RELEASE TAB PO SCH (10:29)
[2017-07-14] MEDS: POTASSIUM CHLOR 40 MEQ PREMIX 100 ML IV SCH (16:11)
[2017-07-14] MEDS: METOCLOPRAMIDE INJ 10 MG in SODIUM CHLORIDE 0.9% INJ 50 ML IV SCH (20:00)
[2017-07-14] MEDS: VANCOMYCIN INJ 1,500 MG in SODIUM CHLORID 0.9% 500 ML INJ 500 ML IV SCH (20:20)
[2017-07-14] MEDS: SODIUM CHLOR 0.9% 1000 ML INJ 1,000 ML IV SCH ×2 (20:26→21:18)
[2017-07-15] VITALS (13 sets, daily range): BP systolic 123–158; BP diastolic 70–88; PULSE 82–101; RESP 14–18; TEMP 97–99.7; O2SAT 92–97
[2017-07-15] MEDS: ACETAMINOPHEN 325 MG TAB PO PRN ×3 (02:58→19:29)
[2017-07-15] MEDS: ACYCLOVIR 200 MG CAP PO SCH ×3 (02:58→18:00)
[2017-07-15] MEDS: ONDANSETRON HCL 4 MG/2 ML VIAL IV PUSH PRN ×3 (03:02→21:00)
[2017-07-15] MEDS: metroNIDAZOLE 500 MG TAB PO SCH (05:05)
[2017-07-15] MEDS: AZTREONAM INJ 2,000 MG in SODIUM CHLORIDE 0.9% INJ 100 ML IV SCH ×3 (05:38→19:28)
[2017-07-15 06:11] LABS: HEMATOCRIT 23.7 % (35.0-46.0); HEMOGLOBIN 8.6 GM/DL (11.6-15.3); MEAN CELL VOLUME 82.3 FL (80.0-100.0); MEAN PLATELET VOLUME 7.7 FL (7.0-11.0); RED BLOOD COUNT 2.89 MIL/MM3 (4.00-5.30); RED CELL DISTRIBUTION WIDTH 12.9 % (11.6-17.2); WHITE BLOOD COUNT 0.1 TH/MM3 (4.0-11.0)
[2017-07-15 06:15] LABS: CREATININE 0.45 MG/DL (0.50-1.00)
[2017-07-15 06:19] LABS: MEAN CORPUSCULAR HGB CONC 36.4 % (32.0-36.0)
[2017-07-15 06:24] LABS: PLATELET COUNT 13 TH/MM3 (150-450)
[2017-07-15] MEDS ORDERED: POTASSIUM CHLORIDE 10 MEQ CAP PO SCH (09:00)
[2017-07-15] MEDS: [UNRECOGNIZED DRUG - OTHER] PO SCH ×2 (09:00→22:13)
[2017-07-15 09:31] LABS: LYMPHOCYTES 100 % (9-44)
[2017-07-15] MEDS: NYSTAT/DIPHENHY/LIDO MOUTHWASH (Adult) 120ML SWISH-SWAL SCH ×4 (09:53→21:00)
--- NOTE | 2017-07-15 09:55 | PD.ONC.PN ---
Subjective Subjective Remarks Tmax 100.5 overnight. Patient resting in bed in nad. complaining of sore lymph node beneath her right jaw/chin. doesn't like to eat as foods "don't taste right." Objective Data Date Time Temp Pulse Resp B/P (MAP) Pulse Ox O2 Delivery O2 Flow Rate FiO2 07/15/17 06:00 82 07/15/17 05:00 96 07/15/17 04:00 101 07/15/17 03:00 98.1 100 14 158/88 (111) 96 07/15/17 02:00 92 07/15/17 01:00 86 07/15/17 00:00 87 07/15/17 00:00 98.8 93 16 133/77 (95) 97 07/14/17 23:00 88 07/14/17 22:27 107 07/14/17 22:00 88 07/14/17 21:00 86 07/14/17 20:12 98.1 97 16 135/80 (98) 95 07/14/17 19:00 82 07/14/17 18:00 86 07/14/17 17:00 90 07/14/17 16:09 97.9 85 18 125/67 (86) 95 07/14/17 16:00 80 07/14/17 15:00 78 07/14/17 14:00 92 07/14/17 13:00 76 07/14/17 12:00 86 07/14/17 11:05 98.6 93 18 105/63 (77) 94 07/14/17 11:00 83 07/14/17 10:00 92 07/15/17 07/15/17 07/15/17 07:00 15:00 23:00 Intake Total 340 ml Output Total 450 ml Balance -110 ml Result Diagram: 07/15/17 0530 07/15/17 0530 Laboratory Results Laboratory Tests Test 07/15/17 05:30 White Blood Count 0.1 TH/MM3 Red Blood Count 2.89 MIL/MM3 Hemoglobin 8.6 GM/DL Hematocrit 23.7 % Mean Corpuscular Volume 82.3 FL Mean Corpuscular Hemoglobin 30.0 PG Mean Corpuscular Hemoglobin Concent 36.4 % Red Cell Distribution Width 12.9 % Platelet Count 13 TH/MM3 Mean Platelet Volume 7.7 FL Neutrophils # (Auto) TH/MM3 CBC Comment AUTO DIFF Differential Total Cells Counted 5 Lymphocytes % 100 % Neutrophils # (Manual) 0.0 TH/MM3 Differential Comment FINAL DIFF MANUAL Platelet Estimate RARE Platelet Morphology Comment NORMAL Creatinine 0.45 MG/DL Estimat Glomerular Filtration Rate 143 ML/MIN Culture Results Microbiology Date/Time Source Procedure Growth Status 07/13/17 22:50 Blood Peripheral Aerobic Blood Culture - Preliminary NO GROWTH IN 1 DAY Resulted 07/13/17 22:50 Blood Peripheral Anaerobic Blood Culture - Preliminary NO GROWTH IN 1 DAY Resulted 07/13/17 22:50 Blood Line Aerobic Blood Culture - Preliminary NO GROWTH IN 1 DAY Resulted 07/13/17 22:50 Blood Line Anaerobic Blood Culture - Preliminary NO GROWTH IN 1 DAY Resulted 07/14/17 18:30 Stool Stool Stool Occult Blood (LAMAR) - Final HEMOCCULT NEGATIVE Complete Administered Medications Medications (Trade) Dose Ordered Sig/Zeynep Route PRN Reason Start Time Stop Time Status Last Admin Dose Admin Carvedilol (Coreg) 3.125 mg DAILY PO 06/29/17 09:00 Future hold 07/14/17 07:57 Prednisone (Deltasone) 5 mg DAILY PO 06/29/17 09:00 07/14/17 07:57 Losartan Potassium (Cozaar) 100 mg DAILY PO 06/29/17 09:00 07/14/17 07:57 Al Hydrox/Mg Hydrox/Simethicone (Mag-Al Plus Susp Liq) 15 ml Q6H PRN PO INDIGESTION 06/28/17 20:45 07/05/17 13:52 Multi-Ingredient Mouthwash/Gargle (Magic Mouthwash Adult Liq) 5 ml QID SWISH-SWAL 06/29/17 13:00 07/14/17 20:21 Ondansetron HCl (Zofran Inj) 4 mg Q6HR PRN IV PUSH nausea 06/29/17 10:15 07/15/17 03:02 Diphenhydramine HCl (Benadryl) 25 mg Q6H PRN PO itching 06/30/17 10:45 07/07/17 12:55 Acetaminophen (Tylenol) 650 mg Q4H PRN PO fever>100.4, PREMED, orpain1-2 07/01/17 10:45 07/15/17 02:58 Melatonin (Melatonin) 5 mg HS PRN PO insomnia 07/02/17 21:00 07/11/17 21:05 Carboxymethylcellulose Sodium (Refresh Tears 0.5% Opth Soln) 1 drop Q6H PRN EACH EYE dry eyes 07/04/17 11:30 07/04/17 19:44 Patient Own Medication PT OWN MED: RYD... BID PO 07/05/17 11:30 07/18/17 21:01 07/14/17 20:20 Prochlorperazine Edisylate (Compazine Inj) 10 mg Q8H PRN IV PUSH nausea 07/05/17 10:15 07/14/17 20:18 Albuterol/ Ipratropium (Duoneb Neb) 1 ampule Q6HR NEB PRN NEB SHORTNESS OF BREATH 07/06/17 18:00 07/07/17 20:44 Guaifenesin/ Codeine Phosphate (Robitussin Ac 200-20 Mg/10 ml Liq) 10 ml Q4H PRN PO cough 07/07/17 13:30 07/11/17 21:05 Amlodipine Besylate (Norvasc) 5 mg DAILY PO 07/08/17 19:00 07/14/17 07:57 Acetaminophen (Tylenol) 650 mg Q4H PRN PO SEE LABEL COMMENTS 07/10/17 08:45 07/13/17 22:15 Aztreonam 2000 mg/ Sodium Chloride 100 ml @ 200 mls/hr Q6H IV 07/11/17 00:00 07/15/17 05:38 Magnesium Oxide (Mag-Ox) 400 mg DAILY PO 07/11/17 12:30 07/14/17 07:57 Metronidazole (Flagyl) 500 mg Q8HR PO 07/11/17 22:00 07/15/17 05:05 Citalopram Hydrobromide (CeleXA) 20 mg DAILY PO 07/12/17 09:00 07/14/17 07:57 Acyclovir (Zovirax) 400 mg Q8H PO 07/12/17 02:00 07/15/17 02:58 Fluconazole (Diflucan) 200 mg Q24H PO 07/13/17 11:00 07/14/17 10:27 Potassium Chloride 100 ml @ 25 mls/hr DAILY@1600 IV 07/14/17 16:00 07/17/17 18:00 07/14/17 16:11 Pantoprazole Sodium (Protonix) 40 mg DAILY PO 07/14/17 09:00 07/14/17 10:29 Sodium Chloride 1,000 ml @ 84 mls/hr [id number] IV 07/14/17 09:45 07/14/17 21:18 Vancomycin HCl 1500 mg/Sodium Chloride 515 ml @ 257.5 mls/ hr Q12H IV 07/14/17 20:00 07/14/17 20:20 Objective Remarks GENERAL: Middle aged female, supine in bed resting. SKIN: Warm and dry. +alopecia. HEAD: Normocephalic. EYES: No injection or drainage. MOUTH: a few oral ulcers seen. no thrush visualized. NECK: Supple, trachea midline. tender nodule palpated, left subinguinal area. CARDIOVASCULAR: Regular rate and rhythm RESPIRATORY: Breath sounds equal bilaterally. No accessory muscle use. GASTROINTESTINAL: Abdomen soft, non-tender, nondistended. EXTREMITIES: No cyanosis, or edema. NEUROLOGICAL: awake, alert. normal speech. moving extremities. 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 no transfusion. obtain blood cultures for fever spike last night. give potassium as ordered. monitor closely 07/14/17: D17. no transfusion. give IV potassium. notify cardiology of 6 beat run of V-tach overnight 07/13/17: D16. give 1unit pRBC, 1 unit platelets. facial swelling improved. start diflucan for thrush. 07/12/17: D15: no transfusion. monitor right-sided facial swelling. refusing MRI. continue antibiotics and lemon lozenges. 07/11/17: D14 No transfusion. Patient with right-sided facial swelling 07/10/17: D13 Hgb 7.9. Transfuse 1 unit irradiated PRBC's. K3.1. Transfuse total of 80 meq's to keep K greater than 4.0 per cardiology recs. Give 400mg magnesium oxide 4 mag level of 1.9 07/09/17: D12. hgb 8, platelet count of 7, will transfuse blood and platelets. 07/08/17: D11. continue antibiotics. monitor for fever 2/28/28: D10. give 1 unit pRBC and 1 unit platelets. continue antibiotics. 07/06/17: D9. no transfusion, spiked fever. start antibiotics, obtain cultures, u /a and chest x-ray. 07/05/17: D8. Transfuse 1 unit irradiated platelets today. Start Rydapt 50mg po BID x 14 days. 07/04/17: D7. no transfusion. monitor for fever 07/03/17: D6. 2 units pRBC. last day of chemotherapy 07/02/17: D5. 1 unit platelets. continue chemotherapy. 07/01/17: D4. 1 unit platelets. continue chemotherapy. 06/30/17: D3. Tolerating chemo. No transfusion today. 06/29/17: D2, give 2 units pRBC this AM. start chemotherapy this afternoon. 06/28/17: admission, D1 (2) Neutropenic fever ICD Codes: D70.9 - Neutropenia, unspecified; R50.81 - Fever presenting with conditions classified elsewhere Status: Acute Plan: --BC 07/13: no growth. --BC, 07/06 gram negative rods, Klebsiella Pneumoniae --CXR shows left basilar pleural parenchymal density --U/A neg --on Azactam, Flagyl, Zovirax, (3) C. difficile diarrhea ICD Codes: A04.72 - Enterocolitis due to Clostridium difficile, not specified as recurrent Plan: --on IV Flagyl (4) Thrush ICD Codes: B37.0 - Candidal stomatitis Plan: --on diflucan, magic mouthwash. (5) Ventricular tachycardia (paroxysmal) ICD Codes: I47.2 - Ventricular tachycardia Plan: --seen by Dr. Barker, advises: keep her potassium levels above 4. Try to keep her magnesium levels near 2 or above. Assessment 57y/o female admitted for salvage chemotherapy with FLAG-AKASH for refractory acute myeloid leukemia. h/o Rheumatoid arthritis. Anxiety disorder. COPD. Depression. Hypercholesterolemia. Hypertension. Irregular heartbeat Julianna Mcdaniel Jul 15, 2017 09:55 April Fonseca MD Jul 16, 2017 13:50
[2017-07-15] MEDS: PANTOPRAZOLE SOD 40 MG DELAYED RELEASE TAB PO SCH (09:56)
[2017-07-15] MEDS: LOSARTAN 50 MG TAB PO SCH (09:56)
[2017-07-15] MEDS: CITALOPRAM HYDROBROMIDE 20 MG TAB PO SCH (09:56)
[2017-07-15] MEDS: MAGNESIUM OXIDE 400 MG TAB PO SCH (09:57)
[2017-07-15] MEDS: amLODIPine BESYLATE 5 MG TAB PO SCH (09:57)
[2017-07-15] MEDS: PROCHLORPERAZINE INJ 10 MG/2 ML VIAL IV PUSH PRN ×2 (09:57→19:30)
[2017-07-15] MEDS: CARVEDILOL 3.125 MG TAB PO SCH (09:57)
[2017-07-15] MEDS: predniSONE 5 MG TAB PO SCH (09:57)
[2017-07-15] MEDS: VANCOMYCIN INJ 1,500 MG in SODIUM CHLORID 0.9% 500 ML INJ 500 ML IV SCH ×2 (10:07→22:15)
[2017-07-15] MEDS: FLUCONAZOLE 200 MG TAB PO SCH (12:36)
[2017-07-15] MEDS: metroNIDAZOLE 500 MG INJ 100 ML IV SCH ×2 (12:36→17:41)
[2017-07-15] MEDS: VANCOMYCIN 25 MG/ML SOLN 100 ML BOTTLE PO SCH ×3 (13:00→21:00)
[2017-07-15 13:11] LABS: ALBUMIN 2.5 GM/DL (3.4-5.0); ALT (GPT) 13 U/L (10-53); AST (GOT) 8 U/L (15-37); BICARBONATE 27.6 MEQ/L (21.0-32.0); BLOOD UREA NITROGEN 6 MG/DL (7-18); CALCIUM 8.4 MG/DL (8.5-10.1); CHLORIDE 103 MEQ/L (98-107); CREATININE 0.38 MG/DL (0.50-1.00); GLOMERULAR FILTRATION RATE 173 ML/MIN (>89); GLUCOSE,RANDOM 121 MG/DL (74-106); SODIUM (NA) 138 MEQ/L (136-145)
[2017-07-15 13:13] LABS: ALKALINE PHOSPHATASE 53 U/L (45-117); TOTAL PROTEIN 6.3 GM/DL (6.4-8.2)
[2017-07-15] MEDS: POTASSIUM CHLOR 40 MEQ PREMIX 100 ML IV SCH (17:41)
--- NOTE | 2017-07-15 18:05 | HHI.IDPN ---
Subjective Subjective Remarks co worsening diarrhea co tender lump in L submandibular area - new no fever Antibiotics azactam flagyl po vanco IV acyclovir ' Lines Line sites with no e.o infection Port site ok. Past Medical History Past h/o Kleb pneumo bacteremia in May 2017. Allergies: Coded Allergies: cefepime (Verified Allergy, Severe, HIVES, 06/25/17) latex (Unverified Allergy, Severe, Rash, 06/25/17) Sulfa (Sulfonamide Antibiotics) (Unverified Adverse Reaction, Severe, Vomiting, cramps, 06/25/17) Objective . Vital Signs Date Time Temp Pulse Resp B/P (MAP) Pulse Ox O2 Delivery O2 Flow Rate FiO2 07/15/17 16:00 98.3 91 14 138/71 (93) 93 07/15/17 12:00 97.0 86 18 123/70 (87) 92 07/15/17 06:00 82 07/15/17 05:00 96 07/15/17 04:00 101 07/15/17 03:00 98.1 100 14 158/88 (111) 96 07/15/17 02:00 92 07/15/17 01:00 86 07/15/17 00:00 87 07/15/17 00:00 98.8 93 16 133/77 (95) 97 07/14/17 23:00 88 07/14/17 22:27 107 07/14/17 22:00 88 07/14/17 21:00 86 07/14/17 20:12 98.1 97 16 135/80 (98) 95 07/14/17 19:00 82 07/14/17 18:00 86 07/15/17 07/15/17 07/16/17 15:00 23:00 07:00 Intake Total 100 ml Balance 100 ml IV Total 100 ml . Laboratory Tests Test 07/14/17 04:30 07/15/17 05:30 White Blood Count 0.0 TH/MM3 0.1 TH/MM3 Red Blood Count 3.10 MIL/MM3 2.89 MIL/MM3 Hemoglobin 9.1 GM/DL 8.6 GM/DL Hematocrit 25.4 % 23.7 % Mean Corpuscular Volume 82.1 FL 82.3 FL Mean Corpuscular Hemoglobin 29.4 PG 30.0 PG Mean Corpuscular Hemoglobin Concent 35.8 % 36.4 % Red Cell Distribution Width 13.2 % 12.9 % Platelet Count 17 TH/MM3 13 TH/MM3 Mean Platelet Volume 7.5 FL 7.7 FL CBC Comment AUTO DIFF AUTO DIFF Differential Total Cells Counted 3 5 Neutrophils % (Manual) 33 % Lymphocytes % 67 % 100 % Neutrophils # (Manual) 0.0 TH/MM3 0.0 TH/MM3 Differential Comment FINAL DIFF MANUAL FINAL DIFF MANUAL Platelet Estimate RARE RARE Platelet Morphology Comment NORMAL NORMAL Neutrophils # (Auto) TH/MM3 Laboratory Tests Test 07/14/17 04:30 07/15/17 05:30 07/15/17 12:32 Blood Urea Nitrogen 11 MG/DL 6 MG/DL Creatinine 0.40 MG/DL 0.45 MG/DL 0.38 MG/DL Random Glucose 101 MG/DL 121 MG/DL Total Protein 6.7 GM/DL 6.3 GM/DL Albumin 2.6 GM/DL 2.5 GM/DL Calcium Level 8.9 MG/DL 8.4 MG/DL Magnesium Level 2.1 MG/DL 2.0 MG/DL Alkaline Phosphatase 59 U/L 53 U/L Aspartate Amino Transf (AST/SGOT) 11 U/L 8 U/L Alanine Aminotransferase (ALT/SGPT) 17 U/L 13 U/L Total Bilirubin 1.0 MG/DL 1.0 MG/DL Sodium Level 142 MEQ/L 138 MEQ/L Potassium Level 3.4 MEQ/L 3.6 MEQ/L Chloride Level 105 MEQ/L 103 MEQ/L Carbon Dioxide Level 28.5 MEQ/L 27.6 MEQ/L Anion Gap 9 MEQ/L 7 MEQ/L Estimat Glomerular Filtration Rate 163 ML/MIN 143 ML/MIN 173 ML/MIN Microbiology Date/Time Source Procedure Growth Status 07/15/17 12:30 Blood Peripheral Aerobic Blood Culture Pending Received 07/15/17 12:30 Blood Peripheral Anaerobic Blood Culture Pending Received 07/15/17 12:30 Blood Line Aerobic Blood Culture Pending Received 07/15/17 12:30 Blood Line Anaerobic Blood Culture Pending Received 07/13/17 22:50 Blood Peripheral Aerobic Blood Culture - Preliminary NO GROWTH IN 2 DAYS Resulted 07/13/17 22:50 Blood Peripheral Anaerobic Blood Culture - Preliminary NO GROWTH IN 2 DAYS Resulted 07/13/17 22:50 Blood Line Aerobic Blood Culture - Preliminary NO GROWTH IN 2 DAYS Resulted 07/13/17 22:50 Blood Line Anaerobic Blood Culture - Preliminary NO GROWTH IN 2 DAYS Resulted 07/14/17 18:30 Stool Stool Stool Occult Blood (LAMAR) - Final HEMOCCULT NEGATIVE Complete Imaging Last Impressions Upper Extremity Ultrasound 07/11/17 0000 Signed Impressions: Service Date/Time: Tuesday, July 11, 2017 16:40 - CONCLUSION: Normal examination. Mt Vance MD Chest X-Ray 07/11/17 0000 Signed Impressions: Service Date/Time: Tuesday, July 11, 2017 16:26 - CONCLUSION: 1. Improvement in left basilar airspace disease since July 06. Cardiomegaly. No significant effusion. Jacinto Tello MD Head CT 07/08/17 0000 Signed Impressions: Service Date/Time: July 19:55 - CONCLUSION: No acute disease. Malcolm Coker MD Physical Exam CONSTITUTIONAL/GENERAL: This is an adequately nourished patient, in no apparent distress. TUBES/LINES/DRAINS: PORT in place R chest w/o e/o infection SKIN: No jaundice, rashes, or lesions. Alopecia EYES: Pupils equal and round and reactive. Extraocular motions intact. No scleral icterus. No injection or drainage. Fundi not examined. HEENT: mucositis, tongue ulcer (very shallow) Firm tender induration and milsd edema of R chick- improved + 3 cm tender non fluctant L submandubular mass - new CARDIOVASCULAR: Regular rate and rhythm without murmurs, gallops, or rubs. No JVD. Peripheral pulses symmetric. RESPIRATORY/CHEST: Symmetric, unlabored respirations. Clear to auscultation. Breath sounds equal bilaterally. No wheezes, rales, or rhonchi. GASTROINTESTINAL: Abdomen soft, non-tender, nondistended. GENITOURINARY: Without palpable bladder distension. MUSCULOSKELETAL: Extremities without clubbing, cyanosis, or edema. NEUROLOGICAL: Awake and alert. Motor and sensory grossly within normal limits. Follows commands. Clear speech . Moves all extremities. PSYCHIATRIC: Cooperative Port site ok. Assessment & Plan Remarks Sepsis in an Immune compromised host. New fevers ? new infection. Kleb pneumo bacteremia ? source (PORT?) This appears recurrent similar Kleb pneumo bacteremia in May 2017. 2 D echo negative from 06/30 US negative for thrombosys Sialoadenitis/Parotitis. Cold sore ? HSV Possible line infection Severely immunocompromised, neutropenic. AML sp chemo Neutropenia, neutropenic fever - resolved - persistent absolute neutropenia; severe and persistent C.diff - more diarrhea R sided parotitis, Staph including MRSA is primary consideration Recs: cont azactam IV (for Kleb pneumo) cont PO vancomycin (for Cdiff): cont at least 2 weeks - dose was increased to 500 start flagyl oral (for anaerobes for mouth jeromy given concern for sialoadenitis ) One time Vanco IV dose for possible new bacteremia given new fevers. Cont vancomycin cont oral acyclovir. Consider [place] for anticholinergic effect of increasing salivary secretions if parotid swelling does not go down. Doppler UE neck to look for e/o septic thrombophlebitis. Consider port removal if persistent fevers and or evidence of septic thrombophlebitis. PORT needs to be removed if recurrent Kleb pneumo bacteremia during or after treatment MOnitor WBC and temps Brittney Odell MD Jul 15, 2017 18:05
[2017-07-15] MEDS: METOCLOPRAMIDE INJ 10 MG in SODIUM CHLORIDE 0.9% INJ 50 ML IV SCH (20:00)
[2017-07-15] MEDS: SODIUM CHLOR 0.9% 1000 ML INJ 1,000 ML IV SCH (21:30)
[2017-07-15] MEDS: ALPRAZolam 0.5 MG TAB PO PRN (22:12)
[2017-07-16] VITALS (17 sets, daily range): BP systolic 122–183; BP diastolic 65–88; PULSE 88–118; RESP 14–16; TEMP 98.3–100.8; O2SAT 93–95
[2017-07-16] MEDS: ONDANSETRON HCL 4 MG/2 ML VIAL IV PUSH PRN (02:38)
[2017-07-16] MEDS: ACETAMINOPHEN 325 MG TAB PO PRN ×3 (02:39→22:33)
[2017-07-16] MEDS: AZTREONAM INJ 2,000 MG in SODIUM CHLORIDE 0.9% INJ 100 ML IV SCH ×4 (02:40→18:00)
[2017-07-16] MEDS: ACYCLOVIR 200 MG CAP PO SCH ×3 (02:40→18:00)
[2017-07-16] MEDS: metroNIDAZOLE 500 MG INJ 100 ML IV SCH ×2 (02:41→10:05)
[2017-07-16 07:06] LABS: HEMATOCRIT 22.8 % (35.0-46.0); HEMOGLOBIN 8.4 GM/DL (11.6-15.3); MEAN CELL VOLUME 81.5 FL (80.0-100.0); MEAN CORPUSCULAR HEMOGLOBIN 30.1 PG (27.0-34.0); MEAN PLATELET VOLUME 7.8 FL (7.0-11.0); RED CELL DISTRIBUTION WIDTH 12.7 % (11.6-17.2)
[2017-07-16 07:16] LABS: PLATELET COUNT 8 TH/MM3 (150-450)
[2017-07-16 07:18] LABS: BICARBONATE 27.9 MEQ/L (21.0-32.0); CALCIUM 8.6 MG/DL (8.5-10.1); CREATININE 0.41 MG/DL (0.50-1.00); MAGNESIUM 1.9 MG/DL (1.5-2.5)
[2017-07-16] MEDS ORDERED: PHARMACY ORDERED LAB ONE (07:45)
[2017-07-16 08:37] LABS: LYMPHOCYTES 100 % (9-44)
--- NOTE | 2017-07-16 08:57 | PD.ONC.PN ---
Subjective Subjective Remarks Tmax 100.8 overnight. Patient resting in bed in nad. she states she had a rough night last night. she vomited twice. the PO Vanco makes her feel sick. she is eating very little. Objective Data Date Time Temp Pulse Resp B/P (MAP) Pulse Ox O2 Delivery O2 Flow Rate FiO2 07/16/17 08:00 99.0 104 16 183/88 (119) 95 07/16/17 06:00 100 07/16/17 05:30 98.8 07/16/17 05:00 90 07/16/17 04:00 96 07/16/17 03:30 100.8 100 16 147/88 (107) 93 07/16/17 02:00 102 07/16/17 01:00 94 07/16/17 00:00 98.3 100 14 128/77 (94) 93 07/16/17 00:00 88 07/15/17 23:00 84 07/15/17 21:00 88 07/15/17 20:00 95 07/15/17 20:00 99.7 85 16 127/73 (91) 95 07/15/17 19:00 96 07/15/17 16:00 98.3 91 14 138/71 (93) 93 07/15/17 12:00 97.0 86 18 123/70 (87) 92 07/16/17 07/16/17 07/16/17 07:00 15:00 23:00 Intake Total 955 ml Output Total 900 ml Balance 55 ml Result Diagram: 07/16/17 0555 07/16/17 0555 Laboratory Results Laboratory Tests Test 07/15/17 12:32 07/16/17 05:55 Blood Urea Nitrogen 6 MG/DL 5 MG/DL Creatinine 0.38 MG/DL 0.41 MG/DL Random Glucose 121 MG/DL 103 MG/DL Total Protein 6.3 GM/DL Albumin 2.5 GM/DL Calcium Level 8.4 MG/DL 8.6 MG/DL Alkaline Phosphatase 53 U/L Aspartate Amino Transf (AST/SGOT) 8 U/L Alanine Aminotransferase (ALT/SGPT) 13 U/L Total Bilirubin 1.0 MG/DL Sodium Level 138 MEQ/L 139 MEQ/L Potassium Level 3.6 MEQ/L 3.7 MEQ/L Chloride Level 103 MEQ/L 104 MEQ/L Carbon Dioxide Level 27.6 MEQ/L 27.9 MEQ/L Anion Gap 7 MEQ/L 7 MEQ/L Estimat Glomerular Filtration Rate 173 ML/MIN 159 ML/MIN Magnesium Level 2.0 MG/DL 1.9 MG/DL White Blood Count 0.0 TH/MM3 Red Blood Count 2.80 MIL/MM3 Hemoglobin 8.4 GM/DL Hematocrit 22.8 % Mean Corpuscular Volume 81.5 FL Mean Corpuscular Hemoglobin 30.1 PG Mean Corpuscular Hemoglobin Concent 37.0 % Red Cell Distribution Width 12.7 % Platelet Count 8 TH/MM3 Mean Platelet Volume 7.8 FL CBC Comment AUTO DIFF Differential Total Cells Counted 1 Lymphocytes % 100 % Neutrophils # (Manual) 0.0 TH/MM3 Differential Comment FINAL DIFF MANUAL Platelet Estimate RARE Platelet Morphology Comment NORMAL Culture Results Microbiology Date/Time Source Procedure Growth Status 07/15/17 12:30 Blood Peripheral Aerobic Blood Culture Pending Received 07/15/17 12:30 Blood Peripheral Anaerobic Blood Culture Pending Received 07/15/17 12:30 Blood Line Aerobic Blood Culture Pending Received 07/15/17 12:30 Blood Line Anaerobic Blood Culture Pending Received 07/13/17 22:50 Blood Peripheral Aerobic Blood Culture - Preliminary NO GROWTH IN 2 DAYS Resulted 07/13/17 22:50 Blood Peripheral Anaerobic Blood Culture - Preliminary NO GROWTH IN 2 DAYS Resulted 07/13/17 22:50 Blood Line Aerobic Blood Culture - Preliminary NO GROWTH IN 2 DAYS Resulted 07/13/17 22:50 Blood Line Anaerobic Blood Culture - Preliminary NO GROWTH IN 2 DAYS Resulted 07/14/17 18:30 Stool Stool Stool Occult Blood (LAMAR) - Final HEMOCCULT NEGATIVE Complete Administered Medications Medications (Trade) Dose Ordered Sig/Zeynep Route PRN Reason Start Time Stop Time Status Last Admin Dose Admin Carvedilol (Coreg) 3.125 mg DAILY PO 06/29/17 09:00 Future hold 07/15/17 09:57 Prednisone (Deltasone) 5 mg DAILY PO 06/29/17 09:00 07/15/17 09:57 Losartan Potassium (Cozaar) 100 mg DAILY PO 06/29/17 09:00 07/15/17 09:56 Al Hydrox/Mg Hydrox/Simethicone (Mag-Al Plus Susp Liq) 15 ml Q6H PRN PO INDIGESTION 06/28/17 20:45 07/05/17 13:52 Multi-Ingredient Mouthwash/Gargle (Magic Mouthwash Adult Liq) 5 ml QID SWISH-SWAL 06/29/17 13:00 07/15/17 21:00 Ondansetron HCl (Zofran Inj) 4 mg Q6HR PRN IV PUSH nausea 06/29/17 10:15 07/16/17 02:38 Diphenhydramine HCl (Benadryl) 25 mg Q6H PRN PO itching 06/30/17 10:45 07/07/17 12:55 Acetaminophen (Tylenol) 650 mg Q4H PRN PO fever>100.4, PREMED, orpain1-2 07/01/17 10:45 07/16/17 02:39 Melatonin (Melatonin) 5 mg HS PRN PO insomnia 07/02/17 21:00 07/11/17 21:05 Carboxymethylcellulose Sodium (Refresh Tears 0.5% Opth Soln) 1 drop Q6H PRN EACH EYE dry eyes 07/04/17 11:30 07/04/17 19:44 Patient Own Medication PT OWN MED: RYD... BID PO 07/05/17 11:30 07/18/17 21:01 07/15/17 22:13 Prochlorperazine Edisylate (Compazine Inj) 10 mg Q8H PRN IV PUSH nausea 07/05/17 10:15 07/15/17 19:30 Alprazolam (Xanax) 0.25 mg Q8HR PRN PO anxiety 07/06/17 10:00 07/15/17 22:12 Albuterol/ Ipratropium (Duoneb Neb) 1 ampule Q6HR NEB PRN NEB SHORTNESS OF BREATH 07/06/17 18:00 07/07/17 20:44 Guaifenesin/ Codeine Phosphate (Robitussin Ac 200-20 Mg/10 ml Liq) 10 ml Q4H PRN PO cough 07/07/17 13:30 07/11/17 21:05 Amlodipine Besylate (Norvasc) 5 mg DAILY PO 07/08/17 19:00 07/15/17 09:57 Aztreonam 2000 mg/ Sodium Chloride 100 ml @ 200 mls/hr Q6H IV 07/11/17 00:00 07/16/17 05:55 Magnesium Oxide (Mag-Ox) 400 mg DAILY PO 07/11/17 12:30 07/15/17 09:57 Citalopram Hydrobromide (CeleXA) 20 mg DAILY PO 07/12/17 09:00 07/15/17 09:56 Acyclovir (Zovirax) 400 mg Q8H PO 07/12/17 02:00 07/16/17 02:40 Fluconazole (Diflucan) 200 mg Q24H PO 07/13/17 11:00 07/15/17 12:36 Potassium Chloride 100 ml @ 25 mls/hr DAILY@1600 IV 07/14/17 16:00 07/17/17 18:00 07/15/17 17:41 Pantoprazole Sodium (Protonix) 40 mg DAILY PO 07/14/17 09:00 07/15/17 09:56 Sodium Chloride 1,000 ml @ 84 mls/hr [id number] IV 07/14/17 09:45 07/15/17 21:30 Vancomycin HCl 1500 mg/Sodium Chloride 515 ml @ 257.5 mls/ hr Q12H IV 07/14/17 20:00 07/15/17 22:15 Metronidazole 100 ml @ 100 mls/hr Q8H IV 07/15/17 10:00 07/16/17 02:41 Vancomycin HCl (Vancomycin 25 Mg/ml Liq) 500 mg QID PO 07/15/17 13:00 07/15/17 21:00 Objective Remarks GENERAL: Middle aged female, lying in bed in [facility]. SKIN: Warm and dry. +alopecia. HEAD: Normocephalic. EYES: No injection or drainage. MOUTH: several oral ulcers. NECK: Supple, trachea midline. quarter sized lymph node palpated, subinguinal area. CARDIOVASCULAR: Regular rate and rhythm RESPIRATORY: Breath sounds equal bilaterally. No accessory muscle use. GASTROINTESTINAL: Abdomen soft, non-tender, nondistended. EXTREMITIES: No cyanosis, or edema. NEUROLOGICAL: awake and alert. normal speech. moving all extremities. 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 give [address] neck for enlarging subinguinal LN? continue antibiotics. increase Magnesium to BID. continue IV Potassium. 07/15/17: D18. no transfusion. obtain blood cultures for fever spike last night. give potassium as ordered. monitor closely 07/14/17: D17. no transfusion. give IV potassium. notify cardiology of 6 beat run of V-tach overnight 07/13/17: D16. give 1unit pRBC, 1 unit platelets. facial swelling improved. start diflucan for thrush. 07/12/17: D15: no transfusion. monitor right-sided facial swelling. refusing MRI. continue antibiotics and lemon lozenges. 07/11/17: D14 No transfusion. Patient with right-sided facial swelling 07/10/17: D13 Hgb 7.9. Transfuse 1 unit irradiated PRBC's. K3.1. Transfuse total of 80 meq's to keep K greater than 4.0 per cardiology recs. Give 400mg magnesium oxide 4 mag level of 1.9 07/09/17: D12. hgb 8, platelet count of 7, will transfuse blood and platelets. 07/08/17: D11. continue antibiotics. monitor for fever 07/07/27: D10. give 1 unit pRBC and 1 unit platelets. continue antibiotics. 07/06/17: D9. no transfusion, spiked fever. start antibiotics, obtain cultures, u /a and chest x-ray. 07/05/17: D8. Transfuse 1 unit irradiated platelets today. Start Rydapt 50mg po BID x 14 days. 07/04/17: D7. no transfusion. monitor for fever 07/03/17: D6. 2 units pRBC. last day of chemotherapy 07/02/17: D5. 1 unit platelets. continue chemotherapy. 07/01/17: D4. 1 unit platelets. continue chemotherapy. 06/30/17: D3. Tolerating chemo. No transfusion today. 06/29/17: D2, give 2 units pRBC this AM. start chemotherapy this afternoon. 06/28/17: admission, D1 (2) Neutropenic fever ICD Codes: D70.9 - Neutropenia, unspecified; R50.81 - Fever presenting with conditions classified elsewhere Status: Acute Plan: --BC 07/13: no growth. --BC, 07/06 gram negative rods, Klebsiella Pneumoniae --CXR shows left basilar pleural parenchymal density --U/A neg --on Azactam, Flagyl, Zovirax, (3) C. difficile diarrhea ICD Codes: A04.72 - Enterocolitis due to Clostridium difficile, not specified as recurrent Plan: --on PO Vanco (4) Thrush ICD Codes: B37.0 - Candidal stomatitis Plan: --on diflucan, magic mouthwash. (5) Ventricular tachycardia (paroxysmal) ICD Codes: I47.2 - Ventricular tachycardia Plan: --seen by Dr. Barker, advises: keep her potassium levels above 4. Try to keep her magnesium levels near 2 or above. (6) Neck mass ICD Codes: R22.1 - Localized swelling, mass and lump, neck Plan: --likely enlarging LN, will obtain CT neck. Assessment 57y/o female admitted for salvage chemotherapy with FLAG-AKASH for refractory acute myeloid leukemia. h/o Rheumatoid arthritis. Anxiety disorder. COPD. Depression. Hypercholesterolemia. Hypertension. Irregular heartbeat Attending Statement The exam, history, and the medical decision-making described in the above note were completed with the assistance of the mid-level provider. I reviewed and agree with the findings presented. I attest that I had a [id number] encounter with the patient on the same day, and personally performed and documented my assessment and findings in the medical record. Pt again became ill last night with severe vomiting after taking Po Vanco. I have d/c 2 days ago and ID DR Odell restarted it.. I have again d/c it. She can not tolerate it. ID needs to come up with different meds for C diff such as Dificid. Pt is upset with the sickness. Plat tx today. CT of neck to evaluate for mass. monitor labs Julianna Mcdaniel Jul 16, 2017 08:57 April Fonseca MD Jul 16, 2017 17:08
[2017-07-16] MEDS ORDERED: SODIUM CHLOR 0.9% 250 ML INJ 250 ML IV ONE (09:00)
[2017-07-16] MEDS: [UNRECOGNIZED DRUG - OTHER] PO SCH ×2 (09:00→22:30)
[2017-07-16] MEDS: amLODIPine BESYLATE 5 MG TAB PO SCH (09:55)
[2017-07-16] MEDS: CARVEDILOL 3.125 MG TAB PO SCH (09:55)
[2017-07-16] MEDS: LOSARTAN 50 MG TAB PO SCH (09:55)
[2017-07-16] MEDS: diphenhydrAMINE HCL 25 MG CAP PO PRN (09:55)
[2017-07-16] MEDS: CITALOPRAM HYDROBROMIDE 20 MG TAB PO SCH (09:55)
[2017-07-16] MEDS: PANTOPRAZOLE SOD 40 MG DELAYED RELEASE TAB PO SCH (09:55)
[2017-07-16] MEDS: predniSONE 5 MG TAB PO SCH (09:55)
[2017-07-16] MEDS: MAGNESIUM OXIDE 400 MG TAB PO SCH ×2 (09:56→22:30)
[2017-07-16] MEDS: VANCOMYCIN 25 MG/ML SOLN 100 ML BOTTLE PO SCH (09:57)
[2017-07-16] MEDS: NYSTAT/DIPHENHY/LIDO MOUTHWASH (Adult) 120ML SWISH-SWAL SCH ×4 (09:57→22:33)
[2017-07-16] MEDS: VANCOMYCIN INJ 1,500 MG in SODIUM CHLORID 0.9% 500 ML INJ 500 ML IV SCH ×2 (11:39→22:29)
[2017-07-16] MEDS: FLUCONAZOLE 200 MG TAB PO SCH (11:40)
--- NOTE | 2017-07-16 15:42 | HHI.IDPN ---
Subjective Subjective Remarks + diarrhea co tender lump in L submandibular area - persistent , essentially no change + intermittent low grade fever T max 100.8 co poor tolerarilility of oral vancomycin Antibiotics azactam flagyl po vanco IV acyclovir ' Lines Line sites with no e.o infection Port site ok. Past Medical History Past h/o Kleb pneumo bacteremia in May 2017. Allergies: Coded Allergies: cefepime (Verified Allergy, Severe, HIVES, 06/25/17) latex (Unverified Allergy, Severe, Rash, 06/25/17) Sulfa (Sulfonamide Antibiotics) (Unverified Adverse Reaction, Severe, Vomiting, cramps, 06/25/17) Objective . Vital Signs Date Time Temp Pulse Resp B/P (MAP) Pulse Ox O2 Delivery O2 Flow Rate FiO2 07/16/17 12:10 98.8 89 16 122/65 07/16/17 11:30 99.3 96 16 126/79 95 07/16/17 11:30 99.3 96 16 126/79 (95) 95 07/16/17 08:00 99.0 104 16 183/88 (119) 95 07/16/17 06:00 100 07/16/17 05:30 98.8 07/16/17 05:00 90 07/16/17 04:00 96 07/16/17 03:30 100.8 100 16 147/88 (107) 93 07/16/17 02:00 102 07/16/17 01:00 94 07/16/17 00:00 98.3 100 14 128/77 (94) 93 07/16/17 00:00 88 07/15/17 23:00 84 07/15/17 21:00 88 07/15/17 20:00 95 07/15/17 20:00 99.7 85 16 127/73 (91) 95 07/15/17 19:00 96 07/15/17 16:00 98.3 91 14 138/71 (93) 93 07/16/17 07/16/17 07/17/17 15:00 23:00 07:00 Intake Total 264 ml Balance 264 ml Platelets 264 ml . Laboratory Tests Test 07/15/17 05:30 07/16/17 05:55 White Blood Count 0.1 TH/MM3 0.0 TH/MM3 Red Blood Count 2.89 MIL/MM3 2.80 MIL/MM3 Hemoglobin 8.6 GM/DL 8.4 GM/DL Hematocrit 23.7 % 22.8 % Mean Corpuscular Volume 82.3 FL 81.5 FL Mean Corpuscular Hemoglobin 30.0 PG 30.1 PG Mean Corpuscular Hemoglobin Concent 36.4 % 37.0 % Red Cell Distribution Width 12.9 % 12.7 % Platelet Count 13 TH/MM3 8 TH/MM3 Mean Platelet Volume 7.7 FL 7.8 FL Neutrophils # (Auto) TH/MM3 CBC Comment AUTO DIFF AUTO DIFF Differential Total Cells Counted 5 1 Lymphocytes % 100 % 100 % Neutrophils # (Manual) 0.0 TH/MM3 0.0 TH/MM3 Differential Comment FINAL DIFF MANUAL FINAL DIFF MANUAL Platelet Estimate RARE RARE Platelet Morphology Comment NORMAL NORMAL Laboratory Tests Test 07/15/17 05:30 07/15/17 12:32 07/16/17 05:55 Creatinine 0.45 MG/DL 0.38 MG/DL 0.41 MG/DL Estimat Glomerular Filtration Rate 143 ML/MIN 173 ML/MIN 159 ML/MIN Blood Urea Nitrogen 6 MG/DL 5 MG/DL Random Glucose 121 MG/DL 103 MG/DL Total Protein 6.3 GM/DL Albumin 2.5 GM/DL Calcium Level 8.4 MG/DL 8.6 MG/DL Alkaline Phosphatase 53 U/L Aspartate Amino Transf (AST/SGOT) 8 U/L Alanine Aminotransferase (ALT/SGPT) 13 U/L Total Bilirubin 1.0 MG/DL Sodium Level 138 MEQ/L 139 MEQ/L Potassium Level 3.6 MEQ/L 3.7 MEQ/L Chloride Level 103 MEQ/L 104 MEQ/L Carbon Dioxide Level 27.6 MEQ/L 27.9 MEQ/L Anion Gap 7 MEQ/L 7 MEQ/L Magnesium Level 2.0 MG/DL 1.9 MG/DL Microbiology Date/Time Source Procedure Growth Status 07/15/17 12:30 Blood Peripheral Aerobic Blood Culture - Preliminary NO GROWTH IN 1 DAY Resulted 07/15/17 12:30 Blood Peripheral Anaerobic Blood Culture - Preliminary NO GROWTH IN 1 DAY Resulted 07/15/17 12:30 Blood Line Aerobic Blood Culture - Preliminary NO GROWTH IN 1 DAY Resulted 07/15/17 12:30 Blood Line Anaerobic Blood Culture - Preliminary NO GROWTH IN 1 DAY Resulted 07/13/17 22:50 Blood Peripheral Aerobic Blood Culture - Preliminary NO GROWTH IN 3 DAYS Resulted 07/13/17 22:50 Blood Peripheral Anaerobic Blood Culture - Preliminary NO GROWTH IN 3 DAYS Resulted 07/13/17 22:50 Blood Line Aerobic Blood Culture - Preliminary NO GROWTH IN 3 DAYS Resulted 07/13/17 22:50 Blood Line Anaerobic Blood Culture - Preliminary NO GROWTH IN 3 DAYS Resulted 07/14/17 18:30 Stool Stool Stool Occult Blood (LAMAR) - Final HEMOCCULT NEGATIVE Complete Imaging Last Impressions Upper Extremity Ultrasound 07/11/17 0000 Signed Impressions: Service Date/Time: Tuesday, July 11, 2017 16:40 - CONCLUSION: Normal examination. Mt Vance MD Chest X-Ray 07/11/17 0000 Signed Impressions: Service Date/Time: Tuesday, July 11, 2017 16:26 - CONCLUSION: 1. Improvement in left basilar airspace disease since July 06. Cardiomegaly. No significant effusion. Jacinto Tello MD Head CT 07/08/17 0000 Signed Impressions: Service Date/Time: July 19:55 - CONCLUSION: No acute disease. Malcolm Coker MD Physical Exam CONSTITUTIONAL/GENERAL: This is an adequately nourished patient, in no apparent distress. TUBES/LINES/DRAINS: PORT in place R chest w/o e/o infection SKIN: No jaundice, rashes, or lesions. Alopecia EYES: Pupils equal and round and reactive. Extraocular motions intact. No scleral icterus. No injection or drainage. Fundi not examined. HEENT: mucositis, tongue ulcer (very shallow) Firm tender induration and milsd edema of R chick- improved + 3 cm tender non fluctant L submandubular mass - about the same in size and tenderness CARDIOVASCULAR: Regular rate and rhythm without murmurs, gallops, or rubs. No JVD. Peripheral pulses symmetric. RESPIRATORY/CHEST: Symmetric, unlabored respirations. Clear to auscultation. Breath sounds equal bilaterally. No wheezes, rales, or rhonchi. GASTROINTESTINAL: Abdomen soft, non-tender, nondistended. GENITOURINARY: Without palpable bladder distension. MUSCULOSKELETAL: Extremities without clubbing, cyanosis, or edema. NEUROLOGICAL: Awake and alert. Motor and sensory grossly within normal limits. Follows commands. Clear speech . Moves all extremities. PSYCHIATRIC: Cooperative Port site ok. Assessment & Plan Remarks Sepsis in an Immune compromised host. New fevers ? new infection. Kleb pneumo bacteremia ? source (PORT?) This appears recurrent similar Kleb pneumo bacteremia in May 2017. 2 D echo negative from 06/30 US negative for thrombosys Sialoadenitis/Parotitis. Cold sore ? HSV Possible line infection Severely immunocompromised, neutropenic. AML sp chemo Neutropenia, neutropenic fever - resolved - persistent absolute neutropenia; severe and persistent C.diff - more diarrhea - unable to tolerated oral vanco; it was steopped by hem/onc 06/11 excessive vomiting R sided parotitis, Staph including MRSA is primary consideration Recs: cont azactam IV (for Kleb pneumo) cont PO vancomycin (for Cdiff): cont at least 2 weeks - dose was increased to 500 start flagyl oral (for anaerobes for mouth jeromy given concern for sialoadenitis ) One time Vanco IV dose for possible new bacteremia given new fevers. Cont vancomycin cont oral acyclovir. Consider port removal if persistent fevers and or evidence of septic thrombophlebitis. PORT needs to be removed if recurrent Kleb pneumo bacteremia during or after treatment MOnitor WBC and temps will try Brittney Munguia dc, MD Jul 16, 2017 15:42
[2017-07-16] MEDS: POTASSIUM CHLOR 40 MEQ PREMIX 100 ML IV SCH (16:00)
[2017-07-16] MEDS: ALPRAZolam 0.5 MG TAB PO PRN (19:38)
[2017-07-16] MEDS: SODIUM CHLOR 0.9% 1000 ML INJ 1,000 ML IV SCH (21:20)
[2017-07-16] MEDS: PROCHLORPERAZINE INJ 10 MG/2 ML VIAL IV PUSH PRN (22:29)
[2017-07-16] MEDS: FIDAXOMICIN 200 MG TAB PO SCH (22:29)
[2017-07-16] MEDS: METOCLOPRAMIDE INJ 10 MG in SODIUM CHLORIDE 0.9% INJ 50 ML IV SCH (22:31)
[2017-07-17] VITALS (18 sets, daily range): BP systolic 112–160; BP diastolic 63–92; PULSE 87–122; RESP 16–20; TEMP 98.4–100.8; O2SAT 92–96
[2017-07-17] MEDS: AZTREONAM INJ 2,000 MG in SODIUM CHLORIDE 0.9% INJ 100 ML IV SCH ×4 (01:06→17:15)
[2017-07-17] MEDS: ACYCLOVIR 200 MG CAP PO SCH ×3 (01:11→17:15)
[2017-07-17] MEDS: ACETAMINOPHEN 325 MG TAB PO PRN ×2 (04:58→22:26)
[2017-07-17 07:08] LABS: BICARBONATE 27.9 MEQ/L (21.0-32.0); CALCIUM 8.2 MG/DL (8.5-10.1); CREATININE 0.34 MG/DL (0.50-1.00); MAGNESIUM 1.9 MG/DL (1.5-2.5)
[2017-07-17] MEDS ORDERED: POTASSIUM CHLOR 40 MEQ PREMIX 100 ML IV SCH (07:45)
[2017-07-17] MEDS: MAGNESIUM OXIDE 400 MG TAB PO SCH ×2 (08:28→20:32)
[2017-07-17] MEDS: predniSONE 5 MG TAB PO SCH (08:28)
[2017-07-17] MEDS: [UNRECOGNIZED DRUG - OTHER] PO SCH ×3 (08:28→22:24)
[2017-07-17] MEDS: CARVEDILOL 3.125 MG TAB PO SCH (08:28)
[2017-07-17] MEDS: PANTOPRAZOLE SOD 40 MG DELAYED RELEASE TAB PO SCH (08:28)
[2017-07-17] MEDS: FIDAXOMICIN 200 MG TAB PO SCH ×2 (08:28→20:32)
[2017-07-17] MEDS: amLODIPine BESYLATE 5 MG TAB PO SCH (08:28)
[2017-07-17] MEDS: CITALOPRAM HYDROBROMIDE 20 MG TAB PO SCH (08:28)
[2017-07-17] MEDS: LOSARTAN 50 MG TAB PO SCH (08:28)
[2017-07-17] MEDS: NYSTAT/DIPHENHY/LIDO MOUTHWASH (Adult) 120ML SWISH-SWAL SCH ×4 (08:29→20:32)
[2017-07-17] MEDS ORDERED: POTASSIUM CHLORIDE 20 MEQ CONTROLLED RELEASE TAB PO ONE (09:00)
[2017-07-17] MEDS: FLUCONAZOLE 200 MG TAB PO SCH (09:14)
--- NOTE | 2017-07-17 09:14 | PD.ONC.PN ---
Subjective Subjective Remarks T-max 100.4 last night Patient reports "I actually slept okay" Denies nausea Tolerating the Dificid better than the oral Vanco Reports she is having some soreness around her Fyqfcc-j-Ydzd site due to multiple sticks Per RN, they have had a difficult time getting blood return Objective Data Date Time Temp Pulse Resp B/P (MAP) Pulse Ox O2 Delivery O2 Flow Rate FiO2 07/17/17 07:00 96 07/17/17 06:00 100 07/17/17 05:58 16 07/17/17 05:00 99.5 102 18 160/92 (114) 95 07/17/17 05:00 122 07/17/17 04:05 87 07/17/17 03:00 92 07/17/17 02:00 92 07/17/17 01:00 94 07/17/17 00:50 98.4 92 16 136/81 (99) 96 07/17/17 00:05 89 07/16/17 23:00 102 07/16/17 22:00 118 07/16/17 20:10 100.4 101 16 135/83 (100) 95 07/16/17 20:02 97 07/16/17 19:00 112 07/16/17 16:00 99.2 96 16 134/72 (92) 93 07/16/17 12:10 98.8 89 16 122/65 07/16/17 11:30 99.3 96 16 126/79 95 07/16/17 11:30 99.3 96 16 126/79 (95) 95 Result Diagram: 07/16/17 0555 07/17/17 0540 Laboratory Results Laboratory Tests Test 07/16/17 09:45 07/17/17 05:40 Vancomycin Level Trough 9.8 MCG/ML Blood Urea Nitrogen 7 MG/DL Creatinine 0.34 MG/DL Random Glucose 102 MG/DL Calcium Level 8.2 MG/DL Magnesium Level 1.9 MG/DL Sodium Level 140 MEQ/L Potassium Level 3.0 MEQ/L Chloride Level 102 MEQ/L Carbon Dioxide Level 27.9 MEQ/L Anion Gap 10 MEQ/L Estimat Glomerular Filtration Rate 197 ML/MIN Culture Results Microbiology Date/Time Source Procedure Growth Status 07/15/17 12:30 Blood Peripheral Aerobic Blood Culture - Preliminary NO GROWTH IN 1 DAY Resulted 07/15/17 12:30 Blood Peripheral Anaerobic Blood Culture - Preliminary NO GROWTH IN 1 DAY Resulted 07/15/17 12:30 Blood Line Aerobic Blood Culture - Preliminary NO GROWTH IN 1 DAY Resulted 07/15/17 12:30 Blood Line Anaerobic Blood Culture - Preliminary NO GROWTH IN 1 DAY Resulted 07/14/17 18:30 Stool Stool Stool Occult Blood (LAMAR) - Final HEMOCCULT NEGATIVE Complete Administered Medications Medications (Trade) Dose Ordered Sig/Zeynep Route PRN Reason Start Time Stop Time Status Last Admin Dose Admin Carvedilol (Coreg) 3.125 mg DAILY PO 06/29/17 09:00 Future hold 07/17/17 08:28 Prednisone (Deltasone) 5 mg DAILY PO 06/29/17 09:00 07/17/17 08:28 Losartan Potassium (Cozaar) 100 mg DAILY PO 06/29/17 09:00 07/17/17 08:28 Al Hydrox/Mg Hydrox/Simethicone (Mag-Al Plus Susp Liq) 15 ml Q6H PRN PO INDIGESTION 06/28/17 20:45 07/05/17 13:52 Multi-Ingredient Mouthwash/Gargle (Magic Mouthwash Adult Liq) 5 ml QID SWISH-SWAL 06/29/17 13:00 07/17/17 08:29 Ondansetron HCl (Zofran Inj) 4 mg Q6HR PRN IV PUSH nausea 06/29/17 10:15 07/16/17 02:38 Diphenhydramine HCl (Benadryl) 25 mg Q6H PRN PO itching 06/30/17 10:45 07/16/17 09:55 Acetaminophen (Tylenol) 650 mg Q4H PRN PO fever>100.4, PREMED, orpain1-2 07/01/17 10:45 07/17/17 04:58 Melatonin (Melatonin) 5 mg HS PRN PO insomnia 07/02/17 21:00 07/11/17 21:05 Carboxymethylcellulose Sodium (Refresh Tears 0.5% Opth Soln) 1 drop Q6H PRN EACH EYE dry eyes 07/04/17 11:30 07/04/17 19:44 Patient Own Medication PT OWN MED: RYD... BID PO 07/05/17 11:30 07/18/17 21:01 07/17/17 08:28 Prochlorperazine Edisylate (Compazine Inj) 10 mg Q8H PRN IV PUSH nausea 07/05/17 10:15 07/16/17 22:29 Alprazolam (Xanax) 0.25 mg Q8HR PRN PO anxiety 07/06/17 10:00 07/16/17 19:38 Albuterol/ Ipratropium (Duoneb Neb) 1 ampule Q6HR NEB PRN NEB SHORTNESS OF BREATH 07/06/17 18:00 07/07/17 20:44 Guaifenesin/ Codeine Phosphate (Robitussin Ac 200-20 Mg/10 ml Liq) 10 ml Q4H PRN PO cough 07/07/17 13:30 07/11/17 21:05 Amlodipine Besylate (Norvasc) 5 mg DAILY PO 07/08/17 19:00 07/17/17 08:28 Aztreonam 2000 mg/ Sodium Chloride 100 ml @ 200 mls/hr Q6H IV 07/11/17 00:00 07/17/17 06:29 Citalopram Hydrobromide (CeleXA) 20 mg DAILY PO 07/12/17 09:00 07/17/17 08:28 Acyclovir (Zovirax) 400 mg Q8H PO 07/12/17 02:00 07/17/17 01:11 Fluconazole (Diflucan) 200 mg Q24H PO 07/13/17 11:00 07/16/17 11:40 Metoclopramide HCl 10 mg/Sodium Chloride 52 ml @ 104 mls/hr DAILY@2000 IV 07/14/17 20:00 07/16/17 22:31 Potassium Chloride 100 ml @ 25 mls/hr DAILY@1600 IV 07/14/17 16:00 07/17/17 18:00 07/15/17 17:41 Pantoprazole Sodium (Protonix) 40 mg DAILY PO 07/14/17 09:00 07/17/17 08:28 Sodium Chloride 1,000 ml @ 84 mls/hr [id number] IV 07/14/17 09:45 07/15/17 21:30 Vancomycin HCl 1500 mg/Sodium Chloride 515 ml @ 257.5 mls/ hr Q12H IV 07/14/17 20:00 07/16/17 22:29 Magnesium Oxide (Mag-Ox) 400 mg BID PO 07/16/17 09:00 07/17/17 08:28 Fidaxomicin (Dificid) 200 mg BID PO 07/16/17 21:00 07/26/17 20:59 07/17/17 08:28 Objective Remarks GENERAL: Middle aged female upright in bed in no distress SKIN: Warm and dry. Bruise to lateral side right breast. Wwltce-o-Uthg to right upper chest HEAD: Normocephalic. +Alopecia. Right-sided facial swelling improved EYES: No injection or drainage. NECK: Supple, trachea midline. CARDIOVASCULAR: Regular rate and rhythm RESPIRATORY: Breath sounds equal bilaterally. No accessory muscle use. GASTROINTESTINAL: Abdomen soft, non-tender, nondistended. EXTREMITIES: No cyanosis. No edema NEUROLOGICAL: Awake and alert, normal speech. 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 May have to have vascular place peripheral IV if unable to get blood return from infusaport. Replace Potassium today. Await CT neck. Pt agrees to imaging. 07/16/17: D19. give [address] neck for enlarging subinguinal LN ? continue antibiotics. increase Magnesium to BID. continue IV Potassium. 07/15/17: D18. no transfusion. obtain blood cultures for fever spike last night. give potassium as ordered. monitor closely 07/14/17: D17. no transfusion. give IV potassium. notify cardiology of 6 beat run of V-tach overnight 07/13/17: D16. give 1unit pRBC, 1 unit platelets. facial swelling improved. start diflucan for thrush. 07/12/17: D15: no transfusion. monitor right-sided facial swelling. refusing MRI. continue antibiotics and lemon lozenges. 07/11/17: D14 No transfusion. Patient with right-sided facial swelling 07/10/17: D13 Hgb 7.9. Transfuse 1 unit irradiated PRBC's. K3.1. Transfuse total of 80 meq's to keep K greater than 4.0 per cardiology recs. Give 400mg magnesium oxide 4 mag level of 1.9 07/09/17: D12. hgb 8, platelet count of 7, will transfuse blood and platelets. 07/08/17: D11. continue antibiotics. monitor for fever 07/07/27: D10. give 1 unit pRBC and 1 unit platelets. continue antibiotics. 07/06/17: D9. no transfusion, spiked fever. start antibiotics, obtain cultures, u /a and chest x-ray. 07/05/17: D8. Transfuse 1 unit irradiated platelets today. Start Rydapt 50mg po BID x 14 days. 07/04/17: D7. no transfusion. monitor for fever 07/03/17: D6. 2 units pRBC. last day of chemotherapy 07/02/17: D5. 1 unit platelets. continue chemotherapy. 07/01/17: D4. 1 unit platelets. continue chemotherapy. 06/30/17: D3. Tolerating chemo. No transfusion today. 06/29/17: D2, give 2 units pRBC this AM. start chemotherapy this afternoon. 06/28/17: admission, D1 (2) Neutropenic fever ICD Codes: D70.9 - Neutropenia, unspecified; R50.81 - Fever presenting with conditions classified elsewhere Status: Acute Plan: --BC 07/15: no growth. --BC, 07/06 gram negative rods, Klebsiella Pneumoniae --CXR shows left basilar pleural parenchymal density --U/A neg (3) C. difficile diarrhea ICD Codes: A04.72 - Enterocolitis due to Clostridium difficile, not specified as recurrent Plan: --on PO Dificid (4) Thrush ICD Codes: B37.0 - Candidal stomatitis Plan: --on diflucan, magic mouthwash. (5) Ventricular tachycardia (paroxysmal) ICD Codes: I47.2 - Ventricular tachycardia Plan: --seen by Dr. Barker, advises: keep her potassium levels above 4. Try to keep her magnesium levels near 2 or above. (6) Neck mass ICD Codes: R22.1 - Localized swelling, mass and lump, neck Plan: --likely enlarging LN, will obtain CT neck. Assessment 57y/o female admitted for salvage chemotherapy with FLAG-AKASH for refractory acute myeloid leukemia. h/o Rheumatoid arthritis. Anxiety disorder. COPD. Depression. Hypercholesterolemia. Hypertension. Irregular heartbeat Attending Statement The exam, history, and the medical decision-making described in the above note were completed with the assistance of the mid-level provider. I reviewed and agree with the findings presented. I attest that I had a [id number] encounter with the patient on the same day, and personally performed and documented my assessment and findings in the medical record. Has low grade fever Overall feels better Diarrhea has improved CT neck shows cellulitis BM bx on wednesday ( Day 21) mAina Castellanos Jul 17, 2017 09:14 April Fonseca MD Jul 18, 2017 00:00
[2017-07-17 09:15] LABS: HEMATOCRIT 22.4 % (35.0-46.0); MEAN CELL VOLUME 80.8 FL (80.0-100.0); MEAN CORPUSCULAR HEMOGLOBIN 28.9 PG (27.0-34.0); MEAN CORPUSCULAR HGB CONC 35.8 % (32.0-36.0); MEAN PLATELET VOLUME 6.3 FL (7.0-11.0); PLATELET COUNT 28 TH/MM3 (150-450); RED BLOOD COUNT 2.78 MIL/MM3 (4.00-5.30); RED CELL DISTRIBUTION WIDTH 12.8 % (11.6-17.2)
[2017-07-17] MEDS: PROCHLORPERAZINE INJ 10 MG/2 ML VIAL IV PUSH PRN ×2 (09:15→14:34)
[2017-07-17] MEDS: SODIUM CHLOR 0.9% 1000 ML INJ 1,000 ML IV SCH ×2 (09:15→20:33)
[2017-07-17] MEDS: VANCOMYCIN INJ 1,500 MG in SODIUM CHLORID 0.9% 500 ML INJ 500 ML IV SCH (09:40)
[2017-07-17 09:57] LABS: LYMPHOCYTES 100 % (9-44)
[2017-07-17] MEDS: diphenhydrAMINE HCL 25 MG CAP PO PRN (11:00)
[2017-07-17] MEDS: ONDANSETRON HCL 4 MG/2 ML VIAL IV PUSH PRN (11:00)
[2017-07-17] MEDS: POTASSIUM CHLOR 20 MEQ PREMIX 100 ML IV SCH ×2 (12:00→14:00)
--- NOTE | 2017-07-17 14:20 | RADRPT ---
EXAM DATE/TIME: 07/17/2017 13:49 [facility] COMPARISON: CHEST SINGLE AP, July 11, 2017, 16:26. INDICATIONS : Cough. MEDICAL HISTORY : Hypercholesterolemia. Hypertension. Chronic obstructive pulmonary disease. Coronary artery disease.A sthma. Cervical cancer. Leukemia. SURGICAL HISTORY : Cholecystectomy. Tubal ligation. Cardiac catheterization. Leep procedure. Hysterectomy. ENCOUNTER: Subsequent ACUITY: 2 weeks PAIN SCORE: 0/10 LOCATION: Bilateral chest FINDINGS: Single AP view of the chest. Right-sided Fymsqe-p-Kbzl remains in place. Mild patchy peripheral lower lung zone opacity unchanged. Cardiac silhouette mildly prominent but unchanged. No evidence of pleur al effusion or pneumothorax. CONCLUSION: Mild patchy peripheral lower lung zone opacity unchanged. Mild chronic cardiac silhouette enlargement . Logan Walton MD on July 17, 2017 at 14:17 Board Certified Radiologist. This report was verified electronically.
[2017-07-17] MEDS: ALPRAZolam 0.5 MG TAB PO PRN ×2 (14:43→22:32)
[2017-07-17] MEDS ORDERED: ACETAMINOPHEN 1000 MG/100 ML 100 ML IV ONE (15:30)
[2017-07-17] MEDS ORDERED: IOHEXOL 350 MG/ML 10 ML VIAL (for RAD DIAG) IVCONTRAST ONE (16:35)
[2017-07-17 16:56] LABS: BILIRUBIN, URINE NEG (NEG); BLOOD, URINE NEG (NEG); GLUCOSE,URINE NEG (NEG); KETONE, URINE 40 mg/dL (NEG); MUCUS URINE FEW /lpf (OCC); NITRITE,URINE NEG (NEG); SQUAMOUS EPITHELIAL CELL URINE 1 /hpf (0-5); URINE COLOR YELLOW (YELLW/STRAW); URINE LEUKOCYTE ESTERASE NEG (NEG)
--- NOTE | 2017-07-17 17:41 | RADRPT ---
EXAM DATE/TIME: 07/17/2017 16:22 [facility] COMPARISON: No previous studies available for comparison. INDICATIONS : Sublingual swelling. IV CONTRAST: 70 cc Omnipaque 350 (iohexol) IV RADIATION DOSE: 23.03 CTDIvol (mGy) ; Patient body habitus MEDICAL HISTORY : Leukemia. Lupus. SURGICAL HISTORY : nasal surgery ENCOUNTER: Initial ACUITY: 1 day PAIN SCALE: 5/10 LOCATION: Bilateral neck TECHNIQUE: Volumetric scanning of the neck was performed. Using automated exposure control and adjustment of th e mA and/or kV according to patient size, radiation dose was kept as low as reasonably achievable to obtain optimal diagnostic quality images. DICOM format image data is available electronically for r eview and comparison. FINDINGS: There is stranding of fat in the submandibular anterior soft tissues most are consistent with mild ce llulitis. No discrete fluid collections to suggest abscess. Inflammatory changes extend to a lesser d egree into the deeper anterior soft tissues anterior to the carotid arteries. No pathologically enlar ged lymph nodes are identified. There is some inflammation around subcentimeter lymph nodes predomina ntly along the left carotid lymph node chain. No acute bony abnormalities. Right-sided IJ line present. No airway obstructing lesions. CONCLUSION: Stranding of fat in the submandibular anterior soft tissues extending into the deeper soft tissues an terior to the carotid arteries, worse on the left side. There is also some mild inflammatory changes around subcentimeter lymph nodes along the left carotid lymph node chain. Findings are most character istic of a cellulitis with some early reactive changes in the left-sided cervical lymph nodes. Jacinto Tello MD on July 17, 2017 at 17:36 Board Certified Radiologist. This report was verified electronically.
[2017-07-17] MEDS: POTASSIUM CHLOR 40 MEQ PREMIX 100 ML IV SCH (18:33)
[2017-07-17] MEDS: METOCLOPRAMIDE INJ 10 MG in SODIUM CHLORIDE 0.9% INJ 50 ML IV SCH (20:33)
[2017-07-18] VITALS (23 sets, daily range): BP systolic 118–175; BP diastolic 61–91; PULSE 81–122; RESP 16–20; TEMP 97.5–103.9; O2SAT 91–97
[2017-07-18] MEDS: VANCOMYCIN INJ 1,750 MG in SODIUM CHLORID 0.9% 500 ML INJ 500 ML IV SCH ×3 (00:09→21:08)
[2017-07-18] MEDS: ACYCLOVIR 200 MG CAP PO SCH ×3 (03:32→18:00)
[2017-07-18] MEDS: AZTREONAM INJ 2,000 MG in SODIUM CHLORIDE 0.9% INJ 100 ML IV SCH ×2 (03:32→07:12)
[2017-07-18] MEDS: ACETAMINOPHEN 325 MG TAB PO PRN ×4 (03:40→23:29)
[2017-07-18 06:56] LABS: MEAN CORPUSCULAR HEMOGLOBIN 29.6 PG (27.0-34.0); MEAN PLATELET VOLUME 6.4 FL (7.0-11.0); RED BLOOD COUNT 2.24 MIL/MM3 (4.00-5.30); RED CELL DISTRIBUTION WIDTH 12.8 % (11.6-17.2)
[2017-07-18 06:58] LABS: MEAN CORPUSCULAR HGB CONC 36.6 % (32.0-36.0)
[2017-07-18 07:01] LABS: HEMOGLOBIN 6.6 GM/DL (11.6-15.3)
[2017-07-18 07:02] LABS: HEMATOCRIT 18.2 % (35.0-46.0); PLATELET COUNT 15 TH/MM3 (150-450)
[2017-07-18 07:03] LABS: BICARBONATE 28.9 MEQ/L (21.0-32.0); CALCIUM 8.5 MG/DL (8.5-10.1); CREATININE 0.39 MG/DL (0.50-1.00)
[2017-07-18] MEDS ORDERED: SODIUM CHLOR 0.9% 250 ML INJ 250 ML IV ONE (07:30)
[2017-07-18] MEDS: FIDAXOMICIN 200 MG TAB PO SCH ×2 (07:54→20:59)
[2017-07-18] MEDS: PANTOPRAZOLE SOD 40 MG DELAYED RELEASE TAB PO SCH (07:54)
[2017-07-18] MEDS: LOSARTAN 50 MG TAB PO SCH (07:55)
[2017-07-18] MEDS: MAGNESIUM OXIDE 400 MG TAB PO SCH ×2 (07:55→20:59)
[2017-07-18] MEDS: NYSTAT/DIPHENHY/LIDO MOUTHWASH (Adult) 120ML SWISH-SWAL SCH ×4 (07:55→21:00)
[2017-07-18] MEDS: CARVEDILOL 3.125 MG TAB PO SCH (07:55)
[2017-07-18] MEDS: amLODIPine BESYLATE 5 MG TAB PO SCH (07:55)
[2017-07-18] MEDS: predniSONE 5 MG TAB PO SCH (07:55)
[2017-07-18] MEDS: SODIUM CHLOR 0.9% 1000 ML INJ 1,000 ML IV SCH ×2 (07:56→21:09)
[2017-07-18 08:09] LABS: LYMPHOCYTES 100 % (9-44)
[2017-07-18] MEDS: CITALOPRAM HYDROBROMIDE 20 MG TAB PO SCH (09:00)
--- NOTE | 2017-07-18 09:20 | PD.ONC.PN ---
Subjective Subjective Remarks T-max 101.1 this a.m. Patient reports her stomach feels better after not taking the Rydapt last night Reports she has pain in her neck only when she presses on it No vomiting Objective Data Date Time Temp Pulse Resp B/P (MAP) Pulse Ox O2 Delivery O2 Flow Rate FiO2 07/18/17 08:36 89 07/18/17 08:05 84 Nasal Cannula 2.00 07/18/17 07:59 98.8 94 16 139/78 (98) 97 07/18/17 06:02 101.1 07/18/17 04:00 111 07/18/17 03:30 100.1 07/18/17 00:12 101.1 111 16 118/61 (80) 91 07/18/17 00:00 102 07/17/17 22:27 100.8 07/17/17 20:26 98.7 97 17 125/82 (96) 94 07/17/17 20:00 88 07/17/17 17:38 87 07/17/17 16:10 99.8 97 18 112/63 (79) 92 07/17/17 13:53 106 07/17/17 12:12 100.7 101 20 118/77 (91) 92 07/17/17 09:49 98.5 105 18 139/87 (104) 94 07/18/17 07/18/17 07/18/17 07:00 15:00 23:00 Intake Total 1970 ml Balance 1970 ml Result Diagram: 07/18/17 0550 07/18/17 0050 Laboratory Results Laboratory Tests Test 07/17/17 14:15 07/18/17 00:50 07/18/17 05:50 Urine Color YELLOW Urine Turbidity CLEAR Urine pH 7.0 Urine Specific Odell 1.013 Urine Protein TRACE mg/dL Urine Glucose (UA) NEG mg/dL Urine Ketones 40 mg/dL Urine Occult Blood NEG Urine Nitrite NEG Urine Bilirubin NEG Urine Urobilinogen LESS THAN 2.0 MG/DL Urine Leukocyte Esterase NEG Urine RBC 1 /hpf Urine WBC 1 /hpf Urine Squamous Epithelial Cells 1 /hpf Urine Mucus FEW /lpf Microscopic Urinalysis Comment CULT NOT INDICATED Blood Urea Nitrogen 5 MG/DL Creatinine 0.39 MG/DL Random Glucose 107 MG/DL Calcium Level 8.5 MG/DL Magnesium Level 2.0 MG/DL Sodium Level 138 MEQ/L Potassium Level 3.4 MEQ/L Chloride Level 102 MEQ/L Carbon Dioxide Level 28.9 MEQ/L Anion Gap 7 MEQ/L Estimat Glomerular Filtration Rate 168 ML/MIN White Blood Count 0.0 TH/MM3 Red Blood Count 2.24 MIL/MM3 Hemoglobin 6.6 GM/DL Hematocrit 18.2 % Mean Corpuscular Volume 81.0 FL Mean Corpuscular Hemoglobin 29.6 PG Mean Corpuscular Hemoglobin Concent 36.6 % Red Cell Distribution Width 12.8 % Platelet Count 15 TH/MM3 Mean Platelet Volume 6.4 FL CBC Comment AUTO DIFF Differential Total Cells Counted 1 Lymphocytes % 100 % Neutrophils # (Manual) 0.0 TH/MM3 Differential Comment FINAL DIFF MANUAL Platelet Estimate RARE Platelet Morphology Comment NORMAL Red Cell Morphology Comment Culture Results Microbiology Date/Time Source Procedure Growth Status 07/17/17 13:26 Blood Line Aerobic Blood Culture Pending Received 07/17/17 13:26 Blood Line Anaerobic Blood Culture Pending Received 07/17/17 13:20 Blood Line Aerobic Blood Culture Pending Received 07/17/17 13:20 Blood Line Anaerobic Blood Culture Pending Received 07/15/17 12:30 Blood Peripheral Aerobic Blood Culture - Preliminary NO GROWTH IN 2 DAYS Resulted 07/15/17 12:30 Blood Peripheral Anaerobic Blood Culture - Preliminary NO GROWTH IN 2 DAYS Resulted 07/15/17 12:30 Blood Line Aerobic Blood Culture - Preliminary NO GROWTH IN 2 DAYS Resulted 07/15/17 12:30 Blood Line Anaerobic Blood Culture - Preliminary NO GROWTH IN 2 DAYS Resulted Administered Medications Medications (Trade) Dose Ordered Sig/Zeynep Route PRN Reason Start Time Stop Time Status Last Admin Dose Admin Carvedilol (Coreg) 3.125 mg DAILY PO 06/29/17 09:00 Future hold 07/18/17 07:55 Prednisone (Deltasone) 5 mg DAILY PO 06/29/17 09:00 07/18/17 07:55 Losartan Potassium (Cozaar) 100 mg DAILY PO 06/29/17 09:00 07/18/17 07:55 Al Hydrox/Mg Hydrox/Simethicone (Mag-Al Plus Susp Liq) 15 ml Q6H PRN PO INDIGESTION 06/28/17 20:45 07/05/17 13:52 Multi-Ingredient Mouthwash/Gargle (Magic Mouthwash Adult Liq) 5 ml QID SWISH-SWAL 06/29/17 13:00 07/17/17 08:29 Ondansetron HCl (Zofran Inj) 4 mg Q6HR PRN IV PUSH nausea 06/29/17 10:15 07/17/17 11:00 Diphenhydramine HCl (Benadryl) 25 mg Q6H PRN PO itching 06/30/17 10:45 07/17/17 11:00 Acetaminophen (Tylenol) 650 mg Q4H PRN PO fever>100.4, PREMED, orpain1-2 07/01/17 10:45 07/18/17 03:40 Melatonin (Melatonin) 5 mg HS PRN PO insomnia 07/02/17 21:00 07/11/17 21:05 Carboxymethylcellulose Sodium (Refresh Tears 0.5% Opth Soln) 1 drop Q6H PRN EACH EYE dry eyes 07/04/17 11:30 07/04/17 19:44 Patient Own Medication PT OWN MED: RYD... BID PO 07/05/17 11:30 07/18/17 21:01 07/17/17 08:28 Prochlorperazine Edisylate (Compazine Inj) 10 mg Q8H PRN IV PUSH nausea 07/05/17 10:15 07/17/17 14:34 Alprazolam (Xanax) 0.25 mg Q8HR PRN PO anxiety 07/06/17 10:00 07/17/17 22:32 Albuterol/ Ipratropium (Duoneb Neb) 1 ampule Q6HR NEB PRN NEB SHORTNESS OF BREATH 07/06/17 18:00 07/07/17 20:44 Guaifenesin/ Codeine Phosphate (Robitussin Ac 200-20 Mg/10 ml Liq) 10 ml Q4H PRN PO cough 07/07/17 13:30 07/11/17 21:05 Amlodipine Besylate (Norvasc) 5 mg DAILY PO 07/08/17 19:00 07/18/17 07:55 Aztreonam 2000 mg/ Sodium Chloride 100 ml @ 200 mls/hr Q6H IV 07/11/17 00:00 07/18/17 07:12 Citalopram Hydrobromide (CeleXA) 20 mg DAILY PO 07/12/17 09:00 07/17/17 08:28 Acyclovir (Zovirax) 400 mg Q8H PO 07/12/17 02:00 07/18/17 03:32 Fluconazole (Diflucan) 200 mg Q24H PO 07/13/17 11:00 07/17/17 09:14 Metoclopramide HCl 10 mg/Sodium Chloride 52 ml @ 104 mls/hr DAILY@2000 IV 07/14/17 20:00 07/17/17 20:33 Pantoprazole Sodium (Protonix) 40 mg DAILY PO 07/14/17 09:00 07/18/17 07:54 Sodium Chloride 1,000 ml @ 84 mls/hr [id number] IV 07/14/17 09:45 07/18/17 07:56 Magnesium Oxide (Mag-Ox) 400 mg BID PO 07/16/17 09:00 07/18/17 07:55 Fidaxomicin (Dificid) 200 mg BID PO 07/16/17 21:00 07/26/17 20:59 07/18/17 07:54 Vancomycin HCl 1750 mg/Sodium Chloride 517.5 ml @ 250 mls/hr Q12H IV 07/17/17 20:00 07/18/17 07:54 Objective Remarks GENERAL: Middle aged female upright in bed in no distress SKIN: Warm and dry. Bruise to lateral side right breast. Tfteov-t-Skub to right upper chest HEAD: Normocephalic. +Alopecia. Right-sided facial swelling improved EYES: No injection or drainage. NECK: Supple, trachea midline. CARDIOVASCULAR: Regular rate and rhythm RESPIRATORY: Breath sounds equal bilaterally. No accessory muscle use. GASTROINTESTINAL: Abdomen soft, non-tender, nondistended. EXTREMITIES: No cyanosis. No edema NEUROLOGICAL: Awake and alert, normal speech. 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 Transfuse 2 units packed red blood cells for hemoglobin of 6.6. Plan to transfuse a total of 80 mEq potassium for level 3.4 today. Repeat bone marrow biopsy in a.m. 07/17/17: D20:Await CBC today. May have to have vascular place peripheral IV if unable to get blood return from Ijfikx-j-Lydl. Replace Potassium today. Await CT neck. Pt agrees to imaging. 07/16/17: D19. give [address] neck for enlarging subinguinal LN ? continue antibiotics. increase Magnesium to BID. continue IV Potassium. 07/15/17: D18. no transfusion. obtain blood cultures for fever spike last night. give potassium as ordered. monitor closely 07/14/17: D17. no transfusion. give IV potassium. notify cardiology of 6 beat run of V-tach overnight 07/13/17: D16. give 1unit pRBC, 1 unit platelets. facial swelling improved. start diflucan for thrush. 07/12/17: D15: no transfusion. monitor right-sided facial swelling. refusing MRI. continue antibiotics and lemon lozenges. 07/11/17: D14 No transfusion. Patient with right-sided facial swelling 07/10/17: D13 Hgb 7.9. Transfuse 1 unit irradiated PRBC's. K3.1. Transfuse total of 80 meq's to keep K greater than 4.0 per cardiology recs. Give 400mg magnesium oxide 4 mag level of 1.9 07/09/17: D12. hgb 8, platelet count of 7, will transfuse blood and platelets. 07/08/17: D11. continue antibiotics. monitor for fever 07/07/27: D10. give 1 unit pRBC and 1 unit platelets. continue antibiotics. 07/06/17: D9. no transfusion, spiked fever. start antibiotics, obtain cultures, u /a and chest x-ray. 07/05/17: D8. Transfuse 1 unit irradiated platelets today. Start Rydapt 50mg po BID x 14 days. 07/04/17: D7. no transfusion. monitor for fever 07/03/17: D6. 2 units pRBC. last day of chemotherapy 07/02/17: D5. 1 unit platelets. continue chemotherapy. 07/01/17: D4. 1 unit platelets. continue chemotherapy. 06/30/17: D3. Tolerating chemo. No transfusion today. 06/29/17: D2, give 2 units pRBC this AM. start chemotherapy this afternoon. 06/28/17: admission, D1 (2) Neutropenic fever ICD Codes: D70.9 - Neutropenia, unspecified; R50.81 - Fever presenting with conditions classified elsewhere Status: Acute Plan: --BC 07/15: no growth. --BC, 07/06 gram negative rods, Klebsiella Pneumoniae --CXR shows left basilar pleural parenchymal density --U/A neg (3) C. difficile diarrhea ICD Codes: A04.72 - Enterocolitis due to Clostridium difficile, not specified as recurrent Plan: --on PO Dificid (4) Thrush ICD Codes: B37.0 - Candidal stomatitis Plan: --on diflucan, magic mouthwash. (5) Ventricular tachycardia (paroxysmal) ICD Codes: I47.2 - Ventricular tachycardia Plan: --seen by Dr. Barker, advises: keep her potassium levels above 4. Try to keep her magnesium levels near 2 or above. (6) Neck mass ICD Codes: R22.1 - Localized swelling, mass and lump, neck Plan: -- CT of the neck shows findings characteristic of cellulitis with early reactive changes in the left-sided cervical lymph nodes. Assessment 57y/o female admitted for salvage chemotherapy with FLAG-AKASH for refractory acute myeloid leukemia. h/o Rheumatoid arthritis. Anxiety disorder. COPD. Depression. Hypercholesterolemia. Hypertension. Irregular heartbeat Attending Statement The exam, history, and the medical decision-making described in the above note were completed with the assistance of the mid-level provider. I reviewed and agree with the findings presented. I attest that I had a [id number] encounter with the patient on the same day, and personally performed and documented my assessment and findings in the medical record. NO more vomiting. Rydapt stopped. Diarrhea improved. ANC is 0. Has low grade fever. BC are neg. A/B per ID. day 21 BM tomorrow. PRBC today. Amina Castellanos Jul 18, 2017 09:20 April Fonseca MD Jul 18, 2017 22:35
--- NOTE | 2017-07-18 09:29 | HHI.IDPN ---
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 ANC 100 started to have chills and fevers 3-4 days ago fever 104 on presentation Non localizing, denies any abdominal pain, urinary smx Has her baseline dry cough no expectoration PORT was put in 1 yr ago She is on broad spectrum abx (vanco, azactam, flagyl) and her blood clx are growing 4/4 GNR she reports cefepime allergy (hives) that happened recently - 2 mos ago Notes reviewed Febrile all night D/W RN Stools better No abdominal pain, N/V Haa painful lump in L submental area CT neck noted Sores in mouth same, no worse No pain on swallowing No resp complaints Voiding ok No new (+) BC Only (+) BC on admission with klebsiella Remains pancytopenic, zero neutrophils Antibiotics Current Medications AZACTAM Diflucan Vanco IV Dificid Zovirax Medications (Trade) Dose Ordered Sig/Zeynep Route Start Time Stop Time Status Last Admin (Coreg) 3.125 mg DAILY PO 06/29/17 09:00 Future hold 07/18/17 07:55 (Deltasone) 5 mg DAILY PO 06/29/17 09:00 07/18/17 07:55 (Cozaar) 100 mg DAILY PO 06/29/17 09:00 07/18/17 07:55 (Mag-Al Plus Susp Liq) 15 ml Q6H PRN PO 06/28/17 20:45 07/05/17 13:52 Sodium Chloride 250 ml @ 0 mls/hr UNSCH IV 06/29/17 15:00 (Magic Mouthwash Adult Liq) 5 ml QID SWISH-SWAL 06/29/17 13:00 07/17/17 08:29 (Zofran Inj) 4 mg Q6HR PRN IV PUSH 06/29/17 10:15 07/17/17 11:00 (Benadryl) 25 mg Q6H PRN PO 06/30/17 10:45 07/17/17 11:00 (Tylenol) 650 mg Q4H PRN PO 07/01/17 10:45 07/18/17 03:40 (Melatonin) 5 mg HS PRN PO 07/02/17 21:00 07/11/17 21:05 (Refresh Tears 0.5% Opth Soln) 1 drop Q6H PRN EACH EYE 07/04/17 11:30 07/04/17 19:44 Patient Own Medication PT OWN MED: RYD... BID PO 07/05/17 11:30 07/18/17 21:01 07/17/17 08:28 (Compazine Inj) 10 mg Q8H PRN IV PUSH 07/05/17 10:15 07/17/17 14:34 (Xanax) 0.25 mg Q8HR PRN PO 07/06/17 10:00 07/17/17 22:32 (Duoneb Neb) 1 ampule Q6HR NEB PRN NEB 07/06/17 18:00 07/07/17 20:44 (Robitussin Ac 200-20 Mg/10 ml Liq) 10 ml Q4H PRN PO 07/07/17 13:30 07/11/17 21:05 (Norvasc) 5 mg DAILY PO 07/08/17 19:00 07/18/17 07:55 Aztreonam 2000 mg/ Sodium Chloride 100 ml @ 200 mls/hr Q6H IV 07/11/17 00:00 07/18/17 07:12 (CeleXA) 20 mg DAILY PO 07/12/17 09:00 07/17/17 08:28 (Zovirax) 400 mg Q8H PO 07/12/17 02:00 07/18/17 03:32 Pharmacy Profile Note 0 ml @ 0 mls/hr UNSCH OTHER 07/12/17 17:45 (Diflucan) 200 mg Q24H PO 07/13/17 11:00 07/17/17 09:14 Metoclopramide HCl 10 mg/Sodium Chloride 52 ml @ 104 mls/hr DAILY@2000 IV 07/14/17 20:00 07/17/17 20:33 (Protonix) 40 mg DAILY PO 07/14/17 09:00 07/18/17 07:54 Sodium Chloride 1,000 ml @ 84 mls/hr [id number] IV 07/14/17 09:45 07/18/17 07:56 (Mag-Ox) 400 mg BID PO 07/16/17 09:00 07/18/17 07:55 (Dificid) 200 mg BID PO 07/16/17 21:00 07/26/17 20:59 07/18/17 07:54 Vancomycin HCl 1750 mg/Sodium Chloride 517.5 ml @ 250 mls/hr Q12H IV 07/17/17 20:00 07/18/17 07:54 Miscellaneous Information SPECIFIC LAB TO BE DRAWN:VANCO TROUGH DATE TO... ONCE ONCE .XX 07/19/17 07:45 07/19/17 07:46 Sodium Chloride 250 ml @ 15 mls/hr ONCE ONCE IV 07/18/17 07:30 07/19/17 00:09 (Tylenol) 650 mg Q4H PRN PO 07/18/17 07:30 (Benadryl) 25 mg Q4H PRN PO 07/18/17 07:30 Lines Line sites with no e.o infection Port site ok. Past Medical History Past h/o Kleb pneumo bacteremia in May 2017. Allergies: Coded Allergies: cefepime (Verified Allergy, Severe, HIVES, 06/25/17) latex (Unverified Allergy, Severe, Rash, 06/25/17) Sulfa (Sulfonamide Antibiotics) (Unverified Adverse Reaction, Severe, Vomiting, cramps, 06/25/17) Objective . Vital Signs Date Time Temp Pulse Resp B/P (MAP) Pulse Ox O2 Delivery O2 Flow Rate FiO2 07/18/17 08:36 89 07/18/17 08:05 84 Nasal Cannula 2.00 07/18/17 07:59 98.8 94 16 139/78 (98) 97 07/18/17 06:02 101.1 07/18/17 04:00 111 07/18/17 03:30 100.1 07/18/17 00:12 101.1 111 16 118/61 (80) 91 07/18/17 00:00 102 07/17/17 22:27 100.8 07/17/17 20:26 98.7 97 17 125/82 (96) 94 07/17/17 20:00 88 07/17/17 17:38 87 07/17/17 16:10 99.8 97 18 112/63 (79) 92 07/17/17 13:53 106 07/17/17 12:12 100.7 101 20 118/77 (91) 92 07/17/17 09:49 98.5 105 18 139/87 (104) 94 . Laboratory Tests Test 07/17/17 08:45 07/18/17 05:50 White Blood Count 0.0 TH/MM3 0.0 TH/MM3 Red Blood Count 2.78 MIL/MM3 2.24 MIL/MM3 Hemoglobin 8.0 GM/DL 6.6 GM/DL Hematocrit 22.4 % 18.2 % Mean Corpuscular Volume 80.8 FL 81.0 FL Mean Corpuscular Hemoglobin 28.9 PG 29.6 PG Mean Corpuscular Hemoglobin Concent 35.8 % 36.6 % Red Cell Distribution Width 12.8 % 12.8 % Platelet Count 28 TH/MM3 15 TH/MM3 Mean Platelet Volume 6.3 FL 6.4 FL CBC Comment AUTO DIFF AUTO DIFF Differential Total Cells Counted 2 1 Lymphocytes % 100 % 100 % Neutrophils # (Manual) 0.0 TH/MM3 0.0 TH/MM3 Differential Comment FINAL DIFF MANUAL FINAL DIFF MANUAL Platelet Estimate LOW RARE Platelet Morphology Comment NORMAL NORMAL Red Cell Morphology Comment Laboratory Tests Test 07/17/17 05:40 07/18/17 00:50 Blood Urea Nitrogen 7 MG/DL 5 MG/DL Creatinine 0.34 MG/DL 0.39 MG/DL Random Glucose 102 MG/DL 107 MG/DL Calcium Level 8.2 MG/DL 8.5 MG/DL Magnesium Level 1.9 MG/DL 2.0 MG/DL Sodium Level 140 MEQ/L 138 MEQ/L Potassium Level 3.0 MEQ/L 3.4 MEQ/L Chloride Level 102 MEQ/L 102 MEQ/L Carbon Dioxide Level 27.9 MEQ/L 28.9 MEQ/L Anion Gap 10 MEQ/L 7 MEQ/L Estimat Glomerular Filtration Rate 197 ML/MIN 168 ML/MIN Microbiology Date/Time Source Procedure Growth Status 07/17/17 13:26 Blood Line Aerobic Blood Culture Pending Received 07/17/17 13:26 Blood Line Anaerobic Blood Culture Pending Received 07/17/17 13:20 Blood Line Aerobic Blood Culture Pending Received 07/17/17 13:20 Blood Line Anaerobic Blood Culture Pending Received 07/15/17 12:30 Blood Peripheral Aerobic Blood Culture - Preliminary NO GROWTH IN 2 DAYS Resulted 07/15/17 12:30 Blood Peripheral Anaerobic Blood Culture - Preliminary NO GROWTH IN 2 DAYS Resulted 07/15/17 12:30 Blood Line Aerobic Blood Culture - Preliminary NO GROWTH IN 2 DAYS Resulted 07/15/17 12:30 Blood Line Anaerobic Blood Culture - Preliminary NO GROWTH IN 2 DAYS Resulted Imaging Last Impressions Upper Extremity Ultrasound 07/11/17 0000 Signed Impressions: Service Date/Time: Tuesday, July 11, 2017 16:40 - CONCLUSION: Normal examination. Mt Vance MD Chest X-Ray 07/11/17 0000 Signed Impressions: Service Date/Time: Tuesday, July 11, 2017 16:26 - CONCLUSION: 1. Improvement in left basilar airspace disease since July 06. Cardiomegaly. No significant effusion. Jacinto Tello MD Head CT 07/08/17 0000 Signed Impressions: Service Date/Time: July 19:55 - CONCLUSION: No acute disease. Malcolm Coker MD Physical Exam CONSTITUTIONAL/GENERAL: Awake and alert, NAD, ambulates in room PORT in place R chest w/o e/o infection SKIN: No jaundice, rashes, or lesions. Alopecia EYES: Pupils equal and round and reactive. Extraocular motions intact. No scleral icterus. No injection or drainage. Fundi not examined. HEENT: mucositis, tongue ulcer (very shallow). Has+ 3 cm tender non fluctant L submandubular mass - about the same in size and tenderness CARDIOVASCULAR: Regular rate and rhythm without murmurs, gallops, or rubs. RESPIRATORY/CHEST: Clear to auscultation. Breath sounds equal bilaterally. No wheezes, rales, or rhonchi. GASTROINTESTINAL: Abdomen soft, non-tender, nondistended. GENITOURINARY: Without palpable bladder distension. MUSCULOSKELETAL: Extremities without clubbing, cyanosis, or edema. No calf tenderness NEUROLOGICAL: Non focal PSYCHIATRIC: Cooperative Assessment & Plan Remarks Sepsis in an Immune compromised host. New fevers ? new infection. Kleb pneumo bacteremia ? source (PORT?) This appears recurrent similar Kleb pneumo bacteremia in May 2017. 2 D echo negative from 06/30 US negative for thrombosys Sialoadenitis/Parotitis. Cold sore ? HSV Possible line infection Severely immunocompromised, neutropenic. AML sp chemo Neutropenia, neutropenic fever - resolved - persistent absolute neutropenia; severe and persistent C.diff - more diarrhea - unable to tolerated oral vanco; it was steopped by hem/onc 2/2 excessive vomiting R sided parotitis, Staph including MRSA is primary consideration Recs: Change Azactam to Merem for Kleb pneumo +BC - patient has taken amoxicillin win the past past without any problem Add Micafungin Continue Dificid Continue IV Vanco ALso on Zovirax Follow new C/S Monitor temps Monitor progress Explained plan to the patient D/W Vijaya Dasilva MD Jul 18, 2017 09:29
[2017-07-18] MEDS ORDERED: ASP: Other exception documentation: ( ) PRN (09:30)
[2017-07-18] MEDS ORDERED: MISCELLANEOUS PHARMACY INFORMATION XX PRN (09:30)
[2017-07-18] MEDS: diphenhydrAMINE HCL 25 MG CAP PO PRN (10:11)
[2017-07-18] MEDS ORDERED: MEROPENEM INJ 2,000 MG in SODIUM CHLORIDE 0.9% INJ 100 ML IV SCH (10:30)
[2017-07-18] MEDS ORDERED: MICAFUNGIN INJ 150 MG in SODIUM CHLORIDE 0.9% INJ 100 ML IV SCH (11:00)
[2017-07-18] MEDS: MEROPENEM INJ 2,000 MG in SODIUM CHLORIDE 0.9% INJ 100 ML IV SCH ×2 (11:26→18:00)
[2017-07-18] MEDS: MICAFUNGIN INJ 150 MG in SODIUM CHLORIDE 0.9% INJ 100 ML IV SCH (12:01)
[2017-07-18] MEDS ORDERED: CARVEDILOL 3.125 MG TAB PO ONE (17:15)
[2017-07-18] MEDS: ONDANSETRON HCL 4 MG/2 ML VIAL IV PUSH PRN (17:59)
[2017-07-18] MEDS: ENALAPRILAT 1.25 MG/ML VIAL IV PUSH PRN (18:01)
[2017-07-18] MEDS: METOCLOPRAMIDE INJ 10 MG in SODIUM CHLORIDE 0.9% INJ 50 ML IV SCH (20:59)
[2017-07-18] MEDS: ALPRAZolam 0.5 MG TAB PO PRN (20:59)
[2017-07-18] MEDS: PROCHLORPERAZINE INJ 10 MG/2 ML VIAL IV PUSH PRN (22:34)
[2017-07-19] VITALS (28 sets, daily range): BP systolic 120–152; BP diastolic 70–98; PULSE 90–113; RESP 17–22; TEMP 98.3–101.7; O2SAT 91–97
[2017-07-19] MEDS: MEROPENEM INJ 2,000 MG in SODIUM CHLORIDE 0.9% INJ 100 ML IV SCH ×3 (02:15→19:16)
[2017-07-19] MEDS: ACYCLOVIR 200 MG CAP PO SCH ×3 (02:15→17:55)
[2017-07-19] MEDS: ACETAMINOPHEN 325 MG TAB PO PRN ×3 (04:43→20:23)
[2017-07-19 05:47] LABS: BACTERIA, URINE RARE /hpf; BILIRUBIN, URINE NEG (NEG); BLOOD, URINE NEG (NEG); GLUCOSE,URINE NEG (NEG); KETONE, URINE 40 mg/dL (NEG); MUCUS URINE FEW /lpf (OCC); NITRITE,URINE NEG (NEG); RENAL EPITHELIAL CELLS <1 /hpf; SQUAMOUS EPITHELIAL CELL URINE <1 /hpf (0-5); URINE COLOR YELLOW (YELLW/STRAW); URINE LEUKOCYTE ESTERASE NEG (NEG)
[2017-07-19 05:59] LABS: HEMATOCRIT 25.5 % (35.0-46.0); HEMOGLOBIN 9.4 GM/DL (11.6-15.3); MEAN CELL VOLUME 81.5 FL (80.0-100.0); MEAN CORPUSCULAR HEMOGLOBIN 30.2 PG (27.0-34.0); MEAN PLATELET VOLUME 6.8 FL (7.0-11.0); RED BLOOD COUNT 3.13 MIL/MM3 (4.00-5.30); RED CELL DISTRIBUTION WIDTH 12.8 % (11.6-17.2)
[2017-07-19 06:07] LABS: MEAN CORPUSCULAR HGB CONC 37.1 % (32.0-36.0)
[2017-07-19 06:14] LABS: PLATELET COUNT 9 TH/MM3 (150-450)
[2017-07-19] MEDS ORDERED: PHARMACY ORDERED LAB ONE (07:45)
[2017-07-19 07:58] LABS: BICARBONATE 28.7 MEQ/L (21.0-32.0); CALCIUM 8.7 MG/DL (8.5-10.1); CREATININE 0.37 MG/DL (0.50-1.00)
[2017-07-19] MEDS: PANTOPRAZOLE SOD 40 MG DELAYED RELEASE TAB PO SCH (09:30)
[2017-07-19] MEDS: diphenhydrAMINE HCL 25 MG CAP PO PRN (09:32)
[2017-07-19] MEDS: FIDAXOMICIN 200 MG TAB PO SCH ×2 (09:32→20:22)
[2017-07-19] MEDS: MAGNESIUM OXIDE 400 MG TAB PO SCH ×2 (09:33→20:22)
[2017-07-19] MEDS: CARVEDILOL 3.125 MG TAB PO SCH (09:33)
[2017-07-19] MEDS: predniSONE 5 MG TAB PO SCH (09:33)
[2017-07-19] MEDS: LOSARTAN 50 MG TAB PO SCH (09:33)
[2017-07-19] MEDS: CITALOPRAM HYDROBROMIDE 20 MG TAB PO SCH (09:33)
[2017-07-19] MEDS: amLODIPine BESYLATE 5 MG TAB PO SCH (09:34)
[2017-07-19] MEDS: NYSTAT/DIPHENHY/LIDO MOUTHWASH (Adult) 120ML SWISH-SWAL SCH ×4 (09:35→20:23)
[2017-07-19] MEDS: SODIUM CHLOR 0.9% 1000 ML INJ 1,000 ML IV SCH (09:36)
[2017-07-19] MEDS: VANCOMYCIN INJ 1,750 MG in SODIUM CHLORID 0.9% 500 ML INJ 500 ML IV SCH ×2 (09:39→21:24)
[2017-07-19 10:41] LABS: LYMPHOCYTES 100 % (9-44)
[2017-07-19 10:53] LABS: INTERNATIONAL NORMALIZED RATIO 1.1 RATIO
--- NOTE | 2017-07-19 12:04 | PD.ONC.PN ---
Subjective Subjective Remarks Tmax 101.1 overnight. Patient anxious about bone marrow biopsy today. she is really hoping she is in remission. No complaints. Objective Data Date Time Temp Pulse Resp B/P (MAP) Pulse Ox O2 Delivery O2 Flow Rate FiO2 07/19/17 11:31 98.6 95 120/70 94 07/19/17 11:26 99.1 103 22 133/76 (95) 94 07/19/17 11:15 99.1 102 18 133/76 94 07/19/17 09:06 98.3 109 22 144/98 (113) 91 07/19/17 08:25 Room Air 07/19/17 08:00 97 07/19/17 05:52 98.9 07/19/17 04:40 101.1 112 17 143/93 (110) 95 07/19/17 04:00 101 07/19/17 01:28 98.8 07/19/17 00:14 101.7 07/19/17 00:00 104 07/18/17 23:40 128/78 (95) 07/18/17 23:32 122 17 175/89 (117) 93 07/18/17 23:28 103.9 07/18/17 22:44 110 07/18/17 21:08 92 07/18/17 21:08 92 Room Air 07/18/17 20:04 97.5 94 18 137/83 (101) 92 07/18/17 16:57 101.3 105 20 170/90 94 07/18/17 16:57 101.3 105 20 170/90 (116) 94 07/18/17 14:23 98.1 84 18 146/91 91 07/18/17 14:11 92 07/18/17 13:53 98.1 89 18 146/91 97 07/18/17 12:09 100 07/18/17 12:00 81 07/19/17 07/19/17 07/19/17 07:00 15:00 23:00 Intake Total 1216 ml Output Total 700 ml Balance 516 ml Result Diagram: 07/19/17 0430 07/19/17 0500 Laboratory Results Laboratory Tests Test 07/19/17 04:30 07/19/17 05:00 07/19/17 10:20 White Blood Count 0.0 TH/MM3 Red Blood Count 3.13 MIL/MM3 Hemoglobin 9.4 GM/DL Hematocrit 25.5 % Mean Corpuscular Volume 81.5 FL Mean Corpuscular Hemoglobin 30.2 PG Mean Corpuscular Hemoglobin Concent 37.1 % Red Cell Distribution Width 12.8 % Platelet Count 9 TH/MM3 Mean Platelet Volume 6.8 FL CBC Comment AUTO DIFF Differential Total Cells Counted 1 Lymphocytes % 100 % Neutrophils # (Manual) 0.0 TH/MM3 Differential Comment FINAL DIFF MANUAL Platelet Estimate RARE Platelet Morphology Comment NORMAL Urine Color YELLOW Urine Turbidity CLEAR Urine pH 7.0 Urine Specific [place] 1.014 Urine Protein 30 mg/dL Urine Glucose (UA) NEG mg/dL Urine Ketones 40 mg/dL Urine Occult Blood NEG Urine Nitrite NEG Urine Bilirubin NEG Urine Urobilinogen LESS THAN 2.0 MG/DL Urine Leukocyte Esterase NEG Urine RBC 1 /hpf Urine WBC 1 /hpf Urine Squamous Epithelial Cells <1 /hpf Urine Renal Epithelial Cells <1 /hpf Urine Bacteria RARE /hpf Urine Mucus FEW /lpf Microscopic Urinalysis Comment CULT NOT INDICATED Blood Urea Nitrogen 6 MG/DL Creatinine 0.37 MG/DL Random Glucose 103 MG/DL Calcium Level 8.7 MG/DL Sodium Level 139 MEQ/L Potassium Level 3.2 MEQ/L Chloride Level 101 MEQ/L Carbon Dioxide Level 28.7 MEQ/L Anion Gap 9 MEQ/L Estimat Glomerular Filtration Rate 179 ML/MIN Magnesium Level 2.0 MG/DL Vancomycin Level Trough 20.6 MCG/ML Prothrombin Time 11.0 SEC Prothromb Time International Ratio 1.1 RATIO Culture Results Microbiology Date/Time Source Procedure Growth Status 07/19/17 00:00 Blood Peripheral Aerobic Blood Culture Pending Received 07/19/17 00:00 Blood Peripheral Anaerobic Blood Culture Pending Received 07/19/17 00:00 Blood Other Aerobic Blood Culture Pending Received 07/19/17 00:00 Blood Other Anaerobic Blood Culture Pending Received 07/17/17 13:26 Blood Line Aerobic Blood Culture - Preliminary NO GROWTH IN 2 DAYS Resulted 07/17/17 13:26 Blood Line Anaerobic Blood Culture - Preliminary NO GROWTH IN 2 DAYS Resulted 07/17/17 13:20 Blood Line Aerobic Blood Culture - Preliminary NO GROWTH IN 2 DAYS Resulted 07/17/17 13:20 Blood Line Anaerobic Blood Culture - Preliminary NO GROWTH IN 2 DAYS Resulted Administered Medications Medications (Trade) Dose Ordered Sig/Zeynep Route PRN Reason Start Time Stop Time Status Last Admin Dose Admin Carvedilol (Coreg) 3.125 mg DAILY PO 06/29/17 09:00 Future hold 07/19/17 09:33 Prednisone (Deltasone) 5 mg DAILY PO 06/29/17 09:00 07/19/17 09:33 Losartan Potassium (Cozaar) 100 mg DAILY PO 06/29/17 09:00 07/19/17 09:33 Al Hydrox/Mg Hydrox/Simethicone (Mag-Al Plus Susp Liq) 15 ml Q6H PRN PO INDIGESTION 06/28/17 20:45 07/05/17 13:52 Multi-Ingredient Mouthwash/Gargle (Magic Mouthwash Adult Liq) 5 ml QID SWISH-SWAL 06/29/17 13:00 07/19/17 09:35 Ondansetron HCl (Zofran Inj) 4 mg Q6HR PRN IV PUSH nausea 06/29/17 10:15 07/18/17 17:59 Diphenhydramine HCl (Benadryl) 25 mg Q6H PRN PO itching 06/30/17 10:45 07/19/17 09:32 Acetaminophen (Tylenol) 650 mg Q4H PRN PO fever>100.4, PREMED, orpain1-2 07/01/17 10:45 07/19/17 09:33 Melatonin (Melatonin) 5 mg HS PRN PO insomnia 07/02/17 21:00 07/11/17 21:05 Carboxymethylcellulose Sodium (Refresh Tears 0.5% Opth Soln) 1 drop Q6H PRN EACH EYE dry eyes 07/04/17 11:30 07/04/17 19:44 Prochlorperazine Edisylate (Compazine Inj) 10 mg Q8H PRN IV PUSH nausea 07/05/17 10:15 07/18/17 22:34 Alprazolam (Xanax) 0.25 mg Q8HR PRN PO anxiety 07/06/17 10:00 07/18/17 20:59 Albuterol/ Ipratropium (Duoneb Neb) 1 ampule Q6HR NEB PRN NEB SHORTNESS OF BREATH 07/06/17 18:00 07/07/17 20:44 Guaifenesin/ Codeine Phosphate (Robitussin Ac 200-20 Mg/10 ml Liq) 10 ml Q4H PRN PO cough 07/07/17 13:30 07/11/17 21:05 Amlodipine Besylate (Norvasc) 5 mg DAILY PO 07/08/17 19:00 07/19/17 09:34 Citalopram Hydrobromide (CeleXA) 20 mg DAILY PO 07/12/17 09:00 07/19/17 09:33 Acyclovir (Zovirax) 400 mg Q8H PO 07/12/17 02:00 07/19/17 09:32 Metoclopramide HCl 10 mg/Sodium Chloride 52 ml @ 104 mls/hr DAILY@2000 IV 07/14/17 20:00 07/18/17 20:59 Pantoprazole Sodium (Protonix) 40 mg DAILY PO 07/14/17 09:00 07/19/17 09:30 Magnesium Oxide (Mag-Ox) 400 mg BID PO 07/16/17 09:00 07/19/17 09:33 Fidaxomicin (Dificid) 200 mg BID PO 07/16/17 21:00 07/26/17 20:59 07/19/17 09:32 Vancomycin HCl 1750 mg/Sodium Chloride 517.5 ml @ 250 mls/hr Q12H IV 07/17/17 20:00 07/19/17 09:39 Diphenhydramine HCl (Benadryl) 25 mg Q4H PRN PO SEE LABEL COMMENTS 07/18/17 07:30 07/18/17 10:11 Meropenem 2000 mg/ Sodium Chloride 100 ml @ 200 mls/hr Q8H IV 07/18/17 11:00 07/19/17 02:15 Micafungin Sodium 150 mg/Sodium Chloride 100 ml @ 100 mls/hr Q24H IV 07/18/17 12:00 07/18/17 12:01 Enalaprilat (Vasotec Inj) 1.25 mg Q8H PRN IV PUSH SBP>160, DBP>90 07/18/17 17:15 07/18/17 18:01 Objective Remarks GENERAL: Anxious female, sitting up on side of bed in nad. SKIN: Warm and dry. HEAD: Normocephalic. EYES: No injection or drainage. NECK: Supple, trachea midline. CARDIOVASCULAR: Regular rate and rhythm RESPIRATORY: Breath sounds equal bilaterally. No accessory muscle use. GASTROINTESTINAL: Abdomen soft, non-tender, nondistended. EXTREMITIES: No cyanosis, NEUROLOGICAL: awake and alert. normal speech. moving all extremities. Assessment/Plan Problem List: (1) AML (acute myeloid leukemia) in relapse ICD Codes: C92.02 - Acute myeloblastic leukemia, in relapse Plan: 07/19/17: D22. bone marrow biopsy today. transfuse 1 unit platelets. start NS+ 40K @84cc/hr continuous infusion. check magnesium. 07/18/17 D21: Blood cultures pending from fever spike yesterday. Transfuse 2 units packed red blood cells for hemoglobin of 6.6. Plan to transfuse a total of 80 mEq potassium for level 3.4 today. Repeat bone marrow biopsy in a.m. 07/17/17: D20:Await CBC today. May have to have vascular place peripheral IV if unable to get blood return from [id number]. Replace Potassium today. Await CT neck. Pt agrees to imaging. 07/16/17: D19. give [address] neck for enlarging subinguinal LN ? continue antibiotics. increase Magnesium to BID. continue IV Potassium. 07/15/17: D18. no transfusion. obtain blood cultures for fever spike last night. give potassium as ordered. monitor closely 07/14/17: D17. no transfusion. give IV potassium. notify cardiology of 6 beat run of V-tach overnight 07/13/17: D16. give 1unit pRBC, 1 unit platelets. facial swelling improved. start diflucan for thrush. 07/12/17: D15: no transfusion. monitor right-sided facial swelling. refusing MRI. continue antibiotics and lemon lozenges. 07/11/17: D14 No transfusion. Patient with right-sided facial swelling 07/10/17: D13 Hgb 7.9. Transfuse 1 unit irradiated PRBC's. K3.1. Transfuse total of 80 meq's to keep K greater than 4.0 per cardiology recs. Give 400mg magnesium oxide 4 mag level of 1.9 07/09/17: D12. hgb 8, platelet count of 7, will transfuse blood and platelets. 07/08/17: D11. continue antibiotics. monitor for fever 07/07/27: D10. give 1 unit pRBC and 1 unit platelets. continue antibiotics. 07/06/17: D9. no transfusion, spiked fever. start antibiotics, obtain cultures, u /a and chest x-ray. 07/05/17: D8. Transfuse 1 unit irradiated platelets today. Start Rydapt 50mg po BID x 14 days. 07/04/17: D7. no transfusion. monitor for fever 07/03/17: D6. 2 units pRBC. last day of chemotherapy 07/02/17: D5. 1 unit platelets. continue chemotherapy. 07/01/17: D4. 1 unit platelets. continue chemotherapy. 06/30/17: D3. Tolerating chemo. No transfusion today. 06/29/17: D2, give 2 units pRBC this AM. start chemotherapy this afternoon. 06/28/17: admission, D1 (2) Neutropenic fever ICD Codes: D70.9 - Neutropenia, unspecified; R50.81 - Fever presenting with conditions classified elsewhere Status: Acute Plan: --BC 07/17: no growth. --BC, 07/06 gram negative rods, Klebsiella Pneumoniae --CXR shows mild patchy peripheral lower lung zone. --U/A neg (3) C. difficile diarrhea ICD Codes: A04.72 - Enterocolitis due to Clostridium difficile, not specified as recurrent Plan: --on PO Dificid (4) Thrush ICD Codes: B37.0 - Candidal stomatitis Plan: --magic mouthwash. (5) Ventricular tachycardia (paroxysmal) ICD Codes: I47.2 - Ventricular tachycardia Plan: --seen by Dr. Barker, advises: keep her potassium levels above 4. Try to keep her magnesium levels near 2 or above. (6) Neck mass ICD Codes: R22.1 - Localized swelling, mass and lump, neck Plan: -- CT of the neck shows findings characteristic of cellulitis with early reactive changes in the left-sided cervical lymph nodes. Assessment 57y/o female admitted for salvage chemotherapy with FLAG-AKASH for refractory acute myeloid leukemia. h/o Rheumatoid arthritis. Anxiety disorder. COPD. Depression. Hypercholesterolemia. Hypertension. Irregular heartbeat Attending Statement The exam, history, and the medical decision-making described in the above note were completed with the assistance of the mid-level provider. I reviewed and agree with the findings presented. I attest that I had a [id number] encounter with the patient on the same day, and personally performed and documented my assessment and findings in the medical record. No New c/o Diarrhea better Plat Tx Fever last night. Bc are neg day 21 BM bx today. Julianna Mcdaniel Jul 19, 2017 12:04 April Fonseca MD Jul 19, 2017 23:13
[2017-07-19] MEDS: MICAFUNGIN INJ 150 MG in SODIUM CHLORIDE 0.9% INJ 100 ML IV SCH (14:04)
[2017-07-19] MEDS ORDERED: fentaNYL CITRATE 250 MCG/5 ML AMP IV ONE (14:30)
[2017-07-19] MEDS ORDERED: MIDAZOLAM HCL 2 MG/2 ML VIAL IV ONE (14:30)
--- NOTE | 2017-07-19 14:43 | HHI.IDPN ---
Subjective Subjective Remarks doing OK diarrhea better tolerates dificid ok co tender mass under L madibular afebrile Antibiotics micafungin meropenem acyclovir vanco dificid Lines Line sites with no e.o infection Port site ok. Past Medical History Past h/o Kleb pneumo bacteremia in May 2017. Allergies: Coded Allergies: cefepime (Verified Allergy, Severe, HIVES, 06/25/17) latex (Unverified Allergy, Severe, Rash, 06/25/17) Sulfa (Sulfonamide Antibiotics) (Unverified Adverse Reaction, Severe, Vomiting, cramps, 06/25/17) Objective . Vital Signs Date Time Temp Pulse Resp B/P (MAP) Pulse Ox O2 Delivery O2 Flow Rate FiO2 07/19/17 11:31 98.6 95 120/70 94 07/19/17 11:26 99.1 103 22 133/76 (95) 94 07/19/17 11:15 99.1 102 18 133/76 94 07/19/17 09:06 98.3 109 22 144/98 (113) 91 07/19/17 08:25 Room Air 07/19/17 08:00 97 07/19/17 05:52 98.9 07/19/17 04:40 101.1 112 17 143/93 (110) 95 07/19/17 04:00 101 07/19/17 01:28 98.8 07/19/17 00:14 101.7 07/19/17 00:00 104 07/18/17 23:40 128/78 (95) 07/18/17 23:32 122 17 175/89 (117) 93 07/18/17 23:28 103.9 07/18/17 22:44 110 07/18/17 21:08 92 07/18/17 21:08 92 Room Air 07/18/17 20:04 97.5 94 18 137/83 (101) 92 07/18/17 16:57 101.3 105 20 170/90 94 07/18/17 16:57 101.3 105 20 170/90 (116) 94 07/18/17 14:23 98.1 84 18 146/91 91 07/19/17 07/19/17 07/20/17 15:00 23:00 07:00 Intake Total 925 ml Balance 925 ml IV Total 700 ml Platelets 225 ml . Laboratory Tests Test 07/18/17 05:50 07/19/17 04:30 White Blood Count 0.0 TH/MM3 0.0 TH/MM3 Red Blood Count 2.24 MIL/MM3 3.13 MIL/MM3 Hemoglobin 6.6 GM/DL 9.4 GM/DL Hematocrit 18.2 % 25.5 % Mean Corpuscular Volume 81.0 FL 81.5 FL Mean Corpuscular Hemoglobin 29.6 PG 30.2 PG Mean Corpuscular Hemoglobin Concent 36.6 % 37.1 % Red Cell Distribution Width 12.8 % 12.8 % Platelet Count 15 TH/MM3 9 TH/MM3 Mean Platelet Volume 6.4 FL 6.8 FL CBC Comment AUTO DIFF AUTO DIFF Differential Total Cells Counted 1 1 Lymphocytes % 100 % 100 % Neutrophils # (Manual) 0.0 TH/MM3 0.0 TH/MM3 Differential Comment FINAL DIFF MANUAL FINAL DIFF MANUAL Platelet Estimate RARE RARE Platelet Morphology Comment NORMAL NORMAL Red Cell Morphology Comment Laboratory Tests Test 07/18/17 00:50 07/19/17 05:00 Blood Urea Nitrogen 5 MG/DL 6 MG/DL Creatinine 0.39 MG/DL 0.37 MG/DL Random Glucose 107 MG/DL 103 MG/DL Calcium Level 8.5 MG/DL 8.7 MG/DL Magnesium Level 2.0 MG/DL 2.0 MG/DL Sodium Level 138 MEQ/L 139 MEQ/L Potassium Level 3.4 MEQ/L 3.2 MEQ/L Chloride Level 102 MEQ/L 101 MEQ/L Carbon Dioxide Level 28.9 MEQ/L 28.7 MEQ/L Anion Gap 7 MEQ/L 9 MEQ/L Estimat Glomerular Filtration Rate 168 ML/MIN 179 ML/MIN Microbiology Date/Time Source Procedure Growth Status 07/19/17 00:00 Blood Peripheral Aerobic Blood Culture Pending Received 07/19/17 00:00 Blood Peripheral Anaerobic Blood Culture Pending Received 07/19/17 00:00 Blood Other Aerobic Blood Culture Pending Received 07/19/17 00:00 Blood Other Anaerobic Blood Culture Pending Received 07/17/17 13:26 Blood Line Aerobic Blood Culture - Preliminary NO GROWTH IN 2 DAYS Resulted 07/17/17 13:26 Blood Line Anaerobic Blood Culture - Preliminary NO GROWTH IN 2 DAYS Resulted 07/17/17 13:20 Blood Line Aerobic Blood Culture - Preliminary NO GROWTH IN 2 DAYS Resulted 07/17/17 13:20 Blood Line Anaerobic Blood Culture - Preliminary NO GROWTH IN 2 DAYS Resulted Imaging Last Impressions Chest X-Ray 07/17/17 0000 Signed Impressions: Service Date/Time: Monday, July 17, 2017 13:49 - CONCLUSION: Mild patchy peripheral lower lung zone opacity unchanged. Mild chronic cardiac silhouette enlargement. Logan Walton MD Neck CT 07/16/17 0000 Signed Impressions: Service Date/Time: Monday, July 17, 2017 16:22 - CONCLUSION: Stranding of fat in the submandibular anterior soft tissues extending into the deeper soft tissues anterior to the carotid arteries, worse on the left side. There is also some mild inflammatory changes around subcentimeter lymph nodes along the left carotid lymph node chain. Findings are most characteristic of a cellulitis with some early reactive changes in the left-sided cervical lymph nodes. Jacinto Tello MD Upper Extremity Ultrasound 07/11/17 0000 Signed Impressions: Service Date/Time: Tuesday, July 11, 2017 16:40 - CONCLUSION: Normal examination. Mt Vance MD Head CT 07/08/17 0000 Signed Impressions: Service Date/Time: July 19:55 - CONCLUSION: No acute disease. Malcolm Coker MD Physical Exam CONSTITUTIONAL/GENERAL: Awake and alert, NAD, ambulates in room PORT in place R chest w/o e/o infection SKIN: No jaundice, rashes, or lesions. Alopecia EYES: Pupils equal and round and reactive. Extraocular motions intact. No scleral icterus. No injection or drainage. Fundi not examined. HEENT: mucositis, tongue ulcer (very shallow). Has+ 3 cm tender non fluctant L submandubular mass - about the same in size and tenderness CARDIOVASCULAR: Regular rate and rhythm without murmurs, gallops, or rubs. R parotid swelling resolved RESPIRATORY/CHEST: Clear to auscultation. Breath sounds equal bilaterally. No wheezes, rales, or rhonchi. GASTROINTESTINAL: Abdomen soft, non-tender, nondistended. GENITOURINARY: Without palpable bladder distension. MUSCULOSKELETAL: Extremities without clubbing, cyanosis, or edema. No calf tenderness NEUROLOGICAL: Non focal PSYCHIATRIC: Cooperative Assessment & Plan Remarks Kleb pneumo bacteremia ? source (PORT?) Severely immunocompromised AML sp chemo Neutropennia, neuptropenic fever - - persistently ANC of 0 C.diff : pt was not tolerating vancomycin and OK with dificid cont merropnem cont micafungin cont dificid cont iv Brittney Florentino MD Jul 19, 2017 14:43
[2017-07-19] MEDS: POTASSIUM CHLORIDE 10 MEQ CAP PO SCH ×2 (17:55→20:22)
[2017-07-19] MEDS: METOCLOPRAMIDE INJ 10 MG in SODIUM CHLORIDE 0.9% INJ 50 ML IV SCH (20:24)
[2017-07-19] MEDS: POTASSIUM CHLORIDE INJ 40 MEQ in SODIUM CHLOR 0.9% 1000 ML INJ 1,000 ML IV SCH (21:19)
[2017-07-20] VITALS (32 sets, daily range): BP systolic 124–166; BP diastolic 76–98; PULSE 86–120; RESP 16–22; TEMP 98.3–102.3; O2SAT 93–98
[2017-07-20] MEDS: ACETAMINOPHEN 325 MG TAB PO PRN ×3 (02:31→23:36)
[2017-07-20] MEDS: ACYCLOVIR 200 MG CAP PO SCH ×3 (02:32→18:35)
[2017-07-20] MEDS: MEROPENEM INJ 2,000 MG in SODIUM CHLORIDE 0.9% INJ 100 ML IV SCH ×3 (02:33→18:35)
[2017-07-20] MEDS: ONDANSETRON HCL 4 MG/2 ML VIAL IV PUSH PRN ×3 (02:39→21:28)
[2017-07-20 04:03] LABS: HEMATOCRIT 24.5 % (35.0-46.0); MEAN CELL VOLUME 81.9 FL (80.0-100.0); MEAN PLATELET VOLUME 7.5 FL (7.0-11.0); PLATELET COUNT 31 TH/MM3 (150-450); RED BLOOD COUNT 2.99 MIL/MM3 (4.00-5.30); RED CELL DISTRIBUTION WIDTH 12.7 % (11.6-17.2)
[2017-07-20 04:13] LABS: MEAN CORPUSCULAR HGB CONC 36.7 % (32.0-36.0)
[2017-07-20 04:29] LABS: CREATININE 0.41 MG/DL (0.50-1.00)
[2017-07-20 07:28] LABS: LYMPHOCYTES 50 % (9-44); POLYS (SEG NEUTROPHILS) 50 % (16-70)
[2017-07-20] MEDS: FIDAXOMICIN 200 MG TAB PO SCH ×2 (07:34→21:24)
[2017-07-20] MEDS: VANCOMYCIN INJ 1,750 MG in SODIUM CHLORID 0.9% 500 ML INJ 500 ML IV SCH ×2 (07:34→20:26)
[2017-07-20] MEDS: CARVEDILOL 3.125 MG TAB PO SCH (07:35)
[2017-07-20] MEDS: CITALOPRAM HYDROBROMIDE 20 MG TAB PO SCH (07:35)
[2017-07-20] MEDS: PANTOPRAZOLE SOD 40 MG DELAYED RELEASE TAB PO SCH (07:35)
[2017-07-20] MEDS: MAGNESIUM OXIDE 400 MG TAB PO SCH ×2 (07:36→21:24)
[2017-07-20] MEDS: amLODIPine BESYLATE 5 MG TAB PO SCH (07:36)
[2017-07-20] MEDS: LOSARTAN 50 MG TAB PO SCH (07:36)
[2017-07-20] MEDS: predniSONE 5 MG TAB PO SCH (07:36)
[2017-07-20] MEDS: NYSTAT/DIPHENHY/LIDO MOUTHWASH (Adult) 120ML SWISH-SWAL SCH ×4 (07:37→21:00)
[2017-07-20] MEDS: POTASSIUM CHLORIDE 10 MEQ CAP PO SCH (07:45)
[2017-07-20] MEDS ORDERED: PHARMACY ORDERED LAB ONE (07:45)
[2017-07-20 08:42] LABS: BICARBONATE 30.5 MEQ/L (21.0-32.0); CALCIUM 8.8 MG/DL (8.5-10.1); CREATININE 0.42 MG/DL (0.50-1.00); MAGNESIUM 2.2 MG/DL (1.5-2.5)
--- NOTE | 2017-07-20 09:39 | RADRPT ---
EXAM DATE/TIME: 07/19/2017 15:58 [facility] COMPARISON: CT NEEDLE BIOPSY BONE MARROW, June 25, 2017, 11:52. INDICATIONS : Acute myeloid leukemia. SEDATION TIME: 30 minutes BIOPSY SITE: Right iliac wing MEDICATION(S): 1.) 3 mg midazolam (Versed) IV 2.) 150 mcg fentanyl (Sublimaze) IV DEVICE(S): 1.) 11 gauge Bone marrow biopsy needle MEDICAL HISTORY : Leukemia. Chronic obstructive pulmonary disease. SURGICAL HISTORY : None. ENCOUNTER: Initial ACUITY: 1 day PAIN SCORE: 0/10 LOCATION: Bilateral pelvis A total of one core specimen(s) were obtained and sent to the laboratory for pathologic evaluation. PROCEDURE: 1. CT guided bone marrow biopsy. 2. Conscious sedation with continuous EKG and oximetry monitoring. 3. EKG and oximetry remained stable throughout the procedure. Prior to the procedure informed consent was obtained. Any appropriate prior imaging studies were rev iewed. Using automated exposure control and adjustment of the mA and/or kV according to patient size , radiation dose was kept as low as reasonably achievable to obtain optimal diagnostic quality images . DICOM format image data is available electronically for review and comparison. The site was prepped in a sterile fashion. Full sterile technique was used, including cap, mask, darren rile gloves and gown and a large sterile sheet. Hand hygiene and 2% chlorhexidine and/or betadine/al cohol prep was utilized per protocol for cutaneous antisepsis. The skin and subcutaneous tissues wer e infiltrated with local anesthetic solution. With CT guidance the previously identified target was localized. Biopsy was performed using the presc ribed needle as above. Following biopsy marrow aspiration was performed with repeat puncture. Adequa te hemostasis was obtained with compression at the puncture site. Follow-up CT scan reveals no hemorrhage. Conscious sedation was performed with the prescribed dosages and duration as above in the presence of an independent trained radiology nurse to assist in the monitoring of the patient. EKG and oximetry remained stable throughout the procedure. The patient tolerated the procedure well and there were no complications. The patient was sent to Radiology Outpatient Unit in stable condition. CONCLUSION: 1. Uncomplicated CT guided bone marrow aspirate. 2. Uncomplicated CT guided bone marrow biopsy. Malcolm Coker MD on July 20, 2017 at 9:37 Board Certified Radiologist. This report was verified electronically.
--- NOTE | 2017-07-20 09:57 | PD.ONC.PN ---
Subjective Subjective Remarks Tmax 102.3 overnight. Patient resting in bed in nad. eager to know about bone marrow results. No complaints. denies nausea. Objective Data Date Time Temp Pulse Resp B/P (MAP) Pulse Ox O2 Delivery O2 Flow Rate FiO2 07/20/17 07:57 94 Room Air 07/20/17 07:46 99.0 103 20 166/98 (120) 94 07/20/17 07:06 87 07/20/17 06:06 93 07/20/17 05:05 101 07/20/17 04:02 101 07/20/17 03:02 102.3 111 18 141/86 (104) 96 07/20/17 03:01 103 07/20/17 02:00 94 07/20/17 01:00 94 07/20/17 00:06 105 07/20/17 00:03 99.1 98 16 141/87 (105) 93 07/19/17 23:08 96 07/19/17 22:03 95 07/19/17 21:04 99 07/19/17 19:55 107 07/19/17 19:50 Room Air 07/19/17 19:34 100.9 106 18 142/81 (101) 96 07/19/17 19:05 96 07/19/17 18:00 112 07/19/17 17:52 99.2 109 20 147/87 (107) 96 07/19/17 17:17 103 20 123/79 (94) 97 07/19/17 16:50 103 20 128/87 (101) 97 07/19/17 16:35 99.2 113 20 152/97 (115) 94 07/19/17 14:00 90 07/19/17 13:00 94 07/19/17 12:00 96 07/19/17 11:31 98.6 95 120/70 94 07/19/17 11:26 99.1 103 22 133/76 (95) 94 07/19/17 11:15 99.1 102 18 133/76 94 07/19/17 11:00 102 07/19/17 10:00 92 07/20/17 07/20/17 07/20/17 07:00 15:00 23:00 Intake Total 1105 ml Output Total 100 ml Balance 1005 ml Result Diagram: 07/20/17 0300 07/20/17 0745 Laboratory Results Laboratory Tests Test 07/19/17 10:20 07/19/17 16:15 07/20/17 03:00 07/20/17 07:45 Prothrombin Time 11.0 SEC Prothromb Time International Ratio 1.1 RATIO White Blood Count 0.0 TH/MM3 Red Blood Count 2.99 MIL/MM3 Hemoglobin 9.0 GM/DL Hematocrit 24.5 % Mean Corpuscular Volume 81.9 FL Mean Corpuscular Hemoglobin 30.0 PG Mean Corpuscular Hemoglobin Concent 36.7 % Red Cell Distribution Width 12.7 % Platelet Count 31 TH/MM3 Mean Platelet Volume 7.5 FL CBC Comment AUTO DIFF Differential Total Cells Counted 2 Neutrophils % (Manual) 50 % Lymphocytes % 50 % Neutrophils # (Manual) 0.0 TH/MM3 Differential Comment FINAL DIFF MANUAL Plasma Cells % Platelet Estimate LOW Platelet Morphology Comment NORMAL Creatinine 0.41 MG/DL 0.42 MG/DL Estimat Glomerular Filtration Rate 159 ML/MIN 154 ML/MIN Blood Urea Nitrogen 6 MG/DL Random Glucose 104 MG/DL Calcium Level 8.8 MG/DL Magnesium Level 2.2 MG/DL Sodium Level 139 MEQ/L Potassium Level 3.9 MEQ/L Chloride Level 102 MEQ/L Carbon Dioxide Level 30.5 MEQ/L Anion Gap 7 MEQ/L Vancomycin Level Trough 16.6 MCG/ML Culture Results Microbiology Date/Time Source Procedure Growth Status 07/20/17 00:00 Blood Line Aerobic Blood Culture Pending Received 07/20/17 00:00 Blood Line Anaerobic Blood Culture Pending Received 07/19/17 23:58 Blood Peripheral Aerobic Blood Culture Pending Received 07/19/17 23:58 Blood Peripheral Anaerobic Blood Culture Pending Received 07/19/17 00:00 Blood Peripheral Aerobic Blood Culture Pending Received 07/19/17 00:00 Blood Peripheral Anaerobic Blood Culture Pending Received 07/19/17 00:00 Blood Other Aerobic Blood Culture Pending Received 07/19/17 00:00 Blood Other Anaerobic Blood Culture Pending Received 07/17/17 13:26 Blood Line Aerobic Blood Culture - Preliminary NO GROWTH IN 2 DAYS Resulted 07/17/17 13:26 Blood Line Anaerobic Blood Culture - Preliminary NO GROWTH IN 2 DAYS Resulted 07/17/17 13:20 Blood Line Aerobic Blood Culture - Preliminary NO GROWTH IN 2 DAYS Resulted 07/17/17 13:20 Blood Line Anaerobic Blood Culture - Preliminary NO GROWTH IN 2 DAYS Resulted Imaging Studies Last 24 hours Impressions Bone Biopsy CT 07/19/17 1521 Signed Impressions: Service Date/Time: Wednesday, July 19, 2017 15:58 - CONCLUSION: 1. Uncomplicated CT guided bone marrow aspirate. 2. Uncomplicated CT guided bone marrow biopsy. Malcolm Coker MD Administered Medications Medications (Trade) Dose Ordered Sig/Zeynep Route PRN Reason Start Time Stop Time Status Last Admin Dose Admin Carvedilol (Coreg) 3.125 mg DAILY PO 06/29/17 09:00 Future hold 07/20/17 07:35 Prednisone (Deltasone) 5 mg DAILY PO 06/29/17 09:00 07/20/17 07:36 Losartan Potassium (Cozaar) 100 mg DAILY PO 06/29/17 09:00 07/20/17 07:36 Al Hydrox/Mg Hydrox/Simethicone (Mag-Al Plus Susp Liq) 15 ml Q6H PRN PO INDIGESTION 06/28/17 20:45 07/05/17 13:52 Multi-Ingredient Mouthwash/Gargle (Magic Mouthwash Adult Liq) 5 ml QID SWISH-SWAL 06/29/17 13:00 07/20/17 07:37 Ondansetron HCl (Zofran Inj) 4 mg Q6HR PRN IV PUSH nausea 06/29/17 10:15 07/20/17 02:39 Diphenhydramine HCl (Benadryl) 25 mg Q6H PRN PO itching 06/30/17 10:45 07/19/17 09:32 Acetaminophen (Tylenol) 650 mg Q4H PRN PO fever>100.4, PREMED, orpain1-2 07/01/17 10:45 07/20/17 02:31 Melatonin (Melatonin) 5 mg HS PRN PO insomnia 07/02/17 21:00 07/11/17 21:05 Carboxymethylcellulose Sodium (Refresh Tears 0.5% Opth Soln) 1 drop Q6H PRN EACH EYE dry eyes 07/04/17 11:30 07/04/17 19:44 Prochlorperazine Edisylate (Compazine Inj) 10 mg Q8H PRN IV PUSH nausea 07/05/17 10:15 07/18/17 22:34 Alprazolam (Xanax) 0.25 mg Q8HR PRN PO anxiety 07/06/17 10:00 07/18/17 20:59 Albuterol/ Ipratropium (Duoneb Neb) 1 ampule Q6HR NEB PRN NEB SHORTNESS OF BREATH 07/06/17 18:00 07/07/17 20:44 Guaifenesin/ Codeine Phosphate (Robitussin Ac 200-20 Mg/10 ml Liq) 10 ml Q4H PRN PO cough 07/07/17 13:30 07/11/17 21:05 Amlodipine Besylate (Norvasc) 5 mg DAILY PO 07/08/17 19:00 07/20/17 07:36 Citalopram Hydrobromide (CeleXA) 20 mg DAILY PO 07/12/17 09:00 07/20/17 07:35 Acyclovir (Zovirax) 400 mg Q8H PO 07/12/17 02:00 07/20/17 02:32 Metoclopramide HCl 10 mg/Sodium Chloride 52 ml @ 104 mls/hr DAILY@2000 IV 07/14/17 20:00 07/19/17 20:24 Pantoprazole Sodium (Protonix) 40 mg DAILY PO 07/14/17 09:00 07/20/17 07:35 Magnesium Oxide (Mag-Ox) 400 mg BID PO 07/16/17 09:00 07/20/17 07:36 Fidaxomicin (Dificid) 200 mg BID PO 07/16/17 21:00 07/26/17 20:59 07/20/17 07:34 Vancomycin HCl 1750 mg/Sodium Chloride 517.5 ml @ 250 mls/hr Q12H IV 07/17/17 20:00 07/20/17 07:34 Diphenhydramine HCl (Benadryl) 25 mg Q4H PRN PO SEE LABEL COMMENTS 07/18/17 07:30 07/18/17 10:11 Meropenem 2000 mg/ Sodium Chloride 100 ml @ 200 mls/hr Q8H IV 07/18/17 11:00 07/20/17 02:33 Micafungin Sodium 150 mg/Sodium Chloride 100 ml @ 100 mls/hr Q24H IV 07/18/17 12:00 07/19/17 14:04 Enalaprilat (Vasotec Inj) 1.25 mg Q8H PRN IV PUSH SBP>160, DBP>90 07/18/17 17:15 07/18/17 18:01 Potassium Chloride (KCl) 20 meq BID PO 07/19/17 11:00 07/20/17 07:45 Potassium Chloride 40 meq/ Sodium Chloride 1,020 ml @ 84 mls/hr Q12H9M IV 07/19/17 19:20 07/19/17 21:19 Objective Remarks GENERAL: Pleasant female, lying in bed resting. SKIN: Warm and dry. HEAD: Normocephalic. EYES: No injection or drainage. NECK: Supple, trachea midline. CARDIOVASCULAR: Regular rate and rhythm without murmurs. RESPIRATORY: Breath sounds equal bilaterally. No accessory muscle use. GASTROINTESTINAL: Abdomen soft, non-tender, nondistended. EXTREMITIES: No cyanosis, or edema. NEUROLOGICAL: No obvious focal deficit. Awake, alert, and oriented x3. 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 await path from bone marrow biopsy. continue fluids, electrolyte replacement. 07/19/17: D22. bone marrow biopsy today. transfuse 1 unit platelets. start NS+ 40K @84cc/hr continuous infusion. check magnesium. 07/18/17 D21: Blood cultures pending from fever spike yesterday. Transfuse 2 units packed red blood cells for hemoglobin of 6.6. Plan to transfuse a total of 80 mEq potassium for level 3.4 today. Repeat bone marrow biopsy in a.m. 07/17/17: D20:Await CBC today. May have to have vascular place peripheral IV if unable to get blood return from [id number]. Replace Potassium today. Await CT neck. Pt agrees to imaging. 07/16/17: D19. give [address] neck for enlarging subinguinal LN ? continue antibiotics. increase Magnesium to BID. continue IV Potassium. 07/15/17: D18. no transfusion. obtain blood cultures for fever spike last night. give potassium as ordered. monitor closely 07/14/17: D17. no transfusion. give IV potassium. notify cardiology of 6 beat run of V-tach overnight 07/13/17: D16. give 1unit pRBC, 1 unit platelets. facial swelling improved. start diflucan for thrush. 07/12/17: D15: no transfusion. monitor right-sided facial swelling. refusing MRI. continue antibiotics and lemon lozenges. 07/11/17: D14 No transfusion. Patient with right-sided facial swelling 07/10/17: D13 Hgb 7.9. Transfuse 1 unit irradiated PRBC's. K3.1. Transfuse total of 80 meq's to keep K greater than 4.0 per cardiology recs. Give 400mg magnesium oxide 4 mag level of 1.9 07/09/17: D12. hgb 8, platelet count of 7, will transfuse blood and platelets. 07/08/17: D11. continue antibiotics. monitor for fever 07/07/27: D10. give 1 unit pRBC and 1 unit platelets. continue antibiotics. 07/06/17: D9. no transfusion, spiked fever. start antibiotics, obtain cultures, u /a and chest x-ray. 07/05/17: D8. Transfuse 1 unit irradiated platelets today. Start Rydapt 50mg po BID x 14 days. 07/04/17: D7. no transfusion. monitor for fever 07/03/17: D6. 2 units pRBC. last day of chemotherapy 07/02/17: D5. 1 unit platelets. continue chemotherapy. 07/01/17: D4. 1 unit platelets. continue chemotherapy. 06/30/17: D3. Tolerating chemo. No transfusion today. 06/29/17: D2, give 2 units pRBC this AM. start chemotherapy this afternoon. 06/28/17: admission, D1 (2) Neutropenic fever ICD Codes: D70.9 - Neutropenia, unspecified; R50.81 - Fever presenting with conditions classified elsewhere Status: Acute Plan: --BC 07/17: no growth. --BC, 07/06 gram negative rods, Klebsiella Pneumoniae --CXR shows mild patchy peripheral lower lung zone. --U/A neg (3) C. difficile diarrhea ICD Codes: A04.72 - Enterocolitis due to Clostridium difficile, not specified as recurrent Plan: --on PO Dificid (4) Thrush ICD Codes: B37.0 - Candidal stomatitis Plan: --magic mouthwash. (5) Ventricular tachycardia (paroxysmal) ICD Codes: I47.2 - Ventricular tachycardia Plan: --seen by Dr. Barker, advises: keep her potassium levels above 4. Try to keep her magnesium levels near 2 or above. (6) Neck mass ICD Codes: R22.1 - Localized swelling, mass and lump, neck Plan: -- CT of the neck shows findings characteristic of cellulitis with early reactive changes in the left-sided cervical lymph nodes. Assessment 57y/o female admitted for salvage chemotherapy with FLAG-AKASH for refractory acute myeloid leukemia. h/o Rheumatoid arthritis. Anxiety disorder. COPD. Depression. Hypercholesterolemia. Hypertension. Irregular heartbeat Attending Statement The exam, history, and the medical decision-making described in the above note were completed with the assistance of the mid-level provider. I reviewed and agree with the findings presented. I attest that I had a [id number] encounter with the patient on the same day, and personally performed and documented my assessment and findings in the medical record. No c/o Had vomited x 1 last night. BM bx report pending. Monitor blood counts. BC are neg. Same A/B Julianna Mcdaniel Jul 20, 2017 09:57 April Fonseca MD Jul 20, 2017 22:55
[2017-07-20] MEDS ORDERED: POTASSIUM CHLORIDE INJ 40 MEQ in SODIUM CHLOR 0.9% 1000 ML INJ 1,000 ML IV SCH (12:00)
[2017-07-20] MEDS: MICAFUNGIN INJ 150 MG in SODIUM CHLORIDE 0.9% INJ 100 ML IV SCH (13:00)
--- NOTE | 2017-07-20 13:36 | HHI.IDPN ---
Subjective Subjective Remarks having fever up to 102.8 T max pt denies fever, chlls, nightsweats no diarhea no nausea, vomiting Antibiotics micafungin meropenem acyclovir vanco dificid Lines Line sites with no e.o infection Port site ok. Past Medical History Past h/o Kleb pneumo bacteremia in May 2017. Allergies: Coded Allergies: cefepime (Verified Allergy, Severe, HIVES, 06/25/17) latex (Unverified Allergy, Severe, Rash, 06/25/17) Sulfa (Sulfonamide Antibiotics) (Unverified Adverse Reaction, Severe, Vomiting, cramps, 06/25/17) Objective . Vital Signs Date Time Temp Pulse Resp B/P (MAP) Pulse Ox O2 Delivery O2 Flow Rate FiO2 07/20/17 12:11 101.3 104 22 134/87 (103) 97 07/20/17 12:00 101 07/20/17 11:00 108 07/20/17 10:00 120 07/20/17 09:00 110 07/20/17 08:00 95 07/20/17 07:57 94 Room Air 07/20/17 07:46 99.0 103 20 166/98 (120) 94 07/20/17 07:06 87 07/20/17 06:06 93 07/20/17 05:05 101 07/20/17 04:02 101 07/20/17 03:02 102.3 111 18 141/86 (104) 96 07/20/17 03:01 103 07/20/17 02:00 94 07/20/17 01:00 94 07/20/17 00:06 105 07/20/17 00:03 99.1 98 16 141/87 (105) 93 07/19/17 23:08 96 07/19/17 22:03 95 07/19/17 21:04 99 07/19/17 19:55 107 07/19/17 19:50 Room Air 07/19/17 19:34 100.9 106 18 142/81 (101) 96 07/19/17 19:05 96 07/19/17 18:00 112 07/19/17 17:52 99.2 109 20 147/87 (107) 96 07/19/17 17:17 103 20 123/79 (94) 97 07/19/17 16:50 103 20 128/87 (101) 97 07/19/17 16:35 99.2 113 20 152/97 (115) 94 07/19/17 14:00 90 . Laboratory Tests Test 07/19/17 04:30 07/20/17 03:00 White Blood Count 0.0 TH/MM3 0.0 TH/MM3 Red Blood Count 3.13 MIL/MM3 2.99 MIL/MM3 Hemoglobin 9.4 GM/DL 9.0 GM/DL Hematocrit 25.5 % 24.5 % Mean Corpuscular Volume 81.5 FL 81.9 FL Mean Corpuscular Hemoglobin 30.2 PG 30.0 PG Mean Corpuscular Hemoglobin Concent 37.1 % 36.7 % Red Cell Distribution Width 12.8 % 12.7 % Platelet Count 9 TH/MM3 31 TH/MM3 Mean Platelet Volume 6.8 FL 7.5 FL CBC Comment AUTO DIFF AUTO DIFF Differential Total Cells Counted 1 2 Lymphocytes % 100 % 50 % Neutrophils # (Manual) 0.0 TH/MM3 0.0 TH/MM3 Differential Comment FINAL DIFF MANUAL FINAL DIFF MANUAL Platelet Estimate RARE LOW Platelet Morphology Comment NORMAL NORMAL Neutrophils % (Manual) 50 % Plasma Cells % Laboratory Tests Test 07/19/17 05:00 07/20/17 03:00 07/20/17 07:45 Blood Urea Nitrogen 6 MG/DL 6 MG/DL Creatinine 0.37 MG/DL 0.41 MG/DL 0.42 MG/DL Random Glucose 103 MG/DL 104 MG/DL Calcium Level 8.7 MG/DL 8.8 MG/DL Sodium Level 139 MEQ/L 139 MEQ/L Potassium Level 3.2 MEQ/L 3.9 MEQ/L Chloride Level 101 MEQ/L 102 MEQ/L Carbon Dioxide Level 28.7 MEQ/L 30.5 MEQ/L Anion Gap 9 MEQ/L 7 MEQ/L Estimat Glomerular Filtration Rate 179 ML/MIN 159 ML/MIN 154 ML/MIN Magnesium Level 2.0 MG/DL 2.2 MG/DL Microbiology Date/Time Source Procedure Growth Status 07/20/17 00:00 Blood Line Aerobic Blood Culture Pending Received 07/20/17 00:00 Blood Line Anaerobic Blood Culture Pending Received 07/19/17 23:58 Blood Peripheral Aerobic Blood Culture Pending Received 07/19/17 23:58 Blood Peripheral Anaerobic Blood Culture Pending Received 07/19/17 00:00 Blood Peripheral Aerobic Blood Culture - Preliminary NO GROWTH IN 1 DAY Resulted 07/19/17 00:00 Blood Peripheral Anaerobic Blood Culture - Preliminary NO GROWTH IN 1 DAY Resulted 07/19/17 00:00 Blood Other Aerobic Blood Culture - Preliminary NO GROWTH IN 1 DAY Resulted 07/19/17 00:00 Blood Other Anaerobic Blood Culture - Preliminary NO GROWTH IN 1 DAY Resulted Imaging Last Impressions Chest X-Ray 07/17/17 Signed Impressions: Service Date/Time: Monday, July 17, 2017 13:49 - CONCLUSION: Mild patchy peripheral lower lung zone opacity unchanged. Mild chronic cardiac silhouette enlargement. Logan Walton MD Neck CT 07/16/17 0000 Signed Impressions: Service Date/Time: Monday, July 17, 2017 16:22 - CONCLUSION: Stranding of fat in the submandibular anterior soft tissues extending into the deeper soft tissues anterior to the carotid arteries, worse on the left side. There is also some mild inflammatory changes around subcentimeter lymph nodes along the left carotid lymph node chain. Findings are most characteristic of a cellulitis with some early reactive changes in the left-sided cervical lymph nodes. Jacinto Tello MD Upper Extremity Ultrasound 07/11/17 0000 Signed Impressions: Service Date/Time: Tuesday, July 11, 2017 16:40 - CONCLUSION: Normal examination. Mt Vance MD Head CT 07/08/17 0000 Signed Impressions: Service Date/Time: July 19:55 - CONCLUSION: No acute disease. Malcolm Coker MD Physical Exam CONSTITUTIONAL/GENERAL: Awake and alert, NAD, PORT in place R chest w/o e/o infection SKIN: No jaundice, rashes, or lesions. Alopecia EYES: Pupils equal and round and reactive. Extraocular motions intact. No scleral icterus. No injection or drainage. Fundi not examined. HEENT: mucositis, tongue ulcer (very shallow) - still present on R side of the tongue tip . Has <3 cm tender non fluctant L submandubular mass - about the same in size and tenderness CARDIOVASCULAR: Regular rate and rhythm without murmurs, gallops, or rubs. R parotid swelling resolved RESPIRATORY/CHEST: Clear to auscultation. Breath sounds equal bilaterally. No wheezes, rales, or rhonchi. GASTROINTESTINAL: Abdomen soft, non-tender, nondistended. GENITOURINARY: Without palpable bladder distension. MUSCULOSKELETAL: Extremities without clubbing, cyanosis, or edema. No calf tenderness NEUROLOGICAL: Non focal PSYCHIATRIC: Cooperative Assessment & Plan Remarks Kleb pneumo bacteremia ? source (PORT?) Severely immunocompromised AML sp chemo Neutropennia, neuptropenic fever - - persistently ANC of 0 fever is worse C.diff : pt was not tolerating vancomycin and OK with dificid cont merropnem cont micafungin cont dificid cont iv vanco Consider to remove PORT dw Hem/onc fu blood clx Brittney Odell MD Jul 20, 2017 13:36
[2017-07-20] MEDS: METOCLOPRAMIDE INJ 10 MG in SODIUM CHLORIDE 0.9% INJ 50 ML IV SCH (19:48)
[2017-07-20] MEDS: POTASSIUM CHLORIDE INJ 40 MEQ in SODIUM CHLOR 0.9% 1000 ML INJ 1,000 ML IV SCH (21:24)
[2017-07-20] MEDS: ALPRAZolam 0.5 MG TAB PO PRN (21:25)
[2017-07-20] MEDS: MELATONIN 5 MG TAB PO PRN (23:46)
[2017-07-21] VITALS (27 sets, daily range): BP systolic 132–155; BP diastolic 78–92; PULSE 80–124; RESP 16–18; TEMP 97.1–101.4; O2SAT 93–95
[2017-07-21] MEDS: ACYCLOVIR 200 MG CAP PO SCH ×3 (03:02→19:29)
[2017-07-21] MEDS: ONDANSETRON HCL 4 MG/2 ML VIAL IV PUSH PRN ×2 (03:02→09:26)
[2017-07-21] MEDS: ACETAMINOPHEN 325 MG TAB PO PRN ×3 (03:17→21:19)
[2017-07-21] MEDS: MEROPENEM INJ 2,000 MG in SODIUM CHLORIDE 0.9% INJ 100 ML IV SCH ×3 (03:18→20:09)
[2017-07-21 05:12] LABS: HEMATOCRIT 24.6 % (35.0-46.0); HEMOGLOBIN 8.9 GM/DL (11.6-15.3); MEAN CELL VOLUME 81.4 FL (80.0-100.0); MEAN CORPUSCULAR HEMOGLOBIN 29.4 PG (27.0-34.0); PLATELET COUNT 22 TH/MM3 (150-450); RED BLOOD COUNT 3.02 MIL/MM3 (4.00-5.30); RED CELL DISTRIBUTION WIDTH 12.4 % (11.6-17.2)
[2017-07-21 05:13] LABS: MEAN CORPUSCULAR HGB CONC 36.1 % (32.0-36.0)
[2017-07-21] MEDS: POTASSIUM CHLORIDE INJ 40 MEQ in SODIUM CHLOR 0.9% 1000 ML INJ 1,000 ML IV SCH (05:19)
[2017-07-21 05:36] LABS: ALBUMIN 2.5 GM/DL (3.4-5.0); ALKALINE PHOSPHATASE 73 U/L (45-117); ALT (GPT) 12 U/L (10-53); AST (GOT) 16 U/L (15-37); BLOOD UREA NITROGEN 5 MG/DL (7-18); CHLORIDE 100 MEQ/L (98-107); CREATININE 0.44 MG/DL (0.50-1.00); GLOMERULAR FILTRATION RATE 146 ML/MIN (>89); GLUCOSE,RANDOM 119 MG/DL (74-106); SODIUM (NA) 140 MEQ/L (136-145); TOTAL BILIRUBIN ADULT 0.9 MG/DL (0.2-1.0); TOTAL PROTEIN 6.9 GM/DL (6.4-8.2)
[2017-07-21 07:54] LABS: LYMPHOCYTES 100 % (9-44)
[2017-07-21] MEDS: VANCOMYCIN INJ 1,750 MG in SODIUM CHLORID 0.9% 500 ML INJ 500 ML IV SCH ×2 (09:26→20:15)
[2017-07-21] MEDS: NYSTAT/DIPHENHY/LIDO MOUTHWASH (Adult) 120ML SWISH-SWAL SCH ×4 (09:26→20:16)
[2017-07-21] MEDS: CARVEDILOL 3.125 MG TAB PO SCH (09:27)
[2017-07-21] MEDS: FIDAXOMICIN 200 MG TAB PO SCH ×2 (09:27→20:14)
[2017-07-21] MEDS: LOSARTAN 50 MG TAB PO SCH (09:27)
[2017-07-21] MEDS: predniSONE 5 MG TAB PO SCH (09:27)
[2017-07-21] MEDS: PANTOPRAZOLE SOD 40 MG DELAYED RELEASE TAB PO SCH (09:28)
[2017-07-21] MEDS: CITALOPRAM HYDROBROMIDE 20 MG TAB PO SCH (09:28)
[2017-07-21] MEDS: amLODIPine BESYLATE 5 MG TAB PO SCH (09:28)
[2017-07-21] MEDS: MAGNESIUM OXIDE 400 MG TAB PO SCH ×2 (09:28→20:14)
[2017-07-21] MEDS: MICAFUNGIN INJ 150 MG in SODIUM CHLORIDE 0.9% INJ 100 ML IV SCH (13:07)
--- NOTE | 2017-07-21 14:13 | PD.ONC.PN ---
Subjective Subjective Remarks anxious to know BM result NO N/V Fever again last night. Objective Data Date Time Temp Pulse Resp B/P (MAP) Pulse Ox O2 Delivery O2 Flow Rate FiO2 07/21/17 13:00 99.6 07/21/17 13:00 96 07/21/17 12:00 109 07/21/17 12:00 101.4 107 18 138/86 (103) 93 07/21/17 11:00 100 07/21/17 10:00 106 07/21/17 09:00 Room Air 07/21/17 09:00 124 07/21/17 09:00 98.0 98 18 155/87 (109) 93 07/21/17 08:00 90 07/21/17 07:00 100 07/21/17 06:05 87 07/21/17 05:00 87 07/21/17 04:01 85 07/21/17 03:36 85 07/21/17 03:30 97.9 07/21/17 03:30 97.9 87 16 132/84 (100) 95 07/21/17 02:03 89 07/21/17 01:03 95 07/21/17 00:07 101 07/20/17 23:42 106 139/90 (106) 07/20/17 23:37 99.7 07/20/17 23:37 101.6 117 18 146/96 (113) 95 07/20/17 23:00 94 07/20/17 22:06 98 07/20/17 21:02 110 07/20/17 20:12 97 07/20/17 20:00 Room Air 07/20/17 19:37 98.7 95 16 124/76 (92) 98 07/20/17 19:36 98.5 07/20/17 19:02 95 07/20/17 17:00 88 07/20/17 16:20 98.3 105 18 133/84 (100) 95 07/20/17 16:00 102 07/20/17 15:00 86 07/21/17 07/21/17 07/21/17 07:00 15:00 23:00 Intake Total 120 ml Output Total 500 ml Balance -380 ml Result Diagram: 07/21/17 0320 07/21/17 0320 Laboratory Results Laboratory Tests Test 07/20/17 18:40 07/21/17 03:20 Potassium Level 3.7 MEQ/L 3.7 MEQ/L White Blood Count 0.0 TH/MM3 Red Blood Count 3.02 MIL/MM3 Hemoglobin 8.9 GM/DL Hematocrit 24.6 % Mean Corpuscular Volume 81.4 FL Mean Corpuscular Hemoglobin 29.4 PG Mean Corpuscular Hemoglobin Concent 36.1 % Red Cell Distribution Width 12.4 % Platelet Count 22 TH/MM3 Mean Platelet Volume 7.0 FL CBC Comment AUTO DIFF Differential Total Cells Counted 1 Lymphocytes % 100 % Neutrophils # (Manual) 0.0 TH/MM3 Differential Comment FINAL DIFF MANUAL Platelet Estimate LOW Platelet Morphology Comment NORMAL Blood Urea Nitrogen 5 MG/DL Creatinine 0.44 MG/DL Random Glucose 119 MG/DL Total Protein 6.9 GM/DL Albumin 2.5 GM/DL Calcium Level 9.0 MG/DL Alkaline Phosphatase 73 U/L Aspartate Amino Transf (AST/SGOT) 16 U/L Alanine Aminotransferase (ALT/SGPT) 12 U/L Total Bilirubin 0.9 MG/DL Sodium Level 140 MEQ/L Chloride Level 100 MEQ/L Carbon Dioxide Level 30.0 MEQ/L Anion Gap 10 MEQ/L Estimat Glomerular Filtration Rate 146 ML/MIN Culture Results Microbiology Date/Time Source Procedure Growth Status 07/20/17 00:00 Blood Line Aerobic Blood Culture - Preliminary NO GROWTH IN 1 DAY Resulted 07/20/17 00:00 Blood Line Anaerobic Blood Culture - Preliminary NO GROWTH IN 1 DAY Resulted 07/19/17 23:58 Blood Peripheral Aerobic Blood Culture - Preliminary NO GROWTH IN 1 DAY Resulted 07/19/17 23:58 Blood Peripheral Anaerobic Blood Culture - Preliminary NO GROWTH IN 1 DAY Resulted 07/19/17 00:00 Blood Peripheral Aerobic Blood Culture - Preliminary NO GROWTH IN 2 DAYS Resulted 07/19/17 00:00 Blood Peripheral Anaerobic Blood Culture - Preliminary NO GROWTH IN 2 DAYS Resulted 07/19/17 00:00 Blood Other Aerobic Blood Culture - Preliminary NO GROWTH IN 2 DAYS Resulted 07/19/17 00:00 Blood Other Anaerobic Blood Culture - Preliminary NO GROWTH IN 2 DAYS Resulted Administered Medications Medications (Trade) Dose Ordered Sig/Zeynep Route PRN Reason Start Time Stop Time Status Last Admin Dose Admin Carvedilol (Coreg) 3.125 mg DAILY PO 06/29/17 09:00 Future hold 07/21/17 09:27 Prednisone (Deltasone) 5 mg DAILY PO 06/29/17 09:00 07/21/17 09:27 Losartan Potassium (Cozaar) 100 mg DAILY PO 06/29/17 09:00 07/21/17 09:27 Al Hydrox/Mg Hydrox/Simethicone (Mag-Al Plus Susp Liq) 15 ml Q6H PRN PO INDIGESTION 06/28/17 20:45 07/05/17 13:52 Multi-Ingredient Mouthwash/Gargle (Magic Mouthwash Adult Liq) 5 ml QID SWISH-SWAL 06/29/17 13:00 07/21/17 09:26 Ondansetron HCl (Zofran Inj) 4 mg Q6HR PRN IV PUSH nausea 06/29/17 10:15 07/21/17 09:26 Diphenhydramine HCl (Benadryl) 25 mg Q6H PRN PO itching 06/30/17 10:45 07/19/17 09:32 Acetaminophen (Tylenol) 650 mg Q4H PRN PO fever>100.4, PREMED, orpain1-2 07/01/17 10:45 07/21/17 12:18 Melatonin (Melatonin) 5 mg HS PRN PO insomnia 07/02/17 21:00 07/20/17 23:46 Carboxymethylcellulose Sodium (Refresh Tears 0.5% Opth Soln) 1 drop Q6H PRN EACH EYE dry eyes 07/04/17 11:30 07/04/17 19:44 Prochlorperazine Edisylate (Compazine Inj) 10 mg Q8H PRN IV PUSH nausea 07/05/17 10:15 07/18/17 22:34 Alprazolam (Xanax) 0.25 mg Q8HR PRN PO anxiety 07/06/17 10:00 07/20/17 21:25 Albuterol/ Ipratropium (Duoneb Neb) 1 ampule Q6HR NEB PRN NEB SHORTNESS OF BREATH 07/06/17 18:00 07/07/17 20:44 Guaifenesin/ Codeine Phosphate (Robitussin Ac 200-20 Mg/10 ml Liq) 10 ml Q4H PRN PO cough 07/07/17 13:30 07/11/17 21:05 Amlodipine Besylate (Norvasc) 5 mg DAILY PO 07/08/17 19:00 07/21/17 09:28 Citalopram Hydrobromide (CeleXA) 20 mg DAILY PO 07/12/17 09:00 07/21/17 09:28 Acyclovir (Zovirax) 400 mg Q8H PO 07/12/17 02:00 07/21/17 09:27 Metoclopramide HCl 10 mg/Sodium Chloride 52 ml @ 104 mls/hr DAILY@2000 IV 07/14/17 20:00 07/20/17 19:48 Pantoprazole Sodium (Protonix) 40 mg DAILY PO 07/14/17 09:00 07/21/17 09:28 Magnesium Oxide (Mag-Ox) 400 mg BID PO 07/16/17 09:00 07/21/17 09:28 Fidaxomicin (Dificid) 200 mg BID PO 07/16/17 21:00 07/26/17 20:59 07/21/17 09:27 Vancomycin HCl 1750 mg/Sodium Chloride 517.5 ml @ 250 mls/hr Q12H IV 07/17/17 20:00 07/21/17 09:26 Diphenhydramine HCl (Benadryl) 25 mg Q4H PRN PO SEE LABEL COMMENTS 07/18/17 07:30 07/18/17 10:11 Meropenem 2000 mg/ Sodium Chloride 100 ml @ 200 mls/hr Q8H IV 07/18/17 11:00 07/21/17 12:18 Micafungin Sodium 150 mg/Sodium Chloride 100 ml @ 100 mls/hr Q24H IV 07/18/17 12:00 07/21/17 13:07 Enalaprilat (Vasotec Inj) 1.25 mg Q8H PRN IV PUSH SBP>160, DBP>90 07/18/17 17:15 07/18/17 18:01 Potassium Chloride 40 meq/ Sodium Chloride 1,020 ml @ 42 mls/hr Q24H IV 07/19/17 19:20 07/20/17 21:24 Objective Remarks GENERAL: Well-nourished, well-developed patient. SKIN: Warm and dry. HEAD: Normocephalic. EYES: No scleral icterus. No injection or drainage. NECK: Supple, trachea midline. No JVD or lymphadenopathy. LYMPHATIC: No adenopathy. CARDIOVASCULAR: Regular rate and rhythm without murmurs. RESPIRATORY: Breath sounds equal bilaterally. No accessory muscle use. GASTROINTESTINAL: Abdomen soft, non-tender, nondistended. EXTREMITIES: No cyanosis, or edema. NEUROLOGICAL: No obvious focal deficit. Awake, alert, and oriented x3. 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 BM bx is still pending. I have called [facility]. There is a delay in getting the specimen. They willl run today and will call me. BM morphology is pending. Call place to pathologist Dr Melendez. NO TX today. ANC is 0. D/W BMT team at [facility]. willl follow. 07/20/17: D.23. await path from bone marrow biopsy. continue fluids, electrolyte replacement. 07/19/17: D22. bone marrow biopsy today. transfuse 1 unit platelets. start NS+ 40K @84cc/hr continuous infusion. check magnesium. 07/18/17 D21: Blood cultures pending from fever spike yesterday. Transfuse 2 units packed red blood cells for hemoglobin of 6.6. Plan to transfuse a total of 80 mEq potassium for level 3.4 today. Repeat bone marrow biopsy in a.m. 07/17/17: D20:Await CBC today. May have to have vascular place peripheral IV if unable to get blood return from [id number]. Replace Potassium today. Await CT neck. Pt agrees to imaging. 07/16/17: D19. give [address] neck for enlarging subinguinal LN ? continue antibiotics. increase Magnesium to BID. continue IV Potassium. 07/15/17: D18. no transfusion. obtain blood cultures for fever spike last night. give potassium as ordered. monitor closely 07/14/17: D17. no transfusion. give IV potassium. notify cardiology of 6 beat run of V-tach overnight 07/13/17: D16. give 1unit pRBC, 1 unit platelets. facial swelling improved. start diflucan for thrush. 07/12/17: D15: no transfusion. monitor right-sided facial swelling. refusing MRI. continue antibiotics and lemon lozenges. 07/11/17: D14 No transfusion. Patient with right-sided facial swelling 07/10/17: D13 Hgb 7.9. Transfuse 1 unit irradiated PRBC's. K3.1. Transfuse total of 80 meq's to keep K greater than 4.0 per cardiology recs. Give 400mg magnesium oxide 4 mag level of 1.9 07/09/17: D12. hgb 8, platelet count of 7, will transfuse blood and platelets. 07/08/17: D11. continue antibiotics. monitor for fever 07/07/27: D10. give 1 unit pRBC and 1 unit platelets. continue antibiotics. 07/06/17: D9. no transfusion, spiked fever. start antibiotics, obtain cultures, u /a and chest x-ray. 07/05/17: D8. Transfuse 1 unit irradiated platelets today. Start Rydapt 50mg po BID x 14 days. 07/04/17: D7. no transfusion. monitor for fever 07/03/17: D6. 2 units pRBC. last day of chemotherapy 07/02/17: D5. 1 unit platelets. continue chemotherapy. 07/01/17: D4. 1 unit platelets. continue chemotherapy. 06/30/17: D3. Tolerating chemo. No transfusion today. 06/29/17: D2, give 2 units pRBC this AM. start chemotherapy this afternoon. 06/28/17: admission, D1 (2) Neutropenic fever ICD Codes: D70.9 - Neutropenia, unspecified; R50.81 - Fever presenting with conditions classified elsewhere Status: Acute Plan: --BC 07/17: no growth. --BC, 07/06 gram negative rods, Klebsiella Pneumoniae --CXR shows mild patchy peripheral lower lung zone. --U/A neg (3) C. difficile diarrhea ICD Codes: A04.72 - Enterocolitis due to Clostridium difficile, not specified as recurrent Plan: --on PO Dificid (4) Thrush ICD Codes: B37.0 - Candidal stomatitis Plan: --magic mouthwash. (5) Ventricular tachycardia (paroxysmal) ICD Codes: I47.2 - Ventricular tachycardia Plan: --seen by Dr. Barker, advises: keep her potassium levels above 4. Try to keep her magnesium levels near 2 or above. (6) Neck mass ICD Codes: R22.1 - Localized swelling, mass and lump, neck Plan: -- CT of the neck shows findings characteristic of cellulitis with early reactive changes in the left-sided cervical lymph nodes. Assessment 57y/o female admitted for salvage chemotherapy with FLAG-AKASH for refractory acute myeloid leukemia. h/o Rheumatoid arthritis. Anxiety disorder. COPD. Depression. Hypercholesterolemia. Hypertension. Irregular heartbeat April Fonseca MD Jul 21, 2017 14:13
--- NOTE | 2017-07-21 14:38 | HHI.PR ---
Addendum to Inpatient Note Additional Information pt was seen around 1330 full note to follow Brittney Odell MD Jul 21, 2017 14:38
--- NOTE | 2017-07-21 19:55 | HHI.IDPN ---
Subjective Subjective Remarks having fever up to 101.4 T max co fever no diarhea no nausea, vomiting Antibiotics micafungin meropenem acyclovir vanco dificid Lines Line sites with no e.o infection Port site ok. Past Medical History Past h/o Kleb pneumo bacteremia in May 2017. Allergies: Coded Allergies: cefepime (Verified Allergy, Severe, HIVES, 06/25/17) latex (Unverified Allergy, Severe, Rash, 06/25/17) Sulfa (Sulfonamide Antibiotics) (Unverified Adverse Reaction, Severe, Vomiting, cramps, 06/25/17) Objective . Vital Signs Date Time Temp Pulse Resp B/P (MAP) Pulse Ox O2 Delivery O2 Flow Rate FiO2 07/21/17 19:37 86 07/21/17 18:00 90 07/21/17 17:06 98.1 100 16 141/78 (99) 94 07/21/17 17:00 80 07/21/17 16:00 86 07/21/17 15:00 80 07/21/17 14:00 104 07/21/17 13:00 99.6 07/21/17 13:00 96 07/21/17 12:00 109 07/21/17 12:00 101.4 107 18 138/86 (103) 93 07/21/17 11:00 100 07/21/17 10:00 106 07/21/17 09:00 Room Air 07/21/17 09:00 124 07/21/17 09:00 98.0 98 18 155/87 (109) 93 07/21/17 08:00 90 07/21/17 07:00 100 07/21/17 06:05 87 07/21/17 05:00 87 07/21/17 04:01 85 07/21/17 03:36 85 07/21/17 03:30 97.9 07/21/17 03:30 97.9 87 16 132/84 (100) 95 07/21/17 02:03 89 07/21/17 01:03 95 07/21/17 00:07 101 07/20/17 23:42 106 139/90 (106) 07/20/17 23:37 99.7 07/20/17 23:37 101.6 117 18 146/96 (113) 95 07/20/17 23:00 94 07/20/17 22:06 98 07/20/17 21:02 110 07/20/17 20:12 97 07/20/17 20:00 Room Air 07/21/17 07/21/17 07/22/17 15:00 23:00 07:00 Intake Total 960 ml Output Total 1200 ml Balance -240 ml Intake Oral 960 ml Output Urine Total 1200 ml . Laboratory Tests Test 07/20/17 03:00 07/21/17 03:20 White Blood Count 0.0 TH/MM3 0.0 TH/MM3 Red Blood Count 2.99 MIL/MM3 3.02 MIL/MM3 Hemoglobin 9.0 GM/DL 8.9 GM/DL Hematocrit 24.5 % 24.6 % Mean Corpuscular Volume 81.9 FL 81.4 FL Mean Corpuscular Hemoglobin 30.0 PG 29.4 PG Mean Corpuscular Hemoglobin Concent 36.7 % 36.1 % Red Cell Distribution Width 12.7 % 12.4 % Platelet Count 31 TH/MM3 22 TH/MM3 Mean Platelet Volume 7.5 FL 7.0 FL CBC Comment AUTO DIFF AUTO DIFF Differential Total Cells Counted 2 1 Neutrophils % (Manual) 50 % Lymphocytes % 50 % 100 % Neutrophils # (Manual) 0.0 TH/MM3 0.0 TH/MM3 Differential Comment FINAL DIFF MANUAL FINAL DIFF MANUAL Plasma Cells % Platelet Estimate LOW LOW Platelet Morphology Comment NORMAL NORMAL Laboratory Tests Test 07/20/17 03:00 07/20/17 07:45 07/20/17 18:40 07/21/17 03:20 Creatinine 0.41 MG/DL 0.42 MG/DL 0.44 MG/DL Estimat Glomerular Filtration Rate 159 ML/MIN 154 ML/MIN 146 ML/MIN Blood Urea Nitrogen 6 MG/DL 5 MG/DL Random Glucose 104 MG/DL 119 MG/DL Calcium Level 8.8 MG/DL 9.0 MG/DL Magnesium Level 2.2 MG/DL Sodium Level 139 MEQ/L 140 MEQ/L Potassium Level 3.9 MEQ/L 3.7 MEQ/L 3.7 MEQ/L Chloride Level 102 MEQ/L 100 MEQ/L Carbon Dioxide Level 30.5 MEQ/L 30.0 MEQ/L Anion Gap 7 MEQ/L 10 MEQ/L Total Protein 6.9 GM/DL Albumin 2.5 GM/DL Alkaline Phosphatase 73 U/L Aspartate Amino Transf (AST/SGOT) 16 U/L Alanine Aminotransferase (ALT/SGPT) 12 U/L Total Bilirubin 0.9 MG/DL Microbiology Date/Time Source Procedure Growth Status 07/20/17 00:00 Blood Line Aerobic Blood Culture - Preliminary NO GROWTH IN 1 DAY Resulted 07/20/17 00:00 Blood Line Anaerobic Blood Culture - Preliminary NO GROWTH IN 1 DAY Resulted 07/19/17 23:58 Blood Peripheral Aerobic Blood Culture - Preliminary NO GROWTH IN 1 DAY Resulted 07/19/17 23:58 Blood Peripheral Anaerobic Blood Culture - Preliminary NO GROWTH IN 1 DAY Resulted 07/19/17 00:00 Blood Peripheral Aerobic Blood Culture - Preliminary NO GROWTH IN 2 DAYS Resulted 07/19/17 00:00 Blood Peripheral Anaerobic Blood Culture - Preliminary NO GROWTH IN 2 DAYS Resulted 07/19/17 00:00 Blood Other Aerobic Blood Culture - Preliminary NO GROWTH IN 2 DAYS Resulted 07/19/17 00:00 Blood Other Anaerobic Blood Culture - Preliminary NO GROWTH IN 2 DAYS Resulted Imaging Last Impressions Bone Biopsy CT 07/19/17 1521 Signed Impressions: Service Date/Time: Wednesday, July 19, 2017 15:58 - CONCLUSION: 1. Uncomplicated CT guided bone marrow aspirate. 2. Uncomplicated CT guided bone marrow biopsy. Malcolm Coker MD Chest X-Ray 07/17/17 0000 Signed Impressions: Service Date/Time: Monday, July 17, 2017 13:49 - CONCLUSION: Mild patchy peripheral lower lung zone opacity unchanged. Mild chronic cardiac silhouette enlargement. Logan Walton MD Neck CT 07/16/17 0000 Signed Impressions: Service Date/Time: Monday, July 17, 2017 16:22 - CONCLUSION: Stranding of fat in the submandibular anterior soft tissues extending into the deeper soft tissues anterior to the carotid arteries, worse on the left side. There is also some mild inflammatory changes around subcentimeter lymph nodes along the left carotid lymph node chain. Findings are most characteristic of a cellulitis with some early reactive changes in the left-sided cervical lymph nodes. Jacinto Tello MD Upper Extremity Ultrasound 07/11/17 0000 Signed Impressions: Service Date/Time: Tuesday, July 11, 2017 16:40 - CONCLUSION: Normal examination. Mt Vance MD Head CT 07/08/17 0000 Signed Impressions: Service Date/Time: July 19:55 - CONCLUSION: No acute disease. Malcolm Coker MD Physical Exam CONSTITUTIONAL/GENERAL: Awake and alert, NAD, PORT in place R chest w/o e/o infection SKIN: No jaundice, rashes, or lesions. Alopecia EYES: Pupils equal and round and reactive. Extraocular motions intact. No scleral icterus. No injection or drainage. Fundi not examined. HEENT: mucositis, tongue ulcer (very shallow) - still present on R side of the tongue tip . Has <3 cm tender non fluctant L submandubular mass - about the same in size and tenderness CARDIOVASCULAR: Regular rate and rhythm without murmurs, gallops, or rubs. R parotid swelling resolved RESPIRATORY/CHEST: Clear to auscultation. Breath sounds equal bilaterally. No wheezes, rales, or rhonchi. GASTROINTESTINAL: Abdomen soft, non-tender, nondistended. GENITOURINARY: Without palpable bladder distension. MUSCULOSKELETAL: Extremities without clubbing, cyanosis, or edema. No calf tenderness NEUROLOGICAL: Non focal PSYCHIATRIC: Cooperative Assessment & Plan Remarks Sepsis in an Immune compromised host. New fevers ? new infection. Kleb pneumo bacteremia ? source (PORT?) This appears recurrent similar Kleb pneumo bacteremia in May 2017. 2 D echo negative from 06/30 US negative for thrombosys Sialoadenitis/Parotitis. Cold sore ? HSV Possible line infection Severely immunocompromised, neutropenic. AML sp chemo Neutropenia, neutropenic fever - resolved - persistent absolute neutropenia C.diff - improved diarrhea R sided parotitis, Staph including MRSA is primary consideration Recs: cont meropenemV (for Kleb pneumo) cont PO difricid (for Cdiff) start flagyl oral (for anaerobes for mouth jeromy given concern for sialoadenitis ) Cont vancomycin cont oral acyclovir. consider PORT removal Brittney Odell MD Jul 21, 2017 19:55
[2017-07-21] MEDS: METOCLOPRAMIDE INJ 10 MG in SODIUM CHLORIDE 0.9% INJ 50 ML IV SCH (20:10)
[2017-07-21] MEDS: ALPRAZolam 0.5 MG TAB PO PRN (21:18)
[2017-07-22] VITALS (35 sets, daily range): BP systolic 127–200; BP diastolic 71–109; PULSE 84–110; RESP 16–18; TEMP 98.1–101.1; O2SAT 93–98
[2017-07-22] MEDS: ACYCLOVIR 200 MG CAP PO SCH ×3 (01:47→18:28)
[2017-07-22] MEDS: MEROPENEM INJ 2,000 MG in SODIUM CHLORIDE 0.9% INJ 100 ML IV SCH ×2 (03:46→21:16)
[2017-07-22] MEDS: ACETAMINOPHEN 325 MG TAB PO PRN ×4 (03:46→21:06)
[2017-07-22] MEDS: MELATONIN 5 MG TAB PO PRN (04:35)
[2017-07-22 04:57] LABS: MEAN CELL VOLUME 81.1 FL (80.0-100.0); MEAN CORPUSCULAR HEMOGLOBIN 29.2 PG (27.0-34.0); MEAN PLATELET VOLUME 7.1 FL (7.0-11.0); RED BLOOD COUNT 1.95 MIL/MM3 (4.00-5.30)
[2017-07-22 05:14] LABS: ALBUMIN 2.3 GM/DL (3.4-5.0); ALT (GPT) 14 U/L (10-53); AST (GOT) 22 U/L (15-37); BICARBONATE 29.9 MEQ/L (21.0-32.0); BLOOD UREA NITROGEN 6 MG/DL (7-18); CALCIUM 8.5 MG/DL (8.5-10.1); CHLORIDE 98 MEQ/L (98-107); CREATININE 0.34 MG/DL (0.50-1.00); GLOMERULAR FILTRATION RATE 197 ML/MIN (>89); GLUCOSE,RANDOM 94 MG/DL (74-106); SODIUM (NA) 138 MEQ/L (136-145)
[2017-07-22 05:15] LABS: HEMOGLOBIN 5.7 GM/DL (11.6-15.3)
[2017-07-22 05:16] LABS: ALKALINE PHOSPHATASE 75 U/L (45-117); HEMATOCRIT 15.8 % (35.0-46.0); PLATELET COUNT 6 TH/MM3 (150-450); TOTAL BILIRUBIN ADULT 0.8 MG/DL (0.2-1.0); TOTAL PROTEIN 6.6 GM/DL (6.4-8.2)
[2017-07-22] MEDS: VANCOMYCIN INJ 1,750 MG in SODIUM CHLORID 0.9% 500 ML INJ 500 ML IV SCH ×2 (07:18→23:13)
[2017-07-22 08:13] LABS: LYMPHOCYTES 100 % (9-44)
[2017-07-22] MEDS: NYSTAT/DIPHENHY/LIDO MOUTHWASH (Adult) 120ML SWISH-SWAL SCH ×4 (09:00→20:44)
[2017-07-22] MEDS: CITALOPRAM HYDROBROMIDE 20 MG TAB PO SCH (09:46)
[2017-07-22] MEDS: FIDAXOMICIN 200 MG TAB PO SCH ×2 (09:47→20:44)
[2017-07-22] MEDS: MAGNESIUM OXIDE 400 MG TAB PO SCH ×2 (09:47→20:44)
[2017-07-22] MEDS: LOSARTAN 50 MG TAB PO SCH (09:47)
[2017-07-22] MEDS: predniSONE 5 MG TAB PO SCH (09:47)
[2017-07-22] MEDS: CARVEDILOL 3.125 MG TAB PO SCH (09:47)
[2017-07-22] MEDS: diphenhydrAMINE HCL 25 MG CAP PO PRN ×3 (09:48→16:03)
[2017-07-22] MEDS: amLODIPine BESYLATE 5 MG TAB PO SCH (09:48)
[2017-07-22] MEDS: PANTOPRAZOLE SOD 40 MG DELAYED RELEASE TAB PO SCH (09:48)
[2017-07-22] MEDS: ONDANSETRON HCL 4 MG/2 ML VIAL IV PUSH PRN ×2 (10:22→20:58)
--- NOTE | 2017-07-22 11:31 | PD.ONC.PN ---
Subjective Subjective Remarks Afebrile overnight. anxious to know about bone marrow biopsy results. Objective Data Date Time Temp Pulse Resp B/P (MAP) Pulse Ox O2 Delivery O2 Flow Rate FiO2 07/22/17 11:14 98.8 94 16 127/75 98 07/22/17 08:30 Room Air 07/22/17 08:00 98.1 98 16 134/81 (98) 98 07/22/17 06:00 90 07/22/17 05:00 92 07/22/17 04:00 107 07/22/17 03:38 99.9 84 16 146/88 (107) 95 07/22/17 03:00 90 07/22/17 02:00 90 07/22/17 01:00 92 07/22/17 00:31 99.1 84 16 137/82 (100) 94 07/22/17 00:00 89 07/21/17 23:00 92 07/21/17 22:00 96 07/21/17 21:00 122 07/21/17 20:03 97.1 95 16 138/92 (107) 93 07/21/17 20:01 Room Air 07/21/17 20:00 95 07/21/17 19:37 86 07/21/17 18:00 90 07/21/17 17:06 98.1 100 16 141/78 (99) 94 07/21/17 17:00 80 07/21/17 16:00 86 07/21/17 15:00 80 07/21/17 14:00 104 07/21/17 13:00 99.6 07/21/17 13:00 96 07/21/17 12:00 109 07/21/17 12:00 101.4 107 18 138/86 (103) 93 07/22/17 07/22/17 07/22/17 07:00 15:00 23:00 Output Total 600 ml Balance -600 ml Result Diagram: 07/22/17 0335 07/22/17 0335 Laboratory Results Laboratory Tests Test 07/22/17 03:35 White Blood Count 0.0 TH/MM3 Red Blood Count 1.95 MIL/MM3 Hemoglobin 5.7 GM/DL Hematocrit 15.8 % Mean Corpuscular Volume 81.1 FL Mean Corpuscular Hemoglobin 29.2 PG Mean Corpuscular Hemoglobin Concent 36.0 % Red Cell Distribution Width 12.0 % Platelet Count 6 TH/MM3 Mean Platelet Volume 7.1 FL CBC Comment AUTO DIFF Differential Total Cells Counted 2 Lymphocytes % 100 % Neutrophils # (Manual) 0.0 TH/MM3 Differential Comment FINAL DIFF MANUAL Platelet Estimate RARE Platelet Morphology Comment NORMAL Blood Urea Nitrogen 6 MG/DL Creatinine 0.34 MG/DL Random Glucose 94 MG/DL Total Protein 6.6 GM/DL Albumin 2.3 GM/DL Calcium Level 8.5 MG/DL Alkaline Phosphatase 75 U/L Aspartate Amino Transf (AST/SGOT) 22 U/L Alanine Aminotransferase (ALT/SGPT) 14 U/L Total Bilirubin 0.8 MG/DL Sodium Level 138 MEQ/L Potassium Level 3.3 MEQ/L Chloride Level 98 MEQ/L Carbon Dioxide Level 29.9 MEQ/L Anion Gap 10 MEQ/L Estimat Glomerular Filtration Rate 197 ML/MIN Culture Results Microbiology Date/Time Source Procedure Growth Status 07/20/17 00:00 Blood Line Aerobic Blood Culture - Preliminary NO GROWTH IN 2 DAYS Resulted 07/20/17 00:00 Blood Line Anaerobic Blood Culture - Preliminary NO GROWTH IN 2 DAYS Resulted 07/19/17 23:58 Blood Peripheral Aerobic Blood Culture - Preliminary NO GROWTH IN 2 DAYS Resulted 07/19/17 23:58 Blood Peripheral Anaerobic Blood Culture - Preliminary NO GROWTH IN 2 DAYS Resulted Administered Medications Medications (Trade) Dose Ordered Sig/Zeynep Route PRN Reason Start Time Stop Time Status Last Admin Dose Admin Carvedilol (Coreg) 3.125 mg DAILY PO 06/29/17 09:00 Future hold 07/22/17 09:47 Prednisone (Deltasone) 5 mg DAILY PO 06/29/17 09:00 07/22/17 09:47 Losartan Potassium (Cozaar) 100 mg DAILY PO 06/29/17 09:00 07/22/17 09:47 Al Hydrox/Mg Hydrox/Simethicone (Mag-Al Plus Susp Liq) 15 ml Q6H PRN PO INDIGESTION 06/28/17 20:45 07/05/17 13:52 Multi-Ingredient Mouthwash/Gargle (Magic Mouthwash Adult Liq) 5 ml QID SWISH-SWAL 06/29/17 13:00 07/21/17 09:26 Ondansetron HCl (Zofran Inj) 4 mg Q6HR PRN IV PUSH nausea 06/29/17 10:15 3/15/18 10:22 Diphenhydramine HCl (Benadryl) 25 mg Q6H PRN PO itching 06/30/17 10:45 07/19/17 09:32 Acetaminophen (Tylenol) 650 mg Q4H PRN PO fever>100.4, PREMED, orpain1-2 07/01/17 10:45 07/22/17 03:46 Melatonin (Melatonin) 5 mg HS PRN PO insomnia 07/02/17 21:00 07/22/17 04:35 Carboxymethylcellulose Sodium (Refresh Tears 0.5% Opth Soln) 1 drop Q6H PRN EACH EYE dry eyes 07/04/17 11:30 07/04/17 19:44 Prochlorperazine Edisylate (Compazine Inj) 10 mg Q8H PRN IV PUSH nausea 07/05/17 10:15 07/18/17 22:34 Alprazolam (Xanax) 0.25 mg Q8HR PRN PO anxiety 07/06/17 10:00 07/21/17 21:18 Albuterol/ Ipratropium (Duoneb Neb) 1 ampule Q6HR NEB PRN NEB SHORTNESS OF BREATH 07/06/17 18:00 07/07/17 20:44 Guaifenesin/ Codeine Phosphate (Robitussin Ac 200-20 Mg/10 ml Liq) 10 ml Q4H PRN PO cough 07/07/17 13:30 07/11/17 21:05 Amlodipine Besylate (Norvasc) 5 mg DAILY PO 07/08/17 19:00 07/22/17 09:48 Citalopram Hydrobromide (CeleXA) 20 mg DAILY PO 07/12/17 09:00 07/22/17 09:46 Acyclovir (Zovirax) 400 mg Q8H PO 07/12/17 02:00 07/22/17 10:22 Metoclopramide HCl 10 mg/Sodium Chloride 52 ml @ 104 mls/hr DAILY@2000 IV 07/14/17 20:00 07/21/17 20:10 Pantoprazole Sodium (Protonix) 40 mg DAILY PO 07/14/17 09:00 07/22/17 09:48 Magnesium Oxide (Mag-Ox) 400 mg BID PO 07/16/17 09:00 07/22/17 09:47 Fidaxomicin (Dificid) 200 mg BID PO 07/16/17 21:00 07/26/17 20:59 07/22/17 09:47 Vancomycin HCl 1750 mg/Sodium Chloride 517.5 ml @ 250 mls/hr Q12H IV 07/17/17 20:00 07/22/17 07:18 Meropenem 2000 mg/ Sodium Chloride 100 ml @ 200 mls/hr Q8H IV 07/18/17 11:00 07/22/17 03:46 Micafungin Sodium 150 mg/Sodium Chloride 100 ml @ 100 mls/hr Q24H IV 07/18/17 12:00 07/21/17 13:07 Enalaprilat (Vasotec Inj) 1.25 mg Q8H PRN IV PUSH SBP>160, DBP>90 07/18/17 17:15 07/18/17 18:01 Potassium Chloride 40 meq/ Sodium Chloride 1,020 ml @ 42 mls/hr Q24H IV 07/19/17 19:20 07/20/17 21:24 Objective Remarks GENERAL: Well-nourished, well-developed patient. SKIN: Warm and dry. HEAD: Normocephalic. EYES: No scleral icterus. No injection or drainage. NECK: Supple, trachea midline. No JVD or lymphadenopathy. LYMPHATIC: No adenopathy. CARDIOVASCULAR: Regular rate and rhythm without murmurs. RESPIRATORY: Breath sounds equal bilaterally. No accessory muscle use. GASTROINTESTINAL: Abdomen soft, non-tender, nondistended. EXTREMITIES: No cyanosis, or edema. MUSCULOSKELETAL: Adequate muscle tone. NEUROLOGICAL: No obvious focal deficit. Awake, alert, and oriented x3. PSYCHIATRIC: Appropriate mood and affect; insight and judgment normal. 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 hgb 5, platelets 6, give 2 units pRBC and 1 unit platelets. await final bone marrow biopsy. 07/21/17 D 24 . BM bx is still pending. I have called [facility]. There is a delay in getting the specimen. They willl run today and will call me. BM morphology is pending. Call place to pathologist Dr Melendez. NO TX today. ANC is 0. D/W BMT team at [facility]. willl follow. 07/20/17: D.23. await path from bone marrow biopsy. continue fluids, electrolyte replacement. 07/19/17: D22. bone marrow biopsy today. transfuse 1 unit platelets. start NS+ 40K @84cc/hr continuous infusion. check magnesium. 07/18/17 D21: Blood cultures pending from fever spike yesterday. Transfuse 2 units packed red blood cells for hemoglobin of 6.6. Plan to transfuse a total of 80 mEq potassium for level 3.4 today. Repeat bone marrow biopsy in a.m. 07/17/17: D20:Await CBC today. May have to have vascular place peripheral IV if unable to get blood return from [id number]. Replace Potassium today. Await CT neck. Pt agrees to imaging. 07/16/17: D19. give [address] neck for enlarging subinguinal LN ? continue antibiotics. increase Magnesium to BID. continue IV Potassium. 07/15/17: D18. no transfusion. obtain blood cultures for fever spike last night. give potassium as ordered. monitor closely 07/14/17: D17. no transfusion. give IV potassium. notify cardiology of 6 beat run of V-tach overnight 07/13/17: D16. give 1unit pRBC, 1 unit platelets. facial swelling improved. start diflucan for thrush. 07/12/17: D15: no transfusion. monitor right-sided facial swelling. refusing MRI. continue antibiotics and lemon lozenges. 07/11/17: D14 No transfusion. Patient with right-sided facial swelling 07/10/17: D13 Hgb 7.9. Transfuse 1 unit irradiated PRBC's. K3.1. Transfuse total of 80 meq's to keep K greater than 4.0 per cardiology recs. Give 400mg magnesium oxide 4 mag level of 1.9 07/09/17: D12. hgb 8, platelet count of 7, will transfuse blood and platelets. 07/08/17: D11. continue antibiotics. monitor for fever 07/07/27: D10. give 1 unit pRBC and 1 unit platelets. continue antibiotics. 07/06/17: D9. no transfusion, spiked fever. start antibiotics, obtain cultures, u /a and chest x-ray. 07/05/17: D8. Transfuse 1 unit irradiated platelets today. Start Rydapt 50mg po BID x 14 days. 07/04/17: D7. no transfusion. monitor for fever 07/03/17: D6. 2 units pRBC. last day of chemotherapy 07/02/17: D5. 1 unit platelets. continue chemotherapy. 07/01/17: D4. 1 unit platelets. continue chemotherapy. 06/30/17: D3. Tolerating chemo. No transfusion today. 06/29/17: D2, give 2 units pRBC this AM. start chemotherapy this afternoon. 06/28/17: admission, D1 (2) Neutropenic fever ICD Codes: D70.9 - Neutropenia, unspecified; R50.81 - Fever presenting with conditions classified elsewhere Status: Acute Plan: --BC 07/20: no growth. --BC, 07/06 gram negative rods, Klebsiella Pneumoniae --CXR shows mild patchy peripheral lower lung zone. --U/A neg (3) C. difficile diarrhea ICD Codes: A04.72 - Enterocolitis due to Clostridium difficile, not specified as recurrent Plan: --on PO Dificid (4) Thrush ICD Codes: B37.0 - Candidal stomatitis Plan: --magic mouthwash. (5) Ventricular tachycardia (paroxysmal) ICD Codes: I47.2 - Ventricular tachycardia Plan: --seen by Dr. Barker, advises: keep her potassium levels above 4. Try to keep her magnesium levels near 2 or above. (6) Neck mass ICD Codes: R22.1 - Localized swelling, mass and lump, neck Plan: -- CT of the neck shows findings characteristic of cellulitis with early reactive changes in the left-sided cervical lymph nodes. Assessment 57y/o female admitted for salvage chemotherapy with FLAG-AKASH for refractory acute myeloid leukemia. h/o Rheumatoid arthritis. Anxiety disorder. COPD. Depression. Hypercholesterolemia. Hypertension. Irregular heartbeat Attending Statement The exam, history, and the medical decision-making described in the above note were completed with the assistance of the mid-level provider. I reviewed and agree with the findings presented. I attest that I had a [id number] encounter with the patient on the same day, and personally performed and documented my assessment and findings in the medical record. No N/V Eating OK Low grade fever PRBC and plat today. ANC 0 Await BM bx report. Julianna Mcdaniel Jul 22, 2017 11:31 April Fonseca MD Jul 22, 2017 13:00
[2017-07-22] MEDS ORDERED: POTASSIUM CHLORIDE 10 MEQ CAP PO ONE (11:45)
--- NOTE | 2017-07-22 13:39 | HHI.IDPN ---
Subjective Subjective Remarks no fever no diarhea no nausea, vomiting pt has really low counts today, Hb down to 5.7 , ANC 0 and plts 6 Bpne marrow acellular,no blasts Antibiotics micafungin meropenem acyclovir vanco iv dificid Lines Line sites with no e.o infection Port site ok. Past Medical History Past h/o Kleb pneumo bacteremia in May 2017. Allergies: Coded Allergies: cefepime (Verified Allergy, Severe, HIVES, 06/25/17) latex (Unverified Allergy, Severe, Rash, 06/25/17) Sulfa (Sulfonamide Antibiotics) (Unverified Adverse Reaction, Severe, Vomiting, cramps, 06/25/17) Objective . Vital Signs Date Time Temp Pulse Resp B/P (MAP) Pulse Ox O2 Delivery O2 Flow Rate FiO2 07/22/17 12:00 90 07/22/17 11:43 99.0 94 16 129/77 (94) 93 07/22/17 11:39 99.0 94 16 129/77 93 07/22/17 11:14 98.8 94 16 127/75 98 07/22/17 08:30 Room Air 07/22/17 08:00 100 07/22/17 08:00 98.1 98 16 134/81 (98) 98 07/22/17 06:00 90 07/22/17 05:00 92 07/22/17 04:00 107 07/22/17 03:38 99.9 84 16 146/88 (107) 95 07/22/17 03:00 90 07/22/17 02:00 90 07/22/17 01:00 92 07/22/17 00:31 99.1 84 16 137/82 (100) 94 07/22/17 00:00 89 07/21/17 23:00 92 07/21/17 22:00 96 07/21/17 21:00 122 07/21/17 20:03 97.1 95 16 138/92 (107) 93 07/21/17 20:01 Room Air 07/21/17 20:00 95 07/21/17 19:37 86 07/21/17 18:00 90 07/21/17 17:06 98.1 100 16 141/78 (99) 94 07/21/17 17:00 80 07/21/17 16:00 86 07/21/17 15:00 80 07/21/17 14:00 104 . Laboratory Tests Test 07/21/17 03:20 07/22/17 03:35 White Blood Count 0.0 TH/MM3 0.0 TH/MM3 Red Blood Count 3.02 MIL/MM3 1.95 MIL/MM3 Hemoglobin 8.9 GM/DL 5.7 GM/DL Hematocrit 24.6 % 15.8 % Mean Corpuscular Volume 81.4 FL 81.1 FL Mean Corpuscular Hemoglobin 29.4 PG 29.2 PG Mean Corpuscular Hemoglobin Concent 36.1 % 36.0 % Red Cell Distribution Width 12.4 % 12.0 % Platelet Count 22 TH/MM3 6 TH/MM3 Mean Platelet Volume 7.0 FL 7.1 FL CBC Comment AUTO DIFF AUTO DIFF Differential Total Cells Counted 1 2 Lymphocytes % 100 % 100 % Neutrophils # (Manual) 0.0 TH/MM3 0.0 TH/MM3 Differential Comment FINAL DIFF MANUAL FINAL DIFF MANUAL Platelet Estimate LOW RARE Platelet Morphology Comment NORMAL NORMAL Laboratory Tests Test 07/20/17 18:40 07/21/17 03:20 07/22/17 03:35 Potassium Level 3.7 MEQ/L 3.7 MEQ/L 3.3 MEQ/L Blood Urea Nitrogen 5 MG/DL 6 MG/DL Creatinine 0.44 MG/DL 0.34 MG/DL Random Glucose 119 MG/DL 94 MG/DL Total Protein 6.9 GM/DL 6.6 GM/DL Albumin 2.5 GM/DL 2.3 GM/DL Calcium Level 9.0 MG/DL 8.5 MG/DL Alkaline Phosphatase 73 U/L 75 U/L Aspartate Amino Transf (AST/SGOT) 16 U/L 22 U/L Alanine Aminotransferase (ALT/SGPT) 12 U/L 14 U/L Total Bilirubin 0.9 MG/DL 0.8 MG/DL Sodium Level 140 MEQ/L 138 MEQ/L Chloride Level 100 MEQ/L 98 MEQ/L Carbon Dioxide Level 30.0 MEQ/L 29.9 MEQ/L Anion Gap 10 MEQ/L 10 MEQ/L Estimat Glomerular Filtration Rate 146 ML/MIN 197 ML/MIN Microbiology Date/Time Source Procedure Growth Status 07/20/17 00:00 Blood Line Aerobic Blood Culture - Preliminary NO GROWTH IN 2 DAYS Resulted 07/20/17 00:00 Blood Line Anaerobic Blood Culture - Preliminary NO GROWTH IN 2 DAYS Resulted 07/19/17 23:58 Blood Peripheral Aerobic Blood Culture - Preliminary NO GROWTH IN 2 DAYS Resulted 07/19/17 23:58 Blood Peripheral Anaerobic Blood Culture - Preliminary NO GROWTH IN 2 DAYS Resulted Imaging Last Impressions Bone Biopsy CT 07/19/17 1521 Signed Impressions: Service Date/Time: Wednesday, July 19, 2017 15:58 - CONCLUSION: 1. Uncomplicated CT guided bone marrow aspirate. 2. Uncomplicated CT guided bone marrow biopsy. Malcolm Coker MD Chest X-Ray 07/17/17 0000 Signed Impressions: Service Date/Time: Monday, July 17, 2017 13:49 - CONCLUSION: Mild patchy peripheral lower lung zone opacity unchanged. Mild chronic cardiac silhouette enlargement. Logan Walton MD Neck CT 07/16/17 0000 Signed Impressions: Service Date/Time: Monday, July 17, 2017 16:22 - CONCLUSION: Stranding of fat in the submandibular anterior soft tissues extending into the deeper soft tissues anterior to the carotid arteries, worse on the left side. There is also some mild inflammatory changes around subcentimeter lymph nodes along the left carotid lymph node chain. Findings are most characteristic of a cellulitis with some early reactive changes in the left-sided cervical lymph nodes. Jacinto Tello MD Upper Extremity Ultrasound 07/11/17 0000 Signed Impressions: Service Date/Time: Tuesday, July 11, 2017 16:40 - CONCLUSION: Normal examination. Mt Vance MD Head CT 07/08/17 0000 Signed Impressions: Service Date/Time: July 19:55 - CONCLUSION: No acute disease. Malcolm Coker MD Physical Exam CONSTITUTIONAL/GENERAL: Awake and alert, NAD, PORT in place R chest w/o e/o infection SKIN: No jaundice, rashes, or lesions. Alopecia EYES: Pupils equal and round and reactive. Extraocular motions intact. No scleral icterus. No injection or drainage. Fundi not examined. HEENT: mucositis, tongue ulcer (very shallow) - still present on R side of the tongue tip . Has <3 cm tender non fluctant L submandubular mass - about the same in size and tenderness CARDIOVASCULAR: Regular rate and rhythm without murmurs, gallops, or rubs. R parotid swelling resolved RESPIRATORY/CHEST: Clear to auscultation. Breath sounds equal bilaterally. No wheezes, rales, or rhonchi. GASTROINTESTINAL: Abdomen soft, non-tender, nondistended. GENITOURINARY: Without palpable bladder distension. MUSCULOSKELETAL: Extremities without clubbing, cyanosis, or edema. No calf tenderness NEUROLOGICAL: Non focal PSYCHIATRIC: Cooperative Assessment & Plan Remarks Sepsis in an Immune compromised host. New fevers ? new infection. Kleb pneumo bacteremia ? source (PORT?) This appears recurrent similar Kleb pneumo bacteremia in May 2017. 2 D echo negative from 06/30 US negative for thrombosys Sialoadenitis/Parotitis. Cold sore ? HSV Possible line infection Severely immunocompromised, neutropenic. AML sp chemo Neutropenia, neutropenic fever - resolved on cukrrent abx - persistent absolute neutropenia C.diff - improved diarrhea R sided parotitis, Staph including MRSA is primary consideration Recs: cont meropenemV (for Kleb pneumo) complete PO difricid (for Cdiff) x 10 days Cont vancomycin IV cont oral acyclovir. consider PORT removal - especially if no chemo planned cont micafungin will cont merrem, vanco IV and micafungin untill count recovery of will adjust if + blood clx dw Brittney Maria MD Jul 22, 2017 13:39
[2017-07-22] MEDS: POTASSIUM CHLORIDE INJ 40 MEQ in SODIUM CHLOR 0.9% 1000 ML INJ 1,000 ML IV SCH (20:43)
[2017-07-22] MEDS: METOCLOPRAMIDE INJ 10 MG in SODIUM CHLORIDE 0.9% INJ 50 ML IV SCH (20:43)
[2017-07-22] MEDS: ALPRAZolam 0.5 MG TAB PO PRN (20:58)
[2017-07-22] MEDS: ENALAPRILAT 1.25 MG/ML VIAL IV PUSH PRN (21:06)
[2017-07-22] MEDS: MICAFUNGIN INJ 150 MG in SODIUM CHLORIDE 0.9% INJ 100 ML IV SCH (23:14)
[2017-07-23] VITALS (20 sets, daily range): BP systolic 123–163; BP diastolic 88–103; PULSE 84–120; RESP 16–20; TEMP 97.9–102; O2SAT 92–100
[2017-07-23] MEDS: ACYCLOVIR 200 MG CAP PO SCH ×3 (02:14→16:09)
[2017-07-23] MEDS: MEROPENEM INJ 2,000 MG in SODIUM CHLORIDE 0.9% INJ 100 ML IV SCH ×3 (02:14→21:59)
[2017-07-23] MEDS: MELATONIN 5 MG TAB PO PRN ×2 (02:17→21:48)
[2017-07-23] MEDS: POTASSIUM CHLORIDE INJ 40 MEQ in SODIUM CHLOR 0.9% 1000 ML INJ 1,000 ML IV SCH (04:24)
[2017-07-23] MEDS: ONDANSETRON HCL 4 MG/2 ML VIAL IV PUSH PRN ×2 (04:25→21:40)
[2017-07-23] MEDS: ACETAMINOPHEN 325 MG TAB PO PRN ×2 (04:33→21:41)
[2017-07-23 05:59] LABS: HEMATOCRIT 29.3 % (35.0-46.0); HEMOGLOBIN 10.6 GM/DL (11.6-15.3); MEAN CELL VOLUME 78.3 FL (80.0-100.0); MEAN CORPUSCULAR HEMOGLOBIN 28.4 PG (27.0-34.0); MEAN PLATELET VOLUME 7.6 FL (7.0-11.0); PLATELET COUNT 29 TH/MM3 (150-450); RED BLOOD COUNT 3.74 MIL/MM3 (4.00-5.30); RED CELL DISTRIBUTION WIDTH 14.1 % (11.6-17.2)
[2017-07-23 06:17] LABS: MEAN CORPUSCULAR HGB CONC 36.2 % (32.0-36.0)
[2017-07-23 06:30] LABS: ALBUMIN 2.6 GM/DL (3.4-5.0); ALKALINE PHOSPHATASE 95 U/L (45-117); ALT (GPT) 19 U/L (10-53); AST (GOT) 32 U/L (15-37); BICARBONATE 28.6 MEQ/L (21.0-32.0); BLOOD UREA NITROGEN 8 MG/DL (7-18); CALCIUM 9.4 MG/DL (8.5-10.1); CHLORIDE 96 MEQ/L (98-107); CREATININE 0.49 MG/DL (0.50-1.00); GLOMERULAR FILTRATION RATE 129 ML/MIN (>89); GLUCOSE,RANDOM 113 MG/DL (74-106); SODIUM (NA) 136 MEQ/L (136-145); TOTAL BILIRUBIN ADULT 1.3 MG/DL (0.2-1.0); TOTAL PROTEIN 7.3 GM/DL (6.4-8.2)
[2017-07-23 08:22] LABS: LYMPHOCYTES 100 % (9-44)
[2017-07-23] MEDS: NYSTAT/DIPHENHY/LIDO MOUTHWASH (Adult) 120ML SWISH-SWAL SCH ×4 (09:00→21:54)
[2017-07-23] MEDS: CITALOPRAM HYDROBROMIDE 20 MG TAB PO SCH (09:18)
[2017-07-23] MEDS: amLODIPine BESYLATE 5 MG TAB PO SCH (09:18)
[2017-07-23] MEDS: PANTOPRAZOLE SOD 40 MG DELAYED RELEASE TAB PO SCH (09:18)
[2017-07-23] MEDS: predniSONE 5 MG TAB PO SCH (09:18)
[2017-07-23] MEDS: FIDAXOMICIN 200 MG TAB PO SCH ×2 (09:18→21:41)
[2017-07-23] MEDS: CARVEDILOL 3.125 MG TAB PO SCH (09:18)
[2017-07-23] MEDS: LOSARTAN 50 MG TAB PO SCH (09:18)
[2017-07-23] MEDS: MAGNESIUM OXIDE 400 MG TAB PO SCH ×2 (09:29→21:48)
[2017-07-23] MEDS: VANCOMYCIN INJ 1,750 MG in SODIUM CHLORID 0.9% 500 ML INJ 500 ML IV SCH (09:31)
--- NOTE | 2017-07-23 09:31 | PD.ONC.PN ---
Subjective Subjective Remarks Tmax 102F overnight. Patient resting in bed in nad. Slept ok overnight. Eating okay. No complaints. Objective Data Date Time Temp Pulse Resp B/P (MAP) Pulse Ox O2 Delivery O2 Flow Rate FiO2 07/23/17 08:00 98.0 95 18 131/89 (103) 100 07/23/17 06:00 90 07/23/17 05:20 101.1 07/23/17 05:00 110 07/23/17 04:27 102.0 118 17 159/94 (115) 92 07/23/17 04:00 100 07/23/17 04:00 100 07/23/17 03:00 118 07/23/17 02:00 86 07/23/17 01:00 86 07/23/17 00:37 99.7 92 16 163/93 (116) 96 07/23/17 00:00 84 07/22/17 23:00 104 07/22/17 22:00 96 07/22/17 21:30 183/109 (133) 07/22/17 21:17 101.1 07/22/17 21:00 106 07/22/17 21:00 200/106 (137) 07/22/17 20:35 96 Room Air 07/22/17 20:35 96 07/22/17 20:26 98.1 98 16 96 07/22/17 20:00 92 07/22/17 19:00 84 07/22/17 18:00 84 07/22/17 17:01 99.1 93 16 138/80 93 07/22/17 17:00 84 07/22/17 16:42 99.1 91 16 145/80 95 07/22/17 16:37 99.6 92 18 140/83 94 07/22/17 16:00 98.6 98 16 168/93 (118) 98 07/22/17 16:00 88 07/22/17 15:00 110 07/22/17 14:25 98.1 88 16 131/71 95 07/22/17 14:07 98.2 96 16 139/84 96 07/22/17 14:00 94 07/22/17 13:00 106 07/22/17 12:00 90 07/22/17 11:43 99.0 94 16 129/77 (94) 93 07/22/17 11:39 99.0 94 16 129/77 93 07/22/17 11:14 98.8 94 16 127/75 98 07/23/17 07/23/17 07/23/17 07:00 15:00 23:00 Intake Total 904 ml Output Total 700 ml Balance 204 ml Result Diagram: 07/23/17 0440 07/23/17 0440 Laboratory Results Laboratory Tests Test 07/23/17 04:40 White Blood Count 0.0 TH/MM3 Red Blood Count 3.74 MIL/MM3 Hemoglobin 10.6 GM/DL Hematocrit 29.3 % Mean Corpuscular Volume 78.3 FL Mean Corpuscular Hemoglobin 28.4 PG Mean Corpuscular Hemoglobin Concent 36.2 % Red Cell Distribution Width 14.1 % Platelet Count 29 TH/MM3 Mean Platelet Volume 7.6 FL CBC Comment AUTO DIFF Differential Total Cells Counted 1 Lymphocytes % 100 % Neutrophils # (Manual) 0.0 TH/MM3 Differential Comment FINAL DIFF MANUAL Platelet Estimate RARE Platelet Morphology Comment NORMAL Blood Urea Nitrogen 8 MG/DL Creatinine 0.49 MG/DL Random Glucose 113 MG/DL Total Protein 7.3 GM/DL Albumin 2.6 GM/DL Calcium Level 9.4 MG/DL Alkaline Phosphatase 95 U/L Aspartate Amino Transf (AST/SGOT) 32 U/L Alanine Aminotransferase (ALT/SGPT) 19 U/L Total Bilirubin 1.3 MG/DL Sodium Level 136 MEQ/L Potassium Level 3.5 MEQ/L Chloride Level 96 MEQ/L Carbon Dioxide Level 28.6 MEQ/L Anion Gap 11 MEQ/L Estimat Glomerular Filtration Rate 129 ML/MIN Culture Results Microbiology Date/Time Source Procedure Growth Status 07/22/17 23:00 Blood Peripheral Aerobic Blood Culture Pending Received 07/22/17 23:00 Blood Peripheral Anaerobic Blood Culture Pending Received 07/22/17 22:50 Blood Line Aerobic Blood Culture Pending Received 07/22/17 22:50 Blood Line Anaerobic Blood Culture Pending Received Administered Medications Medications (Trade) Dose Ordered Sig/Zeynep Route PRN Reason Start Time Stop Time Status Last Admin Dose Admin Carvedilol (Coreg) 3.125 mg DAILY PO 06/29/17 09:00 Future hold 07/22/17 09:47 Prednisone (Deltasone) 5 mg DAILY PO 06/29/17 09:00 07/22/17 09:47 Losartan Potassium (Cozaar) 100 mg DAILY PO 06/29/17 09:00 07/22/17 09:47 Al Hydrox/Mg Hydrox/Simethicone (Mag-Al Plus Susp Liq) 15 ml Q6H PRN PO INDIGESTION 06/28/17 20:45 07/05/17 13:52 Multi-Ingredient Mouthwash/Gargle (Magic Mouthwash Adult Liq) 5 ml QID SWISH-SWAL 06/29/17 13:00 07/21/17 09:26 Ondansetron HCl (Zofran Inj) 4 mg Q6HR PRN IV PUSH nausea 06/29/17 10:15 07/23/17 04:25 Diphenhydramine HCl (Benadryl) 25 mg Q6H PRN PO itching 06/30/17 10:45 07/22/17 16:03 Acetaminophen (Tylenol) 650 mg Q4H PRN PO fever>100.4, PREMED, orpain1-2 07/01/17 10:45 07/23/17 04:33 Melatonin (Melatonin) 5 mg HS PRN PO insomnia 07/02/17 21:00 07/23/17 02:17 Carboxymethylcellulose Sodium (Refresh Tears 0.5% Opth Soln) 1 drop Q6H PRN EACH EYE dry eyes 07/04/17 11:30 07/04/17 19:44 Prochlorperazine Edisylate (Compazine Inj) 10 mg Q8H PRN IV PUSH nausea 07/05/17 10:15 07/18/17 22:34 Alprazolam (Xanax) 0.25 mg Q8HR PRN PO anxiety 07/06/17 10:00 07/22/17 20:58 Albuterol/ Ipratropium (Duoneb Neb) 1 ampule Q6HR NEB PRN NEB SHORTNESS OF BREATH 07/06/17 18:00 07/07/17 20:44 Guaifenesin/ Codeine Phosphate (Robitussin Ac 200-20 Mg/10 ml Liq) 10 ml Q4H PRN PO cough 07/07/17 13:30 07/11/17 21:05 Amlodipine Besylate (Norvasc) 5 mg DAILY PO 07/08/17 19:00 07/22/17 09:48 Citalopram Hydrobromide (CeleXA) 20 mg DAILY PO 07/12/17 09:00 07/22/17 09:46 Acyclovir (Zovirax) 400 mg Q8H PO 07/12/17 02:00 07/23/17 02:14 Metoclopramide HCl 10 mg/Sodium Chloride 52 ml @ 104 mls/hr DAILY@2000 IV 07/14/17 20:00 07/22/17 20:43 Pantoprazole Sodium (Protonix) 40 mg DAILY PO 07/14/17 09:00 07/22/17 09:48 Magnesium Oxide (Mag-Ox) 400 mg BID PO 07/16/17 09:00 07/22/17 20:44 Fidaxomicin (Dificid) 200 mg BID PO 07/16/17 21:00 07/26/17 20:59 07/22/17 20:44 Vancomycin HCl 1750 mg/Sodium Chloride 517.5 ml @ 250 mls/hr Q12H IV 07/17/17 20:00 07/22/17 23:13 Meropenem 2000 mg/ Sodium Chloride 100 ml @ 200 mls/hr Q8H IV 07/18/17 11:00 07/23/17 02:14 Enalaprilat (Vasotec Inj) 1.25 mg Q8H PRN IV PUSH SBP>160, DBP>90 07/18/17 17:15 07/22/17 21:06 Potassium Chloride 40 meq/ Sodium Chloride 1,020 ml @ 42 mls/hr Q24H IV 07/19/17 19:20 07/22/17 20:43 Micafungin Sodium 150 mg/Sodium Chloride 100 ml @ 100 mls/hr Q24H IV 07/22/17 22:00 07/22/17 23:14 Objective Remarks GENERAL: Pleasant middle aged female, lying in bed resting. SKIN: Warm and dry. HEAD: Normocephalic. EYES: No injection or drainage. NECK: Supple, trachea midline. CARDIOVASCULAR: Regular rate and rhythm RESPIRATORY: Breath sounds equal bilaterally. No accessory muscle use. GASTROINTESTINAL: Abdomen soft, non-tender, nondistended. EXTREMITIES: No cyanosis NEUROLOGICAL: No obvious focal deficit. Awake, alert, and oriented x3. 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 consult invasive to remove port. consult vascular for PICC line. 07/22/17: D25. hgb 5, platelets 6, give 2 units pRBC and 1 unit platelets. bone marrow biopsy shows empty bone marrow--no blasts. 07/21/17 D 24 . BM bx is still pending. I have called [facility]. There is a delay in getting the specimen. They willl run today and will call me. BM morphology is pending. Call place to pathologist Dr Melendez. NO TX today. ANC is 0. D/W BMT [facility] at [facility]. willl follow. 07/20/17: D.23. await path from bone marrow biopsy. continue fluids, electrolyte replacement. 07/19/17: D22. bone marrow biopsy today. transfuse 1 unit platelets. start NS+ 40K @84cc/hr continuous infusion. check magnesium. 07/18/17 D21: Blood cultures pending from fever spike yesterday. Transfuse 2 units packed red blood cells for hemoglobin of 6.6. Plan to transfuse a total of 80 mEq potassium for level 3.4 today. Repeat bone marrow biopsy in a.m. 07/17/17: D20:Await CBC today. May have to have vascular place peripheral IV if unable to get blood return from [id number]. Replace Potassium today. Await CT neck. Pt agrees to imaging. 07/16/17: D19. give [address] neck for enlarging subinguinal LN ? continue antibiotics. increase Magnesium to BID. continue IV Potassium. 07/15/17: D18. no transfusion. obtain blood cultures for fever spike last night. give potassium as ordered. monitor closely 07/14/17: D17. no transfusion. give IV potassium. notify cardiology of 6 beat run of V-tach overnight 07/13/17: D16. give 1unit pRBC, 1 unit platelets. facial swelling improved. start diflucan for thrush. 07/12/17: D15: no transfusion. monitor right-sided facial swelling. refusing MRI. continue antibiotics and lemon lozenges. 07/11/17: D14 No transfusion. Patient with right-sided facial swelling 07/10/17: D13 Hgb 7.9. Transfuse 1 unit irradiated PRBC's. K3.1. Transfuse total of 80 meq's to keep K greater than 4.0 per cardiology recs. Give 400mg magnesium oxide 4 mag level of 1.9 07/09/17: D12. hgb 8, platelet count of 7, will transfuse blood and platelets. 07/08/17: D11. continue antibiotics. monitor for fever 07/07/27: D10. give 1 unit pRBC and 1 unit platelets. continue antibiotics. 07/06/17: D9. no transfusion, spiked fever. start antibiotics, obtain cultures, u /a and chest x-ray. 07/05/17: D8. Transfuse 1 unit irradiated platelets today. Start Rydapt 50mg po BID x 14 days. 07/04/17: D7. no transfusion. monitor for fever 07/03/17: D6. 2 units pRBC. last day of chemotherapy 07/02/17: D5. 1 unit platelets. continue chemotherapy. 07/01/17: D4. 1 unit platelets. continue chemotherapy. 06/30/17: D3. Tolerating chemo. No transfusion today. 06/29/17: D2, give 2 units pRBC this AM. start chemotherapy this afternoon. 06/28/17: admission, D1 (2) Neutropenic fever ICD Codes: D70.9 - Neutropenia, unspecified; R50.81 - Fever presenting with conditions classified elsewhere Status: Acute Plan: --BC 07/20: no growth. --BC, 07/06 gram negative rods, Klebsiella Pneumoniae --CXR shows mild patchy peripheral lower lung zone. --U/A neg (3) C. difficile diarrhea ICD Codes: A04.72 - Enterocolitis due to Clostridium difficile, not specified as recurrent Plan: --on PO Dificid (4) Thrush ICD Codes: B37.0 - Candidal stomatitis Plan: --magic mouthwash. (5) Ventricular tachycardia (paroxysmal) ICD Codes: I47.2 - Ventricular tachycardia Plan: --seen by Dr. Barker, advises: keep her potassium levels above 4. Try to keep her magnesium levels near 2 or above. Assessment 57y/o female admitted for salvage chemotherapy with FLAG-AKASH for refractory acute myeloid leukemia. h/o Rheumatoid arthritis. Anxiety disorder. COPD. Depression. Hypercholesterolemia. Hypertension. Irregular heartbeat Attending Statement The exam, history, and the medical decision-making described in the above note were completed with the assistance of the mid-level provider. I reviewed and agree with the findings presented. I attest that I had a [id number] encounter with the patient on the same day, and personally performed and documented my assessment and findings in the medical record. Fever with no chills. No N/V/D ANC is still 0. Start Neupogen Remove port for persistent fever, Await BM recovery. Julianna Mcdaniel Jul 23, 2017 09:31 April Fonseca MD Jul 23, 2017 23:45
[2017-07-23] MEDS: ENALAPRILAT 1.25 MG/ML VIAL IV PUSH PRN (12:52)
[2017-07-23] MEDS ORDERED: LIDOCAINE 1%/EPINEPHrine 1:100,000 SOLN 30 ML VIAL OTHER ONE (14:47)
[2017-07-23] MEDS ORDERED: MIDAZOLAM HCL 2 MG/2 ML VIAL IV ONE (14:47)
[2017-07-23] MEDS ORDERED: fentaNYL CITRATE 250 MCG/5 ML AMP IV ONE (14:47)
--- NOTE | 2017-07-23 14:56 | PD.RAD ---
Post Procedure Progress Note Pre Procedure Diagnosis: (1) Sepsis Post Procedure Diagnosis: (1) Sepsis Procedure Date: Jul 23, 2017 Supervising Radiologist: Reinier Castro Estimated blood loss: 3cc Anesthesia: Local, Conscious Sedation Plan of Activity Patient to Unit: Nursing Unit Patient Condition: Fair Additional Comments: Port removed from the right chest without difficulty Full dictated report to follow Catheter tip sent for culture See PACS Report for procedural detail/treatment Reinier Castro MD Jul 23, 2017 14:56
[2017-07-23] MEDS: FILGRASTIM INJ 480 MCG in DEXTROSE 5% IN WATER INJ 50 ML IV SCH ×2 (16:08)
[2017-07-23] MEDS: ALPRAZolam 0.5 MG TAB PO PRN ×2 (16:09→21:49)
--- NOTE | 2017-07-23 17:02 | RADRPT ---
EXAM DATE/TIME: 07/23/2017 00:00 [place] COMPARISON: No previous studies available for comparison. INDICATIONS : Patient with a history of leukemia, possible infected port needs removed. MEDICAL HISTORY : Rheumatoid arthritis Anxiety disorder COPD Depression Hypercholesterolemia HTN Irregular heartbeat SURGICAL HISTORY : Cholecsystectomy Colon resection Complete hysterectomy Infuseaport Right foot surgery Colonoscopy ENCOUNTER: Initial ACUITY: 1 day PAIN SCORE: 3/10 LOCATION: Right shoulder SEDATION TIME: 30 minutes 1.) 2 mg midazolam (Versed) IV 2.) 100 mcg fentanyl (Sublimaze) IV Prophylactic antibiotics were administered with appropriate pre-procedure timing. Vancomycin within 2 hrs of procedure, Ancef (or alternative) within 1 hr of procedure. PROCEDURE : 1. Removal of Rlrpzw-b-[id number]. 2. Conscious sedation with continuous EKG and oximetry monitoring. The risk, benefits and potential complications of Imoevm-h-Ebsk removal were discussed. Written conse nt was obtained. The patient was placed supine. The chest wall was prepped in sterile fashion. Full sterile techniqu e was used, including cap, mask, sterile gloves and gown, and a large sterile sheet. Hand hygiene an d 2% chlorhexidine and/or Betadine/alcohol prep was utilized per protocol for cutaneous antisepsis. The skin and subcutaneous tissues were infiltrated with local anesthetic solution. A small incision w as made, the subcutaneous pocket was opened. The port was dissected from the subcutaneous tissues and easily removed in one piece. The pocket incision was closed with subcuticular Vicryl suture. Steri -Strips were applied. Conscious sedation was performed with the prescribed dosages and duration as above in the presence of an independent trained radiology nurse to assist in the monitoring of the patient. EKG and oximetry remained stable throughout the procedure. The patient tolerated the procedure well and there were no complications. The patient was sent to post anesthesia recovery in stable condition. CONCLUSION: Uncomplicated port removal as above. Reinier Castro MD on July 23, 2017 at 17:00 Board Certified Radiologist. This report was verified electronically.
[2017-07-23] MEDS ORDERED: SODIUM CHLORIDE 0.9% FLUSH 10 ML FLUSH IV FLUSH PRN (19:00)
--- NOTE | 2017-07-23 19:04 | HHI.IDPN ---
Subjective Subjective Remarks fever yday to 102, but n non e today no diarhea no nausea, vomiting co extreme malaise Bpne marrow acellular,no blasts PORT was rempoved Antibiotics micafungin meropenem acyclovir vanco iv dificid Lines Line sites with no e.o infection Port site ok. Past Medical History Past h/o Kleb pneumo bacteremia in May 2017. Allergies: Coded Allergies: cefepime (Verified Allergy, Severe, HIVES, 06/25/17) latex (Unverified Allergy, Severe, Rash, 06/25/17) Sulfa (Sulfonamide Antibiotics) (Unverified Adverse Reaction, Severe, Vomiting, cramps, 06/25/17) Objective . Vital Signs Date Time Temp Pulse Resp B/P (MAP) Pulse Ox O2 Delivery O2 Flow Rate FiO2 07/23/17 16:15 98.8 98 16 142/88 (106) 97 07/23/17 15:30 91 20 123/91 (102) 98 07/23/17 15:15 96 20 128/95 (106) 98 07/23/17 15:00 97.9 100 20 136/100 (112) 97 07/23/17 12:48 99.3 103 20 163/103 (123) 97 07/23/17 12:42 100 07/23/17 11:03 Room Air 07/23/17 11:03 84 07/23/17 08:00 98.0 95 18 131/89 (103) 100 07/23/17 06:00 90 07/23/17 05:20 101.1 07/23/17 05:00 110 07/23/17 04:27 102.0 118 17 159/94 (115) 92 07/23/17 04:00 100 07/23/17 04:00 100 07/23/17 03:00 118 07/23/17 02:00 86 07/23/17 01:00 86 07/23/17 00:37 99.7 92 16 163/93 (116) 96 07/23/17 00:00 84 07/22/17 23:00 104 07/22/17 22:00 96 07/22/17 21:30 183/109 (133) 07/22/17 21:17 101.1 07/22/17 21:00 106 07/22/17 21:00 200/106 (137) 07/22/17 20:35 96 Room Air 07/22/17 20:35 96 07/22/17 20:26 98.1 98 16 96 07/22/17 20:00 92 07/22/17 19:00 84 07/23/17 07/23/17 07/24/17 15:00 23:00 07:00 Intake Total 840 ml Output Total 1550 ml Balance -710 ml Intake Oral 840 ml Output Urine Total 1550 ml # Bowel Movements 1 . Laboratory Tests Test 07/22/17 03:35 07/23/17 04:40 White Blood Count 0.0 TH/MM3 0.0 TH/MM3 Red Blood Count 1.95 MIL/MM3 3.74 MIL/MM3 Hemoglobin 5.7 GM/DL 10.6 GM/DL Hematocrit 15.8 % 29.3 % Mean Corpuscular Volume 81.1 FL 78.3 FL Mean Corpuscular Hemoglobin 29.2 PG 28.4 PG Mean Corpuscular Hemoglobin Concent 36.0 % 36.2 % Red Cell Distribution Width 12.0 % 14.1 % Platelet Count 6 TH/MM3 29 TH/MM3 Mean Platelet Volume 7.1 FL 7.6 FL CBC Comment AUTO DIFF AUTO DIFF Differential Total Cells Counted 2 1 Lymphocytes % 100 % 100 % Neutrophils # (Manual) 0.0 TH/MM3 0.0 TH/MM3 Differential Comment FINAL DIFF MANUAL FINAL DIFF MANUAL Platelet Estimate RARE RARE Platelet Morphology Comment NORMAL NORMAL Laboratory Tests Test 07/22/17 03:35 07/23/17 04:40 Blood Urea Nitrogen 6 MG/DL 8 MG/DL Creatinine 0.34 MG/DL 0.49 MG/DL Random Glucose 94 MG/DL 113 MG/DL Total Protein 6.6 GM/DL 7.3 GM/DL Albumin 2.3 GM/DL 2.6 GM/DL Calcium Level 8.5 MG/DL 9.4 MG/DL Alkaline Phosphatase 75 U/L 95 U/L Aspartate Amino Transf (AST/SGOT) 22 U/L 32 U/L Alanine Aminotransferase (ALT/SGPT) 14 U/L 19 U/L Total Bilirubin 0.8 MG/DL 1.3 MG/DL Sodium Level 138 MEQ/L 136 MEQ/L Potassium Level 3.3 MEQ/L 3.5 MEQ/L Chloride Level 98 MEQ/L 96 MEQ/L Carbon Dioxide Level 29.9 MEQ/L 28.6 MEQ/L Anion Gap 10 MEQ/L 11 MEQ/L Estimat Glomerular Filtration Rate 197 ML/MIN 129 ML/MIN Microbiology Date/Time Source Procedure Growth Status 07/22/17 23:00 Blood Peripheral Aerobic Blood Culture - Preliminary NO GROWTH IN 1 DAY Resulted 07/22/17 23:00 Blood Peripheral Anaerobic Blood Culture - Preliminary NO GROWTH IN 1 DAY Resulted 07/22/17 22:50 Blood Line Aerobic Blood Culture - Preliminary NO GROWTH IN 1 DAY Resulted 07/22/17 22:50 Blood Line Anaerobic Blood Culture - Preliminary NO GROWTH IN 1 DAY Resulted 07/23/17 14:30 Catheter Tip Central Venous Line Wound Culture Pending Received Imaging Last Impressions Port Line Revision 07/23/17 0000 Signed Impressions: Service Date/Time: Sunday, July 23, 2017 00:00 - CONCLUSION: Uncomplicated port removal as above. Reinier Castro MD Bone Biopsy CT 07/19/17 1521 Signed Impressions: Service Date/Time: Wednesday, July 19, 2017 15:58 - CONCLUSION: 1. Uncomplicated CT guided bone marrow aspirate. 2. Uncomplicated CT guided bone marrow biopsy. Malcolm Coker MD Chest X-Ray 07/17/17 0000 Signed Impressions: Service Date/Time: Monday, July 17, 2017 13:49 - CONCLUSION: Mild patchy peripheral lower lung zone opacity unchanged. Mild chronic cardiac silhouette enlargement. Logan Walton MD Neck CT 07/16/17 0000 Signed Impressions: Service Date/Time: Monday, July 17, 2017 16:22 - CONCLUSION: Stranding of fat in the submandibular anterior soft tissues extending into the deeper soft tissues anterior to the carotid arteries, worse on the left side. There is also some mild inflammatory changes around subcentimeter lymph nodes along the left carotid lymph node chain. Findings are most characteristic of a cellulitis with some early reactive changes in the left-sided cervical lymph nodes. Jacinto Tello MD Upper Extremity Ultrasound 07/11/17 0000 Signed Impressions: Service Date/Time: Tuesday, July 11, 2017 16:40 - CONCLUSION: Normal examination. Mt Vance MD Head CT 07/08/17 0000 Signed Impressions: Service Date/Time: July 19:55 - CONCLUSION: No acute disease. Malcolm Coker MD Physical Exam CONSTITUTIONAL/GENERAL: Awake and alert, NAD, looks very fatigued previous PORT site covered with dressing, intact SKIN: No jaundice, rashes, or lesions. Alopecia EYES: Pupils equal and round and reactive. Extraocular motions intact. No scleral icterus. No injection or drainage. Fundi not examined. HEENT: mucositis, tongue ulcer (very shallow) - still present on R side of the tongue tip . L submandubular mass nearly resolved, no tenderness CARDIOVASCULAR: Regular rate and rhythm without murmurs, gallops, or rubs. R parotid swelling resolved RESPIRATORY/CHEST: Clear to auscultation. Breath sounds equal bilaterally. No wheezes, rales, or rhonchi. GASTROINTESTINAL: Abdomen soft, non-tender, nondistended. GENITOURINARY: Without palpable bladder distension. MUSCULOSKELETAL: Extremities without clubbing, cyanosis, or edema. No calf tenderness NEUROLOGICAL: Lethargic, arousable Non focal PSYCHIATRIC: Cooperative Assessment & Plan Remarks Sepsis in an Immune compromised host. New fevers ? new infection. ? PORT - removed Kleb pneumo bacteremia, recurrent ? source (PORT?) This appears recurrent similar Kleb pneumo bacteremia in May 2017. 2 D echo negative from 06/30 US negative for thrombosys Sialoadenitis/Parotitis: nearly resolved clinically Cold sore ? HSV Possible line infection Severely immunocompromised, neutropenic. AML sp chemo Neutropenia, neutropenic fever - resolved on current abx - persistent absolute neutropenia C.diff - improved diarrhea R sided parotitis, Staph including MRSA is primary consideration Recs: cont meropenemV (for Kleb pneumo) complete PO difricid (for Cdiff) x 10 days Cont vancomycin IV cont oral acyclovir. consider PORT removal - especially if no chemo planned cont micafungin will cont merrem, vanco IV and micafungin untill count recovery of will adjust if + blood clx awaiting ANC recovery dw Brittney Shah MD Jul 23, 2017 19:04
[2017-07-23] MEDS: METOCLOPRAMIDE INJ 10 MG in SODIUM CHLORIDE 0.9% INJ 50 ML IV SCH (21:54)
[2017-07-23] MEDS: MICAFUNGIN INJ 150 MG in SODIUM CHLORIDE 0.9% INJ 100 ML IV SCH (23:45)
[2017-07-24] VITALS (11 sets, daily range): BP systolic 123–162; BP diastolic 78–97; PULSE 90–116; RESP 16–19; TEMP 98.3–101.7; O2SAT 93–95
[2017-07-24] MEDS: VANCOMYCIN INJ 1,750 MG in SODIUM CHLORID 0.9% 500 ML INJ 500 ML IV SCH ×3 (00:48→20:25)
[2017-07-24] MEDS: ACYCLOVIR 200 MG CAP PO SCH ×3 (03:25→17:35)
[2017-07-24] MEDS: MEROPENEM INJ 2,000 MG in SODIUM CHLORIDE 0.9% INJ 100 ML IV SCH ×3 (03:25→18:45)
[2017-07-24] MEDS: ACETAMINOPHEN 325 MG TAB PO PRN ×2 (06:21→20:24)
[2017-07-24] MEDS: ONDANSETRON HCL 4 MG/2 ML VIAL IV PUSH PRN ×2 (06:21→21:01)
[2017-07-24 06:32] LABS: HEMATOCRIT 27.4 % (35.0-46.0); HEMOGLOBIN 9.9 GM/DL (11.6-15.3); MEAN CELL VOLUME 78.2 FL (80.0-100.0); MEAN CORPUSCULAR HEMOGLOBIN 28.1 PG (27.0-34.0); MEAN PLATELET VOLUME 7.8 FL (7.0-11.0); RED BLOOD COUNT 3.51 MIL/MM3 (4.00-5.30)
[2017-07-24 06:40] LABS: PLATELET COUNT 14 TH/MM3 (150-450)
[2017-07-24 07:04] LABS: BICARBONATE 29.3 MEQ/L (21.0-32.0); CALCIUM 8.4 MG/DL (8.5-10.1); CREATININE 0.38 MG/DL (0.50-1.00); MAGNESIUM 2.1 MG/DL (1.5-2.5)
--- NOTE | 2017-07-24 08:55 | PD.ONC.PN ---
Subjective Subjective Remarks Tmax 101.7 overnight. Patient feeling hot/feverish this AM. Otherwise without complaints. Hoping her counts will recover soon. Objective Data Date Time Temp Pulse Resp B/P (MAP) Pulse Ox O2 Delivery O2 Flow Rate FiO2 07/24/17 07:00 116 07/24/17 06:10 101.7 07/24/17 04:00 93 07/24/17 03:28 98.3 16 130/79 (96) 07/24/17 00:00 94 07/24/17 00:00 101.0 91 16 123/78 (93) 95 07/23/17 21:30 99 Room Air 07/23/17 21:30 101 07/23/17 21:30 101.7 120 17 139/93 (108) 97 07/23/17 19:46 102 07/23/17 16:15 98.8 98 16 142/88 (106) 97 07/23/17 15:30 91 20 123/91 (102) 98 07/23/17 15:15 96 20 128/95 (106) 98 07/23/17 15:00 97.9 100 20 136/100 (112) 97 07/23/17 12:48 99.3 103 20 163/103 (123) 97 07/23/17 12:42 100 07/23/17 11:03 Room Air 07/23/17 11:03 84 07/24/17 07/24/17 07/24/17 07:00 15:00 23:00 Intake Total 1330 ml Output Total 900 ml Balance 430 ml Result Diagram: 07/24/17 0450 07/24/17 0450 Laboratory Results Laboratory Tests Test 07/24/17 04:50 White Blood Count 0.0 TH/MM3 Red Blood Count 3.51 MIL/MM3 Hemoglobin 9.9 GM/DL Hematocrit 27.4 % Mean Corpuscular Volume 78.2 FL Mean Corpuscular Hemoglobin 28.1 PG Mean Corpuscular Hemoglobin Concent 36.0 % Red Cell Distribution Width 14.0 % Platelet Count 14 TH/MM3 Mean Platelet Volume 7.8 FL CBC Comment AUTO DIFF Blood Urea Nitrogen 8 MG/DL Creatinine 0.38 MG/DL Random Glucose 112 MG/DL Calcium Level 8.4 MG/DL Magnesium Level 2.1 MG/DL Sodium Level 137 MEQ/L Potassium Level 3.3 MEQ/L Chloride Level 98 MEQ/L Carbon Dioxide Level 29.3 MEQ/L Anion Gap 10 MEQ/L Estimat Glomerular Filtration Rate 173 ML/MIN Culture Results Microbiology Date/Time Source Procedure Growth Status 07/24/17 06:00 Blood Line Aerobic Blood Culture Pending Received 07/24/17 06:00 Blood Line Anaerobic Blood Culture Pending Received 07/24/17 06:00 Blood Line Aerobic Blood Culture Pending Received 07/24/17 06:00 Blood Line Anaerobic Blood Culture Pending Received 07/22/17 23:00 Blood Peripheral Aerobic Blood Culture - Preliminary NO GROWTH IN 1 DAY Resulted 07/22/17 23:00 Blood Peripheral Anaerobic Blood Culture - Preliminary NO GROWTH IN 1 DAY Resulted 07/22/17 22:50 Blood Line Aerobic Blood Culture - Preliminary NO GROWTH IN 1 DAY Resulted 07/22/17 22:50 Blood Line Anaerobic Blood Culture - Preliminary NO GROWTH IN 1 DAY Resulted 07/23/17 14:30 Catheter Tip Central Venous Line Wound Culture Pending Received Administered Medications Medications (Trade) Dose Ordered Sig/Zeynep Route PRN Reason Start Time Stop Time Status Last Admin Dose Admin Carvedilol (Coreg) 3.125 mg DAILY PO 06/29/17 09:00 Future hold 07/23/17 09:18 Prednisone (Deltasone) 5 mg DAILY PO 06/29/17 09:00 07/23/17 09:18 Losartan Potassium (Cozaar) 100 mg DAILY PO 06/29/17 09:00 07/23/17 09:18 Al Hydrox/Mg Hydrox/Simethicone (Mag-Al Plus Susp Liq) 15 ml Q6H PRN PO INDIGESTION 06/28/17 20:45 07/05/17 13:52 Multi-Ingredient Mouthwash/Gargle (Magic Mouthwash Adult Liq) 5 ml QID SWISH-SWAL 06/29/17 13:00 07/23/17 12:51 Ondansetron HCl (Zofran Inj) 4 mg Q6HR PRN IV PUSH nausea 06/29/17 10:15 07/24/17 06:21 Diphenhydramine HCl (Benadryl) 25 mg Q6H PRN PO itching 06/30/17 10:45 07/22/17 16:03 Acetaminophen (Tylenol) 650 mg Q4H PRN PO fever>100.4, PREMED, orpain1-2 07/01/17 10:45 07/24/17 06:21 Melatonin (Melatonin) 5 mg HS PRN PO insomnia 07/02/17 21:00 07/23/17 21:48 Carboxymethylcellulose Sodium (Refresh Tears 0.5% Opth Soln) 1 drop Q6H PRN EACH EYE dry eyes 07/04/17 11:30 07/04/17 19:44 Prochlorperazine Edisylate (Compazine Inj) 10 mg Q8H PRN IV PUSH nausea 07/05/17 10:15 07/18/17 22:34 Albuterol/ Ipratropium (Duoneb Neb) 1 ampule Q6HR NEB PRN NEB SHORTNESS OF BREATH 07/06/17 18:00 07/07/17 20:44 Guaifenesin/ Codeine Phosphate (Robitussin Ac 200-20 Mg/10 ml Liq) 10 ml Q4H PRN PO cough 07/07/17 13:30 07/11/17 21:05 Amlodipine Besylate (Norvasc) 5 mg DAILY PO 07/08/17 19:00 07/23/17 09:18 Citalopram Hydrobromide (CeleXA) 20 mg DAILY PO 07/12/17 09:00 07/23/17 09:18 Acyclovir (Zovirax) 400 mg Q8H PO 07/12/17 02:00 07/24/17 03:25 Metoclopramide HCl 10 mg/Sodium Chloride 52 ml @ 104 mls/hr DAILY@2000 IV 07/14/17 20:00 07/23/17 21:54 Pantoprazole Sodium (Protonix) 40 mg DAILY PO 07/14/17 09:00 07/23/17 09:18 Magnesium Oxide (Mag-Ox) 400 mg BID PO 07/16/17 09:00 07/23/17 21:48 Fidaxomicin (Dificid) 200 mg BID PO 07/16/17 21:00 07/26/17 20:59 07/23/17 21:41 Vancomycin HCl 1750 mg/Sodium Chloride 517.5 ml @ 250 mls/hr Q12H IV 07/17/17 20:00 07/24/17 00:48 Meropenem 2000 mg/ Sodium Chloride 100 ml @ 200 mls/hr Q8H IV 07/18/17 11:00 07/24/17 03:25 Enalaprilat (Vasotec Inj) 1.25 mg Q8H PRN IV PUSH SBP>160, DBP>90 07/18/17 17:15 07/23/17 12:52 Potassium Chloride 40 meq/ Sodium Chloride 1,020 ml @ 42 mls/hr Q24H IV 07/19/17 19:20 07/22/17 20:43 Micafungin Sodium 150 mg/Sodium Chloride 100 ml @ 100 mls/hr Q24H IV 07/22/17 22:00 07/23/17 23:45 Filgrastim 480 mcg/Dextrose 51.6 ml @ 100 mls/hr DAILY@14 IV 07/23/17 14:00 07/23/17 16:08 Alprazolam (Xanax) 0.5 mg Q8HR PRN PO anxiety 07/23/17 11:00 07/23/17 21:49 Objective Remarks GENERAL: Pleasant female, supine in bed, diaphoretic, but otherwise in nad. SKIN: Warm and dry. no rash HEAD: Normocephalic. EYES: No injection or drainage. NECK: Supple, trachea midline. CARDIOVASCULAR: Regular rate and rhythm RESPIRATORY: Breath sounds equal bilaterally. No accessory muscle use. GASTROINTESTINAL: Abdomen soft, non-tender, nondistended. EXTREMITIES: No cyanosis. no edema. NEUROLOGICAL: awake, alert, normal speech. Assessment/Plan Assessment 57y/o female admitted for salvage chemotherapy with FLAG-AKASH for refractory acute myeloid leukemia. 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 awaiting bone marrow recovery. h/o Rheumatoid arthritis. Anxiety disorder. COPD. Depression. Hypercholesterolemia. Hypertension. Irregular heartbeat Plan 1. increase fluids to 84cc/hr. check potassium this afternoon 2. continue antibiotics 3. monitor blood cultures. 4. no transfusion today. Attending Statement The exam, history, and the medical decision-making described in the above note were completed with the assistance of the mid-level provider. I reviewed and agree with the findings presented. I attest that I had a [id number] encounter with the patient on the same day, and personally performed and documented my assessment and findings in the medical record. continues to have fevers but remains otherwise stable. antibiotics appropriate. she still has thrush. await return of counts. now day 21 following chemo and hopefully will see return in next week. Julianna Mcdaniel Jul 24, 2017 08:55 Jarocho Knight MD Jul 24, 2017 13:34
[2017-07-24] MEDS: SODIUM CHLORIDE 0.9% FLUSH 10 ML FLUSH IV FLUSH SCH (09:00)
[2017-07-24 09:27] LABS: LYMPHOCYTES 50 % (9-44); MONOCYTES 50 % (0-8)
[2017-07-24] MEDS: FIDAXOMICIN 200 MG TAB PO SCH ×2 (09:57→20:24)
[2017-07-24] MEDS: CARVEDILOL 3.125 MG TAB PO SCH (09:57)
[2017-07-24] MEDS: amLODIPine BESYLATE 5 MG TAB PO SCH (09:57)
[2017-07-24] MEDS: LOSARTAN 50 MG TAB PO SCH (09:57)
[2017-07-24] MEDS: CITALOPRAM HYDROBROMIDE 20 MG TAB PO SCH (09:57)
[2017-07-24] MEDS: MAGNESIUM OXIDE 400 MG TAB PO SCH ×2 (09:58→20:25)
[2017-07-24] MEDS: predniSONE 5 MG TAB PO SCH (09:58)
[2017-07-24] MEDS: PANTOPRAZOLE SOD 40 MG DELAYED RELEASE TAB PO SCH (09:58)
[2017-07-24] MEDS: NYSTAT/DIPHENHY/LIDO MOUTHWASH (Adult) 120ML SWISH-SWAL SCH ×4 (10:03→20:25)
[2017-07-24] MEDS: FILGRASTIM INJ 480 MCG in DEXTROSE 5% IN WATER INJ 50 ML IV SCH ×2 (13:37)
--- NOTE | 2017-07-24 15:33 | HHI.IDPN ---
Subjective Subjective Remarks feels somewhat bettre cont to have fever up to 101.7 ax she denioes abdominal pain and has no diarrhea Antibiotics micafungin meropenem acyclovir vanco iv dificid Lines Line sites with no e.o infection Port site ok. Past Medical History Past h/o Kleb pneumo bacteremia in May 2017. Allergies: Coded Allergies: cefepime (Verified Allergy, Severe, HIVES, 06/25/17) latex (Unverified Allergy, Severe, Rash, 06/25/17) Sulfa (Sulfonamide Antibiotics) (Unverified Adverse Reaction, Severe, Vomiting, cramps, 06/25/17) Objective . Vital Signs Date Time Temp Pulse Resp B/P (MAP) Pulse Ox O2 Delivery O2 Flow Rate FiO2 07/24/17 12:56 100.2 92 19 143/90 (107) 95 07/24/17 11:00 90 07/24/17 10:13 95 Room Air 07/24/17 09:47 98.4 95 18 144/96 (112) 95 07/24/17 07:00 116 07/24/17 06:10 101.7 07/24/17 04:00 93 07/24/17 03:28 98.3 16 130/79 (96) 07/24/17 00:00 94 07/24/17 00:00 101.0 91 16 123/78 (93) 95 07/23/17 21:30 99 Room Air 07/23/17 21:30 101 07/23/17 21:30 101.7 120 17 139/93 (108) 97 07/23/17 19:46 102 07/23/17 16:15 98.8 98 16 142/88 (106) 97 07/23/17 15:30 91 20 123/91 (102) 98 . Laboratory Tests Test 07/23/17 04:40 07/24/17 04:50 White Blood Count 0.0 TH/MM3 0.0 TH/MM3 Red Blood Count 3.74 MIL/MM3 3.51 MIL/MM3 Hemoglobin 10.6 GM/DL 9.9 GM/DL Hematocrit 29.3 % 27.4 % Mean Corpuscular Volume 78.3 FL 78.2 FL Mean Corpuscular Hemoglobin 28.4 PG 28.1 PG Mean Corpuscular Hemoglobin Concent 36.2 % 36.0 % Red Cell Distribution Width 14.1 % 14.0 % Platelet Count 29 TH/MM3 14 TH/MM3 Mean Platelet Volume 7.6 FL 7.8 FL CBC Comment AUTO DIFF AUTO DIFF Differential Total Cells Counted 1 2 Lymphocytes % 100 % 50 % Neutrophils # (Manual) 0.0 TH/MM3 0.0 TH/MM3 Differential Comment FINAL DIFF MANUAL FINAL DIFF MANUAL Platelet Estimate RARE RARE Platelet Morphology Comment NORMAL NORMAL Monocytes % 50 % Laboratory Tests Test 07/23/17 04:40 07/24/17 04:50 Blood Urea Nitrogen 8 MG/DL 8 MG/DL Creatinine 0.49 MG/DL 0.38 MG/DL Random Glucose 113 MG/DL 112 MG/DL Total Protein 7.3 GM/DL Albumin 2.6 GM/DL Calcium Level 9.4 MG/DL 8.4 MG/DL Alkaline Phosphatase 95 U/L Aspartate Amino Transf (AST/SGOT) 32 U/L Alanine Aminotransferase (ALT/SGPT) 19 U/L Total Bilirubin 1.3 MG/DL Sodium Level 136 MEQ/L 137 MEQ/L Potassium Level 3.5 MEQ/L 3.3 MEQ/L Chloride Level 96 MEQ/L 98 MEQ/L Carbon Dioxide Level 28.6 MEQ/L 29.3 MEQ/L Anion Gap 11 MEQ/L 10 MEQ/L Estimat Glomerular Filtration Rate 129 ML/MIN 173 ML/MIN Magnesium Level 2.1 MG/DL Microbiology Date/Time Source Procedure Growth Status 07/24/17 06:00 Blood Line Aerobic Blood Culture Pending Received 07/24/17 06:00 Blood Line Anaerobic Blood Culture Pending Received 07/24/17 06:00 Blood Line Aerobic Blood Culture Pending Received 07/24/17 06:00 Blood Line Anaerobic Blood Culture Pending Received 07/22/17 23:00 Blood Peripheral Aerobic Blood Culture - Preliminary NO GROWTH IN 2 DAYS Resulted 07/22/17 23:00 Blood Peripheral Anaerobic Blood Culture - Preliminary NO GROWTH IN 2 DAYS Resulted 07/22/17 22:50 Blood Line Aerobic Blood Culture - Preliminary NO GROWTH IN 2 DAYS Resulted 07/22/17 22:50 Blood Line Anaerobic Blood Culture - Preliminary NO GROWTH IN 2 DAYS Resulted 07/23/17 14:30 Catheter Tip Central Venous Line Wound Culture - Preliminary NO GROWTH IN 24 HOURS. Resulted Imaging Last Impressions Port Line Revision 07/23/17 0000 Signed Impressions: Service Date/Time: Sunday, July 23, 2017 00:00 - CONCLUSION: Uncomplicated port removal as above. Reinier Castro MD Bone Biopsy CT 07/19/17 1521 Signed Impressions: Service Date/Time: Wednesday, July 19, 2017 15:58 - CONCLUSION: 1. Uncomplicated CT guided bone marrow aspirate. 2. Uncomplicated CT guided bone marrow biopsy. Malcolm Coker MD Chest X-Ray 07/17/17 0000 Signed Impressions: Service Date/Time: Monday, July 17, 2017 13:49 - CONCLUSION: Mild patchy peripheral lower lung zone opacity unchanged. Mild chronic cardiac silhouette enlargement. Logan Walton MD Neck CT 07/16/17 0000 Signed Impressions: Service Date/Time: Monday, July 17, 2017 16:22 - CONCLUSION: Stranding of fat in the submandibular anterior soft tissues extending into the deeper soft tissues anterior to the carotid arteries, worse on the left side. There is also some mild inflammatory changes around subcentimeter lymph nodes along the left carotid lymph node chain. Findings are most characteristic of a cellulitis with some early reactive changes in the left-sided cervical lymph nodes. Jacinto Tello MD Upper Extremity Ultrasound 07/11/17 0000 Signed Impressions: Service Date/Time: Tuesday, July 11, 2017 16:40 - CONCLUSION: Normal examination. Mt Vance MD Head CT 07/08/17 0000 Signed Impressions: Service Date/Time: July 19:55 - CONCLUSION: No acute disease. Malcolm Coker MD Physical Exam CONSTITUTIONAL/GENERAL: Awake and alert, NAD, looks very fatigued previous PORT site covered with dressing, intact SKIN: No jaundice, rashes, or lesions. Alopecia EYES: Pupils equal and round and reactive. Extraocular motions intact. No scleral icterus. No injection or drainage. Fundi not examined. HEENT: mucositis, tongue ulcer (very shallow) - still present on R side of the tongue tip . L submandubular mass nearly resolved, no tenderness CARDIOVASCULAR: Regular rate and rhythm without murmurs, gallops, or rubs. R parotid swelling resolved RESPIRATORY/CHEST: Clear to auscultation. Breath sounds equal bilaterally. No wheezes, rales, or rhonchi. GASTROINTESTINAL: Abdomen soft, non-tender, nondistended. GENITOURINARY: Without palpable bladder distension. MUSCULOSKELETAL: Extremities without clubbing, cyanosis, 1+ BLE edema. No calf tenderness NEUROLOGICAL: awake and alert Non focal PSYCHIATRIC: Calm. Assessment & Plan Remarks Sepsis in an Immune compromised host. New fevers ? new infection. ? PORT - removed Kleb pneumo bacteremia, recurrent ? source (PORT?) This appears recurrent similar Kleb pneumo bacteremia in May 2017. 2 D echo negative from 06/30 US negative for thrombosys Sialoadenitis/Parotitis: nearly resolved clinically Cold sore ? HSV Possible line infection Severely immunocompromised, neutropenic. AML sp chemo Neutropenia, neutropenic fever - resolved on current abx - persistent absolute neutropenia C.diff - improved diarrhea R sided parotitis, Staph including MRSA is primary consideration: clinically appears to resolvesd Recs: cont meropenemV (for Kleb pneumo) complete PO difricid (for Cdiff) x 10 days Cont vancomycin IV cont oral acyclovir. consider PORT removal - especially if no chemo planned cont micafungin will cont merrem, vanco IV and micafungin untill count recovery of will adjust if + blood clx awaiting ANC recovery Brittney Anderson MD Jul 24, 2017 15:33
[2017-07-24] MEDS: POTASSIUM CHLORIDE INJ 40 MEQ in SODIUM CHLOR 0.9% 1000 ML INJ 1,000 ML IV SCH (20:27)
[2017-07-24] MEDS ORDERED: OLANZapine 5 MG TAB PO SCH (20:55)
[2017-07-24] MEDS ORDERED: LORazepam 2 MG/ML VIAL IV SCH (20:55)
[2017-07-24] MEDS: METOCLOPRAMIDE INJ 10 MG in SODIUM CHLORIDE 0.9% INJ 50 ML IV SCH (21:02)
[2017-07-24] MEDS ORDERED: NS + KCL 40 MEQ INJ 1,000 ML IV SCH (23:00)
[2017-07-25] VITALS (18 sets, daily range): BP systolic 115–172; BP diastolic 72–103; PULSE 86–113; RESP 18; TEMP 97.9–101.4; O2SAT 93–96
[2017-07-25] MEDS: MICAFUNGIN INJ 150 MG in SODIUM CHLORIDE 0.9% INJ 100 ML IV SCH (00:54)
[2017-07-25] MEDS: ACYCLOVIR 200 MG CAP PO SCH ×3 (02:14→17:40)
[2017-07-25] MEDS: MEROPENEM INJ 2,000 MG in SODIUM CHLORIDE 0.9% INJ 100 ML IV SCH ×3 (03:58→19:54)
[2017-07-25] MEDS: ACETAMINOPHEN 325 MG TAB PO PRN ×3 (04:01→17:52)
[2017-07-25 06:10] LABS: BICARBONATE 25.9 MEQ/L (21.0-32.0); CREATININE 0.38 MG/DL (0.50-1.00)
[2017-07-25 06:13] LABS: HEMATOCRIT 25.9 % (35.0-46.0); HEMOGLOBIN 9.5 GM/DL (11.6-15.3); MEAN CELL VOLUME 77.4 FL (80.0-100.0); MEAN CORPUSCULAR HEMOGLOBIN 28.5 PG (27.0-34.0); RED BLOOD COUNT 3.35 MIL/MM3 (4.00-5.30); RED CELL DISTRIBUTION WIDTH 13.6 % (11.6-17.2); WHITE BLOOD COUNT 0.1 TH/MM3 (4.0-11.0)
[2017-07-25 06:16] LABS: MEAN CORPUSCULAR HGB CONC 36.8 % (32.0-36.0)
[2017-07-25 06:18] LABS: MEAN PLATELET VOLUME 8.7 FL (7.0-11.0); PLATELET COUNT 14 TH/MM3 (150-450)
[2017-07-25] MEDS ORDERED: PHARMACY ORDERED LAB ONE (07:45)
[2017-07-25 07:48] LABS: LYMPHOCYTES 100 % (9-44)
[2017-07-25] MEDS ORDERED: POTASSIUM CHLORIDE 20 MEQ CONTROLLED RELEASE TAB PO ONE (09:00)
[2017-07-25] MEDS: VANCOMYCIN INJ 1,750 MG in SODIUM CHLORID 0.9% 500 ML INJ 500 ML IV SCH ×2 (09:10→21:06)
[2017-07-25] MEDS: amLODIPine BESYLATE 5 MG TAB PO SCH (09:11)
[2017-07-25] MEDS: predniSONE 5 MG TAB PO SCH (09:11)
[2017-07-25] MEDS: CITALOPRAM HYDROBROMIDE 20 MG TAB PO SCH (09:11)
[2017-07-25] MEDS: FIDAXOMICIN 200 MG TAB PO SCH ×2 (09:11→21:05)
[2017-07-25] MEDS: MAGNESIUM OXIDE 400 MG TAB PO SCH ×2 (09:11→21:05)
[2017-07-25] MEDS: LOSARTAN 50 MG TAB PO SCH (09:11)
[2017-07-25] MEDS: PANTOPRAZOLE SOD 40 MG DELAYED RELEASE TAB PO SCH (09:11)
[2017-07-25] MEDS: CARVEDILOL 3.125 MG TAB PO SCH (09:11)
[2017-07-25] MEDS: NYSTAT/DIPHENHY/LIDO MOUTHWASH (Adult) 120ML SWISH-SWAL SCH ×4 (09:12→21:00)
[2017-07-25] MEDS: SODIUM CHLORIDE 0.9% FLUSH 10 ML FLUSH IV FLUSH SCH (09:12)
--- NOTE | 2017-07-25 10:19 | PD.ONC.PN ---
Subjective Subjective Remarks Tmax 101.6 overnight. Patient fatigued but in better spirits today. she would like to go outside today. Eating very little d/t poor appetite. Objective Data Date Time Temp Pulse Resp B/P (MAP) Pulse Ox O2 Delivery O2 Flow Rate FiO2 07/25/17 08:16 96 07/25/17 08:00 100.9 113 18 163/103 (123) 94 07/25/17 04:16 99.4 112 172/87 (115) 93 07/25/17 00:10 87 07/25/17 00:00 98.1 87 18 115/72 (86) 93 07/24/17 20:22 101.6 105 18 139/89 (106) 93 07/24/17 20:11 96 07/24/17 16:04 99.3 104 18 162/97 (118) 94 07/24/17 12:56 100.2 92 19 143/90 (107) 95 07/24/17 11:00 90 07/25/17 07/25/17 07/25/17 07:00 15:00 23:00 Intake Total 240 ml Output Total 1750 ml Balance -1510 ml Result Diagram: 07/25/17 0400 07/25/17 0400 Laboratory Results Laboratory Tests Test 07/24/17 17:00 07/25/17 04:00 07/25/17 08:10 Potassium Level 3.5 MEQ/L 3.3 MEQ/L White Blood Count 0.1 TH/MM3 Red Blood Count 3.35 MIL/MM3 Hemoglobin 9.5 GM/DL Hematocrit 25.9 % Mean Corpuscular Volume 77.4 FL Mean Corpuscular Hemoglobin 28.5 PG Mean Corpuscular Hemoglobin Concent 36.8 % Red Cell Distribution Width 13.6 % Platelet Count 14 TH/MM3 Mean Platelet Volume 8.7 FL CBC Comment AUTO DIFF Differential Total Cells Counted 1 Lymphocytes % 100 % Neutrophils # (Manual) 0.0 TH/MM3 Differential Comment FINAL DIFF MANUAL Platelet Estimate RARE Platelet Morphology Comment NORMAL Blood Urea Nitrogen 6 MG/DL Creatinine 0.38 MG/DL Random Glucose 107 MG/DL Calcium Level 9.0 MG/DL Magnesium Level 2.0 MG/DL Sodium Level 136 MEQ/L Chloride Level 98 MEQ/L Carbon Dioxide Level 25.9 MEQ/L Anion Gap 12 MEQ/L Estimat Glomerular Filtration Rate 173 ML/MIN Vancomycin Level Trough 14.9 MCG/ML Culture Results Microbiology Date/Time Source Procedure Growth Status 07/24/17 06:00 Blood Line Aerobic Blood Culture Pending Received 07/24/17 06:00 Blood Line Anaerobic Blood Culture Pending Received 07/24/17 06:00 Blood Line Aerobic Blood Culture Pending Received 07/24/17 06:00 Blood Line Anaerobic Blood Culture Pending Received 07/22/17 23:00 Blood Peripheral Aerobic Blood Culture - Preliminary NO GROWTH IN 2 DAYS Resulted 07/22/17 23:00 Blood Peripheral Anaerobic Blood Culture - Preliminary NO GROWTH IN 2 DAYS Resulted 07/22/17 22:50 Blood Line Aerobic Blood Culture - Preliminary NO GROWTH IN 2 DAYS Resulted 07/22/17 22:50 Blood Line Anaerobic Blood Culture - Preliminary NO GROWTH IN 2 DAYS Resulted 07/23/17 14:30 Catheter Tip Central Venous Line Wound Culture - Preliminary NO GROWTH IN 48 HOURS. Resulted Administered Medications Medications (Trade) Dose Ordered Sig/Zeynep Route PRN Reason Start Time Stop Time Status Last Admin Dose Admin Carvedilol (Coreg) 3.125 mg DAILY PO 06/29/17 09:00 Future hold 07/25/17 09:11 Prednisone (Deltasone) 5 mg DAILY PO 06/29/17 09:00 07/25/17 09:11 Losartan Potassium (Cozaar) 100 mg DAILY PO 06/29/17 09:00 07/25/17 09:11 Al Hydrox/Mg Hydrox/Simethicone (Mag-Al Plus Susp Liq) 15 ml Q6H PRN PO INDIGESTION 06/28/17 20:45 07/05/17 13:52 Multi-Ingredient Mouthwash/Gargle (Magic Mouthwash Adult Liq) 5 ml QID SWISH-SWAL 06/29/17 13:00 07/25/17 09:12 Ondansetron HCl (Zofran Inj) 4 mg Q6HR PRN IV PUSH nausea 06/29/17 10:15 07/24/17 21:01 Diphenhydramine HCl (Benadryl) 25 mg Q6H PRN PO itching 06/30/17 10:45 07/22/17 16:03 Acetaminophen (Tylenol) 650 mg Q4H PRN PO fever>100.4, PREMED, orpain1-2 07/01/17 10:45 07/25/17 09:11 Melatonin (Melatonin) 5 mg HS PRN PO insomnia 07/02/17 21:00 07/23/17 21:48 Carboxymethylcellulose Sodium (Refresh Tears 0.5% Opth Soln) 1 drop Q6H PRN EACH EYE dry eyes 07/04/17 11:30 07/04/17 19:44 Prochlorperazine Edisylate (Compazine Inj) 10 mg Q8H PRN IV PUSH nausea 07/05/17 10:15 07/18/17 22:34 Albuterol/ Ipratropium (Duoneb Neb) 1 ampule Q6HR NEB PRN NEB SHORTNESS OF BREATH 07/06/17 18:00 07/07/17 20:44 Guaifenesin/ Codeine Phosphate (Robitussin Ac 200-20 Mg/10 ml Liq) 10 ml Q4H PRN PO cough 07/07/17 13:30 07/11/17 21:05 Amlodipine Besylate (Norvasc) 5 mg DAILY PO 07/08/17 19:00 07/25/17 09:11 Citalopram Hydrobromide (CeleXA) 20 mg DAILY PO 07/12/17 09:00 07/25/17 09:11 Acyclovir (Zovirax) 400 mg Q8H PO 07/12/17 02:00 07/25/17 02:14 Metoclopramide HCl 10 mg/Sodium Chloride 52 ml @ 104 mls/hr DAILY@2000 IV 07/14/17 20:00 07/24/17 21:02 Pantoprazole Sodium (Protonix) 40 mg DAILY PO 07/14/17 09:00 07/25/17 09:11 Magnesium Oxide (Mag-Ox) 400 mg BID PO 07/16/17 09:00 07/25/17 09:11 Fidaxomicin (Dificid) 200 mg BID PO 07/16/17 21:00 07/26/17 20:59 07/25/17 09:11 Vancomycin HCl 1750 mg/Sodium Chloride 517.5 ml @ 250 mls/hr Q12H IV 07/17/17 20:00 07/25/17 09:10 Meropenem 2000 mg/ Sodium Chloride 100 ml @ 200 mls/hr Q8H IV 07/18/17 11:00 07/25/17 03:58 Enalaprilat (Vasotec Inj) 1.25 mg Q8H PRN IV PUSH SBP>160, DBP>90 07/18/17 17:15 07/23/17 12:52 Micafungin Sodium 150 mg/Sodium Chloride 100 ml @ 100 mls/hr Q24H IV 07/22/17 22:00 07/25/17 00:54 Filgrastim 480 mcg/Dextrose 51.6 ml @ 100 mls/hr DAILY@14 IV 07/23/17 14:00 07/24/17 13:37 Alprazolam (Xanax) 0.5 mg Q8HR PRN PO anxiety 07/23/17 11:00 07/23/17 21:49 Sodium Chloride (NS Flush) See Protocol DAILY IV FLUSH 07/24/17 09:00 07/25/17 09:12 Objective Remarks GENERAL: Pleasant female, lying in bed in nad. SKIN: Warm and dry. HEAD: Normocephalic. EYES: No injection or drainage. NECK: Supple, trachea midline. CARDIOVASCULAR: Regular rate and rhythm RESPIRATORY: Breath sounds equal bilaterally. No accessory muscle use. GASTROINTESTINAL: Abdomen soft, non-tender, nondistended. EXTREMITIES: No cyanosis. no edema. NEUROLOGICAL: awake, alert, normal speech. moving extremities. Assessment/Plan Assessment 57y/o female admitted for salvage chemotherapy with FLAG-AKASH for refractory acute myeloid leukemia. 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 awaiting bone marrow recovery. h/o Rheumatoid arthritis. Anxiety disorder. COPD. Depression. Hypercholesterolemia. Hypertension. Irregular heartbeat Plan 1. continue antibiotics. monitor blood cultures. 2. no transfusion today 3. give oral potassium in addition to IV Attending Statement The exam, history, and the medical decision-making described in the above note were completed with the assistance of the mid-level provider. I reviewed and agree with the findings presented. I attest that I had a [id number] encounter with the patient on the same day, and personally performed and documented my assessment and findings in the medical record. exam is unchanged and no new complaints. At this point little else to do except wait for recovery of counts. no need for transfusion of blood or platelets today. Julianna Mcdaniel Jul 25, 2017 10:19 Jarocho Knight MD Jul 25, 2017 13:45
--- NOTE | 2017-07-25 10:42 | HHI.IDPN ---
Note Infectious Disease Note ID coverage. For Dr. Odell. Notes reviewed. Patient feeling ill. Having fevers. Notes that she had dry heaves last night. No vomiting Denies shortness of breath. Denies chills. Denies abdominal pain. Denies headache. Notes that stools are becoming more solid. [id number] line culture has no growth. Antibiotics micafungin meropenem acyclovir vanco iv dificid Lines Port site ok. Past Medical History Past h/o Kleb pneumo bacteremia in May 2017. Allergies: Coded Allergies: cefepime (Verified Allergy, Severe, HIVES, 06/25/17) latex (Unverified Allergy, Severe, Rash, 06/25/17) Sulfa (Sulfonamide Antibiotics) (Unverified Adverse Reaction, Severe, Vomiting, cramps, 06/25/17) Current Medications Medications (Trade) Dose Ordered Sig/Zeynep Route PRN Reason Start Time Stop Time Status Last Admin Dose Admin Carvedilol (Coreg) 3.125 mg DAILY PO 06/29/17 09:00 Future hold 07/25/17 09:11 Prednisone (Deltasone) 5 mg DAILY PO 06/29/17 09:00 07/25/17 09:11 Losartan Potassium (Cozaar) 100 mg DAILY PO 06/29/17 09:00 07/25/17 09:11 Al Hydrox/Mg Hydrox/Simethicone (Mag-Al Plus Susp Liq) 15 ml Q6H PRN PO INDIGESTION 06/28/17 20:45 07/05/17 13:52 Sodium Chloride 250 ml @ 0 mls/hr UNSCH IV 06/29/17 15:00 Multi-Ingredient Mouthwash/Gargle (Magic Mouthwash Adult Liq) 5 ml QID SWISH-SWAL 06/29/17 13:00 07/25/17 09:12 Ondansetron HCl (Zofran Inj) 4 mg Q6HR PRN IV PUSH nausea 06/29/17 10:15 07/24/17 21:01 Diphenhydramine HCl (Benadryl) 25 mg Q6H PRN PO itching 06/30/17 10:45 07/22/17 16:03 Acetaminophen (Tylenol) 650 mg Q4H PRN PO fever>100.4, PREMED, orpain1-2 07/01/17 10:45 07/25/17 09:11 Melatonin (Melatonin) 5 mg HS PRN PO insomnia 07/02/17 21:00 07/23/17 21:48 Carboxymethylcellulose Sodium (Refresh Tears 0.5% Opth Soln) 1 drop Q6H PRN EACH EYE dry eyes 07/04/17 11:30 07/04/17 19:44 Prochlorperazine Edisylate (Compazine Inj) 10 mg Q8H PRN IV PUSH nausea 07/05/17 10:15 07/18/17 22:34 Albuterol/ Ipratropium (Duoneb Neb) 1 ampule Q6HR NEB PRN NEB SHORTNESS OF BREATH 07/06/17 18:00 07/07/17 20:44 Guaifenesin/ Codeine Phosphate (Robitussin Ac 200-20 Mg/10 ml Liq) 10 ml Q4H PRN PO cough 07/07/17 13:30 07/11/17 21:05 Amlodipine Besylate (Norvasc) 5 mg DAILY PO 07/08/17 19:00 07/25/17 09:11 Citalopram Hydrobromide (CeleXA) 20 mg DAILY PO 07/12/17 09:00 07/25/17 09:11 Acyclovir (Zovirax) 400 mg Q8H PO 07/12/17 02:00 07/25/17 02:14 Pharmacy Profile Note 0 ml @ 0 mls/hr UNSCH OTHER 07/12/17 17:45 Metoclopramide HCl 10 mg/Sodium Chloride 52 ml @ 104 mls/hr DAILY@2000 IV 07/14/17 20:00 07/24/17 21:02 Pantoprazole Sodium (Protonix) 40 mg DAILY PO 07/14/17 09:00 07/25/17 09:11 Magnesium Oxide (Mag-Ox) 400 mg BID PO 07/16/17 09:00 07/25/17 09:11 Fidaxomicin (Dificid) 200 mg BID PO 07/16/17 21:00 07/26/17 20:59 07/25/17 09:11 Vancomycin HCl 1750 mg/Sodium Chloride 517.5 ml @ 250 mls/hr Q12H IV 07/17/17 20:00 07/25/17 09:10 Acetaminophen (Tylenol) 650 mg Q4H PRN PO SEE LABEL COMMENTS 07/18/17 07:30 Meropenem 2000 mg/ Sodium Chloride 100 ml @ 200 mls/hr Q8H IV 07/18/17 11:00 07/25/17 03:58 Enalaprilat (Vasotec Inj) 1.25 mg Q8H PRN IV PUSH SBP>160, DBP>90 07/18/17 17:15 07/23/17 12:52 Micafungin Sodium 150 mg/Sodium Chloride 100 ml @ 100 mls/hr Q24H IV 07/22/17 22:00 07/25/17 00:54 Filgrastim 480 mcg/Dextrose 51.6 ml @ 100 mls/hr DAILY@14 IV 07/23/17 14:00 07/24/17 13:37 Alprazolam (Xanax) 0.5 mg Q8HR PRN PO anxiety 07/23/17 11:00 07/23/17 21:49 Sodium Chloride (NS Flush) See Protocol DAILY IV FLUSH 07/24/17 09:00 07/25/17 09:12 Sodium Chloride (NS Flush) See Protocol UNSCH PRN IV FLUSH SEE PROTOCOL TABLE 07/23/17 19:00 Heparin Sodium (Porcine) (Heparin Central Flush) See Protocol DAILY IV FLUSH 07/24/17 09:00 Heparin Sodium (Porcine) (Heparin Central Flush) See Protocol UNSCH PRN IV FLUSH SEE PROTOCOL TABLE 07/23/17 19:00 Sodium Chloride (NS Flush) UNSCH PRN IV FLUSH SEE PROTOCOL TABLE 07/23/17 19:00 Potassium Chloride/Sodium Chloride 1,000 ml @ 83 mls/hr Q12H3M IV 07/25/17 08:00 Objective . Vital Signs Date Time Temp Pulse Resp B/P (MAP) Pulse Ox O2 Delivery O2 Flow Rate FiO2 07/25/17 08:16 96 07/25/17 08:00 100.9 113 18 163/103 (123) 94 07/25/17 04:16 99.4 112 172/87 (115) 93 07/25/17 00:10 87 07/25/17 00:00 98.1 87 18 115/72 (86) 93 07/24/17 20:22 101.6 105 18 139/89 (106) 93 07/24/17 20:11 96 07/24/17 16:04 99.3 104 18 162/97 (118) 94 07/24/17 12:56 100.2 92 19 143/90 (107) 95 07/24/17 11:00 90 Laboratory Tests Test 07/24/17 04:50 07/25/17 04:00 White Blood Count 0.0 TH/MM3 0.1 TH/MM3 Red Blood Count 3.51 MIL/MM3 3.35 MIL/MM3 Hemoglobin 9.9 GM/DL 9.5 GM/DL Hematocrit 27.4 % 25.9 % Mean Corpuscular Volume 78.2 FL 77.4 FL Mean Corpuscular Hemoglobin 28.1 PG 28.5 PG Mean Corpuscular Hemoglobin Concent 36.0 % 36.8 % Red Cell Distribution Width 14.0 % 13.6 % Platelet Count 14 TH/MM3 14 TH/MM3 Mean Platelet Volume 7.8 FL 8.7 FL CBC Comment AUTO DIFF AUTO DIFF Differential Total Cells Counted 2 1 Lymphocytes % 50 % 100 % Monocytes % 50 % Neutrophils # (Manual) 0.0 TH/MM3 0.0 TH/MM3 Differential Comment FINAL DIFF MANUAL FINAL DIFF MANUAL Platelet Estimate RARE RARE Platelet Morphology Comment NORMAL NORMAL Laboratory Tests Test 07/24/17 04:50 07/24/17 17:00 07/25/17 04:00 Blood Urea Nitrogen 8 MG/DL 6 MG/DL Creatinine 0.38 MG/DL 0.38 MG/DL Random Glucose 112 MG/DL 107 MG/DL Calcium Level 8.4 MG/DL 9.0 MG/DL Magnesium Level 2.1 MG/DL 2.0 MG/DL Sodium Level 137 MEQ/L 136 MEQ/L Potassium Level 3.3 MEQ/L 3.5 MEQ/L 3.3 MEQ/L Chloride Level 98 MEQ/L 98 MEQ/L Carbon Dioxide Level 29.3 MEQ/L 25.9 MEQ/L Anion Gap 10 MEQ/L 12 MEQ/L Estimat Glomerular Filtration Rate 173 ML/MIN 173 ML/MIN Microbiology Date/Time Source Procedure Growth Status 07/24/17 06:00 Blood Line Aerobic Blood Culture Pending Received 07/24/17 06:00 Blood Line Anaerobic Blood Culture Pending Received 07/24/17 06:00 Blood Line Aerobic Blood Culture Pending Received 07/24/17 06:00 Blood Line Anaerobic Blood Culture Pending Received 07/22/17 23:00 Blood Peripheral Aerobic Blood Culture - Preliminary NO GROWTH IN 2 DAYS Resulted 07/22/17 23:00 Blood Peripheral Anaerobic Blood Culture - Preliminary NO GROWTH IN 2 DAYS Resulted 07/22/17 22:50 Blood Line Aerobic Blood Culture - Preliminary NO GROWTH IN 2 DAYS Resulted 07/22/17 22:50 Blood Line Anaerobic Blood Culture - Preliminary NO GROWTH IN 2 DAYS Resulted 07/23/17 14:30 Catheter Tip Central Venous Line Wound Culture - Preliminary NO GROWTH IN 48 HOURS. Resulted Microbiology Date/Time Source Procedure Growth Status 07/24/17 06:00 Blood Line Aerobic Blood Culture Pending Received 07/24/17 06:00 Blood Line Anaerobic Blood Culture Pending Received 07/24/17 06:00 Blood Line Aerobic Blood Culture Pending Received 07/24/17 06:00 Blood Line Anaerobic Blood Culture Pending Received 07/22/17 23:00 Blood Peripheral Aerobic Blood Culture - Preliminary NO GROWTH IN 2 DAYS Resulted 07/22/17 23:00 Blood Peripheral Anaerobic Blood Culture - Preliminary NO GROWTH IN 2 DAYS Resulted 07/22/17 22:50 Blood Line Aerobic Blood Culture - Preliminary NO GROWTH IN 2 DAYS Resulted 07/22/17 22:50 Blood Line Anaerobic Blood Culture - Preliminary NO GROWTH IN 2 DAYS Resulted 07/23/17 14:30 Catheter Tip Central Venous Line Wound Culture - Preliminary NO GROWTH IN 24 HOURS. Resulted Imaging Last Impressions Port Line Revision 07/23/17 0000 Signed Impressions: Service Date/Time: Sunday, July 23, 2017 00:00 - CONCLUSION: Uncomplicated port removal as above. Reinier Castro MD Bone Biopsy CT 07/19/17 1521 Signed Impressions: Service Date/Time: Wednesday, July 19, 2017 15:58 - CONCLUSION: 1. Uncomplicated CT guided bone marrow aspirate. 2. Uncomplicated CT guided bone marrow biopsy. Malcolm Coker MD Chest X-Ray 07/17/17 0000 Signed Impressions: Service Date/Time: Monday, July 17, 2017 13:49 - CONCLUSION: Mild patchy peripheral lower lung zone opacity unchanged. Mild chronic cardiac silhouette enlargement. Logan Walton MD Neck CT 07/16/17 0000 Signed Impressions: Service Date/Time: Monday, July 17, 2017 16:22 - CONCLUSION: Stranding of fat in the submandibular anterior soft tissues extending into the deeper soft tissues anterior to the carotid arteries, worse on the left side. There is also some mild inflammatory changes around subcentimeter lymph nodes along the left carotid lymph node chain. Findings are most characteristic of a cellulitis with some early reactive changes in the left-sided cervical lymph nodes. Jacinto Tello MD Upper Extremity Ultrasound 07/11/17 0000 Signed Impressions: Service Date/Time: Tuesday, July 11, 2017 16:40 - CONCLUSION: Normal examination. Mt Vance MD Head CT 07/08/17 0000 Signed Impressions: Service Date/Time: July 19:55 - CONCLUSION: No acute disease. Malcolm Coker MD Physical Exam GENERAL: Alert and oriented, Fatigued. HEENT: Head atraumatic. Pupils reactive to light. Extraocular movements intact. No icterus. Positive oral thrush. NECK: Supple without adenopathy. Swelling of the left submandibular. LUNGS: Clear to auscultation. HEART: Regular rate and rhythm without murmurs rubs or gallops. ABDOMEN: Bowel sounds present, soft, no tenderness. EXTREMITIES: No clubbing cyanosis or edema. SKIN: No rash. Skin is warm. NEUROLOGIC: No gross focal finding. PSYCH: Calm and cooperative. Right upper extremity PICC without evidence of infection. Assessment & Plan Remarks Sepsis in an Immune compromised host. Persistent neutropenia and fever. New fevers ? new infection. PORT - removed 2 days ago. Kleb pneumo bacteremia, recurrent ? source (PORT) This appears recurrent similar Kleb pneumo bacteremia in May 2017. 2 D echo negative from 06/30 US negative for thrombosys Sialoadenitis/Parotitis: nearly resolved clinically Cold sore ? HSV Possible line infection Severely immunocompromised, neutropenic. AML sp chemo C.diff - improved diarrhea R sided parotitis, Staph including MRSA is primary consideration: clinically appears to resolvesd Recs: Followed blood cultures. Continue Meropenem (for Kleb pneumo) Complete PO Dificid (for Cdiff) x 10 days Continue Vancomycin IV Continue oral Acyclovir. Continue Micafungin. Nystatin for oral thrush. Antibiotic adjustments if blood culture becomes positive. Jim Grande MD Jul 25, 2017 10:42
[2017-07-25] MEDS ORDERED: POTASSIUM CHLORIDE 10 MEQ CONTROLLED RELEASE TAB PO ONE (12:00)
[2017-07-25] MEDS: NYSTATIN SUSP 500,000 U/5 ML CUP SWISH-SWAL SCH ×3 (12:11→21:05)
[2017-07-25] MEDS: FILGRASTIM INJ 480 MCG in DEXTROSE 5% IN WATER INJ 50 ML IV SCH ×2 (13:40)
[2017-07-25] MEDS: NS + KCL 40 MEQ INJ 1,000 ML IV SCH ×2 (17:40→20:03)
[2017-07-25] MEDS: METOCLOPRAMIDE INJ 10 MG in SODIUM CHLORIDE 0.9% INJ 50 ML IV SCH (21:06)
[2017-07-25] MEDS: LORazepam 2 MG/ML VIAL IV PUSH PRN (22:20)
[2017-07-26] VITALS (10 sets, daily range): BP systolic 129–155; BP diastolic 73–90; PULSE 78–95; RESP 16–20; TEMP 98.4–99.6; O2SAT 95–98
[2017-07-26] MEDS: ACYCLOVIR 200 MG CAP PO SCH ×3 (00:40→16:29)
[2017-07-26] MEDS: MICAFUNGIN INJ 150 MG in SODIUM CHLORIDE 0.9% INJ 100 ML IV SCH ×2 (00:40→21:16)
[2017-07-26] MEDS: ONDANSETRON HCL 4 MG/2 ML VIAL IV PUSH PRN (03:01)
[2017-07-26] MEDS: ACETAMINOPHEN 325 MG TAB PO PRN ×2 (03:12→14:53)
[2017-07-26] MEDS: MEROPENEM INJ 2,000 MG in SODIUM CHLORIDE 0.9% INJ 100 ML IV SCH ×3 (03:12→19:00)
[2017-07-26] MEDS: VANCOMYCIN INJ 1,750 MG in SODIUM CHLORID 0.9% 500 ML INJ 500 ML IV SCH ×2 (08:00→23:14)
[2017-07-26] MEDS: SODIUM CHLORIDE 0.9% FLUSH 10 ML FLUSH IV FLUSH SCH (09:00)
[2017-07-26] MEDS: NYSTAT/DIPHENHY/LIDO MOUTHWASH (Adult) 120ML SWISH-SWAL SCH ×4 (09:00→21:00)
[2017-07-26] MEDS: NYSTATIN SUSP 500,000 U/5 ML CUP SWISH-SWAL SCH ×4 (09:04→21:17)
[2017-07-26] MEDS: CITALOPRAM HYDROBROMIDE 20 MG TAB PO SCH (09:04)
[2017-07-26] MEDS: amLODIPine BESYLATE 5 MG TAB PO SCH (09:04)
[2017-07-26] MEDS: PANTOPRAZOLE SOD 40 MG DELAYED RELEASE TAB PO SCH (09:04)
[2017-07-26] MEDS: LOSARTAN 50 MG TAB PO SCH (09:04)
[2017-07-26] MEDS: predniSONE 5 MG TAB PO SCH (09:04)
[2017-07-26] MEDS: CARVEDILOL 3.125 MG TAB PO SCH (09:04)
[2017-07-26] MEDS: FIDAXOMICIN 200 MG TAB PO SCH (09:05)
[2017-07-26] MEDS: MAGNESIUM OXIDE 400 MG TAB PO SCH ×2 (09:05→21:17)
[2017-07-26 11:38] LABS: HEMATOCRIT 23.2 % (35.0-46.0); HEMOGLOBIN 8.4 GM/DL (11.6-15.3); MEAN CELL VOLUME 77.4 FL (80.0-100.0); MEAN CORPUSCULAR HEMOGLOBIN 27.9 PG (27.0-34.0); MEAN PLATELET VOLUME 8.6 FL (7.0-11.0); RED CELL DISTRIBUTION WIDTH 13.3 % (11.6-17.2)
[2017-07-26 11:44] LABS: MEAN CORPUSCULAR HGB CONC 36.1 % (32.0-36.0)
[2017-07-26 11:46] LABS: PLATELET COUNT 4 TH/MM3 (150-450)
[2017-07-26 11:59] LABS: BICARBONATE 30.6 MEQ/L (21.0-32.0); CALCIUM 8.7 MG/DL (8.5-10.1); CREATININE 0.45 MG/DL (0.50-1.00); MAGNESIUM 2.1 MG/DL (1.5-2.5)
[2017-07-26] MEDS ORDERED: SODIUM CHLOR 0.9% 250 ML INJ 250 ML IV ONE (12:00)
[2017-07-26] MEDS: ALPRAZolam 0.5 MG TAB PO PRN (12:14)
--- NOTE | 2017-07-26 12:25 | PD.ONC.PN ---
Subjective Subjective Remarks Last fever 1750 last night Pt reports she had some dry heaves last night Frustrated that her picc line is not working No bleeding Objective Data Date Time Temp Pulse Resp B/P (MAP) Pulse Ox O2 Delivery O2 Flow Rate FiO2 07/26/17 09:17 Room Air 07/26/17 09:17 85 07/26/17 07:43 98.4 87 20 136/90 (105) 96 07/26/17 04:00 Room Air 21 07/26/17 00:00 94 07/26/17 00:00 Room Air 21 07/25/17 21:00 Room Air 21 07/25/17 20:00 87 07/25/17 17:50 101.4 07/25/17 17:00 94 07/25/17 16:00 88 07/25/17 15:01 97.9 108 18 119/89 (99) 96 07/25/17 15:00 112 07/25/17 15:00 113 07/25/17 14:00 86 07/25/17 13:00 88 07/26/17 07/26/17 07/26/17 07:00 15:00 23:00 Intake Total 1040 ml Output Total 2500 ml Balance -1460 ml Result Diagram: 07/26/17 1122 07/26/17 1122 Laboratory Results Laboratory Tests Test 07/26/17 11:22 White Blood Count 0.0 TH/MM3 Red Blood Count 3.00 MIL/MM3 Hemoglobin 8.4 GM/DL Hematocrit 23.2 % Mean Corpuscular Volume 77.4 FL Mean Corpuscular Hemoglobin 27.9 PG Mean Corpuscular Hemoglobin Concent 36.1 % Red Cell Distribution Width 13.3 % Platelet Count 4 TH/MM3 Mean Platelet Volume 8.6 FL CBC Comment AUTO DIFF Blood Urea Nitrogen 7 MG/DL Creatinine 0.45 MG/DL Random Glucose 115 MG/DL Calcium Level 8.7 MG/DL Magnesium Level 2.1 MG/DL Sodium Level 135 MEQ/L Potassium Level 3.7 MEQ/L Chloride Level 97 MEQ/L Carbon Dioxide Level 30.6 MEQ/L Anion Gap 7 MEQ/L Estimat Glomerular Filtration Rate 143 ML/MIN Culture Results Microbiology Date/Time Source Procedure Growth Status 07/25/17 10:47 Blood Peripheral Aerobic Blood Culture - Preliminary NO GROWTH IN 1 DAY Resulted 07/25/17 10:47 Blood Peripheral Anaerobic Blood Culture - Preliminary NO GROWTH IN 1 DAY Resulted 07/25/17 10:40 Blood Line Aerobic Blood Culture - Preliminary NO GROWTH IN 1 DAY Resulted 07/25/17 10:40 Blood Line Anaerobic Blood Culture - Preliminary NO GROWTH IN 1 DAY Resulted 07/24/17 06:00 Blood Line Aerobic Blood Culture - Preliminary NO GROWTH IN 2 DAYS Resulted 07/24/17 06:00 Blood Line Anaerobic Blood Culture - Preliminary NO GROWTH IN 2 DAYS Resulted 07/24/17 06:00 Blood Line Aerobic Blood Culture - Preliminary NO GROWTH IN 2 DAYS Resulted 07/24/17 06:00 Blood Line Anaerobic Blood Culture - Preliminary NO GROWTH IN 2 DAYS Resulted 07/23/17 14:30 Catheter Tip Central Venous Line Wound Culture - Final NO GROWTH IN 72 HOURS Complete Administered Medications Medications (Trade) Dose Ordered Sig/Zeynep Route PRN Reason Start Time Stop Time Status Last Admin Dose Admin Carvedilol (Coreg) 3.125 mg DAILY PO 06/29/17 09:00 Future hold 07/26/17 09:04 Prednisone (Deltasone) 5 mg DAILY PO 06/29/17 09:00 07/26/17 09:04 Losartan Potassium (Cozaar) 100 mg DAILY PO 06/29/17 09:00 07/26/17 09:04 Al Hydrox/Mg Hydrox/Simethicone (Mag-Al Plus Susp Liq) 15 ml Q6H PRN PO INDIGESTION 06/28/17 20:45 07/05/17 13:52 Multi-Ingredient Mouthwash/Gargle (Magic Mouthwash Adult Liq) 5 ml QID SWISH-SWAL 06/29/17 13:00 07/25/17 09:12 Ondansetron HCl (Zofran Inj) 4 mg Q6HR PRN IV PUSH nausea 06/29/17 10:15 07/26/17 03:01 Diphenhydramine HCl (Benadryl) 25 mg Q6H PRN PO itching 06/30/17 10:45 07/22/17 16:03 Acetaminophen (Tylenol) 650 mg Q4H PRN PO fever>100.4, PREMED, orpain1-2 07/01/17 10:45 07/26/17 03:12 Melatonin (Melatonin) 5 mg HS PRN PO insomnia 07/02/17 21:00 07/23/17 21:48 Carboxymethylcellulose Sodium (Refresh Tears 0.5% Opth Soln) 1 drop Q6H PRN EACH EYE dry eyes 07/04/17 11:30 07/04/17 19:44 Prochlorperazine Edisylate (Compazine Inj) 10 mg Q8H PRN IV PUSH nausea 07/05/17 10:15 07/18/17 22:34 Albuterol/ Ipratropium (Duoneb Neb) 1 ampule Q6HR NEB PRN NEB SHORTNESS OF BREATH 07/06/17 18:00 07/07/17 20:44 Guaifenesin/ Codeine Phosphate (Robitussin Ac 200-20 Mg/10 ml Liq) 10 ml Q4H PRN PO cough 07/07/17 13:30 07/11/17 21:05 Amlodipine Besylate (Norvasc) 5 mg DAILY PO 07/08/17 19:00 07/26/17 09:04 Citalopram Hydrobromide (CeleXA) 20 mg DAILY PO 07/12/17 09:00 07/26/17 09:04 Acyclovir (Zovirax) 400 mg Q8H PO 07/12/17 02:00 07/26/17 09:04 Metoclopramide HCl 10 mg/Sodium Chloride 52 ml @ 104 mls/hr DAILY@2000 IV 07/14/17 20:00 07/25/17 21:06 Pantoprazole Sodium (Protonix) 40 mg DAILY PO 07/14/17 09:00 07/26/17 09:04 Magnesium Oxide (Mag-Ox) 400 mg BID PO 07/16/17 09:00 07/26/17 09:05 Fidaxomicin (Dificid) 200 mg BID PO 07/16/17 21:00 07/26/17 20:59 07/26/17 09:05 Vancomycin HCl 1750 mg/Sodium Chloride 517.5 ml @ 250 mls/hr Q12H IV 07/17/17 20:00 07/25/17 21:06 Meropenem 2000 mg/ Sodium Chloride 100 ml @ 200 mls/hr Q8H IV 07/18/17 11:00 07/26/17 03:12 Enalaprilat (Vasotec Inj) 1.25 mg Q8H PRN IV PUSH SBP>160, DBP>90 07/18/17 17:15 07/23/17 12:52 Micafungin Sodium 150 mg/Sodium Chloride 100 ml @ 100 mls/hr Q24H IV 07/22/17 22:00 07/26/17 00:40 Filgrastim 480 mcg/Dextrose 51.6 ml @ 100 mls/hr DAILY@14 IV 07/23/17 14:00 07/25/17 13:40 Alprazolam (Xanax) 0.5 mg Q8HR PRN PO anxiety 07/23/17 11:00 07/23/17 21:49 Sodium Chloride (NS Flush) See Protocol DAILY IV FLUSH 07/24/17 09:00 07/25/17 09:12 Potassium Chloride/Sodium Chloride 1,000 ml @ 83 mls/hr Q12H3M IV 07/25/17 08:00 07/25/17 17:40 Lorazepam (Ativan Inj) 0.5 mg Q4HR PRN IV PUSH anxiety 07/25/17 10:45 07/25/17 22:20 Nystatin (Mycostatin Liq) 5 ml QID SWISH-SWAL 07/25/17 13:00 07/26/17 09:04 Objective Remarks GENERAL: Pleasant female, lying in bed in no obvious distress. SKIN: Warm and dry. No oozing from lines. HEAD: Normocephalic. EYES: No injection or drainage. NECK: Supple, trachea midline. CARDIOVASCULAR: Regular rate and rhythm RESPIRATORY: Breath sounds equal bilaterally. No accessory muscle use. GASTROINTESTINAL: Abdomen soft, non-tender, nondistended. EXTREMITIES: No cyanosis. no edema. NEUROLOGICAL: Moving all extremities. Normal speech. Awake and alert. 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 Transfuse 1 unit platelets for level of 4K. Have IR evaluate picc. Continue neupogen until counts recovered. Monitor CBC 07/25/17: D28 07/24/17: D27 07/23/17: D26: monitor CBC await counts recovery. consult invasive to remove port. consult vascular for PICC line. 07/22/17: D25. hgb 5, platelets 6, give 2 units pRBC and 1 unit platelets. bone marrow biopsy shows empty bone marrow--no blasts. 07/21/17 D 24 . BM bx is still pending. I have called [facility]. There is a delay in getting the specimen. They willl run today and will call me. BM morphology is pending. Call place to pathologist Dr Melendez. NO TX today. ANC is 0. D/W BMT team at [facility]. willl follow. 07/20/17: D.23. await path from bone marrow biopsy. continue fluids, electrolyte replacement. 07/19/17: D22. bone marrow biopsy today. transfuse 1 unit platelets. start NS+ 40K @84cc/hr continuous infusion. check magnesium. 07/18/17 D21: Blood cultures pending from fever spike yesterday. Transfuse 2 units packed red blood cells for hemoglobin of 6.6. Plan to transfuse a total of 80 mEq potassium for level 3.4 today. Repeat bone marrow biopsy in a.m. 07/17/17: D20:Await CBC today. May have to have vascular place peripheral IV if unable to get blood return from [id number]. Replace Potassium today. Await CT neck. Pt agrees to imaging. 07/16/17: D19. give [address] neck for enlarging subinguinal LN ? continue antibiotics. increase Magnesium to BID. continue IV Potassium. 07/15/17: D18. no transfusion. obtain blood cultures for fever spike last night. give potassium as ordered. monitor closely 07/14/17: D17. no transfusion. give IV potassium. notify cardiology of 6 beat run of V-tach overnight 07/13/17: D16. give 1unit pRBC, 1 unit platelets. facial swelling improved. start diflucan for thrush. 07/12/17: D15: no transfusion. monitor right-sided facial swelling. refusing MRI. continue antibiotics and lemon lozenges. 07/11/17: D14 No transfusion. Patient with right-sided facial swelling 07/10/17: D13 Hgb 7.9. Transfuse 1 unit irradiated PRBC's. K3.1. Transfuse total of 80 meq's to keep K greater than 4.0 per cardiology recs. Give 400mg magnesium oxide 4 mag level of 1.9 07/09/17: D12. hgb 8, platelet count of 7, will transfuse blood and platelets. 07/08/17: D11. continue antibiotics. monitor for fever 07/07/27: D10. give 1 unit pRBC and 1 unit platelets. continue antibiotics. 07/06/17: D9. no transfusion, spiked fever. start antibiotics, obtain cultures, u /a and chest x-ray. 07/05/17: D8. Transfuse 1 unit irradiated platelets today. Start Rydapt 50mg po BID x 14 days. 07/04/17: D7. no transfusion. monitor for fever 07/03/17: D6. 2 units pRBC. last day of chemotherapy 07/02/17: D5. 1 unit platelets. continue chemotherapy. 07/01/17: D4. 1 unit platelets. continue chemotherapy. 06/30/17: D3. Tolerating chemo. No transfusion today. 06/29/17: D2, give 2 units pRBC this AM. start chemotherapy this afternoon. 06/28/17: admission, D1 (2) Neutropenic fever ICD Codes: D70.9 - Neutropenia, unspecified; R50.81 - Fever presenting with conditions classified elsewhere Status: Acute Plan: --BC 07/25: no growth x 1 day. --BC, 07/06 gram negative rods, Klebsiella Pneumoniae --CXR shows mild patchy peripheral lower lung zone. --U/A neg (3) C. difficile diarrhea ICD Codes: A04.72 - Enterocolitis due to Clostridium difficile, not specified as recurrent Plan: --on PO Dificid (4) Thrush ICD Codes: B37.0 - Candidal stomatitis Plan: --magic mouthwash. (5) Ventricular tachycardia (paroxysmal) ICD Codes: I47.2 - Ventricular tachycardia Plan: --seen by Dr. Barker, advises: keep her potassium levels above 4. Try to keep her magnesium levels near 2 or above. Assessment 57y/o female admitted for salvage chemotherapy with FLAG-AKASH for refractory acute myeloid leukemia. 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 awaiting bone marrow recovery. h/o Rheumatoid arthritis. Anxiety disorder. COPD. Depression. Hypercholesterolemia. Hypertension. Irregular heartbeat Attending Statement The exam, history, and the medical decision-making described in the above note were completed with the assistance of the mid-level provider. I reviewed and agree with the findings presented. I attest that I had a [id number] encounter with the patient on the same day, and personally performed and documented my assessment and findings in the medical record. Patient continues to have fever. Blood .Cultures are negative so far PICC line is not working, TPA to be done Transfuse placements today await bone marrow recovery ,continues Amina Bhakta Jul 26, 2017 12:25 April Fonseca MD Jul 26, 2017 21:55
[2017-07-26] MEDS ORDERED: ALTEPLASE RECOMBINANT 2 MG VIAL INTRACATH ONE (12:30)
[2017-07-26 12:34] LABS: BANDS 10 % (0-6); LYMPHOCYTES 50 % (9-44); MONOCYTES 20 % (0-8); POLYS (SEG NEUTROPHILS) 20 % (16-70)
--- NOTE | 2017-07-26 12:56 | HHI.IDPN ---
Subjective Subjective Remarks feels somewhat better cont to have fever up to 101.4 ANC remians 0 denioes abdominal pain and has no diarrhea all blood clx are negative Antibiotics micafungin meropenem acyclovir vanco iv dificid Lines Line sites with no e.o infection Port site ok. Past Medical History Past h/o Kleb pneumo bacteremia in May 2017. Allergies: Coded Allergies: cefepime (Verified Allergy, Severe, HIVES, 06/25/17) latex (Unverified Allergy, Severe, Rash, 06/25/17) Sulfa (Sulfonamide Antibiotics) (Unverified Adverse Reaction, Severe, Vomiting, cramps, 06/25/17) Objective . Vital Signs Date Time Temp Pulse Resp B/P (MAP) Pulse Ox O2 Delivery O2 Flow Rate FiO2 07/26/17 09:17 Room Air 07/26/17 09:17 85 07/26/17 07:43 98.4 87 20 136/90 (105) 96 07/26/17 04:00 Room Air 21 07/26/17 00:00 94 07/26/17 00:00 Room Air 21 07/25/17 21:00 Room Air 21 07/25/17 20:00 87 07/25/17 17:50 101.4 07/25/17 17:00 94 07/25/17 16:00 88 07/25/17 15:01 97.9 108 18 119/89 (99) 96 07/25/17 15:00 112 07/25/17 15:00 113 07/25/17 14:00 86 07/25/17 13:00 88 . Laboratory Tests Test 07/25/17 04:00 07/26/17 11:22 White Blood Count 0.1 TH/MM3 0.0 TH/MM3 Red Blood Count 3.35 MIL/MM3 3.00 MIL/MM3 Hemoglobin 9.5 GM/DL 8.4 GM/DL Hematocrit 25.9 % 23.2 % Mean Corpuscular Volume 77.4 FL 77.4 FL Mean Corpuscular Hemoglobin 28.5 PG 27.9 PG Mean Corpuscular Hemoglobin Concent 36.8 % 36.1 % Red Cell Distribution Width 13.6 % 13.3 % Platelet Count 14 TH/MM3 4 TH/MM3 Mean Platelet Volume 8.7 FL 8.6 FL CBC Comment AUTO DIFF AUTO DIFF Differential Total Cells Counted 1 10 Lymphocytes % 100 % 50 % Neutrophils # (Manual) 0.0 TH/MM3 0.0 TH/MM3 Differential Comment FINAL DIFF MANUAL FINAL DIFF MANUAL Platelet Estimate RARE RARE Platelet Morphology Comment NORMAL NORMAL Neutrophils % (Manual) 20 % Band Neutrophils % 10 % Monocytes % 20 % Laboratory Tests Test 07/24/17 17:00 07/25/17 04:00 07/26/17 11:22 Potassium Level 3.5 MEQ/L 3.3 MEQ/L 3.7 MEQ/L Blood Urea Nitrogen 6 MG/DL 7 MG/DL Creatinine 0.38 MG/DL 0.45 MG/DL Random Glucose 107 MG/DL 115 MG/DL Calcium Level 9.0 MG/DL 8.7 MG/DL Magnesium Level 2.0 MG/DL 2.1 MG/DL Sodium Level 136 MEQ/L 135 MEQ/L Chloride Level 98 MEQ/L 97 MEQ/L Carbon Dioxide Level 25.9 MEQ/L 30.6 MEQ/L Anion Gap 12 MEQ/L 7 MEQ/L Estimat Glomerular Filtration Rate 173 ML/MIN 143 ML/MIN Microbiology Date/Time Source Procedure Growth Status 07/25/17 10:47 Blood Peripheral Aerobic Blood Culture - Preliminary NO GROWTH IN 1 DAY Resulted 07/25/17 10:47 Blood Peripheral Anaerobic Blood Culture - Preliminary NO GROWTH IN 1 DAY Resulted 07/25/17 10:40 Blood Line Aerobic Blood Culture - Preliminary NO GROWTH IN 1 DAY Resulted 07/25/17 10:40 Blood Line Anaerobic Blood Culture - Preliminary NO GROWTH IN 1 DAY Resulted 07/24/17 06:00 Blood Line Aerobic Blood Culture - Preliminary NO GROWTH IN 2 DAYS Resulted 07/24/17 06:00 Blood Line Anaerobic Blood Culture - Preliminary NO GROWTH IN 2 DAYS Resulted 07/24/17 06:00 Blood Line Aerobic Blood Culture - Preliminary NO GROWTH IN 2 DAYS Resulted 07/24/17 06:00 Blood Line Anaerobic Blood Culture - Preliminary NO GROWTH IN 2 DAYS Resulted 07/23/17 14:30 Catheter Tip Central Venous Line Wound Culture - Final NO GROWTH IN 72 HOURS Complete Imaging Last Impressions Port Line Revision 07/23/17 0000 Signed Impressions: Service Date/Time: Sunday, July 23, 2017 00:00 - CONCLUSION: Uncomplicated port removal as above. Reinier Castro MD Bone Biopsy CT 07/19/17 1521 Signed Impressions: Service Date/Time: Wednesday, July 19, 2017 15:58 - CONCLUSION: 1. Uncomplicated CT guided bone marrow aspirate. 2. Uncomplicated CT guided bone marrow biopsy. Malcolm Coker MD Chest X-Ray 07/17/17 0000 Signed Impressions: Service Date/Time: Monday, July 17, 2017 13:49 - CONCLUSION: Mild patchy peripheral lower lung zone opacity unchanged. Mild chronic cardiac silhouette enlargement. Logan Walton MD Neck CT 07/16/17 0000 Signed Impressions: Service Date/Time: Monday, July 17, 2017 16:22 - CONCLUSION: Stranding of fat in the submandibular anterior soft tissues extending into the deeper soft tissues anterior to the carotid arteries, worse on the left side. There is also some mild inflammatory changes around subcentimeter lymph nodes along the left carotid lymph node chain. Findings are most characteristic of a cellulitis with some early reactive changes in the left-sided cervical lymph nodes. Jacinto Tello MD Upper Extremity Ultrasound 07/11/17 0000 Signed Impressions: Service Date/Time: Tuesday, July 11, 2017 16:40 - CONCLUSION: Normal examination. Mt Vance MD Head CT 07/08/17 0000 Signed Impressions: Service Date/Time: July 19:55 - CONCLUSION: No acute disease. Malcolm Coker MD Physical Exam CONSTITUTIONAL/GENERAL: Awake and alert, NAD, looks very fatigued previous PORT site covered with dressing, intact SKIN: No jaundice, rashes, or lesions. Alopecia EYES: Pupils equal and round and reactive. Extraocular motions intact. No scleral icterus. No injection or drainage. Fundi not examined. HEENT: mucositis, tongue ulcer (very shallow) - still present on R side of the tongue tip . L submandubular mass resolved, no tenderness CARDIOVASCULAR: Regular rate and rhythm without murmurs, gallops, or rubs. R parotid swelling resolved RESPIRATORY/CHEST: Clear to auscultation. Breath sounds equal bilaterally. No wheezes, rales, or rhonchi. GASTROINTESTINAL: Abdomen soft, non-tender, nondistended. GENITOURINARY: Without palpable bladder distension. MUSCULOSKELETAL: Extremities without clubbing, cyanosis, no edema. No calf tenderness NEUROLOGICAL: awake and alert Non focal PSYCHIATRIC: Calm. Assessment & Plan Remarks Sepsis in an Immune compromised host. New fevers ? new infection. ? PORT - removed Kleb pneumo bacteremia, recurrent ? source (PORT?) This appears recurrent similar Kleb pneumo bacteremia in May 2017. 2 D echo negative from 06/30 US negative for thrombosys Sialoadenitis/Parotitis: nearly resolved clinically Cold sore ? HSV Possible line infection Severely immunocompromised, neutropenic. AML sp chemo Neutropenia, neutropenic fever - resolved on current abx - persistent absolute neutropenia C.diff - improved diarrhea R sided parotitis, Staph including MRSA is primary consideration: clinically appears to resolvesd Recs: cont meropenemV (for Kleb pneumo) complete PO difricid (for Cdiff) x 10 days Cont vancomycin IV cont oral acyclovir. cont micafungin will cont merrem, vanco IV and micafungin untill count recovery of will adjust if + blood clx awaiting ANC recovery fu blood clx Brittney Odell MD Jul 26, 2017 12:56
[2017-07-26] MEDS: diphenhydrAMINE HCL 25 MG CAP PO PRN (14:54)
[2017-07-26] MEDS: FILGRASTIM INJ 480 MCG in DEXTROSE 5% IN WATER INJ 50 ML IV SCH ×2 (16:29)
[2017-07-26] MEDS: traMADol HCL 50 MG TAB PO PRN (17:13)
[2017-07-26] MEDS: METOCLOPRAMIDE INJ 10 MG in SODIUM CHLORIDE 0.9% INJ 50 ML IV SCH (21:15)
[2017-07-26] MEDS: LORazepam 2 MG/ML VIAL IV PUSH PRN (21:16)
[2017-07-26] MEDS: NS + KCL 40 MEQ INJ 1,000 ML IV SCH (21:17)
[2017-07-27] VITALS (31 sets, daily range): BP systolic 100–136; BP diastolic 66–84; PULSE 72–107; RESP 16–18; TEMP 97.8–100.8; O2SAT 95–100
[2017-07-27] MEDS: ACYCLOVIR 200 MG CAP PO SCH ×3 (01:22→18:19)
[2017-07-27] MEDS: MEROPENEM INJ 2,000 MG in SODIUM CHLORIDE 0.9% INJ 100 ML IV SCH ×3 (04:36→19:38)
[2017-07-27 05:32] LABS: MEAN CELL VOLUME 79.2 FL (80.0-100.0); MEAN CORPUSCULAR HEMOGLOBIN 28.5 PG (27.0-34.0); MEAN PLATELET VOLUME 8.8 FL (7.0-11.0); PLATELET COUNT 37 TH/MM3 (150-450); RED BLOOD COUNT 2.29 MIL/MM3 (4.00-5.30); RED CELL DISTRIBUTION WIDTH 12.9 % (11.6-17.2)
[2017-07-27 05:43] LABS: CALCIUM 8.6 MG/DL (8.5-10.1); CREATININE 0.42 MG/DL (0.50-1.00)
[2017-07-27 05:52] LABS: HEMOGLOBIN 6.5 GM/DL (11.6-15.3)
[2017-07-27 05:53] LABS: HEMATOCRIT 18.1 % (35.0-46.0)
[2017-07-27 06:41] LABS: LYMPHOCYTES 90 % (9-44); POLYS (SEG NEUTROPHILS) 10 % (16-70)
[2017-07-27 06:42] LABS: OVALOCYTES 1+ (NORMAL)
[2017-07-27] MEDS: NS + KCL 40 MEQ INJ 1,000 ML IV SCH ×2 (08:12→19:39)
[2017-07-27] MEDS: VANCOMYCIN INJ 1,750 MG in SODIUM CHLORID 0.9% 500 ML INJ 500 ML IV SCH ×2 (08:43→21:13)
[2017-07-27] MEDS: NYSTATIN SUSP 500,000 U/5 ML CUP SWISH-SWAL SCH ×4 (08:43→21:13)
[2017-07-27] MEDS: SODIUM CHLORIDE 0.9% FLUSH 10 ML FLUSH IV FLUSH SCH (08:43)
[2017-07-27] MEDS: LOSARTAN 50 MG TAB PO SCH (08:43)
[2017-07-27] MEDS: predniSONE 5 MG TAB PO SCH (08:43)
[2017-07-27] MEDS: PANTOPRAZOLE SOD 40 MG DELAYED RELEASE TAB PO SCH (08:43)
[2017-07-27] MEDS: NYSTAT/DIPHENHY/LIDO MOUTHWASH (Adult) 120ML SWISH-SWAL SCH ×4 (08:44→19:42)
[2017-07-27] MEDS: amLODIPine BESYLATE 5 MG TAB PO SCH (08:44)
[2017-07-27] MEDS: ACETAMINOPHEN 325 MG TAB PO PRN ×3 (08:44→23:21)
[2017-07-27] MEDS: CITALOPRAM HYDROBROMIDE 20 MG TAB PO SCH (08:44)
[2017-07-27] MEDS: CARVEDILOL 3.125 MG TAB PO SCH (08:44)
[2017-07-27] MEDS: MAGNESIUM OXIDE 400 MG TAB PO SCH ×2 (08:44→19:39)
--- NOTE | 2017-07-27 11:39 | PD.ONC.PN ---
Subjective Subjective Remarks Tmax 100.8 overnight. Patient fatigued, but otherwise in nad. No complaints. Hoping for counts to come up soon. Objective Data Date Time Temp Pulse Resp B/P (MAP) Pulse Ox O2 Delivery O2 Flow Rate FiO2 07/27/17 11:11 99.3 84 16 116/75 (89) 100 07/27/17 08:50 96 Room Air 07/27/17 08:40 97.8 07/27/17 08:40 100.8 07/27/17 08:00 100.2 93 18 130/84 (99) 96 07/27/17 06:06 Nasal Cannula 2.00 96 07/27/17 06:00 92 07/27/17 05:00 94 07/27/17 04:29 99.5 106 18 130/79 (96) 96 07/27/17 04:08 95 07/27/17 03:00 90 07/27/17 02:00 94 07/27/17 01:00 94 07/27/17 00:07 95 07/27/17 00:00 99.5 107 18 136/82 (100) 96 07/26/17 23:00 94 07/26/17 22:00 88 07/26/17 21:11 98.4 86 18 155/80 (105) 98 07/26/17 21:00 78 07/26/17 18:45 98.8 91 18 129/73 (91) 95 07/26/17 15:45 Nasal Cannula 2.00 07/26/17 15:25 99.6 91 18 129/73 95 07/26/17 14:50 99.6 95 16 129/73 95 07/27/17 07/27/17 07/27/17 07:00 15:00 23:00 Intake Total 857.5 ml Balance 857.5 ml Result Diagram: 07/27/17 0420 07/27/17 0420 Laboratory Results Laboratory Tests Test 07/27/17 04:20 White Blood Count 0.0 TH/MM3 Red Blood Count 2.29 MIL/MM3 Hemoglobin 6.5 GM/DL Hematocrit 18.1 % Mean Corpuscular Volume 79.2 FL Mean Corpuscular Hemoglobin 28.5 PG Mean Corpuscular Hemoglobin Concent 36.0 % Red Cell Distribution Width 12.9 % Platelet Count 37 TH/MM3 Mean Platelet Volume 8.8 FL CBC Comment AUTO DIFF Differential Total Cells Counted 10 Neutrophils % (Manual) 10 % Lymphocytes % 90 % Neutrophils # (Manual) 0.0 TH/MM3 Differential Comment FINAL DIFF MANUAL Platelet Estimate LOW Platelet Morphology Comment NORMAL Ovalocytes 1+ Blood Urea Nitrogen 9 MG/DL Creatinine 0.42 MG/DL Random Glucose 99 MG/DL Calcium Level 8.6 MG/DL Magnesium Level 2.0 MG/DL Sodium Level 135 MEQ/L Potassium Level 3.5 MEQ/L Chloride Level 97 MEQ/L Carbon Dioxide Level 30.0 MEQ/L Anion Gap 8 MEQ/L Estimat Glomerular Filtration Rate 154 ML/MIN Culture Results Microbiology Date/Time Source Procedure Growth Status 07/25/17 10:47 Blood Peripheral Aerobic Blood Culture - Preliminary NO GROWTH IN 2 DAYS Resulted 07/25/17 10:47 Blood Peripheral Anaerobic Blood Culture - Preliminary NO GROWTH IN 2 DAYS Resulted 07/25/17 10:40 Blood Line Aerobic Blood Culture - Preliminary NO GROWTH IN 2 DAYS Resulted 07/25/17 10:40 Blood Line Anaerobic Blood Culture - Preliminary NO GROWTH IN 2 DAYS Resulted Administered Medications Medications (Trade) Dose Ordered Sig/Zeynep Route PRN Reason Start Time Stop Time Status Last Admin Dose Admin Carvedilol (Coreg) 3.125 mg DAILY PO 06/29/17 09:00 Future hold 07/27/17 08:44 Prednisone (Deltasone) 5 mg DAILY PO 06/29/17 09:00 07/27/17 08:43 Losartan Potassium (Cozaar) 100 mg DAILY PO 06/29/17 09:00 07/27/17 08:43 Al Hydrox/Mg Hydrox/Simethicone (Mag-Al Plus Susp Liq) 15 ml Q6H PRN PO INDIGESTION 06/28/17 20:45 07/05/17 13:52 Multi-Ingredient Mouthwash/Gargle (Magic Mouthwash Adult Liq) 5 ml QID SWISH-SWAL 06/29/17 13:00 07/26/17 12:41 Ondansetron HCl (Zofran Inj) 4 mg Q6HR PRN IV PUSH nausea 06/29/17 10:15 07/26/17 03:01 Diphenhydramine HCl (Benadryl) 25 mg Q6H PRN PO itching 06/30/17 10:45 07/26/17 14:54 Acetaminophen (Tylenol) 650 mg Q4H PRN PO fever>100.4, PREMED, orpain1-2 07/01/17 10:45 07/27/17 08:44 Melatonin (Melatonin) 5 mg HS PRN PO insomnia 07/02/17 21:00 07/23/17 21:48 Carboxymethylcellulose Sodium (Refresh Tears 0.5% Opth Soln) 1 drop Q6H PRN EACH EYE dry eyes 07/04/17 11:30 07/04/17 19:44 Prochlorperazine Edisylate (Compazine Inj) 10 mg Q8H PRN IV PUSH nausea 07/05/17 10:15 07/18/17 22:34 Albuterol/ Ipratropium (Duoneb Neb) 1 ampule Q6HR NEB PRN NEB SHORTNESS OF BREATH 07/06/17 18:00 07/07/17 20:44 Guaifenesin/ Codeine Phosphate (Robitussin Ac 200-20 Mg/10 ml Liq) 10 ml Q4H PRN PO cough 07/07/17 13:30 07/11/17 21:05 Amlodipine Besylate (Norvasc) 5 mg DAILY PO 07/08/17 19:00 07/27/17 08:44 Citalopram Hydrobromide (CeleXA) 20 mg DAILY PO 07/12/17 09:00 07/27/17 08:44 Acyclovir (Zovirax) 400 mg Q8H PO 07/12/17 02:00 07/27/17 10:52 Metoclopramide HCl 10 mg/Sodium Chloride 52 ml @ 104 mls/hr DAILY@2000 IV 07/14/17 20:00 07/26/17 21:15 Pantoprazole Sodium (Protonix) 40 mg DAILY PO 07/14/17 09:00 07/27/17 08:43 Magnesium Oxide (Mag-Ox) 400 mg BID PO 07/16/17 09:00 07/27/17 08:44 Vancomycin HCl 1750 mg/Sodium Chloride 517.5 ml @ 250 mls/hr Q12H IV 07/17/17 20:00 07/27/17 08:43 Meropenem 2000 mg/ Sodium Chloride 100 ml @ 200 mls/hr Q8H IV 07/18/17 11:00 07/27/17 10:52 Enalaprilat (Vasotec Inj) 1.25 mg Q8H PRN IV PUSH SBP>160, DBP>90 07/18/17 17:15 07/23/17 12:52 Micafungin Sodium 150 mg/Sodium Chloride 100 ml @ 100 mls/hr Q24H IV 07/22/17 22:00 07/26/17 21:16 Filgrastim 480 mcg/Dextrose 51.6 ml @ 100 mls/hr DAILY@14 IV 07/23/17 14:00 07/26/17 16:29 Alprazolam (Xanax) 0.5 mg Q8HR PRN PO anxiety 07/23/17 11:00 07/26/17 12:14 Sodium Chloride (NS Flush) See Protocol DAILY IV FLUSH 07/24/17 09:00 07/27/17 08:43 Potassium Chloride/Sodium Chloride 1,000 ml @ 83 mls/hr Q12H3M IV 07/25/17 08:00 07/26/17 21:17 Lorazepam (Ativan Inj) 0.5 mg Q4HR PRN IV PUSH anxiety 07/25/17 10:45 07/26/17 21:16 Nystatin (Mycostatin Liq) 5 ml QID SWISH-SWAL 07/25/17 13:00 07/27/17 08:43 Tramadol HCl (Ultram) 50 mg Q12H PRN PO pain 3-10 07/26/17 16:45 07/26/17 17:13 Objective Remarks GENERAL: Pleasant female, lying on left side in bed in nad. SKIN: Warm and dry. HEAD: Normocephalic. EYES: No injection or drainage. NECK: Supple, trachea midline. CARDIOVASCULAR: Regular rate and rhythm RESPIRATORY: Breath sounds equal bilaterally. No accessory muscle use. GASTROINTESTINAL: Abdomen soft, non-tender, nondistended. EXTREMITIES: No cyanosis. no edema. NEUROLOGICAL: awake, alert, normal speech. moving extremities. 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 2 units pRBC. monitor blood counts. continue neupogen. 07/26/17: D29. Transfuse 1 unit platelets for level of 4K. Have IR evaluate picc. Continue neupogen until counts recovered. Monitor CBC 07/25/17: D28 07/24/17: D27 07/23/17: D26: monitor CBC await counts recovery. consult invasive to remove port. consult vascular for PICC line. 07/22/17: D25. hgb 5, platelets 6, give 2 units pRBC and 1 unit platelets. bone marrow biopsy shows empty bone marrow--no blasts. 07/21/17 D 24 . BM bx is still pending. I have called [facility]. There is a delay in getting the specimen. They willl run today and will call me. BM morphology is pending. Call place to pathologist Dr Melendez. NO TX today. ANC is 0. D/W BMT team at [facility]. willl follow. 07/20/17: D.23. await path from bone marrow biopsy. continue fluids, electrolyte replacement. 07/19/17: D22. bone marrow biopsy today. transfuse 1 unit platelets. start NS+ 40K @84cc/hr continuous infusion. check magnesium. 07/18/17 D21: Blood cultures pending from fever spike yesterday. Transfuse 2 units packed red blood cells for hemoglobin of 6.6. Plan to transfuse a total of 80 mEq potassium for level 3.4 today. Repeat bone marrow biopsy in a.m. 07/17/17: D20:Await CBC today. May have to have vascular place peripheral IV if unable to get blood return from [id number]. Replace Potassium today. Await CT neck. Pt agrees to imaging. 07/16/17: D19. give [address] neck for enlarging subinguinal LN ? continue antibiotics. increase Magnesium to BID. continue IV Potassium. 07/15/17: D18. no transfusion. obtain blood cultures for fever spike last night. give potassium as ordered. monitor closely 07/14/17: D17. no transfusion. give IV potassium. notify cardiology of 6 beat run of V-tach overnight 07/13/17: D16. give 1unit pRBC, 1 unit platelets. facial swelling improved. start diflucan for thrush. 07/12/17: D15: no transfusion. monitor right-sided facial swelling. refusing MRI. continue antibiotics and lemon lozenges. 07/11/17: D14 No transfusion. Patient with right-sided facial swelling 07/10/17: D13 Hgb 7.9. Transfuse 1 unit irradiated PRBC's. K3.1. Transfuse total of 80 meq's to keep K greater than 4.0 per cardiology recs. Give 400mg magnesium oxide 4 mag level of 1.9 07/09/17: D12. hgb 8, platelet count of 7, will transfuse blood and platelets. 07/08/17: D11. continue antibiotics. monitor for fever 07/07/27: D10. give 1 unit pRBC and 1 unit platelets. continue antibiotics. 07/06/17: D9. no transfusion, spiked fever. start antibiotics, obtain cultures, u /a and chest x-ray. 07/05/17: D8. Transfuse 1 unit irradiated platelets today. Start Rydapt 50mg po BID x 14 days. 07/04/17: D7. no transfusion. monitor for fever 07/03/17: D6. 2 units pRBC. last day of chemotherapy 07/02/17: D5. 1 unit platelets. continue chemotherapy. 07/01/17: D4. 1 unit platelets. continue chemotherapy. 06/30/17: D3. Tolerating chemo. No transfusion today. 06/29/17: D2, give 2 units pRBC this AM. start chemotherapy this afternoon. 06/28/17: admission, D1 (2) Neutropenic fever ICD Codes: D70.9 - Neutropenia, unspecified; R50.81 - Fever presenting with conditions classified elsewhere Status: Acute Plan: --BC 07/25: no growth x 1 day. --BC, 07/06 gram negative rods, Klebsiella Pneumoniae --CXR shows mild patchy peripheral lower lung zone. --U/A neg (3) C. difficile diarrhea ICD Codes: A04.72 - Enterocolitis due to Clostridium difficile, not specified as recurrent Plan: --on PO Dificid (4) Thrush ICD Codes: B37.0 - Candidal stomatitis Plan: --magic mouthwash. (5) Ventricular tachycardia (paroxysmal) ICD Codes: I47.2 - Ventricular tachycardia Plan: --seen by Dr. Barker, advises: keep her potassium levels above 4. Try to keep her magnesium levels near 2 or above. Assessment 57y/o female admitted for salvage chemotherapy with FLAG-AKASH for refractory acute myeloid leukemia. 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 awaiting bone marrow recovery. h/o Rheumatoid arthritis. Anxiety disorder. COPD. Depression. Hypercholesterolemia. Hypertension. Irregular heartbeat Attending Statement The exam, history, and the medical decision-making described in the above note were completed with the assistance of the mid-level provider. I reviewed and agree with the findings presented. I attest that I had a [id number] encounter with the patient on the same day, and personally performed and documented my assessment and findings in the medical record. No more fevers Feels better. Appetite has improved. PRBC today Await BM recovery. Continue neupogen. Julianna Mcdaniel Jul 27, 2017 11:39 April Fonseca MD Jul 27, 2017 22:50
[2017-07-27] MEDS: diphenhydrAMINE HCL 25 MG CAP PO PRN ×3 (11:43→23:21)
[2017-07-27] MEDS: FILGRASTIM INJ 480 MCG in DEXTROSE 5% IN WATER INJ 50 ML IV SCH ×2 (13:25)
[2017-07-27] MEDS: METOCLOPRAMIDE INJ 10 MG in SODIUM CHLORIDE 0.9% INJ 50 ML IV SCH (19:38)
[2017-07-27] MEDS: MICAFUNGIN INJ 150 MG in SODIUM CHLORIDE 0.9% INJ 100 ML IV SCH (23:23)
[2017-07-27] MEDS: LORazepam 2 MG/ML VIAL IV PUSH PRN (23:26)
[2017-07-28] VITALS (23 sets, daily range): BP systolic 112–168; BP diastolic 77–109; PULSE 80–111; RESP 14–20; TEMP 96.4–99.9; O2SAT 94–96
[2017-07-28] MEDS: ACYCLOVIR 200 MG CAP PO SCH ×3 (02:16→18:02)
[2017-07-28] MEDS: MEROPENEM INJ 2,000 MG in SODIUM CHLORIDE 0.9% INJ 100 ML IV SCH ×3 (03:20→20:09)
[2017-07-28 06:44] LABS: HEMOGLOBIN 8.8 GM/DL (11.6-15.3); MEAN CELL VOLUME 79.6 FL (80.0-100.0); MEAN PLATELET VOLUME 8.9 FL (7.0-11.0); PLATELET COUNT 21 TH/MM3 (150-450); RED BLOOD COUNT 3.02 MIL/MM3 (4.00-5.30); RED CELL DISTRIBUTION WIDTH 13.2 % (11.6-17.2)
[2017-07-28 06:45] LABS: MEAN CORPUSCULAR HGB CONC 36.5 % (32.0-36.0)
[2017-07-28 07:01] LABS: BICARBONATE 28.1 MEQ/L (21.0-32.0); CALCIUM 8.3 MG/DL (8.5-10.1); CREATININE 0.32 MG/DL (0.50-1.00); MAGNESIUM 2.1 MG/DL (1.5-2.5)
[2017-07-28] MEDS: VANCOMYCIN INJ 1,750 MG in SODIUM CHLORID 0.9% 500 ML INJ 500 ML IV SCH ×2 (08:00→19:01)
[2017-07-28 08:15] LABS: LYMPHOCYTES 40 % (9-44); MONOCYTES 50 % (0-8); POLYS (SEG NEUTROPHILS) 10 % (16-70)
[2017-07-28] MEDS: NYSTATIN SUSP 500,000 U/5 ML CUP SWISH-SWAL SCH ×4 (08:46→21:00)
[2017-07-28] MEDS: MAGNESIUM OXIDE 400 MG TAB PO SCH ×2 (08:47→20:09)
[2017-07-28] MEDS: LOSARTAN 50 MG TAB PO SCH (08:47)
[2017-07-28] MEDS: amLODIPine BESYLATE 5 MG TAB PO SCH (08:47)
[2017-07-28] MEDS: PANTOPRAZOLE SOD 40 MG DELAYED RELEASE TAB PO SCH (08:47)
[2017-07-28] MEDS: CARVEDILOL 3.125 MG TAB PO SCH ×2 (08:47→20:09)
[2017-07-28] MEDS: CITALOPRAM HYDROBROMIDE 20 MG TAB PO SCH (08:47)
[2017-07-28] MEDS: predniSONE 5 MG TAB PO SCH (08:47)
[2017-07-28] MEDS: SODIUM CHLORIDE 0.9% FLUSH 10 ML FLUSH IV FLUSH SCH (09:00)
[2017-07-28] MEDS: NYSTAT/DIPHENHY/LIDO MOUTHWASH (Adult) 120ML SWISH-SWAL SCH ×4 (09:00→20:08)
[2017-07-28] MEDS: diphenhydrAMINE HCL 25 MG CAP PO PRN ×2 (09:03→14:56)
--- NOTE | 2017-07-28 09:54 | PD.ONC.PN ---
Subjective Subjective Remarks Afebrile overnight. patient resting in bed in nad. reporting a rash on her back which developed overnight. no itching. no pain. Objective Data Date Time Temp Pulse Resp B/P (MAP) Pulse Ox O2 Delivery O2 Flow Rate FiO2 07/28/17 09:42 Room Air 07/28/17 09:05 146/101 (116) 07/28/17 07:26 98.6 111 20 168/109 (128) 96 07/28/17 06:00 94 07/28/17 05:00 90 07/28/17 04:00 82 07/28/17 03:19 98.2 84 16 132/99 95 07/28/17 03:00 86 07/28/17 02:00 86 07/28/17 01:15 97.9 90 16 113/83 94 07/28/17 01:00 98.2 88 15 112/77 95 07/28/17 01:00 88 07/28/17 00:39 99.0 90 14 140/81 94 07/28/17 00:00 87 07/27/17 23:00 82 07/27/17 22:00 80 07/27/17 21:00 78 07/27/17 20:00 Room Air 07/27/17 20:00 77 07/27/17 19:42 98.5 84 16 116/66 95 07/27/17 19:00 78 07/27/17 18:00 76 07/27/17 17:11 97.9 76 18 103/69 96 07/27/17 17:00 80 07/27/17 16:48 97.8 76 18 100/69 97 07/27/17 16:00 86 07/27/17 15:52 97 Nasal Cannula 2.00 07/27/17 15:48 98.9 79 18 101/73 (82) 97 07/27/17 15:00 76 07/27/17 14:00 76 07/27/17 13:00 74 07/27/17 12:00 72 07/27/17 11:11 99.3 84 16 116/75 (89) 100 07/27/17 11:00 88 07/27/17 10:00 106 07/28/17 07/28/17 07/28/17 07:00 15:00 23:00 Intake Total 1837.5 ml Output Total 2150 ml Balance -312.5 ml Result Diagram: 07/28/17 0504 07/28/17 0504 Laboratory Results Laboratory Tests Test 07/28/17 05:04 White Blood Count 0.0 TH/MM3 Red Blood Count 3.02 MIL/MM3 Hemoglobin 8.8 GM/DL Hematocrit 24.0 % Mean Corpuscular Volume 79.6 FL Mean Corpuscular Hemoglobin 29.0 PG Mean Corpuscular Hemoglobin Concent 36.5 % Red Cell Distribution Width 13.2 % Platelet Count 21 TH/MM3 Mean Platelet Volume 8.9 FL CBC Comment AUTO DIFF Differential Total Cells Counted 10 Neutrophils % (Manual) 10 % Lymphocytes % 40 % Monocytes % 50 % Neutrophils # (Manual) 0.0 TH/MM3 Differential Comment FINAL DIFF MANUAL Platelet Estimate RARE Platelet Morphology Comment NORMAL Blood Urea Nitrogen 7 MG/DL Creatinine 0.32 MG/DL Random Glucose 85 MG/DL Calcium Level 8.3 MG/DL Magnesium Level 2.1 MG/DL Sodium Level 140 MEQ/L Potassium Level 3.4 MEQ/L Chloride Level 103 MEQ/L Carbon Dioxide Level 28.1 MEQ/L Anion Gap 9 MEQ/L Estimat Glomerular Filtration Rate 211 ML/MIN Culture Results Microbiology Date/Time Source Procedure Growth Status 07/25/17 10:47 Blood Peripheral Aerobic Blood Culture - Preliminary NO GROWTH IN 2 DAYS Resulted 07/25/17 10:47 Blood Peripheral Anaerobic Blood Culture - Preliminary NO GROWTH IN 2 DAYS Resulted 07/25/17 10:40 Blood Line Aerobic Blood Culture - Preliminary NO GROWTH IN 2 DAYS Resulted 07/25/17 10:40 Blood Line Anaerobic Blood Culture - Preliminary NO GROWTH IN 2 DAYS Resulted Administered Medications Medications (Trade) Dose Ordered Sig/Zeynep Route PRN Reason Start Time Stop Time Status Last Admin Dose Admin Carvedilol (Coreg) 3.125 mg DAILY PO 06/29/17 09:00 Future hold 07/28/17 08:47 Prednisone (Deltasone) 5 mg DAILY PO 06/29/17 09:00 07/28/17 08:47 Losartan Potassium (Cozaar) 100 mg DAILY PO 06/29/17 09:00 07/28/17 08:47 Al Hydrox/Mg Hydrox/Simethicone (Mag-Al Plus Susp Liq) 15 ml Q6H PRN PO INDIGESTION 06/28/17 20:45 07/05/17 13:52 Multi-Ingredient Mouthwash/Gargle (Magic Mouthwash Adult Liq) 5 ml QID SWISH-SWAL 06/29/17 13:00 07/26/17 12:41 Ondansetron HCl (Zofran Inj) 4 mg Q6HR PRN IV PUSH nausea 06/29/17 10:15 07/26/17 03:01 Diphenhydramine HCl (Benadryl) 25 mg Q6H PRN PO itching 06/30/17 10:45 07/28/17 09:03 Acetaminophen (Tylenol) 650 mg Q4H PRN PO fever>100.4, PREMED, orpain1-2 07/01/17 10:45 07/27/17 08:44 Melatonin (Melatonin) 5 mg HS PRN PO insomnia 07/02/17 21:00 07/23/17 21:48 Carboxymethylcellulose Sodium (Refresh Tears 0.5% Opth Soln) 1 drop Q6H PRN EACH EYE dry eyes 07/04/17 11:30 07/04/17 19:44 Prochlorperazine Edisylate (Compazine Inj) 10 mg Q8H PRN IV PUSH nausea 07/05/17 10:15 07/18/17 22:34 Albuterol/ Ipratropium (Duoneb Neb) 1 ampule Q6HR NEB PRN NEB SHORTNESS OF BREATH 07/06/17 18:00 07/07/17 20:44 Guaifenesin/ Codeine Phosphate (Robitussin Ac 200-20 Mg/10 ml Liq) 10 ml Q4H PRN PO cough 07/07/17 13:30 07/11/17 21:05 Amlodipine Besylate (Norvasc) 5 mg DAILY PO 07/08/17 19:00 07/28/17 08:47 Citalopram Hydrobromide (CeleXA) 20 mg DAILY PO 07/12/17 09:00 07/28/17 08:47 Acyclovir (Zovirax) 400 mg Q8H PO 07/12/17 02:00 07/28/17 08:47 Metoclopramide HCl 10 mg/Sodium Chloride 52 ml @ 104 mls/hr DAILY@2000 IV 07/14/17 20:00 07/27/17 19:38 Pantoprazole Sodium (Protonix) 40 mg DAILY PO 07/14/17 09:00 07/28/17 08:47 Magnesium Oxide (Mag-Ox) 400 mg BID PO 07/16/17 09:00 07/28/17 08:47 Vancomycin HCl 1750 mg/Sodium Chloride 517.5 ml @ 250 mls/hr Q12H IV 07/17/17 20:00 07/27/17 21:13 Meropenem 2000 mg/ Sodium Chloride 100 ml @ 200 mls/hr Q8H IV 07/18/17 11:00 07/28/17 03:20 Enalaprilat (Vasotec Inj) 1.25 mg Q8H PRN IV PUSH SBP>160, DBP>90 07/18/17 17:15 07/23/17 12:52 Micafungin Sodium 150 mg/Sodium Chloride 100 ml @ 100 mls/hr Q24H IV 07/22/17 22:00 07/27/17 23:23 Filgrastim 480 mcg/Dextrose 51.6 ml @ 100 mls/hr DAILY@14 IV 07/23/17 14:00 07/27/17 13:25 Alprazolam (Xanax) 0.5 mg Q8HR PRN PO anxiety 07/23/17 11:00 07/26/17 12:14 Sodium Chloride (NS Flush) See Protocol DAILY IV FLUSH 07/24/17 09:00 07/27/17 08:43 Potassium Chloride/Sodium Chloride 1,000 ml @ 83 mls/hr Q12H3M IV 07/25/17 08:00 07/27/17 19:39 Lorazepam (Ativan Inj) 0.5 mg Q4HR PRN IV PUSH anxiety 07/25/17 10:45 07/27/17 23:26 Nystatin (Mycostatin Liq) 5 ml QID SWISH-SWAL 07/25/17 13:00 07/28/17 08:46 Tramadol HCl (Ultram) 50 mg Q12H PRN PO pain 3-10 07/26/17 16:45 07/26/17 17:13 Objective Remarks GENERAL: Middle aged female, sitting up on side of bed in nad. SKIN: Warm and dry. red lacy macular rash on back HEAD: Normocephalic. EYES: No injection or drainage. NECK: Supple, trachea midline. CARDIOVASCULAR: Regular rate and rhythm RESPIRATORY: Breath sounds equal bilaterally. No accessory muscle use. GASTROINTESTINAL: Abdomen soft, non-tender, nondistended. EXTREMITIES: No cyanosis. no edema. NEUROLOGICAL: awake and alert. normal speech. moving extremities. 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 + drug eruption on back. I've asked the nurse to hold vanco and notify ID of drug eruption. will give PO benadryl. increase coreg for elevated blood pressures 07/27/17: D30. 2 units pRBC. monitor blood counts. continue neupogen. 07/26/17: D29. Transfuse 1 unit platelets for level of 4K. Have IR evaluate picc. Continue neupogen until counts recovered. Monitor CBC 07/25/17: D28 07/24/17: D27 07/23/17: D26: monitor CBC await counts recovery. consult invasive to remove port. consult vascular for PICC line. 07/22/17: D25. hgb 5, platelets 6, give 2 units pRBC and 1 unit platelets. bone marrow biopsy shows empty bone marrow--no blasts. 07/21/17 D 24 . BM bx is still pending. I have called [facility]. There is a delay in getting the specimen. They willl run today and will call me. BM morphology is pending. Call place to pathologist Dr Melendez. NO TX today. ANC is 0. D/W BMT team at [facility]. willl follow. 07/20/17: D.23. await path from bone marrow biopsy. continue fluids, electrolyte replacement. 07/19/17: D22. bone marrow biopsy today. transfuse 1 unit platelets. start NS+ 40K @84cc/hr continuous infusion. check magnesium. 07/18/17 D21: Blood cultures pending from fever spike yesterday. Transfuse 2 units packed red blood cells for hemoglobin of 6.6. Plan to transfuse a total of 80 mEq potassium for level 3.4 today. Repeat bone marrow biopsy in a.m. 07/17/17: D20:Await CBC today. May have to have vascular place peripheral IV if unable to get blood return from [id number]. Replace Potassium today. Await CT neck. Pt agrees to imaging. 07/16/17: D19. give [address] neck for enlarging subinguinal LN ? continue antibiotics. increase Magnesium to BID. continue IV Potassium. 07/15/17: D18. no transfusion. obtain blood cultures for fever spike last night. give potassium as ordered. monitor closely 07/14/17: D17. no transfusion. give IV potassium. notify cardiology of 6 beat run of V-tach overnight 07/13/17: D16. give 1unit pRBC, 1 unit platelets. facial swelling improved. start diflucan for thrush. 07/12/17: D15: no transfusion. monitor right-sided facial swelling. refusing MRI. continue antibiotics and lemon lozenges. 07/11/17: D14 No transfusion. Patient with right-sided facial swelling 07/10/17: D13 Hgb 7.9. Transfuse 1 unit irradiated PRBC's. K3.1. Transfuse total of 80 meq's to keep K greater than 4.0 per cardiology recs. Give 400mg magnesium oxide 4 mag level of 1.9 07/09/17: D12. hgb 8, platelet count of 7, will transfuse blood and platelets. 07/08/17: D11. continue antibiotics. monitor for fever 07/07/27: D10. give 1 unit pRBC and 1 unit platelets. continue antibiotics. 07/06/17: D9. no transfusion, spiked fever. start antibiotics, obtain cultures, u /a and chest x-ray. 07/05/17: D8. Transfuse 1 unit irradiated platelets today. Start Rydapt 50mg po BID x 14 days. 07/04/17: D7. no transfusion. monitor for fever 07/03/17: D6. 2 units pRBC. last day of chemotherapy 07/02/17: D5. 1 unit platelets. continue chemotherapy. 07/01/17: D4. 1 unit platelets. continue chemotherapy. 06/30/17: D3. Tolerating chemo. No transfusion today. 06/29/17: D2, give 2 units pRBC this AM. start chemotherapy this afternoon. 06/28/17: admission, D1 (2) Neutropenic fever ICD Codes: D70.9 - Neutropenia, unspecified; R50.81 - Fever presenting with conditions classified elsewhere Status: Acute Plan: --BC 07/25: no growth --BC, 07/06 gram negative rods, Klebsiella Pneumoniae --CXR shows mild patchy peripheral lower lung zone. --U/A neg (3) C. difficile diarrhea ICD Codes: A04.72 - Enterocolitis due to Clostridium difficile, not specified as recurrent Plan: --on PO Dificid (4) Thrush ICD Codes: B37.0 - Candidal stomatitis Plan: --magic mouthwash. (5) Ventricular tachycardia (paroxysmal) ICD Codes: I47.2 - Ventricular tachycardia Plan: --seen by Dr. Barker, advises: keep her potassium levels above 4. Try to keep her magnesium levels near 2 or above. Assessment 57y/o female admitted for salvage chemotherapy with FLAG-AKASH for refractory acute myeloid leukemia. 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 awaiting bone marrow recovery. h/o Rheumatoid arthritis. Anxiety disorder. COPD. Depression. Hypercholesterolemia. Hypertension. Irregular heartbeat Attending Statement The exam, history, and the medical decision-making described in the above note were completed with the assistance of the mid-level provider. I reviewed and agree with the findings presented. I attest that I had a [id number]-moze encounter with the patient on the same day, and personally performed and documented my assessment and findings in the medical record. c/o Rash No more fevers. Feels like she is getting better. ID to look for A?B which can cause rash. await BM recovery. Julianna Mcdaniel Jul 28, 2017 09:54 April Fonseca MD Jul 28, 2017 16:12
[2017-07-28] MEDS ORDERED: POTASSIUM CHLORIDE 20 MEQ CONTROLLED RELEASE TAB PO ONE (10:00)
[2017-07-28] MEDS: FILGRASTIM INJ 480 MCG in DEXTROSE 5% IN WATER INJ 50 ML IV SCH ×2 (13:33)
[2017-07-28] MEDS: ENALAPRILAT 1.25 MG/ML VIAL IV PUSH PRN (13:34)
--- NOTE | 2017-07-28 13:48 | HHI.IDPN ---
Subjective Subjective Remarks feels OK afebrile x 2 days She decvelopped non pruritic rash on mostly her trunk ANC remians 0 denioes abdominal pain and has no diarrhea all blood clx are negative Antibiotics micafungin meropenem acyclovir vanco iv - stopped dificid Lines Line sites with no e.o infection Port site ok. Past Medical History Past h/o Kleb pneumo bacteremia in May 2017. Allergies: Coded Allergies: cefepime (Verified Allergy, Severe, HIVES, 06/25/17) latex (Unverified Allergy, Severe, Rash, 06/25/17) Sulfa (Sulfonamide Antibiotics) (Unverified Adverse Reaction, Severe, Vomiting, cramps, 06/25/17) Objective . Vital Signs Date Time Temp Pulse Resp B/P (MAP) Pulse Ox O2 Delivery O2 Flow Rate FiO2 07/28/17 11:01 99.9 105 20 145/106 (119) 96 07/28/17 09:42 Room Air 07/28/17 09:05 146/101 (116) 07/28/17 07:26 98.6 111 20 168/109 (128) 96 07/28/17 06:00 94 07/28/17 05:00 90 07/28/17 04:00 82 07/28/17 03:19 98.2 84 16 132/99 95 07/28/17 03:00 86 07/28/17 02:00 86 07/28/17 01:15 97.9 90 16 113/83 94 07/28/17 01:00 98.2 88 15 112/77 95 07/28/17 01:00 88 07/28/17 00:39 99.0 90 14 140/81 94 07/28/17 00:00 87 07/27/17 23:00 82 07/27/17 22:00 80 07/27/17 21:00 78 07/27/17 20:00 Room Air 07/27/17 20:00 77 07/27/17 19:42 98.5 84 16 116/66 95 07/27/17 19:00 78 07/27/17 18:00 76 07/27/17 17:11 97.9 76 18 103/69 96 07/27/17 17:00 80 07/27/17 16:48 97.8 76 18 100/69 97 07/27/17 16:00 86 07/27/17 15:52 97 Nasal Cannula 2.00 07/27/17 15:48 98.9 79 18 101/73 (82) 97 07/27/17 15:00 76 07/27/17 14:00 76 . Laboratory Tests Test 07/27/17 04:20 07/28/17 05:04 White Blood Count 0.0 TH/MM3 0.0 TH/MM3 Red Blood Count 2.29 MIL/MM3 3.02 MIL/MM3 Hemoglobin 6.5 GM/DL 8.8 GM/DL Hematocrit 18.1 % 24.0 % Mean Corpuscular Volume 79.2 FL 79.6 FL Mean Corpuscular Hemoglobin 28.5 PG 29.0 PG Mean Corpuscular Hemoglobin Concent 36.0 % 36.5 % Red Cell Distribution Width 12.9 % 13.2 % Platelet Count 37 TH/MM3 21 TH/MM3 Mean Platelet Volume 8.8 FL 8.9 FL CBC Comment AUTO DIFF AUTO DIFF Differential Total Cells Counted 10 10 Neutrophils % (Manual) 10 % 10 % Lymphocytes % 90 % 40 % Neutrophils # (Manual) 0.0 TH/MM3 0.0 TH/MM3 Differential Comment FINAL DIFF MANUAL FINAL DIFF MANUAL Platelet Estimate LOW RARE Platelet Morphology Comment NORMAL NORMAL Ovalocytes 1+ Monocytes % 50 % Laboratory Tests Test 07/27/17 04:20 07/28/17 05:04 Blood Urea Nitrogen 9 MG/DL 7 MG/DL Creatinine 0.42 MG/DL 0.32 MG/DL Random Glucose 99 MG/DL 85 MG/DL Calcium Level 8.6 MG/DL 8.3 MG/DL Magnesium Level 2.0 MG/DL 2.1 MG/DL Sodium Level 135 MEQ/L 140 MEQ/L Potassium Level 3.5 MEQ/L 3.4 MEQ/L Chloride Level 97 MEQ/L 103 MEQ/L Carbon Dioxide Level 30.0 MEQ/L 28.1 MEQ/L Anion Gap 8 MEQ/L 9 MEQ/L Estimat Glomerular Filtration Rate 154 ML/MIN 211 ML/MIN Imaging Last Impressions Port Line Revision 07/23/17 0000 Signed Impressions: Service Date/Time: Sunday, July 23, 2017 00:00 - CONCLUSION: Uncomplicated port removal as above. Reinier Castro MD Bone Biopsy CT 07/19/17 1521 Signed Impressions: Service Date/Time: Wednesday, July 19, 2017 15:58 - CONCLUSION: 1. Uncomplicated CT guided bone marrow aspirate. 2. Uncomplicated CT guided bone marrow biopsy. Malcolm Coker MD Chest X-Ray 07/17/17 0000 Signed Impressions: Service Date/Time: Monday, July 17, 2017 13:49 - CONCLUSION: Mild patchy peripheral lower lung zone opacity unchanged. Mild chronic cardiac silhouette enlargement. Logan Walton MD Neck CT 07/16/17 0000 Signed Impressions: Service Date/Time: Monday, July 17, 2017 16:22 - CONCLUSION: Stranding of fat in the submandibular anterior soft tissues extending into the deeper soft tissues anterior to the carotid arteries, worse on the left side. There is also some mild inflammatory changes around subcentimeter lymph nodes along the left carotid lymph node chain. Findings are most characteristic of a cellulitis with some early reactive changes in the left-sided cervical lymph nodes. Jacinto Tello MD Upper Extremity Ultrasound 07/11/17 0000 Signed Impressions: Service Date/Time: Tuesday, July 11, 2017 16:40 - CONCLUSION: Normal examination. Mt Vance MD Head CT 07/08/17 0000 Signed Impressions: Service Date/Time: July 19:55 - CONCLUSION: No acute disease. Malcolm Coker MD Physical Exam CONSTITUTIONAL/GENERAL: Awake and alert, NAD, looks very fatigued previous PORT site covered with dressing, intact SKIN: Diffuse macular- papular rashe involving back, trunk and to less extend b/l thigh Alopecia EYES: Pupils equal and round and reactive. Extraocular motions intact. No scleral icterus. No injection or drainage. Fundi not examined. HEENT: . L submandubular mass resolved, no tenderness CARDIOVASCULAR: Regular rate and rhythm without murmurs, gallops, or rubs. R parotid swelling resolved RESPIRATORY/CHEST: Clear to auscultation. Breath sounds equal bilaterally. No wheezes, rales, or rhonchi. GASTROINTESTINAL: Abdomen soft, non-tender, nondistended. MUSCULOSKELETAL: Extremities without clubbing, cyanosis, no edema. No calf tenderness NEUROLOGICAL: awake and alert Non focal PSYCHIATRIC: Calm. Assessment & Plan Remarks Sepsis in an Immune compromised host. New fevers ? new infection. ? PORT - removed Kleb pneumo bacteremia, recurrent ? source (PORT?) This appears recurrent similar Kleb pneumo bacteremia in May 2017. 2 D echo negative from 06/30 US negative for thrombosys Sialoadenitis/Parotitis: nearly resolved clinically Cold sore ? HSV Possible line infection Severely immunocompromised, neutropenic. AML sp chemo Neutropenia, neutropenic fever - resolved on current abx - persistent absolute neutropenia C.diff - improved diarrhea R sided parotitis, Staph including MRSA is primary consideration: clinically appears to resolvesd New issue: rash - most likley low grade allergic reaction to one of the multiple abx Recs: cont meropenemV (for Kleb pneumo) complete PO difricid (for Cdiff) x 10 days hold vancomycin IV cont oral acyclovir. cont micafungin will cont merrem, and micafungin untill count recovery of will adjust if + blood clx awaiting ANC recovery monitor rash - might need to further adjust abx Brittney Odell MD Jul 28, 2017 13:48
[2017-07-28] MEDS: POTASSIUM CHLORIDE INJ 40 MEQ in SODIUM CHLOR 0.9% 1000 ML INJ 1,000 ML IV SCH (15:45)
[2017-07-28] MEDS: METOCLOPRAMIDE INJ 10 MG in SODIUM CHLORIDE 0.9% INJ 50 ML IV SCH (20:09)
[2017-07-28] MEDS: MELATONIN 5 MG TAB PO PRN (20:14)
[2017-07-28] MEDS: MICAFUNGIN INJ 150 MG in SODIUM CHLORIDE 0.9% INJ 100 ML IV SCH (23:16)
[2017-07-29] VITALS (29 sets, daily range): BP systolic 126–139; BP diastolic 82–93; PULSE 81–128; RESP 16–18; TEMP 97.8–99.2; O2SAT 94–97
[2017-07-29] MEDS: MEROPENEM INJ 2,000 MG in SODIUM CHLORIDE 0.9% INJ 100 ML IV SCH ×3 (03:07→21:05)
[2017-07-29] MEDS: ACYCLOVIR 200 MG CAP PO SCH ×3 (03:07→18:34)
[2017-07-29] MEDS: POTASSIUM CHLORIDE INJ 40 MEQ in SODIUM CHLOR 0.9% 1000 ML INJ 1,000 ML IV SCH (04:38)
[2017-07-29 06:05] LABS: HEMATOCRIT 24.1 % (35.0-46.0); HEMOGLOBIN 8.8 GM/DL (11.6-15.3); MEAN CELL VOLUME 79.8 FL (80.0-100.0); MEAN CORPUSCULAR HEMOGLOBIN 29.3 PG (27.0-34.0); MEAN PLATELET VOLUME 8.8 FL (7.0-11.0); RED BLOOD COUNT 3.02 MIL/MM3 (4.00-5.30); RED CELL DISTRIBUTION WIDTH 13.5 % (11.6-17.2); WHITE BLOOD COUNT 0.1 TH/MM3 (4.0-11.0)
[2017-07-29 06:14] LABS: MEAN CORPUSCULAR HGB CONC 36.7 % (32.0-36.0)
[2017-07-29 06:16] LABS: PLATELET COUNT 15 TH/MM3 (150-450)
[2017-07-29 06:32] LABS: BICARBONATE 26.5 MEQ/L (21.0-32.0); CALCIUM 8.6 MG/DL (8.5-10.1); CREATININE 0.38 MG/DL (0.50-1.00); MAGNESIUM 1.9 MG/DL (1.5-2.5)
[2017-07-29 08:46] LABS: LYMPHOCYTES 100 % (9-44)
[2017-07-29] MEDS: NYSTATIN SUSP 500,000 U/5 ML CUP SWISH-SWAL SCH ×4 (09:00→20:57)
[2017-07-29] MEDS: VANCOMYCIN INJ 1,750 MG in SODIUM CHLORID 0.9% 500 ML INJ 500 ML IV SCH (09:00)
[2017-07-29] MEDS: NYSTAT/DIPHENHY/LIDO MOUTHWASH (Adult) 120ML SWISH-SWAL SCH ×4 (09:00→20:57)
[2017-07-29] MEDS: predniSONE 5 MG TAB PO SCH (09:01)
[2017-07-29] MEDS: amLODIPine BESYLATE 5 MG TAB PO SCH (09:01)
[2017-07-29] MEDS: LOSARTAN 50 MG TAB PO SCH (09:01)
[2017-07-29] MEDS: CARVEDILOL 3.125 MG TAB PO SCH ×2 (09:01→20:57)
[2017-07-29] MEDS: MAGNESIUM OXIDE 400 MG TAB PO SCH ×2 (09:01→20:56)
[2017-07-29] MEDS: PANTOPRAZOLE SOD 40 MG DELAYED RELEASE TAB PO SCH (09:02)
[2017-07-29] MEDS: SODIUM CHLORIDE 0.9% FLUSH 10 ML FLUSH IV FLUSH SCH ×2 (09:02→13:22)
[2017-07-29] MEDS: CITALOPRAM HYDROBROMIDE 20 MG TAB PO SCH (09:02)
--- NOTE | 2017-07-29 10:13 | PD.ONC.PN ---
Subjective Subjective Remarks Patient having fever of 99.2 Still has diffuse rash on her back Denies pruritus Reports she is happy that she has not vomited in 3 days She ate half of a sausage biscuit this morning Objective Data Date Time Temp Pulse Resp B/P (MAP) Pulse Ox O2 Delivery O2 Flow Rate FiO2 07/29/17 08:38 99.2 101 16 138/90 (106) 07/29/17 07:50 Room Air 07/29/17 06:00 92 07/29/17 05:00 90 07/29/17 04:00 92 07/29/17 04:00 99.2 96 16 139/86 (103) 96 07/29/17 03:00 88 07/29/17 02:00 86 07/29/17 01:00 82 07/29/17 00:00 81 07/28/17 23:13 97.5 85 16 132/96 (108) 95 07/28/17 23:00 80 07/28/17 22:00 80 07/28/17 21:00 84 07/28/17 20:04 99.1 87 16 136/91 (106) 94 07/28/17 20:00 Room Air 07/28/17 20:00 91 07/28/17 19:00 88 07/28/17 18:49 90 07/28/17 15:03 96.4 93 18 133/88 (103) 95 07/28/17 11:01 99.9 105 20 145/106 (119) 96 07/29/17 07/29/17 07/29/17 07:00 15:00 23:00 Intake Total 1220 ml Balance 1220 ml Result Diagram: 07/29/17 0445 07/29/17 0445 Laboratory Results Laboratory Tests Test 07/29/17 04:45 White Blood Count 0.1 TH/MM3 Red Blood Count 3.02 MIL/MM3 Hemoglobin 8.8 GM/DL Hematocrit 24.1 % Mean Corpuscular Volume 79.8 FL Mean Corpuscular Hemoglobin 29.3 PG Mean Corpuscular Hemoglobin Concent 36.7 % Red Cell Distribution Width 13.5 % Platelet Count 15 TH/MM3 Mean Platelet Volume 8.8 FL CBC Comment AUTO DIFF Differential Total Cells Counted 1 Lymphocytes % 100 % Neutrophils # (Manual) 0.0 TH/MM3 Differential Comment FINAL DIFF MANUAL Platelet Estimate RARE Platelet Morphology Comment NORMAL Blood Urea Nitrogen 7 MG/DL Creatinine 0.38 MG/DL Random Glucose 101 MG/DL Calcium Level 8.6 MG/DL Magnesium Level 1.9 MG/DL Sodium Level 136 MEQ/L Potassium Level 4.1 MEQ/L Chloride Level 100 MEQ/L Carbon Dioxide Level 26.5 MEQ/L Anion Gap 10 MEQ/L Estimat Glomerular Filtration Rate 173 ML/MIN Administered Medications Medications (Trade) Dose Ordered Sig/Zeynep Route PRN Reason Start Time Stop Time Status Last Admin Dose Admin Prednisone (Deltasone) 5 mg DAILY PO 06/29/17 09:00 07/29/17 09:01 Losartan Potassium (Cozaar) 100 mg DAILY PO 06/29/17 09:00 07/29/17 09:01 Al Hydrox/Mg Hydrox/Simethicone (Mag-Al Plus Susp Liq) 15 ml Q6H PRN PO INDIGESTION 06/28/17 20:45 07/05/17 13:52 Multi-Ingredient Mouthwash/Gargle (Magic Mouthwash Adult Liq) 5 ml QID SWISH-SWAL 06/29/17 13:00 07/28/17 13:00 Ondansetron HCl (Zofran Inj) 4 mg Q6HR PRN IV PUSH nausea 06/29/17 10:15 07/26/17 03:01 Diphenhydramine HCl (Benadryl) 25 mg Q6H PRN PO itching 06/30/17 10:45 07/28/17 14:56 Acetaminophen (Tylenol) 650 mg Q4H PRN PO fever>100.4, PREMED, orpain1-2 07/01/17 10:45 07/27/17 08:44 Melatonin (Melatonin) 5 mg HS PRN PO insomnia 07/02/17 21:00 07/28/17 20:14 Carboxymethylcellulose Sodium (Refresh Tears 0.5% Opth Soln) 1 drop Q6H PRN EACH EYE dry eyes 07/04/17 11:30 07/04/17 19:44 Prochlorperazine Edisylate (Compazine Inj) 10 mg Q8H PRN IV PUSH nausea 07/05/17 10:15 07/18/17 22:34 Albuterol/ Ipratropium (Duoneb Neb) 1 ampule Q6HR NEB PRN NEB SHORTNESS OF BREATH 07/06/17 18:00 07/07/17 20:44 Guaifenesin/ Codeine Phosphate (Robitussin Ac 200-20 Mg/10 ml Liq) 10 ml Q4H PRN PO cough 07/07/17 13:30 07/11/17 21:05 Amlodipine Besylate (Norvasc) 5 mg DAILY PO 07/08/17 19:00 07/29/17 09:01 Citalopram Hydrobromide (CeleXA) 20 mg DAILY PO 07/12/17 09:00 07/29/17 09:02 Acyclovir (Zovirax) 400 mg Q8H PO 07/12/17 02:00 07/29/17 09:01 Metoclopramide HCl 10 mg/Sodium Chloride 52 ml @ 104 mls/hr DAILY@2000 IV 07/14/17 20:00 07/28/17 20:09 Pantoprazole Sodium (Protonix) 40 mg DAILY PO 07/14/17 09:00 07/29/17 09:02 Magnesium Oxide (Mag-Ox) 400 mg BID PO 07/16/17 09:00 07/29/17 09:01 Vancomycin HCl 1750 mg/Sodium Chloride 517.5 ml @ 250 mls/hr Q12H IV 07/17/17 20:00 07/29/17 09:00 Meropenem 2000 mg/ Sodium Chloride 100 ml @ 200 mls/hr Q8H IV 07/18/17 11:00 07/29/17 03:07 Enalaprilat (Vasotec Inj) 1.25 mg Q8H PRN IV PUSH SBP>160, DBP>90 07/18/17 17:15 07/28/17 13:34 Micafungin Sodium 150 mg/Sodium Chloride 100 ml @ 100 mls/hr Q24H IV 07/22/17 22:00 07/28/17 23:16 Filgrastim 480 mcg/Dextrose 51.6 ml @ 100 mls/hr DAILY@14 IV 07/23/17 14:00 07/28/17 13:33 Alprazolam (Xanax) 0.5 mg Q8HR PRN PO anxiety 07/23/17 11:00 07/26/17 12:14 Sodium Chloride (NS Flush) See Protocol DAILY IV FLUSH 07/24/17 09:00 07/29/17 09:02 Sodium Chloride (NS Flush) UNSCH PRN IV FLUSH SEE PROTOCOL TABLE 07/23/17 19:00 07/28/17 14:56 Lorazepam (Ativan Inj) 0.5 mg Q4HR PRN IV PUSH anxiety 07/25/17 10:45 07/27/17 23:26 Nystatin (Mycostatin Liq) 5 ml QID SWISH-SWAL 07/25/17 13:00 07/29/17 09:00 Tramadol HCl (Ultram) 50 mg Q12H PRN PO pain 3-10 07/26/17 16:45 07/26/17 17:13 Carvedilol (Coreg) 3.125 mg Q12HR PO 07/28/17 21:00 07/29/17 09:01 Potassium Chloride 40 meq/ Sodium Chloride 1,020 ml @ 83 mls/hr [id number] IV 07/28/17 15:45 07/29/17 04:38 Objective Remarks GENERAL: Older female sitting up on side of bed with breakfast tray in no obvious distress SKIN: Warm and dry. No oozing from lines. Diffuse rash to back HEAD: Normocephalic. EYES: No injection or drainage. NECK: Supple, trachea midline. CARDIOVASCULAR: Regular rate and rhythm RESPIRATORY: Breath sounds equal bilaterally. No accessory muscle use. GASTROINTESTINAL: Abdomen soft, non-tender, nondistended. EXTREMITIES: No cyanosis. no edema. NEUROLOGICAL: Moving all extremities. Normal speech. Awake and alert. 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 Vanco on hold. Continue Neupogen. Blood pressure better controlled with increased Coreg. No transfusion today. Monitor CBC, BMP and magnesium. Monitor for fevers. 07/28/17: D31. + drug eruption on back. I've asked the nurse to hold vanco and notify ID of drug eruption. will give PO benadryl. increase coreg for elevated blood pressures 07/27/17: D30. 2 units pRBC. monitor blood counts. continue neupogen. 07/26/17: D29. Transfuse 1 unit platelets for level of 4K. Have IR evaluate picc. Continue neupogen until counts recovered. Monitor CBC 07/25/17: D28 07/24/17: D27 07/23/17: D26: monitor CBC await counts recovery. consult invasive to remove port. consult vascular for PICC line. 07/22/17: D25. hgb 5, platelets 6, give 2 units pRBC and 1 unit platelets. bone marrow biopsy shows empty bone marrow--no blasts. 07/21/17 D 24 . BM bx is still pending. I have called [facility]. There is a delay in getting the specimen. They willl run today and will call me. BM morphology is pending. Call place to pathologist Dr Melendez. NO TX today. ANC is 0. D/W BMT team at [facility]. willl follow. 07/20/17: D.23. await path from bone marrow biopsy. continue fluids, electrolyte replacement. 07/19/17: D22. bone marrow biopsy today. transfuse 1 unit platelets. start NS+ 40K @84cc/hr continuous infusion. check magnesium. 07/18/17 D21: Blood cultures pending from fever spike yesterday. Transfuse 2 units packed red blood cells for hemoglobin of 6.6. Plan to transfuse a total of 80 mEq potassium for level 3.4 today. Repeat bone marrow biopsy in a.m. 07/17/17: D20:Await CBC today. May have to have vascular place peripheral IV if unable to get blood return from [id number]. Replace Potassium today. Await CT neck. Pt agrees to imaging. 07/16/17: D19. give [address] neck for enlarging subinguinal LN ? continue antibiotics. increase Magnesium to BID. continue IV Potassium. 07/15/17: D18. no transfusion. obtain blood cultures for fever spike last night. give potassium as ordered. monitor closely 07/14/17: D17. no transfusion. give IV potassium. notify cardiology of 6 beat run of V-tach overnight 07/13/17: D16. give 1unit pRBC, 1 unit platelets. facial swelling improved. start diflucan for thrush. 07/12/17: D15: no transfusion. monitor right-sided facial swelling. refusing MRI. continue antibiotics and lemon lozenges. 07/11/17: D14 No transfusion. Patient with right-sided facial swelling 07/10/17: D13 Hgb 7.9. Transfuse 1 unit irradiated PRBC's. K3.1. Transfuse total of 80 meq's to keep K greater than 4.0 per cardiology recs. Give 400mg magnesium oxide 4 mag level of 1.9 07/09/17: D12. hgb 8, platelet count of 7, will transfuse blood and platelets. 07/08/17: D11. continue antibiotics. monitor for fever 07/07/27: D10. give 1 unit pRBC and 1 unit platelets. continue antibiotics. 07/06/17: D9. no transfusion, spiked fever. start antibiotics, obtain cultures, u /a and chest x-ray. 07/05/17: D8. Transfuse 1 unit irradiated platelets today. Start Rydapt 50mg po BID x 14 days. 07/04/17: D7. no transfusion. monitor for fever 07/03/17: D6. 2 units pRBC. last day of chemotherapy 07/02/17: D5. 1 unit platelets. continue chemotherapy. 07/01/17: D4. 1 unit platelets. continue chemotherapy. 06/30/17: D3. Tolerating chemo. No transfusion today. 06/29/17: D2, give 2 units pRBC this AM. start chemotherapy this afternoon. 06/28/17: admission, D1 (2) Neutropenic fever ICD Codes: D70.9 - Neutropenia, unspecified; R50.81 - Fever presenting with conditions classified elsewhere Status: Acute Plan: --BC 07/25: no growth --BC, 07/06 gram negative rods, Klebsiella Pneumoniae --CXR shows mild patchy peripheral lower lung zone. --U/A neg (3) C. difficile diarrhea ICD Codes: A04.72 - Enterocolitis due to Clostridium difficile, not specified as recurrent Status: Resolved Plan: --Completed course of Dificid (4) Thrush ICD Codes: B37.0 - Candidal stomatitis Plan: --magic mouthwash. (5) Ventricular tachycardia (paroxysmal) ICD Codes: I47.2 - Ventricular tachycardia Plan: --seen by Dr. Barker, advises: keep her potassium levels above 4. Try to keep her magnesium levels near 2 or above. Assessment 57y/o female admitted for salvage chemotherapy with FLAG-AKASH for refractory acute myeloid leukemia. 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 awaiting bone marrow recovery. h/o Rheumatoid arthritis. Anxiety disorder. COPD. Depression. Hypercholesterolemia. Hypertension. Irregular heartbeat Attending Statement The exam, history, and the medical decision-making described in the above note were completed with the assistance of the mid-level provider. I reviewed and agree with the findings presented. I attest that I had a [id number] encounter with the patient on the same day, and personally performed and documented my assessment and findings in the medical record. No fever/ N/V appetite is improving Still has rash. Continue neupogen Await BM recovery. Amina Castellanos Jul 29, 2017 10:13 April Fonseca MD Jul 29, 2017 23:13
[2017-07-29] MEDS: NS + KCL 40 MEQ INJ 1,000 ML IV SCH ×2 (13:22→22:31)
[2017-07-29] MEDS: FILGRASTIM INJ 480 MCG in DEXTROSE 5% IN WATER INJ 50 ML IV SCH ×2 (16:51)
[2017-07-29] MEDS: METOCLOPRAMIDE INJ 10 MG in SODIUM CHLORIDE 0.9% INJ 50 ML IV SCH (20:59)
[2017-07-29] MEDS: ALPRAZolam 0.5 MG TAB PO PRN (21:04)
[2017-07-29] MEDS: MICAFUNGIN INJ 150 MG in SODIUM CHLORIDE 0.9% INJ 100 ML IV SCH (22:31)
[2017-07-30] VITALS (29 sets, daily range): BP systolic 109–152; BP diastolic 77–105; PULSE 72–101; RESP 14–18; TEMP 97–99.1; O2SAT 95–98
[2017-07-30] MEDS: ACYCLOVIR 200 MG CAP PO SCH ×3 (01:39→18:03)
[2017-07-30] MEDS: LORazepam 2 MG/ML VIAL IV PUSH PRN ×2 (01:43→23:41)
[2017-07-30] MEDS: MEROPENEM INJ 2,000 MG in SODIUM CHLORIDE 0.9% INJ 100 ML IV SCH ×3 (04:51→18:03)
[2017-07-30 06:10] LABS: HEMATOCRIT 23.4 % (35.0-46.0); HEMOGLOBIN 8.4 GM/DL (11.6-15.3); MEAN CELL VOLUME 79.5 FL (80.0-100.0); MEAN CORPUSCULAR HEMOGLOBIN 28.7 PG (27.0-34.0); MEAN PLATELET VOLUME 8.4 FL (7.0-11.0); RED BLOOD COUNT 2.94 MIL/MM3 (4.00-5.30); RED CELL DISTRIBUTION WIDTH 13.3 % (11.6-17.2); WHITE BLOOD COUNT 0.1 TH/MM3 (4.0-11.0)
[2017-07-30 06:15] LABS: MEAN CORPUSCULAR HGB CONC 36.1 % (32.0-36.0)
[2017-07-30 06:19] LABS: PLATELET COUNT 9 TH/MM3 (150-450)
[2017-07-30 06:34] LABS: ALBUMIN 2.4 GM/DL (3.4-5.0); AST (GOT) 71 U/L (15-37); BICARBONATE 27.4 MEQ/L (21.0-32.0); BLOOD UREA NITROGEN 9 MG/DL (7-18); CALCIUM 8.4 MG/DL (8.5-10.1); CHLORIDE 102 MEQ/L (98-107); GLOMERULAR FILTRATION RATE 163 ML/MIN (>89); GLUCOSE,RANDOM 86 MG/DL (74-106); SODIUM (NA) 137 MEQ/L (136-145)
[2017-07-30 06:36] LABS: ALT (GPT) 47 U/L (10-53)
[2017-07-30 06:38] LABS: ALKALINE PHOSPHATASE 110 U/L (45-117); TOTAL BILIRUBIN ADULT 1.4 MG/DL (0.2-1.0); TOTAL PROTEIN 6.2 GM/DL (6.4-8.2)
[2017-07-30] MEDS: LOSARTAN 50 MG TAB PO SCH (08:46)
[2017-07-30] MEDS: NYSTATIN SUSP 500,000 U/5 ML CUP SWISH-SWAL SCH ×4 (08:46→20:25)
[2017-07-30] MEDS: NYSTAT/DIPHENHY/LIDO MOUTHWASH (Adult) 120ML SWISH-SWAL SCH ×4 (08:47→20:25)
[2017-07-30] MEDS: CARVEDILOL 3.125 MG TAB PO SCH ×2 (08:47→20:26)
[2017-07-30] MEDS: amLODIPine BESYLATE 5 MG TAB PO SCH (08:47)
[2017-07-30] MEDS: MAGNESIUM OXIDE 400 MG TAB PO SCH ×2 (08:47→20:25)
[2017-07-30] MEDS: predniSONE 5 MG TAB PO SCH (08:47)
[2017-07-30] MEDS: PANTOPRAZOLE SOD 40 MG DELAYED RELEASE TAB PO SCH (08:47)
[2017-07-30] MEDS: CITALOPRAM HYDROBROMIDE 20 MG TAB PO SCH (08:47)
[2017-07-30] MEDS: NS + KCL 40 MEQ INJ 1,000 ML IV SCH ×2 (08:47→22:31)
[2017-07-30 09:38] LABS: LYMPHOCYTES 33 % (9-44); MONOCYTES 67 % (0-8)
[2017-07-30 09:39] LABS: OVALOCYTES 1+ (NORMAL)
[2017-07-30] MEDS: diphenhydrAMINE HCL 25 MG CAP PO PRN (12:40)
[2017-07-30] MEDS: ACETAMINOPHEN 325 MG TAB PO PRN (12:40)
[2017-07-30] MEDS: FILGRASTIM INJ 480 MCG in DEXTROSE 5% IN WATER INJ 50 ML IV SCH ×2 (15:16)
--- NOTE | 2017-07-30 16:03 | PD.ONC.PN ---
Subjective Subjective Remarks Feels better Rash has resolved. Objective Data Date Time Temp Pulse Resp B/P (MAP) Pulse Ox O2 Delivery O2 Flow Rate FiO2 07/30/17 15:00 75 07/30/17 14:00 78 07/30/17 13:54 98.3 82 18 123/93 97 07/30/17 13:15 98.6 81 18 109/77 97 07/30/17 13:00 86 07/30/17 12:00 98.7 87 14 121/81 (94) 98 07/30/17 12:00 84 07/30/17 11:00 89 07/30/17 10:00 96 07/30/17 09:00 100 07/30/17 09:00 Room Air 07/30/17 08:00 98.7 99 16 152/105 (121) 95 07/30/17 08:00 100 07/30/17 07:00 101 07/30/17 06:00 92 07/30/17 05:00 96 07/30/17 04:52 99.0 95 16 128/84 (99) 96 07/30/17 04:00 88 07/30/17 03:00 90 07/30/17 02:00 88 07/30/17 01:00 88 07/30/17 00:41 99.1 88 16 135/80 (98) 97 07/30/17 00:00 90 07/29/17 23:00 82 07/29/17 22:00 84 07/29/17 21:00 100 07/29/17 20:51 97.9 92 16 134/93 (107) 96 07/29/17 20:50 96 Room Air 07/29/17 20:00 94 07/29/17 19:00 90 07/29/17 18:00 84 07/29/17 17:12 97.8 86 18 130/82 (98) 97 07/29/17 17:00 92 07/30/17 07/30/17 07/30/17 06:59 14:59 22:59 Intake Total 1104 ml 166 ml Balance 1104 ml 166 ml Result Diagram: 07/30/17 0455 07/30/17 0455 Laboratory Results Laboratory Tests Test 07/30/17 04:55 White Blood Count 0.1 TH/MM3 Red Blood Count 2.94 MIL/MM3 Hemoglobin 8.4 GM/DL Hematocrit 23.4 % Mean Corpuscular Volume 79.5 FL Mean Corpuscular Hemoglobin 28.7 PG Mean Corpuscular Hemoglobin Concent 36.1 % Red Cell Distribution Width 13.3 % Platelet Count 9 TH/MM3 Mean Platelet Volume 8.4 FL CBC Comment AUTO DIFF Differential Total Cells Counted 3 Lymphocytes % 33 % Monocytes % 67 % Neutrophils # (Manual) 0.0 TH/MM3 Differential Comment FINAL DIFF MANUAL Platelet Estimate RARE Platelet Morphology Comment NORMAL Ovalocytes 1+ Blood Urea Nitrogen 9 MG/DL Creatinine 0.40 MG/DL Random Glucose 86 MG/DL Total Protein 6.2 GM/DL Albumin 2.4 GM/DL Calcium Level 8.4 MG/DL Magnesium Level 2.0 MG/DL Alkaline Phosphatase 110 U/L Aspartate Amino Transf (AST/SGOT) 71 U/L Alanine Aminotransferase (ALT/SGPT) 47 U/L Total Bilirubin 1.4 MG/DL Sodium Level 137 MEQ/L Potassium Level 3.9 MEQ/L Chloride Level 102 MEQ/L Carbon Dioxide Level 27.4 MEQ/L Anion Gap 8 MEQ/L Estimat Glomerular Filtration Rate 163 ML/MIN Administered Medications Medications (Trade) Dose Ordered Sig/Zeynep Route PRN Reason Start Time Stop Time Status Last Admin Dose Admin Prednisone (Deltasone) 5 mg DAILY PO 06/29/17 09:00 07/30/17 08:47 Losartan Potassium (Cozaar) 100 mg DAILY PO 06/29/17 09:00 07/30/17 08:46 Al Hydrox/Mg Hydrox/Simethicone (Mag-Al Plus Susp Liq) 15 ml Q6H PRN PO INDIGESTION 06/28/17 20:45 07/05/17 13:52 Multi-Ingredient Mouthwash/Gargle (Magic Mouthwash Adult Liq) 5 ml QID SWISH-SWAL 06/29/17 13:00 07/28/17 13:00 Ondansetron HCl (Zofran Inj) 4 mg Q6HR PRN IV PUSH nausea 06/29/17 10:15 07/26/17 03:01 Diphenhydramine HCl (Benadryl) 25 mg Q6H PRN PO itching 06/30/17 10:45 07/28/17 14:56 Acetaminophen (Tylenol) 650 mg Q4H PRN PO fever>100.4, PREMED, orpain1-2 07/01/17 10:45 07/27/17 08:44 Melatonin (Melatonin) 5 mg HS PRN PO insomnia 07/02/17 21:00 07/28/17 20:14 Carboxymethylcellulose Sodium (Refresh Tears 0.5% Opth Soln) 1 drop Q6H PRN EACH EYE dry eyes 07/04/17 11:30 07/04/17 19:44 Prochlorperazine Edisylate (Compazine Inj) 10 mg Q8H PRN IV PUSH nausea 07/05/17 10:15 07/18/17 22:34 Albuterol/ Ipratropium (Duoneb Neb) 1 ampule Q6HR NEB PRN NEB SHORTNESS OF BREATH 07/06/17 18:00 07/07/17 20:44 Guaifenesin/ Codeine Phosphate (Robitussin Ac 200-20 Mg/10 ml Liq) 10 ml Q4H PRN PO cough 07/07/17 13:30 07/11/17 21:05 Amlodipine Besylate (Norvasc) 5 mg DAILY PO 07/08/17 19:00 07/30/17 08:47 Citalopram Hydrobromide (CeleXA) 20 mg DAILY PO 07/12/17 09:00 07/30/17 08:47 Acyclovir (Zovirax) 400 mg Q8H PO 07/12/17 02:00 07/30/17 08:46 Metoclopramide HCl 10 mg/Sodium Chloride 52 ml @ 104 mls/hr DAILY@2000 IV 07/14/17 20:00 07/29/17 20:59 Pantoprazole Sodium (Protonix) 40 mg DAILY PO 07/14/17 09:00 07/30/17 08:47 Magnesium Oxide (Mag-Ox) 400 mg BID PO 07/16/17 09:00 07/30/17 08:47 Vancomycin HCl 1750 mg/Sodium Chloride 517.5 ml @ 250 mls/hr Q12H IV 07/17/17 20:00 Future Hold 07/29/17 09:00 Meropenem 2000 mg/ Sodium Chloride 100 ml @ 200 mls/hr Q8H IV 07/18/17 11:00 07/30/17 10:47 Enalaprilat (Vasotec Inj) 1.25 mg Q8H PRN IV PUSH SBP>160, DBP>90 07/18/17 17:15 07/28/17 13:34 Micafungin Sodium 150 mg/Sodium Chloride 100 ml @ 100 mls/hr Q24H IV 07/22/17 22:00 07/29/17 22:31 Filgrastim 480 mcg/Dextrose 51.6 ml @ 100 mls/hr DAILY@14 IV 07/23/17 14:00 07/30/17 15:16 Alprazolam (Xanax) 0.5 mg Q8HR PRN PO anxiety 07/23/17 11:00 07/29/17 21:04 Sodium Chloride (NS Flush) See Protocol DAILY IV FLUSH 07/24/17 09:00 07/29/17 13:22 Heparin Sodium (Porcine) (Heparin Central Flush) See Protocol DAILY IV FLUSH 07/24/17 09:00 07/30/17 08:46 Sodium Chloride (NS Flush) UNSCH PRN IV FLUSH SEE PROTOCOL TABLE 07/23/17 19:00 07/28/17 14:56 Lorazepam (Ativan Inj) 0.5 mg Q4HR PRN IV PUSH anxiety 07/25/17 10:45 07/30/17 01:43 Nystatin (Mycostatin Liq) 5 ml QID SWISH-SWAL 07/25/17 13:00 07/30/17 12:40 Acetaminophen (Tylenol) 650 mg Q4H PRN PO SEE LABEL COMMENTS 07/26/17 12:00 07/30/17 12:40 Tramadol HCl (Ultram) 50 mg Q12H PRN PO pain 3-10 07/26/17 16:45 07/26/17 17:13 Carvedilol (Coreg) 3.125 mg Q12HR PO 07/28/17 21:00 07/30/17 08:47 Potassium Chloride/Sodium Chloride 1,000 ml @ 83 mls/hr Q12H3M IV 07/29/17 10:45 07/30/17 08:47 Diphenhydramine HCl (Benadryl) 25 mg Q4H PRN PO BLOOD PRODUCT 07/30/17 12:45 07/30/17 12:40 Objective Remarks GENERAL: Well-nourished, well-developed patient. SKIN: Warm and dry. HEAD: Normocephalic. EYES: No scleral icterus. No injection or drainage. NECK: Supple, trachea midline. No JVD or lymphadenopathy. LYMPHATIC: No adenopathy. CARDIOVASCULAR: Regular rate and rhythm without murmurs. RESPIRATORY: Breath sounds equal bilaterally. No accessory muscle use. GASTROINTESTINAL: Abdomen soft, non-tender, nondistended. EXTREMITIES: No cyanosis, or edema. NEUROLOGICAL: No obvious focal deficit. Awake, alert, and oriented x3. 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 Plat tx today. ANC 0 . But no more fever. Continue neupogen. Extensive d/w pt. AWait BM recovery. 07/29/17: D32. Vanco on hold. Continue Neupogen. Blood pressure better controlled with increased Coreg. No transfusion today. Monitor CBC, BMP and magnesium. Monitor for fevers. 07/28/17: D31. + drug eruption on back. I've asked the nurse to hold vanco and notify ID of drug eruption. will give PO benadryl. increase coreg for elevated blood pressures 07/27/17: D30. 2 units pRBC. monitor blood counts. continue neupogen. 07/26/17: D29. Transfuse 1 unit platelets for level of 4K. Have IR evaluate picc. Continue neupogen until counts recovered. Monitor CBC 07/25/17: D28 07/24/17: D27 07/23/17: D26: monitor CBC await counts recovery. consult invasive to remove port. consult vascular for PICC line. 07/22/17: D25. hgb 5, platelets 6, give 2 units pRBC and 1 unit platelets. bone marrow biopsy shows empty bone marrow--no blasts. 07/21/17 D 24 . BM bx is still pending. I have called [facility]. There is a delay in getting the specimen. They willl run today and will call me. BM morphology is pending. Call place to pathologist Dr Melendez. NO TX today. ANC is 0. D/W BMT team at [facility]. willl follow. 07/20/17: D.23. await path from bone marrow biopsy. continue fluids, electrolyte replacement. 07/19/17: D22. bone marrow biopsy today. transfuse 1 unit platelets. start NS+ 40K @84cc/hr continuous infusion. check magnesium. 07/18/17 D21: Blood cultures pending from fever spike yesterday. Transfuse 2 units packed red blood cells for hemoglobin of 6.6. Plan to transfuse a total of 80 mEq potassium for level 3.4 today. Repeat bone marrow biopsy in a.m. 07/17/17: D20:Await CBC today. May have to have vascular place peripheral IV if unable to get blood return from [id number]. Replace Potassium today. Await CT neck. Pt agrees to imaging. 07/16/17: D19. give [address] neck for enlarging subinguinal LN ? continue antibiotics. increase Magnesium to BID. continue IV Potassium. 07/15/17: D18. no transfusion. obtain blood cultures for fever spike last night. give potassium as ordered. monitor closely 07/14/17: D17. no transfusion. give IV potassium. notify cardiology of 6 beat run of V-tach overnight 07/13/17: D16. give 1unit pRBC, 1 unit platelets. facial swelling improved. start diflucan for thrush. 07/12/17: D15: no transfusion. monitor right-sided facial swelling. refusing MRI. continue antibiotics and lemon lozenges. 07/11/17: D14 No transfusion. Patient with right-sided facial swelling 07/10/17: D13 Hgb 7.9. Transfuse 1 unit irradiated PRBC's. K3.1. Transfuse total of 80 meq's to keep K greater than 4.0 per cardiology recs. Give 400mg magnesium oxide 4 mag level of 1.9 07/09/17: D12. hgb 8, platelet count of 7, will transfuse blood and platelets. 07/08/17: D11. continue antibiotics. monitor for fever 07/07/27: D10. give 1 unit pRBC and 1 unit platelets. continue antibiotics. 07/06/17: D9. no transfusion, spiked fever. start antibiotics, obtain cultures, u /a and chest x-ray. 07/05/17: D8. Transfuse 1 unit irradiated platelets today. Start Rydapt 50mg po BID x 14 days. 07/04/17: D7. no transfusion. monitor for fever 07/03/17: D6. 2 units pRBC. last day of chemotherapy 07/02/17: D5. 1 unit platelets. continue chemotherapy. 07/01/17: D4. 1 unit platelets. continue chemotherapy. 06/30/17: D3. Tolerating chemo. No transfusion today. 06/29/17: D2, give 2 units pRBC this AM. start chemotherapy this afternoon. 06/28/17: admission, D1 (2) Neutropenic fever ICD Codes: D70.9 - Neutropenia, unspecified; R50.81 - Fever presenting with conditions classified elsewhere Status: Acute Plan: --BC 07/25: no growth --BC, 07/06 gram negative rods, Klebsiella Pneumoniae --CXR shows mild patchy peripheral lower lung zone. --U/A neg (3) C. difficile diarrhea ICD Codes: A04.72 - Enterocolitis due to Clostridium difficile, not specified as recurrent Status: Resolved Plan: --Completed course of Dificid (4) Thrush ICD Codes: B37.0 - Candidal stomatitis Plan: --magic mouthwash. (5) Ventricular tachycardia (paroxysmal) ICD Codes: I47.2 - Ventricular tachycardia Plan: --seen by Dr. Barker, advises: keep her potassium levels above 4. Try to keep her magnesium levels near 2 or above. Assessment 57y/o female admitted for salvage chemotherapy with FLAG-AKASH for refractory acute myeloid leukemia. 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 awaiting bone marrow recovery. h/o Rheumatoid arthritis. Anxiety disorder. COPD. Depression. Hypercholesterolemia. Hypertension. Irregular heartbeat April Fonseca MD Jul 30, 2017 16:03
--- NOTE | 2017-07-30 18:03 | HHI.IDPN ---
Subjective Subjective Remarks feels OK afebrile x 2 days No pruritis rash 8improving ANC remians 0 denioes abdominal pain and has no diarrhea all blood clx are negative Antibiotics micafungin meropenem acyclovir vanco iv - stopped dificid Lines Line sites with no e.o infection Port site ok. Past Medical History Past h/o Kleb pneumo bacteremia in May 2017. Allergies: Coded Allergies: cefepime (Verified Allergy, Severe, HIVES, 06/25/17) latex (Unverified Allergy, Severe, Rash, 06/25/17) Sulfa (Sulfonamide Antibiotics) (Unverified Adverse Reaction, Severe, Vomiting, cramps, 06/25/17) Objective . Vital Signs Date Time Temp Pulse Resp B/P (MAP) Pulse Ox O2 Delivery O2 Flow Rate FiO2 07/30/17 17:00 74 07/30/17 16:00 98 07/30/17 16:00 97.0 75 18 131/97 (108) 98 07/30/17 15:00 75 07/30/17 14:00 78 07/30/17 13:54 98.3 82 18 123/93 97 07/30/17 13:15 98.6 81 18 109/77 97 07/30/17 13:00 86 07/30/17 12:00 98.7 87 14 121/81 (94) 98 07/30/17 12:00 84 07/30/17 11:00 89 07/30/17 10:00 96 07/30/17 09:00 100 07/30/17 09:00 Room Air 07/30/17 08:00 98.7 99 16 152/105 (121) 95 07/30/17 08:00 100 07/30/17 07:00 101 07/30/17 06:00 92 07/30/17 05:00 96 07/30/17 04:52 99.0 95 16 128/84 (99) 96 07/30/17 04:00 88 07/30/17 03:00 90 07/30/17 02:00 88 07/30/17 01:00 88 07/30/17 00:41 99.1 88 16 135/80 (98) 97 07/30/17 00:00 90 07/29/17 23:00 82 07/29/17 22:00 84 07/29/17 21:00 100 07/29/17 20:51 97.9 92 16 134/93 (107) 96 07/29/17 20:50 96 Room Air 07/29/17 20:00 94 07/29/17 19:00 90 07/29/17 18:00 84 07/30/17 07/30/17 07/31/17 15:00 23:00 07:00 Intake Total 166 ml Balance 166 ml Platelets 166 ml . Laboratory Tests Test 07/29/17 04:45 07/30/17 04:55 White Blood Count 0.1 TH/MM3 0.1 TH/MM3 Red Blood Count 3.02 MIL/MM3 2.94 MIL/MM3 Hemoglobin 8.8 GM/DL 8.4 GM/DL Hematocrit 24.1 % 23.4 % Mean Corpuscular Volume 79.8 FL 79.5 FL Mean Corpuscular Hemoglobin 29.3 PG 28.7 PG Mean Corpuscular Hemoglobin Concent 36.7 % 36.1 % Red Cell Distribution Width 13.5 % 13.3 % Platelet Count 15 TH/MM3 9 TH/MM3 Mean Platelet Volume 8.8 FL 8.4 FL CBC Comment AUTO DIFF AUTO DIFF Differential Total Cells Counted 1 3 Lymphocytes % 100 % 33 % Neutrophils # (Manual) 0.0 TH/MM3 0.0 TH/MM3 Differential Comment FINAL DIFF MANUAL FINAL DIFF MANUAL Platelet Estimate RARE RARE Platelet Morphology Comment NORMAL NORMAL Monocytes % 67 % Ovalocytes 1+ Laboratory Tests Test 07/29/17 04:45 07/30/17 04:55 Blood Urea Nitrogen 7 MG/DL 9 MG/DL Creatinine 0.38 MG/DL 0.40 MG/DL Random Glucose 101 MG/DL 86 MG/DL Calcium Level 8.6 MG/DL 8.4 MG/DL Magnesium Level 1.9 MG/DL 2.0 MG/DL Sodium Level 136 MEQ/L 137 MEQ/L Potassium Level 4.1 MEQ/L 3.9 MEQ/L Chloride Level 100 MEQ/L 102 MEQ/L Carbon Dioxide Level 26.5 MEQ/L 27.4 MEQ/L Anion Gap 10 MEQ/L 8 MEQ/L Estimat Glomerular Filtration Rate 173 ML/MIN 163 ML/MIN Total Protein 6.2 GM/DL Albumin 2.4 GM/DL Alkaline Phosphatase 110 U/L Aspartate Amino Transf (AST/SGOT) 71 U/L Alanine Aminotransferase (ALT/SGPT) 47 U/L Total Bilirubin 1.4 MG/DL Imaging Last Impressions Port Line Revision 07/23/17 0000 Signed Impressions: Service Date/Time: Sunday, July 23, 2017 00:00 - CONCLUSION: Uncomplicated port removal as above. Reinier Castro MD Bone Biopsy CT 07/19/17 1521 Signed Impressions: Service Date/Time: Wednesday, July 19, 2017 15:58 - CONCLUSION: 1. Uncomplicated CT guided bone marrow aspirate. 2. Uncomplicated CT guided bone marrow biopsy. Malcolm Coker MD Chest X-Ray 07/17/17 0000 Signed Impressions: Service Date/Time: Monday, July 17, 2017 13:49 - CONCLUSION: Mild patchy peripheral lower lung zone opacity unchanged. Mild chronic cardiac silhouette enlargement. Logan Walton MD Neck CT 07/16/17 0000 Signed Impressions: Service Date/Time: Monday, July 17, 2017 16:22 - CONCLUSION: Stranding of fat in the submandibular anterior soft tissues extending into the deeper soft tissues anterior to the carotid arteries, worse on the left side. There is also some mild inflammatory changes around subcentimeter lymph nodes along the left carotid lymph node chain. Findings are most characteristic of a cellulitis with some early reactive changes in the left-sided cervical lymph nodes. Jacinto Tello MD Upper Extremity Ultrasound 07/11/17 0000 Signed Impressions: Service Date/Time: Tuesday, July 11, 2017 16:40 - CONCLUSION: Normal examination. Mt Vance MD Head CT 07/08/17 0000 Signed Impressions: Service Date/Time: July 19:55 - CONCLUSION: No acute disease. Malcolm Ckoer MD Physical Exam CONSTITUTIONAL/GENERAL: Awake and alert, NAD, looks very fatigued previous PORT site covered with dressing, intact SKIN: Most of macular- papular rash appear to resolve Alopecia EYES: Pupils equal and round and reactive. Extraocular motions intact. No scleral icterus. No injection or drainage. Fundi not examined. HEENT: . L submandibular - residual non tender mass, much smaller CARDIOVASCULAR: Regular rate and rhythm without murmurs, gallops, or rubs. R parotid swelling resolved RESPIRATORY/CHEST: Clear to auscultation. Breath sounds equal bilaterally. No wheezes, rales, or rhonchi. GASTROINTESTINAL: Abdomen soft, non-tender, nondistended. MUSCULOSKELETAL: Extremities without clubbing, cyanosis, no edema. No calf tenderness NEUROLOGICAL: awake and alert Non focal PSYCHIATRIC: Calm. Assessment & Plan Remarks Sepsis in an Immune compromised host. New fevers ? new infection. ? PORT - removed Kleb pneumo bacteremia, recurrent ? source (PORT?) This appears recurrent similar Kleb pneumo bacteremia in May 2017. 2 D echo negative from 06/30 US negative for thrombosys Sialoadenitis/Parotitis: nearly resolved clinically Cold sore ? HSV Possible line infection Severely immunocompromised, neutropenic. AML sp chemo Neutropenia, neutropenic fever - resolved on current abx - persistent absolute neutropenia C.diff - improved diarrhea R sided parotitis, Staph including MRSA is primary consideration: clinically appears to resolvesd New issue: rash - most likley low grade allergic reaction to one of the multiple abx Recs: cont meropenemV (for Kleb pneumo) complete PO difricid (for Cdiff) x 10 days will add vancomycin to allergies list cont oral acyclovir. cont micafungin will cont merrem, and micafungin untill count recovery of will adjust if + blood clx awaiting ANC recovery monitor fever, clinically Brittney Odell MD Jul 30, 2017 18:03
[2017-07-30] MEDS: MICAFUNGIN INJ 150 MG in SODIUM CHLORIDE 0.9% INJ 100 ML IV SCH (22:28)
[2017-07-31] VITALS (13 sets, daily range): BP systolic 109–144; BP diastolic 77–100; PULSE 75–105; RESP 16–18; TEMP 97.8–99.5; O2SAT 94–97
[2017-07-31] MEDS: ACYCLOVIR 200 MG CAP PO SCH ×3 (03:56→20:39)
[2017-07-31] MEDS: MEROPENEM INJ 2,000 MG in SODIUM CHLORIDE 0.9% INJ 100 ML IV SCH ×3 (03:56→20:39)
[2017-07-31 06:44] LABS: HEMATOCRIT 21.4 % (35.0-46.0); HEMOGLOBIN 7.7 GM/DL (11.6-15.3); MEAN CELL VOLUME 79.4 FL (80.0-100.0); MEAN CORPUSCULAR HEMOGLOBIN 28.8 PG (27.0-34.0); MEAN PLATELET VOLUME 7.6 FL (7.0-11.0); PLATELET COUNT 25 TH/MM3 (150-450); RED BLOOD COUNT 2.69 MIL/MM3 (4.00-5.30); RED CELL DISTRIBUTION WIDTH 13.2 % (11.6-17.2); WHITE BLOOD COUNT 0.1 TH/MM3 (4.0-11.0)
[2017-07-31 06:46] LABS: MEAN CORPUSCULAR HGB CONC 36.3 % (32.0-36.0)
[2017-07-31 07:13] LABS: BICARBONATE 23.4 MEQ/L (21.0-32.0); CALCIUM 7.4 MG/DL (8.5-10.1); CALCIUM-PROTEIN CORRECTED 8.5 MG/DL (8.5-10.1); CREATININE 0.25 MG/DL (0.50-1.00); MAGNESIUM 1.8 MG/DL (1.5-2.5); TOTAL BILIRUBIN ADULT 1.1 MG/DL (0.2-1.0); TOTAL PROTEIN 5.2 GM/DL (6.4-8.2)
[2017-07-31] MEDS: SODIUM CHLORIDE 0.9% FLUSH 10 ML FLUSH IV FLUSH SCH (09:00)
[2017-07-31] MEDS: NYSTAT/DIPHENHY/LIDO MOUTHWASH (Adult) 120ML SWISH-SWAL SCH ×4 (09:00→20:41)
[2017-07-31] MEDS: NYSTATIN SUSP 500,000 U/5 ML CUP SWISH-SWAL SCH ×4 (09:22→20:41)
[2017-07-31] MEDS: LOSARTAN 50 MG TAB PO SCH (09:22)
[2017-07-31] MEDS: predniSONE 5 MG TAB PO SCH (09:23)
[2017-07-31] MEDS: PANTOPRAZOLE SOD 40 MG DELAYED RELEASE TAB PO SCH (09:23)
[2017-07-31] MEDS: CARVEDILOL 3.125 MG TAB PO SCH ×2 (09:23→20:40)
[2017-07-31] MEDS: CITALOPRAM HYDROBROMIDE 20 MG TAB PO SCH (09:23)
[2017-07-31] MEDS: MAGNESIUM OXIDE 400 MG TAB PO SCH ×2 (09:23→20:40)
[2017-07-31] MEDS: amLODIPine BESYLATE 5 MG TAB PO SCH (09:23)
[2017-07-31 09:35] LABS: LYMPHOCYTES 40 % (9-44); MONOCYTES 20 % (0-8); POLYS (SEG NEUTROPHILS) 40 % (16-70)
--- NOTE | 2017-07-31 11:13 | PD.ONC.PN ---
Subjective Subjective Remarks Afebrile Patient reports she had a difficult time sleeping last night Has not had nausea and 3 days Walked the sharp yesterday Objective Data Date Time Temp Pulse Resp B/P (MAP) Pulse Ox O2 Delivery O2 Flow Rate FiO2 07/31/17 08:30 98.4 100 18 144/100 (115) 95 07/31/17 04:00 99.5 85 16 124/81 (95) 97 07/31/17 03:00 82 07/31/17 02:00 78 07/31/17 01:00 78 07/31/17 00:04 77 07/31/17 00:00 98.2 75 16 127/77 (94) 94 07/30/17 23:00 72 07/30/17 22:00 74 07/30/17 21:00 76 07/30/17 20:30 97.2 89 18 144/89 (107) 95 07/30/17 20:22 Room Air 07/30/17 20:01 75 07/30/17 19:00 92 07/30/17 18:00 76 07/30/17 17:00 74 07/30/17 16:00 98 07/30/17 16:00 97.0 75 18 131/97 (108) 98 07/30/17 15:00 75 07/30/17 14:00 78 07/30/17 13:54 98.3 82 18 123/93 97 07/30/17 13:15 98.6 81 18 109/77 97 07/30/17 13:00 86 07/30/17 12:00 98.7 87 14 121/81 (94) 98 07/30/17 12:00 84 Result Diagram: 07/31/17 0400 07/31/17 0400 Laboratory Results Laboratory Tests Test 07/31/17 04:00 White Blood Count 0.1 TH/MM3 Red Blood Count 2.69 MIL/MM3 Hemoglobin 7.7 GM/DL Hematocrit 21.4 % Mean Corpuscular Volume 79.4 FL Mean Corpuscular Hemoglobin 28.8 PG Mean Corpuscular Hemoglobin Concent 36.3 % Red Cell Distribution Width 13.2 % Platelet Count 25 TH/MM3 Mean Platelet Volume 7.6 FL CBC Comment AUTO DIFF Differential Total Cells Counted 15 Neutrophils % (Manual) 40 % Lymphocytes % 40 % Monocytes % 20 % Neutrophils # (Manual) 0.0 TH/MM3 Differential Comment FINAL DIFF MANUAL Platelet Estimate LOW Platelet Morphology Comment NORMAL Blood Urea Nitrogen 8 MG/DL Creatinine 0.25 MG/DL Random Glucose 69 MG/DL Total Protein 5.2 GM/DL Albumin 2.0 GM/DL Calcium Level 7.4 MG/DL Magnesium Level 1.8 MG/DL Alkaline Phosphatase 83 U/L Aspartate Amino Transf (AST/SGOT) 52 U/L Alanine Aminotransferase (ALT/SGPT) 40 U/L Total Bilirubin 1.1 MG/DL Sodium Level 140 MEQ/L Potassium Level 3.5 MEQ/L Chloride Level 109 MEQ/L Carbon Dioxide Level 23.4 MEQ/L Anion Gap 8 MEQ/L Estimat Glomerular Filtration Rate 281 ML/MIN Protein Corrected Calcium 8.5 MG/DL Administered Medications Medications (Trade) Dose Ordered Sig/Zeynep Route PRN Reason Start Time Stop Time Status Last Admin Dose Admin Prednisone (Deltasone) 5 mg DAILY PO 06/29/17 09:00 07/31/17 09:23 Losartan Potassium (Cozaar) 100 mg DAILY PO 06/29/17 09:00 07/31/17 09:22 Al Hydrox/Mg Hydrox/Simethicone (Mag-Al Plus Susp Liq) 15 ml Q6H PRN PO INDIGESTION 06/28/17 20:45 07/05/17 13:52 Multi-Ingredient Mouthwash/Gargle (Magic Mouthwash Adult Liq) 5 ml QID SWISH-SWAL 06/29/17 13:00 07/28/17 13:00 Ondansetron HCl (Zofran Inj) 4 mg Q6HR PRN IV PUSH nausea 06/29/17 10:15 07/26/17 03:01 Diphenhydramine HCl (Benadryl) 25 mg Q6H PRN PO itching 06/30/17 10:45 07/28/17 14:56 Acetaminophen (Tylenol) 650 mg Q4H PRN PO fever>100.4, PREMED, orpain1-2 07/01/17 10:45 07/27/17 08:44 Melatonin (Melatonin) 5 mg HS PRN PO insomnia 07/02/17 21:00 07/28/17 20:14 Carboxymethylcellulose Sodium (Refresh Tears 0.5% Opth Soln) 1 drop Q6H PRN EACH EYE dry eyes 07/04/17 11:30 07/04/17 19:44 Prochlorperazine Edisylate (Compazine Inj) 10 mg Q8H PRN IV PUSH nausea 07/05/17 10:15 07/18/17 22:34 Albuterol/ Ipratropium (Duoneb Neb) 1 ampule Q6HR NEB PRN NEB SHORTNESS OF BREATH 07/06/17 18:00 07/07/17 20:44 Guaifenesin/ Codeine Phosphate (Robitussin Ac 200-20 Mg/10 ml Liq) 10 ml Q4H PRN PO cough 07/07/17 13:30 07/11/17 21:05 Amlodipine Besylate (Norvasc) 5 mg DAILY PO 07/08/17 19:00 07/31/17 09:23 Citalopram Hydrobromide (CeleXA) 20 mg DAILY PO 07/12/17 09:00 07/31/17 09:23 Acyclovir (Zovirax) 400 mg Q8H PO 07/12/17 02:00 07/31/17 09:22 Pantoprazole Sodium (Protonix) 40 mg DAILY PO 07/14/17 09:00 07/31/17 09:23 Magnesium Oxide (Mag-Ox) 400 mg BID PO 07/16/17 09:00 07/31/17 09:23 Vancomycin HCl 1750 mg/Sodium Chloride 517.5 ml @ 250 mls/hr Q12H IV 07/17/17 20:00 Future Hold 07/29/17 09:00 Meropenem 2000 mg/ Sodium Chloride 100 ml @ 200 mls/hr Q8H IV 07/18/17 11:00 07/31/17 03:56 Enalaprilat (Vasotec Inj) 1.25 mg Q8H PRN IV PUSH SBP>160, DBP>90 07/18/17 17:15 07/28/17 13:34 Micafungin Sodium 150 mg/Sodium Chloride 100 ml @ 100 mls/hr Q24H IV 07/22/17 22:00 07/30/17 22:28 Filgrastim 480 mcg/Dextrose 51.6 ml @ 100 mls/hr DAILY@14 IV 07/23/17 14:00 07/30/17 15:16 Alprazolam (Xanax) 0.5 mg Q8HR PRN PO anxiety 07/23/17 11:00 07/29/17 21:04 Sodium Chloride (NS Flush) See Protocol DAILY IV FLUSH 07/24/17 09:00 07/29/17 13:22 Heparin Sodium (Porcine) (Heparin Central Flush) See Protocol DAILY IV FLUSH 07/24/17 09:00 07/30/17 08:46 Sodium Chloride (NS Flush) UNSCH PRN IV FLUSH SEE PROTOCOL TABLE 07/23/17 19:00 07/28/17 14:56 Lorazepam (Ativan Inj) 0.5 mg Q4HR PRN IV PUSH anxiety 07/25/17 10:45 07/30/17 23:41 Nystatin (Mycostatin Liq) 5 ml QID SWISH-SWAL 07/25/17 13:00 07/31/17 09:22 Acetaminophen (Tylenol) 650 mg Q4H PRN PO SEE LABEL COMMENTS 07/26/17 12:00 07/30/17 12:40 Tramadol HCl (Ultram) 50 mg Q12H PRN PO pain 3-10 07/26/17 16:45 07/26/17 17:13 Carvedilol (Coreg) 3.125 mg Q12HR PO 07/28/17 21:00 07/31/17 09:23 Potassium Chloride/Sodium Chloride 1,000 ml @ 83 mls/hr Q12H3M IV 07/29/17 10:45 07/30/17 22:31 Diphenhydramine HCl (Benadryl) 25 mg Q4H PRN PO BLOOD PRODUCT 07/30/17 12:45 07/30/17 12:40 Objective Remarks GENERAL: Older female resting in bed in no obvious distress SKIN: Warm and dry. No oozing from lines. PICC line to right upper extremity with minimal bruising at insertion classification counselor: Normocephalic. EYES: No injection or drainage. NECK: Supple, trachea midline. CARDIOVASCULAR: Regular rate and rhythm RESPIRATORY: Breath sounds equal bilaterally. No accessory muscle use. GASTROINTESTINAL: Abdomen soft, non-tender, nondistended. EXTREMITIES: No cyanosis. no edema. NEUROLOGICAL: Moving all extremities. Normal speech. Awake and alert. 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 No transfusion today. Continue Neupogen. Monitor CBC. Await bone marrow recovery. 07/30/17 D33 . Plat tx today. ANC 0 . But no more fever. Continue neupogen. Extensive d/w pt. AWait BM recovery. 07/29/17: D32. Vanco on hold. Continue Neupogen. Blood pressure better controlled with increased Coreg. No transfusion today. Monitor CBC, BMP and magnesium. Monitor for fevers. 07/28/17: D31. + drug eruption on back. I've asked the nurse to hold vanco and notify ID of drug eruption. will give PO benadryl. increase coreg for elevated blood pressures 07/27/17: D30. 2 units pRBC. monitor blood counts. continue neupogen. 07/26/17: D29. Transfuse 1 unit platelets for level of 4K. Have IR evaluate picc. Continue neupogen until counts recovered. Monitor CBC 07/25/17: D28 07/24/17: D27 07/23/17: D26: monitor CBC await counts recovery. consult invasive to remove port. consult vascular for PICC line. 07/22/17: D25. hgb 5, platelets 6, give 2 units pRBC and 1 unit platelets. bone marrow biopsy shows empty bone marrow--no blasts. 07/21/17 D 24 . BM bx is still pending. I have called [facility]. There is a delay in getting the specimen. They willl run today and will call me. BM morphology is pending. Call place to pathologist Dr Melendez. NO TX today. ANC is 0. D/W BMT team at [facility]. willl follow. 07/20/17: D.23. await path from bone marrow biopsy. continue fluids, electrolyte replacement. 07/19/17: D22. bone marrow biopsy today. transfuse 1 unit platelets. start NS+ 40K @84cc/hr continuous infusion. check magnesium. 07/18/17 D21: Blood cultures pending from fever spike yesterday. Transfuse 2 units packed red blood cells for hemoglobin of 6.6. Plan to transfuse a total of 80 mEq potassium for level 3.4 today. Repeat bone marrow biopsy in a.m. 07/17/17: D20:Await CBC today. May have to have vascular place peripheral IV if unable to get blood return from [id number]. Replace Potassium today. Await CT neck. Pt agrees to imaging. 07/16/17: D19. give [address] neck for enlarging subinguinal LN ? continue antibiotics. increase Magnesium to BID. continue IV Potassium. 07/15/17: D18. no transfusion. obtain blood cultures for fever spike last night. give potassium as ordered. monitor closely 07/14/17: D17. no transfusion. give IV potassium. notify cardiology of 6 beat run of V-tach overnight 07/13/17: D16. give 1unit pRBC, 1 unit platelets. facial swelling improved. start diflucan for thrush. 07/12/17: D15: no transfusion. monitor right-sided facial swelling. refusing MRI. continue antibiotics and lemon lozenges. 07/11/17: D14 No transfusion. Patient with right-sided facial swelling 07/10/17: D13 Hgb 7.9. Transfuse 1 unit irradiated PRBC's. K3.1. Transfuse total of 80 meq's to keep K greater than 4.0 per cardiology recs. Give 400mg magnesium oxide 4 mag level of 1.9 07/09/17: D12. hgb 8, platelet count of 7, will transfuse blood and platelets. 07/08/17: D11. continue antibiotics. monitor for fever 07/07/27: D10. give 1 unit pRBC and 1 unit platelets. continue antibiotics. 07/06/17: D9. no transfusion, spiked fever. start antibiotics, obtain cultures, u /a and chest x-ray. 07/05/17: D8. Transfuse 1 unit irradiated platelets today. Start Rydapt 50mg po BID x 14 days. 07/04/17: D7. no transfusion. monitor for fever 07/03/17: D6. 2 units pRBC. last day of chemotherapy 07/02/17: D5. 1 unit platelets. continue chemotherapy. 07/01/17: D4. 1 unit platelets. continue chemotherapy. 06/30/17: D3. Tolerating chemo. No transfusion today. 06/29/17: D2, give 2 units pRBC this AM. start chemotherapy this afternoon. 06/28/17: admission, D1 (2) Neutropenic fever ICD Codes: D70.9 - Neutropenia, unspecified; R50.81 - Fever presenting with conditions classified elsewhere Status: Acute Plan: --BC 07/25: no growth --BC, 07/06 gram negative rods, Klebsiella Pneumoniae --CXR shows mild patchy peripheral lower lung zone. --U/A neg (3) C. difficile diarrhea ICD Codes: A04.72 - Enterocolitis due to Clostridium difficile, not specified as recurrent Status: Resolved Plan: --Completed course of Dificid (4) Thrush ICD Codes: B37.0 - Candidal stomatitis Plan: --magic mouthwash. (5) Ventricular tachycardia (paroxysmal) ICD Codes: I47.2 - Ventricular tachycardia Plan: --seen by Dr. Barker, advises: keep her potassium levels above 4. Try to keep her magnesium levels near 2 or above. Assessment 57y/o female admitted for salvage chemotherapy with FLAG-AKASH for refractory acute myeloid leukemia. 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 awaiting bone marrow recovery. h/o Rheumatoid arthritis. Anxiety disorder. COPD. Depression. Hypercholesterolemia. Hypertension. Irregular heartbeat Attending Statement The exam, history, and the medical decision-making described in the above note were completed with the assistance of the mid-level provider. I reviewed and agree with the findings presented. I attest that I had a [id number] encounter with the patient on the same day, and personally performed and documented my assessment and findings in the medical record. 57 yoF with relapsed refractory AML admitted for FLAG-AKASH. Awaiting count recovery. On Neupogen. Klebsiella pneumonia, neutropenic fever on micafungin and merrem. Amina Castellanos Jul 31, 2017 11:13 Valeria Emmanuel MD Jul 31, 2017 21:23
[2017-07-31] MEDS: NS + KCL 40 MEQ INJ 1,000 ML IV SCH (14:13)
[2017-07-31] MEDS: FILGRASTIM INJ 480 MCG in DEXTROSE 5% IN WATER INJ 50 ML IV SCH ×2 (14:13)
[2017-07-31] MEDS: ALPRAZolam 0.5 MG TAB PO PRN (20:40)
[2017-07-31] MEDS: MICAFUNGIN INJ 150 MG in SODIUM CHLORIDE 0.9% INJ 100 ML IV SCH (23:25)
[2017-07-31] MEDS: LORazepam 2 MG/ML VIAL IV PUSH PRN (23:30)
[2017-08-01] VITALS (11 sets, daily range): BP systolic 101–139; BP diastolic 73–96; PULSE 76–96; RESP 16–18; TEMP 97.9–98.8; O2SAT 96–97
[2017-08-01] MEDS: ACYCLOVIR 200 MG CAP PO SCH ×3 (04:59→22:00)
[2017-08-01] MEDS: MEROPENEM INJ 2,000 MG in SODIUM CHLORIDE 0.9% INJ 100 ML IV SCH ×3 (04:59→20:29)
[2017-08-01] MEDS: NS + KCL 40 MEQ INJ 1,000 ML IV SCH (05:00)
[2017-08-01 06:05] LABS: HEMOGLOBIN 7.9 GM/DL (11.6-15.3); MEAN CELL VOLUME 79.3 FL (80.0-100.0); MEAN CORPUSCULAR HEMOGLOBIN 28.6 PG (27.0-34.0); MEAN PLATELET VOLUME 7.5 FL (7.0-11.0); RED BLOOD COUNT 2.78 MIL/MM3 (4.00-5.30); RED CELL DISTRIBUTION WIDTH 13.3 % (11.6-17.2); WHITE BLOOD COUNT 0.1 TH/MM3 (4.0-11.0)
[2017-08-01 06:08] LABS: MEAN CORPUSCULAR HGB CONC 36.1 % (32.0-36.0)
[2017-08-01 06:10] LABS: PLATELET COUNT 18 TH/MM3 (150-450)
[2017-08-01 07:11] LABS: BANDS 20 % (0-6); LYMPHOCYTES 47 % (9-44); MONOCYTES 7 % (0-8); POLYS (SEG NEUTROPHILS) 27 % (16-70)
[2017-08-01 07:47] LABS: ALBUMIN 2.5 GM/DL (3.4-5.0); ALKALINE PHOSPHATASE 102 U/L (45-117); ALT (GPT) 50 U/L (10-53); AST (GOT) 56 U/L (15-37); BICARBONATE 26.9 MEQ/L (21.0-32.0); BLOOD UREA NITROGEN 9 MG/DL (7-18); CALCIUM 8.4 MG/DL (8.5-10.1); CHLORIDE 102 MEQ/L (98-107); CREATININE 0.35 MG/DL (0.50-1.00); GLOMERULAR FILTRATION RATE 191 ML/MIN (>89); GLUCOSE,RANDOM 93 MG/DL (74-106); MAGNESIUM 2.1 MG/DL (1.5-2.5); SODIUM (NA) 137 MEQ/L (136-145); TOTAL BILIRUBIN ADULT 1.3 MG/DL (0.2-1.0); TOTAL PROTEIN 6.1 GM/DL (6.4-8.2)
[2017-08-01] MEDS: SODIUM CHLORIDE 0.9% FLUSH 10 ML FLUSH IV FLUSH SCH (09:00)
[2017-08-01] MEDS: NYSTAT/DIPHENHY/LIDO MOUTHWASH (Adult) 120ML SWISH-SWAL SCH ×4 (09:00→20:29)
[2017-08-01] MEDS: NYSTATIN SUSP 500,000 U/5 ML CUP SWISH-SWAL SCH ×4 (09:57→20:29)
[2017-08-01] MEDS: CITALOPRAM HYDROBROMIDE 20 MG TAB PO SCH (09:58)
[2017-08-01] MEDS: predniSONE 5 MG TAB PO SCH (09:58)
[2017-08-01] MEDS: LOSARTAN 50 MG TAB PO SCH (09:58)
[2017-08-01] MEDS: MAGNESIUM OXIDE 400 MG TAB PO SCH ×2 (09:58→20:29)
[2017-08-01] MEDS: amLODIPine BESYLATE 5 MG TAB PO SCH (09:58)
[2017-08-01] MEDS: CARVEDILOL 3.125 MG TAB PO SCH ×2 (09:58→20:29)
[2017-08-01] MEDS: PANTOPRAZOLE SOD 40 MG DELAYED RELEASE TAB PO SCH (09:58)
--- NOTE | 2017-08-01 10:49 | PD.ONC.PN ---
Subjective Subjective Remarks Afebrile overnight Patient slept somewhat better last night No acute complaints Objective Data Date Time Temp Pulse Resp B/P (MAP) Pulse Ox O2 Delivery O2 Flow Rate FiO2 08/01/17 09:31 97.9 96 16 139/93 (108) 97 08/01/17 04:41 98.4 85 123/82 (96) 96 08/01/17 04:03 88 08/01/17 00:00 76 08/01/17 00:00 98.8 76 18 117/78 (91) 97 07/31/17 20:57 97.8 85 18 129/92 (104) 97 07/31/17 20:19 84 07/31/17 17:00 98.1 105 18 127/93 (104) 97 07/31/17 12:41 98.5 88 18 109/78 (88) 96 07/31/17 12:20 85 08/01/17 08/01/17 08/01/17 07:00 15:00 23:00 Intake Total 100 ml Balance 100 ml Result Diagram: 08/01/17 0400 08/01/17 0400 Laboratory Results Laboratory Tests Test 08/01/17 04:00 White Blood Count 0.1 TH/MM3 Red Blood Count 2.78 MIL/MM3 Hemoglobin 7.9 GM/DL Hematocrit 22.0 % Mean Corpuscular Volume 79.3 FL Mean Corpuscular Hemoglobin 28.6 PG Mean Corpuscular Hemoglobin Concent 36.1 % Red Cell Distribution Width 13.3 % Platelet Count 18 TH/MM3 Mean Platelet Volume 7.5 FL CBC Comment AUTO DIFF Differential Total Cells Counted 15 Neutrophils % (Manual) 27 % Band Neutrophils % 20 % Lymphocytes % 47 % Monocytes % 7 % Neutrophils # (Manual) 0.0 TH/MM3 Differential Comment FINAL DIFF MANUAL Toxic Granulation Platelet Estimate RARE Platelet Morphology Comment NORMAL Blood Urea Nitrogen 9 MG/DL Creatinine 0.35 MG/DL Random Glucose 93 MG/DL Total Protein 6.1 GM/DL Albumin 2.5 GM/DL Calcium Level 8.4 MG/DL Magnesium Level 2.1 MG/DL Alkaline Phosphatase 102 U/L Aspartate Amino Transf (AST/SGOT) 56 U/L Alanine Aminotransferase (ALT/SGPT) 50 U/L Total Bilirubin 1.3 MG/DL Sodium Level 137 MEQ/L Potassium Level 4.0 MEQ/L Chloride Level 102 MEQ/L Carbon Dioxide Level 26.9 MEQ/L Anion Gap 8 MEQ/L Estimat Glomerular Filtration Rate 191 ML/MIN Administered Medications Medications (Trade) Dose Ordered Sig/Zeynep Route PRN Reason Start Time Stop Time Status Last Admin Dose Admin Prednisone (Deltasone) 5 mg DAILY PO 06/29/17 09:00 08/01/17 09:58 Losartan Potassium (Cozaar) 100 mg DAILY PO 06/29/17 09:00 08/01/17 09:58 Al Hydrox/Mg Hydrox/Simethicone (Mag-Al Plus Susp Liq) 15 ml Q6H PRN PO INDIGESTION 06/28/17 20:45 07/05/17 13:52 Multi-Ingredient Mouthwash/Gargle (Magic Mouthwash Adult Liq) 5 ml QID SWISH-SWAL 06/29/17 13:00 07/28/17 13:00 Ondansetron HCl (Zofran Inj) 4 mg Q6HR PRN IV PUSH nausea 06/29/17 10:15 07/26/17 03:01 Diphenhydramine HCl (Benadryl) 25 mg Q6H PRN PO itching 06/30/17 10:45 07/28/17 14:56 Acetaminophen (Tylenol) 650 mg Q4H PRN PO fever>100.4, PREMED, orpain1-2 07/01/17 10:45 07/27/17 08:44 Melatonin (Melatonin) 5 mg HS PRN PO insomnia 07/02/17 21:00 07/28/17 20:14 Carboxymethylcellulose Sodium (Refresh Tears 0.5% Opth Soln) 1 drop Q6H PRN EACH EYE dry eyes 07/04/17 11:30 07/04/17 19:44 Prochlorperazine Edisylate (Compazine Inj) 10 mg Q8H PRN IV PUSH nausea 07/05/17 10:15 07/18/17 22:34 Albuterol/ Ipratropium (Duoneb Neb) 1 ampule Q6HR NEB PRN NEB SHORTNESS OF BREATH 07/06/17 18:00 07/07/17 20:44 Guaifenesin/ Codeine Phosphate (Robitussin Ac 200-20 Mg/10 ml Liq) 10 ml Q4H PRN PO cough 07/07/17 13:30 07/11/17 21:05 Amlodipine Besylate (Norvasc) 5 mg DAILY PO 07/08/17 19:00 08/01/17 09:58 Citalopram Hydrobromide (CeleXA) 20 mg DAILY PO 07/12/17 09:00 08/01/17 09:58 Pantoprazole Sodium (Protonix) 40 mg DAILY PO 07/14/17 09:00 08/01/17 09:58 Magnesium Oxide (Mag-Ox) 400 mg BID PO 07/16/17 09:00 08/01/17 09:58 Vancomycin HCl 1750 mg/Sodium Chloride 517.5 ml @ 250 mls/hr Q12H IV 07/17/17 20:00 Future Hold 07/29/17 09:00 Enalaprilat (Vasotec Inj) 1.25 mg Q8H PRN IV PUSH SBP>160, DBP>90 07/18/17 17:15 07/28/17 13:34 Filgrastim 480 mcg/Dextrose 51.6 ml @ 100 mls/hr DAILY@14 IV 07/23/17 14:00 07/31/17 14:13 Alprazolam (Xanax) 0.5 mg Q8HR PRN PO anxiety 07/23/17 11:00 07/31/17 20:40 Sodium Chloride (NS Flush) See Protocol DAILY IV FLUSH 07/24/17 09:00 07/29/17 13:22 Heparin Sodium (Porcine) (Heparin Central Flush) See Protocol DAILY IV FLUSH 07/24/17 09:00 07/30/17 08:46 Sodium Chloride (NS Flush) UNSCH PRN IV FLUSH SEE PROTOCOL TABLE 07/23/17 19:00 07/28/17 14:56 Lorazepam (Ativan Inj) 0.5 mg Q4HR PRN IV PUSH anxiety 07/25/17 10:45 07/31/17 23:30 Nystatin (Mycostatin Liq) 5 ml QID SWISH-SWAL 07/25/17 13:00 08/01/17 09:57 Acetaminophen (Tylenol) 650 mg Q4H PRN PO SEE LABEL COMMENTS 07/26/17 12:00 07/30/17 12:40 Tramadol HCl (Ultram) 50 mg Q12H PRN PO pain 3-10 07/26/17 16:45 07/26/17 17:13 Carvedilol (Coreg) 3.125 mg Q12HR PO 07/28/17 21:00 08/01/17 09:58 Potassium Chloride/Sodium Chloride 1,000 ml @ 83 mls/hr Q12H3M IV 07/29/17 10:45 08/01/17 05:00 Diphenhydramine HCl (Benadryl) 25 mg Q4H PRN PO BLOOD PRODUCT 07/30/17 12:45 07/30/17 12:40 Micafungin Sodium 150 mg/Sodium Chloride 100 ml @ 100 mls/hr Q24H IV 07/31/17 21:00 07/31/17 23:25 Acyclovir (Zovirax) 400 mg Q8H PO 08/01/17 06:00 08/01/17 04:59 Meropenem 2000 mg/ Sodium Chloride 100 ml @ 200 mls/hr Q8H IV 08/01/17 05:00 08/01/17 04:59 Objective Remarks GENERAL: Older female resting in bed in no obvious distress SKIN: Warm and dry. No oozing from lines. PICC line to right upper extremity with minimal bruising at insertion vp site: Normocephalic. EYES: No injection or drainage. NECK: Supple, trachea midline. CARDIOVASCULAR: Regular rate and rhythm RESPIRATORY: Breath sounds equal bilaterally. No accessory muscle use. GASTROINTESTINAL: Abdomen soft, non-tender, nondistended. EXTREMITIES: No cyanosis. no edema. NEUROLOGICAL: Moving all extremities. Normal speech. Awake and alert. 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 Monitor CBC. No transfusion today. Continue Neupogen. 07/31/17: D34. No transfusion today. Continue Neupogen. Monitor CBC. Await bone marrow recovery. 07/30/17 D33 . Plat tx today. ANC 0 . But no more fever. Continue neupogen. Extensive d/w pt. AWait BM recovery. 07/29/17: D32. Vanco on hold. Continue Neupogen. Blood pressure better controlled with increased Coreg. No transfusion today. Monitor CBC, BMP and magnesium. Monitor for fevers. 07/28/17: D31. + drug eruption on back. I've asked the nurse to hold vanco and notify ID of drug eruption. will give PO benadryl. increase coreg for elevated blood pressures 07/27/17: D30. 2 units pRBC. monitor blood counts. continue neupogen. 07/26/17: D29. Transfuse 1 unit platelets for level of 4K. Have IR evaluate picc. Continue neupogen until counts recovered. Monitor CBC 07/25/17: D28 07/24/17: D27 07/23/17: D26: monitor CBC await counts recovery. consult invasive to remove port. consult vascular for PICC line. 07/22/17: D25. hgb 5, platelets 6, give 2 units pRBC and 1 unit platelets. bone marrow biopsy shows empty bone marrow--no blasts. 07/21/17 D 24 . BM bx is still pending. I have called [facility]. There is a delay in getting the specimen. They willl run today and will call me. BM morphology is pending. Call place to pathologist Dr Melendez. NO TX today. ANC is 0. D/W BMT team at [facility]. willl follow. 07/20/17: D.23. await path from bone marrow biopsy. continue fluids, electrolyte replacement. 07/19/17: D22. bone marrow biopsy today. transfuse 1 unit platelets. start NS+ 40K @84cc/hr continuous infusion. check magnesium. 07/18/17 D21: Blood cultures pending from fever spike yesterday. Transfuse 2 units packed red blood cells for hemoglobin of 6.6. Plan to transfuse a total of 80 mEq potassium for level 3.4 today. Repeat bone marrow biopsy in a.m. 07/17/17: D20:Await CBC today. May have to have vascular place peripheral IV if unable to get blood return from [id number]. Replace Potassium today. Await CT neck. Pt agrees to imaging. 07/16/17: D19. give [address] neck for enlarging subinguinal LN ? continue antibiotics. increase Magnesium to BID. continue IV Potassium. 07/15/17: D18. no transfusion. obtain blood cultures for fever spike last night. give potassium as ordered. monitor closely 07/14/17: D17. no transfusion. give IV potassium. notify cardiology of 6 beat run of V-tach overnight 07/13/17: D16. give 1unit pRBC, 1 unit platelets. facial swelling improved. start diflucan for thrush. 07/12/17: D15: no transfusion. monitor right-sided facial swelling. refusing MRI. continue antibiotics and lemon lozenges. 07/11/17: D14 No transfusion. Patient with right-sided facial swelling 07/10/17: D13 Hgb 7.9. Transfuse 1 unit irradiated PRBC's. K3.1. Transfuse total of 80 meq's to keep K greater than 4.0 per cardiology recs. Give 400mg magnesium oxide 4 mag level of 1.9 07/09/17: D12. hgb 8, platelet count of 7, will transfuse blood and platelets. 07/08/17: D11. continue antibiotics. monitor for fever 07/07/27: D10. give 1 unit pRBC and 1 unit platelets. continue antibiotics. 07/06/17: D9. no transfusion, spiked fever. start antibiotics, obtain cultures, u /a and chest x-ray. 07/05/17: D8. Transfuse 1 unit irradiated platelets today. Start Rydapt 50mg po BID x 14 days. 07/04/17: D7. no transfusion. monitor for fever 07/03/17: D6. 2 units pRBC. last day of chemotherapy 07/02/17: D5. 1 unit platelets. continue chemotherapy. 07/01/17: D4. 1 unit platelets. continue chemotherapy. 06/30/17: D3. Tolerating chemo. No transfusion today. 06/29/17: D2, give 2 units pRBC this AM. start chemotherapy this afternoon. 06/28/17: admission, D1 (2) Neutropenic fever ICD Codes: D70.9 - Neutropenia, unspecified; R50.81 - Fever presenting with conditions classified elsewhere Status: Acute Plan: --BC 07/25: no growth --BC, 07/06 gram negative rods, Klebsiella Pneumoniae --CXR shows mild patchy peripheral lower lung zone. --U/A neg (3) C. difficile diarrhea ICD Codes: A04.72 - Enterocolitis due to Clostridium difficile, not specified as recurrent Status: Resolved Plan: --Completed course of Dificid (4) Thrush ICD Codes: B37.0 - Candidal stomatitis Plan: --magic mouthwash. (5) Ventricular tachycardia (paroxysmal) ICD Codes: I47.2 - Ventricular tachycardia Plan: --seen by Dr. Barker, advises: keep her potassium levels above 4. Try to keep her magnesium levels near 2 or above. Assessment 57y/o female admitted for salvage chemotherapy with FLAG-AKASH for refractory acute myeloid leukemia. 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 awaiting bone marrow recovery. h/o Rheumatoid arthritis. Anxiety disorder. COPD. Depression. Hypercholesterolemia. Hypertension. Irregular heartbeat Attending Statement The exam, history, and the medical decision-making described in the above note were completed with the assistance of the mid-level provider. I reviewed and agree with the findings presented. I attest that I had a [id number] encounter with the patient on the same day, and personally performed and documented my assessment and findings in the medical record. 57 yoF with relapsed, refractory AML. Currently inpatient for FLAG-AKASH reinduction. Afebrile. continue to follow counts. Amina Castellanos Aug 01, 2017 10:49 Valeria Emmanuel MD Aug 01, 2017 18:50
[2017-08-01] MEDS: FILGRASTIM INJ 480 MCG in DEXTROSE 5% IN WATER INJ 50 ML IV SCH ×2 (16:34)
[2017-08-01] MEDS: ALPRAZolam 0.5 MG TAB PO PRN (21:59)
[2017-08-01] MEDS: MICAFUNGIN INJ 150 MG in SODIUM CHLORIDE 0.9% INJ 100 ML IV SCH (22:00)
[2017-08-02] VITALS (22 sets, daily range): BP systolic 96–139; BP diastolic 62–91; PULSE 65–106; RESP 16–18; TEMP 97.6–98.8; O2SAT 96–99
[2017-08-02] MEDS: LORazepam 2 MG/ML VIAL IV PUSH PRN ×2 (00:22→23:19)
[2017-08-02] MEDS: NS + KCL 40 MEQ INJ 1,000 ML IV SCH (00:23)
[2017-08-02] MEDS: ACYCLOVIR 200 MG CAP PO SCH ×3 (05:26→21:27)
[2017-08-02] MEDS: MEROPENEM INJ 2,000 MG in SODIUM CHLORIDE 0.9% INJ 100 ML IV SCH ×3 (05:26→20:51)
[2017-08-02 06:45] LABS: BICARBONATE 26.8 MEQ/L (21.0-32.0); CALCIUM 8.5 MG/DL (8.5-10.1); CREATININE 0.43 MG/DL (0.50-1.00); MAGNESIUM 2.3 MG/DL (1.5-2.5)
[2017-08-02 07:03] LABS: HEMATOCRIT 21.4 % (35.0-46.0); HEMOGLOBIN 7.6 GM/DL (11.6-15.3); MEAN CORPUSCULAR HEMOGLOBIN 28.2 PG (27.0-34.0); MEAN CORPUSCULAR HGB CONC 35.6 % (32.0-36.0); MEAN PLATELET VOLUME 7.4 FL (7.0-11.0); RED BLOOD COUNT 2.71 MIL/MM3 (4.00-5.30); RED CELL DISTRIBUTION WIDTH 13.1 % (11.6-17.2); WHITE BLOOD COUNT 0.2 TH/MM3 (4.0-11.0)
[2017-08-02 07:35] LABS: PLATELET COUNT 10 TH/MM3 (150-450)
[2017-08-02 08:55] LABS: BANDS 30 % (0-6); LYMPHOCYTES 30 % (9-44); MONOCYTES 30 % (0-8); NEUTROPHIL # MANUAL DIFF 0.1 TH/MM3 (1.8-7.7); POLYS (SEG NEUTROPHILS) 10 % (16-70)
[2017-08-02 08:56] LABS: ROULEAUX PRESENT (NORMAL)
[2017-08-02] MEDS: CARVEDILOL 3.125 MG TAB PO SCH ×2 (09:00→20:50)
[2017-08-02] MEDS: NYSTAT/DIPHENHY/LIDO MOUTHWASH (Adult) 120ML SWISH-SWAL SCH ×2 (09:00→12:43)
[2017-08-02] MEDS: amLODIPine BESYLATE 5 MG TAB PO SCH (09:00)
[2017-08-02] MEDS: LOSARTAN 50 MG TAB PO SCH (09:00)
--- NOTE | 2017-08-02 09:25 | PD.ONC.PN ---
Subjective Subjective Remarks Afebrile overnight. Patient resting in bed. No complaints. Objective Data Date Time Temp Pulse Resp B/P (MAP) Pulse Ox O2 Delivery O2 Flow Rate FiO2 08/02/17 05:25 98.0 81 18 139/90 (106) 97 08/02/17 00:25 98.0 83 18 114/87 (96) 97 08/02/17 00:00 65 08/01/17 20:26 98.2 91 18 122/96 (105) 97 08/01/17 20:09 80 08/01/17 17:45 98.4 86 18 110/76 (87) 97 08/01/17 16:00 83 08/01/17 14:06 98.5 86 18 101/73 (82) 96 08/01/17 12:00 83 08/01/17 09:31 97.9 96 16 139/93 (108) 97 08/02/17 08/02/17 08/02/17 07:00 15:00 23:00 Intake Total 240 ml Balance 240 ml Result Diagram: 08/02/1751908/02/17 0520 Laboratory Results Laboratory Tests Test 08/02/17 05:20 White Blood Count 0.2 TH/MM3 Red Blood Count 2.71 MIL/MM3 Hemoglobin 7.6 GM/DL Hematocrit 21.4 % Mean Corpuscular Volume 79.0 FL Mean Corpuscular Hemoglobin 28.2 PG Mean Corpuscular Hemoglobin Concent 35.6 % Red Cell Distribution Width 13.1 % Platelet Count 10 TH/MM3 Mean Platelet Volume 7.4 FL CBC Comment AUTO DIFF Differential Total Cells Counted 10 Neutrophils % (Manual) 10 % Band Neutrophils % 30 % Lymphocytes % 30 % Monocytes % 30 % Neutrophils # (Manual) 0.1 TH/MM3 Differential Comment FINAL DIFF MANUAL Platelet Estimate RARE Platelet Morphology Comment NORMAL Rouleau PRESENT Blood Urea Nitrogen 10 MG/DL Creatinine 0.43 MG/DL Random Glucose 93 MG/DL Calcium Level 8.5 MG/DL Magnesium Level 2.3 MG/DL Sodium Level 137 MEQ/L Potassium Level 4.5 MEQ/L Chloride Level 102 MEQ/L Carbon Dioxide Level 26.8 MEQ/L Anion Gap 8 MEQ/L Estimat Glomerular Filtration Rate 150 ML/MIN Administered Medications Medications (Trade) Dose Ordered Sig/Zeynep Route PRN Reason Start Time Stop Time Status Last Admin Dose Admin Prednisone (Deltasone) 5 mg DAILY PO 06/29/17 09:00 08/01/17 09:58 Losartan Potassium (Cozaar) 100 mg DAILY PO 06/29/17 09:00 08/01/17 09:58 Al Hydrox/Mg Hydrox/Simethicone (Mag-Al Plus Susp Liq) 15 ml Q6H PRN PO INDIGESTION 06/28/17 20:45 07/05/17 13:52 Multi-Ingredient Mouthwash/Gargle (Magic Mouthwash Adult Liq) 5 ml QID SWISH-SWAL 06/29/17 13:00 07/28/17 13:00 Ondansetron HCl (Zofran Inj) 4 mg Q6HR PRN IV PUSH nausea 06/29/17 10:15 07/26/17 03:01 Diphenhydramine HCl (Benadryl) 25 mg Q6H PRN PO itching 06/30/17 10:45 07/28/17 14:56 Acetaminophen (Tylenol) 650 mg Q4H PRN PO fever>100.4, PREMED, orpain1-2 07/01/17 10:45 07/27/17 08:44 Melatonin (Melatonin) 5 mg HS PRN PO insomnia 07/02/17 21:00 07/28/17 20:14 Carboxymethylcellulose Sodium (Refresh Tears 0.5% Opth Soln) 1 drop Q6H PRN EACH EYE dry eyes 07/04/17 11:30 07/04/17 19:44 Prochlorperazine Edisylate (Compazine Inj) 10 mg Q8H PRN IV PUSH nausea 07/05/17 10:15 07/18/17 22:34 Albuterol/ Ipratropium (Duoneb Neb) 1 ampule Q6HR NEB PRN NEB SHORTNESS OF BREATH 07/06/17 18:00 07/07/17 20:44 Guaifenesin/ Codeine Phosphate (Robitussin Ac 200-20 Mg/10 ml Liq) 10 ml Q4H PRN PO cough 07/07/17 13:30 07/11/17 21:05 Amlodipine Besylate (Norvasc) 5 mg DAILY PO 07/08/17 19:00 08/01/17 09:58 Citalopram Hydrobromide (CeleXA) 20 mg DAILY PO 07/12/17 09:00 08/01/17 09:58 Pantoprazole Sodium (Protonix) 40 mg DAILY PO 07/14/17 09:00 08/01/17 09:58 Magnesium Oxide (Mag-Ox) 400 mg BID PO 07/16/17 09:00 08/01/17 20:29 Vancomycin HCl 1750 mg/Sodium Chloride 517.5 ml @ 250 mls/hr Q12H IV 07/17/17 20:00 Future Hold 07/29/17 09:00 Enalaprilat (Vasotec Inj) 1.25 mg Q8H PRN IV PUSH SBP>160, DBP>90 07/18/17 17:15 07/28/17 13:34 Filgrastim 480 mcg/Dextrose 51.6 ml @ 100 mls/hr DAILY@14 IV 07/23/17 14:00 08/01/17 16:34 Alprazolam (Xanax) 0.5 mg Q8HR PRN PO anxiety 07/23/17 11:00 08/01/17 21:59 Sodium Chloride (NS Flush) See Protocol DAILY IV FLUSH 07/24/17 09:00 07/29/17 13:22 Heparin Sodium (Porcine) (Heparin Central Flush) See Protocol DAILY IV FLUSH 07/24/17 09:00 07/30/17 08:46 Sodium Chloride (NS Flush) UNSCH PRN IV FLUSH SEE PROTOCOL TABLE 07/23/17 19:00 07/28/17 14:56 Lorazepam (Ativan Inj) 0.5 mg Q4HR PRN IV PUSH anxiety 07/25/17 10:45 08/02/17 00:22 Nystatin (Mycostatin Liq) 5 ml QID SWISH-SWAL 07/25/17 13:00 08/01/17 20:29 Acetaminophen (Tylenol) 650 mg Q4H PRN PO SEE LABEL COMMENTS 07/26/17 12:00 07/30/17 12:40 Tramadol HCl (Ultram) 50 mg Q12H PRN PO pain 3-10 07/26/17 16:45 07/26/17 17:13 Carvedilol (Coreg) 3.125 mg Q12HR PO 07/28/17 21:00 08/01/17 20:29 Potassium Chloride/Sodium Chloride 1,000 ml @ 83 mls/hr Q12H3M IV 07/29/17 10:45 08/02/17 00:23 Diphenhydramine HCl (Benadryl) 25 mg Q4H PRN PO BLOOD PRODUCT 07/30/17 12:45 07/30/17 12:40 Micafungin Sodium 150 mg/Sodium Chloride 100 ml @ 100 mls/hr Q24H IV 07/31/17 21:00 08/01/17 22:00 Acyclovir (Zovirax) 400 mg Q8H PO 08/01/17 06:00 08/02/17 05:26 Meropenem 2000 mg/ Sodium Chloride 100 ml @ 200 mls/hr Q8H IV 08/01/17 05:00 08/02/17 05:26 Objective Remarks GENERAL: Middle aged female, lying in bed in nad. SKIN: Warm and dry. HEAD: Normocephalic. EYES: No injection or drainage. NECK: Supple, trachea midline. CARDIOVASCULAR: Regular rate and rhythm RESPIRATORY: Breath sounds equal bilaterally. No accessory muscle use. GASTROINTESTINAL: Abdomen soft, non-tender, nondistended. EXTREMITIES: No cyanosis. no edema. NEUROLOGICAL: awake, alert. normal speech. moving extremities. 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 give 1 unit pRBC today. stop IVF. continue Neupogen 08/01/17: D35. Monitor CBC. No transfusion today. Continue Neupogen. 07/31/17: D34. No transfusion today. Continue Neupogen. Monitor CBC. Await bone marrow recovery. 07/30/17 D33 . Plat tx today. ANC 0 . But no more fever. Continue neupogen. Extensive d/w pt. AWait BM recovery. 07/29/17: D32. Vanco on hold. Continue Neupogen. Blood pressure better controlled with increased Coreg. No transfusion today. Monitor CBC, BMP and magnesium. Monitor for fevers. 07/28/17: D31. + drug eruption on back. I've asked the nurse to hold vanco and notify ID of drug eruption. will give PO benadryl. increase coreg for elevated blood pressures 07/27/17: D30. 2 units pRBC. monitor blood counts. continue neupogen. 07/26/17: D29. Transfuse 1 unit platelets for level of 4K. Have IR evaluate picc. Continue neupogen until counts recovered. Monitor CBC 18: D28 18: D27 07/23/17: D26: monitor CBC await counts recovery. consult invasive to remove port. consult vascular for PICC line. 07/22/17: D25. hgb 5, platelets 6, give 2 units pRBC and 1 unit platelets. bone marrow biopsy shows empty bone marrow--no blasts. 07/21/17 D 24 . BM bx is still pending. I have called [facility]. There is a delay in getting the specimen. They willl run today and will call me. BM morphology is pending. Call place to pathologist Dr Melendez. NO TX today. ANC is 0. D/W BMT team at [facility]. willl follow. 07/20/17: D.23. await path from bone marrow biopsy. continue fluids, electrolyte replacement. 07/19/17: D22. bone marrow biopsy today. transfuse 1 unit platelets. start NS+ 40K @84cc/hr continuous infusion. check magnesium. 07/18/17 D21: Blood cultures pending from fever spike yesterday. Transfuse 2 units packed red blood cells for hemoglobin of 6.6. Plan to transfuse a total of 80 mEq potassium for level 3.4 today. Repeat bone marrow biopsy in a.m. 07/17/17: D20:Await CBC today. May have to have vascular place peripheral IV if unable to get blood return from [id number]. Replace Potassium today. Await CT neck. Pt agrees to imaging. 07/16/17: D19. give [address] neck for enlarging subinguinal LN ? continue antibiotics. increase Magnesium to BID. continue IV Potassium. 07/15/17: D18. no transfusion. obtain blood cultures for fever spike last night. give potassium as ordered. monitor closely 07/14/17: D17. no transfusion. give IV potassium. notify cardiology of 6 beat run of V-tach overnight 07/13/17: D16. give 1unit pRBC, 1 unit platelets. facial swelling improved. start diflucan for thrush. 07/12/17: D15: no transfusion. monitor right-sided facial swelling. refusing MRI. continue antibiotics and lemon lozenges. 07/11/17: D14 No transfusion. Patient with right-sided facial swelling 07/10/17: D13 Hgb 7.9. Transfuse 1 unit irradiated PRBC's. K3.1. Transfuse total of 80 meq's to keep K greater than 4.0 per cardiology recs. Give 400mg magnesium oxide 4 mag level of 1.9 07/09/17: D12. hgb 8, platelet count of 7, will transfuse blood and platelets. 07/08/17: D11. continue antibiotics. monitor for fever 07/07/27: D10. give 1 unit pRBC and 1 unit platelets. continue antibiotics. 07/06/17: D9. no transfusion, spiked fever. start antibiotics, obtain cultures, u /a and chest x-ray. 07/05/17: D8. Transfuse 1 unit irradiated platelets today. Start Rydapt 50mg po BID x 14 days. 07/04/17: D7. no transfusion. monitor for fever 07/03/17: D6. 2 units pRBC. last day of chemotherapy 07/02/17: D5. 1 unit platelets. continue chemotherapy. 07/01/17: D4. 1 unit platelets. continue chemotherapy. 06/30/17: D3. Tolerating chemo. No transfusion today. 06/29/17: D2, give 2 units pRBC this AM. start chemotherapy this afternoon. 06/28/17: admission, D1 (2) Neutropenic fever ICD Codes: D70.9 - Neutropenia, unspecified; R50.81 - Fever presenting with conditions classified elsewhere Status: Resolved Plan: --last fever on 07/27 --BC 07/25: no growth --BC, 07/06 gram negative rods, Klebsiella Pneumoniae (3) Thrush ICD Codes: B37.0 - Candidal stomatitis Plan: --magic mouthwash. (4) Ventricular tachycardia (paroxysmal) ICD Codes: I47.2 - Ventricular tachycardia Plan: --seen by Dr. Barker, advises: keep her potassium levels above 4. Try to keep her magnesium levels near 2 or above. Assessment 57y/o female admitted for salvage chemotherapy with FLAG-AKASH for refractory acute myeloid leukemia. 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 awaiting bone marrow recovery. h/o Rheumatoid arthritis. Anxiety disorder. COPD. Depression. Hypercholesterolemia. Hypertension. Irregular heartbeat Attending Statement The exam, history, and the medical decision-making described in the above note were completed with the assistance of the mid-level provider. I reviewed and agree with the findings presented. I attest that I had a [id number] encounter with the patient on the same day, and personally performed and documented my assessment and findings in the medical record. No new c/o No more fever Eating ok d/c IVF Change IV meds to oral. ID to follow on changing to oral meds. Encourage pt to ambulate. Possible d/c by wednesday. Julianna Mcdaniel Aug 02, 2017 09:25 April Fonseca MD Aug 02, 2017 17:14
[2017-08-02] MEDS: MAGNESIUM OXIDE 400 MG TAB PO SCH ×2 (10:29→20:51)
[2017-08-02] MEDS: CITALOPRAM HYDROBROMIDE 20 MG TAB PO SCH (10:29)
[2017-08-02] MEDS: NYSTATIN SUSP 500,000 U/5 ML CUP SWISH-SWAL SCH ×4 (10:29→21:00)
[2017-08-02] MEDS: PANTOPRAZOLE SOD 40 MG DELAYED RELEASE TAB PO SCH (10:29)
[2017-08-02] MEDS: predniSONE 5 MG TAB PO SCH (10:29)
[2017-08-02] MEDS ORDERED: SODIUM CHLOR 0.9% 250 ML INJ 250 ML IV ONE (11:00)
[2017-08-02] MEDS: SODIUM CHLORIDE 0.9% FLUSH 10 ML FLUSH IV FLUSH SCH (12:44)
[2017-08-02] MEDS: diphenhydrAMINE HCL 25 MG CAP PO PRN (14:55)
[2017-08-02] MEDS: ACETAMINOPHEN 325 MG TAB PO PRN (15:25)
[2017-08-02] MEDS: FILGRASTIM INJ 480 MCG in DEXTROSE 5% IN WATER INJ 50 ML IV SCH ×2 (15:25)
[2017-08-02] MEDS: ALPRAZolam 0.5 MG TAB PO PRN (20:56)
[2017-08-02] MEDS: MICAFUNGIN INJ 150 MG in SODIUM CHLORIDE 0.9% INJ 100 ML IV SCH (21:27)
[2017-08-03] VITALS (25 sets, daily range): BP systolic 95–144; BP diastolic 56–96; PULSE 70–99; RESP 16–18; TEMP 97.3–98.4; O2SAT 95–97
[2017-08-03] MEDS: MEROPENEM INJ 2,000 MG in SODIUM CHLORIDE 0.9% INJ 100 ML IV SCH ×3 (05:34→20:30)
[2017-08-03] MEDS: ACYCLOVIR 200 MG CAP PO SCH ×3 (05:34→20:30)
[2017-08-03 06:26] LABS: HEMATOCRIT 24.2 % (35.0-46.0); HEMOGLOBIN 8.8 GM/DL (11.6-15.3); MEAN CELL VOLUME 79.7 FL (80.0-100.0); MEAN PLATELET VOLUME 7.8 FL (7.0-11.0); RED BLOOD COUNT 3.03 MIL/MM3 (4.00-5.30); RED CELL DISTRIBUTION WIDTH 13.1 % (11.6-17.2); WHITE BLOOD COUNT 0.2 TH/MM3 (4.0-11.0)
[2017-08-03 06:32] LABS: MEAN CORPUSCULAR HGB CONC 36.4 % (32.0-36.0)
[2017-08-03 06:36] LABS: PLATELET COUNT 7 TH/MM3 (150-450)
[2017-08-03 06:46] LABS: BICARBONATE 29.6 MEQ/L (21.0-32.0); CALCIUM 8.7 MG/DL (8.5-10.1); CREATININE 0.4 MG/DL (0.50-1.00); MAGNESIUM 2.3 MG/DL (1.5-2.5)
[2017-08-03] MEDS ORDERED: SODIUM CHLOR 0.9% 250 ML INJ 250 ML IV ONE (07:45)
[2017-08-03 08:02] LABS: BANDS 5 % (0-6); LYMPHOCYTES 30 % (9-44); MONOCYTES 40 % (0-8); NEUTROPHIL # MANUAL DIFF 0.1 TH/MM3 (1.8-7.7); POLYS (SEG NEUTROPHILS) 25 % (16-70)
--- NOTE | 2017-08-03 09:22 | PD.ONC.PN ---
Subjective Subjective Remarks Afebrile overnight. Patient resting in bed in nad. Objective Data Date Time Temp Pulse Resp B/P (MAP) Pulse Ox O2 Delivery O2 Flow Rate FiO2 08/03/17 05:32 98.4 83 16 144/96 (112) 97 08/03/17 01:00 76 08/03/17 00:06 75 08/02/17 23:15 97.9 77 17 127/87 (100) 97 08/02/17 23:00 78 08/02/17 22:00 74 08/02/17 21:00 100 08/02/17 20:08 98.1 86 18 115/80 (92) 99 08/02/17 19:59 78 08/02/17 19:00 98 08/02/17 18:00 74 08/02/17 17:00 76 08/02/17 16:45 98.2 91 16 111/75 96 08/02/17 16:11 98.8 96 16 96/72 97 08/02/17 16:00 82 08/02/17 15:00 90 08/02/17 14:00 106 08/02/17 13:00 100 08/02/17 12:00 97.6 100 16 120/91 (101) 96 08/02/17 12:00 88 08/02/17 11:00 84 08/02/17 10:20 98.6 97 16 96/62 (73) 97 105/74 (84) Result Diagram: 08/03/17 0545 08/03/17 0545 Laboratory Results Laboratory Tests Test 08/03/17 05:45 White Blood Count 0.2 TH/MM3 Red Blood Count 3.03 MIL/MM3 Hemoglobin 8.8 GM/DL Hematocrit 24.2 % Mean Corpuscular Volume 79.7 FL Mean Corpuscular Hemoglobin 29.0 PG Mean Corpuscular Hemoglobin Concent 36.4 % Red Cell Distribution Width 13.1 % Platelet Count 7 TH/MM3 Mean Platelet Volume 7.8 FL CBC Comment AUTO DIFF Differential Total Cells Counted 20 Neutrophils % (Manual) 25 % Band Neutrophils % 5 % Lymphocytes % 30 % Monocytes % 40 % Neutrophils # (Manual) 0.1 TH/MM3 Differential Comment FINAL DIFF MANUAL Platelet Estimate RARE Platelet Morphology Comment NORMAL Blood Urea Nitrogen 10 MG/DL Creatinine 0.40 MG/DL Random Glucose 89 MG/DL Calcium Level 8.7 MG/DL Magnesium Level 2.3 MG/DL Sodium Level 139 MEQ/L Potassium Level 4.2 MEQ/L Chloride Level 103 MEQ/L Carbon Dioxide Level 29.6 MEQ/L Anion Gap 6 MEQ/L Estimat Glomerular Filtration Rate 163 ML/MIN Administered Medications Medications (Trade) Dose Ordered Sig/Zeynep Route PRN Reason Start Time Stop Time Status Last Admin Dose Admin Prednisone (Deltasone) 5 mg DAILY PO 06/29/17 09:00 08/02/17 10:29 Losartan Potassium (Cozaar) 100 mg DAILY PO 06/29/17 09:00 08/01/17 09:58 Al Hydrox/Mg Hydrox/Simethicone (Mag-Al Plus Susp Liq) 15 ml Q6H PRN PO INDIGESTION 06/28/17 20:45 07/05/17 13:52 Ondansetron HCl (Zofran Inj) 4 mg Q6HR PRN IV PUSH nausea 06/29/17 10:15 07/26/17 03:01 Diphenhydramine HCl (Benadryl) 25 mg Q6H PRN PO itching 06/30/17 10:45 07/28/17 14:56 Acetaminophen (Tylenol) 650 mg Q4H PRN PO fever>100.4, PREMED, orpain1-2 07/01/17 10:45 07/27/17 08:44 Melatonin (Melatonin) 5 mg HS PRN PO insomnia 07/02/17 21:00 07/28/17 20:14 Carboxymethylcellulose Sodium (Refresh Tears 0.5% Opth Soln) 1 drop Q6H PRN EACH EYE dry eyes 07/04/17 11:30 07/04/17 19:44 Prochlorperazine Edisylate (Compazine Inj) 10 mg Q8H PRN IV PUSH nausea 07/05/17 10:15 07/18/17 22:34 Albuterol/ Ipratropium (Duoneb Neb) 1 ampule Q6HR NEB PRN NEB SHORTNESS OF BREATH 07/06/17 18:00 07/07/17 20:44 Guaifenesin/ Codeine Phosphate (Robitussin Ac 200-20 Mg/10 ml Liq) 10 ml Q4H PRN PO cough 07/07/17 13:30 3/4/18 21:05 Amlodipine Besylate (Norvasc) 5 mg DAILY PO 07/08/17 19:00 08/01/17 09:58 Citalopram Hydrobromide (CeleXA) 20 mg DAILY PO 07/12/17 09:00 08/02/17 10:29 Pantoprazole Sodium (Protonix) 40 mg DAILY PO 07/14/17 09:00 08/02/17 10:29 Magnesium Oxide (Mag-Ox) 400 mg BID PO 07/16/17 09:00 08/02/17 20:51 Vancomycin HCl 1750 mg/Sodium Chloride 517.5 ml @ 250 mls/hr Q12H IV 07/17/17 20:00 Future Hold 07/29/17 09:00 Enalaprilat (Vasotec Inj) 1.25 mg Q8H PRN IV PUSH SBP>160, DBP>90 07/18/17 17:15 07/28/17 13:34 Filgrastim 480 mcg/Dextrose 51.6 ml @ 100 mls/hr DAILY@14 IV 07/23/17 14:00 08/02/17 15:25 Alprazolam (Xanax) 0.5 mg Q8HR PRN PO anxiety 07/23/17 11:00 08/02/17 20:56 Sodium Chloride (NS Flush) See Protocol DAILY IV FLUSH 07/24/17 09:00 08/02/17 12:44 Heparin Sodium (Porcine) (Heparin Central Flush) See Protocol DAILY IV FLUSH 07/24/17 09:00 07/30/17 08:46 Sodium Chloride (NS Flush) UNSCH PRN IV FLUSH SEE PROTOCOL TABLE 07/23/17 19:00 07/28/17 14:56 Lorazepam (Ativan Inj) 0.5 mg Q4HR PRN IV PUSH anxiety 07/25/17 10:45 08/02/17 23:19 Nystatin (Mycostatin Liq) 5 ml QID SWISH-SWAL 07/25/17 13:00 08/02/17 19:25 Tramadol HCl (Ultram) 50 mg Q12H PRN PO pain 3-10 07/26/17 16:45 07/26/17 17:13 Carvedilol (Coreg) 3.125 mg Q12HR PO 07/28/17 21:00 08/02/17 20:50 Diphenhydramine HCl (Benadryl) 25 mg Q4H PRN PO BLOOD PRODUCT 07/30/17 12:45 08/02/17 14:55 Micafungin Sodium 150 mg/Sodium Chloride 100 ml @ 100 mls/hr Q24H IV 07/31/17 21:00 08/02/17 21:27 Acyclovir (Zovirax) 400 mg Q8H PO 08/01/17 06:00 08/03/17 05:34 Meropenem 2000 mg/ Sodium Chloride 100 ml @ 200 mls/hr Q8H IV 08/01/17 05:00 08/03/17 05:34 Objective Remarks GENERAL: Middle aged female, sitting up in bed eating breakfast. SKIN: Warm and dry. +alopecia. HEAD: Normocephalic. EYES: No injection or drainage. NECK: Supple, trachea midline. MOUTH: thrush is gone. CARDIOVASCULAR: Regular rate and rhythm RESPIRATORY: Breath sounds equal bilaterally. No accessory muscle use. GASTROINTESTINAL: Abdomen soft, non-tender, nondistended. EXTREMITIES: No cyanosis, or edema. NEUROLOGICAL: awake and alert. normal speech. 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 give 1 unit platelets. monitor electrolytes. plan for discharge next week. 08/02/17: D36. give 1 unit pRBC today. stop IVF. continue Neupogen 08/01/17: D35. Monitor CBC. No transfusion today. Continue Neupogen. 07/31/17: D34. No transfusion today. Continue Neupogen. Monitor CBC. Await bone marrow recovery. 07/30/17 D33 . Plat tx today. ANC 0 . But no more fever. Continue neupogen. Extensive d/w pt. AWait BM recovery. 07/29/17: D32. Vanco on hold. Continue Neupogen. Blood pressure better controlled with increased Coreg. No transfusion today. Monitor CBC, BMP and magnesium. Monitor for fevers. 07/28/17: D31. + drug eruption on back. I've asked the nurse to hold vanco and notify ID of drug eruption. will give PO benadryl. increase coreg for elevated blood pressures 07/27/17: D30. 2 units pRBC. monitor blood counts. continue neupogen. 07/26/17: D29. Transfuse 1 unit platelets for level of 4K. Have IR evaluate picc. Continue neupogen until counts recovered. Monitor CBC 18: D28 18: D27 07/23/17: D26: monitor CBC await counts recovery. consult invasive to remove port. consult vascular for PICC line. 07/22/17: D25. hgb 5, platelets 6, give 2 units pRBC and 1 unit platelets. bone marrow biopsy shows empty bone marrow--no blasts. 07/21/17 D 24 . BM bx is still pending. I have called [facility]. There is a delay in getting the specimen. They willl run today and will call me. BM morphology is pending. Call place to pathologist Dr Melendez. NO TX today. ANC is 0. D/W BMT team at [facility]. willl follow. 07/20/17: D.23. await path from bone marrow biopsy. continue fluids, electrolyte replacement. 07/19/17: D22. bone marrow biopsy today. transfuse 1 unit platelets. start NS+ 40K @84cc/hr continuous infusion. check magnesium. 07/18/17 D21: Blood cultures pending from fever spike yesterday. Transfuse 2 units packed red blood cells for hemoglobin of 6.6. Plan to transfuse a total of 80 mEq potassium for level 3.4 today. Repeat bone marrow biopsy in a.m. 07/17/17: D20:Await CBC today. May have to have vascular place peripheral IV if unable to get blood return from [id number]. Replace Potassium today. Await CT neck. Pt agrees to imaging. 07/16/17: D19. give [address] neck for enlarging subinguinal LN ? continue antibiotics. increase Magnesium to BID. continue IV Potassium. 07/15/17: D18. no transfusion. obtain blood cultures for fever spike last night. give potassium as ordered. monitor closely 07/14/17: D17. no transfusion. give IV potassium. notify cardiology of 6 beat run of V-tach overnight 07/13/17: D16. give 1unit pRBC, 1 unit platelets. facial swelling improved. start diflucan for thrush. 07/12/17: D15: no transfusion. monitor right-sided facial swelling. refusing MRI. continue antibiotics and lemon lozenges. 07/11/17: D14 No transfusion. Patient with right-sided facial swelling 07/10/17: D13 Hgb 7.9. Transfuse 1 unit irradiated PRBC's. K3.1. Transfuse total of 80 meq's to keep K greater than 4.0 per cardiology recs. Give 400mg magnesium oxide 4 mag level of 1.9 07/09/17: D12. hgb 8, platelet count of 7, will transfuse blood and platelets. 07/08/17: D11. continue antibiotics. monitor for fever 07/07/27: D10. give 1 unit pRBC and 1 unit platelets. continue antibiotics. 07/06/17: D9. no transfusion, spiked fever. start antibiotics, obtain cultures, u /a and chest x-ray. 07/05/17: D8. Transfuse 1 unit irradiated platelets today. Start Rydapt 50mg po BID x 14 days. 07/04/17: D7. no transfusion. monitor for fever 07/03/17: D6. 2 units pRBC. last day of chemotherapy 07/02/17: D5. 1 unit platelets. continue chemotherapy. 07/01/17: D4. 1 unit platelets. continue chemotherapy. 06/30/17: D3. Tolerating chemo. No transfusion today. 06/29/17: D2, give 2 units pRBC this AM. start chemotherapy this afternoon. 06/28/17: admission, D1 (2) Neutropenic fever ICD Codes: D70.9 - Neutropenia, unspecified; R50.81 - Fever presenting with conditions classified elsewhere Status: Resolved Plan: --last fever on 07/27 --BC 07/25: no growth --BC, 07/06 gram negative rods, Klebsiella Pneumoniae (3) Thrush ICD Codes: B37.0 - Candidal stomatitis Plan: --resolved. --on oral nystatin (4) Ventricular tachycardia (paroxysmal) ICD Codes: I47.2 - Ventricular tachycardia Plan: --seen by Dr. Barker, advises: keep her potassium levels above 4. Try to keep her magnesium levels near 2 or above. Assessment 57y/o female admitted for salvage chemotherapy with FLAG-AKASH for refractory acute myeloid leukemia. 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 awaiting bone marrow recovery. h/o Rheumatoid arthritis. Anxiety disorder. COPD. Depression. Hypercholesterolemia. Hypertension. Irregular heartbeat Attending Statement The exam, history, and the medical decision-making described in the above note were completed with the assistance of the mid-level provider. I reviewed and agree with the findings presented. I attest that I had a [id number] encounter with the patient on the same day, and personally performed and documented my assessment and findings in the medical record. NO c/o feels better. WBC 200, ANC 100. Continue Neupogen. Pt does not have fever anymore, she has completed antibiotic course for klebsiella bacteremia. Repeat BC are negative. I recommend to stop merepenam and observe. also switch micofungin to PO antifungal for prophylaxis. She is on nystatin for oral thrush. Plat today. anticipate d/c on wednesday if remains stable. Julianna Mcdaniel Aug 03, 2017 09:22 April Fonseca MD Aug 03, 2017 23:12
[2017-08-03] MEDS: SODIUM CHLORIDE 0.9% FLUSH 10 ML FLUSH IV FLUSH SCH (09:38)
[2017-08-03] MEDS: MAGNESIUM OXIDE 400 MG TAB PO SCH ×2 (09:40→20:30)
[2017-08-03] MEDS: amLODIPine BESYLATE 5 MG TAB PO SCH (09:40)
[2017-08-03] MEDS: predniSONE 5 MG TAB PO SCH (09:40)
[2017-08-03] MEDS: LOSARTAN 50 MG TAB PO SCH (09:40)
[2017-08-03] MEDS: CARVEDILOL 3.125 MG TAB PO SCH ×2 (09:40→20:29)
[2017-08-03] MEDS: NYSTATIN SUSP 500,000 U/5 ML CUP SWISH-SWAL SCH ×4 (09:40→20:29)
[2017-08-03] MEDS: PANTOPRAZOLE SOD 40 MG DELAYED RELEASE TAB PO SCH (09:40)
[2017-08-03] MEDS: CITALOPRAM HYDROBROMIDE 20 MG TAB PO SCH (09:40)
[2017-08-03] MEDS: ACETAMINOPHEN 325 MG TAB PO PRN (11:39)
[2017-08-03] MEDS: diphenhydrAMINE HCL 25 MG CAP PO PRN (11:39)
[2017-08-03] MEDS: POTASSIUM CHLORIDE 20 MEQ CONTROLLED RELEASE TAB PO SCH ×2 (12:51→20:30)
[2017-08-03] MEDS: FILGRASTIM INJ 480 MCG in DEXTROSE 5% IN WATER INJ 50 ML IV SCH ×2 (15:35)
--- NOTE | 2017-08-03 17:15 | HHI.IDPN ---
Subjective Subjective Remarks no fever no diarrhea ANC still 0 Antibiotics micafungin meropenem acyclovir Lines Line sites with no e.o infection Port site ok. Past Medical History Past h/o Kleb pneumo bacteremia in May 2017. Allergies: Coded Allergies: cefepime (Verified Allergy, Severe, HIVES, 06/25/17) latex (Unverified Allergy, Severe, Rash, 06/25/17) vancomycin (Verified Allergy, Intermediate, Rash, 07/30/17) Sulfa (Sulfonamide Antibiotics) (Unverified Adverse Reaction, Severe, Vomiting, cramps, 06/25/17) Objective . Vital Signs Date Time Temp Pulse Resp B/P (MAP) Pulse Ox O2 Delivery O2 Flow Rate FiO2 08/03/17 15:36 97.6 73 18 115/76 (89) 97 08/03/17 14:00 70 08/03/17 13:25 98.4 76 16 104/72 96 08/03/17 13:00 72 08/03/17 12:45 97.9 75 16 95/56 (69) 97 08/03/17 12:45 97.9 75 16 95/56 97 08/03/17 12:00 70 08/03/17 11:00 82 08/03/17 10:00 94 08/03/17 09:30 97.3 99 16 119/92 (101) 97 08/03/17 09:00 78 08/03/17 08:00 98 08/03/17 07:00 76 08/03/17 05:32 98.4 83 16 144/96 (112) 97 08/03/17 01:00 76 08/03/17 00:06 75 08/02/17 23:15 97.9 77 17 127/87 (100) 97 08/02/17 23:00 78 08/02/17 22:00 74 08/02/17 21:00 100 08/02/17 20:08 98.1 86 18 115/80 (92) 99 08/02/17 19:59 78 08/02/17 19:00 98 08/02/17 18:00 74 08/03/17 08/03/17 08/04/17 15:00 23:00 07:00 Intake Total 251 ml Balance 251 ml Platelets 251 ml . Laboratory Tests Test 08/02/17 05:20 08/03/17 05:45 White Blood Count 0.2 TH/MM3 0.2 TH/MM3 Red Blood Count 2.71 MIL/MM3 3.03 MIL/MM3 Hemoglobin 7.6 GM/DL 8.8 GM/DL Hematocrit 21.4 % 24.2 % Mean Corpuscular Volume 79.0 FL 79.7 FL Mean Corpuscular Hemoglobin 28.2 PG 29.0 PG Mean Corpuscular Hemoglobin Concent 35.6 % 36.4 % Red Cell Distribution Width 13.1 % 13.1 % Platelet Count 10 TH/MM3 7 TH/MM3 Mean Platelet Volume 7.4 FL 7.8 FL CBC Comment AUTO DIFF AUTO DIFF Differential Total Cells Counted 10 20 Neutrophils % (Manual) 10 % 25 % Band Neutrophils % 30 % 5 % Lymphocytes % 30 % 30 % Monocytes % 30 % 40 % Neutrophils # (Manual) 0.1 TH/MM3 0.1 TH/MM3 Differential Comment FINAL DIFF MANUAL FINAL DIFF MANUAL Platelet Estimate RARE RARE Platelet Morphology Comment NORMAL NORMAL Rouleau PRESENT Laboratory Tests Test 08/02/17 05:20 08/03/17 05:45 Blood Urea Nitrogen 10 MG/DL 10 MG/DL Creatinine 0.43 MG/DL 0.40 MG/DL Random Glucose 93 MG/DL 89 MG/DL Calcium Level 8.5 MG/DL 8.7 MG/DL Magnesium Level 2.3 MG/DL 2.3 MG/DL Sodium Level 137 MEQ/L 139 MEQ/L Potassium Level 4.5 MEQ/L 4.2 MEQ/L Chloride Level 102 MEQ/L 103 MEQ/L Carbon Dioxide Level 26.8 MEQ/L 29.6 MEQ/L Anion Gap 8 MEQ/L 6 MEQ/L Estimat Glomerular Filtration Rate 150 ML/MIN 163 ML/MIN Imaging Last Impressions Port Line Revision 07/23/17 0000 Signed Impressions: Service Date/Time: Sunday, July 23, 2017 00:00 - CONCLUSION: Uncomplicated port removal as above. Reinier Castro MD Bone Biopsy CT 07/19/17 1521 Signed Impressions: Service Date/Time: Wednesday, July 19, 2017 15:58 - CONCLUSION: 1. Uncomplicated CT guided bone marrow aspirate. 2. Uncomplicated CT guided bone marrow biopsy. Malcolm Coker MD Chest X-Ray 07/17/17 0000 Signed Impressions: Service Date/Time: Monday, July 17, 2017 13:49 - CONCLUSION: Mild patchy peripheral lower lung zone opacity unchanged. Mild chronic cardiac silhouette enlargement. Logan Walton MD Neck CT 07/16/17 0000 Signed Impressions: Service Date/Time: Monday, July 17, 2017 16:22 - CONCLUSION: Stranding of fat in the submandibular anterior soft tissues extending into the deeper soft tissues anterior to the carotid arteries, worse on the left side. There is also some mild inflammatory changes around subcentimeter lymph nodes along the left carotid lymph node chain. Findings are most characteristic of a cellulitis with some early reactive changes in the left-sided cervical lymph nodes. Jacinto Tello MD Upper Extremity Ultrasound 07/11/17 0000 Signed Impressions: Service Date/Time: Tuesday, July 11, 2017 16:40 - CONCLUSION: Normal examination. Mt Vance MD Head CT 07/08/17 0000 Signed Impressions: Service Date/Time: July 19:55 - CONCLUSION: No acute disease. Maclolm Coker MD Physical Exam CONSTITUTIONAL/GENERAL: Awake and alert, NAD, looks fatigued previous PORT site covered with dressing, intact SKIN: Most of macular- papular rash appear to resolve Alopecia EYES: Pupils equal and round and reactive. Extraocular motions intact. No scleral icterus. No injection or drainage. Fundi not examined. HEENT: . L submandibular - residual non tender mass, much smaller CARDIOVASCULAR: Regular rate and rhythm without murmurs, gallops, or rubs. R parotid swelling resolved RESPIRATORY/CHEST: Clear to auscultation. Breath sounds equal bilaterally. No wheezes, rales, or rhonchi. GASTROINTESTINAL: Abdomen soft, non-tender, nondistended. MUSCULOSKELETAL: Extremities without clubbing, cyanosis, no edema. No calf tenderness NEUROLOGICAL: awake and alert Non focal PSYCHIATRIC: Calm. Assessment & Plan Remarks Sepsis in an Immune compromised host. New fevers ? new infection. ? PORT - removed Kleb pneumo bacteremia, recurrent ? source (PORT?) This appears recurrent similar Kleb pneumo bacteremia in May 2017. 2 D echo negative from 06/30 US negative for thrombosys Sialoadenitis/Parotitis: nearly resolved clinically Cold sore ? HSV Possible line infection Severely immunocompromised, neutropenic. AML sp chemo Neutropenia, neutropenic fever - resolved on current abx - persistent absolute neutropenia C.diff - improved diarrhea R sided parotitis, Staph including MRSA is primary consideration: clinically appears to resolvesd New issue: rash - most likley low grade allergic reaction to one of the multiple abx HIveas with cefepime Recs: t meropenemV (for Kleb pneumo) and micafubngind complete PO difricid (for Cdiff) x 10 days will add vancomycin to allergies list cont oral acyclovir. can not use am/clav for profilaxis 2/2 risk of alllergic reaction will user levaqui n for profilaxis 2/2 recent c.diff at this point, but its a high risk for C.diff recucBrittney Persaud MD Aug 03, 2017 17:15
[2017-08-03] MEDS: ALPRAZolam 0.5 MG TAB PO PRN (20:30)
[2017-08-03] MEDS: LORazepam 2 MG/ML VIAL IV PUSH PRN (21:25)
[2017-08-04] VITALS (21 sets, daily range): BP systolic 104–135; BP diastolic 73–88; PULSE 72–94; RESP 16–18; TEMP 97.8–98.8; O2SAT 93–100
[2017-08-04] MEDS: ACYCLOVIR 200 MG CAP PO SCH ×3 (05:00→22:22)
[2017-08-04] MEDS: MEROPENEM INJ 2,000 MG in SODIUM CHLORIDE 0.9% INJ 100 ML IV SCH (05:00)
[2017-08-04 05:56] LABS: HEMATOCRIT 23.8 % (35.0-46.0); HEMOGLOBIN 8.6 GM/DL (11.6-15.3); MEAN CELL VOLUME 79.6 FL (80.0-100.0); MEAN CORPUSCULAR HEMOGLOBIN 28.7 PG (27.0-34.0); MEAN PLATELET VOLUME 6.9 FL (7.0-11.0); RED BLOOD COUNT 2.98 MIL/MM3 (4.00-5.30); RED CELL DISTRIBUTION WIDTH 13.2 % (11.6-17.2); WHITE BLOOD COUNT 0.2 TH/MM3 (4.0-11.0)
[2017-08-04 05:57] LABS: MEAN CORPUSCULAR HGB CONC 36.1 % (32.0-36.0)
[2017-08-04 05:59] LABS: PLATELET COUNT 15 TH/MM3 (150-450)
[2017-08-04 06:23] LABS: BICARBONATE 29.6 MEQ/L (21.0-32.0); CALCIUM 8.9 MG/DL (8.5-10.1); CREATININE 0.5 MG/DL (0.50-1.00); MAGNESIUM 2.3 MG/DL (1.5-2.5)
[2017-08-04 07:05] LABS: BANDS 10 % (0-6); LYMPHOCYTES 50 % (9-44); MONOCYTES 20 % (0-8); NEUTROPHIL # MANUAL DIFF 0.1 TH/MM3 (1.8-7.7); POLYS (SEG NEUTROPHILS) 20 % (16-70)
[2017-08-04] MEDS: CARVEDILOL 3.125 MG TAB PO SCH ×2 (07:56→22:22)
[2017-08-04] MEDS: MAGNESIUM OXIDE 400 MG TAB PO SCH ×2 (07:56→22:22)
[2017-08-04] MEDS: NYSTATIN SUSP 500,000 U/5 ML CUP SWISH-SWAL SCH ×4 (07:56→22:23)
[2017-08-04] MEDS: amLODIPine BESYLATE 5 MG TAB PO SCH (07:57)
[2017-08-04] MEDS: CITALOPRAM HYDROBROMIDE 20 MG TAB PO SCH (07:57)
[2017-08-04] MEDS: POTASSIUM CHLORIDE 20 MEQ CONTROLLED RELEASE TAB PO SCH ×2 (07:57→22:22)
[2017-08-04] MEDS: LOSARTAN 50 MG TAB PO SCH (07:57)
[2017-08-04] MEDS: predniSONE 5 MG TAB PO SCH (07:57)
[2017-08-04] MEDS: PANTOPRAZOLE SOD 40 MG DELAYED RELEASE TAB PO SCH (08:01)
[2017-08-04] MEDS: SODIUM CHLORIDE 0.9% FLUSH 10 ML FLUSH IV FLUSH SCH (09:00)
--- NOTE | 2017-08-04 10:27 | PD.ONC.PN ---
Subjective Subjective Remarks Afebrile Patient sitting up on side of bed visiting with significant other No acute complaints Anxious to be discharged Objective Data Date Time Temp Pulse Resp B/P (MAP) Pulse Ox O2 Delivery O2 Flow Rate FiO2 08/04/17 07:05 98.1 84 16 135/86 (102) 96 08/04/17 06:00 80 08/04/17 05:52 74 08/04/17 05:00 90 08/04/17 04:46 97.9 88 16 117/84 (95) 97 08/04/17 04:00 74 08/04/17 02:00 74 08/04/17 01:00 72 08/04/17 00:24 97.8 77 16 118/80 (93) 95 08/04/17 00:00 72 08/04/17 00:00 73 08/03/17 23:00 72 08/03/17 22:00 74 08/03/17 21:00 78 08/03/17 20:23 98.2 88 16 114/78 (90) 95 08/03/17 20:00 88 08/03/17 20:00 83 08/03/17 19:00 96 08/03/17 19:00 96 08/03/17 18:00 74 08/03/17 17:00 70 08/03/17 16:00 70 08/03/17 15:36 97.6 73 18 115/76 (89) 97 08/03/17 15:00 78 08/03/17 14:00 70 08/03/17 13:25 98.4 76 16 104/72 96 08/03/17 13:00 72 08/03/17 12:45 97.9 75 16 95/56 (69) 97 08/03/17 12:45 97.9 75 16 95/56 97 08/03/17 12:00 70 08/03/17 11:00 82 08/04/17 08/04/17 08/04/17 07:00 15:00 23:00 Intake Total 100 ml Balance 100 ml Result Diagram: 08/04/175 08/04/175 Laboratory Results Laboratory Tests Test 08/04/17 04:45 White Blood Count 0.2 TH/MM3 Red Blood Count 2.98 MIL/MM3 Hemoglobin 8.6 GM/DL Hematocrit 23.8 % Mean Corpuscular Volume 79.6 FL Mean Corpuscular Hemoglobin 28.7 PG Mean Corpuscular Hemoglobin Concent 36.1 % Red Cell Distribution Width 13.2 % Platelet Count 15 TH/MM3 Mean Platelet Volume 6.9 FL CBC Comment AUTO DIFF Differential Total Cells Counted 10 Neutrophils % (Manual) 20 % Band Neutrophils % 10 % Lymphocytes % 50 % Monocytes % 20 % Neutrophils # (Manual) 0.1 TH/MM3 Differential Comment FINAL DIFF MANUAL Platelet Estimate LOW Platelet Morphology Comment NORMAL Blood Urea Nitrogen 11 MG/DL Creatinine 0.50 MG/DL Random Glucose 96 MG/DL Calcium Level 8.9 MG/DL Magnesium Level 2.3 MG/DL Sodium Level 137 MEQ/L Potassium Level 4.2 MEQ/L Chloride Level 102 MEQ/L Carbon Dioxide Level 29.6 MEQ/L Anion Gap 5 MEQ/L Estimat Glomerular Filtration Rate 126 ML/MIN Administered Medications Medications (Trade) Dose Ordered Sig/Zeynep Route PRN Reason Start Time Stop Time Status Last Admin Dose Admin Prednisone (Deltasone) 5 mg DAILY PO 06/29/17 09:00 08/04/17 07:57 Losartan Potassium (Cozaar) 100 mg DAILY PO 06/29/17 09:00 08/04/17 07:57 Al Hydrox/Mg Hydrox/Simethicone (Mag-Al Plus Susp Liq) 15 ml Q6H PRN PO INDIGESTION 06/28/17 20:45 07/05/17 13:52 Ondansetron HCl (Zofran Inj) 4 mg Q6HR PRN IV PUSH nausea 06/29/17 10:15 07/26/17 03:01 Diphenhydramine HCl (Benadryl) 25 mg Q6H PRN PO itching 06/30/17 10:45 07/28/17 14:56 Acetaminophen (Tylenol) 650 mg Q4H PRN PO fever>100.4, PREMED, orpain1-2 07/01/17 10:45 08/03/17 11:39 Melatonin (Melatonin) 5 mg HS PRN PO insomnia 07/02/17 21:00 07/28/17 20:14 Carboxymethylcellulose Sodium (Refresh Tears 0.5% Opth Soln) 1 drop Q6H PRN EACH EYE dry eyes 07/04/17 11:30 07/04/17 19:44 Prochlorperazine Edisylate (Compazine Inj) 10 mg Q8H PRN IV PUSH nausea 07/05/17 10:15 07/18/17 22:34 Albuterol/ Ipratropium (Duoneb Neb) 1 ampule Q6HR NEB PRN NEB SHORTNESS OF BREATH 07/06/17 18:00 07/07/17 20:44 Guaifenesin/ Codeine Phosphate (Robitussin Ac 200-20 Mg/10 ml Liq) 10 ml Q4H PRN PO cough 07/07/17 13:30 07/11/17 21:05 Amlodipine Besylate (Norvasc) 5 mg DAILY PO 07/08/17 19:00 08/04/17 07:57 Citalopram Hydrobromide (CeleXA) 20 mg DAILY PO 07/12/17 09:00 08/04/17 07:57 Pantoprazole Sodium (Protonix) 40 mg DAILY PO 07/14/17 09:00 08/04/17 08:01 Magnesium Oxide (Mag-Ox) 400 mg BID PO 07/16/17 09:00 08/04/17 07:56 Enalaprilat (Vasotec Inj) 1.25 mg Q8H PRN IV PUSH SBP>160, DBP>90 07/18/17 17:15 07/28/17 13:34 Filgrastim 480 mcg/Dextrose 51.6 ml @ 100 mls/hr DAILY@14 IV 07/23/17 14:00 08/03/17 15:35 Alprazolam (Xanax) 0.5 mg Q8HR PRN PO anxiety 07/23/17 11:00 08/03/17 20:30 Sodium Chloride (NS Flush) See Protocol DAILY IV FLUSH 07/24/17 09:00 08/03/17 09:38 Heparin Sodium (Porcine) (Heparin Central Flush) See Protocol DAILY IV FLUSH 07/24/17 09:00 08/04/17 09:00 Heparin Sodium (Porcine) (Heparin Central Flush) See Protocol UNSCH PRN IV FLUSH SEE PROTOCOL TABLE 07/23/17 19:00 08/04/17 05:46 Sodium Chloride (NS Flush) UNSCH PRN IV FLUSH SEE PROTOCOL TABLE 07/23/17 19:00 07/28/17 14:56 Lorazepam (Ativan Inj) 0.5 mg Q4HR PRN IV PUSH anxiety 07/25/17 10:45 08/03/17 21:25 Nystatin (Mycostatin Liq) 5 ml QID SWISH-SWAL 07/25/17 13:00 08/04/17 07:56 Tramadol HCl (Ultram) 50 mg Q12H PRN PO pain 3-10 07/26/17 16:45 07/26/17 17:13 Carvedilol (Coreg) 3.125 mg Q12HR PO 07/28/17 21:00 08/04/17 07:56 Diphenhydramine HCl (Benadryl) 25 mg Q4H PRN PO BLOOD PRODUCT 07/30/17 12:45 08/03/17 11:39 Acyclovir (Zovirax) 400 mg Q8H PO 08/01/17 06:00 08/04/17 05:00 Meropenem 2000 mg/ Sodium Chloride 100 ml @ 200 mls/hr Q8H IV 08/01/17 05:00 08/04/17 05:00 Potassium Chloride (KCl) 20 meq Q12HR PO 08/03/17 09:30 08/04/17 07:57 Objective Remarks GENERAL: Older female resting in bed in no obvious distress SKIN: Warm and dry. No oozing from lines. PICC line to right upper extremity with minimal bruising at insertion on site coordinator: Normocephalic. EYES: No injection or drainage. NECK: Supple, trachea midline. CARDIOVASCULAR: Regular rate and rhythm RESPIRATORY: Breath sounds equal bilaterally. No accessory muscle use. GASTROINTESTINAL: Abdomen soft, non-tender, nondistended. EXTREMITIES: No cyanosis. no edema. NEUROLOGICAL: Moving all extremities. Normal speech. Awake and alert. 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 No transfusion today. Stop meropenem as she has completed course. See how she does off antibiotics with no prophylaxis prior to anticipated discharge on Wednesday. Discussed with Dr. Odell. 08/03/17: D37. give 1 unit platelets. monitor electrolytes. plan for discharge next week. 08/02/17: D36. give 1 unit pRBC today. stop IVF. continue Neupogen 08/01/17: D35. Monitor CBC. No transfusion today. Continue Neupogen. 07/31/17: D34. No transfusion today. Continue Neupogen. Monitor CBC. Await bone marrow recovery. 07/30/17 D33 . Plat tx today. ANC 0 . But no more fever. Continue neupogen. Extensive d/w pt. AWait BM recovery. 07/29/17: D32. Vanco on hold. Continue Neupogen. Blood pressure better controlled with increased Coreg. No transfusion today. Monitor CBC, BMP and magnesium. Monitor for fevers. 07/28/17: D31. + drug eruption on back. I've asked the nurse to hold vanco and notify ID of drug eruption. will give PO benadryl. increase coreg for elevated blood pressures 07/27/17: D30. 2 units pRBC. monitor blood counts. continue neupogen. 07/26/17: D29. Transfuse 1 unit platelets for level of 4K. Have IR evaluate picc. Continue neupogen until counts recovered. Monitor CBC 07/25/17: D28 07/24/17: D27 07/23/17: D26: monitor CBC await counts recovery. consult invasive to remove port. consult vascular for PICC line. 07/22/17: D25. hgb 5, platelets 6, give 2 units pRBC and 1 unit platelets. bone marrow biopsy shows empty bone marrow--no blasts. 07/21/17 D 24 . BM bx is still pending. I have called [facility]. There is a delay in getting the specimen. They willl run today and will call me. BM morphology is pending. Call place to pathologist Dr Melendez. NO TX today. ANC is 0. D/W BMT team at [facility]. willl follow. 07/20/17: D.23. await path from bone marrow biopsy. continue fluids, electrolyte replacement. 07/19/17: D22. bone marrow biopsy today. transfuse 1 unit platelets. start NS+ 40K @84cc/hr continuous infusion. check magnesium. 07/18/17 D21: Blood cultures pending from fever spike yesterday. Transfuse 2 units packed red blood cells for hemoglobin of 6.6. Plan to transfuse a total of 80 mEq potassium for level 3.4 today. Repeat bone marrow biopsy in a.m. 07/17/17: D20:Await CBC today. May have to have vascular place peripheral IV if unable to get blood return from [id number]. Replace Potassium today. Await CT neck. Pt agrees to imaging. 07/16/17: D19. give [address] neck for enlarging subinguinal LN ? continue antibiotics. increase Magnesium to BID. continue IV Potassium. 07/15/17: D18. no transfusion. obtain blood cultures for fever spike last night. give potassium as ordered. monitor closely 07/14/17: D17. no transfusion. give IV potassium. notify cardiology of 6 beat run of V-tach overnight 07/13/17: D16. give 1unit pRBC, 1 unit platelets. facial swelling improved. start diflucan for thrush. 07/12/17: D15: no transfusion. monitor right-sided facial swelling. refusing MRI. continue antibiotics and lemon lozenges. 07/11/17: D14 No transfusion. Patient with right-sided facial swelling 07/10/17: D13 Hgb 7.9. Transfuse 1 unit irradiated PRBC's. K3.1. Transfuse total of 80 meq's to keep K greater than 4.0 per cardiology recs. Give 400mg magnesium oxide 4 mag level of 1.9 07/09/17: D12. hgb 8, platelet count of 7, will transfuse blood and platelets. 07/08/17: D11. continue antibiotics. monitor for fever 07/07/27: D10. give 1 unit pRBC and 1 unit platelets. continue antibiotics. 07/06/17: D9. no transfusion, spiked fever. start antibiotics, obtain cultures, u /a and chest x-ray. 07/05/17: D8. Transfuse 1 unit irradiated platelets today. Start Rydapt 50mg po BID x 14 days. 07/04/17: D7. no transfusion. monitor for fever 07/03/17: D6. 2 units pRBC. last day of chemotherapy 07/02/17: D5. 1 unit platelets. continue chemotherapy. 07/01/17: D4. 1 unit platelets. continue chemotherapy. 06/30/17: D3. Tolerating chemo. No transfusion today. 06/29/17: D2, give 2 units pRBC this AM. start chemotherapy this afternoon. 06/28/17: admission, D1 (2) Neutropenic fever ICD Codes: D70.9 - Neutropenia, unspecified; R50.81 - Fever presenting with conditions classified elsewhere Status: Resolved Plan: --last fever on 07/27 --BC 07/25: no growth --BC, 07/06 gram negative rods, Klebsiella Pneumoniae (3) Thrush ICD Codes: B37.0 - Candidal stomatitis Plan: --resolved. --on oral nystatin (4) Ventricular tachycardia (paroxysmal) ICD Codes: I47.2 - Ventricular tachycardia Plan: --seen by Dr. Barker, advises: keep her potassium levels above 4. Try to keep her magnesium levels near 2 or above. Assessment 57y/o female admitted for salvage chemotherapy with FLAG-AKASH for refractory acute myeloid leukemia. 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 awaiting bone marrow recovery. h/o Rheumatoid arthritis. Anxiety disorder. COPD. Depression. Hypercholesterolemia. Hypertension. Irregular heartbeat Attending Statement The exam, history, and the medical decision-making described in the above note were completed with the assistance of the mid-level provider. I reviewed and agree with the findings presented. I attest that I had a [id number] encounter with the patient on the same day, and personally performed and documented my assessment and findings in the medical record. Feels better. Ate hamburger yesterday and enjoyed it. Able to walk in the hallway twice with the walker. Encourage to continue that. Stop Merepenam and observe off the A/B while she is still in the hospital. Anticipitae d/c home on wednesday. Amina Castellanos Aug 04, 2017 10:27 April Fonseca MD Aug 04, 2017 23:20
[2017-08-04] MEDS: FILGRASTIM INJ 480 MCG in DEXTROSE 5% IN WATER INJ 50 ML IV SCH ×2 (13:30)
[2017-08-04] MEDS: LORazepam 2 MG/ML VIAL IV PUSH PRN ×2 (14:22→22:24)
[2017-08-05] VITALS (19 sets, daily range): BP systolic 93–113; BP diastolic 65–81; PULSE 72–110; RESP 16–17; TEMP 97.9–98.5; O2SAT 96–100
[2017-08-05] MEDS: ALPRAZolam 0.5 MG TAB PO PRN ×2 (01:08→22:10)
[2017-08-05] MEDS: ACYCLOVIR 200 MG CAP PO SCH ×3 (05:15→22:10)
[2017-08-05 05:45] LABS: HEMATOCRIT 25.3 % (35.0-46.0); HEMOGLOBIN 9.1 GM/DL (11.6-15.3); MEAN CELL VOLUME 78.7 FL (80.0-100.0); MEAN CORPUSCULAR HEMOGLOBIN 28.4 PG (27.0-34.0); MEAN PLATELET VOLUME 7.5 FL (7.0-11.0); RED BLOOD COUNT 3.21 MIL/MM3 (4.00-5.30); RED CELL DISTRIBUTION WIDTH 12.8 % (11.6-17.2); WHITE BLOOD COUNT 0.4 TH/MM3 (4.0-11.0)
[2017-08-05 05:52] LABS: BICARBONATE 29.3 MEQ/L (21.0-32.0); CALCIUM 9.1 MG/DL (8.5-10.1); CREATININE 0.47 MG/DL (0.50-1.00)
[2017-08-05 06:03] LABS: MEAN CORPUSCULAR HGB CONC 36.1 % (32.0-36.0)
[2017-08-05 06:06] LABS: PLATELET COUNT 9 TH/MM3 (150-450)
[2017-08-05] MEDS: CITALOPRAM HYDROBROMIDE 20 MG TAB PO SCH (08:32)
[2017-08-05] MEDS: NYSTATIN SUSP 500,000 U/5 ML CUP SWISH-SWAL SCH ×4 (08:32→19:54)
[2017-08-05] MEDS: amLODIPine BESYLATE 5 MG TAB PO SCH (08:32)
[2017-08-05] MEDS: MAGNESIUM OXIDE 400 MG TAB PO SCH ×2 (08:32→19:55)
[2017-08-05] MEDS: predniSONE 5 MG TAB PO SCH (08:32)
[2017-08-05] MEDS: PANTOPRAZOLE SOD 40 MG DELAYED RELEASE TAB PO SCH (08:32)
[2017-08-05] MEDS: ACETAMINOPHEN 325 MG TAB PO PRN (08:32)
[2017-08-05] MEDS: diphenhydrAMINE HCL 25 MG CAP PO PRN (08:32)
[2017-08-05] MEDS: LOSARTAN 50 MG TAB PO SCH (08:32)
[2017-08-05] MEDS: CARVEDILOL 3.125 MG TAB PO SCH ×2 (08:32→19:55)
[2017-08-05 08:49] LABS: ATYPICAL LYMPHOCYTES 10 % (0-0); BANDS 8 % (0-6); LYMPHOCYTES 22 % (9-44); MONOCYTES 12 % (0-8); NEUTROPHIL # MANUAL DIFF 0.2 TH/MM3 (1.8-7.7); POLYS (SEG NEUTROPHILS) 48 % (16-70)
[2017-08-05 08:50] LABS: DOHLE BODIES PRESENT (NONE SEEN); TOXIC GRANULATION 1+ (NORMAL)
[2017-08-05] MEDS: SODIUM CHLORIDE 0.9% FLUSH 10 ML FLUSH IV FLUSH SCH (09:00)
--- NOTE | 2017-08-05 09:04 | PD.ONC.PN ---
Subjective Subjective Remarks Afebrile overnight. Patient resting in bed in nad. No complaints. Ready to go home Wednesday. Objective Data Date Time Temp Pulse Resp B/P (MAP) Pulse Ox O2 Delivery O2 Flow Rate FiO2 08/05/17 07:20 98.5 78 16 112/80 (91) 96 08/05/17 05:01 98.0 82 16 113/81 (92) 97 08/05/17 04:00 82 08/05/17 03:00 78 08/05/17 02:00 72 08/05/17 01:00 80 08/05/17 00:00 76 08/05/17 00:00 98.2 87 17 102/65 (77) 98 08/05/17 00:00 78 08/04/17 23:00 84 08/04/17 22:18 97.9 84 16 124/78 (93) 96 08/04/17 22:00 76 08/04/17 21:00 86 08/04/17 20:00 90 08/04/17 20:00 90 08/04/17 19:00 94 08/04/17 17:21 80 08/04/17 15:10 98.8 87 18 104/79 (87) 93 08/04/17 11:39 98.4 86 18 126/88 (101) 97 08/04/17 11:18 85 Result Diagram: 08/05/17 0510 08/05/17 0510 Laboratory Results Laboratory Tests Test 08/05/17 05:10 White Blood Count 0.4 TH/MM3 Red Blood Count 3.21 MIL/MM3 Hemoglobin 9.1 GM/DL Hematocrit 25.3 % Mean Corpuscular Volume 78.7 FL Mean Corpuscular Hemoglobin 28.4 PG Mean Corpuscular Hemoglobin Concent 36.1 % Red Cell Distribution Width 12.8 % Platelet Count 9 TH/MM3 Mean Platelet Volume 7.5 FL CBC Comment AUTO DIFF Differential Total Cells Counted 50 Neutrophils % (Manual) 48 % Band Neutrophils % 8 % Lymphocytes % 22 % Monocytes % 12 % Neutrophils # (Manual) 0.2 TH/MM3 Differential Comment FINAL DIFF MANUAL Atypical Lymphocytes 10 % Toxic Granulation 1+ Dohle Bodies PRESENT Platelet Estimate RARE Platelet Morphology Comment NORMAL Blood Urea Nitrogen 12 MG/DL Creatinine 0.47 MG/DL Random Glucose 91 MG/DL Calcium Level 9.1 MG/DL Sodium Level 138 MEQ/L Potassium Level 4.7 MEQ/L Chloride Level 103 MEQ/L Carbon Dioxide Level 29.3 MEQ/L Anion Gap 6 MEQ/L Estimat Glomerular Filtration Rate 136 ML/MIN Administered Medications Medications (Trade) Dose Ordered Sig/Zeynep Route PRN Reason Start Time Stop Time Status Last Admin Dose Admin Prednisone (Deltasone) 5 mg DAILY PO 06/29/17 09:00 08/05/17 08:32 Losartan Potassium (Cozaar) 100 mg DAILY PO 06/29/17 09:00 08/05/17 08:32 Al Hydrox/Mg Hydrox/Simethicone (Mag-Al Plus Susp Liq) 15 ml Q6H PRN PO INDIGESTION 06/28/17 20:45 07/05/17 13:52 Ondansetron HCl (Zofran Inj) 4 mg Q6HR PRN IV PUSH nausea 06/29/17 10:15 07/26/17 03:01 Diphenhydramine HCl (Benadryl) 25 mg Q6H PRN PO itching 06/30/17 10:45 08/05/17 08:32 Acetaminophen (Tylenol) 650 mg Q4H PRN PO fever>100.4, PREMED, orpain1-2 07/01/17 10:45 08/05/17 08:32 Melatonin (Melatonin) 5 mg HS PRN PO insomnia 07/02/17 21:00 07/28/17 20:14 Carboxymethylcellulose Sodium (Refresh Tears 0.5% Opth Soln) 1 drop Q6H PRN EACH EYE dry eyes 07/04/17 11:30 07/04/17 19:44 Prochlorperazine Edisylate (Compazine Inj) 10 mg Q8H PRN IV PUSH nausea 07/05/17 10:15 07/18/17 22:34 Albuterol/ Ipratropium (Duoneb Neb) 1 ampule Q6HR NEB PRN NEB SHORTNESS OF BREATH 07/06/17 18:00 07/07/17 20:44 Guaifenesin/ Codeine Phosphate (Robitussin Ac 200-20 Mg/10 ml Liq) 10 ml Q4H PRN PO cough 07/07/17 13:30 07/11/17 21:05 Amlodipine Besylate (Norvasc) 5 mg DAILY PO 07/08/17 19:00 08/05/17 08:32 Citalopram Hydrobromide (CeleXA) 20 mg DAILY PO 07/12/17 09:00 08/05/17 08:32 Pantoprazole Sodium (Protonix) 40 mg DAILY PO 07/14/17 09:00 08/05/17 08:32 Magnesium Oxide (Mag-Ox) 400 mg BID PO 07/16/17 09:00 08/05/17 08:32 Enalaprilat (Vasotec Inj) 1.25 mg Q8H PRN IV PUSH SBP>160, DBP>90 07/18/17 17:15 07/28/17 13:34 Filgrastim 480 mcg/Dextrose 51.6 ml @ 100 mls/hr DAILY@14 IV 07/23/17 14:00 08/04/17 13:30 Alprazolam (Xanax) 0.5 mg Q8HR PRN PO anxiety 07/23/17 11:00 08/05/17 01:08 Sodium Chloride (NS Flush) See Protocol DAILY IV FLUSH 07/24/17 09:00 08/03/17 09:38 Heparin Sodium (Porcine) (Heparin Central Flush) See Protocol DAILY IV FLUSH 07/24/17 09:00 08/04/17 09:00 Heparin Sodium (Porcine) (Heparin Central Flush) See Protocol UNSCH PRN IV FLUSH SEE PROTOCOL TABLE 07/23/17 19:00 08/04/17 22:25 Sodium Chloride (NS Flush) UNSCH PRN IV FLUSH SEE PROTOCOL TABLE 07/23/17 19:00 07/28/17 14:56 Lorazepam (Ativan Inj) 0.5 mg Q4HR PRN IV PUSH anxiety 07/25/17 10:45 08/04/17 22:24 Nystatin (Mycostatin Liq) 5 ml QID SWISH-SWAL 07/25/17 13:00 08/05/17 08:32 Tramadol HCl (Ultram) 50 mg Q12H PRN PO pain 3-10 07/26/17 16:45 07/26/17 17:13 Carvedilol (Coreg) 3.125 mg Q12HR PO 07/28/17 21:00 08/05/17 08:32 Diphenhydramine HCl (Benadryl) 25 mg Q4H PRN PO BLOOD PRODUCT 07/30/17 12:45 08/03/17 11:39 Acyclovir (Zovirax) 400 mg Q8H PO 08/01/17 06:00 08/05/17 05:15 Potassium Chloride (KCl) 20 meq Q12HR PO 08/03/17 09:30 Future Hold 08/04/17 22:22 Objective Remarks GENERAL: Pleasant female, sitting up on side of bed in nad. SKIN: Warm and dry. +alopecia. HEAD: Normocephalic. EYES: No injection or drainage. NECK: Supple, trachea midline. CARDIOVASCULAR: Regular rate and rhythm RESPIRATORY: Breath sounds equal bilaterally. No accessory muscle use. GASTROINTESTINAL: Abdomen soft, non-tender, nondistended. EXTREMITIES: No cyanosis MUSCULOSKELETAL: Adequate muscle tone. NEUROLOGICAL: awake and alert. normal speech. 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 1 unit platelets. monitor for fever. hopeful for marrow recovery soon. 08/04/17: D38. No transfusion today. Stop meropenem as she has completed course. See how she does off antibiotics with no prophylaxis prior to anticipated discharge on Wednesday. Discussed with Dr. Odell. 08/03/17: D37. give 1 unit platelets. monitor electrolytes. plan for discharge next week. 08/02/17: D36. give 1 unit pRBC today. stop IVF. continue Neupogen 08/01/17: D35. Monitor CBC. No transfusion today. Continue Neupogen. 07/31/17: D34. No transfusion today. Continue Neupogen. Monitor CBC. Await bone marrow recovery. 07/30/17 D33 . Plat tx today. ANC 0 . But no more fever. Continue neupogen. Extensive d/w pt. AWait BM recovery. 07/29/17: D32. Vanco on hold. Continue Neupogen. Blood pressure better controlled with increased Coreg. No transfusion today. Monitor CBC, BMP and magnesium. Monitor for fevers. 07/28/17: D31. + drug eruption on back. I've asked the nurse to hold vanco and notify ID of drug eruption. will give PO benadryl. increase coreg for elevated blood pressures 07/27/17: D30. 2 units pRBC. monitor blood counts. continue neupogen. 07/26/17: D29. Transfuse 1 unit platelets for level of 4K. Have IR evaluate picc. Continue neupogen until counts recovered. Monitor CBC 07/25/17: D28 18: D27 07/23/17: D26: monitor CBC await counts recovery. consult invasive to remove port. consult vascular for PICC line. 07/22/17: D25. hgb 5, platelets 6, give 2 units pRBC and 1 unit platelets. bone marrow biopsy shows empty bone marrow--no blasts. 07/21/17 D 24 . BM bx is still pending. I have called [facility]. There is a delay in getting the specimen. They willl run today and will call me. BM morphology is pending. Call place to pathologist Dr Melendez. NO TX today. ANC is 0. D/W BMT team at [facility]. willl follow. 07/20/17: D.23. await path from bone marrow biopsy. continue fluids, electrolyte replacement. 07/19/17: D22. bone marrow biopsy today. transfuse 1 unit platelets. start NS+ 40K @84cc/hr continuous infusion. check magnesium. 07/18/17 D21: Blood cultures pending from fever spike yesterday. Transfuse 2 units packed red blood cells for hemoglobin of 6.6. Plan to transfuse a total of 80 mEq potassium for level 3.4 today. Repeat bone marrow biopsy in a.m. 07/17/17: D20:Await CBC today. May have to have vascular place peripheral IV if unable to get blood return from [id number]. Replace Potassium today. Await CT neck. Pt agrees to imaging. 07/16/17: D19. give [address] neck for enlarging subinguinal LN ? continue antibiotics. increase Magnesium to BID. continue IV Potassium. 07/15/17: D18. no transfusion. obtain blood cultures for fever spike last night. give potassium as ordered. monitor closely 07/14/17: D17. no transfusion. give IV potassium. notify cardiology of 6 beat run of V-tach overnight 07/13/17: D16. give 1unit pRBC, 1 unit platelets. facial swelling improved. start diflucan for thrush. 07/12/17: D15: no transfusion. monitor right-sided facial swelling. refusing MRI. continue antibiotics and lemon lozenges. 07/11/17: D14 No transfusion. Patient with right-sided facial swelling 07/10/17: D13 Hgb 7.9. Transfuse 1 unit irradiated PRBC's. K3.1. Transfuse total of 80 meq's to keep K greater than 4.0 per cardiology recs. Give 400mg magnesium oxide 4 mag level of 1.9 07/09/17: D12. hgb 8, platelet count of 7, will transfuse blood and platelets. 07/08/17: D11. continue antibiotics. monitor for fever 07/07/27: D10. give 1 unit pRBC and 1 unit platelets. continue antibiotics. 07/06/17: D9. no transfusion, spiked fever. start antibiotics, obtain cultures, u /a and chest x-ray. 07/05/17: D8. Transfuse 1 unit irradiated platelets today. Start Rydapt 50mg po BID x 14 days. 07/04/17: D7. no transfusion. monitor for fever 07/03/17: D6. 2 units pRBC. last day of chemotherapy 07/02/17: D5. 1 unit platelets. continue chemotherapy. 07/01/17: D4. 1 unit platelets. continue chemotherapy. 06/30/17: D3. Tolerating chemo. No transfusion today. 06/29/17: D2, give 2 units pRBC this AM. start chemotherapy this afternoon. 06/28/17: admission, D1 (2) Neutropenic fever ICD Codes: D70.9 - Neutropenia, unspecified; R50.81 - Fever presenting with conditions classified elsewhere Status: Resolved Plan: --last fever on 07/27 --BC 07/25: no growth --BC, 07/06 gram negative rods, Klebsiella Pneumoniae (3) Ventricular tachycardia (paroxysmal) ICD Codes: I47.2 - Ventricular tachycardia Plan: --seen by Dr. Barker, advises: keep her potassium levels above 4. Try to keep her magnesium levels near 2 or above. Assessment 57y/o female admitted for salvage chemotherapy with FLAG-AKASH for refractory acute myeloid leukemia. 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 awaiting bone marrow recovery. h/o Rheumatoid arthritis. Anxiety disorder. COPD. Depression. Hypercholesterolemia. Hypertension. Irregular heartbeat Attending Statement The exam, history, and the medical decision-making described in the above note were completed with the assistance of the mid-level provider. I reviewed and agree with the findings presented. I attest that I had a [id number] encounter with the patient on the same day, and personally performed and documented my assessment and findings in the medical record. No C/O Hungry , waiting for breakfast. Plat tx today. Off of A/B , remains afebrile. Julianna Mcdaniel Aug 05, 2017 09:04 April Fonseca MD Aug 05, 2017 21:19
[2017-08-05] MEDS: FILGRASTIM INJ 480 MCG in DEXTROSE 5% IN WATER INJ 50 ML IV SCH ×2 (14:52)
[2017-08-06] VITALS (24 sets, daily range): BP systolic 93–135; BP diastolic 57–90; PULSE 66–87; RESP 16; TEMP 97.1–98.5; O2SAT 96–98
[2017-08-06] MEDS: LORazepam 2 MG/ML VIAL IV PUSH PRN (00:09)
[2017-08-06] MEDS: ACYCLOVIR 200 MG CAP PO SCH ×3 (05:00→22:12)
[2017-08-06] MEDS: traMADol HCL 50 MG TAB PO PRN (05:24)
[2017-08-06 06:00] LABS: HEMATOCRIT 18.5 % (35.0-46.0); MEAN CELL VOLUME 79.6 FL (80.0-100.0); MEAN CORPUSCULAR HEMOGLOBIN 28.6 PG (27.0-34.0); MEAN PLATELET VOLUME 9.7 FL (7.0-11.0); PLATELET COUNT 25 TH/MM3 (150-450); RED BLOOD COUNT 2.32 MIL/MM3 (4.00-5.30); RED CELL DISTRIBUTION WIDTH 12.8 % (11.6-17.2); WHITE BLOOD COUNT 0.4 TH/MM3 (4.0-11.0)
[2017-08-06 06:05] LABS: HEMOGLOBIN 6.6 GM/DL (11.6-15.3)
[2017-08-06 06:21] LABS: BICARBONATE 28.2 MEQ/L (21.0-32.0); CALCIUM 8.8 MG/DL (8.5-10.1); CREATININE 0.59 MG/DL (0.50-1.00)
[2017-08-06 07:05] LABS: BANDS 20 % (0-6); DOHLE BODIES PRESENT (NONE SEEN); LYMPHOCYTES 13 % (9-44); MONOCYTES 20 % (0-8); NEUTROPHIL # MANUAL DIFF 0.3 TH/MM3 (1.8-7.7); POLYS (SEG NEUTROPHILS) 47 % (16-70)
--- NOTE | 2017-08-06 08:25 | PD.ONC.PN ---
Subjective Subjective Remarks Afebrile overnight. Patient resting in bed in nad. No complaints. Slept well last night. denies pain. Objective Data Date Time Temp Pulse Resp B/P (MAP) Pulse Ox O2 Delivery O2 Flow Rate FiO2 08/06/17 05:00 82 08/06/17 04:56 98.5 86 16 109/75 (86) 97 08/06/17 04:06 81 08/06/17 03:00 80 08/06/17 02:00 78 08/06/17 01:00 76 08/06/17 00:05 98.2 82 16 116/81 (93) 98 08/06/17 00:02 81 08/05/17 23:00 78 08/05/17 22:00 84 08/05/17 21:00 82 08/05/17 20:07 78 08/05/17 19:50 98.1 99 16 113/78 (90) 99 08/05/17 19:00 110 08/05/17 18:42 98.5 80 16 105/73 (84) 100 08/05/17 16:16 73 08/05/17 12:00 73 08/05/17 10:50 97.9 94 16 93/68 98 08/05/17 09:29 98.2 89 16 98/68 99 08/06/17 08/06/17 08/06/17 07:00 15:00 23:00 Intake Total 720 ml Balance 720 ml Result Diagram: 08/06/17 0520 08/06/17 0520 Laboratory Results Laboratory Tests Test 08/06/17 05:20 White Blood Count 0.4 TH/MM3 Red Blood Count 2.32 MIL/MM3 Hemoglobin 6.6 GM/DL Hematocrit 18.5 % Mean Corpuscular Volume 79.6 FL Mean Corpuscular Hemoglobin 28.6 PG Mean Corpuscular Hemoglobin Concent 36.0 % Red Cell Distribution Width 12.8 % Platelet Count 25 TH/MM3 Mean Platelet Volume 9.7 FL CBC Comment AUTO DIFF Differential Total Cells Counted 15 Neutrophils % (Manual) 47 % Band Neutrophils % 20 % Lymphocytes % 13 % Monocytes % 20 % Neutrophils # (Manual) 0.3 TH/MM3 Differential Comment FINAL DIFF MANUAL Dohle Bodies PRESENT Platelet Estimate LOW Platelet Morphology Comment NORMAL Blood Urea Nitrogen 15 MG/DL Creatinine 0.59 MG/DL Random Glucose 98 MG/DL Calcium Level 8.8 MG/DL Sodium Level 136 MEQ/L Potassium Level 4.3 MEQ/L Chloride Level 102 MEQ/L Carbon Dioxide Level 28.2 MEQ/L Anion Gap 6 MEQ/L Estimat Glomerular Filtration Rate 104 ML/MIN Administered Medications Medications (Trade) Dose Ordered Sig/Zeynep Route PRN Reason Start Time Stop Time Status Last Admin Dose Admin Prednisone (Deltasone) 5 mg DAILY PO 06/29/17 09:00 08/05/17 08:32 Losartan Potassium (Cozaar) 100 mg DAILY PO 06/29/17 09:00 08/05/17 08:32 Al Hydrox/Mg Hydrox/Simethicone (Mag-Al Plus Susp Liq) 15 ml Q6H PRN PO INDIGESTION 06/28/17 20:45 07/05/17 13:52 Ondansetron HCl (Zofran Inj) 4 mg Q6HR PRN IV PUSH nausea 06/29/17 10:15 07/26/17 03:01 Diphenhydramine HCl (Benadryl) 25 mg Q6H PRN PO itching 06/30/17 10:45 08/05/17 08:32 Acetaminophen (Tylenol) 650 mg Q4H PRN PO fever>100.4, PREMED, orpain1-2 07/01/17 10:45 08/05/17 08:32 Melatonin (Melatonin) 5 mg HS PRN PO insomnia 07/02/17 21:00 07/28/17 20:14 Carboxymethylcellulose Sodium (Refresh Tears 0.5% Opth Soln) 1 drop Q6H PRN EACH EYE dry eyes 07/04/17 11:30 07/04/17 19:44 Prochlorperazine Edisylate (Compazine Inj) 10 mg Q8H PRN IV PUSH nausea 07/05/17 10:15 07/18/17 22:34 Albuterol/ Ipratropium (Duoneb Neb) 1 ampule Q6HR NEB PRN NEB SHORTNESS OF BREATH 07/06/17 18:00 07/07/17 20:44 Guaifenesin/ Codeine Phosphate (Robitussin Ac 200-20 Mg/10 ml Liq) 10 ml Q4H PRN PO cough 07/07/17 13:30 07/11/17 21:05 Amlodipine Besylate (Norvasc) 5 mg DAILY PO 07/08/17 19:00 08/05/17 08:32 Citalopram Hydrobromide (CeleXA) 20 mg DAILY PO 07/12/17 09:00 08/05/17 08:32 Pantoprazole Sodium (Protonix) 40 mg DAILY PO 07/14/17 09:00 08/05/17 08:32 Magnesium Oxide (Mag-Ox) 400 mg BID PO 07/16/17 09:00 08/05/17 19:55 Enalaprilat (Vasotec Inj) 1.25 mg Q8H PRN IV PUSH SBP>160, DBP>90 07/18/17 17:15 07/28/17 13:34 Filgrastim 480 mcg/Dextrose 51.6 ml @ 100 mls/hr DAILY@14 IV 07/23/17 14:00 08/05/17 14:52 Alprazolam (Xanax) 0.5 mg Q8HR PRN PO anxiety 07/23/17 11:00 08/05/17 22:10 Sodium Chloride (NS Flush) See Protocol DAILY IV FLUSH 07/24/17 09:00 08/03/17 09:38 Heparin Sodium (Porcine) (Heparin Central Flush) See Protocol DAILY IV FLUSH 07/24/17 09:00 08/04/17 09:00 Heparin Sodium (Porcine) (Heparin Central Flush) See Protocol UNSCH PRN IV FLUSH SEE PROTOCOL TABLE 07/23/17 19:00 08/04/17 22:25 Sodium Chloride (NS Flush) UNSCH PRN IV FLUSH SEE PROTOCOL TABLE 07/23/17 19:00 07/28/17 14:56 Lorazepam (Ativan Inj) 0.5 mg Q4HR PRN IV PUSH anxiety 07/25/17 10:45 08/06/17 00:09 Nystatin (Mycostatin Liq) 5 ml QID SWISH-SWAL 07/25/17 13:00 08/05/17 19:54 Tramadol HCl (Ultram) 50 mg Q12H PRN PO pain 3-10 07/26/17 16:45 08/06/17 05:24 Carvedilol (Coreg) 3.125 mg Q12HR PO 07/28/17 21:00 08/05/17 19:55 Diphenhydramine HCl (Benadryl) 25 mg Q4H PRN PO BLOOD PRODUCT 07/30/17 12:45 08/03/17 11:39 Acyclovir (Zovirax) 400 mg Q8H PO 08/01/17 06:00 08/06/17 05:00 Potassium Chloride (KCl) 20 meq Q12HR PO 08/03/17 09:30 Future Hold 08/04/17 22:22 Objective Remarks GENERAL: Pleasant female, sitting up in bed in nad. SKIN: Warm and dry. +alopecia. HEAD: Normocephalic. EYES: No injection or drainage. NECK: Supple, trachea midline. CARDIOVASCULAR: Regular rate and rhythm RESPIRATORY: Breath sounds equal bilaterally. No accessory muscle use. GASTROINTESTINAL: Abdomen soft, non-tender, nondistended. EXTREMITIES: No cyanosis MUSCULOSKELETAL: Adequate muscle tone. NEUROLOGICAL: awake, alert. normal speech. no focal deficit. 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 1 unit pRBC. remains afebrile. counts starting to recover. 08/05/17: D39. 1 unit platelets. monitor for fever. hopeful for marrow recovery soon. 08/04/17: D38. No transfusion today. Stop meropenem as she has completed course. See how she does off antibiotics with no prophylaxis prior to anticipated discharge on Wednesday. Discussed with Dr. Odell. 08/03/17: D37. give 1 unit platelets. monitor electrolytes. plan for discharge next week. 08/02/17: D36. give 1 unit pRBC today. stop IVF. continue Neupogen 08/01/17: D35. Monitor CBC. No transfusion today. Continue Neupogen. 07/31/17: D34. No transfusion today. Continue Neupogen. Monitor CBC. Await bone marrow recovery. 07/30/17 D33 . Plat tx today. ANC 0 . But no more fever. Continue neupogen. Extensive d/w pt. AWait BM recovery. 07/29/17: D32. Vanco on hold. Continue Neupogen. Blood pressure better controlled with increased Coreg. No transfusion today. Monitor CBC, BMP and magnesium. Monitor for fevers. 07/28/17: D31. + drug eruption on back. I've asked the nurse to hold vanco and notify ID of drug eruption. will give PO benadryl. increase coreg for elevated blood pressures 07/27/17: D30. 2 units pRBC. monitor blood counts. continue neupogen. 07/26/17: D29. Transfuse 1 unit platelets for level of 4K. Have IR evaluate picc. Continue neupogen until counts recovered. Monitor CBC 07/25/17: D28 07/24/17: D27 07/23/17: D26: monitor CBC await counts recovery. consult invasive to remove port. consult vascular for PICC line. 07/22/17: D25. hgb 5, platelets 6, give 2 units pRBC and 1 unit platelets. bone marrow biopsy shows empty bone marrow--no blasts. 07/21/17 D 24 . BM bx is still pending. I have called [facility]. There is a delay in getting the specimen. They willl run today and will call me. BM morphology is pending. Call place to pathologist Dr Melendez. NO TX today. ANC is 0. D/W BMT team at [facility]. willl follow. 07/20/17: D.23. await path from bone marrow biopsy. continue fluids, electrolyte replacement. 07/19/17: D22. bone marrow biopsy today. transfuse 1 unit platelets. start NS+ 40K @84cc/hr continuous infusion. check magnesium. 07/18/17 D21: Blood cultures pending from fever spike yesterday. Transfuse 2 units packed red blood cells for hemoglobin of 6.6. Plan to transfuse a total of 80 mEq potassium for level 3.4 today. Repeat bone marrow biopsy in a.m. 07/17/17: D20:Await CBC today. May have to have vascular place peripheral IV if unable to get blood return from [id number]. Replace Potassium today. Await CT neck. Pt agrees to imaging. 07/16/17: D19. give [address] neck for enlarging subinguinal LN ? continue antibiotics. increase Magnesium to BID. continue IV Potassium. 07/15/17: D18. no transfusion. obtain blood cultures for fever spike last night. give potassium as ordered. monitor closely 3/7/18: D17. no transfusion. give IV potassium. notify cardiology of 6 beat run of V-tach overnight 07/13/17: D16. give 1unit pRBC, 1 unit platelets. facial swelling improved. start diflucan for thrush. 07/12/17: D15: no transfusion. monitor right-sided facial swelling. refusing MRI. continue antibiotics and lemon lozenges. 07/11/17: D14 No transfusion. Patient with right-sided facial swelling 07/10/17: D13 Hgb 7.9. Transfuse 1 unit irradiated PRBC's. K3.1. Transfuse total of 80 meq's to keep K greater than 4.0 per cardiology recs. Give 400mg magnesium oxide 4 mag level of 1.9 07/09/17: D12. hgb 8, platelet count of 7, will transfuse blood and platelets. 07/08/17: D11. continue antibiotics. monitor for fever 07/07/27: D10. give 1 unit pRBC and 1 unit platelets. continue antibiotics. 07/06/17: D9. no transfusion, spiked fever. start antibiotics, obtain cultures, u /a and chest x-ray. 07/05/17: D8. Transfuse 1 unit irradiated platelets today. Start Rydapt 50mg po BID x 14 days. 07/04/17: D7. no transfusion. monitor for fever 07/03/17: D6. 2 units pRBC. last day of chemotherapy 07/02/17: D5. 1 unit platelets. continue chemotherapy. 07/01/17: D4. 1 unit platelets. continue chemotherapy. 06/30/17: D3. Tolerating chemo. No transfusion today. 06/29/17: D2, give 2 units pRBC this AM. start chemotherapy this afternoon. 06/28/17: admission, D1 (2) Neutropenic fever ICD Codes: D70.9 - Neutropenia, unspecified; R50.81 - Fever presenting with conditions classified elsewhere Status: Resolved Plan: --last fever on 07/27 --BC 07/25: no growth --BC, 07/06 gram negative rods, Klebsiella Pneumoniae (3) Ventricular tachycardia (paroxysmal) ICD Codes: I47.2 - Ventricular tachycardia Plan: --seen by Dr. Barker, advises: keep her potassium levels above 4. Try to keep her magnesium levels near 2 or above. Assessment 57y/o female admitted for salvage chemotherapy with FLAG-AKASH for refractory acute myeloid leukemia. 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 awaiting bone marrow recovery. h/o Rheumatoid arthritis. Anxiety disorder. COPD. Depression. Hypercholesterolemia. Hypertension. Irregular heartbeat Julianna Mcdaniel Aug 06, 2017 08:25
[2017-08-06] MEDS: CITALOPRAM HYDROBROMIDE 20 MG TAB PO SCH (08:37)
[2017-08-06] MEDS: PANTOPRAZOLE SOD 40 MG DELAYED RELEASE TAB PO SCH (08:37)
[2017-08-06] MEDS: LOSARTAN 50 MG TAB PO SCH (08:37)
[2017-08-06] MEDS: amLODIPine BESYLATE 5 MG TAB PO SCH (08:37)
[2017-08-06] MEDS: predniSONE 5 MG TAB PO SCH (08:37)
[2017-08-06] MEDS: CARVEDILOL 3.125 MG TAB PO SCH ×2 (08:38→19:47)
[2017-08-06] MEDS: MAGNESIUM OXIDE 400 MG TAB PO SCH ×2 (08:38→19:47)
[2017-08-06] MEDS: NYSTATIN SUSP 500,000 U/5 ML CUP SWISH-SWAL SCH ×4 (08:39→19:48)
[2017-08-06] MEDS: SODIUM CHLORIDE 0.9% FLUSH 10 ML FLUSH IV FLUSH SCH (08:42)
[2017-08-06] MEDS: FILGRASTIM INJ 480 MCG in DEXTROSE 5% IN WATER INJ 50 ML IV SCH ×2 (13:15)
[2017-08-06] MEDS: ACETAMINOPHEN 325 MG TAB PO PRN (13:51)
[2017-08-06] MEDS: diphenhydrAMINE HCL 25 MG CAP PO PRN (13:51)
--- NOTE | 2017-08-06 16:04 | HHI.IDPN ---
Subjective Subjective Remarks no fever no diarrhea ANC is 300 doing well afebrile no diarrhea no new problems Antibiotics acyclovir Lines Line sites with no e.o infection Port site ok. Past Medical History Past h/o Kleb pneumo bacteremia in May 2017. Allergies: Coded Allergies: cefepime (Verified Allergy, Severe, HIVES, 06/25/17) latex (Unverified Allergy, Severe, Rash, 06/25/17) vancomycin (Verified Allergy, Intermediate, Rash, 07/30/17) Sulfa (Sulfonamide Antibiotics) (Unverified Adverse Reaction, Severe, Vomiting, cramps, 06/25/17) Objective . Vital Signs Date Time Temp Pulse Resp B/P (MAP) Pulse Ox O2 Delivery O2 Flow Rate FiO2 08/06/17 14:05 98.0 82 16 93/67 98 08/06/17 13:47 97.8 77 16 113/76 96 08/06/17 12:35 71 08/06/17 11:47 98.2 77 16 98/57 (71) 96 08/06/17 11:41 98.2 77 16 98/57 96 08/06/17 11:03 98.1 83 16 101/69 96 08/06/17 10:38 97.1 82 16 103/67 97 08/06/17 08:30 98.2 87 16 113/81 (92) 96 08/06/17 08:00 82 08/06/17 05:00 82 08/06/17 04:56 98.5 86 16 109/75 (86) 97 08/06/17 04:06 81 08/06/17 03:00 80 08/06/17 02:00 78 08/06/17 01:00 76 08/06/17 00:05 98.2 82 16 116/81 (93) 98 08/06/17 00:02 81 08/05/17 23:00 78 08/05/17 22:00 84 08/05/17 21:00 82 08/05/17 20:07 78 08/05/17 19:50 98.1 99 16 113/78 (90) 99 08/05/17 19:00 110 08/05/17 18:42 98.5 80 16 105/73 (84) 100 08/05/17 16:16 73 08/06/17 08/06/17 08/07/17 15:00 23:00 07:00 Intake Total 435 ml Balance 435 ml Packed Cells 400 ml Blood Product IV Normal Saline Flush 35 ml . Laboratory Tests Test 08/05/17 05:10 08/06/17 05:20 White Blood Count 0.4 TH/MM3 0.4 TH/MM3 Red Blood Count 3.21 MIL/MM3 2.32 MIL/MM3 Hemoglobin 9.1 GM/DL 6.6 GM/DL Hematocrit 25.3 % 18.5 % Mean Corpuscular Volume 78.7 FL 79.6 FL Mean Corpuscular Hemoglobin 28.4 PG 28.6 PG Mean Corpuscular Hemoglobin Concent 36.1 % 36.0 % Red Cell Distribution Width 12.8 % 12.8 % Platelet Count 9 TH/MM3 25 TH/MM3 Mean Platelet Volume 7.5 FL 9.7 FL CBC Comment AUTO DIFF AUTO DIFF Differential Total Cells Counted 50 15 Neutrophils % (Manual) 48 % 47 % Band Neutrophils % 8 % 20 % Lymphocytes % 22 % 13 % Monocytes % 12 % 20 % Neutrophils # (Manual) 0.2 TH/MM3 0.3 TH/MM3 Differential Comment FINAL DIFF MANUAL FINAL DIFF MANUAL Atypical Lymphocytes 10 % Toxic Granulation 1+ Dohle Bodies PRESENT PRESENT Platelet Estimate RARE LOW Platelet Morphology Comment NORMAL NORMAL Laboratory Tests Test 08/05/17 05:10 08/06/17 05:20 Blood Urea Nitrogen 12 MG/DL 15 MG/DL Creatinine 0.47 MG/DL 0.59 MG/DL Random Glucose 91 MG/DL 98 MG/DL Calcium Level 9.1 MG/DL 8.8 MG/DL Sodium Level 138 MEQ/L 136 MEQ/L Potassium Level 4.7 MEQ/L 4.3 MEQ/L Chloride Level 103 MEQ/L 102 MEQ/L Carbon Dioxide Level 29.3 MEQ/L 28.2 MEQ/L Anion Gap 6 MEQ/L 6 MEQ/L Estimat Glomerular Filtration Rate 136 ML/MIN 104 ML/MIN Imaging Last Impressions Port Line Revision 07/23/17 0000 Signed Impressions: Service Date/Time: Sunday, July 23, 2017 00:00 - CONCLUSION: Uncomplicated port removal as above. Reinier Castro MD Bone Biopsy CT 07/19/17 1521 Signed Impressions: Service Date/Time: Wednesday, July 19, 2017 15:58 - CONCLUSION: 1. Uncomplicated CT guided bone marrow aspirate. 2. Uncomplicated CT guided bone marrow biopsy. Malcolm Coker MD Chest X-Ray 07/17/17 0000 Signed Impressions: Service Date/Time: Monday, July 17, 2017 13:49 - CONCLUSION: Mild patchy peripheral lower lung zone opacity unchanged. Mild chronic cardiac silhouette enlargement. Logan Walton MD Neck CT 07/16/17 0000 Signed Impressions: Service Date/Time: Monday, July 17, 2017 16:22 - CONCLUSION: Stranding of fat in the submandibular anterior soft tissues extending into the deeper soft tissues anterior to the carotid arteries, worse on the left side. There is also some mild inflammatory changes around subcentimeter lymph nodes along the left carotid lymph node chain. Findings are most characteristic of a cellulitis with some early reactive changes in the left-sided cervical lymph nodes. Jacinto Tello MD Upper Extremity Ultrasound 07/11/17 0000 Signed Impressions: Service Date/Time: Tuesday, July 11, 2017 16:40 - CONCLUSION: Normal examination. Mt Vance MD Head CT 07/08/17 0000 Signed Impressions: Service Date/Time: July 19:55 - CONCLUSION: No acute disease. Malcolm Coker MD Physical Exam CONSTITUTIONAL/GENERAL: Awake and alert, NAD, looks fatigued previous PORT site covered with dressing, intact SKIN: no rash Alopecia EYES: Pupils equal and round and reactive. Extraocular motions intact. No scleral icterus. No injection or drainage. Fundi not examined. HEENT: . L submandibular - residual non tender mass, much smaller CARDIOVASCULAR: Regular rate and rhythm without murmurs, gallops, or rubs. RESPIRATORY/CHEST: Clear to auscultation. Breath sounds equal bilaterally. No wheezes, rales, or rhonchi. GASTROINTESTINAL: Abdomen soft, non-tender, nondistended. MUSCULOSKELETAL: Extremities without clubbing, cyanosis, no edema. No calf tenderness NEUROLOGICAL: awake and alert Non focal PSYCHIATRIC: Calm. Assessment & Plan Remarks Sepsis in an Immune compromised host. New fevers ? new infection. ? PORT - removed Kleb pneumo bacteremia, recurrent ? source (PORT?) This appears recurrent similar Kleb pneumo bacteremia in May 2017. 2 D echo negative from 06/30 US negative for thrombosys Sialoadenitis/Parotitis: nearly resolved clinically Cold sore ? HSV Possible line infection Severely immunocompromised, neutropenic. AML sp chemo ANC improving Neutropenia, neutropenic fever - resolved on current abx - persistent absolute neutropenia C.diff - improved diarrhea R sided parotitis, Staph including MRSA is primary consideration: clinically appears to resolvesd New issue: rash - most likley low grade allergic reaction to one of the multiple abx HIveas with cefepime Recs: no need to cont abx after dc cont oral acyclovir. OK to dc from Brittney Lucas MD Aug 06, 2017 16:04
[2017-08-06] MEDS: ALPRAZolam 0.5 MG TAB PO PRN (22:12)
[2017-08-07] VITALS (28 sets, daily range): BP systolic 116–138; BP diastolic 77–97; PULSE 65–96; RESP 16–18; TEMP 98.3–98.8; O2SAT 95–99
[2017-08-07] MEDS: ACYCLOVIR 200 MG CAP PO SCH ×3 (04:58→21:54)
[2017-08-07] MEDS: traMADol HCL 50 MG TAB PO PRN (05:09)
[2017-08-07 05:53] LABS: AUTOMATED NEUTROPHIL # 0.3 TH/MM3 (1.8-7.7); BASOPHIL % 0.3 % (0.0-2.0); EOSINOPHIL % 3.2 % (0.0-4.0); HEMATOCRIT 26.4 % (35.0-46.0); HEMOGLOBIN 9.5 GM/DL (11.6-15.3); LYMPH % 11.1 % (9.0-44.0); LYMPHOCYTE # 0.1 TH/MM3 (1.0-4.8); MEAN CELL VOLUME 81.8 FL (80.0-100.0); MEAN CORPUSCULAR HEMOGLOBIN 29.4 PG (27.0-34.0); MEAN CORPUSCULAR HGB CONC 35.9 % (32.0-36.0); MEAN PLATELET VOLUME 8.8 FL (7.0-11.0); MONO % 39.8 % (0.0-8.0); MONOCYTE # 0.2 TH/MM3 (0-0.9); NEUT % 45.6 % (16.0-70.0); RED BLOOD COUNT 3.23 MIL/MM3 (4.00-5.30); WHITE BLOOD COUNT 0.6 TH/MM3 (4.0-11.0)
[2017-08-07 06:00] LABS: PLATELET COUNT 15 TH/MM3 (150-450)
[2017-08-07 06:03] LABS: BICARBONATE 29.2 MEQ/L (21.0-32.0); CALCIUM 8.7 MG/DL (8.5-10.1); CREATININE 0.52 MG/DL (0.50-1.00)
[2017-08-07 07:51] LABS: BANDS 19 % (0-6); CORRECTED NUCLEATED RBC 2 /100 WBC (0-0); LYMPHOCYTES 14 % (9-44); MONOCYTES 16 % (0-8); NEUTROPHIL # MANUAL DIFF 0.4 TH/MM3 (1.8-7.7); NUCLEATED RED BLOOD CELL 1 (0-0); POLYS (SEG NEUTROPHILS) 51 % (16-70)
[2017-08-07 07:53] LABS: DOHLE BODIES PRESENT (NONE SEEN); TOXIC GRANULATION 1+ (NORMAL)
--- NOTE | 2017-08-07 08:41 | PD.ONC.PN ---
Subjective Subjective Remarks Afebrile overnight. Patient resting in bed. Having normal bowel movements. denies pain. ate dinner last night. hopeful to go home next week. Objective Data Date Time Temp Pulse Resp B/P (MAP) Pulse Ox O2 Delivery O2 Flow Rate FiO2 08/07/17 07:46 98.5 79 16 126/89 (101) 95 08/07/17 07:00 70 08/07/17 06:00 72 08/07/17 05:00 86 08/07/17 04:56 98.3 88 18 121/88 (99) 96 08/07/17 04:00 77 08/07/17 03:00 66 08/07/17 02:00 72 08/07/17 01:00 72 08/07/17 00:07 98.6 77 138/89 (105) 95 08/07/17 00:03 73 08/06/17 23:00 68 08/06/17 22:00 72 08/06/17 21:00 72 08/06/17 20:14 70 08/06/17 19:49 98.3 84 16 114/85 (95) 97 08/06/17 16:09 66 08/06/17 16:08 98.0 66 16 135/90 (105) 97 08/06/17 14:05 98.0 82 16 93/67 98 08/06/17 13:47 97.8 77 16 113/76 96 08/06/17 12:35 71 08/06/17 11:47 98.2 77 16 98/57 (71) 96 08/06/17 11:41 98.2 77 16 98/57 96 08/06/17 11:03 98.1 83 16 101/69 96 08/06/17 10:38 97.1 82 16 103/67 97 08/07/17 08/07/17 08/07/17 07:00 15:00 23:00 Intake Total 120 ml Balance 120 ml Result Diagram: 08/07/17 04508/07/17 045 Laboratory Results Laboratory Tests Test 08/07/17 04:52 White Blood Count 0.6 TH/MM3 Red Blood Count 3.23 MIL/MM3 Hemoglobin 9.5 GM/DL Hematocrit 26.4 % Mean Corpuscular Volume 81.8 FL Mean Corpuscular Hemoglobin 29.4 PG Mean Corpuscular Hemoglobin Concent 35.9 % Red Cell Distribution Width 14.0 % Platelet Count 15 TH/MM3 Mean Platelet Volume 8.8 FL Neutrophils (%) (Auto) 45.6 % Lymphocytes (%) (Auto) 11.1 % Monocytes (%) (Auto) 39.8 % Eosinophils (%) (Auto) 3.2 % Basophils (%) (Auto) 0.3 % Neutrophils # (Auto) 0.3 TH/MM3 Lymphocytes # (Auto) 0.1 TH/MM3 Monocytes # (Auto) 0.2 TH/MM3 Eosinophils # (Auto) 0.0 TH/MM3 Basophils # (Auto) 0.0 TH/MM3 CBC Comment AUTO DIFF Differential Total Cells Counted 43 Neutrophils % (Manual) 51 % Band Neutrophils % 19 % Lymphocytes % 14 % Monocytes % 16 % Neutrophils # (Manual) 0.4 TH/MM3 Nucleated Red Blood Cells 2 /100 WBC Differential Comment FINAL DIFF MANUAL Toxic Granulation 1+ Dohle Bodies PRESENT Platelet Estimate RARE Platelet Morphology Comment NORMAL Red Cell Morphology Comment NORMAL Blood Urea Nitrogen 15 MG/DL Creatinine 0.52 MG/DL Random Glucose 88 MG/DL Calcium Level 8.7 MG/DL Sodium Level 139 MEQ/L Potassium Level 4.0 MEQ/L Chloride Level 103 MEQ/L Carbon Dioxide Level 29.2 MEQ/L Anion Gap 7 MEQ/L Estimat Glomerular Filtration Rate 121 ML/MIN Administered Medications Medications (Trade) Dose Ordered Sig/Zeynep Route PRN Reason Start Time Stop Time Status Last Admin Dose Admin Prednisone (Deltasone) 5 mg DAILY PO 06/29/17 09:00 08/06/17 08:37 Losartan Potassium (Cozaar) 100 mg DAILY PO 06/29/17 09:00 08/06/17 08:37 Al Hydrox/Mg Hydrox/Simethicone (Mag-Al Plus Susp Liq) 15 ml Q6H PRN PO INDIGESTION 06/28/17 20:45 07/05/17 13:52 Ondansetron HCl (Zofran Inj) 4 mg Q6HR PRN IV PUSH nausea 06/29/17 10:15 07/26/17 03:01 Diphenhydramine HCl (Benadryl) 25 mg Q6H PRN PO itching 06/30/17 10:45 08/05/17 08:32 Acetaminophen (Tylenol) 650 mg Q4H PRN PO fever>100.4, PREMED, orpain1-2 07/01/17 10:45 08/06/17 13:51 Melatonin (Melatonin) 5 mg HS PRN PO insomnia 07/02/17 21:00 07/28/17 20:14 Carboxymethylcellulose Sodium (Refresh Tears 0.5% Opth Soln) 1 drop Q6H PRN EACH EYE dry eyes 07/04/17 11:30 07/04/17 19:44 Prochlorperazine Edisylate (Compazine Inj) 10 mg Q8H PRN IV PUSH nausea 07/05/17 10:15 07/18/17 22:34 Albuterol/ Ipratropium (Duoneb Neb) 1 ampule Q6HR NEB PRN NEB SHORTNESS OF BREATH 07/06/17 18:00 07/07/17 20:44 Guaifenesin/ Codeine Phosphate (Robitussin Ac 200-20 Mg/10 ml Liq) 10 ml Q4H PRN PO cough 07/07/17 13:30 07/11/17 21:05 Amlodipine Besylate (Norvasc) 5 mg DAILY PO 07/08/17 19:00 08/06/17 08:37 Citalopram Hydrobromide (CeleXA) 20 mg DAILY PO 07/12/17 09:00 08/06/17 08:37 Pantoprazole Sodium (Protonix) 40 mg DAILY PO 07/14/17 09:00 08/06/17 08:37 Magnesium Oxide (Mag-Ox) 400 mg BID PO 07/16/17 09:00 08/06/17 19:47 Enalaprilat (Vasotec Inj) 1.25 mg Q8H PRN IV PUSH SBP>160, DBP>90 07/18/17 17:15 07/28/17 13:34 Filgrastim 480 mcg/Dextrose 51.6 ml @ 100 mls/hr DAILY@14 IV 07/23/17 14:00 08/06/17 13:15 Alprazolam (Xanax) 0.5 mg Q8HR PRN PO anxiety 07/23/17 11:00 08/06/17 22:12 Sodium Chloride (NS Flush) See Protocol DAILY IV FLUSH 07/24/17 09:00 08/06/17 08:42 Heparin Sodium (Porcine) (Heparin Central Flush) See Protocol DAILY IV FLUSH 07/24/17 09:00 08/06/17 08:38 Heparin Sodium (Porcine) (Heparin Central Flush) See Protocol UNSCH PRN IV FLUSH SEE PROTOCOL TABLE 07/23/17 19:00 08/04/17 22:25 Sodium Chloride (NS Flush) UNSCH PRN IV FLUSH SEE PROTOCOL TABLE 07/23/17 19:00 07/28/17 14:56 Lorazepam (Ativan Inj) 0.5 mg Q4HR PRN IV PUSH anxiety 07/25/17 10:45 08/06/17 00:09 Nystatin (Mycostatin Liq) 5 ml QID SWISH-SWAL 07/25/17 13:00 08/06/17 17:22 Tramadol HCl (Ultram) 50 mg Q12H PRN PO pain 3-10 07/26/17 16:45 08/07/17 05:09 Carvedilol (Coreg) 3.125 mg Q12HR PO 07/28/17 21:00 08/06/17 19:47 Diphenhydramine HCl (Benadryl) 25 mg Q4H PRN PO BLOOD PRODUCT 07/30/17 12:45 08/06/17 13:51 Acyclovir (Zovirax) 400 mg Q8H PO 08/01/17 06:00 08/07/17 04:58 Potassium Chloride (KCl) 20 meq Q12HR PO 08/03/17 09:30 Future hold 08/04/17 22:22 Objective Remarks GENERAL: Pleasant female, resting in nad. SKIN: Warm and dry. +alopecia. bandage, right chest wall, c/d/i. HEAD: Normocephalic. EYES: No injection or drainage. NECK: Supple, trachea midline. CARDIOVASCULAR: Regular rate and rhythm RESPIRATORY: Breath sounds equal bilaterally. No accessory muscle use. GASTROINTESTINAL: Abdomen soft, non-tender, nondistended. EXTREMITIES: No cyanosis MUSCULOSKELETAL: Adequate muscle tone. NEUROLOGICAL: awake and alert. normal speech. moving all extremities. 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 counts continuing to recover. no transfusion today. 08/06/17: D40. 1 unit pRBC. remains afebrile. counts starting to recover. 08/05/17: D39. 1 unit platelets. monitor for fever. hopeful for marrow recovery soon. 08/04/17: D38. No transfusion today. Stop meropenem as she has completed course. See how she does off antibiotics with no prophylaxis prior to anticipated discharge on Wednesday. Discussed with Dr. Odell. 08/03/17: D37. give 1 unit platelets. monitor electrolytes. plan for discharge next week. 08/02/17: D36. give 1 unit pRBC today. stop IVF. continue Neupogen 08/01/17: D35. Monitor CBC. No transfusion today. Continue Neupogen. 07/31/17: D34. No transfusion today. Continue Neupogen. Monitor CBC. Await bone marrow recovery. 07/30/17 D33 . Plat tx today. ANC 0 . But no more fever. Continue neupogen. Extensive d/w pt. AWait BM recovery. 07/29/17: D32. Vanco on hold. Continue Neupogen. Blood pressure better controlled with increased Coreg. No transfusion today. Monitor CBC, BMP and magnesium. Monitor for fevers. 07/28/17: D31. + drug eruption on back. I've asked the nurse to hold vanco and notify ID of drug eruption. will give PO benadryl. increase coreg for elevated blood pressures 07/27/17: D30. 2 units pRBC. monitor blood counts. continue neupogen. 07/26/17: D29. Transfuse 1 unit platelets for level of 4K. Have IR evaluate picc. Continue neupogen until counts recovered. Monitor CBC 07/25/17: D28 07/24/17: D27 07/23/17: D26: monitor CBC await counts recovery. consult invasive to remove port. consult vascular for PICC line. 07/22/17: D25. hgb 5, platelets 6, give 2 units pRBC and 1 unit platelets. bone marrow biopsy shows empty bone marrow--no blasts. 07/21/17 D 24 . BM bx is still pending. I have called [facility]. There is a delay in getting the specimen. They willl run today and will call me. BM morphology is pending. Call place to pathologist Dr Melendez. NO TX today. ANC is 0. D/W BMT team at [facility]. willl follow. 07/20/17: D.23. await path from bone marrow biopsy. continue fluids, electrolyte replacement. 07/19/17: D22. bone marrow biopsy today. transfuse 1 unit platelets. start NS+ 40K @84cc/hr continuous infusion. check magnesium. 07/18/17 D21: Blood cultures pending from fever spike yesterday. Transfuse 2 units packed red blood cells for hemoglobin of 6.6. Plan to transfuse a total of 80 mEq potassium for level 3.4 today. Repeat bone marrow biopsy in a.m. 07/17/17: D20:Await CBC today. May have to have vascular place peripheral IV if unable to get blood return from [id number]. Replace Potassium today. Await CT neck. Pt agrees to imaging. 07/16/17: D19. give [address] neck for enlarging subinguinal LN ? continue antibiotics. increase Magnesium to BID. continue IV Potassium. 07/15/17: D18. no transfusion. obtain blood cultures for fever spike last night. give potassium as ordered. monitor closely 07/14/17: D17. no transfusion. give IV potassium. notify cardiology of 6 beat run of V-tach overnight 07/13/17: D16. give 1unit pRBC, 1 unit platelets. facial swelling improved. start diflucan for thrush. 07/12/17: D15: no transfusion. monitor right-sided facial swelling. refusing MRI. continue antibiotics and lemon lozenges. 07/11/17: D14 No transfusion. Patient with right-sided facial swelling 07/10/17: D13 Hgb 7.9. Transfuse 1 unit irradiated PRBC's. K3.1. Transfuse total of 80 meq's to keep K greater than 4.0 per cardiology recs. Give 400mg magnesium oxide 4 mag level of 1.9 07/09/17: D12. hgb 8, platelet count of 7, will transfuse blood and platelets. 07/08/17: D11. continue antibiotics. monitor for fever 07/07/27: D10. give 1 unit pRBC and 1 unit platelets. continue antibiotics. 07/06/17: D9. no transfusion, spiked fever. start antibiotics, obtain cultures, u /a and chest x-ray. 07/05/17: D8. Transfuse 1 unit irradiated platelets today. Start Rydapt 50mg po BID x 14 days. 07/04/17: D7. no transfusion. monitor for fever 07/03/17: D6. 2 units pRBC. last day of chemotherapy 07/02/17: D5. 1 unit platelets. continue chemotherapy. 07/01/17: D4. 1 unit platelets. continue chemotherapy. 06/30/17: D3. Tolerating chemo. No transfusion today. 06/29/17: D2, give 2 units pRBC this AM. start chemotherapy this afternoon. 06/28/17: admission, D1 (2) Neutropenic fever ICD Codes: D70.9 - Neutropenia, unspecified; R50.81 - Fever presenting with conditions classified elsewhere Status: Resolved Plan: --last fever on 07/27 --BC 07/25: no growth --BC, 07/06 gram negative rods, Klebsiella Pneumoniae (3) Ventricular tachycardia (paroxysmal) ICD Codes: I47.2 - Ventricular tachycardia Plan: --seen by Dr. Barker, advises: keep her potassium levels above 4. Try to keep her magnesium levels near 2 or above. Assessment 57y/o female admitted for salvage chemotherapy with FLAG-AKASH for refractory acute myeloid leukemia. 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 awaiting bone marrow recovery. h/o Rheumatoid arthritis. Anxiety disorder. COPD. Depression. Hypercholesterolemia. Hypertension. Irregular heartbeat Attending Statement The exam, history, and the medical decision-making described in the above note were completed with the assistance of the mid-level provider. I reviewed and agree with the findings presented. I attest that I had a [id number] encounter with the patient on the same day, and personally performed and documented my assessment and findings in the medical record. Feeling better. WBC trended up slightly. Continue transfusion support prn. Continue supportive care. Julianna Mcdaniel Aug 07, 2017 08:41 Kofi Cheek MD Aug 07, 2017 11:36
[2017-08-07] MEDS: POTASSIUM CHLORIDE 20 MEQ CONTROLLED RELEASE TAB PO SCH ×2 (09:22→21:54)
[2017-08-07] MEDS: MAGNESIUM OXIDE 400 MG TAB PO SCH ×2 (09:22→21:54)
[2017-08-07] MEDS: LOSARTAN 50 MG TAB PO SCH (09:22)
[2017-08-07] MEDS: SODIUM CHLORIDE 0.9% FLUSH 10 ML FLUSH IV FLUSH SCH (09:22)
[2017-08-07] MEDS: NYSTATIN SUSP 500,000 U/5 ML CUP SWISH-SWAL SCH ×4 (09:22→21:53)
[2017-08-07] MEDS: PANTOPRAZOLE SOD 40 MG DELAYED RELEASE TAB PO SCH (09:22)
[2017-08-07] MEDS: CITALOPRAM HYDROBROMIDE 20 MG TAB PO SCH (09:23)
[2017-08-07] MEDS: CARVEDILOL 3.125 MG TAB PO SCH ×2 (09:23→21:54)
[2017-08-07] MEDS: amLODIPine BESYLATE 5 MG TAB PO SCH (09:23)
[2017-08-07] MEDS: predniSONE 5 MG TAB PO SCH (09:23)
[2017-08-07] MEDS: FILGRASTIM INJ 480 MCG in DEXTROSE 5% IN WATER INJ 50 ML IV SCH ×2 (13:50)
[2017-08-07] MEDS: MELATONIN 5 MG TAB PO PRN (21:54)
[2017-08-07] MEDS: ALPRAZolam 0.5 MG TAB PO PRN (21:54)
[2017-08-08] VITALS (34 sets, daily range): BP systolic 102–146; BP diastolic 68–97; PULSE 56–91; RESP 16–18; TEMP 88.4–98.8; O2SAT 95–97
[2017-08-08] MEDS: LORazepam 2 MG/ML VIAL IV PUSH PRN (04:51)
[2017-08-08] MEDS: ACYCLOVIR 200 MG CAP PO SCH ×3 (05:06→21:19)
[2017-08-08 05:28] LABS: AUTOMATED NEUTROPHIL # 0.3 TH/MM3 (1.8-7.7); BASOPHIL % 0.4 % (0.0-2.0); EOSINOPHIL % 0.2 % (0.0-4.0); HEMATOCRIT 25.7 % (35.0-46.0); HEMOGLOBIN 9.3 GM/DL (11.6-15.3); LYMPH % 7.3 % (9.0-44.0); MEAN CORPUSCULAR HEMOGLOBIN 29.7 PG (27.0-34.0); MEAN PLATELET VOLUME 8.7 FL (7.0-11.0); MONO % 45.5 % (0.0-8.0); MONOCYTE # 0.3 TH/MM3 (0-0.9); NEUT % 46.6 % (16.0-70.0); RED BLOOD COUNT 3.14 MIL/MM3 (4.00-5.30); RED CELL DISTRIBUTION WIDTH 13.6 % (11.6-17.2); WHITE BLOOD COUNT 0.6 TH/MM3 (4.0-11.0)
[2017-08-08 05:31] LABS: MEAN CORPUSCULAR HGB CONC 36.3 % (32.0-36.0)
[2017-08-08 05:34] LABS: PLATELET COUNT 10 TH/MM3 (150-450)
[2017-08-08 05:51] LABS: BICARBONATE 26.9 MEQ/L (21.0-32.0); CALCIUM 8.9 MG/DL (8.5-10.1); CREATININE 0.49 MG/DL (0.50-1.00)
[2017-08-08] MEDS: PANTOPRAZOLE SOD 40 MG DELAYED RELEASE TAB PO SCH (08:17)
[2017-08-08] MEDS: LOSARTAN 50 MG TAB PO SCH (08:17)
[2017-08-08] MEDS: NYSTATIN SUSP 500,000 U/5 ML CUP SWISH-SWAL SCH ×4 (08:17→21:20)
[2017-08-08] MEDS: amLODIPine BESYLATE 5 MG TAB PO SCH (08:18)
[2017-08-08] MEDS: CARVEDILOL 3.125 MG TAB PO SCH ×2 (08:18→21:20)
[2017-08-08] MEDS: diphenhydrAMINE HCL 25 MG CAP PO PRN (08:18)
[2017-08-08] MEDS: POTASSIUM CHLORIDE 20 MEQ CONTROLLED RELEASE TAB PO SCH ×2 (08:18→21:19)
[2017-08-08] MEDS: predniSONE 5 MG TAB PO SCH (08:18)
[2017-08-08] MEDS: ACETAMINOPHEN 325 MG TAB PO PRN (08:18)
[2017-08-08] MEDS: MAGNESIUM OXIDE 400 MG TAB PO SCH ×2 (08:18→21:19)
[2017-08-08] MEDS: CITALOPRAM HYDROBROMIDE 20 MG TAB PO SCH (08:18)
[2017-08-08] MEDS: SODIUM CHLORIDE 0.9% FLUSH 10 ML FLUSH IV FLUSH SCH (08:19)
--- NOTE | 2017-08-08 08:34 | PD.ONC.PN ---
Subjective Subjective Remarks Afebrile overnight. Patient resting in bed in nad. No complaints. Objective Data Date Time Temp Pulse Resp B/P (MAP) Pulse Ox O2 Delivery O2 Flow Rate FiO2 08/08/17 08:14 98.5 72 18 108/81 (90) 96 08/08/17 08:07 66 08/08/17 07:00 73 08/08/17 05:32 56 08/08/17 05:00 68 08/08/17 04:30 98.3 60 16 146/97 (113) 97 08/08/17 04:12 60 08/08/17 04:00 60 08/08/17 02:00 56 08/08/17 01:00 58 08/08/17 00:12 72 08/08/17 00:00 82 08/07/17 23:00 68 08/07/17 22:00 96 08/07/17 21:00 74 08/07/17 20:45 98.8 71 16 137/97 (110) 97 08/07/17 20:03 84 08/07/17 20:00 76 08/07/17 18:11 75 08/07/17 17:00 75 08/07/17 16:59 65 08/07/17 16:23 98.5 82 18 116/77 (90) 99 08/07/17 14:00 82 08/07/17 13:00 70 08/07/17 12:00 68 08/07/17 11:00 74 08/07/17 10:00 78 08/07/17 09:00 72 08/08/17 08/08/17 08/08/17 07:00 15:00 23:00 Intake Total 240 ml Balance 240 ml Result Diagram: 08/08/17 0440 08/08/17 0440 Laboratory Results Laboratory Tests Test 08/08/17 04:40 White Blood Count 0.6 TH/MM3 Red Blood Count 3.14 MIL/MM3 Hemoglobin 9.3 GM/DL Hematocrit 25.7 % Mean Corpuscular Volume 82.0 FL Mean Corpuscular Hemoglobin 29.7 PG Mean Corpuscular Hemoglobin Concent 36.3 % Red Cell Distribution Width 13.6 % Platelet Count 10 TH/MM3 Mean Platelet Volume 8.7 FL Neutrophils (%) (Auto) 46.6 % Lymphocytes (%) (Auto) 7.3 % Monocytes (%) (Auto) 45.5 % Eosinophils (%) (Auto) 0.2 % Basophils (%) (Auto) 0.4 % Neutrophils # (Auto) 0.3 TH/MM3 Lymphocytes # (Auto) 0.0 TH/MM3 Monocytes # (Auto) 0.3 TH/MM3 Eosinophils # (Auto) 0.0 TH/MM3 Basophils # (Auto) 0.0 TH/MM3 CBC Comment AUTO DIFF Blood Urea Nitrogen 11 MG/DL Creatinine 0.49 MG/DL Random Glucose 89 MG/DL Calcium Level 8.9 MG/DL Sodium Level 139 MEQ/L Potassium Level 4.2 MEQ/L Chloride Level 106 MEQ/L Carbon Dioxide Level 26.9 MEQ/L Anion Gap 6 MEQ/L Estimat Glomerular Filtration Rate 129 ML/MIN Administered Medications Medications (Trade) Dose Ordered Sig/Zeynep Route PRN Reason Start Time Stop Time Status Last Admin Dose Admin Prednisone (Deltasone) 5 mg DAILY PO 06/29/17 09:00 08/08/17 08:18 Losartan Potassium (Cozaar) 100 mg DAILY PO 06/29/17 09:00 08/08/17 08:17 Al Hydrox/Mg Hydrox/Simethicone (Mag-Al Plus Susp Liq) 15 ml Q6H PRN PO INDIGESTION 06/28/17 20:45 07/05/17 13:52 Ondansetron HCl (Zofran Inj) 4 mg Q6HR PRN IV PUSH nausea 06/29/17 10:15 07/26/17 03:01 Diphenhydramine HCl (Benadryl) 25 mg Q6H PRN PO itching 06/30/17 10:45 08/05/17 08:32 Acetaminophen (Tylenol) 650 mg Q4H PRN PO fever>100.4, PREMED, orpain1-2 07/01/17 10:45 08/08/17 08:18 Melatonin (Melatonin) 5 mg HS PRN PO insomnia 07/02/17 21:00 08/07/17 21:54 Carboxymethylcellulose Sodium (Refresh Tears 0.5% Opth Soln) 1 drop Q6H PRN EACH EYE dry eyes 07/04/17 11:30 07/04/17 19:44 Prochlorperazine Edisylate (Compazine Inj) 10 mg Q8H PRN IV PUSH nausea 07/05/17 10:15 07/18/17 22:34 Albuterol/ Ipratropium (Duoneb Neb) 1 ampule Q6HR NEB PRN NEB SHORTNESS OF BREATH 07/06/17 18:00 07/07/17 20:44 Guaifenesin/ Codeine Phosphate (Robitussin Ac 200-20 Mg/10 ml Liq) 10 ml Q4H PRN PO cough 07/07/17 13:30 07/11/17 21:05 Amlodipine Besylate (Norvasc) 5 mg DAILY PO 07/08/17 19:00 08/08/17 08:18 Citalopram Hydrobromide (CeleXA) 20 mg DAILY PO 07/12/17 09:00 08/08/17 08:18 Pantoprazole Sodium (Protonix) 40 mg DAILY PO 07/14/17 09:00 08/08/17 08:17 Magnesium Oxide (Mag-Ox) 400 mg BID PO 07/16/17 09:00 08/08/17 08:18 Enalaprilat (Vasotec Inj) 1.25 mg Q8H PRN IV PUSH SBP>160, DBP>90 07/18/17 17:15 07/28/17 13:34 Filgrastim 480 mcg/Dextrose 51.6 ml @ 100 mls/hr DAILY@14 IV 07/23/17 14:00 08/07/17 13:50 Alprazolam (Xanax) 0.5 mg Q8HR PRN PO anxiety 07/23/17 11:00 08/07/17 21:54 Sodium Chloride (NS Flush) See Protocol DAILY IV FLUSH 07/24/17 09:00 08/08/17 08:19 Heparin Sodium (Porcine) (Heparin Central Flush) See Protocol DAILY IV FLUSH 07/24/17 09:00 08/07/17 09:22 Heparin Sodium (Porcine) (Heparin Central Flush) See Protocol UNSCH PRN IV FLUSH SEE PROTOCOL TABLE 07/23/17 19:00 08/04/17 22:25 Sodium Chloride (NS Flush) UNSCH PRN IV FLUSH SEE PROTOCOL TABLE 07/23/17 19:00 07/28/17 14:56 Nystatin (Mycostatin Liq) 5 ml QID SWISH-SWAL 07/25/17 13:00 08/08/17 08:17 Tramadol HCl (Ultram) 50 mg Q12H PRN PO pain 3-10 07/26/17 16:45 08/07/17 05:09 Carvedilol (Coreg) 3.125 mg Q12HR PO 07/28/17 21:00 08/08/17 08:18 Diphenhydramine HCl (Benadryl) 25 mg Q4H PRN PO BLOOD PRODUCT 07/30/17 12:45 08/08/17 08:18 Acyclovir (Zovirax) 400 mg Q8H PO 08/01/17 06:00 08/08/17 05:06 Potassium Chloride (KCl) 20 meq Q12HR PO 08/03/17 09:30 Future hold 08/08/17 08:18 Objective Remarks GENERAL: Pleasant female, lying in bed in nad. SKIN: Warm and dry. +alopecia. HEAD: Normocephalic. EYES: No injection or drainage. NECK: Supple, trachea midline. CARDIOVASCULAR: Regular rate and rhythm RESPIRATORY: Breath sounds equal bilaterally. No accessory muscle use. GASTROINTESTINAL: Abdomen soft, non-tender, nondistended. EXTREMITIES: No cyanosis NEUROLOGICAL: awake, alert. normal speech. moving extremities. 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 no transfusion today. monitor counts. 08/07/17: D41. counts continuing to recover. no transfusion today. 08/06/17: D40. 1 unit pRBC. remains afebrile. counts starting to recover. 08/05/17: D39. 1 unit platelets. monitor for fever. hopeful for marrow recovery soon. 08/04/17: D38. No transfusion today. Stop meropenem as she has completed course. See how she does off antibiotics with no prophylaxis prior to anticipated discharge on Wednesday. Discussed with Dr. Odell. 08/03/17: D37. give 1 unit platelets. monitor electrolytes. plan for discharge next week. 08/02/17: D36. give 1 unit pRBC today. stop IVF. continue Neupogen 08/01/17: D35. Monitor CBC. No transfusion today. Continue Neupogen. 07/31/17: D34. No transfusion today. Continue Neupogen. Monitor CBC. Await bone marrow recovery. 07/30/17 D33 . Plat tx today. ANC 0 . But no more fever. Continue neupogen. Extensive d/w pt. AWait BM recovery. 07/29/17: D32. Vanco on hold. Continue Neupogen. Blood pressure better controlled with increased Coreg. No transfusion today. Monitor CBC, BMP and magnesium. Monitor for fevers. 07/28/17: D31. + drug eruption on back. I've asked the nurse to hold vanco and notify ID of drug eruption. will give PO benadryl. increase coreg for elevated blood pressures 07/27/17: D30. 2 units pRBC. monitor blood counts. continue neupogen. 07/26/17: D29. Transfuse 1 unit platelets for level of 4K. Have IR evaluate picc. Continue neupogen until counts recovered. Monitor CBC 07/25/17: D28 07/24/17: D27 07/23/17: D26: monitor CBC await counts recovery. consult invasive to remove port. consult vascular for PICC line. 07/22/17: D25. hgb 5, platelets 6, give 2 units pRBC and 1 unit platelets. bone marrow biopsy shows empty bone marrow--no blasts. 07/21/17 D 24 . BM bx is still pending. I have called [facility]. There is a delay in getting the specimen. They willl run today and will call me. BM morphology is pending. Call place to pathologist Dr Melendez. NO TX today. ANC is 0. D/W BMT team at [facility]. willl follow. 07/20/17: D.23. await path from bone marrow biopsy. continue fluids, electrolyte replacement. 07/19/17: D22. bone marrow biopsy today. transfuse 1 unit platelets. start NS+ 40K @84cc/hr continuous infusion. check magnesium. 07/18/17 D21: Blood cultures pending from fever spike yesterday. Transfuse 2 units packed red blood cells for hemoglobin of 6.6. Plan to transfuse a total of 80 mEq potassium for level 3.4 today. Repeat bone marrow biopsy in a.m. 07/17/17: D20:Await CBC today. May have to have vascular place peripheral IV if unable to get blood return from [id number]. Replace Potassium today. Await CT neck. Pt agrees to imaging. 07/16/17: D19. give [address] neck for enlarging subinguinal LN ? continue antibiotics. increase Magnesium to BID. continue IV Potassium. 07/15/17: D18. no transfusion. obtain blood cultures for fever spike last night. give potassium as ordered. monitor closely 07/14/17: D17. no transfusion. give IV potassium. notify cardiology of 6 beat run of V-tach overnight 07/13/17: D16. give 1unit pRBC, 1 unit platelets. facial swelling improved. start diflucan for thrush. 07/12/17: D15: no transfusion. monitor right-sided facial swelling. refusing MRI. continue antibiotics and lemon lozenges. 07/11/17: D14 No transfusion. Patient with right-sided facial swelling 07/10/17: D13 Hgb 7.9. Transfuse 1 unit irradiated PRBC's. K3.1. Transfuse total of 80 meq's to keep K greater than 4.0 per cardiology recs. Give 400mg magnesium oxide 4 mag level of 1.9 07/09/17: D12. hgb 8, platelet count of 7, will transfuse blood and platelets. 07/08/17: D11. continue antibiotics. monitor for fever 07/07/27: D10. give 1 unit pRBC and 1 unit platelets. continue antibiotics. 07/06/17: D9. no transfusion, spiked fever. start antibiotics, obtain cultures, u /a and chest x-ray. 07/05/17: D8. Transfuse 1 unit irradiated platelets today. Start Rydapt 50mg po BID x 14 days. 07/04/17: D7. no transfusion. monitor for fever 07/03/17: D6. 2 units pRBC. last day of chemotherapy 07/02/17: D5. 1 unit platelets. continue chemotherapy. 07/01/17: D4. 1 unit platelets. continue chemotherapy. 06/30/17: D3. Tolerating chemo. No transfusion today. 06/29/17: D2, give 2 units pRBC this AM. start chemotherapy this afternoon. 06/28/17: admission, D1 (2) Neutropenic fever ICD Codes: D70.9 - Neutropenia, unspecified; R50.81 - Fever presenting with conditions classified elsewhere Status: Resolved Plan: --last fever on 07/27 --BC 07/25: no growth --BC, 07/06 gram negative rods, Klebsiella Pneumoniae (3) Ventricular tachycardia (paroxysmal) ICD Codes: I47.2 - Ventricular tachycardia Plan: --seen by Dr. Barker, advises: keep her potassium levels above 4. Try to keep her magnesium levels near 2 or above. Assessment 57y/o female admitted for salvage chemotherapy with FLAG-AKASH for refractory acute myeloid leukemia. 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 awaiting bone marrow recovery. h/o Rheumatoid arthritis. Anxiety disorder. COPD. Depression. Hypercholesterolemia. Hypertension. Irregular heartbeat Plan The exam, history, and the medical decision-making described in the above note were completed with the assistance of the mid-level provider. I reviewed and agree with the findings presented. I attest that I had a [id number] encounter with the patient on the same day, and personally performed and documented my assessment and findings in the medical record. Platelet trended lower, no bleeding. WBC sable. Transfuse platelet per protocol. Continue supportive care. Julianna Mcdaniel Aug 08, 2017 08:34 Kofi Cheek MD Aug 08, 2017 11:08
[2017-08-08 08:51] LABS: BANDS 22 % (0-6); BLASTS 2 % (0-0); LYMPHOCYTES 16 % (9-44); MONOCYTES 26 % (0-8); NEUTROPHIL # MANUAL DIFF 0.3 TH/MM3 (1.8-7.7); POLYS (SEG NEUTROPHILS) 34 % (16-70)
[2017-08-08 09:01] LABS: DOHLE BODIES PRESENT (NONE SEEN); TOXIC GRANULATION 2+ (NORMAL)
[2017-08-08] MEDS: FILGRASTIM INJ 480 MCG in DEXTROSE 5% IN WATER INJ 50 ML IV SCH ×2 (14:31)
[2017-08-08] MEDS: ALPRAZolam 0.5 MG TAB PO PRN (21:20)
[2017-08-09] VITALS (16 sets, daily range): BP systolic 110–143; BP diastolic 74–103; PULSE 68–94; RESP 16–22; TEMP 97.5–98.7; O2SAT 95–98
[2017-08-09] MEDS: MELATONIN 5 MG TAB PO PRN (00:06)
[2017-08-09 04:40] LABS: HEMATOCRIT 23.4 % (35.0-46.0); HEMOGLOBIN 8.5 GM/DL (11.6-15.3); MEAN CELL VOLUME 81.2 FL (80.0-100.0); MEAN CORPUSCULAR HEMOGLOBIN 29.4 PG (27.0-34.0); MEAN PLATELET VOLUME 8.5 FL (7.0-11.0); PLATELET COUNT 42 TH/MM3 (150-450); RED BLOOD COUNT 2.89 MIL/MM3 (4.00-5.30); RED CELL DISTRIBUTION WIDTH 13.8 % (11.6-17.2); WHITE BLOOD COUNT 0.9 TH/MM3 (4.0-11.0)
[2017-08-09 05:00] LABS: MEAN CORPUSCULAR HGB CONC 36.2 % (32.0-36.0)
[2017-08-09 05:24] LABS: BICARBONATE 28.3 MEQ/L (21.0-32.0); CALCIUM 9.2 MG/DL (8.5-10.1); CREATININE 0.46 MG/DL (0.50-1.00)
[2017-08-09] MEDS: ACYCLOVIR 200 MG CAP PO SCH ×2 (06:48→14:00)
[2017-08-09 08:24] LABS: BANDS 13 % (0-6); DOHLE BODIES PRESENT (NONE SEEN); LYMPHOCYTES 18 % (9-44); MONOCYTES 5 % (0-8); NEUTROPHIL # MANUAL DIFF 0.7 TH/MM3 (1.8-7.7); POLYS (SEG NEUTROPHILS) 65 % (16-70); TOXIC GRANULATION 2+ (NORMAL)
[2017-08-09] MEDS: SODIUM CHLORIDE 0.9% FLUSH 10 ML FLUSH IV FLUSH SCH (09:00)
[2017-08-09] MEDS ORDERED: diphenhydrAMINE HCL 25 MG CAP PO PRN (09:00)
[2017-08-09] MEDS ORDERED: SODIUM CHLOR 0.9% 250 ML INJ 250 ML IV ONE (09:00)
[2017-08-09] MEDS ORDERED: ACETAMINOPHEN 325 MG TAB PO PRN (09:00)
[2017-08-09] MEDS: NYSTATIN SUSP 500,000 U/5 ML CUP SWISH-SWAL SCH ×2 (09:20→13:00)
[2017-08-09] MEDS: LOSARTAN 50 MG TAB PO SCH (09:20)
[2017-08-09] MEDS: PANTOPRAZOLE SOD 40 MG DELAYED RELEASE TAB PO SCH (09:20)
[2017-08-09] MEDS: CITALOPRAM HYDROBROMIDE 20 MG TAB PO SCH (09:21)
[2017-08-09] MEDS: predniSONE 5 MG TAB PO SCH (09:21)
[2017-08-09] MEDS: amLODIPine BESYLATE 5 MG TAB PO SCH (09:21)
[2017-08-09] MEDS: POTASSIUM CHLORIDE 20 MEQ CONTROLLED RELEASE TAB PO SCH (09:21)
[2017-08-09] MEDS: CARVEDILOL 3.125 MG TAB PO SCH (09:21)
[2017-08-09] MEDS: MAGNESIUM OXIDE 400 MG TAB PO SCH (09:21)
--- NOTE | 2017-08-09 10:16 | HHI.FF ---
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 Please evaluate and treat pt to work on strengthening exercises at home. Home Health Nursing Order: Medical education Signs/symptoms of disease process Nursing assessment with vital signs Instructions: Pt is status post salvage chemotherapy. I have seen patient Ashley Arroyo on 08/09/17. My clinical findings support the need for the requested home health care services because: Ltd mobility - disease progression Deconditioned w/ increased weakness Infection w/ risk of complications I certify that my clinical findings support that this patient is homebound because: Unsteady gait/balance Unsafe to leave home unassisted Unable to use public transportation Poor cardiac reserve Amina Castellanos Aug 09, 2017 10:16
--- NOTE | 2017-08-09 10:21 | PD.ONC.PN ---
Subjective Subjective Remarks Afebrile Patient happy to be going home today No acute complaints Objective Data Date Time Temp Pulse Resp B/P (MAP) Pulse Ox O2 Delivery O2 Flow Rate FiO2 08/09/17 08:35 98.7 79 18 110/74 (86) 95 08/09/17 07:02 72 08/09/17 06:05 71 08/09/17 05:05 68 08/09/17 04:13 98.2 71 16 121/81 (94) 98 08/09/17 04:06 69 08/09/17 03:03 69 08/09/17 02:06 68 08/09/17 01:01 75 08/09/17 00:00 88 08/08/17 23:59 98.8 83 16 118/84 (95) 95 08/08/17 23:05 89 08/08/17 22:08 89 08/08/17 21:07 91 08/08/17 20:50 98.4 85 16 129/85 (100) 97 08/08/17 20:00 73 08/08/17 19:01 82 08/08/17 18:00 82 08/08/17 17:00 76 08/08/17 16:00 70 08/08/17 15:00 72 08/08/17 14:59 98.6 83 18 115/68 (84) 97 08/08/17 14:00 68 08/08/17 13:00 90 08/08/17 12:22 97.7 75 18 136/86 (103) 97 08/08/17 12:00 90 08/08/17 11:00 77 08/09/17 08/09/17 08/09/17 07:00 15:00 23:00 Intake Total 120 ml Balance 120 ml Result Diagram: 08/09/17 0425 08/09/17 0425 Laboratory Results Laboratory Tests Test 08/09/17 04:25 White Blood Count 0.9 TH/MM3 Red Blood Count 2.89 MIL/MM3 Hemoglobin 8.5 GM/DL Hematocrit 23.4 % Mean Corpuscular Volume 81.2 FL Mean Corpuscular Hemoglobin 29.4 PG Mean Corpuscular Hemoglobin Concent 36.2 % Red Cell Distribution Width 13.8 % Platelet Count 42 TH/MM3 Mean Platelet Volume 8.5 FL CBC Comment AUTO DIFF Differential Total Cells Counted 40 Neutrophils % (Manual) 65 % Band Neutrophils % 13 % Lymphocytes % 18 % Monocytes % 5 % Neutrophils # (Manual) 0.7 TH/MM3 Differential Comment FINAL DIFF MANUAL Toxic Granulation 2+ Dohle Bodies PRESENT Platelet Estimate LOW Platelet Morphology Comment NORMAL Blood Urea Nitrogen 16 MG/DL Creatinine 0.46 MG/DL Random Glucose 102 MG/DL Calcium Level 9.2 MG/DL Sodium Level 139 MEQ/L Potassium Level 4.2 MEQ/L Chloride Level 105 MEQ/L Carbon Dioxide Level 28.3 MEQ/L Anion Gap 6 MEQ/L Estimat Glomerular Filtration Rate 139 ML/MIN Administered Medications Medications (Trade) Dose Ordered Sig/Zeynep Route PRN Reason Start Time Stop Time Status Last Admin Dose Admin Prednisone (Deltasone) 5 mg DAILY PO 06/29/17 09:00 08/09/17 09:21 Losartan Potassium (Cozaar) 100 mg DAILY PO 06/29/17 09:00 08/09/17 09:20 Al Hydrox/Mg Hydrox/Simethicone (Mag-Al Plus Susp Liq) 15 ml Q6H PRN PO INDIGESTION 06/28/17 20:45 07/05/17 13:52 Ondansetron HCl (Zofran Inj) 4 mg Q6HR PRN IV PUSH nausea 06/29/17 10:15 07/26/17 03:01 Diphenhydramine HCl (Benadryl) 25 mg Q6H PRN PO itching 06/30/17 10:45 08/05/17 08:32 Acetaminophen (Tylenol) 650 mg Q4H PRN PO fever>100.4, PREMED, orpain1-2 07/01/17 10:45 08/08/17 08:18 Melatonin (Melatonin) 5 mg HS PRN PO insomnia 07/02/17 21:00 08/09/17 00:06 Carboxymethylcellulose Sodium (Refresh Tears 0.5% Opth Soln) 1 drop Q6H PRN EACH EYE dry eyes 07/04/17 11:30 07/04/17 19:44 Prochlorperazine Edisylate (Compazine Inj) 10 mg Q8H PRN IV PUSH nausea 07/05/17 10:15 07/18/17 22:34 Albuterol/ Ipratropium (Duoneb Neb) 1 ampule Q6HR NEB PRN NEB SHORTNESS OF BREATH 07/06/17 18:00 07/07/17 20:44 Guaifenesin/ Codeine Phosphate (Robitussin Ac 200-20 Mg/10 ml Liq) 10 ml Q4H PRN PO cough 07/07/17 13:30 07/11/17 21:05 Amlodipine Besylate (Norvasc) 5 mg DAILY PO 07/08/17 19:00 08/09/17 09:21 Citalopram Hydrobromide (CeleXA) 20 mg DAILY PO 07/12/17 09:00 08/09/17 09:21 Pantoprazole Sodium (Protonix) 40 mg DAILY PO 07/14/17 09:00 08/09/17 09:20 Magnesium Oxide (Mag-Ox) 400 mg BID PO 07/16/17 09:00 08/09/17 09:21 Enalaprilat (Vasotec Inj) 1.25 mg Q8H PRN IV PUSH SBP>160, DBP>90 07/18/17 17:15 07/28/17 13:34 Filgrastim 480 mcg/Dextrose 51.6 ml @ 100 mls/hr DAILY@14 IV 07/23/17 14:00 08/08/17 14:31 Alprazolam (Xanax) 0.5 mg Q8HR PRN PO anxiety 07/23/17 11:00 08/08/17 21:20 Sodium Chloride (NS Flush) See Protocol DAILY IV FLUSH 07/24/17 09:00 08/08/17 08:19 Sodium Chloride (NS Flush) See Protocol UNSCH PRN IV FLUSH SEE PROTOCOL TABLE 07/23/17 19:00 08/09/17 04:27 Heparin Sodium (Porcine) (Heparin Central Flush) See Protocol DAILY IV FLUSH 07/24/17 09:00 08/08/17 15:00 Heparin Sodium (Porcine) (Heparin Central Flush) See Protocol UNSCH PRN IV FLUSH SEE PROTOCOL TABLE 07/23/17 19:00 08/09/17 04:27 Sodium Chloride (NS Flush) UNSCH PRN IV FLUSH SEE PROTOCOL TABLE 07/23/17 19:00 08/09/17 04:26 Nystatin (Mycostatin Liq) 5 ml QID SWISH-SWAL 07/25/17 13:00 08/09/17 09:20 Tramadol HCl (Ultram) 50 mg Q12H PRN PO pain 3-10 07/26/17 16:45 08/07/17 05:09 Carvedilol (Coreg) 3.125 mg Q12HR PO 07/28/17 21:00 08/09/17 09:21 Diphenhydramine HCl (Benadryl) 25 mg Q4H PRN PO BLOOD PRODUCT 07/30/17 12:45 08/08/17 08:18 Acyclovir (Zovirax) 400 mg Q8H PO 08/01/17 06:00 08/09/17 06:48 Potassium Chloride (KCl) 20 meq Q12HR PO 08/03/17 09:30 Future hold 08/09/17 09:21 Objective Remarks GENERAL: Older female resting in bed in no obvious distress SKIN: Warm and dry. No oozing from lines. PICC line to right upper extremity with minimal bruising at insertion website designer: Normocephalic. EYES: No injection or drainage. NECK: Supple, trachea midline. CARDIOVASCULAR: Regular rate and rhythm RESPIRATORY: Breath sounds equal bilaterally. No accessory muscle use. GASTROINTESTINAL: Abdomen soft, non-tender, nondistended. EXTREMITIES: No cyanosis. no edema. NEUROLOGICAL: Moving all extremities. Normal speech. Awake and alert. 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 Transfuse 1 unit PRBC then discharge. Pt will followup in clinic daily this week for Neupogen and CBC. Followup with Dr Fonseca on Wednesday. 08/08/17: D42. no transfusion today. monitor counts. 08/07/17: D41. counts continuing to recover. no transfusion today. 08/06/17: D40. 1 unit pRBC. remains afebrile. counts starting to recover. 08/05/17: D39. 1 unit platelets. monitor for fever. hopeful for marrow recovery soon. 08/04/17: D38. No transfusion today. Stop meropenem as she has completed course. See how she does off antibiotics with no prophylaxis prior to anticipated discharge on Wednesday. Discussed with Dr. Odell. 08/03/17: D37. give 1 unit platelets. monitor electrolytes. plan for discharge next week. 08/02/17: D36. give 1 unit pRBC today. stop IVF. continue Neupogen 08/01/17: D35. Monitor CBC. No transfusion today. Continue Neupogen. 07/31/17: D34. No transfusion today. Continue Neupogen. Monitor CBC. Await bone marrow recovery. 07/30/17 D33 . Plat tx today. ANC 0 . But no more fever. Continue neupogen. Extensive d/w pt. AWait BM recovery. 07/29/17: D32. Vanco on hold. Continue Neupogen. Blood pressure better controlled with increased Coreg. No transfusion today. Monitor CBC, BMP and magnesium. Monitor for fevers. 07/28/17: D31. + drug eruption on back. I've asked the nurse to hold vanco and notify ID of drug eruption. will give PO benadryl. increase coreg for elevated blood pressures 07/27/17: D30. 2 units pRBC. monitor blood counts. continue neupogen. 07/26/17: D29. Transfuse 1 unit platelets for level of 4K. Have IR evaluate picc. Continue neupogen until counts recovered. Monitor CBC 07/25/17: D28 07/24/17: D27 07/23/17: D26: monitor CBC await counts recovery. consult invasive to remove port. consult vascular for PICC line. 07/22/17: D25. hgb 5, platelets 6, give 2 units pRBC and 1 unit platelets. bone marrow biopsy shows empty bone marrow--no blasts. 07/21/17 D 24 . BM bx is still pending. I have called [facility]. There is a delay in getting the specimen. They willl run today and will call me. BM morphology is pending. Call place to pathologist Dr Melendez. NO TX today. ANC is 0. D/W BMT team at [facility]. willl follow. 07/20/17: D.23. await path from bone marrow biopsy. continue fluids, electrolyte replacement. 07/19/17: D22. bone marrow biopsy today. transfuse 1 unit platelets. start NS+ 40K @84cc/hr continuous infusion. check magnesium. 07/18/17 D21: Blood cultures pending from fever spike yesterday. Transfuse 2 units packed red blood cells for hemoglobin of 6.6. Plan to transfuse a total of 80 mEq potassium for level 3.4 today. Repeat bone marrow biopsy in a.m. 07/17/17: D20:Await CBC today. May have to have vascular place peripheral IV if unable to get blood return from [id number]. Replace Potassium today. Await CT neck. Pt agrees to imaging. 07/16/17: D19. give [address] neck for enlarging subinguinal LN ? continue antibiotics. increase Magnesium to BID. continue IV Potassium. 07/15/17: D18. no transfusion. obtain blood cultures for fever spike last night. give potassium as ordered. monitor closely 07/14/17: D17. no transfusion. give IV potassium. notify cardiology of 6 beat run of V-tach overnight 07/13/17: D16. give 1unit pRBC, 1 unit platelets. facial swelling improved. start diflucan for thrush. 07/12/17: D15: no transfusion. monitor right-sided facial swelling. refusing MRI. continue antibiotics and lemon lozenges. 07/11/17: D14 No transfusion. Patient with right-sided facial swelling 07/10/17: D13 Hgb 7.9. Transfuse 1 unit irradiated PRBC's. K3.1. Transfuse total of 80 meq's to keep K greater than 4.0 per cardiology recs. Give 400mg magnesium oxide 4 mag level of 1.9 07/09/17: D12. hgb 8, platelet count of 7, will transfuse blood and platelets. 07/08/17: D11. continue antibiotics. monitor for fever 07/07/27: D10. give 1 unit pRBC and 1 unit platelets. continue antibiotics. 07/06/17: D9. no transfusion, spiked fever. start antibiotics, obtain cultures, u /a and chest x-ray. 07/05/17: D8. Transfuse 1 unit irradiated platelets today. Start Rydapt 50mg po BID x 14 days. 07/04/17: D7. no transfusion. monitor for fever 07/03/17: D6. 2 units pRBC. last day of chemotherapy 2/23/18: D5. 1 unit platelets. continue chemotherapy. 07/01/17: D4. 1 unit platelets. continue chemotherapy. 06/30/17: D3. Tolerating chemo. No transfusion today. 06/29/17: D2, give 2 units pRBC this AM. start chemotherapy this afternoon. 06/28/17: admission, D1 (2) Neutropenic fever ICD Codes: D70.9 - Neutropenia, unspecified; R50.81 - Fever presenting with conditions classified elsewhere Status: Resolved Plan: --last fever on 07/27 --BC 07/25: no growth --BC, 07/06 gram negative rods, Klebsiella Pneumoniae (3) Ventricular tachycardia (paroxysmal) ICD Codes: I47.2 - Ventricular tachycardia Status: Resolved Plan: --seen by Dr. Barker, advises: keep her potassium levels above 4. Try to keep her magnesium levels near 2 or above. Assessment 57y/o female admitted for salvage chemotherapy with FLAG-AKASH for refractory acute myeloid leukemia. 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 awaiting bone marrow recovery. h/o Rheumatoid arthritis. Anxiety disorder. COPD. Depression. Hypercholesterolemia. Hypertension. Irregular heartbeat Plan The exam, history, and the medical decision-making described in the above note were completed with the assistance of the mid-level provider. I reviewed and agree with the findings presented. I attest that I had a [id number] encounter with the patient on the same day, and personally performed and documented my assessment and findings in the medical record. Platelet trended lower, no bleeding. WBC sable. Transfuse platelet per protocol. Continue supportive care. Attending Statement The exam, history, and the medical decision-making described in the above note were completed with the assistance of the mid-level provider. I reviewed and agree with the findings presented. I attest that I had a [id number] encounter with the patient on the same day, and personally performed and documented my assessment and findings in the medical record. NO c/o excited to go home. PRBC today. D/c ho me today. Daily cbc and neupogen at office. FU appt on wednesday. Amina Castellanos Aug 09, 2017 10:21 April Fonseca MD Aug 09, 2017 22:04
[2017-08-09] MEDS ORDERED: ACYC200C66 PO (10:26)
--- NOTE | 2017-08-09 10:27 | HHI.DCPOC ---
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 Avoid second hand smoke Call the 24-hour hour crisis hotline for domestic abuse at Amina Castellanos Aug 09, 2017 10:27 April Fonseca MD Aug 09, 2017 23:56
--- NOTE | 2017-08-09 10:36 | HHI.DS ---
EmanuelAmina 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 She was originally treated with CLAG chemotherapy and went into remission. She then had high dose tonio-C consolidation chemo in November 2016. Patient was referred to [facility] however just prior to her transplant she was found to have relapsed disease when they checked a bone marrow biopsy. She was then treated with Dacogen chemotherapy for 2 cycles with progressive disease. Subsequently she was treated with CLAGM chemotherapy and a bone marrow biopsy on day 21 showed minimal residual disease with blasts at 6%. The patient was given the option of more chemo versus hospice and wished to have another salvage chemotherapy. After being home for 1 week she was readmitted to the hospital to start FLAG-AKASH salvage chemo. CBC/BMP: 08/09/17 0425 08/09/17 0425 Significant Findings Laboratory Tests Test 08/07/17 04:52 08/08/17 04:40 08/09/17 04:25 White Blood Count 0.6 TH/MM3 (4.0-11.0) 0.6 TH/MM3 (4.0-11.0) 0.9 TH/MM3 (4.0-11.0) Red Blood Count 3.23 MIL/MM3 (4.00-5.30) 3.14 MIL/MM3 (4.00-5.30) 2.89 MIL/MM3 (4.00-5.30) Hemoglobin 9.5 GM/DL (11.6-15.3) 9.3 GM/DL (11.6-15.3) 8.5 GM/DL (11.6-15.3) Hematocrit 26.4 % (35.0-46.0) 25.7 % (35.0-46.0) 23.4 % (35.0-46.0) Platelet Count 15 TH/MM3 (150-450) 10 TH/MM3 (150-450) 42 TH/MM3 (150-450) Monocytes (%) (Auto) 39.8 % (0.0-8.0) 45.5 % (0.0-8.0) Neutrophils # (Auto) 0.3 TH/MM3 (1.8-7.7) 0.3 TH/MM3 (1.8-7.7) Lymphocytes # (Auto) 0.1 TH/MM3 (1.0-4.8) 0.0 TH/MM3 (1.0-4.8) Band Neutrophils % 19 % (0-6) 22 % (0-6) 13 % (0-6) Monocytes % 16 % (0-8) 26 % (0-8) Neutrophils # (Manual) 0.4 TH/MM3 (1.8-7.7) 0.3 TH/MM3 (1.8-7.7) 0.7 TH/MM3 (1.8-7.7) Nucleated Red Blood Cells 2 /100 WBC (0-0) Toxic Granulation 1+ (NORMAL) 2+ (NORMAL) 2+ (NORMAL) Dohle Bodies PRESENT (NONE SEEN) PRESENT (NONE SEEN) PRESENT (NONE SEEN) Platelet Estimate RARE (NORMAL) RARE (NORMAL) LOW (NORMAL) Mean Corpuscular Hemoglobin Concent 36.3 % (32.0-36.0) 36.2 % (32.0-36.0) Lymphocytes (%) (Auto) 7.3 % (9.0-44.0) Blastocytes 2 % (0-0) Creatinine 0.49 MG/DL (0.50-1.00) 0.46 MG/DL (0.50-1.00) PE at Discharge See progress note dated 08/09/17 Hospital Course The patient was treated with salvage chemotherapy with FLAG-AKASH. A bone marrow biopsy done on day 22 showed an aplastic bone marrow. The patient has been recovering with support with blood and platelet transfusions. She has had a full course of IV antibiotics with his infectious disease input due to neutropenic sepsis. She also had a cardiology consult this admission for unsustained V. tach. We have been monitoring her electrolyte levels. She is now ready for discharge to go to [facility] to be evaluated for a possible bone marrow transplant. Pt Condition on Discharge: Fair Discharge Disposition: Disch w/ Home Health Serv Discharge Instructions DIET: Follow Instructions for: As Tolerated, No Restrictions Activities you can perform: Regular-No Restrictions April Fonseca MD 08/09/17 2355: Discharge Summary CBC/BMP: 08/09/17 0425 08/09/17 042 Amina Castellanos Aug 09, 2017 10:36 pAril Fonseca MD Aug 09, 2017 23:55
[2017-08-09] MEDS ORDERED: POTA20TA5 PO (10:39)
[2017-08-09] MEDS ORDERED: CELE20TA PO (10:39)
[2017-08-09] MEDS ORDERED: MAGN400T2 PO (10:39)
[2017-08-09] MEDS: ACETAMINOPHEN 325 MG TAB PO PRN (12:42)
[2017-08-09] MEDS: diphenhydrAMINE HCL 25 MG CAP PO PRN (12:42)
[2017-08-09] MEDS: FILGRASTIM INJ 480 MCG in DEXTROSE 5% IN WATER INJ 50 ML IV SCH ×2 (14:00)
== END 2017-08-09 16:56 | disposition home health service (06) | DRG 837 ==
LOC: HCIN 12:59
PROVIDERS: ADMIT Internal Medicine Hematology & Oncology; ATTEND Internal Medicine Hematology & Oncology
PROC: 30243R1 Transfusion of Nonautologous Platelets into Central Vein, Percutaneous Approach (ICD-10-PCS; principal; 2017-06-28)
PROC: 30243N1 Transfusion of Nonautologous Red Blood Cells into Central Vein, Percutaneous Approach (ICD-10-PCS; 2017-06-29)
PROC: 07DR3ZX Extraction of Iliac Bone Marrow, Percutaneous Approach, Diagnostic (ICD-10-PCS; 2017-07-19)
PROC: 0JPT0VZ Removal of Infusion Pump from Trunk Subcutaneous Tissue and Fascia, Open Approach (ICD-10-PCS; 2017-07-23)
DX: Z51.11 Encounter for antineoplastic chemotherapy (principal); A41.59 Other Gram-negative sepsis; C92.02 Acute myeloblastic leukemia, in relapse; I47.2 Ventricular tachycardia; A04.72 Enterocolitis due to Clostridium difficile, not specified as recurrent; D61.818 Other pancytopenia; B37.0 Candidal stomatitis; I10 Essential (primary) hypertension; F32.9 Major depressive disorder, single episode, unspecified; F41.9 Anxiety disorder, unspecified; R63.0 Anorexia; R53.1 Weakness; M06.9 Rheumatoid arthritis, unspecified; J44.9 Chronic obstructive pulmonary disease, unspecified; E78.00 Pure hypercholesterolemia, unspecified; R50.81 Fever presenting with conditions classified elsewhere; D70.3 Neutropenia due to infection; K11.20 Sialoadenitis, unspecified; L27.0 Generalized skin eruption due to drugs and medicaments taken internally; D70.1 Agranulocytosis secondary to cancer chemotherapy; T45.1X5A Adverse effect of antineoplastic and immunosuppressive drugs, initial encounter; B00.1 Herpesviral vesicular dermatitis; R22.1 Localized swelling, mass and lump, neck; Z87.891 Personal history of nicotine dependence; Z90.710 Acquired absence of both cervix and uterus
CPT/HCPCS: 36430; 36569; 36590; 38222; 70450; 70491; 71045; 76937; 77012; 80048; 80053; 80076; 80202; 81001; 82272; 82565; 83010; 83605; 83615; 83735; 84100; 84132; 84550; 85007; 85027; 85097; 85610; 86644; 86850; 86900; 86901; 86920; 86922; 87040; 87071; 87086; 87186; 87205; 87493; 87804; 88184; 88185; 88237; 88264; 88280; 88305; 88311; 88313; 93005; 93306; 93971; 94664; 99152; 99153; C1830; J0131; J0780; J1100; J1442; J1626; J1642; J2060; J2175; J2185; J2248; J2250; J2405; J2765; J2997; J3010; J3370; J3475; J3480; J7030; J7040; J7050; J7512; J9100; J9185; J9211; P9037; P9040; Q9967